=== PATIENT | female | born 1950 | race Caucasian/White ===

== ENCOUNTER 2020-09-17 01:07 | Emergency (ER) | payer MEDICARE, OTHER, SELFPAY ==
[2020-09-17 01:08] VITALS: BP 221/116; PULSE 62; RESP 18; TEMP 36.7; O2SAT 99; BMI 33.5
--- NOTE | 2020-09-17 01:21 | EKG12_ITS ---
Test Reason : CP Blood Pressure : / mmHG Vent. Rate : 064 BPM Atrial Rate : 064 BPM P-R Int : 116 ms QRS Dur : 130 ms QT Int : 444 ms P-R-T Axes : 088 -20 024 degrees QTc Int : 458 ms Normal sinus rhythm Right bundle branch block Septal infarct , age undetermined , cannot be excluded Abnormal ECG Confirmed by CROW PANIAGUA, DEMETRIO ([id number]), newspaper editor managing KEYA SALAZAR ([id number]) on 09/19/2020 9:21:52 AM Referred By: CORINE Confirmed By:DEMETRIO MARIA MD
--- NOTE | 2020-09-17 01:21 | RAD_ITS ---
STUDY: X-RAY CHEST REASON FOR EXAM: Female, 70 years old. chest pain TECHNIQUE: 1 view COMPARISON: None. FINDINGS: Cardiomediastinal silhouette is unremarkable. Costophrenic angles are sharp. Lungs are clear. The trachea is midline. There is no pneumothorax. The bones are grossly intact. RAD/Chest 1 View (Portable) IMPRESSION: No acute cardiopulmonary process. Electronically Signed: John Marin MD at 2:31 EDT Tel , Service support ,
[2020-09-17] MEDS: Mag Hydrox/Al Hydrox/Simeth 30 ML UDC PO (01:28)
[2020-09-17 01:30] LABS: Absolute Lymphocyte Count 2.57 X10^3/uL (0.83-4.51); Absolute Neutrophil Count 6.3 X10^3/uL (2.0-7.7); Basophil# 0.05 X10^3/uL; Basophil% 0.5 % (0-1); Eosinophil# 0.25 X10^3/uL; Eosinophils% 2.5 % (0-5); Hematocrit 41.2 % (37-47); Hemoglobin 13.7 g/dL (12.0-15.0); Lymphocyte # 2.57 X10^3/ul (0.83-4.51); Lymphocyte % 25.6 % (19-41); Mean Corp Hgb Conc 33.3 g/dL (32-36); Mean Corpuscular Hgb 28.7 pg (27.0-32.0); Mean Corpuscular Volume 86.2 fL (81-99); Mean Platelet Vol. 10.7 fl (6.2-12.0); NRBC Flagged by Analyzer 0 % (0-5); Neutrophil # 6.33 X10^3/uL (2.7-7.7); Neutrophil % 63.1 % (47-70); Platelet Count 265 K/mm3 (150-450); RBC Distribution Width CV 12.3 % (11.6-14.6); RBC Distribution Width SD 38.7 fl (35.1-43.9); Red Blood Count 4.78 M/mm3 (4.2-5.4)
--- NOTE | 2020-09-17 01:41 | EDS_ITS ---
HPI History of Present Illness Chief Complaint: Chest Pain Informant: patient Narrative Narrative: 70-year-old female presents the emergency room with epigastric pain. Symptoms awoke her out of bed at approximately 0030 hours. She describes it as a pain. She cannot clarify it anymore. She feels it slightly in the back. She states that she first thought it was indigestion and nausea but she does not feel that now. Patient had a [employer] blizzard at around 2030 hrs. Patient notes a history of hypertension. No other significant medical problems. She takes lisinopril 10 mg daily. [facility] Medical History Hypertension Home Medications lisinopril 10 mg PO DAILY 09/17/20 [History Last Taken Unknown] Allergy/AdvReac Type Severity Reaction Status Date / Time No Known Allergies Allergy Verified 02/12/17 14:04 Social History (Updated 09/17/20 @ 01:[address] Francisco Gong DO) Smoking Status: Never smoker substance use type: does not use ROS ROS ED Constitutional Constitutional ED: Denies chills or weight loss Eyes Eyes: Denies change in vision or diplopia ENT ENT ED: Denies ear pain, rhinorrhea or sore throat Cardiovascular Cardiovascular: Denies chest pain, orthopnea, palpitations or racing heartbeat Respiratory/Chest Respiratory/Chest: Denies cough, dyspnea or orthopnea Gastrointestinal Gastrointestinal: Reports abdominal pain; Denies diarrhea, nausea or vomiting Genitourinary Genitourinary ED: Denies dysuria, hematuria or urinary frequency Musculoskeletal Musculoskeletal: Denies arthralgias or myalgias Integumentary Denies abscess or rash Neurologic Neurologic: Denies headache(s) or weakness Psychiatric Psychiatric: Denies anxiety, depression, suicidal ideation or suicidal thoughts Endocrine Endocrinology: Denies polydipsia, polyphagia or polyuria Allergic/Immunologic Allergic/Immunologic ED: Denies mouth swelling, tongue swelling or urticaria EXAM Physical Exam Const Vital Signs: 09/17/20 01:08 09/17/20 02:17 09/17/20 03:06 Temperature 98.0 F Temperature Source Temporal Pulse Rate 62 59 L 71 Respiratory Rate 18 18 18 Blood Pressure 221/116 H 186/76 H 132/58 H Blood Pressure Mean 151 112 82 Pulse Ox 99 96 97 Oxygen Delivery Method Room Air Room Air Room Air 09/17/20 03:41 Temperature 96.9 F L Temperature Source Temporal Pulse Rate 65 Respiratory Rate Blood Pressure 138/67 H Blood Pressure Mean 90 Pulse Ox 97 Oxygen Delivery Method Room Air Positive well nourished and well developed General Appearance ED: well developed HEENT Reports normocephalic, head/scalp atraumatic and moist mucous membranes Eyes PERRL and EOMs intact bilaterally Neck no lymphadenopathy, supple and no JVD Resp normal respiratory effort and clear to auscultation bilaterally Cardio regular rate, regular rhythm and no murmurs GI normal to inspection, nondistended, normoactive bowel sounds and non-tender Palpation: soft Back/Spine no CVA tenderness and normal ROM Extremity normal to inspection General Extremety ED: Negative for edema General Extremity: Negative for edema Neuro oriented x3 and CN's II-XII intact bilaterally Sensorium / Orientation: alert Motor Exam: strength 5/5 throughout Psych mental status grossly normal Mood & Affect: Negative for depressed or tearful Skin no rashes or lesions noted and no wounds Heart Score History: Slightly/Non-Suspicious ECG: Normal Age: >/= 65 years Risk Factors: 1 or 2 Risk Factors Troponin: </= Normal Limit Score: 3 MDM MDM MDM Narrative Medical decision making narrative: My interpretation of the patient's chest x- ray is no acute process. D-dimer is negative. CBC BMP is normal. 2 sets of cardiac enzymes are negative. GI cocktail did not change the patient's symptoms. The patient's blood pressure came down to around 180 systolic. I gave her a 10 mg dose of hydralazine and she is down to 132/58. Patient reports that she is having worsening epigastric discomfort. Minimally tender just under the xiphoid process. No guarding or rebound. The abdomen is soft. Abdomen does not appear surgical. There is no right upper quadrant tenderness. There is no radiation of the pain. She is not having nausea. She wonders if it was her ice cream but that had a lot of peanuts in it. I will give her a dose of Bentyl. Patient is also concerned that she is having a fever. However her temperature is 96.9. Patient was given return instructions as well as follow-up for the hypertension. Lab Data Attestation: I reviewed the patient's lab results. Labs: Laboratory Results - last 24 hr 07/02/2609/17/20 09/17/20 01:18 01:18 01:27 WBC 10.0 RBC 4.78 Hgb 13.7 Hct 41.2 MCV 86.2 MCH 28.7 MCHC 33.3 RDW Std Deviation 38.7 RDW Coeff of Lance 12.3 Plt Count 265 MPV 10.7 Immature Gran % (Auto) 0.300 Neut % (Auto) 63.1 Lymph % (Auto) 25.6 Dukes % (Auto) 8.0 Eos % (Auto) 2.5 Baso % (Auto) 0.5 Absolute Neuts (auto) 6.3 Absolute Lymphs (auto) 2.57 Nucleated RBC % 0 D-Dimer Quant (PE/DVT) 0.38 Sodium 140 Potassium 3.9 Chloride 103 Carbon Dioxide 30.0 Anion Gap 7 BUN 19 H Creatinine 1.06 H Estim Creat Clear Calc 50.53 Est GFR (MDRD) Af Amer 66 Est GFR (MDRD) Non-Af 55 L BUN/Creatinine Ratio 17.9 Glucose 115 H Calcium 10.0 Troponin I High Sens 7.2 09/17/20 03:00 WBC RBC Hgb Hct MCV MCH MCHC RDW Std Deviation RDW Coeff of Lance Plt Count MPV Immature Gran % (Auto) Neut % (Auto) Lymph % (Auto) Dukes % (Auto) Eos % (Auto) Baso % (Auto) Absolute Neuts (auto) Absolute Lymphs (auto) Nucleated RBC % D-Dimer Quant (PE/DVT) Sodium Potassium Chloride Carbon Dioxide Anion Gap BUN Creatinine Estim Creat Clear Calc Est GFR (MDRD) Af Amer Est GFR (MDRD) Non-Af BUN/Creatinine Ratio Glucose Calcium Troponin I High Sens 9.0 Radiography Diagnostic Testing: Radiology Impression Chest X-Ray 09/17/20 01:21 IMPRESSION: No acute cardiopulmonary process. Electronically Signed: John Marin MD at 2:31 EDT Tel , Service support , EKG Initial EKG: Attestation: I personally reviewed and interpreted this EKG as follows: Comments: EKG demonstrates a normal sinus rhythm at a rate of 64. Noted right bundle branch block. Discharge Plan Triage Chief Complaint: Chest Pain ED Provider: Francisco Gong Dx/Rx/DC Orders Clinical Impression: Abdominal pain, Hypertensive urgency Instructions: Abdominal Pain, ED High Blood Pressure Hypertension Prescriptions: No Action lisinopril 10 mg Tablet 10 mg PO DAILY RF: 0 Primary Care Provider: Care Physician,No Primary Referrals: Parth Oropeza III, MD [STAFF PHYSICIAN] - 1 Week Care Physician,No Primary [Primary Care Provider] - Activity Restrictions/Additional Instructions: I would encourage you to monitor your blood pressure over the next week. If it continues to be high I would recommend you take those numbers to your family doctor. Return if worsening or any concerns. Disposition Disposition: Home, Self Care
[2020-09-17 01:49] LABS: Anion Gap 7 (5-15); BUN 19 mg/dL (7-18); BUN/Creat Ratio 17.9 RATIO (10-20); Chloride 103 mmol/L (98-107); Creatinine, Serum 1.06 mg/dL (0.55-1.02); EST Glomerular Filtration Rate 55 mL/min (>60); Est Glom Filt Rate - Afr Amer 66 mL/min (>60); Estimated Creatinine Clearance 50.53 ml/min; Glucose 115 mg/dL (74-106); Potassium 3.9 mmol/L (3.5-5.1); Sodium Level 140 mmol/L (136-145); Troponin-I HS 7.2 pg/mL (3.0-53.7)
[2020-09-17 01:49] LABS: D-Dimer Quantitative (DVT/PE) 0.38 FEU/ug/m (0.27-0.49)
[2020-09-17 02:17] VITALS: BP 186/76; PULSE 59; RESP 18; O2SAT 96
[2020-09-17] MEDS: hydrALAZINE 20 MG/ML Vial 10 MG IV (02:33)
[2020-09-17 03:06] VITALS: BP 132/58; PULSE 71; RESP 18; O2SAT 97
[2020-09-17 03:41] VITALS: BP 138/67; PULSE 65; TEMP 36.1; O2SAT 97
[2020-09-17] MEDS: Dicyclomine 10 MG Capsule 20 MG PO (03:43)
== END 2020-09-17 03:55 | disposition home or self-care (01) ==
PROVIDERS: Emergency Provider Emergency Medicine
DX: R10.13 Epigastric pain (principal); I16.0 Hypertensive urgency; I10 Essential (primary) hypertension; Z79.899 Other long term (current) drug therapy
CPT/HCPCS: 71045; 80048; 84484; 85025; 85379; 93005; 96374; 99285

== ENCOUNTER 2020-09-23 22:22 | Inpatient (IN) | payer MEDICARE, OTHER, SELFPAY ==
--- NOTE | 2020-09-23 00:20 | RAD_ITS ---
STUDY: X-RAY CHEST REASON FOR EXAM: Female, 70 years old. chest pain TECHNIQUE: Single AP portable view of the chest. COMPARISON: 09/17/2020. FINDINGS: There are subtle hazy density within the left lower lobe, cannot exclude focal pneumonia. There is no demonstrated pleural abnormality. Normal size heart. Normal mediastinum and lali. Normal visualized pulmonary arteries. Normal visualized aortic arch and descending thoracic aorta. Normal visualized thoracic spine. Normal visualized ribs, clavicles, and shoulders. There is no demonstrated abnormality of the visualized soft tissue structures of the upper abdomen. RAD/Chest 1 View (Portable) IMPRESSION: Cannot exclude focal pneumonia in the left lower lobe, otherwise no acute process. Clinical correlation recommended. Electronically Signed: Shima Vallecillo MD at 3:49 EDT , Service support ,
[2020-09-23 22:23] VITALS: BP 167/88; PULSE 65; RESP 18; TEMP 36.9; O2SAT 99; BMI 33.2
--- NOTE | 2020-09-23 22:33 | EKG12_ITS ---
Test Reason : CP Blood Pressure : / mmHG Vent. Rate : 066 BPM Atrial Rate : 066 BPM P-R Int : 168 ms QRS Dur : 110 ms QT Int : 418 ms P-R-T Axes : 072 -23 -05 degrees QTc Int : 438 ms Sinus rhythm with Premature atrial complexes Right bundle branch block Abnormal ECG Confirmed by CROW PANIAGUA, DEMETRIO ([id number]), art editor KEYA SALAZAR ([id number]) on 09/26/2020 12:32:05 PM Referred By: RANDALL Confirmed By:DEMETRIO MARIA MD
[2020-09-23 23:10] VITALS: BP 183/67; PULSE 63; RESP 19; O2SAT 99
--- NOTE | 2020-09-23 23:30 | EKG12_ITS ---
Test Reason : REPEAT CP Blood Pressure : / mmHG Vent. Rate : 062 BPM Atrial Rate : 062 BPM P-R Int : 146 ms QRS Dur : 116 ms QT Int : 424 ms P-R-T Axes : 078 -14 009 degrees QTc Int : 430 ms Normal sinus rhythm Incomplete right bundle branch block Confirmed by CROW PANIAGUA, DEMETRIO ([id number]), offline editor KEYA SALAZAR ([id number]) on 09/26/2020 12:28:46 PM Referred By: RANDALL Confirmed By:DEMETRIO MARIA MD
--- NOTE | 2020-09-23 23:37 | EDS_ITS ---
HPI HPI - GI History of Present Illness Chief Complaint: Chest Pain Detail of Chief Complaint: Epigastric abdominal pain not chest pain. Informant: patient Abdominal Pain/Flank Pain Onset: Today Timing: Intermittent Quality: Burning, Sharp and Stabbing Location: Epigastric Current Severity: Mild Maximum Severity: Mild Nausea/Vomiting/Emesis GI Symptom: Negative for Nausea and Vomiting Diarrhea/Melena/Hematochezia GI Symptom: Negative for Diarrhea and Melena Associated Symptoms Associated Symptoms: Negative for Dysuria, Frequency and Hematuria Narrative Narrative: 70-year-old female healthy history of hypertension. Complaining of epigastric dull pain that began at 8:00 tonight after she had ice cream. States she really did not eat a dinner tonight. Pain goes into her back. She was seen within the last week in the emergency department for chest pain that had a negative work-up. She denies any nausea vomiting or diarrhea. No fever or chills. No melena or hematemesis. No recent weight change. Never had any a bdominal surgeries. Prior similar symptoms: Yes Recent Illness/Hospitalization: No PFSH PFSH Medical History Chest pain CPAP (continuous positive airway pressure) dependence Hypertension Non-smoker Sleep apnea Home Medications lisinopril 5 mg PO DAILY 09/17/20 [History Last Taken Unknown] Multivit W/Fluoride 1 tab PO/SL DAILY 09/23/20 [History Last Taken Unknown] ferrous sulfate [Iron (ferrous sulfate)] 650 mg PO DAILY 09/23/20 [History Last Taken Unknown] Allergy/AdvReac Type Severity Reaction Status Date / Time No Known Allergies Allergy Verified 09/23/20 22:26 Social History Smoking Status: Never smoker substance use type: does not use ROS ROS ED ROS Narrative Epigastric abdominal pain without nausea, vomiting or diarrhea. Review of Systems ROS Unobtainable: Denies due to encephalopathy Constitutional Constitutional ED: Denies chills or fever(s) ENT ENT ED: Denies ear pain or sore throat Cardiovascular Cardiovascular: Denies chest pain Respiratory/Chest Respiratory/Chest: Denies dyspnea Gastrointestinal Gastrointestinal: Reports abdominal pain; Denies constipation, diarrhea, melena, nausea or vomiting Genitourinary Genitourinary ED: Denies dysuria or hematuria Musculoskeletal Musculoskeletal: Denies myalgias Integumentary Denies rash Neurologic Neurologic: Denies headache(s) Psychiatric Psychiatric: Denies depression Endocrine Endocrinology: Denies polyuria Hematologic/Lymphatic Hematologic/Lymphatic: Denies easy bruising Allergic/Immunologic Allergic/Immunologic ED: Denies urticaria EXAM Physical Exam Narrative Exam Narrative: Well-appearing older female vital signs are stable afebrile. She does not look septic or toxic. She is in no acute distress. H EENT exam is unremarkable. Lungs clear to auscultation. Heart regular rate and rhythm no murmur. Abdomen soft nondistended normal bowel sounds no peritoneal signs. Epigastric tenderness. Right upper and right lower quadrants are unremarkable Right pulsatile mass. No signs of obstruction. Patient moving all 4 extremities. Calves nontender no edema. Back nontender. Neurologically she is awake alert with no focal motor deficits. Const Vital Signs: 09/23/20 22:23 09/23/20 23:10 09/23/20 23:49 Temperature 98.5 F Temperature Source Temporal Pulse Rate 65 63 Respiratory Rate 18 19 H Respiratory Effort Normal Blood Pressure 167/88 H 183/67 H Blood Pressure Mean 114 105 Pulse Ox 99 99 99 Oxygen Delivery Method Room Air Room Air Room Air 09/24/20 00:00 09/24/20 01:00 09/24/20 02:00 Temperature Temperature Source Pulse Rate 69 62 69 Respiratory Rate 22 H 25 H 18 Respiratory Effort Blood Pressure 176/72 H 173/61 H 159/78 H Blood Pressure Mean 106 98 105 Pulse Ox 95 97 97 Oxygen Delivery Method Room Air Room Air Room Air Positive well nourished and well developed; Negative for unkempt General Appearance ED: well developed and NAD; Negative for unkempt HEENT Reports moist mucous membranes normocephalic and atraumatic; Negative for trauma or tenderness Eyes PERRL and EOMs intact bilaterally Neck no lymphadenopathy, supple and no JVD General: Negative for tenderness Resp normal respiratory effort and clear to auscultation bilaterally Auscultation: Negative for rales, rhonchi or wheezes Cardio regular rate, regular rhythm, S1 normal heart sound, S2 normal heart sound and no murmurs GI non-distended and no masses; Negative for non-tender GI Narrative: Epigastric tenderness only. No pulsatile mass. Inspection: Negative for abdominal distention Auscultation: normoactive bowel sounds Palpation: soft and tender; Negative for guarding, rigid or rebound tenderness present Back/Spine no CVA tenderness Extremity full ROM General Extremety ED: Negative for edema or tenderness General Extremity: Negative for edema Neuro No CN's II-XII intact bilaterally and moves all extremities Sensorium / Orientation: alert, oriented to person, oriented to place and oriented to time; Negative for orientation impaired, confused, lethargic or stuporous Motor Exam: strength 5/5 throughout; Negative for general weakness Psych mental status grossly normal and thought process normal Appearance: Negative for unkempt Skin Lesions: no lesions Rashes: no rashes MDM MDM MDM Narrative Medical decision making narrative: Older female in epigastric abdominal pain. Undergo a cardiac and abdominal work-up including abdominal CT. Repeat exam patient is doing well at 5 AM. She still does have tenderness in the right upper quadrant. Given her findings and concern for acute cholecystitis. Patient be started on IV antibiotics I have Dr. Buffy Flynn of general surgery on page for admission. I have discussed all this with the patient and her . Lab Data Attestation: I reviewed the patient's lab results. Lab results narrative: White count of 14.8. Hemoglobin 13. Electrolytes unremarkable gap 6 creatinine 1.1. Liver enzymes are unremarkable. Lipase 150. Troponin 5. EKGs x2 unremarkable. Chest x-ray unremarkable read by myself and the radiologist. CAT scan concerning for acute cholecystitis which would go along with the patient's symptoms. Labs: Laboratory Results - last 24 hr 09/23/20 09/23/20 23:44 23:44 WBC 14.8 H RBC 4.74 Hgb 13.6 Hct 41.1 MCV 86.7 MCH 28.7 MCHC 33.1 RDW Std Deviation 39.3 RDW Coeff of Lance 12.4 Plt Count 255 MPV 10.9 Immature Gran % (Auto) 0.300 Neut % (Auto) 82.4 H Lymph % (Auto) 10.8 L [place] % (Auto) 5.6 Eos % (Auto) 0.5 Baso % (Auto) 0.4 Absolute Neuts (auto) 12.2 H Absolute Lymphs (auto) 1.60 Nucleated RBC % 0 Sodium 137 Potassium 4.1 Chloride 102 Carbon Dioxide 29.0 Anion Gap 6 BUN 21 H Creatinine 1.18 H Estim Creat Clear Calc 45.39 Est GFR (MDRD) Af Amer 58 L Est GFR (MDRD) Non-Af 48 L BUN/Creatinine Ratio 17.8 Glucose 124 H Calcium 9.9 Total Bilirubin 0.30 Direct Bilirubin 0.13 AST 24 ALT 25 Alkaline Phosphatase 79 Troponin I High Sens 5.8 Total Protein 8.3 H Albumin 4.0 Globulin 4.3 H Lipase 150 Radiography Diagnostic Testing: Radiology Impression Chest X-Ray 09/23/20 00:20 IMPRESSION: Cannot exclude focal pneumonia in the left lower lobe, otherwise no acute process. Clinical correlation recommended. Electronically Signed: Shima Vallecillo MD at 3:49 EDT , Service support , Abdomen/Pelvis CT 09/24/20 23:36 IMPRESSION: Multiple gallstones with fluid surrounding the gallbladder mild thickening of the wall raising the concern for acute cholecystitis. Recommend follow-up with HIDA scan. Decompression of the colon with thickening of the wall, nonspecific. Difficult to exclude colitis in the appropriate clinical context. Electronically Signed: Shima Vallecillo MD at 3:53 EDT , Service support , Portable 1 view chest x-ray is unremarkable read by myself. Radiologist mentions questionable left lower lobe infiltrate. That is not consistent with the patient's history, physical exam and I do not believe that to be true on my interpretation of the x-ray. Rhythm Strip Rhythm Strip: Sinus Rhythm Rate: 66 Ectopy: PAC(s) EKG Initial EKG: Attestation: I personally reviewed and interpreted this EKG as follows: Interpretation: Sinus Rhythm and No Acute Injury Pattern Comments: Normal sinus rhythm rate of 66 no acute signs of IL or ischemia. Prior EKG tracings: not available for review Follow-up EKG: Attestation: I personally reviewed and interpreted this EKG as follows: Interpretation: Sinus Rhythm and No Acute Injury Pattern Comments: Repeat EKG showed a normal sinus rhythm rate of 62 was unchanged from the first. Discharge Plan Dx/Rx/DC Orders Clinical Impression: Abdominal pain, Acute calculous cholecystitis, Leukocytosis Disposition Disposition: [facility] Care [facility]
[2020-09-23 23:49] VITALS: O2SAT 99
[2020-09-23 23:49] LABS: Absolute Neutrophil Count 12.2 X10^3/uL (2.0-7.7); Basophil# 0.06 X10^3/uL; Basophil% 0.4 % (0-1); Eosinophil# 0.07 X10^3/uL; Eosinophils% 0.5 % (0-5); Hematocrit 41.1 % (37-47); Hemoglobin 13.6 g/dL (12.0-15.0); Lymphocyte % 10.8 % (19-41); Mean Corp Hgb Conc 33.1 g/dL (32-36); Mean Corpuscular Hgb 28.7 pg (27.0-32.0); Mean Corpuscular Volume 86.7 fL (81-99); Mean Platelet Vol. 10.9 fl (6.2-12.0); Monocyte# 0.83 X10^3/uL; Monocyte% 5.6 % (0-10); NRBC Flagged by Analyzer 0 % (0-5); Neutrophil # 12.22 X10^3/uL (2.7-7.7); Neutrophil % 82.4 % (47-70); Platelet Count 255 K/mm3 (150-450); RBC Distribution Width CV 12.4 % (11.6-14.6); RBC Distribution Width SD 39.3 fl (35.1-43.9); Red Blood Count 4.74 M/mm3 (4.2-5.4); White Blood Count 14.8 K/mm3 (4.4-11.0)
[2020-09-23] MEDS: 0.9% Normal Saline 1,000 ML 1000 ML IV (23:51)
[2020-09-24] VITALS (12 sets, daily range): BP systolic 113–176; BP diastolic 53–78; PULSE 54–78; RESP 14–25; TEMP 36.6–37.1; O2SAT 93–100; BMI 33.5
[2020-09-24] MEDS: morphine 8 MG/ML Syringe IV (00:01)
[2020-09-24] MEDS: Ondansetron 4 MG/2 ML Vial IV (00:01)
[2020-09-24 00:11] LABS: AST(SGOT) 24 U/L (15-37); Alanine Aminotransfer ALT/SGPT 25 U/L (13-56); Alkaline Phosphatase 79 U/L (45-117); Anion Gap 6 (5-15); BUN 21 mg/dL (7-18); BUN/Creat Ratio 17.8 RATIO (10-20); Bilirubin, Direct 0.13 mg/dL (0.00-0.30); Calcium,Total 9.9 mg/dL (8.5-10.1); Chloride 102 mmol/L (98-107); Creatinine, Serum 1.18 mg/dL (0.55-1.02); EST Glomerular Filtration Rate 48 mL/min (>60); Est Glom Filt Rate - Afr Amer 58 mL/min (>60); Estimated Creatinine Clearance 45.39 ml/min; Globulin 4.3 g/dL (2.2-4.2); Glucose 124 mg/dL (74-106); Lipase 150 U/L (73-393); Potassium 4.1 mmol/L (3.5-5.1); Protein, Total 8.3 g/dL (6.4-8.2); Sodium Level 137 mmol/L (136-145); Troponin-I HS 5.8 pg/mL (3.0-53.7)
[2020-09-24] MEDS: 0.9% Normal Saline 1,000 ML 125 ML IV ×2 (06:49→16:16)
--- NOTE | 2020-09-24 07:59 | PCM.HP.BLA ---
History and Physical Date of Admission: 09/24/20 CHIEF COMPLAINT: abdominal pain HISTORY OF PRESENT ILLNESS: 70 y/o WF presents to [facility] ED with complaint of epigastric abdominal pain. She had similar episode several days ago after eating ice cream. She states that she had this episode of pain after eating ice cream. She did not know that she had gallstones before. Workup in the ED - elevated WBC of 14.8k with left shift of differential. Also elevated BUN/creat of 21 and 1.18. Normal LFT[address] scan obtained which reveals multiple gallstones, some pericholecystic fluid, mild wall thickening She is admitted to the hospital for acute cholecystitis. 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 Heme - denies spontaneous/prolonged bleeding Psych - denies hallucinations PHYSICAL EXAMINATION: Vitals - BP 162/60 HR 78 RR 17 Temp 98.7F General - WD/WN WF in no apparent distress, alert and oriented HEENT - no evidence of infection/trauma Resp - normal respiratory excursion, no adventitial sounds noted, no labored breathing noted Cardiac - regular Abdomen - tender in epigastrium but no peritoneal signs Extremities - no pitting edema noted Neuro - non foca Psych - calm and appropriate IMPRESSION: cholelithiasis RUQ abdominal pain leukocytosis DISCUSSION/PLAN: Patient presents with acute cholecystitis/cholelithiasis. I have recommended laparoscopic cholecystectomy, possible cholangiograms to patient. I have described the procedure to her. I have counseled her as to the risks of the procedure, including but not limited to: infection, bleeding, injury to any blood vessels/nerves, injury to bowel and/or bladder, injury to any intraabdominal organs such as the liver/spleen, injury to the bile ducts, bile leakage, intraabdominal abscess/bleeding, incisional trocar hernias, wound infections, etc. - she understands. She wishes to proceed. I have answered all her questions and she has no further questions. She will be placed on the schedule for surgery tomorrow afternoon. Continue IV antibiotics Regular diet, but NPO 8 hr prior to procedure.
[2020-09-24] MEDS: Lisinopril 5 MG Tablet PO (10:05)
--- NOTE | 2020-09-24 10:10 | CASEMGMT ---
Social Work Note Per bus system operator questions, pt has completed HCPOA and LW, has not provided copy to [facility] and pt is unable to bring in copies. Frida Bowden BUILDING SERVICES ENGINEER, BUSINESS SERVICES SALES REPRESENTATIVE
[2020-09-24] MEDS: Acetaminophen 325 MG Tablet 650 MG PO (16:16)
[2020-09-24] MEDS: HYDROcodone Bitartrate/Apap 5/325 Tablet PO (22:12)
--- NOTE | 2020-09-24 23:36 | CT_ITS ---
STUDY: CT ABDOMEN AND PELVIS WITH CONTRAST REASON FOR EXAM: Female, 70 years old. epigastric abd pain RADIATION DOSAGE (If Supplied By Facility): CTDIvol = ( 18.39 ) mGy, DLP = ( 1173.62 ) mGycm TECHNIQUE: Transaxial images were obtained from the dome of the diaphragm to the symphysis pubis without oral contrast. IV 100mL [id number]-300 was administered. Sagittal and coronal images were reconstructed. Individualized dose optimization techniques were used for this CT. COMPARISON: None. FINDINGS: The visualized lung bases are unremarkable. The visualized portions of the heart are within normal limits. Normal liver. The gallbladder is distended with multiple stones, largest averaging approximately 2.1 cm. There is fluid surrounding the gallbladder with mild thickening of the wall for acute cholecystitis. Normal spleen. Normal pancreas. Normal bilateral adrenal glands. Normal right kidney. Normal left kidney. Normal visualized stomach. Normal small intestine. There are areas of the colon 20 ascending portion and descending colon with borderline thickening of the wall and decompression, nonspecific. Cannot exclude mild colitis. The appendix is visualized and appears normal. Normal abdominal aorta. Normal inferior vena cava. Normal retroperitoneum. Normal urinary bladder. Uterus is anteverted. Normal abdominal wall. There are diffuse degenerative changes of the visualized lumbar spine. CT/Abdomen/Pelvis W IV Cont ONLY IMPRESSION: Multiple gallstones with fluid surrounding the gallbladder mild thickening of the wall raising the concern for acute cholecystitis. Recommend follow-up with HIDA scan. Decompression of the colon with thickening of the wall, nonspecific. Difficult to exclude colitis in the appropriate clinical context. Electronically Signed: Shima Vallecillo MD at 3:53 EDT , Service support ,
[2020-09-25] VITALS (13 sets, daily range): BP systolic 123–160; BP diastolic 55–97; PULSE 56–98; RESP 16–18; TEMP 36.2–37.2; O2SAT 89–100; BMI 33.5
[2020-09-25] MEDS: 0.9% Normal Saline 1,000 ML 125 ML IV ×3 (02:15→17:59)
[2020-09-25 05:45] LABS: Absolute Lymphocyte Count 1.77 X10^3/uL (0.83-4.51); Absolute Neutrophil Count 4.8 X10^3/uL (2.0-7.7); Basophil# 0.03 X10^3/uL; Basophil% 0.4 % (0-1); Eosinophil# 0.19 X10^3/uL; Eosinophils% 2.6 % (0-5); Hematocrit 36.5 % (37-47); Hemoglobin 11.9 g/dL (12.0-15.0); Lymphocyte # 1.77 X10^3/ul (0.83-4.51); Lymphocyte % 24.1 % (19-41); Mean Corp Hgb Conc 32.6 g/dL (32-36); Mean Corpuscular Hgb 28.8 pg (27.0-32.0); Mean Corpuscular Volume 88.4 fL (81-99); Mean Platelet Vol. 11.4 fl (6.2-12.0); Monocyte# 0.58 X10^3/uL; Monocyte% 7.9 % (0-10); NRBC Flagged by Analyzer 0 % (0-5); Neutrophil # 4.75 X10^3/uL (2.7-7.7); Neutrophil % 64.6 % (47-70); Platelet Count 202 K/mm3 (150-450); RBC Distribution Width CV 12.5 % (11.6-14.6); RBC Distribution Width SD 40.3 fl (35.1-43.9); Red Blood Count 4.13 M/mm3 (4.2-5.4); White Blood Count 7.4 K/mm3 (4.4-11.0)
[2020-09-25 06:20] LABS: Anion Gap 3 (5-15); BUN 16 mg/dL (7-18); BUN/Creat Ratio 14.5 RATIO (10-20); Calcium,Total 7.9 mg/dL (8.5-10.1); Chloride 110 mmol/L (98-107); EST Glomerular Filtration Rate 52 mL/min (>60); Est Glom Filt Rate - Afr Amer 63 mL/min (>60); Estimated Creatinine Clearance 48.69 ml/min; Glucose 101 mg/dL (74-106); Potassium 4.1 mmol/L (3.5-5.1); Sodium Level 140 mmol/L (136-145)
--- NOTE | 2020-09-25 10:10 | CASEMGMT ---
RN CM Face to Face with patient for initial transition planning/care coordination assessment. RN CM introduced self and role at [facility]. Patient lying in bed, alert and oriented. Patient willing to participate in assessment and is able to answer all questions appropriately. Care providers, pharmacy, and demographics verified. Patient wishes to discharge home, denies need for home health at this time. Patient states she has no further needs or concerns at this time. CM to follow for discharge planning needs that may arise. PCP: Artemio Specialists: Ishmael Ortiz Pharmacy: [facility] Insurance: [employer], [employer] Prescription Benefit: yes Living Will/HPOA: yes, Uli Mott LNOK: Living Arrangements: Patient lives with in a single story home with 2 steps and railing to enter the home. Patient states she is independent at home. Transportation: self/ DME/HHC: Patient states she has cane, walker, and cpap. Patient denies previous HHC or SNF. Disposition Plan: Patient to discharge home with family support and follow-up plans in place. Frida MONREAL, RN, CM
--- NOTE | 2020-09-25 14:00 | NURSING ---
1330, off unit via bed for surgery. spouse with pt
--- NOTE | 2020-09-25 14:50 | GALL_PTH ---
PATIENT: MICHELLE RAMIREZ LOC: MS3 U#:[id number] AGE/SX: 70/F ROOM: DE312 RE09/24/[address]: Dr. Buffy Flynn MD : [id number] BED: 1 DIS: 09/26/2020 SPEC #: [id number] RECD: 09/26/20 09:23 STATUS: NEVIN RETeresa #: [id number] SID: 09/25/20 14:[address]: Buffy Flynn DEPT: SURGICAL PATHOLOGY RECD BY: Stephanie Hoang ENTERED: 09/26/20 10:45 SP TYPE: KELSEY SOUZA DR: Navdeep Ulloa MD Tissues: Gallbladder, NOS Procedures: Surgery Specimen Level III HEADER OPERATION: Laparoscopic cholecystectomy PRE-OP DIAGNOSIS: Acute cholecystitis, cholelithiasis TISSUE SUBMITTED: Gallbladder MICROSCOPIC DIAGNOSIS Gallbladder, cholecystectomy: Acute and chronic cholecystitis and cholelithiasis. SJ:junior 09/27/2020 MICROSCOPIC DESCRIPTION Slides are reviewed. GROSS DESCRIPTION Received is one container labeled with the patient's name and designated gallbladder. The specimen consists of a previously, partially opened gallbladder measuring 10 cm in length and up to 3 cm in diameter. The external surface is pink-balderas, smooth and glistening for the most part. Focally it is granular, hemorrhagic and contains cautery artifact. No bile is identified. Present in the container and also in the gallbladder are multiple, multifaceted to irregular brownish-black stones measuring in aggregate 3.5 x 3 x 1.5 cm and 0.5 to 2 cm in greatest dimension. The gallbladder wall measures up to 0.3 cm in thickness. Barbering Instructor sections from the gallbladder and the cystic duct are submitted in one cassette. / SJ:junior 09/26/20 TC:2 [facility]: [id number]
[2020-09-25] MEDS: Lactated Ringers 1,000 ML 100 ML IV (15:00)
--- NOTE | 2020-09-25 17:01 | OP.PCM_ITS ---
Report of Operation Date of Procedure: 09/25/20 Pre-Operative Diagnosis: cholelithiasis, acute cholecystitis Post-Operative Diagnosis: same Surgery/Procedure Performed:: laparoscopic cholecystectomy Description of Surgical Findings:: acute cholecystitis with thickened gallbladder wall Surgeon: Buffy Flynn stocking inspector: Anika Cheng Type of Anesthesia: General Anesthesiologist: Malik Heath Specimen's removed: gallbladder and contents Drains: none Estimated Blood Loss (mL): 20 ml Fluids Replaced: 1000 ml RL Description of Procedure: After informed consent was given, the patient was br ought to the Operating Room. Appropriate time out protocol was followed. The patient was placed in the supine position. The patient was then placed under general endotracheal anesthesia by the anesthesia provider. The abdomen was then prepped with a sterile surgical skin preparation and sterile surgical drapes were placed. An area superior to the umbilical dimple was grasped with penetrating clamps and the skin and subcutaneous tissues were infiltrated with local anesthetic with epinephrine. A skin incision was then made with a 15 blade scalpel. The anterior abdominal wall was elevated and a Veress needle was carefully inserted into the intraabdominal cavity. It was checked to be in the proper position with a normal saline drop test. A CO2 pneumoperitoneum was then created. Once this was achieved, then the Veress needle was removed and an 11mm trocar was placed in its stead. A 10mm laparoscope was then inserted into the trocar and careful attention was directed to the intraabdominal contents. There was no evidence of injury to any intraabdominal organs from insertion of the Veress needle or the trocar. Under direct visualization, a 5mm subxiphoid trocar and two lateral 5mm right subcostal trocars were placed. The skin and subcutaneous tissues at these sites were infiltrated with local anesthetic with epinephrine prior to placement of these trocars. Attention was then directed to the right upper quadrant of the abdomen. The gallbladder was distended and therefore the contents were aspirated to be able to grasp the gallbladder for dissection. The contents were consistent with gallbladder hydrops. The gallbladder wall was thickened. There was inflammatory changes to the wall with edema consistent with acute cholecystitis. Graspers were placed in the lateral trocars to grasp the distal aspect of the gallbladder and direct it cephalad and to grasp the gallbladder at Coronel?s pouch and direct it laterally. Dissection then began on the proximal gallbladder continuing down to the area of the triangle of Calot to bluntly dissect out the cystic duct. The neck of the gallbladder was identified and blunt dissection continued to dissect out a segment of the cystic duct. A clip was then placed on the neck of the gallbladder. Two clips were placed proximally and the cystic duct was then transected. The cystic artery was visualized and bluntly isolated and then two clips were placed proximally and one clip distally and then it was transected between the proximal and distal clips. The gallbladder was then from the liver bed using electrocautery. This took some time due to the dense inflammation of the gallbladder adherent to the liver bed. Once from the liver bed, it was placed in an Endobag and then brought out via the umbilical port. It was then forwarded to pathology for analysis. The liver bed was carefully examined. There was no evidence of bile leakage or bleeding. The cystic duct stump and cystic artery stump had their clips intact and there was no evidence of bile leakage or bleeding. Because of inflammatory oozing, surgicel was applied to the liver bed. The remainder of the abdomen was grossly normal. The CO2 was released and all trocars removed intact. The periumbilical fascia was approximated with a aphoff-sm-pebfz 0 vicryl suture. All skin incision were closed with 4-0 monocryl in a subdermal fashion. Cavilol and Steristrips were used to reinforce the skin closure. Sterile dressings were applied to all wounds. Sponge, needle and instrument count was verified and correct at time of skin closure. The patient was extubated and brought to the Recovery Room in stable condition. Complications none noted Admit VTE Documentation VTE Present on Admission: Yes VTE Mechan Device Prophylaxis: SCD's
[2020-09-25] MEDS: Ketorolac 30 MG/ML Syringe IV (17:48)
[2020-09-25] MEDS: HYDROcodone Bitartrate/Apap 5/325 Tablet PO (19:10)
[2020-09-26] MEDS: 0.9% Normal Saline 1,000 ML 125 ML IV (02:04)
[2020-09-26 02:05] VITALS: BP 113/60; PULSE 69; RESP 18; TEMP 37.1; O2SAT 98
[2020-09-26 06:33] VITALS: BP 136/67; PULSE 76; RESP 18; TEMP 37; O2SAT 97
[2020-09-26] MEDS: Acetaminophen 325 MG Tablet 650 MG PO (06:49)
--- NOTE | 2020-09-26 06:53 | PCM.PN.SRG ---
Subjective Subjective Patient notes minimal pain of the abdomen required oxygen supplementation through the night feels hungry Objective Data Objective Data Vital Signs: Vital Signs Temp Pulse Resp BP Pulse Ox 98.6 F 76 18 136/67 H 97 09/26/20 06:33 09/26/20 06:33 09/26/20 06:33 09/26/20 06:33 09/26/20 06:33 Oxygen Flow Rate (L/min) 2 Oxygen Delivery Method Nasal Cannula Weight: 100.074 kg Body Mass Index (BMI) 33.5 Intake & Output: Intake and Output for Last 24 Hours 09/24/20 09/25/20 09/26/20 23:59 23:59 23:59 Intake Total 2156.25 / 2156.25 4012.50 / 4462.50 1700 / 1700 Output Total 500 / 500 Balance 2156.25 / 2156.25 4012.50 / 4162.50 1200 / 1200 Lab / Micro Data Result Diagrams: 09/25/20 05:02 09/25/20 05:02 Rhythm Strip Rhythm Strip: Sinus Rhythm Rate: 66 Ectopy: PAC(s) Physical Exam Narrative abdomen is soft and benign ecchymoses at trocar sites, minimal seepage at dressing sites
--- NOTE | 2020-09-26 06:57 | DCINST_ITS ---
Discharge Instructions Follow Up Care Test Results: Test results from this visit will be discussed in further detail at your follow-up appointment, if applicable. Discharge Plan Admission Admit Date/Time: 09/24/20 15:49 Attending Provider: Buffy Flynn Primary Care Provider: Navdeep Ulloa Instructions Additional Instructions / Restrictions: Recommended pain control regimen - May take 600 mg ibuprofen (Motrin) and then in 3-4 hours, may take 650 mg acetaminophen (Tylenol), then in 3-4 hours may take 600 mg ibuprofen, then in 3- 4 hours may take 650 mg acetaminophen and so on for 2-3 days May take narcotic pain medication for pain that is not controlled by above and at night for comfort through the night Leave dressings in place May shower, do not scrub in the areas of the dressings as they may unravel. If they become overly soiled you may remove them but leave incision site open to air. Do not soak - no tub baths/swimming Ice applied to areas of discomfort may help No lifting/pushing/pulling greater than 20 pounds for two weeks. Regular diet as tolerated, drink plenty of fluids. Avoid carbonated beverages for a few days as this will cause abdominal bloating and thus discomfort after our surgery. Please call my office for an appointment to see me in 1-2 weeks. Office number is If any questions, please call my office at and ask the tube sizer and cutter operator for the general surgery nurses desk Discharge Orders/Prescriptions Prescriptions: New hydrocodone-acetaminophen 5-325 mg tablet 1 tab PO Q8H 5 Days Qty: 15 RF: 0 No Action lisinopril 10 mg Tablet 5 mg PO DAILY RF: 0 ferrous sulfate [Iron (ferrous sulfate)] 325 mg (65 mg iron) Tablet 650 mg PO DAILY RF: 0 Multivit W/Fluoride 1 tab PO/SL DAILY RF: 0 calcium carbonate-vitamin D3 [Calcium + D] 600 mg(1,500mg) -200 unit Tablet 1 tab PO BID RF: 0 Vitamin C 100 mg Tablet 100 mg PO DAILY RF: 0 fiber Capsule 3 cap PO DAILY RF: 0 cholecalciferol (vitamin D3) [Vitamin D3] 50 mcg (2,000 unit) Capsule 2,000 unit PO DAILY RF: 0 Referrals / Follow Up: Navdeep Ulloa MD [Primary Care Provider] -
[2020-09-26 08:13] VITALS: BP 145/50; PULSE 61; RESP 18; TEMP 36.6; O2SAT 95
--- NOTE | 2020-09-26 09:55 | PCM.DC.BLA ---
Discharge Summary Date of Admission: 09/24/20 Date of Discharge: 09/26/20 Summary: 70 y/o WF admitted for epigastric abdominal pain. Findings in the ED - cholelithiasis. Patient admitted with diagnosis of cholelithiasis with acute cholecystitis. Patient was placed on IV antibiotics. She underwent laparoscopic cholecystectomy on 09/25/2020 and tolerated procedure well. Patient was discharged to home the next day. Meaningful Use Info Meaningful Use Diagnoses (Choose all that apply): None applicable Discharge Plan Admission Admit Date/Time: 09/24/20 15:49 Attending Provider: Buffy Flynn Primary Care Provider: Navdeep Ulloa Instructions Additional Instructions / Restrictions: Recommended pain control regimen - May take 600 mg ibuprofen (Motrin) and then in 3-4 hours, may take 650 mg acetaminophen (Tylenol), then in 3-4 hours may take 600 mg ibuprofen, then in 3-4 hours may take 650 mg acetaminophen and so on for 2-3 days May take narcotic pain medication for pain that is not controlled by above and at night for comfort through the night Leave dressings in place May shower, do not scrub in the areas of the dressings as they may unravel. If they become overly soiled you may remove them but leave incision site open to air. Do not soak - no tub baths/swimming Ice applied to areas of discomfort may help No lifting/pushing/pulling greater than 20 pounds for two weeks. Regular diet as tolerated, drink plenty of fluids. Avoid carbonated beverages for a few days as this will cause abdominal bloating and thus discomfort after our surgery. Please call my office for an appointment to see me in 1-2 weeks. Office number is If any questions, please call my office at and ask the chalk molding machine operator for the general surgery nurses desk Discharge Orders/Prescriptions Prescriptions: New hydrocodone-acetaminophen 5-325 mg tablet 1 tab PO Q8H 5 Days Qty: 15 RF: 0 No Action lisinopril 10 mg Tablet 5 mg PO DAILY RF: 0 ferrous sulfate [Iron (ferrous sulfate)] 325 mg (65 mg iron) Tablet 650 mg PO DAILY RF: 0 Multivit W/Fluoride 1 tab PO/SL DAILY RF: 0 calcium carbonate-vitamin D3 [Calcium + D] 600 mg(1,500mg) -200 unit Tablet 1 tab PO BID RF: 0 Vitamin C 100 mg Tablet 100 mg PO DAILY RF: 0 fiber Capsule 3 cap PO DAILY RF: 0 cholecalciferol (vitamin D3) [Vitamin D3] 50 mcg (2,000 unit) Capsule 2,000 unit PO DAILY RF: 0 Referrals / Follow Up: Navdeep Ulloa MD [Primary Care Provider] - Disposition Discharge Orders: Discharge Patient (Routine); Ordered 09/26/20 Ordered By: Dr. Buffy Flynn
[2020-09-26] MEDS: Lisinopril 5 MG Tablet PO (10:10)
[2020-09-26 13:05] VITALS: BP 111/38; PULSE 65; RESP 18; TEMP 36.6; O2SAT 100
== END 2020-09-26 13:30 | disposition home or self-care (01) | DRG 418 ==
LOC: ED 09-24 05:28 → MS3 09-24 05:50
PROVIDERS: Anesthesiology; Admitting Provider Surgery; Emergency Provider Emergency Medicine; PCP Internal Medicine; Visit Provider Surgery
PROC: 0FT44ZZ Resection of Gallbladder, Percutaneous Endoscopic Approach (ICD-10-PCS; CPT 47610; principal; 2020-09-25 14:30)
DX: K80.00 Calculus of gallbladder with acute cholecystitis without obstruction (principal); K82.1 Hydrops of gallbladder; I10 Essential (primary) hypertension; E66.9 Obesity, unspecified; G47.33 Obstructive sleep apnea (adult) (pediatric); Z68.33 Body mass index [BMI] 33.0-33.9, adult; Z79.899 Other long term (current) drug therapy; H91.92 Unspecified hearing loss, left ear
CPT/HCPCS: 36415; 71045; 74177; 80048; 80076; 83690; 84484; 85025; 88304; 93005; 99285; J7030; J7050; J7120; Q9967; A4216; J2405

== ENCOUNTER 2024-07-06 13:28 | Inpatient (IN) | payer MEDICARE, OTHER, SELFPAY ==
[2024-07-06 13:48] VITALS: BP 128/65; PULSE 71; RESP 18; TEMP 36.8; O2SAT 97; BMI 33.7
--- NOTE | 2024-07-06 14:07 | NURSING ---
Clamp Operator Note; Activity Asset: Bekah Tristan is independent in her choice of daily activities. Her family brought in her puzzle books to work on. They will visits along w/her leather flesher from [employer]. She welcomes visit from our hobber and therapy dog when available. When not resting and therapy she will also watch tv and read. Staff will encourage social activities, remind her of weekly activities and respect her right to say no.
[2024-07-06 14:15] VITALS: BMI 35.7
[2024-07-06] MEDS: oxyCODONE 5 MG Tablet PO ×2 (18:13→21:59)
--- NOTE | 2024-07-06 20:22 | HP.PCM_ITS ---
HPI - General General Date of Admission: 07/06/24 Date of Service: 07/06/24 Chief Complaint: Here for rehabilitation. HPI Narrative MICHELLE RAMIREZ, is a 74 Female who presents with followin06/30/2024 Admit to [facility]. 06/30/2024 Dr. Bergeron performed robotic assisted right total hip arthroplasty. 07/01/2024 SCD, Eliquis 2.5mg bid x 4 days for DVT prophylaxis. Duricef 500mg bid x 2 weeks for prophylaxis. 07/02/2024 Eliquis 2.5mg bid x 4 days, then 5mg bid for Atrial fibrillation/DVT prophylaxis. Pain control. 07/02/2024 Atrial fibrillation with RVR, HR 160 to 170, Asymptomatic, Blood pressure stable. Metoprolol 5mg IVP x 3, Digoxin 125mcg given. Metoprolol 5mg IVP every 4 hours as needed for Afib with RVR. Check magnesium, consider increasing Metoprolol PO. 07/03/2024 Disposition pending medical clearance. 07/04/2024 PT recommends SNF. 50% PWB right lower extremity, posterior hip precautions. Duricef 500ng bid x 2 weeks infection prophylaxis. Pain control with PO/IV medications. 07/05/2024 Pre-CERT SNF. Await SNF. 07/06/2024 Admit to TCU with debility, here for rehabilitation, strengthening, prior to discharge home with . [facility] Medical History (Updated 07/06/24 @ 20:[address] New Bear MD) Hearing loss, left Non-smoker Sleep apnea CPAP (continuous positive airway pressure) dependence Chest pain Hypertension Home Medications ?Medication ?Instructions ?Recorded ?Last Taken ?Type Multivit W/Fluoride 1 tab PO/SL DAILY supplement 09/23/20 09/23/20 History ferrous sulfate 325 mg (65 mg 650 mg PO DAILY suppleme nt 09/23/20 09/23/20 History iron) tablet (Iron (ferrous sulfate)) ascorbic acid (vitamin C) 100 mg 500 mg PO DAILY suppl ement 09/24/20 07/06/24 08:00 History tablet (Vitamin C) calcium 600 mg (as 1 tab PO BID supplement 09/0609/23/20 History carbonate)-vitamin D3 5 mcg (200 unit) tablet cholecalciferol (vitamin D3) 50 2,000 unit PO DAILY frederick pplement 09/24/20 09/23/20 History mcg (2,000 unit) capsule (Vitamin D3) fiber 3 cap PO DAILY supplement 09/23/20 History acetaminophen 500 mg tablet 1,000 mg PO Q8H PRN PRN pa in 07/06/24 07/06/24 04:20 History apixaban 5 mg tablet (Eliquis) 5 mg PO BID Blood Thinn er 07/06/24 07/06/24 08:00 History atorvastatin 10 mg tablet 10 mg PO QHS cholesterol Unknown History cefadroxil 500 mg capsule 500 mg PO Q12H Antibiotic 0 07/06/24 Unknown History diltiazem HCl 300 mg 300 mg PO DAILY Heart 07/06/24 08:00 History capsule,extended release 24 hr docusate sodium 100 mg capsule 100 mg PO BID PRN Const ipation 07/06/24 Unknown History hydrocortisone 2.5 % topical cream 1 applic topical BI D rash 07/06/24 07/06/24 08:00 History magnesium hydroxide 400 mg/5 mL 30 ml PO DAILY PRN con stipation 07/06/24 07/05/24 05:20 History oral suspension metoprolol succinate 25 mg 100 mg PO DAILY Afib 07/06/24 08:00 History tablet,extended release 24 hr multivitamin (Daily Multi-Vitamin 1 tab PO DAILY Suppl ement 07/06/24 Unknown History tablet) oxycodone 5 mg tablet 5 - 10 mg PO Q6H PRN pain (s zeyad 07/06/24 07/06/24 10:25 History score 7-10) pantoprazole 40 mg tablet,delayed 40 mg PO DAILY GERD 07/06/24 Unknown History release polyethylene glycol 3350 17 17 g PO DAILY PRN constipa tion 07/06/24 Unknown History gram/dose oral powder Allergy/AdvReac Type Severity Reaction Status Date / Time No Known Allergies Allergy Verified 09/23/20 22:26 Family History (Updated 07/06/24 @ 20:[address] New Bear MD) Mother Hypertension Asthma Diabetes COPD (chronic obstructive pulmonary disease) Crohn's disease Father , at 82. Non-Hodgkin lymphoma CHF (congestive heart failure) CVA (cerebral vascular accident) Sister CHF (congestive heart failure) Sister Diabetes Sister Hypertension Sister Fibromyalgia Sister Kidney disease Surgical History (Updated 07/06/24 @ 20:[address] New Bear MD) History of total right hip arthroplasty History of colonoscopy History of tonsillectomy History of left mastoidectomy History of laparoscopy History of hysteroscopy History of laparoscopic cholecystectomy S/P tubal ligation Social History (Updated 07/06/24 @ 20:[address] New Bear MD) household members: spouse Smoking Status: Never smoker alcohol intake: never substance use type: does not use ROS Constitutional Constitutional: Reports weakness; Denies chills, fever(s) or weight gain ENT HEENT: Denies headache(s), nasal congestion or nasal discharge Cardiovascular Cardiovascular: Denies chest pain or palpitations Respiratory/Chest Respiratory/Chest: Denies cough, excessive phlegm production or shortness of breath with exertion Gastrointestinal Gastrointestinal: Denies abdominal pain, nausea or vomiting Genitourinary Genitourinary: Denies dysuria Musculoskeletal Musculoskeletal: Denies joint pain or joint swelling Integumentary Integumentary: Denies rash or wounds Neurologic Neurologic: Denies focal weakness, numbness or tingling Psychiatric Psychiatric: Denies anxiety, auditory hallucinations, depression, homicidal ideation or suicidal ideation Vital Signs Vital Signs Vital Signs: 07/06/24 13:48 07/06/24 15:09 Temperature 98.3 F Temperature Source Oral Pulse Rate 71 Pulse Rhythm Regular Pulse Strength Normal (2+) Respiratory Rate 18 Respiratory Effort Normal Non-Labored Respiratory Depth Normal Respiratory Pattern Normal Blood Pressure 128/65 H Blood Pressure Mean 86 Blood Pressure Source Monitor Blood Pressure Position Supine Blood Pressure Location Right Arm Pulse Ox 97 Oxygen Delivery Method Room Air Room Air Weight Weight: 100.879 kg Body Mass Index (BMI) 35.7 Physical Exam Const alert General Appearance: cooperative HEENT normocephalic Eyes PERRL and EOMs intact bilaterally Neck supple, no JVD and no carotid bruits Resp normal respiratory effort, normal air movement and clear to auscultation bilaterally Cardio regular rate and regular rhythm GI normal to inspection, nondistended, normoactive bowel sounds, non-tender and non-distended Extremity normal capillary refill General Extremity: Negative for edema Skin no rashes or lesions noted General Skin Exam: no breakdown Psych affect normal Appearance: appropriate Assessment & Plan Assessment/Plan (1) Debility: (2) Status post total hip replacement, right: (3) Atrial fibrillation with RVR: (4) Essential (primary) hypertension: (5) Obstructive sleep apnea: (6) Obesity: (7) Iron deficiency anemia: (8) Chronic kidney disease, stage 3a: (9) Hyperlipidemia, unspecified: (10) Venous insufficiency: PLAN: Plan 74 year old female with below past medical history underwent right total hip arthroplasty 06/30/[address] Bergeron ([facility]), postoperative course complicated by atrial fibrillation with RVR, admitted to TCU with debility, here for rehabilitation, strengthening, prior to discharge home with . * Debility - PT/OT. * Pain - Tylenol 1000mg q8, Oxycodone 5-10mg q4 prn pain (6-10). * Bowel - Miralax 17gm daily, senna/colace 2 tablets bid, Magnesium citrate 300mL po x 1 dose, then daily prn. * Adult immunization - Administer pneumonia vaccine, covid vaccine, flu vaccine as appropriate. * DVT prophylaxis - Eliquis. * Atrial fibrillation - Metoprolol succinate 100mg daily, Diltiazem CD 300mg daily, Eliquis 5mg bid, Schedule office appointment with Dr. Andino or Vj Gonzalez for consultation. * Iron deficiency anemia - Ferrous sulfate 650mg daily, Vitamin C 500mg bid thru 07/25/2024. * Hyperlipidemia - Atorvastatin 10mg qhs. * Infection prophylaxis - Cefadroxil 500mg q12 thru 07/20/2024. * Vitamin D deficiency - D3 50mcg daily. * Rash - HC 2.5% topical bid thru 07/11/2024. * Nutrition - MVI 1 tablet daily. * GERD - Pantoprazole 40mg daily.
[2024-07-06] MEDS: APIXABAN 5 MG TABLET PO (22:00)
[2024-07-06] MEDS: Atorvastatin Calcium 10 MG Tablet PO (22:00)
[2024-07-06] MEDS: Cefadroxil 500 MG CAPSULE PO (22:00)
[2024-07-06] MEDS: Hydrocortisone 2.5% Crm 1 APPLIC TOPICAL (22:02)
[2024-07-06] MEDS: Senna/Docusate Sodium 1 Tablet 2 TABLET PO (22:04)
[2024-07-06] MEDS: Acetaminophen 500 MG Tablet 1000 MG PO (22:05)
[2024-07-07] MEDS: Acetaminophen 500 MG Tablet 1000 MG PO ×3 (05:06→22:04)
[2024-07-07 05:42] LABS: Absolute Lymphocyte Count 1.83 X10^3/uL (0.83-4.51); Basophil# 0.04 X10^3/uL; Basophil% 0.4 % (0-1); Eosinophil# 0.38 X10^3/uL; Eosinophils% 4.2 % (0-5); Hematocrit 28.9 % (37-47); Hemoglobin 9.7 g/dL (12.0-15.0); Lymphocyte # 1.83 X10^3/ul (0.83-4.51); Lymphocyte % 20.1 % (19-41); Mean Corp Hgb Conc 33.6 g/dL (32-36); Mean Corpuscular Volume 89.5 fL (81-99); Mean Platelet Vol. 10.2 fl (6.2-12.0); Monocyte# 0.78 X10^3/uL; Monocyte% 8.6 % (0-10); NRBC Flagged by Analyzer 0 % (0-5); Neutrophil # 5.99 X10^3/uL (2.7-7.7); Neutrophil % 65.9 % (47-70); Platelet Count 340 K/mm3 (150-450); RBC Distribution Width SD 42.5 fl (35.1-43.9); Red Blood Count 3.23 M/mm3 (4.2-5.4); White Blood Count 9.1 K/mm3 (4.4-11.0)
[2024-07-07 06:18] LABS: Anion Gap 8 (5-15); BUN 20 mg/dL (4-19); Calcium,Total 9.2 mg/dL (7.6-11.0); Carbon Dioxide 27.8 mmol/L (21.0-32.0); Chloride 101 mmol/L (98-108); Creatinine, Serum 0.97 mg/dL (0.70-1.20); EST Glomerular Filtration Rate 62 (>60); Estimated Creatinine Clearance 61.92 ml/min (50-250); Glucose 112 mg/dL (70-99); Potassium 4.9 mmol/L (3.3-5.1); Sodium Level 137 mmol/L (133-145)
[2024-07-07 08:38] VITALS: BP 128/76; PULSE 83; RESP 16; TEMP 36.4; O2SAT 99
[2024-07-07] MEDS: Cholecalciferol (VIT D3) 25 MCG TABLET (1,000 UNITS) 50 MCG PO (08:41)
[2024-07-07] MEDS: APIXABAN 5 MG TABLET PO ×2 (08:41→22:04)
[2024-07-07] MEDS: Cefadroxil 500 MG CAPSULE PO ×2 (08:41→22:04)
[2024-07-07] MEDS: Multivitamins,Therapeutic Tablet 1 TABLET PO (08:41)
[2024-07-07] MEDS: dilTIAZem CD 300 MG Capsule PO (08:41)
[2024-07-07] MEDS: Pantoprazole Sodium 40 MG Tablet PO (08:41)
[2024-07-07] MEDS: Ascorbic Acid 500 MG Tablet PO (08:41)
[2024-07-07 08:42] VITALS: PULSE 83
[2024-07-07] MEDS: Polyethylene Glycol 3350 17 GM PACKET PO (08:42)
[2024-07-07] MEDS: Metoprolol(XL)Succ 100 MG Tablet PO (08:42)
[2024-07-07] MEDS: Hydrocortisone 2.5% Crm 1 APPLIC TOPICAL ×2 (08:42→22:04)
[2024-07-07] MEDS: Senna/Docusate Sodium 1 Tablet 2 TABLET PO ×2 (08:42→22:04)
--- NOTE | 2024-07-07 08:45 | NURSING ---
Appt made with Dr. Andino for August 24, at 1300. Added to discharge flowsheet.
[2024-07-07] MEDS: oxyCODONE 5 MG Tablet PO ×2 (08:47→19:56)
[2024-07-07] MEDS: Tuberculin,Purif.prot.deriv. 50 TU/ML Vial 0.1 ML ID (10:01)
--- NOTE | 2024-07-07 10:14 | NURSING ---
Addendum entered by Kacy Padgett 07/08/24 09:07: 07/07/24- Talked with resident about using [facility] yesterday and she was on board. Then when her showed up she seemed confused about paying for it. Asked if it'd be billed to insurance, let her know she would need to pay with a card. Then she said oh, so my secondary insurance will cover it. Again let her know [facility] would request her pay by credit/debit card. She voiced understanding. 07/08/24 @0900- returned a VM from [employer] [employer] [facility], they need to know if she will be using them for transport by Thursday, haven't received payment. Updated resident, she stated when her comes in she plans to call and pay for trip. Original Note: Talked to staff in ortho office, they do want to see her in person, don't want xrays/catalina out here on TCU. Resident would like to set up [facility] transport, doesn't feel family could transport as her is using a walker. Provided [employer]'s number, she will call when her comes later today.
[2024-07-07] MEDS: Ferrous Sulfate 325 MG Tablet 650 MG PO (12:56)
--- NOTE | 2024-07-07 15:21 | CASEMGMT ---
Social Work SW met with patient to complete initial assessment. Introduced self and role. Verified/updated contacts. Patient confirmed code status as full code. SW educated to Medicare benefit and copay coverage. Pt's goal is to return home at [facility], as cannot assist. SW will continue to follow for DC planning. Sheila Ross MSW YACHT HAND
[2024-07-07] MEDS: Tamsulosin HCl 0.4 MG Capsule PO (16:28)
[2024-07-07] MEDS: Atorvastatin Calcium 10 MG Tablet PO (22:04)
[2024-07-08] MEDS: oxyCODONE 5 MG Tablet PO ×4 (05:27→20:56)
[2024-07-08] MEDS: Acetaminophen 500 MG Tablet 1000 MG PO ×3 (05:28→20:52)
[2024-07-08 05:36] VITALS: PULSE 116
[2024-07-08 06:06] LABS: Hematocrit 30.3 % (37-47); Hemoglobin 10.3 g/dL (12.0-15.0)
[2024-07-08 08:31] VITALS: BP 117/64; PULSE 140; RESP 18; TEMP 36.2; O2SAT 98
[2024-07-08 08:34] VITALS: PULSE 140
[2024-07-08] MEDS: dilTIAZem CD 300 MG Capsule PO (08:34)
[2024-07-08] MEDS: Metoprolol(XL)Succ 100 MG Tablet PO (08:34)
[2024-07-08] MEDS: Ascorbic Acid 500 MG Tablet PO (08:38)
[2024-07-08] MEDS: Multivitamins,Therapeutic Tablet 1 TABLET PO (08:38)
[2024-07-08] MEDS: Pantoprazole Sodium 40 MG Tablet PO (08:38)
[2024-07-08] MEDS: Cholecalciferol (VIT D3) 25 MCG TABLET (1,000 UNITS) 50 MCG PO (08:38)
[2024-07-08] MEDS: Cefadroxil 500 MG CAPSULE PO ×2 (08:39→20:53)
[2024-07-08] MEDS: Senna/Docusate Sodium 1 Tablet 2 TABLET PO ×2 (08:39→20:51)
[2024-07-08] MEDS: APIXABAN 5 MG TABLET PO ×2 (08:39→20:51)
[2024-07-08] MEDS: Hydrocortisone 2.5% Crm 1 APPLIC TOPICAL ×2 (08:40→20:50)
--- NOTE | 2024-07-08 08:43 | NURSING ---
pt HR 140-160's pt denies feeling palpitations or SOB. pt does complain of pain with movement. resting in bed, HOB elevated. Metoprolol and cardizem given now. EKG ordered. will update dr cisneros
--- NOTE | 2024-07-08 08:57 | NURSING ---
dr cisneros notified of EKG results, pt asymptomatic. Toprol & cardizem given 0834, give medication 30 minutes if not below 140, call him back.
--- NOTE | 2024-07-08 09:05 | EKG12_ITS ---
Test Reason : TACHY Blood Pressure : */* mmHG Vent. Rate : 139 BPM Atrial Rate : 139 BPM P-R Int : 128 ms QRS Dur : 102 ms QT Int : 298 ms P-R-T Axes : 94 -21 22 degrees QTcB Int : 453 ms Sinus tachycardia Nonspecific ST and T wave abnormality Abnormal ECG When compared with ECG of 23-Sep-2020 23:34, Vent. rate has increased by [address] now depressed in Anterior leads T wave inversion more evident in Inferior leads T wave inversion now evident in Anterolateral leads Confirmed by OLGA RAMSEY ([id number]), news video editor KEYA SALAZAR ([id number]) on 07/08/2024 1:27:40 PM Referred By: JOLENE Confirmed By: OLGA RAMSEY
--- NOTE | 2024-07-08 09:27 | NURSING ---
hr 90-120, pt adjusted in bed. pillows placed under RT LE, pt rating pain 9/10. oxyir 10mg given at this time. call light in reach
[2024-07-08 09:29] VITALS: PULSE 120; O2SAT 95
[2024-07-08 11:45] VITALS: PULSE 72
--- NOTE | 2024-07-08 11:46 | NURSING ---
pt slept for awhile, HR 72 regular at this time.
[2024-07-08] MEDS: Ferrous Sulfate 325 MG Tablet 650 MG PO (12:03)
--- NOTE | 2024-07-08 15:00 | PHA.DC_ITS ---
Documented by User: Lupe Garces 07/08/24 15:09 TCU RX Drug Regimen Review Subjective/Objective Subjective/Objective: Subjective: 74 year old female with below past medical history underwent right total hip arthroplasty 06/30/[address] Bergeron ([facility]), postoperative course complicated by atrial fibrillation with RVR, admitted to TCU with debility, here for rehabilitation, strengthening, prior to discharge home with . Objective: Allergies No Known Allergies Allergy Current Medications Generic Name Dose Route Start Last Admin Trade Name Freq PRN Reason Stop Dose Admin Acetaminophen 1,000 mg 07/06/24 22:00 07/08/24 13:19 Acetaminophen 500 Mg Tablet PO 1,000 mg Q8 MEI Administration Apixaban 5 mg 07/06/24 22:00 07/08/24 08:39 Apixaban 5 Mg Tablet PO 5 mg BID MEI Administration Ascorbic Acid 500 mg 07/07/24 08:00 07/08/24 08:38 Ascorbic Acid 500 Mg Tablet PO 07/25/24 08:01 500 mg DAILYCM MEI Administration Atorvastatin Calcium 10 mg 07/06/24 22:00 07/07/24 22:04 Atorvastatin Calcium 10 Mg Tablet PO 10 mg QHS MEI Administration Cefadroxil 500 mg 07/06/24 22:00 07/08/24 08:39 Cefadroxil 500 Mg Capsule PO 07/20/24 22:01 500 mg Q12 MEI Administration Cholecalciferol 50 mcg 07/07/24 08:00 07/08/24 08:38 Cholecalciferol (Vit D3) 25 Mcg Tablet (1,000 Units) PO 50 mcg DAILYCM MEI Administration Diltiazem HCl 300 mg 07/07/24 10:00 07/08/24 08:34 Diltiazem Cd 300 Mg Capsule PO 300 mg DAILY MEI Administration Protocol Ferrous Sulfate 650 mg 07/07/24 12:00 07/08/24 12:03 Ferrous Sulfate 325 Mg Tablet PO 650 mg DAILY@1200 MEI Administration Hydrocortisone 1 applic 07/06/24 22:00 07/08/24 08:40 Hydrocortisone 2.5% Crm TOPICAL 07/11/24 22:01 1 applic BID MEI Administration Protocol Magnesium Citrate 300 ml 07/06/24 20:42 Magnesium Citrate 300 Ml PO DAILY PRN Constipation Metoprolol Succinate 100 mg 07/07/24 10:00 07/08/24 08:34 Metoprolol(Xl)Succ 100 Mg Tablet PO 100 mg DAILY MEI Administration Protocol Multivitamins 1 tablet 07/07/24 08:00 07/08/24 08:38 Multivitamins,Therapeutic Tablet PO 1 tablet DAILYCM MEI Administration Oxycodone HCl 5 - 10 mg 07/06/24 20:42 07/08/24 13:18 Oxycodone 5 Mg Tablet PO 10 mg Q4H PRN PRN Administration Pain Score 6-10 or Pre PT/OT Pantoprazole Sodium 40 mg 07/07/24 08:00 07/08/24 08:38 Pantoprazole Sodium 40 Mg Tablet PO 40 mg 0800 MEI Administration Polyethylene Glycol 17 gm 07/07/24 10:00 07/08/24 08:39 Polyethylene Glycol 3350 17 Gm Packet PO Not Given DAILY MEI Senna/Docusate Sodium 2 tablet 07/06/24 22:00 07/08/24 08:39 Senna/Docusate Sodium 1 Tablet PO 2 tablet BID MEI Administration Tamsulosin HCl 0.4 mg 07/07/24 17:30 07/07/24 16:28 Tamsulosin Hcl 0.4 Mg Capsule PO 0.4 mg DAILY@1730 MEI Administration Tuberculin PPD 0.1 ml 07/14/24 10:00 Tuberculin,Purif.Prot.Deriv. 50 Tu/Ml Vial ID 07/14/24 10:01 X1 ONE Problem List (Updated 07/06/24 @ 20:[address] New Bear MD) Venous insufficiency (Acute) Hyperlipidemia, unspecified (Acute) Chronic kidney disease, stage 3a (Chronic) Iron deficiency anemia (Acute) Obesity (Acute) Obstructive sleep apnea (Acute) Essential (primary) hypertension (Acute) Atrial fibrillation with RVR (Acute) Status post total hip replacement, right (Acute) Debility (Acute) Vital Signs Temp Pulse Resp BP Pulse Ox O2 Del Method 97.2 F L 72 18 117/64 95 Room Air 07/08/24 08:31 07/08/24 11:45 07/08/24 08:31 07/08/24 08:31 07/08/24 09:29 07/08/24 09:29 Oxygen Delivery Method Room Air Weight: 100.879 kg Body Mass Index (BMI) 35.7 Sodium 137 mmol/L (133-145) 07/07/24 05:19 Potassium 4.9 mmol/L (3.3-5.1) 07/07/24 05:19 Chloride 101 mmol/L (98-108) 07/07/24 05:19 Carbon Dioxide 27.8 mmol/L (21.0-32.0) 07/07/24 05:19 Anion Gap 8 (5-15) 07/07/24 05:19 BUN 20 mg/dL (4-19) H 07/07/24 05:19 Creatinine 0.97 mg/dL (0.70-1.20) 07/07/24 05:19 Est GFR (MDRD) Non-Af 62 (>60) 07/07/24 05:19 BUN/Creatinine Ratio 21.0 RATIO (10-20) H 07/07/24 05:19 Glucose 112 mg/dL (70-99) H 07/07/24 05:19 Assessment/Plan: 1.?? Adult immunization - Up to date on Pneumovax, Covid, and Flu vaccines. Consider Zoster/Shingles Vaccine upon transition of care to Outpatient/halfway care. 2.?? Atrial fibrillation - Metoprolol succinate 100mg PO DAILY, Diltiazem CD 300mg PO DAILY, Eliquis 5mg PO BID. Continue to monitor for S/Sx of Bleeding, DVT, Hg (9.7 g/dL, increased to 10.3 g/dL); Please Continue to monitor HR (83- 140), BP (64/177 - 76/128), LFTs, and S/Sx of Orthostasis. Eliquis Dose is appropriate given, present renal function, and weight. 3. Hypertension - Metoprolol succinate 100mg PO DAILY, Diltiazem CD 300mg PO DAILY; Patient's vitals are stable; Please Continue to monitor HR (83-140), BP (64/177 - 76/128), LFTs, and S/Sx of Orthostasis. 3.?? Bowel - MiraLAX 17gm PO DAILY, Senna/Docusate 2 tablets PO BID, Magnesium citrate 300mL po x 1 dose, then daily prn. Last BM 07/07/2024; Please continue to monitor for Constipation/Diarrhea and utilize PRN medications as needed. 4.?? DVT prophylaxis/post-op Hip replacement - Eliquis 5mg PO BID. Continue to monitor for S/Sx of Bleeding, DVT, Hg (10.3 g/dL). 5.?? GERD/Indigestion - Pantoprazole 40mg PO QHS. Please continue to monitor for S/S GERD/indigestion. Please also encourage non pharmacologic measures such as raising the bed, types of food, times of meals, weight loss, and stress management. Consider dose reduction towards weaning off. Patient was not on medication prior to surgery and admission. 6.?? Hyperlipidemia - Atorvastatin 10mg PO QHS. Please continue to monitor LFTs, and for muscle pain. Consider a Lipid profile to asses if patient needs to continue therapy or possibly a wean off. 7.?? Infection post-op prophylaxis - Cefadroxil 500mg PO Q12H through 07/20/2024. Please continue to monitor for S/S of infection around wound area/operative site, Fever diarrhea, stool discoloration, renal function and upset stomach. Patient can be on full dose of 1000 mg BID, given renal function, but dose is also appropriate for post-op prophylaxis. 8.?? Iron deficiency anemia - Ferrous sulfate 650mg daily, Vitamin C 500mg BID thru 07/25/2024.? Hemoglobin is increasing given that patient just had a major surgery. No sign of Microcytic anemia. Continue to monitor HgB (Last 07/08/2024 10.3 g/dL). 9.?? Nutrition - MVI 1 tablet PO DAILY; Evaluate dietary and Nutritional need, Side effects such as Nausea/ Vomiting/Diarrhea/Constipation, and Upset stomach. 10.?Pain - Tylenol 1000mg PO Q8H scheduled, Oxycodone 5-10mg Q4H as needed for pain of (6-10). Regimen seems to bring pain levels down. Continue to Monitor for pain levels, constipation, and dizziness increasing risk for falls, and patient ability to participate in therapy. 11. Rash - HC 2.5% topical BID through 07/11/2024. Monitor for resolution of rash on back area and encourage full hygiene measures. 12. Urinary Retention/indwelling Catheter: Tamsulosin 0.4 mg PO DAILY. Monitor for In/out (total output/Cook 300 mL 07/08/2024), Orthostatic hypertension, and ability to remove catheter. 13.?Vitamin D deficiency -Cholecalciferol (Vit D3) 50 Mcg Tablet (2,000 Units) PO DAILY.? Please consider a serum 25(OH)hydroxyvitamin D concentrations as no level found in Hx, and continue to monitor levels every 3 months Assessment/Plan for indications treated with psychotropic medications: None Medical chart and medication regimen reviewed. The following medication irregularities or issues were identified: 1 - Please consider reducing Pantoprazole dose towards weaning. No history of fills prior to surgery and admission. 2 - Please consider a vitamin D level, given no History, to assess need to continue therapy/supplement. 3 - Please consider a lipid profile to asses need for a statin to reduce pr esent/future medication load. Date Date of Note:: 07/08/24 Provider Comments Provider responsibility Provider Comments to Recommendations by Pharmacy: Agree Surveillance (Do Not Edit) Send communication to TCU director: Yes Documented by User: Dr. New Bear MD 07/08/24 15:26 TCU RX Drug Regimen Review Surveillance (Do Not Edit) Send communication to TCU director: Yes
[2024-07-08] MEDS: Tamsulosin HCl 0.4 MG Capsule PO (17:25)
[2024-07-08] MEDS: Atorvastatin Calcium 10 MG Tablet PO (20:51)
[2024-07-09] MEDS: oxyCODONE 5 MG Tablet PO ×4 (01:59→21:35)
[2024-07-09] MEDS: Acetaminophen 500 MG Tablet 1000 MG PO ×3 (06:33→21:38)
[2024-07-09 08:20] VITALS: BP 128/76; PULSE 128
[2024-07-09] MEDS: Metoprolol(XL)Succ 100 MG Tablet PO (08:20)
[2024-07-09] MEDS: Senna/Docusate Sodium 1 Tablet 2 TABLET PO ×2 (08:21→21:36)
[2024-07-09] MEDS: Multivitamins,Therapeutic Tablet 1 TABLET PO (08:21)
[2024-07-09] MEDS: Ascorbic Acid 500 MG Tablet PO (08:22)
[2024-07-09] MEDS: Polyethylene Glycol 3350 17 GM PACKET PO (08:22)
[2024-07-09] MEDS: Pantoprazole Sodium 20 MG Tablet PO (08:22)
[2024-07-09] MEDS: Cefadroxil 500 MG CAPSULE PO ×2 (08:22→21:37)
[2024-07-09] MEDS: Cholecalciferol (VIT D3) 25 MCG TABLET (1,000 UNITS) 50 MCG PO (08:22)
[2024-07-09] MEDS: APIXABAN 5 MG TABLET PO ×2 (08:22→21:36)
[2024-07-09] MEDS: dilTIAZem CD 300 MG Capsule PO (08:22)
[2024-07-09] MEDS: Hydrocortisone 2.5% Crm 1 APPLIC TOPICAL ×2 (08:28→21:38)
[2024-07-09] MEDS: Ferrous Sulfate 325 MG Tablet 650 MG PO (11:40)
[2024-07-09 12:28] LABS: Cholesterol 93 mg/dL (<=200); High Density Lipoprotein 27 mg/dL; Low Density Lipoprotein Calc. 49 mg/dL; Triglycerides 82 mg/dL; Very Low Density Lipoprotein 16 mg/dL (5-40); cholesterol:hdl ratio screen 3.43
[2024-07-09 12:29] LABS: Vitamin D,25 Hydroxy 86.9 ng/mL (30-100)
[2024-07-09 13:53] VITALS: BP 106/53; PULSE 74; RESP 14; TEMP 36.2; O2SAT 98
[2024-07-09] MEDS: Tamsulosin HCl 0.4 MG Capsule PO (17:16)
[2024-07-09] MEDS: Atorvastatin Calcium 10 MG Tablet PO (21:37)
[2024-07-10] MEDS: oxyCODONE 5 MG Tablet PO ×2 (05:40→19:47)
[2024-07-10] MEDS: Acetaminophen 500 MG Tablet 1000 MG PO ×3 (05:41→19:51)
[2024-07-10] MEDS: Ascorbic Acid 500 MG Tablet PO (08:04)
[2024-07-10] MEDS: Cholecalciferol (VIT D3) 25 MCG TABLET (1,000 UNITS) 50 MCG PO (08:04)
[2024-07-10] MEDS: Cefadroxil 500 MG CAPSULE PO ×2 (08:04→19:50)
[2024-07-10] MEDS: APIXABAN 5 MG TABLET PO ×2 (08:04→19:51)
[2024-07-10] MEDS: Senna/Docusate Sodium 1 Tablet 2 TABLET PO ×2 (08:04→19:50)
[2024-07-10] MEDS: Polyethylene Glycol 3350 17 GM PACKET PO (08:04)
[2024-07-10] MEDS: dilTIAZem CD 300 MG Capsule PO (08:04)
[2024-07-10] MEDS: Pantoprazole Sodium 20 MG Tablet PO (08:04)
[2024-07-10] MEDS: Multivitamins,Therapeutic Tablet 1 TABLET PO (08:04)
[2024-07-10 08:05] VITALS: BP 106/70; PULSE 80
[2024-07-10] MEDS: Metoprolol(XL)Succ 100 MG Tablet PO (08:05)
[2024-07-10] MEDS: Hydrocortisone 2.5% Crm 1 APPLIC TOPICAL ×2 (08:05→19:48)
[2024-07-10] MEDS: Ferrous Sulfate 325 MG Tablet 650 MG PO (13:14)
[2024-07-10 13:37] VITALS: BP 113/61; PULSE 67; RESP 14; TEMP 36.2; O2SAT 97
[2024-07-10] MEDS: Tamsulosin HCl 0.4 MG Capsule PO (18:10)
[2024-07-10] MEDS: Atorvastatin Calcium 10 MG Tablet PO (19:50)
[2024-07-11] MEDS: oxyCODONE 5 MG Tablet PO ×3 (03:09→13:52)
[2024-07-11] MEDS: Acetaminophen 500 MG Tablet 1000 MG PO ×3 (05:44→21:20)
[2024-07-11 07:55] VITALS: BP 125/63; PULSE 70; RESP 16; TEMP 36.3; O2SAT 99
[2024-07-11] MEDS: Pantoprazole Sodium 20 MG Tablet PO (07:59)
[2024-07-11] MEDS: Multivitamins,Therapeutic Tablet 1 TABLET PO (07:59)
[2024-07-11] MEDS: APIXABAN 5 MG TABLET PO ×2 (07:59→21:20)
[2024-07-11 08:00] VITALS: PULSE 70
[2024-07-11] MEDS: Cholecalciferol (VIT D3) 25 MCG TABLET (1,000 UNITS) 50 MCG PO (08:00)
[2024-07-11] MEDS: dilTIAZem CD 300 MG Capsule PO (08:00)
[2024-07-11] MEDS: Hydrocortisone 2.5% Crm 1 APPLIC TOPICAL ×2 (08:00→21:21)
[2024-07-11] MEDS: Metoprolol(XL)Succ 100 MG Tablet PO (08:00)
[2024-07-11] MEDS: Cefadroxil 500 MG CAPSULE PO ×2 (08:00→21:20)
[2024-07-11] MEDS: Ascorbic Acid 500 MG Tablet PO (08:00)
[2024-07-11 09:42] VITALS: PULSE 70; RESP 16; O2SAT 99
--- NOTE | 2024-07-11 11:29 | NURSING ---
Offered covid vaccine, VIS provided. Resident declines at this time.
[2024-07-11] MEDS: Ferrous Sulfate 325 MG Tablet 650 MG PO (11:39)
[2024-07-11] MEDS: Tamsulosin HCl 0.4 MG Capsule PO (17:38)
[2024-07-11] MEDS: Atorvastatin Calcium 10 MG Tablet PO (21:20)
[2024-07-12] MEDS: oxyCODONE 5 MG Tablet PO ×3 (03:37→15:15)
[2024-07-12] MEDS: Acetaminophen 500 MG Tablet 1000 MG PO ×3 (05:14→19:54)
[2024-07-12 08:23] VITALS: BP 113/55; PULSE 116; RESP 16; TEMP 35.9; O2SAT 99
[2024-07-12] MEDS: Multivitamins,Therapeutic Tablet 1 TABLET PO (08:25)
[2024-07-12] MEDS: Cholecalciferol (VIT D3) 25 MCG TABLET (1,000 UNITS) 50 MCG PO (08:26)
[2024-07-12] MEDS: Cefadroxil 500 MG CAPSULE PO ×2 (08:26→19:57)
[2024-07-12] MEDS: dilTIAZem CD 300 MG Capsule PO (08:26)
[2024-07-12] MEDS: Ascorbic Acid 500 MG Tablet PO (08:26)
[2024-07-12] MEDS: Pantoprazole Sodium 20 MG Tablet PO (08:26)
[2024-07-12 08:27] VITALS: PULSE 116
[2024-07-12] MEDS: Senna/Docusate Sodium 1 Tablet 2 TABLET PO (08:27)
[2024-07-12] MEDS: APIXABAN 5 MG TABLET PO ×2 (08:27→19:56)
[2024-07-12] MEDS: Metoprolol(XL)Succ 100 MG Tablet PO (08:27)
[2024-07-12 11:16] VITALS: BMI 37.3
[2024-07-12] MEDS: Ferrous Sulfate 325 MG Tablet 650 MG PO (13:49)
[2024-07-12 15:11] VITALS: PULSE 61; O2SAT 94
[2024-07-12] MEDS: Tamsulosin HCl 0.4 MG Capsule PO (16:51)
--- NOTE | 2024-07-12 17:22 | CASEMGMT ---
Social Work SW received call from LAURITA Ana, ( of [employer]), stating they are unable to participate in the POC meeting tomorrow, as they will be on a flight from [place] to [place]. They will be in town for a few days to care for pt's with some appts and check-in with pt. RHONA provided updates from IDT huddle with LOF, explained Medicare benefit and copay coverage. LAURITA confirmed pt's cannot provide any assistance to the pt, thus, the pt will need to be independent to return home safely. RHONA explained pt is progressing, though still needing assistance with toileting and bathing tasks. RHONA explained AVIATION MECHANIC completed MOCA - scored 25/30 - no concerns; working on higher level executive functioning tasks. Son will take pt to f/u ortho appt and will get further instructions from on healing and WBS. RHONA will update LAURITA if any concerns are noted, but none at this time. LAURITA expressed gratitude for staff. RHONA updated contacts in pt's chart. Sheila Ross SHEARER OPERATOR DISTANCE LEARNING TECHNICIAN
[2024-07-12] MEDS: Atorvastatin Calcium 10 MG Tablet PO (19:56)
[2024-07-13] MEDS: oxyCODONE 5 MG Tablet PO ×2 (01:12→05:52)
[2024-07-13] MEDS: Acetaminophen 500 MG Tablet 1000 MG PO ×3 (05:52→21:28)
--- NOTE | 2024-07-13 08:29 | NURSING ---
Irish [employer] Bleacher Note; MDS for 07/13/2024 Complete
[2024-07-13 08:41] VITALS: BP 122/58; PULSE 114
[2024-07-13] MEDS: Pantoprazole Sodium 20 MG Tablet PO (08:41)
[2024-07-13] MEDS: Cholecalciferol (VIT D3) 25 MCG TABLET (1,000 UNITS) 50 MCG PO (08:41)
[2024-07-13] MEDS: Cefadroxil 500 MG CAPSULE PO ×2 (08:41→21:28)
[2024-07-13] MEDS: APIXABAN 5 MG TABLET PO ×2 (08:41→21:28)
[2024-07-13] MEDS: Ascorbic Acid 500 MG Tablet PO (08:41)
[2024-07-13] MEDS: Multivitamins,Therapeutic Tablet 1 TABLET PO (08:41)
[2024-07-13] MEDS: Metoprolol(XL)Succ 100 MG Tablet PO (08:41)
[2024-07-13] MEDS: Senna/Docusate Sodium 1 Tablet 2 TABLET PO (08:41)
[2024-07-13] MEDS: dilTIAZem CD 300 MG Capsule PO (08:42)
[2024-07-13 09:00] VITALS: BP 122/58; PULSE 114; RESP 16; TEMP 36.3; O2SAT 95
--- NOTE | 2024-07-13 09:38 | CASEMGMT ---
Social Work IDT met with patient and for care plan meeting. Discussed patient's progress in PT/OT/ST/SN. Educated to Medicare benefit. Provided pt/family with written communication of insurance process and copay coverage during stay. Pt's goal is to return home at mod I as cannot assist. Pt was caring for IADLs and at home prior. SW educated to coordinating to skilled HHC and any DME needs at DC. No issued noted. SW will continue to follow for DC planning. Sheila Ross LAB ANIMAL TECHNOLOGIST INVESTOR RELATIONS SPECIALIST
[2024-07-13] MEDS: Menthol/Lanolin/Calamine/Znox 113 GM Tube 1 APPLIC TOPICAL ×2 (11:04→21:29)
[2024-07-13] MEDS: Ferrous Sulfate 325 MG Tablet 650 MG PO (11:09)
--- NOTE | 2024-07-13 15:23 | CASEMGMT ---
Social Work- SW met with pt to administer BIMS assessment. SW introduced self and role; pt agreeable to meet. Pt scored 15/15 on BIMS and 0/2 on PHQ9. Pt reports that she is looking forward to her son coming from [place] to visit today and taker her to her dr appointment tomorrow. Pt reports no needs at this time. SW remains available to follow. CELSO Muniz
[2024-07-13] MEDS: Tamsulosin HCl 0.4 MG Capsule PO (16:35)
[2024-07-13] MEDS: Atorvastatin Calcium 10 MG Tablet PO (21:28)
[2024-07-14 05:29] LABS: Absolute Neutrophil Count 6.5 X10^3/uL (2.0-7.7); Basophil# 0.04 X10^3/uL; Basophil% 0.4 % (0-1); Eosinophil# 0.23 X10^3/uL; Eosinophils% 2.6 % (0-5); Hematocrit 29.1 % (37-47); Hemoglobin 9.6 g/dL (12.0-15.0); Lymphocyte % 17.9 % (19-41); Mean Corpuscular Hgb 29.4 pg (27.0-32.0); Mean Corpuscular Volume 89.3 fL (81-99); Mean Platelet Vol. 9.1 fl (6.2-12.0); Monocyte% 5.6 % (0-10); NRBC Flagged by Analyzer 0 % (0-5); Neutrophil % 72.6 % (47-70); Platelet Count 380 K/mm3 (150-450); RBC Distribution Width CV 13.2 % (11.6-14.6); RBC Distribution Width SD 42.6 fl (35.1-43.9); Red Blood Count 3.26 M/mm3 (4.2-5.4)
[2024-07-14 05:59] LABS: Anion Gap 10 (5-15); BUN 15 mg/dL (4-19); BUN/Creat Ratio 15.9 RATIO (10-20); Calcium,Total 9.4 mg/dL (7.6-11.0); Carbon Dioxide 26.3 mmol/L (21.0-32.0); Chloride 103 mmol/L (98-108); Creatinine, Serum 0.93 mg/dL (0.70-1.20); EST Glomerular Filtration Rate 65 (>60); Estimated Creatinine Clearance 65.95 ml/min (50-250); Glucose 124 mg/dL (70-99); Potassium 4.1 mmol/L (3.3-5.1); Sodium Level 139 mmol/L (133-145)
[2024-07-14] MEDS: Acetaminophen 500 MG Tablet 1000 MG PO ×3 (06:13→20:53)
[2024-07-14 07:46] VITALS: BP 142/79; PULSE 131
[2024-07-14] MEDS: Ascorbic Acid 500 MG Tablet PO (07:46)
[2024-07-14] MEDS: dilTIAZem CD 300 MG Capsule PO (07:46)
[2024-07-14] MEDS: Pantoprazole Sodium 20 MG Tablet PO (07:46)
[2024-07-14] MEDS: Cefadroxil 500 MG CAPSULE PO ×2 (07:46→20:52)
[2024-07-14] MEDS: Multivitamins,Therapeutic Tablet 1 TABLET PO (07:46)
[2024-07-14] MEDS: Metoprolol(XL)Succ 100 MG Tablet PO ×2 (07:46→20:52)
[2024-07-14] MEDS: APIXABAN 5 MG TABLET PO ×2 (07:46→20:52)
[2024-07-14] MEDS: Cholecalciferol (VIT D3) 25 MCG TABLET (1,000 UNITS) 50 MCG PO (07:46)
[2024-07-14] MEDS: Menthol/Lanolin/Calamine/Znox 113 GM Tube 1 APPLIC TOPICAL ×2 (07:55→20:53)
--- NOTE | 2024-07-14 09:17 | NURSING ---
Spoke with resident, , and son in room. They are asking about seeing registered travel nurse soon as possible. She has an EKG scheduled for 07/26/24, f/u with [facility] cardiology [facility]ER on 08/17/24. This RN called, they do not have an earlier appointment. She would like to transfer to [facility]. Dr. Mena can see her on 08/11/24. Appointments with CC left scheduled at this time. [facility] cardiology to call her if they have a cancellation an can see her earlier.
[2024-07-14 10:50] VITALS: BP 109/61; PULSE 67; RESP 18; TEMP 36.6; O2SAT 93
--- NOTE | 2024-07-14 11:08 | NURSING ---
Pt C/O of chest pain and nausea. EKG ordered and Dr. Bear updated no new orders.
--- NOTE | 2024-07-14 11:09 | NURSING ---
Pt C/O of SOB SpO2 98% on 2.5 L NC abdominal breathing noted BP 131/71. Dr. Bear updated secured text N.O. received for Chest X-ray. Order secure text back.
[2024-07-14] MEDS: Ferrous Sulfate 325 MG Tablet 650 MG PO (13:04)
[2024-07-14] MEDS: Tuberculin,Purif.prot.deriv. 50 TU/ML Vial 0.1 ML ID (13:05)
[2024-07-14] MEDS: Tamsulosin HCl 0.4 MG Capsule PO (16:36)
[2024-07-14 20:52] VITALS: BP 117/58; PULSE 77
[2024-07-14] MEDS: Atorvastatin Calcium 10 MG Tablet PO (20:52)
[2024-07-14 20:58] VITALS: BP 117/58; PULSE 77
[2024-07-15] MEDS: oxyCODONE 5 MG Tablet PO (03:49)
[2024-07-15 05:25] VITALS: PULSE 79; RESP 16
[2024-07-15] MEDS: Acetaminophen 500 MG Tablet 1000 MG PO ×3 (05:25→20:57)
[2024-07-15 08:17] VITALS: BP 108/60; PULSE 66; RESP 16; TEMP 36.9; O2SAT 96
[2024-07-15] MEDS: Pantoprazole Sodium 20 MG Tablet PO (08:20)
[2024-07-15] MEDS: Menthol/Lanolin/Calamine/Znox 113 GM Tube 1 APPLIC TOPICAL ×2 (08:20→20:58)
[2024-07-15] MEDS: Multivitamins,Therapeutic Tablet 1 TABLET PO (08:20)
[2024-07-15] MEDS: Ascorbic Acid 500 MG Tablet PO (08:20)
[2024-07-15] MEDS: Cholecalciferol (VIT D3) 25 MCG TABLET (1,000 UNITS) 50 MCG PO (08:20)
[2024-07-15] MEDS: Cefadroxil 500 MG CAPSULE PO ×2 (08:21→20:57)
[2024-07-15] MEDS: dilTIAZem CD 300 MG Capsule PO (08:21)
[2024-07-15] MEDS: APIXABAN 5 MG TABLET PO ×2 (08:21→20:57)
[2024-07-15 08:22] VITALS: PULSE 66
[2024-07-15] MEDS: Metoprolol(XL)Succ 100 MG Tablet PO ×2 (08:22→20:57)
[2024-07-15] MEDS: Ferrous Sulfate 325 MG Tablet 650 MG PO (13:56)
[2024-07-15] MEDS: Tamsulosin HCl 0.4 MG Capsule PO (17:22)
[2024-07-15 20:57] VITALS: BP 112/66; PULSE 77
[2024-07-15] MEDS: Atorvastatin Calcium 10 MG Tablet PO (20:57)
[2024-07-16] MEDS: oxyCODONE 5 MG Tablet PO ×2 (01:54→23:07)
[2024-07-16] MEDS: Acetaminophen 500 MG Tablet 1000 MG PO ×3 (06:21→20:04)
[2024-07-16 09:05] VITALS: BP 114/54; PULSE 87; RESP 17; TEMP 36.6; O2SAT 95
[2024-07-16] MEDS: Menthol/Lanolin/Calamine/Znox 113 GM Tube 1 APPLIC TOPICAL ×2 (09:15→20:08)
[2024-07-16] MEDS: APIXABAN 5 MG TABLET PO ×2 (09:15→20:05)
[2024-07-16] MEDS: Pantoprazole Sodium 20 MG Tablet PO (09:15)
[2024-07-16] MEDS: dilTIAZem CD 300 MG Capsule PO (09:15)
[2024-07-16] MEDS: Cefadroxil 500 MG CAPSULE PO ×2 (09:15→20:03)
[2024-07-16] MEDS: Polyethylene Glycol 3350 17 GM PACKET PO (09:15)
[2024-07-16 09:16] VITALS: PULSE 87
[2024-07-16] MEDS: Senna/Docusate Sodium 1 Tablet 2 TABLET PO (09:16)
[2024-07-16] MEDS: Metoprolol(XL)Succ 100 MG Tablet PO ×2 (09:16→20:03)
[2024-07-16] MEDS: Ferrous Sulfate 325 MG Tablet 650 MG PO (12:18)
[2024-07-16] MEDS: Multivitamins,Therapeutic Tablet 1 TABLET PO (12:18)
[2024-07-16] MEDS: Cholecalciferol (VIT D3) 25 MCG TABLET (1,000 UNITS) 50 MCG PO (12:19)
[2024-07-16] MEDS: Ascorbic Acid 500 MG Tablet PO (12:19)
[2024-07-16] MEDS: Tamsulosin HCl 0.4 MG Capsule PO (16:31)
[2024-07-16 20:03] VITALS: BP 107/55; PULSE 64
[2024-07-16] MEDS: Atorvastatin Calcium 10 MG Tablet PO (20:05)
[2024-07-16 20:11] VITALS: PULSE 76; RESP 16; O2SAT 97
--- NOTE | 2024-07-16 20:16 | NURSING ---
Patient with 1+ pitting edema to BLE. States she was on a medication for swelling prior to coming into hospital. Review of Hx noted to be on Hydrochlorothiazide 25mg qd po, which was last filled in May. Kidney function is WNL. BP 107/55, pulse 76 and irregular. Will leave communication for physician.
[2024-07-17] MEDS: Acetaminophen 500 MG Tablet 1000 MG PO ×3 (05:49→20:18)
[2024-07-17 09:09] VITALS: BP 122/59; PULSE 71; RESP 17; TEMP 36.3; O2SAT 99
[2024-07-17] MEDS: dilTIAZem CD 300 MG Capsule PO (09:13)
[2024-07-17 09:14] VITALS: PULSE 71
[2024-07-17] MEDS: Menthol/Lanolin/Calamine/Znox 113 GM Tube 1 APPLIC TOPICAL ×2 (09:14→20:25)
[2024-07-17] MEDS: APIXABAN 5 MG TABLET PO ×2 (09:14→20:20)
[2024-07-17] MEDS: Senna/Docusate Sodium 1 Tablet 2 TABLET PO (09:14)
[2024-07-17] MEDS: Cefadroxil 500 MG CAPSULE PO ×2 (09:14→20:19)
[2024-07-17] MEDS: Metoprolol(XL)Succ 100 MG Tablet PO ×2 (09:14→20:19)
[2024-07-17] MEDS: Multivitamins,Therapeutic Tablet 1 TABLET PO (11:47)
[2024-07-17] MEDS: Ferrous Sulfate 325 MG Tablet 650 MG PO (11:47)
[2024-07-17] MEDS: Cholecalciferol (VIT D3) 25 MCG TABLET (1,000 UNITS) 50 MCG PO (11:48)
[2024-07-17] MEDS: Ascorbic Acid 500 MG Tablet PO (11:48)
[2024-07-17] MEDS: Tamsulosin HCl 0.4 MG Capsule PO (16:12)
--- NOTE | 2024-07-17 20:00 | NURSING ---
Talked to Dr. Bear regarding patient previously taking HCTZ for BLE edema. New order to restart HCTZ 25mg po qd, with first dose to be administered now. Order read back and confirmed. Patient updated on order and verbalized understanding.
[2024-07-17] MEDS: hydroCHLOROthiazide 25 MG Tablet PO (20:17)
[2024-07-17 20:19] VITALS: BP 112/59; PULSE 86
[2024-07-17] MEDS: Atorvastatin Calcium 10 MG Tablet PO (20:21)
[2024-07-17] MEDS: oxyCODONE 5 MG Tablet PO (20:59)
[2024-07-18] MEDS: oxyCODONE 5 MG Tablet PO ×2 (02:17→22:02)
[2024-07-18] MEDS: Acetaminophen 500 MG Tablet 1000 MG PO ×3 (06:44→20:47)
[2024-07-18 08:57] VITALS: BP 106/55; PULSE 62
[2024-07-18] MEDS: Metoprolol(XL)Succ 100 MG Tablet PO ×2 (08:57→20:47)
[2024-07-18] MEDS: Senna/Docusate Sodium 1 Tablet 2 TABLET PO (08:57)
[2024-07-18] MEDS: APIXABAN 5 MG TABLET PO ×2 (08:58→20:46)
[2024-07-18] MEDS: dilTIAZem CD 300 MG Capsule PO (08:58)
[2024-07-18] MEDS: Cefadroxil 500 MG CAPSULE PO ×2 (08:58→20:46)
[2024-07-18] MEDS: hydroCHLOROthiazide 25 MG Tablet PO (08:58)
[2024-07-18] MEDS: Menthol/Lanolin/Calamine/Znox 113 GM Tube 1 APPLIC TOPICAL ×2 (08:59→20:49)
[2024-07-18 09:06] VITALS: BP 106/55; PULSE 62; RESP 18; TEMP 36.4; O2SAT 99
[2024-07-18] MEDS: Multivitamins,Therapeutic Tablet 1 TABLET PO (11:52)
[2024-07-18] MEDS: Ascorbic Acid 500 MG Tablet PO (11:52)
[2024-07-18] MEDS: Ferrous Sulfate 325 MG Tablet 650 MG PO (11:52)
[2024-07-18] MEDS: Cholecalciferol (VIT D3) 25 MCG TABLET (1,000 UNITS) 50 MCG PO (11:52)
[2024-07-18] MEDS: Tamsulosin HCl 0.4 MG Capsule PO (17:24)
[2024-07-18] MEDS: Atorvastatin Calcium 10 MG Tablet PO (20:46)
[2024-07-18 20:47] VITALS: BP 109/58; PULSE 68
[2024-07-18 20:51] VITALS: BP 109/58; PULSE 68
[2024-07-19] MEDS: Acetaminophen 500 MG Tablet 1000 MG PO ×3 (05:38→20:20)
[2024-07-19 05:41] VITALS: PULSE 69; RESP 16
[2024-07-19 07:46] VITALS: BP 117/65; PULSE 68; RESP 16; TEMP 36.6; O2SAT 97
[2024-07-19] MEDS: APIXABAN 5 MG TABLET PO ×2 (07:47→20:19)
[2024-07-19] MEDS: hydroCHLOROthiazide 25 MG Tablet PO (07:48)
[2024-07-19] MEDS: Cefadroxil 500 MG CAPSULE PO ×2 (07:48→20:18)
[2024-07-19] MEDS: dilTIAZem CD 300 MG Capsule PO (07:48)
[2024-07-19 07:49] VITALS: PULSE 68
[2024-07-19] MEDS: Metoprolol(XL)Succ 100 MG Tablet PO ×2 (07:49→20:19)
[2024-07-19] MEDS: Senna/Docusate Sodium 1 Tablet 2 TABLET PO ×2 (07:49→20:18)
[2024-07-19] MEDS: Menthol/Lanolin/Calamine/Znox 113 GM Tube 1 APPLIC TOPICAL ×2 (07:51→20:23)
--- NOTE | 2024-07-19 11:37 | MDS.RN ---
Information for the MDS was obtained from review of the clinical record, interview of resident, staff, and direct observation of resident?s care.
[2024-07-19 11:39] VITALS: BMI 36.2
[2024-07-19] MEDS: Ascorbic Acid 500 MG Tablet PO (12:11)
[2024-07-19] MEDS: Cholecalciferol (VIT D3) 25 MCG TABLET (1,000 UNITS) 50 MCG PO (12:11)
[2024-07-19] MEDS: Multivitamins,Therapeutic Tablet 1 TABLET PO (12:12)
[2024-07-19] MEDS: Ferrous Sulfate 325 MG Tablet 650 MG PO (12:12)
[2024-07-19] MEDS: Tamsulosin HCl 0.4 MG Capsule PO (17:20)
[2024-07-19] MEDS: Atorvastatin Calcium 10 MG Tablet PO (20:18)
[2024-07-19 20:19] VITALS: BP 123/59; PULSE 66
[2024-07-19 20:25] VITALS: BP 123/59; PULSE 66
[2024-07-19] MEDS: oxyCODONE 5 MG Tablet PO (22:55)
[2024-07-20] MEDS: Acetaminophen 500 MG Tablet 1000 MG PO ×3 (05:08→22:04)
[2024-07-20 08:20] VITALS: BP 115/60; PULSE 120; RESP 16; TEMP 36.6; O2SAT 96
[2024-07-20] MEDS: dilTIAZem CD 300 MG Capsule PO (08:21)
[2024-07-20 08:22] VITALS: PULSE 120
[2024-07-20] MEDS: Cefadroxil 500 MG CAPSULE PO ×2 (08:22→22:05)
[2024-07-20] MEDS: Senna/Docusate Sodium 1 Tablet 2 TABLET PO ×2 (08:22→22:06)
[2024-07-20] MEDS: hydroCHLOROthiazide 25 MG Tablet PO (08:22)
[2024-07-20] MEDS: APIXABAN 5 MG TABLET PO ×2 (08:22→22:05)
[2024-07-20] MEDS: Metoprolol(XL)Succ 100 MG Tablet PO ×2 (08:22→22:05)
[2024-07-20] MEDS: Menthol/Lanolin/Calamine/Znox 113 GM Tube 1 APPLIC TOPICAL ×2 (08:24→22:06)
[2024-07-20 09:33] VITALS: PULSE 94
[2024-07-20 10:51] VITALS: PULSE 95; RESP 16; O2SAT 98
[2024-07-20] MEDS: Ascorbic Acid 500 MG Tablet PO (11:51)
[2024-07-20] MEDS: Multivitamins,Therapeutic Tablet 1 TABLET PO (11:51)
[2024-07-20] MEDS: Ferrous Sulfate 325 MG Tablet 650 MG PO (11:51)
[2024-07-20] MEDS: Cholecalciferol (VIT D3) 25 MCG TABLET (1,000 UNITS) 50 MCG PO (11:51)
[2024-07-20] MEDS: oxyCODONE 5 MG Tablet PO (11:51)
--- NOTE | 2024-07-20 12:49 | NURSING ---
pt off unit to appt at this time.
--- NOTE | 2024-07-20 16:01 | NURSING ---
pt back from ortho appt at this time
--- NOTE | 2024-07-20 16:11 | NURSING ---
ortho order to progress wt bearing as tolerated. continue hip precautions for another 6 wks. may go home from ortho standpoint as long as ok with physical therapy. report given to therapist on return
[2024-07-20] MEDS: Tamsulosin HCl 0.4 MG Capsule PO (16:15)
[2024-07-20 22:05] VITALS: BP 110/58; PULSE 62
[2024-07-20] MEDS: Atorvastatin Calcium 10 MG Tablet PO (22:05)
--- NOTE | 2024-07-20 22:16 | NURSING ---
Addendum entered by Lilliana Randall 07/21/24 01:19: confidential voicemail left for RHONA regarding patient request to discharge 07/21/24, written communication left for Dr. Bear regarding patient request to discharge home. Original Note: Patient requests to speak with social media senior associate regarding d/c home, states I went to see the surgeon's geological survey field assistant today and they said that I should be able to go home soon, I'm hoping to go home tomorrow with my . Patient requests HS meds at this time, states go ahead and give me one of those oxy's too to help me sleep. Pain scale requested, patient states Oh maybe a 2, I'm not really having any pain. Patient educated on Oxycodone ordered for pain and educated on pain scale, risk of dependency to drug if not used for prescribed reason. Patient verbalizes understanding. Inquired if patient would like Dr. Bear notified of desire for sleep medication, patient declines, states I don't like to take sleep meds, the tylenol will help fine. Patient encouraged to notify nursing staff if changes mind, verbalizes understanding, snack offered and declined at this time. HS meds administered as ordered, assisted with CPAP upon request. Denies further request. No distress observed or reported.
[2024-07-21 01:12] VITALS: PULSE 64; RESP 18; O2SAT 98
[2024-07-21] MEDS: Acetaminophen 500 MG Tablet 1000 MG PO ×3 (05:09→21:06)
[2024-07-21 05:50] LABS: Absolute Lymphocyte Count 1.76 X10^3/uL (0.83-4.51); Absolute Neutrophil Count 4.9 X10^3/uL (2.0-7.7); Basophil# 0.07 X10^3/uL; Basophil% 0.9 % (0-1); Eosinophil# 0.28 X10^3/uL; Eosinophils% 3.6 % (0-5); Hematocrit 31.3 % (37-47); Hemoglobin 10.2 g/dL (12.0-15.0); Lymphocyte # 1.76 X10^3/ul (0.83-4.51); Lymphocyte % 22.9 % (19-41); Mean Corp Hgb Conc 32.6 g/dL (32-36); Mean Corpuscular Hgb 29.7 pg (27.0-32.0); Mean Platelet Vol. 10.1 fl (6.2-12.0); Monocyte# 0.62 X10^3/uL; Monocyte% 8.1 % (0-10); NRBC Flagged by Analyzer 0 % (0-5); Neutrophil # 4.93 X10^3/uL (2.7-7.7); Neutrophil % 64.1 % (47-70); Platelet Count 383 K/mm3 (150-450); RBC Distribution Width CV 13.2 % (11.6-14.6); RBC Distribution Width SD 43.5 fl (35.1-43.9); Red Blood Count 3.44 M/mm3 (4.2-5.4); White Blood Count 7.7 K/mm3 (4.4-11.0)
[2024-07-21 06:13] LABS: Anion Gap 12 (5-15); BUN 17 mg/dL (4-19); BUN/Creat Ratio 16.6 RATIO (10-20); Calcium,Total 9.8 mg/dL (7.6-11.0); Carbon Dioxide 26.8 mmol/L (21.0-32.0); Chloride 98 mmol/L (98-108); Creatinine, Serum 0.99 mg/dL (0.70-1.20); EST Glomerular Filtration Rate 60 (>60); Estimated Creatinine Clearance 60.99 ml/min (50-250); Glucose 107 mg/dL (70-99); Potassium 3.8 mmol/L (3.3-5.1); Sodium Level 136 mmol/L (133-145)
[2024-07-21] MEDS: dilTIAZem CD 300 MG Capsule PO (08:18)
[2024-07-21 08:19] VITALS: BP 109/71; PULSE 63
[2024-07-21] MEDS: APIXABAN 5 MG TABLET PO ×2 (08:19→21:06)
[2024-07-21] MEDS: Menthol/Lanolin/Calamine/Znox 113 GM Tube 1 APPLIC TOPICAL (08:19)
[2024-07-21] MEDS: hydroCHLOROthiazide 25 MG Tablet PO (08:19)
[2024-07-21] MEDS: Metoprolol(XL)Succ 100 MG Tablet PO ×2 (08:19→21:06)
[2024-07-21] MEDS: Ascorbic Acid 500 MG Tablet PO (11:02)
[2024-07-21] MEDS: Multivitamins,Therapeutic Tablet 1 TABLET PO (11:02)
[2024-07-21] MEDS: Cholecalciferol (VIT D3) 25 MCG TABLET (1,000 UNITS) 50 MCG PO (11:02)
[2024-07-21] MEDS: Ferrous Sulfate 325 MG Tablet 650 MG PO (11:02)
--- NOTE | 2024-07-21 12:02 | CASEMGMT ---
Social Work SW received VM from shift production associate nursing stated pt is requesting to set DC date and to follow up. - SW met with pt at bedside to discuss DC date. Pt voiced wanting to DC home this date. SW validated request but educated to Medicare guidelines of a 3-day notice, though offered to DC 07/23. Explained the goal is to ensure a smooth, safe, planned DC to ensure success at home. Explained the coordination with HHC referrals, IDT planning for DC, not receiving services the day of DC, and to allow therapy a day to finalize exercises and treatment plan for home. Pt disappointed and became tearful, explaining her is very lonely at home without her, and simply wanting to be home, though pt agreed to DC 07/22. SW empathized with feelings and pt wanting to be home, though, noted now pt and have a DC date to look forward to. SW educated to HHC vs OP therapy. Pt prefers HHC and has no agency preference. SW provided list of skilled HHC agencies within geographical area, INN with insurance, that include quality and resource data via [employer] guide. Pt to review and notify this worker of selection. Pt denied DME needs. Pt will arrange transport home. - SW updated IDT. - SW received phone call from Ana SHAY, inquiring about discussion between SW and pt on DC date. RHONA educated to above. LAURITA explained pt and family are frustrated with lack of communication between pt and nursing, and nursing not communicating pt's wishes to this worker. RHONA apologized for experience, and noted the VM from shift production associate was the first time this worker heard of pt wanting to DC. LAURITA assured this worker that pt has been asking to DC for several days. LAURITA provided additional examples of their perception of miscommunication between pt and nursing, thus, resulting it pt's increased frustration now with DC planning. LAURITA acknowledged the policies set forth by and proper DC planning, but if pt can DC 07/22, all would be appreciative. RHONA apologized again for experience and acknowledged pt's and family's frustration, as this worker was unaware. Noted this worker will notify Director for appropriate follow-up. DIL appreciative. SW to speak with Director with moving pt's DC date and follow up with pt on the outcome. DIL appreciative. - SW spoke with Director on above conversation. Director to follow up and agreed for pt to DC 07/21 per request. - SW spoke with pt at bedside to update on conversations with DIL and Director. Agreed to DC pt 07/21. Pt very appreciative. Pt selected [facility]. SW to place referral. - RHONA sent referral via [employer] [facility] for PT/OT Plan: DC home with 07/21, [facility] Sheila Ross VENDOR MANAGEMENT SPECIALIST SOLDERING MACHINE SETTER
--- NOTE | 2024-07-21 12:10 | CASEMGMT ---
ocial Work SW received VM from shift production associate nursing stated pt is requesting to set DC date and to follow up. - SW met with pt at bedside to discuss DC date. Pt voiced wanting to DC home this date. SW validated request but educated to Medicare guidelines of a 3-day notice, though offered to DC 07/23. Explained the goal is to ensure a smooth, safe, planned DC to ensure success at home. Explained the coordination with HHC referrals, IDT planning for DC, not receiving services the day of DC, and to allow therapy a day to finalize exercises and treatment plan for home. Pt disappointed and became tearful, explaining her is very lonely at home without her, and simply wanting to be home, though pt agreed to DC 07/22. SW empathized with feelings and pt wanting to be home, though, noted now pt and have a DC date to look forward to. SW educated to HHC vs OP therapy. Pt prefers HHC and has no agency preference. SW provided list of skilled HHC agencies within geographical area, INN with insurance, that include quality and resource data via [employer] guide. Pt to review and notify this worker of selection. Pt denied DME needs. Pt will arrange transport home. - SW updated IDT. - SW received phone call from Ana SHAY, inquiring about discussion between SW and pt on DC date. RHONA educated to above. LAURITA explained pt and family are frustrated with lack of communication between pt and nursing, and nursing not communicating pt's wishes to this worker. RHONA apologized for experience, and noted the VM from shift production associate was the first time this worker heard of pt wanting to DC. LAURITA assured this worker that pt has been asking to DC for several days. LAURITA provided additional examples of their perception of miscommunication between pt and nursing, thus, resulting it pt's increased frustration now with DC planning. LAURITA acknowledged the policies set forth by and proper DC planning, but if pt can DC 07/22, all would be appreciative. RHONA apologized again for experience and acknowledged pt's and family's frustration, as this worker was unaware. Noted this worker will notify Director for appropriate follow-up. LAURITA appreciative. SW to speak with Director with moving pt's DC date and follow up with pt on the outcome. DIL appreciative. - SW spoke with Director on above conversation. Director to follow up and agreed for pt to DC 07/22 per request. - SW spoke with pt at bedside to update on conversations with DIL and Director. Agreed to DC pt 07/22. Pt very appreciative. Pt selected [facility]. SW to place referral. - SW sent referral via [employer] [facility] for PT/OT Plan: DC home with 07/22, [facility] PT/OT Sheila Ross CUSTOM TAILOR INSPECTOR OPTICAL INSTRUMENT
--- NOTE | 2024-07-21 12:25 | CASEMGMT ---
Social Work SW completed BIMS () and PHQ-2 () for MDS assessment. Sheila Ross COKE WORKER SPLIT LEATHER MOSSER
[2024-07-21 17:08] VITALS: BP 118/71; PULSE 55; RESP 16; TEMP 36.6; O2SAT 98
[2024-07-21] MEDS: Tamsulosin HCl 0.4 MG Capsule PO (17:09)
--- NOTE | 2024-07-21 20:30 | DS.PCM_ITS ---
Providers Date of Admission: 07/06/24 Primary Care Physician: Dr. Navdeep Ulloa MD Reason For Visit: R TOTAL HIP ARTHROPLASTY Diagnosis Discharge Diagnosis (1) Debility: Status: Acute Code(s): R53.81 - Other malaise (2) Status post total hip replacement, right: Status: Acute Code(s): Z96.641 - Presence of right artificial hip joint (3) Atrial fibrillation with RVR: Status: Acute Code(s): I48.91 - Unspecified atrial fibrillation (4) Essential (primary) hypertension: Status: Acute Code(s): I10 - Essential (primary) hypertension (5) Obstructive sleep apnea: Status: Acute Code(s): G47.33 - Obstructive sleep apnea (adult) (pediatric) (6) Obesity: Status: Acute Code(s): E66.9 - Obesity, unspecified (7) Iron deficiency anemia: Status: Acute Code(s): D50.9 - Iron deficiency anemia, unspecified (8) Chronic kidney disease, stage 3a: Status: Chronic Code(s): N18.31 - Chronic kidney disease, stage 3a (9) Hyperlipidemia, unspecified: Status: Acute Code(s): E78.5 - Hyperlipidemia, unspecified (10) Venous insufficiency: Status: Acute Code(s): I87.2 - Venous insufficiency (chronic) (peripheral) Plan 74 year old female with below past medical history underwent right total hip arthroplasty 06/30/[address] Bergeron ([facility]), postoperative course complicated by atrial fibrillation with RVR, admitted to TCU with debility, here for rehabilitation, strengthening, prior to discharge home with . * Debility - PT/OT. * Pain - Tylenol 1000mg q8, Oxycodone 5-10mg q4 prn pain (6-10). * Bowel - Miralax 17gm daily, senna/colace 2 tablets bid, Magnesium citrate 300mL po x 1 dose, then daily prn. * Adult immunization - Administer pneumonia vaccine, covid vaccine, flu vaccine as appropriate. * DVT prophylaxis - Eliquis. * Atrial fibrillation - Metoprolol succinate 100mg daily, Diltiazem CD 300mg daily, Eliquis 5mg bid, Schedule office appointment with Dr. Andino or Vj Gonzalez for consultation. * Iron deficiency anemia - Ferrous sulfate 650mg daily, Vitamin C 500mg bid thru 07/25/2024. * Hyperlipidemia - Atorvastatin 10mg qhs. * Infection prophylaxis - Cefadroxil 500mg q12 thru 07/20/2024. * Vitamin D deficiency - D3 50mcg daily. * Rash - HC 2.5% topical bid thru 07/11/2024. * Nutrition - MVI 1 tablet daily. * GERD - Pantoprazole 40mg daily. Medications at Discharge Home Medications calcium 600 mg (as carbonate)-vitamin D3 5 mcg (200 unit) tablet 1 tab PO BID supplement 09/24/20 cholecalciferol (vitamin D3) 50 mcg (2,000 unit) capsule (Vitamin D3) 2,000 unit PO DAILY supplement 09/24/20 fiber 3 cap PO DAILY supplement 09/24/20 atorvastatin 10 mg tablet 10 mg PO QHS cholesterol 07/06/24 multivitamin (Daily Multi-Vitamin tablet) 1 tab PO DAILY Supplement 07/06/24 acetaminophen 500 mg tablet 1,000 mg (2 x 500 mg) PO Q8 #0 tabs 07/21/24 apixaban 5 mg tablet (Eliquis) 5 mg PO BID 30 days #60 tabs 07/21/24 diltiazem HCl 300 mg capsule,extended release 24 hr 300 mg PO DAILY 30 days #30 caps 07/21/24 hydrochlorothiazide 25 mg tablet 25 mg PO DAILY 30 days #30 tabs 07/21/24 metoprolol succinate 100 mg tablet,extended release 24 hr 100 mg PO BID 30 days #60 tabs 07/21/24 oxycodone 5 mg tablet 5 - 10 mg (1 - 2 x 5 mg) PO Q4H PRN PRN Pain Score 6-10 Or Pre Pt/Ot 7 days #42 tabs 07/21/24 sennosides 8.6 mg-docusate sodium 50 mg tablet (Stimulant Laxative Plus) 2 tab PO BID 30 days #120 tabs 07/21/24 Hospital Course Operations total hip replacement (Right.) Procedures None Summary of Care Provided Minutes Spent on Discharge: 35 Hospital Course: 74 year old female with below past medical history underwent right total hip arthroplasty 06/30/[address] Bergeron ([facility]), postoperative course complicated by atrial fibrillation with RVR, admitted to TCU with debility, here for rehabilitation, strengthening, prior to discharge home with . Discharge home with 07/22/2024, [facility] PT/OT. Physical Exam Const alert General Appearance: cooperative HEENT normocephalic Eyes PERRL and EOMs intact bilaterally Neck supple, no JVD and no carotid bruits Resp normal respiratory effort, normal air movement and clear to auscultation bilaterally Cardio regular rate and regular rhythm GI normal to inspection, nondistended, normoactive bowel sounds, non-tender and non-distended Extremity normal capillary refill General Extremity: Negative for edema Skin no rashes or lesions noted General Skin Exam: no breakdown Psych affect normal Appearance: appropriate Weight / BMI Weight Weight: 101.877 kg Body Mass Index (BMI) 36.2 ABG / Lab / Microbiology Data 07/21/24 05:14 07/21/24 05:14 Laboratory: Laboratory Results - last 24 hr 07/21/24 05:14: WBC 7.7, RBC 3.44 L, Hgb 10.2 L, Hct 31.3 L, MCV 91.0, MCH 29.7, MCHC 32.6, RDW Std Deviation 43.5, RDW Coeff of Lance 13.2, Plt Count 383, MPV 10.1, Immature Gran % (Auto) 0.400, Neut % (Auto) 64.1, Lymph % (Auto) 22.9, [place] % (Auto) 8.1, Eos % (Auto) 3.6, Baso % (Auto) 0.9, Absolute Neuts (auto) 4.9, Absolute Lymphs (auto) 1.76, Nucleated RBC % 0, Sodium 136, Potassium 3.8, Chloride 98, Carbon Dioxide 26.8, Anion Gap 12, BUN 17, Creatinine 0.99, Estim Creat Clear Calc 60.99, Est GFR (MDRD) Non-Af 60, BUN/Creatinine Ratio 16.6, G lucose 107 H, Calcium 9.8 D/C Instructions Discharge Diet: No restrictions Discharge Activity: Return to Normal Activity, May Shower and Use Walker Weight Bearing Status: Weight bearing as tolerated Call your doctor if you observe: Fever of 101 or Higher, Inability to urinate, Inability to have a bowel movement, Shortness of breath, Dizziness, Fainting spells, Swelling in the ankles, Chest pain and Uncontrolled pain DC O2, CPAP, BIPAP Needs Home O2 Discharge instructions: No Additional Instructions: Discharge home with 07/22/2024, [facility] PT/OT. Please Follow Up With: Maureen Reeys MD When: 4 weeks. Meaningful Use Info Meaningful Use Meaningful Use Diagnoses (Choose all that apply): None applicable Ischemic Stroke Statin Dosing Therapy Reference: STATIN DOSE THERAPY REFERENCE: * Patients > 75 years receive moderate or high dose statin therapy. * Patients 75 years or YOUNGER should receive HIGH intensity statin dose unless contraindicated. You will be required to document reason for non-treatment if statin daily dose does not meet guidelines. HIGH DOSE STATIN THERAPY DAILY Atorvastatin > than or = to 40 mg Rosuvastatin > than or = to 20 mg Amlodipine + Atorvastatin > than or = to 2.5/40 mg Ezetimibe + Simvastatin 10/80 mg Simvastatin 80mg Discharge Plan Admission Admit Date/Time: 07/06/24 13:28 Primary Reason for Your Visit: Debility. Attending Provider: New Bear Chi Primary Care Provider: Navdeep Ulloa Instructions Additional Instructions / Restrictions: Discharge home with 07/22/2024, [facility] PT/OT. Discharge Orders/Prescriptions Prescriptions: New sennosides-docusate sodium [Stimulant Laxative Plus] 8.6-50 mg Tablet 2 tab PO BID 30 Days Qty: 120 0RF metoprolol succinate 100 mg Tablet Extended Release 24 Hr 100 mg PO BID 30 Days Qty: 60 0RF acetaminophen 500 mg Tablet 1,000 mg PO Q8 Qty: 0 0RF diltiazem HCl 300 mg Capsule,Extended Release 24hr 300 mg PO DAILY 30 Days Qty: 30 0RF hydrochlorothiazide 25 mg Tablet 25 mg PO DAILY 30 Days Qty: 30 0RF oxycodone 5 mg Tablet 5 - 10 mg PO Q4H PRN PRN (Reason: Pain Score 6-10 Or Pre Pt/Ot) 7 Days Qty: 42 0RF Eliquis 5 mg Tablet 5 mg PO BID 30 Days Qty: 60 0RF Continued calcium carbonate-vitamin D3 600 mg(1,500mg) -200 unit Tablet 1 tab PO BID fiber Capsule 3 cap PO DAILY cholecalciferol (vitamin D3) [Vitamin D3] 50 mcg (2,000 unit) Capsule 2,000 unit PO DAILY atorvastatin 10 mg tablet 10 mg PO QHS multivitamin [Daily Multi-Vitamin] Tablet 1 tab PO DAILY Discontinued ferrous sulfate [Iron (ferrous sulfate)] 325 mg (65 mg iron) Tablet 650 mg PO DAILY Multivit W/Fluoride 1 tab PO/SL DAILY Vitamin C 100 mg Tablet 500 mg PO DAILY acetaminophen 500 mg tablet 1,000 mg PO Q8H PRN PRN (Reason: pain) cefadroxil 500 mg capsule 500 mg PO Q12H diltiazem HCl 300 mg capsule,extended release 24hr 300 mg PO DAILY docusate sodium 100 mg capsule 100 mg PO BID PRN (Reason: Constipation) hydrocortisone 2.5 % cream 1 applic topical BID magnesium hydroxide 400 mg/5 mL suspension 30 ml PO DAILY PRN (Reason: constipation) oxycodone 5 mg tablet 5 - 10 mg PO Q6H PRN (Reason: pain (scale score 7-10)) pantoprazole 40 mg tablet,delayed release (DR/EC) 40 mg PO DAILY Patient Comments: Take 1 tablet by mouth daily at 6am polyethylene glycol 3350 17 gram/dose powder 17 g PO DAILY PRN (Reason: constipation) Eliquis 5 mg tablet 5 mg PO BID metoprolol succinate 25 mg tablet extended release 24 hr 100 mg PO DAILY Referrals / Follow Up: Roxanne Quesada CNP [Other] (Follow-up as needed for your A-fib. You will transfer to Logistics Team Lead Dr. Mena at the [facility] on August 11. ) Rosalio Mena MD [Med Staff - Active Staff] - 08/11/24 11:00 am Navdeep Ulloa MD [[facility]] - 07/27/24 11:20 am Disposition Disposition (needs filled in before D/C Order can be placed): Home Health Service
[2024-07-21 21:06] VITALS: BP 109/63; PULSE 69
[2024-07-21] MEDS: Senna/Docusate Sodium 1 Tablet 2 TABLET PO (21:06)
[2024-07-21] MEDS: Atorvastatin Calcium 10 MG Tablet PO (21:06)
[2024-07-22] MEDS: Acetaminophen 500 MG Tablet 1000 MG PO (05:43)
[2024-07-22 05:54] VITALS: PULSE 59; RESP 16; O2SAT 59
[2024-07-22 09:25] VITALS: BP 118/74; PULSE 72; RESP 17; TEMP 36.4; O2SAT 97
[2024-07-22] MEDS: hydroCHLOROthiazide 25 MG Tablet PO (09:29)
[2024-07-22] MEDS: APIXABAN 5 MG TABLET PO (09:29)
[2024-07-22] MEDS: dilTIAZem CD 300 MG Capsule PO (09:29)
[2024-07-22] MEDS: Senna/Docusate Sodium 1 Tablet 2 TABLET PO (09:30)
[2024-07-22 09:31] VITALS: PULSE 72
[2024-07-22] MEDS: Metoprolol(XL)Succ 100 MG Tablet PO (09:31)
[2024-07-22] MEDS: Menthol/Lanolin/Calamine/Znox 113 GM Tube 1 APPLIC TOPICAL (09:32)
[2024-07-22 10:00] VITALS: BP 118/74; PULSE 72; RESP 17; TEMP 36.4; O2SAT 97
== END 2024-07-22 10:55 | disposition home health service (06) | DRG 561 ==
PROVIDERS: Admitting Provider Family Medicine Geriatric Medicine; PCP Internal Medicine; Visit Provider Family Medicine Geriatric Medicine
DX: Z47.1 Aftercare following joint replacement surgery (principal); D50.9 Iron deficiency anemia, unspecified; N18.31 Chronic kidney disease, stage 3a; I12.9 Hypertensive chronic kidney disease with stage 1 through stage 4 chronic kidney disease, or unspecified chronic kidney disease; E66.9 Obesity, unspecified; I48.91 Unspecified atrial fibrillation; K21.9 Gastro-esophageal reflux disease without esophagitis; E55.9 Vitamin D deficiency, unspecified; I87.2 Venous insufficiency (chronic) (peripheral); E78.5 Hyperlipidemia, unspecified; G47.33 Obstructive sleep apnea (adult) (pediatric); Z96.641 Presence of right artificial hip joint; Z79.899 Other long term (current) drug therapy; Z68.35 Body mass index [BMI] 35.0-35.9, adult; R33.9 Retention of urine, unspecified
CPT/HCPCS: 36415; 80048; 80061; 82306; 85014; 85018; 85025; 92507; 92523; 93005; 97110; 97116; 97162; 97166; 97530; 97535; 97802

== ENCOUNTER → 2024-08-17 | Outpatient (CLI) | payer MEDICARE, OTHER, SELFPAY ==
[2024-08-17 11:54] LABS: Anion Gap 11 (5-15); BUN 13 mg/dL (4-19); BUN/Creat Ratio 13.1 RATIO (10-20); Calcium,Total 9.7 mg/dL (7.6-11.0); Carbon Dioxide 27.3 mmol/L (21.0-32.0); Chloride 102 mmol/L (98-108); Creatinine, Serum 0.96 mg/dL (0.70-1.20); EST Glomerular Filtration Rate 62 (>60); Glucose 152 mg/dL (70-99); Potassium 3.6 mmol/L (3.3-5.1); Sodium Level 141 mmol/L (133-145)
== END | disposition home or self-care (01) ==
PROVIDERS: PCP Internal Medicine; Referring Provider Internal Medicine Cardiovascular Disease; Visit Provider Internal Medicine Cardiovascular Disease
DX: I10 Essential (primary) hypertension (principal)
CPT/HCPCS: 36415; 80048; 84443

== ENCOUNTER → 2024-08-24 | Outpatient (CLI) | payer MEDICARE, OTHER, SELFPAY ==
--- NOTE | 2024-08-24 12:42 | VDLE_ITS ---
Reason For Study Reason For Study: Swelling RIGHT LEFT GSV is normal. GSV is normal. CFV is compressible, spontaneous, phasic, competent CFV is compressible, spontaneous, phasic, competent, and demonstrates normal augmentation. and demonstrates normal augmentation. FV is compressible, spontaneous, phasic, competent FV is compressible, spontaneous, phasic, competent and demonstrates normal augmentation. and demonstrates normal augmentation. POP V is compressible, spontaneous, phasic, competent POP V is compressible, spontaneous, phasic, competent and demonstrates normal augmentation. and demonstrates normal augmentation. T/P Trunk is compressible. T/P Trunk is compressible. PTV is compressible. PTV is compressible. RT PerV is compressible. LT PerV is compressible. Procedure This is a venous duplex using B-mode, color flow and spectral Doppler. Exam performed in department. VL/Venous Duplex US - Ted Extrem Interpretation Summary Deep veins of the bilateral lower extremities are patent and compressible segme ntally. There is no evidence of bilateral lower extremity deep vein thrombosis. The bilateral great saphenous veins appea r patent and compressible segmentally. Ordering Physician: Rosalio Mena Referring Physician: Navdeep Ulloa M.D. Performed By: Melisa Mace RVT
== END | disposition home or self-care (01) ==
LOC: CVS 12:39
PROVIDERS: PCP Internal Medicine; Referring Provider Internal Medicine Cardiovascular Disease; Visit Provider Internal Medicine Cardiovascular Disease
DX: R60.0 Localized edema (principal); Z96.641 Presence of right artificial hip joint
CPT/HCPCS: 93970

== ENCOUNTER 2024-08-25 17:01 | Emergency (ER) | payer MEDICARE, OTHER, SELFPAY ==
[2024-08-25 17:02] VITALS: BP 122/62; PULSE 42; RESP 16; TEMP 36.8; O2SAT 95; BMI 36.1
--- NOTE | 2024-08-25 17:11 | RAD_ITS ---
PROCEDURE: CHEST PA AND LATERAL 08/25/2024 REASON FOR EXAM: DYSPNEA TECHNIQUE: CHEST PA AND LATERAL COMPARISON: 09/23/2020. FINDINGS: The heart is enlarged. Vascular indistinctness of the lung bases suggestive of edema. No acute osseous abnormalities. RAD/Chest PA and Lateral IMPRESSION: Probable mild edema in the setting of cardiomegaly. Reading Location: [place] [id number]
--- NOTE | 2024-08-25 17:12 | EKG12_ITS ---
Test Reason : palps Blood Pressure : */* mmHG Vent. Rate : 44 BPM Atrial Rate : * BPM P-R Int : * ms QRS Dur : 114 ms QT Int : 504 ms P-R-T Axes : * 10 4 degrees QTcB Int : 430 ms SINUS BRADYWITH SINUS ARREST AND JUNCTIONAL ESCAPE Incomplete right bundle branch block Nonspecific ST abnormality Abnormal ECG Confirmed by Luis Mercer ([id number]), order editor MICHELLE MACE ([id number]) on 08/30/2024 11:45:02 AM Referred By: Enio Corcoran Confirmed By: Luis Mercer
--- NOTE | 2024-08-25 17:19 | EDS_ITS ---
HPI <DEMETRICE King - Last Filed: 08/25/24 20:15> History of Present Illness Chief Complaint: Palpitations Narrative Narrative: 74-year-old female presents with chest pressure, shortness of breath, and a feeling of her heart racing that has been intermittent throughout the day. She was diagnosed with atrial fibrillation on routine workup prior to a right hip replacement surgery on June 30, 2024. She had a normal echo and stress test. After surgery she has been taking metoprolol, diltiazem, Eliquis, furosemide, and potassium. She thinks that she was on furosemide 40 mg once daily prior to the surgery, but since surgery she has had worsening bilateral lower extremity swelling. She saw Dr. Mena in cardiology on 08/11/2024 who increased the furosemide to 40 mg twice daily but the swelling is not improved. She reports having bilateral lower extremity ultrasounds done yesterday negative for DVT. She is also compliant with Eliquis. [facility] <DEMETRICE King - Last Filed: 08/25/24 20:15> [facility] Medical History Atrial fibrillation with RVR Chest pain COVID-19 CPAP (continuous positive airway pressure) dependence Essential (primary) hypertension Hearing loss, left Hypertensive urgency Non-smoker Obstructive sleep apnea RBBB Home Medications ?Medication ?Instructions ?Recorded ?Last Taken ?Type cholecalciferol (vitamin D3) 50 2,000 unit PO DAILY frederick pplement 09/24/20 09/23/20 History mcg (2,000 unit) capsule (Vitamin D3) atorvastatin 10 mg tablet 10 mg PO QHS cholesterol Unknown History multivitamin (Daily Multi-Vitamin 1 tab PO DAILY Suppl ement 07/06/24 Unknown History tablet) acetaminophen 500 mg tablet 1,000 mg PO Q8 PRN pain Unknown History ascorbic acid (vitamin C) 500 mg 500 mg PO BID 5 Unknown History tablet docusate sodium 100 mg capsule 100 mg PO BID PRN const ipation 08/10/24 Unknown History ferrous sulfate 325 mg (65 mg 650 mg PO QDAY 08/10/24 Unknown History iron) tablet apixaban 5 mg tablet (Eliquis) 5 mg PO BID 30 days #60 tabs 08/12/24 Unknown Rx diltiazem HCl 300 mg capsule,24 300 mg PO DAILY 30 day s #30 caps 08/12/24 Unknown Rx hr,extended release (Tiadylt ER) furosemide 40 mg tablet (Lasix) 40 mg PO BID #180 tabs 08/12/24 Unknown Rx potassium chloride 20 mEq 20 meq PO QDAY #90 tabs 08/31 Unknown Rx tablet,extended release (K-Tab) metoprolol tartrate 100 mg tablet 100 mg PO BID Unknown History Allergy/AdvReac Type Severity Reaction Status Date / Time No Known Allergies Allergy Verified 08/25/24 17:03 Family History Mother Hypertension Asthma Diabetes COPD (chronic obstructive pulmonary disease) Crohn's disease Father , at 82. Non-Hodgkin lymphoma CHF (congestive heart failure) CVA (cerebral vascular accident) Sister CHF (congestive heart failure) Sister Diabetes Sister Hypertension Sister Fibromyalgia Sister Kidney disease Surgical History History of adenoidectomy History of colonoscopy History of hysteroscopy History of laparoscopic cholecystectomy History of laparoscopy History of left mastoidectomy History of tonsillectomy History of total right hip arthroplasty S/P tubal ligation Social History (Updated 08/25/24 @ 17:09 by Camila Cheney) household members: spouse current occupational status: retired Smoking Status: Never smoker alcohol intake: never substance use type: does not use ROS <DEMETRICE King - Last Filed: 08/25/24 20:15> ROS ED ROS Narrative Constitutional: Negative for fever, chills, malaise. CVS: Positive for palpitations, chest pain. Negative for syncope. Respiratory: Positive for shortness of breath. GI: Negative for abdominal pain, nausea, vomiting. EXAM <DEMETRICE King - Last Filed: 08/25/24 20:15> Physical Exam Narrative Exam Narrative: CONST: Patient sitting in no acute distress. EYES: Normal inspection. NECK: Normal inspection. RESP: No respiratory distress, CTAB. CVS: Bradycardic with regular rate and rhythm, no murmur, no gallop. ABD: Soft and nontender, no guarding or rebound, nondistended. SKIN: Color normal, no rash, warm, dry, intact. EXTREMITIES: Normal appearance, symmetric 2+ pitting edema of both legs below the knees. NEURO: Alert and answering questions appropriately. PSYCH: Normal affect. Const Vital Signs: 08/25/24 17:02 08/25/24 17:07 08/25/24 18:02 Temperature 98.2 F Temperature Source Oral Pulse Rate 42 L 37 L Respiratory Rate 16 15 Respiratory Effort Short of Breath Labored Blood Pressure 122/62 H 128/66 H Blood Pressure Mean 82 86 Pulse Ox 95 99 Oxygen Delivery Method Room Air Room Air 08/25/24 19:00 08/25/24 19:23 Temperature 98.2 F Temperature Source Pulse Rate 46 L 46 L Respiratory Rate 18 18 Respiratory Effort Blood Pressure 133/58 H 133/58 H Blood Pressure Mean 83 83 Pulse Ox 98 98 Oxygen Delivery Method Room Air <Dr. Enio Corcoran DO - Last Filed: 08/26/24 02:27> Physical Exam Const Vital Signs: 08/25/24 17:02 08/25/24 17:07 08/25/24 18:02 Temperature 98.2 F Temperature Source Oral Pulse Rate 42 L 37 L Respiratory Rate 16 15 Respiratory Effort Short of Breath Labored Blood Pressure 122/62 H 128/66 H Blood Pressure Mean 82 86 Pulse Ox 95 99 Oxygen Delivery Method Room Air Room Air 08/25/24 19:00 08/25/24 19:23 Temperature 98.2 F Temperature Source Pulse Rate 46 L 46 L Respiratory Rate 18 18 Respiratory Effort Blood Pressure 133/58 H 133/58 H Blood Pressure Mean 83 83 Pulse Ox 98 98 Oxygen Delivery Method Room Air [facility] <DEMETRICE King - Last Filed: 08/25/24 20:15> [facility] Narrative Medical decision making narrative: Differential includes but not limited to CHF, ACS, pneumonia Consults: Cardiology Patient presents with shortness of breath and several weeks of bilateral lower extremity edema which has not improved on diuretics. She appears well and nontoxic. Vitals are stable, she is in A-fib with slow ventricular response in the 40s. She is 95% or above on room air and speaking full sentences without distress. Lungs clear. She has symmetric pitting edema both lower extremities. Clinically I am concerned her fluid overload is caused dyspnea. CBC shows stable anemia at 11.0, otherwise normal. BMP overall unremarkable. EKG shows A-fib with slow ventricular response in the 40s. Troponins are stable at 25 and 23 ruling out ACS. BNP is elevated at 1232 and CXR shows probable mild edema. Recent echo showed normal EF of 63%. She has been on Lasix 40 mg twice daily at home without improvement; she was given a dose of IV Lasix 40 mg here. Her ambulatory pulse ox is 98%. Blood pressure stable at 130s/60s and her heart rate remains in A-fib in the 38-50 range. I discussed the case with the on-call flame brazing machine operator. Dr. Leigh agreed with the recent cardiology visit note plan to stop diltiazem since lower extremity edema has not improved. He also advised to decrease metoprolol from 100 mg BID to 50 mg BID and have the patient keep it daily log of her heart rate and follow-up in the office. Patient was comfortable with this plan and discharged in stable condition. External records reviewed: 06/23/2024 Negative cardiac perfusion stress test. Echo with EF of 63%, no significant valvular disease. Lab Data Attestation: I reviewed the patient's lab results. Labs: Laboratory Results - last 24 hr 08/25/24 08/25/24 17:10 19:10 WBC 10.8 RBC 3.74 L Hgb 11.0 L Hct 34.1 L MCV 91.2 MCH 29.4 MCHC 32.3 RDW Std Deviation 43.0 RDW Coeff of Lance 13.0 Plt Count 287 MPV 11.3 Immature Gran % (Auto) 0.500 Neut % (Auto) 68.4 Lymph % (Auto) 18.5 L [place] % (Auto) 9.5 Eos % (Auto) 2.6 Baso % (Auto) 0.5 Absolute Neuts (auto) 7.4 Absolute Lymphs (auto) 2.00 Nucleated RBC % 0 Sodium 139 Potassium 4.3 Chloride 100 Carbon Dioxide 27.8 Anion Gap 11 BUN 24 H Creatinine 1.06 Estim Creat Clear Calc 56.90 Est GFR (MDRD) Non-Af 55 L BUN/Creatinine Ratio 23.0 H Glucose 111 H Calcium 10.1 Troponin T High Sens 25 H Troponin T Hi Sens 2 Hr 23 H NT pro BNP II 1232 H Radiography Diagnostic Testing: Clinical Impression(s) from Imaging Studies Chest X-Ray 08/25/24 17:11 IMPRESSION: Probable mild edema in the setting of cardiomegaly. Reading Location: [place] [address] ED attending interpretation of 2 view chest x-ray shows normal heart size, no acute infiltrate, mild edema. EKG Initial EKG: Attestation: I personally reviewed and interpreted this EKG as follows: Interpretation: No Acute Injury Pattern and Atrial Fibrillation Comments: Atrial fibrillation at 44 bpm Incomplete right bundle branch block No STEMI <Dr. Enio Corcoran, DO - Last Filed: 08/26/24 02:27> [facility] MDM Narrative Medical decision making narrative: Differential includes but not limited to CHF, ACS, pneumonia Consults: Cardiology Patient presents with shortness of breath and several weeks of bilateral lower extremity edema which has not improved on diuretics. She appears well and nontoxic. Vitals are stable, she is in A-fib with slow ventricular response in the 40s. She is 95% or above on room air and speaking full sentences without distress. Lungs clear. She has symmetric pitting edema both lower extremities. Clinically I am concerned her fluid overload is caused dyspnea. CBC shows stable anemia at 11.0, otherwise normal. BMP overall unremarkable. EKG shows A-fib with slow ventricular response in the 40s. Troponins are stable at 25 and 23 ruling out ACS. BNP is elevated at 1232 and CXR shows probable mild edema. Recent echo showed normal EF of 63%. She has been on Lasix 40 mg twice daily at home without improvement; she was given a dose of IV Lasix 40 mg here. Her ambulatory pulse ox is 98%. Blood pressure stable at 130s/60s and her heart rate remains in A-fib in the 38-50 range. I discussed the case with the on-call flame brazing machine operator. Dr. Leigh agreed with the recent cardiology visit note plan to stop diltiazem since lower extremity edema has not improved. He also advised to decrease metoprolol from 100 mg BID to 50 mg BID and have the patient keep it daily log of her heart rate and follow-up in the office. Patient was comfortable with this plan and discharged in stable condition. External records reviewed: 06/23/2024 Negative cardiac perfusion stress test. Echo with EF of 63%, no significant valvular disease. Supervisory Physician Note Patient was seen and examined with the Advanced Practice Provider. Nursing notes and vital signs have been reviewed. Pertinent old records have been reviewed. I agree with the essential elements of the RODERICK's history, physical exam, assessment, and plan. The differential diagnosis and management options were discussed with the RODERICK. I participated in determining and agree with the management, procedures, final impression and disposition as documented. See changes noted by me. Please see addendum or separate note for any additional details. I reviewed the cardiology note from 08/11/2024. Gen: A&O x3, NAD Head: Normocephalic, atraumatic Eyes: No sclera icterus, conjunctiva clear ENT: Moist mucous membranes Neck: Trachea midline, No JVD CV: Bradycardic, irregular rhythm, no murmurs, + 2 bilateral peripheral pitting edema of the lower extremities Resp: Lungs CTA BL, no w/r/c GI: Abd soft, non-distended, non-tender, no r/r/g Musc: Full ROM, no deformity Skin: Warm, dry Neuro: Alert, oriented, grossly intact, sensation intact Psych: Cooperative, appropriate mood and affect Impression: 1. Dyspnea 2. Bilateral lower extremity edema -medication side effect versus heart failure 3. Elevated BNP 4. Chronic anemia 5. Bradycardia, suspect medication side effect 6. Atrial fibrillation Lab Data Labs: Laboratory Results - last 24 hr 08/25/24 08/25/24 17:10 19:10 WBC 10.8 RBC 3.74 L Hgb 11.0 L Hct 34.1 L MCV 91.2 MCH 29.4 MCHC 32.3 RDW Std Deviation 43.0 RDW Coeff of Lance 13.0 Plt Count 287 MPV 11.3 Immature Gran % (Auto) 0.500 Neut % (Auto) 68.4 Lymph % (Auto) 18.5 L [place] % (Auto) 9.5 Eos % (Auto) 2.6 Baso % (Auto) 0.5 Absolute Neuts (auto) 7.4 Absolute Lymphs (auto) 2.00 Nucleated RBC % 0 Sodium 139 Potassium 4.3 Chloride 100 Carbon Dioxide 27.8 Anion Gap 11 BUN 24 H Creatinine 1.06 Estim Creat Clear Calc 56.90 Est GFR (MDRD) Non-Af 55 L BUN/Creatinine Ratio 23.0 H Glucose 111 H Calcium 10.1 Troponin T High Sens 25 H Troponin T Hi Sens 2 Hr 23 H NT pro BNP II 1232 H Radiography Diagnostic Testing: Clinical Impression(s) from Imaging Studies Chest X-Ray 08/25/24 17:11 IMPRESSION: Probable mild edema in the setting of cardiomegaly. Reading Location: [place] [address] Discharge Plan Triage Chief Complaint: Palpitations ED Midlevel Provider: Angelique Cm ED Provider: Enio Corcoran Dx/Rx/DC Orders Clinical Impression: Dyspnea, Bilateral edema of lower extremity, Elevated brain natriuretic peptide (BNP) level, Atrial fibrillation with slow ventricular response Instructions: AFib Dc Prescriptions: No Action ascorbic acid (vitamin C) 500 mg tablet 500 mg PO BID acetaminophen 500 mg tablet 1,000 mg PO Q8 PRN (Reason: pain) docusate sodium 100 mg capsule 100 mg PO BID PRN (Reason: constipation) ferrous sulfate 325 mg (65 mg iron) tablet 650 mg PO QDAY potassium chloride [K-Tab] 20 mEq tablet extended release 20 meq PO QDAY Qty: 90 3RF furosemide [Lasix] 40 mg tablet 40 mg PO BID Qty: 180 3RF Eliquis 5 mg tablet 5 mg PO BID 30 Days Qty: 60 0RF diltiazem HCl [Tiadylt ER] 300 mg capsule,extended release 24 hr 300 mg PO DAILY 30 Days Qty: 30 0RF cholecalciferol (vitamin D3) [Vitamin D3] 50 mcg (2,000 unit) Capsule 2,000 unit PO DAILY atorvastatin 10 mg tablet 10 mg PO QHS multivitamin [Daily Multi-Vitamin] Tablet 1 tab PO DAILY metoprolol tartrate 100 mg tablet 100 mg PO BID Primary Care Provider: Navdeep Ulloa Referrals: Navdeep Ulloa MD [Primary Care Provider] - Activity Restrictions/Additional Instructions: The flame brazing machine operator recommended you stop taking diltiazem and decrease the metoprolol to 50 mg twice a day. Keep a daily log of your heart rate and call your flame brazing machine operator tomorrow to schedule a follow-up appointment. If symptoms worsen before you see them come back to the emergency room. Print Language: Luxembourgish Disposition Disposition: Home, Self Care Discharge Date/Time: 08/25/24 19:49
[2024-08-25 17:34] LABS: Absolute Neutrophil Count 7.4 X10^3/uL (2.0-7.7); Basophil# 0.05 X10^3/uL; Basophil% 0.5 % (0-1); Eosinophil# 0.28 X10^3/uL; Eosinophils% 2.6 % (0-5); Hematocrit 34.1 % (37-47); Lymphocyte % 18.5 % (19-41); Mean Corp Hgb Conc 32.3 g/dL (32-36); Mean Corpuscular Hgb 29.4 pg (27.0-32.0); Mean Corpuscular Volume 91.2 fL (81-99); Mean Platelet Vol. 11.3 fl (6.2-12.0); Monocyte# 1.03 X10^3/uL; Monocyte% 9.5 % (0-10); NRBC Flagged by Analyzer 0 % (0-5); Neutrophil # 7.43 X10^3/uL (2.7-7.7); Neutrophil % 68.4 % (47-70); Platelet Count 287 K/mm3 (150-450); Red Blood Count 3.74 M/mm3 (4.2-5.4); White Blood Count 10.8 K/mm3 (4.4-11.0)
[2024-08-25 18:02] VITALS: BP 128/66; PULSE 37; RESP 15; O2SAT 99
--- OUTSIDE RECORDS SUMMARY | 2024-08-25 18:11 | XMS RPT_ITS | CCD ---
Author Organization [facility] Inform ion Partnership [facility] Care Team Providers Care Marketing Communications Manager Name Role Phone Johnna PANIAGUA, Alfred Rodgers Unavailable [phone] Keya Urias PA-C Unavailable Zhang PANIAGUA, Navdeep Obrien Primary Care Provider Zhang PANIAGUA, Navdeep Obrien Primary Care Provider Zhang PANIAGUA, Navdeep Obrien Primary Care Provider Zhang PANIAGUA, Navdeep Obrien Primary Care Provider Ludy POULTRY HATCHERY MANAGER.PROTEIN PURIFICATION SCIENTIST, Mary M Unavailable Sissen PSS, Evaristo Unavailable Unavailable Eligio Gibbons MD Unavailable Eligio Gibbons MD Unavailable Chema, [place] Unavailable Navdeep Ulloa MD Unavailable [phone] ELIGIO GIBBONS Referring Unavail able ZHANG, VANDANA Primary Care Unavailable ELIGOI GIBBONS Referring Unavail able ZHANG, VANDANA Primary Care Unavailable ELIGIO GIBBONS Referring Unavail able ZHANG, NAVDEEP Obrien Primary Care Unavailable DOOKHAN, TATY Referring Unavailable ULLOA, VANDANA Primary Care Unavailable DOOKHAN, TATY Referring Unavailable ULLOA, VANDANA Primary Care Unavailable DOOKHAN, TATY Referring Unavailable ULLOA, VANDANA Primary Care Unavailable ELIGIO GIBBONS Admitting Unavail able ELIGIO GIBBONS Attending Unavail able ULLOA, VANDANA Primary Care Unavailable DOOKHAN, TATY Consulting Unavailable ELIGIO GIBBONS Referring Unavail able ULLOA, VANDANA Primary Care Unavailable ELIGIO GIBBONS Referring Unavail able ULLOA, VANDANA Primary Care Unavailable Chema PANIAGUA, Dr. [place] Landaverde Admit Provider Chema PANIAGUA, Dr. [place] Landaverde Attending Provider Zhang PANIAGUA, Dr. Sethi Primary Care Provider Lenny PANIAGUA, Dr. Barksdale Attending Provider Chema PANIAGUA, Dr. [place] Landaverde Referring Provider Rajesh PANIAGUA, Dr. Santamaria Attending Provider Charis PT, Pradip Unavailable Julissa RN, Wanda Unavailable Zhang PANIAGUA, Dr. Sethi Referring Provider Zhang, Navdeep Primary Care Unavailable Rajesh, Rosalio Attending Unavailable Rajesh, Rosalio Referring Unavailable Ulloa, Navdeep Primary Care Unavailable RajeshRosalio Attending Unavailable Rajesh, Rosalio Referring Unavailable Ulloa, Navdeep Primary Care Unavailable Ulloa, Navdeep Referring Unavailable RajeshRosalio Attending Unavailable Chema, [place] Referring Unavailable Ulloa, Navdeep Primary Care Unavailable Olga Galvez Attending Unavailable Chema, [place] Referring Unavailable Ulloa, Navdeep Primary Care Unavailable RajeshRosalio Attending Unavailable Ulloa, Navdeep Primary Care Unavailable Chema, [place] Admitting Unavailable Chema, New Chi Attending Unavailable ULLOA, VANDANA Primary Care Unavailable BRYAN SAL Referring Unavailable ELIGIO GIBBONS Attending Unavail able ULLOA, VANDANA Primary Care Unavailable BRYAN SAL Attending Unavailable MARY GLOVER Referring Unavailable ULLOA, VANDANA Primary Care Unavailable BETHANY HODGES Attending Unavailable ULLOA, VANDANA Primary Care Unavailable ULLOA, VANDANA Primary Care Unavailable JAMAL GR Attending Unavailable MARY GLOVER Referring Unavailable ULLOA, VANDANA Primary Care Unavailable MARY GLOVER Referring Unavailable ULLOA, VANDANA Primary Care Unavailable ALISE V, BRYAN Attending Unavailable ULLOA, VANDANA Primary Care Unavailable ULLOA, VANDANA Primary Care Unavailable ALISE V, BRYAN Referring Unavailable PEGGY PHILLIPS Attending Unavailable ULLOA, VANDANA Primary Care Unavailable ALISE V, BRYAN Referring Unavailable ULLOA, VANDANA Primary Care Unavailable ALISE V, BRYAN Referring Unavailable PEGGY PHILLIPS Attending Unavailable ULLOA, VANDANA Primary Care Unavailable JAMAL GR Attending Unavailable ELIGIO GIBBONS Referring Unavail able ULLOA, VANDANA Primary Care Unavailable TATY HIDALGO Attending Unavailable ULLOA, VANDANA Primary Care Unavailable ULLOA, VANDANA Primary Care Unavailable ALISE V, BRYAN Referring Unavailable ULLOA, VANDANA Primary Care Unavailable ALISE V, BRYAN Referring Unavailable PEGGY PHILLIPS Attending Unavailable ULLOA, VANDANA Primary Care Unavailable ULLOA, VANDANA Attending Unavailable ULLOA, VANDANA Primary Care Unavailable ULLOA, VANDANA Referring Unavailable ULLOA, VANDANA Attending Unavailable ULLOA, VANDANA Primary Care Unavailable ULLOA, VANDANA Primary Care Unavailable ULLOA, VANDANA Attending Unavailable ULLOA, VANDANA Primary Care Unavailable ULLOA, VANDANA Referring Unavailable MARY GLOVER Attending Unavailable ULLOA, VANDANA Primary Care Unavailable ULLOA, VANDANA Referring Unavailable ULLOA, VANDANA Primary Care Unavailable ULLOA, VANDANA Primary Care Unavailable ULLOA, VANDANA Referring Unavailable ULLOA, VANDANA Primary Care Unavailable ULLOA, VANDANA Attending Unavailable Lenny PANIAGUA, Dr. Barksdale Attending Provider [phone] Dr. Rosalio Mena MD Referring Provider Eligio Gibbons MD Unavailable Eligio Gibbons MD Unavailable Charis LORA, Pradip Unavailable Allergies Allergy Classification Reported Allergen(s) Allergy Type Date of Onset Reaction(s) Facility Acetaminophen / HYDROcodone (1 source) Acetaminophen / HYDROcodone Drug Allergy 1 Other: See Comments [facility] (20 sources) Acetaminophen / HYDROcodone; Translations: [HYDROCODONE-ACETA MINOPHEN] Drug Allergy Other: See Comments [facility] Work Phone: Medications Current Medications Medication Drug Class(es) Dates Sig (Normalized) Sig (Original) acetaminophen 500 mg / diphenhydrAMINE hydrochloride 25 mg oral tablet (20 sources) Histamine-1 Receptor Antagonist Start: 01-24-2022 diphenhydrAMINE- Acetaminophen (TYLENOL PM EXTRA STRENGTH) 25-500 mg tab At bedtime for sleep 01/24/2022 Active Comment on above: At bedtime for sleep apixaban 5 mg oral tablet (20 sources) Factor Xa Inhibitor Start: 06-09-2024 End: 06-09-2025 take 1 tablet by mouth twice daily apixaban (ELIQUIS) 5 mg tab(s) Take 1 tablet by mouth two times a day. 60 tablet 11 06/09/2024 06/09/2025 Active ascorbic acid 500 mg oral tablet (20 sources) Vitamin C Start: 08-10-2024 take 1 tablet by mouth twice daily Ascorbic Acid (Vitamin C) 500 mg tablet Active 500 mg PO TWICE A DAY August 10, 2024 12:00am Start: 07-05-2024 End: 07-15-2024 take 1 tablet by mouth twice daily Ascorbic Acid (Vitamin C) 500 mg tablet Active 500 mg PO TWICE A DAY August 10, 2024 12:00am Start: 09-24-2020 End: 07-21-2024 take 5 tablets by mouth once daily Ascorbic Acid (Vitamin C) (Vitamin C) 100 mg Tablet Discontinued 500 mg PO DAILY September 24, 2020 12:00am July 21, 2024 8:33pm take 1 tablet by ariel th once daily ascorbic acid (VITAMIN C ORAL) Take 1 tablet by mouth once daily. Active take 1 tablet by ariel th once daily ascorbic acid (VITAMIN C ORAL) Take 1 tablet by mouth once daily. 0 Active Comment on above: Take 1 tablet by ariel th once daily. atorvastatin 10 mg oral tablet (20 sources) HMG-CoA Reductase Inhibitor Start: 03-18-19 take 1 tablet by mouth once daily at bedtime for hyperlipidemia atorvastatin (LIPITOR) 10 mg tablet Take 1 tablet by mouth daily at bedtime. For cholesterol. 90 tablet 3 03/18/2024 Active Start: 03-17-2023 End: 03-16-2024 take 1 tablet by mouth once daily at bedtime for hyperlipidemia atorvastatin (LIPITOR) 10 mg tablet Take 1 tablet by mouth daily at bedtime. For cholesterol. 90 tablet 3 03/17/2023 03/16/2024 Discontinued Start: 01-25-2021 End: 01-24-2022 take 1 tablet by mouth once daily at bedtime for hyperlipidemia atorvastatin (LIPITOR) 10 mg tablet Indications: Hyperlipidemia LDL goal Take 1 tablet by mouth daily at bedtime. For cholesterol. 90 tablet 3 01/25/2021 01/24/2022 Discontinued Comment on above: Take 1 tablet by ariel th daily at bedtime. For cholesterol. cholecalciferol 0.05 mg oral capsule (20 sources) Vitamin D Start: take 1 capsule by mouth once daily Cholecalciferol (Vitamin D3) (Vitamin D3) 50 mcg (2,000 unit) Capsule Active 2000 U PO DAILY September 24, 2020 12:00am Start: 08-04-2012 take 1 tablet by ariel th once daily cholecalciferol (VITAMIN D3) 50 mcg (2,000 unit) tablet Take 2,000 Units by mouth once daily. 08/04/2012 Active Cholecalciferol, Vitamin D3, (VITAMIN D-3) 2,000 unit Tab Take by mouth. 0 Active Comment on above: Take by mouth. CPAP (20 sources) Start: 09-02-2023 CPAP Indicatio ns: SIOBHAN (obstructive sleep apnea) CPAP Supplies, All Necessary equipment including tubing and full mask ICD G47.33 1 Each 09/02/2023 Active Start: 01-25-2021 End: 09-02-2023 CPAP Indications: SIOBHAN (obstr uctive sleep apnea) CPAP Supplies, All Necessary equipment including tubing and full mask ICD G47.33 1 Each 01/25/2021 09/02/2023 Discontinued Start: 01-25-2021 CPAP Indicatio ns: SIOBHAN (obstructive sleep apnea) CPAP Supplies, All Necessary equipment including tubing and full mask ICD G47.33 1 Each 01/25/2021 Active Start: 06-20-2020 CPAP Indicatio ns: SIOBHAN (obstructive sleep apnea) 30 day download for And please send chin strap Auto PAP @ 5-20 cm of water with humidification. Mask (per patient preference) optional chin strap (if indicated) , filters, tubing, humidifier and lifetime supplies. 1 Device 06/20/2020 Active Start: 06-20-2020 CPAP Indicatio ns: SIOBHAN (obstructive sleep apnea) 30 day download for And please send chin strap Auto PAP @ 5-20 cm of water with humidification. Mask (per patient preference) optional chin strap (if indicated) , filters, tubing, humidifier and lifetime supplies. 1 Device 0 06/20/2020 Active Comment on above: 30 day download for And please send chin strap Auto PAP @ 5-20 cm of water with humidification. Mask (per patient preference) optional chin strap (if indicated) , filters, tubing, humidifier and lifetime supplies. CPAP Supplies, All N ecessary equipment including tubing and full mask ICD G47.33 24 hr dilTIAZem hydrochloride 300 mg extended release oral capsule (20 sources) Calcium Channel Jason Start: 07-07-19 End: 08-13-19 take 1 capsule by mouth once daily, then take 1 capsule by mouth every twenty-four hours Diltiazem Hcl (Tiadylt Er) 300 mg capsule,extended release 24 hr Active 300 mg PO DAILY August 12, 2024 9:55am docusate sodium 100 mg oral capsule (20 sources) Start: 08-11-19 take 1 capsule by mouth twice daily as needed Docusate Sodium 100 mg capsule Active 100 mg PO TWICE A DAY as needed August 10, 2024 12:00am Start: 07-05-2024 End: 08-04-2024 take 1 capsule by mouth twice daily as needed for constipation Docusate Sodium 100 mg capsule Discontinued 100 mg PO TWICE A DAY as needed for Constipation July 06, 2024 12:00am July 21, 2024 8:33pm doxycycline monohydrate 100 mg oral tablet (2 sources) Tetracycline-class Drug Start: 08-14-2021 End: 08-21-2021 take 1 tablet by mouth twice daily doxycycline monohydrate 100 mg tablet Indications: Sinobronchitis Take 1 tablet by mouth twice daily for 7 days. 14 tablet 0 08/14/2021 08/21/2021 Active Comment on above: Take 1 tablet by [facility] twice daily for 7 days. ELDERBERRY FRUIT (20 sources) elderberry fruit (ELDERBERRY ORAL) Take 2 Doses by mouth once daily. Active elderberry fruit (ELDERBERRY ORAL) Take 2 Doses by mouth once daily. 0 Active Comment on above: Take 2 Doses by mout h once daily. ferrous sulfate (20 sources) Start: 08-10-2024 take 1 tablet by mouth once daily Ferrous Sulfate 325 mg (65 mg iron) tablet Active 650 mg PO daily August 10, 2024 12:00am Start: 09-23-2020 End: 07-21-2024 take 1 tablet by mouth once daily Ferrous Sulfate (Iron (Ferrous Sulfate)) 325 mg (65 mg iron) Tablet Discontinued 650 mg PO DAILY September 23, 2020 12:00am July 21, 2024 8:34pm take 1 tablet by ariel once daily at breakfast ferrous sulfate 325 mg (65 mg iron) tablet Take 650 mg by mouth daily with breakfast. Active Comment on above: Take 650 mg by mouth daily with breakfast. furosemide 40 mg oral tablet (11 sources) Loop Diuretic Start: 08-12-2024 take 1 tablet by mouth twice daily Furosemide (Lasix) 40 mg tablet Active 40 mg PO TWICE A DAY 180 August 12, 2024 9:49am Start: 07-27-2024 End: 08-17-2024 take 1 tablet by mouth once daily Furosemide (Lasix) 40 mg tablet Discontinued 40 mg PO daily August 10, 2024 12:00am August 12, 2024 9:54am X 14 days HAIR, SKIN AND NAILS, BIOTIN, ORAL (20 sources) take 2 tablets by mo [facility] once daily HAIR, SKIN AND NAILS, BIOTIN, ORAL Take 2 tablets by mouth once daily. Active take 2 tablets by mouth once christa ly HAIR, SKIN AND NAILS, BIOTIN, ORAL Take 2 tablets by mouth once daily. 0 Active lisinopril 10 mg oral tablet (20 sources) Angiotensin Converting Enzyme Inhibitor Start: 09-02-2023 End: 05-13-2024 take 1 tablet by mouth once daily lisinopril (ZESTRIL) 10 mg tablet Indications: Hypertension, essential Take 1 tablet by mouth once daily. 90 tablet 3 05/13/2024 Active Start: 08-25-2023 End: 09-02-2023 take 0.5 tablet by mouth once daily lisinopril (ZESTRIL) 20 mg tablet Indications: Hypertension, essential Take 0.5 tablets by mouth once daily. 0 08/25/2023 09/02/2023 Discontinued (Dosage adjustment) Start: 04-06-2023 End: 08-25-2023 take 1 tablet by mouth once daily lisinopril (ZESTRIL) 20 mg tablet Indications: Hypertension, essential Take 1 tablet by mouth once daily. 90 tablet 3 04/06/2023 08/25/2023 Discontinued Start: 08-14-2022 End: 10-02-2022 take 1 tablet by mouth once daily lisinopril (ZESTRIL) 20 mg tablet Indications: Hypertension, essential Take 1 tablet by mouth once daily. 90 tablet 1 10/02/2022 Active Start: 10-31-2020 End: 07-24-2022 take 1 tablet by mouth once daily lisinopril (ZESTRIL, PRINIVIL) 20 mg tablet Indications: Hypertension, essential Take 1 tablet by mouth once daily. 90 tablet 3 10/31/2020 10/25/2021 Discontinued Start: 09-17-2020 End: 07-06-2024 take 5 mg by mouth once daily Lisinopril 10 mg Tablet Discontinued 5 mg PO DAILY September 17, 2020 12:00am July 06, 2024 2:07pm Comment on above: Take 1 tablet by ariel th once daily. metoprolol tartrate 100 mg oral tablet (20 sources) beta-Adrenergic Jason Start: 08-12-2024 take 1 tablet by mouth every twelve hours metoprolol tartrate, short acting, (LOPRESSOR) 100 mg tablet Take 1 tablet by mouth every 12 hours. 08/12/2024 Active Start: 07-21-2024 End: 08-12-2024 take 1 tablet by mouth twice daily Metoprolol Succinate 100 mg tablet extended release 24 hr Active 100 mg PO TWICE A DAY 60 August 12, 2024 9:55am Start: 07-06-2024 take 1 tablet by ariel th once daily metoprolol succinate ER (TOPROL XL) 100 mg Take 1 tablet by mouth once daily. 90 tablet 07/06/2024 Active Start: 06-14-2024 End: 06-14-2025 take 1 tablet by mouth once daily metoprolol succinate ER (TOPROL XL) 50 mg 24 hr tablet Take 1 tablet by mouth once daily. 30 tablet 11 06/14/2024 06/14/2025 Active Start: 06-09-2024 End: 06-09-2025 Metoprolol Succinate 25 mg t ablet extended release 24 hr Discontinued 100 mg PO DAILY July 06, 2024 12:00am July 21, 2024 8:34pm Multivitamin (Daily Multi-Vitamin) tablet (3 sources) Start: 07-06-2024 Multivitamin (Daily Multi-Vitamin) tablet Active 1 {tbl} PO DAILY July 06, 2024 12:00am MULTIVITAMIN ORAL (9 sources) Start: 07-23-2024 take 1 tablet by mouth once daily MULTIVITAMIN ORAL Take 1 tablet by mouth once daily. 07/23/2024 Active Multivitamin With Minerals (Hair,Skin And Nails) tablet (2 sources) Start: 08-10-2024 Multivitamin With Minerals (Hair,Skin And Nails) tablet Active 1 {tbl} PO daily August 10, 2024 12:00am mupirocin 0.02 mg/mg topical ointment (5 sources) RNA Synthetase Inhibitor Antibacterial Start: 06-07-2024 End: 06-12-2024 mupirocin (BACTROBAN) 2 % ointment Indications: Pre-op evaluation two times a day for 5 days. Apply 0.5 inch with cotton swab (Q-tip) to each nostril in the morning and evening for 5 days prior to and including day of surgery. 22 g 06/07/2024 06/12/2024 Active nitrofurantoin, macrocrystals 25 mg / nitrofurantoin, monohydrate 75 mg oral capsule (3 sources) Nitrofuran Antibacterial Start: 04-04-2024 End: 04-11-2024 take 1 capsule by mouth twice daily nitrofurantoin monohydrate and macrocrystal (MACROBID) 100 mg capsule Indications: Dysuria Take 1 capsule by mouth two times a day for 7 days. 14 capsule 04/04/2024 04/11/2024 Active potassium chloride 20 meq extended release oral tablet (2 sources) Start: 08-12-2024 take 1 tablet by mouth once daily potassium chloride 20 mEq TbER Take 1 tablet by mouth once daily. 08/12/2024 Active predniSONE 20 mg oral tablet (3 sources) Start: 08-12-2023 End: 08-17-2023 take 1 tablet by mouth once daily predniSONE (DELTASONE) 20 mg tablet Indications: Bronchitis with bronchospasm Take 1 tablet by mouth once daily for 5 days. 5 tablet 0 08/12/2023 08/17/2023 Active Turmeric extract (20 sources) TURMERIC ORAL Ta ke by mouth once daily. With curcumin Active TURMERIC ORAL Ta ke by mouth once daily. With curcumin 0 Active Comment on above: Take by mouth once d aily. With curcumin Completed/Discontinued Medications Medication Drug Class(es) Dates Sig (Normalized) Sig (Original) acetaminophen 500 mg oral tablet (20 sources) Start: 07-05-2024 End: 08-10-2024 take 2 tablets by mouth every eight hours Acetaminophen 500 mg Tablet Discontinued 1000 mg PO EVERY 8 HOURS 0 July 21, 2024 12:00am August 10, 2024 3:29pm acetaminophen 325 mg / HYDROcodone bitartrate 5 mg oral tablet (3 sources) Opioid Agonist Start: 09-26-2020 End: 07-06-2024 Hydrocodone-Acetami nophen 5-325 mg tablet Discontinued 1 {tbl} PO Q8H 15 5 September 26, 2020 July 06, 2024 2:07pm [id number] 200 actuat albuterol 0.09 mg/actuat metered dose inhaler (9 sources) beta2-Adrenergic Agonist Start: 08-12-2023 End: 01-27-2024 take 2 puff(s) by inhalation every six hours as needed for wheezing albuterol HFA (PROVENTIL HFA, VENTOLIN HFA) 90 mcg/actuation inhaler Indications: Bronchitis with bronchospasm Inhale 2 Puffs as instructed every 6 hours as needed for wheezing/shortness of breath. 1 Each 08/12/2023 01/27/2024 Discontinued (Course of therapy completed) benzonatate 100 mg oral capsule (7 sources) Non-narcotic Antitussive Start: 08-03-2023 End: 08-25-2023 take 1 capsule by mouth every eight hours as needed benzonatate (TESSALON PERLES) 100 mg capsule Take 1 capsule by mouth three times a day as needed for cough. 21 capsule 0 08/03/2023 08/25/2023 Discontinued black cohosh extract 40 mg oral capsule (20 sources) End: 07-25-2024 Black Cohosh 40 mg tab Take 1 tablet by mouth. Take 1 tablet every other day 07/25/2024 Discontinued (Other) Black Cohosh 40 mg tab Take 1 tablet by mouth. Take 1 tablet every other day Active Black Cohosh 40 mg tab Take 1 tablet by mouth. Take 1 tablet every other day 0 Active take 2 tablets by mouth once christa ly Black Cohosh 40 mg tab Take 2 tablets by mouth once daily. 0 Active Comment on above: Take 2 tablets by mo uth once daily. Take 1 tablet by ariel th. Take 1 tablet every other day calcium carbonate 1500 mg / cholecalciferol 200 unt oral tablet (3 sources) Vitamin D Start: 09-24-2020 End: 08-10-2024 Calcium Carbonate-Vitamin D3 600 mg(1,500mg) -200 unit Tablet Discontinued 1 {tbl} PO TWICE A DAY September 24, 2020 12:00am August 10, 2024 3:28pm CALCIUM CARBONATE/VITAMIN D2 (CALCIUM + VITAMIN D ORAL) (10 sources) End: 01-26-2023 CALCIUM CARBONATE/VITAMIN D2 (CALCIUM + VITAMIN D ORAL) Take by mouth twice daily. 01/26/2023 Discontinued (Clinical Decision) End: 01-26-2023 CALCIUM CARBONATE/VITAMIN D2 (CALCIUM + VITAMIN D ORAL) Take by mouth twice daily. 0 01/26/2023 Discontinued (Clinical Decision) CALCIUM CARBONAT E/VITAMIN D2 (CALCIUM + VITAMIN D ORAL) Take by mouth twice daily. 0 Active Comment on above: Take by mouth twice daily. cefadroxil 500 mg oral capsule (7 sources) Cephalosporin Antibacterial Start: 5 End: 5 take 1 capsule by mouth every twelve hours Cefadroxil 500 mg capsule Discontinued 500 mg PO Q12H July 06, 2024 12:00am July 21, 2024 8:33pm docusate sodium 50 mg / sennosides, mcfp 8.6 mg oral tablet (3 sources) Start: 5 End: 5 Sennosides-Docusate Sodium (Stimulant Laxative Plus) 8.6-50 mg Tablet Discontinued 2 {tbl} PO TWICE A DAY July 21, 2024 12:00am August 10, 2024 3:29pm Fiber (20 sources) Start: End: take 1 capsule by mouth once daily Fiber Capsule Discontinued 3 NMA PO DAILY September 24, 2020 12:00am August 10, 2024 3:28pm Start: 09-24-2020 take 1 capsule by mo uth once daily Fiber Capsule Active 3 NMA PO DAILY September 24, 2020 12:00am End: 07-25-2024 take 3 capsules by mouth once daily Fiber Cap Take 3 capsules by mouth once daily. 07/25/2024 Discontinued (Other) take 3 capsules by m outh once daily Fiber Cap Take 3 capsules by mouth once daily. Active take 3 capsules by m outh once daily Fiber Cap Take 3 capsules by mouth once daily. 0 Active Comment on above: Take 3 capsules by m outh once daily. hydroCHLOROthiazide 25 mg oral tablet (20 sources) Thiazide Diuretic Start: End: take 1 tablet by mouth once daily Hydrochlorothiazide 25 mg tablet Discontinued 25 mg PO DAILY July 22, 2024 12:00am August 10, 2024 3:29pm Start: 09-02-2023 End: 05-13-2024 take 1 tablet by mouth once daily hydroCHLOROthiazide 25 mg tablet Indications: Hypertension, essential , Venous insufficiency Take 1 tablet by mouth once daily. 90 tablet 3 05/13/2024 Active Start: 08-25-2023 End: 09-02-2023 take 2 capsules by mouth once daily hydroCHLOROthiazide 12.5 mg capsule Indications: Hypertension, essential Take 2 capsules by mouth once daily. 0 08/25/2023 09/02/2023 Discontinued (Dosage adjustment) Start: 03-19-2023 End: 08-25-2023 take 1 capsule by mouth once daily hydroCHLOROthiazide 12.5 mg capsule Indications: Hypertension, essential Take 1 capsule by mouth once daily. 90 capsule 3 03/19/2023 08/25/2023 Discontinued Start: 10-02-2022 take 1 capsule by mo uth once daily hydroCHLOROthiazide 12.5 mg capsule Indications: Hypertension, essential Take 1 capsule by mouth once daily. 90 capsule 1 10/02/2022 Active Comment on above: Take 1 capsule by mo uth once daily. hydrocortisone 25 mg/ml topical cream (3 sources) Corticosteroid Start: 2024 End: 2024 Hydrocortisone 2.5 % cream Discontinued 1 NMA TOPICAL TWICE A DAY July 06, 2024 12:00am July 21, 2024 8:34pm Magnesium Hydroxide (16 sources) Start: 2024 End: 2024 take 1 mL by mouth once daily as needed for constipation Magnesium Hydroxide 400 mg/5 mL suspension Discontinued 30 mL PO DAILY as needed for constipation July 06, 2024 12:00am July 21, 2024 8:34pm Start: 07-05-2024 take 30 mL by mouth once daily as needed for constipation magnesium hydroxide (MOM) 400 mg/5 mL suspension Take 30 mL by mouth once daily as needed for constipation. 07/05/2024 Active meloxicam 15 mg oral tablet (20 sources) Nonsteroidal Anti-inflammatory Drug Start: 02-17-2024 End: 06-08-2024 take 1 tablet by mouth once daily meloxicam (MOBIC) 15 mg tablet Take 1 tablet by mouth once daily. 30 tablet 1 03/15/2024 06/08/2024 Discontinued Multivit W/Fluoride (3 sources) Start: 09-23-2020 End: 07-21-2024 Multivit W/Fluoride Discontinued 1 {tbl} SL/PO DAILY September 23, 2020 12:00am July 21, 2024 8:34pm multivitamins(WESTON Y MULTIVITAMIN TAB) (20 sources) Start: 03-27-2009 End: 07-25-2024 multivitamins(CHRISTA LY MULTIVITAMIN TAB) Take one(1) tablet daily. 0 03/27/2009 07/25/2024 Discontinued (Other) Start: 03-27-2009 multivitamins( DAILY MULTIVITAMIN TAB) Take one(1) tablet daily. 0 03/27/2009 Active Comment on above: Take one(1) tablet d aily. Drug Treatment Unknown - unknown (2 sources) No information available. oxyCODONE hydrochloride 5 mg oral tablet (15 sources) Opioid Agonist Start: End: take 1 tablet by mouth every four hours as needed for pain Oxycodone 5 mg tablet Discontinued 5 mg PO Q4H as needed for pain 42 7 July 22, 2024 August 10, 2024 3:29pm Start: 07-05-2024 End: 07-21-2024 take 5-10 mg by mouth every six hours as needed for pain Oxycodone 5 mg tablet Discontinued 5 - 10 mg PO EVERY 6 HOURS as needed for pain (scale score 7-10) July 06, 2024 12:00am July 21, 2024 8:35pm pantoprazole 40 mg delayed release oral tablet (16 sources) Proton Pump Inhibitor Start: 07-06-2024 End: 07-21-2024 take 1 tablet by mouth once daily Pantoprazole 40 mg tablet,delayed release (DR/EC) Discontinued 40 mg PO DAILY July 06, 2024 12:00am July 21, 2024 8:34pm polyethylene glycol [id number] mg powder for oral solution (16 sources) Osmotic Laxative Start: 08-10-2024 End: 08-11-2024 take 17 g by mouth once as needed Polyethylene Glycol 3350 17 gram/dose powder Discontinued 17 g PO ONCE as needed August 10, 2024 12:00am August 11, 2024 11:09am Start: 07-06-2024 End: 07-21-2024 take 17 g by mouth once daily as needed for constipation Polyethylene Glycol 3350 17 gram/dose powder Discontinued 17 g PO DAILY as needed for constipation July 06, 2024 12:00am July 21, 2024 8:34pm Start: 07-05-2024 End: 07-15-2024 polyethylene glycol 3350 (MIRALAX) 17 gram/dose powder Take 17 g by mouth once daily as needed for constipation for up to 10 days. Dissolve dose in 4 - 8 ounces of liquid and take as directed. 170 g 07/05/2024 07/15/2024 Active regadenoson 0.4 mg injection (LEXISCAN) (2 sources) Start: 06-23-2024 End: 06-23-2024 regadenoson 0.4 mg injection (LEXISCAN) Start: 06-23-2024 End: 06-23-2024 0.4 mg, INTRAVENOUS, ONCE, 1 dose, On Lupe 06/23/24 at 1000, Give 0.4 mg (5 mL) over ~10 seconds, followed immediately by a 5 mL saline flush. Wait 10-20 seconds, then administer the radionuclide myocardial perfusion imaging agent. Problems Active Problems Problem Classification Problem Date Documented Date Episodic/Chronic Abdominal pain (3 sources) Abdominal pain; Translations: [Unspecified abdominal pain] 09-17-2020 Episodic Acute bronchitis (2 sources) Bronchitis; Translations: [Acute bronchitis, unspecified] 08-12-2023 Episodic Biliary tract disease (3 sources) Acute cholecystitis due to biliary calculus; Translations: [Calculus of gallbladder with acute cholecystitis without obstruction] 09-24-2020 Episodic Cardiac dysrhythmias (20 sources) Premature beats; Translations: [Other premature depolarization] Onset: 06-09-2024 Resolved: 07-27-2024 Chronic Cardiac dysrhythmias (3 sources) Cardiac dysrhythmias Chronic kidney disease (20 sources) Chronic kidney disease stage 3; Translations: [Chronic kidney insufficiency, stage 3 (moderate) (HCC)] Onset: 08-25-2023 08-25-2023 Chronic Conduction disorders (2 sources) Right bundle branch block; Translations: [Unspecified right bundle-branch block] 08-10-2024 Chronic Deficiency and other anemia (6 sources) Iron deficiency anemia; Translations: [Iron deficiency anemia, unspecified] 07-06-2024 Episodic Diseases of white blood cells (3 sources) Leukocytosis; Translations: [Elevated white blood cell count, unspecified] 09-24-2020 Chronic Disorders of lipid metabolism (20 sources) Hyperlipidemia; Translations: [Hyperlipidemia, unspecified] Onset: 01-18-2016 Chronic Essential hypertension (20 sources) Essential hypertension; Translations: [Essential (primary) hypertension] Onset: 01-02-2020 Chronic Genitourinary symptoms and ill-defined conditions (2 sources) Dysuria; Translations: [Dysuria] 03-31-2024 Episodic Hypertension with complications and secondary hypertension (3 sources) Hypertensive urgency ; Translations: [Hypertensive urgency] 09-17-2020 Chronic Malaise and fatigue (8 sources) Fatigue; Translations: [Other fatigue] Onset: 08-25-2023 08-25-2023 Episodic Neoplasms of unspecified nature or uncertain behavior (1 source) Neoplasm of uncertain behavior of skin of back; Translations: [Neoplasm of uncertain behavior of skin] 01-12-2024 Episodic Osteoarthritis (20 sources) Osteoarthritis of right hip joint; Translations: [Unilateral primary osteoarthritis, right hip] Onset: 08-09-2015 Resolved: 10-24-2020 08-09-2015 Chronic Other aftercare (1 source) Aftercare following joint replacement surgery; Translations: [Aftercare following joint replacement surgery] Onset: 07-26-2024 Chronic Other circulatory disease (1 source) Wheeze - rhonchi; Translations: [Other specified symptoms and signs involving the circulatory and respiratory systems] Episodic Other connective tissue disease (8 sources) History of repair of hip joint; Translations: [Presence of right artificial hip joint] 07-11-2024 Chronic Other connective tissue disease (20 sources) History of total hip arthroplasty; Translations: [Presence of right artificial hip joint] Onset: 07-01-2024 07-02-2024 Chronic Other connective tissue disease (4 sources) Presence of right artificial hip joint; Translations: [Status post right hip replacement] Onset: 07-02-2024 Chronic Other connective tissue disease (1 source) Swelling of lower limb; Translations: [Other specified soft tissue disorders] 08-17-2024 Episodic Other ear and sense organ disorders (20 sources) Hearing loss in left ear; Translations: [Unspecified hearing loss, left ear] Onset: 03-27-2009 03-27-2009 Chronic Other ear and sense organ disorders (1 source) Impacted cerumen in right ear; Translations: [Impacted cerumen, right ear] 04-23-2023 Episodic Other lower respiratory disease (1 source) Cough; Translations: [Acute cough] 08-03-2023 Episodic Other non-traumatic joint disorders (1 source) Arthritis of right hip 04-22-2024 Chronic Other non-traumatic joint disorders (1 source) Multiple joint pain; Translations: [Pain in unspecified joint] Episodic Other non-traumatic joint disorders (2 sources) Hip pain; Translations: [Pain in right hip] 01-27-2024 Episodic Other nutritional; endocrine; and metabolic disorders (20 sources) Obese class I; Translations: [Obesity, unspecified] Onset: 10-25-2020 10-25-2020 Chronic Other nutritional; endocrine; and metabolic disorders (1 source) Hypercalcemia; Translations: [Hypercalcemia] 01-26-2023 Chronic Other nutritional; endocrine; and metabolic disorders (6 sources) Obesity; Translations: [Obesity, unspecified] 07-06-2024 Chronic Other screening for suspected conditions (not mental disorders or infectious disease) (17 sources) Patient encounter status; Translations: [Encounter for screening mammogram for malignant neoplasm of breast] Onset: 02-22-2024 Episodic Other skin disorders (1 source) Xeroderma; Translations: [Xerosis cutis] 10-02-2022 Episodic Other skin disorders (1 source) Seborrheic keratosis; Translations: [Other seborrheic keratosis] 01-12-2024 Episodic Other upper respiratory infections (1 source) Chronic sinusitis; Translations: [Chronic sinusitis, unspecified] Chronic Other upper respiratory infections (2 sources) Acute upper respiratory infection; Translations: [Acute upper respiratory infection, unspecified] Episodic Ylndsey-; endo-; and myocarditis; cardiomyopathy (except that caused by tuberculosis or sexually transmitted disease) (20 sources) Heart valve disorder; Translations: [Endocarditis, valve unspecified] Onset: 06-27-2024 06-27-2024 Chronic Pulmonary heart disease (20 sources) Pulmonary hypertension, unspecified; Translations: [Other chronic pulmonary heart diseases] Onset: 06-27-2024 06-27-2024 Chronic Residual codes; unclassified (20 sources) Obstructive sleep apnea syndrome; Translations: [Obstructive sleep apnea (adult) (pediatric)] Onset: 01-27-2020 Chronic Residual codes; unclassified (2 sources) Obstructive sleep apnea (adult) (pediatric); Translations: [SIOBHAN on CPAP] Onset: 10-24-2020 Chronic Residual codes; unclassified (20 sources) Postprocedural state finding; Translations: [Other specified postprocedural states] Onset: 07-12-2024 07-12-2024 Episodic Residual codes; unclassified (4 sources) Bilateral lower limb edema; Translations: [Localized edema] 08-11-2024 Episodic Residual codes; unclassified (2 sources) Localized edema; Translations: [Localized edema] Onset: 08-11-2024 Episodic Respiratory failure; insufficiency; arrest (adult) (1 source) Respiratory failure; insufficiency; arrest (adult); Translations: [Chronic kidney insufficiency, stage 3 (moderate) (HCC)] Onset: 08-25-2023 Unclassified (2 sources) Screening for malignant neoplasm of colon ; Translations: [Encounter for screening for malignant neoplasm of colon] Onset: 01-07-2017 01-07-2017 Unclassified (1 source) Obesity, Class I, BMI 30-34.9; Translations: [Obesity, Class I, BMI 30-34.9] Onset: 10-25-2020 Unclassified (1 source) I48.0 - Paroxysmal atrial fibrillation,I48.91 - Unspecified atrial fibrillation,I45.10 - Unspecified right bundle-branch block Past or Other Problems Problem Classification Problem Date Documented Date Episodic/Chronic Diabetes mellitus without complication (20 sources) Impaired fasting glycemia; Translations: [Impaired fasting glucose] Onset: 04-06-2023 04-06-2023 Episodic Menopausal disorders (20 sources) Postmenopausal bleeding; Translations: [Postmenopausal bleeding] Onset: 11-21-2011 Resolved: 03-28-2016 03-28-2016 Chronic Mycoses (20 sources) Tinea pedis; Translations: [Tinea pedis] Onset: 02-05-2006 Resolved: 03-07-2015 03-07-2015 Episodic Other diseases of kidney and ureters (17 sources) Renal impairment; Translations: [Disorder of kidney and ureter, unspecified] Onset: 10-25-2020 10-25-2020 Episodic Other diseases of veins and lymphatics (20 sources) Vascular insufficiency; Translations: [Venous insufficiency (chronic) (peripheral)] Onset: 09-02-2023 08-25-2023 Episodic Other diseases of veins and lymphatics (2 sources) Venous insufficiency (chronic) (peripheral); Translations: [Venous insufficiency] Onset: 09-02-2023 Episodic Other nervous system disorders (20 sources) Disorder of the peripheral nervous system; Translations: [Hereditary and idiopathic neuropathy, unspecified] Resolved: 10-24-2020 10-24-2020 Chronic Other non-traumatic joint disorders (1 source) Pain in right hip; Translations: [Right hip pain] Onset: 01-27-2024 Episodic Other screening for suspected conditions (not mental disorders or infectious disease) (20 sources) Endometrium thickened; Translations: [Abnormal findings on diagnostic imaging of other specified body structures] Onset: 12-05-2011 Resolved: 03-28-2016 03-04-2021 Chronic Other skin disorders (20 sources) Chester - lesion ; Translations: [Corns and callosities] Onset: 08-17-2013 Resolved: 03-28-2016 03-28-2016 Episodic Unclassified (2 sources) Preprocedural examination done 05-11-2024 Unclassified (6 sources) History of repair of hip joint 07-11-2024 Results Test Name Value Interpretation Reference Range Facility Anion gap in Serum or Plasma Ordered By: Rosalio Mena on 08-17-2024 Anion gap [Moles/Vol] 11 mmol/L 07-21 [facility] BUN/creatinine ratioOrdered By: Rosalio Mena on 08-17-2024 Urea nitrogen/Creatinine [Mass ratio] 13.1 mg/mg 12-26 [facility] Basic Metabolic Profile (BMP )on 08-17-2024 BUN/CRE 13.1 RATIO Normal 12-26 [facility] Comment on above: Performed By: #### L 500.2500, L501.9520 ####[facility] [address] [place], [address] Calcium [Mass/Vol] 9.7 mg/dL Normal 7.6-11.0 [facility] Comment on above: Performed By: #### L 500.2500, L501.9520 ####[facility] [address] [place], [address] Chloride [Moles/Vol] 102 mmol/L Normal 98-108 [facility] Comment on above: Performed By: #### L 500.2500, L501.9520 ####[facility] [address] [place], [address] CO2 [Moles/Vol] 27.3 mmol/L Normal 21.0-32.0 [facility] Comment on above: Performed By: #### L 500.2500, L501.9520 ####[facility] [address] [place], [address] Creatinine [Mass/Vol] 0.96 mg/dL Normal 0.70-1.20 [facility] Comment on above: Performed By: #### L 500.2500, L501.9520 ####[facility] [address] [place], [address] GAP 11 Normal 07-21 [facility] Comment on above: Performed By: #### L 500.2500, L501.9520 ####[facility] [address] [place], [address] GFR/1.73 sq M.predicted among non-blacks MDRD (S/P/Bld) [Vol rate/Area] 62 mL/min/{1.73_m2} Normal >60 [facility] Comment on above: Result Comment: mL/m in/1.73m2 CKD-EPI Creatinine Equation (2020) Performed By: #### L 500.2500, L501.9520 ####[facility] [address] [place], [address] Glucose [Mass/Vol] 152 mg/dL High 70-99 [facility] Comment on above: Performed By: #### L 500.2500, L501.9520 ####[facility] [address] [place], [address] Potassium [Moles/Vol] 3.6 mmol/L Normal 3.3-5.1 [facility] Comment on above: Performed By: #### L 500.2500, L501.9520 ####[facility] [address] [place], [address] Sodium [Moles/Vol] 141 mmol/L Normal 133-145 [facility] Comment on above: Performed By: #### L 500.2500, L501.9520 ####[facility] [address] [place], [address] Urea nitrogen [Mass/Vol] 13 mg/dL Normal 4-19 [facility] Comment on above: Performed By: #### L 500.2500, L501.9520 ####[facility] [address] 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 Post-operative course has been without complication. Patient was admitted to TCU for aftercare. Patient had subsequent A-fib with RVR with heart rate in the 160-170 range on July 02. Currenlty on metoprolol and new Eliquis due to afib. Has cardiac follow up set up. Subjective: Patient reports no pain. Overall is doing well. no ambulatory aid no opioid pain medication Patient has significant LE edema worst on the operative side. Reports increasing Lasix to 40mg BID. Has not been elevating very well with only elevation in a recliner. Objective: Ambulates without assistance Incision well-approximated, no drainage, normal lyndsey-incisional erythema Arcs of motion at hip are comfortable and fluid Distally DP/PT palpable Distally S/S/SP/DP/T intact at baseline Distally DF/EHL/PF intact at baseline Negative lillie/calf tenderness 3+ pitting edema to RLE 1+ pitting edema to LLE Xrays: No new today Assessment and Plan: Azalea Mott Is here for a second post-op appointment, overall doing well -continued ice, rest, and use of non-narcotic analgesia as needed -wean off ambulatory aids -discussed home exercises and therapy -WBAT on operative extremity -reinforced posterior precautions through 8 weeks: avoid extremes of flexion, internal rotation, and adduction -will see back in 2 weeks for improvement on swelling. -discussed red flag symptoms of acutely increasing pain, new erythema, new swelling, drainage, shortness of breath -has US set up to rule out DVT -educated on proper elevation, ice, and SHALONDA wrapping for assistance in swelling Jamal Gr PA-C Orthopaedic Surgery Allergies As of Date: 08/17/2024 Noted Allergy Reaction NORCO (HYDROCODONE-ACETAMINO PHEN) 10/24/2020 14 - Other: See Comments Comments: Weird dreams. Date Reviewed: 08/17/2024 Reviewed by: Jamal Gr PA-C - Fully Assessed Reason for Visit: Established Patient [175] Follow Up [171] Hip Replacement [324] Primary Visit Diagnosis:Status post right hip replacement [Z96.641] Other Visit Diagnosis:Leg swelling [M79.89] Order(s):XR HIP GENERAL 3V PELV/AP/LAT RIGHT [[id number]] Order #: [id number] FUTURE Prescriptions as of 08/17/2024 - potassium chloride 20 mEq TbER Take 1 tablet by mouth once daily. - metoprolol tartrate, short acting, (LOPRESSOR) 100 mg tablet Take 1 tablet by mouth every 12 hours. - furosemide (LASIX) 40 mg tablet Take 1 tablet by mouth once daily for 14 days. - polyethylene glycol 3350 17 gram/dose powder Take 17 g by mouth as needed for constipation. Dissolve dose in 4 - 8 ounces of liquid and take as directed. - metoprolol succinate ER (TOPROL XL) 100 mg Take 1 tablet by mouth two times a day. - MULTIVITAMIN ORAL Take 1 tablet by mouth once daily. - ascorbic acid, vitamin C, (VITAMIN C) 500 mg tablet Take 1 tablet by mouth two times a day with meals for 19 doses. - acetaminophen (TYLENOL) 500 mg tablet Take 2 tablets by mouth every 8 hours as needed for pain. - dilTIAZem CD (CARDIZEM CD, CARTIA XT) 300 mg 24 hr capsule Take 1 capsule by mouth once daily. Patient should start on July 06, 2024. - apixaban (ELIQUIS) 5 mg tab(s) Take 1 tablet by mouth two times a day. - atorvastatin (LIPITOR) 10 mg tablet Take 1 tablet by mouth daily at bedtime. For cholesterol. - CPAP CPAP Supplies, All Necessary equipment including tubing and full mask ICD G47.33 - HAIR, SKIN AND NAILS, BIOTIN, ORAL Take 2 tablets by mouth once daily. - CPAP 30 day download for And please send chin strap Auto PAP @ 5-20 cm of water with humidification. Mask (per patient preference) optional chin strap (if indicated) , filters, tubing, humidifier and lifetime supplies. - ferrous sulfate 325 mg (65 mg iron) tablet Take 650 mg by mouth daily with breakfast. - cholecalciferol (VITAMIN D3) 50 mcg (2,000 unit) tablet Take 2,000 Units by mouth once daily. Problem List As Of Date 08/17/2024 Noted Resolved Dermatophytosis of foot [B35.3] 02/05/2006 03/07/2015 Hereditary and idiopathic peripheral neuropathy* 10/24/2020 Hearing Loss in Left Ear [H91.92] 03/27/2009 Post-menopausal bleeding [N95.0] 11/21/2011 03/28/2016 Thickened endometrium [R93.89] 12/05/2011 03/28/2016 Chester of foot [L84] 08/17/2013 03/28/2016 Primary osteoarthritis of right hip [M16.11] 08/09/2015 Arthritis of right hip [M16.11] 08/09/2015 10/24/2020 Hyperlipidemia LDL goal <100 [E78.5] (more content not included)... Normal [facility] Carbon dioxide, total [Moles /volume] in Central venous bloodOrdered By: Rosalio Mena on 08-17-2024 CO2 [Moles/Vol] 27.3 mmol/L 21.0-32.0 [facility] Chloride assayOrdered By: Dar Mena on 08-17-2024 Chloride [Moles/Vol] 102 mmol/L 98-108 [facility] Glomerular filtration rate ( GFR) estimation/1.73 sq m using serum, plasma, or whole bOrdered By: Rosalio Mena on 08-17-2024 GFR/1.73 sq M.predicted among non-blacks MDRD (S/P/Bld) [Vol rate/Area] 62 mL/min/{1.73_m2} >60 [facility] Comment on above: mL/min/1.73m2 CKD-EP I Creatinine Equation (2020) Potassium measurement (mass/ volume)Ordered By: Rosalio Mena on 06-11-2025 Potassium (Unsp spec) [Mass/Vol] 3.6 mmol/L 3.3-5.1 [facility] Serum creatinine measurement (mass/volume)Ordered By: Rosalio Mena on 08-17-2024 Creatinine [Mass/Vol] 0.96 mg/dL 0.70-1.20 [facility] Serum glucose measurement (m ass/volume)Ordered By: Rosalio Rajesh on 08-17-2024 Glucose [Mass/Vol] 152 mg/dL High 70-99 [facility] Serum or plasma calcium cathi urement (mass/volume)Ordered By: Rosalio Rajesh on 08-17-2024 Calcium [Mass/Vol] 9.7 mg/dL 7.6-11.0 [facility] Serum or plasma urea nitroge n measurement (mass/volume)Ordered By: Rosalio Rajesh on 08-17-2024 Urea nitrogen [Mass/Vol] 13 mg/dL 4-19 [facility] Sodium levelOrdered By: Francois Mena on 08-17-2024 Sodium [Moles/Vol] 141 mmol/L 133-145 [facility] TSH DL <= 0.005 mIU/L QnOrde red By: Rosalio Rajesh on 08-17-2024 TSH Qn 2.960 uIU/mL 0.300-4.200 [facility] Thyroid Stim Hormone (TSH)on 08-17-2024 TSH 2.960 uIU/mL Normal 0.300-4.200 [facility] Comment on above: Performed By: #### L 500.2500, L501.9520 ####[facility] [address] [place], [address] 102on 08-12-2024 102 HNO ID: [id number] Author: FRANCISCO JAVIER GALLARDO HDA Service: ? Author Type: ? Type: 102 Filed: 08/12/2024 11:33 Note Text: Code Status: Full Code Normal [facility] Cardiology Visit Reporton Cardiology Visit Report [facility] [address] [place] [address] OFFICE VISIT Date of Service: 08/11/24 MR#: [id number] Acct: [id number] Name: AZALEA MOTT Rep #: [id number] : 1950 Provider: Dr. Rosalio Mena MD Age/Sex: 74/F [place] [facility] [place] Status: Signed HPI HPI History of Present Illness Details: This lady has been referred to us for her recent diagnosis of atrial fibrillation. She was diagnosed with atrial fibrillation on routine workup prior to her right hip replacement surgery. She has had an echocardiogram done. It showed normal left ventricular systolic function. No major valvular abnormalities were noted. A Lexiscan stress Myoview was negative for ischemia. Postoperatively, patient went into atrial fibrillation with rapid ventricular response. She has since been treated with diltiazem and metoprolol for rate control. On apixaban for anticoagulation. Patient denies any chest pains or shortness of breath. According to her, she occasionally feels some palpitations. Yesterday she had a prolonged episode of palpitations. No syncope or presyncope. No lightheadedness. Denies orthopnea. No paroxysmal nocturnal dyspnea. Since her hip surgery, she has been having bilateral lower extremity swelling. She has been taking furosemide once daily however the edema has not improved. Intake Vital Signs 07/13/24 14:04 08/11/24 11:06 Height 5 ft 6 in 5 ft 6 in Weight: 228 lb BMI 36.8 BP 119/67 Blood Pressure Location Lt brachial Position Sitting Respiration 18 Pulse 57 L Pulse Source NIBP Intake Visit Reasons: AFIB W/RVR S/P Miner Operator Required: No Accompanied by: Is patient in pain?: No Allergies No Known Allergies Allergy (Verified 08/11/24 11:06) Medications ???Medication ???Instructions ???Recorded ???Confirmed ???Type cholecalciferol (vitamin D3) 50 2,000 unit PO DAILY supplement 08/10/24 History mcg (2,000 unit) capsule (Vitamin D3) atorvastatin 10 mg tablet 10 mg PO QHS cholesterol 07/06/24 08/10/24 History multivitamin (Daily Multi-Vitamin 1 tab PO DAILY Supplement 5 08/10/24 History tablet) apixaban 5 mg tablet (Eliquis) 5 mg PO BID 30 days #60 tabs 05/16 /25 06/04/25 Rx diltiazem HCl 300 mg capsule,24 300 mg PO DAILY 30 days #30 caps 0 07/22/24 08/10/24 Rx hr,extended release (Tiadylt ER) metoprolol succinate 100 mg 100 mg PO BID 30 days #60 tabs 08/10/24 Rx tablet,extended release 24 hr acetaminophen 500 mg tablet 1,000 mg PO Q8 PRN 08/10/24 History ascorbic acid (vitamin C) 500 mg 500 mg PO BID 08/10/24 08/10/24 Hi story tablet docusate sodium 100 mg capsule 100 mg PO BID PRN 08/10/24 5 History ferrous sulfate 325 mg (65 mg 650 mg PO QDAY 08/10/24 08/10/24 H istory iron) tablet furosemide 40 mg tablet (Lasix) 40 mg PO QDAY 08/10/24 08/10/24 Hi story multivitamin with minerals 1 tab PO QDAY 08/10/24 08/10/24 Hi story (Hair,Skin and Nails tablet) hydrochlorothiazide 25 mg tablet 25 mg PO QDAY 08/11/24 08/11/24 Hi story oxycodone 5 mg tablet 5 mg PO Q4 PRN pain 08/11/2408/11 History Ejection fraction %: 63 Have you fallen in the past year?: No PFSH Medical History Atrial fibrillation with RVR Chest pain COVID-19 CPAP (continuous positive airway pressure) dependence Essential (primary) hypertension Hearing loss, left Hypertensive urgency Non-smoker Obstructive sleep apnea RBBB Surgical History History of adenoidectomy History of colonoscopy History of hysteroscopy History of laparoscopic cholecystectomy History of laparoscopy History of left mastoidectomy History of tonsillectomy History of total right hip arthroplasty S/P tubal ligation Family History Mother Hypertension Asthma Diabetes COPD (chronic obstructive pulmonary disease) Crohn's disease Father , at 82. Non-Hodgkin lymphoma CHF (congestive heart failure) CVA (cerebral vascular accident) Sister CHF (congestive heart failure) Sister Diabetes Sister Hypertension Sister Fibromyalgia Sister Kidney disease Social History household members: spouse Smoking Status: Never smoker alcohol intake: never substance use type: does not use ROS Const Const: Negative for fatigue, weakness, headache(s) or weight gain ENT ENT: Negative for headache(s), dizziness, Nosebleed/epistaxis or balance problems Cardio Chest Pain: Yes Frequency: other Character: other (ache) Onset: exercise Location: mid sternal Duration: continuous (more content not included)... Normal [facility] 08-09-2024 CNP Telephone (HCSIND) AZALEA MOTT ([id number]) 1950 F Date Time Provider Department 08/09/24 PRADIP VIZCAINO HCSIND During your visit today, we recorded the following information about you: Pradip Vizcaino, PT 08/09/2024 4:[address] Zhang Tristan is reporting increased SOB today with activity. Her HR is running in the low 50's and does not elevate with activity . The edema in her feet remains unchanged She does not see the gold assayer until This Please advise Thanks Navdeep Villa PT, MD 08/10/2024 8:22 AM Signed Monitor symptoms. If worse, appointment or depending on severity, ER. Cardiology appointment is tomorrow. Heart rate is reasonable. Neeta Miles LPN 08/10/2024 9:04 AM Signed Spoke to Azalea, s/s are unchanged, not worse, given below recommendation, she is comfortable waiting until tomorrow. Neeta Miles LPN Allergies As of Date: 08/09/2024 Noted Allergy Reaction NORCO (HYDROCODONE-ACETAMINO PHEN) 10/24/2020 14 - Other: See Comments Comments: Weird dreams. Date Reviewed: 08/09/2024 Reviewed by: Pradip Vizcaino PT - Fully Assessed Reason for Visit: Home Care [4073] Cmt: Low heart rate Prescriptions as of 08/10/2024 - furosemide (LASIX) 40 mg tablet Take 1 tablet by mouth once daily for 14 days. - polyethylene glycol 3350 17 gram/dose powder Take 17 g by mouth as needed for constipation. Dissolve dose in 4 - 8 ounces of liquid and take as directed. - metoprolol succinate ER (TOPROL XL) 100 mg Take 1 tablet by mouth two times a day. - MULTIVITAMIN ORAL Take 1 tablet by mouth once daily. - ascorbic acid, vitamin C, (VITAMIN C) 500 mg tablet Take 1 tablet by mouth two times a day with meals for 19 doses. - acetaminophen (TYLENOL) 500 mg tablet Take 2 tablets by mouth every 8 hours as needed for pain. - dilTIAZem CD (CARDIZEM CD, CARTIA XT) 300 mg 24 hr capsule Take 1 capsule by mouth once daily. Patient should start on July 06, 2024. - apixaban (ELIQUIS) 5 mg tab(s) Take 1 tablet by mouth two times a day. - atorvastatin (LIPITOR) 10 mg tablet Take 1 tablet by mouth daily at bedtime. For cholesterol. - CPAP CPAP Supplies, All Necessary equipment including tubing and full mask ICD G47.33 - HAIR, SKIN AND NAILS, BIOTIN, ORAL Take 2 tablets by mouth once daily. - CPAP 30 day download for And please send chin strap Auto PAP @ 5-20 cm of water with humidification. Mask (per patient preference) optional chin strap (if indicated) , filters, tubing, humidifier and lifetime supplies. - ferrous sulfate 325 mg (65 mg iron) tablet Take 650 mg by mouth daily with breakfast. - cholecalciferol (VITAMIN D3) 50 mcg (2,000 unit) tablet Take 2,000 Units by mouth once daily. Problem List As Of Date 08/09/2024 Noted Resolved Dermatophytosis of foot [B35.3] 02/05/2006 03/07/2015 Hereditary and idiopathic peripheral neuropathy* 10/24/2020 Hearing Loss in Left Ear [H91.92] 03/27/2009 Post-menopausal bleeding [N95.0] 11/21/2011 03/28/2016 Thickened endometrium [R93.89] 12/05/2011 03/28/2016 Chester of foot [L84] 08/17/2013 03/28/2016 Primary osteoarthritis of right hip [M16.11] 08/09/2015 Arthritis of right hip [M16.11] 08/09/2015 10/24/2020 Hyperlipidemia LDL goal <100 [E78.5] 01/18/2016 Hypertension, essential [I10] 01/02/2020 SIOBHAN on CPAP [G47.33] 01/27/2020 Obesity, Class I, BMI 30-34.9 [E66.811] 10/25/2020 Chronic kidney insufficiency, stage 3 (moderate*08/25/2023 Impaired fasting glucose [R73.01] 04/06/2023 Venous insufficiency [I87.2] 09/02/2023 Atrial flutter (HCC) [I48.92] 06/27/2024 07/27/2024 Heart valve disease [I38] 06/27/2024 Mild pulmonary hypertension (HCC) [I27.20] 06/27/2024 S/P total right hip arthroplasty [Z96.641] 07/01/2024 Atrial fibrillation (HCC) [I48.91] 07/02/2024 Other specified postprocedural states [Z98.890] 07/12/2024 Encounter Status:Closed by PRADIP VIZCAINO on 08/09/24 Normal [facility] Basic metabolic 2000 panelon 08-08-2024 Anion gap [Moles/Vol] 11 mmol/L Normal 8-15 [facility] Comment on above: Order Comment: Speci men Type: BLOOD SPECIMENOrdering Facility: [facility] Address: [address] [place] [address] Performed By: #### 2 4321-2 ####[facility] LABCLIA [id number] [place] [address] [place] Calcium [Mass/Vol] 10.2 mg/dL Normal 8.5-10.2 [facility] Comment on above: Order Comment: Speci men Type: BLOOD SPECIMENOrdering Facility: [facility] Address: [address] [place], [place] [address] Performed By: #### 2 4321-2 ####[facility] [place] LABCLIA [id number] [place] [id number] [place] Chloride [Moles/Vol] 99 mmol/L Normal 98-107 [facility] Comment on above: Order Comment: Speci men Type: BLOOD SPECIMENOrdering Facility: [facility] Address: [address] [place] [address] Performed By: #### 2 4321-2 ####[facility] [place] LABCLIA [id number] [place] [id number] [place] CO2 [Moles/Vol] 28 mmol/L Normal 22-30 [facility] Comment on above: Order Comment: Speci men Type: BLOOD SPECIMENOrdering Facility: [facility] Address: [address] [place] [address] Performed By: #### 2 4321-2 ####[facility] [place] LABCLIA [id number] [place] [address] [place] Creatinine [Mass/Vol] 1.15 mg/dL High 0.58-0.96 [facility] Comment on above: Order Comment: Speci men Type: BLOOD SPECIMENOrdering Facility: [facility] Address: [address] [place] [address] Performed By: #### 2 4321-2 ####[facility] [place] LABCLIA [id number] [address] [facility] Creatinine and Glomerular filtration rate.predicted panel (S/P/Bld) 50 mL/min/1.73m??? Low >=60 [facility] Comment on above: Order Comment: Speci men Type: BLOOD SPECIMENOrdering Facility: [facility] Address: [address] [place] [address] Result Comment: Jessica mated Glomerular Filtration Rate (eGFR) is calculated using the 2020 CKD-EPI creatinine equation. This equation utilizes serum creatinine, sex, and age as parameters. The creatinine assay has traceable calibration to isotope dilution-mass spectrometry. Refer to KDIGO guidelines for clinical interpretation. In patients with unstable renal function, e.g. those with acute kidney injury, the eGFR may not accurately reflect actual GFR. Performed By: #### 2 4321-2 ####[facility] [place] LABCLIA [id number] [address] [address] [place] Glucose [Mass/Vol] 118 mg/dL High 74-99 [facility] Comment on above: Order Comment: Speci men Type: BLOOD SPECIMENOrdering Facility: [facility] Address: [address] [place] [address] Result Comment: The [place] [employer] (ADA) provides guidance for cutoff values for fasting glucose and random glucose. The ADA defines fasting as no caloric intake for at least 8 hours. Fasting plasma glucose results between 100 to 125 mg/dL indicate increased risk for diabetes (prediabetes). Fasting plasma glucose results greater than or equal to 126 mg/dL meet the criteria for diagnosis of diabetes. In the absence of unequivocal hyperglycemia, results should be confirmed by repeat testing. In a patient with classic symptoms of hyperglycemia or hyperglycemic crisis, random plasma glucose results greater than or equal to 200 mg/dL meet the criteria for diagnosis of diabetes. Reference: Standards of Medical Care in Diabetes 2016, [place] [employer]. Diabetes Care. 2016.39(Suppl 1). Performed By: #### 2 4321-2 ####[facility] [place] LABCLIA [id number] [facility] [place] [id number] [place] Potassium [Moles/Vol] 4.1 mmol/L Normal 3.7-5.1 [facility] Comment on above: Order Comment: Speci men Type: BLOOD SPECIMENOrdering Facility: [facility] Address: [address] [place] [id number] Performed By: #### 2 4321-2 ####[facility] [place] LABCLIA [id number] [facility] [address] [address] [place] Sodium [Moles/Vol] 138 mmol/L Normal 136-144 [facility] Comment on above: Order Comment: Speci men Type: BLOOD SPECIMENOrdering Facility: [facility] Address: [address] [place] [address] Performed By: #### 2 4321-2 ####[facility] [place] LABCLIA [id number] [address] [address] [place] Urea nitrogen [Mass/Vol] 22 mg/dL High 7-21 [facility] Comment on above: Order Comment: Speci men Type: BLOOD SPECIMENOrdering Facility: [facility] Address: [address] [place] [address] Performed By: #### 2 4321-2 ####[facility] [place] LABCLIA [id number] [address] [address] [place] Basic Metabolic Profile (BMP )on 08-04-2024 BUN Normal 4-19 [facility] Comment on above: Result Comment: Canc elled via OM: Order cancelled - Patient discharged Performed By: #### L 500.2500, L100.0100 #### [facility] [address] [place], [address] BUN/CRE Normal 10-20 [facility] Comment on above: Result Comment: Canc elled via OM: Order cancelled - Patient discharged Performed By: #### L 500.2500, L100.0100 #### [facility] [address] [place], [address] Calcium Normal 7.6-11.0 [facility] Comment on above: Result Comment: Canc elled via OM: Order cancelled - Patient discharged Performed By: #### L 500.2500, L100.0100 #### [facility] [address] [place], [address] CL Normal 98-108 [facility] Comment on above: Result Comment: Canc elled via OM: Order cancelled - Patient discharged Performed By: #### L 500.2500, L100.0100 #### [facility] [address] [place], [address] CO2 Normal 21.0-32.0 [facility] Comment on above: Result Comment: Canc elled via OM: Order cancelled - Patient discharged Performed By: #### L 500.2500, L100.0100 #### [facility] [address] [place], [address] CREAT,SERUM Normal 0.70-1.20 [facility] Comment on above: Result Comment: Canc elled via OM: Order cancelled - Patient discharged Performed By: #### L 500.2500, L100.0100 #### [facility] [address] [place], [address] eGFR Normal >60 [facility] Comment on above: Result Comment: Canc elled via OM: Order cancelled - Patient discharged Performed By: #### L 500.2500, L100.0100 #### [facility] [address] [place], [address] GAP Normal 5-15 [facility] Comment on above: Result Comment: Canc elled via OM: Order cancelled - Patient discharged Performed By: #### L 500.2500, L100.0100 #### [facility] [address] [place], [address] GLU Normal 70-99 [facility] Comment on above: Result Comment: Canc elled via OM: Order cancelled - Patient discharged Performed By: #### L 500.2500, L100.0100 #### [facility] [address] [place], [address] Potassium Normal 3.3-5.1 [facility] Comment on above: Result Comment: Canc elled via OM: Order cancelled - Patient discharged Performed By: #### L 500.2500, L100.0100 #### [facility] [address] [place], [address] Basic Metabolic Profile (BMP) Normal 133-145 [facility] Comment on above: Result Comment: Canc elled via OM: Order cancelled - Patient discharged Performed By: #### L 500.2500, L100.0100 #### [facility] [address] [place], [address] CBC W/Diff, Automatedon 05-2 Absolute Neut Normal 2.0-7.7 [facility] Comment on above: Result Comment: Canc elled via OM: Order cancelled - Patient discharged Performed By: #### L 500.2500, L100.0100 ####[facility] [address] [place], [address] HCT Normal 37-47 [facility] Comment on above: Result Comment: Canc elled via OM: Order cancelled - Patient discharged Performed By: #### L 500.2500, L100.0100 ####[facility] [address] [place], [address] HGB Normal 12.0-15.0 [facility] Comment on above: Result Comment: Canc elled via OM: Order cancelled - Patient discharged Performed By: #### L 500.2500, L100.0100 ####[facility] [address] [place], [address] MCH Normal 27.0-32.0 [facility] Comment on above: Result Comment: Canc elled via OM: Order cancelled - Patient discharged Performed By: #### L 500.2500, L100.0100 ####[facility] [address] [place], [address] MCHC Normal 32-36 [facility] Comment on above: Result Comment: Canc elled via OM: Order cancelled - Patient discharged Performed By: #### L 500.2500, L100.0100 ####[facility] [address] [place], [address] MCV Normal 81-99 [facility] Comment on above: Result Comment: Canc elled via OM: Order cancelled - Patient discharged Performed By: #### L 500.2500, L100.0100 ####[facility] [address] [place], [address] NEUT% Normal 47-70 [facility] Comment on above: Result Comment: Canc elled via OM: Order cancelled - Patient discharged Performed By: #### L 500.2500, L100.0100 ####[facility] [address] [place], [address] PLT Normal 150-450 [facility] Comment on above: Result Comment: Canc elled via OM: Order cancelled - Patient discharged Performed By: #### L 500.2500, L100.0100 ####[facility] [address] [place], [address] RBC Normal 4.2-5.4 [facility] Comment on above: Result Comment: Canc elled via OM: Order cancelled - Patient discharged Performed By: #### L 500.2500, L100.0100 ####[facility] [address] [place], [address] RDW CV Normal 11.6-14.6 [facility] Comment on above: Result Comment: Canc elled via OM: Order cancelled - Patient discharged Performed By: #### L 500.2500, L100.0100 ####[facility] [address] [place], [address] RDW SD Normal 35.1-43.9 [facility] Comment on above: Result Comment: Canc elled via OM: Order cancelled - Patient discharged Performed By: #### L 500.2500, L100.0100 ####[facility] [address] [place], [address] WBC Normal 4.4-11.0 [facility] Comment on above: Result Comment: Canc elled via OM: Order cancelled - Patient discharged Performed By: #### L 500.2500, L100.0100 ####[facility] [address] [place], [address] Carlie 08-02-2024 CNPN Telephone (HCSIND) AZALEA MOTT ([id number]) 1950 F Date Time Provider Department 08/02/24 LESLIE DAVISON HCSGOPI During your visit today, we recorded the following information about you: Leslie Davison PTA 08/02/2024 2:35 PM Signed I saw patient for PT visit today. She completed her 7 days of lasix today but continues to have 2+pitting edema in Jaswinder feet/ankles. Vitals today: BP: 110/60 HR 66 PO2 99 Resp 18 No SOB reported or noted. Patient is planning on calling your office to discuss. Thanks Allergies As of Date: 08/02/2024 Noted Allergy Reaction NORCO (HYDROCODONE-ACETAMINO PHEN) 10/24/2020 14 - Other: See Comments Comments: Weird dreams. Date Reviewed: 07/28/2024 Reviewed by: Leslie Davison PTA - Fully Assessed Reason for Visit: Home Care [4073] Cmt: Edema Prescriptions as of 08/02/2024 - polyethylene glycol 3350 17 gram/dose powder Take 17 g by mouth as needed for constipation. Dissolve dose in 4 - 8 ounces of liquid and take as directed. - metoprolol succinate ER (TOPROL XL) 100 mg Take 1 tablet by mouth two times a day. - furosemide (LASIX) 40 mg tablet Take 1 tablet by mouth once daily for 7 days. - MULTIVITAMIN ORAL Take 1 tablet by mouth once daily. - hydroCHLOROthiazide 25 mg tablet Take 25 mg by mouth once daily. - ascorbic acid, vitamin C, (VITAMIN C) 500 mg tablet Take 1 tablet by mouth two times a day with meals for 19 doses. - acetaminophen (TYLENOL) 500 mg tablet Take 2 tablets by mouth every 8 hours as needed for pain. - dilTIAZem CD (CARDIZEM CD, CARTIA XT) 300 mg 24 hr capsule Take 1 capsule by mouth once daily. Patient should start on July 06, 2024. - docusate sodium (COLACE) 100 mg capsule Take 1 capsule by mouth two times a day as needed for constipation. - apixaban (ELIQUIS) 5 mg tab(s) Take 1 tablet by mouth two times a day. - atorvastatin (LIPITOR) 10 mg tablet Take 1 tablet by mouth daily at bedtime. For cholesterol. - CPAP CPAP Supplies, All Necessary equipment including tubing and full mask ICD G47.33 - HAIR, SKIN AND NAILS, BIOTIN, ORAL Take 2 tablets by mouth once daily. - CPAP 30 day download for And please send chin strap Auto PAP @ 5-20 cm of water with humidification. Mask (per patient preference) optional chin strap (if indicated) , filters, tubing, humidifier and lifetime supplies. - ferrous sulfate 325 mg (65 mg iron) tablet Take 650 mg by mouth daily with breakfast. - cholecalciferol (VITAMIN D3) 50 mcg (2,000 unit) tablet Take 2,000 Units by mouth once daily. Problem List As Of Date 08/02/2024 Noted Resolved Dermatophytosis of foot [B35.3] 02/05/2006 03/07/2015 Hereditary and idiopathic peripheral neuropathy* 10/24/2020 Hearing Loss in Left Ear [H91.92] 03/27/2009 Post-menopausal bleeding [N95.0] 11/21/2011 03/28/2016 Thickened endometrium [R93.89] 12/05/2011 03/28/2016 Chester of foot [L84] 08/17/2013 03/28/2016 Primary osteoarthritis of right hip [M16.11] 08/09/2015 Arthritis of right hip [M16.11] 08/09/2015 10/24/2020 Hyperlipidemia LDL goal <100 [E78.5] 01/18/2016 Hypertension, essential [I10] 01/02/2020 SIOBHAN on CPAP [G47.33] 01/27/2020 Obesity, Class I, BMI 30-34.9 [E66.811] 10/25/2020 Chronic kidney insufficiency, stage 3 (moderate*08/25/2023 Impaired fasting glucose [R73.01] 04/06/2023 Venous insufficiency [I87.2] 09/02/2023 Atrial flutter (HCC) [I48.92] 06/27/2024 07/27/2024 Heart valve disease [I38] 06/27/2024 Mild pulmonary hypertension (HCC) [I27.20] 06/27/2024 S/P total right hip arthroplasty [Z96.641] 07/01/2024 Atrial fibrillation (HCC) [I48.91] 07/02/2024 Other specified postprocedural states [Z98.890] 07/12/2024 Encounter Status:Closed [facility] AZALEA [facility]OTT ([id number]) 1950 F Date Time Provider Department 08/02/24 NAVDEEP ULLOA INTMWS During your visit today, we recorded the following information about you: Karlee Stinson RN 08/02/2024 2:34 PM Signed Patient calls with update since appointment on 07/27/2024. Patient reports that her leg swelling bilateral continues up to her knees with no changes since being on the lasix 40 mg daily. Reports that the tops of her feet might be a little more swollen than previously. Patient asking if provider would want to extend the lasix for additional time. Recommended elevating legs and watching sodium intake. Patient reports that she is as much as possible. [facility] JACOB Brasher Victor H, MD 08/03/2024 12:09 AM Signed The following approved medication requests have been transmitted electronically. Requested Prescriptions Signed Prescriptions Disp Refills furosemide (LASIX) 40 mg tablet 14 tablet 0 Sig: Take 1 tablet by mouth once daily for 14 days. Authorizing Provider: NAVDEEP ULLOA Discontinue hydrochlorothiazide. Non fasting BMP next week. MD Milad Randhawa Krystle, RN 08/03/2024 9:16 AM Signed Call placed to patient with no answer. Message left for patient to return call to triage nurse. JACOB Brasher Stephanie, RN 08/03/2024 9:23 AM Signed Patient notified of results and provider's instructions. Patient verbalizes understanding. Chayo Alanis RN Allergies As of Date: 08/02/2024 Noted Allergy Reaction NORCO (HYDROCODONE-ACETAMINO PHEN) 10/24/2020 14 - Other: See Comments Comments: Weird dreams. Date Reviewed: 08/02/2024 Reviewed by: Leslie Davison PTA - Fully Assessed Reason for Visit: Patient Update [1234] Visit Diagnosis:Venous insufficiency [I87.2] Order(s):furosemide (LASIX) 40 mg tabletTake 1 tablet by mouth once daily for 14 days.Disp: 14 tabletRfl: 0 BASIC METABOLIC PANEL [SQBMP] Order #: [id number] FUTURE Prescriptions as of 08/03/2024 - furosemide (LASIX) 40 mg tablet Take 1 tablet by mouth once daily for 14 days. - polyethylene glycol 3350 17 gram/dose powder Take 17 g by mouth as needed for constipation. Dissolve dose in 4 - 8 ounces of liquid and take as directed. - metoprolol succinate ER (TOPROL XL) 100 mg Take 1 tablet by mouth two times a day. - MULTIVITAMIN ORAL Take 1 tablet by mouth once daily. - ascorbic acid, vitamin C, (VITAMIN C) 500 mg tablet Take 1 tablet by mouth two times a day with meals for 19 doses. - acetaminophen (TYLENOL) 500 mg tablet Take 2 tablets by mouth every 8 hours as needed for pain. - dilTIAZem CD (CARDIZEM CD, CARTIA XT) 300 mg 24 hr capsule Take 1 capsule by mouth once daily. Patient should start on July 06, 2024. - docusate sodium (COLACE) 100 mg capsule Take 1 capsule by mouth two times a day as needed for constipation. - apixaban (ELIQUIS) 5 mg tab(s) Take 1 tablet by mouth two times a day. - atorvastatin (LIPITOR) 10 mg tablet Take 1 tablet by mouth daily at bedtime. For cholesterol. - CPAP CPAP Supplies, All Necessary equipment including tubing and full mask ICD G47.33 - HAIR, SKIN AND NAILS, BIOTIN, ORAL Take 2 tablets by mouth once daily. - CPAP 30 day download for And please send chin strap Auto PAP @ 5-20 cm of water with humidification. Mask (per patient preference) optional chin strap (if indicated) , filters, tubing, humidifier and lifetime supplies. - ferrous sulfate 325 mg (65 mg iron) tablet Take 650 mg by mouth daily with breakfast. - cholecalciferol (VITAMIN D3) 50 mcg (2,000 unit) tablet Take 2,000 Units by mouth once daily. Problem List As Of Date 08/02/2024 Noted Resolved Dermatophytosis of foot [B35.3] 02/05/2006 03/07/2015 Hereditary and idiopathic peripheral neuropathy* 10/24/2020 Hearing Loss in Left Ear [H91.92] 03/27/2009 Post-menopausal bleeding [N95.0] 11/21/2011 03/28/2016 Thickened endometrium [R93.89] 12/05/2011 03/28/2016 Chester of foot [L84] 08/17/2013 03/28/2016 Primary osteoarthritis of right hip [M16.11] 08/09/2015 Arthritis of right hip [M16.11] 08/09/2015 10/24/2020 Hyperlipidemia LDL goal <100 [E78.5] 01/18/2016 Hypertension, essential [I10] 01/02/2020 SIOBHAN on CPAP [G47.33] 01/27/2020 Obesity, Class I, BMI 30-34.9 [E66.811] 10/25/2020 Chronic kidney insufficiency, stage 3 (moderate*08/25/2023 Impaired fasting glucose [R73.01] 04/06/2023 Venous insufficiency [I87.2] 09/02/2023 Atrial flutter (HCC) [I48.92] 06/27/2024 07/27/2024 Heart valve disease [I38] 06/27/2024 Mild pulmonary hypertension (HCC) [I27.20] 06/27/2024 S/P total right hip arthroplasty [Z96.641] 07/01/2024 Atrial fibrillation (HCC) [I48.91] 07/02/2024 Other specified postprocedural states [Z98.890] 07/12/2024 Prescriptions ordered this encounter Disp Refills Start End (more content not included)... Normal [facility] Basic Metabolic Profile (BMP )on 07-28-2024 BUN Normal 4-19 [facility] Comment on above: Result Comment: Canc elled via OM: Order cancelled - Patient discharged Performed By: #### L 500.2500, L100.0100 #### [facility] [address] [place], [address] BUN/CRE Normal 10-20 [facility] Comment on above: Result Comment: Canc elled via OM: Order cancelled - Patient discharged Performed By: #### L 500.2500, L100.0100 #### [facility] [address] [place], [address] Calcium Normal 7.6-11.0 [facility] Comment on above: Result Comment: Canc elled via OM: Order cancelled - Patient discharged Performed By: #### L 500.2500, L100.0100 #### [facility] [address] [place], [address] CL Normal 98-108 [facility] Comment on above: Result Comment: Canc elled via OM: Order cancelled - Patient discharged Performed By: #### L 500.2500, L100.0100 #### [facility] [address] [place], [address] CO2 Normal 21.0-32.0 [facility] Comment on above: Result Comment: Canc elled via OM: Order cancelled - Patient discharged Performed By: #### L 500.2500, L100.0100 #### [facility] [address] [place], [address] CREAT,SERUM Normal 0.70-1.20 [facility] Comment on above: Result Comment: Canc elled via OM: Order cancelled - Patient discharged Performed By: #### L 500.2500, L100.0100 #### [facility] [address] [place], [address] eGFR Normal >60 [facility] Comment on above: Result Comment: Canc elled via OM: Order cancelled - Patient discharged Performed By: #### L 500.2500, L100.0100 #### [facility] [address] [place], [address] GAP Normal 5-15 [facility] Comment on above: Result Comment: Canc elled via OM: Order cancelled - Patient discharged Performed By: #### L 500.2500, L100.0100 #### [facility] [address] [place], [address] GLU Normal 70-99 [facility] Comment on above: Result Comment: Canc elled via OM: Order cancelled - Patient discharged Performed By: #### L 500.2500, L100.0100 #### [facility] [address] [place], [address] Potassium Normal 3.3-5.1 [facility] Comment on above: Result Comment: Canc elled via OM: Order cancelled - Patient discharged Performed By: #### L 500.2500, L100.0100 #### [facility] [address] [place], [address] Basic Metabolic Profile (BMP) Normal 133-145 [facility] Comment on above: Result Comment: Canc elled via OM: Order cancelled - Patient discharged Performed By: #### L 500.2500, L100.0100 #### [facility] [address] [place], [address] CBC W/Diff, Automatedon 05-2 Absolute Neut Normal 2.0-7.7 [facility] Comment on above: Result Comment: Canc elled via OM: Order cancelled - Patient discharged Performed By: #### L 500.2500, L100.0100 #### [facility] [address] [place], [address] HCT Normal 37-47 [facility] Comment on above: Result Comment: Canc elled via OM: Order cancelled - Patient discharged Performed By: #### L 500.2500, L100.0100 #### [facility] [address] [place], [address] HGB Normal 12.0-15.0 [facility] Comment on above: Result Comment: Canc elled via OM: Order cancelled - Patient discharged Performed By: #### L 500.2500, L100.0100 #### [facility] [address] [place], [address] MCH Normal 27.0-32.0 [facility] Comment on above: Result Comment: Canc elled via OM: Order cancelled - Patient discharged Performed By: #### L 500.2500, L100.0100 #### [facility] [address] [place], [address] MCHC Normal 32-36 [facility] Comment on above: Result Comment: Canc elled via OM: Order cancelled - Patient discharged Performed By: #### L 500.2500, L100.0100 #### [facility] [address] [place], [address] MCV Normal 81-99 [facility] Comment on above: Result Comment: Canc elled via OM: Order cancelled - Patient discharged Performed By: #### L 500.2500, L100.0100 #### [facility] [address] [place], [address] NEUT% Normal 47-70 [facility] Comment on above: Result Comment: Canc elled via OM: Order cancelled - Patient discharged Performed By: #### L 500.2500, L100.0100 #### [facility] [address] [place], [address] PLT Normal 150-450 [facility] Comment on above: Result Comment: Canc elled via OM: Order cancelled - Patient discharged Performed By: #### L 500.2500, L100.0100 #### [facility] [address] [place], [address] RBC Normal 4.2-5.4 [facility] Comment on above: Result Comment: Canc elled via OM: Order cancelled - Patient discharged Performed By: #### L 500.2500, L100.0100 #### [facility] [address] [place], [address] RDW CV Normal 11.6-14.6 [facility] Comment on above: Result Comment: Canc elled via OM: Order cancelled - Patient discharged Performed By: #### L 500.2500, L100.0100 #### [facility] [address] [place], [address] RDW SD Normal 35.1-43.9 [facility] Comment on above: Result Comment: Canc elled via OM: Order cancelled - Patient discharged Performed By: #### L 500.2500, L100.0100 #### [facility] [address] [place], [address] WBC Normal 4.4-11.0 [facility] Comment on above: Result Comment: Canc elled via OM: Order cancelled - Patient discharged Performed By: #### L 500.2500, L100.0100 #### [facility] [address] [place], [address] CNOVon 07-27-2024 CNOV Office Visit (INTMWS ) AZALEA MOTT ([id number]) 1950 F Date Time Provider Department 07/27/24 11:20 AM NAVDEEP ULLOA During your visit today, we recorded the following information about you: Pulse Respiration Blood pressure Weight 72/minute 18/minute 118/72 99.7 kg Neeta MilesJOSE 07/27/2024 1:25 PM Signed Patient Outreach 07/25/2024 Teacher Associate Management Wanda Costa RNinnersole maker Transition Of Care Reason for Visit Progress Notes Wanda Costa RN (Registered Nurse) Internal Medicine Transition Care Management (TCM) Initial Outreach PCP Update / Actionable Items HRTIC TCM Home Visit Referral Source of Stratification: [facility] Hospital Admission Status: Discharged Readmission Risk Score: N/A Patient's zip code: [address] Is zip code within program service area: No Patient Source: [id number] ([facility]) Discharge Outreach Summary: Spoke with patient. Doing better. No pain. Already had follow up with physical therapy and told should be walking with cane before week is out. Using walker for now. Told OT not needed. Denies fever, shortness of breath or chest pain No n/v Voiding. Moved bowels. No questions about medications, discharge orders or follow up Has PCP follow up 07-27-24 Denies need for further TCM calls or follow up. Verbalizing understanding to call provider or [facility] number as needed with any further questions or concerns or changes in current status. Patient discharged from [facility] Discharge date: 07-22-24 Admitted for: Total right hip replacement Readmission Risk: N/A Value-Based Contract: ACO Contact: Contact made with patient: Yes Hi, my name is Wanda Costa RN and I am calling from the [facility] on behalf of your Primary Care Provider, Navdeep Ulloa MD. I understand you were recently in the hospital, so I am calling to check in with you to ensure you are feeling well now that you are home. May I ask you a few questions related to your hospital stay and well-being? Yes Spoke to: Patient Validation: Validated the person spoken to is actively involved in the patient's care. The patient was identified by Name and Date of . Symptoms: Are you feeling about the same, better or worse since leaving the hospital? Better Medications: Do you have any questions about taking your medications, including which medications you should be on, or do you need refills on your medications? No Medication Review: Declined at this time per patient preference Discharge Instructions: Your Discharge Instructions / After Visit Summary (AVS) are important in guiding you through the recovery process. Do you have any questions related to your discharge instructions? No Home Care: Were you discharged with home care? Yes Has your Home Care Agency contacted you? Yes Name of Home Care Agency: [facility] Phone number, if available: [phone] Start of Home Care services date: 07-23-24 Home care services included: Physical / Occupational Therapy Equipment: Do you have all the necessary equipment and supplies needed at your home? Yes The patient verbalizes understanding the use of the equipment and supplies Social: Your mental health is as important to us as your physical health. Would you mind answering a few questions on this topic? Yes On the Storyboard review: Food Insecurity, Transportation, Depression, Housing, and Financial Strain: Complete any SDOHs, listed above, if not addressed in the past 3 months. If all SDOHs, listed above, have been addressed within the last 3 months, confirm responses and update any SDOHs that have changed. Action Taken: No needs verbalized. No action required. Follow-Up Appointment: [Appointment / TCM Follow-up within 14 days] I would like to help you schedule a hospital follow-up virtual or telephone visit with your PCP. This is a great way for you to connect with your provider to ensure you have safely transitioned home. If you are agreeable, I will send your request to a ux design lead who will contact and assist you with that appointment. This will give you an opportunity to ask any questions or address any concerns you may have with your PCP. Inform the patient that if they have any questions or concerns prior to that appointment, to call their PCP's office right away. Appointment Action: No action required; patient already has appointment scheduled. Education details: Patient and family educated on issues/questions related to reason for admission, transition of care topics, and follow-up needed upon discharge. Wanda Costa RN July 25, 2024 12:07 PM Note Details Additional Documentation Encounter Info: Billing Info, History, Allergies, Detailed Report, Procedural Documentation Pharmacy Benefits Open Encounter AZALEA MOTT - 2024 Gabbie (more content not included)... Normal [facility] CNPNon 07-23-2024 CNPN Telephone (HCSIND) AZALEA MOTT ([id number]) 1950 F Date Time Provider Department 07/23/24 SANJEEV SIMMS HCSIND During your visit today, we recorded the following information about you: Sanjeev Simms, PT 07/23/2024 1:04 PM Signed The following medications are on the DC medication list however not in the computer hydroCHLOROthiazide 25 mg tablet Dose: 25 mg / Route: ORAL / Freq: DAILY The following medication is in the home however not on the medication list: oxyCODONE IR (ROXICODONE) 5 mg immediate release tablet Dose: 5 mg / Route: ORAL / Freq: NEEDED / Admin Inst: every 4 hours as needed for pain The following medication patient is not currently taking: Black Cohosh 40 mg tab (Paused) Take 1 tablet by mouth. Take 1 tablet every other day docusate sodium (COLACE) 100 mg capsule Take 1 capsule by mouth two times a day as needed for constipation. elderberry fruit (ELDERBERRY ORAL) Take 2 Doses by mouth once daily. Fiber Cap Take 3 capsules by mouth once daily. HAIR, SKIN AND NAILS, BIOTIN, ORAL Take 2 tablets by mouth once daily. magnesium hydroxide (MOM) 400 mg/5 mL suspension Take 30 mL by mouth once daily as needed for constipation pantoprazole DR (PROTONIX) 40 mg tablet Take 1 tablet by mouth daily at 6 am. TURMERIC ORAL Take by mouth once daily. With curcumin Please reach out to patient for any medication clarification Sanjeev Simms PT, DPT Navdeep Ulloa MD 07/26/2024 1:38 PM Signed Noted. We'll review at tomorrow. Allergies As of Date: 07/23/2024 Noted Allergy Reaction NORCO (HYDROCODONE-ACETAMINO PHEN) 10/24/2020 14 - Other: See Comments Comments: Weird dreams. Date Reviewed: 07/20/2024 Reviewed by: Frida Bourgeois LPN - Fully Assessed Reason for Visit: Home Care [4073] Cmt: Medication update Prescriptions as of 07/26/2024 - MULTIVITAMIN ORAL Take 1 tablet by mouth once daily. - hydroCHLOROthiazide 25 mg tablet Take 25 mg by mouth once daily. - oxyCODONE IR (ROXICODONE) 5 mg immediate release tablet Take 5 mg by mouth every 4 hours as needed for pain. every 4 hours as needed for pain - ascorbic acid, vitamin C, (VITAMIN C) 500 mg tablet Take 1 tablet by mouth two times a day with meals for 19 doses. - acetaminophen (TYLENOL) 500 mg tablet Take 2 tablets by mouth every 8 hours as needed for pain. - dilTIAZem CD (CARDIZEM CD, CARTIA XT) 300 mg 24 hr capsule Take 1 capsule by mouth once daily. Patient should start on July 06, 2024. - metoprolol succinate ER (TOPROL XL) 100 mg Take 1 tablet by mouth once daily. - magnesium hydroxide (MOM) 400 mg/5 mL suspension Take 30 mL by mouth once daily as needed for constipation. - pantoprazole DR (PROTONIX) 40 mg tablet Take 1 tablet by mouth daily at 6 am. - docusate sodium (COLACE) 100 mg capsule Take 1 capsule by mouth two times a day as needed for constipation. - apixaban (ELIQUIS) 5 mg tab(s) Take 1 tablet by mouth two times a day. - atorvastatin (LIPITOR) 10 mg tablet Take 1 tablet by mouth daily at bedtime. For cholesterol. - CPAP CPAP Supplies, All Necessary equipment including tubing and full mask ICD G47.33 - HAIR, SKIN AND NAILS, BIOTIN, ORAL Take 2 tablets by mouth once daily. - elderberry fruit (ELDERBERRY ORAL) Take 2 Doses by mouth once daily. - CPAP 30 day download for And please send chin strap Auto PAP @ 5-20 cm of water with humidification. Mask (per patient preference) optional chin strap (if indicated) , filters, tubing, humidifier and lifetime supplies. - TURMERIC ORAL Take by mouth once daily. With curcumin - ferrous sulfate 325 mg (65 mg iron) tablet Take 650 mg by mouth daily with breakfast. - cholecalciferol (VITAMIN D3) 50 mcg (2,000 unit) tablet Take 2,000 Units by mouth once daily. Problem List As Of Date 07/23/2024 Noted Resolved Dermatophytosis of foot [B35.3] 02/05/2006 03/07/2015 Hereditary and idiopathic peripheral neuropathy* 10/24/2020 Hearing Loss in Left Ear [H91.92] 03/27/2009 Post-menopausal bleeding [N95.0] 11/21/2011 03/28/2016 Thickened endometrium [R93.89] 12/05/2011 03/28/2016 [place] of foot [L84] 08/17/2013 03/28/2016 Primary osteoarthritis of right hip [M16.11] 08/09/2015 Arthritis of right hip [M16.11] 08/09/2015 10/24/2020 Hyperlipidemia LDL goal <100 [E78.5] 01/18/2016 Hypertension, essential [I10] 01/02/2020 SIOBHAN on CPAP [G47.33] 01/27/2020 Obesity, Class I, BMI 30-34.9 [E66.811] 10/25/2020 Chronic kidney insufficiency, stage 3 (moderate*08/25/2023 Impaired fasting glucose [R73.01] 04/06/2023 Venous insufficiency [I87.2] 09/02/2023 Atrial flutter (HCC) [I48.92] 06/27/2024 Heart valve disease [I38] 06/27/2024 Mild pulmonary hypertension (HCC) [I27.20] 06/27/2024 S/P total right hip arthroplasty [Z96.641] 07/01/2024 Atrial fibrillation with RVR (HCC) [I48.91] 07/02/2024 07/06/2024 Other specified postprocedural states [Z98.890] 07/12 (more content not included)... Normal [facility] Absolute lymphocyte countOrd ered By: New Bear on 07-21-2024 Lymphocytes Auto (Unsp spec) [#/Vol] 1.76 10*3/uL 0.83-4.51 [facility] Absolute neutrophil countOrd ered By: New Bear on 07-21-2024 Neutrophils (Bld) [#/Vol] 4.9 10*3/uL 2.0-7.7 [facility] Anion gap in Serum or Plasma Ordered By: New Bear on 07-21-2024 Anion gap [Moles/Vol] 12 mmol/L 07-21 [facility] Automated lymphocyte count a s percentage of total leukocytesOrdered By: New Bear on 07-21-2024 Lymphocytes/100 WBC Auto (Unsp spec) 22.9 % [facility] BUN/creatinine ratioOrdered By: New Bear on 07-21-2024 Urea nitrogen/Creatinine [Mass ratio] 16.6 mg/mg 12-26 [facility] Basic Metabolic Profile (BMP )on 07-21-2024 BUN/CRE 16.6 RATIO Normal 12-26 [facility] Comment on above: Performed By: #### L 100.0100, L500.2500 #### [facility] [address] [place], [address] Calcium [Mass/Vol] 9.8 mg/dL Normal 7.6-11.0 [facility] Comment on above: Performed By: #### L 100.0100, L500.2500 #### [facility] [address] [place], [address] Chloride [Moles/Vol] 98 mmol/L Normal 98-108 [facility] Comment on above: Performed By: #### L 100.0100, L500.2500 #### [facility] [address] [place], [address] CO2 [Moles/Vol] 26.8 mmol/L Normal 21.0-32.0 [facility] Comment on above: Performed By: #### L 100.0100, L500.2500 #### [facility] [address] [place], [address] Creatinine [Mass/Vol] 0.99 mg/dL Normal 0.70-1.20 [facility] Comment on above: Performed By: #### L 100.0100, L500.2500 #### [facility] [address] [place], [address] ECRCL 60.99 ml/min Normal 50-250 [facility] Comment on above: Performed By: #### L 100.0100, L500.2500 #### [facility] [address] [place], [address] GAP 12 Normal 5-15 [facility] Comment on above: Performed By: #### L 100.0100, L500.2500 #### [facility] [address] [place], [address] GFR/1.73 sq M.predicted among non-blacks MDRD (S/P/Bld) [Vol rate/Area] 60 mL/min/{1.73_m2} Normal >60 [facility] Comment on above: Result Comment: mL/m in/1.73m2 CKD-EPI Creatinine Equation (2020) Performed By: #### L 100.0100, L500.2500 #### [facility] [address] [place], [address] Glucose [Mass/Vol] 107 mg/dL High 70-99 [facility] Comment on above: Performed By: #### L 100.0100, L500.2500 #### [facility] [address] [place], [address] Potassium [Moles/Vol] 3.8 mmol/L Normal 3.3-5.1 [facility] Comment on above: Performed By: #### L 100.0100, L500.2500 #### [facility] [address] [place], [address] Sodium [Moles/Vol] 136 mmol/L Normal 133-145 [facility] Comment on above: Performed By: #### L 100.0100, L500.2500 #### [facility] [address] [place], [address] Urea nitrogen [Mass/Vol] 17 mg/dL Normal 4-19 [facility] Comment on above: Performed By: #### L 100.0100, L500.2500 #### [facility] [address] [place], [address] Basophil percentageOrdered B y: New Bear on 07-21-2024 Basophils/100 WBC (Bld) 0.9 % 0-1 [facility] CBC W/Diff, Automatedon 07-07 Absolute Lymph 1.76 X10 3/uL Normal 0.83-4.51 [facility] Comment on above: Performed By: #### L 100.0100, L500.2500 #### [facility] [address] [place], [address] Absolute Neut 4.9 X10 3/uL Normal 2.0-7.7 [facility] Comment on above: Performed By: #### L 100.0100, L500.2500 #### [facility] [address] [place], [address] Basophils/100 WBC (Bld) 0.9 % Normal 0-1 [facility] Comment on above: Performed By: #### L 100.0100, L500.2500 #### [facility] [address] [place], [address] Eosinophils/100 WBC (Bld) 3.6 % Normal 0-5 [facility] Comment on above: Performed By: #### L 100.0100, L500.2500 #### [facility] [address] [place], [address] Erythrocyte distribution width (RBC) [Ratio] 13.2 % Normal 11.6-14.6 [facility] Comment on above: Performed By: #### L 100.0100, L500.2500 #### [facility] [address] [place], [address] Hematocrit (Bld) [Volume fraction] 31.3 % Low 37-47 [facility] Comment on above: Performed By: #### L 100.0100, L500.2500 #### [facility] [address] [place], [address] Hemoglobin (Bld) [Mass/Vol] 10.2 g/dL Low 12.0-15.0 [facility] Comment on above: Performed By: #### L 100.0100, L500.2500 #### [facility] [address] [place], [address] IG% 0.400 Normal 0.0-0.9 [facility] Comment on above: Result Comment: IG% - Immature Granulocytes (promyelocytes, myelocytes and metamyelocytes) > 1% indicates that a LEFT SHIFT is Present. Performed By: #### L 100.0100, L500.2500 #### [facility] [address] [place], [address] Lymphocytes/100 WBC (Bld) 22.9 % Normal 19-41 [facility] Comment on above: Performed By: #### L 100.0100, L500.2500 #### [facility] [address] [place], [address] MCH (RBC) [Entitic mass] 29.7 pg Normal 27.0-32.0 [facility] Comment on above: Performed By: #### L 100.0100, L500.2500 #### [facility] [address] [place], [address] MCHC (RBC) [Mass/Vol] 32.6 g/dL Normal 32-36 [facility] Comment on above: Performed By: #### L 100.0100, L500.2500 #### [facility] [address] [place], [address] MCV (RBC) [Entitic vol] 91.0 fL Normal 81-99 [facility] Comment on above: Performed By: #### L 100.0100, L500.2500 #### [facility] [address] [place], [address] Monocytes/100 WBC (Bld) 8.1 % Normal 0-10 [facility] Comment on above: Performed By: #### L 100.0100, L500.2500 #### [facility] [address] [place], [address] Neutrophils/100 WBC (Bld) 64.1 % Normal 47-70 [facility] Comment on above: Performed By: #### L 100.0100, L500.2500 #### [facility] [address] [place], [address] Nucleated RBC (Bld) [#/Vol] 0 10*3/uL Normal 0-5 [facility] Comment on above: Performed By: #### L 100.0100, L500.2500 #### [facility] [address] [place], [address] Platelet mean volume (Bld) [Entitic vol] 10.1 fL Normal 6.2-12.0 [facility] Comment on above: Performed By: #### L 100.0100, L500.2500 #### [facility] [address] [place], [address] Platelets (Bld) [#/Vol] 383 10*3/uL Normal 150-450 [facility] Comment on above: Performed By: #### L 100.0100, L500.2500 #### [facility] [address] [place], [address] RBC (Bld) [#/Vol] 3.44 10*6/uL Low 4.2-5.4 [facility] Comment on above: Performed By: #### L 100.0100, L500.2500 #### [facility] [address] [place], [address] RDW SD 43.5 fl Normal 35.1-43.9 [facility] Comment on above: Performed By: #### L 100.0100, L500.2500 #### [facility] [address] [place], [address] WBC (Bld) [#/Vol] 7.7 10*3/uL Normal 4.4-11.0 [facility] Comment on above: Performed By: #### L 100.0100, L500.2500 #### [facility] [address] [place], [address] CNPNon 07-21-2024 CNPN Telephone (HCSIND) AZALEA MOTT ([id number]) 1950 F Date Time Provider Department 07/21/24 JULIA REYNOSO During your visit today, we recorded the following information about you: Julia Reynoso LPN 07/21/2024 2:02 PM Signed Date/Time: 07/21/2024 2:01 PM Spoke with Azalea @ phone #: [phone] - Preferred # for contact: [phone] Have you received help from a home care company in the last 60 days? no Are you agreeable to [facility] services? yes What address will we be seeing you at? [address] [facility] [address] Do you have any upcoming appointments or things we need to schedule around? no Do you have a teachable CG or can you manage your care independently? Independent, family supportive Allergies As of Date: 07/21/2024 Noted Allergy Reaction NORCO (HYDROCODONE-ACETAMINO PHEN) 10/24/2020 14 - Other: See Comments Comments: Weird dreams. Date Reviewed: 07/20/2024 Reviewed by: Frida Bourgeois LPN - Fully Assessed Reason for Visit: Home Care [4073] Cmt: Confirmation call Prescriptions as of 07/21/2024 - ascorbic acid, vitamin C, (VITAMIN C) 500 mg tablet Take 1 tablet by mouth two times a day with meals for 19 doses. - acetaminophen (TYLENOL) 500 mg tablet Take 2 tablets by mouth every 8 hours as needed for pain. - dilTIAZem CD (CARDIZEM CD, CARTIA XT) 300 mg 24 hr capsule Take 1 capsule by mouth once daily. Patient should start on July 06, 2024. - metoprolol succinate ER (TOPROL XL) 100 mg Take 1 tablet by mouth once daily. - magnesium hydroxide (MOM) 400 mg/5 mL suspension Take 30 mL by mouth once daily as needed for constipation. - pantoprazole DR (PROTONIX) 40 mg tablet Take 1 tablet by mouth daily at 6 am. - docusate sodium (COLACE) 100 mg capsule Take 1 capsule by mouth two times a day as needed for constipation. - apixaban (ELIQUIS) 5 mg tab(s) Take 1 tablet by mouth two times a day. - atorvastatin (LIPITOR) 10 mg tablet Take 1 tablet by mouth daily at bedtime. For cholesterol. - CPAP CPAP Supplies, All Necessary equipment including tubing and full mask ICD G47.33 - HAIR, SKIN AND NAILS, BIOTIN, ORAL Take 2 tablets by mouth once daily. - elderberry fruit (ELDERBERRY ORAL) Take 2 Doses by mouth once daily. - CPAP 30 day download for And please send chin strap Auto PAP @ 5-20 cm of water with humidification. Mask (per patient preference) optional chin strap (if indicated) , filters, tubing, humidifier and lifetime supplies. - TURMERIC ORAL Take by mouth once daily. With curcumin - Black Cohosh 40 mg tab (Mar Hold) Take 1 tablet by mouth. Take 1 tablet every other day - ferrous sulfate 325 mg (65 mg iron) tablet Take 650 mg by mouth daily with breakfast. - cholecalciferol (VITAMIN D3) 50 mcg (2,000 unit) tablet Take by mouth. - Fiber Cap Take 3 capsules by mouth once daily. - multivitamins(DAILY MULTIVITAMIN TAB) Take one(1) tablet daily. Problem List As Of Date 07/21/2024 Noted Resolved Dermatophytosis of foot [B35.3] 02/05/2006 03/07/2015 Hereditary and idiopathic peripheral neuropathy* 10/24/2020 Hearing Loss in Left Ear [H91.92] 03/27/2009 Post-menopausal bleeding [N95.0] 11/21/2011 03/28/2016 Thickened endometrium [R93.89] 12/05/2011 03/28/2016 Chester of foot [L84] 08/17/2013 03/28/2016 Primary osteoarthritis of right hip [M16.11] 08/09/2015 Arthritis of right hip [M16.11] 08/09/2015 10/24/2020 Hyperlipidemia LDL goal <100 [E78.5] 01/18/2016 Hypertension, essential [I10] 01/02/2020 SIOBHAN on CPAP [G47.33] 01/27/2020 Obesity, Class I, BMI 30-34.9 [E66.811] 10/25/2020 Chronic kidney insufficiency, stage 3 (moderate*08/25/2023 Impaired fasting glucose [R73.01] 04/06/2023 Venous insufficiency [I87.2] 09/02/2023 Atrial flutter (HCC) [I48.92] 06/27/2024 Heart valve disease [I38] 06/27/2024 Mild pulmonary hypertension (HCC) [I27.20] 06/27/2024 S/P total right hip arthroplasty [Z96.641] 07/01/2024 Atrial fibrillation with RVR (HCC) [I48.91] 07/02/2024 07/06/2024 Other specified postprocedural states [Z98.890] 07/12/2024 Encounter Status:Closed by [facility] ([id number]) 1950 F Date Time Provider Department 07/21/24 NAVDEEP ULLOA HCSIND During your visit today, we recorded the following information about you: Julia Reynoso LPN 07/21/2024 1:39 PM Signed Navdeep Ulloa MD Please advise if you are agreeable to signing and following for C services? Our Clinicians will be sending the Plan of Care to you for review and approval. They will reach out for any appropriate orders required to provide home care services for the patient. We are not able to initiate HHC services without a following provider. [facility] clinicians [facility] Thank you and we would be happy to answer any questions. JOSE Pace Victor H, MD 07/21/2024 2:26 PM Signed I can follow HH. Allergies As of Date: 07/21/2024 Noted Allergy Reaction NORCO (HYDROCODONE-ACETAMINO PHEN) 10/24/2020 14 - Other: See Comments Comments: Weird dreams. Date Reviewed: 07/20/2024 Reviewed by: Frida Bourgeois LPN - Fully Assessed Reason for Visit: Home Care [4073] Cmt: MD to follow Prescriptions as of 07/21/2024 - ascorbic acid, vitamin C, (VITAMIN C) 500 mg tablet Take 1 tablet by mouth two times a day with meals for 19 doses. - acetaminophen (TYLENOL) 500 mg tablet Take 2 tablets by mouth every 8 hours as needed for pain. - dilTIAZem CD (CARDIZEM CD, CARTIA XT) 300 mg 24 hr capsule Take 1 capsule by mouth once daily. Patient should start on July 06, 2024. - metoprolol succinate ER (TOPROL XL) 100 mg Take 1 tablet by mouth once daily. - magnesium hydroxide (MOM) 400 mg/5 mL suspension Take 30 mL by mouth once daily as needed for constipation. - pantoprazole DR (PROTONIX) 40 mg tablet Take 1 tablet by mouth daily at 6 am. - docusate sodium (COLACE) 100 mg capsule Take 1 capsule by mouth two times a day as needed for constipation. - apixaban (ELIQUIS) 5 mg tab(s) Take 1 tablet by mouth two times a day. - atorvastatin (LIPITOR) 10 mg tablet Take 1 tablet by mouth daily at bedtime. For cholesterol. - CPAP CPAP Supplies, All Necessary equipment including tubing and full mask ICD G47.33 - HAIR, SKIN AND NAILS, BIOTIN, ORAL Take 2 tablets by mouth once daily. - elderberry fruit (ELDERBERRY ORAL) Take 2 Doses by mouth once daily. - CPAP 30 day download for And please send chin strap Auto PAP @ 5-20 cm of water with humidification. Mask (per patient preference) optional chin strap (if indicated) , filters, tubing, humidifier and lifetime supplies. - TURMERIC ORAL Take by mouth once daily. With curcumin - Black Cohosh 40 mg tab (Mar Hold) Take 1 tablet by mouth. Take 1 tablet every other day - ferrous sulfate 325 mg (65 mg iron) tablet Take 650 mg by mouth daily with breakfast. - cholecalciferol (VITAMIN D3) 50 mcg (2,000 unit) tablet Take by mouth. - Fiber Cap Take 3 capsules by mouth once daily. - multivitamins(DAILY MULTIVITAMIN TAB) Take one(1) tablet daily. Problem List As Of Date 07/21/2024 Noted Resolved Dermatophytosis of foot [B35.3] 02/05/2006 03/07/2015 Hereditary and idiopathic peripheral neuropathy* 10/24/2020 Hearing Loss in Left Ear [H91.92] 03/27/2009 Post-menopausal bleeding [N95.0] 11/21/2011 03/28/2016 Thickened endometrium [R93.89] 12/05/2011 03/28/2016 Chester of foot [L84] 08/17/2013 03/28/2016 Primary osteoarthritis of right hip [M16.11] 08/09/2015 Arthritis of right hip [M16.11] 08/09/2015 10/24/2020 Hyperlipidemia LDL goal <100 [E78.5] 01/18/2016 Hypertension, essential [I10] 01/02/2020 SIOBHAN on CPAP [G47.33] 01/27/2020 Obesity, Class I, BMI 30-34.9 [E66.811] 10/25/2020 Chronic kidney insufficiency, stage 3 (moderate*08/25/2023 Impaired fasting glucose [R73.01] 04/06/2023 Venous insufficiency [I87.2] 09/02/2023 Atrial flutter (HCC) [I48.92] 06/27/2024 Heart valve disease [I38] 06/27/2024 Mild pulmonary hypertension (HCC) [I27.20] 06/27/2024 S/P total right hip arthroplasty [Z96.641] 07/01/2024 Atrial fibrillation with RVR (HCC) [I48.91] 07/02/2024 07/06/2024 Other specified postprocedural states [Z98.890] 07/12/2024 Encounter Status:Closed by JULIA REYNOSO on 07/21/24 Normal [facility] Carbon dioxide, total [Moles /volume] in Central venous bloodOrdered By: New Bear on 07-21-2024 CO2 [Moles/Vol] 26.8 mmol/L 21.0-32.0 [facility] Chloride assayOrdered By: Jake Bear on 07-21-2024 Chloride [Moles/Vol] 98 mmol/L 98-108 [facility] Eosinophil percentageOrdered By: New Bear on 07-21-2024 Eosinophils/100 WBC (Bld) 3.6 % 0-5 [facility] Erythrocyte distribution wid th ratioOrdered By: New Bear on 07-21-2024 Erythrocyte distribution width (RBC) [Ratio] 13.2 % 11.6-14.6 [facility] Erythrocyte distribution wid th standard deviationOrdered By: New Bear 07-21-2024 Erythrocyte distribution width (RBC) [Ratio] 43.5 fl 35.1-43.9 [facility] Glomerular filtration rate ( GFR) estimation/1.73 sq m using serum, plasma, or whole bOrdered By: New Bear 07-21-2024 GFR/1.73 sq M.predicted among non-blacks MDRD (S/P/Bld) [Vol rate/Area] 60 mL/min/{1.73_m2} >60 [facility] Comment on above: mL/min/1.73m2 CKD-EP I Creatinine Equation (2020) Hematocrit Auto (Bld) [Volum e fraction]Ordered By: New Bear on 07-21-2024 Hematocrit (Bld) [Volume fraction] 31.3 % Low 37-47 [facility] Hemoglobin measurementOrdere d By: New Bear 07-21-2024 Hemoglobin (Bld) [Mass/Vol] 10.2 g/dL Low 12.0-15.0 [facility] Immature granulocytes/100 WB C Auto (Bld)Ordered By: New Bear on 07-21-2024 Immature granulocytes/100 WBC (Bld) 0.400 % 0.0-0.9 [facility] Comment on above: IG% - Immature Granu locytes (promyelocytes, myelocytes and metamyelocytes) > 1% indicates that a LEFT SHIFT is Present. MCV (mean corpuscular volume ) determinationOrdered By: New Bear on 07-21-2024 MCV (RBC) [Entitic vol] 91.0 fL 81-99 [facility] Mean corpuscular hemoglobin (MCH) determinationOrdered By: New Bear on 07-21-2024 MCH (RBC) [Entitic mass] 29.7 pg 27.0-32.0 [facility] Mean corpuscular hemoglobin concentration (MCHC) determinationOrdered By: New Bear on 07-21-2024 MCHC (RBC) [Mass/Vol] 32.6 g/dL 32-36 [facility] Mean platelet volume determi nationOrdered By: New Bear on 07-21-2024 Platelet mean volume (Bld) [Entitic vol] 10.1 fL 6.2-12.0 [facility] Monocyte percentageOrdered B y: New Bear on 07-21-2024 Monocytes/100 WBC (Bld) 8.1 % 0-10 [facility] Neutrophil percentageOrdered By: New Bear on 07-21-2024 Neutrophils/100 WBC (Bld) 64.1 % 47-70 [facility] Nucleated red blood cell per centageOrdered By: New Bear on 07-21-2024 Nucleated RBC/100 WBC (Bld) [Ratio] 0 % 0-5 [facility] Platelet countOrdered By: Jake Bear on 07-21-2024 Platelets (Bld) [#/Vol] 383 10*3/uL 150-450 [facility] Potassium measurement (mass/ volume)Ordered By: New Bear on 07-21-2024 Potassium (Unsp spec) [Mass/Vol] 3.8 mmol/L 3.3-5.1 [facility] RBC Auto (Bld) [#/Vol]Ordere d By: New Baer on 07-21-2024 RBC (Bld) [#/Vol] 3.44 10*6/uL Low 4.2-5.4 [facility] Serum creatinine measurement (mass/volume)Ordered By: New Bear on 07-21-2024 Creatinine [Mass/Vol] 0.99 mg/dL 0.70-1.20 [facility] Serum glucose measurement (m ass/volume)Ordered By: New Chema on 07-21-2024 Glucose [Mass/Vol] 107 mg/dL High 70-99 [facility] Serum or plasma calcium cathi urement (mass/volume)Ordered By: New Bear on 07-21-2024 Calcium [Mass/Vol] 9.8 mg/dL 7.6-11.0 [facility] Serum or plasma urea nitroge n measurement (mass/volume)Ordered By: New Bear on 07-21-2024 Urea nitrogen [Mass/Vol] 17 mg/dL 4-19 [facility] Sodium levelOrdered By: New Bear 07-21-2024 Sodium [Moles/Vol] 136 mmol/L 133-145 [facility] White blood cell (WBC) count Ordered By: New Bear on 07-21-2024 WBC (Bld) [#/Vol] 7.7 10*3/uL 4.4-11.0 [facility] CNOVon 07-20-2024 CNOV Office Visit (CHERIE ) AZALEA MOTT ([id number]) 1950 F Date Time Provider Department 07/20/24 2:30 PM JAMAL GR During your visit today, we recorded the following information about you: Jamal Gr PA-C 07/20/2024 2:41 PM Signed Post-op Office Visit Azalea Mott 74 year old July 20, 2024 7:42 AM Surgery Date: 06/30/2024 History: Azalea Mott Is now 3 weeks out from right 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 Post-operative course has been without complication. Patient was admitted to TCU for aftercare. Patient had subsequent A-fib with RVR with heart rate in the 160-170 range on July 02. Currenlty on metoprolol and new Eliquis due to afib. Has cardiac follow up set up. Subjective: Patient reports mild pain. Overall is doing well. + ambulatory aid + opioid pain medication Objective: Ambulates with walker Incision well-approximated, no drainage, normal lyndsey-incisional erythema Full ROM not tested do to early post-operative period, but smaller arcs of motion fluid and comfortable Distally DP/PT palpable Distally S/S/SP/DP/T intact at baseline Distally DF/EHL/PF intact at baseline Negative lillie/calf tenderness Xrays: Well aligned total hip replacement in appropriate position with no evidence of loosening Assessment and Plan: Azalea Mott Is here for a first post-op appointment, overall doing well -continued ice, rest, and use of non-narcotic analgesia as needed -wean off ambulatory aids -discussed home exercises and therapy -WBAT on operative extremity -reinforced posterior precautions through 8 weeks: avoid extremes of flexion, internal rotation, and adduction -continue ankle pumps and dvt ppx through 4 weeks -discussed driving requirement: 4 weeks post-op, off narcotic pain medication, adequate brake time -will see back at 6 week appointment for clinical exam -discussed red flag symptoms of acutely increasing pain, new erythema, new swelling, drainage, shortness of breath Jamal Gr PA-C Orthopaedic Surgery Referring Provider: ELIGIO GIBBONS [[id number]] Allergies As of Date: 07/20/2024 Noted Allergy Reaction NORCO (HYDROCODONE-ACETAMINO PHEN) 10/24/2020 14 - Other: See Comments Comments: Weird dreams. Date Reviewed: 07/20/2024 Reviewed by: Frida Bourgeois LPN - Fully Assessed Reason for Visit: Established Patient [175] Hip Replacement [324] Follow Up [171] Pain [78] Primary Visit Diagnosis:Status post right hip replacement [Z96.641] Order(s):XR HIP GENERAL 3V PELV/AP/LAT RIGHT [4282320] Order #: [id number] FUTURE CONSULT TO [facility] [4406226] Order #: [id number]: 1 CONSULT TO PHYSICAL THERAPY [9032] Order #: [id number]: 1 FUTURE Prescriptions as of 07/20/2024 - ascorbic acid, vitamin C, (VITAMIN C) 500 mg tablet Take 1 tablet by mouth two times a day with meals for 19 doses. - acetaminophen (TYLENOL) 500 mg tablet Take 2 tablets by mouth every 8 hours as needed for pain. - dilTIAZem CD (CARDIZEM CD, CARTIA XT) 300 mg 24 hr capsule Take 1 capsule by mouth once daily. Patient should start on July 06, 2024. - metoprolol succinate ER (TOPROL XL) 100 mg Take 1 tablet by mouth once daily. - magnesium hydroxide (MOM) 400 mg/5 mL suspension Take 30 mL by mouth once daily as needed for constipation. - pantoprazole DR (PROTONIX) 40 mg tablet Take 1 tablet by mouth daily at 6 am. - docusate sodium (COLACE) 100 mg capsule Take 1 capsule by mouth two times a day as needed for constipation. - apixaban (ELIQUIS) 5 mg tab(s) Take 1 tablet by mouth two times a day. - atorvastatin (LIPITOR) 10 mg tablet Take 1 tablet by mouth daily at bedtime. For cholesterol. - CPAP CPAP Supplies, All Necessary equipment including tubing and full mask ICD G47.33 - HAIR, SKIN AND NAILS, BIOTIN, ORAL Take 2 tablets by mouth once daily. - elderberry fruit (ELDERBERRY ORAL) Take 2 Doses by mouth once daily. - CPAP 30 day download for And please send chin strap Auto PAP @ 5-20 cm of water with humidification. Mask (per patient preference) optional chin strap (if indicated) , filters, tubing, humidifier and lifetime supplies. - TURMERIC ORAL Take by mouth once daily. With curcumin - Black Cohosh 40 mg tab (Mar Hold) Take 1 tablet by mouth. Take 1 tablet every other day - ferrous sulfate 325 mg (65 mg iron) tablet Take 650 mg by mouth daily with breakfast. - cholecalciferol (VITAMIN D3) 50 mcg (2,000 unit) tablet Take by mouth. - Fiber Cap Take 3 capsules by mouth once daily. - multivitamins(DAILY MULTIVITAMIN TAB) Take one(1) tablet daily. Problem List As Of Date 07/20/2024 Noted Resolved Dermatophytosis of foot [B35.3] 02/05/2006 03/07/2015 Hereditary and idiopathic peripheral neuropathy* 10/24/2020 Hearing Loss in Left Ear [H91.92] 03/27/2009 Post-menopausal bleeding [N95.0] 11/21/2011 (more content not included)... Normal [facility] CNPNon 07-20-2024 CNPN Telephone (HCSIND) AZALEA MOTT ([id number]) 1950 F Date Time Provider Department 07/20/24 JAMAL GR HCSIND During your visit today, we recorded the following information about you: [place] Perez LPN 07/20/2024 5:09 PM Signed Jamal Gr PA-C Thank you for the referral for Azalea to receive home care services through [facility]. Is Azalea still inpatient at [facility]? Typically the housing case manager at the facility sets up home care services as part of the discharge plan. If she is currently inpatient at the rehab we are unable to accept a home care order from an ambulatory provider. Also, per CMS guidelines your office note needs to include a discussion of C with the following: - why is HHC needed - why is the patient homebound - what is the diagnosis that [facility] is seeing the patient for. Thank you, JOSE Neves Rebecca, LPN 07/21/2024 11:55 AM Signed Jamal Gr PA-C Hello I spoke with Veronika at [facility]. Per Veronika patient is still admitted and they plan to discharge patient home tomorrow. Veronika is to send us orders for PT and OT for [facility] services. I will go ahead and cancel the referral sent from your office and await a referral to be sent from [facility] Thank you Keyonna Collins LPN Allergies As of Date: 07/20/2024 Noted Allergy Reaction NORCO (HYDROCODONE-ACETAMINO PHEN) 10/24/2020 14 - Other: See Comments Comments: Weird dreams. Date Reviewed: 07/20/2024 Reviewed by: Frida Bourgeois LPN - Fully Assessed Reason for Visit: Home Care [4073] Prescriptions as of 07/21/2024 - ascorbic acid, vitamin C, (VITAMIN C) 500 mg tablet Take 1 tablet by mouth two times a day with meals for 19 doses. - acetaminophen (TYLENOL) 500 mg tablet Take 2 tablets by mouth every 8 hours as needed for pain. - dilTIAZem CD (CARDIZEM CD, CARTIA XT) 300 mg 24 hr capsule Take 1 capsule by mouth once daily. Patient should start on July 06, 2024. - metoprolol succinate ER (TOPROL XL) 100 mg Take 1 tablet by mouth once daily. - magnesium hydroxide (MOM) 400 mg/5 mL suspension Take 30 mL by mouth once daily as needed for constipation. - pantoprazole DR (PROTONIX) 40 mg tablet Take 1 tablet by mouth daily at 6 am. - docusate sodium (COLACE) 100 mg capsule Take 1 capsule by mouth two times a day as needed for constipation. - apixaban (ELIQUIS) 5 mg tab(s) Take 1 tablet by mouth two times a day. - atorvastatin (LIPITOR) 10 mg tablet Take 1 tablet by mouth daily at bedtime. For cholesterol. - CPAP CPAP Supplies, All Necessary equipment including tubing and full mask ICD G47.33 - HAIR, SKIN AND NAILS, BIOTIN, ORAL Take 2 tablets by mouth once daily. - elderberry fruit (ELDERBERRY ORAL) Take 2 Doses by mouth once daily. - CPAP 30 day download for And please send chin strap Auto PAP @ 5-20 cm of water with humidification. Mask (per patient preference) optional chin strap (if indicated) , filters, tubing, humidifier and lifetime supplies. - TURMERIC ORAL Take by mouth once daily. With curcumin - Black Cohosh 40 mg tab (Mar Hold) Take 1 tablet by mouth. Take 1 tablet every other day - ferrous sulfate 325 mg (65 mg iron) tablet Take 650 mg by mouth daily with breakfast. - cholecalciferol (VITAMIN D3) 50 mcg (2,000 unit) tablet Take by mouth. - Fiber Cap Take 3 capsules by mouth once daily. - multivitamins(DAILY MULTIVITAMIN TAB) Take one(1) tablet daily. Problem List As Of Date 07/20/2024 Noted Resolved Dermatophytosis of foot [B35.3] 02/05/2006 03/07/2015 Hereditary and idiopathic peripheral neuropathy* 10/24/2020 Hearing Loss in Left Ear [H91.92] 03/27/2009 Post-menopausal bleeding [N95.0] 11/21/2011 03/28/2016 Thickened endometrium [R93.89] 12/05/2011 03/28/2016 Chester of foot [L84] 08/17/2013 03/28/2016 Primary osteoarthritis of right hip [M16.11] 08/09/2015 Arthritis of right hip [M16.11] 08/09/2015 10/24/2020 Hyperlipidemia LDL goal <100 [E78.5] 01/18/2016 Hypertension, essential [I10] 01/02/2020 SIOBHAN on CPAP [G47.33] 01/27/2020 Obesity, Class I, BMI 30-34.9 [E66.811] 10/25/2020 Chronic kidney insufficiency, stage 3 (moderate*08/25/2023 Impaired fasting glucose [R73.01] 04/06/2023 Venous insufficiency [I87.2] 09/02/2023 Atrial flutter (HCC) [I48.92] 06/27/2024 Heart valve disease [I38] 06/27/2024 Mild pulmonary hypertension (HCC) [I27.20] 06/27/2024 S/P total right hip arthroplasty [Z96.641] 07/01/2024 Atrial fibrillation with RVR (HCC) [I48.91] 07/02/2024 07/06/2024 Other specified postprocedural states [Z98.890] 07/12/2024 Encounter Status:Closed by FLORIDA PEREZ on 07/20/24 [facility] XR HIP 3V PELV+ AP/LAT RTon 07-20-2024 XR HIP 3V PELV+ AP/LAT RT * * *Final Report* * * DATE OF EXAM: Jul 20 2024 1:59PM ОЛЕГ 5352 - XR HIP 3V PELV+ AP/LAT RT / PROCEDURE REASON: Z96.641-Status post right hip replacement * * * * Physician Interpretation * * * * Pelvis and right hip HISTORY: Indication: Status post right hip replacement TECHNIQUE: Images: XR HIP 3V PELV+ AP/LAT RT Comparison: 06/30/2024. RESULT: Findings: Pelvis: No fractures or dislocations are seen. Moderate narrowing of the LEFT hip joint Right hip: No fractures or dislocations are seen. The components of the RIGHT total hip arthroplasty appear stable.. There is no evidence of loosening of the components. IMPRESSION: Findings as discussed under Results portion of report. Study Director: PSCB Transcribe Date/Time: Jul 20 2024 3:09P Dictated by : DELON ARRIAGA DO This examination was interpreted and the report reviewed and electronically signed by: DELON ARRIAGA DO on Jul 20 2024 3:10PM EST [id number] [facility] XR Pelvis and Hip - right AP and Lateral frogon 07-20-2024 IMPRESSION: Findings as discussed under Results portion of report. Study Director: PSCB Transcribe Date/Time: Jul 20 2024 3:09P Dictated by : DELON ARRIAGA DO This examination was interpreted and the report reviewed and electronically signed by: DELON ARRIAGA DO on Jul 20 2024 3:10PM EST [facility] * * *Final Report* * * DATE OF EXAM: Jul 20 2024 1:59PM ОЛЕГ 5352 - XR HIP 3V PELV+ AP/LAT RT / PROCEDURE REASON: Z96.641-Status post right hip replacement * * * * Physician Interpretation * * * * Pelvis and right hip HISTORY: Indication: Status post right hip replacement TECHNIQUE: Images: XR HIP 3V PELV+ AP/LAT RT Comparison: 06/30/2024. RESULT: Findings: Pelvis: No fractures or dislocations are seen. Moderate narrowing of the LEFT hip joint Right hip: No fractures or dislocations are seen. The components of the RIGHT total hip arthroplasty appear stable.. There is no evidence of loosening of the components. [facility] Provider, Yasmeen Toscano - 07/20/2024 * * *Final Report* * * DATE OF EXAM: Jul 20 2024 1:59PM ОЛЕГ 5352 - XR HIP 3V PELV+ AP/LAT RT / PROCEDURE REASON: Z96.641-Status post right hip replacement * * * * Physician Interpretation * * * * Pelvis and right hip HISTORY: Indication: Status post right hip replacement TECHNIQUE: Images: XR HIP 3V PELV+ AP/LAT RT Comparison: 06/30/2024. RESULT: Findings: Pelvis: No fractures or dislocations are seen. Moderate narrowing of the LEFT hip joint Right hip: No fractures or dislocations are seen. The components of the RIGHT total hip arthroplasty appear stable.. There is no evidence of loosening of the components. IMPRESSION IMPRESSION: Findings as discussed under Results portion of report. Study Director: RACHELLE Transcribe Date/Time: Jul 20 2024 3:09P Dictated by : DELON ARRIAGA DO This examination was interpreted and the report reviewed and electronically signed by: DELON ARRIAGA DO on Jul 20 2024 3:10PM EST [facility] Radiology Study observation (narrative) [facility] XR Pelvis and Hip - right AP and Lateral frogOrdered By: Ccf Provider on 07-20-2024 [facility] Basic Metabolic Profile (BMP )on 07-14-2024 BUN/CRE 15.9 RATIO Normal 10-20 [facility] Comment on above: Performed By: #### L 100.0100, L500.2500 ####[facility] [id number] [place], [address] Calcium [Mass/Vol] 9.4 mg/dL Normal 7.6-11.0 [facility] Comment on above: Performed By: #### L 100.0100, L500.2500 ####[facility] [address] [place], [address] Chloride [Moles/Vol] 103 mmol/L Normal 98-108 [facility] Comment on above: Performed By: #### L 100.0100, L500.2500 ####[facility] [address] [place], [address] CO2 [Moles/Vol] 26.3 mmol/L Normal 21.0-32.0 [facility] Comment on above: Performed By: #### L 100.0100, L500.2500 ####[facility] [address] [place], [address] Creatinine [Mass/Vol] 0.93 mg/dL Normal 0.70-1.20 [facility] Comment on above: Performed By: #### L 100.0100, L500.2500 ####[facility] [address] [place], [address] ECRCL 65.95 ml/min Normal 50-250 [facility] Comment on above: Performed By: #### L 100.0100, L500.2500 ####[facility] [address] [place], [address] GAP 10 Normal 5-15 [facility] Comment on above: Performed By: #### L 100.0100, L500.2500 ####[facility] [address] [place], [address] GFR/1.73 sq M.predicted among non-blacks MDRD (S/P/Bld) [Vol rate/Area] 65 mL/min/{1.73_m2} Normal >60 [facility] Comment on above: Result Comment: mL/m in/1.73m2 CKD-EPI Creatinine Equation (2020) Performed By: #### L 100.0100, L500.2500 ####[facility] [address] [place], [address] Glucose [Mass/Vol] 124 mg/dL High 70-99 [facility] Comment on above: Performed By: #### L 100.0100, L500.2500 ####[facility] [address] [place], [address] Potassium [Moles/Vol] 4.1 mmol/L Normal 3.3-5.1 [facility] Comment on above: Performed By: #### L 100.0100, L500.2500 ####[facility] [address] [place], [address] Sodium [Moles/Vol] 139 mmol/L Normal 133-145 [facility] Comment on above: Performed By: #### L 100.0100, L500.2500 ####[facility] [address] [place], [address] Urea nitrogen [Mass/Vol] 15 mg/dL Normal 4-19 [facility] Comment on above: Performed By: #### L 100.0100, L500.2500 ####[facility] [address] [place], [address] CBC W/Diff, Automatedon 05-0 8-2025 Absolute Lymph 1.60 X10 3/uL Normal 0.83-4.51 [facility] Comment on above: Performed By: #### L 100.0100, L500.2500 ####[facility] [address] [place], [address] Absolute Neut 6.5 X10 3/uL Normal 2.0-7.7 [facility] Comment on above: Performed By: #### L 100.0100, L500.2500 ####[facility] [address] [place], [address] Basophils/100 WBC (Bld) 0.4 % Normal 0-1 [facility] Comment on above: Performed By: #### L 100.0100, L500.2500 ####[facility] [address] [place], [address] Eosinophils/100 WBC (Bld) 2.6 % Normal 0-5 [facility] Comment on above: Performed By: #### L 100.0100, L500.2500 ####[facility] [address] [place], [address] Erythrocyte distribution width (RBC) [Ratio] 13.2 % Normal 11.6-14.6 [facility] Comment on above: Performed By: #### L 100.0100, L500.2500 ####[facility] [address] [place], [address] Hematocrit (Bld) [Volume fraction] 29.1 % Low 37-47 [facility] Comment on above: Performed By: #### L 100.0100, L500.2500 ####[facility] [address] [place], [address] Hemoglobin (Bld) [Mass/Vol] 9.6 g/dL Low 12.0-15.0 [facility] Comment on above: Performed By: #### L 100.0100, L500.2500 ####[facility] [address] [place], [address] IG% 0.900 Normal 0.0-0.9 [facility] Comment on above: Result Comment: IG% - Immature Granulocytes (promyelocytes, myelocytes and metamyelocytes) > 1% indicates that a LEFT SHIFT is Present. Performed By: #### L 100.0100, L500.2500 ####[facility] [address] [place], [address] Lymphocytes/100 WBC (Bld) 17.9 % Low 19-41 [facility] Comment on above: Performed By: #### L 100.0100, L500.2500 ####[facility] [address] [place], [address] MCH (RBC) [Entitic mass] 29.4 pg Normal 27.0-32.0 [facility] Comment on above: Performed By: #### L 100.0100, L500.2500 ####[facility] [address] [place], [address] MCHC (RBC) [Mass/Vol] 33.0 g/dL Normal 32-36 [facility] Comment on above: Performed By: #### L 100.0100, L500.2500 ####[facility] [address] [place], [address] MCV (RBC) [Entitic vol] 89.3 fL Normal 81-99 [facility] Comment on above: Performed By: #### L 100.0100, L500.2500 ####[facility] [address] [place], [address] Monocytes/100 WBC (Bld) 5.6 % Normal 0-10 [facility] Comment on above: Performed By: #### L 100.0100, L500.2500 ####[facility] [address] [place], [address] Neutrophils/100 WBC (Bld) 72.6 % High 47-70 [facility] Comment on above: Performed By: #### L 100.0100, L500.2500 ####[facility] [address] [place], [address] Nucleated RBC (Bld) [#/Vol] 0 10*3/uL Normal 0-5 [facility] Comment on above: Performed By: #### L 100.0100, L500.2500 ####[facility] [address] [place], [address] Platelet mean volume (Bld) [Entitic vol] 9.1 fL Normal 6.2-12.0 [facility] Comment on above: Performed By: #### L 100.0100, L500.2500 ####[facility] [address] [place], [address] Platelets (Bld) [#/Vol] 380 10*3/uL Normal 150-450 [facility] Comment on above: Performed By: #### L 100.0100, L500.2500 ####[facility] [address] [place], [address] RBC (Bld) [#/Vol] 3.26 10*6/uL Low 4.2-5.4 [facility] Comment on above: Performed By: #### L 100.0100, L500.2500 ####[facility] [address] [place], [address] RDW SD 42.6 fl Normal 35.1-43.9 [facility] Comment on above: Performed By: #### L 100.0100, L500.2500 ####[facility] [address] [place], [address] WBC (Bld) [#/Vol] 9.0 10*3/uL Normal 4.4-11.0 [facility] Comment on above: Performed By: #### L 100.0100, L500.2500 ####[facility] [address] [place], [address] CNPCande 07-14-2024 [facility] Telephone (BRIJESH) AZALEA MOTT ([id number]) 1950 F Date Time Provider Department 07/14/24 TATY HIDALGO During your visit today, we recorded the following information about you: Yamilka Celis 07/14/2024 9:13 AM Signed Bianca, from [facility], calling to report the patient is admitted and has a heart rate has been between 130-140's. Bianca asked for a sooner follow up visit with cardiology, nothing sooner, patient on wait list. Please call to advise if any medication changes are need or other orders: [phone] Ask for Bianca or Alexandrea Patel, RN 07/15/2024 9:02 AM Signed Pt is admitted to SNF in [place] transitional care unit. Dr. Garg is rounding on pt and adjusted metoprolol to 100 mg BID. Pt will be transitioning to [place] cardiology. Allergies As of Date: 07/14/2024 Noted Allergy Reaction NORCO (HYDROCODONE-ACETAMINO PHEN) 10/24/2020 14 - Other: See Comments Comments: Weird dreams. Date Reviewed: 07/06/2024 Reviewed by: Pennie Webb RN - Fully Assessed Reason for Visit: Patient Update [1234] Prescriptions as of 07/15/2024 - ascorbic acid, vitamin C, (VITAMIN C) 500 mg tablet Take 1 tablet by mouth two times a day with meals for 19 doses. - acetaminophen (TYLENOL) 500 mg tablet Take 2 tablets by mouth every 8 hours as needed for pain. - cefADROxil (DURICEF) 500 mg capsule Take 1 capsule by mouth every 12 hours for 14 days. - dilTIAZem CD (CARDIZEM CD, CARTIA XT) 300 mg 24 hr capsule Take 1 capsule by mouth once daily. Patient should start on July 06, 2024. - metoprolol succinate ER (TOPROL XL) 100 mg Take 1 tablet by mouth once daily. - magnesium hydroxide (MOM) 400 mg/5 mL suspension Take 30 mL by mouth once daily as needed for constipation. - pantoprazole DR (PROTONIX) 40 mg tablet Take 1 tablet by mouth daily at 6 am. - docusate sodium (COLACE) 100 mg capsule Take 1 capsule by mouth two times a day as needed for constipation. - polyethylene glycol 3350 (MIRALAX) 17 gram/dose powder Take 17 g by mouth once daily as needed for constipation for up to 10 days. Dissolve dose in 4 - 8 ounces of liquid and take as directed. - apixaban (ELIQUIS) 5 mg tab(s) Take 1 tablet by mouth two times a day. - atorvastatin (LIPITOR) 10 mg tablet Take 1 tablet by mouth daily at bedtime. For cholesterol. - CPAP CPAP Supplies, All Necessary equipment including tubing and full mask ICD G47.33 - HAIR, SKIN AND NAILS, BIOTIN, ORAL Take 2 tablets by mouth once daily. - elderberry fruit (ELDERBERRY ORAL) Take 2 Doses by mouth once daily. - CPAP 30 day download for And please send chin strap Auto PAP @ 5-20 cm of water with humidification. Mask (per patient preference) optional chin strap (if indicated) , filters, tubing, humidifier and lifetime supplies. - TURMERIC ORAL Take by mouth once daily. With curcumin - Black Cohosh 40 mg tab (Mar Hold) Take 1 tablet by mouth. Take 1 tablet every other day - ferrous sulfate 325 mg (65 mg iron) tablet Take 650 mg by mouth daily with breakfast. - cholecalciferol (VITAMIN D3) 50 mcg (2,000 unit) tablet Take by mouth. - Fiber Cap Take 3 capsules by mouth once daily. - multivitamins(DAILY MULTIVITAMIN TAB) Take one(1) tablet daily. Problem List As Of Date 07/14/2024 Noted Resolved Dermatophytosis of foot [B35.3] 02/05/2006 03/07/2015 Hereditary and idiopathic peripheral neuropathy* 10/24/2020 Hearing Loss in Left Ear [H91.92] 03/27/2009 Post-menopausal bleeding [N95.0] 11/21/2011 03/28/2016 Thickened endometrium [R93.89] 12/05/2011 03/28/2016 Chester of foot [L84] 08/17/2013 03/28/2016 Primary osteoarthritis of right hip [M16.11] 08/09/2015 Arthritis of right hip [M16.11] 08/09/2015 10/24/2020 Hyperlipidemia LDL goal <100 [E78.5] 01/18/2016 Hypertension, essential [I10] 01/02/2020 SIOBHAN on CPAP [G47.33] 01/27/2020 Obesity, Class I, BMI 30-34.9 [E66.811] 10/25/2020 Chronic kidney insufficiency, stage 3 (moderate*08/25/2023 Impaired fasting glucose [R73.01] 04/06/2023 Venous insufficiency [I87.2] 09/02/2023 Atrial flutter (HCC) [I48.92] 06/27/2024 Heart valve disease [I38] 06/27/2024 Mild pulmonary hypertension (HCC) [I27.20] 06/27/2024 S/P total right hip arthroplasty [Z96.641] 07/01/2024 Atrial fibrillation with RVR (HCC) [I48.91] 07/02/2024 07/06/2024 Other specified postprocedural states [Z98.890] 07/12/2024 Encounter Status:Closed by ALEXANDREA RAMEY on 07/15/24 [facility] Telephone (ORMDNA) MOTTAZALEA ([id number]) 1950 F Date Time Provider Department 07/14/24 ELIGIO GIBBONS During your visit today, we recorded the following information about you: Sandro Escobar RN 07/14/2024 8:27 AM Signed Kacy from [facility] [phone] Pt has elevated HR 130s. She was rescheduled d/t this to Jamal's schedule. Allergies As of Date: 07/14/2024 Noted Allergy Reaction NORCO (HYDROCODONE-ACETAMINO PHEN) 10/24/2020 14 - Other: See Comments Comments: Weird dreams. Date Reviewed: 07/06/2024 Reviewed by: Pennie Webb RN - Fully Assessed Prescriptions as of 07/14/2024 - ascorbic acid, vitamin C, (VITAMIN C) 500 mg tablet Take 1 tablet by mouth two times a day with meals for 19 doses. - acetaminophen (TYLENOL) 500 mg tablet Take 2 tablets by mouth every 8 hours as needed for pain. - cefADROxil (DURICEF) 500 mg capsule Take 1 capsule by mouth every 12 hours for 14 days. - dilTIAZem CD (CARDIZEM CD, CARTIA XT) 300 mg 24 hr capsule Take 1 capsule by mouth once daily. Patient should start on July 06, 2024. - metoprolol succinate ER (TOPROL XL) 100 mg Take 1 tablet by mouth once daily. - magnesium hydroxide (MOM) 400 mg/5 mL suspension Take 30 mL by mouth once daily as needed for constipation. - pantoprazole DR (PROTONIX) 40 mg tablet Take 1 tablet by mouth daily at 6 am. - docusate sodium (COLACE) 100 mg capsule Take 1 capsule by mouth two times a day as needed for constipation. - polyethylene glycol 3350 (MIRALAX) 17 gram/dose powder Take 17 g by mouth once daily as needed for constipation for up to 10 days. Dissolve dose in 4 - 8 ounces of liquid and take as directed. - apixaban (ELIQUIS) 5 mg tab(s) Take 1 tablet by mouth two times a day. - atorvastatin (LIPITOR) 10 mg tablet Take 1 tablet by mouth daily at bedtime. For cholesterol. - CPAP CPAP Supplies, All Necessary equipment including tubing and full mask ICD G47.33 - HAIR, SKIN AND NAILS, BIOTIN, ORAL Take 2 tablets by mouth once daily. - elderberry fruit (ELDERBERRY ORAL) Take 2 Doses by mouth once daily. - CPAP 30 day download for And please send chin strap Auto PAP @ 5-20 cm of water with humidification. Mask (per patient preference) optional chin strap (if indicated) , filters, tubing, humidifier and lifetime supplies. - TURMERIC ORAL Take by mouth once daily. With curcumin - Black Cohosh 40 mg tab (Mar Hold) Take 1 tablet by mouth. Take 1 tablet every other day - ferrous sulfate 325 mg (65 mg iron) tablet Take 650 mg by mouth daily with breakfast. - cholecalciferol (VITAMIN D3) 50 mcg (2,000 unit) tablet Take by mouth. - Fiber Cap Take 3 capsules by mouth once daily. - multivitamins(DAILY MULTIVITAMIN TAB) Take one(1) tablet daily. Problem List As Of Date 07/14/2024 Noted Resolved Dermatophytosis of foot [B35.3] 02/05/2006 03/07/2015 Hereditary and idiopathic peripheral neuropathy* 10/24/2020 Hearing Loss in Left Ear [H91.92] 03/27/2009 Post-menopausal bleeding [N95.0] 11/21/2011 03/28/2016 Thickened endometrium [R93.89] 12/05/2011 03/28/2016 Chester of foot [L84] 08/17/2013 03/28/2016 Primary osteoarthritis of right hip [M16.11] 08/09/2015 Arthritis of right hip [M16.11] 08/09/2015 10/24/2020 Hyperlipidemia LDL goal <100 [E78.5] 01/18/2016 Hypertension, essential [I10] 01/02/2020 SIOBHAN on CPAP [G47.33] 01/27/2020 Obesity, Class I, BMI 30-34.9 [E66.811] 10/25/2020 Chronic kidney insufficiency, stage 3 (moderate*08/25/2023 Impaired fasting glucose [R73.01] 04/06/2023 Venous insufficiency [I87.2] 09/02/2023 Atrial flutter (HCC) [I48.92] 06/27/2024 Heart valve disease [I38] 06/27/2024 Mild pulmonary hypertension (HCC) [I27.20] 06/27/2024 S/P total right hip arthroplasty [Z96.641] 07/01/2024 Atrial fibrillation with RVR (HCC) [I48.91] 07/02/2024 07/06/2024 Other specified postprocedural states [Z98.890] 07/12/2024 Encounter Status:Closed by SANDRO ESCOBAR on 07/14/24 Normal [facility] Calculated very low density lipoprotein (VLDL) cholesterol measurementOrdered By: New Bear on 07-09-2024 Calculated very low density lipoprotein (VLDL) cholesterol measurement 16 mg/dL 5-40 [facility] LDL calc ser/plasOrdered By: New Bear on 07-09-2024 Cholesterol in LDL [Mass/Vol] 49 mg/dL [facility] Comment on above: Syaobzrjul=061-510 m g/dL & Higher Vxpo=551 mg/dL or greater Lipid Profileon 07-09-2024 CHOL:HDL 3.43 Normal [facility] Comment on above: Performed By: #### L 500.4100, L506.1001 #### [facility] [address] [place], [address] Cholesterol [Mass/Vol] 93 mg/dL Normal <=200 [facility] Comment on above: Result Comment: Chol esterol level, Desirable <200 mg/dL Borderline high cholesterol 200-239 mg/dL High cholesterol >=240 mg/dL Recommendations of the NCEP Adult Treatment Panel for the following risk-cutoff thresholds for the [place] population. Performed By: #### L 500.4100, L506.1001 #### [facility] [address] [place], [address] Cholesterol in HDL [Mass/Vol] 27 mg/dL Low [facility] Comment on above: Result Comment: Noemi lathamal Cholesterol Education Program (NCEP) guidelines: <40 mg/dL: Low HDL-cholesterol (major risk factor for CHD) >= 60 mg/dL: High HDL-cholesterol (negative risk factor for CHD) HDL-cholesterol is affected by a number of factors, e.g. smoking, exercise, hormones, sex and age. Performed By: #### L 500.4100, L506.1001 #### [facility] [address] [place], [address] Cholesterol in LDL [Mass/Vol] 49 mg/dL Normal [facility] Comment on above: Result Comment: Bord ybgcwx=101-857 mg/dL Higher Gwbx=312 mg/dL or greater Performed By: #### L 500.4100, L506.1001 #### [facility] [address] [place], [address] Cholesterol in VLDL [Mass/Vol] 16 mg/dL Normal 5-40 [facility] Comment on above: Performed By: #### L 500.4100, L506.1001 #### [facility] [address] [place], [address] Triglyceride [Mass/Vol] 82 mg/dL Normal [facility] Comment on above: Result Comment: The drugs N-Acetylcysteine and Metamizole may falsely depress this assay. Normal range: <150 mg/dL Borderline High: 150-199 mg/dL High: 200-499 mg/dL Very High: >500 mg/dL Performed By: #### L 500.4100, L506.1001 #### [facility] [address] [place], [address] Screening total cholesterol/ high density lipoprotein (HDL) cholesterol ratioOrdered By: New Bear on 07-09-2024 Cholesterol.total/Choles terol in HDL [Mass ratio] 3.43 {ratio} [facility] Serum or plasma cholesterol in HDL measurement (mass/volume)Ordered By: New Bear on 07-09-2024 Cholesterol in HDL [Mass/Vol] 27 mg/dL Low >40 [facility] Comment on above: National Cholesterol Education Program (NCEP) guidelines:<40 mg/dL: Low HDL-cholesterol (major risk factor for CHD)>= 60 mg/dL: High HDL-cholesterol (negative risk factor for CHD)HDL-cholesterol is affected by a number of factors, e.g. smoking, exercise, hormones, sex and age. Serum or plasma cholesterol measurement (mass/volume)Ordered By: New Bear on 07-09-2024 Cholesterol [Mass/Vol] 93 mg/dL <201 [facility] Comment on above: Cholesterol level, D esirable <200 mg/dLBorderline high cholesterol 200-239 mg/dLHigh cholesterol >=240 mg/dLRecommendations of the NCEP Adult Treatment Panel for the following risk-cutoff thresholds for the [place] population. Triglycerides measurementOrd ered By: New Bear on 07-09-2024 Triglyceride [Mass/Vol] 82 mg/dL <199 [facility] Comment on above: The drugs N-Acetylcy steine and Metamizole may falsely depress this assay. Normal range: <150 mg/dLBorderline High: 150-199 mg/dLHigh: 200-499 mg/dLVery High: >500 mg/dL Vitamin D,25 Hydroxyon 07-09 Vitamin D 25-OH 86.9 ng/mL Normal 30-100 [facility] Comment on above: Result Comment: Kamilah min D Status Deficiency: <20 ng/mL (50nmol/L) Insufficiency: 20-30 ng/mL (50-75 nmol/L) Sufficiency: 30-100 ng/mL (75-250 nmol/L) Toxicity: >100 ng/mL (>250 nmol/L) Performed By: #### L 500.4100, L506.1001 #### [facility] [address] [place], [address] 12 Lead EKGon 07-08-2024 12 Lead EKG [facility] [address] [place] [address] 12 Lead EKG 07/08/24 0846 MR#: [id number] Acct: [id number] Name: AZALEA MOTT Rep #: [id number] : 1950 74 From: Olga Galvez MD Attending Dr: Dr. New Bear MD Status: ADM IN Ordering Dr: New Bear MD Date: 07/08/24 Location: [facility] Sex: F C Admitted: 07/06/24 Test Reason : TACHY Blood Pressure : */* mmHG Vent. Rate : 139 BPM Atrial Rate : 139 BPM P-R Int : 128 ms QRS Dur : 102 ms QT Int : 298 ms P-R-T Axes : 94 -21 22 degrees QTcB Int : 453 ms Sinus tachycardia Nonspecific ST and T wave abnormality Abnormal ECG When compared with ECG of 23-Sep-2020 23:34, Vent. rate has increased by [address] now depressed in Anterior leads T wave inversion more evident in Inferior leads T wave inversion now evident in Anterolateral leads Confirmed by OLGA GALVEZ ([id number]), video news editor KEYA SALAZAR ([id number]) on 07/08/2024 1:27:40 PM Referred By: CHEMA Confirmed By: OLGA GALVEZ 07/08/24 1327 Date Olga Galvez MD CC: Dr. New Bear MD; Dr. Navdeep Ulloa MD Signed Normal [facility] Electrocardiogram reportOrde red By: Olga Galvez on 07-08-2024 EKG study [facility] [address] [place] [address] 12 Lead EKG 07/08/24 0846 MR#: [id number] Acct: [id number] Name: AZALEA MOTT Rep #:[id number] : 1950 74 From: Olga Galvez MD Attending Dr: Dr. New Bear MD Status: ADM IN Ordering Dr: New Bear MD Date: 05/03 Location: [facility] Sex: F C Admitted: 07/06/24 Test Reason : TACHY Blood Pressure : */* mmHG Vent. Rate : 139 BPM Atrial Rate : 139 BPM P-R Int : 128 ms QRS Dur : 102 ms QT Int : 298 ms P-R-T Axes : 94 -21 22 degrees QTcB Int : 453 ms Sinus tachycardia Nonspecific ST and T wave abnormality Abnormal ECG When compared with ECG of 23-Sep-2020 23:34, Vent. rate has increased by [address] now depressed in Anterior leads T wave inversion more evident in Inferior leads T wave inversion now evident in Anterolateral leads Confirmed by OLGA GALVEZ ([id number]), video news editor KEYA SALAZAR ([id number]) on 07/08/2024 1:27:40 PM Referred By: CHEMA Confirmed By: OLGA GALVEZ 07/08/24 1327 Date _ Olga Galvez MD CC: Dr. New Bear MD; Dr. Navdeep Ulloa MD ~ Signed [facility] Work Phone: HH, Hemoglobin AND Hematocri ton 07-08-2024 Hematocrit (Bld) [Volume fraction] 30.3 % Low 37-47 [facility] Comment on above: Performed By: #### L 100.0600 #### [facility] [address] [place], [place], [address] Hemoglobin (Bld) [Mass/Vol] 10.3 g/dL Low 12.0-15.0 [facility] Comment on above: Performed By: #### L 100.0600 #### [facility] [address] [place], [place], [address] Basic Metabolic Profile (BMP )on 07-07-2024 BUN/CRE 21.0 RATIO High 10-20 [facility] Comment on above: Performed By: #### L 500.2500, L100.0100 ####[facility] [address] [place], [address] Calcium [Mass/Vol] 9.2 mg/dL Normal 7.6-11.0 [facility] Comment on above: Performed By: #### L 500.2500, L100.0100 ####[facility] [address] [place], [address] Chloride [Moles/Vol] 101 mmol/L Normal 98-108 [facility] Comment on above: Performed By: #### L 500.2500, L100.0100 ####[facility] [address] [place], [address] CO2 [Moles/Vol] 27.8 mmol/L Normal 21.0-32.0 [facility] Comment on above: Performed By: #### L 500.2500, L100.0100 ####[facility] [address] [place], [address] Creatinine [Mass/Vol] 0.97 mg/dL Normal 0.70-1.20 [facility] Comment on above: Performed By: #### L 500.2500, L100.0100 ####[facility] [address] [place], [address] ECRCL 61.92 ml/min Normal 50-250 [facility] Comment on above: Performed By: #### L 500.2500, L100.0100 ####[facility] [address] [place], [address] GAP 8 Normal 5-15 [facility] Comment on above: Performed By: #### L 500.2500, L100.0100 ####[facility] [address] [place], [address] GFR/1.73 sq M.predicted among non-blacks MDRD (S/P/Bld) [Vol rate/Area] 62 mL/min/{1.73_m2} Normal >60 [facility] Comment on above: Result Comment: mL/m in/1.73m2 CKD-EPI Creatinine Equation (2020) Performed By: #### L 500.2500, L100.0100 ####[facility] [address] [place], [address] Glucose [Mass/Vol] 112 mg/dL High 70-99 [facility] Comment on above: Performed By: #### L 500.2500, L100.0100 ####[facility] [address] [place], [address] Potassium [Moles/Vol] 4.9 mmol/L Normal 3.3-5.1 [facility] Comment on above: Performed By: #### L 500.2500, L100.0100 ####[facility] [address] [place], [address] Sodium [Moles/Vol] 137 mmol/L Normal 133-145 [facility] Comment on above: Performed By: #### L 500.2500, L100.0100 ####[facility] [address] [place], [address] Urea nitrogen [Mass/Vol] 20 mg/dL High 4-19 [facility] Comment on above: Performed By: #### L 500.2500, L100.0100 ####[facility] [address] [place], [address] CBC W/Diff, Automatedon 05-0 -2024 Absolute Lymph 1.83 X10 3/uL Normal 0.83-4.51 [facility] Comment on above: Performed By: #### L 500.2500, L100.0100 ####[facility] [address] [place], [address] Absolute Neut 6.0 X10 3/uL Normal 2.0-7.7 [facility] Comment on above: Performed By: #### L 500.2500, L100.0100 ####[facility] [address] [place], [address] Basophils/100 WBC (Bld) 0.4 % Normal 0-1 [facility] Comment on above: Performed By: #### L 500.2500, L100.0100 ####[facility] [address] [place], [address] Eosinophils/100 WBC (Bld) 4.2 % Normal 0-5 [facility] Comment on above: Performed By: #### L 500.2500, L100.0100 ####[facility] [address] [place], [address] Erythrocyte distribution width (RBC) [Ratio] 13.0 % Normal 11.6-14.6 [facility] Comment on above: Performed By: #### L 500.2500, L100.0100 ####[facility] [address] [place], [address] Hematocrit (Bld) [Volume fraction] 28.9 % Low 37-47 [facility] Comment on above: Performed By: #### L 500.2500, L100.0100 ####[facility] [address] [place], [address] Hemoglobin (Bld) [Mass/Vol] 9.7 g/dL Low 12.0-15.0 [facility] Comment on above: Performed By: #### L 500.2500, L100.0100 ####[facility] [address] [place], [address] IG% 0.800 Normal 0.0-0.9 [facility] Comment on above: Result Comment: IG% - Immature Granulocytes (promyelocytes, myelocytes and metamyelocytes) > 1% indicates that a LEFT SHIFT is Present. Performed By: #### L 500.2500, L100.0100 ####[facility] [address] [place], [address] Lymphocytes/100 WBC (Bld) 20.1 % Normal 19-41 [facility] Comment on above: Performed By: #### L 500.2500, L100.0100 ####[facility] [address] [place], [address] MCH (RBC) [Entitic mass] 30.0 pg Normal 27.0-32.0 [facility] Comment on above: Performed By: #### L 500.2500, L100.0100 ####[facility] [address] [place], [address] MCHC (RBC) [Mass/Vol] 33.6 g/dL Normal 32-36 [facility] Comment on above: Performed By: #### L 500.2500, L100.0100 ####[facility] [address] [place], [address] MCV (RBC) [Entitic vol] 89.5 fL Normal 81-99 [facility] Comment on above: Performed By: #### L 500.2500, L100.0100 ####[facility] [address] [place], [address] Monocytes/100 WBC (Bld) 8.6 % Normal 0-10 [facility] Comment on above: Performed By: #### L 500.2500, L100.0100 ####[facility] [address] [place], [address] Neutrophils/100 WBC (Bld) 65.9 % Normal 47-70 [facility] Comment on above: Performed By: #### L 500.2500, L100.0100 ####[facility] [address] [place], [address] Nucleated RBC (Bld) [#/Vol] 0 10*3/uL Normal 0-5 [facility] Comment on above: Performed By: #### L 500.2500, L100.0100 ####[facility] [address] [place], [address] Platelet mean volume (Bld) [Entitic vol] 10.2 fL Normal 6.2-12.0 [facility] Comment on above: Performed By: #### L 500.2500, L100.0100 ####[facility] [address] [place], [address] Platelets (Bld) [#/Vol] 340 10*3/uL Normal 150-450 [facility] Comment on above: Performed By: #### L 500.2500, L100.0100 ####[facility] [address] [place], [address] RBC (Bld) [#/Vol] 3.23 10*6/uL Low 4.2-5.4 [facility] Comment on above: Performed By: #### L 500.2500, L100.0100 ####[facility] [address] [place], [address] RDW SD 42.5 fl Normal 35.1-43.9 [facility] Comment on above: Performed By: #### L 500.2500, L100.0100 ####[facility] [address] [place], [address] WBC (Bld) [#/Vol] 9.1 10*3/uL Normal 4.4-11.0 [facility] Comment on above: Performed By: #### L 500.2500, L100.0100 ####[facility] [address] [place], [address] Basic metabolic 2000 panelon 07-06-2024 Anion gap [Moles/Vol] 7 mmol/L Low 8-15 [facility] Comment on above: Order Comment: Speci men Type: BLOOD SPECIMENOrdering Facility: [facility] Address: [address], [place] [address] Performed By: #### 2 4321-2 ####[facility]ORATORYCLIA [id number] [place] [address] [place] Calcium [Mass/Vol] 9.3 mg/dL Normal 8.5-10.2 [facility] Comment on above: Order Comment: Speci men Type: BLOOD SPECIMENOrdering Facility: [facility] Address: [address] [place] [address] Performed By: #### 2 4321-2 ####[facility] LABORATORYCLIA [id number] [place] [address] [place] Chloride [Moles/Vol] 101 mmol/L Normal 98-107 [facility] Comment on above: Order Comment: Speci men Type: BLOOD SPECIMENOrdering Facility: [facility] Address: [address] [place] [address] Performed By: #### 2 4321-2 ####[facility] LABORATORYCLIA [id number] [place] [address] [place] CO2 [Moles/Vol] 29 mmol/L Normal 22-30 [facility] Comment on above: Order Comment: Speci men Type: BLOOD SPECIMENOrdering Facility: [facility] Address: [address] [place] [address] Performed By: #### 2 4321-2 ####[facility]ORATORYCLIA [id number] [place] [address] [place] Creatinine [Mass/Vol] 0.93 mg/dL Normal 0.58-0.96 [facility] Comment on above: Order Comment: Speci men Type: BLOOD SPECIMENOrdering Facility: [facility] Address: [address] [place] [address] Performed By: #### 2 4321-2 ####[facility] LABORATORYCLIA [id number] [place] [address] [place] [facility] OF [place] Creatinine and Glomerular filtration rate.predicted panel (S/P/Bld) 65 mL/min/1.73m??? Normal >=60 [facility] Comment on above: Order Comment: Speci men Type: BLOOD SPECIMENOrdering Facility: [facility] Address: [address] [place] [address] Result Comment: Jessica mated Glomerular Filtration Rate (eGFR) is calculated using the 2020 CKD-EPI creatinine equation. This equation utilizes serum creatinine, sex, and age as parameters. The creatinine assay has traceable calibration to isotope dilution-mass spectrometry. Refer to KDIGO guidelines for clinical interpretation. In patients with unstable renal function, e.g. those with acute kidney injury, the eGFR may not accurately reflect actual GFR. Performed By: #### 2 4321-2 ####[facility]ATORYCLIA [id number] [place] [id number] [place] Glucose [Mass/Vol] 133 mg/dL High 74-99 [facility] Comment on above: Order Comment: David del real Type: BLOOD SPECIMENOrdering Facility: [facility] Address: [address] [place] [address] Result Comment: The [place] Diabetes Association (ADA) provides guidance for cutoff values for fasting glucose and random glucose. The ADA defines fasting as no caloric intake for at least 8 hours. Fasting plasma glucose results between 100 to 125 mg/dL indicate increased risk for diabetes (prediabetes). Fasting plasma glucose results greater than or equal to 126 mg/dL meet the criteria for diagnosis of diabetes. In the absence of unequivocal hyperglycemia, results should be confirmed by repeat testing. In a patient with classic symptoms of hyperglycemia or hyperglycemic crisis, random plasma glucose results greater than or equal to 200 mg/dL meet the criteria for diagnosis of diabetes. Reference: Standards of Medical Care in Diabetes 2016, [place] [employer]. Diabetes Care. 2016.39(Suppl 1). Performed By: #### 2 4321-2 ####[facility] LABORATORYCLIA [id number] [place] [id number] [place] Potassium [Moles/Vol] 4.6 mmol/L Normal 3.7-5.1 [facility] Comment on above: Order Comment: David del real Type: BLOOD SPECIMENOrdering Facility: [facility] Address: [address] [place] [address] Performed By: #### 2 4321-2 ####[facility] LABORATORYCLIA [id number] [place] [address] [place] Sodium [Moles/Vol] 137 mmol/L Normal 136-144 [facility] Comment on above: Order Comment: David del real Type: BLOOD SPECIMENOrdering Facility: [facility] Address: [address] [facility] [place] [address] Performed By: #### 2 4321-2 ####[facility] LABORATORYCLIA [id number] [place] [id number] [place] Urea nitrogen [Mass/Vol] 22 mg/dL High 7-21 [facility] Comment on above: Order Comment: Speci men Type: BLOOD SPECIMENOrdering Facility: [facility] Address: [address] [facility] [place] [id number] Performed By: #### 2 4321-2 ####[facility] LABORATORYCLIA [id number] [place] [address] [facility] OF AKI CNDSon 07-06-2024 CNDS HNO ID: [id number] Author: JORGE L ZEE APRN.PROTEIN PURIFICATION SCIENTIST Service: General Internal Medicine Author Type: Nurse Practitioner Type: Discharge Summary Filed: 07/08/2024 18:34 Note Text: DISCHARGE SUMMARY PATIENT NAME: Azalea Mott Code Status: Not on file Highest Readmission Risk Score: 9 The 30 day readmissions risk score is derived from an internally validated risk model which evaluates patient level characteristics, utilization history, medication orders and lab results up until the day of discharge. Patients with a score of 39 or above are considered highest risk for readmission. Specific patient level drivers will be listed at the bottom of the summary. Admission Information Admission Information ADMIT DATE: 06/30/2024 DISCHARGE DATE: 07/06/24 MY DOCTORS AND MEDICAL TEAM: My Main Hospital Doctor: Eligio Gibbons* Primary Care Provider: Navdeep Ulloa MD My Medical Team Members: Treatment Team: Attending Provider: Eligio Gibbons MD Consulting: Rupert Reyes MD MY CONDITION AT DISCHARGE: Stable REASON I WAS IN THE HOSPITAL: Osteoarthritis, status post right total hip arthroplasty, DVT prophylaxis with apixaban A fib/ A flutter with RVR control - continue B-jason, cardizem and Apixaben Obstructive sleep apnea on CPAP CKD stage III avoid nephrotoxic drugs, worsening of Cr improved - resolved Hypotension resolved Urinary retention voiding trail in 2 days at rehab Acute blood loss anemia supported by continued lab monitoring SUMMARY OF WHAT HAPPENED WHILE I WAS IN THE HOSPITAL: You were admitted on 06/30/2024 for Primary osteoarthritis of right hip S/P elective total right hip arthroplasty under Eligio Delatorre. Post-operatively Ortho recommended PWB 50% right lower extremity with posterior hip precautions. Eliquis was ordered for DVT prophylaxis with 2.5 mg twice daily for post-op days 1-4, then resumption of home dose of Eliquis 5 mg twice daily on post op day 5. The antibiotic Duricef was ordered twice daily for a duration of 2 weeks. Aquacel dressing to be removed on post op day 7. Post-op hypotension was noted which resolved with IV fluids administration. NAHID was noted. Urinary retention was noted and Cook catheter was placed. Voiding trial was attempted but failed and cook catheter was replaced. Cook catheter will remain in place upon discharge and voiding trial can be attempted in 2-3 days. NAHID resolved. Atrial fibrillation with RVR was noted. Doses of IV Lopressor were given and heart rate improved. Cardiology was consulted. Oral metoprolol and Cardizem were ordered for continued rate control. You remained in a.fib with a controlled rate. PT/OT recommended SNF. [facility] will be discharged to [facility]. Please follow-up with your PCP in 1-2 weeks. Follow-up with Orthopedics in 2 weeks. The following procedures were performed while you were admitted: Procedure(s) (LRB): ROBOTIC ASSISTED TOTAL HIP ARTHROPLASTY (see comments) (Right) COMPUTER ASSIST MUSCULOSKETAL SURG NAVIGATION ORTHO PROCED W/IMAGE GUIDANCE BASED ON CT/MRI IMAGES (Right) OTHER PROBLEMS/DIAGNOSIS: Principal Problem: S/P total right hip arthroplasty Resolved Problems: Atrial fibrillation with RVR (HCC) OPERATIONS PERFORMED WHILE IN THE HOSPITAL: See Summary IMPORTANT TEST/PROCEDURES: No procedures performed TEST RESULTS NOT AVAILABLE AT THIS TIME: No pending results Discharge Disposition Discharge Disposition: [facility]sp Facility - Less than 30 Days Activity When You Leave the Hospital Other: PWB 50% right lower extremity with posterior hip precautions. Diet Instructions Resume your pre-hospital diet Call Your Doctor If There is an unusual odor from the wound area There is severe pain at the operative site You have persistent or heavy bleeding You have redness, swelling, pus or drainage from the wound Your temperature is greater than 101F Follow Up Appointments Follow-up Appointment When: In 2 weeks Rupert Reyes MD [phone] Rupert Reyes MD [facility] [address] [facility] [address] PCP Requested Referral Follow-up Appointment Orthopedics When: In 2 weeks Eligio Gibbons MD [phone] [address] [facility] [address] PCP Requested Referral Additional Provider to Provider Information: You were admitted on 06/30/2024 for Primary osteoarthritis of right hip S/P elective total right hip arthroplasty under Eligio Delatorre. Post-operatively Ortho recommended PWB 50% right lower extremity with posterior hip precautions. Eliquis was ordered for DVT prophylaxis with 2.5 mg twice daily for post-op days 1-4, then resumption of home dose of Eliquis 5 mg twice daily on post op day 5. The antibiotic Duricef was ordered twice daily for a duration of 2 weeks. Aquacel dressing to be removed on post op day 7. Post-op hypotension was noted which reso (more content not included)... Normal [facility] NUTRITIONon 07-06-2024 NUTRITION HNO ID: [id number] Author: YOBANI MUÑOZ RD Service: Nutrition Therapy Author Type: Registered Dietitian Type: Nutrition Filed: 07/06/2024 11:23 Note Text: NUTRITION THERAPY SCREEN NOTE SERVICE DATE: 07/06/2024 SERVICE TIME: Start Time: 929 Care Plan: Continue current diet Monitor intake Monitor and Evaluation: Meet greater than 75% of estimated needs Physician progress notes and labs reviewed. HPI: Osteoarthritis of right hip, s/p right total hip arthropalsty, DVT, Afib, CKD 3 Intake History: Current Nutrition Intake: (50-100% po intake of meals, most >75%) Current Intake Over time: Greater than or equal to 5 days Reports good appetite and po intake. Diet Orders (From admission, onward) Start Ordered 06/30/24 1430 Diet Heart Healthy START NOW Question: Heart Healthy Answer: 4 GM SODIUM (LOW SAT FAT) 06/30/24 1418 Anthropometrics: Height: 167.6 cm (5' 6) Weight: 99.3 kg (219 lb) Usual Weight: 98.4 kg (217 lb) 03/31/24. 01/27/24 217lbs, 08/25/23 212lbs, 08/03/23 213lbs, 2/15/24 Usual Weight Obtained From: Chart Review Weight Change: Stable weight(s) Lines, Drains, and Airways Drain Duration Indwelling Urinary Catheter 07/04/242039 [facility] Coude 16 Fr 1 day MNT Billing: $ Routine Care : 1 unit Time Spent (mins): 1 SIGNATURE: Yobani Muñoz RD PATIENT NAME: Azalea Mott DATE: July 06, 2024 TIME: 11:20 AM Normal [facility] Basic metabolic 2000 panelon 07-05-2024 Anion gap [Moles/Vol] 7 mmol/L Low 8-15 [facility] Comment on above: Order Comment: Speci men Type: BLOOD SPECIMENOrdering Facility: [facility] Address: [address] [place] [address] Performed By: #### 2 4321-2 ####[facility] LABORATORYCLIA [id number] [place] [address] [place] Calcium [Mass/Vol] 9.5 mg/dL Normal 8.5-10.2 [facility] Comment on above: Order Comment: Speci men Type: BLOOD SPECIMENOrdering Facility: [facility] Address: [address] [place] [address] Performed By: #### 2 4321-2 ####[facility] LABORATORYCLIA [id number] [place] [address] [place] Chloride [Moles/Vol] 101 mmol/L Normal 98-107 [facility] Comment on above: Order Comment: Speci men Type: BLOOD SPECIMENOrdering Facility: [facility] Address: [address] [place] [address] Performed By: #### 2 4321-2 ####[facility] LABORATORYCLIA [id number] [place] [address] [place] CO2 [Moles/Vol] 29 mmol/L Normal 22-30 [facility] Comment on above: Order Comment: Speci men Type: BLOOD SPECIMENOrdering Facility: [facility] Address: [address] [place] [address] Performed By: #### 2 4321-2 ####[facility] LABORATORYCLIA [id number] [place] [address] [place] Creatinine [Mass/Vol] 0.93 mg/dL Normal 0.58-0.96 [facility] Comment on above: Order Comment: David del real Type: BLOOD SPECIMENOrdering Facility: [facility] Address: [address] [place] [address] Performed By: #### 2 4321-2 ####[facility] LABORATORYCLIA [id number] [place] [id number] [facility] Creatinine and Glomerular filtration rate.predicted panel (S/P/Bld) 65 mL/min/1.73m??? Normal >=60 [facility] Comment on above: Order Comment: David del real Type: BLOOD SPECIMENOrdering Facility: [facility] Address: [address] [place] [address] Result Comment: Jessica mated Glomerular Filtration Rate (eGFR) is calculated using the 2020 CKD-EPI creatinine equation. This equation utilizes serum creatinine, sex, and age as parameters. The creatinine assay has traceable calibration to isotope dilution-mass spectrometry. Refer to KDIGO guidelines for clinical interpretation. In patients with unstable renal function, e.g. those with acute kidney injury, the eGFR may not accurately reflect actual GFR. Performed By: #### 2 4321-2 ####[facility] LABORATORYCLIA [id number] [address] [place] [facility] Glucose [Mass/Vol] 130 mg/dL High 74-99 [facility] Comment on above: Order Comment: David del real Type: BLOOD SPECIMENOrdering Facility: [facility] Address: [address] [place] [address] Result Comment: The [place] Diabetes Association (ADA) provides guidance for cutoff values for fasting glucose and random glucose. The ADA defines fasting as no caloric intake for at least 8 hours. Fasting plasma glucose results between 100 to 125 mg/dL indicate increased risk for diabetes (prediabetes). Fasting plasma glucose results greater than or equal to 126 mg/dL meet the criteria for diagnosis of diabetes. In the absence of unequivocal hyperglycemia, results should be confirmed by repeat testing. In a patient with classic symptoms of hyperglycemia or hyperglycemic crisis, random plasma glucose results greater than or equal to 200 mg/dL meet the criteria for diagnosis of diabetes. Reference: Standards of Medical Care in Diabetes 2016, [place] [employer]. Diabetes Care. 2016.39(Suppl 1). Performed By: #### 2 4321-2 ####[facility] LABORATORYCLIA [id number] [address] [place] [facility] Potassium [Moles/Vol] 5.3 mmol/L High 3.7-5.1 [facility] Comment on above: Order Comment: David del real Type: BLOOD SPECIMENOrdering Facility: [facility] Address: [address] [place] [address] Performed By: #### 2 4321-2 ####[facility] LABORATORYCLIA [id number] [address] Sodium [Moles/Vol] 137 mmol/L Normal 136-144 [facility] Comment on above: Order Comment: David del real Type: BLOOD SPECIMENOrdering Facility: [facility] Address: [address] [place] [address] Performed By: #### 2 4321-2 ####[facility] LABORATORYCLIA [id number] [address] [place] [facility] Urea nitrogen [Mass/Vol] 21 mg/dL Normal 7-21 [facility] Comment on above: Order Comment: David del real Type: BLOOD SPECIMENOrdering Facility: [facility] Address: [address] [place] [address] Performed By: #### 2 4321-2 ####[facility] LABORATORYCLIA [id number] [address] CBC panel Auto (Bld)on 07-05 Erythrocyte distribution width (RBC) [Ratio] 13.0 % Normal 11.5-15.0 [facility] Comment on above: Order Comment: David del real Type: BLOOD SPECIMENOrdering Facility: [facility] Address: [address] [place] [address] Performed By: #### 5 8410-2 ####[facility] LABORATORYCLIA [id number] [address] Hematocrit (Bld) [Volume fraction] 28.2 % Low 36.0-46.0 [facility] Comment on above: Order Comment: Speci men Type: BLOOD SPECIMENOrdering Facility: [facility] Address: [address] [place] [address] Performed By: #### 5 8410-2 ####[facility] LABORATORYCLIA [id number] [address] Hemoglobin (Bld) [Mass/Vol] 9.4 g/dL Low 11.5-15.5 [facility] Comment on above: Order Comment: Speci men Type: BLOOD SPECIMENOrdering Facility: [facility] Address: [address] [place] [address] Performed By: #### 5 8410-2 ####[facility] LABORATORYCLIA [id number] [address] MCH (RBC) [Entitic mass] 30.1 pg Normal 26.0-34.0 [facility] Comment on above: Order Comment: Speci men Type: BLOOD SPECIMENOrdering Facility: [facility] Address: [address] [place] [address] Performed By: #### 5 8410-2 ####[facility] LABORATORYCLIA [id number] [address] MCHC (RBC) [Mass/Vol] 33.3 g/dL Normal 30.5-36.0 [facility] Comment on above: Order Comment: Speci men Type: BLOOD SPECIMENOrdering Facility: [facility] Address: [address] [place] [address] Performed By: #### 5 8410-2 ####M[facility] LABORATORYCLIA [id number] [address] MCV (RBC) [Entitic vol] 90.4 fL Normal 80.0-100.0 M [facility] Comment on above: Order Comment: Speci men Type: BLOOD SPECIMENOrdering Facility: [facility] Address: [address] [place] [address] Performed By: #### 5 8410-2 ####[facility] LABORATORYCLIA [id number] [address] Nucleated RBC (Bld) [#/Vol] 10*3/uL Normal <0.01 [facility] Comment on above: Order Comment: Speci men Type: BLOOD SPECIMENOrdering Facility: [facility] Address: [facility] [place] [address] Performed By: #### 5 8410-2 ####M[facility] LABORATORYCLIA [id number] [address] [place] Platelet mean volume (Bld) [Entitic vol] 10.7 fL Normal 9.0-12.7 [facility] Comment on above: Order Comment: Speci men Type: BLOOD SPECIMENOrdering Facility: [facility] Address: [address] [place] [address] Performed By: #### 5 8410-2 ####[facility] LABORATORYCLIA [id number] [address] [place] Platelets (Bld) [#/Vol] 256 10*3/uL Normal 150-400 [facility] Comment on above: Order Comment: Speci men Type: BLOOD SPECIMENOrdering Facility: [facility] Address: [address] [place] [address] Performed By: #### 5 8410-2 ####MOR[facility] LABORATORYCLIA [id number] [place] [address] [place] RBC (Bld) [#/Vol] 3.12 10*6/uL Low 3.90-5.20 [facility] Comment on above: Order Comment: Speci men Type: BLOOD SPECIMENOrdering Facility: [facility] Address: [address] [place] [address] Performed By: #### 5 8410-2 ####M[facility] LABORATORYCLIA [id number] [address] [place] WBC (Bld) [#/Vol] 10.06 10*3/uL Normal 3.70-11.00 [facility] Comment on above: Order Comment: Speci men Type: BLOOD SPECIMENOrdering Facility: [facility] Address: [address] [place] [address] Performed By: #### 5 8410-2 ####MORRIS LABORATORYCLIA [id number] [place] [address] [place] [facility] THERAPY NTon 07-05-2024 THERAPY NT HNO ID: [id number] Author: AVINASH TORREZ PTA Service: Physical Therapy Author Type: Loans Consultant Type: Therapy (PT/OT/Speech/Resp) Filed: 07/05/2024 08:16 Note Text: Attestation signed by Preeti Sheffield PT at 07/05/2024 5:58 PM I reviewed and agree with the documentation corresponding to this therapy visit. SIGNATURE: Preeti Sheffield PT DATE: July 05, 2024 TIME: 5:58 PM Physical Therapy Treatment Summary SERVICE DATE: 07/05/2024 SERVICE TIME: 742 to 810 ROOM: [place] [address] PT 6 Clicks Score: 17 Total Joint Replacement Discharge Readiness: Cleared from Physical Therapy DISCHARGE RECOMMENDATIONS Subacute/SNF Recommended Discharge Disposition Comments: Pt is functioning below her baseline level and would benefit from further skilled therapy to address all functional limitations to allow pt to return to [facility]. Pt is a fall risk. Recommended Discharge Disposition Due to: Functional deficits requiring ongoing therapy service prior to discharge home., Anticipated community discharge, Balance deficits, Dominant side deficits, Functional status decline, Requires multiple therapy disciplines Anticipated Discharge Needs: Physical Assist at Home, Supervision at Home Physical Assist at Home for: Cleaning, Laundry, Meals, Shopping, Transportation, Self Care Supervision at Home due to: Other: See Comment (wet shower transfer safety) Recommended Discharge Equipment: No equipment needs anticipated ASSESSMENT Response to Therapy Interventions: Good Participation in Activities, Improved Tolerance for Activity, On-Track to Achieve Discharge Goals, Pain Patient successfully able to progress ambulation distance and perform seated exercises with no adverse effects. Patient requires no more than Min A-CGA with all functional mobility and appropriately follows therapist cues. Patient slightly tachycardiac with mobility and is noted to fatigue quickly. Continue to recommend rehab. PRECAUTIONS Fall Risk, Posterior Hip Precautions, Weight Bearing Restrictions, Hip Precautions - Posterior Dislocation, Bed/Chair Alarm Right Lower Extremity Weight Bearing Status: 50% PWB CURRENT HOSPITAL COURSE RLE robotic assist SYLVESTER 06/30, Rapid response 07/02 for A-fib RVR, transferred to stepdown unit Relevant Past Medical History: SIOBHAN, peripheral neuropathy, HLD, HTN, covid-19 HOME LIVING Patient Lives With: Spouse Assistance Available: 24-Hour Entry To Home: Ramp, With Rail Number Of Stairs To Bed/Bath: 0 Tub/Shower Type: walk-in shower with shower chair, grab bar, and a hand held shower Laundry: on main level. Spouse to complete Equipment Owned: Hand Held Shower, Shower Chair, Walker- Wheeled, Rollator, Cane, [employer] Industrial [employer] Teacher, Long Handled Sponge, Elevated Toilet Seat PRIOR FUNCTIONAL LEVEL Within Functional Limits, Required Assistance Assistance Required With: Transportation Indep w/o AD, assist to don socks, drives, shops, does cooking and cleaning. Spouse and she do laundry. Manages own meds. No falls in last 6 mos, sleeps in flat bed. SUBJECTIVE Patient pleasant and motivated to participate with PT. Ok per RN. THERAPY DIAGNOSIS Reduced mobility-other, Muscle Weakness (generalized) TREATMENT INTERVENTIONS Therapeutic Exercise (00527), Therapeutic Activity (85183), Gait Training (08581) Timed Code Treatment (minutes): 28 Skilled Treatment Time (minutes): 28 Therapeutic Exercise (39706) Treatment Minutes: 8 $ Therapeutic Exercise (48139) Billed Units: 0 units Exercise Ankle Pumps (number of reps): x10 B LE Quad Sets (number of reps): x10 B LE Glut Sets (number of reps): x10 B Heel Slides (number of reps): x10 B LE LAQ (number of reps): x10 B LE Hip Abduction (number of reps): x10 B LE Exercise: Reviewed HEP, patient verbalizes understanding Therapeutic Activity (81512) Treatment Minutes: 10 $ Therapeutic Activity (44766) Billed Units: 1 unit Gait Training (34621) Treatment Minutes: 10 $ Gait Training (10286) Billed Units: 1 unit TRAINING AND EDUCATION PROVIDED Advanced Balance Activities, Anatomy and Impact on Deficits, Assistive Device Use, Bed Mobility, Benefits of In-Hospital Mobility, Discharge Planning, Equipment, Exercise Program, Expected Functional Level, Falls Prevention, Gait Pattern, Reduction of Deviations, Positioning, Patient Exercise/Therapy Program Support Needs, Role of Physical Therapy, Standing Balance, Precautions/Restrictio ns THERAPEUTIC SKILLS USED Activity Dosing, Cues for Sequencing/Proper Technique for Activity, Cuing Tactile, Movement Facilitation, Muscle Activation Facilitation, Physical Assist, Postural Alignment Correction, Cuing Verbal FUNCTIONAL STATUS Bed Mobility Supine To Sit: Minimal Assistance HOB elevated, assist with R LE mgmt, to L svitlana (more content not included)... Normal [facility] Basic metabolic 2000 panelon 07-04-2024 Anion gap [Moles/Vol] 9 mmol/L Normal 8-15 [facility] Comment on above: Order Comment: Speci men Type: BLOOD SPECIMENOrdering Facility: [facility] Address: [address] [place] [address] Performed By: #### 2 4320-04, ####HANNA LABORATORYCLIA [id number] [place] [address] [place] Calcium [Mass/Vol] 8.7 mg/dL Normal 8.5-10.2 [facility] Comment on above: Order Comment: Speci men Type: BLOOD SPECIMENOrdering Facility: [facility] Address: [address] [place] [address] Performed By: #### 2 2, ####HANNA LABORATORYCLIA [id number] [place] [id number] [place] Chloride [Moles/Vol] 101 mmol/L Normal 98-107 [facility] Comment on above: Order Comment: Speci men Type: BLOOD SPECIMENOrdering Facility: [facility] Address: [address] [place] [address] Performed By: #### 2 432-2, ####HANNA LABORATORYCLIA [id number] [place] [address] [place] CO2 [Moles/Vol] 27 mmol/L Normal 22-30 [facility] Comment on above: Order Comment: David del real Type: BLOOD SPECIMENOrdering Facility: [facility] Address: [address] [place] [address] Performed By: #### 2 4321-2, ####MORRIS LABORATORYCLIA [id number] [place] [address] [place] Creatinine [Mass/Vol] 0.89 mg/dL Normal 0.58-0.96 [facility] Comment on above: Order Comment: David men Type: BLOOD SPECIMENOrdering Facility: [facility] Address: [address] [place] [address] Performed By: #### 2 4321-2, ####MORRIS LABORATORYCLIA [id number] [place] [phone] [facility] Creatinine and Glomerular filtration rate.predicted panel (S/P/Bld) 69 mL/min/1.73m??? Normal >=60 [facility] Comment on above: Order Comment: David del real Type: BLOOD SPECIMENOrdering Facility: [facility] Address: [address] [place] [address] Result Comment: Jessica mated Glomerular Filtration Rate (eGFR) is calculated using the 2020 CKD-EPI creatinine equation. This equation utilizes serum creatinine, sex, and age as parameters. The creatinine assay has traceable calibration to isotope dilution-mass spectrometry. Refer to KDIGO guidelines for clinical interpretation. In patients with unstable renal function, e.g. those with acute kidney injury, the eGFR may not accurately reflect actual GFR. Performed By: #### 2 4321-2, ####MORRIS LABORATORYCLIA [id number] [place] [phone] [place] Glucose [Mass/Vol] 131 mg/dL High 74-99 [facility] Comment on above: Order Comment: David del real Type: BLOOD SPECIMENOrdering Facility: [facility] Address: [address] [place] [address] Result Comment: The [place] Diabetes Association (ADA) provides guidance for cutoff values for fasting glucose and random glucose. The ADA defines fasting as no caloric intake for at least 8 hours. Fasting plasma glucose results between 100 to 125 mg/dL indicate increased risk for diabetes (prediabetes). Fasting plasma glucose results greater than or equal to 126 mg/dL meet the criteria for diagnosis of diabetes. In the absence of unequivocal hyperglycemia, results should be confirmed by repeat testing. In a patient with classic symptoms of hyperglycemia or hyperglycemic crisis, random plasma glucose results greater than or equal to 200 mg/dL meet the criteria for diagnosis of diabetes. Reference: Standards of Medical Care in Diabetes 2016, [place] Diabetes Association. Diabetes Care. 2016.39(Suppl 1). Performed By: #### 2 4320-2, ####MORRIS LABORATORYCLIA [id number] [place] [address] [place] Potassium [Moles/Vol] 4.8 mmol/L Normal 3.7-5.1 [facility] Comment on above: Order Comment: David del real Type: BLOOD SPECIMENOrdering Facility: [facility] Address: [address] [place] [address] Performed By: #### 2 4320-04, ####MORRIS LABORATORYCLIA [id number] [address] STATES OF [facility] Sodium [Moles/Vol] 137 mmol/L Normal 136-144 [facility] Comment on above: Order Comment: David del real Type: BLOOD SPECIMENOrdering Facility: [facility] Address: [address] [place] [address] Performed By: #### 2 4320-04, ####MORRIS LABORATORYCLIA [id number] [address] STATES [facility] Urea nitrogen [Mass/Vol] 21 mg/dL Normal 7-21 [facility] Comment on above: Order Comment: David del real Type: BLOOD SPECIMENOrdering Facility: [facility] Address: [address] [place] [address] Performed By: #### 2 4320-04, ####MORRIS LABORATORYCLIA [id number] [address] [place] CBC panel Auto (Bld)on 07-04 Erythrocyte distribution width (RBC) [Ratio] 13.0 % Normal 11.5-15.0 [facility] Comment on above: Order Comment: Speci men Type: BLOOD SPECIMENOrdering Facility: [facility] Address: [address] [place] [address] Performed By: #### 5 8410-2 ####MORRIS LABORATORYCLIA [id number] [address] OF [facility] Hematocrit (Bld) [Volume fraction] 29.4 % Low 36.0-46.0 [facility] Comment on above: Order Comment: Speci men Type: BLOOD SPECIMENOrdering Facility: [facility] Address: [address] [place] [address] Performed By: #### 5 8410-2 ####MORRIS LABORATORYCLIA [id number] [address] Hemoglobin (Bld) [Mass/Vol] 9.8 g/dL Low 11.5-15.5 [facility] Comment on above: Order Comment: Speci men Type: BLOOD SPECIMENOrdering Facility: [facility] Address: [address] [place] [address] Performed By: #### 5 8410-2 ####MORRIS LABORATORYCLIA [id number] [address] MCH (RBC) [Entitic mass] 30.2 pg Normal 26.0-34.0 [facility] Comment on above: Order Comment: Speci men Type: BLOOD SPECIMENOrdering Facility: [facility] Address: [address] [place] [address] Performed By: #### 5 8410-2 ####MORRIS LABORATORYCLIA [id number] [address] [place] MCHC (RBC) [Mass/Vol] 33.3 g/dL Normal 30.5-36.0 [facility] Comment on above: Order Comment: Speci men Type: BLOOD SPECIMENOrdering Facility: [facility] Address: [address] [place] [address] Performed By: #### 5 8410-2 ####MORRIS LABORATORYCLIA [id number] [place] [address] [place] MCV (RBC) [Entitic vol] 90.5 fL Normal 80.0-100.0 M [facility] Comment on above: Order Comment: Speci men Type: BLOOD SPECIMENOrdering Facility: [facility] Address: [address] [place] [address] Performed By: #### 5 8410-2 ####MORRIS LABORATORYCLIA [id number] [place] [address] [place] [facility] OF [place] Nucleated RBC (Bld) [#/Vol] 10*3/uL Normal <0.01 [facility] Comment on above: Order Comment: Speci men Type: BLOOD SPECIMENOrdering Facility: [facility] Address: [address] [place] [address] Performed By: #### 5 8410-2 ####MORRIS LABORATORYCLIA [id number] [address] [place] Platelet mean volume (Bld) [Entitic vol] 10.9 fL Normal 9.0-12.7 [facility] Comment on above: Order Comment: Speci men Type: BLOOD SPECIMENOrdering Facility: [facility] Address: [address] [place] [address] Performed By: #### 5 8410-2 ####MORRIS LABORATORYCLIA [id number] [address] [place] Platelets (Bld) [#/Vol] 235 10*3/uL Normal 150-400 [facility] Comment on above: Order Comment: Speci men Type: BLOOD SPECIMENOrdering Facility: [facility] Address: [address] [place] [address] Performed By: #### 5 8410-2 ####MORRIS LABORATORYCLIA [id number] [place] [address] [place] RBC (Bld) [#/Vol] 3.25 10*6/uL Low 3.90-5.20 [facility] Comment on above: Order Comment: Speci men Type: BLOOD SPECIMENOrdering Facility: [facility] Address: [address] [place] [address] Performed By: #### 5 8410-2 ####MORRIS LABORATORYCLIA [id number] [place] [address] [place] WBC (Bld) [#/Vol] 11.04 10*3/uL High 3.70-11.00 [facility] Comment on above: Order Comment: Speci men Type: BLOOD SPECIMENOrdering Facility: [facility] Address: [address] [place] [address] Performed By: #### 5 8410-2 ####HANNA LABORATORYCLIA [id number] [place] [address] [facility] OF AKI CNCOon 07-04-2024 CNCO Letter Text Normal [facility] CONSULTon 07-04-2024 CONSULT HNO ID: [id number] Author: TATY HIDALGO MD Service: Cardiovascular Disease Author Type: Physician Type: Consults Filed: 07/04/2024 10:04 Note Text: Attestation signed by Taty Hidalgo MD at 07/04/2024 9:56 AM (Updated) TEACHING PHYSICIAN NOTE OF PERSONAL INVOLVEMENT IN CARE: I have personally seen and examined the patient and performed the medical decision-making components. I have reviewed the medical student documentation and verified the findings in the note as written. 74 year old female, hx of COVID, diverticulosis, hypertension, SIOBHAN, atrial flutter and RBBB noted on 06/07/2024 EKG presented for elective hip arthroplasty. She is POD 4. Cardiology was consulted for management of aflutter. Last seen in clinic 06/09/24 where she was in aflutter rate 90s and was started on metoprolol 25 mg po daily and eliquis for stroke prophylaxis. Review of tele shows aflutter, rates fluctuating from 80s-120s. She denies chest pain, SOB, palpitations, orthopnea, PND, leg swelling, lightheadedness, syncope. Currently on metoprolol 100 mg po daily and diltiazem 60 mg po tid. EKG 07/01/24: Atrial flutter HR 145, iRBBB Cr 0.89 NST 06/23/24: no ischemia or scar EF 76%, TID0.9, no ST changes. PACs TTE 06/23/24: EF 63%, 0.9/0.9, grade II DD, RVSP 37, trace MR, 1+ TR,trace MD, mid asc Ao 2.5 O/E: Irregularly irregular rhythm. Otherwise unremarkable CV exam Aflutter HRs 70-120s CHADSVasc 3 Mild PHTN Hypertension Recommendations: Discussed management of aflutter including optimizing rate control vs rhythm control with antiarrhythmic therapy/ NIRU guided DCCV. At this time, will continue with rate control strategy. Increase diltiazem to 90 mg po tid On metoprolol 100 mg po daily Currently on eliquis 2.5 mg po bid per post op recommendations by orthopedic surgery with plans to increase dose to 5 mg po bid on POD 5. If cardioversion/ antiarrhythmic is being considered, NIRU would have to be done as eliquis was interrupted and dose had been reduced. Continue to monitor on telemetry Signature: Taty Norma Date: 07/04/2024 Time: 9:42 AM Expand All Collapse All [facility]IC[facility] CONSULT NOTE (Template ID [id number]) [place] [id number] PRIMARY SERVICE: Internal Medicine CONSULTING SERVICE: Cardiology DATE OF ADMISSION: 06/30/2024 DATE OF CONSULT: 07/04/2024 REASON FOR CONSULT Atrial flutter/Afib with RVR HISTORY OF PRESENT ILLNESS Azalea Mott is a 74 year old female with PMH of osteoarthritis, SIOBHAN on CPAP, CKD stage 3, hypertension, hyperlipidemia, atrial flutter, obesity, valvular heart disease and mild pulmonary hypertension. Patient underwent elective right total hip arthroplasty under general anesthesia on 06/30/2024. Patient had uneventful intraoperative course. Cardiology consulted because of atrial flutter/afib with RVR. She was diagnosed with atrial flutter based on 06/07/2024 EKG which showed atrial flutter and RBBB with 99 HR. When she got diagnosed with atrial flutter on 06/09/24 She was started on apixaban 5 mg twice a day ([id number] 3 ) and metoprolol 25 mg po then increased to metoprolol 50 mg. She had recent echo and nuclear stress test on 06/23/24 for preoperative assessment. Echo on 06/23/24 showed EF 63%, grade 2 left ventricular diastolic dysfunction and mild tricuspid regurgitation. Nuclear stress test on 06/23/24 showed normal results ECG on 07/01/24 showed afib with RVR, incomplete RBBB. PAST MEDICAL HISTORY PAST MEDICAL HISTORY PAST MEDICAL HISTORY Diagnosis Date Cholelithiasis with acute cholecystitis with biliary obstruction 09/2020 Chronic otitis media of both ears 1955 COVID-19 01/30/2021 home antigen test Diverticulosis of colon (without mention of hemorrhage) Diverticulosis Hearing loss in left ear 03/27/2009 Hereditary and idiopathic peripheral neuropathy Hyperlipidemia LDL goal <100 01/18/2016 Hypertension, essential 01/02/2020 Obesity, Class I, BMI 30-34.9 10/25/2020 SIOBHAN (obstructive sleep apnea) 01/27/2020 Personal history of colonic polyps 10/18/2004 hyperplastic Colon polyps Unspecified hemorrhoids without mention of complication Hemorrhoids PAST SURGICAL HISTORY PAST SURGICAL HISTORY Procedure Laterality Date ADENOIDECTOMY PRIMARY Adenoidectomy COLONOSCOPY FLX DX W/COLLJ SPEC WHEN PFRMD 10/18/2004 Colonoscopy-repeat in COLONOSCOPY FLX DX W/COLLJ SPEC WHEN PFRMD 02/13/2017 [id number] 10 years HYSTEROSCOPY BX W/WO DANDC 12/2011 endometrial polyp LAPAROSCOPIC CHOLECYSTECTOMY 09/24/2020 MASTOIDECTOMY,COMPLETE Left 1955 Mastoidectomy, left TONSILLECTOMY PRIMARY/SECONDARY Tonsillectomy FAMILY HISTORY FAMILY HISTORY FAMILY HISTORY Problem Relation Age of Onset Hypertension Mother Asthma Mother Diabetes Mother COPD Mother other (crohns [Other]) Mother Cancer Father NON HODGKINS LYMPHOMA Heart Father CHF Stro (more content not included)... [facility] CONSULT HNO ID: [id number] Author: TATY HIDALGO MD Service: Cardiovascular Disease Author Type: ? Type: Consults Filed: 07/04/2024 09:56 Note Text: Attestation signed by Taty Hidalgo MD at 07/04/2024 9:56 AM (Updated) TEACHING PHYSICIAN NOTE OF PERSONAL INVOLVEMENT IN CARE: I have personally seen and examined the patient and performed the medical decision-making components. I have reviewed the medical student documentation and verified the findings in the note as written. 74 year old female, hx of COVID, diverticulosis, hypertension, SIOBHAN, atrial flutter and RBBB noted on 06/07/2024 EKG presented for elective hip arthroplasty. She is POD 4. Cardiology was consulted for management of aflutter. Last seen in clinic 06/09/24 where she was in aflutter rate 90s and was started on metoprolol 25 mg po daily and eliquis for stroke prophylaxis. Review of tele shows aflutter, rates fluctuating from 80s-120s. She denies chest pain, SOB, palpitations, orthopnea, PND, leg swelling, lightheadedness, syncope. Currently on metoprolol 100 mg po daily and diltiazem 60 mg po tid. EKG 07/01/24: Atrial flutter HR 145, iRBBB Cr 0.89 NST 06/23/24: no ischemia or scar EF 76%, TID0.9, no ST changes. PACs TTE 06/23/24: EF 63%, 0.9/0.9, grade II DD, RVSP 37, trace MR, 1+ TR,trace MD, mid asc Ao 2.5 O/E: Irregularly irregular rhythm. Otherwise unremarkable CV exam Aflutter HRs 70-120s CHADSVasc 3 Mild PHTN Hypertension Recommendations: Discussed management of aflutter including optimizing rate control vs rhythm control with antiarrhythmic therapy/ NIRU guided DCCV. At this time, will continue with rate control strategy. Increase diltiazem to 90 mg po tid On metoprolol 100 mg po daily Currently on eliquis 2.5 mg po bid per post op recommendations by orthopedic surgery with plans to increase dose to 5 mg po bid on POD 5. If cardioversion/ antiarrhythmic is being considered, NIRU would have to be done as eliquis was interrupted and dose had been reduced. Continue to monitor on telemetry Signature: Taty Hidalgo Date: 07/04/2024 Time: 9:42 AM [facility]ARDI[facility]ICINE CONSULT NOTE (Template ID [id number]) [place] [id number] PRIMARY SERVICE: Internal Medicine CONSULTING SERVICE: Cardiology DATE OF ADMISSION: 06/30/2024 DATE OF CONSULT: 07/04/2024 REASON FOR CONSULT Atrial flutter/Afib with RVR HISTORY OF PRESENT ILLNESS Azalea Mott is a 74 year old female with PMH of osteoarthritis, SIOBHAN on CPAP, CKD stage 3, hypertension, hyperlipidemia, atrial flutter, obesity, valvular heart disease and mild pulmonary hypertension. Patient underwent elective right total hip arthroplasty under general anesthesia on 06/30/2024. Patient had uneventful intraoperative course. Cardiology consulted because of atrial flutter/afib with RVR. She was diagnosed with atrial flutter based on 06/07/2024 EKG which showed atrial flutter and RBBB with 99 HR. When she got diagnosed with atrial flutter on 06/09/24 She was started on apixaban 5 mg twice a day ([id number] 3 ) and metoprolol 25 mg po then increased to metoprolol 50 mg. She had recent echo and nuclear stress test on 06/23/24 for preoperative assessment. Echo on 06/23/24 showed EF 63%, grade 2 left ventricular diastolic dysfunction and mild tricuspid regurgitation. Nuclear stress test on 06/23/24 showed normal results ECG on 07/01/24 showed afib with RVR, incomplete RBBB. PAST MEDICAL HISTORY PAST MEDICAL HISTORY Diagnosis Date Cholelithiasis with acute cholecystitis with biliary obstruction 09/2020 Chronic otitis media of both ears 195 COVID-19 01/30/2021 home antigen test Diverticulosis of colon (without mention of hemorrhage) Diverticulosis Hearing loss in left ear 03/27/2009 Hereditary and idiopathic peripheral neuropathy Hyperlipidemia LDL goal <100 01/18/2016 Hypertension, essential 01/02/2020 Obesity, Class I, BMI 30-34.9 10/25/2020 SIOBHAN (obstructive sleep apnea) 01/27/2020 Personal history of colonic polyps 10/18/2004 hyperplastic Colon polyps Unspecified hemorrhoids without mention of complication Hemorrhoids PAST SURGICAL HISTORY Procedure Laterality Date ADENOIDECTOMY PRIMARY Adenoidectomy COLONOSCOPY FLX DX W/COLLJ SPEC WHEN PFRMD 10/18/2004 Colonoscopy-repeat in COLONOSCOPY FLX DX W/COLLJ SPEC WHEN PFRMD 02/13/2017 [id number]-Gncyp-fdfzwq 10 years HYSTEROSCOPY BX W/WO DANDC 12/2011 endometrial polyp LAPAROSCOPIC CHOLECYSTECTOMY 09/24/2020 MASTOIDECTOMY,COMPLETE Left 1955 Mastoidectomy, left TONSILLECTOMY PRIMARY/SECONDARY Tonsillectomy FAMILY HISTORY FAMILY HISTORY Problem Relation Age of Onset Hypertension Mother Asthma Mother Diabetes Mother COPD Mother other (crohns [Other]) Mother (more content not included)... Normal [facility] Magnesium SerPl-mCncon 07-04 Magnesium [Mass/Vol] 2.1 mg/dL Normal 1.7-2.3 [facility] Comment on above: Order Comment: Speci men Type: BLOOD SPECIMENOrdering Facility: [facility] Address: [facility] [place] [address] Performed By: #### 2 4321-2, 37988-4 ####HANNA LABORATORYCLIA [id number] [address] THERAPY NTon 07-04-2024 THERAPY NT HNO ID: [id number] Author: ADEBAYO GUZMAN OT/Vanesa Service: ? Author Type: Occupational Therapist Type: Therapy (PT/OT/Speech/Resp) Filed: 07/04/2024 14:58 Note Text: Summary: OT Treatment Occupational Therapy Treatment Summary SERVICE DATE: 07/04/2024 SERVICE TIME: 1429 to 1449 ROOM: [place] [address] OT 6 Clicks Score: 15 Total Joint Replacement Discharge Readiness: Pending Occupational Therapy Clearance DISCHARGE RECOMMENDATIONS Subacute/SNF Recommended Discharge Disposition Due to: Functional deficits requiring ongoing therapy service prior to discharge home., ADL impairment, Anticipated community discharge, Functional status decline Anticipated Discharge Needs: Physical Assist at Home, Supervision at Home Physical Assist at Home for: Cleaning, Laundry, Meals, Shopping, Transportation, Self Care Supervision at Home due to: Other: See Comment (wet shower transfer safety) Recommended Discharge Equipment: To Be Determined ASSESSMENT Response to Therapy Interventions: Good Participation in Activities, Low Activity Tolerance, On-Track to Achieve Discharge Goals, Pain, Requires Additional Time to Complete Activities Patient is now Min-Mod A for transfers and mobility, able to recall 2/3 posterior hip precautions, reports lightheadedness with mobility/transfers but vitals WFL throughout entire session, pt is functioning below baseline with ADLs and mobility/transfers, OT to change d/c rec to SNF this session and pt agreeable PRECAUTIONS Fall Risk, Posterior Hip Precautions, Weight Bearing Restrictions, Hip Precautions - Posterior Dislocation, Bed/Chair Alarm Right Lower Extremity Weight Bearing Status: 50% PWB CURRENT HOSPITAL COURSE RLE robotic assist SYLVESTER 06/30, Rapid response 07/02 for A-fib RVR, transferred to stepdown unit Relevant Past Medical History: SIOBHAN, peripheral neuropathy, HLD, HTN, covid-19 HOME LIVING Patient Lives With: Spouse Assistance Available: 24-Hour Entry To Home: Ramp, With Rail Number Of Stairs To Bed/Bath: 0 Tub/Shower Type: walk-in shower with shower chair, grab bar, and a hand held shower Laundry: on main level. Spouse to complete Equipment Owned: Hand Held Shower, Shower Chair, Walker- Wheeled, Rollator, Cane, [employer] Teacher, Long Handled Sponge, Elevated Toilet Seat PRIOR FUNCTIONAL LEVEL Within Functional Limits, Required Assistance Assistance Required With: Transportation Indep w/o AD, assist to don socks, drives, shops, does cooking and cleaning. Spouse and she do laundry. Manages own meds. No falls in last 6 mos, sleeps in flat bed. Baseline Cognition: Oriented to self, Oriented to place, Oriented to time, Oriented to situation SUBJECTIVE Patient pleasant and agreeable to this session, RN cleared to work with COGNITION Orientation Deficits: (AOx4) Responsiveness: Alert, Awake Follows Commands: 3-step Commands THERAPY DIAGNOSIS Reduced mobility-other, Decreased activities of daily living (ADL), Muscle Weakness (generalized), Unsteadiness on feet TREATMENT INTERVENTIONS Self Fci Management (93435) Timed Code Treatment (minutes): 20 Skilled Treatment Time (minutes): 20 TRAINING AND EDUCATION PROVIDED Activity Adaptation/Clinical Nurse Leader y Strategies, Adaptive Equipment/DME, Bed Mobility, Benefits of In-Hospital Mobility, Cognitive Skills, Command Following, Discharge Planning, Expected Functional Level, Functional Mobility Involving ADLs, Grooming Tasks, Insight into Deficits, Memory/Attention, Positioning, Pain Management, Precautions/Restrictio ns, Role of Occupational Therapy, Safety/Judgment, Sitting Balance to Improve Harvey with ADLs/Self-Care, Standing Balance to Improve Harvey with ADLs/Self-Care, Transfer - Bed to Chair, Transfer - Sit to Stand THERAPEUTIC SKILLS USED Activity Dosing, Assessment of Tolerance Including Vitals Response to Activity, Cues for Sequencing/Proper Technique for Activity, Cuing Tactile, Cuing Verbal, Cuing Visual, Facilitation of Joint Range of Motion, Muscle Activation Facilitation, Movement Facilitation, Physical Assist, Task Analysis Learning, Teach-Back for Education, Therapeutic Use of Self FUNCTIONAL STATUS Activities of Daily Living Assist Level Additional Information Feeding Independent Grooming Moderate Assistance, Additional Information if standing at the sink/counter, Setup when seated to wash face this session in the chair Bathing Upper Body Set Up Bathing Lower Body Moderate Assistance, Additional Information Dressing Upper Body Set Up Dressing Lower Body Moderate Assistance, Additional Information Toileting Moderate Assistance Mobility Assist Level Additional Information Bed Mobility Scooting: Moderate Assistance to EOB with use of bed pad Supine To Sit: Moderate Assistance, Add (more content not included)... [facility] [place] THERAPY NT HNO ID: [id number] Author: DAYANA ZIMMER PTA Service: Physical Therapy Author Type: Loans Consultant Type: Therapy (PT/OT/Speech/Resp) Filed: 07/04/2024 10:55 Note Text: Attestation signed by Preeti Sheffield, PT at 07/05/2024 5:59 PM I reviewed and agree with the documentation corresponding to this therapy visit. SIGNATURE: Preeti Sheffield, PT DATE: July 05, 2024 TIME: 5:59 PM Summary: PT Treat Physical Therapy Treatment Summary SERVICE DATE: 07/04/2024 SERVICE TIME: 1008 to 1034 ROOM: [id number] PT 6 Clicks Score: 15 DISCHARGE RECOMMENDATIONS Subacute/SNF Recommended Discharge Disposition Comments: Pt is functioning below her baseline level and would benefit from further skilled therapy to address all functional limitations to allow pt to return to [facility]. Pt is a fall risk. Recommended Discharge Disposition Due to: Functional deficits requiring ongoing therapy service prior to discharge home., Anticipated community discharge, Balance deficits, Dominant side deficits, Functional status decline, Requires multiple therapy disciplines Anticipated Discharge Needs: Physical Assist at Home, Supervision at Home Physical Assist at Home for: Cleaning, Laundry, Meals, Shopping, Transportation, Self Care Supervision at Home due to: Other: See Comment (wet shower transfer safety) Recommended Discharge Equipment: No equipment needs anticipated ASSESSMENT Response to Therapy Interventions: Good Participation in Activities, Low Activity Tolerance, Pain, Requires Additional Time to Complete Activities, Requires Encouragement to Complete Activities, Slow Progression with Functional Activities/Skills pt tolerated session well. pt had increased dizziness with all movement. pt able to step forward a few feet before transfering to chair. continue to recommend SNF PRECAUTIONS Fall Risk, Posterior Hip Precautions, Weight Bearing Restrictions Right Lower Extremity Weight Bearing Status: 50% PWB CURRENT HOSPITAL COURSE RLE robotic assist SYLVESTER Relevant Past Medical History: SIOBHAN, peripheral neuropathy, HLD, HTN, covid-19 HOME LIVING Patient Lives With: Spouse Assistance Available: 24-Hour Entry To Home: Ramp, With Rail Number Of Stairs To Bed/Bath: 0 Tub/Shower Type: walk-in shower with shower chair, grab bar, and a hand held shower Laundry: on main level. Spouse to complete Equipment Owned: Hand Held Shower, Shower Chair, Walker- Wheeled, Rollator, Cane, [employer] Teacher, Long Handled Sponge, Elevated Toilet Seat PRIOR FUNCTIONAL LEVEL Within Functional Limits, Required Assistance Assistance Required With: Transportation Indep w/o AD, assist to don socks, drives, shops, does cooking and cleaning. Spouse and she do laundry. Manages own meds. No falls in last 6 mos, sleeps in flat bed. SUBJECTIVE pt agreeable to PT okay per RN to see. pt reports she is doing well but still gets dizzy/lightheaded when sitting or standing THERAPY DIAGNOSIS Reduced mobility-other, Muscle Weakness (generalized) TREATMENT INTERVENTIONS Therapeutic Activity (37122), Gait Training (85602) Timed Code Treatment (minutes): 26 Skilled Treatment Time (minutes): 26 Therapeutic Activity (26314) Treatment Minutes: 20 $ Therapeutic Activity (20393) Billed Units: 2 units Gait Training (89737) Treatment Minutes: 6 $ Gait Training (10797) Billed Units: 0 units TRAINING AND EDUCATION PROVIDED Anatomy and Impact on Deficits, Assistive Device Use, Bed Mobility, Benefits of In-Hospital Mobility, Discharge Planning, Equipment, Exercise Program, Gait Pattern, Reduction of Deviations, Patient Exercise/Therapy Program Support Needs, Positioning, Precautions/Restrictio ns, Standing Balance, Transfers THERAPEUTIC SKILLS USED Activity Dosing, Assessment of Tolerance Including Vitals Response to Activity, Cues for Sequencing/Proper Technique for Activity, Cuing Verbal, Family Training, Movement Facilitation, Physical Assist, Postural Alignment Correction FUNCTIONAL STATUS Bed Mobility Supine To Sit: Stand By Assistance, Contact Guard Assistance, Additional Information increased time to complete. HOB elevated. pt able to bring BLE towards EOB with SBA. pt used leg electronic tester to RLE to assist with transfer. CGA to hips last few feet towards EOB. pt sat EOB for extended time due to feeling dizzy. Sit to Supine: Additional Information OOB in chair at end of session Scooting: Contact Guard Assistance, Additional Information forward towards EOB. retro in chair Transfers Sit To Stand: Moderate Assistance, Additional Information review of WB and hip precautions. cues fo (more content not included)... Normal [facility] CBC panel Auto (Bld)on 07-03 Erythrocyte distribution width (RBC) [Ratio] 12.8 % Normal 11.5-15.0 [facility] Comment on above: Order Comment: Speci men Type: BLOOD SPECIMENOrdering Facility: [facility] Address: [address] [place] [address] Performed By: #### 5 8410-2 ####HANNA LABORATORYCLIA [id number] [address] [place] Hematocrit (Bld) [Volume fraction] 28.9 % Low 36.0-46.0 [facility] Comment on above: Order Comment: Speci men Type: BLOOD SPECIMENOrdering Facility: [facility] Address: [address] [place] [address] Performed By: #### 5 8410-2 ####MORRIS LABORATORYCLIA [id number] [place] [address] [place] Hemoglobin (Bld) [Mass/Vol] 9.8 g/dL Low 11.5-15.5 [facility] Comment on above: Order Comment: Speci men Type: BLOOD SPECIMENOrdering Facility: [facility] Address: [address] [place] [address] Performed By: #### 5 8410-2 ####MORRIS LABORATORYCLIA [id number] [address] [place] MCH (RBC) [Entitic mass] 30.4 pg Normal 26.0-34.0 [facility] Comment on above: Order Comment: Speci men Type: BLOOD SPECIMENOrdering Facility: [facility] Address: [address] [place] [address] Performed By: #### 5 8410-2 ####MORRIS LABORATORYCLIA [id number] [address] [place] MCHC (RBC) [Mass/Vol] 33.9 g/dL Normal 30.5-36.0 [facility] Comment on above: Order Comment: Speci men Type: BLOOD SPECIMENOrdering Facility: [facility] Address: [address] [place] [address] Performed By: #### 5 8410-2 ####MORRIS LABORATORYCLIA [id number] [place] [address] [place] MCV (RBC) [Entitic vol] 89.8 fL Normal 80.0-100.0 M [facility] Comment on above: Order Comment: Speci men Type: BLOOD SPECIMENOrdering Facility: [facility] Address: [address] [place] [address] Performed By: #### 5 8410-2 ####MORRIS LABORATORYCLIA [id number] [address] [place] Nucleated RBC (Bld) [#/Vol] 10*3/uL Normal <0.01 [facility] Comment on above: Order Comment: Speci men Type: BLOOD SPECIMENOrdering Facility: [facility] Address: [address] [place] [address] Performed By: #### 5 8410-2 ####MORRIS LABORATORYCLIA [id number] [address] [place] Platelet mean volume (Bld) [Entitic vol] 11.0 fL Normal 9.0-12.7 [facility] Comment on above: Order Comment: Speci men Type: BLOOD SPECIMENOrdering Facility: [facility] Address: [address] [place] [address] Performed By: #### 5 8410-2 ####MORRIS LABORATORYCLIA [id number] [address] [place] Platelets (Bld) [#/Vol] 197 10*3/uL Normal 150-400 [facility] Comment on above: Order Comment: Speci men Type: BLOOD SPECIMENOrdering Facility: [facility] Address: [address] [place] [address] Performed By: #### 5 8410-2 ####MORRIS LABORATORYCLIA [id number] [place] [address] [place] RBC (Bld) [#/Vol] 3.22 10*6/uL Low 3.90-5.20 [facility] Comment on above: Order Comment: Speci men Type: BLOOD SPECIMENOrdering Facility: [facility] Address: [address] [place], [place] [address] Performed By: #### 5 8410-2 ####MORRIS LABORATORYCLIA [id number] [place] [id number] [place] WBC (Bld) [#/Vol] 15.14 10*3/uL High 3.70-11.00 [facility] Comment on above: Order Comment: Speci men Type: BLOOD SPECIMENOrdering Facility: [facility] Address: [address] [place] [address] Performed By: #### 5 8410-2 ####MORRIS LABORATORYCLIA [id number] [place] [id number] [facility] THERAPY NTon 07-03-2024 THERAPY NT HNO ID: [id number] Author: YAMILKA FARRELL, GUIDO Service: Physical Therapy Author Type: Physical Therapist Type: Therapy (PT/OT/Speech/Resp) Filed: 07/03/2024 16:57 Note Text: Physical Therapy Treatment Summary SERVICE DATE: 07/03/2024 SERVICE TIME: 1545 to 1625 ROOM: [place] [address] PT 6 Clicks Score: 14 Total Joint Replacement Discharge Readiness: Cleared from Physical Therapy DISCHARGE RECOMMENDATIONS Subacute/SNF Recommended Discharge Disposition Comments: Pt is functioning below her baseline level and would benefit from further skilled therapy to address all functional limitations to allow pt to return to [facility]. Pt is a fall risk. Recommended Discharge Disposition Due to: Functional deficits requiring ongoing therapy service prior to discharge home., Anticipated community discharge, Balance deficits, Dominant side deficits, Functional status decline, Requires multiple therapy disciplines Anticipated Discharge Needs: Physical Assist at Home, Supervision at Home Physical Assist at Home for: Cleaning, Laundry, Meals, Shopping, Transportation, Self Care Supervision at Home due to: Other: See Comment (wet shower transfer safety) Recommended Discharge Equipment: No equipment needs anticipated ASSESSMENT Response to Therapy Interventions: Good Participation in Activities, Low Activity Tolerance, Pain, Requires Additional Time to Complete Activities, Requires Encouragement to Complete Activities, Slow Progression with Functional Activities/Skills Pt tolerated session with minimal c/o pain. Pt requiring extended time and assist to complete functional mobility tasks. Pt with limited ambulation distance due to fatigue and c/o dizziness. Pt requires encouragement to participate in therapy session and increase mobility. Pt encouraged and education on HEP and increasing mobility. Pt and family educated on discharge recommendations of SNF. 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 Spouse to complete Equipment Owned: Hand Held Shower, Shower Chair, Walker- Wheeled, Rollator, Cane, [employer] Teacher, Long Handled Sponge, Elevated Toilet Seat PRIOR FUNCTIONAL LEVEL Within Functional Limits, Required Assistance Assistance Required With: Transportation Indep w/o AD, assist to don socks, drives, shops, does cooking and cleaning. Spouse and she do laundry. Manages own meds. No falls in last 6 mos, sleeps in flat bed. SUBJECTIVE Patient pleasant and reluctant but agreeable to PT treatment THERAPY DIAGNOSIS Reduced mobility-other TREATMENT INTERVENTIONS Therapeutic Exercise (66447), Therapeutic Activity (44270), Gait Training (06448) Timed Code Treatment (minutes): 40 Skilled Treatment Time (minutes): 40 TRAINING AND EDUCATION PROVIDED Anatomy and Impact on Deficits, Assistive Device Use, Bed Mobility, Benefits of In-Hospital Mobility, Discharge Planning, Equipment, Exercise Program, Gait Pattern, Reduction of Deviations, Patient Exercise/Therapy Program Support Needs, Positioning, Precautions/Restrictio ns, Standing Balance, Transfers THERAPEUTIC SKILLS USED Activity Dosing, Assessment of Tolerance Including Vitals Response to Activity, Cues for Sequencing/Proper Technique for Activity, Cuing Verbal, Family Training, Movement Facilitation, Physical Assist, Postural Alignment Correction FUNCTIONAL STATUS Bed Mobility Supine To Sit: Moderate Assistance, Minimal Assistance, Additional Information HOB elevated, assist with R LE mgmt, step by step instructions, extended time to complete, heavier assist for trunk to EOB Sit to Supine: Additional Information Patient in bed side chair at end of treatment Scooting: Contact Guard Assistance, Additional Information forward at EOB to prepare for transfer with cues to maintain hip precautions Transfers Sit To Stand: Minimal Assistance, Additional Information Height of bed elevated to assist, pt unable to complete from lower surface. Pt also needing to place one hand on walker to assist with transfer. Cue for sequencing, WB restrictions and hip precautions with good follow through Stand To Sit: Contact Guard Assistance, Minimal Assistance, Additional Information Cues for hand placement, surgical leg extension and controlled/eccentric decent Bed to Chair Minimal Assistance, Additional Information Bed To Chair Transfer Type: Stepping Bed To Chair Transfer Equipment: Wheeled Walker Gait Contact Guard Assistance, Additional Information Step-to gait, cues for upright postu (more content not included)... Normal [facility] Basic metabolic 2000 panelon 07-02-2024 Anion gap [Moles/Vol] 8 mmol/L Normal 8-15 [facility] Comment on above: Order Comment: Speci men Type: BLOOD SPECIMENOrdering Facility: [facility] Address: [address] [place] [address] Performed By: #### 1 9123-9, ####HANNA LABORATORYCLIA [id number] [place] [address] [place] Calcium [Mass/Vol] 8.9 mg/dL Normal 8.5-10.2 [facility] Comment on above: Order Comment: Speci men Type: BLOOD SPECIMENOrdering Facility: [facility] Address: [address] [place] [id number] Performed By: #### 1 9123-9, 73091-4 ####HANNA LABORATORYCLIA [id number] [place] [address] [place] Chloride [Moles/Vol] 106 mmol/L Normal 98-107 [facility] Comment on above: Order Comment: Speci men Type: BLOOD SPECIMENOrdering Facility: [facility] Address: [address] [place] [address] Performed By: #### 1 9123-9, 02102-1 ####MORRIS LABORATORYCLIA [id number] [place] [address] [place] CO2 [Moles/Vol] 26 mmol/L Normal 22-30 [facility] Comment on above: Order Comment: David del real Type: BLOOD SPECIMENOrdering Facility: [facility] Address: [address] [place] [address] Performed By: #### 1 9123-9, ####MORRIS LABORATORYCLIA [id number] [address] STATES OF [facility] Creatinine [Mass/Vol] 1.06 mg/dL High 0.58-0.96 [facility] Comment on above: Order Comment: Dallasi men Type: BLOOD SPECIMENOrdering Facility: [facility] Address: [address] [place] [address] Performed By: #### 1 91239, ####MORRIS LABORATORYCLIA [id number] [address] Creatinine and Glomerular filtration rate.predicted panel (S/P/Bld) 56 mL/min/1.73m??? Low >=60 [facility] Comment on above: Order Comment: David del real Type: BLOOD SPECIMENOrdering Facility: [facility] Address: [address] [place] [address] Result Comment: Jessica mated Glomerular Filtration Rate (eGFR) is calculated using the 2020 CKD-EPI creatinine equation. This equation utilizes serum creatinine, sex, and age as parameters. The creatinine assay has traceable calibration to isotope dilution-mass spectrometry. Refer to KDIGO guidelines for clinical interpretation. In patients with unstable renal function, e.g. those with acute kidney injury, the eGFR may not accurately reflect actual GFR. Performed By: #### 1 9123-9, ####MORRIS LABORATORYCLIA [id number] [place] [id number] [place] Glucose [Mass/Vol] 119 mg/dL High 74-99 [facility] Comment on above: Order Comment: David del real Type: BLOOD SPECIMENOrdering Facility: [facility] Address: [address] [place] [address] Result Comment: The [place] Diabetes Association (ADA) provides guidance for cutoff values for fasting glucose and random glucose. The ADA defines fasting as no caloric intake for at least 8 hours. Fasting plasma glucose results between 100 to 125 mg/dL indicate increased risk for diabetes (prediabetes). Fasting plasma glucose results greater than or equal to 126 mg/dL meet the criteria for diagnosis of diabetes. In the absence of unequivocal hyperglycemia, results should be confirmed by repeat testing. In a patient with classic symptoms of hyperglycemia or hyperglycemic crisis, random plasma glucose results greater than or equal to 200 mg/dL meet the criteria for diagnosis of diabetes. Reference: Standards of Medical Care in Diabetes 2016, [place] [employer] Association. Diabetes Care. 2016.39(Suppl 1). Performed By: #### 1 91239, 38847-4 ####MORRIS LABORATORYCLIA [id number] [place] [address] [place] Potassium [Moles/Vol] 4.5 mmol/L Normal 3.7-5.1 [facility] Comment on above: Order Comment: David del real Type: BLOOD SPECIMENOrdering Facility: [facility] Address: [address] [place] [address] Performed By: #### 1 91, 02319-2 ####MORRIS LABORATORYCLIA [id number] [address] STATES [facility] Sodium [Moles/Vol] 140 mmol/L Normal 136-144 [facility] Comment on above: Order Comment: David del real Type: BLOOD SPECIMENOrdering Facility: [facility] Address: [address] [place] [address] Performed By: #### 1 91, 15646-1 ####MORRIS LABORATORYCLIA [id number] [place] [address] [place] Urea nitrogen [Mass/Vol] 21 mg/dL Normal 7-21 [facility] Comment on above: Order Comment: David del real Type: BLOOD SPECIMENOrdering Facility: [facility] Address: [address] [place] [address] Performed By: #### 1 91239, 64775-9 ####MORRIS LABORATORYCLIA [id number] [place] [address] [place] Anion gap [Moles/Vol] 12 mmol/L Normal 8-15 [facility] Comment on above: Order Comment: Speci men Type: BLOOD SPECIMENOrdering Facility: [facility] Address: [address] [place] [address] Performed By: #### 2 4321-2 ####MORRIS LABORATORYCLIA [id number] [place] [address] [place] Calcium [Mass/Vol] 8.9 mg/dL Normal 8.5-10.2 [facility] Comment on above: Order Comment: Speci men Type: BLOOD SPECIMENOrdering Facility: [facility] Address: [address] [place] [address] Performed By: #### 2 4321-2 ####MORRIS LABORATORYCLIA [id number] [place] [address] [place] Chloride [Moles/Vol] 106 mmol/L Normal 98-107 [facility] Comment on above: Order Comment: Speci men Type: BLOOD SPECIMENOrdering Facility: [facility] Address: [address] [place] [address] Performed By: #### 2 4321-2 ####MORRIS LABORATORYCLIA [id number] [place] [address] [place] CO2 [Moles/Vol] 19 mmol/L Low 22-30 [facility] Comment on above: Order Comment: Speci men Type: BLOOD SPECIMENOrdering Facility: [facility] Address: [address] [place] [address] Performed By: #### 2 4321-2 ####MORRIS LABORATORYCLIA [id number] [place] [address] [place] Creatinine [Mass/Vol] 1.04 mg/dL High 0.58-0.96 [facility] Comment on above: Order Comment: Speci men Type: BLOOD SPECIMENOrdering Facility: [facility] Address: [address] [place] [address] Performed By: #### 2 4321-2 ####MORRIS LABORATORYCLIA [id number] [place] [address] [place] Creatinine and Glomerular filtration rate.predicted panel (S/P/Bld) 57 mL/min/1.73m??? Low >=60 [facility] Comment on above: Order Comment: David delr eal Type: BLOOD SPECIMENOrdering Facility: [facility] Address: [address] [place] [address] Result Comment: Jessica mated Glomerular Filtration Rate (eGFR) is calculated using the 2020 CKD-EPI creatinine equation. This equation utilizes serum creatinine, sex, and age as parameters. The creatinine assay has traceable calibration to isotope dilution-mass spectrometry. Refer to KDIGO guidelines for clinical interpretation. In patients with unstable renal function, e.g. those with acute kidney injury, the eGFR may not accurately reflect actual GFR. Performed By: #### 2 4321-2 ####MORRIS LABORATORYCLIA [id number] [place] [id number] [place] Glucose [Mass/Vol] 126 mg/dL High 74-99 [facility] Comment on above: Order Comment: David del real Type: BLOOD SPECIMENOrdering Facility: [facility] Address: [address] [place] [address] Result Comment: The [place] Diabetes Association (ADA) provides guidance for cutoff values for fasting glucose and random glucose. The ADA defines fasting as no caloric intake for at least 8 hours. Fasting plasma glucose results between 100 to 125 mg/dL indicate increased risk for diabetes (prediabetes). Fasting plasma glucose results greater than or equal to 126 mg/dL meet the criteria for diagnosis of diabetes. In the absence of unequivocal hyperglycemia, results should be confirmed by repeat testing. In a patient with classic symptoms of hyperglycemia or hyperglycemic crisis, random plasma glucose results greater than or equal to 200 mg/dL meet the criteria for diagnosis of diabetes. Reference: Standards of Medical Care in Diabetes 2016, [place] Diabetes Association. Diabetes Care. 2016.39(Suppl 1). Performed By: #### 2 4321-2 ####HANNA LABORATORYCLIA [id number] [place] [address] [place] Potassium [Moles/Vol] 4.5 mmol/L Normal 3.7-5.1 [facility] Comment on above: Order Comment: David del real Type: BLOOD SPECIMENOrdering Facility: [facility] Address: [address] [place] [id number] Performed By: #### 2 4321-2 ####MORRIS LABORATORYCLIA [id number] [address] [place] [facility] Sodium [Moles/Vol] 137 mmol/L Normal 136-144 [facility] Comment on above: Order Comment: Speci men Type: BLOOD SPECIMENOrdering Facility: [facility] Address: [address] [place] [address] Performed By: #### 2 4321-2 ####MORRIS LABORATORYCLIA [id number] [address] [place] Urea nitrogen [Mass/Vol] 22 mg/dL High 7-21 [facility] Comment on above: Order Comment: Speci men Type: BLOOD SPECIMENOrdering Facility: [facility] Address: [address] [place] [address] Performed By: #### 2 4321-2 ####MORRIS LABORATORYCLIA [id number] [address] CBC panel Auto (Bld)on 07-02 Erythrocyte distribution width (RBC) [Ratio] 12.9 % Normal 11.5-15.0 [facility] Comment on above: Order Comment: Speci men Type: BLOOD SPECIMENOrdering Facility: [facility] Address: [address] [place] [address] Performed By: #### 5 8410-2 ####MORRIS LABORATORYCLIA [id number] [address] Hematocrit (Bld) [Volume fraction] 30.4 % Low 36.0-46.0 [facility] Comment on above: Order Comment: Speci men Type: BLOOD SPECIMENOrdering Facility: [facility] Address: [address] [place] [address] Performed By: #### 5 8410-2 ####MORRIS LABORATORYCLIA [id number] [address] [place] Hemoglobin (Bld) [Mass/Vol] 10.0 g/dL Low 11.5-15.5 [facility] Comment on above: Order Comment: Speci men Type: BLOOD SPECIMENOrdering Facility: [facility] Address: [address] [place] [address] Performed By: #### 5 8410-2 ####MORRIS LABORATORYCLIA [id number] [address] MCH (RBC) [Entitic mass] 30.4 pg Normal 26.0-34.0 [facility] Comment on above: Order Comment: Speci men Type: BLOOD SPECIMENOrdering Facility: [facility] Address: [address] [place] [address] Performed By: #### 5 8410-2 ####MORRIS LABORATORYCLIA [id number] [address] [place] MCHC (RBC) [Mass/Vol] 32.9 g/dL Normal 30.5-36.0 [facility] Comment on above: Order Comment: Speci men Type: BLOOD SPECIMENOrdering Facility: [facility] Address: [address] [place] [address] Performed By: #### 5 8410-2 ####MORRIS LABORATORYCLIA [id number] [address] MCV (RBC) [Entitic vol] 92.4 fL Normal 80.0-100.0 [facility] Comment on above: Order Comment: Speci men Type: BLOOD SPECIMENOrdering Facility: [facility] Address: [address] [place] [address] Performed By: #### 5 8410-2 ####MORRIS LABORATORYCLIA [id number] [address] Nucleated RBC (Bld) [#/Vol] 10*3/uL Normal <0.01 [facility] Comment on above: Order Comment: Speci men Type: BLOOD SPECIMENOrdering Facility: [facility] Address: [address] [place] [address] Performed By: #### 5 8410-2 ####MORRIS LABORATORYCLIA [id number] [address] Platelet mean volume (Bld) [Entitic vol] 10.8 fL Normal 9.0-12.7 [facility] Comment on above: Order Comment: Speci men Type: BLOOD SPECIMENOrdering Facility: [facility] Address: [address] [place] [address] Performed By: #### 5 8410-2 ####MORRIS LABORATORYCLIA [id number] [address] Platelets (Bld) [#/Vol] 185 10*3/uL Normal 150-400 [facility] Comment on above: Order Comment: Speci men Type: BLOOD SPECIMENOrdering Facility: [facility] Address: [address] [place] [address] Performed By: #### 5 8410-2 ####MORRIS LABORATORYCLIA [id number] [place] [address] [place] RBC (Bld) [#/Vol] 3.29 10*6/uL Low 3.90-5.20 [facility] Comment on above: Order Comment: Speci men Type: BLOOD SPECIMENOrdering Facility: [facility] Address: [address] [place] [address] Performed By: #### 5 8410-2 ####MORRIS LABORATORYCLIA [id number] [address] [place] WBC (Bld) [#/Vol] 15.44 10*3/uL High 3.70-11.00 [facility] Comment on above: Order Comment: Speci men Type: BLOOD SPECIMENOrdering Facility: [facility] Address: [address] [place] [address] Performed By: #### 5 8410-2 ####MORRIS LABORATORYCLIA [id number] [place] [id number] [facility] EKGon 07-02-2024 Electrocardiogram Ventricular Rate : 1 66 BPM Atrial Rate : 340 BPM QRS Duration : 106 ms Q-T Interval : 276 ms QTC Calculation(Bazett) : 458 ms Calculated R [place] : -29 degrees Calculated T [place] : 34 degrees ATRIAL FLUTTER PREMATURE VENTRICULAR COMPLEXES INCOMPLETE RIGHT BUNDLE BRANCH BLOCK NONSPECIFIC ST ABNORMALITY ABNORMAL ECG Confirmed by TATY HIDALGO MD ([id number]) on 07/05/2024 4:46:52 PM NAME : AZALEA MOTT PID : [id number] : 1950 Gender : Female Race : ORD : Procedure Date : Jul 02 2024 14:15:13 Edit Date : Jul 05 2024 16:46:58 Diagnosis: ATRIAL FLUTTER PREMATURE VENTRICULAR COMPLEXES INCOMPLETE RIGHT BUNDLE BRANCH BLOCK NONSPECIFIC ST ABNORMALITY ABNORMAL ECG Confirmed by TATY HIDALGO MD ([id number]) on 07/05/2024 4:46:52 PM Test Reason : Location : 3 : [address] [place] [address] Overread By : TATY HIDALGO MD Edited By : TATY HIDALGO MD Referred By : , Acquired by : [facility] EMERon 07-02-2024 [facility] HNO ID: [id number] Author: PREETI LAZO APRN.PROTEIN PURIFICATION SCIENTIST Service: Critical Care Author Type: Nurse Practitioner Type: Chg in Clinical Condition Filed: 07/02/2024 14:57 Note Text: EMERGENCY RESPONSE TEAM Rapid Response Date of MET Page: July 02, 2024 Time of MET Page: 4548 Requesting Provider: Bedside RN SUMMARY DIAGNOSIS, ASSESSMENT and RECOMMENDATIONS HOLISTIC NUTRITIONIST called for A fib with RVR in the 160s-170s. Pt is asymptomatic. BP is stable. Pt has known new history of A. Fib since the beginning of the month. She was started on 50mg PO metop and Eliquis OP. She is s/p right total hip 06/30. She previously went into A fib w/ RVR yesterday and it was controlled with 125mcg of Dig. She is taking her home dose of PO metop. 5mg IVP x3 pushed slowing HR to 110s-120s. Will give 250 mcg of Digoxin now. Spoke with primary team, Dr. Reyes who stated to order 5mg IVP metoprolol q4h for rate control. Status: Stable PLAN #Afib/flutter RVR - Check mag level - consider increasing PO metop - 5mg IVP metop x3 administered - Continue eliquis - PRN 5mg IVP metop q4h per primary team - 250mcg Digoxin ordered - Encourage CPAP use DISPOSITION and OUTCOME Responded to therapy, remains on current unit under care of: Dr. Gibbons with Dr. Reyes for medical management. History of Present Illness: This is a 74 year old female PMH Diverticulosis, HTN, SIOBHAN, aflutter (eliquis), RBBB who was admitted to the hospital for R hip replacement on 06/30. PRIMARY REASON FOR CALL Cardiac: Heart rate <40 or >140 with new symptoms Any Heart Rate >150 PAST MEDICAL / SURGICAL HISTORY PAST MEDICAL HISTORY Diagnosis Date Cholelithiasis with acute cholecystitis with biliary obstruction 09/2020 Chronic otitis media of both ears 1955 COVID-19 01/30/2021 home antigen test Diverticulosis of colon (without mention of hemorrhage) Diverticulosis Hearing loss in left ear 03/27/2009 Hereditary and idiopathic peripheral neuropathy Hyperlipidemia LDL goal <100 01/18/2016 Hypertension, essential 01/02/2020 Obesity, Class I, BMI 30-34.9 10/25/2020 SIOBHAN (obstructive sleep apnea) 01/27/2020 Personal history of colonic polyps 10/18/2004 hyperplastic Colon polyps Unspecified hemorrhoids without mention of complication Hemorrhoids , PAST SURGICAL HISTORY Procedure Laterality Date ADENOIDECTOMY PRIMARY Adenoidectomy COLONOSCOPY FLX DX W/COLLJ SPEC WHEN PFRMD 10/18/2004 Colonoscopy-repeat in COLONOSCOPY FLX DX W/COLLJ SPEC WHEN PFRMD 02/13/2017 [id number] 10 years HYSTEROSCOPY BX W/WO DANDC 12/2011 endometrial polyp LAPAROSCOPIC CHOLECYSTECTOMY 09/24/2020 MASTOIDECTOMY,COMPLETE Left 1955 Mastoidectomy, left TONSILLECTOMY PRIMARY/SECONDARY Tonsillectomy , Active Hospital Problems Diagnosis S/P total right hip arthroplasty MEDICATIONS Current Facility-Administered Medications Medication Dose Route Frequency metoprolol 5 mg injection (LOPRESSOR) 5 mg INTRAVENOUS ONCE metoprolol 5 mg injection (LOPRESSOR) 5 mg INTRAVENOUS ONCE metoprolol 5 mg injection (LOPRESSOR) 5 mg INTRAVENOUS ONCE digoxin 250 mcg injection (LANOXIN) 250 mcg INTRAVENOUS ONCE metoprolol 5 mg injection (LOPRESSOR) 5 mg INTRAVENOUS q 4 H PRN atorvastatin 10 mg tab(s) (LIPITOR) 10 mg ORAL AT BEDTIME metoprolol succinate ER 50 mg tab(s) (TOPROL XL) 50 mg ORAL DAILY NaCl 0.9% iv flush bag 20 mL INTRAVENOUS PRN acetaminophen 1,000 mg tab(s) (TYLENOL) 1,000 mg ORAL q 8 H oxyCODONE IR 5-10 mg tab(s) (ROXICODONE) 5-10 mg ORAL q 3 H PRN HYDROmorphone 0.4 mg injection (DILAUDID) 0.4 mg INTRAVENOUS q 4 H PRN ondansetron orally disintegrating 4 mg tab(s) (ZOFRAN ODT) 4 mg ORAL q 6 H PRN Or ondansetron (PF) 4 mg injection (ZOFRAN) 4 mg INTRAVENOUS q 6 H PRN magnesium hydroxide 400 mg/5 mL 30 mL (MOM) 30 mL ORAL DAILY PRN bisacodyl EC 10 mg tab(s) (DULCOLAX) 10 mg ORAL DAILY aluminum-magnesium hydroxide-simethicone 200-200-20 mg/5 mL 30 mL 30 mL ORAL q 2 H PRN ferrous sulfate 325 mg tab(s) 325 mg ORAL DAILY WITH BREAKFAST ascorbic acid (vitamin C) 500 mg tab(s) (VITAMIN C) 500 mg ORAL BID w MEALS senna 17.2 mg tab(s) (SENOKOT) 17.2 mg ORAL AT BEDTIME apixaban 2.5 mg tab(s) (ELIQUIS) 2.5 mg ORAL BID pantoprazole DR 40 mg tab(s) (PROTONIX) 40 mg ORAL DAILY (6 AM) cephALEXin 500 mg cap(s) (KEFLEX) 500 mg ORAL q 6 H and metoprolol succinate ER (TOPROL XL) 50 mg 24 hr tablet, Take 1 tablet by mouth once daily., Disp: 30 tablet, Rfl: , 06/30/2024 Morning hydroCHLOROthiazide 25 mg tablet, Take 1 tablet by mouth once daily., Disp: 90 tablet, Rfl: , 06/29/2024 lisinopril (ZESTRIL) 10 mg tablet, Take 1 tablet by mouth once daily., Disp: 90 tablet, Rfl: , 06/30/2024 Morning atorvastatin (LIPITOR) 10 mg tablet, Take 1 tablet by mouth daily at bedtime. For cholesterol., Disp: 90 tablet, Rfl: , 06/29/2024 [Paused] Black Cohosh 40 mg tab, Take 1 tablet by mouth. Take 1 tablet every other day, Disp: , Rfl: , (more content not included)... Normal [facility] Magnesium SerPl-mCncon 07-02 Magnesium [Mass/Vol] 2.4 mg/dL High 1.7-2.3 [facility] Comment on above: Order Comment: Speci men Type: BLOOD SPECIMENOrdering Facility: [facility] Address: [address] [place] [address] Performed By: #### 1 9123-9, 75141-1 ####[facility] LABORATORYNORTHEAST[facility] [id number] [place] [address] [facility] THERAPY NTon 07-02-2024 THERAPY NT HNO ID: [id number] Author: AVINASH TORREZ PTA Service: Physical Therapy Author Type: Loans Consultant Type: Therapy (PT/OT/Speech/Resp) Filed: 07/02/2024 11:15 Note Text: Attestation signed by Doyle Dawkins, PT at 07/02/2024 3:53 PM I reviewed and agree with the documentation corresponding to this therapy visit. SIGNATURE: DOYLE DAWKINS, GUIDO DATE: July 02, 2024 TIME: 3:53 PM Physical Therapy Treatment Summary SERVICE DATE: 07/02/2024 SERVICE TIME: 1035 to 1106 ROOM: [id number] PT 6 Clicks Score: 18 Total Joint Replacement Discharge Readiness: Cleared from Physical Therapy DISCHARGE RECOMMENDATIONS Home PT Recommended Discharge Disposition Comments: s/p R THR Anticipated Discharge Needs: Physical Assist at Home, Supervision at Home Physical Assist at Home for: Cleaning, Laundry, Meals, Shopping, Transportation, Self Care Supervision at Home due to: Other: See Comment (wet shower transfer safety) Recommended Discharge Equipment: No equipment needs anticipated ASSESSMENT Response to Therapy Interventions: Good Participation in Activities, Improved Tolerance for Activity, On-Track to Achieve Discharge Goals, Pain Patient pleasanta nd cooperative. Patient successfully able to tolerate gait training and bed mobility. Patient slightly tachycardiac with mobility with HR reaching 115 BPM. Patient requires no more than CGA with all OOB and demonstrates excellent safety awareness. Continue to recommend SNF. 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 Spouse to complete Equipment Owned: Hand Held Shower, Shower Chair, Walker- Wheeled, Rollator, Cane, [employer] Teacher, Long Handled Sponge, Elevated Toilet Seat PRIOR FUNCTIONAL LEVEL Within Functional Limits, Required Assistance Assistance Required With: Transportation Indep w/o AD, assist to don socks, drives, shops, does cooking and cleaning. Spouse and she do laundry. Manages own meds. No falls in last 6 mos, sleeps in flat bed. SUBJECTIVE Patient pleasant and cooperative, ok per RN. THERAPY DIAGNOSIS Reduced mobility-other TREATMENT INTERVENTIONS Therapeutic Activity (86475), Gait Training (66896) Timed Code Treatment (minutes): 25 Skilled Treatment Time (minutes): 25 Therapeutic Activity (45323) Treatment Minutes: 15 $ Therapeutic Activity (72961) Billed Units: 1 unit Gait Training (29002) Treatment Minutes: 10 $ Gait Training (67776) Billed Units: 1 unit TRAINING AND EDUCATION PROVIDED Advanced Balance Activities, Anatomy and Impact on Deficits, Assistive Device Use, Bed Mobility, Benefits of In-Hospital Mobility, Discharge Planning, Equipment, Exercise Program, Expected Functional Level, Falls Prevention, Gait Pattern, Reduction of Deviations, Handout Issued, Home Set-up/Modifications, Home Safety, Positioning, Patient Exercise/Therapy Program Support Needs, Role of Physical Therapy, Standing Balance, Precautions/Restrictio ns THERAPEUTIC SKILLS USED Activity Dosing, Cues for Sequencing/Proper Technique for Activity, Cuing Tactile, Movement Facilitation, Muscle Activation Facilitation, Physical Assist, Postural Alignment Correction, Cuing Verbal FUNCTIONAL STATUS Bed Mobility Supine To Sit: Minimal Assistance HOB elevated, assist with R LE mgmt, step by step instructions, extended time to complete Sit to Supine: Additional Information Patient in bed side chair at end of treatment Scooting: Contact Guard Assistance in sitting forward to EOB Transfers Sit To Stand: Contact Guard Assistance x1 trial from EOB, x1 trial from chair Stand To Sit: Contact Guard Assistance Cues for hand placement, surgical leg extension and controlled/eccentric decent Bed to Chair Minimal Assistance, Additional Information Bed To Chair Transfer Type: Stepping Bed To Chair Transfer Equipment: Wheeled Walker Gait Contact Guard Assistance Step-to gait, cues for upright posture, sequencing and safety Gait Device: Wheeled Walker General Deviations/Observation s: Flora decreased, Step length decreased Gait Distance (feet): 18'x1 Gait Deviations Right Lower Extremity: Step length decreased, Weight bearing decreased Stairs Additional Information GOALS Patient will demonstrate understanding of importance of mobility during hospital stay and resolve all functional needs identifie (more content not included)... Normal [facility] Basic metabolic 2000 panelon 07-01-2024 Anion gap [Moles/Vol] 8 mmol/L Normal 8-15 [facility] Comment on above: Order Comment: Speci men Type: BLOOD SPECIMENOrdering Facility: [facility] Address: [address] [place] [address] Performed By: #### 2 4321-2 ####HANNA LABORATORYCLIA [id number] [place] [address] [place] Calcium [Mass/Vol] 8.5 mg/dL Normal 8.5-10.2 [facility] Comment on above: Order Comment: Speci men Type: BLOOD SPECIMENOrdering Facility: [facility] Address: [address] [place] [address] Performed By: #### 2 4321-2 ####HANNA LABORATORYCLIA [id number] [place] [id number] [place] Chloride [Moles/Vol] 103 mmol/L Normal 98-107 [facility] Comment on above: Order Comment: Speci men Type: BLOOD SPECIMENOrdering Facility: [facility] Address: [address] [place] [address] Performed By: #### 2 4321-2 ####HANNA LABORATORYCLIA [id number] [place] [address] [place] CO2 [Moles/Vol] 25 mmol/L Normal 22-30 [facility] Comment on above: Order Comment: David gt Type: BLOOD SPECIMENOrdering Facility: [facility] Address: [address] [place] [address] Performed By: #### 2 4321-2 ####HANNA LABORATORYCLIA [id number] [address] STATES OF [facility] Creatinine [Mass/Vol] 1.29 mg/dL High 0.58-0.96 [facility] Comment on above: Order Comment: David gt Type: BLOOD SPECIMENOrdering Facility: [facility] Address: [address] [place] [address] Performed By: #### 2 4321-2 ####HANNA LABORATORYCLIA [id number] [address] Creatinine and Glomerular filtration rate.predicted panel (S/P/Bld) 44 mL/min/1.73m??? Low >=60 [facility] Comment on above: Order Comment: David gt Type: BLOOD SPECIMENOrdering Facility: [facility] Address: [address] [place] [address] Result Comment: Jessica mated Glomerular Filtration Rate (eGFR) is calculated using the 2020 CKD-EPI creatinine equation. This equation utilizes serum creatinine, sex, and age as parameters. The creatinine assay has traceable calibration to isotope dilution-mass spectrometry. Refer to KDIGO guidelines for clinical interpretation. In patients with unstable renal function, e.g. those with acute kidney injury, the eGFR may not accurately reflect actual GFR. Performed By: #### 2 4321-2 ####HANNA LABORATORYCLIA [id number] [address] Glucose [Mass/Vol] 133 mg/dL High 74-99 [facility] Comment on above: Order Comment: David del real Type: BLOOD SPECIMENOrdering Facility: [facility] Address: [address] [place] [address] Result Comment: The [place] Diabetes Association (ADA) provides guidance for cutoff values for fasting glucose and random glucose. The ADA defines fasting as no caloric intake for at least 8 hours. Fasting plasma glucose results between 100 to 125 mg/dL indicate increased risk for diabetes (prediabetes). Fasting plasma glucose results greater than or equal to 126 mg/dL meet the criteria for diagnosis of diabetes. In the absence of unequivocal hyperglycemia, results should be confirmed by repeat testing. In a patient with classic symptoms of hyperglycemia or hyperglycemic crisis, random plasma glucose results greater than or equal to 200 mg/dL meet the criteria for diagnosis of diabetes. Reference: Standards of Medical Care in Diabetes 2016, [place] Diabetes [employer]. Diabetes Care. 2016.39(Suppl 1). Performed By: #### 2 4321-2 ####MORRIS LABORATORYCLIA [id number] [address] [place] OF [facility] Potassium [Moles/Vol] 4.5 mmol/L Normal 3.7-5.1 [facility] Comment on above: Order Comment: David del real Type: BLOOD SPECIMENOrdering Facility: [facility] Address: [address] [place] [address] Performed By: #### 2 4321-2 ####MORRIS LABORATORYCLIA [id number] [address] [place] OF [facility] Sodium [Moles/Vol] 136 mmol/L Normal 136-144 [facility] Comment on above: Order Comment: David del real Type: BLOOD SPECIMENOrdering Facility: [facility] Address: [address] [place] [address] Performed By: #### 2 4321-2 ####MORRIS LABORATORYCLIA [id number] [address] [place] [facility] Urea nitrogen [Mass/Vol] 31 mg/dL High 7-21 [facility] Comment on above: Order Comment: Speci men Type: BLOOD SPECIMENOrdering Facility: [facility] Address: [address] [place] [address] Performed By: #### 2 4321-2 ####MORRIS LABORATORYCLIA [id number] [address] [place] [facility] Anion gap [Moles/Vol] 7 mmol/L Low 8-15 [facility] Comment on above: Order Comment: David del real Type: BLOOD SPECIMENOrdering Facility: [facility] Address: [address] [place] [address] Performed By: #### 2 4321-2 ####MORRIS LABORATORYCLIA [id number] [place] [address] [place] Calcium [Mass/Vol] 8.8 mg/dL Normal 8.5-10.2 [facility] Comment on above: Order Comment: Speci men Type: BLOOD SPECIMENOrdering Facility: [facility] Address: [address] [place] [address] Performed By: #### 2 4321-2 ####MORRIS LABORATORYCLIA [id number] [place] [address] [place] Chloride [Moles/Vol] 102 mmol/L Normal 98-107 [facility] Comment on above: Order Comment: Speci men Type: BLOOD SPECIMENOrdering Facility: [facility] Address: [address] [place] [address] Performed By: #### 2 4321-2 ####MORRIS LABORATORYCLIA [id number] [place] [address] [place] CO2 [Moles/Vol] 26 mmol/L Normal 22-30 [facility] Comment on above: Order Comment: Speci men Type: BLOOD SPECIMENOrdering Facility: [facility] Address: [address] [place] [address] Performed By: #### 2 4321-2 ####MORRIS LABORATORYCLIA [id number] [place] [address] [place] Creatinine [Mass/Vol] 1.39 mg/dL High 0.58-0.96 [facility] Comment on above: Order Comment: Speci men Type: BLOOD SPECIMENOrdering Facility: [facility] Address: [address] [place] [address] Performed By: #### 2 4321-2 ####MORRIS LABORATORYCLIA [id number] [address] [place] Creatinine and Glomerular filtration rate.predicted panel (S/P/Bld) 40 mL/min/1.73m??? Low >=60 [facility] Comment on above: Order Comment: Speci men Type: BLOOD SPECIMENOrdering Facility: [facility] Address: [address] [place], [place] [id number] Result Comment: Jessica mated Glomerular Filtration Rate (eGFR) is calculated using the 2020 CKD-EPI creatinine equation. This equation utilizes serum creatinine, sex, and age as parameters. The creatinine assay has traceable calibration to isotope dilution-mass spectrometry. Refer to KDIGO guidelines for clinical interpretation. In patients with unstable renal function, e.g. those with acute kidney injury, the eGFR may not accurately reflect actual GFR. Performed By: #### 2 4321-2 ####HANNA LABORATORYCLIA [id number] [place] [address] [place] Glucose [Mass/Vol] 143 mg/dL High 74-99 [facility] Comment on above: Order Comment: David del real Type: BLOOD SPECIMENOrdering Facility: [facility] Address: [address] [place] [address] Result Comment: The [place] Diabetes Association (ADA) provides guidance for cutoff values for fasting glucose and random glucose. The ADA defines fasting as no caloric intake for at least 8 hours. Fasting plasma glucose results between 100 to 125 mg/dL indicate increased risk for diabetes (prediabetes). Fasting plasma glucose results greater than or equal to 126 mg/dL meet the criteria for diagnosis of diabetes. In the absence of unequivocal hyperglycemia, results should be confirmed by repeat testing. In a patient with classic symptoms of hyperglycemia or hyperglycemic crisis, random plasma glucose results greater than or equal to 200 mg/dL meet the criteria for diagnosis of diabetes. Reference: Standards of Medical Care in Diabetes 2016, [place] Diabetes Association. Diabetes Care. 2016.39(Suppl 1). Performed By: #### 2 4321-2 ####HANNA LABORATORYCLIA [id number] [place] [id number] [place] Potassium [Moles/Vol] 4.7 mmol/L Normal 3.7-5.1 [facility] Comment on above: Order Comment: David del real Type: BLOOD SPECIMENOrdering Facility: [facility] Address: [address] [place] [id number] Performed By: #### 2 4321-2 ####MORRIS LABORATORYCLIA [id number] [place] [address] [place] Sodium [Moles/Vol] 135 mmol/L Low 136-144 [facility] Comment on above: Order Comment: Speci men Type: BLOOD SPECIMENOrdering Facility: [facility] Address: [address] [place] [address] Performed By: #### 2 4321-2 ####MORRIS LABORATORYCLIA [id number] [address] [place] [facility] Urea nitrogen [Mass/Vol] 29 mg/dL High 7-21 [facility] Comment on above: Order Comment: Speci men Type: BLOOD SPECIMENOrdering Facility: [facility] Address: [address] [place] [address] Performed By: #### 2 4321-2 ####MORRIS LABORATORYCLIA [id number] [address] CBC panel Auto (Bld)on 07-01 Erythrocyte distribution width (RBC) [Ratio] 12.9 % Normal 11.5-15.0 [facility] Comment on above: Order Comment: Speci men Type: BLOOD SPECIMENOrdering Facility: [facility] Address: [address] [place] [address] Performed By: #### 5 8410-2 ####MORRIS LABORATORYCLIA [id number] [address] Hematocrit (Bld) [Volume fraction] 29.9 % Low 36.0-46.0 [facility] Comment on above: Order Comment: Speci men Type: BLOOD SPECIMENOrdering Facility: [facility] Address: [address] [place] [address] Performed By: #### 5 8410-2 ####MORRIS LABORATORYCLIA [id number] [address] [place] [facility] Hemoglobin (Bld) [Mass/Vol] 9.9 g/dL Low 11.5-15.5 [facility] Comment on above: Order Comment: Speci men Type: BLOOD SPECIMENOrdering Facility: [facility] Address: [address] [place] [address] Performed By: #### 5 8410-2 ####MORRIS LABORATORYCLIA [id number] [place] [address] [place] MCH (RBC) [Entitic mass] 30.1 pg Normal 26.0-34.0 [facility] Comment on above: Order Comment: Speci men Type: BLOOD SPECIMENOrdering Facility: [facility] Address: [address] [place] [address] Performed By: #### 5 8410-2 ####MORRIS LABORATORYCLIA [id number] [place] [address] [place] MCHC (RBC) [Mass/Vol] 33.1 g/dL Normal 30.5-36.0 [facility] Comment on above: Order Comment: Speci men Type: BLOOD SPECIMENOrdering Facility: [facility] Address: [address] [place] [address] Performed By: #### 5 8410-2 ####HANNA LABORATORYCLIA [id number] [place] [address] [place] MCV (RBC) [Entitic vol] 90.9 fL Normal 80.0-100.0 [facility] Comment on above: Order Comment: Speci men Type: BLOOD SPECIMENOrdering Facility: [facility] Address: [address] [place] [address] Performed By: #### 5 8410-2 ####MORRIS LABORATORYCLIA [id number] [place] [address] [place] Nucleated RBC (Bld) [#/Vol] 10*3/uL Normal <0.01 [facility] Comment on above: Order Comment: Speci men Type: BLOOD SPECIMENOrdering Facility: [facility] Address: [address] [place] [address] Performed By: #### 5 8410-2 ####MORRIS LABORATORYCLIA [id number] [place] [address] [place] Platelet mean volume (Bld) [Entitic vol] 11.2 fL Normal 9.0-12.7 [facility] Comment on above: Order Comment: Speci men Type: BLOOD SPECIMENOrdering Facility: [facility] Address: [address] [place] [address] Performed By: #### 5 8410-2 ####MORRIS LABORATORYCLIA [id number] [place] [address] [place] [facility] OF AKI Platelets (Bld) [#/Vol] 190 10*3/uL Normal 150-400 [facility] Comment on above: Order Comment: Specroxanne del real Type: BLOOD SPECIMENOrdering Facility: [facility] Address: [address] [place] [address] Performed By: #### 5 8410-2 ####HANNA LABORATORYCLIA [id number] [place] [address] [place] RBC (Bld) [#/Vol] 3.29 10*6/uL Low 3.90-5.20 [facility] Comment on above: Order Comment: Speci men Type: BLOOD SPECIMENOrdering Facility: [facility] Address: [address] [place] [address] Performed By: #### 5 8410-2 ####HANNA LABORATORYCLIA [id number] [place] [address] [place] WBC (Bld) [#/Vol] 13.62 10*3/uL High 3.70-11.00 [facility] Comment on above: Order Comment: David del real Type: BLOOD SPECIMENOrdering Facility: [facility] Address: [address] [place] [address] Performed By: #### 5 8410-2 ####HANNA LABORATORYCLIA [id number] [address] OF AKI CNPCande 07-01-2024 CNPN Telephone (HCSIND) AZALEA MOTT ([id number]) 1950 F Date Time Provider Department 07/01/24 BHASKAR LAGOS HCSIND During your visit today, we recorded the following information about you: Bhaskar Lagos PSS 07/01/2024 10:05 AM Signed Date/Time: 07/01/2024 10:00 AM Spoke with Uli (spouse) @ phone #: [phone] - Preferred # for contact: [phone] Uli (spouse) Have you received help from a home care company in the last 60 days? No Are you agreeable to [facility] services? Yes What address will we be seeing you at? [address] [place] [address] Do you have any upcoming appointments or things we need to schedule around? No Do you have a teachable CG or can you manage your care independently? Yes Who? family Allergies As of Date: 07/01/2024 Noted Allergy Reaction NORCO (HYDROCODONE-ACETAMINO PHEN) 10/24/2020 14 - Other: See Comments Comments: Weird dreams. Date Reviewed: 07/01/2024 Reviewed by: Pattie Leong RN - Fully Assessed Reason for Visit: Home Care [4073] Cmt: Confirmation Call Prescriptions as of 07/04/2024 - metoprolol succinate ER (TOPROL XL) 50 mg 24 hr tablet Take 1 tablet by mouth once daily. - apixaban (ELIQUIS) 5 mg tab(s) Take 1 tablet by mouth two times a day. - hydroCHLOROthiazide 25 mg tablet Take 1 tablet by mouth once daily. - lisinopril (ZESTRIL) 10 mg tablet Take 1 tablet by mouth once daily. - atorvastatin (LIPITOR) 10 mg tablet Take 1 tablet by mouth daily at bedtime. For cholesterol. - CPAP CPAP Supplies, All Necessary equipment including tubing and full mask ICD G47.33 - HAIR, SKIN AND NAILS, BIOTIN, ORAL Take 2 tablets by mouth once daily. - ascorbic acid (VITAMIN C ORAL) Take 1 tablet by mouth once daily. - elderberry fruit (ELDERBERRY ORAL) Take 2 Doses by mouth once daily. - CPAP 30 day download for And please send chin strap Auto PAP @ 5-20 cm of water with humidification. Mask (per patient preference) optional chin strap (if indicated) , filters, tubing, humidifier and lifetime supplies. - TURMERIC ORAL Take by mouth once daily. With curcumin - Black Cohosh 40 mg tab (Mar Hold) Take 1 tablet by mouth. Take 1 tablet every other day - ferrous sulfate 325 mg (65 mg iron) tablet Take 650 mg by mouth daily with breakfast. - cholecalciferol (VITAMIN D3) 50 mcg (2,000 unit) tablet Take by mouth. - Fiber Cap Take 3 capsules by mouth once daily. - multivitamins(DAILY MULTIVITAMIN TAB) Take one(1) tablet daily. Facility-Administered Medications as of 07/04/2024 - metoprolol succinate ER 100 mg tab(s) (TOPROL XL) - dilTIAZem 90 mg tab(s) (CARDIZEM) - apixaban 2.5 mg tab(s) (ELIQUIS) - metoprolol 5 mg injection (LOPRESSOR) - atorvastatin 10 mg tab(s) (LIPITOR) - NaCl 0.9% iv flush bag - acetaminophen 1,000 mg tab(s) (TYLENOL) - oxyCODONE IR 5-10 mg tab(s) (ROXICODONE) - HYDROmorphone 0.4 mg injection (DILAUDID) - ondansetron orally disintegrating 4 mg tab(s) (ZOFRAN ODT) - ondansetron (PF) 4 mg injection (ZOFRAN) - magnesium hydroxide 400 mg/5 mL 30 mL (MOM) - bisacodyl EC 10 mg tab(s) (DULCOLAX) - aluminum-magnesium hydroxide-simethicone 200-200-20 mg/5 mL 30 mL - ferrous sulfate 325 mg tab(s) - ascorbic acid (vitamin C) 500 mg tab(s) (VITAMIN C) - senna 17.2 mg tab(s) (SENOKOT) - pantoprazole DR 40 mg tab(s) (PROTONIX) - cephALEXin 500 mg cap(s) (KEFLEX) Problem List As Of Date 07/01/2024 Noted Resolved Dermatophytosis of foot [B35.3] 02/05/2006 03/07/2015 Hereditary and idiopathic peripheral neuropathy* 10/24/2020 Hearing Loss in Left Ear [H91.92] 03/27/2009 Post-menopausal bleeding [N95.0] 11/21/2011 03/28/2016 Thickened endometrium [R93.89] 12/05/2011 03/28/2016 [place] of foot [L84] 08/17/2013 03/28/2016 Primary osteoarthritis of right hip [M16.11] 08/09/2015 Arthritis of right hip [M16.11] 08/09/2015 10/24/2020 Hyperlipidemia LDL goal <100 [E78.5] 01/18/2016 Hypertension, essential [I10] 01/02/2020 SIOBHAN on CPAP [G47.33] 01/27/2020 Obesity, Class I, BMI 30-34.9 [E66.811] 10/25/2020 Chronic kidney insufficiency, stage 3 (moderate*08/25/2023 Impaired fasting glucose [R73.01] 04/06/2023 Venous insufficiency [I87.2] 09/02/2023 Atrial flutter (HCC) [I48.92] 06/27/2024 Heart valve disease [I38] 06/27/2024 Mild pulmonary hypertension (HCC) [I27.20] 06/27/2024 S/P total right hip arthroplasty [Z96.641] 07/01/2024 Encounter Status:Closed by BHASKAR LAGOS on 07/04/24 Normal [facility] ECG COMPLETEon 07-01-2024 ECG COMPLETE Ventricular Rate : 1 45 BPM Atrial Rate : 330 BPM QRS Duration : 104 ms Q-T Interval : 290 ms QTC Calculation(Bazett) : 450 ms Calculated R [place] : -25 degrees Calculated T [place] : 13 degrees ATRIAL FIBRILLATION WITH RAPID VENTRICULAR RESPONSE INCOMPLETE RIGHT BUNDLE BRANCH BLOCK NONSPECIFIC ST AND T WAVE ABNORMALITY ABNORMAL ECG WHEN COMPARED WITH ECG OF 07-Jun-2024 13:08, NO SIGNIFICANT CHANGE WAS FOUND Confirmed by MEENA CONCEPCION MD ([id number]) on 07/01/2024 2:43:08 PM NAME : AZALEA MOTT PID : [id number] : 1950 Gender : Female Race : ORD : [id number] Procedure Date : Jul 01 2024 14:09:47 Edit Date : Jul 01 2024 14:43:09 Diagnosis: ATRIAL FIBRILLATION WITH RAPID VENTRICULAR RESPONSE INCOMPLETE RIGHT BUNDLE BRANCH BLOCK NONSPECIFIC ST AND T WAVE ABNORMALITY ABNORMAL ECG WHEN COMPARED WITH ECG OF 07-Jun-2024 13:08, NO SIGNIFICANT CHANGE WAS FOUND Confirmed by MEENA CONCEPCION MD ([id number]) on 07/01/2024 2:43:08 PM Test Reason : Arrhythmia Location : 22 : 2E 0273 Overread By : MEENA CONCEPCION MD Edited By : MEENA CONCEPCION MD Referred By : , Acquired by : [id number], Normal [facility] Magnesium SerPl-mCncon 07-01 Magnesium [Mass/Vol] 1.7 mg/dL Normal 1.7-2.3 [facility] Comment on above: Order Comment: Speci men Type: BLOOD SPECIMENOrdering Facility: [facility] Address: [address] [place] [address] Performed By: #### K 1, 04824-6, 24323-5 ####HANNA LABORATORYCLIA [id number] [address] [facility] Natriuretic peptide.B prohormone N-Terminal [Mass/Vol] 1927 pg/mL High <125 [facility] Comment on above: Order Comment: David [facility] Type: BLOOD SPECIMENOrdering Facility: [facility] Address: [address] [place] [address] Performed By: #### K 1, 57208-7, 72065-3 ####HANNA LABORATORYCLIA [id number] [address] NURSING PROGon 07-01-2024 NURSING PROG HNO ID: [id number] Author: RICKY TIRADO, JACOB Service: ? Author Type: Registered Nurse Type: Nursing Progress Note Filed: 07/01/2024 16:07 Note Text: Pt in Afib/RVR. Dr. Reyes at the bedside. Patient was placed on tele and given 5 mg IV lopressor and 50 mg PO metoprolol. Pt complains of hip pain, prn meds given. Otherwise, no other complaints. Report given to oncoming nurse. Normal [facility] POTASSIUMon 07-01-2024 Potassium [Moles/Vol] 4.4 mmol/L Normal 3.7-5.1 [facility] Comment on above: Order Comment: Speci men Type: BLOOD SPECIMENOrdering Facility: [facility] Address: [address] [place] [address] Performed By: #### K 1, 07996-3, 73646-3 ####HANNA LABORATORYCLIA [id number] [place] [id number] [facility] THERAPY NTon 07-01-2024 THERAPY NT HNO ID: [id number] Author: YAMILKA PURCELL, PT, DPT Service: Physical Therapy Author Type: Physical Therapist Type: Therapy (PT/OT/Speech/Resp) Filed: 07/01/2024 13:52 Note Text: Summary: PT tx Physical Therapy Treatment Summary SERVICE DATE: 07/01/2024 SERVICE TIME: 1238 to 1335 ROOM: [place] [address] PT 6 Clicks Score: 18 Total Joint Replacement Discharge Readiness: Cleared from Physical Therapy DISCHARGE RECOMMENDATIONS Home PT Recommended Discharge Disposition Comments: s/p R THR Anticipated Discharge Needs: Physical Assist at Home, Supervision at Home Physical Assist at Home for: Cleaning, Laundry, Meals, Shopping, Transportation, Self Care Supervision at Home due to: Other: See Comment (wet shower transfer safety) Recommended Discharge Equipment: No equipment needs anticipated ASSESSMENT Response to Therapy Interventions: Good Participation in Activities, Improved Tolerance for Activity, On-Track to Achieve Discharge Goals, Pain, Requires Additional Time to Complete Activities, Needs Frequent Redirection or Reinstruction Pt's progressing well and BP was more higher than this morning. Pt does not need more assistance than CGA (more for bed mobility and pt can sleep in a recliner chair at home) to get out of bed and SBA for transfers and ambulation with ww. PT met all goals for home going at this time and changed frequency to once a day at this time. Pt did get nauseous and vomitted during session, RN came in and offered zophran, but pt would like to try to eat lunch. Pt did well with PT and would be cleared to go home at this time, but N and V as well as lower BP limiting her progression. 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 Spouse to complete Equipment Owned: Hand Held Shower, Shower Chair, Walker- Wheeled, Rollator, Cane, [employer] Teacher, Long Handled Sponge, Elevated Toilet Seat PRIOR FUNCTIONAL LEVEL Within Functional Limits, Required Assistance Assistance Required With: Transportation Indep w/o AD, assist to don socks, drives, shops, does cooking and cleaning. Spouse and she do laundry. Manages own meds. No falls in last 6 mos, sleeps in flat bed. SUBJECTIVE Pt agrees to PT. THERAPY DIAGNOSIS Reduced mobility-other TREATMENT INTERVENTIONS Therapeutic Exercise (90201), Therapeutic Activity (87952), Gait Training (19370) Timed Code Treatment (minutes): 57 Skilled Treatment Time (minutes): 57 Therapeutic Exercise (30886) Treatment Minutes: 15 $ Therapeutic Exercise (46983) Billed Units: 1 unit Exercise Ankle Pumps (number of reps): 10 Quad Sets (number of reps): 10 Glut Sets (number of reps): 10 Heel Slides (number of reps): 10 on left and 5 on right with min assist SLR (number of reps): unable to perform on right, x 5 on left Therapeutic Activity (56758) Treatment Minutes: 30 $ Therapeutic Activity (59233) Billed Units: 2 units Gait Training (19224) Treatment Minutes: 12 $ Gait Training (50310) Billed Units: 1 unit TRAINING AND EDUCATION PROVIDED Anatomy and Impact on Deficits, Assistive Device Use, Bed Mobility, Benefits of In-Hospital Mobility, Discharge Planning, Disease Specific Education, Gait Pattern, Reduction of Deviations, Precautions/Restrictio ns, Prosthetic Use AND Skin Preservation, Role of Physical Therapy, Pre-gait Activities, Sitting Balance, Standing Balance, Transfers THERAPEUTIC SKILLS USED Activity Dosing, Assessment of Tolerance Including Vitals Response to Activity, Cues for Sequencing/Proper Technique for Activity, Cuing Verbal, Management of Critical Lines, Tubes and/or Drains, Muscle Activation Facilitation, Postural Alignment Correction FUNCTIONAL STATUS Bed Mobility Supine To Sit: Additional Information, Contact Guard Assistance with HOB elevated Sit to Supine: Additional Information sitting on EOB at end of session Scooting: Independent Transfers Sit To Stand: Stand By Assistance, Additional Information x 4 reps throughout session, verbal cues for extending right LE before transfer and hand placement Stand To Sit: Contact Guard Assistance, Additional Information cues for extending right LE forward prior to descending Bed to Chair Minimal Assistance, Additional Information Bed To Chair Transfer Type: Stepping Bed To Chair Transfer Equipment: Wheeled Walker Gait Sta (more content not included)... [facility] THERAPY NT HNO ID: [id number] Author: BUTCH DUMONT OTR/L Service: Occupational Therapy Author Type: Occupational Therapist Type: Therapy (PT/OT/Speech/Resp) Filed: 07/01/2024 11:14 Note Text: Summary: OT Eval Occupational Therapy Evaluation Summary SERVICE DATE: 07/01/2024 SERVICE TIME: 925 to 1019 ROOM: [id number] OT 6 Clicks Score: 17 Total Joint Replacement Discharge Readiness: Cleared from Occupational Therapy DISCHARGE RECOMMENDATIONS Home OT Anticipated Discharge Needs: Physical Assist at Home, Supervision at Home Physical Assist at Home for: Cleaning, Laundry, Meals, Shopping, Transportation, Self Care Supervision at Home due to: Other: See Comment (wet shower transfer safety) ASSESSMENT Response to Therapy Interventions: Good Participation in Activities, Pain, Requires Additional Time to Complete Activities, On-Track to Achieve Discharge Goals Pt typically indep for ADLs, IADLs, amb w/o AD presents with balance deficits and ROM below baseline. Educated pt on LB equipment and home going instructions. Pt will continue to benefit from OT in the home to return to PLOF. 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 Spouse to complete Equipment Owned: Hand Held Shower, Shower Chair, Walker- Wheeled, Rollator, Cane, [employer] Teacher, Long Handled Sponge, Elevated Toilet Seat PRIOR FUNCTIONAL LEVEL Within Functional Limits, Required Assistance Assistance Required With: Transportation Indep w/o AD, assist to don socks, drives, shops, does cooking and cleaning. Spouse and she do laundry. Manages own meds. No falls in last 6 mos, sleeps in flat bed. Baseline Cognition: Oriented to self, Oriented to place, Oriented to time, Oriented to situation SUBJECTIVE agreeable to tx COGNITION Responsiveness: Alert, Awake Follows Commands: 3-step Commands THERAPY DIAGNOSIS Reduced mobility-other, Decreased activities of daily living (ADL), Muscle Weakness (generalized), Unsteadiness on feet, General symptoms and signs-other TREATMENT INTERVENTIONS Evaluation, Therapeutic Activity (26945), Self Fci Management (50755) Timed Code Treatment (minutes): 39 Skilled Treatment Time (minutes): 54 TRAINING AND EDUCATION PROVIDED Bed Mobility, Benefits of In-Hospital Mobility, Command Following, Assistive Device Use, Discharge Planning, Disease Specific Education, Coping Skills/Resiliency, Expected Functional Level, Functional Mobility Involving ADLs, Grooming Tasks, Health Literacy, Identification of Systems of Support, Insight into Deficits, Lower Extremity Bathing, Lower Extremity Dressing, Positioning, Pain Management, Precautions/Restrictio ns, Role of Occupational Therapy, Safety/Judgment, Self-Efficacy, Sitting Balance to Improve Harvey with ADLs/Self-Care, Standing Balance to Improve Harvey with ADLs/Self-Care, Transfer - Bed to Chair, Transfer - Sit to Stand, Treatment Protocol, Upper Extremity Bathing, Upper Extremity Dressing THERAPEUTIC SKILLS USED Activity Dosing, Cues for Sequencing/Proper Technique for Activity, Cuing Tactile, Cuing Verbal, Decongestive Exercises, Management of Critical Lines, Tubes and/or Drains, Movement Facilitation, Physical Assist, Teach-Back for Education, Therapeutic Use of Self, Task Analysis Learning FUNCTIONAL STATUS Activities of Daily Living Assist Level Additional Information Feeding Independent Grooming Contact Guard Assistance, Additional Information in stance at sink to brush teeth and wash hair Bathing Upper Body Set Up Bathing Lower Body Moderate Assistance, Additional Information educated on use of LH sponge Dressing Upper Body Set Up Dressing Lower Body Moderate Assistance, Additional Information educated on use of LB dressing equipment Toileting Contact Guard Assistance, Additional Information for clothing mgnt at toilet Mobility Assist Level Additional Information Bed Mobility Supine To Sit: Minimal Assistance, Additional Information HOB flat, use of HR Sit to Stand Contact Guard Assistance, Additional Information increased time, cues for proper technique with RW Stand to Sit Contact Guard Assistance Bed to Chair Toilet/Commode Contact Guard Assistance, Additional Information increased time based on pain Shower Functional Mobility Contact Guard Assistance, Additional Informa (more content not included)... [facility] 06-30-2024 ALLIED HEALTH HNO ID: [id number] Author: BOBBY CHANG CT Service: Radiology Author Type: Technologist Type: Allied Health Filed: 06/30/2024 14:57 Note Text: Radiology Service Progress Note PATIENT NAME: Azalea Mott DATE OF SERVICE: June 30, 2024 TIME: 2:56 PM PATIENT IDENTITY VERIFICATION COMPLETED USING TWO (2) IDENTIFIERS: Name and Date of confirmed by identification band. FALL SCREENING: Has the patient had 2 falls in the last year or 1 fall with injury or currently using an Ambulatory Assistive Device (Walker, Cane, Wheelchair, Crutches, etc.)? No PATIENT GENDER DATA: Assigned female at . status: : No status: NO. PATIENT RELEVANT IMPLANT DATA REVIEWED: Not Applicable PATIENT PRESENTS WITH AN IMPLANTABLE OR ATTACHED CORPORATE DIRECTOR: No RADIOLOGY DEPARTMENT: General X-ray: Exam(s) Completed: Pelvis X-Ray: Pelvis General AP PERIPHERAL IV DATA: Not applicable SIGNED BY: Bobby EVERARDO Chang June 30, 2024 1:20 PM [facility] ANES POSTPROC EVALon 025 ANES POSTPROC EVAL HNO ID: [id number] Author: PARTH MARTINEZ MD Service: ? Author Type: Anesthesiologist Type: Anesthesia Postprocedure Evaluation Filed: 06/30/2024 14:08 Note Text: POST ANESTHESIA EVALUATION NOTE : 1950 Procedure Summary Date: 06/30/24 Room / Location: MA OR / MA OR Anesthesia Start: 1024 Anesthesia Stop: 1310 Procedure: ROBOTIC ASSISTED TOTAL HIP ARTHROPLASTY (see comments) (Right: Hip) Diagnosis: Primary osteoarthritis of right hip (Primary osteoarthritis of right hip [M16.11]) Surgeons: Eligio Gibbons MD Responsible Provider: Parth Martinez MD Anesthesia Type: general ASA Status: 3 Anesthesia Type: general Airway Type: ETT Last Vitals Vitals Value Taken Time BP 101/74 06/30/24 1346 Temp 36.1 ?C (97 ?F) 06/30/24 1307 Pulse 116 06/30/24 1354 Resp 12 06/30/24 1407 SpO2 100 % 06/30/24 1354 Vitals shown include unfiled device data. Post Anesthesia Patient Status Patient Evaluation: bedside. Anticipated Disposition: phase 2 then home. Neurological Status: aware and responsive. Pulmonary Status: breathing comfortably on supplemental oxygen Airway Control: returned to baseline unsupported. Cardiovascular Status: stable. Pain Management: clinically adequate Postoperative Hydration: acceptable. Intraoperative Events: no significant anesthesia events Post Operative Nausea/Vomiting Status: no significant post operative nausea or vomiting Recommendation: continue current plan of care. Anesthesia Observations No Documentation SIGNATURE: Parth Martinez MD PATIENT NAME: Azalea Mott DATE: June 30, 2024 TIME: 2:07 PM CSN: [id number] [facility] ANES PRE-OPon 06-30-2024 ANES PRE-OP HNO ID: [id number] Author: PARTH MARTINEZ MD Service: ? Author Type: Anesthesiologist Type: Anesthesia Preprocedure Evaluation Filed: 06/30/2024 10:25 Note Text: ANESTHESIOLOGY DAY OF SURGERY NOTE : 1950 Procedure Information Anesthesia Start Date/Time: 06/30/24 1024 Procedure: ROBOTIC ASSISTED TOTAL HIP ARTHROPLASTY (see comments) (Right: Hip) Location: [facility] OR / [facility] OR Surgeons: Eligio Gibbons MD Estimated body mass index is 33.67 kg/m? as calculated from the following: Height as of 06/09/24: 170.2 cm (5' 7). Weight as of 06/09/24: 97.5 kg (215 lb). Most recent hematocrit and potassium results: Hematocrit 37.9 06/07/2024 Potassium 4.0 06/07/2024 Relevant Problems ANESTHESIA (+) SIOBHAN on CPAP CARDIO (+) Atrial flutter (HCC) (+) Hypertension, essential (+) Mild pulmonary hypertension (HCC) (+) Venous insufficiency -RENAL (+) Chronic kidney insufficiency, stage 3 (moderate) (HCC) PULMONARY (+) SIOBHAN on CPAP Other (+) Primary osteoarthritis of right hip I - PHYSICAL EVALUATION AIRWAY Patient intubated: No. Tracheostomy tube not present Mallampati: II. TM distance: >3 FB. Neck ROM: full ROM without neurological symptoms. Mouth opening: adequate. Short neck: no. Thick neck: no DENTAL Dental findings: edentulous. II - ANESTHESIA PLAN ASA Score: 3 Anesthetic Plan: general Airway type: ETT The patient is not a current smoker. NPO Status: adequate Beta Jason Monitoring Plan Monitoring plan: standard ASA. Post Procedure Analgesic Plan Postoperative analgesic plan: multimodal analgesia. Informed Consent Anesthetic risks, benefits, alternatives, personnel and consent discussed: yes. Patient / Responsible Constitution Party agrees to proceed: yes Patient / Surrogate agrees to blood products: Yes DNR status not reviewed with patient and/or family prior to surgery. Significant changes in the patient condition since the History and Physical, not otherwise documented in primary service progress note: no. Potential Anesthesia issues that may suggest increased risk of complications or contraindication to planned procedure: none. No vitals data found for the desired time range. Facility-Administered Medications as of 06/30/2024 Medication Dose Route Frequency [COMPLETED] acetaminophen 650 mg tab(s) (TYLENOL) 650 mg ORAL Pre-Op Once [COMPLETED] celecoxib 200 mg cap(s) (CeleBREX) 200 mg ORAL Pre-Op Once scopolamine (delivers 1 mg over 3 days) 1 patch (TRANSDERM-SCOP) 1 patch TRANSDERMAL ONCE scopolamine - VERIFY patch OTHER q 8 H [START ON 07/01/2024] scopolamine - REMOVE PATCH OTHER ONCE lidocaine (PF) 10 mg/mL (1 %) 1-2 mg injection (XYLOCAINE) 0.1-0.2 mL INTRADERMAL PRN lactated ringers iv infusion 5-30 mL/hr INTRAVENOUS CONTINUOUS NaCl 0.9% iv flush bag 20 mL INTRAVENOUS PRN ceFAZolin iv piggyback 2 g in D5W (iso-osmotic) 100 mL (ANCEF) 2 g INTRAVENOUS Pre-Op Once tranexamic acid 1,000 mg in NaCl 0.9% 100 mL (CYKLOKAPRON) 1,000 mg INTRAVENOUS Pre-Op Once tranexamic acid 1,000 mg in NaCl 0.9% 100 mL (CYKLOKAPRON) 1,000 mg INTRAVENOUS ONCE Outpatient Medications as of 06/30/2024 Medication Sig atorvastatin (LIPITOR) 10 mg tablet Take 1 tablet by mouth daily at bedtime. For cholesterol. diphenhydrAMINE-Acetam inophen (TYLENOL PM EXTRA STRENGTH) 25-500 mg tab At bedtime for sleep Black Cohosh 40 mg tab Take 1 tablet by mouth. Take 1 tablet every other day ferrous sulfate 325 mg (65 mg iron) tablet Take 650 mg by mouth daily with breakfast. cholecalciferol (VITAMIN D3) 50 mcg (2,000 unit) tablet Take by mouth. Fiber Cap Take 3 capsules by mouth once daily. multivitamins(DAILY MULTIVITAMIN TAB) Take one(1) tablet daily. CPAP CPAP Supplies, All Necessary equipment including tubing and full mask ICD G47.33 HAIR, SKIN AND NAILS, BIOTIN, ORAL Take 2 tablets by mouth once daily. ascorbic acid (VITAMIN C ORAL) Take 1 tablet by mouth once daily. elderberry fruit (ELDERBERRY ORAL) Take 2 Doses by mouth once daily. CPAP 30 day download for And please send chin strap Auto PAP @ 5-20 cm of water with humidification. Mask (per patient preference) optional chin strap (if indicated) , filters, tubing, humidifier and lifetime supplies. TURMERIC ORAL Take by mouth once daily. With curcumin I have interviewed and examined the patient. I have reviewed the medical record and/or the pre-anesthesia evaluation, pertinent labs, and test results. This contains updated information obtained within 48 hours of Surgery/Procedure. SIGNATURE: Parth Martinez MD PATIENT NAME: Azalea Mott DATE: June 30, 2024 TIME: 10:25 AM CSN: [id number] [facility] CONSULTon 06-30-2024 CONSULT HNO ID: [id number] Author: RUPERT REYES MD Service: General Internal Medicine Author Type: Physician Type: Consults Filed: 07/10/2024 17:34 Note Text: [facility]- Consultation AZALEA MOTT : 1950 AGE: 74 SEX: F ACCTNUM: [id number] [facility]: [facility] LOCATION: [facility] ATTENDING PHYSICIAN: ELIGIO GIBBONS DATE OF SERVICE: 06/30/2024 TIME OF SERVICE: 04:04 PM REASON FOR CONSULTATION: Medical management. HISTORY: This is a 74-year-old female, whose significant medical history includes osteoarthritis; obstructive sleep apnea, on CPAP; CKD stage 3; hypertension; hyperlipidemia; aflutter; obesity class 1; valvular heart disease; and mild pulmonary hypertension. Patient underwent elective right total hip arthroplasty under general anesthesia. Patient had uneventful intraoperative course. Estimated blood loss 300 mL. Patient did have nausea and one episode of emesis during first round of physical therapy. Therapy was discontinued and patient was placed on the bed. During initial evaluation, alert and oriented. No shortness of breath, palpitation, pleuritic chest pain. PAST MEDICAL HISTORY: As mentioned above. PAST SURGICAL HISTORY: Endoscopy, cholecystectomy, left mastoidectomy. FAMILY HISTORY: Positive for asthma, hypertension, diabetes, and COPD. Father had non-Hodgkin lymphoma. SOCIAL HISTORY: Does not smoke or drink alcohol. MEDICATIONS: Her current home medication list reviewed. ALLERGIES: She is allergic to [place], caused weird dreams. REVIEW OF SYSTEMS: HEENT/Neck: No history of glaucoma, TIA, or CVA. No history of seizure disorder. No history of Parkinson disease. History of obstructive sleep apnea, on CPAP. No history of COPD. No history of recent pulmonary infection. History of aflutter, hypertension, hyperlipidemia. No history of syncope. No history of bleeding peptic ulcer disease, hepatitis, or colitis. Good appetite and fairly regular bowel movement. No history of chronic dysuria, hematuria. Does have a history of CKD stage IIIA. No history of diabetes or hypothyroidism. No history of DVTs, paresthesia of feet, or bleeding diathesis. PHYSICAL EXAM: General: Elderly female, who is alert and oriented. HEENT/Neck: Sclerae anicteric. No thyromegaly appreciated. Oral mucosa dry. JVP is flat. Lungs: Clear to auscultation bilaterally. No wheezing or rales present. Cardiovascular: S1, S2. Regular rhythm. No murmur, gallop, or rub appreciated. Abdomen: Soft, nontender, nondistended. No mass felt. Lower Extremities: No ankle edema noted. IMPRESSION: 1. Osteoarthritis, status post right total hip arthroplasty. Deep venous thrombosis prophylaxis with apixaban. 2. Hyperlipidemia. Continue statins. 3. Atrial flutter. Remains sinus. Continue metoprolol and apixaban. 4. Obstructive sleep apnea. Resume her home CPAP. 5. Chronic kidney disease stage IIIA. Avoid nephrotoxins drugs. 6. Hypertension, stable. 7. Hold other medications for now. Thank you very much for kind referral. Continue to follow her while she is in the hospital. Rupert Reyes M.D. Internal Medicine YEIMI:[id number] /[id number] [facility] OPERATIVE NOon 06-30-2024 OPERATIVE NO HNO ID: [id number] Author: ELIGIO GIBBONS MD Service: Orthopaedic Surgery Author Type: Physician Type: Operative Report Filed: 06/30/2024 12:22 Note Text: PATIENT NAME: Azalea Mott CSN: [id number] LOG ID: [id number] Surgery Date: 06/30/2024 Surgeon(s) and Pizza Cook(s): Surgeons and Role: * Eligio Gibbons MD - Primary * Alexandrea Rios MD - Resident - Assisting Honey Johnson - Assisting Mishel Rubio -Assisting 22 modifier none BMI: Estimated body mass index is 33.67 kg/m? as calculated from the following: Height as of 06/09/24: 170.2 cm (5' 7). Weight as of 06/09/24: 97.5 kg (215 lb). Procedure(s): Procedure(s) (LRB): ROBOTIC ASSISTED TOTAL HIP ARTHROPLASTY (see comments) (Right) Anesthesia: General Incision Start: 11:00 AM Incision Stop: 12:40 PM Attestation: I was present for and performed all critical portions of the case. Residents were present and necessary for safe patient positioning, sterile prepping and draping, assistance, positioning and protection, soft tissue retraction, protection of vital structures and suture management during the case, and superficial wound closure. Also critical for safe transit to the recovery room in stable condition. Preop Diagnosis: Pre-Op Diagnosis Codes: * Primary osteoarthritis of right hip [M16.11] Postop Diagnosis: Same as Pre-Op Diagnosis Codes: * Primary osteoarthritis of right hip [M16.11] Implants: [place] Trident II 50mm cup, 36mm neutral liner, Accolade II 5 HO 36 +0 Problem List: ACTIVE PROBLEM LIST Hearing Loss in Left Ear Primary Osteoarthritis of Right Hip Hyperlipidemia Ldl Goal <100 Hypertension, Essential Siobhan On Cpap Obesity, Class I, Bmi 30-34.9 Chronic Kidney Insufficiency, Stage 3 (Moderate) (Hcc) Impaired Fasting Glucose Venous Insufficiency Atrial Flutter (Hcc) Heart Valve Disease Mild Pulmonary Hypertension (Hcc) OPERATIVE INDICATIONS: The patient has a history of progressive right hip pain and arthritis. Their hip pain is severe with activity and has progressed significantly over time . X-rays reveal [id number] loss of articular cartilage of the hip with osteophytes consistent with advanced hip osteoarthritis. Non-operative treatment has been attempted, but is now ineffective at controlling symptoms during normal daily activities. Motion has become limited and rotation severely restricted. A total hip arthroplasty was recommended at this time. The risks, benefits and potential complications of the arthroplasty surgery were discussed with the patient in detail. Specific details of the procedure, hospitalization, recovery, rehabilitation, and long-term precautions were also provided. Pre-operative teaching was provided. Implant/prosthesis selection was outlined, and the many options available were explained; the final choice will be made at the time of the procedure to match the anatomy and condition of the bone, ligaments, tendons, and muscles. Understanding of all topics was conveyed to me by the patient, and consent was given to proceed with a right total hip arthroplasty. The patient was evaluated medically for pre-operative optimization. Lyndsey-operative blood management and the potential for blood transfusion were discussed with risks and options clearly outlined. OPERATIVE PROCEDURE: The patient was identified and brought into the Operating Room by the anesthesia and nursing team. Satisfactoryl anesthesia was successfully performed. Intravenous antibiotic prophylaxis dosing was confirmed. The patient was then positioned in the lateral decubitus position with the assistance of a pegboard. An axillary roll was placed, and all other pressure points were checked and padded. The hip was then examined and restrictions noted. A relative leg length assessment was carried out. The leg was then prepped and draped in the usual sterile fashion. We reviewed the operative template according to the CT scan and navigation screen on the robotic device. We assessed an altered cup size and position, stem size and position, as well as possible areas of impingement in changes to her leg length and offset. Once satisfied we confirmed the plan is appropriate. A surgical time-out was performed immediately preceding the incision with all personnel in the operating room; the patient identity was again confirmed, the surgical site and extremity were identified and confirmed, X-rays were reviewed, and availability of the appropriate surgical equipment was established. 3 small poke incisions were made over the iliac crest. The 3 robotic array pins were placed individually, each via palpation, feeling the bone anteriorly and posteriorly, and then directing the pain in the middle of the iliac crest. The rate was then placed on the pens, snapping to bone, and firmly tightened. We confirmed that the robot was able to see this. The hip was then expos (more content not included)... [facility] Pathology biopsy report You (Tiss)on 06-30-2024 AP DISCLAIMER [facility] Comment on above: Order Comment: Speci men Type: TISSUE SPECIMENOrdering Facility: [facility] Address: [address] [place] [address] Result Comment: Odette toro Developed Test (LDT) Disclaimer: Performance characteristics of immunohistochemical, immunofluorescent, and chromogenic in-situ hybridization tests have been determined by the performing laboratory within [facility]'s [facility] Pathology and Laboratory Medicine Department ([facility], [facility], [facility], [facility], [facility], [facility], or [facility]) in a manner consistent with CLIA requirements. One or more of these tests may not have been cleared or approved by the FDA. [facility] is regulated under CLIA as qualified to perform high-complexity testing. These tests are used for clinical purposes. These should not be regarded as investigational or for research. Positive and negative controls stain appropriately. Performed By: #### 6 6121-5 ####[facility] LABORATORYCLIA [id number] [facility] 3, [address] [place] [address], [facility] LABCLIA [id number] [address] [place] [address] [place] OF AKI CASE REPORT [facility] Comment on above: Order Comment: Speci men Type: TISSUE SPECIMENOrdering Facility: [facility] Address: [address] [place] [address] Result Comment: Surg ical Pathology Report Case: [id number] Authorizing Provider: Eligio Gibbons, Collected: 06/30/2024 11:12 AM Ordering Location: [facility] Surgery Received: 06/30/2024 01:23 PM Pathologist: Trey Jean-Baptiste MD Specimen: Femoral Head, Right Performed By: #### 6 6121-5 ####[facility] LABORATORYCLIA [id number] [place] [address], [address] [place] [address] LABCLIA [id number] [address] [place] [address] [place] CLINICAL HISTORY [facility] Comment on above: Order Comment: Speci men Type: TISSUE SPECIMENOrdering Facility: [facility] Address: [address] [place] [address] Result Comment: Pre- op diagnosis: Primary osteoarthritis of right hip [M16.11] Performed By: #### 6 6121-5 ####[facility] LABORATORYCLIA [id number] [facility] 3, [address] [place], [place] [id number] [facility] LABCLIA [id number] [address] [place] [address] [facility] OF AKI FINAL DIAGNOSIS [facility] Comment on above: Order Comment: Speci men Type: TISSUE SPECIMENOrdering Facility: [facility] Address: [address] [place] [address] Result Comment: A. F emoral head, right, arthroplasty: - Degenerative joint disease. - Abundant subsynovial adipose tissue. at 1143 EDT Performed By: #### 6 6121-5 ####[facility] LABORATORYCLIA [id number] [facility] 3, [address] [place] [id number] [facility] LABCLIA [id number] [address] FINAL PERFORMING LAB [facility] Comment on above: Order Comment: Speci men Type: TISSUE SPECIMENOrdering Facility: [facility] Address: [address] [place] [address] Result Comment: Diag nostic interpretation performed at: [facility], [facility], Building 3[address] [place] [address] CLIA# [id number] Heavy Truck Mechanic: Trey Jean-Baptiste MD Performed By: #### 6 6121-5 ####[facility] LABORATORYCLIA [id number] [facility] 3, [address] LABCLIA [id number] [address] GROSS DESCRIPTION [facility] Comment on above: Order Comment: Speci men Type: TISSUE SPECIMENOrdering Facility: [facility] Address: [address] [place] [address] Result Comment: Aminta forresterral Head, Right Received in formalin labeled femoral head, right is a femoral head and neck, measuring 5.8 x 5.0 x 4.8 cm. The articular surface shows areas of eburnation and extensive roughening of the cartilage. Multiple osteophytes are present. Sectioning reveals firm, trabecular bone underlying the areas of eburnation. Subchondral cysts are not present. Minimal attached soft tissue is present. Technical Consultant sections are submitted as follows: A1: Soft tissue A2: Eburnated and noneburnated femoral head, following decalcification in formic acid HMZ 07/01/24 10:18 AM Gross examination performed at [facility], [address] [place] [address] [place] [address] Performed By: #### 6 6121-5 ####[facility] LABORATORYCLIA [id number] [address] STATES OF [facility] LABCLIA [id number] [place] [address] THERAPY NTon 06-30-2024 THERAPY NT HNO ID: [id number] Author: DOYLE DAWKINS PT Service: Physical Therapy Author Type: Physical Therapist Type: Therapy (PT/OT/Speech/Resp) Filed: 06/30/2024 16:38 Note Text: Summary: PT evaluation Physical Therapy Evaluation Summary SERVICE DATE: 06/30/2024 SERVICE TIME: 1513 to 1557 ROOM: [place] [address] PT 6 Clicks Score: 16 Total Joint Replacement Discharge Readiness: Pending Physical Therapy Clearance DISCHARGE RECOMMENDATIONS Home PT Recommended Discharge Disposition Comments: Patient with new onset of pain, weakness, limited activity tolerance, impaired safety awareness and limited ROM, causing her to require assistance and placing her at a risk of falls. Home health PT is indicated to address her impairments and promote return to prior level of independence and mobility. Anticipated Discharge Needs: Physical Assist at Home, Supervision at Home, Family Training Physical Assist at Home for: Cleaning, Laundry, Meals, Self Care, Shopping, Transportation, Safety Supervision at Home due to: Decreased safety awareness Recommended Discharge Equipment: No equipment needs anticipated ASSESSMENT Response to Therapy Interventions: Good Participation in Activities, Improved Tolerance for Activity, On-Track to Achieve Discharge Goals, Pain, Requires Additional Time to Complete Activities, Needs Frequent Redirection or Reinstruction Patient functioning below baseline, requiring CGA/Phil with a wheeled walker for mobility. Treatment limited by nausea and episode of emesis with RN notified and patient returned to bed. No reports of nausea at end of PT session. 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 Spouse to complete Equipment Owned: Hand Held Shower, Shower Chair, Walker- Wheeled, Rollator, Cane, [employer] Industrial [employer] Teacher, Long Handled Sponge, Elevated Toilet Seat PRIOR FUNCTIONAL LEVEL Within Functional Limits, Required Assistance Assistance Required With: Transportation Indep without device with all mobility, ADL and IADL tasks. Spouse assists with transportation. Denies falls in the last 6 months. SUBJECTIVE Patient resting in bed upon approach. reluctant but agreeable to PT evaluation. THERAPY DIAGNOSIS Reduced mobility-other, Muscle Weakness (generalized) TREATMENT INTERVENTIONS Evaluation, Therapeutic Activity (11894), Gait Training (33517) Timed Code Treatment (minutes): 29 Skilled Treatment Time (minutes): 44 $ Evaluation-Low (71024) Billed Units: 1 unit Therapeutic Activity (94737) Treatment Minutes: 23 $ Therapeutic Activity (93999) Billed Units: 2 units Gait Training (83968) Treatment Minutes: 6 $ Gait Training (35478) Billed Units: 0 units TRAINING AND EDUCATION PROVIDED Advanced Balance Activities, Assistive Device Use, Bed Mobility, Benefits of In-Hospital Mobility, Discharge Planning, Energy Conservation, Expected Functional Level, Falls Prevention, Gait Pattern, Reduction of Deviations, Home Safety, Precautions/Restrictio ns, Pre-gait Activities, Role of Physical Therapy, Standing Balance, Transfers, Positioning THERAPEUTIC SKILLS USED Activity Dosing, Assessment of Tolerance Including Vitals Response to Activity, Cues for Sequencing/Proper Technique for Activity, Cuing Tactile, Cuing Verbal, Facilitation of Joint Range of Motion, Movement Facilitation, Physical Assist, Postural Alignment Correction, Management of Critical Lines, Tubes and/or Drains FUNCTIONAL STATUS Bed Mobility Supine To Sit: Additional Information, Minimal Assistance Patient educated on hip precautions including no hip flexion past 90 degrees, no adduction past midline, and no twisting/rotation. bed mob with cues for positioning to maintain hip precautions. Phil to RLE. Increased time to complete Sit to Supine: Minimal Assistance, Additional Information cues for set-up and positioning with Phil to RLE. Scooting: Minimal Assistance, Additional Information From seated position, anterior with cues for surgical limb anterior to increase hip angle and maintain precautions. Increased time to complete. Transfers Sit To Stand: Minimal Assistance, Contact Guard Assistance, Additional Information Cues for surgical limb anteiror and safe hand placement to maintain hip precautions and promote decreased pain. Phil for initial 2 attempts from elevated EOB. progress (more content not included)... [facility] XR PELVIS 1V APon 06-30-2024 XR PELVIS 1V AP * * *Final Report* * * DATE OF EXAM: Jun 30 2024 1:15PM MDX 5239 - XR PELVIS 1V AP / PROCEDURE REASON: Post-operative / post-procedure assessment * * * * Physician Interpretation * * * * EXAMINATION: XR PELVIS 1V AP PATIENT/TECHNOLOGIST PROVIDED HISTORY: POST OP RIGHT THR POST OP RIGHT THR CLINICAL INFORMATION: 74 years old Female with Post-operative / post-procedure assessment TECHNIQUE: XR PELVIS 1V AP Laterality: NOT APPLICABLE Number of different views (projections): 1 COMPARISON: Radiographs 01/27/2024 2 RESULT: New RIGHT total hip arthroplasty in satisfactory alignment and position. No periprosthetic fracture or dislocation. Expected postoperative soft tissue emphysema. Moderate LEFT hip osteoarthritis. Degenerative changes at the pubic symphysis. IMPRESSION: New RIGHT total hip arthroplasty without complication. Study Director: PSCB Transcribe Date/Time: Jun 30 2024 1:44P Dictated by : DEAN WALLACE DO This examination was interpreted and the report reviewed and electronically signed by: DEAN WALLACE DO on Jun 30 2024 1:47PM EST [id number] [facility] [place] [facility] 06-28-2024 [facility] Tele[facility] AZALEA MOTT ([id number]) 1950 F Date Time Provider Department 06/28/24 ONEL BETHEA During your visit today, we recorded the following information about you: Bernarda Dubon Emma Yobani 06/28/2024 10:58 AM Signed Patient is scheduled for surgery on at [facility]. She has the early start of a fever blister on her upper lip. She gets these when she is stressed. She immediately started putting Carmex on it. She is hoping that this will not stop her from having surgery. She can be reached at [phone]. Yobani Eganjones Med [place] Julisajones Med Sedc Yobani 06/28/2024 11:06 AM Signed Aye, this should have been sent to your team. Yobani Menchaca Med Sedyue Julisaetta Med Sedc, Yobani 06/28/2024 2:17 PM Signed Eligio Gibbons MD You; Sandro Escobar RN; Jamal Gr PA-C1 hour ago (12:54 PM) Nope just depends what it looks like on the day of surgery Bernarda Dubon Sedc, Yobani 06/28/2024 2:17 PM Signed Patient called and notified of physician's response. She stated that it already looks better. She will continue to use the topical Carmex but she just wanted to keep us informed. She will call if she has any other questions or concerns. Yobani Dubon Sedc Allergies As of Date: 06/28/2024 Noted Allergy Reaction NORCO (HYDROCODONE-ACETAMINO PHEN) 10/24/2020 14 - Other: See Comments Comments: Weird dreams. Date Reviewed: 06/09/2024 Reviewed by: Florida Vázquez MA - Fully Assessed Reason for Visit: Patient Question [7304] Prescriptions as of 06/28/2024 - metoprolol succinate ER (TOPROL XL) 50 mg 24 hr tablet Take 1 tablet by mouth once daily. - apixaban (ELIQUIS) 5 mg tab(s) Take 1 tablet by mouth two times a day. - hydroCHLOROthiazide 25 mg tablet Take 1 tablet by mouth once daily. - lisinopril (ZESTRIL) 10 mg tablet Take 1 tablet by mouth once daily. - atorvastatin (LIPITOR) 10 mg tablet Take 1 tablet by mouth daily at bedtime. For cholesterol. - CPAP CPAP Supplies, All Necessary equipment including tubing and full mask ICD G47.33 - HAIR, SKIN AND NAILS, BIOTIN, ORAL Take 2 tablets by mouth once daily. - diphenhydrAMINE-Acetam inophen (TYLENOL PM EXTRA STRENGTH) 25-500 mg tab At bedtime for sleep - ascorbic acid (VITAMIN C ORAL) Take 1 tablet by mouth once daily. - elderberry fruit (ELDERBERRY ORAL) Take 2 Doses by mouth once daily. - CPAP 30 day download for And please send chin strap Auto PAP @ 5-20 cm of water with humidification. Mask (per patient preference) optional chin strap (if indicated) , filters, tubing, humidifier and lifetime supplies. - TURMERIC ORAL Take by mouth once daily. With curcumin - Black Cohosh 40 mg tab Take 1 tablet by mouth. Take 1 tablet every other day - ferrous sulfate 325 mg (65 mg iron) tablet Take 650 mg by mouth daily with breakfast. - cholecalciferol (VITAMIN D3) 50 mcg (2,000 unit) tablet Take by mouth. - Fiber Cap Take 3 capsules by mouth once daily. - multivitamins(DAILY MULTIVITAMIN TAB) Take one(1) tablet daily. Problem List As Of Date 06/28/2024 Noted Resolved Dermatophytosis of foot [B35.3] 02/05/2006 03/07/2015 Hereditary and idiopathic peripheral neuropathy* 10/24/2020 Hearing Loss in Left Ear [H91.92] 03/27/2009 Post-menopausal bleeding [N95.0] 11/21/2011 03/28/2016 Thickened endometrium [R93.89] 12/05/2011 03/28/2016 Chester of foot [L84] 08/17/2013 03/28/2016 Primary osteoarthritis of right hip [M16.11] 08/09/2015 Arthritis of right hip [M16.11] 08/09/2015 10/24/2020 Hyperlipidemia LDL goal <100 [E78.5] 01/18/2016 Hypertension, essential [I10] 01/02/2020 SIOBHAN on CPAP [G47.33] 01/27/2020 Obesity, Class I, BMI 30-34.9 [E66.811] 10/25/2020 Chronic kidney insufficiency, stage 3 (moderate*08/25/2023 Impaired fasting glucose [R73.01] 04/06/2023 Venous insufficiency [I87.2] 09/02/2023 Atrial flutter (HCC) [I48.92] 06/27/2024 Heart valve disease [I38] 06/27/2024 Mild pulmonary hypertension (HCC) [I27.20] 06/27/2024 Encounter Status:Closed by YOBANI ZIMMERMAN on 06/28/24 [facility] 06-27-2024 CNPN Telephone ([facility]) AZALEA MOTT ([id number]) 1950 F Date Time Provider Department 06/27/24 ELIGIO GIBBONS ORERNESTO During your visit today, we recorded the following information about you: Yobani Zimmerman 06/27/2024 10:19 AM Signed Patient is scheduled for surgery on this coming up . She was placed on 2 new medications by her gold assayer. She is not sure if she should hold these or continue on them. She would like a call back. She can be reached at [phone]. Sandro Hardy, RN 06/27/2024 10:58 AM Signed Patient needs to hold eliquis 3 days prior to surgery Thanks [place] Attempted to call patient. No answer. Voicemail picked up and then dropped call- unable to leave message. Sent [employer] message. Allergies As of Date: 06/27/2024 Noted Allergy Reaction NORCO (HYDROCODONE-ACETAMINO PHEN) 10/24/2020 14 - Other: See Comments Comments: Weird dreams. Date Reviewed: 06/09/2024 Reviewed by: Florida Vázquez MA - Fully Assessed Reason for Visit: Patient Question [[id number]] Cmt: Medication question Prescriptions as of 06/27/2024 - metoprolol succinate ER (TOPROL XL) 50 mg 24 hr tablet Take 1 tablet by mouth once daily. - apixaban (ELIQUIS) 5 mg tab(s) Take 1 tablet by mouth two times a day. - hydroCHLOROthiazide 25 mg tablet Take 1 tablet by mouth once daily. - lisinopril (ZESTRIL) 10 mg tablet Take 1 tablet by mouth once daily. - atorvastatin (LIPITOR) 10 mg tablet Take 1 tablet by mouth daily at bedtime. For cholesterol. - CPAP CPAP Supplies, All Necessary equipment including tubing and full mask ICD G47.33 - HAIR, SKIN AND NAILS, BIOTIN, ORAL Take 2 tablets by mouth once daily. - diphenhydrAMINE-Acetam inophen (TYLENOL PM EXTRA STRENGTH) 25-500 mg tab At bedtime for sleep - ascorbic acid (VITAMIN C ORAL) Take 1 tablet by mouth once daily. - elderberry fruit (ELDERBERRY ORAL) Take 2 Doses by mouth once daily. - CPAP 30 day download for And please send chin strap Auto PAP @ 5-20 cm of water with humidification. Mask (per patient preference) optional chin strap (if indicated) , filters, tubing, humidifier and lifetime supplies. - TURMERIC ORAL Take by mouth once daily. With curcumin - Black Cohosh 40 mg tab Take 1 tablet by mouth. Take 1 tablet every other day - ferrous sulfate 325 mg (65 mg iron) tablet Take 650 mg by mouth daily with breakfast. - cholecalciferol (VITAMIN D3) 50 mcg (2,000 unit) tablet Take by mouth. - Fiber Cap Take 3 capsules by mouth once daily. - multivitamins(DAILY MULTIVITAMIN TAB) Take one(1) tablet daily. Problem List As Of Date 06/27/2024 Noted Resolved Dermatophytosis of foot [B35.3] 02/05/2006 03/07/2015 Hereditary and idiopathic peripheral neuropathy* 10/24/2020 Hearing Loss in Left Ear [H91.92] 03/27/2009 Post-menopausal bleeding [N95.0] 11/21/2011 03/28/2016 Thickened endometrium [R93.89] 12/05/2011 03/28/2016 Chester of foot [L84] 08/17/2013 03/28/2016 Primary osteoarthritis of right hip [M16.11] 08/09/2015 Arthritis of right hip [M16.11] 08/09/2015 10/24/2020 Hyperlipidemia LDL goal <100 [E78.5] 01/18/2016 Hypertension, essential [I10] 01/02/2020 SIOBHAN on CPAP [G47.33] 01/27/2020 Obesity, Class I, BMI 30-34.9 [E66.811] 10/25/2020 Chronic kidney insufficiency, stage 3 (moderate*08/25/2023 Impaired fasting glucose [R73.01] 04/06/2023 Venous insufficiency [I87.2] 09/02/2023 Atrial flutter (HCC) [I48.92] 06/27/2024 Heart valve disease [I38] 06/27/2024 Mild pulmonary hypertension (HCC) [I27.20] 06/27/2024 Encounter Status:Closed by SANDRO ESCOBAR on 06/27/24 [facility] 06-24-2024 JOHN Telephone ([facility]) AZALEA MOTT ([id number]) 1950 F Date Time Provider Department 06/24/24 STEPHON MAURER During your visit today, we recorded the following information about you: Stephon Maurer APRN.CNP 06/24/2024 7:38 AM Signed Ishan, I saw this mutual patient in [facility] on 06/07/2024. Azalea Mott 1950 [id number] is scheduled for ROBOTIC ASSISTED TOTAL HIP ARTHROPLASTY with Dr. Gibbons on 06/30/2024. You were able to see this patient in office for preop eval with pending ECHO and Stress Test. Is this patient optimized from a cardiac standpoint? ECHO (06/23/2024 7:15 AM) NM CARDIAC PERF STRESS/PHARM (06/23/2024 10:09 AM) Thank you, Stephon Maurer APRN.Stephno العراقي APRN.KYAW 06/27/2024 10:01 AM Signed Ishan, I saw this mutual patient in [facility] on 06/07/2024. Azalea Mott 1950 [id number] is scheduled for ROBOTIC ASSISTED TOTAL HIP ARTHROPLASTY with Dr. Gibbons on 06/30/2024. Is this patient OK to hold Eliquis 3 days prior to procedure? She took her last does yesterday night in preparation for surgery. I was able to see your optimization in note to patient. Stephon Maurer APRN.Taty Ulloa MD 06/29/2024 6:19 PM Signed May hold eliquis prior to surgery according to the surgical team's recommendation and resume as soon as deemed safe from the surgeon's perspective. Allergies As of Date: 06/24/2024 Noted Allergy Reaction NORCO (HYDROCODONE-ACETAMINO PHEN) 10/24/2020 14 - Other: See Comments Comments: Weird dreams. Date Reviewed: 06/09/2024 Reviewed by: Florida Vázquez MA - Fully Assessed Reason for Visit: Preparations For Surgery [898] Prescriptions as of 06/30/2024 - metoprolol succinate ER (TOPROL XL) 50 mg 24 hr tablet Take 1 tablet by mouth once daily. - apixaban (ELIQUIS) 5 mg tab(s) Take 1 tablet by mouth two times a day. - hydroCHLOROthiazide 25 mg tablet Take 1 tablet by mouth once daily. - lisinopril (ZESTRIL) 10 mg tablet Take 1 tablet by mouth once daily. - atorvastatin (LIPITOR) 10 mg tablet Take 1 tablet by mouth daily at bedtime. For cholesterol. - CPAP CPAP Supplies, All Necessary equipment including tubing and full mask ICD G47.33 - HAIR, SKIN AND NAILS, BIOTIN, ORAL Take 2 tablets by mouth once daily. - diphenhydrAMINE-Acetam inophen (TYLENOL PM EXTRA STRENGTH) 25-500 mg tab At bedtime for sleep - ascorbic acid (VITAMIN C ORAL) Take 1 tablet by mouth once daily. - elderberry fruit (ELDERBERRY ORAL) Take 2 Doses by mouth once daily. - CPAP 30 day download for And please send chin strap Auto PAP @ 5-20 cm of water with humidification. Mask (per patient preference) optional chin strap (if indicated) , filters, tubing, humidifier and lifetime supplies. - TURMERIC ORAL Take by mouth once daily. With curcumin - Black Cohosh 40 mg tab Take 1 tablet by mouth. Take 1 tablet every other day - ferrous sulfate 325 mg (65 mg iron) tablet Take 650 mg by mouth daily with breakfast. - cholecalciferol (VITAMIN D3) 50 mcg (2,000 unit) tablet Take by mouth. - Fiber Cap Take 3 capsules by mouth once daily. - multivitamins(DAILY MULTIVITAMIN TAB) Take one(1) tablet daily. Facility-Administered Medications as of 06/30/2024 - scopolamine (delivers 1 mg over 3 days) 1 patch (TRANSDERM-SCOP) - scopolamine - VERIFY patch - scopolamine - REMOVE PATCH - lidocaine (PF) 10 mg/mL (1 %) 1-2 mg injection (XYLOCAINE) - lactated ringers iv infusion - NaCl 0.9% iv flush bag - tranexamic acid 1,000 mg in NaCl 0.9% 100 mL (CYKLOKAPRON) - tranexamic acid 1,000 mg in NaCl 0.9% 100 mL (CYKLOKAPRON) - lactated ringers iv infusion - fentaNYL 50 mcg/mL injection (SUBLIMAZE) - lidocaine HCl (PF) 20 mg/mL (2 %) injection - propofol injection (DIPRIVAN) - rocuronium injection - ondansetron (PF) injection (ZOFRAN) - HYDROmorphone (PF) injection (DILAUDID) - propofol infusion (DIPRIVAN) - tranexamic acid (CYKLOKAPRON) in NaCl 0.7% - esmolol injection (BREVIBLOC) - hydrALAZINE injection (APRESOLINE) - MEDICATION, NON-DATABASE - NaCl 0.9% irrigation bag Problem List As Of Date 06/24/2024 Noted Resolved Dermatophytosis of foot [B35.3] 02/05/2006 03/07/2015 Hereditary and idiopathic peripheral neuropathy* 10/24/2020 Hearing Loss in Left Ear [H91.92] 03/27/2009 Post-menopausal bleeding [N95.0] 11/21/2011 03/28/2016 Thickened endometrium [R93.89] 12/05/2011 03/28/2016 Chester of foot [L84] 08/17/2013 03/28/2016 Primary osteoarthritis of right hip [M16.11] 08/09/2015 Arthritis of right hip [M16.11] 08/09/2015 10/24/2020 Hyperlipidemia LDL goal <100 [E78.5] 01/18/2016 Hypertension, essential [I10] 01/02/2020 SIOBHAN on CPAP [G47.33] 01/27/2020 Obesity, Class I, BMI 30-34.9 [E66.811] 10/25/2020 Chronic kidney insufficiency, stage 3 (moderate*08/25/2023 Impaired fasting glucose [R73.01] 04/06/2023 Venous insufficiency [I87.2] more content not included)... Normal [facility] ECHOon 06-23-2024 Echocardiography Echocardiography Report: Transthoracic Echo [facility] Date of service: 06/23/2024 7:15:55 AM Ordering physician: TATY HIDALGO Indication: a-fib Technologist: Roxanne Gray RDCS Interpreting physician: Homero Avila MD PATIENT: Name: MRS. AZALEA MOTT : 1950 Age: 74 years Gender: F History of chronic kidney disease, hypertension and dyslipidemia. Primary rhythm: sinus. Height: 170.18 cm BSA: 2.15 m Weight: 97.52 kg BMI: 33.7 kg/m Heart rate 54 bpm Blood pressure 118/87 mmHg Color Doppler was utilized to interrogate the cardiac valves assessed and spectral Doppler was utilized to determine the flow velocities and pressure gradients reported in this exam. Myocardial strain analysis was performed in this exam to aid in the assessment of cardiac function. MEASUREMENTS: Value Indexed Normal Max aortic dimension 2.5 cm Ao < 3.8 Left atrium diameter 3.7 cm (2D) Left atrial volume 65 ml (biplane A-L) 30 ml/m Oscar <= 34 LV ID (diastole) 5.3 cm (2D) 2.49 cm/m LV ID (systole) 3.0 cm (2D) 1.42 cm/m IVS, leaflet tips 0.9 cm (2D) Posterior wall thickness 0.9 cm (2D) Left ventricular mass 176 g (2D) 82 g/m Global peak long strain -20.8 % LV stroke volume 61 ml (2D biplane) LV end diastolic volume 96 ml (2D biplane) 44.9 ml/m 29<=EDVi<62 LV end systolic volume 35 ml (2D biplane) 16.5 ml/m Ejection Fraction 63 % (2D biplane) EF > 54 FINDINGS: LEFT VENTRICLE The left ventricle is normal in size. Left ventricular systolic function is normal. Global LV myocardial strain is normal. Grade II left ventricular diastolic dysfunction. Mitral annular lateral E/e': 7.7. Mitral annular septal E/e': 18.2. Wall Motion: All scored segments are normal. RIGHT VENTRICLE The right ventricle is normal in size. Right ventricular systolic function is normal. RV systolic tissue Doppler velocity is 12.0 cm/s. Tricuspid annular displacement is 2.4 cm. Estimated right ventricular systolic pressure is 37 mmHg consistent with mild pulmonary hypertension. Estimated right atrial pressure is 3 mmHg based on IVC assessment. LEFT ATRIUM The left atrial cavity is normal in size. RIGHT ATRIUM The right atrial cavity is normal in size. Inferior Vena Cava: The inferior vena cava appears normal measuring 1.9 cm. The vessel decreases greater than 50 percent with inspiration. MITRAL VALVE There is trace mitral valve regurgitation. There is mild thickening. There is mild calcification. The pressure half time is 56 msec. The peak mitral E/A ratio is 2.00. The mitral flow deceleration time is 194 msec. TRICUSPID VALVE There is mild (1+) tricuspid valve regurgitation. There is mild calcification. The hepatic venous pattern showed normal systolic flow. AORTIC VALVE There is no aortic valve regurgitation. Tricuspid aortic valve. There is mild calcification. The peak gradient is 8 mmHg (peak velocity = 140.0 cm/s). The LVOT diameter is 1.9 cm. PULMONIC VALVE The pulmonic valve cusps are structurally normal. There is trace pulmonic valve regurgitation. AORTA The visualized aorta is normal in size. Measurements - Aortic valve annulus 1.9 cm. Mid ascending aorta 2.5 cm. PULMONARY ARTERIES The pulmonary arteries are normal. INTERATRIAL SEPTUM There is no evidence of intracardiac shunting as detected by Doppler. INTERVENTRICULAR SEPTUM There is normal motion of the interventricular septum. PERICARDIUM There is no pericardial effusion. There is an epicardial fat pad. CONCLUSIONS: - Exam indication: a-fib - The left ventricle is normal in size. Left ventricular systolic function is normal. EF = 63 5% (2D biplane) Grade II left ventricular diastolic dysfunction. - The right ventricle is normal in size. Right ventricular systolic function is normal. - There is mild (1+) tricuspid regurgitation. - The patient has not had a prior CC echocardiographic exam for comparison. * * * Final * * * [facility] [employer] : [id number] SISUID Normal [facility] NM CARDIAC PERF STRESS/PHARM on 06-23-2024 NM CARDIAC PERF STRESS/PHARM * * *Final Report* * * DATE OF EXAM: Jun 23 2024 10:09AM MARIJA 0006 - NM CARDIAC PERF STRESS/PHARM / PROCEDURE REASON: multiple diagnoses * * * * Physician Interpretation * * * * Stress Aircraft Cabin Cleaner Report: [facility] Date of service: 06/23/2024 8:31:50 AM Supervising physician: Meena Concepcion MD PATIENT: Name: MRS. AZALEA MOTT Age: 74 years Gender: F The supervising physician was in the department and immediately available. * * * Final * * * ------ PATIENT: Name: MRS. AZALEA MOTT Age: 74 years Gender: F CONCLUSIONS: 1. SPECT Perfusion Study: Normal. 2. There is no scintigraphic evidence for inducible ischemia. 3. No evidence of scarred myocardium. 4. Left ventricle is normal in size. The left ventricle systolic function is hyperdynamic. 5. This is a low risk scan. Gated Stress IR:3D LVEF % 76 Prior Study Comparison No prior nuclear cardiology exam available for comparison. Nuclear Med Report:1-Day Gated SPECT Myocardial Perfusion with Regadenoson Stress: Myocardial perfusion imaging was performed at rest 30 minutes following the IV injection of the radiotracer. The patient received 0.4 mg of regadenoson, via rapid IV push, immediately followed by radiotracer IV. Gated post stress tomographic imaging was performed 30 to 60 minutes later. See administered radiotracer and doses below. [facility] Date of service: 06/23/2024 8:31:50 AM Ordering Physician: TATY HIDALGO. Requesting Physician: Indication: Dyspnea Interpreting physician: Clinton Merida MD Height: 170.18 cm BSA: 2.15 m? Weight: 97.52 kg BMI: 33.7 kg/m? Imaging Protocol Limitation Reason G.I. uptake. Exam Type: Rest Stress Radiopharm: Tc-99m Tetrofosmin Tc-99m Tetrofosmin Dosage(mCi): 13.4 35.8 Atten Correction: not performed not performed Stress Agent: Regadenoson 0.4mg Supply provided from [facility] Resting Blood Press: 135/62 mmHg Image Quality The overall study imaging quality was deemed to be fair. The following technical issues were noted: G.I. uptake. FINDINGS: Left Ventricle Wall Motion: Stress IR:3D - All segments are normal. Rest IR:3D - Gated Stress IR:3D - Reversibility - Stress IR:3D Stress IR:3D Gated Stress IR:3D LVEF: 76 % ED Volume: 105 ml ES Volume: 25 ml TID: 0.90 Perfusion Findings Stress IR:3D - Summed Score=0 All segments demonstrate normal perfusion. Rest IR:3D - Summed Score=0 All segments demonstrate normal perfusion. Stress IR:3D Rest IR:3D Summed Score=0 Summed Score=0 LEFT VENTRICLE The left ventricle is normal in size. Left ventricular systolic function is hyperdynamic. Right Ventricle The right ventricle is unseen or not interrogated. Stress Test Findings: There is no scintigraphic evidence for inducible ischemia. There is no evidence of scarring. * * * Final * * * ------ Stress ECG Report: [facility] Date of service: 06/23/2024 8:31:50 AM Ordering physician: TATY HIDALGO equipment mechanic specialist: Ana Sy Pizza Cook: Lori Gray Interpreting physician: Meena Concepcion MD Patient name: MRS. AZALEA MOTT Age: 74 years Gender: F Height: 170.18 cm BSA: 2.15 m? Weight: 97.52 kg BMI: 33.7 kg/m? Indication: Dyspnea on exertion Stress ECG Conclusion: Conclusion: Normal Stress ECG Summary: The patient's resting heart rate was 50 bpm and blood pressure was 135/62 mmHg. The test was terminated due to end of protocol. Other symptoms during the test included chest pain and SOB. The maximum heart rate was 76 bpm, which is 52% of the predicted heart rate for age. Peak blood pressure was 130/49 mmHg. The double product achieved was 9880. Medications: Last Used METOPROLOL ELIQUIS HYDROCHLOROTHIAZIDE LIPITOR LISINOPRIL Resting ECG: Sinus Bradycardia, RBBB and Rare PACs (<3/Min) Symptoms at rest: No symptoms Pharamcologic Protocol: Regadenoson Stress Exercise Table: +-----+--+---+---+ Stage HR SYS KHUSHI +-----+--+---+---+ 1 67 130 49 +-----+--+---+---+ 2 76 124 50 +-----+--+---+---+ 3 72 126 50 +-----+--+---+---+ 4 67 127 51 +-----+--+---+---+ 5 64 122 54 +-----+--+---+---+ 6 64 125 48 +-----+--+---+---+ 7 65 120 59 +-----+--+---+---+ 8 67 135 55 +-----+--+---+---+ +-----+--+---+---+ HR SYS KHUSHI +-----+--+---+---+ Final 76 130 49 +-----+--+---+---+ Stress Observations: Resting HR: 50 bpm Peak HR: 76 bpm (52% MPHR) Resting BP: 135 / 62 mmHg Peak BP: 130 / 49 mmHg Rate Pressure Product (RPP): 9880 Stress Exerc (more content not included)... Normal [facility] Heart Perfusion W stress and W radionuclide Peter 06-23-2024 * * *Final Report* * * DATE OF EXAM: Jun 23 2024 10:09AM MARIJA 0006 - NE CARDIAC PERF STRESS/PHARM / PROCEDURE REASON: multiple diagnoses * * * * Physician Interpretation * * * * Stress Aircraft Cabin Cleaner Report: [facility] Date of service: 06/23/2024 8:31:50 AM Supervising physician: Meena Concepcion MD PATIENT: Name: MRS. AZALEA MOTT Age: 74 years Gender: F The supervising physician was in the department and immediately available. * * * Final * * * ------ PATIENT: Name: MRS. AZALEA MOTT Age: 74 years Gender: F CONCLUSIONS: 1. SPECT Perfusion Study: Normal. 2. There is no scintigraphic evidence for inducible ischemia. 3. No evidence of scarred myocardium. 4. Left ventricle is normal in size. The left ventricle systolic function is hyperdynamic. 5. This is a low risk scan. Gated Stress IR:3D LVEF % 76 Prior Study Comparison No prior nuclear cardiology exam available for comparison. Nuclear Med Report:1-Day Gated SPECT Myocardial Perfusion with Regadenoson Stress: Myocardial perfusion imaging was performed at rest 30 minutes following the IV injection of the radiotracer. The patient received 0.4 mg of regadenoson, via rapid IV push, immediately followed by radiotracer IV. Gated post stress tomographic imaging was performed 30 to 60 minutes later. See administered radiotracer and doses below. [facility] Date of service: 06/23/2024 8:31:50 AM Ordering Physician: TATY HIDALGO. Requesting Physician: Indication: Dyspnea Interpreting physician: Clinton Merida MD Height: 170.18 cm BSA: 2.15 m Weight: 97.52 kg BMI: 33.7 kg/m Imaging Protocol Limitation Reason G.I. uptake. Exam Type: Rest Stress Radiopharm: Tc-99m Tetrofosmin Tc-99m Tetrofosmin Dosage(mCi): 13.4 35.8 Atten Correction: not performed not performed Stress Agent: Regadenoson 0.4mg Supply provided from [facility] Resting Blood Press: 135/62 mmHg Image Quality The overall study imaging quality was deemed to be fair. The following technical issues were noted: G.I. uptake. FINDINGS: Left Ventricle Wall Motion: Stress IR:3D - All segments are normal. Rest IR:3D - Gated Stress IR:3D - Reversibility - Stress IR:3D Stress IR:3D Gated Stress IR:3D LVEF: 76 % ED Volume: 105 ml ES Volume: 25 ml TID: 0.90 Perfusion Findings Stress IR:3D - Summed Score=0 All segments demonstrate normal perfusion. Rest IR:3D - Summed Score=0 All segments demonstrate normal perfusion. Stress IR:3D Rest IR:3D Summed Score=0 Summed Score=0 LEFT VENTRICLE The left ventricle is normal in size. Left ventricular systolic function is hyperdynamic. Right Ventricle The right ventricle is unseen or not interrogated. Stress Test Findings: There is no scintigraphic evidence for inducible ischemia. There is no evidence of scarring. * * * Final * * * ------ Stress ECG Report: [facility] Date of service: 06/23/2024 8:31:50 AM Ordering physician: TATY HIDALGO equipment mechanic specialist: Ana Sy Pizza Cook: Lori Gray Interpreting physician: Meena Concepcion MD Patient name: MRS. AZALEA MOTT Age: 74 years Gender: F Height: 170.18 cm BSA: 2.15 m Weight: 97.52 kg BMI: 33.7 kg/m Indication: Dyspnea on exertion Stress ECG Conclusion: Conclusion: Normal Stress ECG Summary: The patient's resting heart rate was 50 bpm and blood pressure was 135/62 mmHg. The test was terminated due to end of protocol. Other symptoms during the test included chest pain and SOB. The maximum heart rate was 76 bpm, which is 52% of the predicted heart rate for age. Peak blood pressure was 130/49 mmHg. The double product achieved was 9880. Medications: Last Used METOPROLOL ELIQUIS HYDROCHLOROTHIAZIDE LIPITOR LISINOPRIL Resting ECG: Sinus Bradycardia, RBBB and Rare PACs (<3/Min) Symptoms at rest: No symptoms Pharamcologic Protocol: Regadenoson Stress Exercise Table: +-----+--+---+---+ Stage HR SYS KHUSHI +-----+--+---+---+ 1 67 130 49 +-----+--+---+---+ 2 76 124 50 +-----+--+---+---+ 3 72 126 50 +-----+--+---+---+ 4 67 127 51 +----- (more content not included)... [facility] RADIOLOGY Provider, [facility] - 06/23/2024 * * *Final Report* * * DATE OF EXAM: Jun 23 2024 10:09AM MARIJA 0006 - NM CARDIAC PERF STRESS/PHARM / PROCEDURE REASON: multiple diagnoses * * * * Physician Interpretation * * * * Stress Aircraft Cabin Cleaner Report: [facility] Date of service: 06/23/2024 8:31:50 AM Supervising physician: Meena Concepcion MD PATIENT: Name: MRS. AAZLEA RAMIRESN: [id number] Age: 74 years Gender: F The supervising physician was in the department and immediately available. * * * Final * * * ------ PATIENT: Name: MRS. AZALEA MOTT Age: 74 years Gender: F CONCLUSIONS: 1. SPECT Perfusion Study: Normal. 2. There is no scintigraphic evidence for inducible ischemia. 3. No evidence of scarred myocardium. 4. Left ventricle is normal in size. The left ventricle systolic function is hyperdynamic. 5. This is a low risk scan. Gated Stress IR:3D LVEF % 76 Prior Study Comparison No prior nuclear cardiology exam available for comparison. Nuclear Med Report:1-Day Gated SPECT Myocardial Perfusion with Regadenoson Stress: Myocardial perfusion imaging was performed at rest 30 minutes following the IV injection of the radiotracer. The patient received 0.4 mg of regadenoson, via rapid IV push, immediately followed by radiotracer IV. Gated post stress tomographic imaging was performed 30 to 60 minutes later. See administered radiotracer and doses below. [facility] Date of service: 06/23/2024 8:31:50 AM Ordering Physician: TATY HIDALGO. Requesting Physician: Indication: Dyspnea Interpreting physician: Clinton Merida MD Height: 170.18 cm BSA: 2.15 m Weight: 97.52 kg BMI: 33.7 kg/m Imaging Protocol Limitation Reason G.I. uptake. Exam Type: Rest Stress Radiopharm: Tc-99m Tetrofosmin Tc-99m Tetrofosmin Dosage(mCi): 13.4 35.8 Atten Correction: not performed not performed Stress Agent: Regadenoson 0.4mg Supply provided from [facility] Resting Blood Press: 135/62 mmHg Image Quality The overall study imaging quality was deemed to be fair. The following technical issues were noted: G.I. uptake. FINDINGS: Left Ventricle Wall Motion: Stress IR:3D - All segments are normal. Rest IR:3D - Gated Stress IR:3D - Reversibility - Stress IR:3D Stress IR:3D Gated Stress IR:3D LVEF: 76 % ED Volume: 105 ml ES Volume: 25 ml TID: 0.90 Perfusion Findings Stress IR:3D - Summed Score=0 All segments demonstrate normal perfusion. Rest IR:3D - Summed Score=0 All segments demonstrate normal perfusion. Stress IR:3D Rest IR:3D Summed Score=0 Summed Score=0 LEFT VENTRICLE The left ventricle is normal in size. Left ventricular systolic function is hyperdynamic. Right Ventricle The right ventricle is unseen or not interrogated. Stress Test Findings: There is no scintigraphic evidence for inducible ischemia. There is no evidence of scarring. * * * Final * * * ------ Stress ECG Report: [facility] Date of service: 06/23/2024 8:31:50 AM Ordering physician: TATY HIDALGO equipment mechanic specialist: Ana Sy Pizza Cook: Lori Gray Interpreting physician: Meena Concepcion MD Patient name: MRS. AZALEA MOTT Age: 74 years Gender: F Height: 170.18 cm BSA: 2.15 m Weight: 97.52 kg BMI: 33.7 kg/m Indication: Dyspnea on exertion Stress ECG Conclusion: Conclusion: Normal Stress ECG Summary: The patient's resting heart rate was 50 bpm and blood pressure was 135/62 mmHg. The test was terminated due to end of protocol. Other symptoms during the test included chest pain and SOB. The maximum heart rate was 76 bpm, which is 52% of the predicted heart rate for age. Peak blood pressure was 130/49 mmHg. The double product achieved was 9880. Medications: Last Used METOPROLOL ELIQUIS HYDROCHLOROTHIAZIDE LIPITOR LISINOPRIL Resting ECG: Sinus Bradycardia, RBBB and Rare PACs (<3/Min) Symptoms at rest: No symptoms Pharamcologic Protocol: Regadenoson Stress Exercise Table: +-----+--+---+---+ Stage HR SYS KHUSHI +-----+--+---+---+ 1 67 130 49 +-----+--+---+---+ 2 76 124 50 +-----+--+---+---+ 3 72 126 50 +-----+--+---+---+ 4 67 127 51 +-----+--+---+---+ 5 64 122 54 +-----+--+---+---+ 6 64 125 48 +-----+--+---+---+ 7 65 120 59 +-----+--+---+---+ 8 67 135 55 +-----+--+---+---+ +-----+--+---+---+ HR SYS KHUSHI +-----+--+---+---+ Final 76 130 49 +-----+--+---+---+ Stres (more content not included)... [facility] Radiology Study observation (narrative) [facility] Heart Perfusion W stress and W radionuclide IVOrdered By: [facility] Provider on 06-23-2024 [facility] No Panel Informationon 06-23 CONCLUSIONS: - Exam indication: a-fib - The left ventricle is normal in size. Left ventricular systolic function is normal. EF = 63 5% (2D biplane) Grade II left ventricular diastolic dysfunction. - The right ventricle is normal in size. Right ventricular systolic function is normal. - There is mild (1+) tricuspid regurgitation. - The patient has not had a prior CC echocardiographic exam for comparison. * * * Final * * * [facility] Echocardiography Report: Transthoracic Echo [facility] Date of service: 06/23/2024 7:15:55 AM Ordering physician: TATY HIDALGO Indication: a-fib Technologist: Roxanne Gray RDCS Interpreting physician: Homero Avila MD PATIENT: Name: MRS. AZALEA MOTT : 1950 Age: 74 years Gender: F History of chronic kidney disease, hypertension and dyslipidemia. Primary rhythm: sinus. Height: 170.18 cm BSA: 2.15 m Weight: 97.52 kg BMI: 33.7 kg/m Heart rate 54 bpm Blood pressure 118/87 mmHg Color Doppler was utilized to interrogate the cardiac valves assessed and spectral Doppler was utilized to determine the flow velocities and pressure gradients reported in this exam. Myocardial strain analysis was performed in this exam to aid in the assessment of cardiac function. MEASUREMENTS: Value Indexed Normal Max aortic dimension 2.5 cm Ao < 3.8 Left atrium diameter 3.7 cm (2D) Left atrial volume 65 ml (biplane A-L) 30 ml/m Oscar <= 34 LV ID (diastole) 5.3 cm (2D) 2.49 cm/m LV ID (systole) 3.0 cm (2D) 1.42 cm/m IVS, leaflet tips 0.9 cm (2D) Posterior wall thickness 0.9 cm (2D) Left ventricular mass 176 g (2D) 82 g/m Global peak long strain -20.8 % LV stroke volume 61 ml (2D biplane) LV end diastolic volume 96 ml (2D biplane) 44.9 ml/m 29<=EDVi<62 LV end systolic volume 35 ml (2D biplane) 16.5 ml/m Ejection Fraction 63 % (2D biplane) EF > 54 FINDINGS: LEFT VENTRICLE The left ventricle is normal in size. Left ventricular systolic function is normal. Global LV myocardial strain is normal. Grade II left ventricular diastolic dysfunction. Mitral annular lateral E/e': 7.7. Mitral annular septal E/e': 18.2. Wall Motion: All scored segments are normal. RIGHT VENTRICLE The right ventricle is normal in size. Right ventricular systolic function is normal. RV systolic tissue Doppler velocity is 12.0 cm/s. Tricuspid annular displacement is 2.4 cm. Estimated right ventricular systolic pressure is 37 mmHg consistent with mild pulmonary hypertension. Estimated right atrial pressure is 3 mmHg based on IVC assessment. LEFT ATRIUM The left atrial cavity is normal in size. RIGHT ATRIUM The right atrial cavity is normal in size. Inferior Vena Cava: The inferior vena cava appears normal measuring 1.9 cm. The vessel decreases greater than 50 percent with inspiration. MITRAL VALVE There is trace mitral valve regurgitation. There is mild thickening. There is mild calcification. The pressure half time is 56 msec. The peak mitral E/A ratio is 2.00. The mitral flow deceleration time is 194 msec. TRICUSPID VALVE There is mild (1+) tricuspid valve regurgitation. There is mild calcification. The hepatic venous pattern showed normal systolic flow. AORTIC VALVE There is no aortic valve regurgitation. Tricuspid aortic valve. There is mild calcification. The peak gradient is 8 mmHg (peak velocity = 140.0 cm/s). The LVOT diameter is 1.9 cm. PULMONIC VALVE The pulmonic valve cusps are structurally normal. There is trace pulmonic valve regurgitation. AORTA The visualized aorta is normal in size. Measurements - Aortic valve annulus 1.9 cm. Mid ascending aorta 2.5 cm. PULMONARY ARTERIES The pulmonary arteries are normal. INTERATRIAL SEPTUM There is no evidence of intracardiac shunting as detected by Doppler. INTERVENTRICULAR SEPTUM There is normal motion of the interventricular septum. PERICARDIUM There is no pericardial effusion. There is an epicardial fat pad. [facility] Carlie 06-22-2024 CNPN Telephone (CDLBME) AZALEA MOTT ([id number]) 1950 F Date Time Provider Department 06/22/24 [facility] During your visit today, we recorded the following information about you: Hayley Javier, JACOB 06/22/2024 12:51 PM Signed Spoke to pt regarding reminder and instructions for stress test tomorrow. This included where to check in, length of test and no caffeine for 24 hours prior to test. Allergies As of Date: 06/22/2024 Noted Allergy Reaction NORCO (HYDROCODONE-ACETAMINO PHEN) 10/24/2020 14 - Other: See Comments Comments: Weird dreams. Date Reviewed: 06/09/2024 Reviewed by: Tidey, [place], [place] - Fully Assessed Reason for Visit: Reminder Call [2055] Prescriptions as of 06/22/2024 - metoprolol succinate ER (TOPROL XL) 50 mg 24 hr tablet Take 1 tablet by mouth once daily. - apixaban (ELIQUIS) 5 mg tab(s) Take 1 tablet by mouth two times a day. - hydroCHLOROthiazide 25 mg tablet Take 1 tablet by mouth once daily. - lisinopril (ZESTRIL) 10 mg tablet Take 1 tablet by mouth once daily. - atorvastatin (LIPITOR) 10 mg tablet Take 1 tablet by mouth daily at bedtime. For cholesterol. - CPAP CPAP Supplies, All Necessary equipment including tubing and full mask ICD G47.33 - HAIR, SKIN AND NAILS, BIOTIN, ORAL Take 2 tablets by mouth once daily. - diphenhydrAMINE-Acetam inophen (TYLENOL PM EXTRA STRENGTH) 25-500 mg tab At bedtime for sleep - ascorbic acid (VITAMIN C ORAL) Take 1 tablet by mouth once daily. - elderberry fruit (ELDERBERRY ORAL) Take 2 Doses by mouth once daily. - CPAP 30 day download for And please send chin strap Auto PAP @ 5-20 cm of water with humidification. Mask (per patient preference) optional chin strap (if indicated) , filters, tubing, humidifier and lifetime supplies. - TURMERIC ORAL Take by mouth once daily. With curcumin - Black Cohosh 40 mg tab Take 1 tablet by mouth. Take 1 tablet every other day - ferrous sulfate 325 mg (65 mg iron) tablet Take 650 mg by mouth daily with breakfast. - cholecalciferol (VITAMIN D3) 50 mcg (2,000 unit) tablet Take by mouth. - Fiber Cap Take 3 capsules by mouth once daily. - multivitamins(DAILY MULTIVITAMIN TAB) Take one(1) tablet daily. Problem List As Of Date 06/22/2024 Noted Resolved Dermatophytosis of foot [B35.3] 02/05/2006 03/07/2015 Hereditary and idiopathic peripheral neuropathy* 10/24/2020 Hearing Loss in Left Ear [H91.92] 03/27/2009 Post-menopausal bleeding [N95.0] 11/21/2011 03/28/2016 Thickened endometrium [R93.89] 12/05/2011 03/28/2016 Chester of foot [L84] 08/17/2013 03/28/2016 Primary osteoarthritis of right hip [M16.11] 08/09/2015 Arthritis of right hip [M16.11] 08/09/2015 10/24/2020 Hyperlipidemia LDL goal <100 [E78.5] 01/18/2016 Hypertension, essential [I10] 01/02/2020 SIOBHAN on CPAP [G47.33] 01/27/2020 Obesity, Class I, BMI 30-34.9 [E66.811] 10/25/2020 Chronic kidney insufficiency, stage 3 (moderate*08/25/2023 Impaired fasting glucose [R73.01] 04/06/2023 Venous insufficiency [I87.2] 09/02/2023 Encounter Status:Closed by HAYLEY JAVIER on 06/22/24 [facility] ([id number]) 1950 F Date Time Provider Department 06/14/24 TATY HIDALGO During your visit today, we recorded the following information about you: Fiorella Rodriguez RN 06/14/2024 2:45 PM Signed Please refer to Nurse Triage encounter from 06/14/2024: Taty Hidalgo MD to Karlee Stinson RN 06/14/24 1:00 PM Can increase metoprolol to 50 mg once daily which is equivalent to 2 of the 25 mg metoprolol tablets once a day. Metoprolol prescription has been adjusted to 50 mg once daily. Fiorella Rodriguez RN 06/14/2024 2:55 PM Signed Informed pt of Dr. Hidalgo message below. Pt verbalized understanding. Advised her continue monitoring her BP and HR and to reach out to our office is HR is still elevated. Allergies As of Date: 06/14/2024 Noted Allergy Reaction NORCO (HYDROCODONE-ACETAMINO PHEN) 10/24/2020 14 - Other: See Comments Comments: Weird dreams. Date Reviewed: 06/09/2024 Reviewed by: [place] Vázquez MA - Fully Assessed Prescriptions as of 06/14/2024 - metoprolol succinate ER (TOPROL XL) 50 mg 24 hr tablet Take 1 tablet by mouth once daily. - apixaban (ELIQUIS) 5 mg tab(s) Take 1 tablet by mouth two times a day. - hydroCHLOROthiazide 25 mg tablet Take 1 tablet by mouth once daily. - lisinopril (ZESTRIL) 10 mg tablet Take 1 tablet by mouth once daily. - atorvastatin (LIPITOR) 10 mg tablet Take 1 tablet by mouth daily at bedtime. For cholesterol. - CPAP CPAP Supplies, All Necessary equipment including tubing and full mask ICD G47.33 - HAIR, SKIN AND NAILS, BIOTIN, ORAL Take 2 tablets by mouth once daily. - diphenhydrAMINE-Acetam inophen (TYLENOL PM EXTRA STRENGTH) 25-500 mg tab At bedtime for sleep - ascorbic acid (VITAMIN C ORAL) Take 1 tablet by mouth once daily. - elderberry fruit (ELDERBERRY ORAL) Take 2 Doses by mouth once daily. - CPAP 30 day download for And please send chin strap Auto PAP @ 5-20 cm of water with humidification. Mask (per patient preference) optional chin strap (if indicated) , filters, tubing, humidifier and lifetime supplies. - TURMERIC ORAL Take by mouth once daily. With curcumin - Black Cohosh 40 mg tab Take 1 tablet by mouth. Take 1 tablet every other day - ferrous sulfate 325 mg (65 mg iron) tablet Take 650 mg by mouth daily with breakfast. - cholecalciferol (VITAMIN D3) 50 mcg (2,000 unit) tablet Take by mouth. - Fiber Cap Take 3 capsules by mouth once daily. - multivitamins(DAILY MULTIVITAMIN TAB) Take one(1) tablet daily. Problem List As Of Date 06/14/2024 Noted Resolved Dermatophytosis of foot [B35.3] 02/05/2006 03/07/2015 Hereditary and idiopathic peripheral neuropathy* 10/24/2020 Hearing Loss in Left Ear [H91.92] 03/27/2009 Post-menopausal bleeding [N95.0] 11/21/2011 03/28/2016 Thickened endometrium [R93.89] 12/05/2011 03/28/2016 Chester of foot [L84] 08/17/2013 03/28/2016 Primary osteoarthritis of right hip [M16.11] 08/09/2015 Arthritis of right hip [M16.11] 08/09/2015 10/24/2020 Hyperlipidemia LDL goal <100 [E78.5] 01/18/2016 Hypertension, essential [I10] 01/02/2020 SIOBHAN on CPAP [G47.33] 01/27/2020 Obesity, Class I, BMI 30-34.9 [E66.811] 10/25/2020 Chronic kidney insufficiency, stage 3 (moderate*08/25/2023 Impaired fasting glucose [R73.01] 04/06/2023 Venous insufficiency [I87.2] 09/02/2023 Encounter Status:Closed by FIORELLA RODRIGUEZ on 06/14/24 [facility] 06-09-2024 CNOV Office Visit (BRIJESH ) AZALEA MOTT ([id number]) 1950 F Date Time Provider Department 06/09/24 11:00 AM TATY HIDALGO During your visit today, we recorded the following information about you: Pulse Blood pressure Weight Height 95/minute 120/70 97.5 kg 1.702 m Taty Hidalgo MD 06/24/2024 7:57 AM [facility] [place] [facility]Y OUTPATIENT VISIT DATE 06/09/2024 OUTPATIENT VISIT TYPE NEW PRIMARY CARE PHYSICIAN: Navdeep Ulloa [address] [place] [id number] Patient is being seen at the request of self for preoperative CV risk assessment HISTORY OF PRESENT ILLNESS: Ms. Mott is a 74 year old female, hx of COVID, diverticulosis, hypertension, SIOBHAN, atrial flutter and RBBB noted on 06/07/2024 EKG presents for preoperative risk stratification prior to hip arthroplasty. She is accompanied by her . She denies chest pain, SOB, palpitations, orthopnea, PND, leg swelling, lightheadedness, syncope. Her physical activity is limited by her hip. ECG on 06/07/2024 showed atrial flutter HR 99 with variable conduction, RBBB. PAST MEDICAL HISTORY Diagnosis Date Cholelithiasis with acute cholecystitis with biliary obstruction 09/2020 Chronic otitis media of both ears 1955 COVID-19 01/30/2021 home antigen test Diverticulosis of colon (without mention of hemorrhage) Diverticulosis Hearing loss in left ear 03/27/2009 Hereditary and idiopathic peripheral neuropathy Hyperlipidemia LDL goal <100 01/18/2016 Hypertension, essential 01/02/2020 Obesity, Class I, BMI 30-34.9 10/25/2020 SIOBHAN (obstructive sleep apnea) 01/27/2020 Personal history of colonic polyps 10/18/2004 hyperplastic Colon polyps Unspecified hemorrhoids without mention of complication Hemorrhoids PAST SURGICAL HISTORY Procedure Laterality Date ADENOIDECTOMY PRIMARY Adenoidectomy COLONOSCOPY FLX DX W/COLLJ SPEC WHEN PFRMD 10/18/2004 Colonoscopy-repeat in COLONOSCOPY FLX DX W/COLLJ SPEC WHEN PFRMD 02/13/2017 [id number] 10 years HYSTEROSCOPY BX W/WO DANDC 12/2011 endometrial polyp LAPAROSCOPIC CHOLECYSTECTOMY 09/24/2020 MASTOIDECTOMY,COMPLETE Left 1955 Mastoidectomy, left TONSILLECTOMY PRIMARY/SECONDARY Tonsillectomy Social History Tobacco Use Smoking status: Never Smokeless tobacco: Never Vaping Use Vaping status: Never Used Substance Use Topics Alcohol use: No Drug use: No FAMILY HISTORY Problem Relation Age of Onset Hypertension Mother Asthma Mother Diabetes Mother COPD Mother other (crohns [Other]) Mother Cancer Father NON HODGKINS LYMPHOMA Heart Father CHF Stroke Father age 82 Heart Sister CHF other (diabetes mellitus [Other]) Sister Hypertension Sister Pneumonia Sister Fibromyalgia Sister Kidney Disease Sister Pneumonia Brother other (Covid 19 sequelae) Brother No Known Problems Brother No Known Problems Brother Diabetes Maternal Grandmother Stroke Paternal Grandfather Tuberculosis Paternal Grandfather Anesthesia Problems No Family History ALLERGIES Allergen Reactions [place] [Hydrocodone-* Other: See Comments Weird dreams. CURRENT MEDICATIONS: mupirocin (BACTROBAN) 2 % ointment two times a day for 5 days. Apply 0.5 inch with cotton swab (Q-tip) to each nostril in the morning and evening for 5 days prior to and including day of surgery. hydroCHLOROthiazide 25 mg tablet Take 1 tablet by mouth once daily. lisinopril (ZESTRIL) 10 mg tablet Take 1 tablet by mouth once daily. atorvastatin (LIPITOR) 10 mg tablet Take 1 tablet by mouth daily at bedtime. For cholesterol. CPAP CPAP Supplies, All Necessary equipment including tubing and full mask ICD G47.33 HAIR, SKIN AND NAILS, BIOTIN, ORAL Take 2 tablets by mouth once daily. diphenhydrAMINE-Acetam inophen (TYLENOL PM EXTRA STRENGTH) 25-500 mg tab At bedtime for sleep ascorbic acid (VITAMIN C ORAL) Take 1 tablet by mouth once daily. elderberry fruit (ELDERBERRY ORAL) Take 2 Doses by mouth once daily. CPAP 30 day download for And please send chin strap Auto PAP @ 5-20 cm of water with humidification. Mask (per patient preference) optional chin strap (if indicated) , filters, tubing, humidifier and lifetime supplies. TURMERIC ORAL Take by mouth once daily. With curcumin Black Cohosh 40 mg tab Take 1 tablet by mouth. Take 1 tablet every other day ferrous sulfate 325 mg (65 mg iron) tablet Take 650 mg by mouth daily with breakfast. cholecalciferol (VITAMIN D3) 50 mcg (2,000 unit) tablet Take by mouth. Fiber Cap Take 3 capsules by mouth once daily. multivitamins(DAILY MULTIVITAMIN TAB) Take one(1) tablet daily. PHYSICAL EXAMINATION: BP 120/70 Pulse 95 Ht 170.2 cm (5' 7) Wt 97.5 kg (215 lb) SpO2 96% BMI 33.67 kg/m? General: Appears comfortable in no apparent cardio (more content not included)... 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 Patient states she has received all pre-op information that she needs and has no questions or concerns for PCP at this time. JACOB Joshi Victor H, MD 06/08/2024 5:27 PM Signed Noted. Preoperative examination is scheduled with Dr. Hidalgo tomorrow. Stephon Maurer APRN.KYAW 06/10/2024 6:13 PM Signed [place]ellebron Garvey, I saw this mutual patient in [facility] on 06/07/2024. Azalea Alexis Mott 1950 [id number] is scheduled for Right Total Hip Arthroplasty with Dr. Gibbons on 06/30/24. FYI - Patient's labs are acceptable for upcoming procedure, but wanted to let you know that the patient's Calcium is elevated. Calcium, Total 8.5 - 10.2 mg/dL 10.7 High Thank you, Stephon Maurer APRN.PROTEIN PURIFICATION SCIENTIST Allergies As of Date: 06/08/2024 Noted Allergy Reaction NORCO (HYDROCODONE-ACETAMINO PHEN) 10/24/2020 14 - Other: See Comments Comments: Weird dreams. Date Reviewed: 06/07/2024 Reviewed by: Stephon Maurer APRN.PROTEIN PURIFICATION SCIENTIST - Fully Assessed Reason for Visit: Patient Update [1234] Prescriptions as of 06/10/2024 - apixaban (ELIQUIS) 5 mg tab(s) Take 1 tablet by mouth two times a day. - metoprolol succinate ER (TOPROL XL) 25 mg 24 hr tablet Take 1 tablet by mouth once daily. - mupirocin (BACTROBAN) 2 % ointment two times a day for 5 days. Apply 0.5 inch with cotton swab (Q-tip) to each nostril in the morning and evening for 5 days prior to and including day of surgery. - hydroCHLOROthiazide 25 mg tablet Take 1 tablet by mouth once daily. - lisinopril (ZESTRIL) 10 mg tablet Take 1 tablet by mouth once daily. - atorvastatin (LIPITOR) 10 mg tablet Take 1 tablet by mouth daily at bedtime. For cholesterol. - CPAP CPAP Supplies, All Necessary equipment including tubing and full mask ICD G47.33 - HAIR, SKIN AND NAILS, BIOTIN, ORAL Take 2 tablets by mouth once daily. - diphenhydrAMINE-Acetam inophen (TYLENOL PM EXTRA STRENGTH) 25-500 mg tab At bedtime for sleep - ascorbic acid (VITAMIN C ORAL) Take 1 tablet by mouth once daily. - elderberry fruit (ELDERBERRY ORAL) Take 2 Doses by mouth once daily. - CPAP 30 day download for And please send chin strap Auto PAP @ 5-20 cm of water with humidification. Mask (per patient preference) optional chin strap (if indicated) , filters, tubing, humidifier and lifetime supplies. - TURMERIC ORAL Take by mouth once daily. With curcumin - Black Cohosh 40 mg tab Take 1 tablet by mouth. Take 1 tablet every other day - ferrous sulfate 325 mg (65 mg iron) tablet Take 650 mg by mouth daily with breakfast. - cholecalciferol (VITAMIN D3) 50 mcg (2,000 unit) tablet Take by mouth. - Fiber Cap Take 3 capsules by mouth once daily. - multivitamins(DAILY MULTIVITAMIN TAB) Take one(1) tablet daily. Problem List As Of Date 06/08/2024 Noted Resolved Dermatophytosis of foot [B35.3] 02/05/2006 03/07/2015 Hereditary and idiopathic peripheral neuropathy* 10/24/2020 Hearing Loss in Left Ear [H91.92] 03/27/2009 Post-menopausal bleeding [N95.0] 11/21/2011 03/28/2016 Thickened endometrium [R93.89] 12/05/2011 03/28/2016 [place] of foot [L84] 08/17/2013 03/28/2016 Primary osteoarthritis of right hip [M16.11] 08/09/2015 Arthritis of right hip [M16.11] 08/09/2015 10/24/2020 Hyperlipidemia LDL goal <100 [E78.5] 01/18/2016 Hypertension, essential [I10] 01/02/2020 SIOBHAN on CPAP [G47.33] 01/27/2020 Obesity, Class I, BMI 30-34.9 [E66.811] 10/25/2020 Chronic kidney insufficiency, stage 3 (moderate*08/25/2023 Impaired fasting glucose [R73.01] 04/06/2023 Venous insufficiency [I87.2] 09/02/2023 Medications Discontinued During This Encounter Prescriptions - meloxicam (MOBIC) 15 mg tablet (Discontinued) Reported on 04/22/2024 Encounter Status:Closed by NAVDEEP ULLOA on 06/08/24 Normal [facility] Telephone (ORTHMN) AZALEA MOTT ([id number]) 1950 F Date Time Provider Department 06/08/24 PATTIE FERNANDEZ During your visit today, we recorded the following information about you: Pattie Fernandez LSW 06/08/2024 1:13 PM Signed ORTHOPAEDIC COORDINATION OF CARE Pre-Op Assessment Discharge Disposition (Planned): Home with Home Health Discharge Transportation: Car A [facility] Information: Surgeon: Eligio Gibbons MD Date of surgery: 06/30/2024 Surgery location: [place] [facility] location: [place] Date of [facility] clinic: 06/07/2024 Appts included in visit: Joint Class, PACC, Social Work, Lab and Imaging Joint being replaced: Right Hip PRIMARY CARE PHYSICIAN: Navdeep Ulloa MD OR Surgery Date: 06/30/2024 TCI Appointment: 06/30/2024 Joint: Jointtype: Hip Side: right Health Insurance: Medicare or MEDICARE SUPPLEMENT GENERIC Primary Contact: Extended Emergency Contact Information Primary Emergency Contact: Uli Mott Address: [address] [place] [address] Mobile Relation: Spouse Have you had joint replacement surgery before?: No Social: Pre-Hospital Baseline Mental Status: Alert AND Oriented Informant: Self Living Arrangement: Home Who able to assist you at home once you discharge? Spouse Are they available for at least 2 weeks? Yes Stairs: One story home 2 stairs to enter home Bedroom Location: First Bathroom Location: First Do you have problems that affect your ability to perform normal activities of daily living such as bathing, dressing, or toileting yourself? No = 0 What is your current functional status?: Perform ADLs independently Are you able to afford your medications/Food? Yes Social Drivers of Health Tobacco Use: Low Risk (06/07/2024) Patient History Smoking Tobacco Use: Never Smokeless Tobacco Use: Never Passive Exposure: Not on file Alcohol Use: Not At Risk (01/27/2024) AUDIT-C Frequency of Alcohol Consumption: Never Average Number of Drinks: Patient does not drink Frequency of Binge Drinking: Never Financial Resource Strain: Low Risk (06/08/2024) Overall Financial Resource Strain (CARDIA) Difficulty of Paying Living Expenses: Not very hard Food Insecurity: No Food Insecurity (06/08/2024) Hunger Vital Sign Worried About Running Out of Food in the Last Year: Never true Ran Out of Food in the Last Year: Never true Transportation Needs: No Transportation Needs (06/08/2024) PRAPARE - Transportation Lack of Transportation (Medical): No Lack of Transportation (Non-Medical): No Physical Activity: Inactive (01/27/2024) Exercise Vital Sign Days of Exercise per Week: 0 days Minutes of Exercise per Session: 0 min Stress: No Stress Concern Present (06/08/2024) [place] [employer] - Occupational Stress Questionnaire Feeling of Stress : Not at all Social Connections: Moderately Integrated (06/08/2024) Social Connection and Isolation Panel [NHANES] Frequency of Communication with Friends and Family: More than three times a week Frequency of Social Gatherings with Friends and Family: More than three times a week Attends Gnosticist Services: More than 4 times per year Active Member of Clubs or Organizations: No Attends Club or Organization Meetings: Never Marital Status: Intimate Partner Violence: Not At Risk (06/08/2024) Safe at Home? Fear of Current or Ex-Partner: No Emotionally Abused: No Physically Abused: No Sexually Abused: No Safe at Home?: Not on file Depression: Not at risk (06/03/2024) PHQ-2 PHQ-2 Score: 0 Housing Stability: Low Risk (06/08/2024) Housing Stability Vital Sign Unable to Pay for Housing in the Last Year: No Number of Times Moved in the Last Year: 0 Homeless in the Last Year: No Utilities: Not At Risk (06/08/2024) [facility] Utilities Threatened with loss of utilities: No Area Deprivation Index: Medium Risk (06/07/2024) Area Deprivation Index National Score (1-100), lower number is lower risk: 58 State Score (1-10), lower number is lower risk: 4 Data from: https://www.[facility] odesb.medicine.[facility]. edu/. Last address used for calculation: [address] Equipment: Do you currently use any equipment at home for your medical condition or to help you get around? Bi-level Positive Airway Pressure/Continuous Positive Airway Pressure Patient stated she has a cane, a walker, a shower chair and high rise toilet seats at home with an extra elevated attachment for after surgery Active Services/Needs: None Transportation: Do you have reliable transportation to and from surgery/appointments?: Yes Who will provide discharge transportation: Spouse Contact information for patient's ride: Will your ride be available for 1200 discharge time? Yes Office Visit Follow Up Did you receive the antiseptic wipes fr (more content not included)... Normal [facility] BLOOD BANK COMMENTon 025 BLOOD BANK COMMENT See Comment Normal [facility] Comment on above: Order Comment: Speci men Type: BLOOD SPECIMENOrdering Facility: [facility] Address: [address] [place] [address] Result Comment: 2nd sample NEEDED for ABO confirmation (CONABO) Performed By: #### L [id number], [id number] ####HANNA BLOOD BANKCLIA [id number] [place] [address] [place] CBC W Auto Differential pane l (Bld)on 06-07-2024 Basophils (Bld) [#/Vol] 0.05 10*3/uL Normal <0.11 [facility] Comment on above: Order Comment: Speci men Type: BLOOD SPECIMENOrdering Facility: [facility] Address: [address] [place] [address] Performed By: #### 5 7021-8 ####MORRIS LABORATORYCLIA [id number] [place] [address] [place] Basophils/100 WBC (Bld) 0.6 % Normal [facility] Comment on above: Order Comment: Speci men Type: BLOOD SPECIMENOrdering Facility: [facility] Address: [address] [place] [address] Performed By: #### 5 7021-8 ####MORRIS LABORATORYCLIA [id number] [place] [address] [place] Differential cell count method Nom (Bld) Auto Normal [facility] Comment on above: Order Comment: Speci men Type: BLOOD SPECIMENOrdering Facility: [facility] Address: [address] [place] [address] Performed By: #### 5 7021-8 ####MORRIS LABORATORYCLIA [id number] [place] [address] [place] Eosinophils (Bld) [#/Vol] 0.22 10*3/uL Normal <0.46 [facility] Comment on above: Order Comment: Speci men Type: BLOOD SPECIMENOrdering Facility: [facility] Address: [address] [place] [address] Performed By: #### 5 7021-8 ####MORRIS LABORATORYCLIA [id number] [address] [place] Eosinophils/100 WBC (Bld) 2.5 % Normal [facility] Comment on above: Order Comment: Speci men Type: BLOOD SPECIMENOrdering Facility: [facility] Address: [address] [place] [address] Performed By: #### 5 7021-8 ####MORRIS LABORATORYCLIA [id number] [place] [address] [place] Erythrocyte distribution width (RBC) [Ratio] 12.3 % Normal 11.5-15.0 [facility] Comment on above: Order Comment: Speci men Type: BLOOD SPECIMENOrdering Facility: [facility] Address: [address] [place] [address] Performed By: #### 5 7021-8 ####MORRIS LABORATORYCLIA [id number] [place] [address] [place] Hematocrit (Bld) [Volume fraction] 37.9 % Normal 36.0-46.0 [facility] Comment on above: Order Comment: Speci men Type: BLOOD SPECIMENOrdering Facility: [facility] Address: [address] [place] [address] Performed By: #### 5 7021-8 ####MORRIS LABORATORYCLIA [id number] [place] [address] [place] Hemoglobin (Bld) [Mass/Vol] 12.7 g/dL Normal 11.5-15.5 [facility] Comment on above: Order Comment: Speci men Type: BLOOD SPECIMENOrdering Facility: [facility] Address: [address] [place] [address] Performed By: #### 5 7021-8 ####MORRIS LABORATORYCLIA [id number] [place] [address] [place] Immature granulocytes (Bld) [#/Vol] 0.03 10*3/uL Normal <0.10 [facility] Comment on above: Order Comment: Speci men Type: BLOOD SPECIMENOrdering Facility: [facility] Address: [address] [place] [address] Performed By: #### 5 7021-8 ####MORRIS LABORATORYCLIA [id number] [address] [place] Immature granulocytes/100 WBC (Bld) 0.3 % Normal [facility] Comment on above: Order Comment: Speci men Type: BLOOD SPECIMENOrdering Facility: [facility] Address: [address] [place] [address] Performed By: #### 5 7021-8 ####MORRIS LABORATORYCLIA [id number] [place] [address] [place] Lymphocytes (Bld) [#/Vol] 1.85 10*3/uL Normal 1.00-4.00 [facility] Comment on above: Order Comment: Speci men Type: BLOOD SPECIMENOrdering Facility: [facility] Address: [address] [place] [address] Performed By: #### 5 7021-8 ####MORRIS LABORATORYCLIA [id number] [address] Lymphocytes/100 WBC (Bld) 20.7 % Normal [facility] Comment on above: Order Comment: Speci men Type: BLOOD SPECIMENOrdering Facility: [facility] Address: [address] [place] [address] Performed By: #### 5 7021-8 ####MORRIS LABORATORYCLIA [id number] [address] [place] MCH (RBC) [Entitic mass] 29.5 pg Normal 26.0-34.0 [facility] Comment on above: Order Comment: Speci men Type: BLOOD SPECIMENOrdering Facility: [facility] Address: [address] [place] [address] Performed By: #### 5 7021-8 ####MORRIS LABORATORYCLIA [id number] [address] [place] MCHC (RBC) [Mass/Vol] 33.5 g/dL Normal 30.5-36.0 [facility] Comment on above: Order Comment: Speci men Type: BLOOD SPECIMENOrdering Facility: [facility] Address: [address] [place] [address] Performed By: #### 5 7021-8 ####MORRIS LABORATORYCLIA [id number] [address] [place] MCV (RBC) [Entitic vol] 87.9 fL Normal 80.0-100.0 [facility] Comment on above: Order Comment: Speci men Type: BLOOD SPECIMENOrdering Facility: [facility] Address: [address] [place] [address] Performed By: #### 5 7021-8 ####MORRIS LABORATORYCLIA [id number] [address] [place] Monocytes (Bld) [#/Vol] 0.57 10*3/uL Normal <0.87 [facility] Comment on above: Order Comment: Speci men Type: BLOOD SPECIMENOrdering Facility: [facility] Address: [address] [place] [address] Performed By: #### 5 7021-8 ####MORRIS LABORATORYCLIA [id number] [place] [address] [place] Monocytes/100 WBC (Bld) 6.4 % Normal [facility] Comment on above: Order Comment: Speci men Type: BLOOD SPECIMENOrdering Facility: [facility] Address: [address] [place] [address] Performed By: #### 5 7021-8 ####MORRIS LABORATORYCLIA [id number] [place] [address] [place] Neutrophils (Bld) [#/Vol] 6.21 10*3/uL Normal 1.45-7.50 [facility] Comment on above: Order Comment: Speci men Type: BLOOD SPECIMENOrdering Facility: [facility] Address: [address] [place] [address] Performed By: #### 5 7021-8 ####MORRIS LABORATORYCLIA [id number] [place] [address] [place] Neutrophils/100 WBC (Bld) 69.5 % Normal [facility] Comment on above: Order Comment: Speci men Type: BLOOD SPECIMENOrdering Facility: [facility] Address: [address] [place] [address] Performed By: #### 5 7021-8 ####MORRIS LABORATORYCLIA [id number] [place] [address] [place] Nucleated RBC (Bld) [#/Vol] 10*3/uL Normal <0.01 [facility] Comment on above: Order Comment: Speci men Type: BLOOD SPECIMENOrdering Facility: [facility] Address: [address] [place] [address] Performed By: #### 5 7021-8 ####MORRIS LABORATORYCLIA [id number] [place] [address] [place] Nucleated RBC/100 WBC (Bld) [Ratio] 0.0 /100 WBC Normal [facility] Comment on above: Order Comment: Speci men Type: BLOOD SPECIMENOrdering Facility: [facility] Address: [address] [place] [address] Performed By: #### 5 7021-8 ####MORRIS LABORATORYCLIA [id number] [address] Platelet mean volume (Bld) [Entitic vol] 10.7 fL Normal 9.0-12.7 [facility] Comment on above: Order Comment: Speci men Type: BLOOD SPECIMENOrdering Facility: [facility] Address: [address] [place] [address] Performed By: #### 5 7021-8 ####MORRIS LABORATORYCLIA [id number] [address] OF [place] Platelets (Bld) [#/Vol] 245 10*3/uL Normal 150-400 [facility] Comment on above: Order Comment: Speci men Type: BLOOD SPECIMENOrdering Facility: [facility] Address: [address] [place] [address] Performed By: #### 5 7021-8 ####MORRIS LABORATORYCLIA [id number] [place] [address] [place] RBC (Bld) [#/Vol] 4.31 10*6/uL Normal 3.90-5.20 [facility] Comment on above: Order Comment: Speci men Type: BLOOD SPECIMENOrdering Facility: [facility] Address: [address] [place] [address] Performed By: #### 5 7021-8 ####MORRIS LABORATORYCLIA [id number] [address] [place] WBC (Bld) [#/Vol] 8.93 10*3/uL Normal 3.70-11.00 [facility] Comment on above: Order Comment: Speci men Type: BLOOD SPECIMENOrdering Facility: [facility] Address: [address] [place] [address] Performed By: #### 5 7021-8 ####MORRIS LABORATORYCLIA [id number] [place] [address] [place] [address] HIP WO IVCON RTon 025 CT HIP WO IVCON RT * * *Final Report* * * DATE OF EXAM: Jun 07 2024 2:14PM [facility] [place] IVCON [place] / PROCEDURE REASON: multiple diagnoses * * * * Physician Interpretation * * * * EXAMINATION: CT HIP WO IVCON RT CLINICAL HISTORY: 74 years old Female with Primary osteoarthritis of right hip Preoperative examination . . TECHNIQUE: CT RIGHT hip without contrast Kvng protocol, 0.62 mm axial slices pelvis-hips, 2.5 mm axial slices both knees CT Radiation dose: Integrated Dose-length product (DLP) for this visit = 856 mGy*cm. CT Dose Reduction Employed: Automated exposure control(AEC) and iterative recon COMPARISON: Radiographs 01/27/2024 RESULT: Advanced right and moderate left hip osteoarthritis. Bilateral knees: Bilateral osteoarthritis Varitype Operator: No significant finding. IMPRESSION: Limited CT images for the purposes of presurgical planning. Study Director: RACHELLE Transcribe Date/Time: Jun 09 2024 8:16A Dictated by : MARLYN BARR MD This examination was interpreted and the report reviewed and electronically signed by: MARLYN BARR MD on Jun 09 2024 8:17AM EST [id number] Normal [facility] Comprehensive metabolic 2000 panelon 06-07-2024 Albumin [Mass/Vol] 4.4 g/dL Normal 3.9-4.9 [facility] Comment on above: Order Comment: Speci men Type: BLOOD SPECIMENOrdering Facility: [facility] Address: [address] [place] [address] Performed By: #### 2 4323-8 ####MORRIS LABORATORYCLIA [id number] [place] [address] [place] ALP [Catalytic activity/Vol] 87 U/L Normal 34-123 [facility] Comment on above: Order Comment: Speci men Type: BLOOD SPECIMENOrdering Facility: [facility] Address: [address] [place] [address] Performed By: #### 2 4323-8 ####MORRIS LABORATORYCLIA [id number] [place] [address] [place] ALT [Catalytic activity/Vol] 19 U/L Normal 7-38 [facility] Comment on above: Order Comment: Speci men Type: BLOOD SPECIMENOrdering Facility: [facility] Address: [address] [place] [address] Performed By: #### 2 4323-8 ####MORRIS LABORATORYCLIA [id number] [address] [place] Anion gap [Moles/Vol] 12 mmol/L Normal 8-15 [facility] Comment on above: Order Comment: Speci men Type: BLOOD SPECIMENOrdering Facility: [facility] Address: [address] [place] [address] Performed By: #### 2 4323-8 ####MORRIS LABORATORYCLIA [id number] [address] OF [place] AST [Catalytic activity/Vol] 18 U/L Normal 13-35 [facility] Comment on above: Order Comment: Speci men Type: BLOOD SPECIMENOrdering Facility: [facility] Address: [address] [place] [address] Performed By: #### 2 4323-8 ####MORRIS LABORATORYCLIA [id number] [address] [place] Bilirubin [Mass/Vol] 0.5 mg/dL Normal 0.2-1.3 [facility] Comment on above: Order Comment: Speci men Type: BLOOD SPECIMENOrdering Facility: [facility] Address: [address] [place] [address] Performed By: #### 2 4323-8 ####MORRIS LABORATORYCLIA [id number] [address] [place] Calcium [Mass/Vol] 10.7 mg/dL High 8.5-10.2 [facility] Comment on above: Order Comment: Speci men Type: BLOOD SPECIMENOrdering Facility: [facility] Address: [address] [place] [address] Performed By: #### 2 4323-8 ####MORRIS LABORATORYCLIA [id number] [address] [place] Chloride [Moles/Vol] 98 mmol/L Normal 98-107 [facility] Comment on above: Order Comment: Speci men Type: BLOOD SPECIMENOrdering Facility: [facility] Address: [address] [place] [address] Performed By: #### 2 4323-8 ####MORRIS LABORATORYCLIA [id number] [place] [address] [place] CO2 [Moles/Vol] 30 mmol/L Normal 22-30 [facility] Comment on above: Order Comment: Dallasi men Type: BLOOD SPECIMENOrdering Facility: [facility] Address: [address] [place] [address] Performed By: #### 2 4323-8 ####MORRIS LABORATORYCLIA [id number] [address] [place] Creatinine [Mass/Vol] 1.00 mg/dL High 0.58-0.96 [facility] Comment on above: Order Comment: David men Type: BLOOD SPECIMENOrdering Facility: [facility] Address: [address] [place] [address] Performed By: #### 2 4323-8 ####MORRIS LABORATORYCLIA [id number] [address] Creatinine and Glomerular filtration rate.predicted panel (S/P/Bld) 60 mL/min/1.73m??? Normal >=60 [facility] Comment on above: Order Comment: David gt Type: BLOOD SPECIMENOrdering Facility: [facility] Address: [address] [place] [address] Result Comment: Jessica mated Glomerular Filtration Rate (eGFR) is calculated using the 2020 CKD-EPI creatinine equation. This equation utilizes serum creatinine, sex, and age as parameters. The creatinine assay has traceable calibration to isotope dilution-mass spectrometry. Refer to KDIGO guidelines for clinical interpretation. In patients with unstable renal function, e.g. those with acute kidney injury, the eGFR may not accurately reflect actual GFR. Performed By: #### 2 4323-8 ####MORRIS LABORATORYCLIA [id number] [address] [place] Glucose [Mass/Vol] 104 mg/dL High 74-99 [facility] Comment on above: Order Comment: David men Type: BLOOD SPECIMENOrdering Facility: [facility] Address: [address] [place] [address] Result Comment: The [place] Diabetes Association (ADA) provides guidance for cutoff values for fasting glucose and random glucose. The ADA defines fasting as no caloric intake for at least 8 hours. Fasting plasma glucose results between 100 to 125 mg/dL indicate increased risk for diabetes (prediabetes). Fasting plasma glucose results greater than or equal to 126 mg/dL meet the criteria for diagnosis of diabetes. In the absence of unequivocal hyperglycemia, results should be confirmed by repeat testing. In a patient with classic symptoms of hyperglycemia or hyperglycemic crisis, random plasma glucose results greater than or equal to 200 mg/dL meet the criteria for diagnosis of diabetes. Reference: Standards of Medical Care in Diabetes 2016, [place] Diabetes Association. Diabetes Care. 2016.39(Suppl 1). Performed By: #### 2 4323-8 ####MORRIS LABORATORYCLIA [id number] [place] [address] [place] Potassium [Moles/Vol] 4.0 mmol/L Normal 3.7-5.1 [facility] Comment on above: Order Comment: Speci men Type: BLOOD SPECIMENOrdering Facility: [facility] Address: [address] [place] [address] Performed By: #### 2 4323-8 ####MORRIS LABORATORYCLIA [id number] [place] [address] [place] Protein [Mass/Vol] 7.9 g/dL Normal 6.3-8.0 [facility] Comment on above: Order Comment: Speci men Type: BLOOD SPECIMENOrdering Facility: [facility] Address: [address] [place] [address] Performed By: #### 2 4323-8 ####MORRIS LABORATORYCLIA [id number] [place] [address] [place] Sodium [Moles/Vol] 140 mmol/L Normal 136-144 [facility] Comment on above: Order Comment: Speci men Type: BLOOD SPECIMENOrdering Facility: [facility] Address: [address] [place] [address] Performed By: #### 2 4323-8 ####MORRIS LABORATORYCLIA [id number] [address] Urea nitrogen [Mass/Vol] 26 mg/dL High - [facility] Comment on above: Order Comment: Speci men Type: BLOOD SPECIMENOrdering Facility: [facility] Address: [place] [address] Performed By: #### 2 4323-8 ####HANNA LABORATORYCLIA [id number] [address] ECG COMPLETEon 06-07-2024 ECG COMPLETE Ventricular Rate : 9 9 BPM Atrial Rate : 258 BPM QRS Duration : 116 ms Q-T Interval : 322 ms QTC Calculation(Bazett) : 413 ms Calculated R [place] : -19 degrees Calculated T [place] : 19 degrees ATRIAL FLUTTER WITH VARIABLE A-V BLOCK RIGHT BUNDLE BRANCH BLOCK ABNORMAL ECG NO PREVIOUS ECGS AVAILABLE Confirmed by BENJAMÍN BULLARD M.D. ([id number]) on 06/08/2024 5:01:26 PM NAME : AZALEA MOTT PID : [id number] : 1950 Gender : Female Race : ORD : [id number] Procedure Date : Jun 07 2024 13:08:12 Edit Date : Jun 08 2024 17:01:29 Diagnosis: ATRIAL FLUTTER WITH VARIABLE A-V BLOCK RIGHT BUNDLE BRANCH BLOCK ABNORMAL ECG NO PREVIOUS ECGS AVAILABLE Confirmed by BENJAMÍN BULLARD M.D. ([id number]) on 06/08/2024 5:01:26 PM Test Reason : [facility] Location : : [facility] Overread By : BENJAMÍN BULLARD M.D. Edited By : BENJAMÍN BULLARD M.D. Referred By : ELIGIO GIBBONS Acquired by : Keyon miller [facility] HISTORY PHYSICALon HISTORY PHYSICAL HNO ID: [id number] Author: STEPHON MAURER APRN.CNP Service: ? Author Type: Nurse Practitioner Type: H&P Filed: 06/27/2024 10:07 Note Text: [facility] HISTORY AND PHYSICAL EXAMINATION SERVICE DATE: 06/07/2024 SERVICE TIME: 10:07 AM PRIMARY CARE PHYSICIAN: Navdeep Ulloa MD Assessment Patient has the following medical conditions which may affect lyndsey-operative course: SIOBHAN on CPAP Assessment: Compliant on device. Advised to bring day of surgery. Chronic kidney insufficiency, stage 3 (moderate) (HCC) Assessment: Denies any new or worsening symptoms. Follows with PCP. BUN Date Value Ref Range Status 01/18/2024 22 (H) 7 - 21 mg/dL Final Creatinine Date Value Ref Range Status 01/18/2024 1.03 (H) 0.58 - 0.96 mg/dL Final 08/24/2023 1.05 (H) 0.58 - 0.96 mg/dL Final 03/30/2023 0.99 (H) 0.58 - 0.96 mg/dL Final 01/22/2023 1.08 (H) 0.58 - 0.96 mg/dL Final Hypertension, essential Assessment: Stable and compliant with medications. Follows with PCP. Last 3 Encounter BP Readings: Date: BP: 06/09/2024 120/70 06/07/2024 132/79 03/31/2024 136/72 Hyperlipidemia LDL goal <100 Assessment: Compliant on statin therapy. Encouraged lifestyle modifications. Body mass index is 34.94 kg/m?. Venous insufficiency Assessment: int swelling , elevation helps sometimes. Obesity, Class I, BMI 30-34.9 Assessment: Body mass index is 34.94 kg/m?. Atrial flutter (HCC) Assessment: Reports compliant with medications. Compliant on anticoagulants, currently on Eliquis. Denies any heart palpitations, edema, chest pain, shortness of breath, syncope, activity intolerance, or dizziness. Follows Cardiology. [id number] CHADS2-Vasc Score Breakdown 3 Total Score 1 Female 1 Age 65-74 years old 1 History of hypertension Ejection Fraction - Result: 63 % Date: 06/23/2024 Time: 07:15:55 Heart valve disease Assessment: Follows Cardiology. MITRAL VALVE There is trace mitral valve regurgitation. There is mild thickening. There is mild calcification. TRICUSPID VALVE There is mild (1+) tricuspid valve regurgitation. There is mild calcification. The hepatic venous pattern showed normal systolic flow. Mild pulmonary hypertension (HCC) Assessment: Follows Cardiology. ECHO (06/23/2024 7:15 AM) Estimated right ventricular systolic pressure is 37 mmHg consistent with mild pulmonary hypertension. ANESTHESIA FINDINGS: Intubation History: No history of difficult intubation. No abnormal airway history Significant Anesthesia Considerations: none Airway History: No history of difficult airway No abnormal airway history Muro Activity Status Index: METS: Walk indoors, such as around the house (1.75 METs) Do light work around the house, such as dusting or washing dishes (2.70 METs) Take care of self; that is eating, dressing, bathing, using the toilet (2.75 METs) Walk a block or two on level ground (2.75 METs) Do moderate work around the house, such as vacuuming, sweeping floors, or carrying in groceries (3.50 METs) Climb a flight of stairs or walk up a hill (5.50 METs) DASI Score: 18.95 Patient denies any chest pain or undue shortness of breath with the above physical activity. Patient is limited most or all of the time (uses scooter, mobility device) (+ cane). Clinical Frailty Scale: 3. Well, with treated comorbid disease STOP-Bang Score: STOP-Bang Score: (+ siobhan on cpap) I - PHYSICAL EVALUATION AIRWAY Patient intubated: No. Tracheostomy tube not present Mallampati: II. TM distance: >3 FB. Neck ROM: full ROM without neurological symptoms. Mouth opening: adequate. Short neck: no. Thick neck: no DENTAL Dental findings: teeth intact. II - ANESTHESIA PLAN Anesthetic plan additional comments: *PACC/TCI - anesthesia choice. Beta Jason Monitoring Plan Post Procedure Analgesic Plan Prepared for Surgery: optimally prepared for surgery. Labs and EKG pending. Patient had atrial flutter in office on EKG, asymptomatic. Denies any heart palpitations, edema, chest pain, shortness of breath, syncope, activity intolerance, or dizziness. Patient able to be scheduled with cardiology (Dr. Hidalgo) , 06/09. ADDENDUM: June 27, 2024 9:[address] Hidalgo, There was mild tricuspid valve regurgitation/ leakiness. There is mildly increased pressures within the right lower heart chamber. Recommend repeat echocardiogram in 1 year for monitoring. You may proceed with your upcoming surgery. CONSULTS: The following consults have been initiated at this time: cardiology. Planned Anesthetic: anesthesia choice The Following Tests/Procedures Have Been Initiated: Orders Placed This Encounter mupirocin (BACTROBAN) 2 % ointment Sig: two times a day for 5 days. Apply 0.5 inch with cotton swab (Q-tip) to each nostril in the morning and evening for 5 days prior to and including day of surgery. Dis (more content not included)... Normal [facility] HbA1c (Bld)on 06-07-2024 Average glucose Estimated from glycated hemoglobin (Bld) [Mass/Vol] 111 mg/dL [facility] Comment on above: Order Comment: David del real Type: BLOOD SPECIMENOrdering Facility: [facility] Address: [address] [place] [address] Result Comment: eAG: (Estimated average glucose) is a calculated value from HgbA1c and is sales representative uniforms of the average blood glucose level in the last 2-3 month period. Performed By: #### 5 [id number] ####[facility] LABCLIA [id number] [place] [address] [place] HbA1c (Bld) [Mass fraction] 5.5 % Normal 4.3-5.6 [facility] Comment on above: Order Comment: David del real Type: BLOOD SPECIMENOrdering Facility: [facility] Address: [address] [place] [address] Result Comment: Amer ican Diabetes Association guidelines indicate that patients with HgbA1c in the range 5.7-6.4% are at increased risk for development of diabetes, and intervention by lifestyle modification may be beneficial. HgbA1c greater or equal to 6.5% is considered diagnostic of diabetes. Performed By: #### 5 5454-3 ####[facility] LABCLIA [id number] [place] [id number] [place] TYPE AND SCREEN,30 DAYon ABO AB Normal [facility] Comment on above: Order Comment: David [facility] Type: BLOOD SPECIMENOrdering Facility: [facility] Address: [address] [place] [address] Performed By: #### L [id number], [id number] ####[facility] BLOOD BANKCLIA [id number] [place] [address] [place] Rh Nom (Bld) Negative [facility] Comment on above: Order Comment: Dallasi men Type: BLOOD SPECIMENOrdering Facility: [facility] Address: [address], [place] [address] Performed By: #### L [id number], [id number] ####[facility] B[facility]OD [facility] [id number] [place] [address] [facility] OF 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 Pt owns walker, cane, shower chair, raised toilet seat. Discussed with patient importance of attending joint education class and provided date and times of class: YES Arturo TJA 06/07 Patient received Joint Education Binder: Yes Patient plans discharge home with [facility]. SIGNATURE: ALEX Davalos PATIENT NAME: Azalea Alexis Pantera DATE: June 02, 2024 TIME: 6:59 AM Allergies As of Date: 06/02/2024 Noted Allergy Reaction NORCO (HYDROCODONE-ACETAMINO PHEN) 10/24/2020 14 - Other: See Comments Comments: Weird dreams. Date Reviewed: 05/11/2024 Reviewed by: Frida Bourgeois LPN - Fully Assessed Reason for Visit: Pre-Op Teaching [134] Prescriptions as of 06/06/2024 - hydroCHLOROthiazide 25 mg tablet Take 1 tablet by mouth once daily. - lisinopril (ZESTRIL) 10 mg tablet Take 1 tablet by mouth once daily. - atorvastatin (LIPITOR) 10 mg tablet Take 1 tablet by mouth daily at bedtime. For cholesterol. - meloxicam (MOBIC) 15 mg tablet Take 1 tablet by mouth once daily. - CPAP CPAP Supplies, All Necessary equipment including tubing and full mask ICD G47.33 - HAIR, SKIN AND NAILS, BIOTIN, ORAL Take 2 tablets by mouth once daily. - diphenhydrAMINE-Acetam inophen (TYLENOL PM EXTRA STRENGTH) 25-500 mg tab At bedtime for sleep - ascorbic acid (VITAMIN C ORAL) Take 1 tablet by mouth once daily. - elderberry fruit (ELDERBERRY ORAL) Take 2 Doses by mouth once daily. - CPAP 30 day download for And please send chin strap Auto PAP @ 5-20 cm of water with humidification. Mask (per patient preference) optional chin strap (if indicated) , filters, tubing, humidifier and lifetime supplies. - TURMERIC ORAL Take by mouth once daily. With curcumin - Black Cohosh 40 mg tab Take 1 tablet by mouth. Take 1 tablet every other day - ferrous sulfate 325 mg (65 mg iron) tablet Take 650 mg by mouth daily with breakfast. - cholecalciferol (VITAMIN D3) 50 mcg (2,000 unit) tablet Take by mouth. - Fiber Cap Take 3 capsules by mouth once daily. - multivitamins(DAILY MULTIVITAMIN TAB) Take one(1) tablet daily. Problem List As Of Date 06/02/2024 Noted Resolved Dermatophytosis of foot [B35.3] 02/05/2006 03/07/2015 Hereditary and idiopathic peripheral neuropathy* 10/24/2020 Hearing Loss in Left Ear [H91.92] 03/27/2009 Post-menopausal bleeding [N95.0] 11/21/2011 03/28/2016 Thickened endometrium [R93.89] 12/05/2011 03/28/2016 Chester of foot [L84] 08/17/2013 03/28/2016 Primary osteoarthritis of right hip [M16.11] 08/09/2015 Arthritis of right hip [M16.11] 08/09/2015 10/24/2020 Hyperlipidemia LDL goal <100 [E78.5] 01/18/2016 Hypertension, essential [I10] 01/02/2020 SIOBHAN on CPAP [G47.33] 01/27/2020 Obesity, Class I, BMI 30-34.9 [E66.811] 10/25/2020 Chronic kidney insufficiency, stage 3 (moderate*08/25/2023 Impaired fasting glucose [R73.01] 04/06/2023 Venous insufficiency [I87.2] 09/02/2023 Encounter Status:Closed by EVARISTO PATE on 06/06/24 [facility] 05-12-2024 CNPN Telephone (ORTHMN) AZALEA MOTT ([id number]) 1950 F Date Time Provider Department 05/12/24 LUIGI HULL During your visit today, we recorded the following information about you: Luigi Hull LISW 05/12/2024 10:26 AM Signed TJ called patient to offer participation in [facility]. This patient has agreed to participate in our [facility] on (05/31/24) at [facility]. Surgeon: Rubio DOS: 06/30/24 SIGNATURE: REYNALDO Bailey DATE: May 12, 2024 TIME: 10:19 AM Allergies As of Date: 05/12/2024 Noted Allergy Reaction NORCO (HYDROCODONE-ACETAMINO PHEN) 10/24/2020 14 - Other: See Comments Comments: Weird dreams. 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 For cholesterol. - meloxicam (MOBIC) 15 mg tablet Take 1 tablet by mouth once daily. - lisinopril (ZESTRIL) 10 mg tablet Take 1 tablet by mouth once daily. - hydroCHLOROthiazide 25 mg tablet Take 1 tablet by mouth once daily. - CPAP CPAP Supplies, All Necessary equipment including tubing and full mask ICD G47.33 - HAIR, SKIN AND NAILS, BIOTIN, ORAL Take 2 tablets by mouth once daily. - diphenhydrAMINE-Acetam inophen (TYLENOL PM EXTRA STRENGTH) 25-500 mg tab At bedtime for sleep - ascorbic acid (VITAMIN C ORAL) Take 1 tablet by mouth once daily. - elderberry fruit (ELDERBERRY ORAL) Take 2 Doses by mouth once daily. - CPAP 30 day download for And please send chin strap Auto PAP @ 5-20 cm of water with humidification. Mask (per patient preference) optional chin strap (if indicated) , filters, tubing, humidifier and lifetime supplies. - TURMERIC ORAL Take by mouth once daily. With curcumin - Black Cohosh 40 mg tab Take 1 tablet by mouth. Take 1 tablet every other day - ferrous sulfate 325 mg (65 mg iron) tablet Take 650 mg by mouth daily with breakfast. - cholecalciferol (VITAMIN D3) 50 mcg (2,000 unit) tablet Take by mouth. - Fiber Cap Take 3 capsules by mouth once daily. - multivitamins(DAILY MULTIVITAMIN TAB) Take one(1) tablet daily. Problem List As Of Date 05/12/2024 Noted Resolved Dermatophytosis of foot [B35.3] 02/05/2006 03/07/2015 Hereditary and idiopathic peripheral neuropathy* 10/24/2020 Hearing Loss in Left Ear [H91.92] 03/27/2009 Post-menopausal bleeding [N95.0] 11/21/2011 03/28/2016 Thickened endometrium [R93.89] 12/05/2011 03/28/2016 Chester of foot [L84] 08/17/2013 03/28/2016 Primary osteoarthritis of right hip [M16.11] 08/09/2015 Arthritis of right hip [M16.11] 08/09/2015 10/24/2020 Hyperlipidemia LDL goal <100 [E78.5] 01/18/2016 Hypertension, essential [I10] 01/02/2020 SIOBHAN on CPAP [G47.33] 01/27/2020 Obesity, Class I, BMI 30-34.9 [E66.811] 10/25/2020 Chronic kidney insufficiency, stage 3 (moderate*08/25/2023 Impaired fasting glucose [R73.01] 04/06/2023 Venous insufficiency [I87.2] 09/02/2023 Encounter Status:Closed by LUIGI HULL on 05/12/24 Normal [facility] CNOVon 05-11-2024 CNOV Office Visit (ORMDNA ) AZALEA MOTT ([id number]) 1950 F Date Time Provider Department 05/11/24 10:40 AM ELIGIO GIBBONS During your visit today, we recorded the following information about you: Eligio Gibbons MD 05/11/2024 10:41 AM Signed CONSULT ORTHOPAEDIC: HIP PRIMARY CARE PHYSICIAN: Navdeep Ulloa MD REFERRING PROVIDER: Bryan Linda [address] [facility] [id number] ASSESSMENT AND PLAN This is a 74-year-old female presents with severe right hip pain. Patient states she has had right hip pain for the last year but worse over the past few months. Patient has x-ray showing severe degenerative changes with complete joint space narrowing. Patient unfortunately has this affect her activities of daily living as well as her hobbies. And she cannot enjoy them. Patient has BMI of 34. Does have history of CKD stage III, no history of diabetes and history of blood clots history of blood thinners no centimeters past medication history of smoking no history of diabetes. Has taken Mobic for the pain with no improvement. Patient has failed conservative treatment for with regards to their R hip degenerative disease. Discussed surgical treatment in the form of a total hip replacement to address their condition. Discussed the benefits of the operation as well as the risks which include infection, dislocation, sciatic nerve palsy, dislocation, fracture, loosening of the components, DVT/PE, further need for revision surgery, and other complications related to anesthesia. Discussed various approaches used for total hip arthroplasty including posterior and Anterior-Based Muscle Sparing (ABMS). Patient understands the procedure, risks, and benefits and wishes to proceed with a R posterior total hip arthroplasty. Will schedule appointment for Preop Anesthesia Evaluation. The surgery will be [facility]. Surgery: R Kvng Posterior SYLVESTER DVT ppx: ASA Abx: Ancef TXA: IV Eligio Gibbons MD Impression: Right Hip Severe Degenerative Osteoarthritis, Primary Diagnoses: No diagnosis found. Based upon the evaluation today and after discussions with Azalea Mott, Azalea Mott has significant, worsening pain at the hip. This pain is increased with activity and weight bearing, and interferes with activities of daily living. These symptoms have continued despite a number of non-surgical measures, including a trial of oral pain medication (for at least 12 weeks). At this point, the patient will not benefit from further PT due to the severity of their condition. The patient's physical examination is consistent with limitations in range of motion, pain with passive range of motion, and an antalgic gait. These examination findings are corroborated by imaging findings of joint space narrowing, periarticular osteophyte formation, and subchondral sclerosis. The patient has been treated by the practice and all reasonable treatments have failed to control the disease, which causes significant pain and limits activities of daily living. The patient has failed conservative treatment and joint replacement surgery was discussed and agreed upon by both provider and patient. The patient has elected to proceed with surgical management to improve function and relieve pain refractory to non-surgical measures: Right Primary Total Hip Arthroplasty as evidenced by six months of unsuccessful non-operative treatment as outlined in the HPI below. Surgery Details Date and Location: At [place] . Implants: [employer] Robotic: Yes The risks and benefits of surgery were discussed at length including but not limited to the risks of infection, bleeding, nerve or blood vessel injury, deep venous thrombosis, pulmonary embolism, , paralysis, hip dislocation, leg length discrepancy (including requiring use of permanent shoe lift), bone fracture, component loosening or failure requiring re-operation or amputation. Informed consent was obtained and the patient was scheduled. We also discussed fixation strategies including cement and cementless fixation and modern alternative bearings including metal or ceramic with cross-linked polyethylene, [id number] and [id number] as well as advantages and disadvantages of each. We also discussed less invasive surgical approaches and reported benefits and risks of these approaches. The patient has been ordered: No orders found for this visit on 05/11/24. Anemia Screen Albumin Level HbA1C ts CONSULTS: IMPACT/PACE Consult for preoperative clearance. Risk Factors for Total Knee Arthroplasty (TKA) Major Risk Factors Obesity Moderate Risk High: BMI > 40 Moderate: BMI 30-40 Normal: BMI < 30 Diabetes normal High: A1C > 8 Moderate: A1C 7-8 Normal: A1C < 7 Hx of DVT / PE normal High: dx of DVT / PE Normal: no dx of DV (more content not included)... Normal [facility] XR LUMBAR SPECIFY 1Von 05-11 XR LUMBAR SPECIFY 1V * * *Final Report* * * DATE OF EXAM: May 11 2024 10:54AM ОЛЕГ 5234 - XR LUMBAR SPECIFY 1V / PROCEDURE REASON: M16.11-Primary osteoarthritis of right hip * * * * Physician Interpretation * * * * PROCEDURE: Lateral views of the lumbar spine INDICATION: Primary osteoarthritis of right hip .lower back pain TECHNIQUE: XR LUMBAR SPECIFY 1V, XR LUMBAR SPECIFY 1V COMPARISON: None FINDINGS/ IMPRESSION:: Weightbearing and sitting lateral views of the lumbar spine and pelvis were obtained for preoperative planning. There is mild multilevel degenerative disc disease, most prominent at L3-4. Lower lumbar facet arthrosis without pars defects. No fracture or significant subluxation. Study Director: RACHELLE Transcribe Date/Time: May 13 2024 3:27P Dictated by : MARLYN BARR MD This examination was interpreted and the report reviewed and electronically signed by: MARLYN BARR MD on May 13 2024 3:28PM EST [id number] [facility] XR LUMBAR SPECIFY 1V * * *Final Report* * * DATE OF EXAM: May 11 2024 10:54AM ОЛЕГ 5234 - XR LUMBAR SPECIFY 1V / PROCEDURE REASON: M16.11-Primary osteoarthritis of right hip * * * * Physician Interpretation * * * * PROCEDURE: Lateral views of the lumbar spine INDICATION: Primary osteoarthritis of right hip .lower back pain TECHNIQUE: XR LUMBAR SPECIFY 1V, XR LUMBAR SPECIFY 1V COMPARISON: None FINDINGS/ IMPRESSION:: Weightbearing and sitting lateral views of the lumbar spine and pelvis were obtained for preoperative planning. There is mild multilevel degenerative disc disease, most prominent at L3-4. Lower lumbar facet arthrosis without pars defects. No fracture or significant subluxation. Study Director: RACHELLE Transcribe Date/Time: May 13 2024 3:27P Dictated by : MARLYN BARR MD This examination was interpreted and the report reviewed and electronically signed by: MARLYN BARR MD on May 13 2024 3:28PM EST [id number] [facility] (FRWS ) AZALEA MOTT Vanesa ([id number]) 1950 F Date Time Provider Department 04/22/24 11:00 AM BRYAN LINDA V LOCATED WITHIN [facility] During your visit today, we recorded the following information about you: Wanda Meadows MA 04/22/2024 11:25 AM Signed AMB ROOMING INTAKE FLOWSHEET DATA Risk Screening Do you have concerns about personal safety or safety in the home?: No Pain Pain Level: 8 Pain Location: Hip-Right Description: Sharp Duration Amount of Time: (ongoing) Frequency: Intermittent Intervention/Comfort measure: Exercise Patient here today for 9 weeks 2 days post visit. Returning after PT visits. Did not see improvement with PT. Stopped taking Meloxicam because it does not hold her pain. She switched back to ibuprofen because she can take more when the pain starts back up. Bryan Linda V, DO 04/22/2024 11:25 AM Signed SERVICE DATE: April 22, 2024 PCP: Navdeep Ulloa MD Subjective Patient ID: Azalea is a 74 year old female. Chief Complaint: Patient presents with: 9 week 2 days post visit OA right hip PAIN EVALUATION 04/22/2024 1045 Pain Level: 8 Pain Location: Hip-Right Description: Sharp Duration Amount of Time: -- ongoing Frequency: Intermittent Intervention/Comfort measure: Exercise HPI Patient presents today for follow-up of right hip arthritis. Been discharged from physical therapy due to been maximizing improvement. She states that she continues to have hip and leg pain that is limiting her ability to be active. She would like to discuss next steps. Review of Systems ACTIVE PROBLEM LIST Hearing Loss in Left Ear Primary Osteoarthritis of Right Hip Hyperlipidemia Ldl Goal <100 Hypertension, Essential Siobhan On Cpap Obesity, Class I, Bmi 30-34.9 Chronic Kidney Insufficiency, Stage 3 (Moderate) (Hcc) Impaired Fasting Glucose Venous Insufficiency PAST MEDICAL HISTORY Diagnosis Date Cholelithiasis with acute cholecystitis with biliary obstruction 09/2020 Chronic otitis media of both ears 1955 COVID-19 01/30/2021 home antigen test Diverticulosis of colon (without mention of hemorrhage) Diverticulosis Hearing loss in left ear 03/27/2009 Hereditary and idiopathic peripheral neuropathy Hyperlipidemia LDL goal <100 01/18/2016 Hypertension, essential 01/02/2020 Obesity, Class I, BMI 30-34.9 10/25/2020 SIOBHAN (obstructive sleep apnea) 01/27/2020 Personal history of colonic polyps 10/18/2004 hyperplastic Colon polyps Unspecified hemorrhoids without mention of complication Hemorrhoids PAST SURGICAL HISTORY Procedure Laterality Date ADENOIDECTOMY PRIMARY Adenoidectomy COLONOSCOPY FLX DX W/COLLJ SPEC WHEN PFRMD 10/18/2004 Colonoscopy-repeat in -2014 COLONOSCOPY FLX DX W/COLLJ SPEC WHEN PFRMD 02/13/2017 [id number]-[id number] 10 years HYSTEROSCOPY BX W/WO DANDC 12/2011 endometrial polyp LAPAROSCOPIC CHOLECYSTECTOMY 09/24/2020 LAPS ABD PRTMANDOMENTUM DX W/WO SPEC BR/WA SPX Laparoscopy MASTOIDECTOMY,COMPLETE Left 1955 Mastoidectomy, left TONSILLECTOMY PRIMARY/SECONDARY Tonsillectomy FAMILY HISTORY Problem Relation Age of Onset Hypertension Mother Asthma Mother Diabetes Mother COPD Mother other (crohns [Other]) Mother Cancer Father NON HODGKINS LYMPHOMA Heart Father CHF Stroke Father age 82 Heart Sister CHF other (diabetes mellitus [Other]) Sister Hypertension Sister Pneumonia Sister Fibromyalgia Sister Kidney Disease Sister Pneumonia Brother other (Covid 19 sequelae) Brother No Known Problems Brother No Known Problems Brother Diabetes Maternal Grandmother Stroke Paternal Grandfather Tuberculosis Paternal Grandfather Social History Tobacco Use Smoking status: Never Smokeless tobacco: Never Vaping Use Vaping status: Never Used Substance Use Topics Alcohol use: No Drug use: No ALLERGIES Allergen Reactions [place] [Hydrocodone-* Other: See Comments Weird dreams. MEDICATIONS: atorvastatin (LIPITOR) 10 mg tablet Take 1 tablet by mouth daily at bedtime. For cholesterol. meloxicam (MOBIC) 15 mg tablet Take 1 tablet by mouth once daily. (Patient not taking: Reported on 04/22/2024) lisinopril (ZESTRIL) 10 mg tablet Take 1 tablet by mouth once daily. hydroCHLOROthiazide 25 mg tablet Take 1 tablet by mouth once daily. CPAP CPAP Supplies, All Necessary equipment including tubing and full mask ICD G47.33 HAIR, SKIN AND NAILS, BIOTIN, ORAL Take 2 tablets by mouth once daily. diphenhydrAMINE-Acetam inophen (TYLENOL PM EXTRA STRENGTH) 25-500 mg tab At bedtime for sleep ascorbic acid (VITAMIN C ORAL) Take 1 tablet by mouth once daily. elderberry fruit (ELDERBERRY ORAL) Take 2 Doses by mouth once daily. CPAP 30 day download for And please send chin strap Auto PAP @ 5-20 cm of water with humidification. Mask (per patient preference) optional chin strap (if indicated) , filt (more content not included)... Normal [facility] CNTHERAPYon 04-14-2024 CNTHERAPY OT/PT/Speech Visit (PTWS) AZALEA MOTT ([id number]) 1950 F Date Time Provider Department 04/14/24 12:30 PM PEGGY PHILLIPS PTESE Date Time Provider Department Center 04/14/2024 12:30 PM [id number], SEAN PTESE Eugene Reason for Visit: PT Discharge [752] Primary Visit Diagnosis:Primary osteoarthritis of right hip [M16.11] Allergies As of Date: 04/14/2024 Noted Allergy Reaction NORCO (HYDROCODONE-ACETAMINO PHEN) 10/24/2020 14 - Other: See Comments Comments: Weird dreams. Date Reviewed: 03/31/2024 Reviewed by: Emily Bronson LPN - Fully Assessed Prescriptions as of 04/14/2024 - atorvastatin (LIPITOR) 10 mg tablet Take 1 tablet by mouth daily at bedtime. For cholesterol. - meloxicam (MOBIC) 15 mg tablet Take 1 tablet by mouth once daily. - lisinopril (ZESTRIL) 10 mg tablet Take 1 tablet by mouth once daily. - hydroCHLOROthiazide 25 mg tablet Take 1 tablet by mouth once daily. - CPAP CPAP Supplies, All Necessary equipment including tubing and full mask ICD G47.33 - HAIR, SKIN AND NAILS, BIOTIN, ORAL Take 2 tablets by mouth once daily. - diphenhydrAMINE-Acetam inophen (TYLENOL PM EXTRA STRENGTH) 25-500 mg tab At bedtime for sleep - ascorbic acid (VITAMIN C ORAL) Take 1 tablet by mouth once daily. - elderberry fruit (ELDERBERRY ORAL) Take 2 Doses by mouth once daily. - CPAP 30 day download for And please send chin strap Auto PAP @ 5-20 cm of water with humidification. Mask (per patient preference) optional chin strap (if indicated) , filters, tubing, humidifier and lifetime supplies. - TURMERIC ORAL Take by mouth once daily. With curcumin - Black Cohosh 40 mg tab Take 1 tablet by mouth. Take 1 tablet every other day - ferrous sulfate 325 mg (65 mg iron) tablet Take 650 mg by mouth daily with breakfast. - cholecalciferol (VITAMIN D3) 50 mcg (2,000 unit) tablet Take by mouth. - Fiber Cap Take 3 capsules by mouth once daily. - multivitamins(DAILY MULTIVITAMIN TAB) Take one(1) tablet daily. [facility] AZALE[facility] ([id number]) 1950 F Date Time Provider Department 04/04/24 NAVDEEP ULLOA INTMWS During your visit today, we recorded the following information about you: Neeta Miles LPN 04/04/2024 12:47 PM Signed ----- Message from Navdeep Ulloa MD sent at 04/04/2024 8:38 AM EST ----- Result reviewed. Start nitrofurantoin 100 mg twice daily x 7 days for urinary tract infection. Neeta Miles LPN 04/04/2024 12:50 PM Signed Patient notified of below recommendation, pharmacy has already contact the Patient that Macrobid RX is ready for pickup. Neeta Miles LPN Allergies As of Date: 04/04/2024 Noted Allergy Reaction NORCO (HYDROCODONE-ACETAMINO PHEN) 10/24/2020 14 - Other: See Comments Comments: Weird dreams. Date Reviewed: 03/31/2024 Reviewed by: Emily Bronson LPN - Fully Assessed Reason for Visit: Results [95] Prescriptions as of 04/04/2024 - nitrofurantoin monohydrate and macrocrystal (MACROBID) 100 mg capsule Take 1 capsule by mouth two times a day for 7 days. - atorvastatin (LIPITOR) 10 mg tablet Take 1 tablet by mouth daily at bedtime. For cholesterol. - meloxicam (MOBIC) 15 mg tablet Take 1 tablet by mouth once daily. - lisinopril (ZESTRIL) 10 mg tablet Take 1 tablet by mouth once daily. - hydroCHLOROthiazide 25 mg tablet Take 1 tablet by mouth once daily. - CPAP CPAP Supplies, All Necessary equipment including tubing and full mask ICD G47.33 - HAIR, SKIN AND NAILS, BIOTIN, ORAL Take 2 tablets by mouth once daily. - diphenhydrAMINE-Acetam inophen (TYLENOL PM EXTRA STRENGTH) 25-500 mg tab At bedtime for sleep - ascorbic acid (VITAMIN C ORAL) Take 1 tablet by mouth once daily. - elderberry fruit (ELDERBERRY ORAL) Take 2 Doses by mouth once daily. - CPAP 30 day download for And please send chin strap Auto PAP @ 5-20 cm of water with humidification. Mask (per patient preference) optional chin strap (if indicated) , filters, tubing, humidifier and lifetime supplies. - TURMERIC ORAL Take by mouth once daily. With curcumin - Black Cohosh 40 mg tab Take 1 tablet by mouth. Take 1 tablet every other day - ferrous sulfate 325 mg (65 mg iron) tablet Take 650 mg by mouth daily with breakfast. - cholecalciferol (VITAMIN D3) 50 mcg (2,000 unit) tablet Take by mouth. - Fiber Cap Take 3 capsules by mouth once daily. - multivitamins(DAILY MULTIVITAMIN TAB) Take one(1) tablet daily. Problem List As Of Date 04/04/2024 Noted Resolved Dermatophytosis of foot [B35.3] 02/05/2006 03/07/2015 Hereditary and idiopathic peripheral neuropathy* 10/24/2020 Hearing Loss in Left Ear [H91.92] 03/27/2009 Post-menopausal bleeding [N95.0] 11/21/2011 03/28/2016 Thickened endometrium [R93.89] 12/05/2011 03/28/2016 [place] of foot [L84] 08/17/2013 03/28/2016 Primary osteoarthritis of right hip [M16.11] 08/09/2015 Arthritis of right hip [M16.11] 08/09/2015 10/24/2020 Hyperlipidemia LDL goal <100 [E78.5] 01/18/2016 Hypertension, essential [I10] 01/02/2020 SIOBHAN on CPAP [G47.33] 01/27/2020 Obesity, Class I, BMI 30-34.9 [E66.811] 10/25/2020 Chronic kidney insufficiency, stage 3 (moderate*08/25/2023 Impaired fasting glucose [R73.01] 04/06/2023 Venous insufficiency [I87.2] 09/02/2023 Encounter Status:Closed by NEETA MILES on 04/04/24 [facility] CNTHERAPYon 04-04-2024 CNTHERAPY OT/PT/Speech Visit (PTWS) AZALEA MOTT ([id number]) 1950 F Date Time Provider Department 04/04/24 2:45 PM SRAVANI FELIX PTWS Date Time Provider Department Center 04/04/2024 2:45 PM [id number], MARIAH PTWS Ravin Eugene Reason for Visit: Physical Therapy [503] Primary Visit Diagnosis:Primary osteoarthritis of right hip [M16.11] Allergies As of Date: 04/04/2024 Noted Allergy Reaction NORCO (HYDROCODONE-ACETAMINO PHEN) 10/24/2020 14 - Other: See Comments Comments: Weird dreams. Date Reviewed: 03/31/2024 Reviewed by: Emily Bronson LPN - Fully Assessed Prescriptions as of 04/05/2024 - nitrofurantoin monohydrate and macrocrystal (MACROBID) 100 mg capsule Take 1 capsule by mouth two times a day for 7 days. - atorvastatin (LIPITOR) 10 mg tablet Take 1 tablet by mouth daily at bedtime. For cholesterol. - meloxicam (MOBIC) 15 mg tablet Take 1 tablet by mouth once daily. - lisinopril (ZESTRIL) 10 mg tablet Take 1 tablet by mouth once daily. - hydroCHLOROthiazide 25 mg tablet Take 1 tablet by mouth once daily. - CPAP CPAP Supplies, All Necessary equipment including tubing and full mask ICD G47.33 - HAIR, SKIN AND NAILS, BIOTIN, ORAL Take 2 tablets by mouth once daily. - diphenhydrAMINE-Acetam inophen (TYLENOL PM EXTRA STRENGTH) 25-500 mg tab At bedtime for sleep - ascorbic acid (VITAMIN C ORAL) Take 1 tablet by mouth once daily. - elderberry fruit (ELDERBERRY ORAL) Take 2 Doses by mouth once daily. - CPAP 30 day download for And please send chin strap Auto PAP @ 5-20 cm of water with humidification. Mask (per patient preference) optional chin strap (if indicated) , filters, tubing, humidifier and lifetime supplies. - TURMERIC ORAL Take by mouth once daily. With curcumin - Black Cohosh 40 mg tab Take 1 tablet by mouth. Take 1 tablet every other day - ferrous sulfate 325 mg (65 mg iron) tablet Take 650 mg by mouth daily with breakfast. - cholecalciferol (VITAMIN D3) 50 mcg (2,000 unit) tablet Take by mouth. - Fiber Cap Take 3 capsules by mouth once daily. - multivitamins(DAILY MULTIVITAMIN TAB) Take one(1) tablet daily. Normal [facility] Bacteria Ur Culton 5 Bacteria identified Cx Nom (U) CULTURE, URINE: Mixed microbiota, including predominantly: ORGANISM ID: 1 50,000-<100,000 CFU/ml Escherichia coli ORGANISM ID: 1 (ESCHERICHIA COLI) -- ANTIBIOTIC INTERPRETATION DOMINIC STATUS REFERENCE RANGE -- Ampicillin R >=32 F Susceptible <=8 , Intermediate >8 , Resistant >16 Cefazolin S <=4 F Susceptible 0-16 , Intermediate <0 or >16 , Resistant >16 For uncomplicated urinary tract infections, cefazolin results can be used to predict susceptibility or resistance to cephalexin. Ceftriaxone S <=1 F Susceptible <=1 , Intermediate >1 , Resistant >=4 Cefepime S <=1 F Susceptible <=2 , Susceptible-Dose Dependent >2 , Resistant >=16 Ertapenem S <=0.5 F Susceptible <=0.5 , Intermediate >.5 , Resistant >1 Meropenem S <=0.25 F Susceptible <=1 , Intermediate >1 , Resistant >2 Ampicillin/Sulbact R >=32 F Susceptible <=8 , Intermediate >8 , Resistant >16 Piperacillin/Tazobac S <=4 F Susceptible <16 , Susceptible-Dose Dependent >=16 , Resistant >=32 Gentamicin S <=1 F Susceptible <=2 , Intermediate >2 , Resistant >=8 Tobramycin S <=1 F Susceptible <4 , Intermediate >=4 , Resistant >=8 Trimeth sulfameth S <=20 F Susceptible <=40 , Resistant >40 Ciprofloxacin S <=0.25 F Susceptible <0.5 , Intermediate >=.5 , Resistant >=1 Nitrofurantoin S <=16 F Susceptible <=32 , Intermediate >32 , Resistant >64 Abnormal [facility] Comment on above: Performed By: #### 6 30-4 ####[facility] LABCLIA [id number] [address] [facility] CNOVon 03-31-2024 CNOV Office Visit (INTMWS ) AZALEA MOTT ([id number]) 1950 F Date Time Provider Department 03/31/24 6:20 PM NAVDEEP ULLOA INTMWS During your visit today, we recorded the following information about you: Temperature Pulse Respiration Blood pressure 98.2 degrees 71/minute 14/minute 136/72 Weight Height 98.5 kg 1.702 m Navdeep Ulloa MD 03/31/2024 6:28 PM Signed This note was created using NoteWriter. Subjective Patient presents with: Same Day Appointment: possible UTI x 1 day, burning and frequency and blood Azalea Mott is a 74 year old female with above concerns. Review of Systems Constitutional: Negative for chills and fever. Gastrointestinal: Negative for abdominal pain. Genitourinary: Negative for flank pain. ACTIVE PROBLEM LIST Hearing Loss in Left Ear Primary Osteoarthritis of Right Hip Hyperlipidemia Ldl Goal <100 Hypertension, Essential Siobhan On Cpap Obesity, Class I, Bmi 30-34.9 Chronic Kidney Insufficiency, Stage 3 (Moderate) (Hcc) Impaired Fasting Glucose Venous Insufficiency Social History Tobacco Use Smoking status: Never Smokeless tobacco: Never Substance Use Topics Alcohol use: No Drug use: No Current Outpatient Medications Medication Sig atorvastatin (LIPITOR) 10 mg tablet Take 1 tablet by mouth daily at bedtime. For cholesterol. meloxicam (MOBIC) 15 mg tablet Take 1 tablet by mouth once daily. lisinopril (ZESTRIL) 10 mg tablet Take 1 tablet by mouth once daily. hydroCHLOROthiazide 25 mg tablet Take 1 tablet by mouth once daily. CPAP CPAP Supplies, All Necessary equipment including tubing and full mask ICD G47.33 HAIR, SKIN AND NAILS, BIOTIN, ORAL Take 2 tablets by mouth once daily. diphenhydrAMINE-Acetam inophen (TYLENOL PM EXTRA STRENGTH) 25-500 mg tab At bedtime for sleep ascorbic acid (VITAMIN C ORAL) Take 1 tablet by mouth once daily. elderberry fruit (ELDERBERRY ORAL) Take 2 Doses by mouth once daily. CPAP 30 day download for And please send chin strap Auto PAP @ 5-20 cm of water with humidification. Mask (per patient preference) optional chin strap (if indicated) , filters, tubing, humidifier and lifetime supplies. TURMERIC ORAL Take by mouth once daily. With curcumin Black Cohosh 40 mg tab Take 1 tablet by mouth. Take 1 tablet every other day ferrous sulfate 325 mg (65 mg iron) tablet Take 650 mg by mouth daily with breakfast. cholecalciferol (VITAMIN D3) 50 mcg (2,000 unit) tablet Take by mouth. Fiber Cap Take 3 capsules by mouth once daily. multivitamins(DAILY MULTIVITAMIN TAB) Take one(1) tablet daily. No current facility-administered medications for this visit. Objective BP 136/72 (BP Site: Right Arm, BP Position: Sitting, BP Cuff Size: Large Adult) Pulse 71 Temp 36.8 ?C (98.2 ?F) Resp 14 Ht 170.2 cm (5' 7) Wt 98.5 kg (217 lb 2.5 oz) SpO2 98% BMI 34.01 kg/m? Physical Exam Constitutional: Appearance: She is not ill-appearing or diaphoretic. Abdominal: Tenderness: There is no abdominal tenderness. There is no right CVA tenderness or left CVA tenderness. Latest Ref Rng 03/31/2024 GLUCOSE UA (POCT) Negative mg/dL Negative BILIRUBIN UA (POCT) Negative Negative KETONE UA (POCT) Negative mg/dL Negative SPECIFIC GRAVITY UA (POCT) 1.005 - 1.030 >=1.030 HEMOGLOBIN/BLOOD UA (POCT) Negative Moderate ! PH UA (POCT) 4.5 - 8.0 7.0 PROTEIN UA (POCT) Negative mg/dL 100 ! UROBILINOGEN UA (POCT) Normal E.U./dL 0.2 NITRITE UA (POCT) Negative Negative LEUKOCYTES UA (POCT) Negative Small ! COLOR UA (POCT) Yellow CLARITY UA (POCT) Cloudy Legend: ! Abnormal Assessment and Plan 1. Dysuria - ICD9: 788.1, ICD10: R30.0 acute - UA positive for estella esterase, hematuria, and proteinuria - Send urine for culture - Patient education for prevention given - Fluids. Shared medical decision making was done and we agreed to base treatment on culture. Result in 2-3 days. - UA DIP, URINE (POC) - BACTERIAL CULTURE, URINE Navdeep Ulloa MD Allergies As of Date: 03/31/2024 Noted Allergy Reaction NORCO (HYDROCODONE-ACETAMINO PHEN) 10/24/2020 14 - Other: See Comments Comments: Weird dreams. Date Reviewed: 03/31/2024 Reviewed by: Emily Bronson LPN - Fully Assessed Reason for Visit: Same Day Appointment [255] Cmt: possible UTI x 1 day, burning and frequency and blood Primary Visit Diagnosis:Dysuria [R30.0] Order(s):UA DIP, URINE (POC) [[id number]] Order #: [id number]. #:[id number] BACTERIAL CULTURE, URINE [SQURCUL] Order #: [id number]. #:[id number] Prescriptions as of 03/31/2024 - atorvastatin (LIPITOR) 10 mg tablet Take 1 tablet by mouth daily at bedtime. For cholesterol. - meloxicam (MOBIC) 15 mg tablet Take 1 tablet by mouth once daily. - lisinopril (ZESTRIL) 10 mg tablet Take 1 tablet by mouth once daily. - hydroCHLOROthiazide 25 mg tablet Take 1 tablet (more content not included)... Normal [facility] UA DIP, URINE (POC)on 2024 BILIRUBIN UA (POCT) Negative Negative [facility] CLARITY UA (POCT) Cloudy [facility] COLOR UA (POCT) Yellow [facility] GLUCOSE UA (POCT) Negative Negative mg/dL [facility] Hemoglobin Ql (U) Moderate Abnormal Negative [facility] Interpretation and review of laboratory results Abnormal [facility] KETONE UA (POCT) Negative Negative mg/dL [facility] LEUKOCYTES UA (POCT) Small Abnormal Negative [facility] NITRITE UA (POCT) Negative Negative [facility] PH UA (POCT) 7.0 4.5 - 8.0 [facility] Protein Ql (U) 100 mg/dL Abnormal Negative [facility] SPECIFIC GRAVITY UA (POCT) >=1.030 1.005 - 1.030 [facility] UROBILINOGEN UA (POCT) 0.2 Blanca l E.U./dL [facility] Location:[address], [place], [place], [id number] [place] [address] POINT OF CARE [facility] CNTHERAPYon 03-28-2024 CNTHERAPY OT/PT/Speech Visit (PTWS) AZALEA MOTT ([id number]) 1950 F Date Time Provider Department 03/28/24 2:45 PM PEGGY PHILLIPS PTESE Date Time Provider Department Center 03/28/2024 2:45 PM [id number], SEAN PTWS Ravin Eugene Reason for Visit: Physical Therapy [503] Primary Visit Diagnosis:Primary osteoarthritis of right hip [M16.11] Allergies As of Date: 03/28/2024 Noted Allergy Reaction NORCO (HYDROCODONE-ACETAMINO PHEN) 10/24/2020 14 - Other: See Comments Comments: Weird dreams. Date Reviewed: 02/17/2024 Reviewed by: Buffy Couch MA - Fully Assessed Prescriptions as of 03/28/2024 - atorvastatin (LIPITOR) 10 mg tablet Take 1 tablet by mouth daily at bedtime. For cholesterol. - meloxicam (MOBIC) 15 mg tablet Take 1 tablet by mouth once daily. - lisinopril (ZESTRIL) 10 mg tablet Take 1 tablet by mouth once daily. - hydroCHLOROthiazide 25 mg tablet Take 1 tablet by mouth once daily. - CPAP CPAP Supplies, All Necessary equipment including tubing and full mask ICD G47.33 - HAIR, SKIN AND NAILS, BIOTIN, ORAL Take 2 tablets by mouth once daily. - diphenhydrAMINE-Acetam inophen (TYLENOL PM EXTRA STRENGTH) 25-500 mg tab At bedtime for sleep - ascorbic acid (VITAMIN C ORAL) Take 1 tablet by mouth once daily. - elderberry fruit (ELDERBERRY ORAL) Take 2 Doses by mouth once daily. - CPAP 30 day download for And please send chin strap Auto PAP @ 5-20 cm of water with humidification. Mask (per patient preference) optional chin strap (if indicated) , filters, tubing, humidifier and lifetime supplies. - TURMERIC ORAL Take by mouth once daily. With curcumin - Black Cohosh 40 mg tab Take 1 tablet by mouth. Take 1 tablet every other day - ferrous sulfate 325 mg (65 mg iron) tablet Take 650 mg by mouth daily with breakfast. - cholecalciferol (VITAMIN D3) 50 mcg (2,000 unit) tablet Take by mouth. - Fiber Cap Take 3 capsules by mouth once daily. - multivitamins(DAILY MULTIVITAMIN TAB) Take one(1) tablet daily. Range Mechanic: Addendum Therapy (PT/OT/Speech/Resp) ID: [id number] 03/28/2024 3:21 PM Author: PEGGY PHILLIPS Signed by PEGGY PHILLIPS PT on 03/28/2024 at 3:21 PM * * * This document replaces document [id number] * * * Document text: Program_ID:[id number] Access Code: [email or web address] URL: [email or web address] Date: 03-28-2024 Prepared By: Peggy Phillips Program Notes Exercises - Supine Heel Slide - 1 x daily - 7 x weekly - 3 sets - 10 reps - Clamshell - 1 x daily - 7 x weekly - 3 sets - 10 reps - Supine Knee Extension Strengthening - 1 x daily - 7 x weekly - 3 sets - 10 reps - Standing Hip Abduction with Counter Support - 1 x daily - 7 x weekly - 3 sets - 10 reps - Standing Hip Extension with Counter Support - 1 x daily - 7 x weekly - 3 sets - 10 reps - Posterior Pelvic Tilt with Adduction Using Pillow in Hooklying - 1 x daily - 7 x weekly - 3 sets - 10 reps -- Normal [facility] THERAPY NTon 03-28-2024 THERAPY NT HNO ID: [id number] Author: PEGGY PHILLIPS PT Service: ? Author Type: Physical Therapist Type: Therapy (PT/OT/Speech/Resp) Filed: 03/28/2024 15:21 Note Text: Program_ID:[id number] Access Code: [email or web address] URL: [email or web address]/ Date: 03-28-2024 Prepared By: Peggy Phillips Program Notes Exercises - Supine Heel Slide - 1 x daily - 7 x weekly - 3 sets - 10 reps - Clamshell - 1 x daily - 7 x weekly - 3 sets - 10 reps - Supine Knee Extension Strengthening - 1 x daily - 7 x weekly - 3 sets - 10 reps - Standing Hip Abduction with Counter Support - 1 x daily - 7 x weekly - 3 sets - 10 reps - Standing Hip Extension with Counter Support - 1 x daily - 7 x weekly - 3 sets - 10 reps - Posterior Pelvic Tilt with Adduction Using Pillow in Hooklying - 1 x daily - 7 x weekly - 3 sets - 10 reps Normal [facility] CNTHERAPYon 03-21-2024 CNTHERAPY OT/PT/Speech Visit (PTWS) AZALEA [id number]) 1950 F Date Time Provider Department 03/21/24 2:45 PM SRAVANI FELIX PTWS Date Time Provider Department Center 03/21/2024 2:45 PM [id number], MARIAH PTWS Ravinjuni Eugene Reason for Visit: Physical Therapy [503] Primary Visit Diagnosis:Primary osteoarthritis of right hip [M16.11] Allergies As of Date: 03/21/2024 Noted Allergy Reaction NORCO (HYDROCODONE-ACETAMINO PHEN) 10/24/2020 14 - Other: See Comments Comments: Weird dreams. Date Reviewed: 02/17/2024 Reviewed by: Buffy Couch MA - Fully Assessed Prescriptions as of 03/28/2024 - atorvastatin (LIPITOR) 10 mg tablet Take 1 tablet by mouth daily at bedtime. For cholesterol. - meloxicam (MOBIC) 15 mg tablet Take 1 tablet by mouth once daily. - lisinopril (ZESTRIL) 10 mg tablet Take 1 tablet by mouth once daily. - hydroCHLOROthiazide 25 mg tablet Take 1 tablet by mouth once daily. - CPAP CPAP Supplies, All Necessary equipment including tubing and full mask ICD G47.33 - HAIR, SKIN AND NAILS, BIOTIN, ORAL Take 2 tablets by mouth once daily. - diphenhydrAMINE-Acetam inophen (TYLENOL PM EXTRA STRENGTH) 25-500 mg tab At bedtime for sleep - ascorbic acid (VITAMIN C ORAL) Take 1 tablet by mouth once daily. - elderberry fruit (ELDERBERRY ORAL) Take 2 Doses by mouth once daily. - CPAP 30 day download for And please send chin strap Auto PAP @ 5-20 cm of water with humidification. Mask (per patient preference) optional chin strap (if indicated) , filters, tubing, humidifier and lifetime supplies. - TURMERIC ORAL Take by mouth once daily. With curcumin - Black Cohosh 40 mg tab Take 1 tablet by mouth. Take 1 tablet every other day - ferrous sulfate 325 mg (65 mg iron) tablet Take 650 mg by mouth daily with breakfast. - cholecalciferol (VITAMIN D3) 50 mcg (2,000 unit) tablet Take by mouth. - Fiber Cap Take 3 capsules by mouth once daily. - multivitamins(DAILY MULTIVITAMIN TAB) Take one(1) tablet daily. Range Mechanic: Therapy (PT/OT/Speech/Resp) ID: [id number] 03/21/2024 3:18 PM Author: SRAVANI FELIX Signed by SRAVANI FELIX NET WEB APPLICATION DEVELOPER on 03/21/2024 at 3:19 PM Document text: Program_ID:[id number] Access Code: [email or web address] URL: [email or web address] Date: 03-21-2024 Prepared By: Peggy Phillips Program Notes Exercises - Bent Knee Fallouts with Alternating Legs - 1 x daily - 7 x weekly - 3 sets - 10 reps - Supine Heel Slide - 1 x daily - 7 x weekly - 3 sets - 10 reps - Supine Straight Leg Raises - 1 x daily - 7 x weekly - 3 sets - 10 reps - Clamshell - 1 x daily - 7 x weekly - 3 sets - 10 reps - Sidelying Hip Abduction - 1 x daily - 7 x weekly - 3 sets - 10 reps - Seated Hamstring Stretch - 3 x daily - 7 x weekly - 1 sets - 3 reps - Seated Calf Stretch with Strap - 3 x daily - 7 x weekly - 1 sets - 3 reps -- Normal [facility] THERAPY NTon 03-21-2024 THERAPY NT HNO ID: [id number] Author: SRAVANI FELIX PTA Service: ? Author Type: Loans Consultant Type: Therapy (PT/OT/Speech/Resp) Filed: 03/21/2024 15:19 Note Text: Program_ID:[id number] Access Code: [email or web address] URL: [email or web address] Date: 03-21-2024 Prepared By: Peggy Phillips Program Notes Exercises - Bent Knee Fallouts with Alternating Legs - 1 x daily - 7 x weekly - 3 sets - 10 reps - Supine Heel Slide - 1 x daily - 7 x weekly - 3 sets - 10 reps - Supine Straight Leg Raises - 1 x daily - 7 x weekly - 3 sets - 10 reps - Clamshell - 1 x daily - 7 x weekly - 3 sets - 10 reps - Sidelying Hip Abduction - 1 x daily - 7 x weekly - 3 sets - 10 reps - Seated Hamstring Stretch - 3 x daily - 7 x weekly - 1 sets - 3 reps - Seated Calf Stretch with Strap - 3 x daily - 7 x weekly - 1 sets - 3 reps Normal [facility] CNPNon 03-15-2024 CNPN Telephone (4CQ) AZALEA MOTT ([id number]) 1950 F Date Time Provider Department 03/15/24 BRYAN LINDA V 4CQ During your visit today, we recorded the following information about you: Bettie Thayer 03/15/2024 10:50 AM Signed Pt stated her prescription was sent to [facility]. She asked to have this switched to [facility]. Please advise. Thank you Allergies As of Date: 03/15/2024 Noted Allergy Reaction NORCO (HYDROCODONE-ACETAMINO PHEN) 10/24/2020 14 - Other: See Comments Comments: Weird dreams. Date Reviewed: 02/17/2024 Reviewed by: Buffy Couch MA - Fully Assessed Order(s):meloxicam (MOBIC) 15 mg tabletTake 1 tablet by mouth once daily.Disp: 30 tabletRfl: 1 Prescriptions as of 03/15/2024 - meloxicam (MOBIC) 15 mg tablet Take 1 tablet by mouth once daily. - lisinopril (ZESTRIL) 10 mg tablet Take 1 tablet by mouth once daily. - hydroCHLOROthiazide 25 mg tablet Take 1 tablet by mouth once daily. - CPAP CPAP Supplies, All Necessary equipment including tubing and full mask ICD G47.33 - HAIR, SKIN AND NAILS, BIOTIN, ORAL Take 2 tablets by mouth once daily. - atorvastatin (LIPITOR) 10 mg tablet Take 1 tablet by mouth daily at bedtime. For cholesterol. - diphenhydrAMINE-Acetam inophen (TYLENOL PM EXTRA STRENGTH) 25-500 mg tab At bedtime for sleep - ascorbic acid (VITAMIN C ORAL) Take 1 tablet by mouth once daily. - elderberry fruit (ELDERBERRY ORAL) Take 2 Doses by mouth once daily. - CPAP 30 day download for And please send chin strap Auto PAP @ 5-20 cm of water with humidification. Mask (per patient preference) optional chin strap (if indicated) , filters, tubing, humidifier and lifetime supplies. - TURMERIC ORAL Take by mouth once daily. With curcumin - Black Cohosh 40 mg tab Take 1 tablet by mouth. Take 1 tablet every other day - ferrous sulfate 325 mg (65 mg iron) tablet Take 650 mg by mouth daily with breakfast. - cholecalciferol (VITAMIN D3) 50 mcg (2,000 unit) tablet Take by mouth. - Fiber Cap Take 3 capsules by mouth once daily. - multivitamins(DAILY MULTIVITAMIN TAB) Take one(1) tablet daily. Problem List As Of Date 03/15/2024 Noted Resolved Dermatophytosis of foot [B35.3] 02/05/2006 03/07/2015 Hereditary and idiopathic peripheral neuropathy* 10/24/2020 Hearing Loss in Left Ear [H91.92] 03/27/2009 Post-menopausal bleeding [N95.0] 11/21/2011 03/28/2016 Thickened endometrium [R93.89] 12/05/2011 03/28/2016 [place] of foot [L84] 08/17/2013 03/28/2016 Primary osteoarthritis of right hip [M16.11] 08/09/2015 Arthritis of right hip [M16.11] 08/09/2015 10/24/2020 Hyperlipidemia LDL goal <100 [E78.5] 01/18/2016 Hypertension, essential [I10] 01/02/2020 SIOBHAN on CPAP [G47.33] 01/27/2020 Obesity, Class I, BMI 30-34.9 [E66.811] 10/25/2020 Chronic kidney insufficiency, stage 3 (moderate*08/25/2023 Impaired fasting glucose [R73.01] 04/06/2023 Venous insufficiency [I87.2] 09/02/2023 Prescriptions ordered this encounter Disp Refills Start End MELOXICAM 15 MG TABLET 30 t* 1 03/15/2024 Route: ORAL Sig: Take 1 tablet by mouth once daily. Medications Discontinued During This Encounter Prescriptions - meloxicam (MOBIC) 15 mg tablet (Discontinued) Take 1 tablet by mouth once daily. Encounter Status:Closed by BRYAN LINDA V on 03/15/24 [facility] [id number] 03-14-2024 [id number] HNO ID: [id number] Author: PEGGY PHILLIPS PT Service: ? Author Type: Physical Therapist Type: [id number] Filed: 03/14/2024 13:20 Note Text: [facility] Physical Therapy Plan of Care Certification Patient Name: Azalea Mott : 1950 [facility] #: [id number] Date: 03/14/2024 To: Bryan Linda V, DO From Therapist: Peggy Phillips PT RE: Patient Certification/ Recertification Your review, approval and electronic signature are required in order to comply with Payor: MEDICARE / Plan: MEDICARE A AND B / Product Type: Medicare / regulations. The identified Physical Therapy PLAN OF CARE for the patient is as follows: M16.11 Primary osteoarthritis of right hip (primary encounter diagnosis) PLAN OF CARE: Assessment: Azalea Mott presents with diagnosis of R hip OA that interferes with rising from a chair, sitting, standing, walking, stair negotiation, heavy exertion, physical activities, sleeping . The patient presents with impairments in ADL's, gait, joint mobility, overall function, range of motion, strength, and symptom management. Patient did not complete the PROMIS? (Patient Reported Outcome Measures Information System). Prognosis for therapy is Fair due to: clinical presentation, multiple co- morbidities, chronic nature of impairments, limited tolerance to activity . The patient will benefit from skilled therapy services to meet the goals established for this plan of care as noted below. Goals for Episode of Care: established 03/14/24 Harvey in home exercise program. Patient will decrease pain rating by 2 points to meet minimal clinical important difference for numeric pain rating scale. Patient will increase passive ROM of R hip to min to mod limitations to allow pt to to improve postural alignment and to improve performance of ADLs. Patient will demonstrate increase in RLE strength to 4+/5 during manual muscle testing in order to improve function for basic self-care tasks, home management tasks, leisure / recreation skills, and prior functional tasks. Perform rising from a chair, sitting, and standing with decreased report of symptoms/pain in 6-8 weeks. Perform sleeping without pain. Time Frame for Goals and Treatment : 05/12/24 Planned Interventions, Frequency, and Duration: Current Frequency: 1x/week Duration: 8 weeks Total Number of Visits Planned: 8 Planned Treatment Interventions: Therapeutic exercise (80392), Neuromuscular re-education (50847), Manual therapy (73302), Therapeutic activities (93538), Self-group home management (44684), Gait Training (14665), Patient/Family/Caregiv er Education, Body Mechanics Training PLAN FOR NEXT VISIT: Assess tolerance for HEP, try SciFit. may try step ups or mini squats Patient demonstrates good understanding of plan of care and treatment. The above goals and plan of care were discussed and agreed upon by patient/family. For further details regarding this patient refer to the Physical Therapy electronically documented visit dated 03/14/2024. Provider Attestation I have reviewed the treatment plan for Azalea Mott, CCF# [id number] for the period of 03/14/24 -- 05/12/24, established on 03/14/2024. Signature certifies the need for therapy services. [facility] CNTHERAPYon 03-14-2024 CNTHERAPY OT/PT/Speech Visit (PTWS) AZALEA MOTT ([id number]) 1950 F Date Time Provider Department 03/14/24 11:30 AM PEGGY PHILLIPS PTESE Date Time Provider Department Center 03/14/2024 11:30 AM [id number], SEAN PTESE [place] Reason for Visit: PT Eval [747] Primary Visit Diagnosis:Primary osteoarthritis of right hip [M16.11] Allergies As of Date: 03/14/2024 Noted Allergy Reaction NORCO (HYDROCODONE-ACETAMINO PHEN) 10/24/2020 14 - Other: See Comments Comments: Weird dreams. Date Reviewed: 02/17/2024 Reviewed by: Bufyf Couch MA - Fully Assessed Prescriptions as of 03/14/2024 - meloxicam (MOBIC) 15 mg tablet Take 1 tablet by mouth once daily. - lisinopril (ZESTRIL) 10 mg tablet Take 1 tablet by mouth once daily. - hydroCHLOROthiazide 25 mg tablet Take 1 tablet by mouth once daily. - CPAP CPAP Supplies, All Necessary equipment including tubing and full mask ICD G47.33 - HAIR, SKIN AND NAILS, BIOTIN, ORAL Take 2 tablets by mouth once daily. - atorvastatin (LIPITOR) 10 mg tablet Take 1 tablet by mouth daily at bedtime. For cholesterol. - diphenhydrAMINE-Acetam inophen (TYLENOL PM EXTRA STRENGTH) 25-500 mg tab At bedtime for sleep - ascorbic acid (VITAMIN C ORAL) Take 1 tablet by mouth once daily. - elderberry fruit (ELDERBERRY ORAL) Take 2 Doses by mouth once daily. - CPAP 30 day download for And please send chin strap Auto PAP @ 5-20 cm of water with humidification. Mask (per patient preference) optional chin strap (if indicated) , filters, tubing, humidifier and lifetime supplies. - TURMERIC ORAL Take by mouth once daily. With curcumin - Black Cohosh 40 mg tab Take 1 tablet by mouth. Take 1 tablet every other day - ferrous sulfate 325 mg (65 mg iron) tablet Take 650 mg by mouth daily with breakfast. - cholecalciferol (VITAMIN D3) 50 mcg (2,000 unit) tablet Take by mouth. - Fiber Cap Take 3 capsules by mouth once daily. - multivitamins(DAILY MULTIVITAMIN TAB) Take one(1) tablet daily. Range Mechanic: Addendum Therapy (PT/OT/Speech/Resp) ID: [id number] 03/14/2024 12:07 PM Author: PEGGY PHILLIPS Signed by PEGGY PHILLIPS PT on 03/14/2024 at 12:07 PM * * * This document replaces document [id number] * * * Document text: Program_ID:[id number] Access Code: [email or web address] URL: [email or web address]/ Date: 03-14-2024 Prepared By: Peggy Phillips Program Notes Exercises - Bent Knee Fallouts with Alternating Legs - 1 x daily - 7 x weekly - 3 sets - 10 reps - Supine Heel Slide - 1 x daily - 7 x weekly - 3 sets - 10 reps - Supine Straight Leg Raises - 1 x daily - 7 x weekly - 3 sets - 10 reps - Clamshell - 1 x daily - 7 x weekly - 3 sets - 10 reps - Sidelying Hip Abduction - 1 x daily - 7 x weekly - 3 sets - 10 reps -- Normal [facility] THERAPY NTon 03-14-2024 THERAPY NT HNO ID: [id number] Author: PEGGY PHILLIPS PT Service: ? Author Type: Physical Therapist Type: Therapy (PT/OT/Speech/Resp) Filed: 03/14/2024 12:07 Note Text: Program_ID:[id number] Access Code: [email or web address] URL: [email or web address]/ Date: 03-14-2024 Prepared By: Peggy Phillips Program Notes Exercises - Bent Knee Fallouts with Alternating Legs - 1 x daily - 7 x weekly - 3 sets - 10 reps - Supine Heel Slide - 1 x daily - 7 x weekly - 3 sets - 10 reps - Supine Straight Leg Raises - 1 x daily - 7 x weekly - 3 sets - 10 reps - Clamshell - 1 x daily - 7 x weekly - 3 sets - 10 reps - Sidelying Hip Abduction - 1 x daily - 7 x weekly - 3 sets - 10 reps Normal [facility] JOEL SCREENING W TOMOon 02-21 JOEL SCREENING W DIALLO * * *Final Report* * * DATE OF EXAM: Feb 22 2024 11:28AM [id number] - JOEL SCREENING W DIALLO / PROCEDURE REASON: Encounter for screening mammogram for breast cancer * * * * Physician Interpretation * * * * RESULT: [facility] [address] [place] [address] #[id number] - JOEL SCREENING W DIALLO HISTORY: Patient is 74 years old and is seen for screening and is asymptomatic in both breasts. Patient states no personal history of breast cancer. Patient states no personal history of other cancers. COMPARISON STUDIES: The present examination has been compared to prior imaging studies dated 02/03/2020 (mammogram), 02/15/2021 (mammogram), 02/19/2022 (mammogram) and 02/20/2023. MAMMOGRAM TECHNIQUE: The study was acquired using full field digital technology and interpreted from soft copy. Digital Breast Tomosynthesis (DBT) images were obtained and used to assist in the interpretation of this examination. Computer-aided detection was utilized by the radiologist in the interpretation of this examination. MAMMOGRAM FINDINGS: There are scattered areas of fibroglandular density. No suspicious masses, calcifications or other abnormalities are seen in either breast. IMPRESSION: There is no mammographic evidence of malignancy in either breast. Routine screening mammogram is recommended. Annual mammogram will be due in 1 year. BI-RADS Category 1: Negative RISK: Based on the Tyrer-Cuzick (TC) risk assessment model, this patient has a 3.0% lifetime risk of developing breast cancer, meaning they are at average risk for developing breast cancer. However, this is only an estimate based on available history provided on the patient's questionnaire. We encourage all patients to talk with their providers about these results, further recommendations for managing breast health, and appropriate supplemental screening options if the patient has dense breast tissue. Interpreting Radiologist: Gaby Valentin M.D. Electronically signed on: 02/23/2024 Study Director: HARMAN Transcribe Date/Time: Feb 22 2024 11:18A Dictated by: GBAY VALENTIN MD This examination was interpreted and the report reviewed and electronically signed by: GABY VALENTIN MD on Feb 23 2024 9:17AM EST [id number] [facility] CNOVon 02-17-2024 CNOV Office Visit (FRFHWS ) AZALEA MOTT ([id number]) 1950 F Date Time Provider Department 02/17/24 1:30 PM [facility] your visit today, we recorded the following information about you: Buffy Couch MA 02/17/2024 2:13 PM Signed Patient presents with: OA right hip AMB ROOMING INTAKE FLOWSHEET DATA Patient denies any pain today. States it is getting harder to getting out of the car and a chair. Going up and down steps one step at time. Referred by Mary Glover. X-rays done on 01/27/24. Bryan Linda V, DO 02/17/2024 2:13 PM Signed SERVICE DATE: February 17, 2024 PCP: Navdeep Ulloa MD Subjective Patient ID: Azalea is a 74 year old female. Chief Complaint: Patient presents with: OA right hip PAIN EVALUATION No data found in the last 1 encounters. HPI Patient presents today with right hip pain, getting progressively worse over the past year. He states that she has pain in the right hip and groin area. Pain is worse when she sits for a period of time then tries to stand. He denies any specific injury that she is aware of. She states that she does get aching pain that will radiate down toward the knee, particularly at night. Review of Systems ACTIVE PROBLEM LIST Hearing Loss in Left Ear Hyperlipidemia Ldl Goal <100 Hypertension, Essential Siobhan On Cpap Obesity, Class I, Bmi 30-34.9 Chronic Kidney Insufficiency, Stage 3 (Moderate) (Hcc) Impaired Fasting Glucose Venous Insufficiency PAST MEDICAL HISTORY Diagnosis Date Cholelithiasis with acute cholecystitis with biliary obstruction 09/2020 Chronic otitis media of both ears 1955 COVID-19 01/30/2021 home antigen test Diverticulosis of colon (without mention of hemorrhage) Diverticulosis Hearing loss in left ear 03/27/2009 Hereditary and idiopathic peripheral neuropathy Hyperlipidemia LDL goal <100 01/18/2016 Hypertension, essential 01/02/2020 Obesity, Class I, BMI 30-34.9 10/25/2020 SIOBHAN (obstructive sleep apnea) 01/27/2020 Personal history of colonic polyps 10/18/2004 hyperplastic Colon polyps Unspecified hemorrhoids without mention of complication Hemorrhoids PAST SURGICAL HISTORY Procedure Laterality Date ADENOIDECTOMY PRIMARY Adenoidectomy COLONOSCOPY FLX DX W/COLLJ SPEC WHEN PFRMD 10/18/2004 Colonoscopy-repeat in COLONOSCOPY FLX DX W/COLLJ SPEC WHEN PFRMD 02/13/2017 NNC-Dyhun-knijri 10 years HYSTEROSCOPY BX W/WO DANDC 12/2011 endometrial polyp LAPAROSCOPIC CHOLECYSTECTOMY 09/24/2020 LAPS ABD PRTMANDOMENTUM DX W/WO SPEC BR/WA SPX Laparoscopy MASTOIDECTOMY,COMPLETE Left 1955 Mastoidectomy, left TONSILLECTOMY PRIMARY/SECONDARY Tonsillectomy FAMILY HISTORY Problem Relation Age of Onset Hypertension Mother Asthma Mother Diabetes Mother COPD Mother other (crohns [Other]) Mother Cancer Father NON HODGKINS LYMPHOMA Heart Father CHF Stroke Father age 82 Heart Sister CHF other (diabetes mellitus [Other]) Sister Hypertension Sister Pneumonia Sister Fibromyalgia Sister Kidney Disease Sister Pneumonia Brother other (Covid 19 sequelae) Brother No Known Problems Brother No Known Problems Brother Diabetes Maternal Grandmother Stroke Paternal Grandfather Tuberculosis Paternal Grandfather Social History Tobacco Use Smoking status: Never Smokeless tobacco: Never Substance Use Topics Alcohol use: No Drug use: No ALLERGIES Allergen Reactions [place] [Hydrocodone-* Other: See Comments Weird dreams. MEDICATIONS: lisinopril (ZESTRIL) 10 mg tablet Take 1 tablet by mouth once daily. hydroCHLOROthiazide 25 mg tablet Take 1 tablet by mouth once daily. CPAP CPAP Supplies, All Necessary equipment including tubing and full mask ICD G47.33 HAIR, SKIN AND NAILS, BIOTIN, ORAL Take 2 tablets by mouth once daily. atorvastatin (LIPITOR) 10 mg tablet Take 1 tablet by mouth daily at bedtime. For cholesterol. diphenhydrAMINE-Acetam inophen (TYLENOL PM EXTRA STRENGTH) 25-500 mg tab At bedtime for sleep ascorbic acid (VITAMIN C ORAL) Take 1 tablet by mouth once daily. elderberry fruit (ELDERBERRY ORAL) Take 2 Doses by mouth once daily. CPAP 30 day download for And please send chin strap Auto PAP @ 5-20 cm of water with humidification. Mask (per patient preference) optional chin strap (if indicated) , filters, tubing, humidifier and lifetime supplies. TURMERIC ORAL Take by mouth once daily. With curcumin Black Cohosh 40 mg tab Take 1 tablet by mouth. Take 1 tablet every other day ferrous sulfate 325 mg (65 mg iron) tablet Take 650 mg by mouth daily with breakfast. cholecalciferol (VITAMIN D3) 50 mcg (2,000 unit) tablet Take by mouth. Fiber Cap Take 3 capsules by mouth once daily. multivitamins(DAILY MULTIVITAMIN TAB) Take one(1) tablet daily. meloxicam (MOBIC) 15 mg tablet Take 1 tablet by mouth once daily. Allergies, medica (more content not included)... [facility] CNOVon 01-27-2024 CNOV Office Visit (INTMWS ) AZALEA MOTT ([id number]) 1950 F Date Time Provider Department 01/27/24 11:00 AM MARY GLOVER INTMWS During your visit today, we recorded the following information about you: Pulse Respiration Blood pressure Weight 60/minute 14/minute 124/78 98.8 kg Height 1.702 m Mary Glover, POULTRY HATCHERY MANAGER.PROTEIN PURIFICATION SCIENTIST 01/27/2024 1:16 PM Signed Azalea Alexis Pantera is a 74 year old female here for a Medicare wellness visit. Medicare Health Risk Assessment General Health Very good Exercise: Minutes/Day 0 min Exercise: Days/Week 0 days Alcohol: Daily Use Never Alcohol: Drinks/Day Patient does not drink Alcohol: 6 or more drinks Never Feel off balance No Concerns: Teeth/Dentures No Concerns: Sexual function No Troubled by feelings None of the above Frequency: Eating healthy diet More than half the days ADLs requiring help None of the above Safety precautions in home/vehicle Yes Smoke, vape, chews tobacco No Difficulty hearing No Difficulty seeing No Current Providers Specialists: I have reviewed specialist-related care of the patient in the medical record. Current care team: Patient Care Team: Navdeep Ulloa MD as PCP - General (Internal Medicine) Outside specialists seen: Dr. Mcdonald-ophthalmology Medical/Family history review Reviewed and updated problem list, medical/surgical/famil y/social history, medications, and allergies. Opioid use review Opioid Medications (last 90 days) No data to display Anxiety/Depression screening PHQ-2 Score: 0 ELVIRA-2 Score: 0 Recommendation: no further intervention at this time Cognitive screening Mini Cog Score: 5 Cognitive screening reviewed and No further action needed (score 3-5). Functional Observation Was the patient's Timed Up AND Go test unsteady or >= 12 seconds? No Advance Care Planning Patient was not able to provide a surrogate decision maker or written advance directives Measurements BP 124/78 Pulse 60 Resp 14 Ht 170.2 cm (5' 7) Wt 98.8 kg (217 lb 13 oz) BMI 34.11 kg/m? Vision Screening: Follows with optometry/ophthalmolog y Assessment/Plan Medicare annual wellness visit, subsequent (Z00.00) - Counseled on healthy diet and regular exercise - Fall avoidance information provided - Personalized prevention plan provided - Discussed need for and benefit of weight loss. BMI 34.11 kg/(m2) Additional Concerns The following concerns were also discussed with the patient: She reports right hip pain for months, gradually worsening. Only occurring when she first stands up from sitting, once she starts walking the pain resolves Injury: denies a recent or remote history of hip injury or trauma. Location: groin and described as sharp. Associated symptoms: no back pain, no radiation of hip pain, and no numbness or tingling noted of the lower extremity. Grating, clicking, feeling like leg is giving out: feels like it may give out when she first stands up unless she moves very slowly Aggravated by nothing Treatment: nothing PMH: Non-contributory SIOBHAN: Is compliant with CPAP. No changes in settings. Denies issues with mask. Denies snoring, un-refreshed sleep, insomnia, excessive daytime drowsiness. HTN-Medication changes:No Taking all medications as prescribed: Yes Side effects: No Home BP's: No Denies: headache, chest pain, palpitations, dyspnea, and peripheral edema. Last 3 Encounter BP Readings: Date: BP: 01/27/2024 124/78 09/02/2023 102/70 08/25/2023 118/68 BP 124/78 Pulse 60 Resp 14 Ht 170.2 cm (5' 7) Wt 98.8 kg (217 lb 13 oz) BMI 34.11 kg/m? Physical Exam Vitals reviewed. Constitutional: Appearance: Normal appearance. Cardiovascular: Rate and Rhythm: Regular rhythm. Bradycardia present. Heart sounds: Normal heart sounds. No murmur heard. Pulmonary: Effort: Pulmonary effort is normal. Breath sounds: Normal breath sounds. No wheezing, rhonchi or rales. Musculoskeletal: Right hip: Tenderness (anterior) present. No deformity or crepitus. Decreased range of motion (painful with external and internal rotation). Normal strength. Left hip: No deformity, tenderness or crepitus. Decreased range of motion (painless). Normal strength. Skin: General: Skin is warm and dry. Neurological: Mental Status: She is alert. Psychiatric: Mood and Affect: Mood normal. ASSESSMENT/PLAN: 1. Medicare annual wellness visit, subsequent - ICD9: V70.0, ICD10: Z00.00 (primary diagnosis) See medicare wellness plan 2. Right hip pain - ICD9: 719.45, ICD10: M25.551 Suspect osteoarthritis. Discussed symptom management, given patient education handout with this information from [email or web address].org - XR HIP GENERAL 3V PELV/AP/LAT RIGHT 3. Hypertension, essential - ICD9: 401.9, ICD10: I10 - Controlled - Continue current medications - Recommend home blood pressure monitoring, to b (more content not included)... [facility] XR HIP 3V PELV+ AP/LAT RTon 01-27-2024 XR HIP 3V PELV+ AP/LAT RT * * *Final Report* * * DATE OF EXAM: Jan 27 2024 11:49AM [id number] - XR HIP 3V PELV+ AP/LAT RT / PROCEDURE REASON: Right hip pain * * * * Physician Interpretation * * * * EXAMINATION / TECHNIQUE: XR HIP 3V PELV+ AP/LAT RT HISTORY: Chronic worsening right hip pain, no known injury. Right hip pain COMPARISON: 07/09/2015. RESULT: No acute fracture or dislocation. Moderate to severe right and moderate left hip osteoarthritis. Sacroiliac joints are intact. Lower lumbar degenerative changes. IMPRESSION: Moderate to severe right hip osteoarthritis. Study Director: PSCB Transcribe Date/Time: Jan 31 2024 6:01P Dictated by : FREEMAN DALLAS MD This examination was interpreted and the report reviewed and electronically signed by: FREEMAN DALLAS MD on Jan 31 2024 6:02PM EST [id number] Normal [facility] Comprehensive metabolic 2000 panelon 01-18-2024 Albumin [Mass/Vol] 4.3 g/dL Normal 3.9-4.9 [facility] Comment on above: Order Comment: Speci men Type: BLOOD SPECIMENOrdering Facility: [facility] Address: [address] [place] [address] Performed By: #### 2 4323-8, 71288-2 ####[facility] LABCLIA [id number] [place] [address] [place] ALP [Catalytic activity/Vol] 84 U/L Normal 34-123 [facility] Comment on above: Order Comment: Speci men Type: BLOOD SPECIMENOrdering Facility: [facility] Address: [address] [place] [address] Performed By: #### 2 4323-8, 00164-0 ####[facility] LABCLIA [id number] [place] [address] [place] ALT [Catalytic activity/Vol] 20 U/L Normal 7-38 [facility] Comment on above: Order Comment: Speci men Type: BLOOD SPECIMENOrdering Facility: [facility] Address: [address] [place] [address] Performed By: #### 2 4323-8, 09554-5 ####[facility] LABCLIA [id number] [place] [address] [place] Anion gap [Moles/Vol] 8 mmol/L Normal 8-15 [facility] Comment on above: Order Comment: Speci men Type: BLOOD SPECIMENOrdering Facility: [facility] Address: [address] [place] [address] Performed By: #### 2 4323-8, 87840-4 ####[facility] LABCLIA [id number] [place] [address] [place] AST [Catalytic activity/Vol] 20 U/L Normal 13-35 [facility] Comment on above: Order Comment: Speci men Type: BLOOD SPECIMENOrdering Facility: [facility] Address: [address] [place] [address] Performed By: #### 2 4323-8, 38808-8 ####[facility] LABCLIA [id number] [place] [address] [place] Bilirubin [Mass/Vol] 0.5 mg/dL Normal 0.2-1.3 [facility] Comment on above: Order Comment: Speci men Type: BLOOD SPECIMENOrdering Facility: [facility] Address: [address] [place] [address] Performed By: #### 2 4323-8, 57857-4 ####[facility] LABCLIA [id number] [place] [address] [place] Calcium [Mass/Vol] 10.1 mg/dL Normal 8.5-10.2 [facility] Comment on above: Order Comment: Speci men Type: BLOOD SPECIMENOrdering Facility: [facility] Address: [address] [place] [address] Performed By: #### 2 4323-8, 08296-2 ####[facility] LABCLIA [id number] [place] [address] [place] Chloride [Moles/Vol] 102 mmol/L Normal 98-107 [facility] Comment on above: Order Comment: Speci men Type: BLOOD SPECIMENOrdering Facility: [facility] Address: [address] [place] [address] Performed By: #### 2 4323-8, 79035-0 ####[facility] [place] LABIA [id number] [place] [address] [place] CO2 [Moles/Vol] 30 mmol/L Normal 22-30 [facility] Comment on above: Order Comment: Speci men Type: BLOOD SPECIMENOrdering Facility: [facility] Address: [address] [place] [address] Performed By: #### 2 4323-8, 10827-6 ####[facility] [place] LABIA [id number] [place] [address] [place] Creatinine [Mass/Vol] 1.03 mg/dL High 0.58-0.96 [facility] Comment on above: Order Comment: Speci men Type: BLOOD SPECIMENOrdering Facility: [facility] Address: [address] [place] [address] Performed By: #### 2 4323-8, 48079-8 ####[facility] [id number] [place] [address] [place] Creatinine and Glomerular filtration rate.predicted panel (S/P/Bld) 58 mL/min/1.73m??? Low >=60 [facility] Comment on above: Order Comment: Speci men Type: BLOOD SPECIMENOrdering Facility: [facility] Address: [address] [place] [address] Result Comment: Jessica mated Glomerular Filtration Rate (eGFR) is calculated using the 2020 CKD-EPI creatinine equation. This equation utilizes serum creatinine, sex, and age as parameters. The creatinine assay has traceable calibration to isotope dilution-mass spectrometry. Refer to KDIGO guidelines for clinical interpretation. In patients with unstable renal function, e.g. those with acute kidney injury, the eGFR may not accurately reflect actual GFR. Performed By: #### 2 4323-8, 15433-8 ####[facility] [place] [facility] [id number] [place] [address] [place] Glucose [Mass/Vol] 115 mg/dL High 74-99 [facility] Comment on above: Order Comment: Speci men Type: BLOOD SPECIMENOrdering Facility: [facility] Address: [address] [place] [address] Result Comment: The [place] Diabetes Association (ADA) provides guidance for cutoff values for fasting glucose and random glucose. The ADA defines fasting as no caloric intake for at least 8 hours. Fasting plasma glucose results between 100 to 125 mg/dL indicate increased risk for diabetes (prediabetes). Fasting plasma glucose results greater than or equal to 126 mg/dL meet the criteria for diagnosis of diabetes. In the absence of unequivocal hyperglycemia, results should be confirmed by repeat testing. In a patient with classic symptoms of hyperglycemia or hyperglycemic crisis, random plasma glucose results greater than or equal to 200 mg/dL meet the criteria for diagnosis of diabetes. Reference: Standards of Medical Care in Diabetes 2016, [place] Diabetes Association. Diabetes Care. 2016.39(Suppl 1). Performed By: #### 2 4323-8, 47364-0 ####[facility] LABCLIA [id number] [place] [address] [place] Potassium [Moles/Vol] 4.0 mmol/L Normal 3.7-5.1 [facility] Comment on above: Order Comment: David del real Type: BLOOD SPECIMENOrdering Facility: [facility] Address: [address] [place] [address] Performed By: #### 2 4323-8, 01633-2 ####[facility] [place] LABCLIA [id number] [place] [address] [place] Protein [Mass/Vol] 7.2 g/dL Normal 6.3-8.0 [facility] Comment on above: Order Comment: David del real Type: BLOOD SPECIMENOrdering Facility: [facility] Address: [address] [place] [address] Performed By: #### 2 4323-8, 04308-4 ####[facility] LABCLIA [id number] [place] [address] [place] Sodium [Moles/Vol] 140 mmol/L Normal 136-144 [facility] Comment on above: Order Comment: Speci men Type: BLOOD SPECIMENOrdering Facility: [facility] Address: [address] [place] [address] Performed By: #### 2 4323-8, 41847-3 ####[facility] [place] LABCLIA [id number] [place] [address] [place] Urea nitrogen [Mass/Vol] 22 mg/dL High 7-21 [facility] Comment on above: Order Comment: Speci men Type: BLOOD SPECIMENOrdering Facility: [facility] Address: [address] [place] [address] Performed By: #### 2 4323-8, 74492-1 ####[facility] [place] LABCLIA [id number] [place] [address] [place] Lipid 1996 panelon 4 Cholesterol [Mass/Vol] 122 mg/dL Normal <200 [facility] Comment on above: Order Comment: Speci men Type: BLOOD SPECIMENOrdering Facility: [facility] Address: [address] [place] [address] Result Comment: <200 mg/dL, Desirable 200-239 mg/dL, Borderline high >239 mg/dL, High Performed By: #### 2 4323-8, 27036-9 ####[facility] LABCLIA [id number] [place] [address] [place] Cholesterol in HDL [Mass/Vol] 45 mg/dL Normal >39 [facility] Comment on above: Order Comment: Speci men Type: BLOOD SPECIMENOrdering Facility: [facility] Address: [address] [place] [address] Result Comment: 40-5 9 mg/dL, Acceptable >59 mg/dL, High: Negative risk factor for coronary heart disease <40 mg/dL, Low: Positive risk factor for coronary heart disease Performed By: #### 2 4323-8, 69994-5 ####[facility] [place] LABCLIA [id number] [address] [place] Cholesterol in LDL [Mass/Vol] 56 mg/dL Normal <100 [facility] Comment on above: Order Comment: Speci men Type: BLOOD SPECIMENOrdering Facility: [facility] Address: [address] [place] [address] Result Comment: <100 mg/dL, Optimal 100-129 mg/dL, Near optimal/above optimal 130-159 mg/dL, Borderline high 160-189 mg/dL, High >189 mg/dL, Very high Secondary prevention optimal LDL Cholesterol levels are recommended to be < 70 mg/dL Performed By: #### 2 4323-8, 08888-2 ####[facility] [place] LABCLIA [id number] [address] Cholesterol in LDL/Cholesterol in HDL [Mass ratio] 1.24 {ratio} Normal <2.54 [facility] Comment on above: Order Comment: Speci men Type: BLOOD SPECIMENOrdering Facility: [facility] Address: [address] [place] [address] Result Comment: Refdenis lara: 1. National Cholesterol Education Program ATP III Guideline At-A-Glance Quick Desk Reference: National Heart, Lung, and Blood [place]. National Institutes of Health. 2001: NIH Publication No. 01-3305. 2. An International Atherosclerosis Society position paper: global recommendations for the management of dyslipidemia: executive summary, Atherosclerosis. 2014: 232(2):410-413. Performed By: #### 2 4323-8, 63324-8 ####[facility] [place] LABCLIA [id number] [address] [place] Cholesterol in VLDL [Mass/Vol] 21 mg/dL Normal <30 [facility] Comment on above: Order Comment: Dallasi men Type: BLOOD SPECIMENOrdering Facility: [facility] Address: [address] [place] [address] Performed By: #### 2 4323-8, 14238-0 ####[facility] [place] LABCLIA [id number] [place] [address] [place] Cholesterol non HDL [Mass/Vol] 77 mg/dL Normal <130 [facility] Comment on above: Order Comment: Speci men Type: BLOOD SPECIMENOrdering Facility: [facility] Address: [address] [place] [address] Result Comment: <130 mg/dL, Optimal 130-159 mg/dL, Near optimal/above optimal 160-189 mg/dL, Borderline high 190-219 mg/dL, High >219 mg/dL, Very high Secondary prevention optimal non HDL Cholesterol levels are recommended to be <100 mg/dL Performed By: #### 2 4323-8, 72999-1 ####[facility] LABCLIA [id number] [place] [address] [place] Cholesterol.total/Choles terol in HDL [Mass ratio] 2.71 {ratio} Normal <5.10 [facility] Comment on above: Order Comment: Speci men Type: BLOOD SPECIMENOrdering Facility: [facility] Address: [address] [place] [address] Performed By: #### 2 4323-8, 05491-1 ####[facility] [place] LABCLIA [id number] [address] [place] FASTING TIME 12 hrs Normal [facility] Comment on above: Order Comment: Speci men Type: BLOOD SPECIMENOrdering Facility: [facility] Address: [address] [place] [address] Performed By: #### 2 4323-8, 87951-7 ####[facility] [place] LABCLIA [id number] [place] [address] [place] Triglyceride [Mass/Vol] 107 mg/dL Normal <150 [facility] Comment on above: Order Comment: Speci men Type: BLOOD SPECIMENOrdering Facility: [facility] Address: [address] [place] [address] Result Comment: <150 mg/dL, Normal 150-199 mg/dL, Borderline high 200-499 mg/dL, High >499 mg/dL, Very high Performed By: #### 2 4323-8, 80061-1 ####[facility] [place] LABCLIA [id number] [id number] [id number] [place] CNOVon 01-12-2024 CNOV Office Visit (DERSIN ) AZALEA MOTT ([id number]) 1950 F Date Time Provider Department 01/12/24 9:15 AM BETHANY HODGES During your visit today, we recorded the following information about you: Bethany Hodges MD 01/12/2024 2:59 PM Signed NEW PATIENT / EST PATIENT Last visit: New Pt Chief Complaint: Irritated growth on back History of Present Ilness: Azalea Alexis Pantera is a 73 year old female presents today for a evaluation and possible bx if needed Location: mid back Duration: x 2 weeks Symptoms: irritated, itchy Inciting factors: bra strap rubs over the area Current treatment: none Previous treatment: none No other concerns today /planning or : n/a Pertinent Past Medical History: -Personal history of skin cancer: No -Personal history of skin disease: No -History of organ transplant/immunosuppr essed: No -History of atypical moles: No -Pacemaker or defibrillator: No Specialty Problems None Pertinent Family medical history: History of melanoma: No Review of Systems: Constitutional: Denies fever, chills, night sweats, unintentional weight loss. Skin per HPI. No other new/concerning skin growth. Physical Exam: General: well appearing, of stated age, in no acute distress Neurology: alert and oriented times three Psychiatry: normal affect and speech Schroeder skin type: II A limited skin exam was done of the back. Skin exam normal with the exception of: - A 3 mm pink papule with excoriation on the mid back, biopsy - Numerous scattered skin-colored and brown, waxy, stuck-on papules and plaques Assessment and Plan: 1. Neoplasm of uncertain behavior of skin, Mid back R/O NMSC vs ISK- Recommend Shave bx Pt agreeable Shave biopsy of lesion to establish and confirm diagnosis: Photo taken: Yes Risks, benefits, alternatives and personnel required for shave biopsy reviewed with patient. Patient and provider agree as to site(s) to be biopsied. Patient verbalizes understanding and wishes to proceed. Site(s) prepped with alcohol and anesthetized with 1% lidocaine with epinephrine. Shave biopsy of lesion(s) performed to the level of the dermis/epidermis The following was sent for histologic evaluation: LESION #1 R/O: NMSC LOC OF LESION: Mid back SIZE: 0.3CM EBL: none 50% ALCL and bandaging applied. Written and verbal wound care instructions provided to patient, understanding verbalized. OK to release to [facility] 2. Seborrheic Keratoses Reassurance on benign nature of lesions and recommend routine self-examinations. Recommend observation and encouraged to notify office of changes. Sunscreen (SPF 30 or higher). Sun protective clothing can be used in lieu of sunscreen but must be worn the entire time you are exposed to the sun's rays The ABCDEs of melanoma were reviewed with the patient and the importance of routine self-examination of moles was emphasized. Should any areas change in size, shape or color, bleed or become tender, the patient will contact the office for evaluation sooner than their interval appointment. Patient verbalizes understanding and agrees with treatment plan. Follow up: as needed or sooner if something concerning arises. The documentation for this note was completed by Dilcia Rojas RN acting as scribe for Bethany Hodges MD. January 12, 2024 8:59 AM. JACOB Sheehan MD, MS PGY2 Dermatology Resident I have seen and examined the patient. I have discussed the case and the management of this patient's care with the Resident. I also have reviewed and agree with the assessment and plan as stated above and agree with all of its relevant components. I was present for and supervised the encounter/procedures as documented above by the Resident. I was physically present during the critical portion(s) of this encounter/procedure. I agree with the clinical/operative note independently gathered by the clinical manager product support and Resident and the remaining scribed note accurately describes my personal service to the patient. MD Crystal Young Lesia C RN 01/12/2024 9:29 AM Signed CARE OF BIOPSY SITE 1. Wash your hands with soap and water. 2. Cleanse the biopsy site with antibacterial soap. 3. Thoroughly dry the area and apply a small amount of Vaseline or Aquaphor to keep area greasy at all times (this prevents a scab from forming). 4. PLEASE DO NOT use polysporin, Bacitracin, triple antibiotic or similar ointments. 5. Place a small dressing or band-aid over the wound until the wound is healed. (Studies show that wounds heal better when covered with ointment and a dressing). If you have any questions or concerns, please contact the office at [phone] [phone] or [phone]. For emergencies after 4:30 please call [phone] and ask for the surgical dermatology fellow on (more content not included)... Normal [facility] SURGICAL PATHOLOGYon CASE REPORT Normal [facility] Comment on above: Order Comment: Speci men Type: TISSUE SPECIMENOrdering Facility: [facility] Address: [address] [place] [address] Result Comment: Surg [facility] Pathology Report Case: [id number] Authorizing Provider: Bethany Hodges MD Collected: 01/12/2024 09:24 AM Ordering Location: Dermatology Received: 01/13/2024 11:40 AM Pathologist: Edwardo Costa MD, PhD Specimen: Skin, Shave Biopsy, mid back Performed By: #### S ####[facility] LABCLIA [id number] [place] [address] [place] CLINICAL HISTORY r/o NMSC vs ISK Normal [facility] Comment on above: Order Comment: Speci men Type: TISSUE SPECIMENOrdering Facility: [facility] Address: [address] [place] [address] Performed By: #### S ####[facility] [place] LABCLIA [id number] [place] [address] [place] FINAL DIAGNOSIS Normal [facility] Comment on above: Order Comment: Speci men Type: TISSUE SPECIMENOrdering Facility: [facility] Address: [address] [place] [address] Result Comment: Aminta nice, mid back, shave biopsy: -Neurofibroma. AF/EK 01/14/24 Performed By: #### S ####[facility] [place] LABCLIA [id number] [place] [address] [place] FINAL PERFORMING LAB Normal [facility] Comment on above: Order Comment: Speci men Type: TISSUE SPECIMENOrdering Facility: [facility] Address: [address] [place] [address] Result Comment: Diag nostic interpretation performed at [facility], [address] [place] [address] CLIA# [id number] Heavy Truck Mechanic: Ron Benson M.D. Performed By: #### S ####[facility] [place] LABCLIA [id number] [place] [address] [place] GROSS DESCRIPTION Normal [facility] Comment on above: Order Comment: Speci men Type: TISSUE SPECIMENOrdering Facility: [facility] Address: [address] [place] [address] Result Comment: Mayur. Morgan kin, Shave Biopsy Received in formalin is a 0.7 x 0.6 x 0.2 cm shave of skin. On the skin surface there is a 0.3 cm balderas-white, slightly elevated area. The specimen is bisected. Totally submitted in one cassette. DB January 13, 2024 1:31 PM Gross examination performed at [facility], [address] [place] [address] Performed By: #### S ####[facility] LABCLIA [id number] [address] [place] CNOVon 09-02-2023 CNOV Office Visit (INTMWS ) AZALEA MOTT ([id number]) 1950 F Date Time Provider Department 09/02/23 10:00 AM NAVDEEP ULLOA INTMWS During your visit today, we recorded the following information about you: Temperature Pulse Blood pressure Weight 98.3 degrees 80/minute 102/70 96.2 kg Navdeep Ulloa MD 09/03/2023 1:07 PM Addendum This note was created using [employer]. Subjective Azalea Mott is a 73 year old female. Her hypertension was stable, and edema was better. Review of Systems Constitutional: Negative. Respiratory: Negative. Cardiovascular: Negative. Neurological: Negative. ACTIVE PROBLEM LIST Hearing Loss in Left Ear Hyperlipidemia Ldl Goal <100 Hypertension, Essential Siobhan On Cpap Obesity, Class I, Bmi 30-34.9 Chronic Kidney Insufficiency, Stage 3 (Moderate) (Hcc) Impaired Fasting Glucose Current Outpatient Medications Medication Sig HAIR, SKIN AND NAILS, BIOTIN, ORAL Take 2 tablets by mouth once daily. lisinopril (ZESTRIL) 20 mg tablet Take 0.5 tablets by mouth once daily. hydroCHLOROthiazide 12.5 mg capsule Take 2 capsules by mouth once daily. albuterol HFA (PROVENTIL HFA, VENTOLIN HFA) 90 mcg/actuation inhaler Inhale 2 Puffs as instructed every 6 hours as needed for wheezing/shortness of breath. atorvastatin (LIPITOR) 10 mg tablet Take 1 tablet by mouth daily at bedtime. For cholesterol. diphenhydrAMINE-Acetam inophen (TYLENOL PM EXTRA STRENGTH) 25-500 mg tab At bedtime for sleep CPAP CPAP Supplies, All Necessary equipment including tubing and full mask ICD G47.33 ascorbic acid (VITAMIN C ORAL) Take 1 tablet by mouth once daily. elderberry fruit (ELDERBERRY ORAL) Take 2 Doses by mouth once daily. CPAP 30 day download for And please send chin strap Auto PAP @ 5-20 cm of water with humidification. Mask (per patient preference) optional chin strap (if indicated) , filters, tubing, humidifier and lifetime supplies. TURMERIC ORAL Take by mouth once daily. With curcumin Black Cohosh 40 mg tab Take 1 tablet by mouth. Take 1 tablet every other day ferrous sulfate 325 mg (65 mg iron) tablet Take 650 mg by mouth daily with breakfast. cholecalciferol (VITAMIN D3) 50 mcg (2,000 unit) tablet Take by mouth. Fiber Cap Take 3 capsules by mouth once daily. multivitamins(DAILY MULTIVITAMIN TAB) Take one(1) tablet daily. No current facility-administered medications for this visit. Objective BP 102/70 (BP Site: Left Arm, BP Position: Sitting, BP Cuff Size: Large Adult) Pulse 80 Temp 36.8 ?C (98.3 ?F) (Temporal) Wt 96.2 kg (212 lb) BMI 32.71 kg/m? Physical Exam Constitutional: Appearance: Normal appearance. Musculoskeletal: Right lower leg: No edema. Left lower leg: No edema. Assessment and Plan 1. Hypertension, essential - ICD9: 401.9, ICD10: I10 (primary diagnosis) - Controlled - Continue current medications - LISINOPRIL 10 MG TABLET - HYDROCHLOROTHIAZIDE 25 MG TABLET 2. Venous insufficiency - ICD9: 459.81, ICD10: I87.2 - Controlled. - HYDROCHLOROTHIAZIDE 25 MG TABLET 3. Chronic kidney insufficiency, stage 3 (moderate) (HCC) - ICD9: 585.3, ICD10: N18.30 - eGFR: 57 Stable - Counseled on avoiding NSAIDs, adequate hydration 4. Impaired fasting glucose - ICD9: 790.21, ICD10: R73.01 - Stable. Low carb diet. 5. Hyperlipidemia LDL goal <100 - ICD9: 272.4, ICD10: E78.5 - Controlled - Continue current medications - COMPREHENSIVE METABOLIC PANEL - LIPID PANEL BASIC Navdeep Ulloa MD Addendum: 6. SIOBHAN on CPAP - ICD9: 327.23, ICD10: G47.33 I called and spoke to Azalea regarding obstructive sleep apnea. She had been forgetting to use the CPAP at times, and noted she felt better and sleep was better using the CPAP. She will use the CPAP regularly as she is benefiting from the treatment and must continue. Navdeep Ulloa MD Allergies As of Date: 09/02/2023 Noted Allergy Reaction NORCO (HYDROCODONE-ACETAMINO PHEN) 10/24/2020 14 - Other: See Comments Comments: Weisade dreams. Date Reviewed: 09/02/2023 Reviewed by: Neeta Miles LPN - Fully Assessed Reason for Visit: 5 month follow-up [Other] Primary Visit Diagnosis:Hypertension , essential [I10] Other Visit Diagnoses:Venous insufficiency [I87.2] Chronic kidney insufficiency, stage 3 (moderate) (HCC) [N18.30] Impaired fasting glucose [R73.01] Hyperlipidemia LDL goal <100 [E78.5] SIOBHAN on CPAP [G47.33] Order(s):lisinopril (ZESTRIL) 10 mg tabletTake 1 tablet by mouth once daily.Disp: 90 tabletRfl: 3 hydroCHLOROthiazide 25 mg tabletTake 1 tablet by mouth once daily.Disp: 90 tabletRfl: 3 COMPREHENSIVE METABOLIC PANEL [SQCMP] Order #: [id number] FUTURE LIPID PANEL BASIC [SQLIPB] Order #: [id number] FUTURE Prescriptions as of 09/03/2023 - lisinopril (ZESTRIL) 10 mg tablet Take 1 tablet by mouth once daily. - hydroCHLOROthiazide 25 mg tablet Take 1 tablet by m (more content not included)... Normal [facility] 09-02-2023 [facility] Telephone (INTMWS) AZALEA MOTT ([id number]) 1950 F Date Time Provider Department 09/02/23 NAVDEEP ULLOA During your visit today, we recorded the following information about you: Yen Browne LPN 09/02/2023 11:53 AM Signed Patient calling, needs order for CPAP supplies [facility]. Please advise. Neeta Miles LPN 09/02/2023 3:33 PM Signed Order faxed to [employer]. Neeta Miles LPN Allergies As of Date: 09/02/2023 Noted Allergy Reaction NORCO (HYDROCODONE-ACETAMINO PHEN) 10/24/2020 14 - Other: See Comments Comments: Weird dreams. Date Reviewed: 09/02/2023 Reviewed by: Neeta Miles LPN - Fully Assessed Visit Diagnosis:SIOBHAN (obstructive sleep apnea) [G47.33] Order(s):CPAPCPAP Supplies, All Necessary equipment including tubing and full mask ICD G47.33Disp: 1 EachRfl: 99 Prescriptions as of 09/02/2023 - lisinopril (ZESTRIL) 10 mg tablet Take 1 tablet by mouth once daily. - hydroCHLOROthiazide 25 mg tablet Take 1 tablet by mouth once daily. - CPAP CPAP Supplies, All Necessary equipment including tubing and full mask ICD G47.33 - HAIR, SKIN AND NAILS, BIOTIN, ORAL Take 2 tablets by mouth once daily. - albuterol HFA (PROVENTIL HFA, VENTOLIN HFA) 90 mcg/actuation inhaler Inhale 2 Puffs as instructed every 6 hours as needed for wheezing/shortness of breath. - atorvastatin (LIPITOR) 10 mg tablet Take 1 tablet by mouth daily at bedtime. For cholesterol. - diphenhydrAMINE-Acetam inophen (TYLENOL PM EXTRA STRENGTH) 25-500 mg tab At bedtime for sleep - ascorbic acid (VITAMIN C ORAL) Take 1 tablet by mouth once daily. - elderberry fruit (ELDERBERRY ORAL) Take 2 Doses by mouth once daily. - CPAP 30 day download for And please send chin strap Auto PAP @ 5-20 cm of water with humidification. Mask (per patient preference) optional chin strap (if indicated) , filters, tubing, humidifier and lifetime supplies. - TURMERIC ORAL Take by mouth once daily. With curcumin - Black Cohosh 40 mg tab Take 1 tablet by mouth. Take 1 tablet every other day - ferrous sulfate 325 mg (65 mg iron) tablet Take 650 mg by mouth daily with breakfast. - cholecalciferol (VITAMIN D3) 50 mcg (2,000 unit) tablet Take by mouth. - Fiber Cap Take 3 capsules by mouth once daily. - multivitamins(DAILY MULTIVITAMIN TAB) Take one(1) tablet daily. Problem List As Of Date 09/02/2023 Noted Resolved Dermatophytosis of foot [B35.3] 02/05/2006 03/07/2015 Hereditary and idiopathic peripheral neuropathy* 10/24/2020 Hearing Loss in Left Ear [H91.92] 03/27/2009 Post-menopausal bleeding [N95.0] 11/21/2011 03/28/2016 Thickened endometrium [R93.89] 12/05/2011 03/28/2016 [place] of foot [L84] 08/17/2013 03/28/2016 Primary osteoarthritis of right hip [M16.11] 08/09/2015 08/09/2015 Arthritis of right hip [M16.11] 08/09/2015 10/24/2020 Hyperlipidemia LDL goal <100 [E78.5] 01/18/2016 Hypertension, essential [I10] 01/02/2020 SIOBHAN on CPAP [G47.33] 01/27/2020 Obesity, Class I, BMI 30-34.9 [E66.9] 10/25/2020 Chronic kidney insufficiency, stage 3 (moderate*08/25/2023 Impaired fasting glucose [R73.01] 04/06/2023 Venous insufficiency [I87.2] 09/02/2023 Prescriptions ordered this encounter Disp Refills Start End CPAP 1 Ea* 99 09/02/2023 Class: Print RX Sig: CPAP Supplies, All Necessary equipment including tubing and full mask ICD G47.33 Medications Discontinued During This Encounter Prescriptions - CPAP (Discontinued) CPAP Supplies, All Necessary equipment including tubing and full mask ICD G47.33 Encounter Status:Closed by NEETA MILES on 09/02/23 Normal [facility] CBC panel Auto (Bld)on 08-24 Erythrocyte distribution width (RBC) [Ratio] 12.4 % 11.5 - 15.0 % [facility] Hematocrit (Bld) [Volume fraction] 40.4 % 36.0 - 46.0 % [facility] Hemoglobin (Bld) [Mass/Vol] 13.4 g/dL 11.5 - 15.5 g/dL [facility] Interpretation and review of laboratory results Normal [facility] MCH (RBC) [Entitic mass] 29.7 pg 26. 0 - 34.0 pg [facility] MCHC (RBC) [Mass/Vol] 33.2 g/dL 30.5 - 36.0 g/dL [facility] MCV (RBC) [Entitic vol] 89.6 fL 80.0 - 100.0 fL [facility] Nucleated RBC (Bld) [#/Vol] NINF [facility] Platelet mean volume (Bld) [Entitic vol] 11.8 fL 9.0 - 12.7 fL [facility] Platelets (Bld) [#/Vol] 234 10*3/uL [facility] RBC (Bld) [#/Vol] 4.51 10*6/uL 3.90 - 5.2 0 m/uL [facility] WBC (Bld) [#/Vol] 8.40 10*3/uL [facility] Erythrocyte distribution width (RBC) [Ratio] 12.4 % Normal 11.5-15.0 [facility] Comment on above: Order Comment: Speci men Type: BLOOD SPECIMENOrdering Facility: [facility] Address: [address] [place] [address] Performed By: #### 5 8410-2 ####[facility] [place] LABIA [id number] [place] [address] [place] Hematocrit (Bld) [Volume fraction] 40.4 % Normal 36.0-46.0 [facility] Comment on above: Order Comment: Speci men Type: BLOOD SPECIMENOrdering Facility: [facility] Address: [address] [place] [address] Performed By: #### 5 8410-2 ####[facility] [place] LABCLIA [id number] [place] [address] [place] Hemoglobin (Bld) [Mass/Vol] 13.4 g/dL Normal 11.5-15.5 [facility] Comment on above: Order Comment: Speci men Type: BLOOD SPECIMENOrdering Facility: [facility] Address: [address] [place] [address] Performed By: #### 5 8410-2 ####[facility] [place] LABIA [id number] [place] [address] [place] MCH (RBC) [Entitic mass] 29.7 pg Normal 26.0-34.0 [facility] Comment on above: Order Comment: Speci men Type: BLOOD SPECIMENOrdering Facility: [facility] Address: [address] [place] [address] Performed By: #### 5 8410-2 ####[facility] [place] LABCLIA [id number] [place] [address] [place] MCHC (RBC) [Mass/Vol] 33.2 g/dL Normal 30.5-36.0 [facility] Comment on above: Order Comment: Speci men Type: BLOOD SPECIMENOrdering Facility: [facility] Address: [address] [place] [address] Performed By: #### 5 8410-2 ####[facility] [place] LABCLIA [id number] [place] [address] [place] MCV (RBC) [Entitic vol] 89.6 fL Normal 80.0-100.0 [facility] Comment on above: Order Comment: Speci men Type: BLOOD SPECIMENOrdering Facility: [facility] Address: [address] [place] [address] Performed By: #### 5 8410-2 ####[facility] [place] LABIA [id number] [place] [address] [place] Nucleated RBC (Bld) [#/Vol] 10*3/uL Normal <0.01 [facility] Comment on above: Order Comment: Speci men Type: BLOOD SPECIMENOrdering Facility: [facility] Address: [address] [place] [address] Performed By: #### 5 8410-2 ####[facility] [place] LABCLIA [id number] [place] [address] [place] Platelet mean volume (Bld) [Entitic vol] 11.8 fL Normal 9.0-12.7 [facility] Comment on above: Order Comment: Speci men Type: BLOOD SPECIMENOrdering Facility: [facility] Address: [address] [place] [address] Performed By: #### 5 8410-2 ####[facility] [place] LABIA [id number] [place] [address] [place] Platelets (Bld) [#/Vol] 234 10*3/uL Normal 150-400 [facility] Comment on above: Order Comment: Speci men Type: BLOOD SPECIMENOrdering Facility: [facility] Address: [address] [place] [address] Performed By: #### 5 8410-2 ####[facility] [place] LABIA [id number] [place] [address] [place] RBC (Bld) [#/Vol] 4.51 10*6/uL Normal 3.90-5.20 [facility] Comment on above: Order Comment: Speci men Type: BLOOD SPECIMENOrdering Facility: [facility] Address: [address] [place] [address] Performed By: #### 5 8410-2 ####[facility] [place] LABIA [id number] [place] [address] [place] WBC (Bld) [#/Vol] 8.40 10*3/uL Normal 3.70-11.00 [facility] Comment on above: Order Comment: Speci men Type: BLOOD SPECIMENOrdering Facility: [facility] Address: [address] [place] [address] Performed By: #### 5 8410-2 ####[facility] [place] LABIA [id number] [place] [address] [place] CNOVon 08-25-2023 CNOV Office Visit (INTMWS ) AZALEA MOTT ([id number]) 1950 F Date Time Provider Department 08/25/23 9:40 AM NAVDEEP ULLOA INTMWS During your visit today, we recorded the following information about you: Temperature Pulse Respiration Blood pressure 97.5 degrees 72/minute 16/minute 118/68 Weight 96.2 kg Navdeep Ulloa MD 08/25/2023 11:47 AM Signed This note was created using Snapcious. Subjective Azalea Mott is a 73 year old female. She started noticing significant bilateral ankle edema one week ago, worse towards day's end, and resolved on arising in the morning. Dietary sodium may have increased recently due to camping activities. Her hypertension medications were unchanged. Other concern was recent onset of fatigue maybe 2 weeks ago. Review of Systems Constitutional: Positive for fatigue. Negative for activity change, appetite change, diaphoresis and fever. HENT: Negative. Respiratory: Negative for chest tightness, shortness of breath and wheezing. Cardiovascular: Positive for leg swelling. Negative for chest pain and palpitations. Gastrointestinal: Negative for blood in stool, diarrhea, nausea and vomiting. Genitourinary: Negative for hematuria. Neurological: Positive for light-headedness. Negative for dizziness and headaches. ACTIVE PROBLEM LIST Hearing Loss in Left Ear Hyperlipidemia Ldl Goal <100 Hypertension, Essential Siobhan On Cpap Obesity, Class I, Bmi 30-34.9 Kidney Insufficiency Impaired Fasting Glucose Social History Tobacco Use Smoking status: Never Smokeless tobacco: Never Substance Use Topics Alcohol use: No Drug use: No Current Outpatient Medications Medication Sig HAIR, SKIN AND NAILS, BIOTIN, ORAL Take 2 tablets by mouth once daily. albuterol HFA (PROVENTIL HFA, VENTOLIN HFA) 90 mcg/actuation inhaler Inhale 2 Puffs as instructed every 6 hours as needed for wheezing/shortness of breath. lisinopril (ZESTRIL) 20 mg tablet Take 1 tablet by mouth once daily. hydroCHLOROthiazide 12.5 mg capsule Take 1 capsule by mouth once daily. atorvastatin (LIPITOR) 10 mg tablet Take 1 tablet by mouth daily at bedtime. For cholesterol. diphenhydrAMINE-Acetam inophen (TYLENOL PM EXTRA STRENGTH) 25-500 mg tab At bedtime for sleep CPAP CPAP Supplies, All Necessary equipment including tubing and full mask ICD G47.33 ascorbic acid (VITAMIN C ORAL) Take 1 tablet by mouth once daily. elderberry fruit (ELDERBERRY ORAL) Take 2 Doses by mouth once daily. CPAP 30 day download for And please send chin strap Auto PAP @ 5-20 cm of water with humidification. Mask (per patient preference) optional chin strap (if indicated) , filters, tubing, humidifier and lifetime supplies. TURMERIC ORAL Take by mouth once daily. With curcumin Black Cohosh 40 mg tab Take 1 tablet by mouth. Take 1 tablet every other day ferrous sulfate 325 mg (65 mg iron) tablet Take 650 mg by mouth daily with breakfast. cholecalciferol (VITAMIN D3) 50 mcg (2,000 unit) tablet Take by mouth. Fiber Cap Take 3 capsules by mouth once daily. multivitamins(DAILY MULTIVITAMIN TAB) Take one(1) tablet daily. benzonatate (TESSALON PERLES) 100 mg capsule Take 1 capsule by mouth three times a day as needed for cough. (Patient not taking: Reported on 08/12/2023) No current facility-administered medications for this visit. Objective BP 118/68 (BP Site: Right Arm, BP Position: Sitting, BP Cuff Size: Large Adult) Pulse 72 Temp 36.4 ?C (97.5 ?F) (Temporal) Resp 16 Wt 96.2 kg (212 lb) BMI 32.71 kg/m? Physical Exam Constitutional: General: She is not in acute distress. Appearance: She is not ill-appearing or diaphoretic. HENT: Head: Normocephalic. Mouth/Throat: Mouth: Mucous membranes are moist. Eyes: Conjunctiva/sclera: Conjunctivae normal. Cardiovascular: Rate and Rhythm: Normal rate and regular rhythm. Heart sounds: No murmur heard. No gallop. Pulmonary: Effort: No respiratory distress. Breath sounds: Normal breath sounds. No wheezing or rales. Abdominal: General: There is no distension. Tenderness: There is no abdominal tenderness. Musculoskeletal: General: No tenderness or signs of injury. Right lower le+ Pitting Edema present. Left lower le+ Pitting Edema present. Neurological: Mental Status: She is alert. Latest Ref Rng 08/24/2023 Glucose 74 - 99 mg/dL 120 (H) BUN 7 - 21 mg/dL 18 Creatinine 0.58 - 0.96 mg/dL 1.05 (H) Sodium 136 - 144 mmol/L 140 Potassium 3.7 - 5.1 mmol/L 4.3 Chloride 98 - 107 mmol/L 102 CO2 22 - 30 mmol/L 28 Anion Gap 8 - 15 mmol/L 10 Calcium 8.5 - 10.2 mg/dL 10.0 eGFR >=60 mL/min/1.73m? 57 (L) Hemoglobin A1C 4.3 - 5.6 % 5.8 (H) Estimated Average Glucose mg/dL 120 Legend: (H) High (L) Low Assessment and Plan 1. Venous insufficiency - ICD9: 459.81, ICD10: I87.2 (primary diagnosis) - Low sodium diet. - Frequent (more content not included)... Normal [facility] THYROID STIMULATING HORMONEo n 08-25-2023 TSH Qn 1.690 m[IU]/L [facility] TSH Qnon 08-25-2023 Interpretation and review of laboratory results Normal [facility] TSH SerPl-aCncon 08-25-2023 TSH Qn 1.690 m[IU]/L Normal 0.270-4.200 [facility] Comment on above: Order Comment: Speci men Type: BLOOD SPECIMENOrdering Facility: [facility] Address: [address] [place] [address] Performed By: #### 3 016-3 ####[facility] [place] LABCLIA [id number] [place] [address] [place] Basic metabolic 2000 panelon 08-24-2023 Anion gap [Moles/Vol] 10 mmol/L Normal 8-15 [facility] Comment on above: Order Comment: Speci men Type: BLOOD SPECIMENOrdering Facility: [facility] Address: [address] [place] [address] Performed By: #### 2 4321-2 ####[facility] [place] LABCLIA [id number] [place] [address] [place] Calcium [Mass/Vol] 10.0 mg/dL Normal 8.5-10.2 [facility] Comment on above: Order Comment: Speci men Type: BLOOD SPECIMENOrdering Facility: [facility] Address: [address] [place] [address] Performed By: #### 2 4321-2 ####[facility] [place] LABCLIA [id number] [place] [address] [place] Chloride [Moles/Vol] 102 mmol/L Normal 98-107 [facility] Comment on above: Order Comment: Speci men Type: BLOOD SPECIMENOrdering Facility: [facility] Address: [address] [place] [address] Performed By: #### 2 4321-2 ####[facility] [place] LABCLIA [id number] [place] [address] [place] CO2 [Moles/Vol] 28 mmol/L Normal 22-30 [facility] Comment on above: Order Comment: Speci men Type: BLOOD SPECIMENOrdering Facility: [facility] Address: [address] [place] [address] Performed By: #### 2 4321-2 ####[facility] [place] LABCLIA [id number] [place] [address] [place] Creatinine [Mass/Vol] 1.05 mg/dL High 0.58-0.96 [facility] Comment on above: Order Comment: Speci men Type: BLOOD SPECIMENOrdering Facility: [facility] Address: [address] [place] [address] Performed By: #### 2 4321-2 ####[facility] [place] LABCLIA [id number] [place] [address] [place] Creatinine and Glomerular filtration rate.predicted panel (S/P/Bld) 57 mL/min/1.73m??? Low >=60 [facility] Comment on above: Order Comment: Speci men Type: BLOOD SPECIMENOrdering Facility: [facility] Address: [address], [place] [address] Result Comment: Jessica mated Glomerular Filtration Rate (eGFR) is calculated using the 2020 CKD-EPI creatinine equation. This equation utilizes serum creatinine, sex, and age as parameters. The creatinine assay has traceable calibration to isotope dilution-mass spectrometry. Refer to KDIGO guidelines for clinical interpretation. In patients with unstable renal function, e.g. those with acute kidney injury, the eGFR may not accurately reflect actual GFR. Performed By: #### 2 4321-2 ####[facility] [place] LABCLIA [id number] [place] [address] [place] Glucose [Mass/Vol] 120 mg/dL High 74-99 [facility] Comment on above: Order Comment: David del real Type: BLOOD SPECIMENOrdering Facility: [facility] Address: [address] [place] [address] Result Comment: The [place] Diabetes Association (ADA) provides guidance for cutoff values for fasting glucose and random glucose. The ADA defines fasting as no caloric intake for at least 8 hours. Fasting plasma glucose results between 100 to 125 mg/dL indicate increased risk for diabetes (prediabetes). Fasting plasma glucose results greater than or equal to 126 mg/dL meet the criteria for diagnosis of diabetes. In the absence of unequivocal hyperglycemia, results should be confirmed by repeat testing. In a patient with classic symptoms of hyperglycemia or hyperglycemic crisis, random plasma glucose results greater than or equal to 200 mg/dL meet the criteria for diagnosis of diabetes. Reference: Standards of Medical Care in Diabetes 2016, [place] Diabetes Association. Diabetes Care. 2016.39(Suppl 1). Performed By: #### 2 4321-2 ####[facility] LABIA [id number] [place] [address] [place] Potassium [Moles/Vol] 4.3 mmol/L Normal 3.7-5.1 [facility] Comment on above: Order Comment: David delr eal Type: BLOOD SPECIMENOrdering Facility: [facility] Address: [address] [place] [address] Performed By: #### 2 4321-2 ####[facility] [place] LABIA [id number] [place] [address] [place] Sodium [Moles/Vol] 140 mmol/L Normal 136-144 [facility] Comment on above: Order Comment: Dallasi men Type: BLOOD SPECIMENOrdering Facility: [facility] Address: [address] [place] [address] Performed By: #### 2 4321-2 ####[facility] [place] LABCLIA [id number] [place] [address] [place] Urea nitrogen [Mass/Vol] 18 mg/dL Normal 7-21 [facility] Comment on above: Order Comment: Dallasi men Type: BLOOD SPECIMENOrdering Facility: [facility] Address: [address] [place] [address] Performed By: #### 2 4321-2 ####[facility] [place] LABIA [id number] [place] [address] [place] HbA1c (Bld)on 08-24-2023 Average glucose Estimated from glycated hemoglobin (Bld) [Mass/Vol] 120 mg/dL Normal [facility] Comment on above: Order Comment: David men Type: BLOOD SPECIMENOrdering Facility: [facility] Address: [address] [place] [address] Result Comment: eAG: (Estimated average glucose) is a calculated value from HgbA1c and is sales representative uniforms of the average blood glucose level in the last 2-3 month period. Performed By: #### 5 5454-3 ####[facility] LABIA [id number] [place] [address] [place] HbA1c (Bld) [Mass fraction] 5.8 % High 4.3-5.6 [facility] Comment on above: Order Comment: David men Type: BLOOD SPECIMENOrdering Facility: [facility] Address: [address] [place] [address] Result Comment: [place] Diabetes Association guidelines indicate that patients with HgbA1c in the range 5.7-6.4% are at increased risk for development of diabetes, and intervention by lifestyle modification may be beneficial. HgbA1c greater or equal to 6.5% is considered diagnostic of diabetes. Performed By: #### 5 5454-3 ####[facility] LABCLIA [id number] [place] [address] [place] JOEL SCREENINGon 02-19-2022 [facility] XR CHEST 2V FRONTAL/LATon [facility] XR Chest PA and Lateralon IMPRESSION: No acute radiographic abnormality. Study Director: PSCMalcolm Transcribe Date/Time: Aug 14 2021 2:29P Dictated by : BETTIE ZHANG MD This examination was interpreted and the report reviewed and electronically signed by: BETTIE ZHANG MD on Aug 14 2021 2:30PM EST [id number]_NOT_U _DIVISION OF RADIOLOGY * * *Final Report* * * DATE OF EXAM: Aug 14 2021 2:28PM WOX [id number] - XR CHEST 2V FRONTAL/LAT / PROCEDURE REASON: Rhonchi at both lung bases * * * * Physician Interpretation * * * * EXAMINATION: CHEST RADIOGRAPH (2 VIEW FRONTAL & LATERAL) CLINICAL HISTORY: Rhonchi at both lung bases MQ: XC2_6 EXAM DATE/TIME: 08/14/2021 2:28 PM COMPARISON: No relevant prior studies available. RESULT: Lines, tubes, and devices: None. Lungs and pleura: No consolidation. No lung mass. No pleural effusion. No pneumothorax. Cardiomediastinal silhouette: Normal cardiomediastinal silhouette. Bones and soft tissues: Unremarkable. [id number]_U _DIVISION OF RADIOLOGY Provider, [facility] - 08/14/2021 * * *Final Report* * * DATE OF EXAM: Aug 14 2021 2:28PM WOX [id number] - XR CHEST 2V FRONTAL/LAT / PROCEDURE REASON: Rhonchi at both lung bases * * * * Physician Interpretation * * * * EXAMINATION: CHEST RADIOGRAPH (2 VIEW FRONTAL & LATERAL) CLINICAL HISTORY: Rhonchi at both lung bases MQ: XC2_6 EXAM DATE/TIME: 08/14/2021 2:28 PM COMPARISON: No relevant prior studies available. RESULT: Lines, tubes, and devices: None. Lungs and pleura: No consolidation. No lung mass. No pleural effusion. No pneumothorax. Cardiomediastinal silhouette: Normal cardiomediastinal silhouette. Bones and soft tissues: Unremarkable. IMPRESSION IMPRESSION: No acute radiographic abnormality. Study Director: RACHELLE Transcribe Date/Time: Aug 14 2021 2:29P Dictated by : BETTIE ZHANG MD This examination was interpreted and the report reviewed and electronically signed by: BETTIE ZHANG MD on Aug 14 2021 2:30PM EST [facility] Radiology Study observation (narrative) Facundo rodgers [facility] XR Chest PA and LateralOrder ed By: [facility] Provider on 08-14-2021 [facility] PROGRESSon 06-20-2020 PROGRESS HNO ID: [id number] Author: Teresa Arreaga Service: ? Author Type: Nurse Practitioner Type: Progress Notes Filed: 06/21/2020 9:50 AM Note Text: [facility] New Patient Evaluation Visit performed virtually, with the patient's permission. PATIENT NAME: Azalea Mott DATE OF SERVICE: June 20, 2020 CONSULTING PROVIDER: Parth Oropeza III MD [address] [facility] [address] REASON FOR VISIT: SIOBHAN HPI: Azalea Mott is a 70 year old female. Sleep-related history: Dr. Oropeza told me to go get a CPAP machine. For insurance to continue to pay for this they told me I had to come see you SLEEP-WAKE SCHEDULE She is a self-described night person. Bedtime: 11:30 PM. She does not have a hard time falling asleep. Wake time: 6:45 AM, with an alarm. , her After falling asleep: she wakes up 1-3 time(s) per night, because of the need to urinate. On weekends, she stays up until 11:30pm and sleeps in until 9am. Average total sleep time (in a 24 hour period): 6.5-9 hours. SLEEP-RELATED DETAILS Preferred sleep position: side Breathing disturbances and other behaviors during sleep: snoring. Bruxism: No GERD or aspiration: No Waking up with heart pounding or racing: No Anxiety or rumination: No She does not report having an urge to move the legs in the evening (when resting) that is accompanied or caused by uncomfortable and/or unpleasant sensations in the legs. She has not been told that she has leg kicking during sleep. The patient reports having had the following: Eating with awareness. Frequency: nightly will have a cracker Excessive daytime sleepiness / fatigue is a problem. Excessive Daytime sleepiness/fatigue has been a problem for 10 years. There is no history of a viral illness or significant head injury prior to the start of daytime sleepiness. She does report sleep paralysis or sleep-related hallucinations or cataplexy. 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 She does not have difficulty with memory or concentration. She denies falling asleep or dozing off when driving. She does take naps. Frequency: weekends, Duration: 120 mins. Naps are mostly refreshing. She does drink 4 caffeinated beverages per day. She has gained 10 pounds since 05/2019. PATIENT-ENTERED QUESTIONNAIRE SLEEP SCORES PROMIS Global [employer] - (T-Scores - the mean of general population = 50. Five points is a clinically meaningful difference.) 08/09/2015 03/21/2020 Physical T-Score 44.9 47.7 Mental T-Score 45.8 53.3 PAST TREATMENTS: autopap [facility] PRIOR SLEEP STUDIES: A Home Sleep Test (HST) performed on 01/13/2020 revealed an AHI of 6.7; supine index of 8.1; and a minimum oxygen saturation of 78%. OTHER RELEVANT LABS AND STUDIES: PAST MEDICAL HISTORY Diagnosis Date - Diverticulosis of colon (without mention of hemorrhage) Diverticulosis - SIOBHAN (obstructive sleep apnea) 01/27/2020 - Personal history of colonic polyps 10/18/2004 hyperplastic Colon polyps - Unspecified hemorrhoids without mention of complication Hemorrhoids - Unspecified hereditary and idiopathic peripheral neuropathy PAST SURGICAL HISTORY Procedure Laterality Date - COLONOSCOP W/ OR W/O [facility] SPEC 10-18-04 Colonoscopy-repeat in - COLONOSCOP W/ OR W/O [facility] SPEC 02/13/2017 [id number]bum[facility] 10 years - HYSTEROSCOPY [facility] W/WO DANDC 12/2011 endometrial polyp - L'SCOPE DX W/WO BRUSHINGS/WASHINGS Laparoscopy - MASTOIDECTOMY,COMPLETE as child Mastoidectomy, left - REMOVAL ADENOIDS,PRIMARY,<12 Y/O Adenoidectomy - REMOVAL OF TONSILS,<12 Y/O Tonsillectomy ACTIVE PROBLEM LIST Hereditary and Idiopathic Peripheral Neuropathy Hearing Loss in Left Ear Arthritis of Right Hip Hyperlipidemia Ldl Goal <100 Hypertension, Essential Siobhan (Obstructive Sleep Apnea) Allergies As of Date: 06/20/2020 Allergen Noted Reaction NO KNOWN DRUG ALLERGIES 06/03/2005 Fully Assessed 02/07/2020 CURRENT MEDICATIONS: CPAP Initiate Auto PAP @ 5-20 cm of water with humidification. Mask (per patient preference) optional chin strap (if indicated) , filters, tubing, humidifier and lifetime supplies. lisinopril (ZESTRIL, PRINIVIL) 5 mg tablet Take 1 tablet by mouth once daily. TURMERIC ORAL Take by mouth once daily. With curcumin Black Cohosh 40 mg tab Take 2 tablets by mouth once daily. Ferrous Sulfate (IRON, FERROUS SULFATE,) 325 mg (65 mg iron) tablet Take 650 mg by mouth daily with breakfast. Cholecalciferol, Vitamin D3, (VITAMIN D-3) 2,000 unit Tab Take by mouth. CALCIUM CARBONATE/VITAMIN D2 (CALCIUM + VITAMIN D ORAL) Take by mouth twice daily. Fiber Cap Take 3 capsules by mouth once daily. multivitamins(DAILY MULTIVITAMIN TAB) Take one(1) tablet daily. Review of Systems HENT: Negative for congestion. Positive for dry mouth Cardiovascular: Negative for palpitations. Gastrointestinal: Negative for heartburn. Skin: Negative for rash. Neurological: Negative for headaches and memory loss. SOCIAL HISTORY: Social History Tobacco Use - Smoking status: Never Smoker - Smokeless tobacco: Never Used Substance Use Topics - Alcohol use: No - Drug use: No FAMILY HISTORY: FAMILY HISTORY Problem Relation Age of Onset - Hypertension Mother - Asthma Mother - Diabetes Mother - Cancer Father NON HODGKINS LYMPHOMA - Heart Father CHF - Heart Sister CHF - COPD Mother - other (crohns [Other]) Mother - None Brother - None Brother - None Brother - other (diabetes mellitus [Other]) Sister - Hypertension Sister There is a family history of: Sleep apnea. Relative: sister PHYSICAL EXAMINATION: Vital Signs: Deferred due to virtual visit via Zoom. General appearance: NAD Mental status: awake and alert Constitutional: Well groomed Skin: Dry and intact Neuro: Speech fluent IMPRESSION/PLAN: No diagnosis found. Azalea Mott is a 70 year old female with a PMH of HLD, neuropathy, arthritis of hip, obesity, HTN and hearing loss who presents via zoom for new patient evaluation. A Home Sleep Test (HST) performed on 01/13/2020 revealed at least mild SIOBHAN (AHI of 6.7) that was associated with a minimum oxygen saturation of 78%. -Mrs. Mott reports EDS starting approximately 10 years ago. Associated sleep symptoms include snoring, dry mouth, and un refreshing sleep. She reports history of tonsillectomy and adenoidectomy as a child. She reports she mouth breathed since that time due to difficulty breathing through her nose from the adenoidectomy. She estimates TST to be 6.5 hours on average. Family history of SIOBHAN in sister. -Reviewed HST results. Discussed pathophysiology of SIOBHAN. She was started on autopap 5-20cm2O. She denies pressure or mask intolerance. She is compliant and benefiting. She reports snoring cessation with use. I will request a download. - Continue Auto CPAP at [id number]. - 30 day download request. I will MC you the results. - Can try chin strap. - Remember to clean your mask and equipment regularly, as directed. - You should be eligible for new supplies approximately every 3-6 months, depending on your insurance coverage. Contact your Durable Medical Equipment (DME) company for new supplies as needed. - Follow up in 12 months with me or sooner if needed. Teresa Arreaga APRN.KYAW I spent a total of 45 minutes on the date of the service which included preparing to see the patient, completing clinical documentation, counseling and educating the patient/family/caregiv er, ordering medications, tests, or procedures and communicating results to the patient/family/caregiv er. ADDENDUM June 21, 2020 -Per 05/21/2020-06/19/2020 download Azalea Mott uses PAP therapy an average of 5hours and 32 mins on 100% of nights per week. Current setting of 5-40xyS2E is controlling SIOBHAN well (residual AHI 0.7). Mrs. Mott is compliant. Will notify Mrs. Mott of download via . Teresa Arreaga APRN.CNP Normal [facility] Vital Signs Date Time Vital Sign Value Performing Clinician Sidney sandhu 08-11-2024 11:06-0400 Body height 167.[address] New Bear MD Work Phone: [facility] 08-11-2024 11:06-0400 Body mass index (BMI) [Ratio] 36.8 kg/m2 Dr. New Bear MD Work Phone: [facility] 08-11-2024 11:06-0400 Body weight 103.[address] New Bear MD Work Phone: [facility] 08-11-2024 11:06-0400 Diastolic blood pressure 67 mm[Hg] Dr. New Bear MD Work Phone: [facility] 08-11-2024 11:06-0400 Heart rate 57 /min Dr. New Bear MD Work Phone: [facility] 08-11-2024 11:06-0400 Respiratory rate 18 /min Dr. New Bear MD Work Phone: [facility] 08-11-2024 11:06-0400 Systolic blood pressure 119 mm[Hg] Dr. New Bear MD Work Phone: [facility] 08-09-2024 16:18-0400 Diastolic blood pressure 66 mm[Hg] Pradip Vizcaino PT Work Phone: [facility] 08-09-2024 16:18-0400 Heart rate 49 /min Pradip Vizcaino PT Work Phone: [facility] 08-09-2024 16:18-0400 SaO2% (BldA) [Mass fraction] 97 % Pradip Vizcaino PT Work Phone: [facility] 08-09-2024 16:18-0400 Systolic blood pressure 120 mm[Hg] Pradip Vizcaino PT Work Phone: [facility] 08-09-2024 16:00-0400 Body temperature 97.9 [degF] Pradip Vizcaino PT Work Phone: [facility] 08-09-2024 16:00-0400 Respiratory rate 18 /min Pradip Vizcaino PT Work Phone: [facility] 08-04-2024 12:54-0400 Heart rate 80 /min Leslie Gabi NET WEB APPLICATION DEVELOPER Work Phone: [facility] Comment on above: after walking 08-04-2024 12:54-0400 SaO2% (BldA) [Mass fraction] 99 % Leslie Gabi NET WEB APPLICATION DEVELOPER Work Phone: [facility] 08-04-2024 12:15-0400 Body temperature 98.49 [degF] Leslie Gabi NET WEB APPLICATION DEVELOPER Work Phone: [facility] 08-04-2024 12:15-0400 Diastolic blood pressure 68 mm[Hg] Leslie Gabi NET WEB APPLICATION DEVELOPER Work Phone: [facility] 08-04-2024 12:15-0400 Respiratory rate 18 /min Leslie Gabi NET WEB APPLICATION DEVELOPER Work Phone: [facility] 08-04-2024 12:15-0400 Systolic blood pressure 118 mm[Hg] Leslie Gabi NET WEB APPLICATION DEVELOPER Work Phone: [facility] 08-02-2024 14:15-0400 Diastolic blood pressure 68 mm[Hg] Leslie Gabi NET WEB APPLICATION DEVELOPER Work Phone: [facility] 08-02-2024 14:15-0400 Heart rate 66 /min Leslie Gabi NET WEB APPLICATION DEVELOPER Work Phone: [facility] 08-02-2024 14:15-0400 SaO2% (BldA) [Mass fraction] 99 % Leslie Gabi NET WEB APPLICATION DEVELOPER Work Phone: [facility] 08-02-2024 14:15-0400 Systolic blood pressure 110 mm[Hg] Leslie Gabi NET WEB APPLICATION DEVELOPER Work Phone: [facility] 08-02-2024 13:43-0400 Body temperature 98.71 [degF] Leslie Gabi NET WEB APPLICATION DEVELOPER Work Phone: [facility] 08-02-2024 13:43-0400 Respiratory rate 18 /min Leslie Gabi NET WEB APPLICATION DEVELOPER Work Phone: [facility] 07-25-2024 10:10-0400 Body temperature 98.29 [degF] Odette Gerstenslager O T Work Phone: [facility] 07-25-2024 10:10-0400 Diastolic blood pressure 78 mm[Hg] Odette Gerstenslager OT Work Phone: [facility] 07-25-2024 10:10-0400 Heart rate 98 /min Odette Gerstenslager O T Work Phone: [facility] 07-25-2024 10:10-0400 SaO2% (BldA) [Mass fraction] 99 % Odette Gerstenslager OT Work Phone: [facility] 07-25-2024 10:10-0400 Systolic blood pressure 118 mm[Hg] Odette Gerstenslager OT Work Phone: [facility] 07-23-2024 12:37-0400 Body mass index (BMI) [Ratio] 35.56 kg/m2 Sanjeev Knupp PT Work Phone: [facility] 07-23-2024 12:37-0400 Body weight 99.93 kg Sanjeev Knupp PT Work Phone: [facility] 07-23-2024 12:37-0400 Diastolic blood pressure 64 mm[Hg] Sanjeev Knupp PT Work Phone: [facility] 07-23-2024 12:37-0400 Heart rate 90 /min Sanjeev Knupp PT Work Phone: [facility] 07-23-2024 12:37-0400 Respiratory rate 18 /min Sanjeev Knupp PT Work Phone: [facility] 07-23-2024 12:37-0400 SaO2% (BldA) [Mass fraction] 97 % Sanjeev Knupp PT Work Phone: [facility] 07-23-2024 12:37-0400 Systolic blood pressure 122 mm[Hg] Sanjeev Knupp PT Work Phone: [facility] 07-23-2024 12:27-0400 Body temperature 97.39 [degF] Sanjeev Antoniosrinath PT Work Phone: [facility] 07-22-2024 10:00-0400 Body temperature 97.5 [degF] Dr. New Bear MD Work Phone: [facility] 07-22-2024 10:00-0400 Diastolic blood pressure 74 mm[Hg] Dr. New Bear MD Work Phone: [facility] 07-22-2024 10:00-0400 Heart rate 72 /min Dr. New Bear MD Work Phone: [facility] 07-22-2024 10:00-0400 Respiratory rate 17 /min Dr. New Bear MD Work Phone: [facility] 07-22-2024 10:00-0400 SaO2% (BldA) [Mass fraction] 97 % Dr. New Bear MD Work Phone: [facility] 07-22-2024 10:00-0400 Systolic blood pressure 118 mm[Hg] Dr. New Bear MD Work Phone: [facility] 07-20-2024 12:29-0400 Body height 167.[address] New Bear MD Work Phone: [facility] 07-20-2024 12:29-0400 Body weight 101.[address] New Bear MD Work Phone: [facility] 07-19-2024 11:39-0400 Body mass index (BMI) [Ratio] 36.2 kg/m2 Dr. New Bear MD Work Phone: [facility] 06-09-2024 10:48-0400 Body height 170.2 cm Taty Hidalgo MD Work Phone: [facility] 06-09-2024 10:48-0400 Body mass index (BMI) [Ratio] 33.67 kg/m2 Taty Hidalgo MD Work Phone: [facility] 06-09-2024 10:48-0400 Body weight 97.52 kg Taty Hidalgo MD Work Phone: [facility] 06-09-2024 10:48-0400 Diastolic blood pressure 70 mm[Hg] Taty Hidalgo MD Work Phone: [facility] 06-09-2024 10:48-0400 Heart rate 95 /min Taty Hidalgo MD Work Phone: [facility] 06-09-2024 10:48-0400 SaO2% (BldA) [Mass fraction] 96 % Taty Hidalgo MD Work Phone: [facility] 06-09-2024 10:48-0400 Systolic blood pressure 120 mm[Hg] Taty Hidalgo MD Work Phone: [facility] 06-07-2024 13:02-0400 Body height 168.9 cm Pacc 3 Work Phone: [facility] 06-07-2024 13:02-0400 Body mass index (BMI) [Ratio] 34.94 kg/m2 Pacc 3 Work Phone: [facility] 06-07-2024 13:02-0400 Body temperature 97.11 [degF] Pacc 3 Work Phone: [facility] 06-07-2024 13:02-0400 Body weight 99.7 kg Pacc 3 Work Phone: [facility] 06-07-2024 13:02-0400 Diastolic blood pressure 79 mm[Hg] Pacc 3 Work Phone: [facility] 06-07-2024 13:02-0400 Heart rate 99 /min Pacc 3 Work Phone: [facility] 06-07-2024 13:02-0400 Respiratory rate 16 /min Pacc 3 Work Phone: [facility] 06-07-2024 13:02-0400 SaO2% (BldA) [Mass fraction] 96 % Pacc 3 Work Phone: [facility] 06-07-2024 13:02-0400 Systolic blood pressure 132 mm[Hg] [facility] 3 Work Phone: [facility] 03-31-2024 18:05-0500 Body height 170.2 cm Navdeep Ulloa MD Work Phone: [facility] 03-31-2024 18:05-0500 Body mass index (BMI) [Ratio] 34.01 kg/m2 Navdeep Ulloa MD Work Phone: [facility] 03-31-2024 18:05-0500 Body temperature 98.2 [degF] Navdeep Ulloa MD Work Phone: [facility] 03-31-2024 18:05-0500 Body weight 98.5 kg Navdeep Ulloa MD Work Phone: [facility] 03-31-2024 18:05-0500 Diastolic blood pressure 72 mm[Hg] Navdeep Ulloa MD Work Phone: [facility] 03-31-2024 18:05-0500 Heart rate 71 /min Navdeep Ulloa MD Work Phone: [facility] 03-31-2024 18:05-0500 Respiratory rate 14 /min Navdeep Ulloa MD Work Phone: [facility] 03-31-2024 18:05-0500 SaO2% (BldA) [Mass fraction] 98 % Navdeep Ulloa MD Work Phone: [facility] 03-31-2024 18:05-0500 Systolic blood pressure 136 mm[Hg] Navdeep Ulloa MD Work Phone: [facility] 01-27-2024 10:59-0500 Body height 170.2 cm Mary Glover APRN.CNP Work Phone: [facility] 01-27-2024 10:59-0500 Body mass index (BMI) [Ratio] 34.11 kg/m2 Mary Glover APRN.CNP Work Phone: [facility] 01-27-2024 10:59-0500 Body weight 98.8 kg Mary Ludy POULTRY HATCHERY MANAGER.PROTEIN PURIFICATION SCIENTIST Work Phone: [facility] 01-27-2024 10:59-0500 Diastolic blood pressure 78 mm[Hg] Mary Ludy POULTRY HATCHERY MANAGER.PROTEIN PURIFICATION SCIENTIST Work Phone: [facility] 01-27-2024 10:59-0500 Heart rate 60 /min Mary Ludy POULTRY HATCHERY MANAGER.PROTEIN PURIFICATION SCIENTIST Work Phone: [facility] 01-27-2024 10:59-0500 Respiratory rate 14 /min Mary Ludy POULTRY HATCHERY MANAGER.PROTEIN PURIFICATION SCIENTIST Work Phone: [facility] 01-27-2024 10:59-0500 Systolic blood pressure 124 mm[Hg] Mary Ludy POULTRY HATCHERY MANAGER.PROTEIN PURIFICATION SCIENTIST Work Phone: [facility] 09-02-2023 10:26-0400 Body mass index (BMI) [Ratio] 32.71 kg/m2 Navdeep Ulloa MD Work Phone: [facility] 09-02-2023 10:26-0400 Body temperature 98.29 [degF] Navdeep Ulloa MD Work Phone: [facility] 09-02-2023 10:26-0400 Body weight 96.16 kg Navdeep Ulloa MD Work Phone: [facility] 09-02-2023 10:26-0400 Diastolic blood pressure 70 mm[Hg] Navdeep Ulloa MD Work Phone: [facility] 09-02-2023 10:26-0400 Heart rate 80 /min Navdeep Ulloa MD Work Phone: [facility] 09-02-2023 10:26-0400 Systolic blood pressure 102 mm[Hg] Navdeep Ulloa MD Work Phone: [facility] 08-25-2023 09:48-0400 Body mass index (BMI) [Ratio] 32.71 kg/m2 Navdeep Ulloa MD Work Phone: [facility] 08-25-2023 09:48-0400 Body temperature 97.5 [degF] Navdeep Ulloa MD Work Phone: [facility] 08-25-2023 09:48-0400 Body weight 96.16 kg Navdeep Ulloa MD Work Phone: [facility] 08-25-2023 09:48-0400 Diastolic blood pressure 68 mm[Hg] Navdeep Ulloa MD Work Phone: [facility] 08-25-2023 09:48-0400 Heart rate 72 /min Navdeep Ulloa MD Work Phone: [facility] 08-25-2023 09:48-0400 Respiratory rate 16 /min Navdeep Ulloa MD Work Phone: [facility] 08-25-2023 09:48-0400 Systolic blood pressure 118 mm[Hg] Navdeep Ulloa MD Work Phone: [facility] 08-12-2023 08:17-0400 Body mass index (BMI) [Ratio] 32.71 kg/m2 Navdeep Ulloa MD Work Phone: [facility] 08-12-2023 08:17-0400 Body temperature 97.11 [degF] Navdeep Ulloa MD Work Phone: [facility] 08-12-2023 08:17-0400 Body weight 96.16 kg Navdeep Ulloa MD Work Phone: [facility] 08-12-2023 08:17-0400 Diastolic blood pressure 68 mm[Hg] Navdeep Ulloa MD Work Phone: [facility] 08-12-2023 08:17-0400 Heart rate 52 /min Navdeep Ulloa MD Work Phone: [facility] 08-12-2023 08:17-0400 Respiratory rate 12 /min Navdeep Ulloa MD Work Phone: [facility] 08-12-2023 08:17-0400 Systolic blood pressure 120 mm[Hg] Navdeep Ulloa MD Work Phone: [facility] 08-03-2023 09:33-0400 Body mass index (BMI) [Ratio] 32.9 kg/m2 Roxanne Mendoza POULTRY HATCHERY MANAGER.PROTEIN PURIFICATION SCIENTIST Work Phone: [facility] 08-03-2023 09:33-0400 Body temperature 99.1 [degF] Roxanne Mendoza POULTRY HATCHERY MANAGER.PROTEIN PURIFICATION SCIENTIST Work Phone: [facility] 08-03-2023 09:33-0400 Body weight 96.7 kg Roxanne Mendoza POULTRY HATCHERY MANAGER.PROTEIN PURIFICATION SCIENTIST Work Phone: [facility] 08-03-2023 09:33-0400 Diastolic blood pressure 72 mm[Hg] Roxanne Mendoza POULTRY HATCHERY MANAGER.PROTEIN PURIFICATION SCIENTIST Work Phone: [facility] 08-03-2023 09:33-0400 Heart rate 74 /min Roxanne Mendoza POULTRY HATCHERY MANAGER.PROTEIN PURIFICATION SCIENTIST Work Phone: [facility] 08-03-2023 09:33-0400 Respiratory rate 18 /min Roxanne Mendoza POULTRY HATCHERY MANAGER.PROTEIN PURIFICATION SCIENTIST Work Phone: [facility] 08-03-2023 09:33-0400 SaO2% (BldA) [Mass fraction] 96 % Roxanne Mendoza POULTRY HATCHERY MANAGER.PROTEIN PURIFICATION SCIENTIST Work Phone: [facility] 08-03-2023 09:33-0400 Systolic blood pressure 122 mm[Hg] Roxanne Mendoza POULTRY HATCHERY MANAGER.PROTEIN PURIFICATION SCIENTIST Work Phone: [facility] 04-23-2023 17:11-0500 Body temperature 97.81 [degF] Navdeep Ulloa MD Work Phone: [facility] 04-23-2023 17:11-0500 Body weight 96.16 kg Navdeep Ulloa MD Work Phone: [facility] 04-23-2023 17:11-0500 Diastolic blood pressure 72 mm[Hg] Navdeep Ulloa MD Work Phone: [facility] 04-23-2023 17:11-0500 Heart rate 48 /min Navdeep Ulloa MD Work Phone: [facility] 04-23-2023 17:11-0500 Respiratory rate 16 /min Navdeep Ulloa MD Work Phone: [facility] 04-23-2023 17:11-0500 Systolic blood pressure 120 mm[Hg] Navdeep Ulloa MD Work Phone: [facility] 01-26-2023 09:58-0500 Body height 171.5 cm Mary Older POULTRY HATCHERY MANAGER.PROTEIN PURIFICATION SCIENTIST Work Phone: [facility] 01-26-2023 09:58-0500 Body weight 94.8 kg Mary Older POULTRY HATCHERY MANAGER.PROTEIN PURIFICATION SCIENTIST Work Phone: [facility] 01-26-2023 09:58-0500 Diastolic blood pressure 73 mm[Hg] Mary Older POULTRY HATCHERY MANAGER.PROTEIN PURIFICATION SCIENTIST Work Phone: [facility] 01-26-2023 09:58-0500 Heart rate 65 /min Mary Older POULTRY HATCHERY MANAGER.PROTEIN PURIFICATION SCIENTIST Work Phone: [facility] 01-26-2023 09:58-0500 Respiratory rate 16 /min Mary Older POULTRY HATCHERY MANAGER.PROTEIN PURIFICATION SCIENTIST Work Phone: [facility] 01-26-2023 09:58-0500 SaO2% (BldA) [Mass fraction] 100 % Mary Older POULTRY HATCHERY MANAGER.PROTEIN PURIFICATION SCIENTIST Work Phone: [facility] 01-26-2023 09:58-0500 Systolic blood pressure 111 mm[Hg] Mary Older POULTRY HATCHERY MANAGER.PROTEIN PURIFICATION SCIENTIST Work Phone: [facility] 10-02-2022 10:27-0400 Diastolic blood pressure 75 mm[Hg] Navdeep Ulloa MD Work Phone: [facility] 10-02-2022 10:27-0400 Heart rate 62 /min Navdeep Ulloa MD Work Phone: [facility] 10-02-2022 10:27-0400 Systolic blood pressure 130 mm[Hg] Navdeep Ulloa MD Work Phone: [facility] 10-02-2022 10:17-0400 Body weight 97.52 kg Navdeep Ulloa MD Work Phone: [facility] 10-02-2022 10:17-0400 Respiratory rate 16 /min Navdeep Ulloa MD Work Phone: [facility] 01-24-2022 13:21-0500 Heart rate 56 /min Mary Older POULTRY HATCHERY MANAGER.PROTEIN PURIFICATION SCIENTIST Work Phone: [facility] 01-24-2022 12:41-0500 Body height 170.2 cm Mary Older POULTRY HATCHERY MANAGER.PROTEIN PURIFICATION SCIENTIST Work Phone: [facility] 01-24-2022 12:41-0500 Body weight 96.16 kg Mary Older POULTRY HATCHERY MANAGER.PROTEIN PURIFICATION SCIENTIST Work Phone: [facility] 01-24-2022 12:41-0500 Diastolic blood pressure 68 mm[Hg] Mary Older POULTRY HATCHERY MANAGER.PROTEIN PURIFICATION SCIENTIST Work Phone: [facility] 01-24-2022 12:41-0500 Systolic blood pressure 133 mm[Hg] Mary Older POULTRY HATCHERY MANAGER.PROTEIN PURIFICATION SCIENTIST Work Phone: [facility] 08-14-2021 13:58-0400 Body temperature 100 [degF] Freeman Juan POULTRY HATCHERY MANAGER.PROTEIN PURIFICATION SCIENTIST Work Phone: [facility] 08-14-2021 13:58-0400 Body weight 96.25 kg Freeman Juan POULTRY HATCHERY MANAGER.PROTEIN PURIFICATION SCIENTIST Work Phone: [facility] 08-14-2021 13:58-0400 Diastolic blood pressure 76 mm[Hg] Freeman Juan POULTRY HATCHERY MANAGER.PROTEIN PURIFICATION SCIENTIST Work Phone: [facility] 08-14-2021 13:58-0400 Heart rate 80 /min Freeman Juan POULTRY HATCHERY MANAGER.PROTEIN PURIFICATION SCIENTIST Work Phone: [facility] 08-14-2021 13:58-0400 Respiratory rate 21 /min Freeman Juan POULTRY HATCHERY MANAGER.PROTEIN PURIFICATION SCIENTIST Work Phone: [facility] 08-14-2021 13:58-0400 SaO2% (BldA) [Mass fraction] 98 % Freeman Martinez APRN.PROTEIN PURIFICATION SCIENTIST Work Phone: [facility] 08-14-2021 13:58-0400 Systolic blood pressure 160 mm[Hg] Freeman Martinez APRN.PROTEIN PURIFICATION SCIENTIST Work Phone: [facility] 05-24-2021 12:09-0400 Diastolic blood pressure 64 mm[Hg] Navdeep Ulloa MD Work Phone: [facility] 05-24-2021 12:09-0400 Systolic blood pressure 124 mm[Hg] Navdeep Ulloa MD Work Phone: [facility] Encounters Encounter Date Encounter Type Care Provider Facility Start: 08-24-2024 ambulatory Navdeep Ulloa Facili ty:[facility] Start: 08-17-2024 End: 08-17-2024 Patient encounter procedure Jamal Gr PA-C Work Phone: Orthopaedics Comment on above: Status post right hi p replacement (Primary Dx); Leg swelling Start: 08-17-2024 End: 08-17-2024 ambulatory NAVDEEP ULLOA Facility:[facility] Start: 08-17-2024 End: 08-17-[address] Rosalio Mena MD -Laboratory Work Phone: Start: 08-17-2024 End: 08-17-2024 ambulatory Navdeep Ulloa Facility:[facility] Start: 08-11-2024 End: 08-11-[address] Rosalio Mena MD -[facility] Work Phone: Start: 08-11-2024 End: 08-11-[address] New Bear MD Work Phone: [facility] Work Phone: Start: 08-09-2024 End: 08-09-2024 Home visit Pradip Vizcaino PT Work Phone: [facility] Comment on above: PT AGENCY DC W VISIT Start: 08-09-2024 End: 08-09-2024 Telephone encounter Pradip Vizcaino PT Work Phone: [facility] Comment on above: Home Care (Low heart rate ) Start: 08-08-2024 End: 08-08-2024 ambulatory NAVDEEP ULLOA Facility:[facility] Start: 08-04-2024 End: 08-04-2024 Home visit Leslie Davison NET WEB APPLICATION DEVELOPER Work Phone: [facility] Comment on above: NET WEB APPLICATION DEVELOPER ROUTINE Start: 08-02-2024 End: 08-02-2024 Home visit Leslie Davison NET WEB APPLICATION DEVELOPER Work Phone: [facility] Comment on above: NET WEB APPLICATION DEVELOPER ROUTINE Start: 08-02-2024 End: 08-03-2024 Telephone encounter Leslie Davison NET WEB APPLICATION DEVELOPER Work Phone: [facility] Comment on above: Home Care (Edema) Patient Update Start: 07-27-2024 End: 07-27-2024 ambulatory NAVDEEP ULLOA Facility:[facility] Start: 07-25-2024 End: 07-25-2024 Home visit Indira Mendez RN Work Phone: [facility] Comment on above: CARE COORDINATION Start: 07-25-2024 End: 07-25-2024 ambulatory Wanda Costa RN Work Phone: [employer] Start: 07-25-2024 End: 07-25-2024 Home visit Odette Henry OT Work Phone: [facility] Comment on above: OT EVAL Transition Of Care ( [facility] discharge 07-22-24- Initial outreach ) Initial phone contact for Transitional Care Management Start: 07-23-2024 End: 07-23-2024 Home visit Sanjeev Simms PT Work Phone: [facility] Comment on above: PT SOC Start: 07-21-2024 End: 07-21-2024 Telephone encounter Navdeep Ulloa MD Work Phone: [facility] Comment on above: Home Care (MD jaswinder gamble) Home Care (Confirmat ion call) Start: 07-20-2024 End: 07-20-2024 Patient encounter procedure Jamal Gr PA-C Work Phone: Orthopaedics Comment on above: Status post right hi p replacement (Primary Dx) Start: 07-20-2024 End: 07-20-2024 Telephone encounter Jamal Gr PA-C Work Phone: [facility] Comment on above: Home Care Start: 07-20-2024 End: 07-20-2024 ambulatory ELIGIO GIBBONS Facility:[facility] Start: 07-20-2024 End: 07-20-2024 Subsequent hospital visit by physician [facility] Work Phone: Radiology Comment on above: Status post right hi p replacement [Z96.641] Start: 07-14-2024 End: 07-15-2024 Telephone encounter Eligio Gibbons MD Work Phone: Orthopaedics Comment on above: Patient Update Start: 07-14-2024 End: 07-14-2024 ambulatory New Chi Chema Facility:[facility] Start: 07-14-2024 End: 07-14-2024 Non-patient / Non-visit Dr. Rosalio Mena MD -[place] [facility] Work Phone: Start: 07-13-2024 End: 07-13-2024 [facility] [place] Start: 07-13-2024 End: 07-13-2024 Patient encounter procedure Wanda Hernandez MA [facility] [place] Comment on above: Population Health Na vigation Outreach ([place]/Workbench/ACO ) Start: 07-11-2024 End: 07-11-2024 Orders Only Eligio Gibbons MD Work Phone: Orthopaedics Comment on above: Status post right hi p replacement (Primary Dx) Start: 07-08-2024 End: 07-08-2024 ambulatory New Chi Chema Facility:[facility] Start: 07-08-2024 End: 07-08-2024 Non-patient / Non-visit Dr. Olga Galvez MD -[place] [facility] Work Phone: Start: 07-06-2024 End: 07-22-2024 Evaluation and management of inpatient Dr. New Bear MD -Transitional Care Unit Start: 06-30-2024 End: 07-06-2024 Evaluation and management of inpatient ELIGIO GIBBONS Facility:[facility] Start: 06-28-2024 End: 06-28-2024 Telephone encounter Onel Bethea MD Work Phone: Orthopaedics Comment on above: Patient Question Start: 06-27-2024 End: 06-27-2024 Telephone encounter Eligio Gibbons MD Work Phone: Orthopaedics Comment on above: Patient Question (Me dication question) Start: 06-24-2024 End: 08-24-2024 Follow-up encounter Taty Hidalgo MD Work Phone: Cardiology Start: 06-23-[address] [facility] ity:[facility] Start: 06-23-2024 End: 06-23-2024 Subsequent hospital visit by physician [facility] Work Phone: Cardiology Lab Comment on above: Atrial flutter, unsp ecified type (HCC) [I48.92] Start: 06-22-2024 End: 06-22-2024 Telephone encounter Hayley Javier RN Cardiology Lab Comment on above: Reminder Call Start: 06-14-2024 End: 06-14-2024 ambulatory Navdeep lUloa MD Work Phone: Internal Medicine [place] Comment on above: Heart Rate Question Start: 06-14-2024 End: 06-14-2024 Telephone encounter Taty Hidalgo MD Work Phone: Cardiology Start: 06-09-2024 End: 06-09-2024 ambulatory NAVDEEP ULLOA Facility:[facility] Start: 06-09-2024 Encounter for preprocedural cardiovascular examination TATY HIDALGO [facility] Start: 06-09-2024 End: 06-09-2024 Patient encounter procedure Taty Hidalgo MD Work Phone: Cardiology Comment on above: Preop cardiovascular exam (Primary Dx); Atrial flutter, unspecified type (HCC); Paroxysmal A-fib (HCC); Abnormal electrocardiogram (ECG) (EKG) Start: 06-09-2024 End: 06-09-2024 Patient encounter status Taty Hidalgo MD Work Phone: [facility] Start: 06-08-2024 End: 06-08-2024 Telephone encounter Pattie Fernandez [facility] Orthopaedics Comment on above: Care Coordination Patient Update Start: 06-07-2024 End: 06-07-2024 Subsequent hospital visit by physician [facility] Radiology Comment on above: Primary osteoarthrit is of right hip [M16.11] Start: 06-07-2024 End: 06-07-2024 Admission to [place] [id number] Work Phone: Pre Anesthesia Start: 06-07-2024 End: 06-07-[address] [facility] Work Phone: Pre Anesthesia Comment on above: Pre-op evaluation (P rimary Dx); Hypertension, essential; SIOBHAN on CPAP; Hyperlipidemia LDL goal <100; Chronic kidney insufficiency, stage 3 (moderate) (HCC); Obesity, Class I, BMI 30-34.9; Venous insufficiency Start: 06-07-2024 End: 06-07-2024 [facility] Work Phone: [facility] Start: 06-07-2024 End: 06-07-2024 ambulatory ELIGIO GIBBONS Facility:[facility] Start: 06-07-2024 [facility] Start: 06-07-2024 End: 06-07-2024 ambulatory NAVDEEP ULLOA Facility:[facility] Start: 06-02-2024 End: 06-06-2024 Telephone encounter Eligio Gibbons MD Work Phone: [address] Comment on above: Pre-Op Teaching Start: 05-13-2024 End: 05-13-2024 Refill Navdeep Ulloa MD Work Phone: Internal Medicine [place] Comment on above: Refill Request Start: 05-12-2024 End: 05-12-2024 Telephone encounter Luigi JACOBS Work Phone: Orthopaedics Comment on above: 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 Start: 05-11-2024 End: 05-11-2024 Office outpatient new 60 minutes Eligio Gibbons MD Work Phone: Orthopaedics Comment on above: Primary osteoarthrit is of right hip (Primary Dx); Preoperative examination; Impaired fasting glucose Start: 05-11-2024 End: 05-11-2024 Orders Only Eligio Gibbons MD Work Phone: Orthopaedics Comment on above: Primary osteoarthrit is of right hip (Primary Dx) Primary osteoarthrit is of right hip [M16.11] Start: 05-11-2024 End: 05-11-2024 Preprocedural examination done Eligio Gibbons MD Work Phone: [facility] Start: 04-22-2024 End: 04-22-2024 ambulatory NAVDEEP ULLOA Facility:[facility] Start: 04-22-2024 End: 04-22-2024 Patient encounter procedure Bryan Linda DO Work Phone: Family Medicine [place] Comment on above: Arthritis of right h ip (Primary Dx) Start: 04-14-2024 End: 04-14-2024 ambulatory Peggy Alicia [facility] Physical Therapy Comment on above: Primary osteoarthrit is of right hip (Primary Dx) Start: 04-04-2024 End: 04-04-2024 Orders Only Navdeep Ulloa MD Work Phone: Internal Medicine [place] Comment on above: Dysuria (Primary Dx) Results Primary osteoarthrit is of right hip (Primary Dx) Start: 03-31-2024 End: 03-31-2024 ambulatory NAVDEEP ULLOA Facility:[facility] Start: 03-31-2024 End: 03-31-2024 Office outpatient visit 15 minutes Navdeep Ulloa MD Work Phone: Internal Medicine [place] Comment on above: Dysuria (Primary Dx) Start: 03-28-2024 End: 03-28-2024 ambulatory Peggy Phillips PT [facility] Physical Therapy Comment on above: Primary osteoarthrit is of right hip (Primary Dx) Start: 03-21-2024 End: 03-21-2024 ambulatory Sravani Felix [employer] DEVEL[employer] Work Phone: [facility] Comment on above: Primary osteoarthrit is of right hip (Primary Dx) Start: 03-16-2024 End: 03-18-2024 Refill Mary Glover POULTRY HATCHERY MANAGER.PROTEIN PURIFICATION SCIENTIST Work Phone: Internal [facility] Comment on above: Refill Request Start: 03-15-2024 End: 03-15-2024 Telephone encounter Bryan Linda DO Work Phone: [address] [place] [address] Start: 03-14-2024 End: 03-15-2024 ambulatory Peggy Phillips PT [facility] Physical Therapy Comment on above: Primary osteoarthrit is of right hip (Primary Dx) Refill Request Start: 02-22-2024 End: 02-22-2024 ambulatory MARY GLOVER Facility:[facility] Start: 02-22-2024 End: 02-22-2024 Subsequent hospital visit by physician Screen Mammo [facility] Comment on above: Encounter for screen ing mammogram for breast cancer [Z12.31] Start: 02-17-2024 End: 02-17-2024 ambulatory MARY GLOVER Facility:[facility] Start: 02-17-2024 End: 02-17-2024 Patient encounter procedure Bryan Linda DO Work Phone: [facility] Comment on above: Primary osteoarthrit is of right hip Start: 01-27-2024 End: 01-27-2024 Subsequent hospital visit by physician [facility] [place] Work Phone: Radiology Comment on above: Right hip pain [M25. 551] Start: 01-27-2024 End: 01-27-2024 ambulatory MARY GLOVER Facility:[facility] Start: 01-27-2024 End: 01-27-2024 Patient encounter procedure Mary Glover POULTRY HATCHERY MANAGER.PROTEIN PURIFICATION SCIENTIST Work Phone: Internal Medicine [place] Comment on above: Medicare annual well ness visit, subsequent (Primary Dx); Right hip pain; Hypertension, essential; Impaired fasting glucose; Hyperlipidemia LDL goal <100; Chronic kidney insufficiency, stage 3 (moderate) (HCC); SIOBHAN on CPAP; Encounter for screening mammogram for breast cancer; Encounter for screening examination for other mental health and behavioral disorders; Screening for depression Start: 01-18-2024 End: 01-18-2024 ambulatory NAVDEEP ULLOA Facility:[facility] Start: 01-12-2024 End: 01-12-2024 ambulatory BETHANY HODGES Facility:[facility] Start: 01-12-2024 End: 01-12-2024 Patient encounter procedure Bethany Hodges MD Work Phone: Dermatology Comment on above: Neoplasm of uncertai n behavior of skin of back (Primary Dx); Seborrheic keratosis Start: 09-02-2023 Telephone encounter Navdeep kowalski MD Work Phone: Internal Medicine [place] Start: 09-02-2023 End: 09-02-2023 ambulatory NAVDEEP ULLOA Facility:[facility] Start: 09-02-2023 End: 09-02-2023 Patient encounter procedure Navdeep Ulloa MD Work Phone: Internal Medicine [place] Comment on above: Hypertension, essent ial (Primary Dx); Venous insufficiency; Chronic kidney insufficiency, stage 3 (moderate) (HCC); Impaired fasting glucose; Hyperlipidemia LDL goal <100 Start: 08-25-2023 End: 08-25-2023 ambulatory NAVDEEP ULLOA Facility:[facility] Start: 08-25-2023 End: 08-25-2023 Patient encounter procedure Navdeep Ulloa MD Work Phone: Internal Medicine [place] Comment on above: Venous insufficiency (Primary Dx); Hypertension, essential; Fatigue, unspecified type; Chronic kidney insufficiency, stage 3 (moderate) (HCC) Start: 08-24-2023 End: 08-24-2023 ambulatory NAVDEEP ULLOA Facility:[facility] Start: 08-21-2023 ambulatory Navdeep rodriguez MD Work Phone: Internal Medicine [place] Comment on above: Edema Start: 08-17-2023 Telephone encounter Navdeep kowalski MD Work Phone: Internal Medicine [place] Comment on above: Results Start: 08-12-2023 End: 08-12-2023 Subsequent hospital visit by physician [facility]r [facility] [place] [facility] Work Phone: Radiology Comment on above: Bronchitis with bron chospasm [J20.9] Start: 08-12-2023 End: 08-12-2023 Patient encounter procedure Navdeep Ulloa MD Work Phone: Internal Medicine [place] Comment on above: Bronchitis with bron chospasm (Primary Dx) Start: 08-04-2023 Telephone encounter Benjamínty quintana POULTRY HATCHERY MANAGER.PROTEIN PURIFICATION SCIENTIST Work Phone: [place] [facility] Comment on above: Results Start: 08-03-2023 End: 08-03-2023 Patient encounter procedure Roxanne Mendoza POULTRY HATCHERY MANAGER.PROTEIN PURIFICATION SCIENTIST Work Phone: [place] [facility] Comment on above: URI, acute (Primary Dx); Acute cough Start: 04-23-2023 End: 04-23-2023 Patient encounter procedure Navdeep Ulloa MD Work Phone: Internal Medicine [place] Comment on above: Impacted cerumen of right ear (Primary Dx) Start: 02-20-2023 End: 02-20-2023 Subsequent hospital visit by physician Screen Mammo [facility] Comment on above: Encounter for screen ing mammogram for breast cancer [Z12.31] Start: 01-26-2023 End: 01-26-2023 Patient encounter procedure Mary Arroyo POULTRY HATCHERY MANAGER.PROTEIN PURIFICATION SCIENTIST Work Phone: Internal Medicine [place] Comment on above: Medicare annual well ness visit, subsequent (Primary Dx); Hypercalcemia; Encounter for screening mammogram for breast cancer Start: 10-02-2022 End: 10-02-2022 Patient encounter procedure Navdeep Ulloa MD Work Phone: Internal Medicine [place] Comment on above: Hypertension, essent ial (Primary Dx); Dry skin Start: 07-18-2022 Telephone encounter Navdeep kowalski MD Work Phone: Internal Medicine [place] Comment on above: Appointment Request: Cough and Other Symptoms Start: 02-19-2022 End: 02-19-2022 Subsequent hospital visit by physician Screen Mammo [facility] Comment on above: Encounter for screen ing mammogram for breast cancer [Z12.31] Start: 01-24-2022 End: 01-24-2022 Patient encounter procedure Mary Older POULTRY HATCHERY MANAGER.PROTEIN PURIFICATION SCIENTIST Work Phone: Internal Medicine [place] Comment on above: Medicare annual well ness visit, subsequent (Primary Dx); Encounter for screening mammogram for breast cancer Start: 10-25-2021 Refill Mary Older POULTRY HATCHERY MANAGER .PROTEIN PURIFICATION SCIENTIST Work Phone: Internal Medicine [place] Comment on above: Refill Request Start: 08-14-2021 End: 08-14-2021 Subsequent hospital visit by physician Xr [facility] [place] Work Phone: Radiology Comment on above: Rhonchi at both lung bases [R09.89] Start: 08-14-2021 End: 08-14-2021 Patient encounter procedure Freeman Martinez POULTRY HATCHERY MANAGER.PROTEIN PURIFICATION SCIENTIST Work Phone: [facility] Comment on above: Sinobronchitis (Prim mustapha Dx); Rhonchi at both lung bases; URI, acute Start: 08-14-2021 Telephone encounter Navdeep kowalski MD Work Phone: Internal Medicine [place] Comment on above: Patient Update Start: 05-24-2021 End: 05-24-2021 Patient encounter procedure Navdeep Ulloa MD Work Phone: Internal Medicine [place] Comment on above: Hypertension, essent ial (Primary Dx); Hyperlipidemia LDL goal <100; SIOBHAN on CPAP; Multiple joint pain; Premature beats Procedures Date Procedure Procedure Detail Performing Clinician Start: 07-21-[address] New Bear MD Work Phone: Start: 07-20-2024 Radex hip unilateral with pelvis 2-3 views Eligio Gibbons MD Work Phone: Start: 07-09-2024 Vitamin D, 25-hydrox y measurement Dr. New Baer MD Work Phone: Comment on above: Vitamin D StatusDefi ciency: <20 ng/mL (50nmol/L)Insufficiency: 20-30 ng/mL (50-75 nmol/L)Sufficiency: 30-100 ng/mL (75-250 nmol/L)Toxicity: >100 ng/mL (>250 nmol/L) Start: 06-23-2024 Myocardial spect mul tiple studies Taty Hidalgo MD Work Phone: Start: 06-23-2024 Echo tthrc r-t 2d w/ wom-mode compl spec&colr d Taty Hidalgo MD Work Phone: Start: 06-07-2024 Antibody screen BELKIS GIBBONS Comment on above: Order Comment: Speci men Type: BLOOD SPECIMENOrdering Facility: [facility] Address: [address] [place] [address] Performed By: #### L [id number], [id number] ####[facility] [id number] [address] OF AKI Start: 03-31-2024 Urnls dip stick/tabl et rgnt auto w/o microscopy Navdeep Ulloa MD Work Phone: Start: 01-27-2024 Adult depression scr eening assessment Mary Ludy POULTRY HATCHERY MANAGER.PROTEIN PURIFICATION SCIENTIST Work Phone: Start: 01-18-2024 Lipid 1996 panel - S maulik or Plasma Mary Ludy POULTRY HATCHERY MANAGER.PROTEIN PURIFICATION SCIENTIST Work Phone: Start: 01-22-2023 Lipid 1996 panel - S maulik or Plasma Mary Older POULTRY HATCHERY MANAGER.PROTEIN PURIFICATION SCIENTIST Work Phone: Start: 02-19-2022 End: 02-19-2022 Mammography Mary Older POULTRY HATCHERY MANAGER.PROTEIN PURIFICATION SCIENTIST Work Phone: Start: 11-10-2022 Lipid 1996 panel - S maulik or Plasma Screen [facility] Start: 08-14-2021 Radiologic exam ches t 2 views Freeman Juan POULTRY HATCHERY MANAGER.PROTEIN PURIFICATION SCIENTIST Work Phone: Start: 02-15-2021 Mammography Navdeep Pop MD Work Phone: Start: 10-22-2020 Adult depression scr eening assessment Navdeep Ulloa MD Work Phone: Start: 02-13-2017 Colonoscopy Navdeep Pop MD Work Phone: Plan of Treatment Date Care Activity Detail Author Start: 01-17-2029 Lipid panel Lipid Screening [facility] Start: 01-23-2028 Lipid 1996 panel - Serum or Plasma Lipid Screening [facility] Start: 01-23-2028 Lipid panel Lipid Screening [facility] Start: 08-09-2027 Diabetes Screening Diabetes Screening [facility] Start: 07-07-2027 Diabetes Screening Diabetes Screening [facility] Start: 06-08-2027 Diabetes Screening Diabetes Screening [facility] Start: 02-13-2027 Colonoscopy COLONOSCOPY [facility] Start: 02-13-2027 COLORECTAL CANCER SCREENING COLORECTAL CANCER SCREENING [facility] Start: 02-13-2027 Screening for malignant neoplasm of colon [facility] Start: 01-17-2027 Diabetes Screening Diabetes Screening [facility] Start: 01-16-2027 Lipid 1996 panel - Serum or Plasma Lipid Screening [facility] Start: 01-16-2027 LIPID SCREEN LIPID SCREEN [facility] Start: 08-23-2026 Diabetes Screening Diabetes Screening [facility] Start: 03-30-2026 Diabetes Screening Diabetes Screening [facility] Start: 01-22-2026 Diabetes Screening Diabetes Screening [facility] Start: 01-18-2026 LIPID SCREEN LIPID SCREEN [facility] Start: 08-09-2025 BP Controlled (<130/80) BP Controlled (<130/80) [facility] Start: 08-08-2025 Creatinine measurement Serum Creatinine [facility] Start: 08-04-2025 BP Controlled (<130/80) BP Controlled (<130/80) [facility] Start: 08-02-2025 BP Controlled (<130/80) BP Controlled (<130/80) [facility] Start: 07-27-2025 Annual PCP Team Chronic Disease Visit Annual PCP Team Chronic Disease Visit [facility] Start: 07-27-2025 Covid-19 Vaccine ( season) Covid-19 Vaccine () [facility] Comment on above: Postponed from 05/22/2024 (Declined at t his time) Start: 07-25-2025 BP Controlled (<130/80) BP Controlled (<130/80) [facility] Start: 07-23-2025 BP Controlled (<130/80) BP Controlled (<130/80) [facility] Start: 07-06-2025 Creatinine measurement Serum Creatinine [facility] Start: 07-05-2025 Complete blood count Hemoglobin/Hematocrit [facility] Start: 06-09-2025 BP Controlled (<130/80) BP Controlled (<130/80) [facility] Start: 06-07-2025 Creatinine measurement Serum Creatinine [facility] Start: 03-31-2025 Annual PCP Team Chronic Disease Visit Annual PCP Team Chronic Disease Visit [facility] Start: 02-21-2025 Screening for malignant neoplasm of breast Mammogram Screening [facility] Start: 01-26-2025 Annual PCP Team Chronic Disease Visit Annual PCP Team Chronic Disease Visit [facility] Start: 01-26-2025 Anxiety Screening Anxiety Screening [facility] Start: 01-26-2025 BP Controlled (<130/80) BP Controlled (<130/80) [facility] Start: 01-26-2025 Depression Screening Depression Screening [facility] Start: 01-26-2025 Medicare Annual Wellness Visit Medicare Annual Wellness Visit [facility] Start: 01-17-2025 Creatinine measurement Serum Creatinine [facility] Start: 01-16-2025 DIABETES SCREEN DIABETES SCREEN [facility] Start: 01-16-2025 Diabetes Screening Diabetes Screening [facility] Start: 10-25-2024 End: 10-25-2024 Patient encounter procedure 10/25/2024 10:40 AM EDT Office Visit Internal Medicine [place] [address] [place] [address] Navdeep Ulloa MD [address] [place] [address] 3 month follow-up Internal Medicine [place] Comment on above: 3 month follow-up Start: 09-01-2024 Annual PCP Team Chronic Disease Visit Annual PCP Team Chronic Disease Visit [facility] Start: 09-01-2024 BP Controlled (<130/80) BP Controlled (<130/80) [facility] Start: 08-31-2024 End: 08-31-2024 Patient encounter procedure 08/31/2024 10:30 AM EDT Office Visit Orthopaedics [address] [address] Jamal Gr PA-C [address] [address] R posterior sylvester DOS 06/30/24 Orthopaedics Comment on above: R posterior sylvester DOS 06/30/24 Start: 08-24-2024 Annual PCP Team Chronic Disease Visit Annual PCP Team Chronic Disease Visit [facility] Start: 08-24-2024 BP Controlled (<130/80) BP Controlled (<130/80) [facility] Start: 08-24-2024 Complete blood count Hemoglobin/Hematocrit [facility] Start: 08-23-2024 Creatinine measurement Serum Creatinine [facility] Start: 08-17-2024 End: 08-17-2024 Patient encounter procedure Cardiology Comment on above: 6 week follow up 4 week follow up Start: 08-12-2024 Patient referral [facility] Work Phone: Start: 08-11-2024 Annual PCP Team Chronic Disease Visit Annual PCP Team Chronic Disease Visit [facility] Start: 08-11-2024 BP Controlled (<130/80) BP Controlled (<130/80) [facility] Start: 08-11-2024 Evaluation of diagnostic study results [facility] Start: 08-08-2024 End: 11-07-2024 Basic metabolic 2000 panel - Serum or Plasma BASIC METABOLIC PANEL Lab Routine Venous insufficiency Expected: 08/08/2024, Expires: 11/07/2024 [facility] Work Phone: Comment on above: Expected: 08/08/2024, Expires: Start: 08-02-2024 BP Controlled (<130/80) BP Controlled (<130/80) [facility] Start: 08-02-2024 End: 08-02-2024 Patient encounter procedure 08/02/2024 8:30 AM EDT Office Visit Cardiology [address] [address] Roxanne Quesada APRN.PROTEIN PURIFICATION SCIENTIST [address] [address] 6 week follow up Cardiology Comment on above: 6 week follow up Start: 07-27-2024 End: 07-27-2024 Patient encounter procedure 07/27/2024 11:20 AM EDT Office Visit Internal [facility] [place] [address] [place] [address] Navdeep Ulloa MD [address] [place] [address] 07/23 right total hip [facility] Internal Medicine [place] Comment on above: 06/30- 07/23 right total hip [facility] Start: 07-26-2024 End: 07-26-2024 Nursing evaluation of patient and report 07/26/2024 9:00 AM EDT Nurse Visit Cardiology [address] [address] , Nurse Card [place] [address] Hidalgo Cardiology Comment on above: EKG per Dr. Hidalgo Start: 07-22-2024 Development of care plan [facility] Start: 07-22-2024 Patient discharge [facility] Start: 07-21-2024 Speech therapy management [facility] Start: 07-21-2024 Referral to service [facility] Start: 07-21-2024 [facility] Start: 07-21-2024 End: 07-21-2024 Patient encounter procedure 07/21/2024 10:40 AM EDT Office Visit [facility] [place] [address] [place] [address] Navdeep Ulloa MD [address] [place] [address] 6 month follow-up [facility] [place] Comment on above: 6 month follow-up Start: 07-21-2024 [facility] Start: 07-20-2024 End: 07-20-2024 Patient encounter procedure Radiology Comment on above: R hip sylvester DOS 06/30/24 R posterior sylvester DOS 06/30/24 Start: 07-20-2024 Continuous positive airway pressure ventilation treatment [facility] Start: 07-17-2024 [facility] Start: 07-14-2024 End: 07-14-2024 Nursing evaluation of patient and report 07/14/2024 10:00 AM EDT Nurse Visit Orthopaedics [address] [address] Sandro Escobar, RN [address] [address] R sylvester DOS 06/30/24 Orthopaedics Comment on above: R sylvester DOS 06/30/24 Start: 07-08-2024 Speech therapy management [facility] Start: 07-08-2024 Speech therapy assessment [facility] Start: 07-07-2024 End: 10-06-2024 CBC panel - Blood by Automated count COMPLETE BLOOD COUNT Lab Routine Hypertension, essential Expected: 07/07/2024 (Approximate), Expires: 10/06/2024 [facility] Comment on above: Expected: 07/07/2024 (Approximate), Expi res: 10/06/2024 Start: 07-07-2024 End: 10-06-2024 Hemoglobin A1c in Blood HEMOGLOBIN A1C Lab Routine Impaired fasting glucose Expected: 07/07/2024 (Approximate), Expires: 10/06/2024 [facility] Comment on above: Expected: 07/07/2024 (Approximate), Expi res: 10/06/2024 Start: 07-07-2024 Developing a treatment plan [facility] Start: 07-07-2024 Development of care plan [facility] Start: 07-06-2024 Admission procedure [facility] Start: 07-06-2024 Introduction of urinary catheter [facility] Start: 07-06-2024 Measuring intake and output [facility] Start: 07-06-2024 Patient referral to dietitian [facility] Start: 07-06-2024 Referral to occupational therapist [facility] Start: 07-06-2024 Referral to service [facility] Start: 07-06-2024 Vital signs measurements [facility] Start: 07-06-2024 End: 07-06-2024 [facility] Start: 07-06-2024 Provision of activity privileges [facility] Start: 07-06-2024 Application of device [facility] Start: 06-30-2024 End: 06-30-2024 Arthrp acetblr/prox fem prostc agrft/algrft ROBOTIC ASSISTED TOTAL HIP ARTHROPLASTY Primary osteoarthritis of right hip 06/30/2024 10:35 AM EDT ME OR Start: 06-30-2024 End: 06-30-2024 Admission to same day surgery center [facility] Surgery Comment on above: ROBOTIC ASSISTED TOTAL HIP ARTHROPLASTY (see comments) Start: 06-30-2024 End: 06-30-2024 Arthrp acetblr/prox fem prostc agrft/algrft ME OR Start: 06-30-2024 Subsequent hospital visit by physician [facility] Surgery Comment on above: Primary osteoarthritis of right hip [M16 .11] Start: 06-23-2024 Subsequent hospital visit by physician 06/23/2024 9:00 AM EDT Hospital Encounter Cardiology Lab [address] [place] [id number] Atrial flutter, unspecified type (HCC) [I48.92] Cardiology Lab Comment on above: Atrial flutter, unspecified type (HCC) [ I48.92] Start: 06-23-2024 End: 06-23-2024 Patient encounter procedure Cardiology Lab Comment on above: Dx: Atrial flutter, unspecified type (HC C) [I48.92]; Paroxysmal A-fib (HCC) [I48.0] Dx: Atrial flutter, unspecified type (HCC) [I48.92]; Abnormal electrocardiogram (ECG) (EKG) [R94.31] Start: 06-09-2024 End: 06-09-2025 Echocardiography ECHO Cardiology Routine Atrial flutter, unspecified type (HCC) Paroxysmal A-fib (HCC) Expected: 06/09/2024, Expires: 06/09/2025 [facility] Comment on above: Expected: 06/09/2024, Expires: Start: 06-09-2024 End: 09-08-2024 TSH W/REFLEX FT4 TSH W/REFLEX FT4 Lab Routine Atrial flutter, unspecified type (HCC) Paroxysmal A-fib (HCC) Expected: 06/09/2024, Expires: 09/08/2024 [facility] Work Phone: Comment on above: Expected: 06/09/2024, Expires: Start: 06-09-2024 End: 06-09-2024 Patient encounter procedure 06/09/2024 11:00 AM EDT Office Visit Cardiology [address] [address] Taty Hidalgo MD [address] [place] [address] pre op Cardiology Comment on above: pre op Start: 06-07-2024 End: 06-07-2024 Patient encounter procedure 06/07/2024 3:30 PM EDT Appointment Radiology [address] [place] [address] kvng Primary osteoarthritis of right hip [M16.11] Radiology Comment on above: kvng Primary osteoarthritis of right hip [M16.11] Start: 06-07-2024 End: 06-07-2024 Anesthesia consultation 06/07/2024 1:00 PM EDT PAT Pre Anesthesia [address] [place] [address] 06/30 ROBOTIC ASSISTED TOTAL HIP ARTHROPLASTY (see comments) [96411] - Hip - Right Pre Anesthesia Comment on above: 06/30 ROBOTIC ASSISTED TOTAL HIP ARTHROPL ASTY (see comments) [86606] - Hip - Right Start: 06-07-2024 End: 06-07-2024 Patient encounter procedure Orthopaedics Comment on above: Primary osteoarthritis of right hip [M16 .11] Start: 05-22-2024 Covid-19 Vaccine ( season) Covid-19 Vaccine ( season) [facility] Start: 05-11-2024 End: 08-10-2024 CBC W Auto Differential panel - Blood COMPLETE BLOOD COUNT AND DIFFERENTIAL Lab Routine Primary osteoarthritis of right hip Preoperative examination Expected: 05/11/2024, Expires: 08/10/2024 [facility] Comment on above: Expected: 05/11/2024, Expires: Start: 05-11-2024 End: 08-10-2024 Comprehensive metabolic 2000 panel - Serum or Plasma COMPREHENSIVE METABOLIC PANEL Lab Routine Primary osteoarthritis of right hip Preoperative examination Expected: 05/11/2024, Expires: 08/10/2024 [facility] Comment on above: Expected: 05/11/2024, Expires: Start: 05-11-2024 End: 08-10-2024 Hemoglobin A1c in Blood HEMOGLOBIN A1C Lab Routine Primary osteoarthritis of right hip Preoperative examination Impaired fasting glucose Expected: 05/11/2024, Expires: 08/10/2024 [facility] Comment on above: Expected: 05/11/2024, Expires: Start: 05-11-2024 End: 08-10-2024 TYPE AND SCREEN,30 DAY TYPE AND SCREEN,30 DAY Blood Bank Routine Primary osteoarthritis of right hip Preoperative examination Expected: 05/11/2024, Expires: 08/10/2024 [facility] Comment on above: Expected: 05/11/2024, Expires: Start: 05-11-2024 End: 05-11-2024 Patient encounter procedure 05/11/2024 10:40 AM EST Office Visit Orthopaedics [address] [address] Eligio Gibbons MD [address] [place] [address] Arthritis of right hip [M16.11] Orthopaedics Comment on above: Arthritis of right hip [M16.11] Start: 04-23-2024 Annual PCP Team Chronic Disease Visit Annual PCP Team Chronic Disease Visit [facility] Start: 04-23-2024 BP Controlled (<130/80) BP Controlled (<130/80) [facility] Start: 04-22-2024 End: 04-22-2024 Patient encounter procedure 04/22/2024 11:00 AM EST Office Visit [facility] [place] [address] [place] [address] Bryan Linda, V, DO [address] [place] [address] R hip Therapist sending patient back from therapy to see referring Doctor (Bryan Linda) [facility] [place] Comment on above: R hip Therapist sending patient back fro m therapy to see referring Doctor (Bryan Linda) Start: 04-14-2024 End: 04-14-2024 ambulatory 04/14/2024 12:30 PM EST OT/PT/Speech Visit [facility] [address] [place] [address] Peggy Phillips, PT M16.11 (ICD-10-CM) - Primary osteoarthritis of right hip [facility] Comment on above: M16.11 (ICD-10-CM) - Primary osteoarthri tis of right hip Start: 04-04-2024 End: 04-04-2024 ambulatory 04/04/2024 2:45 PM EST OT/PT/Speech Visit [facility] [address] [place] [address] KasSravani gandara, NET WEB APPLICATION DEVELOPER [address] [place] [address] M16.11 (ICD-10-CM) - Primary osteoarthritis of right hip [facility] Comment on above: M16.11 (ICD-10-CM) - Primary osteoarthri tis of right hip Start: 03-28-2024 End: 03-28-2024 ambulatory 03/28/2024 2:45 PM EST OT/PT/Speech Visit [facility] [address] [place] [address] Peggy Phillips, PT M16.11 (ICD-10-CM) - Primary osteoarthritis of right hip [facility] Comment on above: M16.11 (ICD-10-CM) - Primary osteoarthri tis of right hip Start: 03-21-2024 End: 03-21-2024 ambulatory 03/21/2024 2:45 PM EST OT/PT/Speech Visit [facility] [address] [place] [address] Sravani Felix, NET WEB APPLICATION DEVELOPER [address] [place] [address] M16.11 (ICD-10-CM) - Primary osteoarthritis of right hip [facility] Comment on above: M16.11 (ICD-10-CM) - Primary osteoarthri tis of right hip Start: 03-14-2024 End: 03-14-2024 ambulatory 03/14/2024 11:30 AM EST OT/PT/Speech Visit [facility] [address] [place] [address] Peggy Phillips PT Primary osteoarthritis of right hip [M16.11] [facility] Comment on above: Primary osteoarthritis of right hip [M16 .11] Start: 03-09-2024 Advance Directive Discussion Advance Directive Discussion [facility] Start: 03-05-2024 DIABETES SCREEN DIABETES SCREEN [facility] Start: 02-22-2024 End: 02-22-2024 Patient encounter procedure 02/22/2024 11:10 AM EST Appointment Mammogram [address] [place] [address] Encounter for screening mammogram for breast cancer [Z12.31] Mammogram Comment on above: Encounter for screening mammogram for br east cancer [Z12.31] Start: 02-21-2024 Screening for malignant neoplasm of breast Mammogram Screening [facility] Start: 01-27-2024 Annual PCP Team Chronic Disease Visit Annual PCP Team Chronic Disease Visit [facility] Start: 01-27-2024 BP Controlled (<130/80) BP Controlled (<130/80) [facility] in Start: 01-27-2024 RSV Vaccine (1 - 1-dose 60+ series) RSV Vaccine (1 - 1-dose 60+ series) [facility] Comment on above: Postponed from 2011 (Declined at t his time) Start: 01-27-2024 Urine microalbumin profile DTaP,Tdap,Td Vaccine (2 - Td or Tdap) [facility] Comment on above: Postponed from 03/24/2017 (Declined at t his time) Start: 01-27-2024 End: 01-27-2024 Patient encounter procedure 01/27/2024 11:00 AM EST Office Visit [facility] [place] [address] [facility] [place] [address] Mary Glover, POULTRY HATCHERY MANAGER.PROTEIN PURIFICATION SCIENTIST [address] [facility] [place] [address] Annual Medicare Wellness [facility] [place] Comment on above: Annual Medicare Wellness Start: 01-11-2024 End: 04-11-2024 Comprehensive metabolic 2000 panel - Serum or Plasma COMPREHENSIVE METABOLIC PANEL Lab Routine Hyperlipidemia LDL goal <100 Expected: 01/11/2024, Expires: 04/11/2024 [facility] Work Phone: Comment on above: Expected: 01/11/2024, Expires: 5 Start: 01-11-2024 End: 04-11-2024 Lipid 1996 panel - Serum or Plasma LIPID PANEL BASIC Lab Routine Hyperlipidemia LDL goal <100 Expected: 01/11/2024, Expires: 04/11/2024 [facility] Comment on above: Expected: 01/11/2024, Expires: 5 Start: 10-03-2023 ANNUAL PCP TEAM CHRONIC DISEASE VISIT ANNUAL PCP TEAM CHRONIC DISEASE VISIT [facility] Start: 09-02-2023 End: 09-02-2023 Patient encounter procedure 09/02/2023 10:00 AM EDT Office Visit [facility] [place] [address] [facility] [place] [address] Navdeep Ulloa MD [address] [facility] [place] [address] 5 month follow-up [facility] [place] Comment on above: 5 month follow-up Start: 08-24-2023 End: 08-24-2023 Patient encounter procedure 08/24/2023 8:00 AM EDT Office Visit [facility] [place] [address] [place] [address] Dot Villa, KASIA.DATA ADMINISTRATOR [address] [place] [address] Bilateral foot and ankle swelling. See triage 08/21/23. [facility] [place] Comment on above: Bilateral foot and ankle swelling. See fredi smith 08/21/23. Start: 08-03-2023 End: 08-17-2023 COVID & INFLUENZA A/B & RSV NAAT, ROUTINE [facility] Work Phone: Comment on above: Expected: 08/03/2023, Expires: Start: 07-19-2023 ANNUAL PCP TEAM CHRONIC DISEASE VISIT ANNUAL PCP TEAM CHRONIC DISEASE VISIT [facility] Start: 04-24-2023 Covid-19 Vaccine () Covid-19 Vaccine () [facility] Start: 03-09-2023 Advance Directive Discussion Advance Directive Discussion [facility] Start: 03-09-2023 Behavioral Health Screening Behavioral Health Screening [facility] Start: 02-25-2023 End: 05-27-2023 Basic metabolic 2000 panel - Serum or Plasma BASIC METABOLIC PNL Lab Routine Hypercalcemia Expected: 02/25/2023 (Approximate), Expires: 05/27/2023 [facility] Work Phone: Comment on above: Expected: 02/25/2023 (Approximate), Expi res: 05/27/2023 Start: 02-19-2023 Mammography [facility] Start: 02-19-2023 Screening for malignant neoplasm of breast Mammogram Screening [facility] Start: 01-24-2023 ANNUAL PCP TEAM CHRONIC DISEASE VISIT ANNUAL PCP TEAM CHRONIC DISEASE VISIT [facility] Start: 11-07-2022 Influenza vaccination INFLUENZA (#1) [facility] Start: 05-24-2022 ANNUAL PCP TEAM CHRONIC DISEASE VISIT ANNUAL PCP TEAM CHRONIC DISEASE VISIT [facility] Start: 05-24-2022 BP CONTROLLED (<130/80) BP CONTROLLED (<130/80) [facility] Start: 04-28-2022 COVID-19 VACCINE (5 - Pfizer series) COVID-19 VACCINE (5 - Pfizer series) [facility] Start: 03-09-2022 ADVANCE DIRECTIVE DISCUSSION ADVANCE DIRECTIVE DISCUSSION [facility] Start: 03-09-2022 DEPRESSION ASSESSMENT DEPRESSION ASSESSMENT [facility] Start: 02-15-2022 Mammography MAMMOGRAM [facility] Start: 01-25-2022 Urine microalbumin profile DTAP,TDAP,TD (2 - Td or Tdap) [facility] Comment on above: Postponed from 03/24/2017 (Declined at t his time) Start: 12-24-2021 End: 02-23-2022 Comprehensive metabolic 2000 panel - Serum or Plasma COMP METABOLIC PANEL Lab Routine Hyperlipidemia LDL goal <100 Expected: 12/24/2021, Expires: 02/23/2022 [facility] Work Phone: Comment on above: Expected: 12/24/2021, Expires: 2 Start: 12-24-2021 End: 02-23-2022 LIPID PANEL BASIC LIPID PANEL BASIC Lab Routine Hyperlipidemia LDL goal <100 Expected: 12/24/2021, Expires: 02/23/2022 [facility] Work Phone: Comment on above: Expected: 12/24/2021, Expires: 2 Start: 11-07-2021 Influenza vaccination INFLUENZA (#1) [facility] Start: 10-22-2021 Adult depression screening assessment DEPRESSION SCREENING [facility] Start: 07-06-2021 COVID-19 VACCINE (4 - Booster for Pfizer series) COVID-19 VACCINE (4 - Booster for Pfizer series) [facility] Start: 03-24-2017 Urine microalbumin profile [facility] Start: 02-13-2017 End: 02-13-2017 Appointment Appointment [facility] [employer] Work Phone: Start: 01-07-2017 End: 01-07-2017 Colonoscopy flx dx w/collj spec when pfrmd Colonoscopy [facility] [employer] Work Phone: Start: 04-04-2016 FECAL OCCULT BLOOD FECAL OCCULT BLOOD [facility] Start: 04-04-2016 Screening for malignant neoplasm of colon Fecal Occult Blood [facility] Start: 2011 RSV Vaccine (1 - 1-dose 60+ series) RSV Vaccine (1 - 1-dose 60+ series) [facility] Start: 01-20-1996 COLOGUARD (FIT-DNA) COLOGUARD (FIT-DNA) [facility] Start: 01-20-[address] COLONOGRAPHY [facility] Start: 01-20-1996 Screening for malignant neoplasm of colon [facility] Start: 01-20-1996 SIGMOIDOSCOPY SIGMOIDOSCOPY [facility] Start: 1969 Anxiety Screening Anxiety Screening [facility] Start: 1969 BP CONTROLLED (<130/80) BP CONTROLLED (<130/80) [facility] in Start: 1969 Depression Screening Depression Screening [facility] Bacteria identified in Urine by Culture BACTERIAL CULTURE, URINE Microbiology Routine Dysuria Ordered: 03/31/2024 [facility] Work Phone: Comment on above: Ordered: 03/31/2024 End: 06-10-2025 CT Hip - right WO contrast CT HIP WO IVCON RIGHT Radiology Routine Primary osteoarthritis of right hip Preoperative examination 1 Occurrences starting 05/11/2024 until 06/10/2025 [facility] Comment on above: 1 Occurrences starting 05/11/2024 until 06/10/2025 CT Hip - right WO contrast CT HIP WO IVCON RIGHT Radiology Routine Primary osteoarthritis of right hip Preoperative examination 06/07/2024 2:14 PM EDT [facility] Work Phone: End: 02-25-2025 DBT Breast - bilateral screening JOEL SCREENING W DIALLO Radiology Routine Encounter for screening mammogram for breast cancer 1 Occurrences starting 01/27/2024 until 02/25/2025 [facility] Work Phone: Comment on above: 1 Occurrences starting 01/27/2024 until 02/25/2025 DBT Breast - bilater al screening JOEL SCREENING W DIALLO Radiology Routine Encounter for screening mammogram for breast cancer 02/22/2024 11:28 AM EST [facility] Work Phone: End: 05-24-2022 ECG COMPLETE ECG COMPLETE ECG Routine Premature beats 1 Occurrences starting 05/24/2021 until 05/24/2022 [facility] Work Phone: Comment on above: 1 Occurrences starting 05/24/2021 until 05/24/2022 ECG COMPLETE ECG COMPLETE ECG Routine Pre-op evaluation Hypertension, essential SIOBHAN on CPAP Hyperlipidemia LDL goal <100 Chronic kidney insufficiency, stage 3 (moderate) (HCC) Obesity, Class I, BMI 30-34.9 Venous insufficiency Ordered: 06/07/2024 [facility] Work Phone: Comment on above: Ordered: 06/07/2024 Influenza virus A an d B RNA and SARS-CoV-2 (COVID-19) N gene panel - Respiratory specimen by MEJIA with probe detection COVID WITH FLUA+B, ROUTINE Microbiology Routine URI, acute 08/14/2021 3:16 PM EDT [facility] Work Phone: End: 02-25-2024 JOEL SCREENING JOEL SCREENING Radiology Routine Encounter for screening mammogram for breast cancer 1 Occurrences starting 01/26/2023 until 02/25/2024 [facility] Work Phone: Comment on above: 1 Occurrences starting 01/26/2023 until 02/25/2024 JOEL SCREENING JOEL SCREENING Ra diology Routine Encounter for screening mammogram for breast cancer 02/20/2023 12:34 PM EST [facility] Work Phone: End: 07-09-2025 NM Heart Perfusion W stress and W radionuclide IV NM CARDIAC PERF STRESS/PHARM Radiology Routine Atrial flutter, unspecified type (HCC) Abnormal electrocardiogram (ECG) (EKG) 1 Occurrences starting 06/09/2024 until 07/09/2025 [facility] Comment on above: 1 Occurrences starting 06/09/2024 until 07/09/2025 Patient referral [facility] Work Phone: Removal impacted cer umen irrigation/lvg unilat AMBULATORY EAR LAVAGE/IRRIGATION Procedures Routine Impacted cerumen of right ear Ordered: 04/23/2023 [facility] Work Phone: Comment on above: Ordered: 04/23/2023 End: 02-23-2023 Screening mammography bi 2-view breast inc cad JOEL SCREENING Radiology Routine Encounter for screening mammogram for breast cancer 1 Occurrences starting 01/24/2022 until 02/23/2023 [facility] Work Phone: Comment on above: 1 Occurrences starting 01/24/2022 until 02/23/2023 SURGICAL PATHOLOGY SURGICAL PATH OLOGY Lab Routine Neoplasm of uncertain behavior of skin of back Ordered: 01/12/2024 [facility] Work Phone: Comment on above: Ordered: 01/12/2024 US.doppler Lower extremity vessels [facility] End: 09-10-2024 XR Chest PA and Lateral XR CHEST 2V FRONTAL/LAT Radiology Routine Bronchitis with bronchospasm 1 Occurrences starting 08/12/2023 until 09/10/2024 [facility] Work Phone: Comment on above: 1 Occurrences starting 08/12/2023 until 09/10/2024 XR Chest PA and Lateral XR CHEST 2V FRONTAL/LAT Radiology Routine Bronchitis with bronchospasm 08/12/2023 9:16 AM EDT [facility] End: 06-10-2025 XR Lumbar spine Single view XR LUMBAR SPECIFY 1V Radiology Routine Primary osteoarthritis of right hip 1 Occurrences starting 05/11/2024 until 06/10/2025 [facility] Work Phone: Comment on above: 1 Occurrences starting 05/11/2024 until 06/10/2025 XR Lumbar spine Sing le view XR LUMBAR SPECIFY 1V Radiology Routine Primary osteoarthritis of right hip 05/11/2024 10:54 AM [facility] End: 02-25-2025 XR Pelvis and Hip - right AP and Lateral frog XR HIP GENERAL 3V PELV/AP/LAT RIGHT Radiology Routine Right hip pain 1 Occurrences starting 01/27/2024 until 02/25/2025 [facility] Comment on above: 1 Occurrences starting 01/27/2024 until 02/25/2025 XR Pelvis and Hip - right AP and Lateral frog XR HIP GENERAL 3V PELV/AP/LAT RIGHT Radiology Routine Right hip pain 01/27/2024 11:49 AM EST [facility] End: 08-10-2025 XR Pelvis and Hip - right AP and Lateral frog XR HIP GENERAL 3V PELV/AP/LAT RIGHT Radiology Routine Status post right hip replacement 1 Occurrences starting 07/11/2024 until 08/10/2025 [facility] Work Phone: Comment on above: 1 Occurrences starting 07/11/2024 until 08/10/2025 End: 08-20-2025 XR Pelvis and Hip - right AP and Lateral frog XR HIP GENERAL 3V PELV/AP/LAT RIGHT Radiology Routine Status post right hip replacement 1 Occurrences starting 07/20/2024 until 08/20/2025 [facility] Work Phone: Comment on above: 1 Occurrences starting 07/20/2024 until 08/20/2025 End: 09-16-2025 XR Pelvis and Hip - right AP and Lateral frog XR HIP GENERAL 3V PELV/AP/LAT RIGHT Radiology Routine Status post right hip replacement 1 Occurrences starting 08/17/2024 until 09/16/2025 [facility] Work Phone: Comment on above: 1 Occurrences starting 08/17/2024 until 09/16/2025 [facility] Immunizations Immunization Date Immunization Notes Care Provider Fa [facility] 11-23-2023 COVID-19 vaccine, ag e 12+ yr (PFIZER-BIONTECH COMIRNATY) Bethany Hodges MD Work Phone: [facility] 11-23-2023 influenza (aIIV4) vaccine, age 65+ yr, quadrivalent, PF (FLUAD QUAD) Bethany Hodges MD Work Phone: [facility] 11-23-2023 influenza, high dose seasonal, preservative-free Dr. 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 Work Phone: [facility] 12-08-2022 influenza (HD-IIV4) vaccine, age 65+ yr, high dose, quadrivalent, PF (FLUZONE HIGH-DOSE) Navdeep Ulloa MD Work Phone: [facility] 12-08-2022 influenza, high dose seasonal, preservative-free Mary Older POULTRY HATCHERY MANAGER.[facility] Work Phone: [facility] Work Phone: 12-26-2021 COVID-19 booster vaccine, age 12+ yr, bivalent (PFIZER-BIONTECH) Mary Older POULTRY HATCHERY MANAGER.[facility] Work Phone: [facility] Work Phone: 12-26-2021 influenza (HD-IIV4) vaccine, age 65+ yr, high dose, quadrivalent, PF (FLUZONE HIGH-DOSE) Screen [facility] Work Phone: 12-26-2021 influenza, high dose seasonal, preservative-free Mary Older POULTRY HATCHERY MANAGER.[facility] Work Phone: [facility] Work Phone: 03-07-2021 COVID-19 vaccine, ag e 12+ yr (PFIZER-BIONTECH - PURPLE TOP) Navdeep Ulloa MD Work Phone: [facility] Work Phone: 12-27-2020 influenza (HD-IIV4) vaccine, age 65+ yr, high dose, quadrivalent, PF (FLUZONE HIGH-DOSE) Screen [facility] Work Phone: 12-27-2020 influenza, high dose seasonal, preservative-free Navdeep Ulloa MD Work Phone: [facility] Work Phone: 12-27-2020 zoster vaccine recombinant Navdeep Ulloa MD Work Phone: [facility] Work Phone: 10-25-2020 zoster vaccine recombinant Navdeep Ulloa MD Work Phone: [facility] Work Phone: 06-21-2020 COVID-19 vaccine, ag e 12+ yr (PFIZER-BIONTECH - PURPLE TOP) Navdeep Ulloa MD Work Phone: [facility] Work Phone: 06-07-2020 Covid (Pfizer) Dr. New Bear MD Work Phone: [facility] 05-31-2020 COVID-19 vaccine, ag e 12+ yr (PFIZER-BIONTECH - PURPLE TOP) Navdeep Ulloa MD Work Phone: [facility] Work Phone: 11-15-2019 influenza (HD-IIV4) vaccine, age 65+ yr, high dose, quadrivalent, PF (FLUZONE HIGH-DOSE) Screen [facility] Work Phone: 11-15-2019 influenza, high dose seasonal, preservative-free Navdeep Ulloa MD Work Phone: [facility] 01-14-2019 influenza, high dose seasonal, preservative-free Navdeep Ulloa MD Work Phone: [facility] 01-14-2019 pneumococcal polysaccharide vaccine, 23 valent Navdeep Ulloa MD Work Phone: [facility] 08-06-2018 pneumococcal polysaccharide vaccine, 23 valent Navdeep Ulloa MD Work Phone: [facility] 01-04-2018 influenza, high dose seasonal, preservative-free Navdeep Ulloa MD Work Phone: [facility] 2017 influenza, high dose seasonal, preservative-free Screen [facility] Work Phone: 2017 pneumococcal conjuga te vaccine, 13 valent Screen [facility] Work Phone: 03-28-2016 influenza, high dose seasonal, preservative-free Navdeep Ulloa MD Work Phone: [facility] 03-28-2016 pneumococcal conjuga te vaccine, 13 valent Navdeep Ulloa MD Work Phone: [facility] 01-25-2015 influenza, injectabl e, quadrivalent, preservative free Screen [facility] Work Phone: 01-25-2015 influenza, seasonal, injectable Navdeep Ulloa MD Work Phone: [facility] 01-06-2014 influenza, seasonal, injectable Navdeep Ulloa MD Work Phone: [facility] 02-18-2012 zoster vaccine, live Navdeep Ulloa MD Work Phone: [facility] 12-12-2008 influenza virus vacc ine, unspecified formulation Navdeep Ulloa MD Work Phone: [facility] Work Phone: 03-24-2007 tetanus toxoid, redu wing diphtheria toxoid, and acellular pertussis vaccine, adsorbed Navdeep Ulloa MD Work Phone: [facility] Work Phone: Payers Date Payer Category Payer Self-pay 2019 Private Health Insurance [id number] 2019 Unknown HOSPITAL/MEDICAL GENERIC MEDICAL GENERIC [id number] 2019-Present [phone] [address] [address] [place] [address] Indemnity [id number] 2019 Unknown [id number] 2019 Unknown [id number] 2016 Medicare MEDICARE MEDICAR E A AND B [id number] 2016-Present [phone] [address] [address] [place] [address] Medicare [id number] 2016 Medicare [id number] 2016 Medicare [id number] Private Health Insurance [employer] [id number] Unknown [id number] Unknown [id number] Unknown [id number] Unknown [id number] Unknown [id number] Unknown [id number] Social History Date Type Detail Facility Start: 12-26-2011 End: 07-06-2024 Tobacco smoking status MEIS Never smoked tobacco [facility] Work Phone: Start: 02-18-2021 End: 06-09-2024 Alcohol intake Current non-drinker of alcohol (finding) [facility] Start: 03-21-2020 History SDOH Alcohol Frequency 1 [facility] Start: 03-21-2020 History SDOH Social Connections Phone 5 [facility] Start: 03-21-2020 History SDOH Social Connections Pentecostalism 3 [facility] Start: 03-21-2020 History SDOH Physica l Activity MPS 2 [facility] Start: 03-21-2020 Education 16 [facility] Start: 1950 Sex Assigned At Female C [facility] Start: 05-14-2021 End: 08-14-2021 Exposure to SARS-CoV-2 (event) Not sure [facility] Start: 12-26-2011 Tobacco use and exposure Smoke less tobacco non-user [facility] Start: 03-21-2020 End: 06-07-2024 History of Social function [facility] Start: 03-21-2020 End: 06-07-2024 Social connection and isolation panel [facility] Do you belong to any clubs or organizations such as worship groups, unions, fraternal or athletic groups, or school groups? Yes [facility] Are you now , , , , never or living with a partner? [facility] How often to you hav e a drink containing alcohol? Never [facility] Average Number of Drinks Not on file [facility] Do you feel stress - tense, restless, nervous, or anxious, or unable to sleep at night because your mind is troubled all the time - these days [OSQ] To some extent [facility] (I/We) worried wheth er (my/our) food would run out before (I/we) got money to buy more. Never true [facility] In the past 12 month s, was there a time when you were not able to pay the mortgage or rent on time? No [facility] Start: 01-31-2020 Gender identity Identifies as female gender (finding) [facility] How hard is it for y ou to pay for the very basics like food, housing, medical care, and heating Not very hard [facility] Do you feel stress - tense, restless, nervous, or anxious, or unable to sleep at night because your mind is troubled all the time - these days [OSQ] Not at all [facility] Medical Equipment Procedure Code Equipment Code Equipment Origin al Text Equipment Identifier Dates Total cholecystectomy with exploration of common bile duct CLIP,HEMOLOCK MED WECK FDA Start: 09-25-2020 Total cholecystectomy with exploration of common bile duct CLIP,HEMOLOCK MED WECK FDA Start: 09-25-2020 Total cholecystectomy with exploration of common bile duct SURGICEL SNOW ABS 1X2 FDA Start: 09-25-2020 Total cholecystectomy with exploration of common bile duct SURGICEL SNOW ABS 1X2 FDA Start: 09-25-2020 Total cholecystectomy with exploration of common bile duct SURGICEL SNOW ABS 1X2 FDA Start: 09-25-2020 Total cholecystectomy with exploration of common bile duct CLIP,HEMOLOCK MED WECK FDA Start: 09-25-2020 Total cholecystectomy with exploration of common bile duct CLIP,HEMOLOCK MED WECK FDA Start: 09-25-2020 Total cholecystectomy with exploration of common bile duct SURGICEL SNOW ABS 1X2 FDA Start: 09-25-2020 Total cholecystectomy with exploration of common bile duct SURGICEL SNOW ABS 1X2 FDA Start: 09-25-2020 Total cholecystectomy with exploration of common bile duct SURGICEL SNOW ABS 1X2 FDA Start: 09-25-2020 Total cholecystectomy with exploration of common bile duct CLIP,HEMOLOCK MED WECK FDA Start: 09-25-2020 Total cholecystectomy with exploration of common bile duct CLIP,HEMOLOCK MED WECK FDA Start: 09-25-2020 Total cholecystectomy with exploration of common bile duct SURGICEL SNOW ABS 1X2 FDA Start: 09-25-2020 Total cholecystectomy with exploration of common bile duct SURGICEL SNOW ABS 1X2 FDA Start: 09-25-2020 Total cholecystectomy with exploration of common bile duct SURGICEL SNOW ABS 1X2 FDA Start: 09-25-2020 Insert Acetabula r 36mm 0d D Hip X3 Trident Sterile Latex Free - [id number] Start: 06-30-2024 Stem Accolade Ii 5 127d Femoral - [id number] Start: 06-30-2024 Shell Trident Ii 50mm D Tritanium Acetabular 3 Screw Hole Cluster Sterile - [id number] Start: 06-30-2024 Head V40 36mm 0m m Offset Taper Biolox Delta Femoral Hip - [id number] Start: 06-30-2024 Screw Trident Ii 6.5mm 25mm Bone Low Profile Hexagonal Sterile - [id number] Start: 06-30-2024 Goals Date Patient Goal Desired Activity /State Functional Status Date Assessment Result Facility 07-22-2024 Functional status Up ad bhavya;Chair;Bathroom Privilege [facility] Work Phone: 07-06-2024 Are you deaf, or do you have serious difficulty hearing No 07/06/2024 10:33 AM Karen Palumbo, JACOB No [facility] 07-06-2024 Are you blind, or do you have serious difficulty seeing, even when wearing glasses No 07/06/2024 10:33 AM Karen Palumbo, JACOB No [facility] 07-06-2024 Do you have serious difficulty walking or climbing stairs Yes 07/06/2024 10:33 AM Karen Palumbo, JACOB Yes [facility] 07-06-2024 Do you have difficul ty dressing or bathing Yes 07/06/2024 10:33 AM EDKaren Garcia RN Yes [facility] 07-06-2024 Because of a physica l, mental, or emotional condition, do you have difficulty doing errands alone such as visiting a physician's office or shopping Yes 07/06/2024 10:33 AM Karen Palumbo RN Yes [facility] 06-08-2024 Humiliation, Afraid, Rape, and Kick questionnaire [HARK] [facility] 12-29-2016 Are you deaf, or do you have serious difficulty hearing No 12/29/2016 6:32 PM Parth Parra III, MD No [facility] 12-29-2016 Are you blind, or do you have serious difficulty seeing, even when wearing glasses No 12/29/2016 6:32 PM Parth Parra III, MD No [facility] 12-29-2016 Do you have serious difficulty walking or climbing stairs No 12/29/2016 6:32 PM Parth Parra III, MD No [facility] 12-29-2016 Do you have difficul ty dressing or bathing No 12/29/2016 6:32 PM Parth Parra III, MD No [facility] 12-29-2016 Because of a physica l, mental, or emotional condition, do you have difficulty doing errands alone such as visiting a physician's office or shopping No 12/29/2016 6:32 PM Parth Parra III, MD No [facility] Mental Status Date Assessment Result Facility 07-22-2024 Cognitive function Voice/Name [facility] Work Phone: 07-06-2024 Because of a physica l, mental, or emotional condition, do you have serious difficulty concentrating, remembering, or making decisions Yes 07/06/2024 10:33 AM Karen Palumbo RN Yes [facility] 12-29-2016 Because of a physica l, mental, or emotional condition, do you have serious difficulty concentrating, remembering, or making decisions No 12/29/2016 6:32 PM Parth Parra III, MD No [facility] Clinical Notes 08-09-2015 to 08-17-2024 Jamal Gr PA-C - 08/17/2024 11:30 AM EDTTelephone Encounter - Pradip Vizcaino, PT - 08/09/2024 4:11 PM EDTHH PT DISCHARGE - Pradip Vizcaino, PT - 08/09/2024 3:51 PM EDT Note Date & Type Note Facility 08-17-2024 History of Present illness Narrative Post-op Office Visit Azalea Mott 74 year old August 17, 2024 7:53 AM Surgery Date: 06/30/2024 History: Azalea Mott 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 Post-operative course has been without complication. Patient was admitted to TCU for aftercare. Patient had subsequent A-fib with RVR with heart rate in the 160-170 range on July 02. Currenlty on metoprolol and new Eliquis due to afib. Has cardiac follow up set up. Subjective: Patient reports no pain. Overall is doing well. no ambulatory aid no opioid pain medication Patient has significant LE edema worst on the operative side. Reports increasing Lasix to 40mg BID. Has not been elevating very well with only elevation in a recliner. Objective: Ambulates without assistance Incision well-approximated, no drainage, normal lyndsey-incisional erythema Arcs of motion at hip are comfortable and fluid Distally DP/PT palpable Distally S/S/SP/DP/T intact at baseline Distally DF/EHL/PF intact at baseline Negative lillie/calf tenderness 3+ pitting edema to RLE 1+ pitting edema to LLE Xrays: No new today Assessment and Plan: Azalea Mott Is here for a second post-op appointment, overall doing well -continued ice, rest, and use of non-narcotic analgesia as needed -wean off ambulatory aids -discussed home exercises and therapy -WBAT on operative extremity -reinforced posterior precautions through 8 weeks: avoid extremes of flexion, internal rotation, and adduction -will see back in 2 weeks for improvement on swelling. -discussed red flag symptoms of acutely increasing pain, new erythema, new swelling, drainage, shortness of breath -has US set up to rule out DVT -educated on proper elevation, ice, and SHALONDA wrapping for assistance in swelling Jamal Gr PA-C Orthopaedic Surgery documented in this encounter [facility] 08-17-2024 Note HNO ID: [id number] Author: JAMAL GR PA-C Service: ? 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 Post-operative course has been without complication. Patient was admitted to TCU for aftercare. Patient had subsequent A-fib with RVR with heart rate in the 160-170 range on July 02. Currenlty on metoprolol and new Eliquis due to afib. Has cardiac follow up set up. Subjective: Patient reports no pain. Overall is doing well. no ambulatory aid no opioid pain medication Patient has significant LE edema worst on the operative side. Reports increasing Lasix to 40mg BID. Has not been elevating very well with only elevation in a recliner. Objective: Ambulates without assistance Incision well-approximated, no drainage, normal lyndsey-incisional erythema Arcs of motion at hip are comfortable and fluid Distally DP/PT palpable Distally S/S/SP/DP/T intact at baseline Distally DF/EHL/PF intact at baseline Negative lillie/calf tenderness 3+ pitting edema to RLE 1+ pitting edema to LLE Xrays: No new today Assessment and Plan: Azalea Mott Is here for a second post-op appointment, overall doing well -continued ice, rest, and use of non-narcotic analgesia as needed -wean off ambulatory aids -discussed home exercises and therapy -WBAT on operative extremity -reinforced posterior precautions through 8 weeks: avoid extremes of flexion, internal rotation, and adduction -will see back in 2 weeks for improvement on swelling. -discussed red flag symptoms of acutely increasing pain, new erythema, new swelling, drainage, shortness of breath -has US set up to rule out DVT -educated on proper elevation, ice, and SHALONDA wrapping for assistance in swelling Jamal Gr PA-C Orthopaedic Surgery [facility] 08-11-2024 Progress note [facility] 08-09-[address] Zhang Tristan is reporting increased SOB today with activity. Her HR is running in the low 50's and does not elevate with activity . The edema in her feet remains unchanged She does not see the gold assayer until This Please advise Thanks Pradip PT [facility] Work Phone: 08-09-[address] Zhang Tristan is reporting increased SOB today with activity. Her HR is running in the low 50's and does not elevate with activity . The edema in her feet remains unchanged She does not see the gold assayer until This Please advise Thanks Pradip PT documented in this encounter [facility] 08-09-2024 Miscellaneous Notes SITUATION: spouse present during today's visit. patient reports the following since the last homecare visit: medications/allergies--Dr jorden lasmalina x's 14 days , no fall. patient reports she thinks swelling in feet is the same. She reports some SOB today. Feels it may be her afib. Her RHR is 51 at this assessnent. Pt reports that it was low this morning as well. Low HR and well as dypnea reported to MD. She does have appt with cardiology on 08/11. Advised her to avoid strenous acticity as her low HR cannot keep up with a workload. Also advised her to go to the ER if symptoms worsen . Pt verbalizes good understanding BACKGROUND: Diagnoses (reason for Home Care): RTHR Weight Bearing/Precaution Changes: no changes ASSESSMENT: Focus of visit edema in Jaswinder feet has not changed . Instructed patient to continue w/ elevation and AP exercises throughout day . Outdoor ambulation,including steps to exit home at front door, to mailbox and back w/ SC and Sup for safety. Good recall of surgical precautions Physical therapy discharged: goals achieved. Functional performance at discharge - bed mobility independent ( although still sleeping in chair while she still is under precautions ), transfers independent, ambulation independent and stairs independent. Plan of care, goals, and discharge reviewed and agreed upon with patient and/or caregiver. RECOMMENDATION: Patient discharged from home health services. Instructions to include:home exercise program as directed See intervention summary for intervention/education details. documented in this encounter [facility] 08-09-2024 Patient's home Note SITUATION: spouse present during today's visit. patient reports the following since the last homecare visit: medications/allergies--Dr continued lasix x's 14 days , no fall. patient reports she thinks swelling in feet is the same. She reports some SOB today. Feels it may be her afib. Her RHR is 51 at this assessnent. Pt reports that it was low this morning as well. Low HR and well as dypnea reported to MD. She does have appt with cardiology on 08/11. Advised her to avoid strenous acticity as her low HR cannot keep up with a workload. Also advised her to go to the ER if symptoms worsen . Pt verbalizes good understanding BACKGROUND: Diagnoses (reason for Home Care): RTHR Weight Bearing/Precaution Changes: no changes ASSESSMENT: Focus of visit edema in Jaswinder feet has not changed . Instructed patient to continue w/ elevation and AP exercises throughout day . Outdoor ambulation,including steps to exit home at front door, to mailbox and back w/ SC and Sup for safety. Good recall of surgical precautions Physical therapy discharged: goals achieved. Functional performance at discharge - bed mobility independent ( although still sleeping in chair while she still is under precautions ), transfers independent, ambulation independent and stairs independent. Plan of care, goals, and discharge reviewed and agreed upon with patient and/or caregiver. RECOMMENDATION: Patient discharged from home health services. Instructions to include:home exercise program as directed See intervention summary for intervention/education details. [facility] Work Phone: 08-04-2024 Miscellaneous Notes SITUATION: spouse present during today's visit. patient reports the following since the last homecare visit: medications/allergies--Dr continued lasix x's 14 days , no fall. patient reports she thinks swelling in feet is alittle better today. BACKGROUND: Diagnoses (reason for Home Care): RTHR Weight Bearing/Precaution Changes: no changes ASSESSMENT: Focus of visit issued NOMNC. Decreased edema noted in Jaswinder feet today. Instructed patient to continue w/ elevation and AP exercises throughout day . Outddor ambulation,including steps to exit home at front door, to mailbox and back w/ SC and Sup for safety. Good recall of surgical precautions Plan of care, goals, and visit frequency reviewed and agreed upon with patient and/or caregiver. Current Discharge Plan: independent with home exercise program Anticipate discharge by 08/08/24 RECOMMENDATION: Next visit to focus on PT to see for DC See intervention summary for intervention/education details. documented in this encounter [facility] 08-04-2024 Patient's home Note SITUATION: spouse present during today's visit. patient reports the following since the last homecare visit: medications/allergies--Dr continued lasix x's 14 days , no fall. patient reports she thinks swelling in feet is alittle better today. BACKGROUND: Diagnoses (reason for Home Care): RTHR Weight Bearing/Precaution Changes: no changes ASSESSMENT: Focus of visit issued NOMNC. Decreased edema noted in Jaswinder feet today. Instructed patient to continue w/ elevation and AP exercises throughout day . Outddor ambulation,including steps to exit home at front door, to mailbox and back w/ SC and Sup for safety. Good recall of surgical precautions Plan of care, goals, and visit frequency reviewed and agreed upon with patient and/or caregiver. Current Discharge Plan: independent with home exercise program Anticipate discharge by 08/08/24 RECOMMENDATION: Next visit to focus on PT to see for DC See intervention summary for intervention/education details. [facility] Work Phone: 08-03-2024 Telephone encounter Note Patient notified of results and provider's instructions. Patient verbalizes understanding. Chayo Alanis RN [facility] 08-03-2024 Miscellaneous Notes Patient notified of results and provider's instructions. Patient verbalizes understanding. Chayo Alanis RN Call placed to patient with no answer. Message left for patient to return call to triage nurse. Karlee Stinson RN The following approved medication requests have been transmitted electronically. Requested Prescriptions Signed Prescriptions Disp Refills furosemide (LASIX) 40 mg tablet 14 tablet 0 Sig: Take 1 tablet by mouth once daily for 14 days. Authorizing Provider: NAVDEEP ULLOA Discontinue hydrochlorothiazide. Non fasting BMP next week. Navdeep Ulloa MD Patient calls with update since appointment on 07/27/2024. Patient reports that her leg swelling bilateral continues up to her knees with no changes since being on the lasix 40 mg daily. Reports that the tops of her feet might be a little more swollen than previously. Patient asking if provider would want to extend the lasix for additional time. Recommended elevating legs and watching sodium intake. Patient reports that she is as much as possible. Pharmacy is [facility]. Karlee Stinson RN documented in this encounter [facility] 08-03-2024 Telephone encounter Note Call placed to patient with no answer. Message left for patient to return call to triage nurse. Karlee Stinson RN [facility] 08-03-2024 Telephone encounter Note The following approved medication requests have been transmitted electronically. Requested Prescriptions Signed Prescriptions Disp Refills furosemide (LASIX) 40 mg tablet 14 tablet 0 Sig: Take 1 tablet by mouth once daily for 14 days. Authorizing Provider: NAVDEEP ULLOA Discontinue hydrochlorothiazide. Non fasting BMP next week. Navdeep Ulloa MD [facility] 08-02-2024 Telephone encounter Note I saw patient for PT visit today. She completed her 7 days of lasix today but continues to have 2+pitting edema in Jaswinder feet/ankles. Vitals today: BP: 110/60 HR 66 PO2 99 Resp 18 No SOB reported or noted. Patient is planning on calling your office to discuss. Thanks [facility] Work Phone: 08-02-2024 Miscellaneous Notes I saw patient for PT visit today. She completed her 7 days of lasix today but continues to have 2+pitting edema in Jaswinder feet/ankles. Vitals today: BP: 110/60 HR 66 PO2 99 Resp 18 No SOB reported or noted. Patient is planning on calling your office to discuss. Thanks documented in this encounter [facility] 08-02-2024 Telephone encounter Note Patient calls with update since appointment on 07/27/2024. Patient reports that her leg swelling bilateral continues up to her knees with no changes since being on the lasix 40 mg daily. Reports that the tops of her feet might be a little more swollen than previously. Patient asking if provider would want to extend the lasix for additional time. Recommended elevating legs and watching sodium intake. Patient reports that she is as much as possible. Pharmacy is [facility]. Karlee Stinson, RN [facility] 08-02-2024 Miscellaneous Notes SITUATION: spouse present during today's visit. patient reports the following since the last homecare visit: medications/allergies--no changes, no fall. patient reports she has been walking around house w/o cane and used cane when she went to worship over the weekend. . States she is planning to call Dr today to report no change in swelling in feet w/ taking lasix BACKGROUND: Diagnoses (reason for Home Care): RTHR Weight Bearing/Precaution Changes: posterior ASSESSMENT: Focus of visit patient has edema noted in Jaswinder feet/ankles which has not changed since being on lasix. States she took last lasix today and has not noticed any change in swelling in feet. Discussed importance of BLE elevation, ankle pumps, and watching salt intake. Encouraged patient to call Dr to report, sent message to Navdeep Ulloa MD to report of edema and todays vitals . Patient denies SOB and did not shows any s/s of distress w/ exercises. Able to progress standing exercises and increase ambulation distances including outdoors. Plan of care, goals, and visit frequency reviewed and agreed upon with patient and/or caregiver. Current Discharge Plan: independent with home exercise program Anticipate discharge by 08/08/24 RECOMMENDATION: Next visit to focus on monitor edema, NOMNC See intervention summary for intervention/education details. documented in this encounter [facility] 08-02-2024 Patient's home Note SITUATION: spouse present during today's visit. patient reports the following since the last homecare visit: medications/allergies--no changes, no fall. patient reports she has been walking around house w/o cane and used cane when she went to worship over the weekend. . States she is planning to call Dr today to report no change in swelling in feet w/ taking lasix BACKGROUND: Diagnoses (reason for Home Care): RTHR Weight Bearing/Precaution Changes: posterior ASSESSMENT: Focus of visit patient has edema noted in Jaswinder feet/ankles which has not changed since being on lasix. States she took last lasix today and has not noticed any change in swelling in feet. Discussed importance of BLE elevation, ankle pumps, and watching salt intake. Encouraged patient to call Dr to report, sent message to Navdeep Ulloa MD to report of edema and todays vitals . Patient denies SOB and did not shows any s/s of distress w/ exercises. Able to progress standing exercises and increase ambulation distances including outdoors. Plan of care, goals, and visit frequency reviewed and agreed upon with patient and/or caregiver. Current Discharge Plan: independent with home exercise program Anticipate discharge by 08/08/24 RECOMMENDATION: Next visit to focus on monitor edema, NOMNC See intervention summary for intervention/education details. [facility] Work Phone: 07-27-2024 Note HNO ID: [id number] Author: NAVDEEP ULLOA MD Service: ? Author Type: Physician Type: Progress Notes Filed: 07/27/2024 13:25 Note Text: This note was created using Snapcious. Subjective Patient presents with: Transition Of Care Transitional Care Management Progress Note The patients TCM visit was performed within the 7 days of discharge. Patient's Date of discharge: 07/21/2024 Date of initial coordinator contact after discharge: 07/25/2024 Discharge diagnosis: s/p right total hip replacement, atrial fibrillation, SIOBHAN on CPAP, CKD, hypertension, anemia. Medication review completed Yes Recording using Encentuate software for draft documentation of the visit was discussed with the patient/authorized sales representative uniforms; all questions welcomed and answered. Patient/authorized sales representative uniforms agreed to proceed In follow-up of hospitalization, Azalea Mott is a 74 year old female with the chief complaint of transition of care. I have reviewed the patient?s last hospital course including diagnostic testing performed during this hospitalization, their discharge medications, and my assessment and plan with the patient and any family members present at today?s visit. Azalea is a 74-year-old female, with a history of atrial fibrillation and anemia, presenting for follow-up after a recent hospitalization for a right total hip arthroplasty. She was admitted 06/30 to 07/06/24 for total hip replacement, right. She was also treated for recent onset atrial fibrillation, CKD, urine retention, and postoperative anemia. Azalea was discharged to [facility], where she stayed until discharge home 07/21/24. She reports that her recovery from the right total hip arthroplasty is progressing well, with no significant concerns. She notes that the surgical incision is healing properly, and she has a follow-up appointment with Dr. Gibbons on the . She denies fever, cephalalgia, dizziness, chest pain, palpitations, hematochezia, or melena. She reports bilateral pedal edema, which worsens by the evening, causing discomfort due to the skin feeling overly stretched. She has been advised to keep her feet elevated but finds it challenging due to the need for ambulation. She denies previous use of furosemide. Azalea was diagnosed with atrial fibrillation during her preoperative evaluation, for which she is currently taking Eliquis, diltiazem once daily, and metoprolol 100 mg BID. She has a scheduled appointment with Dr. Jara on August 11 for further cardiac evaluation. She denies experiencing any symptoms typically associated with atrial fibrillation. She is also taking iron supplements for anemia, which was monitored during her hospital stay, with recent blood work showing improvement. She denies current use of elderberry, Milk of Magnesia, pantoprazole, or turmeric. She plans to resume biotin supplementation for hair, skin, and nails after her current medical issues are resolved. She has discontinued oxycodone use since returning home. Review of Systems Constitutional: (-) fever Head: (-) headache Cardiovascular: (+) bilateral foot swelling, (-) chest pain, (-) palpitations Gastrointestinal: (-) GI bleeding, (-) blood in stool Neurological: (-) dizziness ACTIVE PROBLEM LIST Hearing Loss in Left Ear Primary Osteoarthritis of Right Hip Hyperlipidemia Ldl Goal <100 Hypertension, Essential Siobhan On Cpap Obesity, Class I, Bmi 30-34.9 Chronic Kidney Insufficiency, Stage 3 (Moderate) (Hcc) Impaired Fasting Glucose Venous Insufficiency Atrial Flutter (Hcc) Heart Valve Disease Mild Pulmonary Hypertension (Hcc) S/P Total Right Hip Arthroplasty Other Specified Postprocedural States Current Outpatient Medications Medication Sig MULTIVITAMIN ORAL Take 1 tablet by mouth once daily. hydroCHLOROthiazide 25 mg tablet Take 25 mg by mouth once daily. ascorbic acid, vitamin C, (VITAMIN C) 500 mg tablet Take 1 tablet by mouth two times a day with meals for 19 doses. acetaminophen (TYLENOL) 500 mg tablet Take 2 tablets by mouth every 8 hours as needed for pain. dilTIAZem CD (CARDIZEM CD, CARTIA XT) 300 mg 24 hr capsule Take 1 capsule by mouth once daily. Patient should start on July 06, 2024. docusate sodium (COLACE) 100 mg capsule Take 1 capsule by mouth two times a day as needed for constipation. apixaban (ELIQUIS) 5 mg tab(s) Take 1 tablet by mouth two times a day. atorvastatin (LIPITOR) 10 mg tablet Take 1 tablet by mouth daily at bedtime. For cholesterol. CPAP CPAP Supplies, All Necessary equipment including tubing and full mask ICD G47.33 HAIR, SKIN AND NAILS, BIOTIN, ORAL Take 2 tablets by mouth once daily. CPAP 30 day download for And please send chin strap Auto PAP @ 5-20 cm of water with humidification. Mask (per patient preference) optional chin strap (if indicated) , filters, tubing, humidifier and lifetime supplies. ferrous sulfate 325 mg (65 mg iron) ta (more content not included)... [facility] 07-27-2024 Note HNO ID: [id number] Author: NEETA MILES LPN Service: ? Author Type: LICENSED NURSE Type: Progress Notes Filed: 07/27/2024 13:25 Note Text: Patient Outreach 07/25/2024 Teacher Associate Management Wanda Costa, innersole maker Transition Of Care Reason for Visit Progress Notes Wanda Costa RN (Registered Nurse) Internal Medicine Transition Care Management (TCM) Initial Outreach PCP Update / Actionable Items [facility] Home [facility] Referral Source of Stratification: [facility] Hospital Admission Status: Discharged Readmission Risk Score: N/A Patient's zip code: [address] Is zip code within program service area: No Patient Source: [facility] (OON) Discharge Outreach Summary: Spoke with patient. Doing better. No pain. Already had follow up with physical therapy and told should be walking with cane before week is out. Using walker for now. Told OT not needed. Denies fever, shortness of breath or chest pain No n/v Voiding. Moved bowels. No questions about medications, discharge orders or follow up Has PCP follow up 07-27-24 Denies need for further TCM calls or follow up. Verbalizing understanding to call provider or Healthy at Home number as needed with any further questions or concerns or changes in current status. Patient [facility] Discharge date: 07-22-24 Admitted for: Total right hip replacement Readmission Risk: N/A Value-Based Contract: ACO Contact: Contact made with patient: Yes Hi, my name is Wanda Costa RN and I am calling from the [facility] on behalf of your Primary Care Provider, Navdeep Ulloa MD. I understand you were recently in the hospital, so I am calling to check in with you to ensure you are feeling well now that you are home. May I ask you a few questions related to your hospital stay and well-being? Yes Spoke to: Patient Validation: Validated the person spoken to is actively involved in the patient's care. The patient was identified by Name and Date of . Symptoms: Are you feeling about the same, better or worse since leaving the hospital? Better Medications: Do you have any questions about taking your medications, including which medications you should be on, or do you need refills on your medications? No Medication Review: Declined at this time per patient preference Discharge Instructions: Your Discharge Instructions / After Visit Summary (AVS) are important in guiding you through the recovery process. Do you have any questions related to your discharge instructions? No Home Care: Were you discharged with home care? Yes Has your Home Care Agency contacted you? Yes Name of Home Care Agency: [facility] Phone number, if available: [phone] Start of Home Care services date: 07-23-24 Home care services included: Physical / Occupational Therapy Equipment: Do you have all the necessary equipment and supplies needed at your home? Yes The patient verbalizes understanding the use of the equipment and supplies Social: Your mental health is as important to us as your physical health. Would you mind answering a few questions on this topic? Yes On the Storyboard review: Food Insecurity, Transportation, Depression, Housing, and Financial Strain: Complete any SDOHs, listed above, if not addressed in the past 3 months. If all SDOHs, listed above, have been addressed within the last 3 months, confirm responses and update any SDOHs that have changed. Action Taken: No needs verbalized. No action required. Follow-Up Appointment: [Appointment / TCM Follow-up within 14 days] I would like to help you schedule a hospital follow-up virtual or telephone visit with your PCP. This is a great way for you to connect with your provider to ensure you have safely transitioned home. If you are agreeable, I will send your request to a ux design lead who will contact and assist you with that appointment. This will give you an opportunity to ask any questions or address any concerns you may have with your PCP. Inform the patient that if they have any questions or concerns prior to that appointment, to call their PCP's office right away. Appointment Action: No action required; patient already has appointment scheduled. Education details: Patient and family educated on issues/questions related to reason for admission, transition of care topics, and follow-up needed upon discharge. Wanda Costa RN July 25, 2024 12:07 PM Note Details Additional Documentation Encounter Info: Billing Info, History, Allergies, Detailed Report, Procedural Documentation Pharmacy Benefits Open Encounter MOTT, 2024 [employer] Retail Super ID ([employer]) Covered: Retail, Mail Order Unknown: Specialty, Long-Term Care BIN: [id number] : 1950 Group ID: [id number] PCN: [id number] Legal sex: F Group name: MARLON [id number] PDP [id number] Address: [address] [place] [address] (more content not included)... [facility] 07-25-2024 Miscellaneous Notes Medication review completed. No ineffective drug therapy, significant side effects, significant drug interactions, duplicate drug therapy, or noncompliance with drug therapy noted. SOC clinician reported the following Patient taking the following medications hydroCHLOROthiazide 25 mg tablet oxyCODONE IR (ROXICODONE) 5 mg Patient is not currently taking Black Cohosh, Elderbery, Fiber cap, Hair, skin and nails, or Turmeric. Patient is not taking docusate sodium, Magnesium Hydroxide, or Pantoprazole. Indira Mendez RN documented in this encounter [facility] 07-25-2024 Patient's home Note Medication review completed. No ineffective drug therapy, significant side effects, significant drug interactions, duplicate drug therapy, or noncompliance with drug therapy noted. SOC clinician reported the following Patient taking the following medications hydroCHLOROthiazide 25 mg tablet oxyCODONE IR (ROXICODONE) 5 mg Patient is not currently taking Black Cohosh, Elderbery, Fiber cap, Hair, skin and nails, or Turmeric. Patient is not taking docusate sodium, Magnesium Hydroxide, or Pantoprazole. Indira Mendez RN [facility] Work Phone: 07-25-2024 Note HNO ID: [id number] Author: WANDA COSTA RN Service: ? Author Type: Registered Nurse Type: Progress Notes Filed: 07/25/2024 12:16 Note Text: Transition Care Management (TCM) Initial Outreach PCP Update / Actionable Items [facility] T[facility] Home Visit Referral Source of Stratification: [facility] Hospital Admission Status: Discharged Readmission Risk Score: N/A Patient's zip code: [address] Is zip code within program service area: No Patient Source: [facility] (OON) Discharge Outreach Summary: Spoke with patient. Doing better. No pain. Already had follow up with physical therapy and told should be walking with cane before week is out. Using walker for now. Told OT not needed. Denies fever, shortness of breath or chest pain No n/v Voiding. Moved bowels. No questions about medications, discharge orders or follow up Has PCP follow up 07-27-24 Denies need for further TCM calls or follow up. Verbalizing understanding to call provider or Healthy at Home number as needed with any further questions or concerns or changes in current status. Patient discharged from [facility] Discharge date: 07-22-24 Admitted for: Total right hip replacement Readmission Risk: N/A Value-Based Contract: ACO Contact: Contact made with patient: Yes Hi, my name is Wanda Costa RN and I am calling from the [facility] on behalf of your Primary Care Provider, Navdeep Ulloa MD. I understand you were recently in the hospital, so I am calling to check in with you to ensure you are feeling well now that you are home. May I ask you a few questions related to your hospital stay and well-being? Yes Spoke to: Patient Validation: Validated the person spoken to is actively involved in the patient's care. The patient was identified by Name and Date of . Symptoms: Are you feeling about the same, better or worse since leaving the hospital? Better Medications: Do you have any questions about taking your medications, including which medications you should be on, or do you need refills on your medications? No Medication Review: Declined at this time per patient preference Discharge Instructions: Your Discharge Instructions / After Visit Summary (AVS) are important in guiding you through the recovery process. Do you have any questions related to your discharge instructions? No Home Care: Were you discharged with home care? Yes Has your Home Care Agency contacted you? Yes Name of Home Care Agency: [facility] Phone number, if available: [phone] Start of Home Care services date: 07-23-24 Home care services included: Physical / Occupational Therapy Equipment: Do you have all the necessary equipment and supplies needed at your home? Yes The patient verbalizes understanding the use of the equipment and supplies Social: Your mental health is as important to us as your physical health. Would you mind answering a few questions on this topic? Yes On the Storyboard review: Food Insecurity, Transportation, Depression, Housing, and Financial Strain: Complete any SDOHs, listed above, if not addressed in the past 3 months. If all SDOHs, listed above, have been addressed within the last 3 months, confirm responses and update any SDOHs that have changed. Action Taken: No needs verbalized. No action required. Follow-Up Appointment: [Appointment / TCM Follow-up within 14 days] I would like to help you schedule a hospital follow-up virtual or telephone visit with your PCP. This is a great way for you to connect with your provider to ensure you have safely transitioned home. If you are agreeable, I will send your request to a ux design lead who will contact and assist you with that appointment. This will give you an opportunity to ask any questions or address any concerns you may have with your PCP. Inform the patient that if they have any questions or concerns prior to that appointment, to call their PCP's office right away. Appointment Action: No action required; patient already has appointment scheduled. Education details: Patient and family educated on issues/questions related to reason for admission, transition of care topics, and follow-up needed upon discharge. Wanda Costa RN July 25, 2024 12:07 PM [facility] 07-25-2024 History of Present illness Narrative Transition Care Management (TCM) Initial Outreach PCP Update / Actionable Items [facility] TCM Home Visit Referral Source of Stratification: [facility] Hospital Admission Status: Discharged Readmission Risk Score: N/A Patient's zip code: [address] Is zip code within program service area: No Patient Source: [facility] (OON) Discharge Outreach Summary: Spoke with patient. Doing better. No pain. Already had follow up with physical therapy and told should be walking with cane before week is out. Using walker for now. Told OT not needed. Denies fever, shortness of breath or chest pain No n/v Voiding. Moved bowels. No questions about medications, discharge orders or follow up Has PCP follow up 07-27-24 Denies need for further TCM calls or follow up. Verbalizing understanding to call provider or Healthy at Home number as needed with any further questions or concerns or changes in current status. Patient discharged from [facility] Discharge date: 07-22-24 Admitted for: Total right hip replacement Readmission Risk: N/A Value-Based Contract: ACO Contact: Contact made with patient: Yes Hi, my name is Wanda Costa RN and I am calling from the [facility] on behalf of your Primary Care Provider, Navdeep Ulloa MD. I understand you were recently in the hospital, so I am calling to check in with you to ensure you are feeling well now that you are home. May I ask you a few questions related to your hospital stay and well-being? Yes Spoke to: Patient Validation: Validated the person spoken to is actively involved in the patient's care. The patient was identified by Name and Date of . Symptoms: Are you feeling about the same, better or worse since leaving the hospital? Better Medications: Do you have any questions about taking your medications, including which medications you should be on, or do you need refills on your medications? No Medication Review: Declined at this time per patient preference Discharge Instructions: Your Discharge Instructions / After Visit Summary (AVS) are important in guiding you through the recovery process. Do you have any questions related to your discharge instructions? No Home Care: Were you discharged with home care? Yes Has your Home Care Agency contacted you? Yes Name of Home Care Agency: [facility] Phone number, if available: [phone] Start of Home Care services date: 07-23-24 Home care services included: Physical / Occupational Therapy Equipment: Do you have all the necessary equipment and supplies needed at your home? Yes The patient verbalizes understanding the use of the equipment and supplies Social: Your mental health is as important to us as your physical health. Would you mind answering a few questions on this topic? Yes On the Storyboard review: Food Insecurity, Transportation, Depression, Housing, and Financial Strain: Complete any SDOHs, listed above, if not addressed in the past 3 months. If all SDOHs, listed above, have been addressed within the last 3 months, confirm responses and update any SDOHs that have changed. Action Taken: No needs verbalized. No action required. Follow-Up Appointment: [Appointment / TCM Follow-up within 14 days] I would like to help you schedule a hospital follow-up virtual or telephone visit with your PCP. This is a great way for you to connect with your provider to ensure you have safely transitioned home. If you are agreeable, I will send your request to a ux design lead who will contact and assist you with that appointment. This will give you an opportunity to ask any questions or address any concerns you may have with your PCP. Inform the patient that if they have any questions or concerns prior to that appointment, to call their PCP's office right away. Appointment Action: No action required; patient already has appointment scheduled. Education details: Patient and family educated on issues/questions related to reason for admission, transition of care topics, and follow-up needed upon discharge. Wanda Costa RN July 25, 2024 12:07 PM documented in this encounter [facility] 07-25-2024 Miscellaneous Notes SITUATION: Pt seated in recliner upon arrival in no apparent distress. spouse present during today's visit. patient reports the following since the last homecare visit: medications/allergies--no changes, no fall. BACKGROUND: Diagnoses or reason for home care: TCU admission to [facility] on 07/06/24 - 07/22/24. Disciplines ordered: PT and OT Primary Diagnoses (reason for Home Care): Aftercare following joint replacement surgery S/P Right SYLVESTER on 06/30/[address] Gibbons Any one of the comorbidities from the list below may have a deleterious effect on the primary home care diagnosis. ACTIVE PROBLEM LIST Hearing Loss in Left Ear Primary Osteoarthritis of Right Hip Hyperlipidemia Ldl Goal <100 Hypertension, Essential Siobhan On Cpap Obesity, Class I, Bmi 30-34.9 Chronic Kidney Insufficiency, Stage 3 (Moderate) ([facility]) Impaired Fasting Glucose Venous Insufficiency Atrial Flutter (Hcc) Heart Valve Disease Other Specified Postprocedural States SPECIFIC ORDERS: - Precautions/Activity Restrictions: Right SYLVESTER Advance Directives: Patient does have advance directives. ASSESSMENT: Patient evaluated by [facility] occupational therapy. Reviewed and explained homecare services. Plan of care, goals and visit frequency developed, reviewed, and agreed upon with patient and/or caregiver. Patient identified goals: To get back to what I was doing before. Pt scored 90/100 on the Modified Rory Index, indicating a high level of Indep with ADL. She is Indep with ADL, light IADL, and bathroom transfers. She is Indep with use of AE/DME and is able to state and maintain 3/3 TH precautions. No further skilled OT needs at this time. Current Discharge Plan:remain in community with/without caregiver support. Anticipate discharge by 07/25/24 RECOMMENDATION: Plan for next visit to focus on N/a - 1 time eval only. See intervention summary for intervention/education details. documented in this encounter [facility] 07-25-2024 Patient's home Note SITUATION: Pt seated in recliner upon arrival in no apparent distress. spouse present during today's visit. patient reports the following since the last homecare visit: medications/allergies--no changes, no fall. BACKGROUND: Diagnoses or reason for home care: TCU admission to [facility] on 07/06/24 - 07/22/24. Disciplines ordered: PT and OT Primary Diagnoses (reason for Home Care): Aftercare following joint replacement surgery S/P Right SYLVESTER on 06/30/[address] Gibbons Any one of the comorbidities from the list below may have a deleterious effect on the primary home care diagnosis. ACTIVE PROBLEM LIST Hearing Loss in Left Ear Primary Osteoarthritis of Right Hip Hyperlipidemia Ldl Goal <100 Hypertension, Essential Siobhan On Cpap Obesity, Class I, Bmi 30-34.9 Chronic Kidney Insufficiency, Stage 3 (Moderate) (Hcc) Impaired Fasting Glucose Venous Insufficiency Atrial Flutter (Hcc) Heart Valve Disease Other Specified Postprocedural States SPECIFIC ORDERS: - Precautions/Activity Restrictions: Right SYLVESTER Advance Directives: Patient does have advance directives. ASSESSMENT: Patient evaluated by [facility] occupational therapy. Reviewed and explained homecare services. Plan of care, goals and visit frequency developed, reviewed, and agreed upon with patient and/or caregiver. Patient identified goals: To get back to what I was doing before. Pt scored 90/100 on the Modified Rory Index, indicating a high level of Indep with ADL. She is Indep with ADL, light IADL, and bathroom transfers. She is Indep with use of AE/DME and is able to state and maintain 3/3 TH precautions. No further skilled OT needs at this time. Current Discharge Plan:remain in community with/without caregiver support. Anticipate discharge by 07/25/24 RECOMMENDATION: Plan for next visit to focus on N/a - 1 time eval only. See intervention summary for intervention/education details. [facility] Work Phone: 07-25-2024 Note Patient Outreach ([facility]) AZALEA MOTT ([id number]) 1950 F Date Time Provider Department 07/25/24 WANDA COSTA During your visit today, we recorded the following information about you: Wanda Costa RN 07/25/2024 12:16 PM Signed Transition Care Management (TCM) Initial Outreach PCP Update / Actionable Items [facility] Home Visit Referral Source of Stratification: [facility]CM [facility] Hospital Admission Status: Discharged Readmission Risk Score: N/A Patient's zip code: [address] Is zip code within program service area: No Patient Source: [facility] (OON) Discharge Outreach Summary: Spoke with patient. Doing better. No pain. Already had follow up with physical therapy and told should be walking with cane before week is out. Using walker for now. Told OT not needed. Denies fever, shortness of breath or chest pain No n/v Voiding. Moved bowels. No questions about medications, discharge orders or follow up Has PCP follow up 07-27-24 Denies need for further TCM calls or follow up. Verbalizing understanding to call provider or Healthy at Home number as needed with any further questions or concerns or changes in current status. Patient discharged from [facility] Discharge date: 07-22-24 Admitted for: Total right hip replacement Readmission Risk: N/A Value-Based Contract: ACO Contact: Contact made with patient: Yes Hi, my name is Wanda Costa RN and I am calling from the [facility] on behalf of your Primary Care Provider, Navdeep Ulloa MD. I understand you were recently in the hospital, so I am calling to check in with you to ensure you are feeling well now that you are home. May I ask you a few questions related to your hospital stay and well-being? Yes Spoke to: Patient Validation: Validated the person spoken to is actively involved in the patient's care. The patient was identified by Name and Date of . Symptoms: Are you feeling about the same, better or worse since leaving the hospital? Better Medications: Do you have any questions about taking your medications, including which medications you should be on, or do you need refills on your medications? No Medication Review: Declined at this time per patient preference Discharge Instructions: Your Discharge Instructions / After Visit Summary (AVS) are important in guiding you through the recovery process. Do you have any questions related to your discharge instructions? No Home Care: Were you discharged with home care? Yes Has your Home Care Agency contacted you? Yes Name of Home Care Agency: [facility] Phone number, if available: [phone] Start of Home Care services date: 07-23-24 Home care services included: Physical / Occupational Therapy Equipment: Do you have all the necessary equipment and supplies needed at your home? Yes The patient verbalizes understanding the use of the equipment and supplies Social: Your mental health is as important to us as your physical health. Would you mind answering a few questions on this topic? Yes On the Storyboard review: Food Insecurity, Transportation, Depression, Housing, and Financial Strain: Complete any SDOHs, listed above, if not addressed in the past 3 months. If all SDOHs, listed above, have been addressed within the last 3 months, confirm responses and update any SDOHs that have changed. Action Taken: No needs verbalized. No action required. Follow-Up Appointment: [Appointment / TCM Follow-up within 14 days] I would like to help you schedule a hospital follow-up virtual or telephone visit with your PCP. This is a great way for you to connect with your provider to ensure you have safely transitioned home. If you are agreeable, I will send your request to a ux design lead who will contact and assist you with that appointment. This will give you an opportunity to ask any questions or address any concerns you may have with your PCP. Inform the patient that if they have any questions or concerns prior to that appointment, to call their PCP's office right away. Appointment Action: No action required; patient already has appointment scheduled. Education details: Patient and family educated on issues/questions related to reason for admission, transition of care topics, and follow-up needed upon discharge. Wanda Costa RN July 25, 2024 12:07 PM Allergies As of Date: 07/25/2024 Noted Allergy Reaction NORCO (HYDROCODONE-ACETAMINOPHEN) 10/24/2020 14 - Other: See Comments Comments: Weird dreams. Date Reviewed: 07/20/2024 Reviewed by: Frida Bourgeois LPN - Fully Assessed Reason for Visit: Transition Of Care [4074] Cmt: [facility] hospital discharge 07-22-24- Initial outreach Prescriptions as of 07/25/2024 - hydroCHLOROthiazide 25 mg tablet Take 25 mg by mouth once daily. - oxyCODONE IR (ROXICODONE) 5 mg immediate release tablet (more content not included)... [facility] 07-23-2024 Miscellaneous Notes SITUATION: spouse present during today's visit. patient reports she is feeling overall well today and states she is prepared for P.T. visit. BACKGROUND: Diagnoses (reason for Home Care): Aftercare following joint replacement surgery S/P Right SYLVESTER on 06/30/[address] Gibbons Advance Directives: Patient does have advance directives. Past Medical History: Hearing Loss in Left Ear Primary Osteoarthritis of Right Hip Hyperlipidemia Ldl Goal <100 Hypertension, Essential Siobhan On Cpap Obesity, Class I, Bmi 30-34.9 Chronic Kidney Insufficiency, Stage 3 (Moderate) ([facility]) Impaired Fasting Glucose Venous Insufficiency Atrial Flutter (Hcc) Heart Valve Disease Other Specified Postprocedural States Weight Bearing or Surgical Precautions: WBAT on operative extremity -reinforced posterior precautions through 8 weeks: avoid extremes of flexion, internal rotation, and adduction ASSESSMENT: Patient evaluated by [facility] physical therapy. Reviewed and explained homecare services. Plan of care, goals, and visit frequency developed, reviewed, and agreed upon with patient and/or caregiver. Patient reports she was being treated for potential skin breakdown on her coccyx and was provided a barrier cream. P.T. inspected this date and noted no redness however patient is to continue to use barrier cream and increase mobility. Patient Goal: improve mobility Patient will benefit from continued physical therapy to address the following deficits: strength, balance, gait, endurance, transfers and bed mobility. Current Discharge Plan: independent with home exercise program. Anticipate discharge by 08/13/24. RECOMMENDATION: Next visit to focus on transfers, ambulation, progress HEP, monitor skin breakdown Agreeable to PT and OT See intervention summary for intervention/education details. documented in this encounter [facility] 07-23-2024 Patient's home Note SITUATION: spouse present during today's visit. patient reports she is feeling overall well today and states she is prepared for P.T. visit. BACKGROUND: Diagnoses (reason for Home Care): Aftercare following joint replacement surgery S/P Right SYLVESTER on 06/30/[address] Gibbons Advance Directives: Patient does have advance directives. Past Medical History: Hearing Loss in Left Ear Primary Osteoarthritis of Right Hip Hyperlipidemia Ldl Goal <100 Hypertension, Essential Siobhan On Cpap Obesity, Class I, Bmi 30-34.9 Chronic Kidney Insufficiency, Stage 3 (Moderate) (Hcc) Impaired Fasting Glucose Venous Insufficiency Atrial Flutter (Hcc) Heart Valve Disease Other Specified Postprocedural States Weight Bearing or Surgical Precautions: WBAT on operative extremity -reinforced posterior precautions through 8 weeks: avoid extremes of flexion, internal rotation, and adduction ASSESSMENT: Patient evaluated by [facility] physical therapy. Reviewed and explained homecare services. Plan of care, goals, and visit frequency developed, reviewed, and agreed upon with patient and/or caregiver. Patient reports she was being treated for potential skin breakdown on her coccyx and was provided a barrier cream. P.T. inspected this date and noted no redness however patient is to continue to use barrier cream and increase mobility. Patient Goal: improve mobility Patient will benefit from continued physical therapy to address the following deficits: strength, balance, gait, endurance, transfers and bed mobility. Current Discharge Plan: independent with home exercise program. Anticipate discharge by 08/13/24. RECOMMENDATION: Next visit to focus on transfers, ambulation, progress HEP, monitor skin breakdown Agreeable to PT and OT See intervention summary for intervention/education details. [facility] Work Phone: 07-21-2024 Discharge summary Note Date/Time July 21, 2024 8:37p [facility] Medical Records Department [address] [place] [id number] Discharge Summary 07/21/242029 MR#: [id number] Acct: [id number] Name: AZALEA MOTT Rep #:[id number] 1 : 1950 74 From: New Bear MD PCP: Dr. Navdeep Ulloa MD Status:A DM IN Location: [place] [id number]- Providers Date of Admission: 07/06/24 Primary Care Physician: Dr. Navdeep Ulloa MD Reason For Visit: R TOTAL HIP ARTHROPLASTY Diagnosis Discharge Diagnosis (1) Debility: Status: Acute Code(s): R53.81 - Other malaise (2) Status post total hip replacement, right: Status: Acute Code(s): Z96.641 - Presence of right artificial hip joint (3) Atrial fibrillation with RVR: Status: Acute Code(s): I48.91 - Unspecified atrial fibrillation (4) Essential (primary) hypertension: Status: Acute Code(s): I10 - Essential (primary) hypertension (5) Obstructive sleep apnea: Status: Acute Code(s): G47.33 - Obstructive sleep apnea (adult) (pediatric) (6) Obesity: Status: Acute Code(s): E66.9 - Obesity, unspecified (7) Iron deficiency anemia: Status: Acute Code(s): D50.9 - Iron deficiency anemia, unspecified (8) Chronic kidney disease, stage 3a: Status: Chronic Code(s): N18.31 - Chronic kidney disease, stage 3a (9) Hyperlipidemia, unspecified: Status: Acute Code(s): E78.5 - Hyperlipidemia, unspecified (10) Venous insufficiency: Status: Acute Code(s): I87.2 - Venous insufficiency (chronic) (peripheral) Plan 74 year old female with below past medical history underwent right total hip arthroplasty 06/30/[address] Gibbons ([facility]), postoperative course complicated by atrial fibrillation with RVR, admitted to TCU with debility, here for rehabilitation, strengthening, prior to discharge home with . * Debility - PT/OT. * Pain - Tylenol 1000mg q8, Oxycodone 5-10mg q4 prn pain (6-10). * Bowel - Miralax 17gm daily, senna/colace 2 tablets bid, Magnesium citrate 300mL po x 1 dose, then daily prn. * Adult immunization - Administer pneumonia vaccine, covid vaccine, flu vaccine as appropriate. * DVT prophylaxis - Eliquis. * Atrial fibrillation - Metoprolol succinate 100mg daily, Diltiazem CD 300mg daily, Eliquis 5mg bid, Schedule office appointment with Dr. Andino or Vj Gonzalez for consultation. * Iron deficiency anemia - Ferrous sulfate 650mg daily, Vitamin C 500mg bid thru 07/25/2024. * Hyperlipidemia - Atorvastatin 10mg qhs. * Infection prophylaxis - Cefadroxil 500mg q12 thru 07/20/2024. * Vitamin D deficiency - D3 50mcg daily. * Rash - HC 2.5% topical bid thru 07/11/2024. * Nutrition - MVI 1 tablet daily. * GERD - Pantoprazole 40mg daily. Medications at Discharge Home Medications calcium 600 mg (as carbonate)-vitamin D3 5 mcg (200 unit) tablet 1 tab PO BID supplement 09/24/20 cholecalciferol (vitamin D3) 50 mcg (2,000 unit) capsule (Vitamin D3) 2,000 unitPO DAILY supplement 09/24/20 fiber 3 cap PO DAILY supplement 09/24/20 atorvastatin 10 mg tablet 10 mg PO QHS cholesterol 07/06/24 multivitamin (Daily Multi-Vitamin tablet) 1 tab PO DAILY Supplement 07/06/24 acetaminophen 500 mg tablet 1,000 mg (2 x 500 mg) PO Q8 #0 tabs 07/21/24 apixaban 5 mg tablet (Eliquis) 5 mg PO BID 30 days #60 tabs 07/21/24 diltiazem HCl 300 mg capsule,extended release 24 hr 300 mg PO DAILY 30 days #30 caps 07/21/24 hydrochlorothiazide 25 mg tablet 25 mg PO DAILY 30 days #30 tabs 07/21/24 metoprolol succinate 100 mg tablet,extended release 24 hr 100 mg PO BID 30 days #60 tabs 07/21/24 oxycodone 5 mg tablet 5 - 10 mg (1 - 2 x 5 mg) PO Q4H PRN PRN Pain Score 6-10 OrPre Pt/Ot 7 days #42 tabs 07/21/24 sennosides 8.6 mg-docusate sodium 50 mg tablet (Stimulant Laxative Plus) 2 tab PO BID 30 days #120 tabs 07/21/24 Hospital Course Operations total hip replacement (Right.) Procedures None Summary of Care Provided Minutes Spent on Discharge: 35 Hospital Course: 74 year old female with below past medical history underwent right total hip arthroplasty 06/30/[address] Gibbons ([facility]), postoperative course complicated by atrial fibrillation with RVR, admitted to TCU with debility, here for rehabilitation, strengthening, prior to discharge home with . Discharge home with 07/22/2024, [facility] PT/OT. Physical Exam Const alert General Appearance: cooperative HEENT normocephalic Eyes PERRL and EOMs intact bilaterally Neck supple, no JVD and no carotid bruits Resp normal respiratory effort, normal air movement and clear to auscultation bilaterally Cardio regular rate and regular rhythm GI normal to inspection, nondistended, normoactive bowel sounds, non-tender and non-distended Extremity normal capillary refill General Extremity: Negative for edema Skin no rashes or lesions noted General Skin Exam: no breakdown Psych affect normal Appearance: appropriate Weight / BMI Weight Weight: 101.877 kg Body Mass Index (BMI) 36.2 ABG / Lab / Microbiology Data 07/21/24 05:14 07/21/24 05:14 Laboratory: Laboratory Results - last 24 hr 07/21/24 05:14: WBC 7.7, RBC 3.44 L, Hgb 10.2 L, Hct 31.3 L, MCV 91.0, MCH 29.7,MCHC 32.6, RDW Std Deviation 43.5, RDW Coeff of Lance 13.2, Plt Count 383, MPV 10.1, Immature Gran % (Auto) 0.400, Neut % (Auto) 64.1, Lymph % (Auto) 22.9, Cochran % (Auto) 8.1, Eos % (Auto) 3.6, Baso % (Auto) 0.9, Absolute Neuts (auto) 4.9, Absolute Lymphs (auto) 1.76, Nucleated RBC % 0, Sodium 136, Potassium 3.8, Chloride 98, Carbon Dioxide 26.8, Anion Gap 12, BUN 17, Creatinine 0.99, Estim Creat Clear Calc 60.99, Est GFR (MDRD) Non-Af 60, BUN/Creatinine Ratio 16.6, Glucose 107 H, Calcium 9.8 D/C Instructions Discharge Diet: No restrictions Discharge Activity: Return to Normal Activity, May Shower and Use Walker Weight Bearing Status: Weight bearing as tolerated Call your doctor if you observe: Fever of 101 or Higher, Inability to urinate, Inability to have a bowel movement, Shortness of breath, Dizziness, Fainting spells, Swelling in the ankles, Chest pain and Uncontrolled pain DC O2, CPAP, BIPAP Needs Home O2 Discharge instructions: No Additional Instructions: Discharge home with 07/22/2024, [facility] PT/OT. Please Follow Up With: Rupert Reyes MD When: 4 weeks. Meaningful Use Info Meaningful Use Meaningful Use Diagnoses (Choose all that apply): None applicable Ischemic Stroke Statin Dosing Therapy Reference: STATIN DOSE THERAPY REFERENCE: * Patients > 75 years receive moderate or high dose statin therapy. * Patients 75 years or YOUNGER should receive HIGH intensity statin dose unless contraindicated. You will be required to document reason for non-treatment if statin daily dose does not meet guidelines. HIGH DOSE STATIN THERAPY DAILY Atorvastatin > than or = to 40 mg Rosuvastatin > than or = to 20 mg Amlodipine + Atorvastatin > than or = to 2.5/40 mg Ezetimibe + Simvastatin 10/80 mg Simvastatin 80mg Discharge Plan Admission Admit Date/Time: 07/06/24 13:28 Primary Reason for Your Visit: Debility. Attending Provider: New Bear Chi Primary Care Provider: Navdeep Ulloa Instructions Additional Instructions / Restrictions: Discharge home with 07/22/2024, [facility] PT/OT. Discharge Orders/Prescriptions Prescriptions: New sennosides-docusate sodium [Stimulant Laxative Plus] 8.6-50 mg Tablet 2 tab PO BID 30 Days Qty: 120 0RF metoprolol succinate 100 mg Tablet Extended Release 24 Hr 100 mg PO BID 30 Days Qty: 60 0RF acetaminophen 500 mg Tablet 1,000 mg PO Q8 Qty: 0 0RF diltiazem HCl 300 mg Capsule,Extended Release 24hr 300 mg PO DAILY 30 Days Qty: 30 0RF hydrochlorothiazide 25 mg Tablet 25 mg PO DAILY 30 Days Qty: 30 0RF oxycodone 5 mg Tablet 5 - 10 mg PO Q4H PRN PRN (Reason: Pain Score 6-10 Or Pre Pt/Ot) 7 Days Qty: 42 0RF Eliquis 5 mg Tablet 5 mg PO BID 30 Days Qty: 60 0RF Continued calcium carbonate-vitamin D3 600 mg(1,500mg) -200 unit Tablet 1 tab PO BID fiber Capsule 3 cap PO DAILY cholecalciferol (vitamin D3) [Vitamin D3] 50 mcg (2,000 unit) Capsule 2,000 unit PO DAILY atorvastatin 10 mg tablet 10 mg PO QHS multivitamin [Daily Multi-Vitamin] Tablet 1 tab PO DAILY Discontinued ferrous sulfate [Iron (ferrous sulfate)] 325 mg (65 mg iron) Tablet 650 mg PO DAILY Multivit W/Fluoride 1 tab PO/SL DAILY Vitamin C 100 mg Tablet 500 mg PO DAILY acetaminophen 500 mg tablet 1,000 mg PO Q8H PRN PRN (Reason: pain) cefadroxil 500 mg capsule 500 mg PO Q12H diltiazem HCl 300 mg capsule,extended release 24hr 300 mg PO DAILY docusate sodium 100 mg capsule 100 mg PO BID PRN (Reason: Constipation) hydrocortisone 2.5 % cream 1 applic topical BID magnesium hydroxide 400 mg/5 mL suspension 30 ml PO DAILY PRN (Reason: constipation) oxycodone 5 mg tablet 5 - 10 mg PO Q6H PRN (Reason: pain (scale score 7-10)) pantoprazole 40 mg tablet,delayed release (DR/EC) 40 mg PO DAILY Patient Comments: Take 1 tablet by mouth daily at 6am polyethylene glycol 3350 17 gram/dose powder 17 g PO DAILY PRN (Reason: constipation) Eliquis 5 mg tablet 5 mg PO BID metoprolol succinate 25 mg tablet extended release 24 hr 100 mg PO DAILY Referrals / Follow Up: Roxanne Quesada CNP [Other] (Follow-up as needed for your A-fib. You will transfer to Continuous Absorption Process Operator Dr. Mena at the [facility] on August 11. ) Rosalio Mena MD [Med Staff - Active Staff] - 08/11/24 11:00 am Navdeep Ulloa MD [Outreach Lab Services] - 07/27/24 11:20 am Disposition Disposition (needs filled in before D/C Order can be placed): Home Health Service 07/21/242036 <Electronically signed by New Bear MD> Cosigner Signature (if applicable): CC: Dr. New Bear MD; Dr. Navdeep Ulloa MD~ Signed [facility] Work Phone: [phone] [phone] Discharge summary [facility] Medical Records Department [address] [place] [address] Discharge Summary 07/21/242029 MR#: [id number] Acct: [id number] Name: AZALEA MOTT Rep #:[id number] 1 : 1950 74 From: New Bear MD PCP: Dr. Navdeep Ulloa MD Status:A DM IN Location: [place] [address] Providers Date of Admission: 07/06/24 Primary Care Physician: Dr. Navdeep Ulloa MD Reason For Visit: R TOTAL HIP ARTHROPLASTY Diagnosis Discharge Diagnosis (1) Debility: Status: Acute Code(s): R53.81 - Other malaise (2) Status post total hip replacement, right: Status: Acute Code(s): Z96.641 - Presence of right artificial hip joint (3) Atrial fibrillation with RVR: Status: Acute Code(s): I48.91 - Unspecified atrial fibrillation (4) Essential (primary) hypertension: Status: Acute Code(s): I10 - Essential (primary) hypertension (5) Obstructive sleep apnea: Status: Acute Code(s): G47.33 - Obstructive sleep apnea (adult) (pediatric) (6) Obesity: Status: Acute Code(s): E66.9 - Obesity, unspecified (7) Iron deficiency anemia: Status: Acute Code(s): D50.9 - Iron deficiency anemia, unspecified (8) Chronic kidney disease, stage 3a: Status: Chronic Code(s): N18.31 - Chronic kidney disease, stage 3a (9) Hyperlipidemia, unspecified: Status: Acute Code(s): E78.5 - Hyperlipidemia, unspecified (10) Venous insufficiency: Status: Acute Code(s): I87.2 - Venous insufficiency (chronic) (peripheral) Plan 74 year old female with below past medical history underwent right total hip arthroplasty 06/30/2024with Dr. Gibbons ([facility]), postoperative course complicated by atrial fibrillation with RVR, admitted to TCU with debility, here for rehabilitation, strengthening, prior to discharge home with . * Debility - PT/OT. * Pain - Tylenol 1000mg q8, Oxycodone 5-10mg q4 prn pain (6-10). * Bowel - Miralax 17gm daily, senna/colace 2 tablets bid, Magnesium citrate 300mL po x 1 dose, thendaily prn. * Adult immunization - Administer pneumonia vaccine, covid vaccine, flu vaccine as appropriate. * DVT prophylaxis - Eliquis. * Atrial fibrillation - Metoprolol succinate 100mg daily, Diltiazem CD 300mg daily, Eliquis 5mg bid, Schedule office appointment with Dr. Andino or Vj Gonzalez for consultation. * Iron deficiency anemia - Ferrous sulfate 650mg daily, Vitamin C 500mg bid thru 07/25/2024. * Hyperlipidemia - Atorvastatin 10mg qhs. * Infection prophylaxis - Cefadroxil 500mg q12 thru 07/20/2024. * Vitamin D deficiency - D3 50mcg daily. * Rash - HC 2.5% topical bid thru 07/11/2024. * Nutrition - MVI 1 tablet daily. * GERD - Pantoprazole 40mg daily. Medications at Discharge Home Medications calcium 600 mg (as carbonate)-vitamin D3 5 mcg (200 unit) tablet 1 tab PO BID supplement 09/24/20 cholecalciferol (vitamin D3) 50 mcg (2,000 unit) capsule (Vitamin D3) 2,000 unitPO DAILY [id number]/21 fiber 3 cap PO DAILY supplement 09/24/20 atorvastatin 10 mg tablet 10 mg PO QHS cholesterol 07/06/24 multivitamin (Daily Multi-Vitamin tablet) 1 tab PO DAILY Supplement 07/06/24 acetaminophen 500 mg tablet 1,000 mg (2 x 500 mg) PO Q8 #0 tabs 07/21/24 apixaban 5 mg tablet (Eliquis) 5 mg PO BID 30 days #60 tabs 07/21/24 diltiazem HCl 300 mg capsule,extended release 24 hr 300 mg PO DAILY 30 days #30 caps 07/21/24 hydrochlorothiazide 25 mg tablet 25 mg PO DAILY 30 days #30 tabs 07/21/24 metoprolol succinate 100 mg tablet,extended release 24 hr 100 mg PO BID 30 days #60 tabs 07/21/24 oxycodone 5 mg tablet 5 - 10 mg (1 - 2 x 5 mg) PO Q4H PRN PRN Pain Score 6-10 OrPre Pt/Ot 7 days #42 tabs 07/21/24 sennosides 8.6 mg-docusate sodium 50 mg tablet (Stimulant Laxative Plus) 2 tab PO BID 30 days #120 tabs 07/21/24 Hospital Course Operations total hip replacement (Right.) Procedures None Summary of Care Provided Minutes Spent on Discharge: 35 Hospital Course: 74 year old female with below past medical history underwent right total hip arthroplasty 06/30/2024with Dr. Gibbons ([facility]), postoperative course complicated by atrial fibrillation with RVR, admitted to TCU with debility, here for rehabilitation, strengthening, prior to discharge home with . Discharge home with 07/22/2024, [facility] PT/OT. Physical Exam Const alert General Appearance: cooperative HEENT normocephalic Eyes PERRL and EOMs intact bilaterally Neck supple, no JVD and no carotid bruits Resp normal respiratory effort, normal air movement and clear to auscultation bilaterally Cardio regular rate and regular rhythm GI normal to inspection, nondistended, normoactive bowel sounds, non-tender and non-distended Extremity normal capillary refill General Extremity: Negative for edema Skin no rashes or lesions noted General Skin Exam: no breakdown Psych affect normal Appearance: appropriate Weight / BMI Weight Weight: 101.877 kg Body Mass Index (BMI) 36.2 ABG / Lab / Microbiology Data 07/21/24 05:14 07/21/24 05:14 Laboratory: Laboratory Results - last 24 hr 07/21/24 05:14: WBC 7.7, RBC 3.44 L, Hgb 10.2 L, Hct 31.3 L, MCV 91.0, MCH 29.7,MCHC 32.6, RDW Std Deviation 43.5, RDW Coeff of Lance 13.2, Plt Count 383, MPV 10.1, Immature Gran % (Auto) 0.400, Neut %(Auto) 64.1, Lymph % (Auto) 22.9, Cochran % (Auto) 8.1, Eos % (Auto) 3.6, Baso % (Auto) 0.9, Absolute Neuts (auto) 4.9, Absolute Lymphs (auto) 1.76, Nucleated RBC % 0, Sodium 136, Potassium 3.8, Chloride 98, Carbon Dioxide 26.8, Anion Gap 12, BUN 17, Creatinine 0.99, Estim Creat Clear Calc 60.99, Est GFR (MDRD) Non-Af 60, BUN/Creatinine Ratio 16.6, Glucose 107 H, Calcium 9.8 D/C Instructions Discharge Diet: No restrictions Discharge Activity: Return to Normal Activity, May Shower and Use Walker Weight Bearing Status: Weight bearing as tolerated Call your doctor if you observe: Fever of 101 or Higher, Inability to urinate, Inability to have a bowel movement, Shortness of breath, Dizziness, Fainting spells, Swelling in the ankles, Chest pain and Uncontrolled pain DC O2, CPAP, BIPAP Needs Home O2 Discharge instructions: No Additional Instructions: Discharge home with 07/22/2024, [facility] PT/OT. Please Follow Up With: Rupert Reyes MD When: 4 weeks. Meaningful Use Info Meaningful Use Meaningful Use Diagnoses (Choose all that apply): None applicable Ischemic Stroke Statin Dosing Therapy Reference: STATIN DOSE THERAPY REFERENCE: * Patients > 75 years receive moderate or high dose statin therapy. * Patients 75 years or YOUNGER should receive HIGH intensity statin dose unless contraindicated. You will be required to document reason for non-treatment if statin daily dose does not meet guidelines. HIGH DOSE STATIN THERAPY DAILY Atorvastatin > than or = to 40 mg Rosuvastatin > than or = to 20 mg Amlodipine + Atorvastatin > than or = to 2.5/40 mg Ezetimibe + Simvastatin 10/80 mg Simvastatin 80mg Discharge Plan Admission Admit Date/Time: 07/06/24 13:28 Primary Reason for Your Visit: Debility. Attending Provider: New Bear Chi Primary Care Provider: Navdeep Ulloa Instructions Additional Instructions / Restrictions: Discharge home with 07/22/2024, [facility] PT/OT. Discharge Orders/Prescriptions Prescriptions: New sennosides-docusate sodium [Stimulant Laxative Plus] 8.6-50 mg Tablet 2 tab PO BID 30 Days Qty: 120 0RF metoprolol succinate 100 mg Tablet Extended Release 24 Hr 100 mg PO BID 30 Days Qty: 60 0RF acetaminophen 500 mg Tablet 1,000 mg PO Q8 Qty: 0 0RF diltiazem HCl 300 mg Capsule,Extended Release 24hr 300 mg PO DAILY 30 Days Qty: 30 0RF hydrochlorothiazide 25 mg Tablet 25 mg PO DAILY 30 Days Qty: 30 0RF oxycodone 5 mg Tablet 5 - 10 mg PO Q4H PRN PRN (Reason: Pain Score 6-10 Or Pre Pt/Ot) 7 Days Qty: 42 0RF Eliquis 5 mg Tablet 5 mg PO BID 30 Days Qty: 60 0RF Continued calcium carbonate-vitamin D3 600 mg(1,500mg) -200 unit Tablet 1 tab PO BID fiber Capsule 3 cap PO DAILY cholecalciferol (vitamin D3) [Vitamin D3] 50 mcg (2,000 unit) Capsule 2,000 unit PO DAILY atorvastatin 10 mg tablet 10 mg PO QHS multivitamin [Daily Multi-Vitamin] Tablet 1 tab PO DAILY Discontinued ferrous sulfate [Iron (ferrous sulfate)] 325 mg (65 mg iron) Tablet 650 mg PO DAILY Multivit W/Fluoride 1 tab PO/SL DAILY Vitamin C 100 mg Tablet 500 mg PO DAILY acetaminophen 500 mg tablet 1,000 mg PO Q8H PRN PRN (Reason: pain) cefadroxil 500 mg capsule 500 mg PO Q12H diltiazem HCl 300 mg capsule,extended release 24hr 300 mg PO DAILY docusate sodium 100 mg capsule 100 mg PO BID PRN (Reason: Constipation) hydrocortisone 2.5 % cream 1 applic topical BID magnesium hydroxide 400 mg/5 mL suspension 30 ml PO DAILY PRN (Reason: constipation) oxycodone 5 mg tablet 5 - 10 mg PO Q6H PRN (Reason: pain (scale score 7-10)) pantoprazole 40 mg tablet,delayed release (DR/EC) 40 mg PO DAILY Patient Comments: Take 1 tablet by mouth daily at 6am polyethylene glycol 3350 17 gram/dose powder 17 g PO DAILY PRN (Reason: constipation) Eliquis 5 mg tablet 5 mg PO BID metoprolol succinate 25 mg tablet extended release 24 hr 100 mg PO DAILY Referrals / Follow Up: Roxanne Quesada CNP [Other] (Follow-up as needed for your A-fib. You will transfer to Continuous Absorption Process Operator Dr. Mena at the [facility] on August 11. ) Rosalio Mena MD [Med Staff - Active Staff] - 08/11/24 11:00 am Navdeep Ulloa MD [Outreach Lab Services] - 07/27/24 11:20 am Disposition Disposition (needs filled in before D/C Order can be placed): Home Health Service 07/21/242036 Cosigner Signature (if applicable): CC: Dr. New Bear MD; Dr. Navdeep Ulloa MD~ Signed [facility]05-15-2025 [facility] Medical Records Department [address] [place] [address] Discharge Summary 07/21/242029 MR#: [id number] Acct: [id number] Name: AZALEA MOTT Rep #: [id number] : 1950 74 From: New Bear MD PCP: Dr. Navdeep Ulloa MD Status:ADM IN Location: [facility] TCU19-1 Providers Date of Admission: 07/06/24 Primary Care Physician: Dr. Navdeep Ulloa MD Reason For Visit: R TOTAL HIP ARTHROPLASTY Diagnosis Discharge Diagnosis (1) Debility: Status: Acute Code(s): R53.81 - Other malaise (2) Status post total hip replacement, right: Status: Acute Code(s): Z96.641 - Presence of right artificial hip joint (3) Atrial fibrillation with RVR: Status: Acute Code(s): I48.91 - Unspecified atrial fibrillation (4) Essential (primary) hypertension: Status: Acute Code(s): I10 - Essential (primary) hypertension (5) Obstructive sleep apnea: Status: Acute Code(s): G47.33 - Obstructive sleep apnea (adult) (pediatric) (6) Obesity: Status: Acute Code(s): E66.9 - Obesity, unspecified (7) Iron deficiency anemia: Status: Acute Code(s): D50.9 - Iron deficiency anemia, unspecified (8) Chronic kidney disease, stage 3a: Status: Chronic Code(s): N18.31 - Chronic kidney disease, stage 3a (9) Hyperlipidemia, unspecified: Status: Acute Code(s): E78.5 - Hyperlipidemia, unspecified (10) Venous insufficiency: Status: Acute Code(s): I87.2 - Venous insufficiency (chronic) (peripheral) Plan 74 year old female with below past medical history underwent right total hip arthroplasty 06/30/[address] Gibbons ([facility]), postoperative course complicated by atrial fibrillation with RVR, admitted to TCU with debility, here for rehabilitation, strengthening, prior to discharge home with . * Debility - PT/OT. * Pain - Tylenol 1000mg q8, Oxycodone 5-10mg q4 prn pain (6-10). * Bowel - Miralax 17gm daily, senna/colace 2 tablets bid, Magnesium citrate 300mL po x 1 dose, then daily prn. * Adult immunization - Administer pneumonia vaccine, covid vaccine, flu vaccine as appropriate. * DVT prophylaxis - Eliquis. * Atrial fibrillation - Metoprolol succinate 100mg daily, Diltiazem CD 300mg daily, Eliquis 5mg bid, Schedule office appointment with Dr. Andino or Vj Gonzalez for consultation. * Iron deficiency anemia - Ferrous sulfate 650mg daily, Vitamin C 500mg bid thru 07/25/2024. * Hyperlipidemia - Atorvastatin 10mg qhs. * Infection prophylaxis - Cefadroxil 500mg q12 thru 07/20/2024. * Vitamin D deficiency - D3 50mcg daily. * Rash - HC 2.5% topical bid thru 07/11/2024. * Nutrition - MVI 1 tablet daily. * GERD - Pantoprazole 40mg daily. Medications at Discharge Home Medications calcium 600 mg (as carbonate)-vitamin D3 5 mcg (200 unit) tablet 1 tab PO BID supplement 09/24/20 cholecalciferol (vitamin D3) 50 mcg (2,000 unit) capsule (Vitamin D3) 2,000 unit PO DAILY supplement 09/24/20 fiber 3 cap PO DAILY supplement 09/24/20 atorvastatin 10 mg tablet 10 mg PO QHS cholesterol 07/06/24 multivitamin (Daily Multi-Vitamin tablet) 1 tab PO DAILY Supplement 07/06/24 acetaminophen 500 mg tablet 1,000 mg (2 x 500 mg) PO Q8 #0 tabs 07/21/24 apixaban 5 mg tablet (Eliquis) 5 mg PO BID 30 days #60 tabs 07/21/24 diltiazem HCl 300 mg capsule,extended release 24 hr 300 mg PO DAILY 30 days #30 caps 07/21/24 hydrochlorothiazide 25 mg tablet 25 mg PO DAILY 30 days #30 tabs 07/21/24 metoprolol succinate 100 mg tablet,extended release 24 hr 100 mg PO BID 30 days #60 tabs 07/21/24 oxycodone 5 mg tablet 5 - 10 mg (1 - 2 x 5 mg) PO Q4H PRN PRN Pain Score 6-10 Or Pre Pt/Ot 7 days #42 tabs 07/21/24 sennosides 8.6 mg-docusate sodium 50 mg tablet (Stimulant Laxative Plus) 2 tab PO BID 30 days #120 tabs 07/21/24 Hospital Course Operations total hip replacement (Right.) Procedures None Summary of Care Provided Minutes Spent on Discharge: 35 Hospital Course: 74 year old female with below past medical history underwent right total hip arthroplasty 06/30/[address] Gibbons ([facility]), postoperative course complicated by atrial fibrillation with RVR, admitted to TCU with debility, here for rehabilitation, strengthening, prior to discharge home with . Discharge home with 07/22/2024, [facility] PT/OT. Physical Exam Const alert General Appearance: cooperative HEENT normocephalic Eyes PERRL and EOMs intact bilaterally Neck supple, no JVD and no carotid bruits Resp normal respiratory effort, normal air movement and clear to auscultation bilaterally Cardio regular rate and regular rhythm GI normal to inspection, nondistended, normoactive bowel sounds, non-tender and non-distended Extremity normal capillary refill General Extremity: Negative for edema Skin no rashes or lesions noted General Skin Exam: no breakdown (more content not included)...[facility]05-15-2025 Telephone encounter Note* Telephone Encounter - Navdeep Ulloa MD - 07/21/2024 2:26 PM EDT I can follow HH. [facility]05-15-2025 Miscellaneous Notes* Telephone Encounter - Navdeep Ulloa MD - 07/21/2024 2:26 PM EDT I can follow HH. * Telephone Encounter - Julia Reynoso LPN - 07/21/2024 1:39 PM EDT Navdeep Ulloa MD Please advise if you are agreeable to signing and following for [facility] services? Our Clinicians will be sending the Plan of Care to you for review and approval. They will reach out for any appropriate orders required to provide home care services for the patient. We are not able to initiate HHC services without a following provider. Home care clinicians may also obtain orders from [facility] Virtualist Providers Thank you and we would be happy to answer any questions. Julia Reynoso LPN documented in [facility] encounterThe [facility] Telephone encounter Note * Telephone Encounter - Julia Reynoso LPN - 07/21/2024 2:01 PM EDT Images from the original note were not included. Date/Time: 07/21/2024 2:01 PM Spoke with [employer] @ phone #: [phone] - Preferred # for contact: [phone] Have you received help from a home care company in the last 60 days? no Are you agreeable to HHC services? yes What address will we be seeing you at? [address] [facility] [address] Do you have any upcoming appointments or things we need to schedule around? no Do you have a teachable CG or can you manage your care independently? Independent, family supportive [facility] Work Phone: [phone] Miscellaneous Notes* Telephone Encounter - Julia Reynoso LPN - 07/21/2024 2:01 PM EDT Images from the original note were not included. Date/Time: 07/21/2024 2:01 PM Spoke with [employer] @ phone #: [phone] - Preferred # for contact: [phone] Have you received help from a home care company in the last 60 days? no Are you agreeable to HHC services? yes What address will we be seeing you at? [address] [facility] [address] Do you have any upcoming appointments or things we need to schedule around? no Do you have a teachable CG or can you manage your care independently? Independent, family supportive documented in [facility] encounterThe [facility] Telephone encounter Note * Telephone Encounter - Julia Reynoso LPN - 07/21/2024 1:39 PM EDT Navdeep Ulloa MD Please advise if you are agreeable to signing and following for [facility] services? Our Clinicians will be sending the Plan of Care to you for review and approval. They will reach out for any appropriate orders required to provide home care services for the patient. We are not able to initiate HHC services without a following provider. Home care clinicians may also obtain orders from [facility] Virtualist Providers Thank you and we would be happy to answer any questions. Julia Reynoso LPN [facility] Work Phone: [phone] Telephone encounter Note* Telephone Encounter - Florida Perez LPN - 07/20/2024 5:07 PM EDT Jamal Gr PA-C Thank you for the referral for Azalea to receive home care services through [facility]. Is Azalea still inpatient at [facility]? Typically the housing case manager at the facility sets up home care services as part of the discharge plan. If she is currently inpatient at the rehab we are unable to accept a home care order from an ambulatory provider. Also, per CMS guidelines your office note needs to include a discussion of HHC with the following: - why is HHC needed - why is the patient homebound - what is the diagnosis that HHC is seeing the patient for. Thank you, Florida Perez LPN [facility]05-14-2025 Miscellaneous Notes* Telephone Encounter - Florida Perez LPN - 07/20/2024 5:07 PM EDT Jamal Gr PA-C Thank you for the referral for Azalea to receive home care services through [facility]. Is Azalea still inpatient at [facility]? Typically the housing case manager at the facility sets up home care services as part of the discharge plan. If she is currently inpatient at the rehab we are unable to accept a home care order from an ambulatory provider. Also, per CMS guidelines your office note needs to include a discussion of HHC with the following: - why is HHC needed - why is the patient homebound - what is the diagnosis that HHC is seeing the patient for. 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 Post-operative course has been withoutcomplication. Patient was admitted to TCU for aftercare. Patient had subsequent A-fib with RVR with heart rate inthe 160-170 range on July 02. Currenlty on metoprolol and new Eliquis due to afib. Has cardiac follow up set up. Subjective: Patient reports mild pain. Overall is doing well. + ambulatory aid + opioid pain medication Objective: Ambulates with walker Incision well-approximated, no drainage, normal lyndsey-incisional erythema Full ROM not tested do to early post-operative period, but smaller arcs of motion fluid and comfortable Distally DP/PT palpable Distally S/S/SP/DP/T intact at baseline Distally DF/EHL/PF intact at baseline Negative lillie/calf tenderness Xrays: Well aligned total hip replacement in appropriate position with no evidence of loosening Assessment and Plan: Azalea Mott Is here for a first post-op appointment, overall doing well -continued ice, rest, and use of non-narcotic analgesia as needed -wean off ambulatory aids -discussed home exercises and therapy -WBAT on operative extremity -reinforced posterior precautions through 8 weeks: avoid extremes of flexion, internal rotation, and adduction -continue ankle pumps and dvt ppx through 4 weeks -discussed driving requirement: 4 weeks post-op, off narcotic pain medication, adequate brake time -will see back at 6 week appointment for clinical exam -discussed red flag symptoms of acutely increasing pain, new erythema, new swelling, drainage, shortness of breath Jamal Gr PA-C Orthopaedic Surgery documented in this encounterThe [facility] Hospital05-14-2025 NoteHNO ID: [id number] Author: JAMAL GR PA-C Service: ? Author Type: Physician Pizza Cook Type: Progress Notes Filed: 07/20/2024 14:41 Note Text: Post-op Office Visit Azalea Mott 74 year old July 20, 2024 7:42 AM Surgery Date: 06/30/2024 History: Azalea Mott Is now 3 weeks out from right 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 Post-operative course has been without complication. Patient was admitted to TCU for aftercare. Patient had subsequent A-fib with RVR with heart rate in the 160-170 range on July 02. Currenlty on metoprolol and new Eliquis due to afib. Has cardiac follow up set up. Subjective: Patient reports mild pain. Overall is doing well. + ambulatory aid + opioid pain medication Objective: Ambulates with walker Incision well-approximated, no drainage, normal lyndsey-incisional erythema Full ROM not tested do to early post-operative period, but smaller arcs of motion fluid and comfortable Distally DP/PT palpable Distally S/S/SP/DP/T intact at baseline Distally DF/EHL/PF intact at baseline Negative lillie/calf tenderness Xrays: Well aligned total hip replacement in appropriate position with no evidence of loosening Assessment and Plan: Azalea Mott Is here for a first post-op appointment, overall doing well -continued ice, rest, and use of non-narcotic analgesia as needed -wean off ambulatory aids -discussed home exercises and therapy -WBAT on operative extremity -reinforced posterior precautions through 8 weeks: avoid extremes of flexion, internal rotation, and adduction -continue ankle pumps and dvt ppx through 4 weeks -discussed driving requirement: 4 weeks post-op, off narcotic pain medication, adequate brake time -will see back at 6 week appointment for clinical exam -discussed red flag symptoms of acutely increasing pain, new erythema, new swelling, drainage, shortness of breath [facility]al Gr [facility] History of Present illness Narrative* Pratibha Espitia Tech - 07/20/2024 1:50 PM EDT Radiology Service Progress Note PATIENT NAME: Azalea Mott DATE OF SERVICE: July 20, 2024 TIME: 1:57 PM PATIENT IDENTITY VERIFICATION COMPLETED USING TWO (2) IDENTIFIERS: Name and Date of confirmedby patient verbally. FALL SCREENING: Has the patient had 2 falls in the last year or 1 fall with injury or currently using an Ambulatory Assistive Device (Walker, Cane, Wheelchair, Crutches, etc.)? Yes, Patient High Riskfor Falls What interventions were put in place to prevent falls during this visit? Instructed Patient to Callfor Help if Needed, Offered Assistance with Transfers/Clothing, Instructed Patient to Remain Seated(Not on Exam Table) Until Exam, and Increased Observations by Caregivers PATIENT GENDER DATA: Assigned female at . status: : No status:NO. PATIENT RELEVANT IMPLANT DATA REVIEWED: Not Applicable PATIENT PRESENTS WITH AN IMPLANTABLE OR ATTACHED CORPORATE DIRECTOR: No RADIOLOGY DEPARTMENT: General X-ray: Exam(s) Completed: Pelvis X-Ray: Pelvis with Hip Right and Wt.Bearing PERIPHERAL IV DATA: Not applicable SIGNED BY: Delilah Richards July 20, 2024 1:57 PM documented in this encounterThe [facility]05-14-2025 NoteHNO ID: [id number] Author: PRATIBHA ESPITIA Tech Service: ? Author Type: Laundry Housekeeper Type: Progress Notes Filed: 07/20/2024 13:58 Note Text: Radiology Service Progress Note PATIENT NAME: Azalea Mott DATE OF SERVICE: July 20, 2024 TIME: 1:57 PM PATIENT IDENTITY VERIFICATION COMPLETED USING TWO (2) IDENTIFIERS: Name and Date of confirmed by patient verbally. FALL SCREENING: Has the patient had 2 falls in the last year or 1 fall with injury or currently using an Ambulatory Assistive Device (Walker, Cane, Wheelchair, Crutches, etc.)? Yes, Patient High Risk for Falls What interventions were put in place to prevent falls during this visit? Instructed Patient to Call for Help if Needed, Offered Assistance with Transfers/Clothing, Instructed Patient to Remain Seated (Not on Exam Table) Until Exam, and Increased Observations by Caregivers PATIENT GENDER DATA: Assigned female at . status: : No status: NO. PATIENT RELEVANT IMPLANT DATA REVIEWED: Not Applicable PATIENT PRESENTS WITH AN IMPLANTABLE OR ATTACHED CORPORATE DIRECTOR: No RADIOLOGY DEPARTMENT: General X-ray: Exam(s) Completed: Pelvis X-Ray: Pelvis with Hip Right and Wt. Bearing PERIPHERAL IV DATA: Not applicable SIGNED BY: Delilah Richards July 20, 2024 1:57 PMCincinnati Va Medical [id number] Telephone encounter Note* Telephone Encounter - Alexandrea Ramey RN - 07/15/2024 9:01 AM EDT Pt is admitted to SNF in [place] transitional care unit. Dr. Garg is rounding on pt and adjusted metoprolol to 100 mg BID. Pt will be transitioning to [place] [facility]. [facility]05-09-2025 Miscellaneous Notes* Telephone Encounter - Alexandrea Ramey RN - 07/15/2024 9:01 AM EDT Pt is admitted to SNF in [place] transitional care unit. Dr. Garg is rounding on pt and adjusted metoprolol to 100 mg BID. Pt will be transitioning to [place] [facility]. * Telephone Encounter - Yamilka Celis - 07/14/2024 9:10 AM EDT Bianca, from [facility], calling to report the patient is admitted and has a heart rate has been between 130-140's. Bianca asked for a sooner follow up visit with cardiology, nothing sooner, patient on wait list. Please call to advise if any medication changes are need or other orders: [phone] Ask for Bianca or Bettie documented in this encounterThe [facility] Hospital05-08-2025 Telephone encounter Note * Telephone Encounter - Yamilka Celis - 07/14/2024 9:10 AM EDT Bianca, from [facility], calling to report the patient is admitted and has a heart rate has been between 130-140's. Bianca asked for a sooner follow up visit with cardiology, nothing sooner, patient on wait list. Please call to advise if any medication changes are need or other orders: [phone] Ask for Bianca or Bettie [facility]05-08-2025 Telephone encounter Note* Telephone Encounter - Sandro Escobar RN - 07/14/2024 8:21 AM EDT Kacy from [facility] [phone] Pt has elevated HR 130s. She was rescheduled d/t this to Jamal's schedule. [facility] Work Phone: [phone]) 712-104005-08-2025 Miscellaneous Notes* Telephone Encounter - Sandro Escobar RN - 07/14/2024 8:21 AM EDT Kacy from [facility] [phone] Pt has elevated HR 130s. She was rescheduled d/t this to Jamal's schedule. documented in this encounterThe [facility] Hospital05-07-2025 NoteHNO ID: [id number] Author: WANDA HERNANDEZ MA Service: ? Author Type: Inspector Type Type: Progress Notes Filed: 07/13/2024 09:28 Note Text: POPULATION HEALTH NAVIGATION OUTREACH Action/FYI Spoke to patient about scheduling AWV and HCC gaps. Patient just had replacement surgery and wishes to wait a bit. Topic Due (Y or N) Comments Annual Wellness Exam Yes PCP Follow up No Colorectal Cancer Screening No A1C No HTN/Controlling BP No HCC Yes Updated appointment notes No Reason for Outreach Care Gap/HCC or Scheduling Wellness Visits Care Gaps due: Medicare Annual Wellness Visit Patient Contacted: Spoke to patient/parent/or legal guardian Patient identified by name and : Yes Care Gap/HCC/Scheduling Wellness actions taken: Patient declined: Patient requested call back from navigator/ will call navigator back HCC related Navigation Signature: Wanda Hernandez MA July 13, 2024 9:27 [facility]05-07-2025 History of Present illness Narrative* Wanda Hernandez MA - 07/13/2024 9:26 AM EDT POPULATION HEALTH NAVIGATION OUTREACH Action/FYI Spoke to patient about scheduling AWV and HCC gaps. Patient just had replacement surgery and wishesto wait a bit. Topic Due (Y or N) Comments Annual Wellness Exam Yes PCP Follow up No Colorectal Cancer Screening No A1C No HTN/Controlling BP No HCC Yes Updated appointment notes No Reason for Outreach Care Gap/HCC or Scheduling Wellness Visits Care Gaps due: Medicare Annual Wellness Visit Patient Contacted: Spoke to patient/parent/or legal guardian Patient identified by name and : Yes Care Gap/HCC/Scheduling Wellness actions taken: Patient declined: Patient requested call back from navigator/ will call navigator back HCC related Navigation Signature: Wanda Hernandez MA July 13, 2024 9:27 AM documented in this encounterThe [facility]05-07-2025 NotePatient Outreach (NETNAV) AZALEA MOTT ([id number]) 1950 F Date Time Provider Department 07/13/24 WANDA HERNANDEZ NETSABA During your visit today, we recorded the following information about you: Wanda Hernandez MA 07/13/2024 9:28 AM Signed POPULATION HEALTH NAVIGATION OUTREACH Action/FYI Spoke to patient about scheduling AWV and HCC gaps. Patient just had replacement surgery and wishes to wait a bit. Topic Due (Y or N) Comments Annual Wellness Exam Yes PCP Follow up No Colorectal Cancer Screening No A1C No HTN/Controlling BP No HCC Yes Updated appointment notes No Reason for Outreach Care Gap/HCC or Scheduling Wellness Visits Care Gaps due: Medicare Annual Wellness Visit Patient Contacted: Spoke to patient/parent/or legal guardian Patient identified by name and : Yes Care Gap/HCC/Scheduling Wellness actions taken: Patient declined: Patient requested call back from navigator/ will call navigator back HCC related Navigation Signature: Wanda Hernandez MA July 13, 2024 9:27 AM Allergies As of Date: 07/13/2024 Noted Allergy Reaction NORCO (HYDROCODONE-ACETAMINOPHEN) 10/24/2020 14 - Other: See Comments Comments: Weird dreams. Date Reviewed: 07/06/2024 Reviewed by: Pennie Webb RN - Fully Assessed Reason for Visit: Population Health Navigation Outreach [3910] Cmt: Ravin/Workbench/ACO Prescriptions as of 07/13/2024 - ascorbic acid, vitamin C, (VITAMIN C) 500 mg tablet Take 1 tablet by mouth two times a day with meals for 19 doses. - acetaminophen (TYLENOL) 500 mg tablet Take 2 tablets by mouth every 8 hours as needed for pain. - cefADROxil (DURICEF) 500 mg capsule Take 1 capsule by mouth every 12 hours for 14 days. - dilTIAZem CD (CARDIZEM CD, CARTIA XT) 300 mg 24 hr capsule Take 1 capsule by mouth once daily. Patient should start on July 06, 2024. - metoprolol succinate ER (TOPROL XL) 100 mg Take 1 tablet by mouth once daily. - magnesium hydroxide (MOM) 400 mg/5 mL suspension Take 30 mL by mouth once daily as needed for constipation. - pantoprazole DR (PROTONIX) 40 mg tablet Take 1 tablet by mouth daily at 6 am. - docusate sodium (COLACE) 100 mg capsule Take 1 capsule by mouth two times a day as needed for constipation. - polyethylene glycol 3350 (MIRALAX) 17 gram/dose powder Take 17 g by mouth once daily as needed for constipation for up to 10 days. Dissolve dose in 4 - 8 ounces of liquid and take as directed. - apixaban (ELIQUIS) 5 mg tab(s) Take 1 tablet by mouth two times a day. - atorvastatin (LIPITOR) 10 mg tablet Take 1 tablet by mouth daily at bedtime. For cholesterol. - CPAP CPAP Supplies, All Necessary equipment including tubing and full mask ICD G47.33 - HAIR, SKIN AND NAILS, BIOTIN, ORAL Take 2 tablets by mouth once daily. - elderberry fruit (ELDERBERRY ORAL) Take 2 Doses by mouth once daily. - CPAP 30 day download for And please send chin strap Auto PAP @ 5-20 cm of water with humidification. Mask (per patient preference) optional chin strap (if indicated) , filters, tubing, humidifier and lifetime supplies. - TURMERIC ORAL Take by mouth once daily. With curcumin - Black Cohosh 40 mg tab (Mar Hold) Take 1 tablet by mouth. Take 1 tablet every other day - ferrous sulfate 325 mg (65 mg iron) tablet Take 650 mg by mouth daily with breakfast. - cholecalciferol (VITAMIN D3) 50 mcg (2,000 unit) tablet Take by mouth. - Fiber Cap Take 3 capsules by mouth once daily. - multivitamins(DAILY MULTIVITAMIN TAB) Take one(1) tablet daily. Problem List As Of Date 07/13/2024 Noted Resolved Dermatophytosis of foot [B35.3] 02/05/2006 03/07/2015 Hereditary and idiopathic peripheral neuropathy* 10/24/2020 Hearing Loss in Left Ear [H91.92] 03/27/2009 Post-menopausal bleeding [N95.0] 11/21/2011 03/28/2016 Thickened endometrium [R93.89] 12/05/2011 03/28/2016 [place] of foot [L84] 08/17/2013 03/28/2016 Primary osteoarthritis of right hip [M16.11] 08/09/2015 Arthritis of right hip [M16.11] 08/09/2015 10/24/2020 Hyperlipidemia LDL goal <100 [E78.5] 01/18/2016 Hypertension, essential [I10] 01/02/2020 SIOBHAN on CPAP [G47.33] 01/27/2020 Obesity, Class I, BMI 30-34.9 [E66.811] 10/25/2020 Chronic kidney insufficiency, stage 3 (moderate*08/25/2023 Impaired fasting glucose [R73.01] 04/06/2023 Venous insufficiency [I87.2] 09/02/2023 Atrial flutter (HCC) [I48.92] 06/27/2024 Heart valve disease [I38] 06/27/2024 Mild pulmonary hypertension (HCC) [I27.20] 06/27/2024 S/P total right hip arthroplasty [Z96.641] 07/01/2024 Atrial fibrillation with RVR (HCC) [I48.91] 07/02/2024 07/06/2024 Other specified postprocedural states [Z98.890] 07/12/2024 Encounter Status:Closed by WANDA HERNANDEZ on 07/13/24[facility] 07-08-2024 Consult note Author Lupe Garces [facility] Note Date/Time July 08, 2024 3:26pm [facility] Medical Records Department [address] [place] [address] Counseling Note - Pharmacy 07/08/24 1500 MR#: [id number] Acct: [id number] Name: AZALEA MOTT Rep #:[id number] : 1950 74 From: Lupe Garces PCP: Dr. Navdeep Ulloa MD Status:A DM IN Y Location[facility]- Documented by User: Lupe Garces 07/08/24 15:09 TCU RX Drug Regimen Review Subjective/Objective Subjective/Objective: Subjective: 74 year old female with below past medical history underwent right total hip arthroplasty 06/30/[address] Gibbons ([facility]), postoperative course complicated by atrial fibrillation with RVR, admitted to TCU with debility, here for rehabilitation, strengthening, prior to discharge home with . Objective: Allergies No Known Allergies Allergy Current Medications Generic Name Dose Route Start Last Admin Trade Name Freq PRN Reason Stop Dose Admin Acetaminophen 1,000 mg 07/06/24 22:00 07/08/24 13:19 Acetaminophen 500 Mg Tablet PO 1,000 mg Q8 MEI Administration Apixaban 5 mg 07/06/24 22:00 07/08/24 08:39 Apixaban 5 Mg Tablet PO 5 mg BID MEI Administration Ascorbic Acid 500 mg 07/07/24 08:00 07/08/24 08:38 Ascorbic Acid 500 Mg Tablet PO 07/25/24 08:01 500 mg DAILYCM MIE Administration Atorvastatin Calcium 10 mg 07/06/24 22:00 07/07/24 22:04 Atorvastatin Calcium 10 Mg Tablet PO 10 mg QHS MEI Administration Cefadroxil 500 mg 07/06/24 22:00 07/08/24 08:39 Cefadroxil 500 Mg Capsule PO 07/20/24 22:01 500 mg Q12 [facility] Administration Cholecalciferol 50 mcg 07/07/24 08:00 07/08/24 08:38 Cholecalciferol (Vit D3) 25 Mcg Tablet (1,000 Units) PO 50 mcg DAILYCM [facility] Administration Diltiazem HCl 300 mg 07/07/24 10:00 07/08/24 08:34 Diltiazem Cd 300 Mg Capsule PO 300 mg DAILY [facility] Administration Protocol Ferrous Sulfate 650 mg 07/07/24 12:00 07/08/24 12:03 Ferrous Sulfate 325 Mg Tablet PO 650 mg DAILY@1200 [facility] Administration Hydrocortisone 1 applic 07/06/24 22:00 07/08/24 08:40 Hydrocortisone 2.5% Crm TOPICAL 07/11/24 22:01 1 applic BID [facility] Administration Protocol Magnesium Citrate 300 ml 07/06/24 20:42 Magnesium Citrate 300 Ml PO DAILY PRN Constipation Metoprolol Succinate 100 mg 07/07/24 10:00 07/08/24 08:34 Metoprolol(Xl)Succ 100 Mg Tablet PO 100 mg DAILY [facility] Administration Protocol Multivitamins 1 tablet 07/07/24 08:00 07/08/24 08:38 Multivitamins,Therapeutic Tablet PO [facility] Administration Oxycodone HCl 5 - 10 mg 07/06/24 20:42 07/08/24 13:18 Oxycodone 5 Mg Tablet PO 10 mg Q4H PRN PRN Administration Pain Score 6-10 or Pre PT/OT Pantoprazole Sodium 40 mg 07/07/24 08:00 07/08/24 08:38 Pantoprazole Sodium 40 Mg Tablet PO 40 mg 0800 [facility] Administration Polyethylene Glycol 17 gm 07/07/24 10:00 07/08/24 08:39 Polyethylene Glycol 3350 17 Gm Packet PO Not Given DAILY [facility] Senna/Docusate Sodium 2 tablet 07/06/24 22:00 07/08/24 08:39 Senna/Docusate Sodium 1 Tablet PO 2 tablet BID [facility] Administration Tamsulosin HCl 0.4 mg 07/07/24 17:30 07/07/24 16:28 Tamsulosin Hcl 0.4 Mg Capsule PO 0.4 mg DAILY@1730 [facility] Administration Tuberculin PPD 0.1 ml 07/14/24 10:00 Tuberculin,Purif.Prot.Deriv. 50 Tu/Ml Vial ID 07/14/24 10:01 X1 ONE Problem List (Updated 07/06/24 @ 20:[address] New Bear MD) Venous insufficiency (Acute) Hyperlipidemia, unspecified (Acute) Chronic kidney disease, stage 3a (Chronic) Iron deficiency anemia (Acute) Obesity (Acute) Obstructive sleep apnea (Acute) Essential (primary) hypertension (Acute) Atrial fibrillation with RVR (Acute) Status post total hip replacement, right (Acute) Debility (Acute) Vital Signs Temp Pulse Resp BP Pulse Ox O2 Del Method 97.2 F L 72 18 117/64 95 Room Air 07/08/24 08:31 07/08/24 11:45 07/08/24 08:31 07/08/24 08:31 07/08/24 09:29 07/08/24 09:29 Oxygen Delivery Method Room Air Weight: 100.879 kg Body Mass Index (BMI) 35.7 Sodium 137 mmol/L (133-145) 07/07/24 05:19 Potassium 4.9 mmol/L (3.3-5.1) 07/07/24 05:19 Chloride 101 mmol/L (98-108) 07/07/24 05:19 Carbon Dioxide 27.8 mmol/L (21.0-32.0) 07/07/24 05:19 Anion Gap 8 (5-15) 07/07/24 05:19 BUN 20 mg/dL (4-19) H 07/07/24 05:19 Creatinine 0.97 mg/dL (0.70-1.20) 07/07/24 05:19 Est GFR (MDRD) Non-Af 62 (>60) 07/07/24 05:19 BUN/Creatinine Ratio 21.0 RATIO (10-20) H 07/07/24 05:19 Glucose 112 mg/dL (70-99) H 07/07/24 05:19 Assessment/Plan: 1.?? Adult immunization - Up to date on Pneumovax, Covid, and Flu vaccines. Consider Zoster/Shingles Vaccine upon transition of care to Outpatient/long termcare. 2.?? Atrial fibrillation - Metoprolol succinate 100mg PO DAILY, Diltiazem CD 300mg PO DAILY, Eliquis 5mg PO BID. Continue to monitor for S/Sx of Bleeding, DVT, Hg (9.7 g/dL, increased to 10.3 g/dL); Please Continue to monitor HR (83-140), BP (64/177 - 76/128), LFTs, and S/Sx of Orthostasis. Eliquis Dose is appropriate given, present renal function, and weight. 3. Hypertension - Metoprolol succinate 100mg PO DAILY, Diltiazem CD 300mg PO DAILY; Patient's vitals are stable; Please Continue to monitor HR (83-140), BP (64/177 - 76/128), LFTs, and S/Sx of Orthostasis. 3.?? Bowel - MiraLAX 17gm PO DAILY, Senna/Docusate 2 tablets PO BID, Magnesium citrate 300mL po x 1 dose, then daily prn. Last BM 07/07/2024; Please continue to monitor for Constipation/Diarrhea and utilize PRN medications as needed. 4.?? DVT prophylaxis/post-op Hip replacement - Eliquis 5mg PO BID. Continue to monitor for S/Sx of Bleeding, DVT, Hg (10.3 g/dL). 5.?? GERD/Indigestion - Pantoprazole 40mg PO QHS. Please continue to monitor forS/S GERD/indigestion. Please also encourage non pharmacologic measures such as raising the bed, types of food, times of meals, weight loss, and stress management. Consider dose reduction towards weaning off. Patient was not on medication prior to surgery and admission. 6.?? Hyperlipidemia - Atorvastatin 10mg PO QHS. Please continue to monitor LFTs,and for muscle pain. Consider a Lipid profile to asses if patient needs to continue therapy or possibly a wean off. 7.?? Infection post-op prophylaxis - Cefadroxil 500mg PO Q12H through 07/20/2024.Please continue to monitor for S/S of infection around wound area/operative site, Fever diarrhea, stool discoloration, renal function and upset stomach. Patient can be on full dose of 1000 mg BID, given renal function, but dose is also appropriate for post-op prophylaxis. 8.?? Iron deficiency anemia - Ferrous sulfate 650mg daily, Vitamin C 500mg BID thru 07/25/2024.? Hemoglobin is increasing given that patient just had a major surgery. No sign of Microcytic anemia. Continue to monitor HgB (Last 07/08/2024 10.3 g/dL). 9.?? Nutrition - MVI 1 tablet PO DAILY; Evaluate dietary and Nutritional need, Side effects such as Nausea/ Vomiting/Diarrhea/Constipation, and Upset stomach. 10.?Pain - Tylenol 1000mg PO Q8H scheduled, Oxycodone 5-10mg Q4H as needed for pain of (6-10). Regimen seems to bring pain levels down. Continue to Monitor forpain levels, constipation, and dizziness increasing risk for falls, and patient ability to participate in therapy. 11. Rash - HC 2.5% topical BID through 07/11/2024. Monitor for resolution of rash on back area and encourage full hygiene measures. 12. Urinary Retention/indwelling Catheter: Tamsulosin 0.4 mg PO DAILY. Monitor for In/out (total output/Cook 300 mL 07/08/2024), Orthostatic hypertension, andability to remove catheter. 13.?Vitamin D deficiency -Cholecalciferol (Vit D3) 50 Mcg Tablet (2,000 Units) PO DAILY.? Please consider a serum 25(OH)hydroxyvitamin D concentrations as no level found in Hx, and continue to monitor levels every 3 months Assessment/Plan for indications treated with psychotropic medications: None Medical chart and medication regimen reviewed. The following medication irregularities or issues were identified: 1 - Please consider reducing Pantoprazole dose towards weaning. No history of fills prior to surgery and admission. 2 - Please consider a vitamin D level, given no History, to assess need to continue therapy/supplement. 3 - Please consider a lipid profile to asses need for a statin to reduce present/future medication load. Date Date of Note:: 07/08/24 Provider Comments Provider responsibility Provider Comments to Recommendations by Pharmacy: Agree Surveillance (Do Not Edit) Send communication to [facility] director: Yes Documented by User: Dr. New Bear MD 07/08/24 15:26 TCU RX Drug Regimen Review Surveillance (Do Not Edit) Send communication to TCU director: Yes 07/08/24 1509 <Electronically signed by Lupe quesada> Date _ Lupe Garces 07/08/24 1526 <Electronically signed by New Rodgers> Cosigner Signature (if applicable): Date New Bear MD CC: ~ Signed [facility] Work Phone: [phone] 302-983005-02-2025 Consult note [facility] Medical Records Department [address] [place] [id number] Counseling Note - Pharmacy 07/08/24 1500 MR#: [id number] Acct: [id number] Name: AZALEA MOTT Rep #:[id number] : 1950 74 From: Lupe Garces PCP: Dr. Navdeep Ulloa MD Status:A DM IN Y Location: [place] [address] Documented by User: Lupe Garces 07/08/24 15:09 TCU RX Drug Regimen Review Subjective/Objective Subjective/Objective: Subjective: 74 year old female with below past medical history underwent right total hip arthroplasty 06/30/[address] Gibbons ([facility]), postoperative course complicatedby atrial fibrillation with RVR, admitted to TCU with debility, here for rehabilitation, strengthening, prior to discharge home with . Objective: Allergies No Known Allergies Allergy Current Medications Generic Name Dose Route Start Last Admin Trade Name Freq PRN Reason Stop Dose Admin Acetaminophen 1,000 mg 07/06/24 22:00 07/08/24 13:19 Acetaminophen 500 Mg Tablet PO 1,000 mg Q8 MEI Administration Apixaban 5 mg 07/06/24 22:00 07/08/24 08:39 Apixaban 5 Mg Tablet PO 5 mg BID MEI Administration Ascorbic Acid 500 mg 07/07/24 08:00 07/08/24 08:38 Ascorbic Acid 500 Mg Tablet PO 07/25/24 08:01 500 mg DAILYCM [facility] Administration Atorvastatin Calcium 10 mg 07/06/24 22:00 07/07/24 22:04 Atorvastatin Calcium 10 Mg Tablet PO 10 mg QHS EMI Administration Cefadroxil 500 mg 07/06/24 22:00 07/08/24 08:39 Cefadroxil 500 Mg Capsule PO 07/20/24 22:01 500 mg Q12 [facility] Administration Cholecalciferol 50 mcg 07/07/24 08:00 07/08/24 08:38 Cholecalciferol (Vit D3) 25 Mcg Tablet (1,000 Units) PO 50 mcg DAILYCM [facility] Administration Diltiazem HCl 300 mg 07/07/24 10:00 07/08/24 08:34 Diltiazem Cd 300 Mg Capsule PO 300 mg DAILY [facility] Administration Protocol Ferrous Sulfate 650 mg 07/07/24 12:00 07/08/24 12:03 Ferrous Sulfate 325 Mg Tablet PO 650 mg DAILY@1200 [facility] Administration Hydrocortisone 1 applic 07/06/24 22:00 07/08/24 08:40 Hydrocortisone 2.5% Crm TOPICAL 07/11/24 22:01 1 applic BID [facility] Administration Protocol Magnesium Citrate 300 ml 07/06/24 20:42 Magnesium Citrate 300 Ml PO DAILY PRN Constipation Metoprolol Succinate 100 mg 07/07/24 10:00 07/08/24 08:34 Metoprolol(Xl)Succ 100 Mg Tablet PO 100 mg DAILY [facility] Administration Protocol Multivitamins 1 tablet 07/07/24 08:00 07/08/24 08:38 Multivitamins,Therapeutic Tablet PO 1 tablet [facility] Administration Oxycodone HCl 5 - 10 mg 07/06/24 20:42 07/08/24 13:18 Oxycodone 5 Mg Tablet PO 10 mg Q4H PRN PRN Administration Pain Score 6-10 or Pre PT/OT Pantoprazole Sodium 40 mg 07/07/24 08:00 07/08/24 08:38 Pantoprazole Sodium 40 Mg Tablet PO 40 mg 0800 [facility] Administration Polyethylene Glycol 17 gm 07/07/24 10:00 07/08/24 08:39 Polyethylene Glycol 3350 17 Gm Packet PO Not Given DAILY [facility] Senna/Docusate Sodium 2 tablet 07/06/24 22:00 07/08/24 08:39 Senna/Docusate Sodium 1 Tablet PO 2 tablet BID MEI Administration Tamsulosin HCl 0.4 mg 07/07/24 17:30 07/07/24 16:28 Tamsulosin Hcl 0.4 Mg Capsule PO 0.4 mg DAILY@1730 MEI Administration Tuberculin PPD 0.1 ml 07/14/24 10:00 Tuberculin,Purif.Prot.Deriv. 50 Tu/Ml Vial ID 07/14/24 10:01 X1 ONE Problem List (Updated 07/06/24 @ 20:[address] New Bear MD) Venous insufficiency (Acute) Hyperlipidemia, unspecified (Acute) Chronic kidney disease, stage 3a (Chronic) Iron deficiency anemia (Acute) Obesity (Acute) Obstructive sleep apnea (Acute) Essential (primary) hypertension (Acute) Atrial fibrillation with RVR (Acute) Status post total hip replacement, right (Acute) Debility (Acute) Vital Signs Temp Pulse Resp BP Pulse Ox O2 Del Method 97.2 F L 72 18 117/64 95 Room Air 07/08/24 08:31 07/08/24 11:45 07/08/24 08:31 07/08/24 08:31 07/08/24 09:29 07/08/24 09:29 Oxygen Delivery Method Room Air Weight: 100.879 kg Body Mass Index (BMI) 35.7 Sodium 137 mmol/L (133-145) 07/07/24 05:19 Potassium 4.9 mmol/L (3.3-5.1) 07/07/24 05:19 Chloride 101 mmol/L (98-108) 07/07/24 05:19 Carbon Dioxide 27.8 mmol/L (21.0-32.0) 07/07/24 05:19 Anion Gap 8 (5-15) 07/07/24 05:19 BUN 20 mg/dL (4-19) H 07/07/24 05:19 Creatinine 0.97 mg/dL (0.70-1.20) 07/07/24 05:19 Est GFR (MDRD) Non-Af 62 (>60) 07/07/24 05:19 BUN/Creatinine Ratio 21.0 RATIO (10-20) H 07/07/24 05:19 Glucose 112 mg/dL (70-99) H 07/07/24 05:19 Assessment/Plan: 1.?? Adult immunization - Up to date on Pneumovax, Covid, and Flu vaccines. Consider Zoster/Shingles Vaccine upon transition of care to Outpatient/long termcare. 2.?? Atrial fibrillation - Metoprolol succinate 100mg PO DAILY, Diltiazem CD 300mg PO DAILY, Eliquis 5mg PO BID. Continue to monitor for S/Sx of Bleeding, DVT, Hg (9.7 g/dL, increased to 10.3 g/dL); Please Continue to monitor HR (83- 140), BP (64/177 - 76/128), LFTs, and S/Sx of Orthostasis. EliquisDose is appropriate given, present renal function, and weight. 3. Hypertension - Metoprolol succinate 100mg PO DAILY, Diltiazem CD 300mg PO DAILY; Patient's vitals are stable; Please Continue to monitor HR (83-140), BP (64/177 - 76/128), LFTs, and S/Sx of Orthostasis. 3.?? Bowel - MiraLAX 17gm PO DAILY, Senna/Docusate 2 tablets PO BID, Magnesium citrate 300mL po x 1dose, then daily prn. Last BM 07/07/2024; Please continue to monitor for Constipation/Diarrhea and utilize PRN medications as needed. 4.?? DVT prophylaxis/post-op Hip replacement - Eliquis 5mg PO BID. Continue to monitor for S/Sx of Bleeding, DVT, Hg (10.3 g/dL). 5.?? GERD/Indigestion - Pantoprazole 40mg PO QHS. Please continue to monitor forS/S GERD/indigestion. Please also encourage non pharmacologic measures such as raising the bed, types of food, times ofmeals, weight loss, and stress management. Consider dose reduction towards weaning off. Patient wasnot on medication prior to surgery and admission. 6.?? Hyperlipidemia - Atorvastatin 10mg PO QHS. Please continue to monitor LFTs,and for muscle pain. Consider a Lipid profile to asses if patient needs to continue therapy or possibly a wean off. 7.?? Infection post-op prophylaxis - Cefadroxil 500mg PO Q12H through 07/20/2024.Please continue to monitor for S/S of infection around wound area/operative site, Fever diarrhea, stool discoloration, renal function and upset stomach. Patient can be on full dose of 1000 mg BID, given renal function, but dose is also appropriate for post-op prophylaxis. 8.?? Iron deficiency anemia - Ferrous sulfate 650mg daily, Vitamin C 500mg BID thru 07/25/2024.? Hemoglobin is increasing given that patient just had a major surgery. No sign of Microcytic anemia. Continue to monitor HgB (Last 07/08/2024 10.3 g/dL). 9.?? Nutrition - MVI 1 tablet PO DAILY; Evaluate dietary and Nutritional need, Side effects such asNausea/ Vomiting/Diarrhea/Constipation, and Upset stomach. 10.?Pain - Tylenol 1000mg PO Q8H scheduled, Oxycodone 5-10mg Q4H as needed for pain of (6-10). Regimen seems to bring pain levels down. Continue to Monitor forpain levels, constipation, and dizzinessincreasing risk for falls, and patient ability to participate in therapy. 11. Rash - HC 2.5% topical BID through 07/11/2024. Monitor for resolution of rash on back area and encourage full hygiene measures. 12. Urinary Retention/indwelling Catheter: Tamsulosin 0.4 mg PO DAILY. Monitor for In/out (total output/Cook 300 mL 07/08/2024), Orthostatic hypertension, andability to remove catheter. 13.?Vitamin D deficiency -Cholecalciferol (Vit D3) 50 Mcg Tablet (2,000 Units) PO DAILY.? Please consider a serum 25(OH)hydroxyvitamin D concentrations as no level found in Hx, and continue to monitor levels every 3 months Assessment/Plan for indications treated with psychotropic medications: None Medical chart and medication regimen reviewed. The following medication irregularities or issues were identified: 1 - Please consider reducing Pantoprazole dose towards weaning. No history of fills prior to surgery and admission. 2 - Please consider a vitamin D level, given no History, to assess need to continue therapy/supplement. 3 - Please consider a lipid profile to asses need for a statin to reduce present/future medication load. Date Date of Note:: 07/08/24 Provider Comments Provider responsibility Provider Comments to Recommendations by Pharmacy: Agree Surveillance (Do Not Edit) Send communication to [facility] director: Yes Documented by User: Dr. New Bear MD 07/08/24 15:26 [facility] RX Drug Regimen Review Surveillance (Do Not Edit) Send communication to [facility] director: Yes 07/08/24 1509 ey> Date _ Lupe Garces 07/08/24 1526 D> Cosigner Signature (if applicable): Date New Bear MD CC: ~ Signed [facility]04-30-2025 History and physical note Author [facility] Note Date/Time July 06, 2024 8:5 3pm [facility] Medical Records Department [address] [place] [address] History & Physical Exam 07/06/242021 MR#: [id number] Acct: [id number] Name: AZALEA MOTT Rep #:[id number] : 1950 74 From: New Bear MD PCP: Navdeep Ulloa MD Status:ADM IN Location: [facility] TCU19-1 HPI - General General Date of Admission: 07/06/24 Date of Service: 07/06/24 Chief Complaint: Here for rehabilitation. HPI Narrative AZALEA MOTT, is a 74 Female who presents with followin06/30/2024 Admit to [facility]. 06/30/2024 Dr. Gibbons performed robotic assisted right total hip arthroplasty. 07/01/2024 SCD, Eliquis 2.5mg bid x 4 days for DVT prophylaxis. Duricef 500mg bid x 2 weeks for prophylaxis. 07/02/2024 Eliquis 2.5mg bid x 4 days, then 5mg bid for Atrial fibrillation/DVT prophylaxis. Pain control. 07/02/2024 Atrial fibrillation with RVR, HR 160 to 170, Asymptomatic, Blood pressure stable. Metoprolol 5mg IVP x 3, Digoxin 125mcg given. Metoprolol 5mg IVP every 4 hours as needed for Afib with RVR. Check magnesium, consider increasing Metoprolol PO. 07/03/2024 Disposition pending medical clearance. 07/04/2024 PT recommends SNF. 50% PWB right lower extremity, posterior hip precautions. Duricef 500ng bid x 2 weeks infection prophylaxis. Pain control with PO/IV medications. 07/05/2024 Pre-[facility]ERT SNF. Await SNF. 07/06/2024 Admit to TCU with debility, here for rehabilitation, strengthening, prior to discharge home with . [facility] Medical History (Updated 07/06/24 @ 20:[address] New Bear MD) Hearing loss, left Non-smoker Sleep apnea CPAP (continuous positive airway pressure) dependence Chest pain Hypertension Home Medications ?Medication ?Instructions ?Recorded ?Last Taken ?Type Multivit W/Fluoride 1 tab PO/SL DAILY supplement 09/23/20 09/23/20 History ferrous sulfate 325 mg (65 mg 650 mg PO DAILY suppleme nt 09/23/20 09/23/20 History iron) tablet (Iron (ferrous sulfate)) ascorbic acid (vitamin C) 100 mg 500 mg PO DAILY suppl ement 09/24/20 07/06/24 08:00 History tablet (Vitamin C) calcium 600 mg (as 1 tab PO BID supplement 09/0609/23/20 History carbonate)-vitamin D3 5 mcg (200 unit) tablet cholecalciferol (vitamin D3) 50 2,000 unit PO DAILY frederick pplement 09/24/20 09/23/20 History mcg (2,000 unit) capsule (Vitamin D3) fiber 3 cap PO DAILY supplement 09/23/20 History acetaminophen 500 mg tablet 1,000 mg PO Q8H PRN PRN pa in 07/06/24 07/06/24 04:20 History apixaban 5 mg tablet (Eliquis) 5 mg PO BID Blood Thinn er 07/06/24 07/06/24 08:00 History atorvastatin 10 mg tablet 10 mg PO QHS cholesterol Unknown History cefadroxil 500 mg capsule 500 mg PO Q12H Antibiotic 0 07/06/24 Unknown History diltiazem HCl 300 mg 300 mg PO DAILY Heart 07/06/24 08:00 History capsule,extended release 24 hr docusate sodium 100 mg capsule 100 mg PO BID PRN Const ipation 07/06/24 Unknown History hydrocortisone 2.5 % topical cream 1 applic topical BI D rash 07/06/24 07/06/24 08:00 History magnesium hydroxide 400 mg/5 mL 30 ml PO DAILY PRN con stipation 07/06/24 07/05/24 05:20 History oral suspension metoprolol succinate 25 mg 100 mg PO DAILY Afib 07/06/24 08:00 History tablet,extended release 24 hr multivitamin (Daily Multi-Vitamin 1 tab PO DAILY Suppl ement 07/06/24 Unknown History tablet) oxycodone 5 mg tablet 5 - 10 mg PO Q6H PRN pain (s zeyad 07/06/24 07/06/24 10:25 History score 7-10) pantoprazole 40 mg tablet,delayed 40 mg PO DAILY GERD 07/06/24 Unknown History release polyethylene glycol 3350 17 17 g PO DAILY PRN constipa tion 07/06/24 Unknown History gram/dose oral powder Allergy/AdvReac Type Severity Reaction Status Date / Time No Known Allergies Allergy Verified 09/23/20 22:26 Family History (Updated 07/06/24 @ 20:[address] New Bear MD) Mother Hypertension Asthma Diabetes COPD (chronic obstructive pulmonary disease) Crohn's disease Father , at 82. Non-Hodgkin lymphoma CHF (congestive heart failure) CVA (cerebral vascular accident) Sister CHF (congestive heart failure) Sister Diabetes Sister Hypertension Sister Fibromyalgia Sister Kidney disease Surgical History (Updated 07/06/24 @ 20:[address] New Bear MD) History of total right hip arthroplasty History of colonoscopy History of tonsillectomy History of left mastoidectomy History of laparoscopy History of hysteroscopy History of laparoscopic cholecystectomy S/P tubal ligation Social History (Updated 07/06/24 @ 20:[address] New Bear MD) household members: spouse Smoking Status: Never smoker alcohol intake: never substance use type: does not use ROS Constitutional Constitutional: Reports weakness; Denies chills, fever(s) or weight gain ENT HEENT: Denies headache(s), nasal congestion or nasal discharge Cardiovascular Cardiovascular: Denies chest pain or palpitations Respiratory/Chest Respiratory/Chest: Denies cough, excessive phlegm production or shortness of breath with exertion Gastrointestinal Gastrointestinal: Denies abdominal pain, nausea or vomiting Genitourinary Genitourinary: Denies dysuria Musculoskeletal Musculoskeletal: Denies joint pain or joint swelling Integumentary Integumentary: Denies rash or wounds Neurologic Neurologic: Denies focal weakness, numbness or tingling Psychiatric Psychiatric: Denies anxiety, auditory hallucinations, depression, homicidal ideation or suicidal ideation Vital Signs Vital Signs Vital Signs: 07/06/24 13:48 07/06/24 15:09 Temperature 98.3 F Temperature Source Oral Pulse Rate 71 Pulse Rhythm Regular Pulse Strength Normal (2+) Respiratory Rate 18 Respiratory Effort Normal Non-Labored Respiratory Depth Normal Respiratory Pattern Normal Blood Pressure 128/65 H Blood Pressure Mean 86 Blood Pressure Source Monitor Blood Pressure Position Supine Blood Pressure Location Right Arm Pulse Ox 97 Oxygen Delivery Method Room Air Room Air Weight Weight: 100.879 kg Body Mass Index (BMI) 35.7 Physical Exam Const alert General Appearance: cooperative HEENT normocephalic Eyes PERRL and EOMs intact bilaterally Neck supple, no JVD and no carotid bruits Resp normal respiratory effort, normal air movement and clear to auscultation bilaterally Cardio regular rate and regular rhythm GI normal to inspection, nondistended, normoactive bowel sounds, non-tender and non-distended Extremity normal capillary refill General Extremity: Negative for edema Skin no rashes or lesions noted General Skin Exam: no breakdown Psych affect normal Appearance: appropriate Assessment & Plan Assessment/Plan (1) Debility: (2) Status post total hip replacement, right: (3) Atrial fibrillation with RVR: (4) Essential (primary) hypertension: (5) Obstructive sleep apnea: (6) Obesity: (7) Iron deficiency anemia: (8) Chronic kidney disease, stage 3a: (9) Hyperlipidemia, unspecified: (10) Venous insufficiency: PLAN: Plan 74 year old female with below past medical history underwent right total hip arthroplasty 06/30/[address] Gibbons ([facility]), postoperative course complicated by atrial fibrillation with RVR, admitted to TCU with debility, here for rehabilitation, strengthening, prior to discharge home with . * Debility - PT/OT. * Pain - Tylenol 1000mg q8, Oxycodone 5-10mg q4 prn pain (6-10). * Bowel - Miralax 17gm daily, senna/colace 2 tablets bid, Magnesium citrate 300mL po x 1 dose, then daily prn. * Adult immunization - Administer pneumonia vaccine, covid vaccine, flu vaccine as appropriate. * DVT prophylaxis - Eliquis. * Atrial fibrillation - Metoprolol succinate 100mg daily, Diltiazem CD 300mg daily, Eliquis 5mg bid, Schedule office appointment with Dr. Andino or Vj Gonzalez for consultation. * Iron deficiency anemia - Ferrous sulfate 650mg daily, Vitamin C 500mg bid thru 07/25/2024. * Hyperlipidemia - Atorvastatin 10mg qhs. * Infection prophylaxis - Cefadroxil 500mg q12 thru 07/20/2024. * Vitamin D deficiency - D3 50mcg daily. * Rash - HC 2.5% topical bid thru 07/11/2024. * Nutrition - MVI 1 tablet daily. * GERD - Pantoprazole 40mg daily. 07/06/242046 <Electronically signed by New Bear MD> Cosigner Signature (if applicable): CC: Dr. New Bear MD; Navdeep Ulloa MD~ Signed ADDENDUM by Dr. New Bear MD on 07/06/24 at 2052 Addendum Urinary retention - indwelling cook catheter, add Tamsulosin 0.4mg daily, voiding trials next week. 07/06/242052<Electronically signed by New Bear MD> Cosigner Signature (if applicable): cc: Dr. New Bear MD; Navdeep Ulloa MD ~* Signed [facility] Work Phone: 1(331) 931-132904-30-2025 History and physical note [facility] Medical Records Department [address] [place] [address] History & Physical Exam 07/06/242021 MR#: [id number] Acct: [id number] Name: AZALEA MOTT BUD Rep #:[id number] : 1950 74 From: New Bear MD PCP: Navdeep Ulloa MD Status:ADM IN Location: [place] [id number] HPI - General General Date of Admission: 07/06/24 Date of Service: 07/06/24 Chief Complaint: Here for rehabilitation. HPI Lex MOTT, is a 74 Female who presents with followin06/30/2024 Admit to [facility]. 06/30/2024 Dr. Gibbons performed robotic assisted right total hip arthroplasty. 07/01/2024 SCD, Eliquis 2.5mg bid x 4 days for DVT prophylaxis. Duricef 500mg bid x 2 weeks for prophylaxis. 07/02/2024 Eliquis 2.5mg bid x 4 days, then 5mg bid for Atrial fibrillation/DVT prophylaxis. Pain control. 07/02/2024 Atrial fibrillation with RVR, HR 160 to 170, Asymptomatic, Blood pressure stable. Metoprolol 5mg IVP x 3, Digoxin 125mcg given. Metoprolol 5mg IVP every 4 hours as needed for Afib with RVR. Check magnesium, consider increasing Metoprolol PO. 07/03/2024 Disposition pending medical clearance. 07/04/2024 PT recommends SNF. 50% PWB right lower extremity, posterior hip precautions. Duricef 500ng bid x 2 weeks infection prophylaxis. Pain control with PO/IV medications. 07/05/2024 Pre-CERT SNF. Await SNF. 07/06/2024 Admit to TCU with debility, here for rehabilitation, strengthening, prior to discharge home with . [facility] Medical History (Updated 07/06/24 @ 20:[address] New Bear MD) Hearing loss, left Non-smoker Sleep apnea CPAP (continuous positive airway pressure) dependence Chest pain Hypertension Home Medications ?Medication ?Instructions ?Recorded ?Last Taken ?Type Multivit W/Fluoride 1 tab PO/SL DAILY supplement 09/23/20 09/23/20 History ferrous sulfate 325 mg (65 mg 650 mg PO DAILY suppleme nt 09/23/20 09/23/20 History iron) tablet (Iron (ferrous sulfate)) ascorbic acid (vitamin C) 100 mg 500 mg PO DAILY suppl ement 09/24/20 07/06/24 08:00 History tablet (Vitamin C) calcium 600 mg (as 1 tab PO BID supplement 09/0609/23/20 History carbonate)-vitamin D3 5 mcg (200 unit) tablet cholecalciferol (vitamin D3) 50 2,000 unit PO DAILY frederick pplement 09/24/20 09/23/20 History mcg (2,000 unit) capsule (Vitamin D3) fiber 3 cap PO DAILY supplement 09/23/20 History acetaminophen 500 mg tablet 1,000 mg PO Q8H PRN PRN pa in 07/06/24 07/06/24 04:20 History apixaban 5 mg tablet (Eliquis) 5 mg PO BID Blood Thinn er 07/06/24 07/06/24 08:00 History atorvastatin 10 mg tablet 10 mg PO QHS cholesterol Unknown History cefadroxil 500 mg capsule 500 mg PO Q12H Antibiotic 0 07/06/24 Unknown History diltiazem HCl 300 mg 300 mg PO DAILY Heart 07/06/24 08:00 History capsule,extended release 24 hr docusate sodium 100 mg capsule 100 mg PO BID PRN Const ipation 07/06/24 Unknown History hydrocortisone 2.5 % topical cream 1 applic topical BI D rash 07/06/24 07/06/24 08:00 History magnesium hydroxide 400 mg/5 mL 30 ml PO DAILY PRN con stipation 07/06/24 07/05/24 05:20 History oral suspension metoprolol succinate 25 mg 100 mg PO DAILY Afib 07/06/24 08:00 History tablet,extended release 24 hr multivitamin (Daily Multi-Vitamin 1 tab PO DAILY Suppl ement 07/06/24 Unknown History tablet) oxycodone 5 mg tablet 5 - 10 mg PO Q6H PRN pain (s zeyad 07/06/24 07/06/24 10:25 History score 7-10) pantoprazole 40 mg tablet,delayed 40 mg PO DAILY GERD 07/06/24 Unknown History release polyethylene glycol 3350 17 17 g PO DAILY PRN constipa tion 07/06/24 Unknown History gram/dose oral powder Allergy/AdvReac Type Severity Reaction Status Date / Time No Known Allergies Allergy Verified 09/23/20 22:26 Family History (Updated 07/06/24 @ 20:[address] New Bear MD) Mother Hypertension Asthma Diabetes COPD (chronic obstructive pulmonary disease) Crohn's disease Father , at 82. Non-Hodgkin lymphoma CHF (congestive heart failure) CVA (cerebral vascular accident) Sister CHF (congestive heart failure) Sister Diabetes Sister Hypertension Sister Fibromyalgia Sister Kidney disease Surgical History (Updated 07/06/24 @ 20:[address] New Bear MD) History of total right hip arthroplasty History of colonoscopy History of tonsillectomy History of left mastoidectomy History of laparoscopy History of hysteroscopy History of laparoscopic cholecystectomy S/P tubal ligation Social History (Updated 07/06/24 @ 20:[address] New Bear MD) household members: spouse Smoking Status: Never smoker alcohol intake: never substance use type: does not use ROS Constitutional Constitutional: Reports weakness; Denies chills, fever(s) or weight gain ENT HEENT: Denies headache(s), nasal congestion or nasal discharge Cardiovascular Cardiovascular: Denies chest pain or palpitations Respiratory/Chest Respiratory/Chest: Denies cough, excessive phlegm production or shortness of breath with exertion Gastrointestinal Gastrointestinal: Denies abdominal pain, nausea or vomiting Genitourinary Genitourinary: Denies dysuria Musculoskeletal Musculoskeletal: Denies joint pain or joint swelling Integumentary Integumentary: Denies rash or wounds Neurologic Neurologic: Denies focal weakness, numbness or tingling Psychiatric Psychiatric: Denies anxiety, auditory hallucinations, depression, homicidal ideation or suicidal ideation Vital Signs Vital Signs Vital Signs: 07/06/24 13:48 07/06/24 15:09 Temperature 98.3 F Temperature Source Oral Pulse Rate 71 Pulse Rhythm Regular Pulse Strength Normal (2+) Respiratory Rate 18 Respiratory Effort Normal Non-Labored Respiratory Depth Normal Respiratory Pattern Normal Blood Pressure 128/65 H Blood Pressure Mean 86 Blood Pressure Source Monitor Blood Pressure Position Supine Blood Pressure Location Right Arm Pulse Ox 97 Oxygen Delivery Method Room Air Room Air Weight Weight: 100.879 kg Body Mass Index (BMI) 35.7 Physical Exam Const alert General Appearance: cooperative HEENT normocephalic Eyes PERRL and EOMs intact bilaterally Neck supple, no JVD and no carotid bruits Resp normal respiratory effort, normal air movement and clear to auscultation bilaterally Cardio regular rate and regular rhythm GI normal to inspection, nondistended, normoactive bowel sounds, non-tender and non-distended Extremity normal capillary refill General Extremity: Negative for edema Skin no rashes or lesions noted General Skin Exam: no breakdown Psych affect normal Appearance: appropriate Assessment & Plan Assessment/Plan (1) Debility: (2) Status post total hip replacement, right: (3) Atrial fibrillation with RVR: (4) Essential (primary) hypertension: (5) Obstructive sleep apnea: (6) Obesity: (7) Iron deficiency anemia: (8) Chronic kidney disease, stage 3a: (9) Hyperlipidemia, unspecified: (10) Venous insufficiency: PLAN: Plan 74 year old female with below past medical history underwent right total hip arthroplasty 06/30/2024with Dr. Gibbons ([facility]), postoperative course complicated by atrial fibrillation with RVR, admitted to TCU with debility, here for rehabilitation, strengthening, prior to discharge home with . * Debility - PT/OT. * Pain - Tylenol 1000mg q8, Oxycodone 5-10mg q4 prn pain (6-10). * Bowel - Miralax 17gm daily, senna/colace 2 tablets bid, Magnesium citrate 300mL po x 1 dose, thendaily prn. * Adult immunization - Administer pneumonia vaccine, covid vaccine, flu vaccine as appropriate. * DVT prophylaxis - Eliquis. * Atrial fibrillation - Metoprolol succinate 100mg daily, Diltiazem CD 300mg daily, Eliquis 5mg bid, Schedule office appointment with Dr. Andino or Vj Gonzalez for consultation. * Iron deficiency anemia - Ferrous sulfate 650mg daily, Vitamin C 500mg bid thru 07/25/2024. * Hyperlipidemia - Atorvastatin 10mg qhs. * Infection prophylaxis - Cefadroxil 500mg q12 thru 07/20/2024. * Vitamin D deficiency - D3 50mcg daily. * Rash - HC 2.5% topical bid thru 07/11/2024. * Nutrition - MVI 1 tablet daily. * GERD - Pantoprazole 40mg daily. 07/06/242046 Cosigner Signature (if applicable): CC: Dr. New Bear MD; Navdeep Ulloa MD~ Signed ADDENDUM by Dr. New Bear MD on 07/06/24 at 2052 Addendum Urinary retention - indwelling cook catheter, add Tamsulosin 0.4mg daily, voiding trials next week. 07/06/242052 Cosigner Signature (if applicable): cc: Dr. New Bear MD; Navdeep Ulloa MD ~* Signed [facility]04-30-2025 [facility] Medical Records Department [address] [place] [address] History Physical Exam 07/06/242021 MR#: [id number] Acct: [id number] Name: AZALEA MOTT Rep #: [id number] : 1950 74 From: New Bear MD PCP: Navdeep Ulloa MD Status:ADM IN Location: [place] [address] HPI - General General Date of Admission: 07/06/24 Date of Service: 07/06/24 Chief Complaint: Here for rehabilitation. HPI Narrative AZALEA MOTT, is a 74 Female who presents with followin06/30/2024 Admit to [facility]. 06/30/2024 Dr. Gibbons performed robotic assisted right total hip arthroplasty. 07/01/2024 SCD, Eliquis 2.5mg bid x 4 days for DVT prophylaxis. Duricef 500mg bid x 2 weeks for prophylaxis. 07/02/2024 Eliquis 2.5mg bid x 4 days, then 5mg bid for Atrial fibrillation/DVT prophylaxis. Pain control. 07/02/2024 Atrial fibrillation with RVR, HR 160 to 170, Asymptomatic, Blood pressure stable. Metoprolol 5mg IVP x 3, Digoxin 125mcg given. Metoprolol 5mg IVP every 4 hours as needed for Afib with RVR. Check magnesium, consider increasing Metoprolol PO. 07/03/2024 Disposition pending medical clearance. 07/04/2024 PT recommends SNF. 50% PWB right lower extremity, posterior hip precautions. Duricef 500ng bid x 2 weeks infection prophylaxis. Pain control with PO/IV medications. 07/05/2024 Pre-CERT SNF. Await SNF. 07/06/2024 Admit to TCU with debility, here for rehabilitation, strengthening, prior to discharge home with . [facility] Medical History (Updated 07/06/24 @ 20:[address] New Bear MD) Hearing loss, left Non-smoker Sleep apnea CPAP (continuous positive airway pressure) dependence Chest pain Hypertension Home Medications ???Medication ???Instructions ???Recorded ???Last Taken ???Type Multivit W/Fluoride 1 tab PO/SL DAILY supplement 09/2309/23/20 History ferrous sulfate 325 mg (65 mg 650 mg PO DAILY supplement 1 09/23/20 History iron) tablet (Iron (ferrous sulfate)) ascorbic acid (vitamin C) 100 mg 500 mg PO DAILY supplement 1 07/06/24 08:00 History tablet (Vitamin C) calcium 600 mg (as 1 tab PO BID supplement 09/24/20 0 09/23/20 History carbonate)-vitamin D3 5 mcg (200 unit) tablet cholecalciferol (vitamin D3) 50 2,000 unit PO DAILY supplement 09/23/20 History mcg (2,000 unit) capsule (Vitamin D3) fiber 3 cap PO DAILY supplement 09/24/20 09/23/20 History acetaminophen 500 mg tablet 1,000 mg PO Q8H PRN PRN pain 07/0607/06/24 04:20 History apixaban 5 mg tablet (Eliquis) 5 mg PO BID Blood Thinner 07/06/24 07/06/24 08:00 History atorvastatin 10 mg tablet 10 mg PO QHS cholesterol 07/06/24 Unknown History cefadroxil 500 mg capsule 500 mg PO Q12H Antibiotic 5 Unknown History diltiazem HCl 300 mg 300 mg PO DAILY Heart 07/06/24 08:00 History capsule,extended release 24 hr docusate sodium 100 mg capsule 100 mg PO BID PRN Constipation Unknown History hydrocortisone 2.5 % topical cream 1 applic topical BID rash 07/06/24 08:00 History magnesium hydroxide 400 mg/5 mL 30 ml PO DAILY PRN constipation 07/05/24 05:20 History oral suspension metoprolol succinate 25 mg 100 mg PO DAILY Afib 07/06/2406/09 08:00 History tablet,extended release 24 hr multivitamin (Daily Multi-Vitamin 1 tab PO DAILY Supplement 5 Unknown History tablet) oxycodone 5 mg tablet 5 - 10 mg PO Q6H PRN pain (scale 0 4/30/25 04/30/25 10:25 History score 7-10) pantoprazole 40 mg tablet,delayed 40 mg PO DAILY GERD 07/06/24 Unkn own History release polyethylene glycol 3350 17 17 g PO DAILY PRN constipation Unknown History gram/dose oral powder Allergy/AdvReac Type Severity Reaction Status Date / Time No Known Allergies Allergy Verified 09/23/20 22:26 Family History (Updated 07/06/24 @ 20:[address] New Bear MD) Mother Hypertension Asthma Diabetes COPD (chronic obstructive pulmonary disease) Crohn's disease Father , at 82. Non-Hodgkin lymphoma CHF (congestive heart failure) CVA (cerebral vascular accident) Sister CHF (congestive heart failure) Sister Diabetes Sister Hypertension Sister Fibromyalgia Sister Kidney disease Surgical History (Updated 07/06/24 @ 20:[address] New Bear MD) History of total right hip arthroplasty History of colonoscopy History of tonsillectomy History of left mastoidectomy History of laparoscopy History of hysteroscopy History of laparoscopic cholecystectomy S/P tubal ligation Social History (Updated 07/06/24 @ 20:[address] New Bear MD) household members: spouse Smoking Status: Never smoker alcohol intake: never substance use type: does not use ROS Constitutional Constitutional: (more content not included)...[facility] 07-06-2024 Evaluation note* Diagnosis Onset Date Resolution Status Admit Date Atrial fibrillation with RVR acute July 06, 2024 1:28pm Debility acute July 06 1:28pm Essential (primary) hypertension acu te July 06, 2024 1:28pm Hyperlipidemia, unspecified acute July 06, 2024 1:28pm Iron deficiency anemia acute Ap ril 2024 1:28pm Obesity acute July 06 1:28pm Obstructive sleep apnea acute A pril 2024 1:28pm Status post total hip replacement, right acute July 06, 2 025 1:28pm Venous insufficiency acute Apri l 2024 1:28pm Chronic kidney disease, stage 3a chr onic July 06, 2024 1:28pm [facility] Work Phone: 1(464) 199-774204-30-2025 Evaluation note* Diagnosis Onset Date Resolution Status Admit Date Debility acute July 06 1:28pm Iron deficiency anemia acute Ap ril 2024 1:28pm Obesity acute July 06 1:28pm Venous insufficiency acute Apri l 2024 1:28pm Atrial fibrillation with RVR chronic July 06, 2024 1:28pm Chronic kidney disease, stag e 3a chronic July 06, 2024 1:28pm Essential (primary) hypertension chronic July 06, 2024 1:28pm Hyperlipidemia, unspecified chronic July 06, 2024 1:28pm Obstructive sleep apnea chronic A pril 2024 1:28pm Status post total hip replacement, right resolved July 06, 1:28pm Bilateral lower extremity edema acut e August 11, 2024 10:37am Hypertension chronic August 11 10:37am Paroxysmal atrial fibrillation chron ic August 11, 2024 10:37am Status post right hip replacement resolved August 11, 2024 1 0:37am [facility] Work Phone: 1(600) 533-189804-30-2025 NoteHNO ID: [id number] Author: BASIA ESTRADA RN Service: Care Management Author Type: Registered Nurse Type: Care Mgt Progress Note Filed: 07/06/2024 08:58 Note Text: CARE MANAGEMENT DISCHARGE NOTE SERVICE DATE: July 06, 2024 SERVICE TIME: 8:56 AM Admission Date: 06/30/2024 LOS: 4 days Discharge Arrangement Discharge Arrangement: [facility] Facility Was an expedited discharge program used?: No Services Arranged Medical Services: Other: See Comment [facility] Care[facility] Assessment Caregiver is ready, willing and able to meet the patient's needs as recommended by the inter-professional team: Yes Name of Caregiver: [facility] Transportation Arrangements Transportation Arrangements: Ambulance Transportation Agency and Phone #:: [facility] [phone] Date of Trip: 07/06/24 Time of Trip: 1100 Type of Service: BLS Non-emergency Is Patient Medicaid Pending?: No Was transportation financial coverage discussed with family?: Patient Customer Care Associate Location: [place] Destination: [facility] Financial Care Management Responsibility: None Handoff Communication: Handoff to: Primary Care Physician, Other Caregiver Primary Care Physician Name/Phone: Navdeep Ulloa [phone] [facility] [phone] Additional Information: Discharge written for patient to go to SNF. [facility]CU has accepted. Patient agreeable to discharge plan and denies needs. Ambulance transport scheduled for 11 AM pickling grader. Bedside nurse updated. SOC sent to PCP and SNF. Discharge orders sent to [facility] via transitions. Envelope on chart with number to call report. Discharge Information Row Name Admission (Current) from 06/30/2024 in [facility] -- Phone# -- Start of Care -- SIGNATURE: Basia Estrada RN PATIENT NAME: Azalea Mott DATE: July 06, 2024 [facility]: 8:[id number] NoteHNO ID: [id number] Author: SHELLY BARRETT PA-C Service: Orthopaedic Surgery Author Type: Physician Pizza Cook Type: Progress Notes Filed: 07/06/2024 08:52 Note Text: POSTOP NOTE ORTHOPAEDIC SURGERY SERVICE DATE: 07/06/2024 SERVICE TIME: 8:24 AM IMPRESSION/PLAN: 74 year old female POD6 s/p R SYLVESTER Posterior - PT recommending SNF - Activity: 50% PWB RLE Posteiror hip precautions - Wound: Aquacel Dressing to be removed POD7 - Antibiotics: Completed 24 hours of perioperative Ancef then Duricef 500mg bid for 2 weeks - Imaging: complete - Pain control - PO and IV breakthrough - DVT prophylaxis - SCDs, Eliquis 2.5mg bid POD1-4 then resume home regimen POD5 - Afib with RVR - consult cardiology; appreciate recs - IM consult for comanagement; recs appreciated - [facility] for [facility] planning[facility] anticipate DC to [facility] today Plan of care discussed with: Provider, RN, Patient. Patient Active Hospital Problem List: S/P total right hip arthroplasty Date Noted: 07/01/2024 POST OPERATIVE COMPLICATIONS: Complicated by cardiac arrhythmia SUBJECTIVE: NAEO. Patient states that they are doing well today. Well Controlled hip pain. Denies complaints. OBJECTIVE: VITAL SIGNS: BP 131/62 Pulse (!) 59 Temp 36.2 ?C (97.2 ?F) (Temporal) Resp 18 Ht 167.6 cm (5' 6) Wt 99.3 kg (219 lb) SpO2 96% BMI 35.35 kg/m? INTAKE AND OUTPUT: Intake/Output Summary (Last 24 hours) at 07/06/2024 0850 Last data filed at 07/06/2024 0338 Gross per 24 hour Intake 480 ml Output 850 ml Net -370 ml LABS: Hemoglobin Date Value Ref Range Status 07/05/2024 9.4 (L) 11.5 - 15.5 g/dL Final 07/04/2024 9.8 (L) 11.5 - 15.5 g/dL Final Hematocrit Date Value Ref Range Status 07/05/2024 28.2 (L) 36.0 - 46.0 % Final 07/04/2024 29.4 (L) 36.0 - 46.0 % Final Platelet Count Date Value Ref Range Status 07/05/2024 256 150 - 400 k/uL Final 07/04/2024 235 150 - 400 k/uL Final WBC Date Value Ref Range Status 07/05/2024 10.06 3.70 - 11.00 k/uL Final 07/04/2024 11.04 (H) 3.70 - 11.00 k/uL Final Creatinine Date Value Ref Range Status 07/06/2024 0.93 0.58 - 0.96 mg/dL Final 07/05/2024 0.93 0.58 - 0.96 mg/dL Final Potassium Date Value Ref Range Status 07/06/2024 4.6 3.7 - 5.1 mmol/L Final 07/05/2024 5.3 (H) 3.7 - 5.1 mmol/L Final VTE Prophylaxis: Active VTE Risk Category Order: 06/30/24 143 VTE RISK CATEGORY: [place]GICAL [place]IS[place] ([place] Active VTE Medication Orders: Anticoagulant AND Antiplatelet Medications (From admission, onward) Start Dose Route Frequency Last Action Ordered Stop 07/05/24 0900 apixaban 5 mg tab(s) (ELIQUIS) (apixaban tab(s) (ELIQUIS)) 5 mg ORAL 2 TIMES DAILY Given, 07/06 0807/05/24 0714 -- Active VTE Prophylaxis Orders: 06/30/24 1430 VTE CURRENT ANTICOAG THERAPY ([place]) 06/30/24 1430 PNEUMATIC COMPRESSION SLEEVE(S) ([place], [place]) 06/30/24 1430 ACTIVITY - MOBILIZE PATIENT ([place], [place]) PHYSICAL EXAMINATION: Right Lower Extremity: Dorsalis pedis pulses palpable. Posterior tibial pulses palpable. Dorsi flexion 5/5. Plantar flexion 5/5. Extensor hallucis extension: 5/5. Sensory intact to light touch L1-S1. Dressing clean, dry, and intact. Surgical site no drainage. DATA: Diagnostic tests reviewed for today's visit: Most recent labs and imaging results. SIGNATURE: Shelly Barrett PA-C PATIENT NAME: Azalea Mott DATE: July 06, 2024 TIME: 8:50 AM The patient has undergone major orthopedic surgery and participating in therapy. Pain cannot be managed within an average of 30 MED per day. Patient requiring average of higher than 30 MED per day in order to control pain and allow patient to actively and safely participate in therapy and this is the lowest dose consistent with patient's medical condition. Non-narcotic medication options have been discussed. In addition, the patient has been advised of the benefits and risks of the opioid (including the potential for addiction). Patient demonstrated understanding of risks versus benefits.[facility] [id number] NoteHNO ID: [id number] Author: RUPERT REYES MD Service: General Internal Medicine Author Type: Physician Type: Progress Notes Filed: 07/06/2024 08:24 Note Text: INPATIENT PROGRESS NOTES Patient Name: Azalea Mott DATE of SERVICE: 07/06/2024 TIME of SERVICE: 8:05 PRIMARY SERVICE: medicine INTERVAL HPI: No nausea or vomiting. No lightheadedness or dizziness. No palpitation, had bowel movement ASSESSMENT AND PLAN: Osteoarthritis, status post right total hip arthroplasty, DVT prophylaxis with apixaban A fib/ A flutter with RVR control B-jason, cardizem and Apixaben Obstructive sleep apnea on CPAP CKD stage III avoid nephrotoxic drugs, worsening of Cr improved hypovolemia, post op Hypotension resolved Urinary retention voiding trail in 2 days at rehab Discharge to rehab PERTINENT ROS: All other reviewed and negative other than HPI. MEDICATIONS: Current Facility-Administered Medications Medication Dose Route Frequency atorvastatin 10 mg tab(s) (LIPITOR) 10 mg ORAL AT BEDTIME NaCl 0.9% iv flush bag 20 mL INTRAVENOUS PRN acetaminophen 1,000 mg tab(s) (TYLENOL) 1,000 mg ORAL q 8 H oxyCODONE IR 5-10 mg tab(s) (ROXICODONE) 5-10 mg ORAL q 3 H PRN HYDROmorphone 0.4 mg injection (DILAUDID) 0.4 mg INTRAVENOUS q 4 H PRN ondansetron orally disintegrating 4 mg tab(s) (ZOFRAN ODT) 4 mg ORAL q 6 H PRN Or ondansetron (PF) 4 mg injection (ZOFRAN) 4 mg INTRAVENOUS q 6 H PRN magnesium hydroxide 400 mg/5 mL 30 mL (MOM) 30 mL ORAL DAILY PRN bisacodyl EC 10 mg tab(s) (DULCOLAX) 10 mg ORAL DAILY aluminum-magnesium hydroxide-simethicone 200-200-20 mg/5 mL 30 mL 30 mL ORAL q 2 H PRN ferrous sulfate 325 mg tab(s) 325 mg ORAL DAILY WITH BREAKFAST ascorbic acid (vitamin C) 500 mg tab(s) (VITAMIN C) 500 mg ORAL BID w MEALS senna 17.2 mg tab(s) (SENOKOT) 17.2 mg ORAL AT BEDTIME pantoprazole DR 40 mg tab(s) (PROTONIX) 40 mg ORAL DAILY (6 AM) cephALEXin 500 mg cap(s) (KEFLEX) 500 mg ORAL q 6 H metoprolol 5 mg injection (LOPRESSOR) 5 mg INTRAVENOUS q 4 H PRN metoprolol succinate ER 100 mg tab(s) (TOPROL XL) 100 mg ORAL DAILY hydrOXYzine HCl 10 mg tab(s) (ATARAX) 10 mg ORAL q 6 H PRN apixaban 5 mg tab(s) (ELIQUIS) 5 mg ORAL BID dilTIAZem CD 300 mg cap(s) (CARDIZEM CD, CARTIA XT) 300 mg ORAL DAILY hydrocortisone topical cream 2.5% TOPICAL BID PHYSICAL EXAM: Blood pressure 131/62, pulse (!) 59, temperature 36.2 ?C (97.2 ?F), temperature source Temporal, resp. rate 18, height 167.6 cm (5' 6), weight 99.3 kg (219 lb), SpO2 96%. Body mass index is 35.35 kg/m?. GENERAL: Alert, no distress, cooperative NECK: No jugulovenous distention LUNGS: CTAB CARDIAC: IRRR ABDOMEN: Abdomen soft, non-tender, BS normal, No masses or organomegaly EXTREMITIES: no edema Exogenous Class 2 Obesity CBC: Recent Labs 07/05/24 0551 WBC 10.06 RBC 3.12* HB 9.4* HCT 28.2* PLT 256 MCV 90.4 MCH 30.1 MPV 10.7 Coags: CMP: Recent Labs 07/06/24 0555 07/05/24 0551 07/04/24 0635 NA 137 < > 137 K 4.6 < > 4.8 CHLOR 101 < > 101 CO2 29 < > 27 BUN 22* < > 21 CREAT 0.93 < > 0.89 GLUC 133* < > 131* CA 9.3 < > 8.7 MG -- -- 2.1 ANION 7* < > 9 < > = values in this interval not displayed. Cardiac Enzymes: Liver Function, Amylase, Lipase: No results for input(s): TPROT, ALB, ALT, AST, ALKPHOS, TBILI, AMYLASE, LIPASE, LACTATE in the last 24 hours. ABG's: No results for input(s): PH, PCO2, PO2, BE, HCO3, CO2CT, O2HB, COHB, MHGB, TEMP, PHTC, PCO2T, PO2T, O2AD in the last 24 hours. MG/PHOS: No results for input(s): MG, P in the last 24 hours. SIGNATURE: Rupert Reyes [facility] [id number] NoteHNO ID: [id number] Author: BASIA ESTRADA RN Service: Care Management Author Type: Registered Nurse Type: Care Mgt Progress Note Filed: 07/05/2024 15:10 Note Text: CARE MANAGEMENT PROGRESS NOTE SERVICE DATE: 07/05/2024 SERVICE TIME: 3:09 PM LOS: 3 days IMM Follow Up Copy Given: Yes Copy given to:: Patient Method: In Person PT/OT rec SNF. [facility] and has accepted but need patient to admit tomorrow. Plan for d/c tomorrow. Discussed transportation with patient and she requested medical transport be arranged. Discussed possible cost for transport. Transport arranged for 11 AM tomorrow. SIGNATURE: Basia Estrada RN PATIENT NAME: Azalea Mott DATE: July 05, 2024 TIME: 3:09 [id number] NoteHNO ID: [id number] Author: RUPERT REYES MD Service: General Internal Medicine Author Type: Physician Type: Progress Notes Filed: 07/05/2024 09:25 Note Text: INPATIENT PROGRESS NOTES Patient Name: Azalea Mott DATE of SERVICE: 07/05/2024 TIME of SERVICE: 8:24 PRIMARY SERVICE: medicine INTERVAL HPI: No nausea or vomiting. No lightheadedness or dizziness. No palpitation, no bowel movement cook was reinserted for retention ASSESSMENT AND PLAN: Osteoarthritis, status post right total hip arthroplasty, DVT prophylaxis with apixaban A fib/ A flutter with RVR control B-jason, and cardizem Change Apixaben dose Obstructive sleep apnea on CPAP CKD stage III avoid nephrotoxic drugs, worsening of Cr improved hypovolemia, post op Hypotension resolved Discussed with Cardiology and CM Possible discharge to rehab today PERTINENT ROS: All other reviewed and negative other than HPI. MEDICATIONS: Current Facility-Administered Medications Medication Dose Route Frequency atorvastatin 10 mg tab(s) (LIPITOR) 10 mg ORAL AT BEDTIME NaCl 0.9% iv flush bag 20 mL INTRAVENOUS PRN acetaminophen 1,000 mg tab(s) (TYLENOL) 1,000 mg ORAL q 8 H oxyCODONE IR 5-10 mg tab(s) (ROXICODONE) 5-10 mg ORAL q 3 H PRN HYDROmorphone 0.4 mg injection (DILAUDID) 0.4 mg INTRAVENOUS q 4 H PRN ondansetron orally disintegrating 4 mg tab(s) (ZOFRAN ODT) 4 mg ORAL q 6 H PRN Or ondansetron (PF) 4 mg injection (ZOFRAN) 4 mg INTRAVENOUS q 6 H PRN magnesium hydroxide 400 mg/5 mL 30 mL (MOM) 30 mL ORAL DAILY PRN bisacodyl EC 10 mg tab(s) (DULCOLAX) 10 mg ORAL DAILY aluminum-magnesium hydroxide-simethicone 200-200-20 mg/5 mL 30 mL 30 mL ORAL q 2 H PRN ferrous sulfate 325 mg tab(s) 325 mg ORAL DAILY WITH BREAKFAST ascorbic acid (vitamin C) 500 mg tab(s) (VITAMIN C) 500 mg ORAL BID w MEALS senna 17.2 mg tab(s) (SENOKOT) 17.2 mg ORAL AT BEDTIME pantoprazole DR 40 mg tab(s) (PROTONIX) 40 mg ORAL DAILY (6 AM) cephALEXin 500 mg cap(s) (KEFLEX) 500 mg ORAL q 6 H metoprolol 5 mg injection (LOPRESSOR) 5 mg INTRAVENOUS q 4 H PRN metoprolol succinate ER 100 mg tab(s) (TOPROL XL) 100 mg ORAL DAILY dilTIAZem 90 mg tab(s) (CARDIZEM) 90 mg ORAL q 8 H hydrOXYzine HCl 10 mg tab(s) (ATARAX) 10 mg ORAL q 6 H PRN apixaban 5 mg tab(s) (ELIQUIS) 5 mg ORAL BID PHYSICAL EXAM: Blood pressure 117/55, pulse 67, temperature 36.7 ?C (98 ?F), temperature source Temporal, resp. rate 18, height 167.6 cm (5' 6), weight 99.3 kg (219 lb), SpO2 95%. Body mass index is 35.35 kg/m?. GENERAL: Alert, no distress, cooperative NECK: No jugulovenous distention LUNGS: CTAB CARDIAC: IRRR ABDOMEN: Abdomen soft, non-tender, BS normal, No masses or organomegaly EXTREMITIES: no edema Exogenous Class 2 Obesity CBC: Recent Labs 07/05/24 0551 WBC 10.06 RBC 3.12* HB 9.4* HCT 28.2* PLT 256 MCV 90.4 MCH 30.1 MPV 10.7 Coags: CMP: Recent Labs 07/05/24 0551 07/04/24 0635 NA 137 137 K 5.3* 4.8 CHLOR 101 101 CO2 29 27 BUN 21 21 CREAT 0.93 0.89 GLUC 130* 131* CA 9.5 8.7 MG -- 2.1 ANION 7* 9 Cardiac Enzymes: Liver Function, Amylase, Lipase: No results for input(s): TPROT, ALB, ALT, AST, ALKPHOS, TBILI, AMYLASE, LIPASE, LACTATE in the last 24 hours. ABG's: No results for input(s): PH, PCO2, PO2, BE, HCO3, CO2CT, O2HB, COHB, MHGB, TEMP, PHTC, PCO2T, PO2T, O2AD in the last 24 hours. MG/PHOS: No results for input(s): MG, P in the last 24 hours. SIGNATURE: Rupert Guerrero Reyes [facility] [id number] NoteHNO ID: [id number] Author: SHELLY BARRETT PA-C Service: Orthopaedic Surgery Author Type: Physician Pizza Cook Type: Progress Notes Filed: 07/05/2024 07:43 Note Text: POSTOP NOTE ORTHOPAEDIC SURGERY SERVICE DATE: 07/05/2024 SERVICE TIME: 7:10 AM IMPRESSION/PLAN: 74 year old female POD5 s/p R SYLVESTER Posterior - PT recommending SNF - Activity: 50% PWB RLE Posteiror hip precautions - Wound: Aquacel Dressing to be removed POD7 - Antibiotics: Completed 24 hours of perioperative Ancef then Duricef 500mg bid for 2 weeks - Imaging: complete - Pain control - PO and IV breakthrough - DVT prophylaxis - SCDs, Eliquis 2.5mg bid POD1-4 then resume home regimen POD5 - Afib with RVR - consult cardiology; appreciate recs - IM consult for comanagement; recs appreciated - Case Management for discharge planning; awaiting SNF placement - Dispo: anticipate DC to SNF pending accepting facility and clearance from medicine and cardiology services Plan of care discussed with: Provider, RN, Patient. Patient Active Hospital Problem List: S/P total right hip arthroplasty Date Noted: 07/01/2024 Atrial fibrillation with RVR (HCC) Date Noted: 07/02/2024 POST OPERATIVE COMPLICATIONS: Complicated by cardiac arrhythmia SUBJECTIVE: NAEO. HR is now improved. Patient states that they are doing well today. Well Controlled hip pain. Denies cardiopulmonary symptoms. OBJECTIVE: VITAL SIGNS: BP 122/57 Pulse 79 Temp 36.7 ?C (98 ?F) (Temporal) Resp 18 Ht 167.6 cm (5' 6) Wt 99.3 kg (219 lb) SpO2 100% BMI 35.35 kg/m? INTAKE AND OUTPUT: Intake/Output Summary (Last 24 hours) at 07/05/2024 0736 Last data filed at 07/05/2024 0553 Gross per 24 hour Intake 2160 ml Output 1100 ml Net 1060 ml LABS: Hemoglobin Date Value Ref Range Status 07/05/2024 9.4 (L) 11.5 - 15.5 g/dL Final 07/04/2024 9.8 (L) 11.5 - 15.5 g/dL Final Hematocrit Date Value Ref Range Status 07/05/2024 28.2 (L) 36.0 - 46.0 % Final 07/04/2024 29.4 (L) 36.0 - 46.0 % Final Platelet Count Date Value Ref Range Status 07/05/2024 256 150 - 400 k/uL Final 07/04/2024 235 150 - 400 k/uL Final WBC Date Value Ref Range Status 07/05/2024 10.06 3.70 - 11.00 k/uL Final 07/04/2024 11.04 (H) 3.70 - 11.00 k/uL Final Creatinine Date Value Ref Range Status 07/05/2024 0.93 0.58 - 0.96 mg/dL Final 07/04/2024 0.89 0.58 - 0.96 mg/dL Final Potassium Date Value Ref Range Status 07/05/2024 5.3 (H) 3.7 - 5.1 mmol/L Final 07/04/2024 4.8 3.7 - 5.1 mmol/L Final VTE Prophylaxis: Active VTE Risk Category Order: 06/30/24 143 VTE RISK CATEGORY: SURGICAL HIGH RISK ([place], [place]) Active VTE Medication Orders: Anticoagulant AND Antiplatelet Medications (From admission, onward) Start Dose Route Frequency Last Action Ordered Stop 07/05/24 0900 apixaban 5 mg tab(s) (ELIQUIS) (apixaban tab(s) (ELIQUIS)) 5 mg ORAL 2 TIMES DAILY Ordered 07/05/24 0714 -- Active VTE Prophylaxis Orders: 06/30/24 143 VTE CURRENT ANTICOAG THERAPY ([place], [place]) 06/30/24 143 PNEUMATIC COMPRESSION [place]EV[place](S) [place] 06/30/24 1430 ACTIVITY - MOBILIZE PATIENT ([place], [place]) PHYSICAL EXAMINATION: Right Lower Extremity: Dorsalis pedis pulses palpable. Posterior tibial pulses palpable. Dorsi flexion 5/5. Plantar flexion 5/5. Extensor hallucis extension: 5/5. Sensory intact to light touch L1-S1. Dressing clean, dry, and intact. Surgical site no drainage. DATA: Diagnostic tests reviewed for today's visit: Most recent labs and imaging results. SIGNATURE: Shelly Barrett PA-C PATIENT NAME: Azalea Mott DATE: July 05, 2024 TIME: 7:40 AM The patient has undergone major orthopedic surgery and participating in therapy. Pain cannot be managed within an average of 30 MED per day. Patient requiring average of higher than 30 MED per day in order to control pain and allow patient to actively and safely participate in therapy and this is the lowest dose consistent with patient's medical condition. Non-narcotic medication options have been discussed. In addition, the patient has been advised of the benefits and risks of the opioid (including the potential for addiction). Patient demonstrated understanding of risks versus benefits.[facility] [id number] NoteHNO ID: [id number] Author: BASIA ESTRADA RN Service: Care Management Author Type: Registered Nurse Type: Care Mgt Progress Note Filed: 07/04/2024 16:08 Note Text: CARE MANAGEMENT PROGRESS NOTE SERVICE DATE: 07/04/2024 SERVICE TIME: 4:06 PM LOS: 2 days Needs Prior to Discharge: To Be Determined, Accepting Facility, Bed Availability [place] of Choice Given: Yes Level of Care Discussed: [facility] Financial Disclosure Provided: Yes Provider List: [facility] Provider list within the patient's requested geographic area shared with the patient/family: Yes of zip code: [id number] Quality and resource use metrics shared with the patient that are relevant to the patient's goals of care and treatment preferences:: Yes Metrics: Functional Status, Discharge to Community, Potentially Preventable 30-day Post Discharge Readmission Rates EMR reviewed. PT/OT rec SNF. Met with patient at bedside to discuss SNF. List provided. Patient picked out [facility] and [facility] [place]. Referrals placed. No precert needed for SNF placement. SIGNATURE: Basia Estrada RN PATIENT NAME: Azalea Mott DATE: July 04, 2024 TIME: 4:06 PMCincinnati [facility] [id number] NoteHNO ID: [id number] Author: RUPERT REYES MD Service: General Internal Medicine Author Type: Physician Type: Progress Notes Filed: 07/04/2024 10:37 Note Text: INPATIENT PROGRESS NOTES Patient Name: Azalea Mott DATE of SERVICE: 07/04/2024 TIME of SERVICE: 7:42 PRIMARY SERVICE: medicine INTERVAL HPI: No nausea or vomiting. No lightheadedness or dizziness. No palpitation, ASSESSMENT AND PLAN: Osteoarthritis, status post right total hip arthroplasty, DVT prophylaxis with apixaban A fib/ A flutter with RVR increase B-jason, and cardizem Obstructive sleep apnea on CPAP CKD stage III avoid nephrotoxic drugs, worsening of Cr improved hypovolemia, post op Hypotension resolved PERTINENT ROS: All other reviewed and negative other than HPI. MEDICATIONS: Current Facility-Administered Medications Medication Dose Route Frequency atorvastatin 10 mg tab(s) (LIPITOR) 10 mg ORAL AT BEDTIME NaCl 0.9% iv flush bag 20 mL INTRAVENOUS PRN acetaminophen 1,000 mg tab(s) (TYLENOL) 1,000 mg ORAL q 8 H oxyCODONE IR 5-10 mg tab(s) (ROXICODONE) 5-10 mg ORAL q 3 H PRN HYDROmorphone 0.4 mg injection (DILAUDID) 0.4 mg INTRAVENOUS q 4 H PRN ondansetron orally disintegrating 4 mg tab(s) (ZOFRAN ODT) 4 mg ORAL q 6 H PRN Or ondansetron (PF) 4 mg injection (ZOFRAN) 4 mg INTRAVENOUS q 6 H PRN magnesium hydroxide 400 mg/5 mL 30 mL (MOM) 30 mL ORAL DAILY PRN bisacodyl EC 10 mg tab(s) (DULCOLAX) 10 mg ORAL DAILY aluminum-magnesium hydroxide-simethicone 200-200-20 mg/5 mL 30 mL 30 mL ORAL q 2 H PRN ferrous sulfate 325 mg tab(s) 325 mg ORAL DAILY WITH BREAKFAST ascorbic acid (vitamin C) 500 mg tab(s) (VITAMIN C) 500 mg ORAL BID w MEALS senna 17.2 mg tab(s) (SENOKOT) 17.2 mg ORAL AT BEDTIME pantoprazole DR 40 mg tab(s) (PROTONIX) 40 mg ORAL DAILY (6 AM) cephALEXin 500 mg cap(s) (KEFLEX) 500 mg ORAL q 6 H metoprolol 5 mg injection (LOPRESSOR) 5 mg INTRAVENOUS q 4 H PRN apixaban 2.5 mg tab(s) (ELIQUIS) 2.5 mg ORAL BID metoprolol succinate ER 100 mg tab(s) (TOPROL XL) 100 mg ORAL DAILY dilTIAZem 90 mg tab(s) (CARDIZEM) 90 mg ORAL q 8 H PHYSICAL EXAM: Blood pressure 111/59, pulse (!) 128, temperature 36.8 ?C (98.2 ?F), temperature source Temporal, resp. rate 18, height 167.6 cm (5' 6), weight 99.3 kg (219 lb), SpO2 93%. Body mass index is 35.35 kg/m?. GENERAL: Alert, no distress, cooperative NECK: No jugulovenous distention LUNGS: CTAB CARDIAC: IRRR ABDOMEN: Abdomen soft, non-tender, BS normal, No masses or organomegaly EXTREMITIES: no edema Exogenous Class 2 Obesity CBC: Recent Labs 07/04/24 0635 WBC 11.04* RBC 3.25* HB 9.8* HCT 29.4* PLT 235 MCV 90.5 MCH 30.2 MPV 10.9 Coags: CMP: Recent Labs 07/04/24 0635 NA 137 K 4.8 CHLOR 101 CO2 27 BUN 21 CREAT 0.89 GLUC 131* CA 8.7 MG 2.1 ANION 9 Cardiac Enzymes: Liver Function, Amylase, Lipase: No results for input(s): TPROT, ALB, ALT, AST, ALKPHOS, TBILI, AMYLASE, LIPASE, LACTATE in the last 24 hours. ABG's: No results for input(s): PH, PCO2, PO2, BE, HCO3, CO2CT, O2HB, COHB, MHGB, TEMP, PHTC, PCO2T, PO2T, O2AD in the last 24 hours. MG/PHOS: Recent Labs 07/04/24 0635 MG 2.1 SIGNATURE: Rupert Reyes [facility] [id number] NoteHNO ID: [id number] Author: SHELLY BARRETT PA-C Service: Orthopaedic Surgery Author Type: Physician Pizza Cook Type: Progress Notes Filed: 07/04/2024 10:02 Note Text: POSTOP NOTE ORTHOPAEDIC SURGERY SERVICE DATE: 07/04/2024 SERVICE TIME: 8:15 AM IMPRESSION/PLAN: 74 year old female POD4 s/p R SYLVESTER Posterior - PT recommending SNF - Activity: 50% PWB RLE Posteiror hip precautions - Wound: Aquacel Dressing to be removed POD7 - Antibiotics: Completed 24 hours of perioperative Ancef then Duricef 500mg bid for 2 weeks - Imaging: complete - Pain control - PO and IV breakthrough - DVT prophylaxis - SCDs, Eliquis 2.5mg bid POD1-4 then resume home regimen POD5 - Afib with RVR - consult cardiology - IM consult for comanagement; recs appreciated - Case Management for discharge planning; awaiting SNF placement - Dispo: anticipate DC to SNF pending accepting facility and medical improvement Plan of care discussed with: Provider, RN, Patient. Patient Active Hospital Problem List: S/P total right hip arthroplasty Date Noted: 07/01/2024 Atrial fibrillation with RVR (HCC) Date Noted: 07/02/2024 POST OPERATIVE COMPLICATIONS: Complicated by cardiac arrhythmia SUBJECTIVE: RN reports patient is back in afib with RVR. Cardiology has been consulted. Patient states that they are comfortable Well Controlled hip pain. Denies cardiopulmonary symptoms. OBJECTIVE: VITAL SIGNS: BP 111/59 Pulse (!) 128 Temp 36.8 ?C (98.2 ?F) (Temporal) Resp 18 Ht 167.6 cm (5' 6) Wt 99.3 kg (219 lb) SpO2 93% BMI 35.35 kg/m? INTAKE AND OUTPUT: Intake/Output Summary (Last 24 hours) at 07/04/2024 0955 Last data filed at 07/04/2024 0948 Gross per 24 hour Intake 780 ml Output 900 ml Net -120 ml LABS: Hemoglobin Date Value Ref Range Status 07/04/2024 9.8 (L) 11.5 - 15.5 g/dL Final 07/03/2024 9.8 (L) 11.5 - 15.5 g/dL Final Hematocrit Date Value Ref Range Status 07/04/2024 29.4 (L) 36.0 - 46.0 % Final 07/03/2024 28.9 (L) 36.0 - 46.0 % Final Platelet Count Date Value Ref Range Status 07/04/2024 235 150 - 400 k/uL Final 07/03/2024 197 150 - 400 k/uL Final WBC Date Value Ref Range Status 07/04/2024 11.04 (H) 3.70 - 11.00 k/uL Final 07/03/2024 15.14 (H) 3.70 - 11.00 k/uL Final Creatinine Date Value Ref Range Status 07/04/2024 0.89 0.58 - 0.96 mg/dL Final 07/02/2024 1.06 (H) 0.58 - 0.96 mg/dL Final Potassium Date Value Ref Range Status 07/04/2024 4.8 3.7 - 5.1 mmol/L Final 07/02/2024 4.5 3.7 - 5.1 mmol/L Final VTE Prophylaxis: Active VTE Risk Category Order: 06/30/24 1430 VTE RISK CATEGORY: SURGICAL HIGH RISK ([place], [place]) Active VTE Medication Orders: Anticoagulant AND Antiplatelet Medications (From admission, onward) Start Dose Route Frequency Last Action Ordered Stop 07/04/24 0900 apixaban 2.5 mg tab(s) (ELIQUIS) (apixaban tab(s) (ELIQUIS)) 2.5 mg ORAL 2 TIMES DAILY Given, 07/04 0841 07/03/24 1022 -- Active VTE Prophylaxis Orders: 06/30/24 1430 VTE CURRENT ANTICOAG THERAPY ([place], [place]) 06/30/24 1430 PNEUMATIC COMPRESSION SLEEVE(S) ([place]) 06/30/24 1430 ACTIVITY - MOBILIZE PATIENT ([place], [place]) PHYSICAL EXAMINATION: Right Lower Extremity: Dorsalis pedis pulses palpable. Posterior tibial pulses palpable. Dorsi flexion 5/5. Plantar flexion 5/5. Extensor hallucis extension: 5/5. Sensory intact to light touch L1-S1. Dressing clean, dry, and intact. Surgical site no drainage. DATA: Diagnostic tests reviewed for today's visit: Most recent labs and imaging results. SIGNATURE: Shelly Barrett PA-C PATIENT NAME: Azalea Mott DATE: July 04, 2024 TIME: 9:55 AM The patient has undergone major orthopedic surgery and participating in therapy. Pain cannot be managed within an average of 30 MED per day. Patient requiring average of higher than 30 MED per day in order to control pain and allow patient to actively and safely participate in therapy and this is the lowest dose consistent with patient's medical condition. Non-narcotic medication options have been discussed. In addition, the patient has been advised of the benefits and risks of the opioid (including the potential for addiction). Patient demonstrated understanding of risks versus benefits.[facility] [id number] NoteHNO ID: [id number] Author: RUPERT REYES MD Service: General Internal Medicine Author Type: Physician Type: Progress Notes Filed: 07/03/2024 11:26 Note Text: INPATIENT PROGRESS NOTES Patient Name: Azalea Mott DATE of SERVICE: 4.td TIME of SERVICE: 9:30 PRIMARY SERVICE: medicine INTERVAL HPI: No nausea or vomiting. No lightheadedness or dizziness. 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 MEDICATIONS: Current Facility-Administered Medications Medication Dose Route Frequency atorvastatin 10 mg tab(s) (LIPITOR) 10 mg ORAL AT BEDTIME metoprolol succinate ER 50 mg tab(s) (TOPROL XL) 50 mg ORAL DAILY NaCl 0.9% iv flush bag 20 mL INTRAVENOUS PRN acetaminophen 1,000 mg tab(s) (TYLENOL) 1,000 mg ORAL q 8 H oxyCODONE IR 5-10 mg tab(s) (ROXICODONE) 5-10 mg ORAL q 3 H PRN HYDROmorphone 0.4 mg injection (DILAUDID) 0.4 mg INTRAVENOUS q 4 H PRN ondansetron orally disintegrating 4 mg tab(s) (ZOFRAN ODT) 4 mg ORAL q 6 H PRN Or ondansetron (PF) 4 mg injection (ZOFRAN) 4 mg INTRAVENOUS q 6 H PRN magnesium hydroxide 400 mg/5 mL 30 mL (MOM) 30 mL ORAL DAILY PRN bisacodyl EC 10 mg tab(s) (DULCOLAX) 10 mg ORAL DAILY aluminum-magnesium hydroxide-simethicone 200-200-20 mg/5 mL 30 mL 30 mL ORAL q 2 H PRN ferrous sulfate 325 mg tab(s) 325 mg ORAL DAILY WITH BREAKFAST ascorbic acid (vitamin C) 500 mg tab(s) (VITAMIN C) 500 mg ORAL BID w MEALS senna 17.2 mg tab(s) (SENOKOT) 17.2 mg ORAL AT BEDTIME pantoprazole DR 40 mg tab(s) (PROTONIX) 40 mg ORAL DAILY (6 AM) cephALEXin 500 mg cap(s) (KEFLEX) 500 mg ORAL q 6 H metoprolol 5 mg injection (LOPRESSOR) 5 mg INTRAVENOUS q 4 H PRN [START ON 07/04/2024] apixaban 2.5 mg tab(s) (ELIQUIS) 2.5 mg ORAL BID dilTIAZem 60 mg tab(s) (CARDIZEM) 60 mg ORAL q 8 H PHYSICAL EXAM: Blood pressure 120/59, pulse 116, temperature 36.9 ?C (98.5 ?F), temperature source Temporal, resp. rate 22, height 167.6 cm (5' 6), weight 99.3 kg (219 lb), SpO2 97%. Body mass index is 35.35 kg/m?. GENERAL: Alert, no distress, cooperative NECK: No jugulovenous distention LUNGS: CTAB CARDIAC: IRRR ABDOMEN: Abdomen soft, non-tender, BS normal, No masses or organomegaly EXTREMITIES: no edema Exogenous Class 2 Obesity CBC: Recent Labs 07/03/24 0608 WBC 15.14* RBC 3.22* HB 9.8* HCT 28.9* PLT 197 MCV 89.8 MCH 30.4 MPV 11.0 Coags: CMP: Recent Labs 07/02/24 0934 NA 140 K 4.5 CHLOR 106 CO2 26 BUN 21 CREAT 1.06* GLUC 119* CA 8.9 MG 2.4* ANION 8 Cardiac Enzymes: Liver Function, Amylase, Lipase: No results for input(s): TPROT, ALB, ALT, AST, ALKPHOS, TBILI, AMYLASE, LIPASE, LACTATE in the last 24 hours. ABG's: No results for input(s): PH, PCO2, PO2, BE, HCO3, CO2CT, O2HB, COHB, MHGB, TEMP, PHTC, PCO2T, PO2T, O2AD in the last 24 hours. MG/PHOS: No results for input(s): MG, P in the last 24 hours. SIGNATURE: Rupert Reyes [facility] [id number] NoteHNO ID: [id number] Author: ELIGIO GIBBONS MD Service: Orthopaedic Surgery Author Type: Physician Type: Progress Notes Filed: 07/03/2024 10:24 Note Text: ORTHOPAEDIC SURGERY PROGRESS NOTE PATIENT NAME: Azalea Mott A/P: 74 year old yo female POD3 s/p R SYLVESTER Posterior - Activity: 50% PWB RLE Posteiror precautions - Wound: Aquacel Dressing to be removed POD7 - Drain: - Antibiotics: Completing 24 hours of perioperative Ancef then Duricef - Imaging: complete - Pain - PO and IV breakthrough - DVT prophylaxis - SCDs, Eliquis 2.5mg bid POD1-4 then home regimen POD5 On Tele floor due to A fib last night -no A fib currently -given metoprolol * Discharge planning - Await PT recs --> consults today - Case Management --> assessment today - Dispo: anticipate DC to home/SNF on POD 4 S: Doing well, pain well controlled, denies n/v/cp/sob VITALS: 07/03/24 0342 07/03/24 0431 07/03/24 0800 07/03/24 0815 BP: 122/64 120/59 Pulse: (!) 136 105 116 Resp: Temp: 36.7 ?C (98 ?F) 36.9 ?C (98.5 ?F) TempSrc: Oral Temporal SpO2: 94% 96% 97% Weight: Height: Intake/Output Summary (Last 24 hours) at 07/03/2024 1022 Last data filed at 07/03/2024 0300 Gross per 24 hour Intake 600 ml Output 1050 ml Net -450 ml Physical Exam: * Gen: awake, alert, converses appropriately, NAD * Resp: Unlabored on RA, no wheeze * RLE: - dressing c,d,I, small small nickel sized superior dressing - 5/5 PF, DF, EHL - SILT L4-S1 - 2+ PT pulse, toes wwp Labs: CBC: Recent Labs 07/03/24 0608 07/02/24 0714 07/01/24 0328 WBC 15.14* 15.44* 13.62* HB 9.8* 10.0* 9.9* HCT 28.9* 30.4* 29.9* PLT 197 185 190 MCV 89.8 92.4 90.9 RDWCV 12.8 12.9 12.9 COAG: No results for input(s): APTT, INR in the last 168 hours. BMP: Recent Labs 07/02/24 0934 07/02/24 0714 07/01/24 1530 07/01/24 1246 07/01/24 0328 GLUC 119* 126* -- 133* 143* NA 140 137 -- 136 135* K 4.5 4.5 4.4 4.5 4.7 CHLOR 106 106 -- 103 102 CO2 26 19* -- 25 26 ANION 8 12 -- 8 7* BUN 21 22* -- 31* 29* CREAT 1.06* 1.04* -- 1.29* 1.39* CHEM: Recent Labs 07/02/24 0934 07/02/24 0714 07/01/24 1530 07/01/24 1246 07/01/24 0328 CA 8.9 8.9 -- 8.5 8.8 MG 2.4* -- 1.7 -- -- URINALYSIS:No results for input(s): PH, SPGR, UGLUC, UBILI, UKET, UHB, UPROT, UROBIL, UWBC, SSA in the last 168 hours. Invalid input(s): LARRY Gibbons MD Associate Staff Physician [facility] Department of Orthopedic Surgery [phone] [id number] NoteHNO ID: [id number] Author: ALICIA MACIAS MD Service: Orthopaedic Surgery Author Type: Physician Type: Progress Notes Filed: 07/03/2024 11:04 Note Text: POSTOP NOTE ORTHOPAEDIC SURGERY IMPRESSION/PLAN: S/P Procedure(s) (LRB): ROBOTIC ASSISTED TOTAL HIP ARTHROPLASTY (see comments) (Right) on 06/30/2024 Physical Therapy evaluation PWB 50% RLE, posterior hip precautions DVT prophylaxis: Intermittent pneumatic compression device (IPCD) and Eliquis 2.5mg bid for POD1-4, then resume home dose of Eliquis 5mg bid if dressing dry on POD5 Pain control Antibiotics: duricef 500 mg BID x 2 weeks Case Management for discharge planning Dispo: pending medical clearance Plan of care discussed with: Provider, RN, Patient. Patient Active Hospital Problem List: S/P total right hip arthroplasty Date Noted: 07/01/2024 Atrial fibrillation with RVR (HCC) Date Noted: 07/02/2024 POST OPERATIVE COMPLICATIONS: Complicated by uneventful/none SUBJECTIVE: Patient states that they are comfortable Well Controlled hip pain. Denies incisional pain. HR currently 110, however had episode of a fib overnight OBJECTIVE: VITAL SIGNS: BP 120/59 Pulse 116 Temp 36.9 ?C (98.5 ?F) (Temporal) Resp 22 Ht 167.6 cm (5' 6) Wt 99.3 kg (219 lb) SpO2 97% BMI 35.35 kg/m? INTAKE AND OUTPUT: Intake/Output Summary (Last 24 hours) at 07/03/2024 1103 Last data filed at 07/03/2024 1000 Gross per 24 hour Intake 840 ml Output 1050 ml Net -210 ml LABS: Hemoglobin Date Value Ref Range Status 07/03/2024 9.8 (L) 11.5 - 15.5 g/dL Final 07/02/2024 10.0 (L) 11.5 - 15.5 g/dL Final Hematocrit Date Value Ref Range Status 07/03/2024 28.9 (L) 36.0 - 46.0 % Final 07/02/2024 30.4 (L) 36.0 - 46.0 % Final Platelet Count Date Value Ref Range Status 07/03/2024 197 150 - 400 k/uL Final 07/02/2024 185 150 - 400 k/uL Final WBC Date Value Ref Range Status 07/03/2024 15.14 (H) 3.70 - 11.00 k/uL Final 07/02/2024 15.44 (H) 3.70 - 11.00 k/uL Final Creatinine Date Value Ref Range Status 07/02/2024 1.06 (H) 0.58 - 0.96 mg/dL Final 07/02/2024 1.04 (H) 0.58 - 0.96 mg/dL Final Potassium Date Value Ref Range Status 07/02/2024 4.5 3.7 - 5.1 mmol/L Final 07/02/2024 4.5 3.7 - 5.1 mmol/L Final VTE Prophylaxis: Active VTE Risk Category Order: 06/30/24 1430 VTE RISK CATEGORY: [place] ([place] Active VTE Medication Orders: Anticoagulant AND Antiplatelet Medications (From admission, onward) Start Dose Route Frequency Last Action Ordered Stop 07/04/24 0900 apixaban 2.5 mg tab(s) (ELIQUIS) (apixaban tab(s) (ELIQUIS)) 2.5 mg ORAL 2 TIMES DAILY Ordered 07/03/24 1022 -- Active VTE Prophylaxis Orders: 06/30/24 1430 VTE CURRENT ANTICOAG THERAPY ([place]) 06/30/24 1430 PNEUMATIC COMPRESSION SLEEVE(S) ([place]) 06/30/24 1430 ACTIVITY - MOBILIZE PATIENT ([place]) PHYSICAL EXAMINATION: Right Lower Extremity: Dorsalis pedis pulses palpable. Posterior tibial pulses palpable. Dorsi flexion 5/5. Plantar flexion 5/5. Extensor hallucis extension: 5/5. Sensory intact to light touch L1-S1. Dressing clean, dry, and intact. Surgical site no drainage. Problem Review and Assessment: Skin and Abdominal Wall: Patient monitored, no new events overnight Cardiovascular and Vascular: Patient monitored, no new events overnight Respiratory: Patient monitored, no new events overnight Endocrine and Metabolic: Patient monitored, no new events overnight Gastrointestinal: Patient monitored, no new events overnight Genitourinary and Nephrology: Patient monitored, no new events overnight Behavioral, Cerebrovascular and Nervous: Patient monitored, no new events overnight Infectious: Patient monitored, no new events overnight DATA: Diagnostic tests reviewed for today's visit: Most recent labs and imaging results. Alicia Macias MD Orthopaedic Surgery Between 5PM to 7AM, on weekends or if urgent, please page the orthopaedic on-call resident at: [phone] [phone]) for [facility] patients [id number] for [facility] patients [address] for [facility] patients [address] [facility] patients [id number] for [facility] patients Please page 2BONE [phone]) from 5p-6a and on weekends for any issues.[facility] [id number] NoteHNO ID: [id number] Author: RUPERT REYES MD Service: General Internal Medicine Author Type: Physician Type: Progress Notes Filed: 07/02/2024 10:35 Note Text: INPATIENT PROGRESS NOTES Patient Name: Azalea Mott DATE of SERVICE: 07/02/2024 TIME of SERVICE: 9:32 PRIMARY SERVICE: medicine INTERVAL HPI: No nausea or vomiting. No lightheadedness or dizziness. ASSESSMENT AND PLAN: Osteoarthritis, status post right total hip arthroplasty, DVT prophylaxis with apixaban A fib/ A flutter with RVR stable Continue B-jason Obstructive sleep apnea on CPAP CKD stage III avoid nephrotoxic drugs, worsening of Cr due to hypovolemia, post op Hypotension resolved PERTINENT ROS: All other reviewed and negative other than HPI. MEDICATIONS: Current Facility-Administered Medications Medication Dose Route Frequency atorvastatin 10 mg tab(s) (LIPITOR) 10 mg ORAL AT BEDTIME metoprolol succinate ER 50 mg tab(s) (TOPROL XL) 50 mg ORAL DAILY NaCl 0.9% iv flush bag 20 mL INTRAVENOUS PRN acetaminophen 1,000 mg tab(s) (TYLENOL) 1,000 mg ORAL q 8 H oxyCODONE IR 5-10 mg tab(s) (ROXICODONE) 5-10 mg ORAL q 3 H PRN HYDROmorphone 0.4 mg injection (DILAUDID) 0.4 mg INTRAVENOUS q 4 H PRN ondansetron orally disintegrating 4 mg tab(s) (ZOFRAN ODT) 4 mg ORAL q 6 H PRN Or ondansetron (PF) 4 mg injection (ZOFRAN) 4 mg INTRAVENOUS q 6 H PRN magnesium hydroxide 400 mg/5 mL 30 mL (MOM) 30 mL ORAL DAILY PRN bisacodyl EC 10 mg tab(s) (DULCOLAX) 10 mg ORAL DAILY aluminum-magnesium hydroxide-simethicone 200-200-20 mg/5 mL 30 mL 30 mL ORAL q 2 H PRN ferrous sulfate 325 mg tab(s) 325 mg ORAL DAILY WITH BREAKFAST ascorbic acid (vitamin C) 500 mg tab(s) (VITAMIN C) 500 mg ORAL BID w MEALS senna 17.2 mg tab(s) (SENOKOT) 17.2 mg ORAL AT BEDTIME apixaban 2.5 mg tab(s) (ELIQUIS) 2.5 mg ORAL BID pantoprazole DR 40 mg tab(s) (PROTONIX) 40 mg ORAL DAILY (6 AM) cephALEXin 500 mg cap(s) (KEFLEX) 500 mg ORAL q 6 H PHYSICAL EXAM: Blood pressure 114/59, pulse 88, temperature 36.4 ?C (97.6 ?F), temperature source Temporal, resp. rate 18, height 167.6 cm (5' 6), weight 99.3 kg (219 lb), SpO2 97%. Body mass index is 35.35 kg/m?. GENERAL: Alert, no distress, cooperative NECK: No jugulovenous distention LUNGS: CTAB CARDIAC: IRRR ABDOMEN: Abdomen soft, non-tender, BS normal, No masses or organomegaly EXTREMITIES: no edema Exogenous Class 2 Obesity CBC: Recent Labs 07/02/24 0714 WBC 15.44* RBC 3.29* HB 10.0* HCT 30.4* PLT 185 MCV 92.4 MCH 30.4 MPV 10.8 Coags: CMP: Recent Labs 07/02/24 0934 07/02/24 0714 07/01/24 1530 NA 140 < > -- K 4.5 < > 4.4 CHLOR 106 < > -- CO2 26 < > -- BUN 21 < > -- CREAT 1.06* < > -- GLUC 119* < > -- CA 8.9 < > -- MG -- -- 1.7 ANION 8 < > -- < > = values in this interval not displayed. Cardiac Enzymes: Liver Function, Amylase, Lipase: No results for input(s): TPROT, ALB, ALT, AST, ALKPHOS, TBILI, AMYLASE, LIPASE, LACTATE in the last 24 hours. ABG's: No results for input(s): PH, PCO2, PO2, BE, HCO3, CO2CT, O2HB, COHB, MHGB, TEMP, PHTC, PCO2T, PO2T, O2AD in the last 24 hours. MG/PHOS: Recent Labs 07/01/24 1530 MG 1.7 SIGNATURE: Rupert Reyes [facility] [id number] NoteHNO ID: [id number] Author: ALICIA MACIAS MD Service: Orthopaedic Surgery Author Type: Physician Type: Progress Notes Filed: 07/02/2024 09:57 Note Text: POSTOP NOTE ORTHOPAEDIC SURGERY IMPRESSION/PLAN: S/P Procedure(s) (LRB): ROBOTIC ASSISTED TOTAL HIP ARTHROPLASTY (see comments) (Right) on 06/30/2024 Physical Therapy evaluation PWB 50% RLE, posterior hip precautions DVT prophylaxis: Intermittent pneumatic compression device (IPCD) and Eliquis 2.5mg bid for POD1-4, then resume home dose of Eliquis 5mg bid if dressing dry on POD5 Pain control Antibiotics: duricef 500 mg BID x 2 weeks Case Management for discharge planning Plan of care discussed with: Provider, RN, Patient. Patient Active Hospital Problem List: S/P total right hip arthroplasty Date Noted: 07/01/2024 POST OPERATIVE COMPLICATIONS: Complicated by uneventful/none SUBJECTIVE: Patient states that they are comfortable Well Controlled hip pain. Denies incisional pain. Mild dizziness OBJECTIVE: VITAL SIGNS: BP 114/59 Pulse 94 Temp 36.2 ?C (97.2 ?F) (Temporal) Resp 18 Ht 167.6 cm (5' 6) Wt 99.3 kg (219 lb) SpO2 97% BMI 35.35 kg/m? INTAKE AND OUTPUT: Intake/Output Summary (Last 24 hours) at 07/02/2024 0957 Last data filed at 07/02/2024 0531 Gross per 24 hour Intake -- Output 1550 ml Net -1550 ml LABS: Hemoglobin Date Value Ref Range Status 07/02/2024 10.0 (L) 11.5 - 15.5 g/dL Final 07/01/2024 9.9 (L) 11.5 - 15.5 g/dL Final Hematocrit Date Value Ref Range Status 07/02/2024 30.4 (L) 36.0 - 46.0 % Final 07/01/2024 29.9 (L) 36.0 - 46.0 % Final Platelet Count Date Value Ref Range Status 07/02/2024 185 150 - 400 k/uL Final 07/01/2024 190 150 - 400 k/uL Final WBC Date Value Ref Range Status 07/02/2024 15.44 (H) 3.70 - 11.00 k/uL Final 07/01/2024 13.62 (H) 3.70 - 11.00 k/uL Final Creatinine Date Value Ref Range Status 07/02/2024 1.04 (H) 0.58 - 0.96 mg/dL Final 07/01/2024 1.29 (H) 0.58 - 0.96 mg/dL Final Potassium Date Value Ref Range Status 07/02/2024 4.5 3.7 - 5.1 mmol/L Final 07/01/2024 4.4 3.7 - 5.1 mmol/L Final VTE Prophylaxis: Active VTE Risk Category Order: 06/30/24 1430 VTE RISK CATEGORY: [place]GICAL [place] ([place] Active VTE Medication Orders: Anticoagulant AND Antiplatelet Medications (From admission, onward) Start Dose Route Frequency Last Action Ordered Stop 07/01/24 1700 apixaban 2.5 mg tab(s) (ELIQUIS) (apixaban tab(s) (ELIQUIS)) 2.5 mg ORAL 2 TIMES DAILY Given, 07/02 0938 06/30/24 1418 -- Active VTE Prophylaxis Orders: 06/30/24 1430 VTE CURRENT ANTICOAG THERAPY ([place]) 06/30/24 1430 PNEUMATIC COMPRESSION SLEEVE(S) ([place]) 06/30/24 1430 ACTIVITY - MOBILIZE PATIENT ([place]) PHYSICAL EXAMINATION: Right Lower Extremity: Dorsalis pedis pulses palpable. Posterior tibial pulses palpable. Dorsi flexion 5/5. Plantar flexion 5/5. Extensor hallucis extension: 5/5. Sensory intact to light touch L1-S1. Dressing clean, dry, and intact. Surgical site no drainage. Problem Review and Assessment: Skin and Abdominal Wall: Patient monitored, no new events overnight Cardiovascular and Vascular: Patient monitored, no new events overnight Respiratory: Patient monitored, no new events overnight Endocrine and Metabolic: Patient monitored, no new events overnight Gastrointestinal: Patient monitored, no new events overnight Genitourinary and Nephrology: Patient monitored, no new events overnight Behavioral, Cerebrovascular and Nervous: Patient monitored, no new events overnight Infectious: Patient monitored, no new events overnight DATA: Diagnostic tests reviewed for today's visit: Most recent labs and imaging results. Alicia Macias MD Orthopaedic Surgery Between 5PM to 7AM, on weekends or if urgent, please page the orthopaedic on-call resident at: [phone]) for [facility] patients [id number] for [facility] patients [address] for [facility] patients [address] [facility] patients [address] for [facility] patients Please page 2BONE [phone]) from 5p-6a and on weekends for any issues.[facility] [id number] NoteHNO ID: [id number] Author: RUPERT REYES MD Service: General Internal Medicine Author Type: Physician Type: Progress Notes Filed: 07/01/2024 16:08 Note Text: A fib with RVR Pt given iv lopressor and po IV fluid bolus Labs ordered Will give digoxin 250 mg IV Rupert Reyes MD 07/01/2024[facility] [id number] NoteHNO ID: [id number] Author: RUPERT REYES MD Service: General Internal Medicine Author Type: Physician Type: Progress Notes Filed: 07/01/2024 10:24 Note Text: INPATIENT PROGRESS NOTES Patient Name: Azalea Mott DATE of SERVICE: 07/01/2024 TIME of SERVICE: 7:20 AM PRIMARY SERVICE: medicine INTERVAL HPI: No nausea or vomiting. No lightheadedness or dizziness. Patient did receive IV fluid bolus last night for hypotension this morning her blood pressure is still running on the low side we will repeat IV fluid bolus ASSESSMENT AND PLAN: Osteoarthritis, status post right total hip arthroplasty, DVT prophylaxis with apixaban Atrial flutter clinically remains sinus continue metoprolol Obstructive sleep apnea on CPAP CKD stage III avoid nephrotoxic drugs Hypotension postop, monitor blood pressure Possible discharge today for blood pressure improve Plan of care discussed with: Provider, RN, Patient. PERTINENT ROS: All other reviewed and negative other than HPI. MEDICATIONS: Current Facility-Administered Medications Medication Dose Route Frequency atorvastatin 10 mg tab(s) (LIPITOR) 10 mg ORAL AT BEDTIME metoprolol succinate ER 50 mg tab(s) (TOPROL XL) 50 mg ORAL DAILY ceFAZolin iv piggyback 2 g in D5W (iso-osmotic) 100 mL (ANCEF) 2 g INTRAVENOUS q 8 HR NaCl 0.9% iv flush bag 20 mL INTRAVENOUS PRN acetaminophen 1,000 mg tab(s) (TYLENOL) 1,000 mg ORAL q 8 H oxyCODONE IR 5-10 mg tab(s) (ROXICODONE) 5-10 mg ORAL q 3 H PRN HYDROmorphone 0.4 mg injection (DILAUDID) 0.4 mg INTRAVENOUS q 4 H PRN ondansetron orally disintegrating 4 mg tab(s) (ZOFRAN ODT) 4 mg ORAL q 6 H PRN Or ondansetron (PF) 4 mg injection (ZOFRAN) 4 mg INTRAVENOUS q 6 H PRN magnesium hydroxide 400 mg/5 mL 30 mL (MOM) 30 mL ORAL DAILY PRN [START ON 07/02/2024] bisacodyl EC 10 mg tab(s) (DULCOLAX) 10 mg ORAL DAILY aluminum-magnesium hydroxide-simethicone 200-200-20 mg/5 mL 30 mL 30 mL ORAL q 2 H PRN ferrous sulfate 325 mg tab(s) 325 mg ORAL DAILY WITH BREAKFAST ascorbic acid (vitamin C) 500 mg tab(s) (VITAMIN C) 500 mg ORAL BID w MEALS senna 17.2 mg tab(s) (SENOKOT) 17.2 mg ORAL AT BEDTIME apixaban 2.5 mg tab(s) (ELIQUIS) 2.5 mg ORAL BID pantoprazole DR 40 mg tab(s) (PROTONIX) 40 mg ORAL DAILY (6 AM) cephALEXin 500 mg cap(s) (KEFLEX) 500 mg ORAL q 6 H PHYSICAL EXAM: Patient Vitals for the past 24 hrs: BP Temp Temp src Pulse Resp SpO2 Height Weight 07/01/24 0720 93/61 36.4 ?C (97.5 ?F) Oral 86 16 97 % -- -- 07/01/24 0451 110/57 36.8 ?C (98.2 ?F) Oral 100 16 95 % -- -- 06/30/24 2300 103/57 36.4 ?C (97.6 ?F) Oral 66 16 100 % -- -- 06/30/24 1909 96/56 36.4 ?C (97.5 ?F) Oral 92 16 100 % -- -- 06/30/24 1617 123/105 36.4 ?C (97.5 ?F) Oral 105 18 98 % -- -- 06/30/24 1523 102/56 -- -- 93 -- 100 % -- -- 06/30/24 1435 103/59 36.4 ?C (97.5 ?F) Oral 72 16 100 % -- -- 06/30/24 1423 -- -- -- -- -- -- 167.6 cm (5' 6) 99.3 kg (219 lb) 06/30/24 1345 (!) 101/47 -- -- 116 -- 100 % -- -- 06/30/24 1330 104/55 -- -- 120 -- 99 % -- -- 06/30/24 1315 127/60 -- -- (!) 121 -- 95 % -- -- 06/30/24 1307 113/67 36.1 ?C (97 ?F) Temporal Art (!) 122 -- 96 % -- -- Body mass index is 35.35 kg/m?. GENERAL: Alert, no distress, cooperative NECK: No jugulovenous distention LUNGS: Lungs clear to auscultation, CARDIAC: Normal S1 and S2; no rubs, murmurs, or gallops ABDOMEN: Abdomen soft, non-tender, BS normal, No masses or organomegaly EXTREMITIES: no edema Exogenous Class 2 Obesity CBC: Recent Labs 07/01/248 WBC 13.62* RBC 3.29* HB 9.9* HCT 29.9* PLT 190 MCV 90.9 MCH 30.1 MPV 11.2 Coags: CMP: Recent Labs 07/01/24327 NA 135* K 4.7 CHLOR 102 CO2 26 BUN 29* CREAT 1.39* GLUC 143* CA 8.8 ANION 7* Cardiac Enzymes: Liver Function, Amylase, Lipase: No results for input(s): TPROT, ALB, ALT, AST, ALKPHOS, TBILI, AMYLASE, LIPASE, LACTATE in the last 24 hours. ABG's: No results for input(s): PH, PCO2, PO2, BE, HCO3, CO2CT, O2HB, COHB, MHGB, TEMP, PHTC, PCO2T, PO2T, O2AD in the last 24 hours. MG/PHOS: No results for input(s): MG, P in the last 24 hours. SIGNATURE: Rupert Reyes [facility] [id number] NoteHNO ID: [id number] Author: ANGELA ARANGO RN Service: Care Management Author Type: Registered Nurse Type: Care Mgt Initial Assessment Filed: 07/01/2024 10:09 Note Text: CARE MANAGEMENT: ASSESSMENT AND DISCHARGE PLAN SERVICE DATE: July 01, 2024 SERVICE TIME: 9:28 AM PCP: Navdeep Ulloa MD Primary Contact: Extended Emergency Contact Information Primary Emergency Contact: Uli Mott Address: [address] [place] [address] Mobile Relation: Spouse Admission Status: Extended Recovery Insurance Provider: MEDICARE A AND B Discharge Planning requested by: Per Department Practice Potential Transition Plans Home OT/PT Advance Directives Current Advance Directive: Health Care Power of [place]hammer Operator, Living Will In Chart: Yes Up To Date and Valid: Yes Current Living Arrangements and Support Lives with: Spouse/significant other Type of Residence: Private Residence (House) Does the patient have to climb stairs at home?: Yes, stairs outside the home (ramp for exterior steps) Support: Spouse/significant other How do you manage to accomplish the following: Independent: Ambulation, Bathe/Shower, Dress, Meals/Meal Prep, Going to the bathroom, Medication Management Needs Assistance: Transportation to appointments/community Current Services/Equipment Current Post-Acute Service(s): DME Current DME Type: Walker, Cane, Shower seat Discharge Planning Patient Goal(s): Be able to go home, General wellness [place] of Choice Explained: [place] of Choice Given: Yes Level of Care Discussed: Home Care (referral to [facility]) Are you interested in bedside delivery of your medications? Yes Discharge Planning Participant(s): Patient Patient/Family Comments: Caregiver Assessment: Caregiver is ready, willing and able to meet the patient's needs as recommended by the inter-professional team: No Caregiver needed Transport at Discharge: Transportation Arrangements: Car Needs Prior to Discharge: Needs Prior to Discharge: To Be Determined Post-Acute Discharge Plan: EMR reviewed. Patient extended recovery - s/p right total hip arthroplasty. CM met with patient to complete assessment. Patient is from home with spouse and was IPTA. DME as listed above. PT recommending [facility]. Referral to [facility]. Spouse to transport home. CM will follow. 10:09 AM [facility] is able to accept. SIGNATURE: Angela Arango RN PATIENT NAME: Azalea Mott DATE: July 01, 2024 TIME: 9:28 AMCincinnati Va Medical [id number] NoteHNO ID: [id number] Author: SHELLY BARRETT PA-C Service: Orthopaedic Surgery Author Type: Physician Pizza Cook Type: Progress Notes Filed: 07/01/2024 08:46 Note Text: POSTOP NOTE ORTHOPAEDIC SURGERY SERVICE DATE: 07/01/2024 SERVICE TIME: 7:36 AM IMPRESSION/PLAN: S/P Procedure(s) (LRB): ROBOTIC ASSISTED TOTAL HIP ARTHROPLASTY (see comments) (Right) on 06/30/2024 Physical Therapy evaluation PWB 50% RLE, posterior hip precautions DVT prophylaxis: Intermittent pneumatic compression device (IPCD) and Eliquis 2.5mg bid for POD1-4, then resume home dose of Eliquis 5mg bid if dressing dry on POD5 Pain control Antibiotics: duricef 500 mg BID x 2 weeks Case Management for discharge planning Plan of care discussed with: Provider, RN, Patient. Patient Active Hospital Problem List: No active hospital problems. POST OPERATIVE COMPLICATIONS: Complicated by uneventful/none SUBJECTIVE: Patient states that they are comfortable Well Controlled hip pain. Denies incisional pain. OBJECTIVE: VITAL SIGNS: BP 93/61 Pulse 86 Temp 36.4 ?C (97.5 ?F) (Oral) Resp 16 Ht 167.6 cm (5' 6) Wt 99.3 kg (219 lb) SpO2 97% BMI 35.35 kg/m? INTAKE AND OUTPUT: Intake/Output Summary (Last 24 hours) at 07/01/2024 0845 Last data filed at 06/30/2024 2305 Gross per 24 hour Intake 2679 ml Output 450 ml Net 2229 ml LABS: Hemoglobin Date Value Ref Range Status 07/01/2024 9.9 (L) 11.5 - 15.5 g/dL Final 06/07/2024 12.7 11.5 - 15.5 g/dL Final Hematocrit Date Value Ref Range Status 07/01/2024 29.9 (L) 36.0 - 46.0 % Final 06/07/2024 37.9 36.0 - 46.0 % Final Platelet Count Date Value Ref Range Status 07/01/2024 190 150 - 400 k/uL Final 06/07/2024 245 150 - 400 k/uL Final WBC Date Value Ref Range Status 07/01/2024 13.62 (H) 3.70 - 11.00 k/uL Final 06/07/2024 8.93 3.70 - 11.00 k/uL Final Creatinine Date Value Ref Range Status 07/01/2024 1.39 (H) 0.58 - 0.96 mg/dL Final 06/07/2024 1.00 (H) 0.58 - 0.96 mg/dL Final Potassium Date Value Ref Range Status 07/01/2024 4.7 3.7 - 5.1 mmol/L Final 06/07/2024 4.0 3.7 - 5.1 mmol/L Final VTE Prophylaxis: Active VTE Risk Category Order: 06/30/24 1430 VTE RISK CATEGORY: SURGICAL HIGH RISK ([place], [place]) Active VTE Medication Orders: Anticoagulant AND Antiplatelet Medications (From admission, onward) Start Dose Route Frequency Last Action Ordered Stop 07/01/24 1700 apixaban 2.5 mg tab(s) (ELIQUIS) (apixaban tab(s) (ELIQUIS)) 2.5 mg ORAL 2 TIMES DAILY Ordered 06/30/24 1418 -- Active VTE Prophylaxis Orders: 06/30/24 1430 VTE CUR[place] 06/30/24 1430 PNEUMATIC COMPRESSION [place]EVE(S[place] 06/30/24 1430 ACTIVITY - MOBILIZE PATIENT ([place], [place]) PHYSICAL EXAMINATION: Right Lower Extremity: Dorsalis pedis pulses palpable. Posterior tibial pulses palpable. Dorsi flexion 5/5. Plantar flexion 5/5. Extensor hallucis extension: 5/5. Sensory intact to light touch L1-S1. Dressing clean, dry, and intact. Surgical site no drainage. Problem Review and Assessment: Skin and Abdominal Wall: Patient monitored, no new events overnight Cardiovascular and Vascular: Patient monitored, no new events overnight Respiratory: Patient monitored, no new events overnight Endocrine and Metabolic: Patient monitored, no new events overnight Gastrointestinal: Patient monitored, no new events overnight Genitourinary and Nephrology: Patient monitored, no new events overnight Behavioral, Cerebrovascular and Nervous: Patient monitored, no new events overnight Infectious: Patient monitored, no new events overnight DATA: Diagnostic tests reviewed for today's visit: Most recent labs and imaging results. SIGNATURE: Shelly Barrett PA-C PATIENT NAME: Azalea Mott DATE: July 01, 2024 TIME: 8:45 AM The patient has undergone major orthopedic surgery and participating in therapy. Pain cannot be managed within an average of 30 MED per day. Patient requiring average of higher than 30 MED per day in order to control pain and allow patient to actively and safely participate in therapy and this is the lowest dose consistent with patient's medical condition. Non-narcotic medication options have been discussed. In addition, the patient has been advised of the benefits and risks of the opioid (including the potential for addiction). Patient demonstrated understanding of risks versus benefits.[facility] [id number] NoteHNO ID: [id number] Author: CHERIE GRIFFITH PA-C Service: General Surgery Author Type: Physician Pizza Cook Type: Progress Notes Filed: 06/30/2024 15:28 Note Text: POSTOP PROGRESS NOTE SERVICE DATE: 06/30/2024 SERVICE TIME: 3:26 PM Subjective CHIEF COMPLAINT: Primary osteoarthritis of right hip INTERVAL HISTORY OF PRESENT ILLNESS: This is a 74 year old female postop ROBOTIC ASSISTED TOTAL HIP ARTHROPLASTY (see comments) - Right. Objective PHYSICAL EXAM: BP 102/56 Pulse 93 Temp (Src) 97.5 (Oral) Resp 16 Ht 5' 6 (1.68m) Wt 219 lb (99.3kg) SpO2 100% BMI 35.36 kg/(m2). O2 Therapy: Nasal Cannula, Liters (Numeric Only): 2.00 Physical Exam: Right Leg: Sensation intact to light touch. Patient is able to dorsiflex and plantarflex the right ankle. Patient is able to wiggle toes. Hydrocolloid dressing dry and in place. Assessment AND Plan POSTOP PLANS: As indicated per Orthopedic services Proceed with Surgeon's post operative plan. Advised patient to reach out to nurse if issues occur. SIGNATURE: Cherie Griffith PA-C PATIENT NAME: Azalea Mott DATE: June 30, 2024 TIME: 3:26 PMCincinnati Va Medical [id number] NoteHNO ID: [id number] Author: JAVIER PERRY APRN.CRNA Service: Anesthesiology Author Type: Nurse Behavior Therapist Type: Anesthesia Procedure Notes Filed: 06/30/2024 11:06 Note Text: ANESTHESIOLOGY PROCEDURE NOTE Airway General Information Procedure Start Time/Medication Administration: 06/30/2024 10:28 AM Procedure End Time: 06/30/2024 10:28 AM Patient location during procedure: OR Timeout Performed Pre-procedure: timeout performed Consent Obtained: Yes 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 Staffing WOOL BATTING WORKER: Javier Perry APRN.WOOL BATTING WORKER Performed by: VASILIY Indications and Patient Condition Indications for airway management: anesthesia Preoxygenated: yes anesthesia circuit Patient position: sniffing Method: asleep Cricoid Pressure: No Final Airway Details Final airway type: endotracheal airway Final Endotracheal Airway: ETT Cuffed: yes Successful intubation technique: direct laryngoscopy Devices used: intubating stylet Endotracheal tube insertion site: oral Blade: Nathen Blade size: #3 ETT size (mm): 7.0 Measured from: lips Measurement (cm): 21 Placement verified by: chest auscultation and capnometry Cormack-Lehane Classification: grade I - full view of glottis Number of attempts at approach: 1 SIGNATURE: Javier Perry APRN.CRNA PATIENT NAME: Azalea Mott DATE: June 30, 2024 TIME: 11:05 AM CSN: [id number] Telephone encounter Note * Telephone Encounter - Yobani Zimmerman - 06/28/2024 2:16 PM EDT Patient called and notified of physician's response. She stated that it already looks better. She will continue to use the topical Carmex but she just wanted to keep us informed. She will call if shehas any other questions or concerns. Yobani Carter [facility]04-22-2025 Telephone encounter Note* Telephone Encounter - Yobani Zimmerman - 06/28/2024 2:16 PM EDT Images from the original note were not included. Eligio Gibbons MD You; Sandro Escobar RN; Jamal Gr PA- C1 hour ago (12:54 PM) Nope just depends what it looks like on the day of surgery [facility]04-22-2025 Miscellaneous Notes* Telephone Encounter - Yobani Zimmerman - 06/28/2024 2:16 PM EDT Patient called and notified of physician's response. She stated that it already looks better. She will continue to use the topical Carmex but she just wanted to keep us informed. She will call if shehas any other questions or concerns. Yobani Carter * Telephone Encounter - Yobani Zimmerman - 06/28/2024 2:16 PM EDT Images from the original note were not included. Eligio Gibbons MD You; Sandro Escobar RN; Jamal Gr PA- C1 hour ago (12:54 PM) Nope just depends what it looks like on the day of surgery * Telephone Encounter - Yobani Zimmerman - 06/28/2024 11:06 AM EDT Sorry, this should have been sent to your team. Yobani Carter * Telephone Encounter - Yobani Zimmerman - 06/28/2024 10:56 AM EDT Patient is scheduled for surgery on at [facility]. She has the early start of a fever blister on her upper lip. She gets these when she is stressed. She immediately started putting Carmexon it. She is hoping that this will not stop her from having surgery. She can be reached at [phone]. Yobani Carter [facility] encounterThe [facility]04[facility] Telephone encounter Note * Telephone Encounter - Yobani Zimmerman - 06/28/2024 11:06 AM EDT Sorry, this should have been sent to your team. Yobani Carter [facility]04-22-2025 Telephone encounter Note* Telephone Encounter - Yobani Zimmerman - 06/28/2024 10:56 AM EDT Patient is scheduled for surgery on at [facility]. She has the early start of a fever blister on her upper lip. She gets these when she is stressed. She immediately started putting Carmexon it. She is hoping that this will not stop her from having surgery. She can be reached at [phone]. Yobani Carter [facility]04-21-2025 Telephone encounter Note* Telephone Encounter - Sandro Escobar RN - 06/27/2024 10:53 AM EDT Patient needs to hold eliquis 3 days prior to surgery Thanks [place] Attempted to call patient. No answer. Voicemail picked up and then dropped call- unable to leave message. Sent MyChart message. [facility] Work Phone: [phone] Miscellaneous Notes* Telephone Encounter - Sandro Escobar RN - 06/27/2024 10:53 AM EDT Patient needs to hold eliquis 3 days prior to surgery Thanks [place] Attempted to call patient. No answer. Voicemail picked up and then dropped call- unable to leave message. Sent MyChart message. * Telephone Encounter - Yobani Zimmerman - 06/27/2024 10:17 AM EDT Patient is scheduled for surgery on this coming up . She was placed on 2 new medications byher gold assayer. She is not sure if she should hold these or continue on them. She would like a call back. She can be reached at [phone]. Yobani Carter documented in this encounterThe [facility]04-[facility]-2025 Telephone encounter Note * Telephone Encounter - Karo Zimmermana - 06/27/2024 10:17 AM EDT Patient is scheduled for surgery on this coming up . She was placed on 2 new medications byher gold assayer. She is not sure if she should hold these or continue on them. She would like a call back. She can be reached at [phone]. Yobani Carter [facility]04-17-2025 History of Present illness Narrative* Bobby Donald, RESIDENTIAL ASSISTANT - 06/23/2024 8:00 AM EDT RADIOLOGY SERVICE PROGRESS NOTE SERVICE DATE: 06/23/2024 SERVICE TIME: 9:19 AM PATIENT IDENTITY VERIFICATION COMPLETED USING TWO (2) STANDARD IDENTIFIERS: Name and Date of confirmed by patient verbally and Name and Date of confirmed by identification band FALL SCREENING: Has the patient had 2 falls in the last year or 1 fall with injury or currently using an Ambulatory Assistive Device (Walker, Cane, Wheelchair, Crutches, etc.)? Yes, Patient High Riskfor Falls What interventions were put in place to prevent falls during this visit? Yellow Falls Risk Wristband Applied, Offered Assistance with Transfers/Clothing, and Increased Observations by Caregivers PATIENT GENDER DATA: .female : No ALLERGIES: Reviewed and unchanged MEDICATIONS REVIEWED: Not applicable PATIENT RELEVANT IMPLANT DATA REVIEWED: Not Applicable PATIENT PRESENTS WITH AN IMPLANTABLE OR ATTACHED CORPORATE DIRECTOR: No CREATININE: Creatinine Date Value Ref Range Status 06/07/2024 1.00 (H) 0.58 - 0.96 mg/dL Final 01/18/2024 1.03 (H) 0.58 - 0.96 mg/dL Final 08/24/2023 1.05 (H) 0.58 - 0.96 mg/dL Final Estimated Glomerular Filtration Rate Date Value Ref Range Status 06/07/2024 60 >=60 mL/min/1.73m Final Comment: Estimated Glomerular Filtration Rate (eGFR) is calculated using the 2020 CKD-EPI creatinine equation. This equation utilizes serum creatinine, sex, and age as parameters. The creatinine assay has traceable calibration to isotope dilution- mass spectrometry. Refer to KDIGO guidelines for clinical interpretation. In patients with unstable renal function, e.g. those with acute kidney injury, the eGFRmay not accurately reflect actual GFR. eGFR- Date Value Ref Range Status 02/26/2021 >60 Final P.O.C.T. RESULTS: N/A June 23, [address] PERFORMED: No IV SITE: Ambulatory: A peripheral IV was started in the Right antecubital site with a Angio cath: 22 gauge. POST EXAM PIV STATUS: Discontinued PROCEDURE TYPE: NM Stress: 13.4 mCi [id number] was administered IV for Rest Imaging at 8:11 by . 35.8 mCi Aj02p-Ebnrknp was administered IV for Stress Imaging at 9:00 by mm. PATIENT DISCHARGED TO: Ambulatory patient, left NM department area. Is this a therapy: No A Diagnostic radioactive procedure has taken place, with no further precautions necessary other than routine body substance precautions. More information regarding radiation safety can be found using[employer] link: [email or web address] 20Diagnostic%20Nuclear%20Medicine%20Procedures.pdf SIGNATURE: BESSY Rm PATIENT NAME: Azalea Mott DATE: June 23, 2024 TIME: 9:19 AM PAGER/CONTACT #: documented in this encounterThe [facility] Hospital04-17-2025 NoteHNO ID: [id number] Author: BOBBY DONALD CNMT Service: Radiology Author Type: Technologist Type: Progress Notes Filed: 06/23/2024 09:20 Note Text: RADIOLOGY SERVICE PROGRESS NOTE SERVICE DATE: 06/23/2024 SERVICE TIME: 9:19 AM PATIENT IDENTITY VERIFICATION COMPLETED USING TWO (2) STANDARD IDENTIFIERS: Name and Date of confirmed by patient verbally and Name and Date of confirmed by identification band FALL SCREENING: Has the patient had 2 falls in the last year or 1 fall with injury or currently using an Ambulatory Assistive Device (Walker, Cane, Wheelchair, Crutches, etc.)? Yes, Patient High Risk for Falls What interventions were put in place to prevent falls during this visit? Yellow Falls Risk Wristband Applied, Offered Assistance with Transfers/Clothing, and Increased Observations by Caregivers PATIENT GENDER DATA: .female : No ALLERGIES: Reviewed and unchanged MEDICATIONS REVIEWED: Not applicable PATIENT RELEVANT IMPLANT DATA REVIEWED: Not Applicable PATIENT PRESENTS WITH AN IMPLANTABLE OR ATTACHED CORPORATE DIRECTOR: No CREATININE: Creatinine Date Value Ref Range Status 06/07/2024 1.00 (H) 0.58 - 0.96 mg/dL Final 01/18/2024 1.03 (H) 0.58 - 0.96 mg/dL Final 08/24/2023 1.05 (H) 0.58 - 0.96 mg/dL Final Estimated Glomerular Filtration Rate Date Value Ref Range Status 06/07/2024 60 >=60 mL/min/1.73m? Final Comment: Estimated Glomerular Filtration Rate (eGFR) is calculated using the 2020 CKD-EPI creatinine equation. This equation utilizes serum creatinine, sex, and age as parameters. The creatinine assay has traceable calibration to isotope dilution-mass spectrometry. Refer to KDIGO guidelines for clinical interpretation. In patients with unstable renal function, e.g. those with acute kidney injury, the eGFR may not accurately reflect actual GFR. eGFR- Date Value Ref Range Status 02/26/2021 >60 Final P.O.C.T. RESULTS: N/A June 23, [address] PERFORMED: No IV SITE: Ambulatory: A peripheral IV was started in the Right antecubital site with a Angio cath: 22 gauge. POST EXAM PIV STATUS: Discontinued PROCEDURE TYPE: NM Stress: 13.4 mCi [id number] was administered IV for Rest Imaging at 8:11 by . 35.8 mCi [id number]-Qkxqscm was administered IV for Stress Imaging at 9:00 by mm. PATIENT DISCHARGED TO: Ambulatory patient, left NM department area. Is this a therapy: No A Diagnostic radioactive procedure has taken place, with no further precautions necessary other than routine body substance precautions. More information regarding radiation safety can be found using this link: [email or web address] 20Diagnostic%20Nuclear%20Medicine%20Procedures.pdf SIGNATURE: BESSY Rm PATIENT NAME: Azalea Mott DATE: June 23, 2024 TIME: 9:19 AM PAGER/CONTACT #:[facility] [id number] Telephone encounter Note * Telephone Encounter - Hayley Javier RN - 06/22/2024 12:38 PM EDT Spoke to pt regarding reminder and instructions for stress test tomorrow. This included where to check in, length of test and no caffeine for 24 hours prior to test. [facility]04-16-2025 Miscellaneous Notes* Telephone Encounter - Hayley Javier RN - 06/22/2024 12:38 PM EDT Spoke to pt regarding reminder and instructions for stress test tomorrow. This included where to check in, length of test and no caffeine for 24 hours prior to test. documented in this encounterThe [facility] Hospital04-08-2025 Telephone encounter Note * Telephone Encounter - Fiorella Rodriguez RN - 06/14/2024 2:52 PM EDT Informed pt of Dr. Hidalgo message below. Pt verbalized understanding. Advised her continue monitoring her BP and HR and to reach out to our office is HR is still elevated. [facility]04-08-2025 Miscellaneous Notes* Telephone Encounter - Fiorella Rodriguez RN - 06/14/2024 2:52 PM EDT Informed pt of Dr. Hidalgo message below. Pt verbalized understanding. Advised her continue monitoring her BP and HR and to reach out to our office is HR is still elevated. * Telephone Encounter - Fiorella Rodriguez RN - 06/14/2024 2:43 PM EDT Images from the original note were not included. Please refer to Nurse Triage encounter from 06/14/2024: Taty Hidalgo MD to Karlee Stinson RN 06/14/24 1:00 PM Can increase metoprolol to 50 mg once daily which is equivalent to 2 of the 25 mg metoprolol tablets once a day. Metoprolol prescription has been adjusted to 50 mg once daily. documented in this encounterThe [facility] Hospital04-08-2025 Telephone encounter Note * Telephone Encounter - Fiorella Rodriguez RN - 06/14/2024 2:43 PM EDT Images from the original note were not included. Please refer to Nurse Triage encounter from 06/14/2024: Taty Hidalgo MD to Karlee Stinson RN 06/14/24 1:00 PM Can increase metoprolol to 50 mg once daily which is equivalent to 2 of the 25 mg metoprolol tablets once a day. Metoprolol prescription has been adjusted to 50 mg once daily. [facility]04-08-2025 Telephone encounter Note* Telephone Encounter - Karlee Stinson RN - 06/14/2024 11:[address] Hidalgo, Patient calls to report last evening HR was running 129 and into this morning 120. Asymptomatic. HRmonitored during phone call and was 63. OV notes from 06/09/2024 say if HR continues to run in the 90's to increase metoprolol succinate to 37.5 mg daily. Patient asking how long her HR should remain elevated before she starts increased dose of metoprolol. BP's have been 144/89 (HR 129), 118/75 (HR 120), and 132/84 (HR 63). Thank you, Karlee Stinson RN [facility]04-08-2025 Miscellaneous Notes* Telephone Encounter - Karlee Stinson RN - 06/14/2024 11:[address] Hidalgo, Patient calls to report last evening HR was running 129 and into this morning 120. Asymptomatic. HRmonitored during phone call and was 63. OV notes from 06/09/2024 say if HR continues to run in the 90's to increase metoprolol succinate to 37.5 mg daily. Patient asking how long her HR should remain elevated before she starts increased dose of metoprolol. BP's have been 144/89 (HR 129), 118/75 (HR 120), and 132/84 (HR 63). Thank you, Karlee Stinson RN * Telephone Encounter - Karlee Stinson RN - 06/14/2024 11:40 AM EDT Patient calls to ask about Heart rate as she reached out to gold assayer and had to leave a messageand hasn't heard back yet. Triaged patient with recommendation of see PCP in 4 hours or PCP triage.Patient already seen and referred to cardiology. Patient specifically asking about increasing metoprolol dose d/t increasing HR. Forwarding to ordering provider. Care advice reviewed with patient pipe flag symptoms with verbalized understanding. Reason for Disposition Age > 60 years (Exception: Brief heartbeat symptoms that went away and now feels well.) Answer Assessment - Initial Assessment Questions 1. DESCRIPTION: Patient reports that she has noticed her HR increasing since yesterday when monitoring BP. Last night HR 129 This Morning 120. Asymptomatic. 2. ONSET: last evening. 3. DURATION: Intermittent. 4. PATTERN: Intermittent with checking BP. Patient not able to feel it. 5. TAP: Patient doesn't feel it. 6. HEART RATE:Patient reports 120-129. Had patient check HR while on phone with this nurse and HR was 63 with BP of 132/84. 7. RECURRENT SYMPTOM: No 8. CAUSE: Patient recently diagnosed with A-flutter. 9. CARDIAC HISTORY: Recently diagnosed with A-flutter. No history of heart attack, angina, bypass surgery, angioplasty. 10. OTHER SYMPTOMS: No dizziness, chest pain, sweating, difficulty breathing. Protocols used: Heart Rate and Heartbeat [id number] documented in this encounterThe [facility] Hospital04-08-2025 Telephone encounter Note * Telephone Encounter - Karlee Stinson RN - 06/14/2024 11:40 AM EDT Patient calls to ask about Heart rate as she reached out to gold assayer and had to leave a messageand hasn't heard back yet. Triaged patient with recommendation of see PCP in 4 hours or PCP triage.Patient already seen and referred to cardiology. Patient specifically asking about increasing metoprolol dose d/t increasing HR. Forwarding to ordering provider. Care advice reviewed with patient pipe flag symptoms with verbalized understanding. Reason for Disposition Age > 60 years (Exception: Brief heartbeat symptoms that went away and now feels well.) Answer Assessment - Initial Assessment Questions 1. DESCRIPTION: Patient reports that she has noticed her HR increasing since yesterday when monitoring BP. Last night HR 129 This Morning 120. Asymptomatic. 2. ONSET: last evening. 3. DURATION: Intermittent. 4. PATTERN: Intermittent with checking BP. Patient not able to feel it. 5. TAP: Patient doesn't feel it. 6. HEART RATE:Patient reports 120-129. Had patient check HR while on phone with this nurse and HR was 63 with BP of 132/84. 7. RECURRENT SYMPTOM: No 8. CAUSE: Patient recently diagnosed with A-flutter. 9. CARDIAC HISTORY: Recently diagnosed with A-flutter. No history of heart attack, angina, bypass surgery, angioplasty. 10. OTHER SYMPTOMS: No dizziness, chest pain, sweating, difficulty breathing. Protocols used: Heart Rate and Heartbeat [id number] [facility]04-03-2025 History of Present illness Narrative* Taty Hidalgo MD - 06/09/2024 11:00 AM EDT Images from the original note were not included. [facility] [place] SECTION OF REGIONAL CARDIOLOGY OUTPATIENT VISIT DATE 06/09/2024 OUTPATIENT VISIT TYPE NEW PRIMARY CARE PHYSICIAN: Navdeep Ulloa [address] [place] [address] Patient is being seen at the request of self for preoperative CV risk assessment HISTORY OF PRESENT ILLNESS: Ms. Mott is a 74 year old female, hx of COVID, diverticulosis, hypertension, SIOBHAN, atrial flutterand RBBB noted on 06/07/2024 EKG presents for preoperative risk stratification prior to hip arthroplasty. She is accompanied by her . She denies chest pain, SOB, palpitations, orthopnea, PND, leg swelling, lightheadedness, syncope. Her physical activity is limited by her hip. ECG on 06/07/2024 showed atrial flutter HR 99 with variable conduction, RBBB. PAST MEDICAL HISTORY Diagnosis Date Cholelithiasis with acute cholecystitis with biliary obstruction 09/2020 Chronic otitis media of both ears 1955 COVID-19 01/30/2021 home antigen test Diverticulosis of colon (without mention of hemorrhage) Diverticulosis Hearing loss in left ear 03/27/2009 Hereditary and idiopathic peripheral neuropathy Hyperlipidemia LDL goal <100 01/18/2016 Hypertension, essential 01/02/2020 Obesity, Class I, BMI 30-34.9 10/25/2020 SIOBHAN (obstructive sleep apnea) 01/27/2020 Personal history of colonic polyps 10/18/2004 hyperplastic Colon polyps Unspecified hemorrhoids without mention of complication Hemorrhoids PAST SURGICAL HISTORY Procedure Laterality Date ADENOIDECTOMY PRIMARY <AGE 13 Adenoidectomy COLONOSCOPY FLX DX W/COLLJ SPEC WHEN PFRMD 10/18/2004 Colonoscopy-repeat in COLONOSCOPY FLX DX W/COLLJ SPEC WHEN PFRMD 02/13/2017 [id number]-[id number] 10 years HYSTEROSCOPY BX W/WO D&C 12/2011 endometrial polyp LAPAROSCOPIC CHOLECYSTECTOMY 09/24/2020 MASTOIDECTOMY,COMPLETE Left 1955 Mastoidectomy, left TONSILLECTOMY PRIMARY/SECONDARY <AGE 13 Tonsillectomy Social History Tobacco Use Smoking status: Never Smokeless tobacco: Never Vaping Use Vaping status: Never Used Substance Use Topics Alcohol use: No Drug use: No FAMILY HISTORY Problem Relation Age of Onset Hypertension Mother Asthma Mother Diabetes Mother COPD Mother other (crohns [Other]) Mother Cancer Father NON HODGKINS LYMPHOMA Heart Father CHF Stroke Father age 82 Heart Sister CHF other (diabetes mellitus [Other]) Sister Hypertension Sister Pneumonia Sister Fibromyalgia Sister Kidney Disease Sister Pneumonia Brother other (Covid 19 sequelae) Brother No Known Problems Brother No Known Problems Brother Diabetes Maternal Grandmother Stroke Paternal Grandfather Tuberculosis Paternal Grandfather Anesthesia Problems No Family History ALLERGIES Allergen Reactions [place] [Hydrocodone-* Other: See Comments Weird dreams. CURRENT MEDICATIONS: mupirocin (BACTROBAN) 2 % ointment two times a day for 5 days. Apply 0.5 inch with cotton swab (Q-tip) to each nostril in the morning and evening for 5 days prior to and including day of surgery. hydroCHLOROthiazide 25 mg tablet Take 1 tablet by mouth once daily. lisinopril (ZESTRIL) 10 mg tablet Take 1 tablet by mouth once daily. atorvastatin (LIPITOR) 10 mg tablet Take 1 tablet by mouth daily at bedtime. For cholesterol. CPAP CPAP Supplies, All Necessary equipment including tubing and full mask ICD G47.33 HAIR, SKIN AND NAILS, BIOTIN, ORAL Take 2 tablets by mouth once daily. diphenhydrAMINE-Acetaminophen (TYLENOL PM EXTRA STRENGTH) 25-500 mg tab At bedtime for sleep ascorbic acid (VITAMIN C ORAL) Take 1 tablet by mouth once daily. elderberry fruit (ELDERBERRY ORAL) Take 2 Doses by mouth once daily. CPAP 30 day download for And please send chin strap Auto PAP @ 5-20 cm of water with humidification. Mask (per patient preference) optional chin strap (if indicated) , filters, tubing, humidifier andlifetime supplies. TURMERIC ORAL Take by mouth once daily. With curcumin Black Cohosh 40 mg tab Take 1 tablet by mouth. Take 1 tablet every other day ferrous sulfate 325 mg (65 mg iron) tablet Take 650 mg by mouth daily with breakfast. cholecalciferol (VITAMIN D3) 50 mcg (2,000 unit) tablet Take by mouth. Fiber Cap Take 3 capsules by mouth once daily. multivitamins(DAILY MULTIVITAMIN TAB) Take one(1) tablet daily. PHYSICAL EXAMINATION: BP 120/70 Pulse 95 Ht 170.2 cm (5' 7) Wt 97.5 kg (215 lb) SpO2 96% BMI 33.67 kg/m General: Appears comfortable in no apparent cardiopulmonary distress Neck: No JVD, no bruits CVS: Irregular rhythm, S1, S2, No m/r/g Chest: CTAB Abd: Soft, nontender, no masses, BS present Ext: No pedal edema, pedal pulses 2+ bilaterally Neuro: No focal neurological deficits ASSESSMENT/PLAN: 1. Preop cardiovascular exam - ICD9: V72.81, ICD10: Z01.810 (primary diagnosis) Patient is low risk by RCRI for intermediate risk surgery. Difficult to assess functional capacity due to limitation by her hip joint. Cardiovascular examination revealed irregular rhythm. EKG showedatrial flutter HR 99, RBBB. - Obtain nuclear stress test and echocardiogram prior to providing perioperative recommendations. She has appointments for stress test and echocardiogram scheduled on 06/23/24. 2. Atrial flutter, unspecified type (HCC) - ICD9: 427.32, ICD10: I48.92 [id number] 3 - We discussed stroke prophylaxis with OAC such as Eliquis. She wishes to start this medication. 4 week samples of eliquis were provided at today's visit. - Start metoprolol succinate 25 mg p.o. daily. She is advised to monitor her heart rates which she can do with her blood pressure measuring instrument. If heart rates remain in the 90s, she is advised to increase metoprolol succinate dose to 37.5 mg once daily. She can try to achieve metoprolol succinate 50 mg once daily once her heart rate tolerates. - Pathophysiology and options for management of atrial flutter were discussed in detail with the patient including rate control, rhythm control with antiarrhythmic therapy, NIRU guided DCCV, as well as ablation. Since her surgery is scheduled for 06/30/24, NIRU cardioversion would not be an option prior to surgery as she would have to be on at least 4 weeks of uninterrupted OAC. She would like to pursue rate control at this time and continue discussions on atrial fibrillation management at her next visit. Taty Hidalgo MD, [facility] Non invasive and Sports gold assayer documented in this encounterThe [facility]04-[facility]25 NoteHNO ID: [id number] Author: TATY HIDALGO MD Service: ? Author Type: Physician Type: Progress Notes Filed: 06/24/2024 07:57 Note Text: [facility] [place] SECTION OF REGIONAL CARDIOLOGY OUTPATIENT VISIT DATE 06/09/2024 OUTPATIENT VISIT TYPE NEW PRIMARY CARE PHYSICIAN: Navdeep Ulloa [address] [place] [address] Patient is being seen at the request of self for preoperative CV risk assessment HISTORY OF PRESENT ILLNESS: Ms. Mott is a 74 year old female, hx of COVID, diverticulosis, hypertension, SIOBHAN, atrial flutter and RBBB noted on 06/07/2024 EKG presents for preoperative risk stratification prior to hip arthroplasty. She is accompanied by her . She denies chest pain, SOB, palpitations, orthopnea, PND, leg swelling, lightheadedness, syncope. Her physical activity is limited by her hip. ECG on 06/07/2024 showed atrial flutter HR 99 with variable conduction, RBBB. PAST MEDICAL HISTORY Diagnosis Date Cholelithiasis with acute cholecystitis with biliary obstruction 09/2020 Chronic otitis media of both ears 1954 COVID-19 01/30/2021 home antigen test Diverticulosis of colon (without mention of hemorrhage) Diverticulosis Hearing loss in left ear 03/27/2009 Hereditary and idiopathic peripheral neuropathy Hyperlipidemia LDL goal <100 01/18/2016 Hypertension, essential 01/02/2020 Obesity, Class I, BMI 30-34.9 10/25/2020 SIOBHAN (obstructive sleep apnea) 01/27/2020 Personal history of colonic polyps 10/18/2004 hyperplastic Colon polyps Unspecified hemorrhoids without mention of complication Hemorrhoids PAST SURGICAL HISTORY Procedure Laterality Date ADENOIDECTOMY PRIMARY Adenoidectomy COLONOSCOPY FLX DX W/COLLJ SPEC WHEN PFRMD 10/18/2004 Colonoscopy-repeat in COLONOSCOPY FLX DX W/COLLJ SPEC WHEN PFRMD 02/13/2017 OIM-Auaxj-[id number] 10 years HYSTEROSCOPY BX W/WO DANDC 12/2011 endometrial polyp LAPAROSCOPIC CHOLECYSTECTOMY 09/24/2020 MASTOIDECTOMY,COMPLETE Left 1955 Mastoidectomy, left TONSILLECTOMY PRIMARY/SECONDARY Tonsillectomy Social History Tobacco Use Smoking status: Never Smokeless tobacco: Never Vaping Use Vaping status: Never Used Substance Use Topics Alcohol use: No Drug use: No FAMILY HISTORY Problem Relation Age of Onset Hypertension Mother Asthma Mother Diabetes Mother COPD Mother other (crohns [Other]) Mother Cancer Father NON HODGKINS LYMPHOMA Heart Father CHF Stroke Father age 82 Heart Sister CHF other (diabetes mellitus [Other]) Sister Hypertension Sister Pneumonia Sister Fibromyalgia Sister Kidney Disease Sister Pneumonia Brother other (Covid 19 sequelae) Brother No Known Problems Brother No Known Problems Brother Diabetes Maternal Grandmother Stroke Paternal Grandfather Tuberculosis Paternal Grandfather Anesthesia Problems No Family History ALLERGIES Allergen Reactions [place] [Hydrocodone-* Other: See Comments Weird dreams. CURRENT MEDICATIONS: mupirocin (BACTROBAN) 2 % ointment two times a day for 5 days. Apply 0.5 inch with cotton swab (Q-tip) to each nostril in the morning and evening for 5 days prior to and including day of surgery. hydroCHLOROthiazide 25 mg tablet Take 1 tablet by mouth once daily. lisinopril (ZESTRIL) 10 mg tablet Take 1 tablet by mouth once daily. atorvastatin (LIPITOR) 10 mg tablet Take 1 tablet by mouth daily at bedtime. For cholesterol. CPAP CPAP Supplies, All Necessary equipment including tubing and full mask ICD G47.33 HAIR, SKIN AND NAILS, BIOTIN, ORAL Take 2 tablets by mouth once daily. diphenhydrAMINE-Acetaminophen (TYLENOL PM EXTRA STRENGTH) 25-500 mg tab At bedtime for sleep ascorbic acid (VITAMIN C ORAL) Take 1 tablet by mouth once daily. elderberry fruit (ELDERBERRY ORAL) Take 2 Doses by mouth once daily. CPAP 30 day download for And please send chin strap Auto PAP @ 5-20 cm of water with humidification. Mask (per patient preference) optional chin strap (if indicated) , filters, tubing, humidifier and lifetime supplies. TURMERIC ORAL Take by mouth once daily. With curcumin Black Cohosh 40 mg tab Take 1 tablet by mouth. Take 1 tablet every other day ferrous sulfate 325 mg (65 mg iron) tablet Take 650 mg by mouth daily with breakfast. cholecalciferol (VITAMIN D3) 50 mcg (2,000 unit) tablet Take by mouth. Fiber Cap Take 3 capsules by mouth once daily. multivitamins(DAILY MULTIVITAMIN TAB) Take one(1) tablet daily. PHYSICAL EXAMINATION: BP 120/70 Pulse 95 Ht 170.2 cm (5' 7) Wt 97.5 kg (215 lb) SpO2 96% BMI 33.67 kg/m? General: Appears comfortable in no apparent cardiopulmonary distress Neck: No JVD, no bruits CVS: Irregular rhythm, S1, S2, No m/r/g Chest: CTAB Abd: Soft, nontender, no masses, BS present Ext: No pedal edema, pedal pulses 2+ bilaterally Neuro: No focal neurological deficits ASSESSMENT/PLAN: 1. Preop ca (more content not included)...[facility]04-02-2025 Telephone encounter Note* Telephone Encounter - Navdeep Ulloa MD - 06/08/2024 5:26 PM EDT Noted. Preoperative examination is scheduled with Dr. Hidalgo tomorrow. [facility]04-[facility] Miscellaneous Notes* Telephone Encounter - Navdeep Ulloa MD - 06/08/2024 5:26 PM EDT Noted. Preoperative examination is scheduled with Dr. Hidalgo tomorrow. * Telephone Encounter - Raquel Ling RN - 06/08/2024 3:03 PM EDT Patient calling in and states she was told by her landing support specialist office to notify her PCP that she will be having total hip arthroplasty on 06/30/24. Patient states she has received all pre-op information that she needs and has no questions or concerns for PCP at this time. Raquel Ling RN documented in this encounterThe [facility]04-02-[facility]25 Telephone encounter Note * Telephone Encounter - Raquel Ling RN - 06/08/2024 3:03 PM EDT Patient calling in and states she was told by her landing support specialist office to notify her PCP that she will be having total hip arthroplasty on 06/30/24. Patient states she has received all pre-op information that she needs and has no questions or concerns for PCP at this time. Raquel Ling RN [facility]04-02-[facility] Telephone encounter Note* Telephone Encounter - Pattie Fernandez LSW - 06/08/2024 12:59 PM EDT Images from the original note were not included. ORTHOPAEDIC COORDINATION OF CARE Pre-Op Assessment Discharge Disposition (Planned): Home with Home Health Discharge Transportation: Car [facility] Information: Surgeon: Eligio Gibbons MD Date of surgery: 06/30/2024 Surgery location: [place] TJA clinic location: [place] Date of TJA clinic: 06/07/2024 Appts included in visit: Joint Class, PACC, Social Work, Lab and Imaging Joint being replaced: Right Hip PRIMARY CARE PHYSICIAN: Navdeep Ulloa MD OR Surgery Date: 06/30/2024 [facility] Appointment: 06/30/2024 Joint: Jointtype: Hip Side: right Health Insurance: Medicare or MEDICARE SUPPLEMENT GENERIC Primary Contact: Extended Emergency Contact Information Primary Emergency Contact: Uli Mott Address: [address] [place] [address] Mobile Relation: Spouse Have you had joint replacement surgery before?: No Social: Pre-Hospital Baseline Mental Status: Alert & Oriented Informant: Self Living Arrangement: Home Who able to assist you at home once you discharge? Spouse Are they available for at least 2 weeks? Yes Stairs: One story home 2 stairs to enter home Bedroom Location: First Bathroom Location: First Do you have problems that affect your ability to perform normal activities of daily living such as bathing, dressing, or toileting yourself? No = 0 What is your current functional status?: Perform ADLs independently Are you able to afford your medications/Food? Yes Social Drivers of Health Tobacco Use: Low Risk (06/07/2024) Patient History Smoking Tobacco Use: Never Smokeless Tobacco Use: Never Passive Exposure: Not on file Alcohol Use: Not At Risk (01/27/2024) AUDIT-C Frequency of Alcohol Consumption: Never Average Number of Drinks: Patient does not drink Frequency of Binge Drinking: Never Financial Resource Strain: Low Risk (06/08/2024) Overall Financial Resource Strain (CARDIA) Difficulty of Paying Living Expenses: Not very hard Food Insecurity: No Food Insecurity (06/08/2024) Hunger Vital Sign Worried About Running Out of Food in the Last Year: Never true Ran Out of Food in the Last Year: Never true Transportation Needs: No Transportation Needs (06/08/2024) PRAPARE - Transportation Lack of Transportation (Medical): No Lack of Transportation (Non-Medical): No Physical Activity: Inactive (01/27/2024) Exercise Vital Sign Days of Exercise per Week: 0 days Minutes of Exercise per Session: 0 min Stress: No Stress Concern Present (06/08/2024) [employer] [place] [employer] - Occupational Stress Questionnaire Feeling of Stress : Not at all Social Connections: Moderately Integrated (06/08/2024) Social Connection and Isolation Panel [NHANES] Frequency of Communication with Friends and Family: More than three times a week Frequency of Social Gatherings with Friends and Family: More than three times a week Attends Gnosticist Services: More than 4 times per year Active Member of Clubs or Organizations: No Attends Club or Organization Meetings: Never Marital Status: Intimate Partner Violence: Not At Risk (06/08/2024) Safe at Home? Fear of Current or Ex-Partner: No Emotionally Abused: No Physically Abused: No Sexually Abused: No Safe at Home?: Not on file Depression: Not at risk (06/03/2024) PHQ-2 PHQ-2 Score: 0 Housing Stability: Low Risk (06/08/2024) Housing Stability Vital Sign Unable to Pay for Housing in the Last Year: No Number of Times Moved in the Last Year: 0 Homeless in the Last Year: No Utilities: Not At Risk (06/08/2024) [facility] Utilities Threatened with loss of utilities: No Area Deprivation Index: Medium Risk (06/07/2024) Area Deprivation Index National Score (1-100), lower number is lower risk: 58 State Score (1-10), lower number is lower risk: 4 Data from: https://www.neighborhoodatlas.medicine.[facility].edu/. Last address used for calculation: [address] Equipment: Do you currently use any equipment at home for your medical condition or to help you get around? Bi-level Positive Airway Pressure/Continuous Positive Airway Pressure Patient stated she has a cane, a walker, a shower chair and high rise toilet seats at home with an extra elevated attachment for after surgery Active Services/Needs: None Transportation: Do you have reliable transportation to and from surgery/appointments?: Yes Who will provide discharge transportation: Spouse Contact information for patient's ride: Will your ride be available for 1200 discharge time? Yes Office Visit Follow Up Did you receive the antiseptic wipes from your surgeon s office? Yes Did you receive a prescription for an assistive device (walker or crutches) from your surgeon s office and fill it or do you already have one at home? Yes Did you attend a joint education class/Watched video? Yes Did you read the education book provided to you? Yes Have you let your PCP know you are having a joint replacement surgery? No, If no, plan for correction is: Patient advised to notify PCP office of upcoming surgery If you are currently being seen by pain management, are they aware you are having a joint replacement surgery? N/A Have you informed any specialty care providers of your upcoming joint replacement surgery? Yes Have you made arrangements for your pets? No pets Is your house ready for your recovery? Yes PLAN OF CARE VISIT DISCUSSED: Yes FREEDOM OF CHOICE: Level of Care Discussed: Home Care Provider List: Home Care Provider list within the patient's requested geographic area offered to the patient/family: Yes - Within [address] of [address] [place] [address] Total Joint Arthroplasty (TJA) Surgical Risk Procedure: Not on file Date assessed: Not on file No data to display Patient lives outside of [facility] service area. Patient did not state a preference for any specific [facility] agency at this time, is in agreement with referrals being sent for multiple [facility] agencies near home to determine who could accept. Plan for spouse to provide D/C transport home following surgery. Patient stated she was told by surgeon's office to anticipate spending the night in the hospital following surgery SIGNATURE: CELSO Vila DATE: June 08, 2024 TIME: 12:59 PM [facility]04-02-[facility] Miscellaneous Notes* Telephone Encounter - Pattie FernandezCELSO - 06/08/2024 12:59 PM EDT Images from the original note were not included. ORTHOPAEDIC COORDINATION OF CARE Pre-Op Assessment Discharge Disposition (Planned): Home with Home Health Discharge Transportation: Car [facility] Information: Surgeon: Eligio Gibbons MD Date of surgery: 06/30/2024 Surgery location: [place] TJA clinic location: [place] Date of TJA clinic: 06/07/2024 Appts included in visit: Joint Class, PACC, Social Work, Lab and Imaging Joint being replaced: Right Hip PRIMARY CARE PHYSICIAN: Navdeep Ulloa MD OR Surgery Date: 06/30/2024 [facility] Appointment: 06/30/2024 Joint: Jointtype: Hip Side: right Health Insurance: Medicare or MEDICARE SUPPLEMENT GENERIC Primary Contact: Extended Emergency Contact Information Primary Emergency Contact: Uli Mott Address: [address] [place] [address] Mobile Relation: Spouse Have you had joint replacement surgery before?: No Social: Pre-Hospital Baseline Mental Status: Alert & Oriented Informant: Self Living Arrangement: Home Who able to assist you at home once you discharge? Spouse Are they available for at least 2 weeks? Yes Stairs: One story home 2 stairs to enter home Bedroom Location: First Bathroom Location: First Do you have problems that affect your ability to perform normal activities of daily living such as bathing, dressing, or toileting yourself? No = 0 What is your current functional status?: Perform ADLs independently Are you able to afford your medications/Food? Yes Social Drivers of Health Tobacco Use: Low Risk (06/07/2024) Patient History Smoking Tobacco Use: Never Smokeless Tobacco Use: Never Passive Exposure: Not on file Alcohol Use: Not At Risk (01/27/2024) AUDIT-C Frequency of Alcohol Consumption: Never Average Number of Drinks: Patient does not drink Frequency of Binge Drinking: Never Financial Resource Strain: Low Risk (06/08/2024) Overall Financial Resource Strain (CARDIA) Difficulty of Paying Living Expenses: Not very hard Food Insecurity: No Food Insecurity (06/08/2024) Hunger Vital Sign Worried About Running Out of Food in the Last Year: Never true Ran Out of Food in the Last Year: Never true Transportation Needs: No Transportation Needs (06/08/2024) PRAPARE - Transportation Lack of Transportation (Medical): No Lack of Transportation (Non-Medical): No Physical Activity: Inactive (01/27/2024) Exercise Vital Sign Days of Exercise per Week: 0 days Minutes of Exercise per Session: 0 min Stress: No Stress Concern Present (06/08/2024) [employer] [place] [employer] - Occupational Stress Questionnaire Feeling of Stress : Not at all Social Connections: Moderately Integrated (06/08/2024) Social Connection and Isolation Panel [NHANES] Frequency of Communication with Friends and Family: More than three times a week Frequency of Social Gatherings with Friends and Family: More than three times a week Attends Gnosticist Services: More than 4 times per year Active Member of Clubs or Organizations: No Attends Club or Organization Meetings: Never Marital Status: Intimate Partner Violence: Not At Risk (06/08/2024) Safe at Home? Fear of Current or Ex-Partner: No Emotionally Abused: No Physically Abused: No Sexually Abused: No Safe at Home?: Not on file Depression: Not at risk (06/03/2024) PHQ-2 PHQ-2 Score: 0 Housing Stability: Low Risk (06/08/2024) Housing Stability Vital Sign Unable to Pay for Housing in the Last Year: No Number of Times Moved in the Last Year: 0 Homeless in the Last Year: No Utilities: Not At Risk (06/08/2024) [facility] Utilities Threatened with loss of utilities: No Area Deprivation Index: Medium Risk (06/07/2024) Area Deprivation Index National Score (1-100), lower number is lower risk: 58 State Score (1-10), lower number is lower risk: 4 Data from: https://www.neighborhoodatlas.medicine.[employer].edu/. Last address used for calculation: [address] Equipment: Do you currently use any equipment at home for your medical condition or to help you get around? Bi-level Positive Airway Pressure/Continuous Positive Airway Pressure Patient stated she has a cane, a walker, a shower chair and high rise toilet seats at home with an extra elevated attachment for after surgery Active Services/Needs: None Transportation: Do you have reliable transportation to and from surgery/appointments?: Yes Who will provide discharge transportation: Spouse Contact information for patient's ride: Will your ride be available for 1200 discharge time? Yes Office Visit Follow Up Did you receive the antiseptic wipes from your surgeon s office? Yes Did you receive a prescription for an assistive device (walker or crutches) from your surgeon s office and fill it or do you already have one at home? Yes Did you attend a joint education class/Watched video? Yes Did you read the education book provided to you? Yes Have you let your PCP know you are having a joint replacement surgery? No, If no, plan for correction is: Patient advised to notify PCP office of upcoming surgery If you are currently being seen by pain management, are they aware you are having a joint replacement surgery? N/A Have you informed any specialty care providers of your upcoming joint replacement surgery? Yes Have you made arrangements for your pets? No pets Is your house ready for your recovery? Yes PLAN OF CARE VISIT DISCUSSED: Yes FREEDOM OF CHOICE: Level of Care Discussed: Home Care Provider List: Home Care Provider list within the patient's requested geographic area offered to the patient/family: Yes - Within [place] [address] [place] Total Joint Arthroplasty (TJA) Surgical Risk Procedure: Not on file Date assessed: Not on file No data to display Patient lives outside of [facility] service area. Patient did not state a preference for any specific [facility] agency at this time, is in agreement with referrals being sent for multiple [facility] agencies near home to determine who could accept. Plan for spouse to provide D/C transport home following surgery. Patient stated she was told by surgeon's office to anticipate spending the night in the hospital following surgery SIGNATURE: CELSO Vila DATE: June 08, 2024 TIME: 12:59 PM documented in this encounterThe [facility]04-01-[facility]25 History of Present illness Narrative* Yobani Morris, TECHNOLOGIST - 06/07/2024 3:30 PM EDT Radiology Service Progress Note PATIENT NAME: Azalea Mott DATE OF SERVICE: June 07, 2024 TIME: 2:11 PM PATIENT IDENTITY VERIFICATION COMPLETED USING TWO (2) IDENTIFIERS: Name and Date of confirmedby patient verbally and Name and Date of confirmed by identification band. FALL SCREENING: Has the patient had 2 falls in the last year or 1 fall with injury or currently using an Ambulatory Assistive Device (Walker, Cane, Wheelchair, Crutches, etc.)? No PATIENT GENDER DATA: Assigned female at . status: : No status:NO. PATIENT RELEVANT IMPLANT DATA REVIEWED: Yes PATIENT PRESENTS WITH AN IMPLANTABLE OR ATTACHED CORPORATE DIRECTOR: No RADIOLOGY DEPARTMENT: CT; Exam(s) Completed: RT KVNG HIP PERIPHERAL IV DATA: Not applicable SIGNED BY: TECHNOLOGIST Lyn June 07, 2024 2:11 PM documented in this encounterThe [facility] Hospital04-01-2025 NoteHNO ID: [id number] Author: YOBANI MORRIS TECHNOLOGIST Service: Radiology Author Type: Technologist Type: Progress Notes Filed: 06/07/2024 14:11 Note Text: Radiology Service Progress Note PATIENT NAME: Azalea Mott DATE OF SERVICE: June 07, 2024 TIME: 2:11 PM PATIENT IDENTITY VERIFICATION COMPLETED USING TWO (2) IDENTIFIERS: Name and Date of confirmed by patient verbally and Name and Date of confirmed by identification band. FALL SCREENING: Has the patient had 2 falls in the last year or 1 fall with injury or currently using an Ambulatory Assistive Device (Walker, Cane, Wheelchair, Crutches, etc.)? No PATIENT GENDER DATA: Assigned female at . status: : No status: NO. PATIENT RELEVANT IMPLANT DATA REVIEWED: Yes PATIENT PRESENTS WITH AN IMPLANTABLE OR ATTACHED CORPORATE DIRECTOR: No RADIOLOGY DEPARTMENT: CT; Exam(s) Completed: RT KVNG HIP PERIPHERAL IV DATA: Not applicable SIGNED BY: TECHNOLOGIST Lyn June 07, 2024 2:11 PMCincinnati Va Medical [id number] History and physical note* Stephon Maurer APRN.PROTEIN PURIFICATION SCIENTIST - 06/07/2024 12:59 PM EDT Images from the original note were not included. [facility] HISTORY AND PHYSICAL EXAMINATION SERVICE DATE: 06/07/2024 SERVICE TIME: 2:22 PM PRIMARY CARE PHYSICIAN: Navdeep Ulloa MD Assessment Patient has the following medical conditions which may affect lyndsey-operative course: SIOBHAN on CPAP Assessment: Compliant on device. Advised to bring day of surgery. Chronic kidney insufficiency, stage 3 (moderate) (HCC) Assessment: Denies any new or worsening symptoms. Follows with PCP. BUN Date Value Ref Range Status 01/18/2024 22 (H) 7 - 21 mg/dL Final Creatinine Date Value Ref Range Status 01/18/2024 1.03 (H) 0.58 - 0.96 mg/dL Final 08/24/2023 1.05 (H) 0.58 - 0.96 mg/dL Final 03/30/2023 0.99 (H) 0.58 - 0.96 mg/dL Final 01/22/2023 1.08 (H) 0.58 - 0.96 mg/dL Final Hypertension, essential Assessment: Stable and compliant with medications. Follows with PCP. Last 3 Encounter BP Readings: Date: BP: 06/07/2024 132/79 03/31/2024 136/72 01/27/2024 124/78 Hyperlipidemia LDL goal <100 Assessment: Compliant on statin therapy. Encouraged lifestyle modifications. Body mass index is 34.94 kg/m . Venous insufficiency Assessment: int swelling , elevation helps sometimes. Obesity, Class I, BMI 30-34.9 Assessment: Body mass index is 34.94 kg/m . ANESTHESIA FINDINGS: Intubation History: No history of difficult intubation. No abnormal airway history Significant Anesthesia Considerations: none Airway History: No history of difficult airway No abnormal airway history Muro Activity Status Index: METS: Walk indoors, such as around the house (1.75 METs) Do light work around the house, such as dusting or washing dishes (2.70 METs) Take care of self; that is eating, dressing, bathing, using the toilet (2.75 METs) Walk a block or two on level ground (2.75 METs) Do moderate work around the house, such as vacuuming, sweeping floors, or carrying in groceries (3.50 METs) Climb a flight of stairs or walk up a hill (5.50 METs) DASI Score: 18.95 Patient denies any chest pain or undue shortness of breath with the above physical activity. Patient is limited most or all of the time (uses scooter, mobility device) (+ cane). Clinical Frailty Scale: 3. Well, with treated comorbid disease STOP-Bang Score: STOP-Bang Score: (+ siobhan on cpap) I - PHYSICAL EVALUATION AIRWAY Patient intubated: No. Tracheostomy tube not present Mallampati: II. TM distance: >3 FB. Neck ROM: full ROM without neurological symptoms. Mouth opening: adequate. Short neck: no. Thick neck: no DENTAL Dental findings: teeth intact. II - ANESTHESIA PLAN Anesthetic plan additional comments: *PACC/TCI - anesthesia choice. Beta Jason Monitoring Plan Post Procedure Analgesic Plan Prepared for Surgery: optimally prepared for surgery, pending [see comment]. Labs and EKG pending. Patient had atrial flutter in office on EKG, asymptomatic.Denies any heart palpitations, edema, chest pain, shortness of breath, syncope, activity intolerance, or dizziness. Patient able to be schedule d with cardiology (Dr. Hidalgo) , 06/09. CONSULTS: The following consults have been initiated at this time: cardiology. Planned Anesthetic: anesthesia choice The Following Tests/Procedures Have Been Initiated: Orders Placed This Encounter mupirocin (BACTROBAN) 2 % ointment Sig: two times a day for 5 days. Apply 0.5 inch with cotton swab (Q-tip) to each nostril in the morning and evening for 5 days prior to and including day of surgery. Dispense: 22 g Refill: 0 ECG (IN OFFICE) REASON FOR VISIT: Azalea Mott is a 74 year old female who is scheduled for Procedure(s): ROBOTIC ASSISTED TOTAL HIP ARTHROPLASTY (see comments) (Right) at the request of Dr. Eligio Gibbons for consultation. My final recommendation will be communicated back to the requesting physician by way of shared medical record or letter. Subjective The patient has the following: COVID-19 Immunization Status Current Care Gaps Covid-19 Vaccine ( season) Overdue since 05/22/2024 11/23/2023 Imm Admin: COVID-19 vaccine, age 12+ yr ([facility]stor[facility] 12/22/2022 Imm Admin: COVID-19 vaccine, age 12+ yr, 2022- season (MODERNA) 12/26/2021 Imm Admin: COVID-19 vaccine, age 12+ yr, bivalent ([id number]) Only the first 3 history entries have been loaded, but more history exists. CHIEF COMPLAINT: pre op HPI: Patient is a 74 year old female scheduled for pre anesthesia consultation for a procedure on 06/30/2024 at [facility]. Patient is presenting with right hip pain for about nine years. Denies specific injury. Reports pain today of 8/10, described as sharp, worsens at night. Denies swelling, numbness or tingling. Has tried conservative methods with little relief. Patient denies other specific radiating, alleviating, or aggravating factors. REVIEW OF SYSTEMS: General: No weight loss, malaise or fevers. Neurological: Negative for: delirium, dementia, headaches, impaired sensorium, peripheral neuropathy, seizures, TIA and strokes. Respiratory: Positive for: obstructive sleep apnea and CPAP/BiPAP compliant. Negative for: asthma, bronchitis, COPD, current cough, bronchodilator used daily for the last 3 months, dyspnea, home oxygen, orthopnea, pneumonia within 6 weeks, tobacco use and URI < 2 weeks. Cardiovascular: + venous insufficiency Positive for: hyperlipidemia, hypertension and murmur/valvular heart disease Negative for: abdominal aortic aneurysm, AICD/PPM, angina, anticoagulation therapy, arrhythmia, atrial fibrillation, CAD, chest pain, CHF, congenital heart defect, DVT/PE, recent RI, PTCA, PVD, open heart surgery and valve surgery. GI: Negative for: abdominal pain, GERD, GI bleed <30 days, hepatitis, liver disease, nausea, vomiting and ETOH >2 drinks/day. : + stage 3a ckd Negative for: on dialysis, dysuria, flank pain, frequent urination, hematuria, renal failure and urinary tract infection. Endocrine: Negative for: diabetes mellitus, hyperthyroidism and hypothyroidism. Hematology: Negative for: anemia, bruises/bleeds easily, factor V Leiden, hemophilia, thrombocytopenia, von Willebrand disease, transfusion of at least 4 units within 72 hours prior to surgery and chronic anti-coagulation/platelet meds. Oncology: Negative for: CA metastasis, chemo within 30 days, disseminated cancer and radiotherapy within 90 days. Psych: No history of psychiatric symptoms or problems. Musculoskeletal: See HPI. Skin: Negative for lesions, rash and itching. Implanted Devices: No implanted devices. PAST MEDICAL HISTORY Diagnosis Date Cholelithiasis with acute cholecystitis with biliary obstruction 09/2020 Chronic otitis media of both ears 1955 COVID-19 01/30/2021 home antigen test Diverticulosis of colon (without mention of hemorrhage) Diverticulosis Hearing loss in left ear 03/27/2009 Hereditary and idiopathic peripheral neuropathy Hyperlipidemia LDL goal <100 01/18/2016 Hypertension, essential 01/02/2020 Obesity, Class I, BMI 30-34.9 10/25/2020 SIOBHAN (obstructive sleep apnea) 01/27/2020 Personal history of colonic polyps 10/18/2004 hyperplastic Colon polyps Unspecified hemorrhoids without mention of complication Hemorrhoids PAST SURGICAL HISTORY Procedure Laterality Date ADENOIDECTOMY PRIMARY Adenoidectomy COLONOSCOPY FLX DX W/COLLJ SPEC WHEN PFRMD 10/18/2004 Colonoscopy-repeat in COLONOSCOPY FLX DX W/COLLJ SPEC WHEN PFRMD 02/13/2017 IUE-Lwhet-drlcal 10 years HYSTEROSCOPY BX W/WO D&C 12/2011 endometrial polyp LAPAROSCOPIC CHOLECYSTECTOMY 09/24/2020 MASTOIDECTOMY,COMPLETE Left 1955 Mastoidectomy, left TONSILLECTOMY PRIMARY/SECONDARY Tonsillectomy FAMILY HISTORY Problem Relation Age of Onset Hypertension Mother Asthma Mother Diabetes Mother COPD Mother other (crohns [Other]) Mother Cancer Father NON HODGKINS LYMPHOMA Heart Father CHF Stroke Father age 82 Heart Sister CHF other (diabetes mellitus [Other]) Sister Hypertension Sister Pneumonia Sister Fibromyalgia Sister Kidney Disease Sister Pneumonia Brother other (Covid 19 sequelae) Brother No Known Problems Brother No Known Problems Brother Diabetes Maternal Grandmother Stroke Paternal Grandfather Tuberculosis Paternal Grandfather Anesthesia Problems No Family History Social History Tobacco Use Smoking status: Never Smokeless tobacco: Never Vaping Use Vaping status: Never Used Substance Use Topics Alcohol use: No Drug use: No Prior to Admission medications as of 06/07/24 1318 Medication Sig Last Dose Taking hydroCHLOROthiazide 25 mg tablet Take 1 tablet by mouth once daily. Yes lisinopril (ZESTRIL) 10 mg tablet Take 1 tablet by mouth once daily. Yes atorvastatin (LIPITOR) 10 mg tablet Take 1 tablet by mouth daily at bedtime. For cholesterol. Yes CPAP CPAP Supplies, All Necessary equipment including tubing and full mask ICD G47.33 Yes HAIR, SKIN AND NAILS, BIOTIN, ORAL Take 2 tablets by mouth once daily. Yes diphenhydrAMINE-Acetaminophen (TYLENOL PM EXTRA STRENGTH) 25-500 mg tab At bedtime for sleep Yes ascorbic acid (VITAMIN C ORAL) Take 1 tablet by mouth once daily. Yes elderberry fruit (ELDERBERRY ORAL) Take 2 Doses by mouth once daily. Yes CPAP 30 day download for And please send chin strap Auto PAP @ 5-20 cm of water with humidification. Mask (per patient preference) optional chin strap (if indicated) , filters, tubing, humidifier andlifetime supplies. Yes TURMERIC ORAL Take by mouth once daily. With curcumin Yes Black Cohosh 40 mg tab Take 1 tablet by mouth. Take 1 tablet every other day Yes ferrous sulfate 325 mg (65 mg iron) tablet Take 650 mg by mouth daily with breakfast. Yes cholecalciferol (VITAMIN D3) 50 mcg (2,000 unit) tablet Take by mouth. Yes Fiber Cap Take 3 capsules by mouth once daily. Yes multivitamins(DAILY MULTIVITAMIN TAB) Take one(1) tablet daily. Yes mupirocin (BACTROBAN) 2 % ointment two times a day for 5 days. Apply 0.5 inch with cotton swab (Q-tip) to each nostril in the morning and evening for 5 days prior to and including day of surgery. meloxicam (MOBIC) 15 mg tablet Take 1 tablet by mouth once daily. Patient not taking: Reported on 04/22/2024 No medication comments found. ALLERGIES Allergen Reactions [place] [Hydrocodone-* Other: See Comments Weird dreams. Objective PHYSICAL EXAM: General: alert and oriented and healthy appearance. Pertinent negatives noted - not distressed. Skin: normal color, no rash or lesions. HEENT: EOM intact, pupils equal round and pupils reactive to light. Pertinent negatives noted - no carotid bruit. Cardiovascular: regular rate and rhythm, normal S1 and S2, no rub, murmurs, or gallop. Respiratory: normal breath sounds, no wheezes or crackles. No chest wall deformity or tenderness. Abdomen: bowel sounds present and soft. Pertinent negatives noted - not tender. Extremities: Positive for joint tenderness. Pertinent negatives noted - no cellulitis, no clubbing,no deformity, no edema, no joint swelling, no abnormal pulses, no ulcer, no vascular insufficiency and no varicose veins. Neurological: normal cognition and motor skills. Gait normal. No weakness or sensory deficit. PAIN ASSESSMENT: Pain Pain Level: 8 Pain Location: Hip-Right VITALS: BP 132/79 Pulse 99 Temp (Src) 97.1 (Temporal) Resp 16 Ht 5' 6.5 (1.69m) Wt 219 lb 12.8 oz (99.7kg) SpO2 96% BMI 34.95 kg/(m^2). Diagnostic tests reviewed for today's visit: Lab Value Units Date High Low HB No results within date range. HCT No results within date range. WBC No results within date range. PLT No results within date range. NA 140 mmol/L 01/18/2024 144 136 K 4.0 mmol/L 01/18/2024 5.1 3.7 GLUC 115 mg/dL 01/18/2024 99 74 BUN 22 mg/dL 01/18/2024 21 7 CREAT 1.03 mg/dL 01/18/2024 0.96 0.58 PTSEC No results within date range. INR No results within date range. APTT No results within date range. ALT 20 U/L 01/18/2024 38 7 AST 20 U/L 01/18/2024 35 13 TBILI 0.5 mg/dL 01/18/2024 1.3 0.2 TSH No results within date range. Lab Value Units Date High Low HCGQT No results within date range. UHCG No results within date range. HCG, BODY* No results within date range. Lab Value Units Date High Low ABORHD No results within date range. ABSCREEN No results within date range. Hemoglobin A1C (%) Date Value 08/24/2023 5.8 03/05/2021 5.6 10/19/2020 5.4 HBA1C, [place] (%) Date Value 04/10/2007 5.3 No results found for this or any previous visit (from the past 8760 hours). No results found for this or any previous visit (from the past 10470 hours). Instructions Given to Patient: Instructions located in the after visit summary. Patient given verbal and written preop instructions and voices comprehension and compliance. SIGNATURE: Stephon Maurer APRN.CNP PATIENT NAME: Azalea Mott DATE: June 07, 2024 TIME: 12:59 PM PAGER/CONTACT #: [facility] History and physical note* Stephon Maurer APRN.CNP - 06/07/2024 12:59 PM EDT Images from the original note were not included. [facility] HISTORY AND PHYSICAL EXAMINATION SERVICE DATE: 06/07/2024 SERVICE TIME: 2:22 PM PRIMARY CARE PHYSICIAN: Navdeep Ulloa MD Assessment Patient has the following medical conditions which may affect lyndsey-operative course: SIOBHAN on CPAP Assessment: Compliant on device. Advised to bring day of surgery. Chronic kidney insufficiency, stage 3 (moderate) (HCC) Assessment: Denies any new or worsening symptoms. Follows with PCP. BUN Date Value Ref Range Status 01/18/2024 22 (H) 7 - 21 mg/dL Final Creatinine Date Value Ref Range Status 01/18/2024 1.03 (H) 0.58 - 0.96 mg/dL Final 08/24/2023 1.05 (H) 0.58 - 0.96 mg/dL Final 03/30/2023 0.99 (H) 0.58 - 0.96 mg/dL Final 01/22/2023 1.08 (H) 0.58 - 0.96 mg/dL Final Hypertension, essential Assessment: Stable and compliant with medications. Follows with PCP. Last 3 Encounter BP Readings: Date: BP: 06/07/2024 132/79 03/31/2024 136/72 01/27/2024 124/78 Hyperlipidemia LDL goal <100 Assessment: Compliant on statin therapy. Encouraged lifestyle modifications. Body mass index is 34.94 kg/m . Venous insufficiency Assessment: int swelling , elevation helps sometimes. Obesity, Class I, BMI 30-34.9 Assessment: Body mass index is 34.94 kg/m . ANESTHESIA FINDINGS: Intubation History: No history of difficult intubation. No abnormal airway history Significant Anesthesia Considerations: none Airway History: No history of difficult airway No abnormal airway history Muro Activity Status Index: METS: Walk indoors, such as around the house (1.75 METs) Do light work around the house, such as dusting or washing dishes (2.70 METs) Take care of self; that is eating, dressing, bathing, using the toilet (2.75 METs) Walk a block or two on level ground (2.75 METs) Do moderate work around the house, such as vacuuming, sweeping floors, or carrying in groceries (3.50 METs) Climb a flight of stairs or walk up a hill (5.50 METs) DASI Score: 18.95 Patient denies any chest pain or undue shortness of breath with the above physical activity. Patient is limited most or all of the time (uses scooter, mobility device) (+ cane). Clinical Frailty Scale: 3. Well, with treated comorbid disease STOP-Bang Score: STOP-Bang Score: (+ siobhan on cpap) I - PHYSICAL EVALUATION AIRWAY Patient intubated: No. Tracheostomy tube not present Mallampati: II. TM distance: >3 FB. Neck ROM: full ROM without neurological symptoms. Mouth opening: adequate. Short neck: no. Thick neck: no DENTAL Dental findings: teeth intact. II - ANESTHESIA PLAN Anesthetic plan additional comments: *PACC/TCI - anesthesia choice. Beta Jason Monitoring Plan Post Procedure Analgesic Plan Prepared for Surgery: optimally prepared for surgery, pending [see comment]. Labs and EKG pending. Patient had atrial flutter in office on EKG, asymptomatic.Denies any heart palpitations, edema, chest pain, shortness of breath, syncope, activity intolerance, or dizziness. Patient able to be schedule d with cardiology (Dr. Hidalgo) , 06/09. CONSULTS: The following consults have been initiated at this time: cardiology. Planned Anesthetic: anesthesia choice The Following Tests/Procedures Have Been Initiated: Orders Placed This Encounter mupirocin (BACTROBAN) 2 % ointment Sig: two times a day for 5 days. Apply 0.5 inch with cotton swab (Q-tip) to each nostril in the morning and evening for 5 days prior to and including day of surgery. Dispense: 22 g Refill: 0 ECG (IN OFFICE) REASON FOR VISIT: Azalea Mott is a 74 year old female who is scheduled for Procedure(s): ROBOTIC ASSISTED TOTAL HIP ARTHROPLASTY (see comments) (Right) at the request of Dr. Eligio Gibbons for consultation. My final recommendation will be communicated back to the requesting physician by way of shared medical record or letter. Subjective The patient has the following: COVID-19 Immunization Status Current Care Gaps Covid-19 Vaccine ( season) Overdue since 05/22/2024 11/23/2023 Imm Admin: COVID-19 vaccine, age 12+ yr (PFIZER-BIONTECH COMIRNATY) 12/22/2022 Imm Admin: COVID-19 vaccine, age 12+ yr, season (MODERNA) 12/26/2021 Imm Admin: COVID-19 vaccine, age 12+ yr, bivalent (PFIZER-BIONTECH) Only the first 3 history entries have been loaded, but more history exists. CHIEF COMPLAINT: pre op HPI: Patient is a 74 year old female scheduled for pre anesthesia consultation for a procedure on 06/30/2024 at [facility]. Patient is presenting with right hip pain for about nine years. Denies specific injury. Reports pain today of 8/10, described as sharp, worsens at night. Denies swelling, numbness or tingling. Has tried conservative methods with little relief. Patient denies other specific radiating, alleviating, or aggravating factors. REVIEW OF SYSTEMS: General: No weight loss, malaise or fevers. Neurological: Negative for: delirium, dementia, headaches, impaired sensorium, peripheral neuropathy, seizures, TIA and strokes. Respiratory: Positive for: obstructive sleep apnea and CPAP/BiPAP compliant. Negative for: asthma, bronchitis, COPD, current cough, bronchodilator used daily for the last 3 months, dyspnea, home oxygen, orthopnea, pneumonia within 6 weeks, tobacco use and URI < 2 weeks. Cardiovascular: + venous insufficiency Positive for: hyperlipidemia, hypertension and murmur/valvular heart disease Negative for: abdominal aortic aneurysm, AICD/PPM, angina, anticoagulation therapy, arrhythmia, atrial fibrillation, CAD, chest pain, CHF, congenital heart defect, DVT/PE, recent RI, PTCA, PVD, open heart surgery and valve surgery. GI: Negative for: abdominal pain, GERD, GI bleed <30 days, hepatitis, liver disease, nausea, vomiting and ETOH >2 drinks/day. : + stage 3a ckd Negative for: on dialysis, dysuria, flank pain, frequent urination, hematuria, renal failure and urinary tract infection. Endocrine: Negative for: diabetes mellitus, hyperthyroidism and hypothyroidism. Hematology: Negative for: anemia, bruises/bleeds easily, factor V Leiden, hemophilia, thrombocytopenia, von Willebrand disease, transfusion of at least 4 units within 72 hours prior to surgery and chronic anti-coagulation/platelet meds. Oncology: Negative for: CA metastasis, chemo within 30 days, disseminated cancer and radiotherapy within 90 days. Psych: No history of psychiatric symptoms or problems. Musculoskeletal: See HPI. Skin: Negative for lesions, rash and itching. Implanted Devices: No implanted devices. PAST MEDICAL HISTORY Diagnosis Date Cholelithiasis with acute cholecystitis with biliary obstruction 09/2020 Chronic otitis media of both ears 1955 COVID-19 01/30/2021 home antigen test Diverticulosis of colon (without mention of hemorrhage) Diverticulosis Hearing loss in left ear 03/27/2009 Hereditary and idiopathic peripheral neuropathy Hyperlipidemia LDL goal <100 01/18/2016 Hypertension, essential 01/02/2020 Obesity, Class I, BMI 30-34.9 10/25/2020 SIOBHAN (obstructive sleep apnea) 01/27/2020 Personal history of colonic polyps 10/18/2004 hyperplastic Colon polyps Unspecified hemorrhoids without mention of complication Hemorrhoids PAST SURGICAL HISTORY Procedure Laterality Date ADENOIDECTOMY PRIMARY <AGE 13 Adenoidectomy COLONOSCOPY FLX DX W/COLLJ SPEC WHEN PFRMD 10/18/2004 Colonoscopy-repeat in COLONOSCOPY FLX DX W/COLLJ SPEC WHEN PFRMD 02/13/2017 SCT-E[facility]-svlugd 10 years HYSTEROSCOPY BX W/WO D&C 12/2011 endometrial polyp LAPAROSCOPIC CHOLECYSTECTOMY 09/24/2020 MASTOIDECTOMY,COMPLETE Left 1955 Mastoidectomy, left TONSILLECTOMY PRIMARY/SECONDARY <AGE 13 Tonsillectomy FAMILY HISTORY Problem Relation Age of Onset Hypertension Mother Asthma Mother Diabetes Mother COPD Mother other (crohns [Other]) Mother Cancer Father NON HODGKINS LYMPHOMA Heart Father CHF Stroke Father age 82 Heart Sister CHF other (diabetes mellitus [Other]) Sister Hypertension Sister Pneumonia Sister Fibromyalgia Sister Kidney Disease Sister Pneumonia Brother other (Covid 19 sequelae) Brother No Known Problems Brother No Known Problems Brother Diabetes Maternal Grandmother Stroke Paternal Grandfather Tuberculosis Paternal Grandfather Anesthesia Problems No Family History Social History Tobacco Use Smoking status: Never Smokeless tobacco: Never Vaping Use Vaping status: Never Used Substance Use Topics Alcohol use: No Drug use: No Prior to Admission medications as of 06/07/24 1318 Medication Sig Last Dose Taking hydroCHLOROthiazide 25 mg tablet Take 1 tablet by mouth once daily. Yes lisinopril (ZESTRIL) 10 mg tablet Take 1 tablet by mouth once daily. Yes atorvastatin (LIPITOR) 10 mg tablet Take 1 tablet by mouth daily at bedtime. For cholesterol. Yes CPAP CPAP Supplies, All Necessary equipment including tubing and full mask ICD G47.33 Yes HAIR, SKIN AND NAILS, BIOTIN, ORAL Take 2 tablets by mouth once daily. Yes diphenhydrAMINE-Acetaminophen (TYLENOL PM EXTRA STRENGTH) 25-500 mg tab At bedtime for sleep Yes ascorbic acid (VITAMIN C ORAL) Take 1 tablet by mouth once daily. Yes elderberry fruit (ELDERBERRY ORAL) Take 2 Doses by mouth once daily. Yes CPAP 30 day download for And please send chin strap Auto PAP @ 5-20 cm of water with humidification. Mask (per patient preference) optional chin strap (if indicated) , filters, tubing, humidifier andlifetime supplies. Yes TURMERIC ORAL Take by mouth once daily. With curcumin Yes Black Cohosh 40 mg tab Take 1 tablet by mouth. Take 1 tablet every other day Yes ferrous sulfate 325 mg (65 mg iron) tablet Take 650 mg by mouth daily with breakfast. Yes cholecalciferol (VITAMIN D3) 50 mcg (2,000 unit) tablet Take by mouth. Yes Fiber Cap Take 3 capsules by mouth once daily. Yes multivitamins(DAILY MULTIVITAMIN TAB) Take one(1) tablet daily. Yes mupirocin (BACTROBAN) 2 % ointment two times a day for 5 days. Apply 0.5 inch with cotton swab (Q-tip) to each nostril in the morning and evening for 5 days prior to and including day of surgery. meloxicam (MOBIC) 15 mg tablet Take 1 tablet by mouth once daily. Patient not taking: Reported on 04/22/2024 No medication comments found. ALLERGIES Allergen Reactions [place] [Hydrocodone-* Other: See Comments Weird dreams. Objective PHYSICAL EXAM: General: alert and oriented and healthy appearance. Pertinent negatives noted - not distressed. Skin: normal color, no rash or lesions. HEENT: EOM intact, pupils equal round and pupils reactive to light. Pertinent negatives noted - no carotid bruit. Cardiovascular: regular rate and rhythm, normal S1 and S2, no rub, murmurs, or gallop. Respiratory: normal breath sounds, no wheezes or crackles. No chest wall deformity or tenderness. Abdomen: bowel sounds present and soft. Pertinent negatives noted - not tender. Extremities: Positive for joint tenderness. Pertinent negatives noted - no cellulitis, no clubbing,no deformity, no edema, no joint swelling, no abnormal pulses, no ulcer, no vascular insufficiency and no varicose veins. Neurological: normal cognition and motor skills. Gait normal. No weakness or sensory deficit. PAIN ASSESSMENT: Pain Pain Level: 8 Pain Location: Hip-Right VITALS: BP 132/79 Pulse 99 Temp (Src) 97.1 (Temporal) Resp 16 Ht 5' 6.5 (1.69m) Wt 219 lb 12.8 oz (99.7kg) SpO2 96% BMI 34.95 kg/(m^2). Diagnostic tests reviewed for today's visit: Lab Value Units Date High Low HB No results within date range. HCT No results within date range. WBC No results within date range. PLT No results within date range. NA 140 mmol/L 01/18/2024 144 136 K 4.0 mmol/L 01/18/2024 5.1 3.7 GLUC 115 mg/dL 01/18/2024 99 74 BUN 22 mg/dL 01/18/2024 21 7 CREAT 1.03 mg/dL 01/18/2024 0.96 0.58 PTSEC No results within date range. INR No results within date range. APTT No results within date range. ALT 20 U/L 01/18/2024 38 7 AST 20 U/L 01/18/2024 35 13 TBILI 0.5 mg/dL 01/18/2024 1.3 0.2 TSH No results within date range. Lab Value Units Date High Low HCGQT No results within date range. UHCG No results within date range. HCG, BODY* No results within date range. Lab Value Units Date High Low ABORHD No results within date range. ABSCREEN No results within date range. Hemoglobin A1C (%) Date Value 08/24/2023 5.8 03/05/2021 5.6 10/19/2020 5.4 HBA1C, [place] (%) Date Value 04/10/2007 5.3 No results found for this or any previous visit (from the past 8760 hours). No results found for this or any previous visit (from the past 08264 hours). Instructions Given to Patient: Instructions located in the after visit summary. Patient given verbal and written preop instructions and voices comprehension and compliance. SIGNATURE: Stephon Maurer APRN.CNP PATIENT NAME: Azalea Mott DATE: June 07, 2024 TIME: 12:59 PM [facility]AGER/CONTACT #[facility]ructions* Patient Instructions* Stephon Maurer APRN.CNP - 06/07/2024 12:59 PM EDT Images from the original note were not included. [facility] PATIENT PREOPERATIVE INSTRUCTIONS Eligio Gibbons* has scheduled you for your procedure at this surgery center: [facility]: [phone] -- [address] [address]. Please read below carefully for your personalized instructions. Arrival Time for Surgery: - The Surgery Center or hospital where you are having surgery will call the afternoon before surgery (or Thursday for Thursday surgery) with a scheduled arrival time. - If you have not heard by 4 pm, please contact the surgery center above. Dietary Restrictions: - No solid food after midnight. - You may have 12 ounces of clear liquids (water, clear juices such as apple juice or gatorade, carbonated beverages, clear tea, black coffee, jello) until 2 hours before scheduled arrival at facility. - Do not drink any alcohol after midnight the night before your surgery. - no milk/creamer or other additives like honey - no pulp juices Medications: Unless instructed differently below, stay on all of your medications until your surgery. If you start any new medications after today's visit, please contact your surgeon. Pre-Surgery Med Instructions Medication Instructions hydroCHLOROthiazide 25 mg tablet Do not take the day of surgery lisinopril (ZESTRIL) 10 mg tablet If you normally take this medication in the morning, take the morning of surgery. atorvastatin (LIPITOR) 10 mg tablet If you normally take this medication in the morning, take the morning of surgery. CPAP Please bring with you the day of surgery. HAIR, SKIN AND NAILS, BIOTIN, ORAL Hold 7 days before surgery. Last dose 06/22/23. diphenhydrAMINE-Acetaminophen (TYLENOL PM EXTRA STRENGTH) 25-500 mg tab Do not take the day of surgery ascorbic acid (VITAMIN C ORAL) Do not take the day of surgery elderberry fruit (ELDERBERRY ORAL) Hold 7 days before surgery. Last dose 06/22/23. TURMERIC ORAL Hold 7 days before surgery. Last dose 06/22/23. Black Cohosh 40 mg tab Hold 7 days before surgery. Last dose 06/22/23. ferrous sulfate 325 mg (65 mg iron) tablet Do not take the day of surgery cholecalciferol (VITAMIN D3) 50 mcg (2,000 unit) tablet Do not take the day of surgery Fiber Cap Do not take the day of surgery multivitamins(DAILY MULTIVITAMIN TAB) Do not take the day of surgery If you are currently using a qgdw-elf-agoe injectable or oral medication for diabetes or weight loss such as Dulaglutide (Trulicity), Exenatide (Byetta, Bydureon), Liraglutide (Victoza, Saxenda), Semaglutide (Ozempic, Wegovy, Rybelsus), or Tirzepatide (Mounjaro), the medicine should be stopped at least 7 days before surgery. These medicines can cause food to remain in your stomach for a very longtime and increase the risks from surgery and anesthesia. Not stopping the medication for a long enough time may result in your surgery being rescheduled. If you start any new medications after today's visit, please contact the surgeon's office. Blood Thinning Medications: - Stop NSAIDS (Ibuprofen, Advil, Aleve, Motrin, Celebrex, Mobic, etc.) 7 days before surgery, as directed by your surgeon. - Stop Aspirin 7 days before surgery, as directed by your surgeon. - Stop herbal supplements 7 days before surgery. - You may take Tylenol (Acetaminophen) or any of your pain medications that do not contain aspirin or NSAIDS as needed. Important Reminders: - If you use CPAP/BIPAP, bring the machine with you to the surgery center. - If you are prescribed inhalers for breathing, continue using them. -Please be sure to brush your teeth and you can use mouth wash or rinse your mouth if dry. - Candy, mints, and tobacco products are NOT permitted the morning of surgery. - Hearing aids, dentures and glasses may be worn the morning of surgery. - If you have dentures or partials, please have a case to place them in or leave at home day of surgery. - NO jewelry, body piercings, makeup, hairpins or contacts are to be worn the day of surgery. If you develop symptoms such as a fever, cold, or flu, or have other changes to your health within TWO DAYS of scheduled surgery or the morning of surgery, please contact the surgery center above. Personal Belongings: -Please have photo ID and insurance cards. -If you do not have a copy of advance directives on file with us, please bring a copy with you on the day of surgery. - Leave ALL valuables and money at home or with family members. Please be aware that emergency situations arise, which may delay or change your surgical time. If this happens, we will notify you as soon as possible and regret any inconvenience. If you already have an Advance Directive, please fax a copy to [phone] or email to for it to be added to your chart. If you do not have an Advance Directive, you can find the appropriate form and more information at [email or web address]. We recommend that youcomplete the Advance Directive form found on the website and bring it with you the day of your surgery. It can be witnessed and scanned into your chart that day. 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 Pt owns walker, cane, shower chair, raised toilet seat. Discussed with patient importance of attending joint education class and provided date and times ofclass: YES Morris TJA 4/ Patient received Joint Education Binder: Yes Patient plans discharge home with [facility]. 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 Pt owns walker, cane, shower chair, raised toilet seat. Discussed with patient importance of attending joint education class and provided date and times ofclass: YES Morris TJA 4/ Patient received Joint Education Binder: Yes Patient plans discharge home with [facility]. SIGNATURE: ALEX Davalos PATIENT NAME: Azalea Mott DATE: June 02, 2024 TIME: 6:59 AM documented in this encounterThe [facility] Hospital03-07-2025 Telephone encounter Note * Telephone Encounter - Karlee Stinson RN - 05/13/2024 9:53 AM EST The patient has been identified by name and date of : Yes Caregiver verified no other encounters exist for this prescription request: Yes Caregiver confirmed with patient/requestor that no other refills are due, in the near future, with this provider at this time: Yes The last office visit in the department: 03/31/2024 Does the patient have a future office visit with this provider/department: 07/21/2024 Requested Prescriptions Pending Prescriptions Disp Refills hydroCHLOROthiazide 25 mg tablet 90 tablet 3 Sig: Take 1 tablet by mouth once daily. lisinopril (ZESTRIL) 10 mg tablet 90 tablet 3 Sig: Take 1 tablet by mouth once daily. [facility]. Requesting new prescription form provider. Patient had to switch pharmacy d/t insurance. Karlee Stinson RN May 13, 2024 9:55 AM [facility]03-07-[facility]25 Miscellaneous Notes* Telephone Encounter - Karlee Stinson RN - 05/13/2024 9:53 AM EST The patient has been identified by name and date of : Yes Caregiver verified no other encounters exist for this prescription request: Yes Caregiver confirmed with patient/requestor that no other refills are due, in the near future, with this provider at this time: Yes The last office visit in the department: 03/31/2024 Does the patient have a future office visit with this provider/department: 07/21/2024 Requested Prescriptions Pending Prescriptions Disp Refills hydroCHLOROthiazide 25 mg tablet 90 tablet 3 Sig: Take 1 tablet by mouth once daily. lisinopril (ZESTRIL) 10 mg tablet 90 tablet 3 Sig: Take 1 tablet by mouth once daily. [facility] transfer from [facility]. Requesting new prescription form provider. Patient had to switch pharmacy d/t insurance. Karlee Stinson RN May 13, 2024 9:55 AM documented in this encounterThe [facility] Hospital03-06-2025 Telephone encounter Note * Telephone Encounter - Luigi Hull LISW - 05/12/2024 10:19 AM EST [facility] called patient to offer participation in [facility]. This patient has agreed to participate in our [facility] on (05/31/24) at [facility]. Surgeon: Rubio DOS: 06/30/24 SIGNATURE: REYNALDO Bailey DATE: May 12, 2024 TIME: 10:19 AM [facility] Work Phone: 1(696) 362-604203-06-2025 Miscellaneous Notes* Telephone Encounter - Luigi Hull LISW - 05/12/2024 10:19 AM EST [facility] called patient to offer participation in [facility]. This patient has agreed to participate in our [facility] on (05/31/24) at [facility]. Surgeon: Rubio DOS: 06/30/24 SIGNATURE: REYNALDO Bailey DATE: May 12, 2024 TIME: 10:19 AM documented in this encounterThe [facility] Hospital03-05-2025 History of Present illness Narrative* Pratibha Espitia Tech - 05/11/2024 11:20 AM EST Radiology Service Progress Note PATIENT NAME: Azalea Mott DATE OF SERVICE: May 11, 2024 TIME: 10:54 AM PATIENT IDENTITY VERIFICATION COMPLETED USING TWO (2) IDENTIFIERS: Name and Date of confirmedby patient verbally. FALL SCREENING: Has the patient had 2 falls in the last year or 1 fall with injury or currently using an Ambulatory Assistive Device (Walker, Cane, Wheelchair, Crutches, etc.)? No PATIENT GENDER DATA: Assigned female at . status: : No status:NO. PATIENT RELEVANT IMPLANT DATA REVIEWED: Not Applicable PATIENT PRESENTS WITH AN IMPLANTABLE OR ATTACHED CORPORATE DIRECTOR: No RADIOLOGY DEPARTMENT: General X-ray: Exam(s) Completed: Spine X-Ray(s): Lumbar LAT sitting, LAT standing PERIPHERAL IV DATA: Not applicable SIGNED BY: Delilah Richards May 11, 2024 10:54 AM documented in this encounterThe [facility] Hospital03-05-2025 NoteHNO ID: [id number] Author: PRATIBHA ESPITIA Tech Service: ? Author Type: Laundry Housekeeper Type: Progress Notes Filed: 05/11/2024 10:55 Note Text: Radiology Service Progress Note PATIENT NAME: Azalea Mott DATE OF SERVICE: May 11, 2024 TIME: 10:54 AM PATIENT IDENTITY VERIFICATION COMPLETED USING TWO (2) IDENTIFIERS: Name and Date of confirmed by patient verbally. FALL SCREENING: Has the patient had 2 falls in the last year or 1 fall with injury or currently using an Ambulatory Assistive Device (Walker, Cane, Wheelchair, Crutches, etc.)? No PATIENT GENDER DATA: Assigned female at . status: : No status: NO. PATIENT RELEVANT IMPLANT DATA REVIEWED: Not Applicable PATIENT PRESENTS WITH AN IMPLANTABLE OR ATTACHED CORPORATE DIRECTOR: No RADIOLOGY DEPARTMENT: General X-ray: Exam(s) Completed: Spine X-Ray(s): Lumbar LAT sitting, LAT standing PERIPHERAL IV DATA: Not applicable SIGNED BY: Delilah Richards May 11, 2024 10:54 AMC[facility] [id number] History of Present illness Narrative* Eligio Gibbons MD - 05/11/2024 10:40 AM EST Images from the original note were not included. CONSULT ORTHOPAEDIC: HIP PRIMARY CARE PHYSICIAN: Navdeep Ulloa MD REFERRING PROVIDER: Bryan Franks[address] [facility] [address] ASSESSMENT & PLAN This is a 74-year-old female presents with severe right hip pain. Patient states she has had right hip pain for the last year but worse over the past few months. Patient has x-ray showing severe degenerative changes with complete joint space narrowing. Patient unfortunately has this affect her activities of daily living as well as her hobbies. And she cannot enjoy them. Patient has BMI of 34. Does have history of CKD stage III, no history of diabetes and history of blood clots history of blood thinners no centimeters past medication history of smoking no history of diabetes. Has taken Mobic for the pain with no improvement. Patient has failed conservative treatment for with regards to their R hip degenerative disease. Discussed surgical treatment in the form of a total hip replacement to address their condition. Discussed the benefits of the operation as well as the risks which include infection, dislocation, sciatic nerve palsy, dislocation, fracture, loosening of the components, DVT/PE, further need for revision surgery, and other complications related to anesthesia. Discussed various approaches used for total hip arthroplasty including posterior and Anterior-Based Muscle Sparing (ABMS). Patient understands the procedure, risks, and benefits and wishes to proceed with a R posterior total hip arthroplasty. Will schedule appointment for Preop Anesthesia Evaluation. The surgery will be [facility]. Surgery: R Kvng Posterior SYLVESTER DVT ppx: ASA Abx: Ancef TXA: IV Eligio Gibbons MD Impression: Right Hip Severe Degenerative Osteoarthritis, Primary Diagnoses: No diagnosis found. Based upon the evaluation today and after discussions with Azalea Mott, Azalea Mott has significant, worsening pain at the hip. This pain is increased with activity and weight bearing, and interferes with activities of daily living. These symptoms have continued despite a number of non-surgical measures, including a trial of oral pain medication (for at least 12 weeks). At this point, thepatient will not benefit from further PT due to the severity of their condition. The patient's physical examination is consistent with limitations in range of motion, pain with passive range of motion, and an antalgic gait. These examination findings are corroborated by imaging findings of joint space narrowing, periarticular osteophyte formation, and subchondral sclerosis. The patient has been treated by the practice and all reasonable treatments have failed to control the disease, which causes significant pain and limits activities of daily living. The patient has failed conservative treatme nt and joint replacement surgery was discussed and agreed upon by both provider and patient. The patient has elected to proceed with surgical management to improve function and relieve pain refractory to non-surgical measures: Right Primary Total Hip Arthroplasty as evidenced by six months of unsuccessful non-operative treatment as outlined in the HPI below. Surgery Details Date and Location: At [place] . Implants: [place] Robotic: Yes The risks and benefits of surgery were discussed at length including but not limited to the risks of infection, bleeding, nerve or blood vessel injury, deep venous thrombosis, pulmonary embolism, , paralysis, hip dislocation, leg length discrepancy (including requiring use of permanent shoe lift), bone fracture, component loosening or failure requiring re-operation or amputation. Informed consent was obtained and the patient was scheduled. We also discussed fixation strategies including cement and cementless fixation and modern alternative bearings including metal or ceramic with cross-linked polyethylene, lhhcboi-im-ajbtyos and gjtjy-sd-ynuwl as well as advantages and disadvantages of each. We also discussed less invasive surgical approaches and reported benefits and risks of these approaches. The patient has been ordered: No orders found for this visit on 05/11/24. Anemia Screen Albumin Level HbA1C ts CONSULTS: IMPACT/PACE Consult for preoperative clearance. Risk Factors for Total Knee Arthroplasty (TKA) Major Risk Factors Obesity Moderate Risk High: BMI > 40 Moderate: BMI 30-40 Normal: BMI < 30 Diabetes normal High: A1C > 8 Moderate: A1C 7-8 Normal: A1C < 7 Hx of DVT / PE normal High: dx of DVT / PE Normal: no dx of DVT / PE Smoking normal High: Current smoker Normal: Non smoker Narcotics Use normal High:NarxCare >=300 Moderate: 100-299 Normal: 0-99 Depression normal High: PHQ-9 >14 Moderate: PHQ-9 5-14 Normal: PHQ-9 < 5 Area Deprivation Index (GIFTY) Unknown Risk High: GIFTY Score > 75 Moderate: GIFTY 50-75 Normal: GIFTY < 50 Obesity: weight management recommended BMI Readings from Last 3 Encounters: 03/31/24 : 34.01 kg/m 01/27/24 : 34.11 kg/m 09/02/23 : 32.71 kg/m Area Deprivation Index (GIFTY) 01/24/2022 07/24/2022 GIFTY Score National Score 63 58 Patient Health Questionnaire (PHQ-9) 04/23/2023 01/27/2024 05/10/2024 PHQ-9 PHQ-2 Score 0 0 0 (0-4) minimal depression, (5-9) mild depression, (10-14) moderate depression, (15-19) moderately severe depression, (20-27) severe depression Bone Density Risk Screen Azalea Mott is at risk for bone loss and has not had a bone densitometry scan in the last 2 years (date of last scan: 07/19/2018). Recommend a bone densitometry scan and if indicated on the bone density results, a consult to a bone health specialist (Rheumatology, Endocrinology, or Women's Health) for bone assessment. Risk Factors: Dx of Chronic Kidney Disease (CKD) Prednisone or use of systemic steroids Dx of Rheumatoid Arthritis Additional Risk Factors Obstructive Sleep Apnea (SIOBHAN) Malnutrition: No Malnutrition Screening Tool (MST) score on file- please complete the MST screeningtool (click here to open) and refresh the note. ACTIVE PROBLEM LIST Hearing Loss in Left Ear Primary Osteoarthritis of Right Hip Hyperlipidemia Ldl Goal <100 Hypertension, Essential Si[place]han On Cpap Obesity, Class I, Bmi 30-34.9 Chronic Kidney Insufficiency, Stage 3 (Moderate) (Hcc) Impaired Fasting Glucose Venous Insufficiency SUBJECTIVE CHIEF COMPLAINT: Hip Pain HPI: Azalea Mott is a 74 year old patient . Azalea Mott has had progressive problems with the hip(s) most of the day over the past 1 year(s) interfering with activities which include walking 2 blocks and rising from a sitting position. The problem began limiting activities 1-3 years ago. Azalea reports a current pain level of 8 (Hip-Right). She describes the pain as Sharp. The pain is Intermittent . Interventions tried include Medication, Reposition. PROMIS Physical Function Score Descriptive Summary for PROMIS Physical Function T-score = 42 (Percentile 21) Much difficulty - Do 2 hours of physical labor. Some difficulty - Walk more than a mile (1.6 km). 03/21/2024 05/10/2024 PROMIS CAT Physical Function T-Score 45 (within normal limits) 42 (mild dysfunction) Percentile 31 21* Proxy-reported FUNCTIONAL STATUS: Do yardwork, such as raking leaves, weeding,or pushing a power mower (4.50 METs) PREVIOUS TREATMENTS: Last hip-related PT visit: 04/14/2024 (Hip - Right) Current Anti-Inflammatory medications: meloxicam Past anti-inflammatory medications (not necessarily for this reason for visit): ibuprofen, meloxicam, naproxen, prednisone Medical: RX NSAIDS for 3 Months or Greater (meloxicam (Mobic)) REVIEW OF SYSTEMS: GENERAL: Denies fever, chills malaise and weight loss.. PAIN ASSESSMENT: See HPI. CARDIOVASCULAR: Denies chest pain, history of A-fib, valvular disease, hypertension, CHF or pacemaker/ICD.. RESPIRATORY: Denies SOB, sputum production, dyspnea, COPD and hemoptysis.. MUSCULOSKELETAL: See HPI. NEURO: Denies CVA, seizures, headaches.. ENDOCRINE: Denies diabetes, thyroid disease.. No data to display PAST MEDICAL HISTORY Diagnosis Date Cholelithiasis with acute cholecystitis with biliary obstruction 09/2020 Chronic otitis media of both ears 1954 COVID-19 01/30/2021 home antigen test Diverticulosis of colon (without mention of hemorrhage) Diverticulosis Hearing loss in left ear 03/27/2009 Hereditary and idiopathic peripheral neuropathy Hyperlipidemia LDL goal <100 01/18/2016 Hypertension, essential 01/02/2020 Obesity, Class I, BMI 30-34.9 10/25/2020 SIOBHAN (obstructive sleep apnea) 01/27/2020 Personal history of colonic polyps 10/18/2004 hyperplastic Colon polyps Unspecified hemorrhoids without mention of complication Hemorrhoids PAST SURGICAL HISTORY Procedure Laterality Date ADENOIDECTOMY PRIMARY <AGE 13 Adenoidectomy COLONOSCOPY FLX DX W/COLLJ SPEC WHEN PFRMD 10/18/2004 Colonoscopy-repeat in COLONOSCOPY FLX DX W/COLLJ SPEC WHEN PFRMD 02/13/2017 [id number] 10 years HYSTEROSCOPY BX W/WO D&C 12/2011 endometrial polyp LAPAROSCOPIC CHOLECYSTECTOMY 09/24/2020 LAPS ABD PRTM&OMENTUM DX W/WO SPEC BR/WA SPX Laparoscopy MASTOIDECTOMY,COMPLETE Left 1955 Mastoidectomy, left TONSILLECTOMY PRIMARY/SECONDARY <AGE 13 Tonsillectomy FAMILY HISTORY Problem Relation Age of Onset Hypertension Mother Asthma Mother Diabetes Mother COPD Mother other (crohns [Other]) Mother Cancer Father NON HODGKINS LYMPHOMA Heart Father CHF Stroke Father age 82 Heart Sister CHF other (diabetes mellitus [Other]) Sister Hypertension Sister Pneumonia Sister Fibromyalgia Sister Kidney Disease Sister Pneumonia Brother other (Covid 19 sequelae) Brother No Known Problems Brother No Known Problems Brother Diabetes Maternal Grandmother Stroke Paternal Grandfather Tuberculosis Paternal Grandfather Social History Tobacco Use Smoking status: Never Smokeless tobacco: Never Vaping Use Vaping status: Never Used Substance Use Topics Alcohol use: No Drug use: No ALLERGIES: [place] [Hydrocodone-Acetaminophen] MEDICATIONS: atorvastatin (LIPITOR) 10 mg tablet Take 1 tablet by mouth daily at bedtime. For cholesterol. meloxicam (MOBIC) 15 mg tablet Take 1 tablet by mouth once daily. (Patient not taking: Reported on 04/22/2024) lisinopril (ZESTRIL) 10 mg tablet Take 1 tablet by mouth once daily. hydroCHLOROthiazide 25 mg tablet Take 1 tablet by mouth once daily. CPAP CPAP Supplies, All Necessary equipment including tubing and full mask ICD G47.33 HAIR, SKIN AND NAILS, BIOTIN, ORAL Take 2 tablets by mouth once daily. diphenhydrAMINE-Acetaminophen (TYLENOL PM EXTRA STRENGTH) 25-500 mg tab At bedtime for sleep ascorbic acid (VITAMIN C ORAL) Take 1 tablet by mouth once daily. elderberry fruit (ELDERBERRY ORAL) Take 2 Doses by mouth once daily. CPAP 30 day download for And please send chin strap Auto PAP @ 5-20 cm of water with humidification. Mask (per patient preference) optional chin strap (if indicated) , filters, tubing, humidifier andlifetime supplies. TURMERIC ORAL Take by mouth once daily. With curcumin Black Cohosh 40 mg tab Take 1 tablet by mouth. Take 1 tablet every other day ferrous sulfate 325 mg (65 mg iron) tablet Take 650 mg by mouth daily with breakfast. cholecalciferol (VITAMIN D3) 50 mcg (2,000 unit) tablet Take by mouth. Fiber Cap Take 3 capsules by mouth once daily. multivitamins(DAILY MULTIVITAMIN TAB) Take one(1) tablet daily. OBJECTIVE PHYSICAL EXAM There were no vitals taken for this visit. All other systems deferred. GENERAL: Appears healthy, well-nourished, no deformities. HABITUS: Normal GAIT: Antalgic to the right HIP EXAM: Right: ROM: Extension: 10 degree flexion contracture Flexion: 80 degrees Internal Rotation: 10 degrees External Rotation: 20 degrees Abduction: 20 degrees Adduction: 25 degrees Strength: Abduction 5/5 and Flexion 5/5 Palpation: ttp groin Log roll: painful. Straight leg raise: Positive, reproducing hip symptoms Neurovascular Status: Sensation Intact, Moves foot and ankle up & down, and 2+ dorsalis pedis DATA: Diagnostic tests reviewed for today's visit: Right hip X-Ray: Severe degenerative changes, Complete loss of superior joint space , and Osteophytes The following conditions were addressed during the office visit today: Obesity - Weight management strategies were discussed including diet and exercise. A Consult to Weight Management will be completed to follow up on the plan of care. SIGNATURE: Eligio Gibbons MD PATIENT NAME: Azalea Mott DATE: May 11, 2024 TIME: 7:25 AM I spent a total of approximately 65 minutes on the date of the service which included preparing to see the patient, [id number] patient care, completing clinical documentation, obtaining and/or reviewing separately obtained history, performing a medically appropriate examination, counseling and educating the patient/family/caregiver, ordering medications, tests, or procedures, communicating withother HCPs (not separately reported), independently interpreting results (not separately reported),communicating results to the patient/family/caregiver, and care coordination (not separately reported). documented in this encounterThe [facility] Hospital03-05-2025 Instructions* Patient Instructions* Eligio Gibbons MD - 05/11/2024 10:40 AM EST Instructions for Blood Management Decreasing the need for blood transfusions after surgery can help your body heal faster and help your body fight infection better. Blood Management will check your blood and iron levels to see if youwould benefit from having treatment to help increase your blood counts before your surgery. What do you need to do? 1. Go and have your labs (CBC, Ferritin, Iron Studies) drawn today or within the next three days atthe nearest [facility] lab. If you would like, you can go today, following your appointment, to any of our outpatient labs. 2. If it is determined that you would benefit from treatment, someone from the Blood Management Department will call you. If we call you, we will then give further instructions for iron replacement. If you do not hear from Blood Management, your lab results were okay and you do not need additional iron replacement. Questions? Contact us: If you are having surgery at [facility] or If you are having surgery at [place], [place], [facility] , [place], [place], [place], [facility], or [facility] NoteHNO ID: [id number] Author: ELIGIO GIBBONS MD Service: ? Author Type: Physician Type: Progress Notes Filed: 05/11/2024 10:41 Note Text: CONSULT ORTHOPAEDIC: HIP PRIMARY CARE PHYSICIAN: Navdeep Ulloa MD REFERRING PROVIDER: Bryan Linda [address] [facility] [address] ASSESSMENT AND PLAN This is a 74-year-old female presents with severe right hip pain. Patient states she has had right hip pain for the last year but worse over the past few months. Patient has x-ray showing severe degenerative changes with complete joint space narrowing. Patient unfortunately has this affect her activities of daily living as well as her hobbies. And she cannot enjoy them. Patient has BMI of 34. Does have history of CKD stage III, no history of diabetes and history of blood clots history of blood thinners no centimeters past medication history of smoking no history of diabetes. Has taken Mobic for the pain with no improvement. Patient has failed conservative treatment for with regards to their R hip degenerative disease. Discussed surgical treatment in the form of a total hip replacement to address their condition. Discussed the benefits of the operation as well as the risks which include infection, dislocation, sciatic nerve palsy, dislocation, fracture, loosening of the components, DVT/PE, further need for revision surgery, and other complications related to anesthesia. Discussed various approaches used for total hip arthroplasty including posterior and Anterior-Based Muscle Sparing (ABMS). Patient understands the procedure, risks, and benefits and wishes to proceed with a R posterior total hip arthroplasty. Will schedule appointment for Preop Anesthesia Evaluation. The surgery will be scheduled for [facility]. Surgery: R Kvng Posterior SYLVESTER DVT ppx: ASA Abx: Ancef TXA: IV Eligio Gibbons MD Impression: Right Hip Severe Degenerative Osteoarthritis, Primary Diagnoses: No diagnosis found. Based upon the evaluation today and after discussions with Azalea Mott, Azalea Vanesa Mott has significant, worsening pain at the hip. This pain is increased with activity and weight bearing, and interferes with activities of daily living. These symptoms have continued despite a number of non-surgical measures, including a trial of oral pain medication (for at least 12 weeks). At this point, the patient will not benefit from further PT due to the severity of their condition. The patient's physical examination is consistent with limitations in range of motion, pain with passive range of motion, and an antalgic gait. These examination findings are corroborated by imaging findings of joint space narrowing, periarticular osteophyte formation, and subchondral sclerosis. The patient has been treated by the practice and all reasonable treatments have failed to control the disease, which causes significant pain andlimits activities of daily living. The patient has failed conservative treatment and joint replacement surgery was discussed and agreed upon by both provider and patient. The patient has elected to proceed with surgical management to improve function and relieve pain refractory to non-surgical measures: Right Primary Total Hip Arthroplasty as evidenced by six months of unsuccessful non-operative treatment as outlined in the HPI below. Surgery Details Date and Location: At [place] . Implants: [employer]: Yes The risks and benefits of surgery were discussed at length including but not limited to the risks of infection, bleeding, nerve or blood vessel injury, deep venous thrombosis, pulmonary embolism, , paralysis, hip dislocation, leg length discrepancy (including requiring use of permanent shoe lift), bone fracture, component loosening or failure requiring re-operation or amputation. Informed consent was obtained and the patient was scheduled. We also discussed fixation strategies including cement and cementless fixation and modern alternative bearings including metal or ceramic with cross-linked polyethylene, [id number] and [id number] as well as advantages and disadvantages of each. We also discussed less invasive surgical approaches and reported benefits and risks of these approaches. The patient has been ordered: No orders found for this visit on 05/11/24. Anemia Screen Albumin Level HbA1C ts CONSULTS: IMPACT/PACE Consult for preoperative clearance. Risk Factors for Total Knee Arthroplasty (TKA) Major Risk Factors Obesity Moderate Risk High: BMI > 40 Moderate: BMI 30-40 Normal: BMI < 30 Diabetes normal High: A1C > 8 Moderate: A1C 7-8 Normal: A1C < 7 Hx of DVT / PE normal High: dx of DVT / PE Normal: no dx of DVT / PE Smoking normal High: Current smoker Normal: Non smoker Narcotics Use normal High:NarxCare >=300 Moderate: 100-299 Normal: 0-99 Depression normal High: PHQ-9 >14 Moderate: PHQ-9 5-14 Normal: PHQ-9 (more content not included)...[facility]02-14-2025 NoteHNO ID: [id number] Author: BRYAN LINDA, DO Service: ? Author Type: Physician Type: Progress Notes Filed: 04/22/2024 11:25 Note Text: SERVICE DATE: April 22, 2024 PCP: Navdeep Ulloa MD Subjective Patient ID: Azalea is a 74 year old female. Chief Complaint: Patient presents with: 9 week 2 days post visit OA right hip PAIN EVALUATION 04/22/2024 1045 Pain Level: 8 Pain Location: Hip-Right Description: Sharp Duration Amount of Time: -- ongoing Frequency: Intermittent Intervention/Comfort measure: Exercise HPI Patient presents today for follow-up of right hip arthritis. Been discharged from physical therapy due to been maximizing improvement. She states that she continues to have hip and leg pain that is limiting her ability to be active. She would like to discuss next steps. Review of Systems ACTIVE PROBLEM LIST Hearing Loss in Left Ear Primary Osteoarthritis of Right Hip Hyperlipidemia Ldl Goal <100 Hypertension, Essential Siobhan On Cpap Obesity, Class I, Bmi 30-34.9 Chronic Kidney Insufficiency, Stage 3 (Moderate) (Hcc) Impaired Fasting Glucose Venous Insufficiency PAST MEDICAL HISTORY Diagnosis Date Cholelithiasis with acute cholecystitis with biliary obstruction 09/2020 Chronic otitis media of both ears 1955 COVID-19 01/30/2021 home antigen test Diverticulosis of colon (without mention of hemorrhage) Diverticulosis Hearing loss in left ear 03/27/2009 Hereditary and idiopathic peripheral neuropathy Hyperlipidemia LDL goal <100 01/18/2016 Hypertension, essential 01/02/2020 Obesity, Class I, BMI 30-34.9 10/25/2020 SIOBHAN (obstructive sleep apnea) 01/27/2020 Personal history of colonic polyps 10/18/2004 hyperplastic Colon polyps Unspecified hemorrhoids without mention of complication Hemorrhoids PAST SURGICAL HISTORY Procedure Laterality Date ADENOIDECTOMY PRIMARY Adenoidectomy COLONOSCOPY FLX DX W/COLLJ SPEC WHEN PFRMD 10/18/2004 Colonoscopy-repeat in -2014 COLONOSCOPY FLX DX W/COLLJ SPEC WHEN PFRMD 02/13/2017 [id number] 10 years HYSTEROSCOPY BX W/WO DANDC 12/2011 endometrial polyp LAPAROSCOPIC CHOLECYSTECTOMY 09/24/2020 LAPS ABD PRTMANDOMENTUM DX W/WO SPEC BR/WA SPX Laparoscopy MASTOIDECTOMY,COMPLETE Left 1955 Mastoidectomy, left TONSILLECTOMY PRIMARY/SECONDARY Tonsillectomy FAMILY HISTORY Problem Relation Age of Onset Hypertension Mother Asthma Mother Diabetes Mother COPD Mother other (crohns [Other]) Mother Cancer Father NON HODGKINS LYMPHOMA Heart Father CHF Stroke Father age 82 Heart Sister CHF other (diabetes mellitus [Other]) Sister Hypertension Sister Pneumonia Sister Fibromyalgia Sister Kidney Disease Sister Pneumonia Brother other (Covid 19 sequelae) Brother No Known Problems Brother No Known Problems Brother Diabetes Maternal Grandmother Stroke Paternal Grandfather Tuberculosis Paternal Grandfather Social History Tobacco Use Smoking status: Never Smokeless tobacco: Never Vaping Use Vaping status: Never Used Substance Use Topics Alcohol use: No Drug use: No ALLERGIES Allergen Reactions [place] [Hydrocodone-* Other: See Comments Weird dreams. MEDICATIONS: atorvastatin (LIPITOR) 10 mg tablet Take 1 tablet by mouth daily at bedtime. For cholesterol. meloxicam (MOBIC) 15 mg tablet Take 1 tablet by mouth once daily. (Patient not taking: Reported on 04/22/2024) lisinopril (ZESTRIL) 10 mg tablet Take 1 tablet by mouth once daily. hydroCHLOROthiazide 25 mg tablet Take 1 tablet by mouth once daily. CPAP CPAP Supplies, All Necessary equipment including tubing and full mask ICD G47.33 HAIR, SKIN AND NAILS, BIOTIN, ORAL Take 2 tablets by mouth once daily. diphenhydrAMINE-Acetaminophen (TYLENOL PM EXTRA STRENGTH) 25-500 mg tab At bedtime for sleep ascorbic acid (VITAMIN C ORAL) Take 1 tablet by mouth once daily. elderberry fruit (ELDERBERRY ORAL) Take 2 Doses by mouth once daily. CPAP 30 day download for And please send chin strap Auto PAP @ 5-20 cm of water with humidification. Mask (per patient preference) optional chin strap (if indicated) , filters, tubing, humidifier and lifetime supplies. TURMERIC ORAL Take by mouth once daily. With curcumin Black Cohosh 40 mg tab Take 1 tablet by mouth. Take 1 tablet every other day ferrous sulfate 325 mg (65 mg iron) tablet Take 650 mg by mouth daily with breakfast. cholecalciferol (VITAMIN D3) 50 mcg (2,000 unit) tablet Take by mouth. Fiber Cap Take 3 capsules by mouth once daily. multivitamins(DAILY MULTIVITAMIN TAB) Take one(1) tablet daily. Allergies, medications, past surgical history, family history and past medical history were reviewed per this encounter. Objective Ortho Exam 74-year-old female, pleasant, no acute distress. Palpation of the right hip restricted range of motion in flexion abduction internal and external rotation. No significant lower extremity edema. N (more content not included)...[facility]02-14-2025 History of Present illness Narrative* Bryan Linda V, DO - 04/22/2024 11:19 AM EST Images from the original note were not included. SERVICE DATE: April 22, 2024 PCP: Navdeep Ulloa MD Subjective Patient ID: Azalea is a 74 year old female. Chief Complaint: Patient presents with: 9 week 2 days post visit OA right hip PAIN EVALUATION 04/22/2024 1045 Pain Level: 8 Pain Location: Hip-Right Description: Sharp Duration Amount of Time: -- ongoing Frequency: Intermittent Intervention/Comfort measure: Exercise HPI Patient presents today for follow-up of right hip arthritis. Been discharged from physical therapy due to been maximizing improvement. She states that she continues to have hip and leg pain that is limiting her ability to be active. She would like to discuss next steps. Review of Systems ACTIVE PROBLEM LIST Hearing Loss in Left Ear Primary Osteoarthritis of Right Hip Hyperlipidemia Ldl Goal <100 Hypertension, Essential Siobhan On Cpap Obesity, Class I, Bmi 30-34.9 Chronic Kidney Insufficiency, Stage 3 (Moderate) (Hcc) Impaired Fasting Glucose Venous Insufficiency PAST MEDICAL HISTORY Diagnosis Date Cholelithiasis with acute cholecystitis with biliary obstruction 09/2020 Chronic otitis media of both ears 1955 COVID-19 01/30/2021 home antigen test Diverticulosis of colon (without mention of hemorrhage) Diverticulosis Hearing loss in left ear 03/27/2009 Hereditary and idiopathic peripheral neuropathy Hyperlipidemia LDL goal <100 01/18/2016 Hypertension, essential 01/02/2020 Obesity, Class I, BMI 30-34.9 10/25/2020 SIOBHAN (obstructive sleep apnea) 01/27/2020 Personal history of colonic polyps 10/18/2004 hyperplastic Colon polyps Unspecified hemorrhoids without mention of complication Hemorrhoids PAST SURGICAL HISTORY Procedure Laterality Date ADENOIDECTOMY PRIMARY <AGE 13 Adenoidectomy COLONOSCOPY FLX DX W/COLLJ SPEC WHEN PFRMD 10/18/2004 Colonoscopy-repeat in COLONOSCOPY FLX DX W/COLLJ SPEC WHEN PFRMD 02/13/2017 [id number] 10 years HYSTEROSCOPY BX W/WO D&C 12/2011 endometrial polyp LAPAROSCOPIC CHOLECYSTECTOMY 09/24/2020 LAPS ABD PRTM&OMENTUM DX W/WO SPEC BR/WA SPX Laparoscopy MASTOIDECTOMY,COMPLETE Left 1955 Mastoidectomy, left TONSILLECTOMY PRIMARY/SECONDARY <AGE 13 Tonsillectomy FAMILY HISTORY Problem Relation Age of Onset Hypertension Mother Asthma Mother Diabetes Mother COPD Mother other (crohns [Other]) Mother Cancer Father NON HODGKINS LYMPHOMA Heart Father CHF Stroke Father age 82 Heart Sister CHF other (diabetes mellitus [Other]) Sister Hypertension Sister Pneumonia Sister Fibromyalgia Sister Kidney Disease Sister Pneumonia Brother other (Covid 19 sequelae) Brother No Known Problems Brother No Known Problems Brother Diabetes Maternal Grandmother Stroke Paternal Grandfather Tuberculosis Paternal Grandfather Social History Tobacco Use Smoking status: Never Smokeless tobacco: Never Vaping Use Vaping status: Never Used Substance Use Topics Alcohol use: No Drug use: No ALLERGIES Allergen Reactions [place] [Hydrocodone-* Other: See Comments Weird dreams. MEDICATIONS: atorvastatin (LIPITOR) 10 mg tablet Take 1 tablet by mouth daily at bedtime. For cholesterol. meloxicam (MOBIC) 15 mg tablet Take 1 tablet by mouth once daily. (Patient not taking: Reported on 04/22/2024) lisinopril (ZESTRIL) 10 mg tablet Take 1 tablet by mouth once daily. hydroCHLOROthiazide 25 mg tablet Take 1 tablet by mouth once daily. CPAP CPAP Supplies, All Necessary equipment including tubing and full mask ICD G47.33 HAIR, SKIN AND NAILS, BIOTIN, ORAL Take 2 tablets by mouth once daily. diphenhydrAMINE-Acetaminophen (TYLENOL PM EXTRA STRENGTH) 25-500 mg tab At bedtime for sleep ascorbic acid (VITAMIN C ORAL) Take 1 tablet by mouth once daily. elderberry fruit (ELDERBERRY ORAL) Take 2 Doses by mouth once daily. CPAP 30 day download for And please send chin strap Auto PAP @ 5-20 cm of water with humidification. Mask (per patient preference) optional chin strap (if indicated) , filters, tubing, humidifier andlifetime supplies. TURMERIC ORAL Take by mouth once daily. With curcumin Black Cohosh 40 mg tab Take 1 tablet by mouth. Take 1 tablet every other day ferrous sulfate 325 mg (65 mg iron) tablet Take 650 mg by mouth daily with breakfast. cholecalciferol (VITAMIN D3) 50 mcg (2,000 unit) tablet Take by mouth. Fiber Cap Take 3 capsules by mouth once daily. multivitamins(DAILY MULTIVITAMIN TAB) Take one(1) tablet daily. Allergies, medications, past surgical history, family history and past medical history were reviewed per this encounter. Objective Ortho Exam 74-year-old female, pleasant, no acute distress. Palpation of the right hip restricted range of motion in flexion abduction internal and external rotation. No significant lower extremity edema. No focal sensory neural deficits. Assessment/Plan ASSESSMENT Diagnosis (M16.11) Arthritis of right hip (primary encounter diagnosis) No orders found for this visit on 04/22/24. PLAN Patient is referred for surgical consultation to discuss SYLVESTER. FOLLOW-UP: No follow-ups on file. SIGNATURE: Bryan Linda DO PATIENT NAME: Azalea Mott DATE: April 22, 2024 TIME: 11:19 AM * Wanda Meadows MA - 04/22/2024 10:44 AM EST AMB ROOMING INTAKE FLOWSHEET DATA Risk Screening Do you have concerns about personal safety or safety in the home?: No Pain Pain Level: 8 Pain Location: Hip-Right Description: Sharp Duration Amount of Time: (ongoing) Frequency: Intermittent Intervention/Comfort measure: Exercise Patient here today for 9 weeks 2 days post visit. Returning after PT visits. Did not see improvement with PT. Stopped taking Meloxicam because it does not hold her pain. She switched back to ibuprofen because she can take more when the pain starts back up. [facility] NoteHNO ID: [id number] Author: WANDA MEADOWS MA Service: ? Author Type: Inspector Type Type: Progress Notes Filed: 04/22/2024 11:25 Note Text: AMB ROOMING INTAKE FLOWSHEET DATA Risk Screening Do you have concerns about personal safety or safety in the home?: No Pain Pain Level: 8 Pain Location: Hip-Right Description: Sharp Duration Amount of Time: (ongoing) Frequency: Intermittent Intervention/Comfort measure: Exercise Patient here today for 9 weeks 2 days post visit. Returning after PT visits. Did not see improvement with PT. Stopped taking Meloxicam because it does not hold her pain. She switched back to ibuprofen because she can take more when the pain starts back up.[facility]02-06-2025 NoteHNO ID: [id number] Author: PEGGY PHILLIPS, PT Service: ? Author Type: Physical Therapist Type: Progress Notes Filed: 04/14/2024 13:14 Note Text: Episode Visit Count: 5 Therapist That Will Accept/Oversee The Plan Of Care: Peggy Phillips Start of Care Date: 03/14/24 Onset Date: 01/08/24 Plan of Care Certification Date: 03/14/24 Next Certification Due Date: 05/12/24 REHABILITATION AND SPORTS THERAPY PHYSICAL THERAPY DISCONTINUANCE OF CARE PLAN OF CARE UPDATE: Assessment: Azalea Alexis Mott is discontinued from Physical Therapy services due to maximal benefit.. Patient was seen for 5 visits from Start of Care Date: 03/14/24 to 04/14/2024 and treatment included: Therapeutic exercise and Manual therapy. Goals updated on 04/14/2024. Goals for Episode of Care: established 03/14/24 [place] in home exercise program. Met Patient will decrease pain rating by 2 points to meet minimal clinical important difference for numeric pain rating scale. Not met Patient will increase passive ROM of R hip to min to mod limitations to allow pt to to improve postural alignment and to improve performance of ADLs. Not met Patient will demonstrate increase in RLE strength to 4+/5 during manual muscle testing in order to improve function for basic self-care tasks, home management tasks, leisure / recreation skills, and prior functional tasks. Not met Perform rising from a chair, sitting, and standing with decreased report of symptoms/pain in 6-8 weeks. Not met Perform sleeping without pain. Not met SUBJECTIVE: Patient notes that new this week her R knee and lumbar spine are both hurting her, more of an annoying constant ache. R hip is sharper, hurting worse and more frequent. She notes that she is having a harder time sitting for prolonged periods, sleep is more difficult, and standing/walking is less tolerable unless she finds the perfect position for her foot to be in. She is also having a hard time reaching her foot. She is unable to wash her RLE in the shower due to decreased ROM and pain. Functional Limitations: sitting, rising from a chair, standing, walking, stair negotiation, bending, heavy exertion, lifting Pain: Pain Pain Level: 8 Pain Location: Hip - Right Description: Sharp, Aching, Sore Frequency: Continuous PROMIS Scales 03/21/2024 Higher is Better Phys Func - T Score 45 (within normal limits) Phys Func - Percentile 31 Self-Eff Symptom - T Score 46 (Average) Self-Eff Symptom - Percentile 34 T-scores: mean of general population = 50. 5 points is clinically meaningfully difference Percentiles provide an indication of how the patient's score ranks in relation to the general population. Higher percentile rankings indicate better function/quality of life. 50th percentile is the average of the general population and indicates half of respondents had a worse score. OBJECTIVE MEASURES WITH LEVEL OF FUNCTION: LE PROM R LE PROM: Major limitations in hip flexion, IR and adduction. Moderate limitations in R hip ER and abduction LE Strength R LE Strength: 4-/5 grossly TREATMENT: Therapeutic Exercise: 1: Objective measures obtained 2: Reviewed HEP and discussed alterations/modifications to make based on pain/symptoms Skilled Intervention: Patient was educated in proper exercise technique and purpose for exercises. Skilled judgment was used in selection of appropriate interventions. Correct performance of therapeutic exercises was facilitated with verbal cuing. Billing Therapeutic Exercise Treatment Minutes: 29 Skilled Treatment Time Minutes (timed and untimed codes): 29 Total Session Time (minutes): 29 Session Start Time : 1145 Session Stop Time : 1214 Peggy Phillips, [facility]02-06-2025 History of Present illness Narrative* Peggy Phillips, PT - 04/14/2024 1:08 PM EST Episode Visit Count: 5 Therapist That Will Accept/Oversee The Plan Of Care: Peggy Phillips Start of Care Date: 03/14/24 Onset Date: 01/08/24 Plan of Care Certification Date: 03/14/24 Next Certification Due Date: 05/12/24 REHABILITATION AND SPORTS THERAPY PHYSICAL THERAPY DISCONTINUANCE OF CARE PLAN OF CARE UPDATE: Assessment: Azalea Mott is discontinued from Physical Therapy services due to maximal benefit..Patient was seen for 5 visits from Start of Care Date: 03/14/24 to 04/14/2024 and treatment included:Therapeutic exercise and Manual therapy. Goals updated on 04/14/2024. Goals for Episode of Care: established 03/14/24 [place] in home exercise program. Met Patient will decrease pain rating by 2 points to meet minimal clinical important difference for numeric pain rating scale. Not met Patient will increase passive ROM of R hip to min to mod limitations to allow pt to to improve postural alignment and to improve performance of ADLs. Not met Patient will demonstrate increase in RLE strength to 4+/5 during manual muscle testing in order to improve function for basic self-care tasks, home management tasks, leisure / recreation skills, and prior functional tasks. Not met Perform rising from a chair, sitting, and standing with decreased report of symptoms/pain in 6-8 weeks. Not met Perform sleeping without pain. Not met SUBJECTIVE: Patient notes that new this week her R knee and lumbar spine are both hurting her, moreof an annoying constant ache. R hip is sharper, hurting worse and more frequent. She notes that sheis having a harder time sitting for prolonged periods, sleep is more difficult, and standing/walking is less tolerable unless she finds the perfect position for her foot to be in. She is also having a hard time reaching her foot. She is unable to wash her RLE in the shower due to decreased ROM and pain. Functional Limitations: sitting, rising from a chair, standing, walking, stair negotiation, bending, heavy exertion, lifting Pain: Pain Pain Level: 8 Pain Location: Hip - Right Description: Sharp, Aching, Sore Frequency: Continuous PROMIS Scales 03/21/2024 Higher is Better Phys Func - T Score 45 (within normal limits) Phys Func - Percentile 31 Self-Eff Symptom - T Score 46 (Average) Self-Eff Symptom - Percentile 34 T-scores: mean of general population = 50. 5 points is clinically meaningfully difference Percentiles provide an indication of how the patient's score ranks in relation to the general population. Higher percentile rankings indicate better function/quality of life. 50th percentile is the average of the general population and indicates half of respondents had a worse score. OBJECTIVE MEASURES WITH LEVEL OF FUNCTION: LE PROM R LE PROM: Major limitations in hip flexion, IR and adduction. Moderate limitations in R hip ER andabduction LE Strength R LE Strength: 4-/5 grossly TREATMENT: Therapeutic Exercise: 1: Objective measures obtained 2: Reviewed HEP and discussed alterations/modifications to make based on pain/symptoms Skilled Intervention: Patient was educated in proper exercise technique and purpose for exercises. Skilled judgment was used in selection of appropriate interventions. Correct performance of therapeutic exercises was facilitated with verbal cuing. Billing Therapeutic Exercise Treatment Minutes: 29 Skilled Treatment Time Minutes (timed and untimed codes): 29 Total Session Time (minutes): 29 Session Start Time : 1145 Session Stop Time : 1214 Peggy Phillips PT [facility] NoteHNO ID: [id number] Author: PEGGY PHILLIPS PT Service: ? Author Type: Physical Therapist Type: Progress Notes Filed: 04/05/2024 09:13 Note Text: Episode Visit Count: 4 Therapist That Will Accept/Oversee The Plan Of Care: Peggy Phillips Start of Care Date: 03/14/24 Onset Date: 01/08/24 Plan of Care Certification Date: 03/14/24 Next Certification Due Date: 05/12/24 Patient Identified by Name and Date of : Yes REHABILITATION AND SPORTS THERAPY PHYSICAL THERAPY TREATMENT NOTE ASSESSMENT: Azalea Mott tolerated the session with fatigue and expected muscle soreness. She demonstrated improvements in tightness of R hip flexors after STM. The patient will continue to benefit from ongoing skilled physical therapy to progress toward set goals. PLAN FOR NEXT VISIT: Continue with STM. PN SUBJECTIVE: Pt reports that she has good days and bad days with her hip. Has not been able to do all of the exercises due to not feeling well and having a UTI. Pain: Pain Pain Level: 2 Pain Location: Hip - Right Description: Sharp, Aching Frequency: Continuous OBJECTIVE MEASURES WITH LEVEL OF FUNCTION: Soft tissue restrictions felt throughout R hip flexors TREATMENT: Therapeutic Exercise: 1: Scifit Seated Stepper x 5 minutes, seat # 13 (1:1 entire time with) 2: Clamshells 2x10 (pillow between knees, cuing for less hip flexion (~60 degrees)) 3: Pillow adduction squeezes 2x10, 1-2 sec holds 4: Heel slides 2x10 (in smaller range) Skilled Intervention: Patient was educated in proper exercise technique and purpose for exercises. Skilled judgment was used in selection of appropriate interventions. Correct performance of therapeutic exercises was facilitated with verbal and visual cuing. Manual Therapy: 1: STM over R hip flexors x 10 mintues with push to tolerance Skilled Intervention: Manual skills to improve joint mobility, ROM, and decrease pain. Utilized anatomy knowledge of the therapist, and assessment of patient's response to intervention. Billing Therapeutic Exercise Treatment Minutes: 30 Manual TherapyTreatment Minutes: 10 Skilled Treatment Time Minutes (timed and untimed codes): 40 Total Session Time (minutes): 40 Session Start Time : 1444 Session Stop Time : 1524 Sravani Felix, [employer]EL[employer] Peggy Phillips, [facility]01-27-2025 History of Present illness Narrative* Peggy Phillips, PT - 04/04/2024 2:54 PM EST Episode Visit Count: 4 Therapist That Will Accept/Oversee The Plan Of Care: Peggy Phillips Start of Care Date: 03/14/24 Onset Date: 01/08/24 Plan of Care Certification Date: 03/14/24 Next Certification Due Date: 05/12/24 Patient Identified by Name and Date of : Yes REHABILITATION AND SPORTS THERAPY PHYSICAL THERAPY TREATMENT NOTE ASSESSMENT: Azalea Mott tolerated the session with fatigue and expected muscle soreness. She demonstrated improvements in tightness of R hip flexors after STM. The patient will continue to benefit from ongoing skilled physical therapy to progress toward set goals. PLAN FOR NEXT VISIT: Continue with STM. PN SUBJECTIVE: Pt reports that she has good days and bad days with her hip. Has not been able to do all of the exercises due to not feeling well and having a UTI. Pain: Pain Pain Level: 2 Pain Location: Hip - Right Description: Sharp, Aching Frequency: Continuous OBJECTIVE MEASURES WITH LEVEL OF FUNCTION: Soft tissue restrictions felt throughout R hip flexors TREATMENT: Therapeutic Exercise: 1: Scifit Seated Stepper x 5 minutes, seat # 13 (1:1 entire time with) 2: Clamshells 2x10 (pillow between knees, cuing for less hip flexion (~60 degrees)) 3: Pillow adduction squeezes 2x10, 1-2 sec holds 4: Heel slides 2x10 (in smaller range) Skilled Intervention: Patient was educated in proper exercise technique and purpose for exercises. Skilled judgment was used in selection of appropriate interventions. Correct performance of therapeutic exercises was facilitated with verbal and visual cuing. Manual Therapy: 1: STM over R hip flexors x 10 mintues with push to tolerance Skilled Intervention: Manual skills to improve joint mobility, ROM, and decrease pain. Utilized anatomy knowledge of the therapist, and assessment of patient's response to intervention. Billing Therapeutic Exercise Treatment Minutes: 30 Manual TherapyTreatment Minutes: 10 Skilled Treatment Time Minutes (timed and untimed codes): 40 Total Session Time (minutes): 40 Session Start Time : 1444 Session Stop Time : 1524 CHEVY Fernandez PT documented [facility]The [facility] Telephone encounter Note * Telephone Encounter - Neeta Miles LPN - 04/04/2024 12:49 PM EST Patient notified of below recommendation, pharmacy has already contact the Patient that Macrobid RXis ready for pickup. Neeta Miles LPN [facility]01-27-[facility] Miscellaneous Notes* Telephone Encounter - Neeta Miles LPN - 04/04/2024 12:49 PM EST Patient notified of below recommendation, pharmacy has already contact the Patient that Macrobid RXis ready for pickup. Neeta Miles LPN * Telephone Encounter - Neeta Miles LPN - 04/04/2024 12:47 PM EST ----- Message from Navdeep Ulloa MD sent at 04/04/2024 8:38 AM EST ----- Result reviewed. Start nitrofurantoin 100 mg twice daily x 7 days for urinary tract infection. documented in [facility]The [facility] Telephone encounter Note * Telephone Encounter - Neeta Miles LPN - 04/04/2024 12:47 PM EST ----- Message from Navdeep Ulloa MD sent at 04/04/2024 8:38 AM EST ----- Result reviewed. Start nitrofurantoin 100 mg twice daily x 7 days for urinary tract infection. [facility] NoteHNO ID: [id number] Author: NAVDEEP ULLOA MD Service: ? Author Type: Physician Type: Progress Notes Filed: 03/31/2024 18:28 Note Text: This note was created using [employer]. Subjective Patient presents with: Same Day Appointment: possible UTI x 1 day, burning and frequency and blood Azalea Mott is a 74 year old female with above concerns. Review of Systems Constitutional: Negative for chills and fever. Gastrointestinal: Negative for abdominal pain. Genitourinary: Negative for flank pain. ACTIVE PROBLEM LIST Hearing Loss in Left Ear Primary Osteoarthritis of Right Hip Hyperlipidemia Ldl Goal <100 Hypertension, Essential Siobhan On Cpap Obesity, Class I, Bmi 30-34.9 Chronic Kidney Insufficiency, Stage 3 (Moderate) (Hcc) Impaired Fasting Glucose Venous Insufficiency Social History Tobacco Use Smoking status: Never Smokeless tobacco: Never Substance Use Topics Alcohol use: No Drug use: No Current Outpatient Medications Medication Sig atorvastatin (LIPITOR) 10 mg tablet Take 1 tablet by mouth daily at bedtime. For cholesterol. meloxicam (MOBIC) 15 mg tablet Take 1 tablet by mouth once daily. lisinopril (ZESTRIL) 10 mg tablet Take 1 tablet by mouth once daily. hydroCHLOROthiazide 25 mg tablet Take 1 tablet by mouth once daily. CPAP CPAP Supplies, All Necessary equipment including tubing and full mask ICD G47.33 HAIR, SKIN AND NAILS, BIOTIN, ORAL Take 2 tablets by mouth once daily. diphenhydrAMINE-Acetaminophen (TYLENOL PM EXTRA STRENGTH) 25-500 mg tab At bedtime for sleep ascorbic acid (VITAMIN C ORAL) Take 1 tablet by mouth once daily. elderberry fruit (ELDERBERRY ORAL) Take 2 Doses by mouth once daily. CPAP 30 day download for And please send chin strap Auto PAP @ 5-20 cm of water with humidification. Mask (per patient preference) optional chin strap (if indicated) , filters, tubing, humidifier and lifetime supplies. TURMERIC ORAL Take by mouth once daily. With curcumin Black Cohosh 40 mg tab Take 1 tablet by mouth. Take 1 tablet every other day ferrous sulfate 325 mg (65 mg iron) tablet Take 650 mg by mouth daily with breakfast. cholecalciferol (VITAMIN D3) 50 mcg (2,000 unit) tablet Take by mouth. Fiber Cap Take 3 capsules by mouth once daily. multivitamins(DAILY MULTIVITAMIN TAB) Take one(1) tablet daily. No current facility-administered medications for this visit. Objective BP 136/72 (BP Site: Right Arm, BP Position: Sitting, BP Cuff Size: Large Adult) Pulse 71 Temp 36.8 ?C (98.2 ?F) Resp 14 Ht 170.2 cm (5' 7) Wt 98.5 kg (217 lb 2.5 oz) SpO2 98% BMI 34.01 kg/m? Physical Exam Constitutional: Appearance: She is not ill-appearing or diaphoretic. Abdominal: Tenderness: There is no abdominal tenderness. There is no right CVA tenderness or left CVA tenderness. Latest Ref Rng 03/31/2024 GLUCOSE UA (POCT) Negative mg/dL Negative BILIRUBIN UA (POCT) Negative Negative KETONE UA (POCT) Negative mg/dL Negative SPECIFIC GRAVITY UA (POCT) 1.005 - 1.030 >=1.030 HEMOGLOBIN/BLOOD UA (POCT) Negative Moderate ! PH UA (POCT) 4.5 - 8.0 7.0 PROTEIN UA (POCT) Negative mg/dL 100 ! UROBILINOGEN UA (POCT) Normal E.U./dL 0.2 NITRITE UA (POCT) Negative Negative LEUKOCYTES UA (POCT) Negative Small ! COLOR UA (POCT) Yellow CLARITY UA (POCT) Cloudy Legend: ! Abnormal Assessment and Plan 1. Dysuria - ICD9: 788.1, ICD10: R30.0 acute - UA positive for estella esterase, hematuria, and proteinuria - Send urine for culture - Patient education for prevention given - Fluids. Shared medical decision making was done and we agreed to base treatment on culture. Result in 2-3 days. - UA DIP, URINE (POC) - BACTERIAL CULTURE, URINE Navdeep Ulloa [facility]01-23-2025 History of Present illness Narrative* Navdeep Ulloa MD - 03/31/2024 6:15 PM EST This note was created using NoteWriter. Subjective Patient presents with: Same Day Appointment: possible UTI x 1 day, burning and frequency and blood Azaleapraneeth Mott is a 74 year old female with above concerns. Review of Systems Constitutional: Negative for chills and fever. Gastrointestinal: Negative for abdominal pain. Genitourinary: Negative for flank pain. ACTIVE PROBLEM LIST Hearing Loss in Left Ear Primary Osteoarthritis of Right Hip Hyperlipidemia Ldl Goal <100 Hypertension, Essential Siobhan On Cpap Obesity, Class I, Bmi 30-34.9 Chronic Kidney Insufficiency, Stage 3 (Moderate) (Hcc) Impaired Fasting Glucose Venous Insufficiency Social History Tobacco Use Smoking status: Never Smokeless tobacco: Never Substance Use Topics Alcohol use: No Drug use: No Current Outpatient Medications Medication Sig atorvastatin (LIPITOR) 10 mg tablet Take 1 tablet by mouth daily at bedtime. For cholesterol. meloxicam (MOBIC) 15 mg tablet Take 1 tablet by mouth once daily. lisinopril (ZESTRIL) 10 mg tablet Take 1 tablet by mouth once daily. hydroCHLOROthiazide 25 mg tablet Take 1 tablet by mouth once daily. CPAP CPAP Supplies, All Necessary equipment including tubing and full mask ICD G47.33 HAIR, SKIN AND NAILS, BIOTIN, ORAL Take 2 tablets by mouth once daily. diphenhydrAMINE-Acetaminophen (TYLENOL PM EXTRA STRENGTH) 25-500 mg tab At bedtime for sleep ascorbic acid (VITAMIN C ORAL) Take 1 tablet by mouth once daily. elderberry fruit (ELDERBERRY ORAL) Take 2 Doses by mouth once daily. CPAP 30 day download for And please send chin strap Auto PAP @ 5-20 cm of water with humidification. Mask (per patient preference) optional chin strap (if indicated) , filters, tubing, humidifier andlifetime supplies. TURMERIC ORAL Take by mouth once daily. With curcumin Black Cohosh 40 mg tab Take 1 tablet by mouth. Take 1 tablet every other day ferrous sulfate 325 mg (65 mg iron) tablet Take 650 mg by mouth daily with breakfast. cholecalciferol (VITAMIN D3) 50 mcg (2,000 unit) tablet Take by mouth. Fiber Cap Take 3 capsules by mouth once daily. multivitamins(DAILY MULTIVITAMIN TAB) Take one(1) tablet daily. No current facility-administered medications for this visit. Objective BP 136/72 (BP Site: Right Arm, BP Position: Sitting, BP Cuff Size: Large Adult) Pulse 71 Temp 36.8 C (98.2 F) Resp 14 Ht 170.2 cm (5' 7) Wt 98.5 kg (217 lb 2.5 oz) SpO2 98% BMI 34.01 kg/m Physical Exam Constitutional: Appearance: She is not ill-appearing or diaphoretic. Abdominal: Tenderness: There is no abdominal tenderness. There is no right CVA tenderness or left CVA tenderness. Latest Ref Rng 03/31/2024 GLUCOSE UA (POCT) Negative mg/dL Negative BILIRUBIN UA (POCT) Negative Negative KETONE UA (POCT) Negative mg/dL Negative SPECIFIC GRAVITY UA (POCT) 1.005 - 1.030 >=1.030 HEMOGLOBIN/BLOOD UA (POCT) Negative Moderate ! PH UA (POCT) 4.5 - 8.0 7.0 PROTEIN UA (POCT) Negative mg/dL 100 ! UROBILINOGEN UA (POCT) Normal E.U./dL 0.2 NITRITE UA (POCT) Negative Negative LEUKOCYTES UA (POCT) Negative Small ! COLOR UA (POCT) Yellow CLARITY UA (POCT) Cloudy Legend: ! Abnormal Assessment and Plan 1. Dysuria - ICD9: 788.1, ICD10: R30.0 acute - UA positive for estella esterase, hematuria, and proteinuria - Send urine for culture - Patient education for prevention given - Fluids. Shared medical decision making was done and we agreed to base treatment on culture. Result in 2-3 days. - UA DIP, URINE (POC) - BACTERIAL CULTURE, URINE Navdeep Ulloa MD documented in [facility]The [facility] NoteHNO ID: [id number] Author: PEGGY PHILLIPS, PT Service: ? Author Type: Physical Therapist Type: Progress Notes Filed: 03/28/2024 15:49 Note Text: Episode Visit Count: 3 Therapist That Will Accept/Oversee The Plan Of Care: Peggy Phillips Start of Care Date: 03/14/24 Onset Date: 01/08/24 Plan of Care Certification Date: 03/14/24 Next Certification Due Date: 05/12/24 REHABILITATION AND SPORTS THERAPY PHYSICAL THERAPY TREATMENT NOTE ASSESSMENT: Azalea Mott tolerated the session with decreased symptoms. She demonstrated difficulty with R hip pain. The patient will continue to benefit from ongoing skilled physical therapy to progress toward set goals. PLAN FOR NEXT VISIT: SUBJECTIVE: Patient had increased knee and hip pain after last session with Sravani, so she stopped those exercises as well. Patient continuing to get catching in the front of the R hip upon standing after sitting for awhile Pain: Pain Pain Level: 4 Pain Location: Hip - Right Description: Sharp, Aching, Sore Frequency: Continuous OBJECTIVE MEASURES WITH LEVEL OF FUNCTION: Pain to palpate R hip flexor and patellar tendon TREATMENT: Therapeutic Exercise: 1: Scifit Seated Stepper x 5 minutes, seat # 13 (1:1 entire time with) 2: Heel slides 2x10 3: *Pillow adduction squeezes 2x10, 1-2 sec holds 4: *Clamshells 2x10 (pillow between knees, cuing for less hip flexion (~60 degrees)) 5: *Standing hip abduction 2x10 on R 6: *Standing hip extension 2x10 Skilled Intervention: Patient was educated in proper exercise technique and purpose for exercises. Skilled judgment was used in selection of appropriate interventions. Provided written instruction for home exercise program to facilitate proper performance and compliance. Correct performance of therapeutic exercises was facilitated with verbal, visual, and tactile cuing. Billing Therapeutic Exercise Treatment Minutes: 44 Skilled Treatment Time Minutes (timed and untimed codes): 44 Total Session Time (minutes): 44 Session Start Time : 1446 Session Stop Time : 1530 Peggy Phillips, [facility]01-20-2025 History of Present illness Narrative* Peggy Phillips, PT - 03/28/2024 3:48 PM EST Episode Visit Count: 3 Therapist That Will Accept/Oversee The Plan Of Care: Peggy Phillips Start of Care Date: 03/14/24 Onset Date: 01/08/24 Plan of Care Certification Date: 03/14/24 Next Certification Due Date: 05/12/24 REHABILITATION AND SPORTS THERAPY PHYSICAL THERAPY TREATMENT NOTE ASSESSMENT: Azalea Mott tolerated the session with decreased symptoms. She demonstrated difficulty with R hip pain. The patient will continue to benefit from ongoing skilled physical therapy to progress toward set goals. PLAN FOR NEXT VISIT: SUBJECTIVE: Patient had increased knee and hip pain after last session with Sravani, so she stopped those exercises as well. Patient continuing to get catching in the front of the R hip upon standing after sitting for awhile Pain: Pain Pain Level: 4 Pain Location: Hip - Right Description: Sharp, Aching, Sore Frequency: Continuous OBJECTIVE MEASURES WITH LEVEL OF FUNCTION: Pain to palpate R hip flexor and patellar tendon TREATMENT: Therapeutic Exercise: 1: Scifit Seated Stepper x 5 minutes, seat # 13 (1:1 entire time with) 2: Heel slides 2x10 3: *Pillow adduction squeezes 2x10, 1-2 sec holds 4: *Clamshells 2x10 (pillow between knees, cuing for less hip flexion (~60 degrees)) 5: *Standing hip abduction 2x10 on R 6: *Standing hip extension 2x10 Skilled Intervention: Patient was educated in proper exercise technique and purpose for exercises. Skilled judgment was used in selection of appropriate interventions. Provided written instruction for home exercise program to facilitate proper performance and compliance. Correct performance of therapeutic exercises was facilitated with verbal, visual, and tactile cuing. Billing Therapeutic Exercise Treatment Minutes: 44 Skilled Treatment Time Minutes (timed and untimed codes): 44 Total Session Time (minutes): 44 Session Start Time : 1446 Session Stop Time : 1530 Peggy Phillips PT * Peggy Phillips PT - 03/28/2024 3:21 PM EST Program_ID:[id number] Access Code: [email or web address] URL: [email or web address] Date: 03-28-2024 Prepared By: Peggy Phillips Program Notes Exercises - Supine Heel Slide - 1 x daily - 7 x weekly - 3 sets - 10 reps - Clamshell - 1 x daily - 7 x weekly - 3 sets - 10 reps - Supine Knee Extension Strengthening - 1 x daily - 7 x weekly - 3 sets - 10 reps - Standing Hip Abduction with Counter Support - 1 x daily - 7 x weekly - 3 sets - 10 reps - Standing Hip Extension with Counter Support - 1 x daily - 7 x weekly - 3 sets - 10 reps - Posterior Pelvic Tilt with Adduction Using Pillow in Hooklying - 1 x daily - 7 x weekly - 3 sets - 10 reps documented in [facility]The [facility] History of Present illness Narrative* Sravani Felix PTA - 03/21/2024 3:18 PM EST Program_ID:[id number] Access Code: [email or web address] URL: [email or web address] Date: 03-21-2024 Prepared By: Peggy Phillips Program Notes Exercises - Bent Knee Fallouts with Alternating Legs - 1 x daily - 7 x weekly - 3 sets - 10 reps - Supine Heel Slide - 1 x daily - 7 x weekly - 3 sets - 10 reps - Supine Straight Leg Raises - 1 x daily - 7 x weekly - 3 sets - 10 reps - Clamshell - 1 x daily - 7 x weekly - 3 sets - 10 reps - Sidelying Hip Abduction - 1 x daily - 7 x weekly - 3 sets - 10 reps - Seated Hamstring Stretch - 3 x daily - 7 x weekly - 1 sets - 3 reps - Seated Calf Stretch with Strap - 3 x daily - 7 x weekly - 1 sets - 3 reps * Peggy Phillips, PT - 03/21/2024 2:46 PM EST Episode Visit Count: 2 Therapist That Will Accept/Oversee The Plan Of Care: Peggy Phillips Start of Care Date: 03/14/24 Onset Date: 01/08/24 Plan of Care Certification Date: 03/14/24 Next Certification Due Date: 05/12/24 Patient Identified by Name and Date of : Yes REHABILITATION AND SPORTS THERAPY PHYSICAL THERAPY TREATMENT NOTE ASSESSMENT: Azalea Mott tolerated the session with decreased activity tolerance due to increased hip flexor discomfort and pain with exercise, fatigue, and expected muscle soreness. She demonstrated difficulty with ability to fully extended R knee due to HS tightness. The patient will continue to benefit from ongoing skilled physical therapy to progress toward set goals. PLAN FOR NEXT VISIT: Asses response to HS and calf stretching and see if pain in R hip ahs decreased since altering exercises. SUBJECTIVE: Pt reports that her hips are hurting and in a lot more pain than the first time. Pt states that she did her HEP, made her nee hurt more . The first couple of days she did okay with her exercises. Feels that her hip hurts more each day, thinks maybe the ones laying on her side made it worse. B calves are hurting today as well, unsure why. Pt now has to have her help put her R sock and shoe on, was fine prior to starting therapy. Pain: Pain Pain Level: 2 (with sitting, increases to 8-9/10 with transitioning from sitting to standing, walking is okay.) Pain Location: Hip - Right Description: Sharp, Aching Frequency: Continuous Post Treatment Pain Post Treatment Pain Level: Better Post Treatment Pain Location: Hip - Right OBJECTIVE MEASURES WITH LEVEL OF FUNCTION: Tightness in R HS TREATMENT: Therapeutic Exercise: 1: Scifit Seated Stepper x 5 minutes, seat # 13 (1:1 throughout. Discussed current HEP and pt provided update on condition.) 2: heel slides x 10 (irritated R groin and hip flexor region) 3: SLR 2x10 4: *discontinue 5: *Seated HS stretch 3x30 seconds RLE 6: Seated calf stretch with bed sheet 3x30 seconds RLE Skilled Intervention: Patient was educated in proper exercise technique and purpose for exercises. Reviewed and educated patient on additions/changes for home exercise program as above (*). Skilled judgment was used in selection of appropriate interventions. Provided written instruction for home exercise program to facilitate proper performance and compliance. Correct performance of therapeutic exercises was facilitated with verbal and visual cuing. Billing Therapeutic Exercise Treatment Minutes: 43 Skilled Treatment Time Minutes (timed and untimed codes): 43 Total Session Time (minutes): 43 Session Start Time : 1445 Session Stop Time : 1528 CHEVY Fernandez PT documented in this encounterThe [facility]01-[facility]25 NoteHNO ID: [id number] Author: NYLA, PEGGY, PT Service: ? Author Type: Physical Therapist Type: Progress Notes Filed: 03/28/2024 14:25 Note Text: Episode Visit Count: 2 Therapist That Will Accept/Oversee The Plan Of Care: Peggy Phillips Start of Care Date: 03/14/24 Onset Date: 01/08/24 Plan of Care Certification Date: 03/14/24 Next Certification Due Date: 05/12/24 Patient Identified by Name and Date of : Yes REHABILITATION AND SPORTS THERAPY PHYSICAL THERAPY TREATMENT NOTE ASSESSMENT: Azalea Mott tolerated the session with decreased activity tolerance due to increased hip flexor discomfort and pain with exercise, fatigue, and expected muscle soreness. She demonstrated difficulty with ability to fully extended R knee due to HS tightness. The patient will continue to benefit from ongoing skilled physical therapy to progress toward set goals. PLAN FOR NEXT VISIT: Asses response to HS and calf stretching and see if pain in R hip ahs decreased since altering exercises. SUBJECTIVE: Pt reports that her hips are hurting and in a lot more pain than the first time. Pt states that she did her HEP, made her nee hurt more . The first couple of days she did okay with her exercises. Feels that her hip hurts more each day, thinks maybe the ones laying on her side made it worse. B calves are hurting today as well, unsure why. Pt now has to have her help put her R sock and shoe on, was fine prior to starting therapy. Pain: Pain Pain Level: 2 (with sitting, increases to 8-9/10 with transitioning from sitting to standing, walking is okay.) Pain Location: Hip - Right Description: Sharp, Aching Frequency: Continuous Post Treatment Pain Post Treatment Pain Level: Better Post Treatment Pain Location: Hip - Right OBJECTIVE MEASURES WITH LEVEL OF FUNCTION: Tightness in R HS TREATMENT: Therapeutic Exercise: 1: Scifit Seated Stepper x 5 minutes, seat # 13 (1:1 throughout. Discussed current HEP and pt provided update on condition.) 2: heel slides x 10 (irritated R groin and hip flexor region) 3: SLR 2x10 4: *discontinue 5: *Seated HS stretch 3x30 seconds RLE 6: Seated calf stretch with bed sheet 3x30 seconds RLE Skilled Intervention: Patient was educated in proper exercise technique and purpose for exercises. Reviewed and educated patient on additions/changes for home exercise program as above (*). Skilled judgment was used in selection of appropriate interventions. Provided written instruction for home exercise program to facilitate proper performance and compliance. Correct performance of therapeutic exercises was facilitated with verbal and visual cuing. Billing Therapeutic Exercise Treatment Minutes: 43 Skilled Treatment Time Minutes (timed and untimed codes): 43 Total Session Time (minutes): 43 Session Start Time : 1445 Session Stop Time : 1528 Sravani Felix, [place] Peggylidia Phillips, [facility]01-09-2025 Telephone encounter Note* Telephone Encounter - Yen Browne LPN - 03/17/2024 9:56 AM EST Prescription Refill Information The patient has been identified by name and date of : Yes Caregiver verified no other encounters exist for this prescription request: Yes Caregiver confirmed with patient/requestor that no other refills are due, in the near future, with this provider at this time: Yes The last office visit in the department: 01/27/24 Does the patient have a future office visit with this provider/department: Yes Requested Prescriptions Pending Prescriptions Disp Refills atorvastatin (LIPITOR) 10 mg tablet 90 tablet 3 Sig: Take 1 tablet by mouth daily at bedtime. For cholesterol. Yen Browne LPN March 17, 2024 9:56 AM [facility]01-09-2025 Miscellaneous Notes* Telephone Encounter - Yen Browne LPN - 03/17/2024 9:56 AM EST Prescription Refill Information The patient has been identified by name and date of : Yes Caregiver verified no other encounters exist for this prescription request: Yes Caregiver confirmed with patient/requestor that no other refills are due, in the near future, with this provider at this time: Yes The last office visit in the department: 01/27/24 Does the patient have a future office visit with this provider/department: Yes Requested Prescriptions Pending Prescriptions Disp Refills atorvastatin (LIPITOR) 10 mg tablet 90 tablet 3 Sig: Take 1 tablet by mouth daily at bedtime. For cholesterol. Yen Browne LPN March 17, 2024 9:56 AM [facility] encounter Note * Telephone Encounter - Tristin Thayerher - 03/15/2024 10:49 AM EST Pt stated her prescription was sent to [facility]. She asked to have this switched to [facility]. Please advise. Thank you [facility]01-07-2025 Miscellaneous Notes* Telephone Encounter - Tristin Thayerher - 03/15/2024 10:49 AM EST Pt stated her prescription was sent to [facility]. She asked to have this switched to [facility]. Please advise. Thank you [facility] Telephone encounter Note * Telephone Encounter - Wanda Meadows MA - 03/14/2024 4:14 PM EST Aye, started under Dr. Fulton by accident. Dr. Linda patient. [facility]01-06-2025 Miscellaneous Notes* Telephone Encounter - Wanda Meadows MA - 03/14/2024 4:14 PM EST Aye, started under Dr. Fulton by accident. Dr. Linda patient. [facility]25 NoteHNO ID: [id number] Author: PEGGY PHILLIPS PT Service: ? Author Type: Physical Therapist Type: Progress Notes Filed: 03/14/2024 13:20 Note Text: Episode Visit Count: 1 Therapist That Will Accept/Oversee The Plan Of Care: Peggy Phillips Start of Care Date: 03/14/24 Onset Date: 01/08/24 Plan of Care Certification Date: 03/14/24 Next Certification Due Date: 05/12/24 Patient Identified by Name and Date of : Yes REHABILITATION AND SPORTS THERAPY PHYSICAL THERAPY EVALUATION PLAN OF CARE: Assessment: Azalea Mott presents with diagnosis of R hip OA that interferes with rising from a chair, sitting, standing, walking, stair negotiation, heavy exertion, physical activities, sleeping . The patient presents with impairments in ADL's, gait, joint mobility, overall function, range of motion, strength, and symptom management. Patient did not complete the PROMIS? (Patient Reported Outcome Measures Information System). Prognosis for therapy is Fair due to: clinical presentation, multiple co- morbidities, chronic nature of impairments, limited tolerance to activity . The patient will benefit from skilled therapy services to meet the goals established for this plan of care as noted below. Goals for Episode of Care: established 03/14/24 Harvey in home exercise program. Patient will decrease pain rating by 2 points to meet minimal clinical important difference for numeric pain rating scale. Patient will increase passive ROM of R hip to min to mod limitations to allow pt to to improve postural alignment and to improve performance of ADLs. Patient will demonstrate increase in RLE strength to 4+/5 during manual muscle testing in order to improve function for basic self-care tasks, home management tasks, leisure / recreation skills, and prior functional tasks. Perform rising from a chair, sitting, and standing with decreased report of symptoms/pain in 6-8 weeks. Perform sleeping without pain. Time Frame for Goals and Treatment : 05/12/24 Planned Interventions, Frequency, and Duration: Current Frequency: 1x/week Duration: 8 weeks Total Number of Visits Planned: 8 Planned Treatment Interventions: Therapeutic exercise (20261), Neuromuscular re-education (23458), Manual therapy (51580), Therapeutic activities (91160), Self-group home management (75582), Gait Training (77734), Patient/Family/Caregiver Education, Body Mechanics Training PLAN FOR NEXT VISIT: Assess tolerance for HEP, try SciFit. may try step ups or mini squats Patient demonstrates good understanding of plan of care and treatment. The above goals and plan of care were discussed and agreed upon by patient/family. SUBJECTIVE: R hip pain for years with worsening symptoms. In Nov she finally felt it had become painful enough and restricting enough that she needed to do something about it. Pt does get some radiating down the front of the thigh, especially at night. Patient is taking meloxicam and this seems to help, also does Ibuprofen at times when pain is especially bad. Pain is mainly in the groin area and thigh. Sitting for prolonged periods and then rising, also bending over to put on shoes and socks is really bothering her. ANything that involves getting up from the floor is very painful and she is very slow with now. Functional Limitations: rising from a chair, sitting, standing, walking, stair negotiation, heavy exertion, physical activities, sleeping Intake Information: Prescription present Pain: Pain Pain Level: 6 Pain Location: Hip - Right Description: Sharp, Aching, Sore Frequency: Continuous PROMIS Scales T-scores: mean of general population = 50. 5 points is clinically meaningfully difference Percentiles provide an indication of how the patient's score ranks in relation to the general population. Higher percentile rankings indicate better function/quality of life. 50th percentile is the average of the general population and indicates half of respondents had a worse score. OBJECTIVE MEASURES WITH LEVEL OF FUNCTION: LE PROM R LE PROM: Major limitations in hip flexion, IR and adduction. Moderate limitations in R hip ER and abduction L LE PROM : WNL to minimal limitations LE Strength R LE Strength: 4/5 grossly L LE Strength: 4+/5 grossly Special Tests - Hip and Spine Hip and Spine Special Tests: FADDIR Test, Scour Test FADDIR Test: Right Positive Scour Test: Right Positive Education: TREATMENT: PT Treatment Interventions: Therapeutic Exercise Evaluation Therapeutic Exercise: 1: *Hooklying BKFO 3x10, 1-2 sec holds at tolerated end range 2: *Heel slides in tolerated range 3x10, 1-2 sec holds 3: *SLR 3x10 4: *Clamshells 3x10 5: *SL hip abduction 3x10 Skilled Intervention: Patient was educated in proper exercise technique and purpose for exercises. Skilled judgment was used in selection of appropriate interventions. Provided written instruction for home exercise p (more content not included)... [facility]01-06-2025 History of Present illness Narrative* Peggy Phillips, PT - 03/14/2024 1:14 PM EST Episode Visit Count: 1 Therapist That Will Accept/Oversee The Plan Of Care: Peggy Phillips Start of Care Date: 03/14/24 Onset Date: 11/01/24 Plan of Care Certification Date: 03/14/24 Next Certification Due Date: 05/12/24 Patient Identified by Name and Date of : Yes REHABILITATION AND SPORTS THERAPY PHYSICAL THERAPY EVALUATION PLAN OF CARE: Assessment: Azalea Mott presents with diagnosis of R hip OA that interferes with rising from a chair, sitting, standing, walking, stair negotiation, heavy exertion, physical activities, sleeping . The patient presents with impairments in ADL's, gait, joint mobility, overall function, range of motion, strength, and symptom management. Patient did not complete the PROMIS (Patient Reported Outcome Measures Information System). Prognosis for therapy is Fair due to: clinical presentation, multiple co- morbidities, chronic nature of impairments, limited tolerance to activity . The patient will benefit from skilled therapy services to meet the goals established for this plan of care as noted below. Goals for Episode of Care: established 03/14/24 Harvey in home exercise program. Patient will decrease pain rating by 2 points to meet minimal clinical important difference for numeric pain rating scale. Patient will increase passive ROM of R hip to min to mod limitations to allow pt to to improve postural alignment and to improve performance of ADLs. Patient will demonstrate increase in RLE strength to 4+/5 during manual muscle testing in order to improve function for basic self-care tasks, home management tasks, leisure / recreation skills, and prior functional tasks. Perform rising from a chair, sitting, and standing with decreased report of symptoms/pain in 6-8 weeks. Perform sleeping without pain. Time Frame for Goals and Treatment : 05/12/24 Planned Interventions, Frequency, and Duration: Current Frequency: 1x/week Duration: 8 weeks Total Number of Visits Planned: 8 Planned Treatment Interventions: Therapeutic exercise (61789), Neuromuscular re- education (52313), Manual therapy (89520), Therapeutic activities (86882), Self- group home management (12638), Gait Training (95648), Patient/Family/Caregiver Education, Body Mechanics Training PLAN FOR NEXT VISIT: Assess tolerance for HEP, try SciFit. may try step ups or mini squats Patient demonstrates good understanding of plan of care and treatment. The above goals and plan of care were discussed and agreed upon by patient/family. SUBJECTIVE: R hip pain for years with worsening symptoms. In Nov she finally felt it had become painful enough and restricting enough that she needed to do something about it. Pt does get some radiating down thefront of the thigh, especially at night. Patient is taking meloxicam and this seems to help, also does Ibuprofen at times when pain is especially bad. Pain is mainly in the groin area and thigh. Sitting for prolonged periods and then rising, also bending over to put on shoes and socks is really bothering her. ANything that involves getting up from the floor is very painful and she is very slow with now. Functional Limitations: rising from a chair, sitting, standing, walking, stair negotiation, heavy exertion, physical activities, sleeping Intake Information: Prescription present Pain: Pain Pain Level: 6 Pain Location: Hip - Right Description: Sharp, Aching, Sore Frequency: Continuous PROMIS Scales T-scores: mean of general population = 50. 5 points is clinically meaningfully difference Percentiles provide an indication of how the patient's score ranks in relation to the general population. Higher percentile rankings indicate better function/quality of life. 50th percentile is the average of the general population and indicates half of respondents had a worse score. OBJECTIVE MEASURES WITH LEVEL OF FUNCTION: LE PROM R LE PROM: Major limitations in hip flexion, IR and adduction. Moderate limitations in R hip ER andabduction L LE PROM : WNL to minimal limitations LE Strength R LE Strength: 4/5 grossly L LE Strength: 4+/5 grossly Special Tests - Hip and Spine Hip and Spine Special Tests: FADDIR Test, Scour Test FADDIR Test: Right Positive Scour Test: Right Positive Education: TREATMENT: PT Treatment Interventions: Therapeutic Exercise Evaluation Therapeutic Exercise: 1: *Hooklying BKFO 3x10, 1-2 sec holds at tolerated end range 2: *Heel slides in tolerated range 3x10, 1-2 sec holds 3: *SLR 3x10 4: *Clamshells 3x10 5: *SL hip abduction 3x10 Skilled Intervention: Patient was educated in proper exercise technique and purpose for exercises. Skilled judgment was used in selection of appropriate interventions. Provided written instruction for home exercise program to facilitate proper performance and compliance. Correct performance of therapeutic exercises was facilitated with verbal, visual, and tactile cuing. Billing * Evaluation Low Complexity: 1 Unit Therapeutic Exercise Treatment Minutes: 12 Skilled Treatment Time Minutes (timed and untimed codes): 35 Total Session Time (minutes): 35 Session Start Time : 1135 Session Stop Time : 1210 Peggy Phillips PT * Peggy Phillips PT - 03/14/2024 12:07 PM EST Program_ID:[id number] Access Code: [email or web address] URL: [email or web address] Date: 03-14-2024 Prepared By: Peggy Phillips Program Notes Exercises - Bent Knee Fallouts with Alternating Legs - 1 x daily - 7 x weekly - 3 sets - 10 reps - Supine Heel Slide - 1 x daily - 7 x weekly - 3 sets - 10 reps - Supine Straight Leg Raises - 1 x daily - 7 x weekly - 3 sets - 10 reps - Clamshell - 1 x daily - 7 x weekly - 3 sets - 10 reps - Sidelying Hip Abduction - 1 x daily - 7 x weekly - 3 sets - 10 reps [facility]12[facility] History of Present illness Narrative* Zofia Weber Mammo Tech - 02/22/2024 11:10 AM EST Radiology Service Progress Note PATIENT NAME: Azalea Mott DATE OF SERVICE: February 22, 2024 TIME: 11:39 AM PATIENT IDENTITY VERIFICATION COMPLETED USING TWO (2) IDENTIFIERS: Name and Date of confirmedby patient verbally. FALL SCREENING: Has the patient had 2 falls in the last year or 1 fall with injury or currently using an Ambulatory Assistive Device (Walker, Cane, Wheelchair, Crutches, etc.)? No PATIENT GENDER DATA: Female. status: : No status: NO. PATIENT RELEVANT IMPLANT DATA REVIEWED: Not Applicable PATIENT PRESENTS WITH AN IMPLANTABLE OR ATTACHED CORPORATE DIRECTOR: No RADIOLOGY DEPARTMENT: Mammography PERIPHERAL IV DATA: Not applicable SIGNED BY: Troy Jimenes February 22, 2024 11:39 AM documented in this encounterThe [facility]12-[facility]24 NoteHNO ID: [id number] Author: ZOFIA WEBER Mammo Tech Service: ? Author Type: Laundry Housekeeper Type: Progress Notes Filed: 02/22/2024 11:39 Note Text: Radiology Service Progress Note PATIENT NAME: Azalea Mott DATE OF SERVICE: February 22, 2024 TIME: 11:39 AM PATIENT IDENTITY VERIFICATION COMPLETED USING TWO (2) IDENTIFIERS: Name and Date of confirmed by patient verbally. FALL SCREENING: Has the patient had 2 falls in the last year or 1 fall with injury or currently using an Ambulatory Assistive Device (Walker, Cane, Wheelchair, Crutches, etc.)? No PATIENT GENDER DATA: Female. status: : No status: NO. PATIENT RELEVANT IMPLANT DATA REVIEWED: Not Applicable PATIENT PRESENTS WITH AN IMPLANTABLE OR ATTACHED CORPORATE DIRECTOR: No RADIOLOGY DEPARTMENT: Mammography PERIPHERAL IV DATA: Not applicable SIGNED BY: Zofia Weber [employer] February 22, 2024 11:39 [facility]12-11-2024 NoteHNO ID: [id number] Author: BRYAN LINDA, DO Service: ? Author Type: Physician Type: Progress Notes Filed: 02/17/2024 14:13 Note Text: SERVICE DATE: February 17, 2024 PCP: Navdeep Ulloa MD Subjective Patient ID: Azalea is a 74 year old female. Chief Complaint: Patient presents with: OA right hip PAIN EVALUATION No data found in the last 1 encounters. HPI Patient presents today with right hip pain, getting progressively worse over the past year. He states that she has pain in the right hip and groin area. Pain is worse when she sits for a period of time then tries to stand. He denies any specific injury that she is aware of. She states that she does get aching pain that will radiate down toward the knee, particularly at night. Review of Systems ACTIVE PROBLEM LIST Hearing Loss in Left Ear Hyperlipidemia Ldl Goal <100 Hypertension, Essential Siobhan On Cpap Obesity, Class I, Bmi 30-34.9 Chronic Kidney Insufficiency, Stage 3 (Moderate) (Hcc) Impaired Fasting Glucose Venous Insufficiency PAST MEDICAL HISTORY Diagnosis Date Cholelithiasis with acute cholecystitis with biliary obstruction 09/2020 Chronic otitis media of both ears 1955 COVID-19 01/30/2021 home antigen test Diverticulosis of colon (without mention of hemorrhage) Diverticulosis Hearing loss in left ear 03/27/2009 Hereditary and idiopathic peripheral neuropathy Hyperlipidemia LDL goal <100 01/18/2016 Hypertension, essential 01/02/2020 Obesity, Class I, BMI 30-34.9 10/25/2020 SIOBHAN (obstructive sleep apnea) 01/27/2020 Personal history of colonic polyps 10/18/2004 hyperplastic Colon polyps Unspecified hemorrhoids without mention of complication Hemorrhoids PAST SURGICAL HISTORY Procedure Laterality Date ADENOIDECTOMY PRIMARY Adenoidectomy COLONOSCOPY FLX DX W/COLLJ SPEC WHEN PFRMD 10/18/2004 Colonoscopy-repeat in COLONOSCOPY FLX DX W/COLLJ SPEC WHEN PFRMD 02/13/2017 [id number] 10 years HYSTEROSCOPY BX W/WO DANDC 12/2011 endometrial polyp LAPAROSCOPIC CHOLECYSTECTOMY 09/24/2020 LAPS ABD PRTMANDOMENTUM DX W/WO SPEC BR/WA SPX Laparoscopy MASTOIDECTOMY,COMPLETE Left 1955 Mastoidectomy, left TONSILLECTOMY PRIMARY/SECONDARY Tonsillectomy FAMILY HISTORY Problem Relation Age of Onset Hypertension Mother Asthma Mother Diabetes Mother COPD Mother other (crohns [Other]) Mother Cancer Father NON HODGKINS LYMPHOMA Heart Father CHF Stroke Father age 82 Heart Sister CHF other (diabetes mellitus [Other]) Sister Hypertension Sister Pneumonia Sister Fibromyalgia Sister Kidney Disease Sister Pneumonia Brother other (Covid 19 sequelae) Brother No Known Problems Brother No Known Problems Brother Diabetes Maternal Grandmother Stroke Paternal Grandfather Tuberculosis Paternal Grandfather Social History Tobacco Use Smoking status: Never Smokeless tobacco: Never Substance Use Topics Alcohol use: No Drug use: No ALLERGIES Allergen Reactions [place] [Hydrocodone-* Other: See Comments Weird dreams. MEDICATIONS: lisinopril (ZESTRIL) 10 mg tablet Take 1 tablet by mouth once daily. hydroCHLOROthiazide 25 mg tablet Take 1 tablet by mouth once daily. CPAP CPAP Supplies, All Necessary equipment including tubing and full mask ICD G47.33 HAIR, SKIN AND NAILS, BIOTIN, ORAL Take 2 tablets by mouth once daily. atorvastatin (LIPITOR) 10 mg tablet Take 1 tablet by mouth daily at bedtime. For cholesterol. diphenhydrAMINE-Acetaminophen (TYLENOL PM EXTRA STRENGTH) 25-500 mg tab At bedtime for sleep ascorbic acid (VITAMIN C ORAL) Take 1 tablet by mouth once daily. elderberry fruit (ELDERBERRY ORAL) Take 2 Doses by mouth once daily. CPAP 30 day download for And please send chin strap Auto PAP @ 5-20 cm of water with humidification. Mask (per patient preference) optional chin strap (if indicated) , filters, tubing, humidifier and lifetime supplies. TURMERIC ORAL Take by mouth once daily. With curcumin Black Cohosh 40 mg tab Take 1 tablet by mouth. Take 1 tablet every other day ferrous sulfate 325 mg (65 mg iron) tablet Take 650 mg by mouth daily with breakfast. cholecalciferol (VITAMIN D3) 50 mcg (2,000 unit) tablet Take by mouth. Fiber Cap Take 3 capsules by mouth once daily. multivitamins(DAILY MULTIVITAMIN TAB) Take one(1) tablet daily. meloxicam (MOBIC) 15 mg tablet Take 1 tablet by mouth once daily. Allergies, medications, past surgical history, family history and past medical history were reviewed per this encounter. Objective Ortho Exam 74-year-old female is pleasant cooperative with exam in no acute distress. Evaluation of the right hip shows restricted range of motion with flexion abduction external rotation. There is also restriction and discomfort with internal rotation. X-ray reviewed with patient which shows moderate to severe arthritis in the right hip. Assessment/Plan ASSESSMENT Diagnosis (M (more content not included)...[facility]12-11-2024 History of Present illness Narrative* Bryan Linda V, - 02/17/2024 2:11 PM EST SERVICE DATE: February 17, 2024 PCP: Navdeep Ulloa MD Subjective Patient ID: Azalea is a 74 year old female. Chief Complaint: Patient presents with: OA right hip PAIN EVALUATION No data found in the last 1 encounters. HPI Patient presents today with right hip pain, getting progressively worse over the past year. He states that she has pain in the right hip and groin area. Pain is worse when she sits for a period of time then tries to stand. He denies any specific injury that she is aware of. She states that she doesget aching pain that will radiate down toward the knee, particularly at night. Review of Systems ACTIVE PROBLEM LIST Hearing Loss in Left Ear Hyperlipidemia Ldl Goal <100 Hypertension, Essential Siobhan On Cpap Obesity, Class I, Bmi 30-34.9 Chronic Kidney Insufficiency, Stage 3 (Moderate) (Hcc) Impaired Fasting Glucose Venous Insufficiency PAST MEDICAL HISTORY Diagnosis Date Cholelithiasis with acute cholecystitis with biliary obstruction 09/2020 Chronic otitis media of both ears 1955 COVID-19 01/30/2021 home antigen test Diverticulosis of colon (without mention of hemorrhage) Diverticulosis Hearing loss in left ear 03/27/2009 Hereditary and idiopathic peripheral neuropathy Hyperlipidemia LDL goal <100 01/18/2016 Hypertension, essential 01/02/2020 Obesity, Class I, BMI 30-34.9 10/25/2020 SIOBHAN (obstructive sleep apnea) 01/27/2020 Personal history of colonic polyps 10/18/2004 hyperplastic Colon polyps Unspecified hemorrhoids without mention of complication Hemorrhoids PAST SURGICAL HISTORY Procedure Laterality Date ADENOIDECTOMY PRIMARY <AGE 13 Adenoidectomy COLONOSCOPY FLX DX W/COLLJ SPEC WHEN PFRMD 10/18/2004 Colonoscopy-repeat in COLONOSCOPY FLX DX W/COLLJ SPEC WHEN PFRMD 02/13/2017 [id number] 10 years HYSTEROSCOPY BX W/WO D&C 12/2011 endometrial polyp LAPAROSCOPIC CHOLECYSTECTOMY 09/24/2020 LAPS ABD PRTM&OMENTUM DX W/WO SPEC BR/WA SPX Laparoscopy MASTOIDECTOMY,COMPLETE Left 1955 Mastoidectomy, left TONSILLECTOMY PRIMARY/SECONDARY <AGE 13 Tonsillectomy FAMILY HISTORY Problem Relation Age of Onset Hypertension Mother Asthma Mother Diabetes Mother COPD Mother other (crohns [Other]) Mother Cancer Father NON HODGKINS LYMPHOMA Heart Father CHF Stroke Father age 82 Heart Sister CHF other (diabetes mellitus [Other]) Sister Hypertension Sister Pneumonia Sister Fibromyalgia Sister Kidney Disease Sister Pneumonia Brother other (Covid 19 sequelae) Brother No Known Problems Brother No Known Problems Brother Diabetes Maternal Grandmother Stroke Paternal Grandfather Tuberculosis Paternal Grandfather Social History Tobacco Use Smoking status: Never Smokeless tobacco: Never Substance Use Topics Alcohol use: No Drug use: No ALLERGIES Allergen Reactions [place] [Hydrocodone-* Other: See Comments Weird dreams. MEDICATIONS: lisinopril (ZESTRIL) 10 mg tablet Take 1 tablet by mouth once daily. hydroCHLOROthiazide 25 mg tablet Take 1 tablet by mouth once daily. CPAP CPAP Supplies, All Necessary equipment including tubing and full mask ICD G47.33 HAIR, SKIN AND NAILS, BIOTIN, ORAL Take 2 tablets by mouth once daily. atorvastatin (LIPITOR) 10 mg tablet Take 1 tablet by mouth daily at bedtime. For cholesterol. diphenhydrAMINE-Acetaminophen (TYLENOL PM EXTRA STRENGTH) 25-500 mg tab At bedtime for sleep ascorbic acid (VITAMIN C ORAL) Take 1 tablet by mouth once daily. elderberry fruit (ELDERBERRY ORAL) Take 2 Doses by mouth once daily. CPAP 30 day download for And please send chin strap Auto PAP @ 5-20 cm of water with humidification. Mask (per patient preference) optional chin strap (if indicated) , filters, tubing, humidifier andlifetime supplies. TURMERIC ORAL Take by mouth once daily. With curcumin Black Cohosh 40 mg tab Take 1 tablet by mouth. Take 1 tablet every other day ferrous sulfate 325 mg (65 mg iron) tablet Take 650 mg by mouth daily with breakfast. cholecalciferol (VITAMIN D3) 50 mcg (2,000 unit) tablet Take by mouth. Fiber Cap Take 3 capsules by mouth once daily. multivitamins(DAILY MULTIVITAMIN TAB) Take one(1) tablet daily. meloxicam (MOBIC) 15 mg tablet Take 1 tablet by mouth once daily. Allergies, medications, past surgical history, family history and past medical history were reviewed per this encounter. Objective Ortho Exam 74-year-old female is pleasant cooperative with exam in no acute distress. Evaluation of the right hip shows restricted range of motion with flexion abduction external rotation. There is also restriction and discomfort with internal rotation. X-ray reviewed with patient which shows moderate to severe arthritis in the right hip. Assessment/Plan ASSESSMENT Diagnosis (M16.11) Primary osteoarthritis of right hip Plan: CONSULT TO ORTHOPAEDICS, CONSULT TO PHYSICAL THERAPY Office Visit on 02/17/24 CONSULT TO ORTHOPAEDICS CONSULT TO PHYSICAL THERAPY PLAN We discussed options for treatment today. Ultimately referral for surgical consultation is recommended but for now patient would like to try conservative measures. Will try meloxicam on a as needed basis for symptom relief as well as physical therapy for range ofmotion and strengthening. FOLLOW-UP: No follow-ups on file. SIGNATURE: Bryan Linda DO PATIENT NAME: Azalea Mott DATE: February 17, 2024 TIME: 2:11 PM * Buffy Couch MA - 02/17/2024 1:37 PM EST Patient presents with: OA right hip AMB ROOMING INTAKE FLOWSHEET DATA Patient denies any pain today. States it is getting harder to getting out of the car and a chair. Going up and down steps one step at time. Referred by Mary Glover. X-rays done on 01/27/24. documented [facility]The [facility]24 NoteHNO ID: [id number] Author: BUFFY COUCH MA Service: ? Author Type: Inspector Type Type: Progress Notes Filed: 02/17/2024 14:13 Note Text: Patient presents with: OA right hip AMB ROOMING INTAKE FLOWSHEET DATA Patient denies any pain today. States it is getting harder to getting out of the car and a chair. Going up and down steps one step at time. Referred by Mary Glover. X-rays done on 01/27/24.[facility]11-20-2024 History of Present illness Narrative* Beau Alexandre RT(Magdy) - 01/27/2024 11:40 AM EST Radiology Service Progress Note PATIENT NAME: Azalea Mott DATE OF SERVICE: January 27, 2024 TIME: 11:35 AM PATIENT IDENTITY VERIFICATION COMPLETED USING TWO (2) IDENTIFIERS: Name and Date of confirmedby patient verbally. FALL SCREENING: Has the patient had 2 falls in the last year or 1 fall with injury or currently using an Ambulatory Assistive Device (Walker, Cane, Wheelchair, Crutches, etc.)? No PATIENT GENDER DATA: Female. status: : No status: NO. PATIENT RELEVANT IMPLANT DATA REVIEWED: Yes PATIENT PRESENTS WITH AN IMPLANTABLE OR ATTACHED CORPORATE DIRECTOR: No RADIOLOGY DEPARTMENT: General X-ray: Exam(s) Completed: Pelvis X-Ray: Pelvis with Hip Right PERIPHERAL IV DATA: Not applicable SIGNED BY: RT Anselmo(Magdy) January 27, 2024 11:35 AM documented in this encounterThe [facility] Hospital11-20-2024 NoteHNO ID: [id number] Author: BETTIE, BEAU, RT(R) Service: ? Author Type: Laundry Housekeeper Type: Progress Notes Filed: 01/27/2024 11:48 Note Text: Radiology Service Progress Note PATIENT NAME: Azalea Mott DATE OF SERVICE: January 27, 2024 TIME: 11:35 AM PATIENT IDENTITY VERIFICATION COMPLETED USING TWO (2) IDENTIFIERS: Name and Date of confirmed by patient verbally. FALL SCREENING: Has the patient had 2 falls in the last year or 1 fall with injury or currently using an Ambulatory Assistive Device (Walker, Cane, Wheelchair, Crutches, etc.)? No PATIENT GENDER DATA: Female. status: : No status: NO. PATIENT RELEVANT IMPLANT DATA REVIEWED: Yes PATIENT PRESENTS WITH AN IMPLANTABLE OR ATTACHED CORPORATE DIRECTOR: No RADIOLOGY DEPARTMENT: General X-ray: Exam(s) Completed: Pelvis X-Ray: Pelvis with Hip Right PERIPHERAL IV DATA: Not applicable SIGNED BY: RT Anselmo(R) January 27, 2024 11:35 [facility]11-20-2024 Instructions* Patient Instructions* Mary Glover, POULTRY HATCHERY MANAGER.PROTEIN PURIFICATION SCIENTIST - 01/27/2024 11:13 AM EST Screening schedule The following prevention plan is recommended: Mammogram Screening due on 02/21/2024 WHAT YOU CAN DO TO PREVENT FALLS Many falls can be prevented. By making some changes, you can lower your chances of falling. Four things YOU can do to prevent falls for you* and your caregiver 1. Begin a regular exercise program Exercise is one of the most important ways to lower your chances of falling. It makes you stronger and helps you feel better. Exercises that improve balance and coordination (like [place]) are the most helpful. Lack of exercise leads to weakness and increases your chances of falling. Ask your doctor or health care provider about the best type of exercise program for you. 2. Have your health care provider review your medicines Have your doctor or pharmacist review all the medicines you take, even [id number] medicines. As you get older, the way medicines work in your body can change. Some medicines, or combinations of medicines, can make you sleepy or dizzy andcan cause you to fall. 3. Have your vision checked Have your eyes checked by an eye doctor at least once a year. You may be wearing the wrong glasses or have a condition like glaucoma or cataracts that limits your vision. Poor vision can increase your chances of falling. 4. Make your home safer About half of all falls happen at home. To make your home safer: Remove things you can trip over (like papers, books, clothes, and shoes) from stairs and places where you walk. Remove small throw rugs or use double-sided tape to keep the rugs from slipping. Keep items you use often in cabinets you can reach easily without using a step stool. Have grab bars put in next to your toilet and in the tub or shower. Use non-slip mats in the bathtub and on shower floors. Improve the lighting in your home. As you get older, you need brighter lights to see well. Hang light-weight curtains or shades to reduce glare. Have handrails and lights put in on all staircases. Wear shoes both inside and outside the house. Avoid going barefoot or wearing slippers. For more information, contact: Centers for Disease Control and Prevention www.cdc.gov/injury * This information may not apply if you have certain medical conditions. documented in this encounterThe [facility]11-20-2024 NoteHNO ID: [id number] Author: MARY GLOVER APRN.KYAW Service: ? Author Type: Nurse Practitioner Type: Progress Notes Filed: 01/27/2024 13:16 Note Text: Azalea Mott is a 74 year old female here for a Medicare wellness visit. Medicare Health Risk Assessment General Health Very good Exercise: Minutes/Day 0 min Exercise: Days/Week 0 days Alcohol: Daily Use Never Alcohol: Drinks/Day Patient does not drink Alcohol: 6 or more drinks Never Feel off balance No Concerns: Teeth/Dentures No Concerns: Sexual function No Troubled by feelings None of the above Frequency: Eating healthy diet More than half the days ADLs requiring help None of the above Safety precautions in home/vehicle Yes Smoke, vape, chews tobacco No Difficulty hearing No Difficulty seeing No Current Providers Specialists: I have reviewed specialist-related care of the patient in the medical record. Current care team: Patient Care Team: Navdeep Ulloa MD as PCP - General (Internal Medicine) Outside specialists seen: Dr. Mcdonald-ophthalmology Medical/Family history review Reviewed and updated problem list, medical/surgical/family/social history, medications, and allergies. Opioid use review Opioid Medications (last 90 days) No data to display Anxiety/Depression screening PHQ-2 Score: 0 ELVIRA-2 Score: 0 Recommendation: no further intervention at this time Cognitive screening Mini Cog Score: 5 Cognitive screening reviewed and No further action needed (score 3-5). Functional Observation Was the patient's Timed Up AND Go test unsteady or >= 12 seconds? No Advance Care Planning Patient was not able to provide a surrogate decision maker or written advance directives Measurements BP 124/78 Pulse 60 Resp 14 Ht 170.2 cm (5' 7) Wt 98.8 kg (217 lb 13 oz) BMI 34.11 kg/m? Vision Screening: Follows with optometry/ophthalmology Assessment/Plan Medicare annual wellness visit, subsequent (Z00.00) - Counseled on healthy diet and regular exercise - Fall avoidance information provided - Personalized prevention plan provided - Discussed need for and benefit of weight loss. BMI 34.11 kg/(m2) Additional Concerns The following concerns were also discussed with the patient: She reports right hip pain for months, gradually worsening. Only occurring when she first stands up from sitting, once she starts walking the pain resolves Injury: denies a recent or remote history of hip injury or trauma. Location: groin and described as sharp. Associated symptoms: no back pain, no radiation of hip pain, and no numbness or tingling noted of the lower extremity. Grating, clicking, feeling like leg is giving out: feels like it may give out when she first stands up unless she moves very slowly Aggravated by nothing Treatment: nothing PMH: Non-contributory SIOBHAN: Is compliant with CPAP. No changes in settings. Denies issues with mask. Denies snoring, un-refreshed sleep, insomnia, excessive daytime drowsiness. HTN-Medication changes:No Taking all medications as prescribed: Yes Side effects: No Home BP's: No Denies: headache, chest pain, palpitations, dyspnea, and peripheral edema. Last 3 Encounter BP Readings: Date: BP: 01/27/2024 124/78 09/02/2023 102/70 08/25/2023 118/68 BP 124/78 Pulse 60 Resp 14 Ht 170.2 cm (5' 7) Wt 98.8 kg (217 lb 13 oz) BMI 34.11 kg/m? Physical Exam Vitals reviewed. Constitutional: Appearance: Normal appearance. Cardiovascular: Rate and Rhythm: Regular rhythm. Bradycardia present. Heart sounds: Normal heart sounds. No murmur heard. Pulmonary: Effort: Pulmonary effort is normal. Breath sounds: Normal breath sounds. No wheezing, rhonchi or rales. Musculoskeletal: Right hip: Tenderness (anterior) present. No deformity or crepitus. Decreased range of motion (painful with external and internal rotation). Normal strength. Left hip: No deformity, tenderness or crepitus. Decreased range of motion (painless). Normal strength. Skin: General: Skin is warm and dry. Neurological: Mental Status: She is alert. Psychiatric: Mood and Affect: Mood normal. ASSESSMENT/PLAN: 1. Medicare annual wellness visit, subsequent - ICD9: V70.0, ICD10: Z00.00 (primary diagnosis) See medicare wellness plan 2. Right hip pain - ICD9: 719.45, ICD10: M25.551 Suspect osteoarthritis. Discussed symptom management, given patient education handout with this information from orthoinfo.org - XR HIP GENERAL 3V PELV/AP/LAT RIGHT 3. Hypertension, essential - ICD9: 401.9, ICD10: I10 - Controlled - Continue current medications - Recommend home blood pressure monitoring, to bring results to next visit - Encouraged sodium restriction, DASH or Mediterranean diet - COMPLETE BLOOD COUNT 4. Impaired fasting glucose - ICD9: 790.21, ICD10: R73.01 Recheck in 6 months - HEMOGLOBIN A1C 5. Hyperlipidemia LDL goal <100 - ICD9: 272.4, ICD10: E78.5 - Worsening c (more content not included)...[facility]11-20-2024 History of Present illness Narrative* Mary Glover, POULTRY HATCHERY MANAGER.PROTEIN PURIFICATION SCIENTIST - 01/27/2024 11:11 AM EST Images from the original note were not included. Azalea Mott is a 74 year old female here for a Medicare wellness visit. Medicare Health Risk Assessment General Health Very good Exercise: Minutes/Day 0 min Exercise: Days/Week 0 days Alcohol: Daily Use Never Alcohol: Drinks/Day Patient does not drink Alcohol: 6 or more drinks Never Feel off balance No Concerns: Teeth/Dentures No Concerns: Sexual function No Troubled by feelings None of the above Frequency: Eating healthy diet More than half the days ADLs requiring help None of the above Safety precautions in home/vehicle Yes Smoke, vape, chews tobacco No Difficulty hearing No Difficulty seeing No Current Providers Specialists: I have reviewed specialist-related care of the patient in the medical record. Current care team: Patient Care Team: Navdeep Ulloa MD as PCP - General (Internal Medicine) Outside specialists seen: Dr. Mcdonald-ophthalmology Medical/Family history review Reviewed and updated problem list, medical/surgical/family/social history, medications, and allergies. Opioid use review Opioid Medications (last 90 days) No data to display Anxiety/Depression screening PHQ-2 Score: 0 ELVIRA-2 Score: 0 Recommendation: no further intervention at this time Cognitive screening Mini Cog Score: 5 Cognitive screening reviewed and No further action needed (score 3-5). Functional Observation Was the patient's Timed Up & Go test unsteady or >= 12 seconds? No Advance Care Planning Patient was not able to provide a surrogate decision maker or written advance directives Measurements BP 124/78 Pulse 60 Resp 14 Ht 170.2 cm (5' 7) Wt 98.8 kg (217 lb 13 oz) BMI 34.11 kg/m Vision Screening: Follows with optometry/ophthalmology Assessment/Plan Medicare annual wellness visit, subsequent (Z00.00) - Counseled on healthy diet and regular exercise - Fall avoidance information provided - Personalized prevention plan provided - Discussed need for and benefit of weight loss. BMI 34.11 kg/(m^2) Additional Concerns The following concerns were also discussed with the patient: She reports right hip pain for months, gradually worsening. Only occurring when she first stands upfrom sitting, once she starts walking the pain resolves Injury: denies a recent or remote history of hip injury or trauma. Location: groin and described as sharp. Associated symptoms: no back pain, no radiation of hip pain, and no numbness or tingling noted of the lower extremity. Grating, clicking, feeling like leg is giving out: feels like it may give out when she first stands up unless she moves very slowly Aggravated by nothing Treatment: nothing PMH: Non-contributory SIOBHAN: Is compliant with CPAP. No changes in settings. Denies issues with mask. Denies snoring, un-refreshed sleep, insomnia, excessive daytime drowsiness. HTN-Medication changes:No Taking all medications as prescribed: Yes Side effects: No Home BP's: No Denies: headache, chest pain, palpitations, dyspnea, and peripheral edema. Last 3 Encounter BP Readings: Date: BP: 01/27/2024 124/78 09/02/2023 102/70 08/25/2023 118/68 BP 124/78 Pulse 60 Resp 14 Ht 170.2 cm (5' 7) Wt 98.8 kg (217 lb 13 oz) BMI 34.11 kg/m Physical Exam Vitals reviewed. Constitutional: Appearance: Normal appearance. Cardiovascular: Rate and Rhythm: Regular rhythm. Bradycardia present. Heart sounds: Normal heart sounds. No murmur heard. Pulmonary: Effort: Pulmonary effort is normal. Breath sounds: Normal breath sounds. No wheezing, rhonchi or rales. Musculoskeletal: Right hip: Tenderness (anterior) present. No deformity or crepitus. Decreased range of motion (painful with external and internal rotation). Normal strength. Left hip: No deformity, tenderness or crepitus. Decreased range of motion (painless). Normal strength. Skin: General: Skin is warm and dry. Neurological: Mental Status: She is alert. Psychiatric: Mood and Affect: Mood normal. ASSESSMENT/PLAN: 1. Medicare annual wellness visit, subsequent - ICD9: V70.0, ICD10: Z00.00 (primary diagnosis) See medicare wellness plan 2. Right hip pain - ICD9: 719.45, ICD10: M25.551 Suspect osteoarthritis. Discussed symptom management, given patient education handout with this information from orthoinfo.org - XR HIP GENERAL 3V PELV/AP/LAT RIGHT 3. Hypertension, essential - ICD9: 401.9, ICD10: I10 - Controlled - Continue current medications - Recommend home blood pressure monitoring, to bring results to next visit - Encouraged sodium restriction, DASH or Mediterranean diet - COMPLETE BLOOD COUNT 4. Impaired fasting glucose - ICD9: 790.21, ICD10: R73.01 Recheck in 6 months - HEMOGLOBIN A1C 5. Hyperlipidemia LDL goal <100 - ICD9: 272.4, ICD10: E78.5 - Worsening control, patient declined dose increase of Lipitor - Continue current medications - Counseled on healthy diet and regular exercise - Discussed need for and benefit of weight loss. BMI 34.11 kg/(m^2) 6. Chronic kidney insufficiency, stage 3 (moderate) (HCC) - ICD9: 585.3, ICD10: N18.30 - eGFR: 58 Stable - Counseled on avoiding NSAIDs, adequate hydration - Counseled on low sodium diet 7. SIOBHAN on CPAP - ICD9: 327.23, ICD10: G47.33 Compliant with and benefiting from CPAP 8. Encounter for screening mammogram for breast cancer - ICD9: V76.12, ICD10: Z12.31 - JOEL SCREENING W DIALLO 9. Encounter for screening examination for other mental health and behavioral disorders - ICD9: V79.8, ICD10: Z13.39 - ANXIETY SCREENING 10. Screening for depression - ICD9: V79.0, ICD10: Z13.31 - DEPRESSION SCREENING Mary Glover APRN.PROTEIN PURIFICATION SCIENTIST documented in this encounterThe [facility]11-[facility] Instructions* Patient Instructions* Dilcia Rojas RN - 01/12/2024 9:29 AM EST CARE OF BIOPSY SITE 1. Wash your hands with soap and water. 2. Cleanse the biopsy site with antibacterial soap. 3. Thoroughly dry the area and apply a small amount of Vaseline or Aquaphor to keep area greasy at all times (this prevents a scab from forming). 4. PLEASE DO NOT use polysporin, Bacitracin, triple antibiotic or similar ointments. 5. Place a small dressing or band-aid over the wound until the wound is healed. (Studies show that wounds heal better when covered with ointment and a dressing). If you have any questions or concerns, please contact the office at [phone] or [phone]. For emergencies after 4:30 please call [phone] and ask for the surgical dermatology fellow automation developer. documented in this encounterThe [facility]11-05-2024 NoteHNO ID: [id number] Author: BETHANY HODGES MD Service: ? Author Type: Physician Type: Progress Notes Filed: 01/12/2024 14:59 Note Text: NEW PATIENT / EST PATIENT Last visit: New Pt Chief Complaint: Irritated growth on back History of Present Ilness: Azalea Mott is a 73 year old female presents today for a evaluation and possible bx if needed Location: mid back Duration: x 2 weeks Symptoms: irritated, itchy Inciting factors: bra strap rubs over the area Current treatment: none Previous treatment: none No other concerns today /planning or : n/a Pertinent Past Medical History: -Personal history of skin cancer: No -Personal history of skin disease: No -History of organ transplant/immunosuppressed: No -History of atypical moles: No -Pacemaker or defibrillator: No Specialty Problems None Pertinent Family medical history: History of melanoma: No Review of Systems: Constitutional: Denies fever, chills, night sweats, unintentional weight loss. Skin per HPI. No other new/concerning skin growth. Physical Exam: General: well appearing, of stated age, in no acute distress Neurology: alert and oriented times three Psychiatry: normal affect and speech Schroeder skin type: II A limited skin exam was done of the back. Skin exam normal with the exception of: - A 3 mm pink papule with excoriation on the mid back, biopsy - Numerous scattered skin-colored and brown, waxy, stuck-on papules and plaques Assessment and Plan: 1. Neoplasm of uncertain behavior of skin, Mid back R/O NMSC vs ISK- Recommend Shave bx Pt agreeable Shave biopsy of lesion to establish and confirm diagnosis: Photo taken: Yes Risks, benefits, alternatives and personnel required for shave biopsy reviewed with patient. Patient and provider agree as to site(s) to be biopsied. Patient verbalizes understanding and wishes to proceed. Site(s) prepped with alcohol and anesthetized with 1% lidocaine with epinephrine. Shave biopsy of lesion(s) performed to the level of the dermis/epidermis The following was sent for histologic evaluation: LESION #1 R/O: NMSC LOC OF LESION: Mid back SIZE: 0.3CM EBL: none 50% ALCL and bandaging applied. Written and verbal wound care instructions provided to patient, understanding verbalized. [facility]. Seborrheic Keratoses Reassurance on benign nature of lesions and recommend routine self-examinations. Recommend observation and encouraged to notify office of changes. Sunscreen (SPF 30 or higher). Sun protective clothing can be used in lieu of sunscreen but must be worn the entire time you are exposed to the sun's rays The ABCDEs of melanoma were reviewed with the patient and the importance of routine self-examination of moles was emphasized. Should any areas change in size, shape or color, bleed or become tender, the patient will contact the office for evaluation sooner than their interval appointment. Patient verbalizes understanding and agrees with treatment plan. Follow up: as needed or sooner if something concerning arises. The documentation for this note was completed by Dilcia Rojas RN acting as scribe for Bethany Hodges MD. January 12, 2024 8:59 AM. JACOB Sheehan MD, MS PGY2 Dermatology Resident I have seen and examined the patient. I have discussed the case and the management of this patient's care with the Resident. I also have reviewed and agree with the assessment and plan as stated above and agree with all of its relevant components. I was present for and supervised the encounter/procedures as documented above by the Resident. I was physically present during the critical portion(s) of this encounter/procedure. I agree with the clinical/operative note independently gathered by the clinical manager product support and Resident and the remaining scribed note accurately describes my personal service to the patient. Bethany Hodges, [facility]11-05-2024 History of Present illness Narrative* Bethany Hodges MD - 01/12/2024 8:58 AM EST NEW PATIENT / EST PATIENT Last visit: New Pt Chief Complaint: Irritated growth on back History of Present Ilness: Azalea Mott is a 73 year old female presents today for a evaluation and possible bx if needed Location: mid back Duration: x 2 weeks Symptoms: irritated, itchy Inciting factors: bra strap rubs over the area Current treatment: none Previous treatment: none No other concerns today /planning or : n/a Pertinent Past Medical History: -Personal history of skin cancer: No -Personal history of skin disease: No -History of organ transplant/immunosuppressed: No -History of atypical moles: No -Pacemaker or defibrillator: No Specialty Problems None Pertinent Family medical history: History of melanoma: No Review of Systems: Constitutional: Denies fever, chills, night sweats, unintentional weight loss. Skin per HPI. No other new/concerning skin growth. Physical Exam: General: well appearing, of stated age, in no acute distress Neurology: alert and oriented times three Psychiatry: normal affect and speech Schroeder skin type: II A limited skin exam was done of the back. Skin exam normal with the exception of: - A 3 mm pink papule with excoriation on the mid back, biopsy - Numerous scattered skin-colored and brown, waxy, stuck-on papules and plaques Assessment and Plan: 1. Neoplasm of uncertain behavior of skin, Mid back R/O NMSC vs ISK- Recommend Shave bx Pt agreeable Shave biopsy of lesion to establish and confirm diagnosis: Photo taken: Yes Risks, benefits, alternatives and personnel required for shave biopsy reviewed with patient. Patient and provider agree as to site(s) to be biopsied. Patient verbalizes understanding and wishes to proceed. Site(s) prepped with alcohol and anesthetized with 1% lidocaine with epinephrine. Shave biopsy of lesion(s) performed to the level of the dermis/epidermis The following was sent for histologic evaluation: LESION #1 R/O: NMSC LOC OF LESION: Mid back SIZE: 0.3CM EBL: none 50% ALCL and bandaging applied. Written and verbal wound care instructions provided to patient, understanding verbalized. OK to release to [facility] 2. Seborrheic Keratoses Reassurance on benign nature of lesions and recommend routine self-examinations. Recommend observation and encouraged to notify office of changes. Sunscreen (SPF 30 or higher). Sun protective clothing can be used in lieu of sunscreen but must be worn the entire time you are exposed to the sun's rays The ABCDEs of melanoma were reviewed with the patient and the importance of routine self-examination of moles was emphasized. Should any areas change in size, shape or color, bleed or become tender, the patient will contact the office for evaluation sooner than their interval appointment. Patient verbalizes understanding and agrees with treatment plan. Follow up: as needed or sooner if something concerning arises. The documentation for this note was completed by Dilcia Rojas RN acting as scribe for Bethany Hodges MD. January 12, 2024 8:59 AM. Dilcia Rojas, JACOB Win MD, MS PGY2 Dermatology Resident I have seen and examined the patient. I have discussed the case and the management of this patient's care with the Resident. I also have reviewed and agree with the assessment and plan as stated above and agree with all of its relevant components. I was present for and supervised the encounter/procedures as documented above by the Resident. I was physically present during the critical portion(s) of this encounter/procedure. I agree with the clinical/operative note independently gathered by the clinical manager product support and Resident and theremaining scribed note accurately describes my personal service to the patient. Bethany Hodges MD [facility] Tele[facility] encounter Note * Telephone Encounter - Neeta Miles LPN - 09/02/2023 3:32 PM EDT Order faxed to [facility]. Neeta Miles LPN [facility]06-26-2024 Miscellaneous Notes* Telephone Encounter - Neeta Miles LPN - 09/02/2023 3:32 PM EDT Order faxed to [facility]. Neeta Miles LPN * Telephone Encounter - Yen Browne LPN - 09/02/2023 11:51 AM EDT Patient calling, needs [facility]. Please advise. documented [facility]The [facility] Telephone encounter Note * Telephone Encounter - Yen Browne LPN - 09/02/2023 11:51 AM EDT Patient calling, needs order for [facility]AP supplies [facility] to [facility]. Please advise. [facility]06-26-2024 NoteHNO ID: [id number] Author: NAVDEEP ULLOA MD Service: ? Author Type: Physician Type: Progress Notes Filed: 09/03/2023 13:07 Note Text: This note was created using [employer]. Subjective Azalea Mott is a 73 year old female. Her hypertension was stable, and edema was better. Review of Systems Constitutional: Negative. Respiratory: Negative. Cardiovascular: Negative. Neurological: Negative. ACTIVE PROBLEM LIST Hearing Loss in Left Ear Hyperlipidemia Ldl Goal <100 Hypertension, Essential Siobhan On Cpap Obesity, Class I, Bmi 30-34.9 Chronic Kidney Insufficiency, Stage 3 (Moderate) (Hcc) Impaired Fasting Glucose Current Outpatient Medications Medication Sig HAIR, SKIN AND NAILS, BIOTIN, ORAL Take 2 tablets by mouth once daily. lisinopril (ZESTRIL) 20 mg tablet Take 0.5 tablets by mouth once daily. hydroCHLOROthiazide 12.5 mg capsule Take 2 capsules by mouth once daily. albuterol HFA (PROVENTIL HFA, VENTOLIN HFA) 90 mcg/actuation inhaler Inhale 2 Puffs as instructed every 6 hours as needed for wheezing/shortness of breath. atorvastatin (LIPITOR) 10 mg tablet Take 1 tablet by mouth daily at bedtime. For cholesterol. diphenhydrAMINE-Acetaminophen (TYLENOL PM EXTRA STRENGTH) 25-500 mg tab At bedtime for sleep CPAP CPAP Supplies, All Necessary equipment including tubing and full mask ICD G47.33 ascorbic acid (VITAMIN C ORAL) Take 1 tablet by mouth once daily. elderberry fruit (ELDERBERRY ORAL) Take 2 Doses by mouth once daily. CPAP 30 day download for And please send chin strap Auto PAP @ 5-20 cm of water with humidification. Mask (per patient preference) optional chin strap (if indicated) , filters, tubing, humidifier and lifetime supplies. NEREIDAIC ORAL Take by mouth once daily. With curcumin Black Cohosh 40 mg tab Take 1 tablet by mouth. Take 1 tablet every other day ferrous sulfate 325 mg (65 mg iron) tablet Take 650 mg by mouth daily with breakfast. cholecalciferol (VITAMIN D3) 50 mcg (2,000 unit) tablet Take by mouth. Fiber Cap Take 3 capsules by mouth once daily. multivitamins(DAILY MULTIVITAMIN TAB) Take one(1) tablet daily. No current facility-administered medications for this visit. Objective BP 102/70 (BP Site: Left Arm, BP Position: Sitting, BP Cuff Size: Large Adult) Pulse 80 Temp 36.8 ?C (98.3 ?F) (Temporal) Wt 96.2 kg (212 lb) BMI 32.71 kg/m? Physical Exam Constitutional: Appearance: Normal appearance. Musculoskeletal: Right lower leg: No edema. Left lower leg: No edema. Assessment and Plan 1. Hypertension, essential - ICD9: 401.9, ICD10: I10 (primary diagnosis) - Controlled - Continue current medications - LISINOPRIL 10 MG TABLET - HYDROCHLOROTHIAZIDE 25 MG TABLET 2. Venous insufficiency - ICD9: 459.81, ICD10: I87.2 - Controlled. - HYDROCHLOROTHIAZIDE 25 MG TABLET 3. Chronic kidney insufficiency, stage 3 (moderate) (HCC) - ICD9: 585.3, ICD10: N18.30 - eGFR: 57 Stable - Counseled on avoiding NSAIDs, adequate hydration 4. Impaired fasting glucose - ICD9: 790.21, ICD10: R73.01 - Stable. Low carb diet. 5. Hyperlipidemia LDL goal <100 - ICD9: 272.4, ICD10: E78.5 - Controlled - Continue current medications - COMPREHENSIVE METABOLIC PANEL - LIPID PANEL BASIC Navdeep Ulloa MD Addendum: 6. SIOBHAN on CPAP - ICD9: 327.23, ICD10: G47.33 I called and spoke to Azalea regarding obstructive sleep apnea. She had been forgetting to use the CPAP at times, and noted she felt better and sleep was better using the CPAP. She will use the CPAP regularly as she is benefiting from the treatment and must continue. Navdeep Ulloa, [facility]06-26-2024 History of Present illness Narrative* Navdeep Ulloa MD - 09/02/2023 10:43 AM EDT This note was created using NoteWriter. Subjective Azalea Mott is a 73 year old female. Her hypertension was stable, and edema was better. Review of Systems Constitutional: Negative. Respiratory: Negative. Cardiovascular: Negative. Neurological: Negative. ACTIVE PROBLEM LIST Hearing Loss in Left Ear Hyperlipidemia Ldl Goal <100 Hypertension, Essential Siobhan On Cpap Obesity, Class I, Bmi 30-34.9 Chronic Kidney Insufficiency, Stage 3 (Moderate) (Hcc) Impaired Fasting Glucose Current Outpatient Medications Medication Sig HAIR, SKIN AND NAILS, BIOTIN, ORAL Take 2 tablets by mouth once daily. lisinopril (ZESTRIL) 20 mg tablet Take 0.5 tablets by mouth once daily. hydroCHLOROthiazide 12.5 mg capsule Take 2 capsules by mouth once daily. albuterol HFA (PROVENTIL HFA, VENTOLIN HFA) 90 mcg/actuation inhaler Inhale 2 Puffs as instructed every 6 hours as needed for wheezing/shortness of breath. atorvastatin (LIPITOR) 10 mg tablet Take 1 tablet by mouth daily at bedtime. For cholesterol. diphenhydrAMINE-Acetaminophen (TYLENOL PM EXTRA STRENGTH) 25-500 mg tab At bedtime for sleep CPAP CPAP Supplies, All Necessary equipment including tubing and full mask ICD G47.33 ascorbic acid (VITAMIN C ORAL) Take 1 tablet by mouth once daily. elderberry fruit (ELDERBERRY ORAL) Take 2 Doses by mouth once daily. CPAP 30 day download for And please send chin strap Auto PAP @ 5-20 cm of water with humidification. Mask (per patient preference) optional chin strap (if indicated) , filters, tubing, humidifier andlifetime supplies. TURMERIC ORAL Take by mouth once daily. With curcumin Black Cohosh 40 mg tab Take 1 tablet by mouth. Take 1 tablet every other day ferrous sulfate 325 mg (65 mg iron) tablet Take 650 mg by mouth daily with breakfast. cholecalciferol (VITAMIN D3) 50 mcg (2,000 unit) tablet Take by mouth. Fiber Cap Take 3 capsules by mouth once daily. multivitamins(DAILY MULTIVITAMIN TAB) Take one(1) tablet daily. No current facility-administered medications for this visit. Objective BP 102/70 (BP Site: Left Arm, BP Position: Sitting, BP Cuff Size: Large Adult) Pulse 80 Temp 36.8 C (98.3 F) (Temporal) Wt 96.2 kg (212 lb) BMI 32.71 kg/m Physical Exam Constitutional: Appearance: Normal appearance. Musculoskeletal: Right lower leg: No edema. Left lower leg: No edema. Assessment and Plan 1. Hypertension, essential - ICD9: 401.9, ICD10: I10 (primary diagnosis) - Controlled - Continue current medications - LISINOPRIL 10 MG TABLET - HYDROCHLOROTHIAZIDE 25 MG TABLET 2. Venous insufficiency - ICD9: 459.81, ICD10: I87.2 - Controlled. - HYDROCHLOROTHIAZIDE 25 MG TABLET 3. Chronic kidney insufficiency, stage 3 (moderate) (HCC) - ICD9: 585.3, ICD10: N18.30 - eGFR: 57 Stable - Counseled on avoiding NSAIDs, adequate hydration 4. Impaired fasting glucose - ICD9: 790.21, ICD10: R73.01 - Stable. Low carb diet. 5. Hyperlipidemia LDL goal <100 - ICD9: 272.4, ICD10: E78.5 - Controlled - Continue current medications - COMPREHENSIVE METABOLIC PANEL - LIPID PANEL BASIC Navdeep Ulloa MD documented in [facility] NoteHNO ID: [id number] Author: NAVDEEP ULLOA MD Service: ? Author Type: Physician Type: Progress Notes Filed: 08/25/2023 11:47 Note Text: This note was created using [employer]. Subjective Azalea Mott is a 73 year old female. She started noticing significant bilateral ankle edema one week ago, worse towards day's end, and resolved on arising in the morning. Dietary sodium may have increased recently due to camping activities. Her hypertension medications were unchanged. Other concern was recent onset of fatigue maybe 2 weeks ago. Review of Systems Constitutional: Positive for fatigue. Negative for activity change, appetite change, diaphoresis and fever. HENT: Negative. Respiratory: Negative for chest tightness, shortness of breath and wheezing. Cardiovascular: Positive for leg swelling. Negative for chest pain and palpitations. Gastrointestinal: Negative for blood in stool, diarrhea, nausea and vomiting. Genitourinary: Negative for hematuria. Neurological: Positive for light-headedness. Negative for dizziness and headaches. ACTIVE PROBLEM LIST Hearing Loss in Left Ear Hyperlipidemia Ldl Goal <100 Hypertension, Essential Siobhan On Cpap Obesity, Class I, Bmi 30-34.9 Kidney Insufficiency Impaired Fasting Glucose Social History Tobacco Use Smoking status: Never Smokeless tobacco: Never Substance Use Topics Alcohol use: No Drug use: No Current Outpatient Medications Medication Sig HAIR, SKIN AND NAILS, BIOTIN, ORAL Take 2 tablets by mouth once daily. albuterol HFA (PROVENTIL HFA, VENTOLIN HFA) 90 mcg/actuation inhaler Inhale 2 Puffs as instructed every 6 hours as needed for wheezing/shortness of breath. lisinopril (ZESTRIL) 20 mg tablet Take 1 tablet by mouth once daily. hydroCHLOROthiazide 12.5 mg capsule Take 1 capsule by mouth once daily. atorvastatin (LIPITOR) 10 mg tablet Take 1 tablet by mouth daily at bedtime. For cholesterol. diphenhydrAMINE-Acetaminophen (TYLENOL PM EXTRA STRENGTH) 25-500 mg tab At bedtime for sleep CPAP CPAP Supplies, All Necessary equipment including tubing and full mask ICD G47.33 ascorbic acid (VITAMIN C ORAL) Take 1 tablet by mouth once daily. elderberry fruit (ELDERBERRY ORAL) Take 2 Doses by mouth once daily. CPAP 30 day download for And please send chin strap Auto PAP @ 5-20 cm of water with humidification. Mask (per patient preference) optional chin strap (if indicated) , filters, tubing, humidifier and lifetime supplies. TURMERIC ORAL Take by mouth once daily. With curcumin Black Cohosh 40 mg tab Take 1 tablet by mouth. Take 1 tablet every other day ferrous sulfate 325 mg (65 mg iron) tablet Take 650 mg by mouth daily with breakfast. cholecalciferol (VITAMIN D3) 50 mcg (2,000 unit) tablet Take by mouth. Fiber Cap Take 3 capsules by mouth once daily. multivitamins(DAILY MULTIVITAMIN TAB) Take one(1) tablet daily. benzonatate (TESSALON PERLES) 100 mg capsule Take 1 capsule by mouth three times a day as needed for cough. (Patient not taking: Reported on 08/12/2023) No current facility-administered medications for this visit. Objective BP 118/68 (BP Site: Right Arm, BP Position: Sitting, BP Cuff Size: Large Adult) Pulse 72 Temp 36.4 ?C (97.5 ?F) (Temporal) Resp 16 Wt 96.2 kg (212 lb) BMI 32.71 kg/m? Physical Exam Constitutional: General: She is not in acute distress. Appearance: She is not ill-appearing or diaphoretic. HENT: Head: Normocephalic. Mouth/Throat: Mouth: Mucous membranes are moist. Eyes: Conjunctiva/sclera: Conjunctivae normal. Cardiovascular: Rate and Rhythm: Normal rate and regular rhythm. Heart sounds: No murmur heard. No gallop. Pulmonary: Effort: No respiratory distress. Breath sounds: Normal breath sounds. No wheezing or rales. Abdominal: General: There is no distension. Tenderness: There is no abdominal tenderness. Musculoskeletal: General: No tenderness or signs of injury. Right lower le+ Pitting Edema present. Left lower le+ Pitting Edema present. Neurological: Mental Status: She is alert. Latest Ref Rn 08/24/2023 Glucose 74 - 99 mg/dL 120 (H) BUN 7 - 21 mg/dL 18 Creatinine 0.58 - 0.96 mg/dL 1.05 (H) Sodium 136 - 144 mmol/L 140 Potassium 3.7 - 5.1 mmol/L 4.3 Chloride 98 - 107 mmol/L 102 CO2 22 - 30 mmol/L 28 Anion Gap 8 - 15 mmol/L 10 Calcium 8.5 - 10.2 mg/dL 10.0 eGFR >=60 mL/min/1.73m? 57 (L) Hemoglobin A1C 4.3 - 5.6 % 5.8 (H) Estimated Average Glucose mg/dL 120 Legend: (H) High (L) Low Assessment and Plan 1. Venous insufficiency - ICD9: 459.81, ICD10: I87.2 (primary diagnosis) - Low sodium diet. - Frequent leg elevation. - Compression stocking declined. - Increase hydrochlorothiazide. 2. Hypertension, essential - ICD9: 401.9, ICD10: I10 - Controlled - LISINOPRIL 20 MG TABLET. Decrease LISINOPRIL to 1/2 tablet. - HYDROCHLOROTHIAZIDE 12.5 MG CAPSULE. Increase dose. See above. 3. Fatigue, unspecifi (more content not included)...[facility] 08-25-2023 History of Present illness Narrative* Navdeep Ulloa MD - 08/25/2023 10:19 AM EDT This note was created using [employer]. Subjective Azalea Mott is a 73 year old female. She started noticing significant bilateral ankle edema oneweek ago, worse towards day's end, and resolved on arising in the morning. Dietary sodium may have increased recently due to camping activities. Her hypertension medications were unchanged. Other concern was recent onset of fatigue maybe 2 weeks ago. Review of Systems Constitutional: Positive for fatigue. Negative for activity change, appetite change, diaphoresis and fever. HENT: Negative. Respiratory: Negative for chest tightness, shortness of breath and wheezing. Cardiovascular: Positive for leg swelling. Negative for chest pain and palpitations. Gastrointestinal: Negative for blood in stool, diarrhea, nausea and vomiting. Genitourinary: Negative for hematuria. Neurological: Positive for light-headedness. Negative for dizziness and headaches. ACTIVE PROBLEM LIST Hearing Loss in Left Ear Hyperlipidemia Ldl Goal <100 Hypertension, Essential Siobhan On Cpap Obesity, Class I, Bmi 30-34.9 Kidney Insufficiency Impaired Fasting Glucose Social History Tobacco Use Smoking status: Never Smokeless tobacco: Never Substance Use Topics Alcohol use: No Drug use: No Current Outpatient Medications Medication Sig HAIR, SKIN AND NAILS, BIOTIN, ORAL Take 2 tablets by mouth once daily. albuterol HFA (PROVENTIL HFA, VENTOLIN HFA) 90 mcg/actuation inhaler Inhale 2 Puffs as instructed every 6 hours as needed for wheezing/shortness of breath. lisinopril (ZESTRIL) 20 mg tablet Take 1 tablet by mouth once daily. hydroCHLOROthiazide 12.5 mg capsule Take 1 capsule by mouth once daily. atorvastatin (LIPITOR) 10 mg tablet Take 1 tablet by mouth daily at bedtime. For cholesterol. diphenhydrAMINE-Acetaminophen (TYLENOL PM EXTRA STRENGTH) 25-500 mg tab At bedtime for sleep CPAP CPAP Supplies, All Necessary equipment including tubing and full mask ICD G47.33 ascorbic acid (VITAMIN C ORAL) Take 1 tablet by mouth once daily. elderberry fruit (ELDERBERRY ORAL) Take 2 Doses by mouth once daily. CPAP 30 day download for And please send chin strap Auto PAP @ 5-20 cm of water with humidification. Mask (per patient preference) optional chin strap (if indicated) , filters, tubing, humidifier andlifetime supplies. TURMERIC ORAL Take by mouth once daily. With curcumin Black Cohosh 40 mg tab Take 1 tablet by mouth. Take 1 tablet every other day ferrous sulfate 325 mg (65 mg iron) tablet Take 650 mg by mouth daily with breakfast. cholecalciferol (VITAMIN D3) 50 mcg (2,000 unit) tablet Take by mouth. Fiber Cap Take 3 capsules by mouth once daily. multivitamins(DAILY MULTIVITAMIN TAB) Take one(1) tablet daily. benzonatate (TESSALON PERLES) 100 mg capsule Take 1 capsule by mouth three times a day as needed for cough. (Patient not taking: Reported on 08/12/2023) No current facility-administered medications for this visit. Objective BP 118/68 (BP Site: Right Arm, BP Position: Sitting, BP Cuff Size: Large Adult) Pulse 72 Temp 36.4 C (97.5 F) (Temporal) Resp 16 Wt 96.2 kg (212 lb) BMI 32.71 kg/m Physical Exam Constitutional: General: She is not in acute distress. Appearance: She is not ill-appearing or diaphoretic. HENT: Head: Normocephalic. Mouth/Throat: Mouth: Mucous membranes are moist. Eyes: Conjunctiva/sclera: Conjunctivae normal. Cardiovascular: Rate and Rhythm: Normal rate and regular rhythm. Heart sounds: No murmur heard. No gallop. Pulmonary: Effort: No respiratory distress. Breath sounds: Normal breath sounds. No wheezing or rales. Abdominal: General: There is no distension. Tenderness: There is no abdominal tenderness. Musculoskeletal: General: No tenderness or signs of injury. Right lower le+ Pitting Edema present. Left lower le+ Pitting Edema present. Neurological: Mental Status: She is alert. Latest Ref Rng 08/24/2023 Glucose 74 - 99 mg/dL 120 (H) BUN 7 - 21 mg/dL 18 Creatinine 0.58 - 0.96 mg/dL 1.05 (H) Sodium 136 - 144 mmol/L 140 Potassium 3.7 - 5.1 mmol/L 4.3 Chloride 98 - 107 mmol/L 102 CO2 22 - 30 mmol/L 28 Anion Gap 8 - 15 mmol/L 10 Calcium 8.5 - 10.2 mg/dL 10.0 eGFR >=60 mL/min/1.73m 57 (L) Hemoglobin A1C 4.3 - 5.6 % 5.8 (H) Estimated Average Glucose mg/dL 120 Legend: (H) High (L) Low Assessment and Plan 1. Venous insufficiency - ICD9: 459.81, ICD10: I87.2 (primary diagnosis) - Low sodium diet. - Frequent leg elevation. - Compression stocking declined. - Increase hydrochlorothiazide. 2. Hypertension, essential - ICD9: 401.9, ICD10: I10 - Controlled - LISINOPRIL 20 MG TABLET. Decrease LISINOPRIL to 1/2 tablet. - HYDROCHLOROTHIAZIDE 12.5 MG CAPSULE. Increase dose. See above. 3. Fatigue, unspecified type - ICD9: 780.79, ICD10: R53.83 Overmedication? Reduce LISINOPRIL to 1/2 tablet. - COMPLETE BLOOD COUNT - THYROID STIMULATING HORMONE 4. Chronic kidney insufficiency, stage 3 (moderate) (HCC) - ICD9: 585.3, ICD10: N18.30 - eGFR: 57 Stable - Counseled on avoiding NSAIDs, adequate hydration Navdeep Ulloa MD [facility] Telephone encounter Note * Telephone Encounter - Walt Robertson MD - 08/21/2023 5:07 PM EDT Agree with recommendations. Encourage patient to eat lower sodium diet and keep legs elevation. Discuss adding on additional labs depending on symptoms on 08/23. [facility] Work Phone: [phone] 402-721106-14-2024 Miscellaneous Notes* Telephone Encounter - Walt Robertson MD - 08/21/2023 5:07 PM EDT Agree with recommendations. Encourage patient to eat lower sodium diet and keep legs elevation. Discuss adding on additional labs depending on symptoms on 08/23. * Telephone Encounter - Keya Chisholm RN - 08/21/2023 10:38 AM EDT Protocol recommends see provider in 3 days. Pt scheduled with Dot Villa on 08/24/23 at 0800 am. Care plan reviewed with patient. Patient voices understanding. Advised patient that if symptoms get worse to be evaluated in Urgent Care or ER. Pt states she is coming in on 08/24/23 to get lab work done, asking if provider would want any more labs added. Reason for Disposition [1] MILD swelling of both ankles (i.e., pedal edema) AND [2] new-onset or worsening Answer Assessment - Initial Assessment Questions 1. ONSET: The swelling started a week ago. 2. LOCATION: The ankles and feet are swollen on both legs. 3. SEVERITY: - Localized: Small area of swelling localized to one leg. - MILD pedal edema: Swelling limited to foot and ankle, pitting edema < 1/4 inch (6 mm) deep, rest and elevation eliminate most or all swelling. - MODERATE edema: Swelling of lower leg to knee, pitting edema > 1/4 inch (6 mm) deep, rest and elevation only partially reduce swelling. - SEVERE edema: Swelling extends above knee, facial or hand swelling present. Moderate limited to feet and ankles, states may go up legs a little bit but does not reach knees. States rest and elevation do not reduce the swelling. 4. REDNESS: The swelling does not look red or infected. 5. PAIN: Denies pain, not even to touch. 6. FEVER:Denies. 7. CAUSE: States they have been traveling a lot, so have been eating more hamburgers and singaporean fries, so could be increased sodium. 8. MEDICAL HISTORY: Denies any history of blood clots, cancer, heart failure, kidney disease, or liver failure. 9. RECURRENT SYMPTOM: Denies leg swelling before. 10. OTHER SYMPTOMS: Pt denies chest pain, difficulty breathing. States she had bronchitis a couple weeks ago, states she feels much better from that. 11. : Postmenopausal. Protocols used: Leg Swelling and [id number] documented in this encounterThe [facility]06-[facility] Telephone encounter Note * Telephone Encounter - Keya Chisholm RN - 08/21/2023 10:38 AM EDT Protocol recommends see provider in 3 days. Pt scheduled with Dot Villa on 08/24/23 at 0800 am. Care plan reviewed with patient. Patient voices understanding. Advised patient that if symptoms get worse to be evaluated in Urgent Care or ER. Pt states she is coming in on 08/24/23 to get lab work done, asking if provider would want any more labs added. Reason for Disposition [1] MILD swelling of both ankles (i.e., pedal edema) AND [2] new-onset or worsening Answer Assessment - Initial Assessment Questions 1. ONSET: The swelling started a week ago. 2. LOCATION: The ankles and feet are swollen on both legs. 3. SEVERITY: - Localized: Small area of swelling localized to one leg. - MILD pedal edema: Swelling limited to foot and ankle, pitting edema < 1/4 inch (6 mm) deep, rest and elevation eliminate most or all swelling. - MODERATE edema: Swelling of lower leg to knee, pitting edema > 1/4 inch (6 mm) deep, rest and elevation only partially reduce swelling. - SEVERE edema: Swelling extends above knee, facial or hand swelling present. Moderate limited to feet and ankles, states may go up legs a little bit but does not reach knees. States rest and elevation do not reduce the swelling. 4. REDNESS: The swelling does not look red or infected. 5. PAIN: Denies pain, not even to touch. 6. FEVER:Denies. 7. CAUSE: States they have been traveling a lot, so have been eating more hamburgers and sing[place]an fries, so could be increased sodium. 8. MEDICAL HISTORY: Denies any history of blood clots, cancer, heart failure, kidney disease, or liver failure. 9. RECURRENT SYMPTOM: Denies leg swelling before. 10. OTHER SYMPTOMS: Pt denies chest pain, difficulty breathing. States she had bronchitis a couple weeks ago, states she feels much better from that. 11. : Postmenopausal. Protocols used: Leg Swelling and [id number] [facility] Telephone encounter Note* Telephone Encounter - Esther De Leon LPN - 08/17/2023 11:17 AM EDT Pt notified. [facility]06-10-[facility] Miscellaneous Notes* Telephone Encounter - Esther De Leon LPN - 08/17/2023 11:17 AM EDT Pt notified. * Telephone Encounter - Esther De Leon LPN - 08/17/2023 11:16 AM EDT ----- Message from Navdeep Ulloa MD sent at 08/16/2023 11:02 PM EDT ----- chest X-ray negative. Please inform the patient. documented in this encounterThe [facility]06-10-2024 Telephone encounter Note * Telephone Encounter - Esther De Leon LPN - 08/17/2023 11:16 AM EDT ----- Message from Navdeep Ulloa MD sent at 08/16/2023 11:02 PM EDT ----- chest X-ray negative. Please inform the patient. [facility]06-05-[facility] History of Present illness Narrative* Santa Green, RT(R) - 08/12/2023 9:00 AM EDT Radiology Service Progress Note PATIENT NAME: Azalea Mott DATE OF SERVICE: August 12, 2023 TIME: 9:09 AM PATIENT IDENTITY VERIFICATION COMPLETED USING TWO (2) IDENTIFIERS: Name and Date of confirmedby patient verbally. FALL SCREENING: Has the patient had 2 falls in the last year or 1 fall with injury or currently using an Ambulatory Assistive Device (Walker, Cane, Wheelchair, Crutches, etc.)? No PATIENT GENDER DATA: Female. status: : No status: NO. PATIENT RELEVANT IMPLANT DATA REVIEWED: Yes PATIENT PRESENTS WITH AN IMPLANTABLE OR ATTACHED CORPORATE DIRECTOR: No RADIOLOGY DEPARTMENT: General X-ray: Exam(s) Completed: Chest X-Ray PERIPHERAL IV DATA: Not applicable SIGNED BY: RT Tyler(R) August 12, 2023 9:09 AM documented in this encounterThe [facility] History of Present illness Narrative* Navdeep Ulloa MD - 08/12/2023 8:34 AM EDT This note was created using [employer] Microwaver[employer]. Subjective Azalea Mott is a 73 year old female who presents with complaint of cough- nonproductive, with some wheezing heard, with coughing fits, and for the past 2 weeks. . She denies fever, headache, ear pain, sore throat, dyspnea, nausea, vomiting, and diarrhea. Treatments tried include benzonatate with temporary relief of symptoms. No one else in the house was sick. She was seen in and diagnosed with viral URI. Review of Systems Per HPI. ACTIVE PROBLEM LIST Hearing Loss in Left Ear Hyperlipidemia Ldl Goal <100 Hypertension, Essential Siobhan On Cpap Obesity, Class I, Bmi 30-34.9 Kidney Insufficiency Impaired Fasting Glucose Social History Tobacco Use Smoking status: Never Smokeless tobacco: Never Substance Use Topics Alcohol use: No Drug use: No Current Outpatient Medications Medication Sig lisinopril (ZESTRIL) 20 mg tablet Take 1 tablet by mouth once daily. hydroCHLOROthiazide 12.5 mg capsule Take 1 capsule by mouth once daily. atorvastatin (LIPITOR) 10 mg tablet Take 1 tablet by mouth daily at bedtime. For cholesterol. diphenhydrAMINE-Acetaminophen (TYLENOL PM EXTRA STRENGTH) 25-500 mg tab At bedtime for sleep CPAP CPAP Supplies, All Necessary equipment including tubing and full mask ICD G47.33 ascorbic acid (VITAMIN C ORAL) Take 1 tablet by mouth once daily. elderberry fruit (ELDERBERRY ORAL) Take 2 Doses by mouth once daily. CPAP 30 day download for And please send chin strap Auto PAP @ 5-20 cm of water with humidification. Mask (per patient preference) optional chin strap (if indicated) , filters, tubing, humidifier andlifetime supplies. TURMERIC ORAL Take by mouth once daily. With curcumin Black Cohosh 40 mg tab Take 1 tablet by mouth. Take 1 tablet every other day ferrous sulfate 325 mg (65 mg iron) tablet Take 650 mg by mouth daily with breakfast. cholecalciferol (VITAMIN D3) 50 mcg (2,000 unit) tablet Take by mouth. Fiber Cap Take 3 capsules by mouth once daily. multivitamins(DAILY MULTIVITAMIN TAB) Take one(1) tablet daily. predniSONE (DELTASONE) 20 mg tablet Take 1 tablet by mouth once daily for 5 days. albuterol HFA (PROVENTIL HFA, VENTOLIN HFA) 90 mcg/actuation inhaler Inhale 2 Puffs as instructed every 6 hours as needed for wheezing/shortness of breath. benzonatate (TESSALON PERLES) 100 mg capsule Take 1 capsule by mouth three times a day as needed for cough. (Patient not taking: Reported on 08/12/2023) No current facility-administered medications for this visit. Objective BP 120/68 (BP Site: Left Arm, BP Position: Sitting, BP Cuff Size: Large Adult) Pulse (!) 52 Temp 36.2 C (97.1 F) (Temporal) Resp 12 Wt 96.2 kg (212 lb) BMI 32.71 kg/m Physical Exam Constitutional: Appearance: She is not ill-appearing. HENT: Nose: No congestion or rhinorrhea. Mouth/Throat: Mouth: Mucous membranes are moist. Pharynx: Oropharynx is clear. No oropharyngeal exudate or posterior oropharyngeal erythema. Eyes: Conjunctiva/sclera: Conjunctivae normal. Cardiovascular: Rate and Rhythm: Regular rhythm. Bradycardia present. Pulmonary: Effort: No respiratory distress. Breath sounds: Rhonchi present. No wheezing or rales. Comments: Bronchospastic cough. Lymphadenopathy: Cervical: No cervical adenopathy. Neurological: Mental Status: She is alert. Assessment and Plan 1. Bronchitis with bronchospasm - ICD9: 490, ICD10: J20.9 - PREDNISONE 20 MG TABLET. Daily x 5 doses. Discussed medication dosage, usage, goals of therapy, and side effects. - ALBUTEROL SULFATE HFA 90 MCG/ACTUATION AEROSOL INHALER The proper method of use, as well as anticipated side effects, of this inhaler are discussed and demonstrated to the patient. - XR CHEST 2V FRONTAL/LAT Navdeep Ulloa MD documented in [facility] encounterThe [facility]05-[facility] Telephone encounter Note * Telephone Encounter - Justina Hernandez LPN - 08/04/2023 7:20 AM EDT Patient notified.Justina Hernandez LPN [facility] Miscellaneous Notes* Telephone Encounter - Justina Hernandez LPN - 08/04/2023 7:20 AM EDT Patient notified.Justina Hernandez LPN * Telephone Encounter - Benjamín Jackson APRN.CNP - 08/04/2023 7:13 AM EDT COVID-19, influenza A, and influenza B PCR test are negative. Continue supportive therapies as discussed during visit. Follow-up with PCP if symptoms are not improving. Benjamín Jackson APRN.KYAW documented in this encounterThe [facility]05-28-[facility]24 Telephone encounter Note * Telephone Encounter - Benjamín Jackson APRN.CNP - 08/04/2023 7:13 AM EDT COVID-19, influenza A, and influenza B PCR test are negative. Continue supportive therapies as discussed during visit. Follow-up with PCP if symptoms are not improving. Benjamín Jackson APRN.KYAW [facility] Work Phone: 1(256) 479-514505-27-2024 History of Present illness Narrative* Roxanne MendozaKASIA.PROTEIN PURIFICATION SCIENTIST - 08/03/2023 9:56 AM EDT This note was created using [employer] Microw[employer]. Subjective Azalea Mott is a 73 year old female. Azalea Mott is a 73 year old female with a PMH of chronic otitis media, HLD, HTN, obesity, and SIOBHAN presenting today with complaints of a cough starting on Thursday. She has no sick contacts that she is aware of. No history of COPD or asthma. No recent illness. She does not have a sore throat, no eye complaints, no nasal complaints. She has tried cough syrup to no relief. Nothing triggers the cough. It is frequent. This morning she had a productive cough but did not visualize what she had produced. She also states that when she lays down she can hear crackling in both of her ears. Pertinent negatives: -sore throat -diaphoresis -n/v/d -chest pain -shortness of breath -pain -nasal drainage -ear drainage -eye drainage Pertinent positives: +fever +chills +body aches +fatigue +productive cough The history is provided by the patient. Cough This is a new problem. The current episode started 2 days ago. The problem occurs constantly. The problem has not changed since onset.The cough is Productive of sputum (productive with unknown sputumappearance). Maximum temperature: unknown temperature. The fever has been present for 1 to 2 days. A ssociated symptoms include chills, ear congestion and myalgias. Pertinent negatives include no chest pain, no sweats, no weight loss, no ear pain, no headaches, no rhinorrhea, no sore throat, no shortness of breath, no wheezing and no eye redness. She has tried cough syrup for the symptoms. The treatment provided no relief. She is not a smoker. Her past medical history does not include bronchitis, pneumonia, bronchiectasis, COPD, emphysema or asthma. PAST MEDICAL HISTORY Diagnosis Date Cholelithiasis with acute cholecystitis with biliary obstruction 09/2020 Chronic otitis media of both ears 1955 COVID-19 01/30/2021 home antigen test Diverticulosis of colon (without mention of hemorrhage) Diverticulosis Hearing loss in left ear 03/27/2009 Hereditary and idiopathic peripheral neuropathy Hyperlipidemia LDL goal <100 01/18/2016 Hypertension, essential 01/02/2020 Obesity, Class I, BMI 30-34.9 10/25/2020 SIOBHAN (obstructive sleep apnea) 01/27/2020 Personal history of colonic polyps 10/18/2004 hyperplastic Colon polyps Unspecified hemorrhoids without mention of complication Hemorrhoids PAST SURGICAL HISTORY Procedure Laterality Date ADENOIDECTOMY PRIMARY <AGE 13 Adenoidectomy COLONOSCOPY FLX DX W/COLLJ SPEC WHEN PFRMD 10/18/2004 Colonoscopy-repeat in COLONOSCOPY FLX DX W/COLLJ SPEC WHEN PFRMD 02/13/2017 [id number] 10 years HYSTEROSCOPY BX W/WO D&C 12/2011 endometrial polyp LAPAROSCOPIC CHOLECYSTECTOMY 09/24/2020 LAPS ABD PRTM&OMENTUM DX W/WO SPEC BR/WA SPX Laparoscopy MASTOIDECTOMY,COMPLETE Left 1955 Mastoidectomy, left TONSILLECTOMY PRIMARY/SECONDARY <AGE 13 Tonsillectomy ALLERGIES [place] [Hydrocodone-Acetaminophen] MEDICATIONS lisinopril (ZESTRIL) 20 mg tablet Take 1 tablet by mouth once daily. hydroCHLOROthiazide 12.5 mg capsule Take 1 capsule by mouth once daily. atorvastatin (LIPITOR) 10 mg tablet Take 1 tablet by mouth daily at bedtime. For cholesterol. diphenhydrAMINE-Acetaminophen (TYLENOL PM EXTRA STRENGTH) 25-500 mg tab At bedtime for sleep CPAP CPAP Supplies, All Necessary equipment including tubing and full mask ICD G47.33 ascorbic acid (VITAMIN C ORAL) Take 1 tablet by mouth once daily. elderberry fruit (ELDERBERRY ORAL) Take 2 Doses by mouth once daily. CPAP 30 day download for And please send chin strap Auto PAP @ 5-20 cm of water with humidification. Mask (per patient preference) optional chin strap (if indicated) , filters, tubing, humidifier andlifetime supplies. TURMERIC ORAL Take by mouth once daily. With curcumin Black Cohosh 40 mg tab Take 1 tablet by mouth. Take 1 tablet every other day ferrous sulfate 325 mg (65 mg iron) tablet Take 650 mg by mouth daily with breakfast. cholecalciferol (VITAMIN D3) 50 mcg (2,000 unit) tablet Take by mouth. Fiber Cap Take 3 capsules by mouth once daily. multivitamins(DAILY MULTIVITAMIN TAB) Take one(1) tablet daily. FAMILY HISTORY Problem Relation Age of Onset Hypertension Mother Asthma Mother Diabetes Mother COPD Mother other (crohns [Other]) Mother Cancer Father NON HODGKINS LYMPHOMA Heart Father CHF Stroke Father age 82 Heart Sister CHF other (diabetes mellitus [Other]) Sister Hypertension Sister Pneumonia Sister Fibromyalgia Sister Kidney Disease Sister Pneumonia Brother other (Covid 19 sequelae) Brother No Known Problems Brother No Known Problems Brother Diabetes Maternal Grandmother Stroke Paternal Grandfather Tuberculosis Paternal Grandfather Social History Tobacco Use Smoking status: Never Smokeless tobacco: Never Substance Use Topics Alcohol use: No Drug use: No Review of Systems Constitutional: Positive for chills, fatigue and fever. Negative for diaphoresis and weight loss. HENT: Negative for ear discharge, ear pain, postnasal drip, rhinorrhea, sinus pressure, sinus pain,sore throat, tinnitus and trouble swallowing. Eyes: Negative for pain, discharge, redness and itching. Respiratory: Positive for cough. Negative for chest tightness, shortness of breath, wheezing and stridor. Cardiovascular: Negative for chest pain and palpitations. Gastrointestinal: Negative for constipation, diarrhea, nausea and vomiting. Musculoskeletal: Positive for myalgias. Neurological: Negative for headaches. Objective BP 122/72 Pulse 74 Temp 37.3 C (99.1 F) (Tympanic) Resp 18 Wt 96.7 kg (213 lb 3 oz) SpO2 96% BMI 32.90 kg/m Physical Exam Vitals and nursing note reviewed. Constitutional: General: She is not in acute distress. Appearance: Normal appearance. She is obese. She is not toxic-appearing. HENT: Head: Normocephalic and atraumatic. Right Ear: Tympanic membrane and external ear normal. There is impacted cerumen. Left Ear: Tympanic membrane, ear canal and external ear normal. There is impacted cerumen. Ears: Comments: Slight impaction of cerumen bilaterally. Right auditory canal with small area of erythema. Nose: Congestion present. No rhinorrhea. Mouth/Throat: Mouth: Mucous membranes are moist. Pharynx: Oropharynx is clear. Uvula midline. No oropharyngeal exudate or posterior oropharyngeal erythema. Eyes: General: No scleral icterus. Right eye: No discharge. Left eye: No discharge. Conjunctiva/sclera: Conjunctivae normal. Cardiovascular: Rate and Rhythm: Normal rate and regular rhythm. Heart sounds: Normal heart sounds. No murmur heard. No friction rub. No gallop. Pulmonary: Effort: Pulmonary effort is normal. No respiratory distress. Breath sounds: Normal breath sounds. No stridor. No wheezing, rhonchi or rales. Chest: Chest wall: No tenderness. Musculoskeletal: Cervical back: No tenderness. Lymphadenopathy: Cervical: No cervical adenopathy. Skin: General: Skin is warm and dry. Neurological: Mental Status: She is alert. Psychiatric: Mood and Affect: Mood normal. Behavior: Behavior normal. Thought Content: Thought content normal. Judgment: Judgment normal. Assessment and Plan Ree Casillas ASSESSMENT/PLAN: 1. URI, acute - ICD9: 465.9, ICD10: J06.9 X 3 days Discussed her varying symptoms and 3 day duration are consistent with viral - Discussed viral etiology and rationale for treatment. - Symptomatic treatment with prn analgesia - Supportive care with fluids and rest - The patient may also use OTC cough and cold meds as needed, warm salt water gargles, throat lozenges and/or OTC throat spray as needed, and nasal saline gtts and suction prn. - Follow up in 3-5 days if symptoms persist or sooner if worsening of symptoms - RX Nithya Fuentes Patient presents on , No xray available Discussed possibility of pneumonia, Can return to be reevaluated and have CXR if symptoms continue to progress over next day or two - COVID & INFLUENZA A/B & RSV NAAT, ROUTINE-obtained and pending 2. Cough X 3 days No red flags Hemodynamically stable Lungs clear Discussed limitations Roxanne Mendoza APRN.PROTEIN PURIFICATION SCIENTIST TEACHING PROVIDER (Physician/PA/POULTRY HATCHERY MANAGER) NOTE OF PERSONAL INVOLVEMENT IN CARE: I have personally seen and examined the patient and performed the medical decision-making components. I have reviewed the Advanced Practice Registered Nurse (POULTRY HATCHERY MANAGER) Student's documentation and verified the findings in the note as written. Any additions or changes are noted in bold/italics. Signature: Roxanne Mendoza Date: 08/03/2023 Time: 11:35 AM documented in this encounterThe [facility]02-15-2024 History of Present illness Narrative* Navdeep Ulloa MD - 04/23/2023 5:36 PM EST This note was created using [employer] Mic[employer]. Subjective Patient presents with: Ear Problem: Feels plugged x 4 days Azalea Mott is a 73 year old female. She tried putting ear drops with no improvement. She's hadsimilar issues in the past, treated with lavage here in the clinic. Review of Systems Constitutional: Negative for fever. HENT: Negative for ear discharge and ear pain. ACTIVE PROBLEM LIST Hearing Loss in Left Ear Hyperlipidemia Ldl Goal <100 Hypertension, Essential Siobhan On Cpap Obesity, Class I, Bmi 30-34.9 Kidney Insufficiency Impaired Fasting Glucose Current Outpatient Medications Medication Sig lisinopril (ZESTRIL) 20 mg tablet Take 1 tablet by mouth once daily. hydroCHLOROthiazide 12.5 mg capsule Take 1 capsule by mouth once daily. atorvastatin (LIPITOR) 10 mg tablet Take 1 tablet by mouth daily at bedtime. For cholesterol. diphenhydrAMINE-Acetaminophen (TYLENOL PM EXTRA STRENGTH) 25-500 mg tab At bedtime for sleep CPAP CPAP Supplies, All Necessary equipment including tubing and full mask ICD G47.33 ascorbic acid (VITAMIN C ORAL) Take 1 tablet by mouth once daily. elderberry fruit (ELDERBERRY ORAL) Take 2 Doses by mouth once daily. CPAP 30 day download for And please send chin strap Auto PAP @ 5-20 cm of water with humidification. Mask (per patient preference) optional chin strap (if indicated) , filters, tubing, humidifier andlifetime supplies. TURMERIC ORAL Take by mouth once daily. With curcumin Black Cohosh 40 mg tab Take 1 tablet by mouth. Take 1 tablet every other day ferrous sulfate 325 mg (65 mg iron) tablet Take 650 mg by mouth daily with breakfast. cholecalciferol (VITAMIN D3) 50 mcg (2,000 unit) tablet Take by mouth. Fiber Cap Take 3 capsules by mouth once daily. multivitamins(DAILY MULTIVITAMIN TAB) Take one(1) tablet daily. No current facility-administered medications for this visit. Objective BP 120/72 Pulse (!) 48 Temp 36.6 C (97.8 F) (Temporal) Resp 16 Wt 96.2 kg (212 lb) BMI 32.71 kg/m Physical Exam HENT: Right Ear: Ear canal normal. There is impacted cerumen. Tympanic membrane is scarred. Left Ear: No tenderness. There is no impacted cerumen. Tympanic membrane is scarred and retracted. Ears: Comments: Chronic looking otitis externa, left. Assessment and Plan 1. Impacted cerumen of right ear - ICD9: 380.4, ICD10: H61.21 - AMBULATORY EAR LAVAGE/IRRIGATION This was tolerated well and was successful. Patient had immediate symptom relief. I discussed chronic otitis and she denied need to see ENT. Navdeep Ulloa MD documented in this encounterThe [facility]12-15-[facility]23 History of Present illness Narrative* Zofia Weber Mammo Tech - 02/20/2023 11:10 AM EST Radiology Service Progress Note PATIENT NAME: Azalea Mott DATE OF SERVICE: February 20, 2023 TIME: 11:30 AM PATIENT IDENTITY VERIFICATION COMPLETED USING TWO (2) IDENTIFIERS: Name and Date of confirmedby patient verbally. FALL SCREENING: Has the patient had 2 falls in the last year or 1 fall with injury or currently using an Ambulatory Assistive Device (Walker, Cane, Wheelchair, Crutches, etc.)? No PATIENT GENDER DATA: Female. status: : No status: NO. PATIENT RELEVANT IMPLANT DATA REVIEWED: Not Applicable RADIOLOGY DEPARTMENT: Mammography PERIPHERAL IV DATA: Not applicable SIGNED BY: Troy Jimenes February 20, 2023 11:30 AM documented in this encounterThe [facility]11-20-2023 History of Present illness Narrative* Mary Arroyo APRN.CNP - 01/26/2023 10:01 AM EST Azalea Mott is a 73 year old female here for a Medicare wellness visit. Medicare Health Risk Assessment In general, health is: Good Concerns with tiredness, difficulties with sexual function, balance, teeth/dentures: Not at all [place] anxious, stressed, angry, irritable, lonely, isolated, or had thoughts of hurting themself: Not at all Has little interest or pleasure in doing things: Not at all Bothered by feeling down, depressed, or hopeless: Not at all Needs help with grocery shopping, cooking, housework, bathing, grooming, dressing, eating, sitting or standing, walking, using the toilet, handling finances, taking medications, using the telephone, or driving: No Following safety precautions in the home environment and vehicle: removed throw rugs from floors, installed grab bars in the bathroom, handrails in stairwells, having adequate lighting, wearing seatbelt at all times?: Yes Smokes cigarettes, vapes, or chew tobacco: No Eats healthy foods including fruits, vegetables, whole grains, and fiber-rich foods: More than halfthe days Number of days per week engages in exercise: very little Average alcohol consumption: Never Current Providers Specialists: I have reviewed specialist-related care of the patient in the medical record. Current care team: Patient Care Team: Navdeep Ulloa MD as PCP - General (Internal Medicine) Outside specialists seen: electric furnace operator- Dr. Mcdonald Medical/Family history review Reviewed and updated problem list, medical/surgical/family/social history, medications, and allergies. Opioid use review Opioid Medications (last 90 days) Some values may be hidden. Unless noted otherwise, only the newest values recorded on each date aredisplayed. Opioid Medications No data to display. Depression screening Depression Screening PHQ-2 Score 07/24/2022 0 Depression screening tool completed and reviewed. Based on score and interview, patient is not at risk for depression. Screening tool discussed with patient, and I recommended no further interventionat this time. Cognitive screening Cognitive screening reviewed and no further action needed (score 3-5) Functional Observation Was the patient's timed Up & Go test unsteady or ? 12 seconds? No Advance Care Planning Patient did not wish or was not able to name a surrogate decision maker or provide an advance care plan Measurements Ht 5' 7.5 (1.72m) Wt 209 lb (94.8kg) BMI 32.23 kg/(m^2). Additional screenings: No results found. Component Latest Ref Rng & Units 01/22/2023 Protein, Total 6.3 - 8.0 g/dL 7.2 Albumin 3.9 - 4.9 g/dL 4.1 Calcium 8.5 - 10.2 mg/dL 10.7 (H) Bilirubin, Total 0.2 - 1.3 mg/dL 0.6 Alkaline Phosphatase 34 - 123 U/L 76 AST 13 - 35 U/L 22 ALT 7 - 38 U/L 16 Glucose 74 - 99 mg/dL 103 (H) BUN 7 - 21 mg/dL 18 Creatinine 0.58 - 0.96 mg/dL 1.08 (H) Sodium 136 - 144 mmol/L 140 Potassium 3.7 - 5.1 mmol/L 3.9 Chloride 97 - 105 mmol/L 102 CO2 22 - 30 mmol/L 30 Anion Gap 9 - 18 mmol/L 8 (L) eGFR >=60 mL/min/1.73m 55 (L) Cholesterol, Total <200 mg/dL 117 Triglyceride <150 mg/dL 92 HDL Cholesterol >39 mg/dL 45 Non HDL Cholesterol <130 mg/dL 72 Fasting Time hrs 11 VLDL Cholesterol <30 mg/dL 18 TC:HDL Ratio <5.10 2.60 LDL Cholesterol <100 mg/dL 54 LDL:HDL Ratio <2.54 1.20 Assessment/Plan Medicare annual wellness visit, subsequent (Z00.00) - Counseled on healthy diet and regular exercise - Fall avoidance information provided - Personalized prevention plan provided - Discussed need for and benefit of weight loss. BMI 32.25 kg/(m^2) 2. Hypercalcemia - ICD9: 275.42, ICD10: E83.52 Stop calcium supplement and recheck in one month - BASIC METABOLIC PNL 3. Encounter for screening mammogram for breast cancer - ICD9: V76.12, ICD10: Z12.31 - JOEL SCREENING Mary Arroyo APRN.CNP documented in this encounterThe [facility]11-20-[facility]23 Instructions* Patient Instructions* Mary Arroyo APRN.CNP - 01/26/2023 10:01 AM EST DISCONTINUE CALCIUM SUPPLEMENT Screening schedule The following prevention plan is recommended: RSV Vaccine(1 - 1-dose 60+ series) Never done DTaP,Tdap,Td Vaccine(2 - Td or Tdap) due on 03/24/2017 Mammogram Screening due on 02/19/2023 WHAT YOU CAN DO TO PREVENT FALLS Many falls can be prevented. By making some changes, you can lower your chances of falling. Four things YOU can do to prevent falls for you* and your caregiver 1. Begin a regular exercise program Exercise is one of the most important ways to lower your chances of falling. It makes you stronger and helps you feel better. Exercises that improve balance and coordination (like [place]) are the most helpful. Lack of exercise leads to weakness and increases your chances of falling. Ask your doctor or health care provider about the best type of exercise program for you. 2. Have your health care provider review your medicines Have your doctor or pharmacist review all the medicines you take, even [id number] medicines. As you get older, the way medicines work in your body can change. Some medicines, or combinations of medicines, can make you sleepy or dizzy andcan cause you to fall. 3. Have your vision checked Have your eyes checked by an eye doctor at least once a year. You may be wearing the wrong glasses or have a condition like glaucoma or cataracts that limits your vision. Poor vision can increase your chances of falling. 4. Make your home safer About half of all falls happen at home. To make your home safer: Remove things you can trip over (like papers, books, clothes, and shoes) from stairs and places where you walk. Remove small throw rugs or use double-sided tape to keep the rugs from slipping. Keep items you use often in cabinets you can reach easily without using a step stool. Have grab bars put in next to your toilet and in the tub or shower. Use non-slip mats in the bathtub and on shower floors. Improve the lighting in your home. As you get older, you need brighter lights to see well. Hang light-weight curtains or shades to reduce glare. Have handrails and lights put in on all staircases. Wear shoes both inside and outside the house. Avoid going barefoot or wearing slippers. For more information, contact: Centers for Disease Control and Prevention www.cdc.gov/injury * This information may not apply if you have certain medical conditions. documented in this encounterThe [facility]07-27-2023 History of Present illness Narrative* Navdeep Ulloa MD - 10/02/2022 10:21 AM EDT This note was created using NoteWriter. Subjective Azalea Mott is a 72 year old female. Home BP readings were variable. Lisinopril 20 mg was tolerated with no dizziness. She did not increase dose. Review of Systems Constitutional: Negative for unexpected weight change. Respiratory: Negative for shortness of breath. Cardiovascular: Negative for chest pain and leg swelling. Genitourinary: Negative for frequency. Skin: Itching upper back. Neurological: Negative for dizziness and light-headedness. ACTIVE PROBLEM LIST Hearing Loss in Left Ear Hyperlipidemia Ldl Goal <100 Hypertension, Essential Siobhan On Cpap Obesity, Class I, Bmi 30-34.9 Kidney Insufficiency Current Outpatient Medications Medication Sig lisinopril (ZESTRIL) 20 mg tablet Take 1 tablet by mouth once daily. atorvastatin (LIPITOR) 10 mg tablet Take 1 tablet by mouth daily at bedtime. For cholesterol. diphenhydrAMINE-Acetaminophen (TYLENOL PM EXTRA STRENGTH) 25-500 mg tab At bedtime for sleep CPAP CPAP Supplies, All Necessary equipment including tubing and full mask ICD G47.33 ascorbic acid (VITAMIN C ORAL) Take 1 tablet by mouth once daily. elderberry fruit (ELDERBERRY ORAL) Take 2 Doses by mouth once daily. CPAP 30 day download for And please send chin strap Auto PAP @ 5-20 cm of water with humidification. Mask (per patient preference) optional chin strap (if indicated) , filters, tubing, humidifier andlifetime supplies. TURMERIC ORAL Take by mouth once daily. With curcumin Black Cohosh 40 mg tab Take 2 tablets by mouth once daily. ferrous sulfate 325 mg (65 mg iron) tablet Take 650 mg by mouth daily with breakfast. cholecalciferol (VITAMIN D3) 50 mcg (2,000 unit) tablet Take by mouth. CALCIUM CARBONATE/VITAMIN D2 (CALCIUM + VITAMIN D ORAL) Take by mouth twice daily. Fiber Cap Take 3 capsules by mouth once daily. multivitamins(DAILY MULTIVITAMIN TAB) Take one(1) tablet daily. No current facility-administered medications for this visit. Objective BP 130/75 (BP Site: Left Arm, BP Position: Sitting, BP Cuff Size: Large Adult) Pulse 62 Resp 16 Wt 97.5 kg (215 lb) BMI 33.67 kg/m Physical Exam Cardiovascular: Rate and Rhythm: Normal rate and regular rhythm. Heart sounds: No murmur heard. No gallop. Pulmonary: Breath sounds: Normal breath sounds. Musculoskeletal: Right lower leg: No edema. Left lower leg: No edema. Skin: General: Skin is dry. Findings: No rash. Neurological: Mental Status: She is alert. Home BP range 108/81-139/71. Assessment and Plan 1. Hypertension, essential - ICD9: 401.9, ICD10: I10 (primary diagnosis) - Improving control - Continue current medications - Start hydrochlorothiazide - LISINOPRIL 20 MG TABLET - HYDROCHLOROTHIAZIDE 12.5 MG CAPSULE Discussed medication dosage, usage, goals of therapy, and side effects. 2. Dry skin - ICD9: 701.1, ICD10: L85.3 Use moisturizers. Navdeep Ulloa MD documented in this encounterThe [facility]05-[facility]23 Miscellaneous Notes* Telephone Encounter - Raquel Ling RN - 07/18/2022 10:12 AM EDT Patient calling to make an appt for today. Pt reports on Friday 07/14 she began with a cough and runny nose. Other: -unknown if fever-reports some chilling and feeling warm at times -sore throat -body aches -Denies: SOB, headache, nausea, vomiting or diarrhea -reports completed a Home COVID test on 07/16 and was negative Appt made with Mary Arroyo CNP for in-office visit today if provider agreeable. Pt not sure that she can do VV and says she could do a Phone Call Visit if needed. Raquel Ling RN documented in this encounterThe [facility]12-14-[facility]22 History of Present illness Narrative* Ioana Crawford, RT(R) - 02/19/2022 1:30 PM EST Radiology Service Progress Note PATIENT NAME: Azalea Mott DATE OF SERVICE: February 19, 2022 TIME: 1:27 PM PATIENT IDENTITY VERIFICATION COMPLETED USING TWO (2) IDENTIFIERS: Name and Date of confirmedby patient verbally. FALL SCREENING: Has the patient had 2 falls in the last year or 1 fall with injury or currently using an Ambulatory Assistive Device (Walker, Cane, Wheelchair, Crutches, etc.)? No PATIENT GENDER DATA: Female. status: : No status: NO. PATIENT RELEVANT IMPLANT DATA REVIEWED: Not Applicable RADIOLOGY DEPARTMENT: Mammography PERIPHERAL IV DATA: Not applicable SIGNED BY: RT Aries(R) February 19, 2022 1:27 PM documented in this encounterThe [facility]11-18-2022 History of Present illness Narrative* Mary Arroyo APRN.PROTEIN PURIFICATION SCIENTIST - 01/24/2022 1:10 PM EST Azalea Mott is a 72 year old female here for a Medicare Subsequent Annual Wellness Visit Health Risk Assessment In general, health is: Good Concerns with tiredness, difficulties with sexual function, balance, teeth/dentures: Fatigue, doesn't sleep well [place]inner anxious, stressed, angry, irritable, lonely, isolated, or had thoughts of hurting themself: Not at all Has little interest or pleasure in doing things: Not at all Bothered by feeling down, depressed, or hopeless: Not at all Needs help with grocery shopping, cooking, housework, bathing, grooming, dressing, eating, sitting or standing, walking, using the toilet, handling finances, taking medications, using the telephone, or driving: No Following safety precautions in the home environment and vehicle: removed throw rugs from floors, installed grab bars in the bathroom, handrails in stairwells, having adequate lighting, wearing seatbelt at all times?: No Smokes cigarettes, vapes, or chew tobacco: No Eats healthy foods including fruits, vegetables, whole grains, and fiber-rich foods: More than halfthe days Number of days per week engages in exercise: very little Average alcohol consumption: Never Current Providers Specialists: I have reviewed specialist-related care of the patient in the medical record. Current care team: Patient Care Team: Navdeep Ulloa MD as PCP - General (Internal Medicine) Outside specialists seen: Dr. Mcdonald-electric furnace operator Medical/Family history review Reviewed and updated problem list, medical/surgical/family/social history, medications, and allergies. Opioid use review Patient is not currently using opioids. Depression screening Depression Screening PHQ-2 Score 01/24/2022 0 Depression screening tool completed and reviewed. Based on score and interview, patient is not at risk for depression. Screening tool discussed with patient, and I recommended no further interventionat this time. Cognitive screening Mini Cog Score: 5 Cognitive screening reviewed and no further action needed (score 3-5) Functional Observation Was the patient's timed Up & Go test unsteady or ? 12 seconds? No Advance Care Planning End of Life planning discussed, including patient's advanced directive wishes: Yes Measurements BP 133/68 Pulse 54 Ht 5' 7 (1.70m) Wt 212 lb (96.2kg) BMI 33.20 kg/(m^2). Visual acuity: follows with optometry/ophthalmology Hearing Evaluation: PICAYUNE in the left ear, stable ASSESSMENT/PLAN: 1. Medicare annual wellness visit, subsequent - ICD9: V70.0, ICD10: Z00.00 (primary diagnosis) The following prevention plan was discussed during the office visit and provided to the patient: - fall risk reduction - Counseled on healthy diet and regular exercise - Calcium intake with supplements or by diet of 1000 mg/day for under 50, 1200- 1500 mg/day for 50+ - Discussed need and benefit for weight loss. BMI 33.20 kg/(m^2) - Mammogram ordered - exam recommended once yearly - follow-up for medicare annual exam in one year 2. Encounter for screening mammogram for breast cancer - ICD9: V76.12, ICD10: Z12.31 - JOEL SCREENING Mary Arroyo APRN.CNP documented in this encounterThe [facility]11-18-2022 Instructions* Patient Instructions* Mary Arroyo APRN.CNP - 01/24/2022 1:10 PM EST Screening schedule The following prevention plan is recommended: BP CONTROLLED (<130/80) Never done DEPRESSION ASSESSMENT Never done MAMMOGRAM due on 02/15/2022 WHAT YOU CAN DO TO PREVENT FALLS Many falls can be prevented. By making some changes, you can lower your chances of falling. Four things YOU can do to prevent falls for you* and your caregiver 1. Begin a regular exercise program Exercise is one of the most important ways to lower your chances of falling. It makes you stronger and helps you feel better. Exercises that improve balance and coordination (like [place]) are the most helpful. Lack of exercise leads to weakness and increases your chances of falling. Ask your doctor or health care provider about the best type of exercise program for you. 2. Have your health care provider review your medicines Have your doctor or pharmacist review all the medicines you take, even jrcm-xhn-[id number] medicines. As you get older, the way medicines work in your body can change. Some medicines, or combinations of medicines, can make you sleepy or dizzy andcan cause you to fall. 3. Have your vision checked Have your eyes checked by an eye doctor at least once a year. You may be wearing the wrong glasses or have a condition like glaucoma or cataracts that limits your vision. Poor vision can increase your chances of falling. 4. Make your home safer About half of all falls happen at home. To make your home safer: Remove things you can trip over (like papers, books, clothes, and shoes) from stairs and places where you walk. Remove small throw rugs or use double-sided tape to keep the rugs from slipping. Keep items you use often in cabinets you can reach easily without using a step stool. Have grab bars put in next to your toilet and in the tub or shower. Use non-slip mats in the bathtub and on shower floors. Improve the lighting in your home. As you get older, you need brighter lights to see well. Hang light-weight curtains or shades to reduce glare. Have handrails and lights put in on all staircases. Wear shoes both inside and outside the house. Avoid going barefoot or wearing slippers. For more information, contact: Centers for Disease Control and Prevention www.cdc.gov/injury * This information may not apply if you have certain medical conditions. documented in this encounterThe [facility]08-19-2022 Miscellaneous Notes* Telephone Encounter - Esther De Leon LPN - 10/25/2021 4:15 PM EDT Last seen pcp 05/24/21. Next appt with pcp 01/22/22. documented in this encounterThe [facility]06-09-2022 Miscellaneous Notes* Telephone Encounter - Navdeep Ulloa MD - 08/15/2021 9:37 AM EDT Negative for Covid or flu. * Telephone Encounter - Kelli Romero LPN - 08/14/2021 1:28 PM EDT Patient Uli li said my is sick, coughing. I want to have her checked for COVID, what do I do. Advised him that she needs to go [facility], that provider would decide if she needs tested for COVID and influenza. He plans to bring her to [facility]. documented in this encounterThe [facility]06-08-2022 History of Present illness Narrative* Freeman Martinez APRN.KYAW - 08/14/2021 3:15 PM EDT Subjective HPI HPI Azalea Mott is a 71 year old female who presents today for CC of coui. This started cough, fever. Has tried 1 day ago. Symptoms are worsened by nothing. No known sick exposures. Vaccinated for covid. Denies cp/sob, n/v/d, ear pain. .Patient presents with: Cough: fever 100.2 at home x 1 day PAST MEDICAL HISTORY Diagnosis Date Cholelithiasis with acute cholecystitis with biliary obstruction 09/2020 COVID-19 01/30/2021 home antigen test Diverticulosis of colon (without mention of hemorrhage) Diverticulosis Hearing loss in left ear 03/27/2009 Hereditary and idiopathic peripheral neuropathy Hyperlipidemia LDL goal <100 01/18/2016 Hypertension, essential 01/02/2020 Obesity, Class I, BMI 30-34.9 10/25/2020 SIOBHAN (obstructive sleep apnea) 01/27/2020 Personal history of colonic polyps 10/18/2004 hyperplastic Colon polyps Unspecified hemorrhoids without mention of complication Hemorrhoids PAST SURGICAL HISTORY Procedure Laterality Date ADENOIDECTOMY PRIMARY <AGE 13 Adenoidectomy COLONOSCOPY FLX DX W/COLLJ SPEC WHEN PFRMD 10/18/2004 Colonoscopy-repeat in COLONOSCOPY FLX DX W/COLLJ SPEC WHEN PFRMD 02/13/2017 WDA-Tawsv-japnyn 10 years HYSTEROSCOPY BX W/WO D&C 12/2011 endometrial polyp LAPAROSCOPIC CHOLECYSTECTOMY 09/24/2020 LAPS ABD PRTM&OMENTUM DX W/WO SPEC BR/WA SPX Laparoscopy MASTOIDECTOMY,COMPLETE as child Mastoidectomy, left TONSILLECTOMY PRIMARY/SECONDARY <AGE 13 Tonsillectomy ALLERGIES [place] [Hydrocodone-Acetaminophen] MEDICATIONS atorvastatin (LIPITOR) 10 mg tablet Take 1 tablet by mouth daily at bedtime. For cholesterol. CPAP CPAP Supplies, All Necessary equipment including tubing and full mask ICD G47.33 lisinopril (ZESTRIL, PRINIVIL) 20 mg tablet Take 1 tablet by mouth once daily. ascorbic acid (VITAMIN C ORAL) Take 1 tablet by mouth once daily. elderberry fruit (ELDERBERRY ORAL) Take 2 Doses by mouth once daily. CPAP 30 day download for And please send chin strap Auto PAP @ 5-20 cm of water with humidification. Mask (per patient preference) optional chin strap (if indicated) , filters, tubing, humidifier andlifetime supplies. TURMERIC ORAL Take by mouth once daily. With curcumin Black Cohosh 40 mg tab Take 2 tablets by mouth once daily. Ferrous Sulfate (IRON, FERROUS SULFATE,) 325 mg (65 mg iron) tablet Take 650 mg by mouth daily withbreakfast. Cholecalciferol, Vitamin D3, (VITAMIN D-3) 2,000 unit Tab Take by mouth. CALCIUM CARBONATE/VITAMIN D2 (CALCIUM + VITAMIN D ORAL) Take by mouth twice daily. Fiber Cap Take 3 capsules by mouth once daily. multivitamins(DAILY MULTIVITAMIN TAB) Take one(1) tablet daily. doxycycline monohydrate 100 mg tablet Take 1 tablet by mouth twice daily for 7 days. FAMILY HISTORY Problem Relation Age of Onset Hypertension Mother Asthma Mother Diabetes Mother COPD Mother other (crohns [Other]) Mother Cancer Father NON HODGKINS LYMPHOMA Heart Father CHF Stroke Father age 82 Heart Sister CHF other (diabetes mellitus [Other]) Sister Hypertension Sister Pneumonia Sister Fibromyalgia Sister Kidney Disease Sister Pneumonia Brother other (Covid 19 sequelae) Brother No Known Problems Brother No Known Problems Brother Diabetes Maternal Grandmother Stroke Paternal Grandfather Tuberculosis Paternal Grandfather Social History Tobacco Use Smoking status: Never Smoker Smokeless tobacco: Never Used Substance Use Topics Alcohol use: No Drug use: No ROS Objective Blood pressure 160/76, pulse 80, temperature 37.8 C (100 F), resp. rate 21, weight 96.3 kg (212 lb 3.2 oz), SpO2 98 %. Physical Exam Constitutional: General: She is not in acute distress. Appearance: She is not toxic-appearing or diaphoretic. HENT: Head: Normocephalic and atraumatic. Cardiovascular: Rate and Rhythm: Normal rate and regular rhythm. Heart sounds: Normal heart sounds, S1 normal and S2 normal. Pulmonary: Effort: Pulmonary effort is normal. Breath sounds: Examination of the right-lower field reveals rhonchi. Examination of the left-lower field reveals rhonchi. Rhonchi present. No decreased breath sounds, wheezing or rales. Neurological: Mental Status: She is alert and oriented to person, place, and time. Gait: Gait is intact. ASSESSMENT/PLAN: 1. Sinobronchitis - ICD9: 473.9, 490, ICD10: J32.9, J40 (primary diagnosis) -hold atb rx, if s/s continue/worsenen fill and take atb. - Supportive care with plenty of fluids, rest, and analgesia prn. - Follow up in 3-5 days if symptoms persist or worsen. -If you experience chest pain/shortness of breath go to ER - DOXYCYCLINE MONOHYDRATE 100 MG TABLET 2. Rhonchi at both lung bases - ICD9: 786.7, ICD10: R09.89 xr negative - XR CHEST 2V FRONTAL/LAT IMPRESSION: No acute radiographic abnormality. Dictated by : BETTIE ZHANG MD 3. URI, acute - ICD9: 465.9, ICD10: J06.9 - Discussed viral etiology and rationale for treatment. - Symptomatic treatment with prn analgesia - Supportive care with fluids and rest - Follow up in 3-5 days if symptoms persist or sooner if worsening of symptoms - COVID WITH FLUA+B, ROUTINE Agrees to plan Freeman Martinez APRN.KYAW documented in this encounterThe [facility]06-08-2022 Instructions* Patient Instructions* Freeman Martinez APRN.KYAW - 08/14/2021 3:02 PM EDT How to Manage Common Symptoms Associated with COVID for Adults Fever- Fever is a temperature over 100.4 F and can occur when the body is fighting an infection. Tohelp treat a fever: Drink plenty of fluids and stay well hydrated. Eat small amounts of easy to digest food. Rest. Your body needs rest to recover, but getting up and moving around the house frequently is a good idea. You should try to continue doing your normal daily activities (bathing, toileting, grooming, cooking), though you will probably feel tired, and need to rest often. Avoid any heavy activity or exercise, as this will increase your body temperature. Dress in light clothing and stay covered in a light sheet. Keep the room temperature cool. Take a slightly warm (not cold or cool) bath, or apply damp washcloths to the forehead and wrists. Cough- Cough is a common symptom associated with COVID and can be bothersome. To help treat a cough: Stay well hydrated. Try warm water or tea with lemon and/or honey to help soothe the cough. Use a humidifier to add moisture to the air. Try a product with menthol, like a cough drop or a rub for your chest such as Vicks, which can helpreduce cough. Try cough drops. Avoid smoking and other strong odors or perfumes. Try breathing exercises to keep your lungs open and clear. Take a big deep breath through your noseand hold for 5 seconds before slowly releasing. Repeat frequently, while you are awake. Congestion- Runny nose or nasal congestion can occur with COVID. Treatment can help relieve symptoms: Try OTC nasal saline spray, or nasal saline rinse to relieve mucus congestion. Nasal strips can help keep nasal passages open, to increase airflow. Elevating your head with an extra pillow in bed can help reduce congestion. Using a humidifier can increase moisture in the air, and make breathing easier. Sore Throat- Another common symptom with COVID, can be managed at home by: Stay well hydrated. Gargle with salt water mix teaspoon salt with 1 cup of warm water and gargle. This helps to loosen mucus in the back of the throat and may reduce discomfort. Try ice chips, popsicles or lozenges to soothe the throat. Nausea/Vomiting/Diarrhea- These are common symptoms, and staying hydrated is most important. If you are nauseous or vomiting, start with small sips of water every 10-15 minutes and increase astolerated. You can try sucking an ice cube too. If tolerating, you can try pedialyte or Gatorade, or flat sprite or kris-sylvain. Start slowly and increase as you are able to. Instead of meals, try smaller, more frequent snacks. Try eating bland foods like crackers, toast, rice, and applesauce. Avoid spicy, greasy or fried foods and dairy containing foods. Even if you aren't feeling hungry due to lack of smell or taste, it is important to try to take in some food when you are able. After drinking and eating, rest in an upright position for up to two hours as needed to help decrease nauseous feelings. Try closing your eyes, avoid moving and watching TV. Avoid strong odors that can make you feel more nauseated. When to seek emergency medical attention Look for emergency warning signs for COVID-19. If having any of these symptoms, seek emergency medical care immediately: Trouble breathing Persistent pain or pressure in the chest New confusion Inability to wake or stay awake Bluish lips or face *This list is not all possible symptoms. Please call your medical provider for any other symptoms that are severe or concerning to you. documented in this encounterThe [facility]06-08-2022 History of Present illness Narrative* Kaitlin Lomeli RT(R) - 08/14/2021 2:20 PM EDT Radiology Service Progress Note PATIENT NAME: Azalea Mott DATE OF SERVICE: August 14, 2021 TIME: 2:22 PM PATIENT IDENTITY VERIFICATION COMPLETED USING TWO (2) IDENTIFIERS: Name and Date of confirmedby patient verbally. FALL SCREENING: Has the patient had 2 falls in the last year or 1 fall with injury or currently using an Ambulatory Assistive Device (Walker, Cane, Wheelchair, Crutches, etc.)? No PATIENT GENDER DATA: Female. status: : No status: NO. PATIENT RELEVANT IMPLANT DATA REVIEWED: Not Applicable RADIOLOGY DEPARTMENT: General X-ray: Exam(s) Completed: Chest X-Ray PERIPHERAL IV DATA: Not applicable SIGNED BY: RT Humberto(R) August 14, 2021 2:22 PM documented in this encounterThe [facility]03-18-2022 Instructions* Patient Instructions* Navdeep Ulloa MD - 05/24/2021 12:23 PM EDT Have you ever planned for future healthcare decisions with a power of senior attorney, living will, or advance directives? Yes. Have you shared those records with your doctor? No documented in this encounterThe [facility]03-18-2022 History of Present illness Narrative* Navdeep Ulloa MD - 05/24/2021 11:34 AM EDT This note was created using [employer]. Subjective Azalea Mott is a 71 year old female. She was doing well, and had no concerns. Her hypertension and lipids were controlled. She was benefiting from regular CPAP use. Joint pains resolved. Review of Systems Constitutional: Negative. Respiratory: Negative. Cardiovascular: Negative. Gastrointestinal: Negative. Genitourinary: Negative. Neurological: Negative. ACTIVE PROBLEM LIST Hearing Loss in Left Ear Hyperlipidemia Ldl Goal <100 Hypertension, Essential Siobhan On Cpap Obesity, Class I, Bmi 30-34.9 Kidney Insufficiency Current Outpatient Medications Medication Sig atorvastatin (LIPITOR) 10 mg tablet Take 1 tablet by mouth daily at bedtime. For cholesterol. CPAP CPAP Supplies, All Necessary equipment including tubing and full mask ICD G47.33 lisinopril (ZESTRIL, PRINIVIL) 20 mg tablet Take 1 tablet by mouth once daily. ascorbic acid (VITAMIN C ORAL) Take 1 tablet by mouth once daily. elderberry fruit (ELDERBERRY ORAL) Take 2 Doses by mouth once daily. CPAP 30 day download for And please send chin strap Auto PAP @ 5-20 cm of water with humidification. Mask (per patient preference) optional chin strap (if indicated) , filters, tubing, humidifier andlifetime supplies. TURMERIC ORAL Take by mouth once daily. With curcumin Black Cohosh 40 mg tab Take 2 tablets by mouth once daily. Ferrous Sulfate (IRON, FERROUS SULFATE,) 325 mg (65 mg iron) tablet Take 650 mg by mouth daily withbreakfast. Cholecalciferol, Vitamin D3, (VITAMIN D-3) 2,000 unit Tab Take by mouth. CALCIUM CARBONATE/VITAMIN D2 (CALCIUM + VITAMIN D ORAL) Take by mouth twice daily. Fiber Cap Take 3 capsules by mouth once daily. multivitamins(DAILY MULTIVITAMIN TAB) Take one(1) tablet daily. No current facility-administered medications for this visit. Objective BP 124/64 (BP Site: Left Arm, BP Position: Sitting) Pulse (P) 66 Temp (!) (P) 35.9 C (96.6 F) (Temporal) Resp (P) 16 Wt (P) 97.5 kg (215 lb) BMI (P) 33.08 kg/m Physical Exam Constitutional: General: She is not in acute distress. Cardiovascular: Rate and Rhythm: Occasional extrasystoles are present. Heart sounds: S1 normal and S2 normal. No murmur heard. No gallop. Pulmonary: Breath sounds: Normal breath sounds. Musculoskeletal: General: No tenderness. Right lower leg: No edema. Left lower leg: No edema. Neurological: General: No focal deficit present. Mental Status: She is alert. Hemoglobin A1C (%) Date Value 03/05/2021 5.6 10/19/2020 5.4 ) EKG RESULTS: sinus bradycardia and sinus arrhythmia, incomplete RBBB. No change from outside EKG. Assessment and Plan 1. Hypertension, essential - ICD9: 401.9, ICD10: I10 (primary diagnosis) - good control - Continue current medication(s) - Recommended regular aerobic exercise. - Goal of BP <130/80 2. Hyperlipidemia LDL goal <100 - ICD9: 272.4, ICD10: E78.5 - to be determined upon return of lab results - Continue current medication. - COMP METABOLIC PANEL - LIPID PANEL BASIC 3. SIOBHAN on CPAP - ICD9: 327.23, V46.8, ICD10: G47.33, Z99.89 Using and benefiting from CPAP use. 4. Multiple joint pain - ICD9: 719.49, ICD10: M25.50 Resolved. 5. Premature beats - ICD9: 427.60, ICD10: I49.49 Reviewed. - ECG COMPLETE Navdeep Ulloa MD documented in this encounterThe [facility]06-02-2016 History of Past illness Narrative* Problem Noted Date Resolved Date Primary osteoarthritis of right hip 08/09/2015 08/09/2015 Arthritis of right hip 08/09/2015 1 [place] of foot 08/17/2013 03/28/2016 Last Assessment & Plan: 3 weeks ago developed pain in the heel of the foot. Getting progressively worse, she felt some hardness and nodular swelling that is mostly below the skin, pain is 6/10, worse with any exertion, never tried corn cap etc. Thickened endometrium 12/05/2011 03/28/2016 Overview: 1.6cm on u/s Post-menopausal bleeding 11/21/2011 017 Dermatophytosis of foot 02/05/2006 03/07/20 15 Last Assessment & Plan: Having this for many years now, wants it treated for cosmetic reasons. She has no base,ine liver issues not on any prescription medications, Hereditary and idiopathic peripheral neuropathy 10/24/2020 documented as of this encounter (statuses as of 05/25/2021) [facility] History of Past illness Narrative* Problem Noted Date Resolved Date Primary osteoarthritis of right hip 08/09/2015 08/09/2015 Arthritis of right hip 08/09/2015 1 [place] of foot 08/17/2013 03/28/2016 Last Assessment & Plan: 3 weeks ago developed pain in the heel of the foot. Getting progressively worse, she felt some hardness and nodular swelling that is mostly below the skin, pain is 6/10, worse with any exertion, never tried corn cap etc. Thickened endometrium 12/05/2011 03/28/2016 Overview: 1.6cm on u/s Post-menopausal bleeding 11/21/2011 017 Dermatophytosis of foot 02/05/2006 03/07/20 15 Last Assessment & Plan: Having this for many years now, wants it treated for cosmetic reasons. She has no base,ine liver issues not on any prescription medications, Hereditary and idiopathic peripheral neuropathy 10/24/2020 documented as of this encounter (statuses as of 08/14/2021) [facility] History of Past illness Narrative* Problem Noted Date Resolved Date Primary osteoarthritis of right hip 08/09/2015 08/09/2015 Arthritis of right hip 08/09/2015 1 [place] of foot 08/17/2013 03/28/2016 Last Assessment & Plan: 3 weeks ago developed pain in the heel of the foot. Getting progressively worse, she felt some hardness and nodular swelling that is mostly below the skin, pain is 6/10, worse with any exertion, never tried corn cap etc. Thickened endometrium 12/05/2011 03/28/2016 Overview: 1.6cm on u/s Post-menopausal bleeding 11/21/2011 017 Dermatophytosis of foot 02/05/2006 03/07/20 15 Last Assessment & Plan: Having this for many years now, wants it treated for cosmetic reasons. She has no base,ine liver issues not on any prescription medications, Hereditary and idiopathic peripheral neuropathy 10/24/2020 documented as of this encounter (statuses as of 08/15/2021) [facility] History of Past illness Narrative* Problem Noted Date Resolved Date Primary osteoarthritis of right hip 08/09/2015 08/09/2015 Arthritis of right hip 08/09/2015 1 [place] of foot 08/17/2013 03/28/2016 Last Assessment & Plan: 3 weeks ago developed pain in the heel of the foot. Getting progressively worse, she felt some hardness and nodular swelling that is mostly below the skin, pain is 6/10, worse with any exertion, never tried corn cap etc. Thickened endometrium 12/05/2011 03/28/2016 Overview: 1.6cm on u/s Post-menopausal bleeding 11/21/2011 017 Dermatophytosis of foot 02/05/2006 03/07/20 15 Last Assessment & Plan: Having this for many years now, wants it treated for cosmetic reasons. She has no base,ine liver issues not on any prescription medications, Hereditary and idiopathic peripheral neuropathy 10/24/2020 documented as of this encounter (statuses as of 10/26/2021) [facility] History of Past illness Narrative* Problem Noted Date Resolved Date Primary osteoarthritis of right hip 08/09/2015 08/09/2015 Arthritis of right hip 08/09/2015 1 [place] of foot 08/17/2013 03/28/2016 Last Assessment & Plan: 3 weeks ago developed pain in the heel of the foot. Getting progressively worse, she felt some hardness and nodular swelling that is mostly below the skin, pain is 6/10, worse with any exertion, never tried corn cap etc. Thickened endometrium 12/05/2011 03/28/2016 Overview: 1.6cm on u/s Post-menopausal bleeding 11/21/2011 017 Dermatophytosis of foot 02/05/2006 03/07/20 15 Last Assessment & Plan: Having this for many years now, wants it treated for cosmetic reasons. She has no base,ine liver issues not on any prescription medications, Hereditary and idiopathic peripheral neuropathy 10/24/2020 documented as of this encounter (statuses as of 01/24/2022) [facility] History of Past illness Narrative* Problem Noted Date Resolved Date Primary osteoarthritis of right hip 08/09/2015 08/09/2015 Arthritis of right hip 08/09/2015 [place] of foot 08/17/2013 03/28/2016 Last Assessment & Plan: 3 weeks ago developed pain in the heel of the foot. Getting progressively worse, she felt some hardness and nodular swelling that is mostly below the skin, pain is 6/10, worse with any exertion, never tried corn cap etc. Thickened endometrium 12/05/2011 03/28/2016 Overview: 1.6cm on u/s Post-menopausal bleeding 11/21/2011 017 Dermatophytosis of foot 02/05/2006 03/07/20 Last Assessment & Plan: Having this for many years now, wants it treated for cosmetic reasons. She has no base,ine liver issues not on any prescription medications, Hereditary and idiopathic peripheral neuropathy 10/24/2020 documented as of this encounter (statuses as of 07/18/2022) [facility] History of Past illness Narrative* Problem Noted Date Diagnosed Date Resolved Date Primary osteoarthritis of right hip 08/09/2015 08/09/2015 Arthritis of right hip 08/09/201510/24 [place] of foot 08/17/2013 03/28/2016 Last Assessment & Plan: 3 weeks ago developed pain in the heel of the foot. Getting progressively worse, she felt some hardness and nodular swelling that is mostly below the skin, pain is 6/10, worse with any exertion, never tried corn cap etc. Thickened endometrium 12/05/20112016 Overview: 1.6cm on u/s Post-menopausal bleeding 11/21/2011 Dermatophytosis of foot 02/05/200602/08 Last Assessment & Plan: Having this for many years now, wants it treated for cosmetic reasons. She has no base,ine liver issues not on any prescription medications, Hereditary and idiopathic pe ripheral neuropathy 10/24/2020 documented as of this encounter (statuses as of 10/02/2022) [facility] History of Past illness Narrative* Problem Noted Date Diagnosed Date Resolved Date Primary osteoarthritis of right hip 08/09/2015 08/09/2015 Arthritis of right hip 08/09/201510/24 [place] of foot 08/17/2013 03/28/2016 Last Assessment & Plan: 3 weeks ago developed pain in the heel of the foot. Getting progressively worse, she felt some hardness and nodular swelling that is mostly below the skin, pain is 6/10, worse with any exertion, never tried corn cap etc. Thickened endometrium 12/05/20112016 Overview: 1.6cm on u/s Post-menopausal bleeding 11/21/2011 Dermatophytosis of foot 02/05/200602/08 Last Assessment & Plan: Having this for many years now, wants it treated for cosmetic reasons. She has no base,ine liver issues not on any prescription medications, Hereditary and idiopathic pe ripheral neuropathy 10/24/2020 documented as of this encounter (statuses as of 01/10/2023) [facility] History of Past illness Narrative* Problem Noted Date Diagnosed Date Resolved Date Primary osteoarthritis of right hip 08/09/2015 08/09/2015 Arthritis of right hip 08/09/201510/24 [place] of foot 08/17/2013 03/28/2016 Last Assessment & Plan: 3 weeks ago developed pain in the heel of the foot. Getting progressively worse, she felt some hardness and nodular swelling that is mostly below the skin, pain is 6/10, worse with any exertion, never tried corn cap etc. Thickened endometrium 12/05/20112016 Overview: 1.6cm on u/s Post-menopausal bleeding 11/21/2011 Dermatophytosis of foot 02/05/200602/08 Last Assessment & Plan: Having this for many years now, wants it treated for cosmetic reasons. She has no base,ine liver issues not on any prescription medications, Hereditary and idiopathic pe ripheral neuropathy 10/24/2020 documented as of this encounter (statuses as of 01/26/2023) [facility] History of Past illness Narrative* Problem Noted Date Diagnosed Date Resolved Date Primary osteoarthritis of right hip 08/09/2015 08/09/2015 Arthritis of right hip 08/09/201510/24 [place] of foot 08/17/2013 03/28/2016 Last Assessment & Plan: 3 weeks ago developed pain in the heel of the foot. Getting progressively worse, she felt some hardness and nodular swelling that is mostly below the skin, pain is 6/10, worse with any exertion, never tried corn cap etc. Thickened endometrium 12/05/20112016 Overview: 1.6cm on u/s Post-menopausal bleeding 11/21/2011 Dermatophytosis of foot 02/05/200602/08 Last Assessment & Plan: Having this for many years now, wants it treated for cosmetic reasons. She has no base,ine liver issues not on any prescription medications, Hereditary and idiopathic pe ripheral neuropathy 10/24/2020 documented as of this encounter (statuses as of 02/21/2023) [facility] History of Past illness Narrative* Problem Noted Date Diagnosed Date Resolved Date Primary osteoarthritis of right hip 08/09/2015 08/09/2015 Arthritis of right hip 08/09/201510/24 [place] of foot 08/17/2013 03/28/2016 Last Assessment & Plan: 3 weeks ago developed pain in the heel of the foot. Getting progressively worse, she felt some hardness and nodular swelling that is mostly below the skin, pain is 6/10, worse with any exertion, never tried corn cap etc. Thickened endometrium 12/05/20112016 Overview: 1.6cm on u/s Post-menopausal bleeding 11/21/2011 Dermatophytosis of foot 02/05/200602/08 Last Assessment & Plan: Having this for many years now, wants it treated for cosmetic reasons. She has no base,ine liver issues not on any prescription medications, Hereditary and idiopathic pe ripheral neuropathy 10/24/2020 documented as of this encounter (statuses as of 04/23/2023) [facility] Diagnosis Hypertension, essential- Primary Unspecified essential hypertension Hyperlipidemia LDL goal <100 Other and unspecified hyperlipidemia SIOBHAN on CPAP Obstructive sleep apnea (adult) (pediatric) Multiple joint pain Pain in joint, multiple sites Premature beats Premature beats, unspecified [facility] Sinobronchitis- Primary Unspecified sinusitis (chronic) Rhonchi at both lung bases URI, acute Acute upper respiratory infections of unspecified site [facility] Diagnosis Hypertension, essential Unspecified essential hypertension [facility] Diagnosis Medicare annual wellness visit, subsequent- Primary Routine general medical examination at a health care facility Encounter for screening mammogram for breast cancer [facility] Diagnosis Hypertension, essential- Primary Unspecified essential hypertension Dry skin Other specified disease of sebaceous glands [facility] Diagnosis Encounter for screening mammogram for breast cancer [facility] Diagnosis Medicare annual wellness visit, subsequent- Primary Routine general medical examination at a health care facility Hypercalcemia Encounter for screening mammogram for breast cancer [facility] Diagnosis Encounter for screening mammogram for breast cancer [facility] Diagnosis Impacted cerumen of right ear- Primary Impacted cerumen [facility] Diagnosis URI, acute- Primary Acute upper respiratory infections of unspecified site Acute cough [facility] Diagnosis Bronchitis with bronchospasm- Primary Bronchitis, not specified as acute or chronic [facility] Diagnosis Bronchitis with bronchospasm Bronchitis, not specified as acute or chronic [facility] Diagnosis Venous insufficiency- Primary Unspecified venous (peripheral) insufficiency Hypertension, essential Unspecified essential hypertension Fatigue, unspecified type Chronic kidney insufficiency, stage 3 (moderate) (HCC) [facility] Hypertension, essential- Primary Unspecified essential hypertension Venous insufficiency Unspecified venous (peripheral) insufficiency Chronic kidney insufficiency, stage 3 (moderate) (HCC) Impaired fasting glucose Hyperlipidemia LDL goal <100 Other and unspecified hyperlipidemia [facility] Diagnosis SIOBHAN (obstructive sleep apnea) Obstructive sleep apnea (adult) (pediatric) [facility] Diagnosis Neoplasm of uncertain behavior of skin of back- Primary Neoplasm of uncertain behavior of skin Seborrheic keratosis Other seborrheic keratosis [facility] Diagnosis Medicare annual wellness visit, subsequent- Primary Routine general medical examination at a general [facility] facility Right hip pain Pain in joint, pelvic region and thigh Hypertension, essential Unspecified essential hypertension Impaired fasting glucose Hyperlipidemia LDL goal <100 Other and unspecified hyperlipidemia Chronic kidney insufficiency, stage 3 (moderate) (HCC) SIOBHAN on CPAP Obstructive sleep apnea (adult) (pediatric) Encounter for screening mammogram for breast cancer Encounter for screening examination for other mental health and behavioral disorders Screening for depression [facility] Diagnosis Right hip pain Pain in joint, pelvic region and thigh [facility] Diagnosis Primary osteoarthritis of right hip Primary localized osteoarthrosis, pelvic region and thigh [facility] Diagnosis Encounter for screening mammogram for breast cancer [facility] Diagnosis Primary osteoarthritis of right hip- Primary Primary localized osteoarthrosis, pelvic region and thigh [facility] Diagnosis Primary osteoarthritis of right hip- Primary Primary localized osteoarthrosis, pelvic region and thigh [facility] Diagnosis Dysuria- Primary [facility] Diagnosis Dysuria- Primary [facility] Diagnosis Primary osteoarthritis of right hip- Primary Primary localized osteoarthrosis, pelvic region and thigh [facility] Diagnosis Arthritis of right hip- Primary [facility] Diagnosis Primary osteoarthritis of right hip- Primary Primary localized osteoarthrosis, pelvic region and thigh Preoperative examination Preoperative examination, unspecified Impaired fasting glucose Primary osteoarthritis of right hip Primary localized osteoarthrosis, pelvic region and thigh [facility] Diagnosis Primary osteoarthritis of right hip- Primary Primary localized osteoarthrosis, pelvic region and thigh Primary osteoarthritis of right hip Primary localized osteoarthrosis, pelvic region and thigh [facility] Diagnosis Primary osteoarthritis of right hip Primary localized osteoarthrosis, pelvic region and thigh Primary osteoarthritis of right hip Primary localized osteoarthrosis, pelvic region and thigh [facility] Diagnosis Hypertension, essential Unspecified essential hypertension Venous insufficiency Unspecified venous (peripheral) insufficiency Primary osteoarthritis of right hip Primary localized osteoarthrosis, pelvic region and thigh [facility] Diagnosis Pre-op evaluation- Primary Preoperative examination, unspecified Hypertension, essential Unspecified essential hypertension SIOBHAN on CPAP Obstructive sleep apnea (adult) (pediatric) Hyperlipidemia LDL goal <100 Other and unspecified hyperlipidemia Chronic kidney insufficiency, stage 3 (moderate) ([facility]) Obesity, Class I, BMI 30-34.9 Obesity, unspecified Venous insufficiency Unspecified venous (peripheral) insufficiency Preop cardiovascular exam- Primary Pre-operative cardiovascular examination Primary osteoarthritis of right hip Primary localized osteoarthrosis, pelvic region and thigh * Assessment & Plan Note - Stephon Maurer APRN.CNP - 06/07/2024 2:19 PM EDT Associated Problem(s): Obesity, Class I, BMI 30-34.9 Assessment: Body mass index is 34.94 kg/m . * Assessment & Plan Note - Stephon Maurer APRN.CNP - 06/07/2024 1:24 PM EDT Associated Problem(s): Venous insufficiency Assessment: int swelling , elevation helps sometimes. * Assessment & Plan Note - Stephon Maurer APRN.CNP - 06/07/2024 1:23 PM EDT Associated Problem(s): Hyperlipidemia LDL goal <100 Assessment: Compliant on statin therapy. Encouraged lifestyle modifications. Body mass index is 34.94 kg/m . * Assessment & Plan Note - Stephon Maurer APRN.CNP - 06/07/2024 1:23 PM EDT Associated Problem(s): Hypertension, essential Assessment: Stable and compliant with medications. Follows with PCP. Last 3 Encounter BP Readings: Date: BP: 06/07/2024 132/79 03/31/2024 136/72 01/27/2024 124/78 * Assessment & Plan Note - Stephon Maurer APRN.CNP - 06/07/2024 1:01 PM EDT Associated Problem(s): Chronic kidney insufficiency, stage 3 (moderate) ([facility]) Assessment: Denies any new or worsening symptoms. Follows with PCP. BUN Date Value Ref Range Status 01/18/2024 22 (H) 7 - 21 mg/dL Final Creatinine Date Value Ref Range Status 01/18/2024 1.03 (H) 0.58 - 0.96 mg/dL Final 08/24/2023 1.05 (H) 0.58 - 0.96 mg/dL Final 03/30/2023 0.99 (H) 0.58 - 0.96 mg/dL Final 01/22/2023 1.08 (H) 0.58 - 0.96 mg/dL Final * Assessment & Plan Note - Stephon Maurer APRN.CNP - 06/07/2024 1:01 PM EDT Associated Problem(s): SIOBHAN on CPAP Assessment: Compliant on device. Advised to bring day of surgery. [facility] Diagnosis Pre-op evaluation- Primary Preoperative examination, unspecified Hypertension, essential Unspecified essential hypertension SIOBHAN on CPAP Obstructive sleep apnea (adult) (pediatric) Hyperlipidemia LDL goal <100 Other and unspecified hyperlipidemia Chronic kidney insufficiency, stage 3 (moderate) (HCC) Obesity, Class I, BMI 30-34.9 Obesity, unspecified Venous insufficiency Unspecified venous (peripheral) insufficiency Primary osteoarthritis of right hip Primary localized osteoarthrosis, pelvic region and thigh Preoperative examination Preoperative examination, unspecified Preop cardiovascular exam- Primary Pre-operative cardiovascular examination Primary osteoarthritis of right hip Primary localized osteoarthrosis, pelvic region and thigh [facility] Diagnosis Pre-op evaluation- Primary Preoperative examination, unspecified Hypertension, essential Unspecified essential hypertension SIOBHAN on CPAP Obstructive sleep apnea (adult) (pediatric) Hyperlipidemia LDL goal <100 Other and unspecified hyperlipidemia Chronic kidney insufficiency, stage 3 (moderate) (HCC) Obesity, Class I, BMI 30-34.9 Obesity, unspecified Venous insufficiency Unspecified venous (peripheral) insufficiency Preop cardiovascular exam- Primary Pre-operative cardiovascular examination Atrial flutter, unspecified type (HCC) Paroxysmal A-fib (HCC) Atrial fibrillation Abnormal electrocardiogram (ECG) (EKG) Primary osteoarthritis of right hip Primary localized osteoarthrosis, pelvic region and thigh documented in this encounter [facility]* Diagnosis Pre-op evaluation- Primary Preoperative examination, unspecified Hypertension, essential Unspecified essential hypertension SIOBHAN on CPAP Obstructive sleep apnea (adult) (pediatric) Hyperlipidemia LDL goal <100 Other and unspecified hyperlipidemia Chronic kidney insufficiency, stage 3 (moderate) (HCC) Obesity, Class I, BMI 30-34.9 Obesity, unspecified Venous insufficiency Unspecified venous (peripheral) insufficiency Atrial flutter, unspecified type (HCC) Paroxysmal A-fib (HCC) Atrial fibrillation Primary osteoarthritis of right hip Primary localized osteoarthrosis, pelvic region and thigh [facility] Diagnosis Pre-op evaluation- Primary Preoperative examination, unspecified Hypertension, essential Unspecified essential hypertension SIOBHAN on CPAP Obstructive sleep apnea (adult) (pediatric) Hyperlipidemia LDL goal <100 Other and unspecified hyperlipidemia Chronic kidney insufficiency, stage 3 (moderate) (HCC) Obesity, Class I, BMI 30-34.9 Obesity, unspecified Venous insufficiency Unspecified venous (peripheral) insufficiency Atrial flutter, unspecified type (HCC) Abnormal electrocardiogram (ECG) (EKG) Primary osteoarthritis of right hip Primary localized osteoarthrosis, pelvic region and thigh [facility] Diagnosis Pre-op evaluation- Primary Preoperative examination, unspecified Hypertension, essential Unspecified essential hypertension SIOBHAN on CPAP Obstructive sleep apnea (adult) (pediatric) Hyperlipidemia LDL goal <100 Other and unspecified hyperlipidemia Chronic kidney insufficiency, stage 3 (moderate) (HCC) Obesity, Class I, BMI 30-34.9 Obesity, unspecified Venous insufficiency Unspecified venous (peripheral) insufficiency Atrial flutter, unspecified type (HCC) Heart valve disease Endocarditis, valve unspecified, unspecified cause Mild pulmonary hypertension (HCC) 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 Hip joint replacement by other means [facility] Diagnosis Pre-op evaluation- Primary Preoperative examination, unspecified Hypertension, essential Unspecified essential hypertension SIOBHAN on CPAP Obstructive sleep apnea (adult) (pediatric) Hyperlipidemia LDL goal <100 Other and unspecified hyperlipidemia Chronic kidney insufficiency, stage 3 (moderate) (HCC) Obesity, Class I, BMI 30-34.9 Obesity, unspecified Venous insufficiency Unspecified venous (peripheral) insufficiency Atrial flutter, unspecified type (HCC) Heart valve disease Endocarditis, valve unspecified, unspecified cause Mild pulmonary hypertension (HCC) 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 Hip joint replacement by other means [facility] Diagnosis Pre-op evaluation- Primary Preoperative examination, unspecified Hypertension, essential Unspecified essential hypertension SIOBHAN on CPAP Obstructive sleep apnea (adult) (pediatric) Hyperlipidemia LDL goal <100 Other and unspecified hyperlipidemia Chronic kidney insufficiency, stage 3 (moderate) (HCC) Obesity, Class I, BMI 30-34.9 Obesity, unspecified Venous insufficiency Unspecified venous (peripheral) insufficiency Atrial flutter, unspecified type (HCC) Heart valve disease Endocarditis, valve unspecified, unspecified cause Mild pulmonary hypertension (HCC) 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 Hip joint replacement by other means [facility] Pre-[facility] evaluation- Primary Preoperative examination, unspecified Hypertension, essential Unspecified essential hypertension SIOBHAN on CPAP Obstructive sleep apnea (adult) (pediatric) Hyperlipidemia LDL goal <100 Other and unspecified hyperlipidemia Chronic kidney insufficiency, stage 3 (moderate) (HCC) Obesity, Class I, BMI 30-34.9 Obesity, unspecified Venous insufficiency Unspecified venous (peripheral) insufficiency Atrial flutter, unspecified type (HCC) Heart valve disease Endocarditis, valve unspecified, unspecified cause Mild pulmonary hypertension (HCC) Other chronic pulmonary heart diseases Venous insufficiency Unspecified venous (peripheral) insufficiency [facility] Diagnosis Pre-op evaluation- Primary Preoperative examination, unspecified Hypertension, essential Unspecified essential hypertension SIOBHAN on CPAP Obstructive sleep apnea (adult) (pediatric) Hyperlipidemia LDL goal <100 Other and unspecified hyperlipidemia Chronic kidney insufficiency, stage 3 (moderate) (HCC) Obesity, Class I, BMI 30-34.9 Obesity, unspecified Venous insufficiency Unspecified venous (peripheral) insufficiency Atrial flutter, unspecified type (HCC) Heart valve disease Endocarditis, valve unspecified, unspecified cause Mild pulmonary hypertension (HCC) 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 Hip joint replacement by other means Leg swelling Swelling of limb documented in this encounter [facility] Plan of care note* Visit Details Visit Type -PT SOC Discipline -Physical Therapy Problems Problem Description Start Date Status Goals Interve ntions Medication Education Disciplines: Skilled Services 07/23/2024 Active 1 goal linked to scheduled/document ed intervention 1 goal intervention scheduled/document ed in this visit Sepsis Disciplines: Skilled Services 07/23/2024 Active 1 goal linked to scheduled/document ed intervention 1 goal intervention scheduled/document ed in this visit Physician Specific Parameters Disciplines: Skilled Services 07/23/2024 Active 1 goal linked to scheduled/document ed intervention 1 goal intervention scheduled/document ed in this visit Risk for Falls Disciplines: Skilled Services 07/23/2024 Active 1 goal linked to scheduled/document ed intervention 1 goal intervention scheduled/document ed in this visit Pain Disciplines: Skilled Services 07/23/2024 Active 1 goal linked to scheduled/document ed intervention 1 goal intervention scheduled/document ed in this visit High Risk Medications Disciplines: Skilled Services 07/23/2024 Active 1 goal linked to scheduled/document ed intervention 1 goal intervention scheduled/document ed in this visit Discharge Disciplines: Skilled Services 07/23/2024 Active 1 goal linked to scheduled/document ed intervention 1 goal intervention scheduled/document ed in this visit PT Impaired muscle performance and/or ROM Disciplines: PT 07/23/2024 Active 1 goal linked to scheduled/document ed intervention 1 goal intervention scheduled/document ed in this visit PT Impaired mobility Disciplines: PT 07/23/2024 Active 1 goal linked to scheduled/document ed intervention 1 goal intervention scheduled/document ed in this visit PT Impaired gait Disciplines: PT 07/23/2024 Active 1 goal linked to scheduled/document ed intervention 1 goal intervention scheduled/document ed in this visit PT Impaired balance Disciplines: PT 07/23/2024 Active 1 goal linked to scheduled/document ed intervention 1 goal intervention scheduled/document ed in this visit PT Orthopedic Condition Disciplines: PT 07/23/2024 Active 1 goal linked to scheduled/document ed intervention 4 goal interventions scheduled/document ed in this visit PT Learning Assessment Disciplines: PT 07/23/2024 Active 1 goal linked to scheduled/document ed intervention 1 goal intervention scheduled/document ed in this visit Goals Goal Associated Problem Outcome Goal Met? Visit Notes Patient/caregiver will demonstrate ability to obtain, store, identify and administer ordered medications, keep accurate medication list in home, and adhere to medication schedule Description: Patient/caregiver will demonstrate ability to obtain, store, identify and administer ordered medications, keep accurate medication list in home, and adhere to medication schedule by 08/13/24. Medication Education No Patient/caregiver will be able to identify and report symptoms of sepsis Description: Patient/caregiver will be able to identify signs/symptoms of sepsis infection and will verbalize actions to take if suspected by 08/13/24. Sepsis No Patient to maintain parameters within physician-specified ranges throughout certification period Physician Specific Parameters No Manage Risk for falls Description: Patient/caregiver will verbalize knowledge of individualized fall prevention strategies by 08/13/24. Risk for Falls No Manage Pain Description: Patient/caregiver will verbalize knowledge and understanding of appropriate techniques to control pain, including non-pharmacological techniques. Patient will verbalize or demonstrate an acceptable level of pain as evidenced by a pain score of 0-2/10 and improvement in ability to perform activities of daily living to be achieved by 08/13/24. Pain No Patient/caregiver will teach back high risk medication side effect and precaution education Description: STG Patient/caregiver will verbalize understanding of high risk medication side effects and precautions to be achieved by 08/06/24. LTG Patient/caregiver will continue to verbalize understanding of high risk medication side effects and precautions throughout certification period. High Risk Medications No Manage discharge planning Description: Patient/caregiver will verbalize understanding of ongoing discharge plan provided related to disease management, arrangements for outpatient and/or community services, obtaining medications, supplies, and DME, as needed throughout certification period. Discharge No Improved Muscle Performance and/or ROM Description: LTG: Patient will demonstrate improved muscle performance to meet functional goals as evidenced by ability to tolerate 8 mins of standing activity, to be achieved by 08/13/24. LTG: Patient and/or caregiver will verbalize/demonstrate independence with home exercise program, to improve functional mobility, to be achieved by 08/13/24. PT Impaired muscle performance and/or ROM No Improved Transfers Description: LTG: Patient will demonstrate safe transfers to/from bed, chair and toilet independently with AD, to be achieved by 08/13/24. PT Impaired mobility No Improved Gait Description: LTG: Patient will demonstrate improved gait ability as evidenced by ambulation 200 feet with single point cane independently, to return to safe household ambulation, in order to reach car in the driveway, to be achieved by 08/13/24. PT Impaired gait No Improved Balance Description: LTG: Patient will demonstrate improved standing balance to meet functional goals as evidenced by no falls during home P.T. to be achieved by 08/13/24. PT Impaired balance No Manage Orthopedic Condition Description: Improve patient and/or caregiver understanding of post surgical and/or non-surgical orthopedic intervention management as evidenced by patient and/or caregiver able to verbalize, demonstrate, and teach back instruction, to be achieved by 08/13/24. PT Orthopedic Condition No Demonstrate understanding of education Description: Patient and/or caregiver will understand educational instruction to be achieved by 08/13/24. PT Learning Assessment No Interventions Intervention Associated Problem/Goal Status Variance Visit Notes Medication Education Description: Evaluate/instruct patient/caregiver on obtaining, storing, identifying and administering ordered medications as well as keeping accurate medication list in the home and adhereing to medication schedule Problem:Medication Education Goal:Patient/caregive r will demonstrate ability to obtain, store, identify and administer ordered medications, keep accurate medication list in home, and adhere to medication schedule Completed Patient instructed on importance of keeping accurate medication list in home. Risk of Sepsis Description: Patient is at risk for sepsis. Monitor closely for s/s of sepsis. Problem:Sepsis Goal:Patient/caregive r will be able to identify and report symptoms of sepsis Completed SPO2 Description: Notify Dr. Naidu if pulse ox is <92% at rest. Problem:Physician Specific Parameters Goal:Patient to maintain parameters within physician-specified ranges throughout certification period Completed Instruct on individual fall risk factors and strategies to prevent falls and injuries caused by falls. Problem:Risk for Falls Goal:Manage Risk for falls Completed PT: Patient instructed on Managing Impaired Functional Mobility: Use assistive device(s): front wheeled walker Managing Pain Instruct on pain and instruct on strategies to control pain Problem:Pain Goal:Manage Pain Completed patient instructed on techniques to control pain including Non-Pharmacological measures; rest, positioning/elevation and mobility/therapeutic exercise. Antiplatelet- educated on high risk medication Problem:High Risk Medications Goal:Patient/caregive r will teach back high risk medication side effect and precaution education Completed patient educated on taking medication(s) as prescribed by provider. Do not stop medication or alter doses without speaking with your provider. Discuss medication effectiveness or side effect concerns with your provider and home care team. Discuss all medications you are taking, even [id number] medicines, with your provider and pharmacist since many drugs can interact with antiplatelet medications. If you forget to take a dose, DO NOT take a double dose. Take the missed dose as soon as possible on the same day. DO NOT take a double dose the next day to make up for the missed dose. Watch for signs of abnormal or excessive bleeding and bruising (refer to Bleeding Precautions education). Call your health care provider right away if you suspect something is wrong. Instruct on ongoing discharge plan Problem:Discharge Goal:Manage discharge planning Completed Ongoing Discharge plan: Discharge plan discussed with patient including frequency and duration for home PT and plan for transition to: caregiver assistance. Physical Therapy Therapeutic Exercises Problem:PT Impaired muscle performance and/or ROM Goal:Improved Muscle Performance and/or ROM Completed Developed, implemented, and instructed patient and/or caregiver on strengthening exercises: ambulation every hour awake for a total of atleast 10 times a day to tolerance. Instructed patient and/or caregiver in HEP and progressed HEP to include: increased distance and time ambulation as tolerated. . Instructed patient and/or caregiver to perform HEP hourly Physical Therapy Transfer Training Problem:PT Impaired mobility Goal:Improved Transfers Completed Transfer training and instruction to patient on safe transfers to and from chair and toilet with supervision and verbal cues for sequence. Physical Therapy Gait Training Problem:PT Impaired gait Goal:Improved Gait Completed Gait training and instruction to patient on safe ambulation with front wheeled walker for 50 feet with supervision, with verbal cues for corrections of gait deviations including sequence. Physical Therapy Balance Training Problem:PT Impaired balance Goal:Improved Balance Completed Developed, implemented, and instructed patient on standing balance exercises including ambulation with fww. Instruct on orthopedic precautions and weight bearing restrictions Description: Orthopedic precautions including right posterior hip: no hip flexion > 90 degrees, no adduction and no IR rotation of involved extermity. Weight bearing restrictions include: WBAT of involved extremity. Problem:PT Orthopedic Condition Goal:Manage Orthopedic Condition Completed patient instructed on orthopedic precautions and weight bearing restrictions. Instruct on management of edema Problem:PT Orthopedic Condition Goal:Manage Orthopedic Condition Completed Instruct patient on management of edema including elevation of bilat LE above the level of the heart. Physical therapy to perform surgical incision/wound management Description: If no drainage is present, leave open to air; if drainage is present, cover with clean dressing and contact provider and PT housing case manager. Problem:PT Orthopedic Condition Goal:Manage Orthopedic Condition Completed Intervention completed this date. Instruct on self-management of post surgical and/or non-surgical orthopedic intervention Problem:PT Orthopedic Condition Goal:Manage Orthopedic Condition Completed patient instructed on managagement of orthopedic condition. Instruct and educate on knowledge deficits Problem:PT Learning Assessment Goal:Demonstrate understanding of education Completed patient verbalize and/or demonstrate understanding of physical therapy education including fall prevention strategies, home safety, functional activity and home exercise program. Education methods include: verbal cues. Further education required to improve knowledge and compliance with orthopedic condition management, weight bearing precautions, surgical precautions, pain management, fall prevention strategies, home safety, functional activity and home exercise program. [facility] Visit Details Visit Type -OT EVAL Discipline -Occupational Therapy Problems Problem Description Start Date Status Goals Interve ntions Medication Education Disciplines: Skilled Services 07/23/2024 Active 1 goal linked to scheduled/documen arnel intervention 1 goal intervention scheduled/document ed in this visit Sepsis Disciplines: Skilled Services 07/23/2024 Active 1 goal linked to scheduled/documen arnel intervention 1 goal intervention scheduled/document ed in this visit OT Referral Disciplines: Skilled Services 07/23/2024 Resolved on 07/25/2024 1 goal linked to scheduled/documen arnel intervention 1 goal intervention scheduled/document ed in this visit Physician Specific Parameters Disciplines: Skilled Services 07/23/2024 Active 1 goal linked to scheduled/documen arnel intervention 1 goal intervention scheduled/document ed in this visit Risk for Falls Disciplines: Skilled Services 07/23/2024 Active 1 goal linked to scheduled/documen arnel intervention 1 goal intervention scheduled/document ed in this visit Pain Disciplines: Skilled Services 07/23/2024 Active 1 goal linked to scheduled/documen arnel intervention 1 goal intervention scheduled/document ed in this visit Discharge Disciplines: Skilled Services 07/23/2024 Active 1 goal linked to scheduled/documen arnel intervention 1 goal intervention scheduled/document ed in this visit OT Learning Assessment Disciplines: OT 07/25/2024 Resolved on 07/25/2024 1 goal linked to scheduled/documen arnel intervention 1 goal intervention scheduled/document ed in this visit OT ADLs/IADLs Disciplines: OT 07/25/2024 Resolved on 07/25/2024 1 goal linked to scheduled/documen arnel intervention 1 goal intervention scheduled/document ed in this visit OT Functional Transfers Disciplines: OT 07/25/2024 Resolved on 07/25/2024 1 goal linked to scheduled/documen arnel intervention 1 goal intervention scheduled/document ed in this visit Goals Goal Associated Problem Outcome Goal Met? Visit Notes Patient/caregiver will demonstrate ability to obtain, store, identify and administer ordered medications, keep accurate medication list in home, and adhere to medication schedule Description: Patient/caregiver will demonstrate ability to obtain, store, identify and administer ordered medications, keep accurate medication list in home, and adhere to medication schedule by 08/13/24. Medication Education No Patient/caregiver will be able to identify and report symptoms of sepsis Description: Patient/caregiver will be able to identify signs/symptoms of sepsis infection and will verbalize actions to take if suspected by 08/13/24. Sepsis No Patient will be referred to additional discipline as needed OT Referral Completed Yes Patient to maintain parameters within physician-specified ranges throughout certification period Physician Specific Parameters No Manage Risk for falls Description: Patient/caregiver will verbalize knowledge of individualized fall prevention strategies by 08/13/24. Risk for Falls No Manage Pain Description: Patient/caregiver will verbalize knowledge and understanding of appropriate techniques to control pain, including non-pharmacological techniques. Patient will verbalize or demonstrate an acceptable level of pain as evidenced by a pain score of 0-2/10 and improvement in ability to perform activities of daily living to be achieved by 08/13/24. Pain No Manage discharge planning Description: Patient/caregiver will verbalize understanding of ongoing discharge plan provided related to disease management, arrangements for outpatient and/or community services, obtaining medications, supplies, and DME, as needed throughout certification period. Discharge No Demonstrate understanding of education Description: Patient and/or caregiver will understand educational instruction to be achieved by 07/25/24 OT Learning Assessment Completed Yes goal met Improved ADLs/IADLs performance Description: patient will verbalize understanding of instructions and demonstrate improved performance of feeding, grooming, upper body dressing, lower body dressing, bathing and toileting to independence as evidenced by improved Rory ADL Index score to at least 90/100 to be achieved by 07/25/24. OT ADLs/IADLs Completed Yes met Improved Functional Transfers Description: patient will demonstrate safe transfers to/from toilet and shower/tub with independent assistance and no verbal cues with use of DME to be achieved by 07/25/24. OT Functional Transfers Completed Yes goal met Interventions Intervention Associated Problem/Goal Status Variance Visit Notes Medication Education Description: Evaluate/instruct patient/caregiver on obtaining, storing, identifying and administering ordered medications as well as keeping accurate medication list in the home and adhereing to medication schedule Problem:Medication Education Goal:Patient/caregive r will demonstrate ability to obtain, store, identify and administer ordered medications, keep accurate medication list in home, and adhere to medication schedule Completed Patient and Caregiver instructed on importance of keeping accurate medication list in home and adhering to medication schedule. Risk of Sepsis Description: Patient is at risk for sepsis. Monitor closely for s/s of sepsis. Problem:Sepsis Goal:Patient/caregive r will be able to identify and report symptoms of sepsis Completed OT evaluation and treatment Description: Evaluate and treat for the assessment of functional deficits and establishment of appropriate interventions and education to address: I/ADL training, functional transfers, DME/adaptive equipment recommendations and safety awareness. Problem:OT Referral Goal:Patient will be referred to additional discipline as needed Completed SPO2 Description: Notify Dr. Naidu if pulse ox is <92% at rest. Problem:Physician Specific Parameters Goal:Patient to maintain parameters within physician-specified ranges throughout certification period Completed Instruct on individual fall risk factors and strategies to prevent falls and injuries caused by falls. Problem:Risk for Falls Goal:Manage Risk for falls Completed OT: Patient and Caregiver instructed on Eliminating Environmental Hazards: Keep pathways clear, Keep rooms and walkways well lit and Keep frequently used items within reach Instruct on pain and instruct on strategies to control pain Problem:Pain Goal:Manage Pain Completed patient and caregiver instructed on techniques to control pain including Pharmacological measures. Instruct on ongoing discharge plan Problem:Discharge Goal:Manage discharge planning Completed Ongoing Discharge plan: Discharge plan discussed with patient and caregiver including frequency and duration for home OT and plan for transition to: live independently at home without ongoing services. Instruct and educate on knowledge deficits Problem:OT Learning Assessment Goal:Demonstrate understanding of education Completed Education methods include: verbal cues. Patient/Caregiver has received education to improve knowledge and compliance with fall prevention strategies, orthopedic condition management, pain management, post surgical precautions, home safety, infection control precautions, functional adl/iadl activity, functional transfers and discharge planning. ADL/IADLs Training Problem:OT ADLs/IADLs Goal:Improved ADLs/IADLs performance Completed Instruct patient on energy conservation, adaptive equipment/DME use and safety and falls prevention and wrapping machine tender, sock aide, shoe horn, handled sponge and handheld shower use to facilite improved performance of feeding, grooming, upper body dressing, lower body dressing, bathing and toileting hygiene with independence Transfer Training Problem:OT Functional Transfers Goal:Improved Functional Transfers Completed Instruct patient on safe transfers and proper techniques including slow positional changes to perform to and from toilet and shower/tub with Indep assistance [facility] Visit Details Visit Type -NET [employer]ELOPER ROUTINE Discipline -Physical Therapy Problems Problem Description Start Date Status Goals Interve ntions Medication Education Disciplines: Skilled Services 07/23/2024 Active 1 goal linked to scheduled/document ed intervention 1 goal intervention scheduled/document ed in this visit Sepsis Disciplines: Skilled Services 07/23/2024 Active 1 goal linked to scheduled/document ed intervention 1 goal intervention scheduled/document ed in this visit Physician Specific Parameters Disciplines: Skilled Services 07/23/2024 Active 1 goal linked to scheduled/document ed intervention 1 goal intervention scheduled/document ed in this visit Risk for Falls Disciplines: Skilled Services 07/23/2024 Active 1 goal linked to scheduled/document ed intervention 1 goal intervention scheduled/document ed in this visit Pain Disciplines: Skilled Services 07/23/2024 Active 1 goal linked to scheduled/document ed intervention 1 goal intervention scheduled/document ed in this visit Discharge Disciplines: Skilled Services 07/23/2024 Active 1 goal linked to scheduled/document ed intervention 2 goal interventions scheduled/document ed in this visit PT Impaired muscle performance and/or ROM Disciplines: PT 07/23/2024 Active 1 goal linked to scheduled/document ed intervention 1 goal intervention scheduled/document ed in this visit PT Impaired gait Disciplines: PT 07/23/2024 Active 1 goal linked to scheduled/document ed intervention 1 goal intervention scheduled/document ed in this visit PT Impaired balance Disciplines: PT 07/23/2024 Active 1 goal linked to scheduled/document ed intervention 1 goal intervention scheduled/document ed in this visit PT Orthopedic Condition Disciplines: PT 07/23/2024 Active 1 goal linked to scheduled/document ed intervention 3 goal interventions scheduled/document ed in this visit PT Learning Assessment Disciplines: PT 07/23/2024 Active 1 goal linked to scheduled/document ed intervention 1 goal intervention scheduled/document ed in this visit Goals Goal Associated Problem Outcome Goal Met? Visit Notes Patient/caregiver will demonstrate ability to obtain, store, identify and administer ordered medications, keep accurate medication list in home, and adhere to medication schedule Description: Patient/caregiver will demonstrate ability to obtain, store, identify and administer ordered medications, keep accurate medication list in home, and adhere to medication schedule by 08/13/24. Medication Education No Patient/caregiver will be able to identify and report symptoms of sepsis Description: Patient/caregiver will be able to identify signs/symptoms of sepsis infection and will verbalize actions to take if suspected by 08/13/24. Sepsis No Patient to maintain parameters within physician-specified ranges throughout certification period Physician Specific Parameters No Manage Risk for falls Description: Patient/caregiver will verbalize knowledge of individualized fall prevention strategies by 08/13/24. Risk for Falls No Manage Pain Description: Patient/caregiver will verbalize knowledge and understanding of appropriate techniques to control pain, including non-pharmacological techniques. Patient will verbalize or demonstrate an acceptable level of pain as evidenced by a pain score of 0-2/10 and improvement in ability to perform activities of daily living to be achieved by 08/13/24. Pain No Manage discharge planning Description: Patient/caregiver will verbalize understanding of ongoing discharge plan provided related to disease management, arrangements for outpatient and/or community services, obtaining medications, supplies, and DME, as needed throughout certification period. Discharge No Improved Muscle Performance and/or ROM Description: LTG: Patient will demonstrate improved muscle performance to meet functional goals as evidenced by ability to tolerate 8 mins of standing activity, to be achieved by 08/13/24. LTG: Patient and/or caregiver will verbalize/demonstrate independence with home exercise program, to improve functional mobility, to be achieved by 08/13/24. PT Impaired muscle performance and/or ROM No Improved Gait Description: LTG: Patient will demonstrate improved gait ability as evidenced by ambulation 200 feet with single point cane independently, to return to safe household ambulation, in order to reach car in the driveway, to be achieved by 08/13/24. PT Impaired gait No Improved Balance Description: LTG: Patient will demonstrate improved standing balance to meet functional goals as evidenced by no falls during home P.T. to be achieved by 08/13/24. PT Impaired balance No Manage Orthopedic Condition Description: Improve patient and/or caregiver understanding of post surgical and/or non-surgical orthopedic intervention management as evidenced by patient and/or caregiver able to verbalize, demonstrate, and teach back instruction, to be achieved by 08/13/24. PT Orthopedic Condition No Demonstrate understanding of education Description: Patient and/or caregiver will understand educational instruction to be achieved by 08/13/24. PT Learning Assessment No Interventions Intervention Associated Problem/Goal Status Variance Visit Notes Medication Education Description: Evaluate/instruct patient/caregiver on obtaining, storing, identifying and administering ordered medications as well as keeping accurate medication list in the home and adhereing to medication schedule Problem:Medication Education Goal:Patient/caregive r will demonstrate ability to obtain, store, identify and administer ordered medications, keep accurate medication list in home, and adhere to medication schedule Completed Patient instructed on importance of keeping accurate medication list in home and adhering to medication schedule. Risk of Sepsis Description: Patient is at risk for sepsis. Monitor closely for s/s of sepsis. Problem:Sepsis Goal:Patient/caregive r will be able to identify and report symptoms of sepsis Completed SPO2 Description: Notify Dr. Valesquez if pulse ox is <92% at rest. Problem:Physician Specific Parameters Goal:Patient to maintain parameters within physician-specified ranges throughout certification period Completed Instruct on individual fall risk factors and strategies to prevent falls and injuries caused by falls. Problem:Risk for Falls Goal:Manage Risk for falls Completed PT: Patient instructed on Managing Impaired Functional Mobility: Use assistive device(s): single point cane when outdoors Instruct on pain and instruct on strategies to control pain Problem:Pain Goal:Manage Pain Completed patient instructed on techniques to control pain including Pharmacological measures and Non-Pharmacological measures; positioning/elevation and use of thermal modalities, apply ice to affected area for the following prescribed frequency: prn. Instruct on ongoing discharge plan Problem:Discharge Goal:Manage discharge planning Completed Ongoing Discharge plan: Discharge plan discussed with patient including frequency and duration for home PT and plan for transition to: live independently at home without ongoing services. Instruct on importance of follow-up appts and continued monitoring with medical provider &/or chronic care clinic Problem:Discharge Goal:Manage discharge planning Completed Education provided on importance of compliance with follow-up appointment(s). Recommendations: patient/caregiver to follow up with scheduling appointment(s) for post-acute/primary care provider/chronic care clinic Physical Therapy Therapeutic Exercises Problem:PT Impaired muscle performance and/or ROM Goal:Improved Muscle Performance and/or ROM Completed patient instructed on strengthening exercises including jaswinder heel toe raises, hip felxion, abd, hams curls and 1/4 sqauts x's 10 each. seated faq x's 10 with verbal, visual and written cues for progressions. patient instructed to perform home exercise program twice a day which included above ex. Physical Therapy Gait Training Problem:PT Impaired gait Goal:Improved Gait Completed Gait training and instruction to patient on safe ambulation with single point cane for 150 feet with supervision, with verbal cues for corrections of gait deviations including safety. Physical Therapy Balance Training Problem:PT Impaired balance Goal:Improved Balance Completed Developed, implemented, and instructed patient on standing balance exercises including jaswinder standing exercises. Instruct on orthopedic precautions and weight bearing restrictions Description: Orthopedic precautions including right posterior hip: no hip flexion > 90 degrees, no adduction and no IR rotation of involved extermity. Weight bearing restrictions include: WBAT of involved extremity. Problem:PT Orthopedic Condition Goal:Manage Orthopedic Condition Completed patient instructed on orthopedic precautions. Instruct on management of edema Problem:PT Orthopedic Condition Goal:Manage Orthopedic Condition Completed Instruct patient on management of edema including elevation of JASWINDER LE above heart, AP every hour and limiting salt intake . Instruct on self-management of post surgical and/or non-surgical orthopedic intervention Problem:PT Orthopedic Condition Goal:Manage Orthopedic Condition Completed patient instructed on measures to avoid skin breakdown, signs and symptoms of infection, signs and symptoms of DVT/PE, instructed on when to call provider and instructed on when to call 911. Instruct and educate on knowledge deficits Problem:PT Learning Assessment Goal:Demonstrate understanding of education Completed patient verbalize and/or demonstrate understanding of physical therapy education including cardiac disease management, surgical precautions, functional activity and home exercise program. Education methods include: verbal cues. Further education required to improve knowledge and compliance with home exercise program. [facility] Visit Details Visit Type -NET [employer]PLICATION DEVELOPER ROUTINE Discipline -Physical Therapy Problems Problem Description Start Date Status Goals Interve ntions Medication Education Disciplines: Skilled Services 07/23/2024 Active 1 goal linked to scheduled/document ed intervention 1 goal intervention scheduled/document ed in this visit Sepsis Disciplines: Skilled Services 07/23/2024 Active 1 goal linked to scheduled/document ed intervention 1 goal intervention scheduled/document ed in this visit Physician Specific Parameters Disciplines: Skilled Services 07/23/2024 Active 1 goal linked to scheduled/document ed intervention 1 goal intervention scheduled/document ed in this visit Risk for Falls Disciplines: Skilled Services 07/23/2024 Active 1 goal linked to scheduled/document ed intervention 1 goal intervention scheduled/document ed in this visit Pain Disciplines: Skilled Services 07/23/2024 Active 1 goal linked to scheduled/document ed intervention 1 goal intervention scheduled/document ed in this visit Discharge Disciplines: Skilled Services 07/23/2024 Active 1 goal linked to scheduled/document ed intervention 2 goal interventions scheduled/document ed in this visit PT Impaired muscle performance and/or ROM Disciplines: PT 07/23/2024 Active 1 goal linked to scheduled/document ed intervention 1 goal intervention scheduled/document ed in this visit PT Impaired mobility Disciplines: PT 07/23/2024 Active 1 goal linked to scheduled/document ed intervention 1 goal intervention scheduled/document ed in this visit PT Impaired gait Disciplines: PT 07/23/2024 Active 1 goal linked to scheduled/document ed intervention 1 goal intervention scheduled/document ed in this visit PT Impaired balance Disciplines: PT 07/23/2024 Active 1 goal linked to scheduled/document ed intervention 1 goal intervention scheduled/document ed in this visit PT Orthopedic Condition Disciplines: PT 07/23/2024 Active 1 goal linked to scheduled/document ed intervention 3 goal interventions scheduled/document ed in this visit PT Learning Assessment Disciplines: PT 07/23/2024 Active 1 goal linked to scheduled/document ed intervention 1 goal intervention scheduled/document ed in this visit Goals Goal Associated Problem Outcome Goal Met? Visit Notes Patient/caregiver will demonstrate ability to obtain, store, identify and administer ordered medications, keep accurate medication list in home, and adhere to medication schedule Description: Patient/caregiver will demonstrate ability to obtain, store, identify and administer ordered medications, keep accurate medication list in home, and adhere to medication schedule by 08/13/24. Medication Education No Patient/caregiver will be able to identify and report symptoms of sepsis Description: Patient/caregiver will be able to identify signs/symptoms of sepsis infection and will verbalize actions to take if suspected by 08/13/24. Sepsis No Patient to maintain parameters within physician-specified ranges throughout certification period Physician Specific Parameters No Manage Risk for falls Description: Patient/caregiver will verbalize knowledge of individualized fall prevention strategies by 08/13/24. Risk for Falls No Manage Pain Description: Patient/caregiver will verbalize knowledge and understanding of appropriate techniques to control pain, including non-pharmacological techniques. Patient will verbalize or demonstrate an acceptable level of pain as evidenced by a pain score of 0-2/10 and improvement in ability to perform activities of daily living to be achieved by 08/13/24. Pain No Manage discharge planning Description: Patient/caregiver will verbalize understanding of ongoing discharge plan provided related to disease management, arrangements for outpatient and/or community services, obtaining medications, supplies, and DME, as needed throughout certification period. Discharge No Improved Muscle Performance and/or ROM Description: LTG: Patient will demonstrate improved muscle performance to meet functional goals as evidenced by ability to tolerate 8 mins of standing activity, to be achieved by 08/13/24. LTG: Patient and/or caregiver will verbalize/demonstrate independence with home exercise program, to improve functional mobility, to be achieved by 08/13/24. PT Impaired muscle performance and/or ROM No Improved Bed Mobility Description: STG: Patient will demonstrate improved ability to position self independently to be achieved by 08/06/24. PT Impaired mobility No Improved Gait Description: LTG: Patient will demonstrate improved gait ability as evidenced by ambulation 200 feet with single point cane independently, to return to safe household ambulation, in order to reach car in the driveway, to be achieved by 08/13/24. PT Impaired gait No Improved Balance Description: LTG: Patient will demonstrate improved standing balance to meet functional goals as evidenced by no falls during home P.T. to be achieved by 08/13/24. PT Impaired balance No Manage Orthopedic Condition Description: Improve patient and/or caregiver understanding of post surgical and/or non-surgical orthopedic intervention management as evidenced by patient and/or caregiver able to verbalize, demonstrate, and teach back instruction, to be achieved by 08/13/24. PT Orthopedic Condition No Demonstrate understanding of education Description: Patient and/or caregiver will understand educational instruction to be achieved by 08/13/24. PT Learning Assessment No Interventions Intervention Associated Problem/Goal Status Variance Visit Notes Medication Education Description: Evaluate/instruct patient/caregiver on obtaining, storing, identifying and administering ordered medications as well as keeping accurate medication list in the home and adhereing to medication schedule Problem:Medication Education Goal:Patient/caregi mona will demonstrate ability to obtain, store, identify and administer ordered medications, keep accurate medication list in home, and adhere to medication schedule Completed Patient instructed on importance of keeping accurate medication list in home and adhering to medication schedule. Risk of Sepsis Description: Patient is at risk for sepsis. Monitor closely for s/s of sepsis. Problem:Sepsis Goal:Patient/caregi mona will be able to identify and report symptoms of sepsis Completed SPO2 Description: Notify Dr. Naidu if pulse ox is <92% at rest. Problem:Physician Specific Parameters Goal:Patient to maintain parameters within physician-specified ranges throughout certification period Completed Instruct on individual fall risk factors and strategies to prevent falls and injuries caused by falls. Problem:Risk for Falls Goal:Manage Risk for falls Completed PT: Patient instructed on Managing Impaired Functional Mobility: Use assistive device(s): single point cane for outdoor ambulation Instruct on pain and instruct on strategies to control pain Problem:Pain Goal:Manage Pain Completed patient instructed on techniques to control pain including Pharmacological measures and Non-Pharmacological measures; positioning/elevatio n and use of thermal modalities, apply ice to affected area for the following prescribed frequency: prn. Deliver [facility] Problem:Discharge Goal:Manage discharge planning Completed Delivered [facility] on 08/04/24 for discharge date of 08/08/24. Instruct on ongoing discharge plan Problem:Discharge Goal:Manage discharge planning Completed Ongoing Discharge plan: Discharge plan discussed with patient including frequency and duration for home PT and plan for transition to: live independently at home without ongoing services. Physical Therapy Therapeutic Exercises Problem:PT Impaired muscle performance and/or ROM Goal:Improved Muscle Performance and/or ROM Completed patient instructed on strengthening exercises including standing heel raises, hip flexion and abd, hams curls and 1/4 squats xs 10 each. seated and supine ap with verbal, visual and written cues for form. patient instructed to perform home exercise program daily which included above ex. Physical Therapy Bed Mobility Training Problem:PT Impaired mobility Goal:Improved Bed Mobility Patient unwilling patient does not want to sleep in bed ubntil surgical precautions are lifted by Physical Therapy Gait Training Problem:PT Impaired gait Goal:Improved Gait Completed Gait training and instruction to patient on safe ambulation with single point cane for 400 feet outdoors, uneven terrain with supervision, with verbal cues for corrections of gait deviations including safety. Physical Therapy Balance Training Problem:PT Impaired balance Goal:Improved Balance Completed Developed, implemented, and instructed patient on standing balance exercises including outdoor ambulation including uneven terrain. Instruct on orthopedic precautions and weight bearing restrictions Description: Orthopedic precautions including right posterior hip: no hip flexion > 90 degrees, no adduction and no IR rotation of involved extermity. Weight bearing restrictions include: WBAT of involved extremity. Problem:PT Orthopedic Condition Goal:Manage Orthopedic Condition Completed patient instructed on orthopedic precautions. Instruct on management of edema Problem:PT Orthopedic Condition Goal:Manage Orthopedic Condition Completed Instruct patient on management of edema including elevation of B LE above the level of the heart and ice. Instruct on self-management of post surgical and/or non-surgical orthopedic intervention Problem:PT Orthopedic Condition Goal:Manage Orthopedic Condition Completed patient instructed on signs and symptoms of infection, signs and symptoms of DVT/PE, instructed on when to call provider and instructed on when to call 911. Instruct and educate on knowledge deficits Problem:PT Learning Assessment Goal:Demonstrate understanding of education Completed patient verbalize and/or demonstrate understanding of physical therapy education including surgical precautions, functional activity and home exercise program. Education methods include: verbal cues, written instructions and visual cues. Further education required to improve knowledge and compliance with home exercise program. [facility] Visit Details Visit Type -PT AGENCY DC W V ISIT Discipline -Physical Therapy Problems Problem Description Start Date Status Goals Interve ntions Medication Education Disciplines: Skilled Services 07/23/2024 Resolved on 08/09/2024 1 goal linked to scheduled/document ed intervention Sepsis Disciplines: Skilled Services 07/23/2024 Resolved on 08/09/2024 1 goal linked to scheduled/document ed intervention 1 goal intervention scheduled/document ed in this visit Physician Specific Parameters Disciplines: Skilled Services 07/23/2024 Resolved on 08/09/2024 1 goal linked to scheduled/document ed intervention 1 goal intervention scheduled/document ed in this visit Risk for Falls Disciplines: Skilled Services 07/23/2024 Resolved on 08/09/2024 1 goal linked to scheduled/document ed intervention Pain Disciplines: Skilled Services 07/23/2024 Resolved on 08/09/2024 1 goal linked to scheduled/document ed intervention 1 goal intervention scheduled/document ed in this visit High Risk Medications Disciplines: Skilled Services 07/23/2024 Resolved on 08/09/2024 1 goal linked to scheduled/document ed intervention Discharge Disciplines: Skilled Services 07/23/2024 Resolved on 08/09/2024 1 goal linked to scheduled/document ed intervention PT Impaired muscle performance and/or ROM Disciplines: PT 07/23/2024 Resolved on 08/09/2024 1 goal linked to scheduled/document ed intervention 1 goal intervention scheduled/document ed in this visit PT Impaired mobility Disciplines: PT 07/23/2024 Resolved on 08/09/2024 2 goals linked to scheduled/document ed interventions 2 goal interventions scheduled/document ed in this visit PT Impaired gait Disciplines: PT 07/23/2024 Resolved on 08/09/2024 1 goal linked to scheduled/document ed intervention 1 goal intervention scheduled/document ed in this visit PT Impaired balance Disciplines: PT 07/23/2024 Resolved on 08/09/2024 1 goal linked to scheduled/document ed intervention 1 goal intervention scheduled/document ed in this visit PT Orthopedic Condition Disciplines: PT 07/23/2024 Resolved on 08/09/2024 1 goal linked to scheduled/document ed intervention 3 goal interventions scheduled/document ed in this visit PT Learning Assessment Disciplines: PT 07/23/2024 Resolved on 08/09/2024 1 goal linked to scheduled/document ed intervention 1 goal intervention scheduled/document ed in this visit Goals Goal Associated Problem Outcome Goal Met? Visit Notes Patient/caregiver will demonstrate ability to obtain, store, identify and administer ordered medications, keep accurate medication list in home, and adhere to medication schedule Description: Patient/caregiver will demonstrate ability to obtain, store, identify and administer ordered medications, keep accurate medication list in home, and adhere to medication schedule by 08/13/24. Medication Education Completed Yes Patient/caregiver will be able to identify and report symptoms of sepsis Description: Patient/caregiver will be able to identify signs/symptoms of sepsis infection and will verbalize actions to take if suspected by 08/13/24. Sepsis Completed Yes Patient to maintain parameters within physician-specified ranges throughout certification period Physician Specific Parameters Completed Yes Manage Risk for falls Description: Patient/caregiver will verbalize knowledge of individualized fall prevention strategies by 08/13/24. Risk for Falls Completed Yes Manage Pain Description: Patient/caregiver will verbalize knowledge and understanding of appropriate techniques to control pain, including non-pharmacological techniques. Patient will verbalize or demonstrate an acceptable level of pain as evidenced by a pain score of 0-2/10 and improvement in ability to perform activities of daily living to be achieved by 08/13/24. Pain Completed Yes Patient/caregiver will teach back high risk medication side effect and precaution education Description: STG Patient/caregiver will verbalize understanding of high risk medication side effects and precautions to be achieved by 08/06/24. LTG Patient/caregiver will continue to verbalize understanding of high risk medication side effects and precautions throughout certification period. High Risk Medications Completed Yes Manage discharge planning Description: Patient/caregiver will verbalize understanding of ongoing discharge plan provided related to disease management, arrangements for outpatient and/or community services, obtaining medications, supplies, and DME, as needed throughout certification period. Discharge Completed Yes Improved Muscle Performance and/or ROM Description: LTG: Patient will demonstrate improved muscle performance to meet functional goals as evidenced by ability to tolerate 8 mins of standing activity, to be achieved by 08/13/24. LTG: Patient and/or caregiver will verbalize/demonstrate independence with home exercise program, to improve functional mobility, to be achieved by 08/13/24. PT Impaired muscle performance and/or ROM Completed Yes Improved Transfers Description: LTG: Patient will demonstrate safe transfers to/from bed, chair and toilet independently with AD, to be achieved by 08/13/24. PT Impaired mobility Completed Yes Improved Bed Mobility Description: STG: Patient will demonstrate improved ability to position self independently to be achieved by 08/06/24. PT Impaired mobility Completed Yes Improved Gait Description: LTG: Patient will demonstrate improved gait ability as evidenced by ambulation 200 feet with single point cane independently, to return to safe household ambulation, in order to reach car in the driveway, to be achieved by 08/13/24. PT Impaired gait Completed Yes Improved Balance Description: LTG: Patient will demonstrate improved standing balance to meet functional goals as evidenced by no falls during home P.T. to be achieved by 08/13/24. PT Impaired balance Completed Yes Manage Orthopedic Condition Description: Improve patient and/or caregiver understanding of post surgical and/or non-surgical orthopedic intervention management as evidenced by patient and/or caregiver able to verbalize, demonstrate, and teach back instruction, to be achieved by 08/13/24. PT Orthopedic Condition Completed Yes Demonstrate understanding of education Description: Patient and/or caregiver will understand educational instruction to be achieved by 08/13/24. PT Learning Assessment Completed Yes Interventions Intervention Associated Problem/Goal Status Variance Visit Notes Risk of Sepsis Description: Patient is at risk for sepsis. Monitor closely for s/s of sepsis. Problem:Sepsis Goal:Patient/caregive r will be able to identify and report symptoms of sepsis Completed SPO2 Description: Notify Dr. Naidu if pulse ox is <92% at rest. Problem:Physician Specific Parameters Goal:Patient to maintain parameters within physician-specified ranges throughout certification period Completed Instruct on pain and instruct on strategies to control pain Problem:Pain Goal:Manage Pain Completed patient instructed on techniques to control pain including Pharmacological measures and Non-Pharmacological measures; rest, positioning/elevation and use of thermal modalities, apply ice to affected area Physical Therapy Therapeutic Exercises Problem:PT Impaired muscle performance and/or ROM Goal:Improved Muscle Performance and/or ROM Completed patient instructed on strengthening exercises including standing heel raises, hip flexion and abd, hams curls and 1/4 squats xs 10 each. seated and supine ap with verbal, visual and written cues for form. patient instructed to perform home exercise program daily which included above ex. Physical Therapy Transfer Training Problem:PT Impaired mobility Goal:Improved Transfers Completed ANDREW transfers with safe/proper technique Physical Therapy Bed Mobility Training Problem:PT Impaired mobility Goal:Improved Bed Mobility Completed ANDREW bed mobility Physical Therapy Gait Training Problem:PT Impaired gait Goal:Improved Gait Completed Indep amb with no ad indoors and st cane for outdoors with steady recip pattern and slower pace Physical Therapy Balance Training Problem:PT Impaired balance Goal:Improved Balance Completed pt demonstrates improved dyanamic standing balance as evidenced by a TUG of 28 Instruct on orthopedic precautions and weight bearing restrictions Description: Orthopedic precautions including right posterior hip: no hip flexion > 90 degrees, no adduction and no IR rotation of involved extermity. Weight bearing restrictions include: WBAT of involved extremity. Problem:PT Orthopedic Condition Goal:Manage Orthopedic Condition Completed patient instructed on orthopedic precautions. Instruct on management of edema Problem:PT Orthopedic Condition Goal:Manage Orthopedic Condition Completed Instruct patient on management of edema including elevation of RLE above the level of the heart and ice. Instruct on self-management of post surgical and/or non-surgical orthopedic intervention Problem:PT Orthopedic Condition Goal:Manage Orthopedic Condition Completed patient instructed on managagement of orthopedic condition, measures to avoid skin breakdown, staying well hydrated, eating foods with high protein, signs and symptoms of infection, signs and symptoms of DVT/PE, follow provider guidance for showering and instructed on when to call provider. Instruct and educate on knowledge deficits Problem:PT Learning Assessment Goal:Demonstrate understanding of education Completed patient verbalize and/or demonstrate understanding of physical therapy education including cardiac disease management, orthopedic condition management, weight bearing precautions, surgical precautions, pain management, fall prevention strategies, home safety, functional activity and home exercise program. Education methods include: verbal cues and written instructions. documented in this encounter [facility] Rosalio Mena [facility] Note Date/Time August 11, 2024 11:47 am [facility] [address] [place] [address] OFFICE VISIT Date of Service: 08/11/24 MR#: [id number] Acct: [id number] Name: AZALEA MOTT Rep #: [id number] : 1950 Provider: Dr. Francois Mena MD Age/Sex: 74/F Location: [facility] [place] Status: Signed HPI HPI History of Present Illness Details: This lady has been referred to us for her recent diagnosis of atrial fibrillation. She was diagnosed with atrial fibrillation on routine workup prior to her right hip replacement surgery. She has had an echocardiogram done. It showed normal left ventricular systolic function. No major valvular abnormalities were noted. A Lexiscan stress Myoview was negative for ischemia. Postoperatively, patient went into atrial fibrillation with rapid ventricular response. She has since been treated with diltiazem and metoprolol for rate control. On apixaban for anticoagulation. Patient denies any chest pains or shortness of breath. According to her, she occasionally feels some palpitations. Yesterday she had a prolonged episode of palpitations. No syncope or presyncope. No lightheadedness. Denies orthopnea. No paroxysmal nocturnal dyspnea. Since her hip surgery, she has been having bilateral lower extremity swelling. She has been taking furosemide once daily however the edema has not improved. Intake Vital Signs 07/13/24 14:04 08/11/24 11:06 Height 5 ft 6 in 5 ft 6 in Weight: 228 lb BMI 36.8 BP 119/67 Blood Pressure Location Lt brachial Position Sitting Respiration 18 Pulse 57 L Pulse Source NIBP Intake Visit Reasons: AFIB W/RVR S/P Miner Operator Required: No Accompanied by: Is patient in pain?: No Allergies No Known Allergies Allergy (Verified 08/11/24 11:06) Medications ?Medication ?Instructions ?Recorded ?Confirmed ?Type cholecalciferol (vitamin D3) 50 2,000 unit PO DAILY frederick pplement 09/24/20 08/10/24 History mcg (2,000 unit) capsule (Vitamin D3) atorvastatin 10 mg tablet 10 mg PO QHS cholesterol 08/10/24 History multivitamin (Daily Multi-Vitamin 1 tab PO DAILY Suppl ement 07/06/24 08/10/24 History tablet) apixaban 5 mg tablet (Eliquis) 5 mg PO BID 30 days #60 tabs 07/22/24 08/10/24 Rx diltiazem HCl 300 mg capsule,24 300 mg PO DAILY 30 day s #30 caps 07/22/24 08/10/24 Rx hr,extended release (Tiadylt ER) metoprolol succinate 100 mg 100 mg PO BID 30 days #60 tabs 07/22/24 08/10/24 Rx tablet,extended release 24 hr acetaminophen 500 mg tablet 1,000 mg PO Q8 PRN 5 08/11/24 History ascorbic acid (vitamin C) 500 mg 500 mg PO BID 5 08/10/24 History tablet docusate sodium 100 mg capsule 100 mg PO BID PRN 08/1008/10/24 History ferrous sulfate 325 mg (65 mg 650 mg PO QDAY 08/10/24 08/10/24 History iron) tablet furosemide 40 mg tablet (Lasix) 40 mg PO QDAY 08/10/24 08/10/24 History multivitamin with minerals 1 tab PO QDAY 08/10/2407/01 History (Hair,Skin and Nails tablet) hydrochlorothiazide 25 mg tablet 25 mg PO QDAY 5 08/11/24 History oxycodone 5 mg tablet 5 mg PO Q4 PRN pain 08/11/24 08/11/24 History Ejection fraction %: 63 Have you fallen in the past year?: No PFSH Medical History Atrial fibrillation with RVR Chest pain COVID-19 CPAP (continuous positive airway pressure) dependence Essential (primary) hypertension Hearing loss, left Hypertensive urgency Non-smoker Obstructive sleep apnea RBBB Surgical History History of adenoidectomy History of colonoscopy History of hysteroscopy History of laparoscopic cholecystectomy History of laparoscopy History of left mastoidectomy History of tonsillectomy History of total right hip arthroplasty S/P tubal ligation Family History Mother Hypertension Asthma Diabetes COPD (chronic obstructive pulmonary disease) Crohn's disease Father , at 82. Non-Hodgkin lymphoma CHF (congestive heart failure) CVA (cerebral vascular accident) Sister CHF (congestive heart failure) Sister Diabetes Sister Hypertension Sister Fibromyalgia Sister Kidney disease Social History household members: spouse Smoking Status: Never smoker alcohol intake: never substance use type: does not use ROS Const Const: Negative for fatigue, weakness, headache(s) or weight gain ENT ENT: Negative for headache(s), dizziness, Nosebleed/epistaxis or balance problems Cardio Chest Pain: Yes Frequency: other Character: other (ache) Onset: exercise Location: mid sternal Duration: continuous Exacerbation: exercise Relieving: rest Edema: None Muscle aches with walking: None Resp Respiratory: Positive for SOB with activity (slow to recover); Negative for SOB at rest or SOB orthopneaundefinedSOB lying down GI GI: Negative nausea, vomiting or heartburn Musc Musc: Negative for muscle aches/ myalgia, muscle weakness, joint pain or balanceproblems Neuro Neuro: Negative for dizziness, lightheadedness, near syncope, syncope, headache(s) or weakness Endo Endo: Negative for fatigue Cardiology Exam Const Appearance: comfortable and no acute distress Nutritional Appearance: well nourished Neck Neck: no JVD Carotids: Negative bruit Chest Auscultation: Bilateral: Clear to Auscultation Cardio Rate: regular rate Rhythm: regular rhythm Heart sounds: S1 normal and S2 normal Neuro General: patient alert, patient awake and patient oriented x3 Extremities Lower Extremity Edema: +2: Bilateral Supplemental Info Supplemental Information Echocardiogram 06/23/2024: CONCLUSIONS: - Exam indication: a-fib - The left ventricle is normal in size. Left ventricular systolic function is normal. EF = 63 ? 5% (2D biplane) Grade II left ventricular diastolic dysfunction. - The right ventricle is normal in size. Right ventricular systolic function is normal. - There is mild (1+) tricuspid regurgitation. - The patient has not had a prior CC echocardiographic exam for comparison. Stress Test 06/23/2024: CONCLUSIONS: ?1. SPECT Perfusion Study: Normal. ?2. There is no scintigraphic evidence for inducible ischemia. ?3. No evidence of scarred myocardium. ?4. Left ventricle is normal in size. The left ventricle systolic function is hyperdynamic. ?5. This is a low risk scan. Stress ECG Conclusion: Conclusion: Normal Assessment and Plan Assessment and Plan (1) Paroxysmal atrial fibrillation: Status: Chronic Plan: ECG done in the office today shows sinus bradycardia with right bundle branch block. Continue apixaban for anticoagulation. Risks and benefits discussed with patient. Metoprolol and diltiazem for rate control. Refer to electrophysiology for evaluation for A-fib ablation. (2) Bilateral lower extremity edema: Status: Acute Plan: Check bilateral lower extremity Doppler to rule out DVT. Increase furosemide to 40 mg twice daily. Potassium supplementation. If the edema fails to improve with increasing furosemide, then will consider stopping her diltiazem as it may be causing/contributing to her lower extremity edema. (3) Hypertension: Status: Chronic Plan: Furosemide, metoprolol, diltiazem. DC hydrochlorothiazide. (4) Status post right hip replacement: Status: Resolved Plan: Recent hip surgery. Orders: Orders 12 [place] [facility] [place]. Rosalio Mena MD I48.91 - Unspecified atrial fibrillation Medications: Changed From acetaminophen 1,000 mg (2 x 500 mg) PO Q8 0 tabs 0RF To acetaminophen 1,000 mg PO Q8 PRN Dr. New Bear MD Plan Details Follow Up: 6 Weeks Coding Level of Care Code Off vis,new,level 4 Diagnoses Paroxysmal atrial fibrillation I48.0 Bilateral lower extremity edema R60.0 Hypertension I10 Status post right hip replacement Z96.641 Coding Level of Care Code Off vis,new,level 4 Diagnoses Paroxysmal atrial fibrillation I48.0 Bilateral lower extremity edema R60.0 Hypertension I10 Status post right hip replacement Z96.641 Clinical Quality Measures Falls Risk Screening/Assistive Devices Have you fallen in the past year?: No Cardiac Ejection fraction %: 63 08/11/24 1147 <Electronically signed by Rosalio Mena MD> Date _ Rosalio Mena MD Cosigner Signature: Date (if applicable) CC: Dr. Navdeep Ulloa MD ~ [facility] Work Phone: [facility] Outpatient Procedure (Routine) - Authorized Specialty Diagnoses / Procedures Referred By Contac t Referred To Contact [facility] Diagnoses Premature beats Procedures ECG COMPLETE ECG ROUTINE ECG W/LEAST 12 LDS W/I&R Navdeep Ulloa MD [address] [place] [address] [facility] [address] [place] [id number] Referral ID Status Reason Start Date Expiration Date Visits Requested Visits Authorized [id number] Authorized Auto-Generat ed Referral 05/24/2021 05/24/2022 1 1 [facility] for referral (narrative)* Diagnostic Procedure Only (Routine) - Authorized Specialty Diagnoses / Procedures Referred By Contac t Referred To Contact [facility] Diagnoses Encounter for screening mammogram for breast cancer Procedures JOEL SCREENING SCREENING MAMMOGRAPHY BI 2-VIEW BREAST INC CAD OlderMary, POULTRY HATCHERY MANAGER.PROTEIN PURIFICATION SCIENTIST [address] [place] [address] [facility] [address] [place] [address] Referral ID Status Reason Start Date Expiration Date Visits Requested Visits Authorized [id number] Authorized Auto-Generat ed Referral 02/23/2023 1 1 [facility] for referral (narrative)* Diagnostic Procedure Only (Routine) - Closed Specialty Diagnoses / Procedures Referred By Contac t Referred To Contact [facility] Diagnoses Encounter for screening mammogram for breast cancer Procedures JOEL SCREENING SCREENING MAMMOGRAPHY BI 2-VIEW BREAST INC CAD Mary Arroyo, POULTRY HATCHERY MANAGER.PROTEIN PURIFICATION SCIENTIST [address] [place] [address] [facility] [address] [place] [address] Referral ID Status Reason Start Date Expiration Date V isits Requested Visits Authorized [id number] Closed Auto-Generate d Referral 01/24/2022 02/23/2023 1 1 [facility] for referral (narrative)* Diagnostic Procedure Only (Routine) - Pending Review Specialty Diagnoses / Procedures Referred By Contac t Referred To Contact [facility] Diagnoses Encounter for screening mammogram for breast cancer Procedures JOEL SCREENING SCREENING MAMMOGRAPHY BI 2-VIEW BREAST INC CAD OlderMary, POULTRY HATCHERY MANAGER.PROTEIN PURIFICATION SCIENTIST [address] [place] [address] [facility] [address] [place] [address] Referral ID Status Reason Start Date Expiration Date Visits Requested Visits Authorized [id number] Pending Review Auto-Generat ed Referral 3 02/25/2024 1 1 [facility] for referral (narrative)* Diagnostic Procedure Only (Routine) - Closed Specialty Diagnoses / Procedures Referred By Sandy t Referred To Contact [facility] IMAG[facility] Diagnoses Right hip pain Procedures XR HIP GENERAL 3V PELV/AP/LAT RIGHT RADEX HIP UNILATERAL WITH PELVIS 2-3 VIEWS Mary Glover APRN.PROTEIN PURIFICATION SCIENTIST [address] [place] [address] [place] [address] Referral ID Status Reason Start Date Expiration Date V isits Requested Visits Authorized [id number] Closed Auto-Generate d Referral 01/27/2024 02/25/2025 1 1 * Diagnostic Procedure Only (Routine) - Authorized Specialty Diagnoses / Procedures Referred By Sandy t Referred To Contact [facility] Diagnoses Encounter for screening mammogram for breast cancer Procedures JOEL SCREENING W DIALLO SCREENING DIGITAL BREAST TOMOSYNTHESIS BI SCREENING MAMMOGRAPHY BI 2-VIEW BREAST INC CAD Mary Glover APRN.PROTEIN PURIFICATION SCIENTIST [address] [place] [address] [facility] [address] [place] [address] Referral ID Status Reason Start Date Expiration Date Visits Requested Visits Authorized [id number] Authorized Auto-Generat ed Referral 4 02/25/2025 1 1 [facility] for visit Narrative* Diagnostic Procedure Only (Routine) - Closed Specialty Diagnoses / Procedures Referred By Contac t Referred To Contact [facility] Diagnoses Encounter for screening mammogram for breast cancer Procedures JOEL SCREENING SCREENING MAMMOGRAPHY BI 2-VIEW BREAST INC CAD Mary Arroyo APRN.PROTEIN PURIFICATION SCIENTIST [address] [place] [address] [facility] [address] [place] [address] Referral ID Status Reason Start Date Expiration Date V isits Requested Visits Authorized [id number] Closed Auto-Generate d Referral 01/24/2022 02/23/2023 1 1 [facility] for visit Narrative* Diagnostic Procedure Only (Routine) - Closed Specialty Diagnoses / Procedures Referred By Sandy t Referred To Contact [facility] Diagnoses Encounter for screening mammogram for breast cancer Procedures JOEL SCREENING SCREENING MAMMOGRAPHY BI 2-VIEW BREAST INC CAD Mary Glover, POULTRY HATCHERY MANAGER.PROTEIN PURIFICATION SCIENTIST [address] [place] [address] [facility] [address] [place] [address] Referral ID Status Reason Start Date Expiration Date V isits Requested Visits Authorized [id number] Closed Auto-Generate d Referral 01/26/2023 02/25/2024 1 1 [facility] for visit Narrative* Diagnostic Procedure Only (Routine) - Closed Specialty Diagnoses / Procedures Referred By Sandy t Referred To Contact XR IMAGING Diagnoses Right hip pain Procedures XR HIP GENERAL 3V PELV/AP/LAT RIGHT RADEX HIP UNILATERAL WITH PELVIS 2-3 VIEWS Mary Glover, POULTRY HATCHERY MANAGER.PROTEIN PURIFICATION SCIENTIST [address] [place] [address] [place] [address] Referral ID Status Reason Start Date Expiration Date V isits Requested Visits Authorized [id number] Closed Auto-Generate d Referral 01/27/2024 02/25/2025 1 1 [facility] for visit Narrative* Diagnostic Procedure Only (Routine) - Closed Specialty Diagnoses / Procedures Referred By Sandy t Referred To Contact [facility] Diagnoses Encounter for screening mammogram for breast cancer Procedures JOEL SCREENING W DIALLO SCREENING DIGITAL BREAST TOMOSYNTHESIS BI SCREENING MAMMOGRAPHY BI 2-VIEW BREAST INC CAD Mary Glover, POULTRY HATCHERY MANAGER.PROTEIN PURIFICATION SCIENTIST [address] [place] [address] [facility] [address] [place] [address] Referral ID Status Reason Start Date Expiration Date V isits Requested Visits Authorized [id number] Closed Auto-Generate d Referral 01/27/2024 02/25/2025 1 1 [facility] for visit Narrative* Diagnostic Procedure Only (Routine) - Closed Specialty Diagnoses / Procedures Referred By Contac t Referred To Contact XR IMAGING Diagnoses Primary osteoarthritis of right hip Procedures XR LUMBAR SPECIFY 1V RADEX SPINE 1 VIEW SPECIFY LEVEL Eligio Gibbons MD [address] [place] [address] Phone: tel: fax: [facility] [place] [address] Referral ID Status Reason Start Date Expiration Date V isits Requested Visits Authorized [id number] Closed Auto-Generate d Referral 05/11/2024 06/10/2025 1 1 [facility] for visit Narrative* Diagnostic Procedure Only (Routine) - Closed Specialty Diagnoses / Procedures Referred By Contact Referred To Contact [facility] Diagnoses Atrial flutter, unspecified type (HCC) Abnormal electrocardiogram (ECG) (EKG) Procedures NM CARDIAC PERF STRESS/PHARM MYOCARDIAL SPECT MULTIPLE STUDIES Taty Hidalgo MD [address] [place] [address] Phone: tel:[phone] fax:[phone] [facility] [address] [place] [address] Phone: tel:[phone] Referral ID Status Reason Start Date Expiration Date V isits Requested Visits Authorized [id number] Closed Auto-Generate d Referral 06/09/2024 07/09/2025 1 1 [facility] for visit Narrative* Outpatient Procedure (Routine) - Closed Specialty Diagnoses / Procedures Referred By Contac t Referred To Contact [facility] Diagnoses Atrial flutter, unspecified type (HCC) Paroxysmal A-fib (HCC) Procedures ECHO ECHO TTHRC R-T 2D W/WOM-MODE COMPL SPEC&COLR D Taty Hidalgo MD [address] [place] [address] Phone: tel: fax: [facility] [address] [place] [address] Referral ID Status Reason Start Date Expiration Date V isits Requested Visits Authorized [id number] Closed Auto-Generate d Referral 06/09/2024 06/09/2025 1 1 [facility] for visit Narrative* Diagnostic Procedure Only (Routine) - Closed Specialty Diagnoses / Procedures Referred By Sandy rai Referred To Contact XR IMAGING Diagnoses Status post right hip replacement Procedures XR HIP GENERAL 3V PELV/AP/LAT RIGHT RADEX HIP UNILATERAL WITH PELVIS 2-3 VIEWS Eligio Gibbons MD [address] [place] [address] Phone: tel: fax: [place] [address] Referral ID Status Reason Start Date Expiration Date V isits Requested Visits Authorized [id number] Closed Auto-Generate d Referral 07/11/2024 08/10/2025 1 1 [facility] Summary Purpose Family History Relationship Condition Age at Onset Recorded Date/T sunny mother Hypertension Unknown Asthma Unknown Diabetes mellitus Unknown Chronic obstructive pulmonary disease Unk nown Crohn's disease Unknown father Non-Hodgkin lymphoma Unknown Congestive heart failure Unknown Cerebrovascular accident (CVA) Unknown sister Congestive heart failure Unknown sister Diabetes mellitus Unknown sister Hypertension Unknown sister Fibromyalgia Unknown sister Kidney disorder Unknown Advance Directives Documents on File Type Date Recorded Patient Technical Consultant Expl anation Advance Directive(s) 06/27/2024 4:14 PM Date Activated Date Inactivated Comments 07/23/2024 1:07 PM Documents on File Type Date Recorded Patient Technical Consultant Expl anation Advance Directive(s) 06/27/2024 4:14 PM Advance Directive Response Recorded Date/ Time Do you have a Healthcare Pow er of Jackhammer Operator? Yes July 07, 2024 3:14pm Name of Medical Power of Jackhammer Operator Uli Mott, July 07, 2024 3:14pm Date Activated Date Inactivated Comments 07/23/2024 1:07 PM Reason for Referral Specialty Diagnoses / Procedures Referred By Sandy rai Referred To Contact [facility] Diagnoses Primary osteoarthritis of right hip Procedures CONSULT TO PHYSICAL THERAPY PHYSICAL THERAPY EVALUATION HIGH COMPLEX 45 MINS Bryan Linda V, DO [address] [place] [address] [facility] [address] [place] [address] Referral ID Status Reason Start Date Expiration Date Visits Requested Visits Authorized [id number] Authorized PCP Requested Referral Auto-Generate d Referral 4 02/16/2025 99 99 Chief Complaint and Reason for Visit Chief Complaint Admit Date R TOTAL HIP ARTHROPLASTY July 06 1:28pm TACHY July 08, 2024 8:46am EKG July 14, 2024 10:53a m Reason for Visit Admit Date Atrial fibrillation with RVR July 06, 2024 1:28pm Debility July 06, 2024 1:2 8pm Essential (primary) hypertension June 092024 1:28pm Hyperlipidemia, unspecified July 06, 2024 1:28pm Iron deficiency anemia July 06, 2024 1:28pm Obesity July 06, 2024 1:2 8pm Obstructive sleep apnea July 06, 2024 1:28pm Status post total hip replacement, right July 06, 2024 1:28pm Venous insufficiency July 06, 2024 1: 28pm Chronic kidney disease, stage 3a June 092024 1:28pm Chief Complaint Admit Date R TOTAL HIP ARTHROPLASTY July 06 1:28pm TACHY July 08, 2024 8:46am EKG July 14, 2024 10:53a m AFIB W/RVR S/P August 11, 2024 10:37 am Reason for Visit Admit Date Debility July 06, 2024 1:2 8pm Iron deficiency anemia July 06, 2024 1:28pm Obesity July 06, 2024 1:2 8pm Venous insufficiency July 06, 2024 1: 28pm Atrial fibrillation with RVR July 06, 2024 1:28pm Chronic kidney disease, stage 3a June 092024 1:28pm Essential (primary) hypertension June 092024 1:28pm Hyperlipidemia, unspecified July 06, 2024 1:28pm Obstructive sleep apnea July 06, 2024 1:28pm Status post total hip replacement, right July 06, 2024 1:28pm Bilateral lower extremity edema August 10:37am Hypertension August 11, 2024 10:37 am Paroxysmal atrial fibrillation August 11, 2024 10:37am Status post right hip replacement August 112024 10:37am Chief Complaint Admit Date R TOTAL HIP ARTHROPLASTY July 06 1:28pm TACHY July 08, 2024 8:46am EKG July 14, 2024 10:53a m AFIB W/RVR S/P August 11, 2024 10:37 am INT LABS August 17, 2024 9:32 am Additional Source Comments INFORMATION SOURCE (unrecogn ized section and content) DATE CREATED AUTHOR 06/22/2020 [facility] DATE CREATED AUTHOR AUTHOR'S ORGANIZ ATION 07/21/2024 [facility] DATE CREATED AUTHOR AUTHOR'S ORGANIZ ATION 08/18/2024 [facility] DATE CREATED AUTHOR AUTHOR'S ORGANIZ ATION 08/19/2024 [facility] Source Comments (unrecognize d section and content) In the event this informatio n is protected by the Federal Confidentiality of Alcohol and Drug Abuse Patient Records regulations: The Federal rules restrict any use of the information to criminally investigate or prosecute any alcohol or drug abuse patient.[facility] the event this information is protected by the Federal Confidentiality of Alcohol and Drug Abuse Patient Records regulations: The Federal rules restrict any use of the information to criminally investigate or prosecute any alcohol or drug abuse patient.[facility] the event this information is protected by the Federal Confidentiality of Alcohol and Drug Abuse Patient Records regulations: The Federal rules restrict any use of the information to criminally investigate or prosecute any alcohol or drug abuse patient.[facility] the event this information is protected by the Federal Confidentiality of Alcohol and Drug Abuse Patient Records regulations: The Federal rules restrict any use of the information to criminally investigate or prosecute any alcohol or drug abuse patient.[facility] HospitalIn the event this information is protected by the Federal Confidentiality of Alcohol and Drug Abuse Patient Records regulations: The Federal rules restrict any use of the information to criminally investigate or prosecute any alcohol or drug abuse patient.[facility] HospitalIn the event this information is protected by the Federal Confidentiality of Alcohol and Drug Abuse Patient Records regulations: The Federal rules restrict any use of the information to criminally investigate or prosecute any alcohol or drug abuse patient.[facility] HospitalIn the event this information is protected by the Federal Confidentiality of Alcohol and Drug Abuse Patient Records regulations: The Federal rules restrict any use of the information to criminally investigate or prosecute any alcohol or drug abuse patient.[facility] HospitalIn the event this information is protected by the Federal Confidentiality of Alcohol and Drug Abuse Patient Records regulations: The Federal rules restrict any use of the information to criminally investigate or prosecute any alcohol or drug abuse patient.[facility] HospitalIn the event this information is protected by the Federal Confidentiality of Alcohol and Drug Abuse Patient Records regulations: The Federal rules restrict any use of the information to criminally investigate or prosecute any alcohol or drug abuse patient.[facility] HospitalIn the event this information is protected by the Federal Confidentiality of Alcohol and Drug Abuse Patient Records regulations: The Federal rules restrict any use of the information to criminally investigate or prosecute any alcohol or drug abuse patient.[facility] HospitalIn the event this information is protected by the Federal Confidentiality of Alcohol and Drug Abuse Patient Records regulations: The Federal rules restrict any use of the information to criminally investigate or prosecute any alcohol or drug abuse patient.[facility] HospitalIn the event this information is protected by the Federal Confidentiality of Alcohol and Drug Abuse Patient Records regulations: The Federal rules restrict any use of the information to criminally investigate or prosecute any alcohol or drug abuse patient.[facility] HospitalIn the event this information is protected by the Federal Confidentiality of Alcohol and Drug Abuse Patient Records regulations: The Federal rules restrict any use of the information to criminally investigate or prosecute any alcohol or drug abuse patient.[facility] HospitalIn the event this information is protected by the Federal Confidentiality of Alcohol and Drug Abuse Patient Records regulations: The Federal rules restrict any use of the information to criminally investigate or prosecute any alcohol or drug abuse patient.[facility] HospitalIn the event this information is protected by the Federal Confidentiality of Alcohol and Drug Abuse Patient Records regulations: The Federal rules restrict any use of the information to criminally investigate or prosecute any alcohol or drug abuse patient.[facility] HospitalIn the event this information is protected by the Federal Confidentiality of Alcohol and Drug Abuse Patient Records regulations: The Federal rules restrict any use of the information to criminally investigate or prosecute any alcohol or drug abuse patient.[facility] HospitalIn the event this information is protected by the Federal Confidentiality of Alcohol and Drug Abuse Patient Records regulations: The Federal rules restrict any use of the information to criminally investigate or prosecute any alcohol or drug abuse patient.[facility] HospitalIn the event this information is protected by the Federal Confidentiality of Alcohol and Drug Abuse Patient Records regulations: The Federal rules restrict any use of the information to criminally investigate or prosecute any alcohol or drug abuse patient.[facility] HospitalIn the event this information is protected by the Federal Confidentiality of Alcohol and Drug Abuse Patient Records regulations: The Federal rules restrict any use of the information to criminally investigate or prosecute any alcohol or drug abuse patient.[facility] HospitalIn the event this information is protected by the Federal Confidentiality of Alcohol and Drug Abuse Patient Records regulations: The Federal rules restrict any use of the information to criminally investigate or prosecute any alcohol or drug abuse patient.[facility] HospitalIn the event this information is protected by the Federal Confidentiality of Alcohol and Drug Abuse Patient Records regulations: The Federal rules restrict any use of the information to criminally investigate or prosecute any alcohol or drug abuse patient.[facility] HospitalIn the event this information is protected by the Federal Confidentiality of Alcohol and Drug Abuse Patient Records regulations: The Federal rules restrict any use of the information to criminally investigate or prosecute any alcohol or drug abuse patient.[facility] HospitalIn the event this information is protected by the Federal Confidentiality of Alcohol and Drug Abuse Patient Records regulations: The Federal rules restrict any use of the information to criminally investigate or prosecute any alcohol or drug abuse patient.[facility] HospitalIn the event this information is protected by the Federal Confidentiality of Alcohol and Drug Abuse Patient Records regulations: The Federal rules restrict any use of the information to criminally investigate or prosecute any alcohol or drug abuse patient.[facility] HospitalIn the event this information is protected by the Federal Confidentiality of Alcohol and Drug Abuse Patient Records regulations: The Federal rules restrict any use of the information to criminally investigate or prosecute any alcohol or drug abuse patient.[facility] HospitalIn the event this information is protected by the Federal Confidentiality of Alcohol and Drug Abuse Patient Records regulations: The Federal rules restrict any use of the information to criminally investigate or prosecute any alcohol or drug abuse patient.[facility] HospitalIn the event this information is protected by the Federal Confidentiality of Alcohol and Drug Abuse Patient Records regulations: The Federal rules restrict any use of the information to criminally investigate or prosecute any alcohol or drug abuse patient.[facility] HospitalIn the event this information is protected by the Federal Confidentiality of Alcohol and Drug Abuse Patient Records regulations: The Federal rules restrict any use of the information to criminally investigate or prosecute any alcohol or drug abuse patient.[facility] HospitalIn the event this information is protected by the Federal Confidentiality of Alcohol and Drug Abuse Patient Records regulations: The Federal rules restrict any use of the information to criminally investigate or prosecute any alcohol or drug abuse patient.[facility] HospitalIn the event this information is protected by the Federal Confidentiality of Alcohol and Drug Abuse Patient Records regulations: The Federal rules restrict any use of the information to criminally investigate or prosecute any alcohol or drug abuse patient.[facility] HospitalIn the event this information is protected by the Federal Confidentiality of Alcohol and Drug Abuse Patient Records regulations: The Federal rules restrict any use of the information to criminally investigate or prosecute any alcohol or drug abuse patient.[facility] HospitalIn the event this information is protected by the Federal Confidentiality of Alcohol and Drug Abuse Patient Records regulations: The Federal rules restrict any use of the information to criminally investigate or prosecute any alcohol or drug abuse patient.[facility] HospitalIn the event this information is protected by the Federal Confidentiality of Alcohol and Drug Abuse Patient Records regulations: The Federal rules restrict any use of the information to criminally investigate or prosecute any alcohol or drug abuse patient.[facility] HospitalIn the event this information is protected by the Federal Confidentiality of Alcohol and Drug Abuse Patient Records regulations: The Federal rules restrict any use of the information to criminally investigate or prosecute any alcohol or drug abuse patient.[facility] HospitalIn the event this information is protected by the Federal Confidentiality of Alcohol and Drug Abuse Patient Records regulations: The Federal rules restrict any use of the information to criminally investigate or prosecute any alcohol or drug abuse patient.[facility] HospitalIn the event this information is protected by the Federal Confidentiality of Alcohol and Drug Abuse Patient Records regulations: The Federal rules restrict any use of the information to criminally investigate or prosecute any alcohol or drug abuse patient.[facility] HospitalIn the event this information is protected by the Federal Confidentiality of Alcohol and Drug Abuse Patient Records regulations: The Federal rules restrict any use of the information to criminally investigate or prosecute any alcohol or drug abuse patient.[facility] HospitalIn the event this information is protected by the Federal Confidentiality of Alcohol and Drug Abuse Patient Records regulations: The Federal rules restrict any use of the information to criminally investigate or prosecute any alcohol or drug abuse patient.[facility] HospitalIn the event this information is protected by the Federal Confidentiality of Alcohol and Drug Abuse Patient Records regulations: The Federal rules restrict any use of the information to criminally investigate or prosecute any alcohol or drug abuse patient.[facility] HospitalIn the event this information is protected by the Federal Confidentiality of Alcohol and Drug Abuse Patient Records regulations: The Federal rules restrict any use of the information to criminally investigate or prosecute any alcohol or drug abuse patient.[facility] HospitalIn the event this information is protected by the Federal Confidentiality of Alcohol and Drug Abuse Patient Records regulations: The Federal rules restrict any use of the information to criminally investigate or prosecute any alcohol or drug abuse patient.[facility] HospitalIn the event this information is protected by the Federal Confidentiality of Alcohol and Drug Abuse Patient Records regulations: The Federal rules restrict any use of the information to criminally investigate or prosecute any alcohol or drug abuse patient.[facility] HospitalIn the event this information is protected by the Federal Confidentiality of Alcohol and Drug Abuse Patient Records regulations: The Federal rules restrict any use of the information to criminally investigate or prosecute any alcohol or drug abuse patient.[facility] HospitalIn the event this information is protected by the Federal Confidentiality of Alcohol and Drug Abuse Patient Records regulations: The Federal rules restrict any use of the information to criminally investigate or prosecute any alcohol or drug abuse patient.[facility] HospitalIn the event this information is protected by the Federal Confidentiality of Alcohol and Drug Abuse Patient Records regulations: The Federal rules restrict any use of the information to criminally investigate or prosecute any alcohol or drug abuse patient.[facility] HospitalIn the event this information is protected by the Federal Confidentiality of Alcohol and Drug Abuse Patient Records regulations: The Federal rules restrict any use of the information to criminally investigate or prosecute any alcohol or drug abuse patient.[facility] HospitalIn the event this information is protected by the Federal Confidentiality of Alcohol and Drug Abuse Patient Records regulations: The Federal rules restrict any use of the information to criminally investigate or prosecute any alcohol or drug abuse patient.[facility] HospitalIn the event this information is protected by the Federal Confidentiality of Alcohol and Drug Abuse Patient Records regulations: The Federal rules restrict any use of the information to criminally investigate or prosecute any alcohol or drug abuse patient.[facility] HospitalIn the event this information is protected by the Federal Confidentiality of Alcohol and Drug Abuse Patient Records regulations: The Federal rules restrict any use of the information to criminally investigate or prosecute any alcohol or drug abuse patient.[facility] HospitalIn the event this information is protected by the Federal Confidentiality of Alcohol and Drug Abuse Patient Records regulations: The Federal rules restrict any use of the information to criminally investigate or prosecute any alcohol or drug abuse patient.[facility] HospitalIn the event this information is protected by the Federal Confidentiality of Alcohol and Drug Abuse Patient Records regulations: The Federal rules restrict any use of the information to criminally investigate or prosecute any alcohol or drug abuse patient.[facility] HospitalIn the event this information is protected by the Federal Confidentiality of Alcohol and Drug Abuse Patient Records regulations: The Federal rules restrict any use of the information to criminally investigate or prosecute any alcohol or drug abuse patient.[facility] HospitalIn the event this information is protected by the Federal Confidentiality of Alcohol and Drug Abuse Patient Records regulations: The Federal rules restrict any use of the information to criminally investigate or prosecute any alcohol or drug abuse patient.[facility] HospitalIn the event this information is protected by the Federal Confidentiality of Alcohol and Drug Abuse Patient Records regulations: The Federal rules restrict any use of the information to criminally investigate or prosecute any alcohol or drug abuse patient.[facility]In the event this information is protected by the Federal Confidentiality of Alcohol and Drug Abuse Patient Records regulations: The Federal rules restrict any use of the information to criminally investigate or prosecute any alcohol or drug abuse patient.[facility] HospitalIn the event this information is protected by the Federal Confidentiality of Alcohol and Drug Abuse Patient Records regulations: The Federal rules restrict any use of the information to criminally investigate or prosecute any alcohol or drug abuse patient.[facility] HospitalIn the event this information is protected by the Federal Confidentiality of Alcohol and Drug Abuse Patient Records regulations: The Federal rules restrict any use of the information to criminally investigate or prosecute any alcohol or drug abuse patient.[facility] HospitalIn the event this information is protected by the Federal Confidentiality of Alcohol and Drug Abuse Patient Records regulations: The Federal rules restrict any use of the information to criminally investigate or prosecute any alcohol or drug abuse patient.[facility] HospitalIn the event this information is protected by the Federal Confidentiality of Alcohol and Drug Abuse Patient Records regulations: The Federal rules restrict any use of the information to criminally investigate or prosecute any alcohol or drug abuse patient.[facility] HospitalIn the event this information is protected by the Federal Confidentiality of Alcohol and Drug Abuse Patient Records regulations: The Federal rules restrict any use of the information to criminally investigate or prosecute any alcohol or drug abuse patient.[facility]In the event this information is protected by the Federal Confidentiality of Alcohol and Drug Abuse Patient Records regulations: The Federal rules restrict any use of the information to criminally investigate or prosecute any alcohol or drug abuse patient.[facility]In the event this information is protected by the Federal Confidentiality of Alcohol and Drug Abuse Patient Records regulations: The Federal rules restrict any use of the information to criminally investigate or prosecute any alcohol or drug abuse patient.[facility]In the event this information is protected by the Federal Confidentiality of Alcohol and Drug Abuse Patient Records regulations: The Federal rules restrict any use of the information to criminally investigate or prosecute any alcohol or drug abuse patient.[facility]In the event this information is protected by the Federal Confidentiality of Alcohol and Drug Abuse Patient Records regulations: The Federal rules restrict any use of the information to criminally investigate or prosecute any alcohol or drug abuse patient.[facility]In the event this information is protected by the Federal Confidentiality of Alcohol and Drug Abuse Patient Records regulations: The Federal rules restrict any use of the information to criminally investigate or prosecute any alcohol or drug abuse patient.[facility]In the event this information is protected by the Federal Confidentiality of Alcohol and Drug Abuse Patient Records regulations: The Federal rules restrict any use of the information to criminally investigate or prosecute any alcohol or drug abuse patient.[facility] HospitalIn the event this information is protected by the Federal Confidentiality of Alcohol and Drug Abuse Patient Records regulations: The Federal rules restrict any use of the information to criminally investigate or prosecute any alcohol or drug abuse patient.[facility]In the event this information is protected by the Federal Confidentiality of Alcohol and Drug Abuse Patient Records regulations: The Federal rules restrict any use of the information to criminally investigate or prosecute any alcohol or drug abuse patient.[facility]In the event this information is protected by the Federal Confidentiality of Alcohol and Drug Abuse Patient Records regulations: The Federal rules restrict any use of the information to criminally investigate or prosecute any alcohol or drug abuse patient.[facility]In the event this information is protected by the Federal Confidentiality of Alcohol and Drug Abuse Patient Records regulations: The Federal rules restrict any use of the information to criminally investigate or prosecute any alcohol or drug abuse patient.[facility]In the event this information is protected by the Federal Confidentiality of Alcohol and Drug Abuse Patient Records regulations: The Federal rules restrict any use of the information to criminally investigate or prosecute any alcohol or drug abuse patient.[facility]In the event this information is protected by the Federal Confidentiality of Alcohol and Drug Abuse Patient Records regulations: The Federal rules restrict any use of the information to criminally investigate or prosecute any alcohol or drug abuse patient.[facility] HospitalIn the event this information is protected by the Federal Confidentiality of Alcohol and Drug Abuse Patient Records regulations: The Federal rules restrict any use of the information to criminally investigate or prosecute any alcohol or drug abuse patient.[facility]In the event this information is protected by the Federal Confidentiality of Alcohol and Drug Abuse Patient Records regulations: The Federal rules restrict any use of the information to criminally investigate or prosecute any alcohol or drug abuse patient.[facility] HospitalIn the event this information is protected by the Federal Confidentiality of Alcohol and Drug Abuse Patient Records regulations: The Federal rules restrict any use of the information to criminally investigate or prosecute any alcohol or drug abuse patient.[facility]In the event this information is protected by the Federal Confidentiality of Alcohol and Drug Abuse Patient Records regulations: The Federal rules restrict any use of the information to criminally investigate or prosecute any alcohol or drug abuse patient.[facility]In the event this information is protected by the Federal Confidentiality of Alcohol and Drug Abuse Patient Records regulations: The Federal rules restrict any use of the information to criminally investigate or prosecute any alcohol or drug abuse patient.[facility]In the event this information is protected by the Federal Confidentiality of Alcohol and Drug Abuse Patient Records regulations: The Federal rules restrict any use of the information to criminally investigate or prosecute any alcohol or drug abuse patient.[facility] HospitalIn the event this information is protected by the Federal Confidentiality of Alcohol and Drug Abuse Patient Records regulations: The Federal rules restrict any use of the information to criminally investigate or prosecute any alcohol or drug abuse patient.[facility] Reason for Visit (unrecogniz ed section and content) Reason Comments PT Discharge Specialty Diagnoses / Procedures Referred By Luisac t Referred To Contact [facility] Diagnoses Primary osteoarthritis of right hip Procedures CONSULT TO PHYSICAL THERAPY PHYSICAL THERAPY EVALUATION HIGH COMPLEX 45 MINS Bryan Linda V, DO [address] [place] [address] [facility] [address] [place] [address] Referral ID Status Reason Start Date Expiration Date Visits Requested Visits Authorized [id number] Authorized PCP Requested Referral Auto-Generate d Referral 02/16/2025 99 99 Reason Comments Physical Therapy Reason Comments Recheck 7 month follow up Reason Comments Cough fever 100.2 at home x 1 day Reason Comments Patient Update Reason Onset Date Comments Refill Request 10/25/2021 Reason Comments Medicare Wellness Exam Reason Comments Appointment Request: Cough and Other Sym ptoms Reason Comments 6 week follow-up Reason Comments Medicare Wellness Exam F/U 6 months Reason Comments Ear Problem Feels plugged x 4 da ys Reason Comments Cough Cough x 2 days Reason Comments Results Reason Comments Cough Reason Comments Edema Reason Comments 5 month follow-up Reason Comments LESION, SKIN Reason Comments Medicare Wellness Exam Reason Comments OA right hip Specialty Diagnoses / Procedures Referred By Luisac t Referred To Contact Orthopedics Diagnoses Primary osteoarthritis of right hip Procedures CONSULT TO ORTHOPAEDICS OFFICE/OUTPATIENT NEW HIGH MDM 60 MINUTES Mary Glover, POULTRY HATCHERY MANAGER.PROTEIN PURIFICATION SCIENTIST [address] [place] [address] Referral ID Status Reason Start Date Expiration Date V isits Requested Visits Authorized [id number] Closed PCP Requested Referral 02/02/2024 02/01/2025 1 1 Reason Comments PT Eval Reason Onset Date Comments Refill Request 03/14/2024 Reason Onset Date Comments Refill Request 03/16/2024 Reason Comments Same Day Appointment possible UTI x 1 da y, burning and frequency and blood Reason Comments 9 week 2 days post visit OA right hip Reason Comments New Pain 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 Onset Date Comments Refill Request 05/13/2024 Reason Comments Pre-Op Teaching Reason Comments Anesthesia Consult Reason Comments Radiology CT Specialty Diagnoses / Procedures Referred By Sandy t Referred To Contact [facility] Diagnoses Primary osteoarthritis of right hip Preoperative examination Procedures CT HIP WO IVCON RIGHT CT LOWER EXTREMITY W/O CONTRAST MATERIAL Eligio Gibbons MD [address] [place] [address] Phone: tel: fax: [place] [phone] Referral ID Status Reason Start Date Expiration Date V isits Requested Visits Authorized [id number] Closed Auto-Generate d Referral 05/11/2024 06/10/2025 1 1 Reason Onset Date Comments Care Coordination 06/08/2024 Reason Comments New Patient New Pt: consult for cardiac clearance for total hip replacementHx of HLD, HTN, VIECG 06/07/2024Pt reports no symptoms. A-flutter seen on ECG. Reason Comments Heart Rate Question Reason Comments Reminder Call Reason Comments Patient Question Medication question Reason Comments Patient Question Reason Onset Date Comments Population Health Navigation Outreach 07/13/2024 Ravin/Workbench/ACO Reason Comments Established Patient Hip Replacement Follow Up Pain Reason Comments Home Care Reason Comments Home Care MD to follow Reason Comments Home Care Confirmation call Reason Onset Date Comments Transition Of Care 07/25/2024 TCM [facility] 07-22-24- Initial outreach Reason Comments Home Care Edema Reason Comments Established Patient Follow Up Hip Replacement Reason Comments Home Care Low heart rate Care Teams (unrecognized sec tion and content) Marketing Communications Manager Relationship Specialty Start Date End Date Navdeep Ulloa MD [address] [place] [address] PCP - General Internal Medicine 07/18/20 Marketing Communications Manager Relationship Specialty Start Date End Date Navdeep Ulloa MD [address] [facility] [place] [address] PCP - General Internal Medicine 07/18/20 Marketing Communications Manager Relationship Specialty Start Date End Date Navdeep Ulloa MD [address] [facility] [place] [address] PCP - General Internal Medicine 07/18/20 Marketing Communications Manager Relationship Specialty Start Date End Date Navdeep Ulloa MD [address] [facility] [place] [address] PCP - General Internal Medicine 07/18/20 Marketing Communications Manager Relationship Specialty Start Date End Date Navdeep Ullao MD [address] [facility] [place] [address] PCP - General Internal Medicine 07/18/20 Marketing Communications Manager Relationship Specialty Start Date End Date Navdeep Ulloa MD [address] [facility] [place] [address] PCP - General Internal Medicine 07/18/20 Marketing Communications Manager Relationship Specialty Start Date End Date Navdeep Ulloa MD [address] [facility] [place] [address] PCP - General Internal Medicine 07/18/20 Marketing Communications Manager Relationship Specialty Start Date End Date Navdeep Ulloa MD [address] [facility] [place] [address] PCP - General Internal Medicine 07/18/20 Marketing Communications Manager Relationship Specialty Start Date End Date Navdeep Ulloa MD [address] [facility] [place] [address] PCP - General Internal Medicine 07/18/20 Marketing Communications Manager Relationship Specialty Start Date End Date Navdeep Ulloa MD [address] [facility] [place] [address] PCP - General Internal Medicine 07/18/20 Marketing Communications Manager Relationship Specialty Start Date End Date Navdeep Ulloa MD [address] [facility] [place] [address] PCP - General Internal Medicine 07/18/20 Marketing Communications Manager Relationship Specialty Start Date End Date Navdeep Ulloa MD [address] [facility] [place] [address] PCP - General Internal Medicine 07/18/20 Marketing Communications Manager Relationship Specialty Start Date End Date Navdeep Ulloa MD [address] [facility] [place] [address] PCP - General Internal Medicine 07/18/20 Marketing Communications Manager Relationship Specialty Start Date End Date Navdeep Ulloa MD [address] [facility] [place] [address] PCP - General Internal Medicine 07/18/20 Marketing Communications Manager Relationship Specialty Start Date End Date Navdeep Ulloa MD [address] [place] [address] PCP - General Internal Medicine 07/18/20 Marketing Communications Manager Relationship Specialty Start Date End Date Navdeep Ulloa MD [address] [place] [address] PCP - General Internal Medicine 07/18/20 Marketing Communications Manager Relationship Specialty Start Date End Date Navdeep Ulloa MD [address] [place] [address] PCP - General Internal Medicine 07/18/20 Marketing Communications Manager Relationship Specialty Start Date End Date Navdeep Ulloa MD [address] [place] [address] PCP - General Internal Medicine 07/18/20 Marketing Communications Manager Relationship Specialty Start Date End Date Navdeep Ulloa MD [address] [place] [address] PCP - General Internal Medicine 07/18/20 Marketing Communications Manager Relationship Specialty Start Date End Date Navdeep Ulloa MD [address] [place] [address] PCP - General Internal Medicine 07/18/20 Marketing Communications Manager Relationship Specialty Start Date End Date Navdeep Ulloa MD [address] [place] [address] PCP - General Internal Medicine 07/18/20 Mary Glover, POULTRY HATCHERY MANAGER.PROTEIN PURIFICATION SCIENTIST [address] [place] [address] Excavation Laborer Internal Medicine 02/15/24 Marketing Communications Manager Relationship Specialty Start Date End Date Navdeep Ulloa MD [address] [place] [address] PCP - General Internal Medicine 07/18/20 Mary Glover, POULTRY HATCHERY MANAGER.PROTEIN PURIFICATION SCIENTIST [address] [place] [address] Excavation Laborer Internal Medicine 02/15/24 Marketing Communications Manager Relationship Specialty Start Date End Date Navdeep Ulloa MD [address] [place] [address] PCP - General Internal Medicine 07/18/20 Mary Glover, POULTRY HATCHERY MANAGER.PROTEIN PURIFICATION SCIENTIST [address] [place] [address] Excavation Laborer Internal Medicine 02/15/24 Marketing Communications Manager Relationship Specialty Start Date End Date Navdeep Ulloa MD [address] [place] [address] PCP - General Internal Medicine 07/18/20 Mary Glover, POULTRY HATCHERY MANAGER.PROTEIN PURIFICATION SCIENTIST [address] [place] [address] Excavation Laborer Internal Medicine 02/15/24 Marketing Communications Manager Relationship Specialty Start Date End Date Navdeep Ulloa MD [address] [place] [address] PCP - General Internal Medicine 07/18/20 Mary Glover, POULTRY HATCHERY MANAGER.PROTEIN PURIFICATION SCIENTIST [address] [facility] [place] [address] Excavation Laborer Internal Medicine 02/15/24 Marketing Communications Manager Relationship Specialty Start Date End Date Navdeep Ulloa MD [address] [facility] [place] [address] PCP - General Internal Medicine 07/18/20 Mary Glover, POULTRY HATCHERY MANAGER.PROTEIN PURIFICATION SCIENTIST [address] [facility] [place] [address] Excavation Laborer Internal Medicine 02/15/24 Marketing Communications Manager Relationship Specialty Start Date End Date Navdeep Ulloa MD [address] [place] [address] PCP - General Internal Medicine 07/18/20 Mary Glover, POULTRY HATCHERY MANAGER.PROTEIN PURIFICATION SCIENTIST [address] [facility] [place] [address] Excavation Laborer Internal Medicine 02/15/24 Marketing Communications Manager Relationship Specialty Start Date End Date Navdeep Ulloa MD [address] [place] [address] PCP - General Internal Medicine 07/18/20 Mary Glover, POULTRY HATCHERY MANAGER.PROTEIN PURIFICATION SCIENTIST [address] [place] [address] Excavation Laborer Internal Medicine 02/15/24 Marketing Communications Manager Relationship Specialty Start Date End Date Navdeep Ulloa MD [address] [place] [address] PCP - General Internal Medicine 07/18/20 Mary Glover, POULTRY HATCHERY MANAGER.PROTEIN PURIFICATION SCIENTIST [address] [facility] [place] [address] Excavation Laborer Internal Medicine 02/15/24 Marketing Communications Manager Relationship Specialty Start Date End Date Navdeep Ulloa MD [address] [place] [address] PCP - General Internal Medicine 07/18/20 Mary Glover, POULTRY HATCHERY MANAGER.PROTEIN PURIFICATION SCIENTIST [address] [place] [address] Excavation Laborer Internal Medicine 02/15/24 SisEvaristo prieto, [facility] [address] [place] [address] Specialty Metal Riveter Orthopedics 05/11/24 08/03/24 Marketing Communications Manager Relationship Specialty Start Date End Date Navdeep Ulloa MD [address] [place] [address] PCP - General Internal Medicine 07/18/20 Mary Glover, POULTRY HATCHERY MANAGER.PROTEIN PURIFICATION SCIENTIST [address] [place] [address] Excavation Laborer Internal Medicine 02/15/24 SisEvaristo prieto, [facility] [address] [place] [address] Specialty Metal [facility]eter Orthopedics 05/11/24 08/03/24 Marketing Communications Manager Relationship Specialty Start Date End Date Navdeep Ulloa MD [address] [place] [address] PCP - General Internal Medicine 07/18/20 Mary Glover, POULTRY HATCHERY MANAGER.PROTEIN PURIFICATION SCIENTIST [address] [place] [address] Excavation Laborer Internal Medicine 02/15/24 Sissen, Evaristo, [facility] [address] [place] [address] Specialty Metal [facility]eter Orthopedics 05/11/24 08/03/24 Marketing Communications Manager Relationship Specialty Start Date End Date Navdeep Ulloa MD [address] [place] [address] PCP - General Internal Medicine 07/18/20 Mary Glover, POULTRY HATCHERY MANAGER.PROTEIN PURIFICATION SCIENTIST [address] [place] [address] Excavation Laborer Internal Medicine 02/15/24 Jesse Patein, [facility] [address] [place] [address] Specialty Metal [employer] Orthopedics 05/11/24 08/03/24 Marketing Communications Manager Relationship Specialty Start Date End Date Navdeep Ulloa MD [address] [place] [address] PCP - General Internal Medicine 07/18/20 Mary Glover, POULTRY HATCHERY MANAGER.PROTEIN PURIFICATION SCIENTIST [address] [place] [address] Excavation Laborer Internal Medicine 02/15/24 Sissen, Evaristo, [facility] [address] [place] [address] Specialty Metal [facility] Orthopedics 05/11/24 08/03/24 Marketing Communications Manager Relationship Specialty Start Date End Date Navdeep Ulloa MD [address] [place] [address] PCP - General Internal Medicine 07/18/20 Mary Glover, POULTRY HATCHERY MANAGER.PROTEIN PURIFICATION SCIENTIST [address] [place] [address] Excavation Laborer Internal Medicine 02/15/24 SisJesse prietoin, [facility] [address] [place] [address] Specialty Metal [facility] Orthopedics 05/11/24 08/03/24 Marketing Communications Manager Relationship Specialty Start Date End Date Navdeep Ulloa MD [address] [place] [address] PCP - General Internal Medicine 07/18/20 Mary Glover, POULTRY HATCHERY MANAGER.PROTEIN PURIFICATION SCIENTIST [address] [place] [address] Excavation Laborer Internal Medicine 02/15/24 Evaristo Pate, [facility] [address] [place] [address] Specialty Metal [employer] Orthopedics 05/11/24 08/03/24 Marketing Communications Manager Relationship Specialty Start Date End Date Navdeep Ulloa MD [address] [place] [address] PCP - General Internal Medicine 07/18/20 Mary Glover, POULTRY HATCHERY MANAGER.PROTEIN PURIFICATION SCIENTIST [address] [place] [address] Excavation Laborer Internal Medicine 02/15/24 Evaristo Pate, [facility] [address] [place] [address] Specialty Metal [facility] Orthopedics 05/11/24 08/03/24 Marketing Communications Manager Relationship Specialty Start Date End Date Navdeep Ulloa MD [address] [place] [address] PCP - General Internal Medicine 07/18/20 Mary Glover, POULTRY HATCHERY MANAGER.PROTEIN PURIFICATION SCIENTIST [address] [place] [address] Excavation Laborer Internal Medicine 02/15/24 Evaristo Pate, [facility] [address] [place] [address] Specialty Metal [employer] Orthopedics 05/11/24 08/03/24 Marketing Communications Manager Relationship Specialty Start Date End Date Navdeep Ulloa MD [address] [place] [address] PCP - General Internal Medicine 07/18/20 Mary Glover, POULTRY HATCHERY MANAGER.PROTEIN PURIFICATION SCIENTIST [address] [place] [address] Excavation Laborer Internal Medicine 02/15/24 Evaristo Pate, [facility] [address] [place] [address] Specialty Metal [employer]eter Orthopedics 05/11/24 08/03/24 Marketing Communications Manager Relationship Specialty Start Date End Date Navdeep Ulloa MD [address] [place] [address] PCP - General Internal Medicine 07/18/20 Mary Glover, POULTRY HATCHERY MANAGER.PROTEIN PURIFICATION SCIENTIST [address] [place] [address] Excavation Laborer Internal Medicine 02/15/24 Evaristo Pate, [facility] [address] [place] [address] Specialty Metal [facility] Orthopedics 05/11/24 08/03/24 Marketing Communications Manager Relationship Specialty Start Date End Date Navdeep Ulloa MD [address] [place] [address] PCP - General Internal Medicine 07/18/20 Mary Glover, POULTRY HATCHERY MANAGER.PROTEIN PURIFICATION SCIENTIST [address] [place] [address] Excavation Laborer Internal Medicine 02/15/24 Evaristo Pate, [facility] [address] [place] [address] Specialty Metal [facility] Orthopedics 05/11/24 08/03/24 Marketing Communications Manager Relationship Specialty Start Date End Date Navdeep Ulloa MD [address] [place] [address] PCP - General Internal Medicine 07/18/20 Mary Glover, POULTRY HATCHERY MANAGER.PROTEIN PURIFICATION SCIENTIST [address] [place] [address] Excavation Laborer Internal Medicine 02/15/24 Evaristo Pate, [facility] [address] [place] [address] Specialty Metal [employer] Orthopedics 05/11/24 08/03/24 Marketing Communications Manager Relationship Specialty Start Date End Date Navdeep Ulloa MD [address] [place] [address] PCP - General Internal Medicine 07/18/20 Mary Glover, POULTRY HATCHERY MANAGER.PROTEIN PURIFICATION SCIENTIST [address] [place] [address] Excavation Laborer Internal Medicine 02/15/24 Evaristo Pate, [facility] [address] [place] [address] Specialty Metal [facility] Orthopedics 05/11/24 08/03/24 Marketing Communications Manager Relationship Specialty Start Date End Date Navdeep Ulloa MD [address] [place] [address] PCP - General Internal Medicine 07/18/20 Mary Glover, POULTRY HATCHERY MANAGER.PROTEIN PURIFICATION SCIENTIST [address] [place] [address] Excavation Laborer Internal Medicine 02/15/24 Jesse Patein, [facility] [address] [place] [address] Specialty Metal [employer] Orthopedics 05/11/24 08/03/24 Marketing Communications Manager Relationship Specialty Start Date End Date Navdeep Ulloa MD [address] [place] [address] PCP - General Internal Medicine 07/18/20 Mary Glover, POULTRY HATCHERY MANAGER.PROTEIN PURIFICATION SCIENTIST [address] [place] [address] Excavation Laborer Internal Medicine 02/15/24 Evaristo Pate, [facility] [address] [place] [address] Specialty Metal [employer]eter Orthopedics 05/11/24 08/03/24 Eligio Gibbons MD [address] [place] [address] Home Care Provider Orthopedics 07/01/24 Eligio Gibbons MD [address] [place] [address] Referring Orthopedics 07/01/24 Marketing Communications Manager Relationship Specialty Start Date End Date Navdeep Ulloa MD [address] [place] [address] PCP - General Internal Medicine 07/18/20 Mary Glover, POULTRY HATCHERY MANAGER.PROTEIN PURIFICATION SCIENTIST [address] [place] [address] Excavation Laborer Internal Medicine 02/15/24 Evaristo Pate, [facility] [address] [place] [address] Specialty Metal [employer]eter Orthopedics 05/11/24 08/03/24 Eligio Gibbons MD [address] [place] [address] Home Care Provider Orthopedics 07/01/24 Eligio Gibbons MD [address] [place] [address] Referring Orthopedics 07/01/24 Marketing Communications Manager Relationship Specialty Start Date End Date Navdeep Ulloa MD [address] [place] [address] PCP - General Internal Medicine 07/18/20 Mary Glover, POULTRY HATCHERY MANAGER.PROTEIN PURIFICATION SCIENTIST [address] [place] [address] Excavation Laborer Internal Medicine 02/15/24 Evaristo Pate, [facility] [address] [place] [address] Specialty Metal Riveter Orthopedics 05/11/24 08/03/24 Eligio Gibbons MD [address] [place] [address] Home Care Provider Orthopedics 07/01/24 Eligio Gibbons MD [address] [place] [address] Referring Orthopedics 07/01/24 Marketing Communications Manager Relationship Specialty Start Date End Date Navdeep Ulloa MD [address] [place] [address] PCP - General Internal Medicine 07/18/20 Mary Glover, POULTRY HATCHERY MANAGER.PROTEIN PURIFICATION SCIENTIST [address] [place] [address] Excavation Laborer Internal Medicine 02/15/24 Evaristo Pate, [facility] [address] [place] [address] Specialty Metal [employer]eter Orthopedics 05/11/24 08/03/24 Eligio Gibbons MD [address] [place] [address] Home Care Provider Orthopedics 07/01/24 Eligio Gibbons MD [address] [place] [address] Referring Orthopedics 07/01/24 Marketing Communications Manager Relationship Specialty Start Date End Date Navdeep Ulloa MD [address] [place] [address] PCP - General Internal Medicine 07/18/20 Mary Glover, POULTRY HATCHERY MANAGER.PROTEIN PURIFICATION SCIENTIST [address] [place] [address] Excavation Laborer Internal Medicine 02/15/24 [facility]isto Paet, [facility] [address] [place] [address] Specialty Metal Riveter Orthopedics 05/11/24 08/03/24 Eligio Gibbons MD [address] [place] [address] Home Care Provider Orthopedics 07/01/24 Eligio Gibbons MD [address] [place] [address] Referring Orthopedics 07/01/24 Marketing Communications Manager Relationship Specialty Start Date End Date Navdeep Ulloa MD [address] [place] [address] PCP - General Internal Medicine 07/18/20 Mary Glover, POULTRY HATCHERY MANAGER.PROTEIN PURIFICATION SCIENTIST [address] [place] [address] Excavation Laborer Internal Medicine 02/15/24 Evaristo Pate, [facility] [address] [place] [address] Specialty Metal Riveter Orthopedics 05/11/24 08/03/24 Eligio Gibbons MD [address] [place] [address] Home Care Provider Orthopedics 07/01/24 Eligio Gibbons MD [address] [place] [address] Referring Orthopedics 07/01/24 Marketing Communications Manager Relationship Specialty Start Date End Date Navdeep Ulloa MD [address] [place] [address] PCP - General Internal Medicine 07/18/20 Mary Glover, POULTRY HATCHERY MANAGER.PROTEIN PURIFICATION SCIENTIST [address] [place] [address] Excavation Laborer Internal Medicine 02/15/24 Evaristo Pate, [facility] [address] [place] [address] Specialty Metal Riveter Orthopedics 05/11/24 08/03/24 Eligio Gibbons MD [address] [place] [address] Home Care Provider Orthopedics 07/01/24 Eligio Gibbons MD [address] [place] [address] Referring Orthopedics 07/01/24 Marketing Communications Manager Relationship Specialty Start Date End Date Navdeep Ulloa MD [address] [place] [address] PCP - General Internal Medicine 07/18/20 Mary Glover, POULTRY HATCHERY MANAGER.PROTEIN PURIFICATION SCIENTIST [address] [place] [address] Excavation Laborer Internal Medicine 02/15/24 Evaristo Pate, [facility] [address] [place] [address] Specialty Metal Riveter Orthopedics 05/11/24 08/03/24 New Bear Chi [address] [place] [address] Referring Gerontology 07/21/24 Navdeep Ulloa MD [address] [place] [address] Home Care Provider Internal Medicine 07/21/24 Marketing Communications Manager Relationship Specialty Start Date End Date Navdeep Ulloa MD [address] [place] [address] PCP - General Internal Medicine 07/18/20 Mary Glover, POULTRY HATCHERY MANAGER.PROTEIN PURIFICATION SCIENTIST [address] [place] [address] Excavation Laborer Internal Medicine 02/15/24 Evaristo Pate, [facility] [address] [place] [address] Specialty Metal Riveter Orthopedics 05/11/24 08/03/24 New Bear Chi [address] [place] [address] Referring Gerontology 07/21/24 Navdeep Ulloa MD [address] [place] [address] Home Care Provider Internal Medicine 07/21/24 Team Status: Active Member Role Status Dates Dr. Parth Oropeza III, MD Family Provider Active Dr. Navdeep Ulloa MD Primary Care Provider Active Team Status: Inactive Member Role Status Dates Dr. New Bear MD Admit Provider Active Star t: July 06, 2024 End: July 22, 2024 Dr. New Bear MD Attending Provider Active Start: July 06, 2024 End: July 22, 2024 Dr. Navdeep Ulloa MD Primary Care Provider Active Start: July 06, 2024 End: July 22, 2024 Team Status: Active Member Role Status Dates Dr. Navdeep Ulloa MD Primary Care Provider Active Start: July 08, 2024 End: July 08, 2024 Dr. Olga Galvez MD Attending Provider Active Start: July 08, 2024 End: July 08, 2024 Dr. New Bear MD Referring Provider Active Start: July 08, 2024 End: July 08, 2024 Team Status: Active Member Role Status Dates Dr. Navdeep Ulloa MD Primary Care Provider Active Start: July 14, 2024 End: July 14, 2024 Dr. Rosalio Mena MD Attending Provider Active Start: July 14, 2024 End: July 14, 2024 Dr. New Bear MD Referring Provider Active Start: July 14, 2024 End: July 14, 2024 Marketing Communications Manager Relationship Specialty Start Date End Date Navdeep Ulloa MD [address] [place] [address] PCP - General Internal Medicine 07/18/20 Mary Glover, POULTRY HATCHERY MANAGER.PROTEIN PURIFICATION SCIENTIST [address] [place] [address] Excavation Laborer Internal Medicine 02/15/24 Evaristo Pate [facility] [address] [place] [address] Specialty Metal [employer] Orthopedics 05/11/24 08/03/24 New Bear Chi [address] [place] [address] Referring Gerontology 07/21/24 Navdeep Ulloa MD [address] [place] [address] Home Care Provider Internal Medicine 07/21/24 Pradip Vizcaino, PT [address] [place] [address] Regional Merchandising Manager Post Acute Care 07/22/24 Marketing Communications Manager Relationship Specialty Start Date End Date Navdeep Ulloa MD [address] [place] [address] PCP - General Internal Medicine 07/18/20 Mary Glover, POULTRY HATCHERY MANAGER.PROTEIN PURIFICATION SCIENTIST [address] [place] [address] Excavation Laborer Internal Medicine 02/15/24 Evaristo Pate [facility] [address] [place] [address] Specialty Metal Riveter Orthopedics 05/11/24 08/03/24 New Bear Chi [address] [place] [address] Referring Gerontology 07/21/24 Navdeep Ulloa MD [address] [place] [address] Home Care Provider Internal Medicine 07/21/24 Pradip Vizcaino, PT [address] [place] [address] Regional Merchandising Manager Post Acute Care 07/22/24 Wanda Costa, RN [address] [place] [address] Primary Care Humanities Professor Internal Medicine 07/25/24 07/25/24 Marketing Communications Manager Relationship Specialty Start Date End Date Navdeep Ulloa MD [address] [place], [place] [address]991 PCP - General Internal Medicine 07/18/20 Mary Glover, POULTRY HATCHERY MANAGER.PROTEIN PURIFICATION SCIENTIST [address] [place], [place] [address] Excavation Laborer Internal Medicine 02/15/24 [facility] [address] [place] [address] Specialty Metal Riveter Orthopedics 05/11/24 08/03/24 New Bear Chi [address] [address] Referring Gerontology 07/21/24 Navdeep Ulloa MD [address] [place] [address] Home Care Provider Internal Medicine 07/21/24 Pradip Vizcaino, PT [address] [place] [address] Regional Merchandising Manager Post Acute Care 07/22/24 Wanda Costa, RN [address] [place] [address] Primary Care Humanities Professor Internal Medicine 07/25/24 07/25/24 Marketing Communications Manager Relationship Specialty Start Date End Date Navdeep Ulloa MD [address] [place], [place] [address]81 PCP - General Internal Medicine 07/18/20 Mary Glover, POULTRY HATCHERY MANAGER.PROTEIN PURIFICATION SCIENTIST [address] [place] [address] Excavation Laborer Internal Medicine 02/15/24 Evaristo Pate, [facility] [address] [place] [address] Specialty Metal [employer]eter Orthopedics 05/11/24 08/03/24 New Bear Chi [address] [place] [address] Referring Gerontology 07/21/24 Navdeep Ulloa MD [address] [place] [address] Home Care Provider Internal Medicine 07/21/24 Pradip Vizcaino, PT [address] [place] [address] Regional Merchandising Manager Post Acute Care 07/22/24 Marketing Communications Manager Relationship Specialty Start Date End Date Navdeep Ulloa MD [address] [place] [address] PCP - General Internal Medicine 07/18/20 Mary Glover, POULTRY HATCHERY MANAGER.PROTEIN PURIFICATION SCIENTIST [address] [place] [address] Excavation Laborer Internal Medicine 02/15/24 Evaristo Pate, [facility] [address] [place] [address] Specialty Metal Riveter Orthopedics 05/11/24 08/03/24 New Bear Chi [address] [place] [address] Referring Gerontology 07/21/24 Navdeep Ulloa MD [address] [place] [address] Home Care Provider Internal Medicine 07/21/24 Pradip Vizcaino, PT [address] [place] [address] Regional Merchandising Manager Post Acute Care 07/22/24 Marketing Communications Manager Relationship Specialty Start Date End Date Navdeep Ulloa MD [address] [place] [address] PCP - General Internal Medicine 07/18/20 Mary Glover, POULTRY HATCHERY MANAGER.PROTEIN PURIFICATION SCIENTIST [address] [place] [address] Excavation Laborer Internal Medicine 02/15/24 [facility] [address] [place] [address] Specialty Metal Riveter Orthopedics 05/11/24 08/03/24 New Bear Chi [address] [place] [address] Referring Gerontology 07/21/24 Navdeep Ulloa MD [address] [place] [address] [place] [address] Home Care Provider Internal Medicine 07/21/24 Pradip Vizcaino, PT [address] [facility] [place] [address] Regional Merchandising Manager Post Acute Care 07/22/24 Marketing Communications Manager Relationship Specialty Start Date End Date Navdeep Ulloa MD [address] [place] [address] PCP - General Internal Medicine 07/18/20 Mary Glover, POULTRY HATCHERY MANAGER.PROTEIN PURIFICATION SCIENTIST [address] [place] [address] Excavation Laborer Internal Medicine 02/15/24 [place] Chi [address] [place], [place] [id number] Referring Gerontology 07/21/24 Navdeep Ulloa MD [address] [place], [place] [address] Home Care Provider Internal Medicine 07/21/24 Pradip Vizcaino, PT [address] [place] [address] Regional Merchandising Manager Post Acute Care 07/22/24 Team Status: Inactive Member Role Status Dates Dr. Navdeep Ulloa MD Primary Care Provider Active Start: August 11, 2024 End: August 11, 2024 Dr. Navdeep Ulloa MD Referring Provider Active Start: August 11, 2024 End: August 11, 2024 Dr. Rosalio Mena MD Attending Provider Active Start: August 11, 2024 End: August 11, 2024 Marketing Communications Manager Relationship Specialty Start Date End Date Navdeep Ulloa MD [address] [place], [place] [address] PCP - General Internal Medicine 07/18/20 Mary Glover, POULTRY HATCHERY MANAGER.PROTEIN PURIFICATION SCIENTIST [address] [place], [place] [address] Excavation Laborer Internal Medicine 02/15/24 [place] Chi [address] [id number] Referring Gerontology 07/21/24 Navdeep Ulloa MD [address] [place], [place] [id number] Home Care Provider Internal Medicine 07/21/24 Marketing Communications Manager Relationship Specialty Start Date End Date Navdeep Ulloa MD [address] [place], [place] [id number] PCP - General Internal Medicine 07/18/20 Mary Glover, POULTRY HATCHERY MANAGER.PROTEIN PURIFICATION SCIENTIST [address] [place], [place] [address] Excavation Laborer Internal Medicine 02/15/24 [place] Bear Akhil [address] [phone] Referring Gerontology 07/21/24 Navdeep Ulloa MD [address] [place], [place] [address] Home Care Provider Internal Medicine 07/21/24 Pradip Vizcaino, PT [address] [place], [place] [id number] Regional Merchandising Manager Post Acute Care 07/22/24 Team Status: Active Member Role Status Dates Dr. Navdeep Ulloa MD Primary Care Provider Active Team Status: Inactive Member Role Status Dates Dr. Navdeep Ulloa MD Primary Care Provider Active Start: August 17, 2024 End: August 17, 2024 Dr. Rosalio Mena MD Attending Provider Active Start: August 17, 2024 End: August 17, 2024 Dr. Rosalio Mena MD Referring Provider Active Start: August 17, 2024 End: August 17, 2024 Marketing Communications Manager Relationship Specialty Start Date End Date Navdeep Ulloa MD [address] [place] [address] PCP - General Internal Medicine 07/18/20 Mary Glover, POULTRY HATCHERY MANAGER.PROTEIN PURIFICATION SCIENTIST [address] [place], [place] [address] Excavation Laborer Internal Medicine 02/15/24 Evaristo Pate [facility] [address] [place] [address] Specialty Metal Riveter Orthopedics 3/5/25 5/28/25 Eligio Gibbons MD [address] [place] [address] Home Care Provider Orthopedics 07/01/24 07/20/24 Eligio Gibbons MD [address] [place] [address] Referring Orthopedics 07/01/24 07/20/24 [place] Chi [address] [phone] Referring Gerontology 07/21/24 Navdeep Ulloa MD [address] [place] [address] Home Care Provider Internal Medicine 07/21/24 Pradip Vizcaino, PT [address] [place] [address] Regional Merchandising Manager Post Acute Care 07/22/24 08/15/24 Wanda Costa, RN [address] [place] [address] Primary Care Humanities Professor Internal Medicine 07/25/24 07/25/24 FOR RECORDS PERTAINING TO PATIENTS WHO ARE OR HAVE BEEN ENROLLED IN A CHEMICAL DEPENDENCY/SUBSTANCEABUSE PROGRAM, SOME INFORMATION MAY BE OMITTED. This clinical summary was aggregated from multiple sources. Caution should be exercised in using it in the provision of clinical care. This summary normalizes information from multiple sources, and as a consequence, information in this document may materially change the coding, format and clinical context of patient data. In addition, data may be omitted in some cases. CLINICAL DECISIONS SHOULD BE BASED ON THE PRIMARY CLINICAL RECORDS. [facility] [employer] [facility]. provides no warranty or guarantee of the accuracy or completeness of information in this document.
[2024-08-25 18:24] LABS: Anion Gap 11 (5-15); BUN 24 mg/dL (4-19); Calcium,Total 10.1 mg/dL (7.6-11.0); Carbon Dioxide 27.8 mmol/L (21.0-32.0); Chloride 100 mmol/L (98-108); Creatinine, Serum 1.06 mg/dL (0.70-1.20); EST Glomerular Filtration Rate 55 (>60); Glucose 111 mg/dL (70-99); Potassium 4.3 mmol/L (3.3-5.1); Pro- Brain NATRIURETIC PEPTIDE 1232 pg/mL (<=900); Sodium Level 139 mmol/L (133-145)
[2024-08-25 18:42] LABS: Troponin T High Sensitivity 25 ng/L (<=14)
[2024-08-25 18:50] VITALS: O2SAT 97
[2024-08-25 19:00] VITALS: BP 133/58; PULSE 46; RESP 18; O2SAT 98
[2024-08-25] MEDS: Furosemide 40 MG/4 ML Vial IV (19:03)
[2024-08-25 19:23] VITALS: BP 133/58; PULSE 46; RESP 18; TEMP 36.8; O2SAT 98
[2024-08-25 19:38] LABS: Troponin T High Sens 2 HR 23 ng/L (<=14)
== END 2024-08-25 19:49 | disposition home or self-care (01) ==
PROVIDERS: Physician Assistant; Emergency Provider Surgery; PCP Internal Medicine; Referring Provider Surgery; Visit Provider Surgery
DX: R06.00 Dyspnea, unspecified (principal); I48.91 Unspecified atrial fibrillation; R60.0 Localized edema; D64.9 Anemia, unspecified; R00.1 Bradycardia, unspecified; I45.10 Unspecified right bundle-branch block; R79.89 Other specified abnormal findings of blood chemistry; I10 Essential (primary) hypertension; G47.33 Obstructive sleep apnea (adult) (pediatric); Z79.01 Long term (current) use of anticoagulants; Z96.641 Presence of right artificial hip joint; Z79.899 Other long term (current) drug therapy
CPT/HCPCS: 71046; 80048; 83880; 84484; 85025; 93005; 96374; 99284; A4216; J1938

== ENCOUNTER 2024-11-17 09:49 | Observation (INO) | payer MEDICARE, OTHER, SELFPAY ==
--- NOTE | 2024-11-02 14:15 | RAD_ITS ---
PROCEDURE: CHEST PA AND LATERAL 11/02/2024 REASON FOR EXAM: PREPROCEDURE TECHNIQUE: CHEST PA AND LATERAL COMPARISON: 08/25/24 FINDINGS: Mild pulmonary vascular congestion. No focal consolidation. No pleural effusion or pneumothorax. Cardiac silhouette is within normal limits. No acute fractures. RAD/Chest PA and Lateral IMPRESSION: Mild pulmonary vascular congestion. No focal consolidation. Reading Location: [facility]
[2024-11-02 14:32] LABS: Mucous, Urine 0 SEEN /hpf (<or=2+)
[2024-11-02 15:32] LABS: Hematocrit 29.7 % (37-47); Hemoglobin 9.7 g/dL (12.0-15.0); Mean Corp Hgb Conc 32.7 g/dL (32-36); Mean Corpuscular Volume 90.8 fL (81-99); Mean Platelet Vol. 10.5 fl (6.2-12.0); Platelet Count 372 K/mm3 (150-450); RBC Distribution Width CV 13.6 % (11.6-14.6); RBC Distribution Width SD 43.8 fl (35.1-43.9); Red Blood Count 3.27 M/mm3 (4.2-5.4); White Blood Count 16.5 K/mm3 (4.4-11.0)
[2024-11-02 15:42] LABS: Prothrombin Time (Protime)PT. 15.9 SECONDS (11.7-14.9)
[2024-11-02 15:50] LABS: Anion Gap 10 (5-15); BUN 26 mg/dL (4-19); BUN/Creat Ratio 24.4 RATIO (10-20); Calcium,Total 10.2 mg/dL (7.6-11.0); Carbon Dioxide 30.7 mmol/L (21.0-32.0); Chloride 99 mmol/L (98-108); Glucose 118 mg/dL (70-99); Potassium 4.0 mmol/L (3.3-5.1)
[2024-11-02 15:54] LABS: Color, Urine Yellow (Yellow); Glucose, Dipstick Normal (Normal); Ketone-Dipstick Negative (Negative); Leukocyte Esterase-Dipstick 25 /ul (Negative); Nitrite-Dipstick Negative (Negative); Occult Blood-Urine Negative /ul (Negative); Protein-Dipstick Negative (Negative); Specific Gravity, Urine 1.010 (1.002-1.030); Urine Bilirubin Dipstick Negative (Negative)
[2024-11-02 16:44] LABS: Squamous Epithelial Cells - UA 5-10 SEEN /hpf (5-10)
[2024-11-02 16:45] LABS: Red Blood Cells-Urine 0-5 SEEN /hpf (0-5)
[2024-11-16 12:29] VITALS: BMI 33.9
[2024-11-17] VITALS (13 sets, daily range): BP systolic 100–125; BP diastolic 61–85; PULSE 73–110; RESP 15–25; TEMP 36.6–36.8; O2SAT 96–100
--- OUTSIDE RECORDS SUMMARY | 2024-11-17 07:27 | XMS RPT_ITS | CCD ---
Author Organization [facility] ion [facility] Care Team Providers Care Soliciting Freight Agent Name Role Phone Alfred Oropeza MD Unavailable Bridgett RODRIGUEZ, Keya Guerrero Unavailable Navdeep Holcomb MD Primary Care Provider Navdeep Holcomb MD Primary Care Provider Navdeep Holcomb MD Primary Care Provider [phone] Zhang PANIAGUA, Navdeep Obrien Primary Care Provider [phone] Ludy 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, Mary M Unavailable Sissen PSS, Evaristo Unavailable Unavailable Eligio Bergeron MD Unavailable Eligio Bergeron MD Unavailable New Bear Chi Unavailable Navdeep Holcomb MD Unavailable Dr. New Bear MD, Chi Admit Provider Chema PANIAGUA, Dr. New Landaverde Attending Provider Dr. Navdeep Holcomb MD Primary Care Provider Dr. Olga Galvez MD Attending Provider Chema PANIAGUA, Dr. New Landaverde Referring Provider Dr. Rosalio Mena MD Attending Provider Charis PT, Pradip Unavailable Julissa RN, Wanda Unavailable Zhang PANIAGUA, Dr. Sethi Referring Provider Lenny PANIAGUA, Dr. Barksdale Attending Provider Rajesh PANIGAUA, Dr. Santamaria Referring Provider Rubio PANIAGUA, Eligio Barrett Unavailable Rubio PANIAGUA, Eligio Barrett Unavailable Charis PT, Pradip Unavailable [facility] , Dr. Steen Referring Provider [facility] , Dr. Steen Emergency Provider Ty PANIAGUA, Dr. Del Angel Attending Provider [phone] [facility], Dr. Steen Attending Provider Marsha Cunningham Attending Provider Marsha Cunningham Referring Provider Burke PANIAGUA, Dr. Solorzano Attending Provider Juan Valreo Attending Provider ZHANG, VANDANA Referring Unavailable HOLCOMB, VANDANA Primary Care Unavailable JAMAL LARIOS Referring Unavailable HOLCOMB, VANDANA Primary Care Unavailable SCARCEELISEAELIGIO Referring Unavail able HOLCOMB, VANDANA Primary Care Unavailable SCARCEELISEAELIGIO Referring Unavail able HOLCOMB, VANDANA Primary Care Unavailable SCARCELLAELIGIO Referring Unavail able HOLCOMB, VANDANA Primary Care Unavailable SCARCELLAELIGIO Referring Unavail able HOLCOMB, VANDANA Primary Care Unavailable DOOKHAN, TATY Referring Unavailable HOLCOMB, VANDANA Primary Care Unavailable DOOKHAN, TATY Referring Unavailable HOLCOMB, VANDANA Primary Care Unavailable DOOKHAN, TATY Referring Unavailable HOLCOMB, VANDANA Primary Care Unavailable SCARCELLAELIGIO Referring Unavail able HOLCOMB, VANDANA Primary Care Unavailable ELIGIO BERGERON Admitting Unavail able ELIGIO BERGERON Attending Unavail able HOLCOMB, VANDANA Primary Care Unavailable TATY GREEN Unavailable JAMAL LARIOS Referring Unavailable HOLCOMB, VANDANA Primary Care Unavailable HOLCOMB, VANDANA Primary Care Unavailable HOLCOMB, VANDANA Referring Unavailable HOLCOMB, VANDANA Primary Care Unavailable JAMAL LARIOS Attending Unavailable ZHANG, VANDANA Primary Care Unavailable ALEXEI, BRYAN Referring Unavailable HOLCOMB, VANDANA Primary Care Unavailable HOLCOMB, VANDANA Attending Unavailable HOLCOMB, VANDANA Primary Care Unavailable BETHANY HODGES Attending Unavailable ZHANG, VANDANA Primary Care Unavailable ALEXEI, BRYAN Referring Unavailable ELIGIO BERGERON Attending Unavail able HOLCOMB, VANDANA Primary Care Unavailable HOLCOMB, NAVDEEP Obrien Attending Unavailable ZHANG, VANDANA Primary Care Unavailable HOLCOMB, NAVDEEP Obrien Referring Unavailable ZHANG, VANDANA Primary Care Unavailable MARY BOSTON Referring Unavailable BRYAN LINDA Attending Unavailable ZHANG, VANDANA Primary Care Unavailable MARY BOSTON Referring Unavailable ZHANG, VANDANA Primary Care Unavailable JAMAL LARIOS Attending Unavailable ZHANG, NAVDEEP Obrien Primary Care Unavailable ALEXEI, BRYAN Referring Unavailable PEGGY PHILLIPS Attending Unavailable HOLCOMB, NAVDEEP Obrien Primary Care Unavailable ALEXEI, BRYAN Referring Unavailable PEGGY PHILLIPS Attending Unavailable ZHANG, VANDANA Primary Care Unavailable ALEXEI, BRYAN Referring Unavailable ZHANG, VANDANA Primary Care Unavailable ZHANG, NAVDEEP Obrien Attending Unavailable HOLCOMB, VANDANA Primary Care Unavailable HOLCOMB, NAVDEEP Obrien Attending Unavailable ZHANG, VANDANA Primary Care Unavailable JAMAL LARIOS Attending Unavailable ZHANG, VANDANA Primary Care Unavailable BRYAN LINDA Referring Unavailable PEGGY PHILLIPS Attending Unavailable ZHAGN, VANDANA Primary Care Unavailable ELIGIO BERGERON Attending Unavail able HOLCOMB, VANDANA Primary Care Unavailable HOLCOMB, VANDANA Primary Care Unavailable ELIGIO BERGERON Referring Unavail able JAMAL LARIOS Attending Unavailable ZHANG, NAVDEEP Obrien Primary Care Unavailable HOLOCMB, VANDANA Primary Care Unavailable HOLCOMB, NAVDEEP Obrien Attending Unavailable HOLCOMB, VANDANA Primary Care Unavailable HOLCOMB, VANDANA Primary Care Unavailable TATY GREEN Attending Unavailable HOLCOMB, VANDANA Primary Care Unavailable HOLCOMB, VANDANA Referring Unavailable HOLCOMB, VANDANA Primary Care Unavailable HOLCOMB, VANDANA Attending Unavailable HOLCOMB, VANDANA Primary Care Unavailable BRYAN LINDA Attending Unavailable HOLCOMB, VANDNAA Primary Care Unavailable MARY BOSTON Attending Unavailable HOLCOMB, VANDANA Primary Care Unavailable MARY BOSTON Referring Unavailable Rajesh, Rosalio Referring Unavailable Rajesh, Rosalio Attending Unavailable Holcomb, Navdeep Primary Care Unavailable Rajesh, Rosalio Referring Unavailable Rajesh, Rosalio Attending Unavailable Holcomb, Navdeep Primary Care Unavailable Klusty-Manuel Enio Referring Unavailabl e Klusty-ManuelOmegael Attending Unavailabl e Holcomb, Navdeep Primary Care Unavailable Chema, New Chi Attending Unavailable Chema, New Chi Admitting Unavailable Holcomb, Navdeep Primary Care Unavailable Chema, New Chi Referring Unavailable Rajesh, Rosalio Attending Unavailable Holcomb, Navdeep Primary Care Unavailable Rajesh, Rosalio Referring Unavailable Bean Crawford Attending Unavailable Holcomb, Navdeep Primary Care Unavailable Holcomb, Navdeep Primary Care Unavailable Holcomb, Navdeep Referring Unavailable Marsha Cunningham Attending Unavail able Rashad Turk Attending Unavailable Holcomb, Navdeep Primary Care Unavailable Holcomb, Navdeep Referring Unavailable Preeti Merino Attending Unavailable Holcomb, Navdeep Primary Care Unavailable Holcomb, Navdeep Referring Unavailable Juan Beatty Attending Unavailable Holcomb, Navdeep Primary Care Unavailable Holcomb, Navdeep Referring Unavailable Rajesh, Rosalio Attending Unavailable Holcomb, Navdeep Primary Care Unavailable Holcomb, Navdeep Referring Unavailable Jeromy Andino Attending Unavailable Holcomb, Navdeep Primary Care Unavailable Marsha Cunningham Referring Unavail able Chema, New Chi Referring Unavailable Olga Galvez Attending Unavailable Holcomb, Navdeep Primary Care Unavailable Holcomb, Navdeep Primary Care Unavailable Marsha Cunningham Referring Unavail able Marsha Cunningham Attending Unavail able SatRashad jones Referring Unavailable SatChristiano jonesa Attending Unavailable Holcomb, Navdeep Primary Care Unavailable Allergies Allergy Classification Reported Allergen(s) Allergy Type Date of Onset Reaction(s) Facility Acetaminophen / HYDROcodone (1 source) Acetaminophen / HYDROcodone Drug Allergy 1 Other: See Comments [facility] (20 sources) Acetaminophen / HYDROcodone; Translations: [HYDROCODONE-ACET AMINOPHEN] Drug Allergy 1 Other: See Comments [facility] Work Phone: (4 sources) HYDROcodone Drug Allergy [address] [facility] (1 source) HYDROcodone Drug Allergy 5 [facility] [place] [facility] Medications Current Medications Medication Drug Class(es) Dates Sig (Normalized) Sig (Original) acetaminophen 500 mg oral tablet (20 sources) Start: 07-05-2024 End: 08-10-2024 take 2 tablets by mouth every eight hours as needed acetaminophen (TYLENOL) 500 mg tablet Take 2 tablets by mouth every 8 hours as needed for pain. 07/05/2024 Active acetaminophen 500 mg / diphenhydrAMINE hydrochloride 25 mg oral tablet (20 sources) Histamine-1 Receptor Antagonist Start: 01-24-2022 diphenhydrAMINE-Shalonda taminophen (TYLENOL PM EXTRA STRENGTH) 25-500 mg tab [...] oral tablet (20 sources) Vitamin C Start: 09-13-2024 take 2 tablets by mouth once daily Ascorbic Acid (Vitamin C) 500 mg tablet Active 1000 mg PO daily September 13, 2024 9:23am Start: 07-05-2024 End: 10-04-2024 take 1 tablet by mouth twice daily Ascorbic Acid (Vitamin C) 500 mg tablet Discontinued 500 mg PO TWICE A DAY August 10, 2024 12:00am September 13, 2024 9:27am Start: 09-24-2020 End: 07-21-2024 take 5 tablets by mouth once daily Ascorbic Acid (Vitamin C) (Vitamin C) 100 mg Tablet Discontinued 500 mg PO DAILY September 24, 2020 12:00am July 21, 2024 8:33pm supplement take 1 tablet by ariel th once [...] (20 sources) HMG-CoA Reductase Inhibitor Start: 03-18-19 End: 08-30-19 take 1 tablet by mouth once daily at bedtime for hyperlipidemia atorvastatin (LIPITOR) 10 mg tablet Take 1 tablet by mouth daily at bedtime. For cholesterol. 08/29/2024 Active Start: 03-17-2023 End: 03-16-2024 take 1 [...] th daily at bedtime. For cholesterol. cholecalciferol 0.125 mg oral tablet (20 sources) Vitamin D Start: take 1 tablet by mouth once daily Cholecalciferol (Vitamin D3) 125 mcg (5,000 unit) tablet Active 250 ug PO daily September 13, 2024 12:00am Start: 09-24-2020 End: 09-13-2024 take 1 capsule by mouth once daily Cholecalciferol (Vitamin D3) (Vitamin D3) 50 mcg (2,000 unit) Capsule Discontinued 2000 U PO DAILY September 24, 2020 12:00am September 13, 2024 9:24am supplement Start: 08-04-2012 take 1 tablet by ariel [...] including tubing and full mask ICD G47.33 docusate sodium 50 mg / sennosides, intermediate 8.6 mg oral capsule (13 sources) Start: 09-13-2024 Sennosides-Docusate Sodium (Senna Plus) 8.6-50 mg capsule Active 1 NMA PO ONCE as needed September 13, 2024 12:00am Start: 07-21-2024 End: 08-10-2024 Sennosides-Docusate Sodium ( Stimulant Laxative Plus) 8.6-50 mg Tablet Discontinued 2 {tbl} PO TWICE A DAY 120 30 0 July 21, 2024 12:00am August 10, 2024 3:29pm doxycycline monohydrate 100 mg oral tablet (2 sources) Tetracycline-class Drug Start: 08-14-2021 End: 08-21-2021 take 1 tablet by mouth twice daily doxycycline monohydrate 100 mg tablet Indications: Sinobronchitis Take 1 tablet by mouth twice daily for 7 days. 14 tablet 0 08/14/2021 08/21/2021 Active Comment on above: Take 1 tablet by ariel th twice daily for 7 days. ELDERBERRY FRUIT [...] 23, 2020 12:00am July 21, 2024 8:34pm supplement Start: 09-23-2020 End: 07-21-2024 take 1 tablet by mouth once daily Ferrous Sulfate (Iron (Ferrous Sulfate)) 325 mg (65 mg iron) Tablet Discontinued 650 mg PO DAILY September 23, 2020 12:00am July 21, 2024 8:34pm take 1 tablet by ariel th once daily at breakfast ferrous sulfate 325 mg (65 mg iron) tablet Take 650 mg by mouth daily with breakfast. Active Comment on above: Take 650 mg by mouth daily with breakfast. furosemide 40 mg oral tablet (20 sources) Loop Diuretic Start: take 1 tablet by mouth twice daily furosemide (LASIX) 40 mg tablet Indications: Congestive heart failure, unspecified HF chronicity, unspecified heart failure type (HCC) , Venous insufficiency Take 1 tablet by mouth two times a day. 10/25/2024 Active Start: 09-13-2024 End: 10-25-2024 take 1 tablet by mouth once daily Furosemide (Lasix) 40 mg tablet Active 40 mg PO daily 180 September 13, 2024 9:58am Start: 08-12-2024 End: 10-04-2024 take 1 tablet by mouth twice daily Furosemide (Lasix) 40 mg tablet Discontinued 40 mg PO TWICE A DAY 180 August 12, 2024 9:49am September 13, 2024 10:01am Start: 07-27-2024 End: 08-29-2024 take 1 tablet by mouth once daily Furosemide (Lasix) 40 mg tablet Discontinued 40 mg PO daily August 10, 2024 12:00am August 12, 2024 9:54am X 14 days HAIR, SKIN AND NAILS, BIOTIN, ORAL (20 sources) take 2 tablets by mo uth once daily HAIR, SKIN AND NAILS, BIOTIN, [...] 17, 2020 12:00am July 06, 2024 2:07pm blood pressure Comment on above: Take 1 tablet by ariel th once daily. meloxicam 7.5 mg oral tablet (20 sources) Nonsteroidal Anti-inflammatory Drug Start: 10-12-2024 End: 11-11-2024 take 1 tablet by mouth once daily meloxicam (MOBIC) 7.5 mg tablet Take 1 tablet by mouth once daily. 30 tablet 10/12/2024 11/11/2024 Active Start: 02-17-2024 End: 06-08-2024 take 1 tablet by mouth once daily meloxicam (MOBIC) 15 mg tablet Take 1 tablet by mouth once daily. 30 tablet 1 03/15/2024 06/08/2024 Discontinued methylPREDNISolone (2 sources) Corticosteroid Start: 10-31-2024 End: 11-06-2024 methylPREDNISolone (MEDROL, JANE,) 4 mg Dose-Pack Take as directed 21 tablet 10/31/2024 11/06/2024 Active metoprolol tartrate 100 mg oral tablet (20 sources) beta-Adrenergic Jason Start: 09-13-2024 End: 09-30-2024 take 1 tablet by mouth twice daily Metoprolol Tartrate 100 mg tablet Active 100 mg PO TWICE A DAY 180 3 September 30, 2024 3:29pm Start: 08-29-2024 End: 09-13-2024 Metoprolol Tartrate 100 mg t ablet Discontinued 50 mg PO TWICE A DAY August 29, 2024 4:43pm September 13, 2024 9:27am Start: 08-29-2024 End: 09-02-2024 take 0.5 tablet by mouth twice daily metoprolol succinate ER (TOPROL XL) 100 mg Take 0.5 tablets by mouth two times a day. 08/29/2024 09/02/2024 Discontinued (Erroneous entry) Start: 08-25-2024 End: 08-29-2024 take 1 tablet by mouth twice daily Metoprolol Tartrate 100 mg tablet Discontinued 100 mg PO TWICE A DAY August 25, 2024 12:00am August 29, 2024 4:43pm Start: 08-12-2024 take 1 tablet by ariel th every twelve hours metoprolol tartrate, short acting, (LOPRESSOR) 100 mg tablet Take 1 tablet by mouth every 12 hours. 08/12/2024 Active Start: 07-21-2024 End: 08-29-2024 take 1 tablet by mouth twice daily Metoprolol Succinate 100 mg tablet extended release 24 hr Discontinued 100 mg PO TWICE A DAY 60 30 0 July 22, 2024 12:00am August 12, 2024 9:56am Start: 07-06-2024 take 1 tablet by ariel [...] 06, 2024 12:00am July 21, 2024 8:34pm Afib Multivitamin (Daily Multi-Vitamin) tablet (9 sources) Start: 07-06-2024 Multivitamin ( Daily Multi-Vitamin) tablet Active 1 {tbl} PO DAILY July 06, 2024 12:00am Supplement Start: 07-06-2024 Multivitamin ( Daily Multi-Vitamin) tablet Active 1 {tbl} PO DAILY July 06, 2024 12:00am MULTIVITAMIN ORAL (20 sources) Start: 07-23-2024 take 1 tablet by mouth once daily MULTIVITAMIN ORAL Take 1 tablet by mouth once daily. 07/23/2024 Active mupirocin 0.02 mg/mg topical ointment (5 sources) [...] / nitrofurantoin, monohydrate 75 mg oral capsule (4 sources) Nitrofuran Antibacterial Start: 11-02-2024 take 1 capsule by mouth every twelve hours at mealtime Nitrofurantoin Monohyd/M-Cryst (Macrobid) 100 mg capsule Active 100 mg PO Q12H 10 5 0 November 02, 2024 12:00am November 06, 2024 12:00am must administer with a meal/food Start: 04-04-2024 End: 04-11-2024 take 1 capsule by mouth twice daily nitrofurantoin monohydrate and macrocrystal (MACROBID) 100 mg capsule Indications: Dysuria Take 1 capsule by mouth two times a day for 7 days. 14 capsule 04/04/2024 04/11/2024 Active perflutren lipid microspheres 1.3 mL in NaCl (PF) 0.9% 10 mL injection (DEFINITY) (2 sources) Start: 10-31-2024 End: 01-30-2026 perflutren lipid microspheres 1.3 mL in NaCl (PF) 0.9% 10 mL injection (DEFINITY) predniSONE 20 mg oral tablet (3 sources) Start: 08-12-2023 End: 08-17-2023 take 1 tablet by mouth once daily predniSONE (DELTASONE) 20 mg tablet Indications: Bronchitis with bronchospasm Take 1 tablet by mouth once daily for 5 days. 5 tablet 0 08/12/2023 08/17/2023 Active 125 ml sodium chloride 9 mg/ml prefilled syringe (2 sources) Start: 10-31-2024 End: 01-30-2026 sodium chloride 0.9 % (flush) 10 mL (BD POSIFLUSH) spironolactone 25 mg oral tablet (13 sources) Aldosterone Antagonist Start: 09-13-2024 take 1 tablet by mouth once daily spironolactone (ALDACTONE) 25 mg tablet Indications: Congestive heart failure, unspecified HF chronicity, unspecified heart failure type (HCC) Take 1 tablet by mouth once daily. 90 tablet 10/04/2024 Active Turmeric extract (20 sources) TURMERIC ORAL Ta ke by mouth once daily. With curcumin Active TURMERIC ORAL Ta ke by mouth once daily. With curcumin 0 Active Comment on above: Take by mouth once d aily. With curcumin Completed/Discontinued Medications Medication Drug Class(es) Dates Sig (Normalized) Sig (Original) acetaminophen 325 mg / HYDROcodone bitartrate 5 mg oral tablet (9 sources) Opioid Agonist Start: 09-26-2020 End: 07-06-2024 Hydrocodone-Acetamin ophen 5-325 mg tablet Discontinued 1 {tbl} PO Q8H 15 5 0 September 26, 2020 July 06, 2024 2:07pm Acute postoperative pain Other acute postprocedural pain [id number] 200 actuat albuterol 0.09 mg/actuat metered dose [...] on above: Take 2 tablets by mo [facility] once daily. Take 1 tablet by ariel th. Take 1 tablet every other day calcium carbonate 1500 mg / cholecalciferol 200 unt oral tablet (9 sources) Vitamin D Start: 09-24-2020 End: 08-10-2024 Calcium Carbonate-Vitamin D3 600 mg(1,500mg) -200 unit Tablet Discontinued 1 {tbl} PO TWICE A DAY September 24, 2020 12:00am August 10, 2024 3:28pm supplement CALCIUM CARBONATE/VITAMIN D2 (CALCIUM + VITAMIN D [...] twice daily. cefadroxil 500 mg oral capsule (13 sources) Cephalosporin Antibacterial Start: End: take 1 capsule by mouth every twelve hours Cefadroxil 500 mg capsule Discontinued 500 mg PO Q12H July 06, 2024 12:00am July 21, 2024 8:33pm Antibiotic 24 hr dilTIAZem hydrochloride 300 mg extended release oral capsule (20 sources) Calcium Channel Jason Start: End: take 1 capsule by mouth once daily, then take 1 capsule by mouth every twenty-four hours Diltiazem Hcl (Tiadylt Er) 300 mg capsule,extended release 24 hr Discontinued 300 mg PO DAILY 30 30 0 July 22, 2024 12:00am August 12, 2024 9:56am docusate sodium 100 mg oral capsule (20 sources) Start: End: take 1 capsule by mouth twice daily as needed for constipation Docusate Sodium 100 mg capsule Discontinued 100 mg PO TWICE A DAY as needed for constipation August 10, 2024 12:00am September 13, 2024 9:26am Start: 07-05-2024 End: 08-04-2024 take 1 capsule by mouth twice daily as needed for constipation Docusate Sodium 100 mg capsule Discontinued 100 mg PO TWICE A DAY as needed for Constipation July 06, 2024 12:00am July 21, 2024 8:33pm Fiber (20 sources) Start: 09-24-2020 End: 08-10-2024 take 1 capsule by mouth once daily Fiber Capsule Discontinued 3 NMA PO DAILY September 24, 2020 12:00am August 10, 2024 3:28pm supplement Start: 09-24-2020 End: 08-10-2024 take 1 capsule by mouth once daily [...] oral tablet (20 sources) Thiazide Diuretic Start: 025 End: take 1 tablet by mouth once daily Hydrochlorothiazide 25 mg tablet Discontinued 25 mg PO DAILY 30 30 0 July 22, 2024 12:00am August 10, 2024 [...] Discontinued Start: 10-02-2022 take 1 capsule by [facility] once daily hydroCHLOROthiazide 12.5 mg capsule Indications: Hypertension, essential Take 1 capsule by mouth once daily. 90 capsule 1 10/02/2022 Active Comment on above: Take 1 capsule by [facility] once daily. hydrocortisone 25 mg/ml topical cream (9 sources) Corticosteroid Start: 2024 End: 2024 Hydrocortisone 2.5 % cream Discontinued 1 NMA TOPICAL TWICE A DAY July 06, 2024 12:00am July 21, 2024 8:34pm rash Lidocaine (1 source) Antiarrhythmic, Amide Local Anesthetic Start: 2024 End: 2024 OTHER, X (OR/PROCEDURE) PRN, Starting on Thu10/26/24 at 1321, Until Thu10/26/24 at 1321, Intraprocedure Magnesium Hydroxide (20 sources) Start: 2024 End: 2024 take 1 [...] daily as needed for constipation. 07/05/2024 Active metOLazone 5 mg oral tablet (9 sources) Thiazide-like Diuretic Start: 08-29-2024 End: 09-30-2024 take 1 tablet by mouth once daily Metolazone 5 mg tablet Discontinued 5 mg PO daily September 13, 2024 12:00am September 30, 2024 2:54pm for 3 days only Multivit W/Fluoride (9 sources) Start: 09-23-2020 End: 07-21-2024 Multivit W/Fluoride Discontinued 1 {tbl} SL/PO DAILY September 23, 2020 12:00am July 21, 2024 8:34pm supplement Start: 09-23-2020 End: 07-21-2024 Multivit W/Fluoride Disconti nued 1 {tbl} SL/PO DAILY September 23, 2020 12:00am July 21, 2024 8:34pm Multivitamin With Minerals (Hair,Skin And Nails) tablet (8 sources) Start: 08-10-2024 End: 08-25-2024 Multivitamin With Minerals (Hair,Skin And Nails) tablet Discontinued 1 {tbl} PO daily August 10, 2024 12:00am August 25, 2024 5:20pm Start: 08-10-2024 Multivitamin W ith Minerals (Hair,Skin And Nails) tablet Active 1 {tbl} PO daily August 10, 2024 12:00am multivitamins(DAILY MULTIVIT GARBER TAB) (20 sources) Start: 03-27-2009 End: 07-25-2024 multivitamins(DAILY MULTIVITAMIN TAB) Take one(1) tablet daily. 0 03/27/2009 07/25/2024 Discontinued (Other) Start: 03-27-2009 multivitamins( DAILY MULTIVITAMIN TAB) Take one(1) tablet daily. 0 03/27/2009 Active Comment on above: Take one(1) tablet d aily. Drug Treatment Unknown - unknown (2 sources) No information available. oxyCODONE hydrochloride 5 mg oral tablet (20 sources) Opioid Agonist Start: End: take 1 tablet by mouth every four hours as needed for pain Oxycodone 5 mg tablet Discontinued 5 mg PO Q4H as needed for pain 42 7 0 July 22, 2024 August 10, 2024 3:29pm Status post total replacement of right hip Presence of right artificial hip joint Start: 07-05-2024 End: 07-21-2024 take 5-10 mg by mouth every six hours as needed for pain Oxycodone 5 mg tablet Discontinued 5 - 10 mg PO EVERY 6 HOURS as needed for pain (scale score 7-10) 0 July 06, 2024 12:00am July 21, 2024 8:35pm pantoprazole 40 mg delayed release oral tablet (20 sources) Proton Pump Inhibitor Start: 07-06-2024 End: 07-21-2024 take 1 tablet by mouth once daily Pantoprazole 40 mg tablet,delayed release (DR/EC) Discontinued 40 mg PO DAILY July 06, 2024 12:00am July 21, 2024 8:34pm GERD polyethylene glycol [id number] mg powder for oral solution (20 sources) Osmotic Laxative Start: 08-10-2024 End: 08-11-2024 [...] as directed. 170 g 07/05/2024 07/15/2024 Active potassium chloride 20 meq extended release oral tablet (15 sources) Start: 08-12-2024 End: 09-14-2024 take 1 tablet by mouth once daily Potassium Chloride (K-Tab) 20 mEq tablet extended release Discontinued 20 meq PO daily 90 3 August 12, 2024 12:00am September 13, 2024 9:58am regadenoson 0.4 mg injection (LEXISCAN) (2 sources) [...] Active Problems Problem Classification Problem Date Documented Da te Episodic/Chronic Abdominal pain (9 sources) Abdominal pain; Translations: [Unspecified abdominal pain] 09-17-2020 Episodic Acute bronchitis (2 sources) Bronchitis; Translations: [Acute bronchitis, unspecified] 08-12-2023 Episodic Biliary tract disease (9 sources) Acute cholecystitis due to biliary calculus; Translations: [Calculus of gallbladder with acute cholecystitis without obstruction] 09-24-2020 Episodic Cardiac dysrhythmias (20 sources) Premature beats; Translations: [Other premature depolarization] Onset: 06-09-2024 Resolved: 07-27-2024 Chronic Cardiac dysrhythmias (8 sources) Bradycardia; Translations: [Bradycardia, unspecified] Onset: 08-30-2024 09-30-2024 Episodic Cardiac dysrhythmias (9 sources) Cardiac dysrhythmias Chronic kidney disease (20 sources) Chronic kidney disease stage 3; Translations: [Chronic kidney insufficiency, stage 3 (moderate) (HCC)] Onset: 08-25-2023 08-25-2023 Chronic Complication of device; implant or graft (4 sources) Joint pain; Translations: [Pain due to internal orthopedic prosthetic devices, implants and grafts, initial encounter] Onset: 10-14-2024 10-14-2024 Episodic Conduction disorders (12 sources) Right bundle branch block; Translations: [Unspecified right bundle-branch block] 08-10-2024 Chronic Congestive heart failure; nonhypertensive (20 sources) Congestive heart failure; Translations: [Heart failure, unspecified] Onset: 09-02-2024 08-29-2024 Chronic Deficiency and other anemia (18 sources) Iron deficiency anemia; Translations: [Iron deficiency anemia, unspecified] 07-06-2024 Episodic Diseases of white blood cells (10 sources) Leukocytosis; Translations: [Elevated white blood cell count, unspecified] Onset: 11-10-2024 09-24-2020 Chronic Disorders of lipid metabolism (20 sources) Hyperlipidemia; Translations: [Hyperlipidemia, unspecified] Onset: 01-18-2016 Chronic Essential hypertension (20 sources) Essential hypertension; Translations: [Essential (primary) hypertension] Onset: 01-02-2020 Chronic Genitourinary symptoms and ill-defined conditions (2 sources) Dysuria; Translations: [Dysuria] 03-31-2024 Episodic Hypertension with complications and secondary hypertension (9 sources) Hypertensive urgency ; Translations: [Hypertensive urgency] 09-17-2020 Chronic Malaise and fatigue (19 sources) Fatigue; Translations: [Other fatigue] 08-25-2023 Episodic Neoplasms of unspecified nature or [...] joint replacement surgery] Onset: 07-26-2024 Chronic Other and ill-defined heart disease (6 sources) Diastolic dysfunction; Translations: [Other ill-defined heart diseases] 09-13-2024 Chronic Other and ill-defined heart disease (2 sources) Other ill-defined heart diseases; Translations: [Other ill-defined heart diseases] Onset: 11-10-2024 Chronic Other circulatory disease (1 source) Wheeze - rhonchi; Translations: [Other specified symptoms and signs involving the circulatory and respiratory systems] Episodic Other connective tissue disease (20 sources) History of repair of hip joint; Translations: [Presence of right artificial hip joint] 07-11-2024 Chronic Other connective tissue disease (20 sources) History of total hip arthroplasty; Translations: [Presence of right artificial hip joint] Onset: 07-01-2024 07-02-2024 Chronic Other connective tissue disease (6 sources) Presence of right artificial hip joint; Translations: [Status post hip replacement, right] Onset: 07-02-2024 Chronic Other connective tissue disease (2 sources) Swelling of lower limb; Translations: [Other specified soft tissue disorders] 08-17-2024 Episodic Other connective tissue disease (1 source) Other specified soft tissue disorders; Translations: [Leg swelling] Onset: 08-31-2024 Episodic Other ear and sense organ disorders (20 sources) Hearing loss in left ear; Translations: [Unspecified hearing loss, left ear] Onset: 03-27-2009 03-27-2009 Chronic Other ear and sense organ disorders (1 source) Impacted cerumen in right ear; Translations: [Impacted cerumen, right ear] 04-23-2023 Episodic Other lower respiratory disease (1 source) Cough; Translations: [Acute cough] 08-03-2023 Episodic Other lower respiratory disease (6 sources) Dyspnea; Translations: [Dyspnea, unspecified] 08-25-2024 Episodic Other non-traumatic joint disorders (1 source) [...] Chronic Other nutritional; endocrine; and metabolic disorders (18 sources) Obesity; Translations: [Obesity, unspecified] 07-06-2024 Chronic Other skin disorders (1 source) Xeroderma; Translations: [Xerosis cutis] 10-02-2022 Episodic Other skin disorders (1 source) Seborrheic keratosis; Translations: [Other seborrheic keratosis] 01-12-2024 Episodic Other upper respiratory infections (1 source) Chronic sinusitis; Translations: [Chronic sinusitis, unspecified] Chronic Other upper respiratory infections (2 sources) Acute upper respiratory infection; Translations: [Acute upper respiratory infection, unspecified] Episodic Lyndsey-; endo-; and myocarditis; cardiomyopathy (except that caused [...] 10-24-2020 Chronic Residual codes; unclassified (20 sources) Bilateral lower limb edema; Translations: [Localized edema] 08-11-2024 Episodic Residual codes; unclassified (1 source) Localized edema; Translations: [Localized edema] Onset: 08-29-2024 Episodic Respiratory failure; insufficiency; arrest (adult) (2 sources) Respiratory failure; insufficiency; arrest (adult); Translations: [Chronic kidney insufficiency, stage 3 (moderate) (HCC)] Onset: 08-25-2023 Unclassified (2 sources) Screening for malignant neoplasm of colon ; Translations: [Encounter for screening for malignant neoplasm of colon] Onset: 01-07-2017 01-07-2017 Unclassified (7 sources) I48.0 - Paroxysmal atrial fibrillation,I48.91 - Unspecified atrial fibrillation,I45.10 - Unspecified right bundle-branch block Unclassified (4 sources) Other back symptoms Unclassified (1 source) Obesity, Class I, BMI 30-34.9; Translations: [Obesity, Class I, BMI 30-34.9] Onset: 10-25-2020 Past or Other Problems Problem Classification Problem [...] Onset: 12-05-2011 Resolved: 03-28-2016 03-04-2021 Chronic Other screening for suspected conditions (not mental disorders or infectious disease) (20 sources) Patient encounter status; Translations: [Encounter for screening mammogram for malignant neoplasm of breast] Onset: 02-22-2024 Episodic Other skin disorders (20 sources) Laurel - lesion ; Translations: [Corns and callosities] Onset: 08-17-2013 Resolved: 03-28-2016 03-28-2016 Episodic Residual codes; unclassified (20 sources) Postprocedural state finding; Translations: [Other specified postprocedural states] Onset: 07-12-2024 07-12-2024 Episodic Unclassified (2 sources) Preprocedural examination done 05-11-2024 Unclassified (8 sources) History of repair of hip joint 07-11-2024 Results Test Name Value Interpretation Reference Range Facility Basic metabolic 2000 panelon 11-08-2024 Anion gap [Moles/Vol] 9 mmol/L Normal 8-15 [facility] Comment on above: Order Comment: Speci men Type: BLOOD SPECIMEN Ordering Facility: [facility] Address: [address] [place], [place] [address] Performed By: #### 2 4321-2 #### [facility] CLIA [id number] [address] [place] [address] [place] Calcium [Mass/Vol] 9.7 mg/dL Normal 8.5-10.2 [facility] Comment on above: Order Comment: Speci men Type: BLOOD SPECIMEN Ordering Facility: [facility] Address: [address] [place] [address] Performed By: #### 2 4321-2 #### [facility] CLIA [id number] [address] [place], [place] [id number] [place] Chloride [Moles/Vol] 98 mmol/L Normal 98-107 [facility] Comment on above: Order Comment: Speci men Type: BLOOD SPECIMEN Ordering Facility: [facility] Address: [address] [place] [address] Performed By: #### 2 4321-2 #### [facility] CLIA [id number] [address] [place] [address] [place] CO2 [Moles/Vol] 31 mmol/L High 22-30 [facility] Comment on above: Order Comment: Speci men Type: BLOOD SPECIMEN Ordering Facility: [facility] Address: [address] [place] [address] Performed By: #### 2 4321-2 #### [facility] CLIA [id number] [address] [place] [address] [place] Creatinine [Mass/Vol] 1.14 mg/dL High 0.58-0.96 [facility] Comment on above: Order Comment: Speci men Type: BLOOD SPECIMEN Ordering Facility: [facility] Address: [address] [place] [address] Performed By: #### 2 4321-2 #### [facility] CLIA [id number] [address] [place] [address] [place] eGFRcr SerPlBld CKD-EPI 2020 51 mL/min/1.73m??? Low >=60 [facility] Comment on above: Order Comment: Speci men Type: BLOOD SPECIMEN Ordering Facility: [facility] Address: [address] [place] [address] Result Comment: Jessica mated Glomerular Filtration Rate [...] actual GFR. Performed By: #### 2 4321-2 #### [facility] CLIA [id number] [address] [place] [address] [place] Glucose [Mass/Vol] 114 mg/dL High 74-99 [facility] Comment on above: Order Comment: David del real Type: BLOOD SPECIMEN Ordering Facility: [facility] Address: [address] [place] [address] Result Comment: The [place] Diabetes Association (ADA) provides guidance for cutoff [...] Standards of Medical Care in Diabetes 2016, [place] Diabetes Association. Diabetes Care. 2016.39(Suppl 1). Performed By: #### 2 4321-2 #### [facility] CLIA [id number] [address] [place] [address] [place] Potassium [Moles/Vol] 4.2 mmol/L Normal 3.7-5.1 [facility] Comment on above: Order Comment: David del real Type: BLOOD SPECIMEN Ordering Facility: [facility] Address: [address] [place] [address] Performed By: #### 2 4321-2 #### [facility] CLIA [id number] [address] [place] [address] [place] Sodium [Moles/Vol] 138 mmol/L Normal 136-144 [facility] Comment on above: Order Comment: David del real Type: BLOOD SPECIMEN Ordering Facility: [facility] Address: [address] [place] [address] Performed By: #### 2 4321-2 #### [facility] CLIA [id number] [address] [place] [address] [place] Urea nitrogen [Mass/Vol] 33 mg/dL High 7-21 [facility] Comment on above: Order Comment: Speci men Type: BLOOD SPECIMEN Ordering Facility: [facility] Address: [address] [place] [address] Performed By: #### 2 4321-2 #### [facility] CLIA [id number] [address] [place] [address] [facility] CNNURSEon 11-03-2024 CNNURSE Nurse Visit (ORMDNA) AZALEA MOTT ([id number]) 1950 F Date Time Provider Department 11/03/24 10:00 AM KASIE ESCOBAR During your visit today, we recorded the following information about you: Kasie Escobar RN 11/03/2024 11:34 AM Signed Patient here for a wound check. She came in last week with BLE edema and blistering on the RLE around ankle. S/p R SYLVESTER 06/2024. Has significantly improved. Three small scabbed areas and one open blister the size of a quarter remain. Erythema resolved as well as improved edema. Patient compliant with wound care and compression this week. Cleaned area and placed xeroform, gauze and tubigrip. Gave supplies and instructions on dressing changes. Patient verbalized understanding. will assist her. She sees cardiology at [facility]. Has plans for pacemaker to be placed 11/17/24 to resolve BLE. She will continue to monitor site and care for it. She will call with concerns. Otherwise she is scheduled for a f/u with Jamal Larios PAC in December. Kasie Escobar RN 11/03/2024 10:31 AM Signed Change dressing every other day Clean area by showering; pat dry area Then place xeroform (yellow dressing) over blistered sites Gauze then wrap with SHALONDA or place compression stocking Call if needing to be seen in office to schedule with Kasie JAMES if not healing or concerns- [phone] Allergies As of Date: 11/03/2024 Noted Allergy Reaction NORCO (HYDROCODONE-ACETAMINO PHEN) 10/24/2020 14 - Other: See Comments Comments: Weird dreams. Date Reviewed: 11/03/2024 Reviewed by: Kasie Escobar RN - Fully Assessed Reason for Visit: Wound Check [133] Primary Visit Diagnosis:Status post hip replacement, right [Z96.641] Order(s):XR HIP GENERAL 3V PELV/AP/LAT RIGHT [[id number]] Order #: [id number] FUTURE Prescriptions as of 11/03/2024 - methylPREDNISolone (MEDROL, JANE,) 4 mg Dose-Pack Take as directed - furosemide (LASIX) 40 mg tablet Take 1 tablet by mouth two times a day. - meloxicam (MOBIC) 7.5 mg tablet Take 1 tablet by mouth once daily. - spironolactone (ALDACTONE) 25 mg tablet Take 1 tablet by mouth once daily. - atorvastatin (LIPITOR) 10 mg tablet Take 1 tablet by mouth daily at bedtime. For cholesterol. - metoprolol tartrate, short acting, (LOPRESSOR) 100 mg tablet Take 1 tablet by mouth every 12 hours. - polyethylene glycol 3350 17 gram/dose powder Take 17 g by mouth as needed for constipation. Dissolve dose in 4 - 8 ounces of liquid and take as directed. - MULTIVITAMIN ORAL Take 1 tablet by mouth once daily. - acetaminophen (TYLENOL) 500 mg tablet Take 2 tablets by mouth every 8 hours as needed for pain. - apixaban (ELIQUIS) 5 mg tab(s) Take 1 tablet by mouth two times a day. - CPAP CPAP Supplies, All Necessary equipment [...] Take 2,000 Units by mouth once daily. Facility-Administered Medications as of 11/03/2024 - perflutren lipid microspheres 1.3 mL in NaCl (PF) 0.9% 10 mL injection (DEFINITY) - sodium chloride 0.9 % (flush) 10 mL (BD POSIFLUSH) Problem List As Of Date 11/03/2024 Noted Resolved Dermatophytosis of foot [B35.3] 02/05/2006 03/07/2015 Hereditary and idiopathic peripheral neuropathy* 10/24/2020 Hearing Loss in Left Ear [H91.92] 03/27/2009 Post-menopausal bleeding [N95.0] 11/21/2011 03/28/2016 Thickened endometrium [R93.89] 12/05/2011 03/28/2016 Laurel of foot [L84] 08/17/2013 03/28/2016 Primary osteoarthritis [...] 07/02/2024 Other specified postprocedural states [Z98.890] 07/12/2024 Congestive heart failure (HCC) [I50.9] 09/02/2024 Other instructions from your clinician: Change dressing every other day Clean area by showering; pat dry area Then place xeroform (yellow dressing) over bl (more content not included)... Normal [facility] Basic Metabolic Profile (BMP )on 11-02-2024 BUN/CRE 24.4 RATIO High 10-20 [facility] Comment on above: Performed By: #### L 506.1001, L500.4100 #### [facility] [address] [place], [address] Calcium [Mass/Vol] 10.2 mg/dL Normal 7.6-11.0 [facility] Comment on above: Performed By: #### L 506.1001, L500.4100 #### [facility] [address] [place], [address] Chloride [Moles/Vol] 99 mmol/L Normal 98-108 [facility] Comment on above: Performed By: #### L 506.1001, L500.4100 #### [facility] [address] [place], [address] CO2 [Moles/Vol] 30.7 mmol/L Normal 21.0-32.0 [facility] Comment on above: Performed By: #### L 506.1001, L500.4100 #### [facility] [address] [place], [address] Creatinine [Mass/Vol] 1.06 mg/dL Normal 0.70-1.20 [facility] Comment on above: Performed By: #### L 506.1001, L500.4100 #### [facility] [address] [place], [address] GAP 10 Normal 5-15 [facility] Comment on above: Performed By: #### L 506.1001, L500.4100 #### [facility] [address] [place], [address] GFR/1.73 sq M.predicted among non-blacks MDRD (S/P/Bld) [Vol rate/Area] 55 mL/min/{1.73_m2} Low >60 [facility] Comment on above: Result Comment: mL/m in/1.73m2 CKD-EPI Creatinine Equation (2020) Performed By: #### L 506.1001, L500.4100 #### [facility] [address] [place], [address] Glucose [Mass/Vol] 118 mg/dL High 70-99 [facility] Comment on above: Performed By: #### L 506.1001, L500.4100 #### [facility] [address] [place], [address] Potassium [Moles/Vol] 4.0 mmol/L Normal 3.3-5.1 [facility] Comment on above: Performed By: #### L 506.1001, L500.4100 #### [facility] [address] [place], [address] Sodium [Moles/Vol] 140 mmol/L Normal 133-145 [facility] Comment on above: Performed By: #### L 506.1001, L500.4100 #### [facility] [address] [place], [address] Urea nitrogen [Mass/Vol] 26 mg/dL High 4-19 [facility] Comment on above: Performed By: #### L 506.1001, L500.4100 #### [facility] [address] [place], [address] CBC-Complete Blood Cnt No Di ffon 11-02-2024 Erythrocyte distribution width (RBC) [Ratio] 13.6 % Normal 11.6-14.6 [facility] Comment on above: Performed By: #### L 300.3900, L100.0500, L500.2500, L400.0001 #### [facility] [address] [place], [address] Hematocrit (Bld) [Volume fraction] 29.7 % Low 37-47 [facility] Comment on above: Performed By: #### L 300.3900, L100.0500, L500.2500, L400.0001 #### [facility] [address] [place], [address] Hemoglobin (Bld) [Mass/Vol] 9.7 g/dL Low 12.0-15.0 [facility] Comment on above: Performed By: #### L 300.3900, L100.0500, L500.2500, L400.0001 #### [facility] [address] [place], [address] MCH (RBC) [Entitic mass] 29.7 pg Normal 27.0-32.0 [facility] Comment on above: Performed By: #### L 300.3900, L100.0500, L500.2500, L400.0001 #### [facility] [address] [place], [address] MCHC (RBC) [Mass/Vol] 32.7 g/dL Normal 32-36 [facility] Comment on above: Performed By: #### L 300.3900, L100.0500, L500.2500, L400.0001 #### [facility] [address] [place], [address] MCV (RBC) [Entitic vol] 90.8 fL Normal 81-99 [facility] Comment on above: Performed By: #### L 300.3900, L100.0500, L500.2500, L400.0001 #### [facility] [address] [place], [address] Platelet mean volume (Bld) [Entitic vol] 10.5 fL Normal 6.2-12.0 [facility] Comment on above: Performed By: #### L 300.3900, L100.0500, L500.2500, L400.0001 #### [facility] [address] [place], [address] Platelets (Bld) [#/Vol] 372 10*3/uL Normal 150-450 [facility] Comment on above: Performed By: #### L 300.3900, L100.0500, L500.2500, L400.0001 #### [facility] [address] [place], [address] RBC (Bld) [#/Vol] 3.27 10*6/uL Low 4.2-5.4 [facility] Comment on above: Performed By: #### L 300.3900, L100.0500, L500.2500, L400.0001 #### [facility] [address] [place], [address] RDW SD 43.8 fl Normal 35.1-43.9 [facility] Comment on above: Performed By: #### L 300.3900, L100.0500, L500.2500, L400.0001 #### [facility] [address] [place], [address] WBC (Bld) [#/Vol] 16.5 10*3/uL High 4.4-11.0 [facility] Comment on above: Performed By: #### L 300.3900, L100.0500, L500.2500, L400.0001 #### [facility] [address] [place], [address] Cardiology Visit Reporton Cardiology Visit Report [facility] [address] [place] [address] OFFICE VISIT Date of Service: 11/02/24 MR#: [id number] Acct: [id number] Name: AZALEA MOTT Rep #: [id number] : 1950 Provider: DEMETRICE Banerjee Age/Sex: 74/F Location: [facility] Status: Signed HPI HPI History of Present Illness Details: Azalea Mott is a 74-year-old male who presents to office today for preprocedural evaluation. She has a history of atrial fibrillation that was captured on preoperative workup for hip replacement earlier this year. Echocardiogram performed demonstrated preserved ejection fraction. A Ioana can stress Myoview was negative for ischemia. Postoperatively, patient went to atrial fibrillation with RVR and was treated with diltiazem and metoprolol along with anticoagulation with apixaban. She presented to the emergency room in August 2024 with concerns of palpitations and EKG demonstrated atrial fibrillation with slow ventricular rate. Her heart rate was in the 40s. Her diltiazem was stopped and her metoprolol was decreased. PCP noted increase in her heart rate and recommend she return her metoprolol back to 100 mg twice a day. Patient reported ongoing lower heart rates. 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 She is scheduled for pacemaker placement 11/17/2024. Upon presentation today, patient reports doing well. She reports ongoing chronic shortness of breath with activity that is unchanged. She continues to follow with Ortho for right lower extremity edema status post hip surgery in June. She reports her orthopedic surgeon ordered cardiac tests that were originally sent to [facility] and she requested that orders to be sent here. She is uncertain of which test these were and why they were being done. Further ROS below. 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 Required: No Accompanied by: Significant Other Is patient in pain?: No Allergies hydrocodone Adverse Reaction (Unknown, Verified 11/02/24 13:23) Weird dreams Medications ???Medication ???Instructions ???Recorded ???Confirmed ???Type atorvastatin 10 mg tablet 10 mg PO QHS cholesterol 07/06/24 11/02/24 History multivitamin (Daily Multi-Vitamin 1 tab PO DAILY Supplement 5 11/02/24 History tablet) acetaminophen 500 mg tablet 1,000 mg PO Q8 PRN pain 08/10/24 0 11/02/24 History ferrous sulfate 325 mg (65 mg 650 mg PO QDAY 08/10/24 11/02/24 H istory iron) tablet ascorbic acid (vitamin C) 500 mg 1,000 mg PO QDAY 09/13/24 11/02/24 History tablet cholecalciferol (vitamin D3) 125 250 mcg PO QDAY 09/13/24 11/02/24 History mcg (5,000 unit) tablet furosemide 40 mg tablet (Lasix) 40 mg PO QDAY #180 tabs 09/13/24 0 11/02/24 Rx sennosides 8.6 mg-docusate sodium 1 tab-cap PO ONCE PRN 09/13/24 History 50 mg capsule (Senna Plus) spironolactone 25 mg tablet 25 mg PO DAILY #90 tabs 09/13/24 0 11/02/24 Rx apixaban 5 mg tablet (Eliquis) 5 mg PO BID 30 days #60 tabs 09/3011/02/24 Rx metoprolol tartrate 100 mg tablet 100 mg PO BID #180 tabs 09/30/24 11/02/24 Rx meloxicam 7.5 mg tablet 7.5 mg PO QDAY 11/02/24 11/02/24 H istory Have you fallen in the past year?: No PFSH Medical History Tachy-prudencio syndrome RBBB Essential (primary) hypertension Atrial fibrillation with RVR Obstructive sleep apnea Hypertensive urgency COVID-19 Hearing loss, left Non-smoker CPAP (continuous positive airway pressure) dependence Chest pain Surgical History Status post right hip replacement History of adenoidectomy History of total right hip arthroplasty History of colonoscopy History of tonsillectomy History of left mastoidectomy History of laparoscopy History of hysteroscopy History of laparoscopic cholecystectomy S/P tubal ligation Family History Mother Hypertension Asthma Diabetes COPD (chronic obstructive pulmonary disease) Crohn's disease Father , at 82. Non-Hodgkin lymphoma CHF (congestive heart failure) CVA (cerebral vascular accident) Sister CHF (congestive heart failure) Sister Diabetes (more content not included)... Normal [facility] Chest PA and Lateralon 11-02 Chest PA and Lateral [facility] [address] [place] [address] Chest PA and Lateral MR#: [id number] Acct: [id number] Name: AZALEA MOTT Rep #: [id number] : 1950 F 74 From: Richard Rodgers PCP: Dr. Navdeep Holcomb MD Status: [facility] Study: Chest PA and Lateral Date of Exam: 11/02/24 Exam# [id number] Ordering Dr: Marsha Zheng PA PROCEDURE: CHEST PA AND LATERAL 11/02/2024 REASON FOR EXAM: PREPROCEDURE TECHNIQUE: CHEST PA AND LATERAL COMPARISON: 08/25/24 FINDINGS: Mild pulmonary vascular congestion. No focal consolidation. No pleural effusion or pneumothorax. Cardiac silhouette is within normal limits. No acute fractures. RAD/Chest PA and Lateral IMPRESSION: Mild pulmonary vascular congestion. No focal consolidation. Reading Location: [facility] CC: Dr. Navdeep Holcomb MD; DEMETRICE Hauser Head Of Music: Signed Normal [facility] Pacemaker Checkon 11-02-2024 Pacemaker Check [facility] [place] [facility] [address] [facility] [address] [place] [address] Pacemaker Check Date of Service: 11/02/24 1639 MR#: [id number] Acct: [id number] Name: AZALEA MOTT Rep #: [id number] : 1950 From: Preeti Merino Age/Sex: 74/F Location: [facility] Status: Signed Billing Codes Nurse, Teaching, Wound Ck (no charge): Yes (PPM implant teaching) Assessment and Plan Assessment and Plan (1) Tachy-prudencio syndrome: Status: Acute (2) Paroxysmal atrial fibrillation: Status: Chronic 11/02/24 1640 Date Preeti Romero Signature: Date (if applicable) CC: Normal [facility] Prothrombin Time w/INRon INR Coag (PPP) [Relative time] 1.2 {INR} Normal [facility] Comment on above: Performed By: #### L 300.3900, L100.0500, L500.2500, L400.0001 #### [facility] [address] [place], [address] PT Coag (PPP) [Time] 15.9 s High 11.7-14.9 [facility] Comment on above: Performed By: #### L 300.3900, L100.0500, L500.2500, L400.0001 #### [facility] [address] [place], [address] Urinalysis, Completeon 11-02 BACTERIA 2+ /hpf Normal None Seen [facility] Comment on above: Order Comment: PATRIA MCGEEOR TO SPECIFY Performed By: #### L 506.1001, L500.4100 #### [facility] [address] [place], [address] WBC 0-5 SEEN Normal 0-5 [facility] Comment on above: Order Comment: PATRIA MCGEEOR TO SPECIFY Performed By: #### L 506.1001, L500.4100 #### [facility] [address] [place], [address] RBC 0-5 SEEN Normal 0-5 [facility] Comment on above: Order Comment: COLLE CTOR TO SPECIFY Performed By: #### L 506.1001, L500.4100 #### [facility] [address] [place], [address] EPI,SQUAMOUS 5-10 SEEN Normal 5-10 [facility] Comment on above: Order Comment: COLLE CTOR TO SPECIFY Performed By: #### L 506.1001, L500.4100 #### [facility] [address] [place], [address] Mucus Ql (Urine sed) 0 SEEN Normal [facility] Comment on above: Order Comment: COLLE CTOR TO SPECIFY Performed By: #### L 506.1001, L500.4100 #### [facility] [address] [place], [address] CNOVon 10-31-2024 CNOV Office Visit (ORMDNA ) AZALEA MOTT ([id number]) 1950 F Date Time Provider Department 10/31/24 10:15 AM ELIGIO BERGERON During your visit today, we recorded the following information about you: Eligio Bergeron MD 10/31/2024 10:36 AM Signed Orthopaedic Office Note: History/Subjective: Azalea Mott is a 74 year old female who presents for 4 month follow up for their R SYLVESTER. Patient was doing well until around a few weeks ago when she started to develop right hip pain. Patient had an elevated ESR 37 CRP within normal limits. Underwent aspiration with interventional radiology and found to have 2300 nucleated cells with 89% PMNs with negative culture. Patient states that overall her right hip pain has improved without any medication or intervention. She had groin pain prior to the aspiration. Since her aspiration and around couple weeks afterwards her groin pain went away. She is dealing with bilateral lower extremity edema. She does have history of congestive heart failure and is about to get a pacemaker as well. She has blistering in both bilateral lower extremities. Imaging: X-ray of the hip -This shows a well-fixed cementless total hip arthroplasty components with no signs of loosening or lucencies in the acetabular femoral component. There is no subsidence. The ball is concentrically inside the acetabulum Physical Examination: Exam shows incision is well-healed with no signs of dehiscence erythema or fluctuance. Motion is 0 to 100 degrees with flexion and 10 degrees of internal rotation 20 degrees of external rotation. Motor is 5/5 DF PF EHL and KE sensation is intact over the peripheral nerve distribution -Bilateral lower extremity has pitting edema around 2-3+ with blistering in the right and left lower extremity with some serous fluid. Assessment and Plan: Patient is now 4 months out from SYLVESTER with bilateral edema likely cardiogenic related given that is bilateral with blistering. -Will provide compressive wraps to the legs to fitter helper in her swelling, also dressed the blisters with Xeroform dressing. Advised that she needs to follow-up with her PCP/industrial laborer regarding this bilateral lower extremity swelling right is obviously worse as she had recent surgery. - Will follow-up on for check of these blisters to make sure they are improving I spent a total of approximately 15 minutes on the date of the service which included preparing to see the patient, [id number] patient care, completing clinical documentation, obtaining and/or reviewing separately obtained history, performing a medically appropriate examination, counseling and educating the patient/family/caregiv er, and care coordination (not separately reported). Eligio Bergeron MD Associate Staff Physician [facility] Department of Orthopedic Surgery Allergies As of Date: 10/31/2024 Noted Allergy Reaction NORCO (HYDROCODONE-ACETAMINO PHEN) 10/24/2020 14 - Other: See Comments Comments: Weird dreams. Date Reviewed: 10/31/2024 Reviewed by: Frida Bourgeois LPN - Fully Assessed Reason for Visit: Pain [78] Established Patient [175] Primary Visit Diagnosis:Status post hip replacement, right [Z96.641] Order(s):methylPREDNIS olone (MEDROL, JANE,) 4 mg Dose-PackTake as directedDisp: 21 tabletRfl: 0 Prescriptions as of 10/31/2024 - methylPREDNISolone (MEDROL, JANE,) 4 mg Dose-Pack Take as directed - furosemide (LASIX) 40 mg tablet Take 1 tablet by mouth two times a day. - meloxicam (MOBIC) 7.5 mg tablet Take 1 tablet by mouth once daily. - spironolactone (ALDACTONE) 25 mg tablet Take 1 tablet by mouth once daily. - atorvastatin (LIPITOR) 10 mg tablet Take 1 tablet by mouth daily at bedtime. For cholesterol. - metoprolol tartrate, short acting, (LOPRESSOR) 100 mg tablet Take 1 tablet by mouth every 12 hours. - polyethylene glycol 3350 17 gram/dose powder Take 17 g by mouth as needed for constipation. Dissolve dose in 4 - 8 ounces of liquid and take as directed. - MULTIVITAMIN ORAL Take 1 tablet by mouth once daily. - acetaminophen (TYLENOL) 500 mg tablet Take 2 tablets by mouth every 8 hours as needed for pain. - apixaban (ELIQUIS) 5 mg tab(s) Take 1 tablet by mouth two times a day. - CPAP CPAP Supplies, All Necessary equipment [...] Units by mouth once daily. Problem List A (more content not included)... Normal [facility] Bacteria Fld Culton 10-27-19 25 Bacteria identified Cx Nom (Body fld) ORGANISM ID: 1 Cutibacterium acnes Growth in enrichment broth only; no growth on solid media. Solid medium is the most specific means of detecting growth. Broth medium is the most sensitive means of detecting growth. Discrepant results could be due to low bacterial burden or contamination. Susceptibility testing on C. acnes not performed due to predictable susceptibility to penicillin. C. acnes is intrinsically resistant to metronidazole. GRAM STAIN: No organisms seen No Polymorphonuclear Leukocytes Gram stain from primary specimen Abnormal [facility] Comment on above: Performed By: #### 6 11-4 ####[facility] [id number] [place] [address] [place] Guidance for arthrocentesis of Major jointon 10-26-2024 IMPRESSION: Successful fluoroscopically guided aspiration of the RIGHT hip. Head Of Music: RACHELLE Transcribe Date/Time: Oct 26 2024 3:38P Dictated by : DEAN WALLACE DO This examination was interpreted and the report reviewed and electronically signed by: DEAN WALLACE DO on Oct 26 2024 3:41PM [facility] * * *Final Report* * * DATE OF EXAM: Oct 26 2024 1:37PM MDX 5101 - XR HIP ASPIRATION RT / PROCEDURE REASON: multiple diagnoses * * * * Physician Interpretation * * * * FLUOROSCOPICALLY GUIDED RIGHT HIP ASPIRATION INDICATION: 74 years old Female with Pain in prosthetic joint, initial encounter Status post hip replacement, right presents for RIGHT hip aspiration CONSENT: The risks, benefits, treatment options, potential complications and personnel to be involved were discussed with the patient. All questions were answered and consent was obtained. The patient indicated willingness to proceed. GENERAL: a) Pre-procedure Sign-in: Safety Checklist Performed Yes b) Positioning: The patient was placed supine on the fluoroscopy table. c) The RIGHT hip was then sterilely prepped and draped. d) Time Out: A time out was performed immediately prior to procedure start. Procedure Start Time / Timeout Time: 1321 e) Anesthesia Type: Local anesthesia: 4 mL 1% Lidocaine PROCEDURE: a) Procedure Details: 18g spinal needle was inserted into the RIGHT hip joint. 2 mL bloody fluid aspirated. The needle was removed. Images were stored to the permanent digital archive documenting needle position. b) Injectate Contents: N/A c) Estimated Blood Loss: 0 mL d) Specimens: 2 mL of bloody fluid aspirated. RADIATION DOSE Fluoroscopic Radiation Summary: Plane A, Air Kerma: 1.2 mGy Dose Area Product (DAP): mGy*cm\S\2 Fluoro time: 0:12 min:sec POST PROCEDURE: a) Hemostasis: Hemostasis was achieved using light manual compression. b) Sign-out: Communication Performed Yes c) Procedure End Time: 1325 d) Conclusion: The patient was discharged from the radiology department in stable condition. COMPLICATIONS: a) Significant Patient Complication: None b) Complications during the procedure: None RESULTS: Aspirate was obtained from the joint. [facility] Provider, Yasmeen Ovallerhona martinez [place] - 10/26/2024 * * *Final Report* * * DATE OF EXAM: Oct 26 2024 1:37PM MDX 5101 - XR HIP ASPIRATION RT / PROCEDURE REASON: multiple diagnoses * * * * Physician Interpretation * * * * FLUOROSCOPICALLY GUIDED RIGHT HIP ASPIRATION INDICATION: 74 years old Female with Pain in prosthetic joint, initial encounter Status post hip replacement, right presents for RIGHT hip aspiration CONSENT: The risks, benefits, treatment options, potential complications and personnel to be involved were discussed with the patient. All questions were answered and consent was obtained. The patient indicated willingness to proceed. GENERAL: a) Pre-procedure Sign-in: Safety Checklist Performed Yes b) Positioning: The patient was placed supine on the fluoroscopy table. c) The RIGHT hip was then sterilely prepped and draped. d) Time Out: A time out was performed immediately prior to procedure start. Procedure Start Time / Timeout Time: 1320 e) Anesthesia Type: Local anesthesia: 4 mL 1% Lidocaine PROCEDURE: a) Procedure Details: 18g spinal needle was inserted into the RIGHT hip joint. 2 mL bloody fluid aspirated. The needle was removed. Images were stored to the permanent digital archive documenting needle position. b) Injectate Contents: N/A c) Estimated Blood Loss: 0 mL d) Specimens: 2 mL of bloody fluid aspirated. RADIATION DOSE Fluoroscopic Radiation Summary: Plane A, Air Kerma: 1.2 mGy Dose Area Product (DAP): mGy*cm\S\2 Fluoro time: 0:12 min:sec POST PROCEDURE: a) Hemostasis: Hemostasis was achieved using light manual compression. b) Sign-out: Communication Performed Yes c) Procedure End Time: 1325 d) Conclusion: The patient was discharged from the radiology department in stable condition. COMPLICATIONS: a) Significant Patient Complication: None b) Complications during the procedure: None RESULTS: Aspirate was obtained from the joint. IMPRESSION IMPRESSION: Successful fluoroscopically guided aspiration of the RIGHT hip. Head Of Music: PSCB Transcribe Date/Time: Oct 26 2024 3:38P Dictated by : DEAN WALLACE DO This examination was interpreted and the report reviewed and electronically signed by: DEAN WALLACE DO on Oct 26 2024 3:41PM EST [facility] Study observation (narrative) Facundo Champion Guidance for arthrocentesis of Major jointOrdered By: [facility] Provider on 10-26-2024 [facility] SYNOVIAL FLUID MANUAL DIFFon 10-26-2024 DIF TTL, SYNOVIAL FLUID 100 cells counted Normal [facility] Comment on above: Order Comment: Speci men Type: FLUID SPECIMEN Ordering Facility: [facility] Address: [address] [place] [address] Performed By: #### L [id number], RTSYNF #### [facility] CLIA [id number] [address] [place] [address] [place] #### SFCRID #### [facility] CLIA [id number] [address] [place] [address] [place] [facility] CLIA [id number] [address] [place] [address] [place] LYMPH%, SF 5 Normal [facility] Comment on above: Order Comment: Speci men Type: FLUID SPECIMEN Ordering Facility: [facility] Address: [address] [place] [address] Performed By: #### L [id number], RTSYNF #### [facility] CLIA [id number] [address] [place] [address] [place] #### SFCRID #### [facility] CLIA [id number] [address] [place] [address] [place] [facility] CLIA [id number] [address] [place] [address] [place] MONO%, SF 6 Normal [facility] Comment on above: Order Comment: Speci men Type: FLUID SPECIMEN Ordering Facility: [facility] Address: [address] [place] [address] Performed By: #### L [id number], RTSYNF #### [facility] CLIA [id number] [address] [place] [address] [place] #### SFCRID #### [facility] CLIA [id number] [address] [place] [address] [place] [facility] CLIA [id number] [address] [place] [address] [place] NEUT% 89 High 0-<25 [facility] Comment on above: Order Comment: Speci men Type: FLUID SPECIMEN Ordering Facility: [facility] Address: [address] [place] [address] Performed By: #### L [id number], RTSYNF #### [facility] CLIA [id number] [address] [place] [address] [place] #### SFCRID #### [facility] CLIA [id number] [address] [place] [address] [place] [facility] CLIA [id number] [address] [place] [address] [place] SYNOVIAL FLUID, CRYSTAL ID/P ATHOLOGIST INTERPRETATIONon 10-26-2024 CRYSTAL PRELIM, SF PRELIMINARY REPORT N o diagnostic crystals seen. SEE FINAL SF PATH REVIEW Normal [facility] Comment on above: Order Comment: Speci men Type: FLUID SPECIMEN Ordering Facility: [facility] Address: [address] [place] [address] Performed By: #### L [id number], RTSYNF #### [facility] CLIA [id number] [address] [place] [address] [place] #### SFCRID #### [facility] CLIA [id number] [address] [place] [address] [place] [facility] CLIA [id number] [address] [place] [address] STATES [place] AKI CRYSTAL REVIEW Reviewed by Ankit Ordonez MD, Ph.D ([id number]) Normal [facility] Comment on above: Order Comment: Speci men Type: FLUID SPECIMEN Ordering Facility: [facility] Address: [address] [place] [address] Performed By: #### L [id number], RTSYNF #### [facility] CLIA [id number] [address] [place] [address] [place] #### SFCRID #### [facility] CLIA [id number] [address] [place] [address] [place] [facility] CLIA [id number] [address] [place] [address] [place] Crystals LM Nom (Syn fld) None seen Normal None seen [facility] Comment on above: Order Comment: Speci men Type: FLUID SPECIMEN Ordering Facility: [facility] Address: [address] [place] [address] Performed By: #### L [id number], RTSYNF #### [facility] CLIA [id number] [address] [place] [address] [place] #### SFCRID #### [facility] CLIA [id number] [address] [place] [address] [place] [facility] CLIA [id number] [address] [place] [address] [place] SYNOVIAL FLUID, ROUTINEon Clarity (Unsp spec) Clear Normal Clear [facility] Comment on above: Order Comment: Speci men Type: FLUID SPECIMEN Ordering Facility: [facility] Address: [address] [place] [address] Performed By: #### L [id number], RTSYNF #### [facility] CLIA [id number] [address] [place] [address] [place] #### SFCRID #### [facility] CLIA [id number] [address] [place] [address] [place] [facility] CLIA [id number] [address] [place] [address] [place] Color (Syn fld) Hemolyzed Abnormal Yellow [facility] Comment on above: Order Comment: Speci men Type: FLUID SPECIMEN Ordering Facility: [facility] Address: [address] [place] [address] Performed By: #### L [id number], RTSYNF #### [facility] CLIA [id number] [address] [place] [address] [place] #### SFCRID #### [facility] CLIA [id number] [address] [place] [address] [place] [facility] CLIA [id number] [address] [place] [address] [place] RBC Manual cnt (Syn fld) [#/Vol] 919804 /uL High <2000 [facility] Comment on above: Order Comment: Speci men Type: FLUID SPECIMEN Ordering Facility: [facility] Address: [address] [place] [address] Result Comment: Clot anrel specimen Performed By: #### L [id number], RTSYNF #### [facility] CLIA [id number] [address] [place] [address] [place] #### SFCRID #### [facility] CLIA [id number] [address] [place] [address] [place] [facility] CLIA [id number] [address] [place] [address] [place] Specimen source Nom (Unsp spec) Hip, Right Normal [facility] Comment on above: Order Comment: Speci men Type: FLUID SPECIMEN Ordering Facility: [facility] Address: [address] [place] [address] Performed By: #### L [id number], RTSYNF #### [facility] CLIA [id number] [address] [place] [address] [place] #### SFCRID #### [facility] CLIA [id number] [address] [place] [address] [place] [facility] CLIA [id number] [address] [place] [address] [place] WBC Manual cnt (Syn fld) [#/Vol] 2333 /uL High 0-200 [facility] Comment on above: Order Comment: Speci men Type: FLUID SPECIMEN Ordering Facility: [facility] Address: [address] [place] [address] Result Comment: Clot arnel specimen Performed By: #### L [id number], RTSYNF #### [facility] CLIA [id number] [address] [place] [address] [facility] #### SFCRID #### [facility] CLIA [id number] [address] [place] [address] [facility] CLIA [id number] [address] [place] [address] XR HIP ASPIRATION RTon 10-26 XR HIP ASPIRATION RT * * *Final Report* * * DATE OF EXAM: Oct 26 2024 1:37PM MDX 5101 - XR HIP ASPIRATION RT / PROCEDURE REASON: multiple diagnoses * * * * Physician Interpretation * * * * FLUOROSCOPICALLY GUIDED RIGHT HIP ASPIRATION INDICATION: 74 years old Female with Pain in prosthetic joint, initial encounter Status post hip replacement, right presents for RIGHT hip aspiration CONSENT: The risks, benefits, treatment options, potential complications and personnel to be involved were discussed with the patient. All questions were answered and consent was obtained. The patient indicated willingness to proceed. GENERAL: a) Pre-procedure Sign-in: Safety Checklist Performed Yes b) Positioning: The patient was placed supine on the fluoroscopy table. c) The RIGHT hip was then sterilely prepped and draped. d) Time Out: A time out was performed immediately prior to procedure start. Procedure Start Time / Timeout Time: 1321 e) Anesthesia Type: Local anesthesia: 4 mL 1% Lidocaine PROCEDURE: a) Procedure Details: 18g spinal needle was inserted into the RIGHT hip joint. 2 mL bloody fluid aspirated. The needle was removed. Images were stored to the permanent digital archive documenting needle position. b) Injectate Contents: N/A c) Estimated Blood Loss: 0 mL d) Specimens: 2 mL of bloody fluid aspirated. RADIATION DOSE Fluoroscopic Radiation Summary: Plane A, Air Kerma: 1.2 mGy Dose Area Product (DAP): mGy*cmS2 Fluoro time: 0:12 min:sec POST PROCEDURE: a) Hemostasis: Hemostasis was achieved using light manual compression. b) Sign-out: Communication Performed Yes c) Procedure End Time: 1325 d) Conclusion: The patient was discharged from the radiology department in stable condition. COMPLICATIONS: a) Significant Patient Complication: None b) Complications during the procedure: None RESULTS: Aspirate was obtained from the joint. IMPRESSION: Successful fluoroscopically guided aspiration of the RIGHT hip. Head Of Music: RACHELLE Transcribe Date/Time: Oct 26 2024 3:38P Dictated by : DEAN WALLACE DO This examination was interpreted and the report reviewed and electronically signed by: DEAN WALLACE DO on Oct 26 2024 3:41PM EST [id number] [facility] 10-25-2024 [facility] Office Visit (INTMWS ) AZALEA MOTT ([id number]) 1950 F Date Time Provider Department 10/25/24 10:40 AM NAVDEEP HOLCOMB INTMWS During your visit today, we recorded the following information about you: Temperature Pulse Respiration Blood pressure 98.3 degrees 104/minute 20/minute 114/70 Weight 95.8 kg Navdeep Holcomb MD 10/26/2024 9:08 AM Signed Subjective Azalea Alexis Pantera is a 74 year old female here with Uli. Patient presents with: F/U 3 Month She continued to have significant edema of both legs and skin breakdown of the right leg. She was on diuretics furosemide and aldactone. Her hypertension was stable. Atrial fibrillation was recently evaluated by Dr. Greg Turk, for consideration of pacemaker implantation. She was informed she was not a candidate for pacemaker at this time. ACTIVE PROBLEM LIST Hearing Loss in Left Ear Primary Osteoarthritis of Right Hip Hyperlipidemia Ldl Goal <100 Hypertension, Essential Siobhan On Cpap Obesity, Class I, Bmi 30-34.9 Chronic Kidney Insufficiency, Stage 3 (Moderate) (Hcc) Impaired Fasting Glucose Venous Insufficiency Heart Valve Disease Mild Pulmonary Hypertension (Hcc) S/P Total Right Hip Arthroplasty Atrial Fibrillation (Hcc) Other Specified Postprocedural States Congestive Heart Failure (Hcc) Social History Tobacco Use Smoking status: Never Smokeless tobacco: Never Vaping Use Vaping status: Never Used Substance Use Topics Alcohol use: No Drug use: No Current Outpatient Medications Medication Sig meloxicam (MOBIC) 7.5 mg tablet Take 1 tablet by mouth once daily. spironolactone (ALDACTONE) 25 mg tablet Take 1 tablet by mouth once daily. furosemide (LASIX) 40 mg tablet Take 1 tablet by mouth once daily. atorvastatin (LIPITOR) 10 mg tablet Take 1 tablet by mouth daily at bedtime. For cholesterol. metoprolol tartrate, short acting, (LOPRESSOR) 100 mg tablet Take 1 tablet by mouth every 12 hours. polyethylene glycol 3350 17 gram/dose powder Take 17 g by mouth as needed for constipation. Dissolve dose in 4 - 8 ounces of liquid and take as directed. MULTIVITAMIN ORAL Take 1 tablet by mouth once daily. acetaminophen (TYLENOL) 500 mg tablet Take 2 tablets by mouth every 8 hours as needed for pain. apixaban (ELIQUIS) 5 mg tab(s) Take 1 tablet by mouth two times a day. CPAP CPAP Supplies, All Necessary equipment including [...] Take 2,000 Units by mouth once daily. No current facility-administered medications for this visit. Review of Systems Constitutional: Negative for fatigue and fever. Respiratory: Negative for shortness of breath. Cardiovascular: Positive for leg swelling. Negative for chest pain and palpitations. Genitourinary: Negative for dysuria. Skin: Positive for wound. Objective BP 114/70 (BP Site: Left Arm, BP Position: Sitting, BP Cuff Size: Large Adult) Pulse 104 Temp 36.8 ?C (98.3 ?F) (Temporal) Resp 20 Wt 95.8 kg (211 lb 3.2 oz) BMI 34.09 kg/m? Physical Exam Constitutional: General: She is not in acute distress. Cardiovascular: Rate and Rhythm: Tachycardia present. Rhythm irregular. Heart sounds: S1 normal and S2 normal. No murmur heard. No gallop. Pulmonary: Effort: No respiratory distress. Breath sounds: No wheezing or rales. Musculoskeletal: General: No tenderness. Right lower le+ Edema present. Left lower le+ Edema present. Skin: Comments: Few scattered erosions of right lower leg, some with serous drainage. No cellulitis or lymphangitis. Neurological: Mental Status: She is alert. Latest Ref Rng 10/14/2024 Glucose 74 - 99 mg/dL 94 BUN 7 - 21 mg/dL 26 (H) Creatinine 0.58 - 0.96 mg/dL 1.17 (H) Sodium 136 - 144 mmol/L 138 Potassium 3.7 - 5.1 mmol/L 4.6 Chloride 98 - 107 mmol/L 100 CO2 22 - 30 mmol/L 31 (H) Anion Gap 8 - 15 mmol/L 7 (L) Calcium 8.5 - 10.2 mg/dL 10.1 eGFR >=60 mL/min/1.73m? 49 (L) Legend: (H) High (L) Low ASSESSMENT/PLAN: 1. Atrial fibrillation, unspecified type (HCC) - ICD9: 427.31, ICD10: I48.91 (primary diagnosis) Stable. Anticoagulated. 2. Congestive heart failure, unspecified HF chronicity, unspecified heart failure type (HCC) - ICD9: 428.0, ICD10: I50.9 - Compensated - FUROSEMIDE 40 MG TABLET. Resume original BID dosing. This is from her industrial laborer. 3. Venous insufficiency - ICD9: 459.81, ICD10: I87.2 See above. - FUROSEMIDE 40 MG TA (more content not included)... Normal [facility] Carlie 10-17-2024 KYAWN Telephone (ABDOULAYEFridayNA) AZALEA MOTT ([id number]) 1950 F Date Time Provider Department 10/17/24 JAMAL LARIOS During your visit today, we recorded the following information about you: Kasie Escobar RN 10/17/2024 1:34 PM Signed Patient called triage line. States she had blood work on Thursday and had expected a call from the provider that night with the results. Requests call back about results and next steps. Please advise. Jamal Larios PA-C 10/18/2024 4:40 PM Signed Addended by: JAMAL LARIOS on: 10/18/2024 04:40 PM Modules accepted: Orders Kasie Escobar RN 10/19/2024 10:00 AM Signed helpdesk technician notified of orders to sent to radiology. Allergies As of Date: 10/17/2024 Noted Allergy Reaction NORCO (HYDROCODONE-ACETAMINO PHEN) 10/24/2020 14 - Other: See Comments Comments: Weird dreams. Date Reviewed: 10/14/2024 Reviewed by: Jamal Larios PA-C - Fully Assessed Primary Visit Diagnosis:Pain in prosthetic joint, initial encounter [T84.84XA] Other Visit Diagnosis:Status post hip replacement, right [Z96.641] Order(s):IMAGING GUIDED HIP ASPIRATION RIGHT [[id number]] Order #: [id number] FUTURE SYNOVIAL FLUID, ROUTINE [SQRTSYN] Order #: [id number] BACTERIAL CULTURE AND GRAM STAIN, STERILE BODY FLUID [SQBFCUL] Order #: [id number] FUTURE Prescriptions as of 10/19/2024 - meloxicam (MOBIC) 7.5 mg tablet Take 1 tablet by mouth once daily. - spironolactone (ALDACTONE) 25 mg tablet Take 1 tablet by mouth once daily. - furosemide (LASIX) 40 mg tablet Take 1 tablet by mouth once daily. - atorvastatin (LIPITOR) 10 mg tablet Take 1 tablet by mouth daily at bedtime. For cholesterol. - metoprolol tartrate, short acting, (LOPRESSOR) 100 mg tablet Take 1 tablet by mouth every 12 hours. - polyethylene glycol 3350 17 gram/dose powder Take 17 g by mouth as needed for constipation. Dissolve dose in 4 - 8 ounces of liquid and take as directed. - MULTIVITAMIN ORAL Take 1 tablet by mouth once daily. - acetaminophen (TYLENOL) 500 mg tablet Take 2 tablets by mouth every 8 hours as needed for pain. - apixaban (ELIQUIS) 5 mg tab(s) Take 1 tablet by mouth two times a day. - CPAP CPAP Supplies, All Necessary equipment [...] once daily. Problem List As Of Date 10/17/2024 Noted Resolved Dermatophytosis of foot [B35.3] 02/05/2006 03/07/2015 Hereditary and idiopathic peripheral neuropathy* 10/24/2020 Hearing Loss in Left Ear [H91.92] 03/27/2009 Post-menopausal bleeding [N95.0] 11/21/2011 03/28/2016 Thickened endometrium [R93.89] 12/05/2011 03/28/2016 Laurel of foot [L84] 08/17/2013 03/28/2016 Primary osteoarthritis [...] 07/02/2024 Other specified postprocedural states [Z98.890] 07/12/2024 Congestive heart failure (HCC) [I50.9] 09/02/2024 Encounter Status:Closed by KASIE ESCOBAR on 10/17/24 Normal [facility] Basic metabolic 2000 panelon 10-14-2024 Anion gap [Moles/Vol] 7 mmol/L Low 8-15 [facility] Comment on above: Order Comment: Speci men Type: BLOOD SPECIMENOrdering Facility: [facility] Address: [address] [place] [address] Performed By: #### 2 43203-10, 1987-07 ####[facility] [id number] [place] [address] [place] Calcium [Mass/Vol] 10.1 mg/dL Normal 8.5-10.2 [facility] Comment on above: Order Comment: Speci men Type: BLOOD SPECIMENOrdering Facility: [facility] Address: [address] [place] [address] Performed By: #### 2 43203-10, 1987-07 ####[facility] [id number] [place] [address] [place] Chloride [Moles/Vol] 100 mmol/L Normal 98-107 [facility] Comment on above: Order Comment: Speci men Type: BLOOD SPECIMENOrdering Facility: [facility] Address: [address] [place] [address] Performed By: #### 2 4320-04, 1987-07 ####[facility] [id number] [place] [id number] [place] CO2 [Moles/Vol] 31 mmol/L High 22-30 [facility] Comment on above: Order Comment: Speci men Type: BLOOD SPECIMENOrdering Facility: [facility] Address: [address] [place] [id number] Performed By: #### 2 43203-10, 1987-07 ####[facility] [id number] [place] [address] [place] Creatinine [Mass/Vol] 1.17 mg/dL High 0.58-0.96 [facility] Comment on above: Order Comment: David del real Type: BLOOD SPECIMENOrdering Facility: [facility] Address: [address] [place] [address] Performed By: #### 2 4320-04, 1987-07 ####[facility]ORY[facility] [id number] [place] [address] [place] eGFRcr SerPlBld CKD-EPI 2020 49 mL/min/1.73m??? Low >=60 [facility] Comment on above: Order Comment: David del real Type: BLOOD SPECIMENOrdering Facility: [facility] Address: [address] [place] [address] Result Comment: Jessica mated Glomerular Filtration Rate [...] reflect actual GFR. Performed By: #### 2 43203-10, 1987-07 ####[facility] [id number] [place] [id number] [place] Glucose [Mass/Vol] 94 mg/dL Normal 74-99 [facility] Comment on above: Order Comment: David del real Type: BLOOD SPECIMENOrdering Facility: [facility] Address: [address] [place] [address] Result Comment: The [place] Diabetes Association (ADA) provides guidance for cutoff [...] Standards of Medical Care in Diabetes 2016, [place] Diabetes Association. Diabetes Care. 2016.39(Suppl 1). Performed By: #### 2 4320-04, 1987-07 ####[facility]ORY[facility]IA [id number] [address] STATES OF [facility] Potassium [Moles/Vol] 4.6 mmol/L Normal 3.7-5.1 [facility] Comment on above: Order Comment: David del real Type: BLOOD SPECIMENOrdering Facility: [facility] Address: [address] [place] [address] Performed By: #### 2 4320-04, 1987-07 ####[facility] [id number] [address] Sodium [Moles/Vol] 138 mmol/L Normal 136-144 [facility] Comment on above: Order Comment: David del real Type: BLOOD SPECIMENOrdering Facility: [facility] Address: [address] [place] [address] Performed By: #### 2 4320-04, 1987-07 ####[facility]ORY[facility]IA [id number] [address] STATES [facility] Urea nitrogen [Mass/Vol] 26 mg/dL High 7-21 [facility] Comment on above: Order Comment: David del real Type: BLOOD SPECIMENOrdering Facility: [facility] Address: [address] [place], [place] [address] [address] Performed By: #### 2 4320-04, 1987-07 ####[facility]ORYCLIA [id number] [place] [id number] [facility] CNOVon 10-14-2024 CNOV Office Visit (ORMDNA ) AZALEA MOTT ([id number]) 1950 F Date Time Provider Department 10/14/24 11:10 AM JAMAL LARIOS During your visit today, we recorded the following information about you: Jamal Larios PA-C 10/14/2024 12:44 PM Signed Post-op Office Visit Azalea Mott 74 year old October 14, 2024 7:40 AM Surgery Date: 06/30/2024 History: Azalea Mott Is now 3.5 months out from R 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 Post-operative course has been without complication. Patient was admitted to TCU for aftercare. Patient had subsequent A-fib with RVR with heart rate in the 160-170 range on July 02. Currenlty on metoprolol and new Eliquis due to afib. Has cardiac follow up set up. Patient was previously having poor control of swelling. She had increased Lasix to 40mg BID. Educated on proper elevation and compression technique. Was seen by IM on 08/29/2024. Continues to have 2+ pitting edema to BLE Subjective: Patient having groin pain, buttocks pain, and radiating pain to the knee. Continues to have swelling in RLE with open area that is draining clear serous fluid. She is unable to find comfortable position. Also having difficulty with hip flexion with associated pain and weakness. Objective: Incision well healed Distally DP/PT palpable Distally S/S/SP/DP/T intact at baseline Distally DF/EHL/PF intact at baseline Negative lillie/calf tenderness Unable to fully extend leg. IR and ER elicit groin and buttocks pain. Having difficulty performing SLR. Open wound to mid tibia with clear serous drainage. No surrounding erythema. Xrays: Intact SYLVESTER without evidence of fracture, lytic lesions, or change of position in components Assessment and Plan: Azalea Mott Is here for a second post-op appointment, overall doing well -continued ice, rest, and use of non-narcotic analgesia as needed -wean off ambulatory aids -discussed home exercises and therapy -WBAT on operative extremity -CRP and ESR for infection rule out, if positive will need hip aspiration. If negative will send prednisone for pain. -may continue tylenol. Patient has oxycodone at home as well -open area of skin to lua was cleaned, placed xeroform, and dry dressing was placed. Advised to keep clean and covered. I spent a total of approximately 25 minutes on the date of the service which included preparing to see the patient, [id number]-[id number]-[id number] patient care, completing clinical documentation, obtaining and/or reviewing separately obtained history, performing a medically appropriate examination, counseling and educating the patient/family/caregiv er, ordering medications, tests, or procedures, independently interpreting results (not separately reported), communicating results to the patient/family/caregiv er, and care coordination (not separately reported). Jamal Larios PA-C Orthopaedic Surgery Allergies As of Date: 10/14/2024 Noted Allergy Reaction NORCO (HYDROCODONE-ACETAMINO PHEN) 10/24/2020 14 - Other: See Comments Comments: Weird dreams. Date Reviewed: 10/14/2024 Reviewed by: aJmal Larios PA-C - Fully Assessed Reason for Visit: Pain [78] Primary Visit Diagnosis:Status post right hip replacement [Z96.641] Other Visit Diagnosis:Pain in prosthetic joint, initial encounter [T84.84XA] Order(s):XR HIP GENERAL 3V PELV/AP/LAT RIGHT [[id number]] Order #: [id number] FUTURE C-REACTIVE PROTEIN [SQCRP] Order #: [id number] FUTURE SEDIMENTATION RATE, WESTERGREN [SQWSR] Order #: [id number] FUTURE Prescriptions as of 10/14/2024 - meloxicam (MOBIC) 7.5 mg tablet Take 1 tablet by mouth once daily. - spironolactone (ALDACTONE) 25 mg tablet Take 1 tablet by mouth once daily. - furosemide (LASIX) 40 mg tablet Take 1 tablet by mouth once daily. - atorvastatin (LIPITOR) 10 mg tablet Take 1 tablet by mouth daily at bedtime. For cholesterol. - metoprolol tartrate, short acting, (LOPRESSOR) 100 mg tablet Take 1 tablet by mouth every 12 hours. - polyethylene glycol 3350 17 gram/dose powder Take 17 g by mouth as needed for constipation. Dissolve dose in 4 - 8 ounces of liquid and take as directed. - MULTIVITAMIN ORAL Take 1 tablet by mouth once daily. - acetaminophen (TYLENOL) 500 mg tablet Take 2 tablets by mouth every 8 hours as needed for pain. - apixaban (ELIQUIS) 5 mg tab(s) Take 1 tablet by mouth two times a day. - CPAP CPAP Supplies, All Necessary equipment [...] by mouth daily with breakfast. - cholecalciferol ( (more content not included)... Normal [facility] CRP SerPl-mCncon 10-14-2024 CRP [Mass/Vol] mg/L Normal <0.9 [facility] Comment on above: Order Comment: Speci men Type: BLOOD SPECIMENOrdering Facility: [facility] Address: [address] [place] [address] Performed By: #### 2 4321-2, 1987-07 ####[facility]ORYCLIA [id number] [place] [address] [place] ESR Westergren method (Bld) [Velocity]on 10-14-2024 ESR (Bld) [Velocity] 37 mm/h High 0-20 [facility] Comment on above: Order Comment: Speci men Type: BLOOD SPECIMENOrdering Facility: [facility] Address: [address] [place] [address] Performed By: #### 4 537-7 ####[facility] LABCLIA [id number] [place] [id number] [place] XR HIP 3V PELV+ AP/LAT RTon 10-14-2024 XR HIP 3V PELV+ AP/LAT RT * * *Final Report* * * DATE OF EXAM: Oct 14 2024 11:55AM ОЛЕГ 5352 - XR HIP 3V PELV+ AP/LAT RT / PROCEDURE REASON: multiple diagnoses * * * * Physician Interpretation * * * * EXAMINATION / TECHNIQUE: XR HIP 3V PELV+ AP/LAT RT HISTORY: PT c/o groin pain of right hip Status post right hip replacement Pain in prosthetic joint, initial encounter COMPARISON: 07/20/2024. FINDINGS: Status post right total hip arthroplasty with orthopedic hardware in standard position and alignment. There is no periprosthetic lucency or fracture. IMPRESSION: Status post right total hip arthroplasty without evidence of complication. Head Of Music: RACHELLE Transcribe Date/Time: Oct 21 2024 8:00P Dictated by : FREEMAN DALLAS MD This examination was interpreted and the report reviewed and electronically signed by: FREEMAN DALLAS MD on Oct 21 2024 8:00PM EST [id number] [facility] 10-10-2024 CNPN Telephone (ORMDNA) AZALEA MOTT ([id number]) 1950 F Date Time Provider Department 10/10/24 ELIGIO BERGERON During your visit today, we recorded the following information about you: Pratibha Panchal RN 10/10/2024 9:40 AM Signed Pt calling RN aravind. S/p R SYLVESTER 06/30/2024 States she's having a lot of pain in her hip. Requesting a call back. Ph. [phone] Spoke with pt Having pain in her thigh, not in her hip. Pain has been going on for about 3-4 weeks. Tylenol and ibuprofen have helped in the past but didn't help last night into today. No new or increased activity in the last few weeks. No falls. She has been limiting her activity per recommendation from her last visit. Pain feels throbbing and sharp. Please advise. 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 Needs to do IT band stretches and start mobic 15mg daily Pt has Eliquis as a medication, unsure if she is still taking it. She is also calling RN line today stating she has not heard back from anyone. Spoke with Azalea. Relayed above. She is taking Eliquis so she is unable to take Mobic. She states she is also taking ibuprofen. Told her she should stop unless her physician who prescribed the Eliquis said it's okay to take. She will stop and only take Tylenol. Sent [employer] message with ITB exercises. She verbalized understanding. Pratibha Panchal RN 10/12/2024 11:23 AM Signed Eligio Bergeron MD You18 hours ago (4:56 PM) She can still take morbid 7.5 mg daily as long as her kidneys are fine and no hx of gi bleeds Relayed above to Azalea and let her know a script was called into the pharmacy for her. She verbalized understanding. Allergies As of Date: 10/10/2024 Noted Allergy Reaction NORCO (HYDROCODONE-ACETAMINO PHEN) 10/24/2020 14 - Other: See Comments Comments: Weird dreams. Date Reviewed: 09/07/2024 Reviewed by: Neeta Foster LPN - Fully Assessed Reason for Visit: Patient Update [1234] Order(s):meloxicam (MOBIC) 7.5 mg tabletTake 1 tablet by mouth once daily.Disp: 30 tabletRfl: 0 Prescriptions as of 10/12/2024 - meloxicam (MOBIC) 7.5 mg tablet Take 1 tablet by mouth once daily. - spironolactone (ALDACTONE) 25 mg tablet Take 1 tablet by mouth once daily. - furosemide (LASIX) 40 mg tablet Take 1 tablet by mouth once daily. - atorvastatin (LIPITOR) 10 mg tablet Take 1 tablet by mouth daily at bedtime. For cholesterol. - metoprolol tartrate, short acting, (LOPRESSOR) 100 mg tablet Take 1 tablet by mouth every 12 hours. - polyethylene glycol 3350 17 gram/dose powder Take 17 g by mouth as needed for constipation. Dissolve dose in 4 - 8 ounces of liquid and take as directed. - MULTIVITAMIN ORAL Take 1 tablet by mouth once daily. - acetaminophen (TYLENOL) 500 mg tablet Take 2 tablets by mouth every 8 hours as needed for pain. - apixaban (ELIQUIS) 5 mg tab(s) Take 1 tablet by mouth two times a day. - CPAP CPAP Supplies, All Necessary equipment [...] once daily. Problem List As Of Date 10/10/2024 Noted Resolved Dermatophytosis of foot [B35.3] 02/05/2006 03/07/2015 Hereditary and idiopathic peripheral neuropathy* 10/24/2020 Hearing Loss in Left Ear [H91.92] 03/27/2009 Post-menopausal bleeding [N95.0] 11/21/2011 03/28/2016 Thickened endometrium [R93.89] 12/05/2011 03/28/2016 Laurel of foot [L84] 08/17/2013 03/28/2016 Primary osteoarthritis [...] 07/02/2024 Other specified postprocedural states [Z98.890] 07/12/2024 Congestive heart failure (HCC) [I50.9] 09/02/2024 Prescriptions ordered this encounter Disp Refills Start End MELOXICAM 7.5 MG TABLET 30 (more content not included)... [facility] (INTMWS[facility] AZALEA MOTT ([id number]) 1950 F Date Time Provider Department 10/04/24 NAVDEEP HOLCOMB INTMWS During your visit today, we recorded the following information about you: Javier Castañeda 10/04/2024 12:01 PM Signed Patient dropped up dated prescription list which is place on nurses desk,-please give to Navdeep Fields MD 10/04/2024 3:08 PM Signed Medication list updated. Furosemide decreased 09/14/24, potassium discontinued, and aldactone added. [facility] issues [facility] by [facility] Current Outpatient Medications Medication Sig spironolactone (ALDACTONE) 25 mg tablet Take 1 tablet by mouth once daily. furosemide (LASIX) 40 mg tablet Take 1 tablet by mouth once daily. atorvastatin (LIPITOR) 10 mg tablet Take 1 tablet by mouth daily at bedtime. For cholesterol. metoprolol tartrate, short acting, (LOPRESSOR) 100 mg tablet Take 1 tablet by mouth every 12 hours. polyethylene glycol 3350 17 gram/dose powder Take 17 g by mouth as needed for constipation. Dissolve dose in 4 - 8 ounces of liquid and take as directed. MULTIVITAMIN ORAL Take 1 tablet by mouth once daily. acetaminophen (TYLENOL) 500 mg tablet Take 2 tablets by mouth every 8 hours as needed for pain. apixaban (ELIQUIS) 5 mg tab(s) Take 1 tablet by mouth two times a day. CPAP CPAP Supplies, All Necessary equipment including [...] Take 2,000 Units by mouth once daily. No current facility-administered medications for this visit. Patient had increased edema and skin breakdown, oozing when in with her today. I recommend she go back to furosemide 40 mg BID x 7 days, then resume once daily. See me or the [facility] if not better, or if skin breakdown raises concern for infection. MD Josephine Randhawa [place], MA 10/04/2024 4:02 PM Signed Patient was notified Pattie Burton MA Allergies As of Date: 10/04/2024 Noted Allergy Reaction NORCO (HYDROCODONE-ACETAMINO PHEN) 10/24/2020 14 - Other: See Comments Comments: Weird dreams. Date Reviewed: 09/07/2024 Reviewed by: Neeta Foster LPN - Fully Assessed Reason for Visit: Patient Update [1234] Primary Visit Diagnosis:Congestive heart failure, unspecified HF chronicity, unspecified heart failure type (HCC) [I50.9] Other Visit Diagnosis:Venous insufficiency [I87.2] Prescriptions as of 10/04/2024 - spironolactone (ALDACTONE) 25 mg tablet Take 1 tablet by mouth once daily. - furosemide (LASIX) 40 mg tablet Take 1 tablet by mouth once daily. - atorvastatin (LIPITOR) 10 mg tablet Take 1 tablet by mouth daily at bedtime. For cholesterol. - metoprolol tartrate, short acting, (LOPRESSOR) 100 mg tablet Take 1 tablet by mouth every 12 hours. - polyethylene glycol 3350 17 gram/dose powder Take 17 g by mouth as needed for constipation. Dissolve dose in 4 - 8 ounces of liquid and take as directed. - MULTIVITAMIN ORAL Take 1 tablet by mouth once daily. - acetaminophen (TYLENOL) 500 mg tablet Take 2 tablets by mouth every 8 hours as needed for pain. - apixaban (ELIQUIS) 5 mg tab(s) Take 1 tablet by mouth two times a day. - CPAP CPAP Supplies, All Necessary equipment [...] once daily. Problem List As Of Date 10/04/2024 Noted Resolved Dermatophytosis of foot [B35.3] 02/05/2006 03/07/2015 Hereditary and idiopathic peripheral neuropathy* 10/24/2020 Hearing Loss in Left Ear [H91.92] 03/27/2009 Post-menopausal bleeding [N95.0] 11/21/2011 03/28/2016 Thickened endometrium [R93.89] 12/05/2011 03/28/2016 Laurel of foot [L84] 08/17/2013 03/28/2016 Primary osteoarthritis of right hip [M16.11] 08/09/2015 Arthritis of right hip [M16.11] 08/09/2015 10/24/2020 Hyperlipidemia LDL goal <100 [E78.5] 01/18/2016 Hypertension, essential [I10] 01/02/2020 SIOBHAN on CPAP [G47.33] 01/27/2020 Obesity, Class I, BMI 30-34.9 [E66.811] 10/25/2020 Chronic kidney i (more content not included)... Normal [facility] Cardiology Visit Reporton Cardiology Visit Report [facility] [address] [place], [place] [address] OFFICE VISIT Date of Service: 09/30/24 MR#: [id number] Acct: [id number] Name: AZALEA MOTT Rep #: [id number] : 1950 Provider: Dr. Rashad bedolla MD Age/Sex: 74/F Location: [facility] Status: Signed HPI HPI History of Present Illness Surgical H P: No Details: # HISTORY OF PRESENT ILLNESS The patient presents for evaluation of paroxysmal atrial fibrillation with ongoing symptoms and concerns regarding heart rate control. The patient is a 74-year-old female with a history of paroxysmal atrial fibrillation, initially diagnosed during preoperative evaluation for right hip surgery in July 2024. Relevant comorbidities include hypertension, obstructive sleep apnea, obesity, and hyperlipidemia. She has been managed with diltiazem, metoprolol, and Eliquis. Notably, she was evaluated in the emergency department on August 25, 2024, for recurrent atrial fibrillation with slow ventricular response, prompting discontinuation of diltiazem and reduction of metoprolol to 50 mg twice daily. Due to subsequent episodes of elevated heart rates in atrial fibrillation, metoprolol was increased to 100 mg twice daily on August 15, 2024, by her primary care provider. Cardiology consultation on September 13, 2024, raised concern for tachy-bradycardia syndrome and difficulty achieving stable heart rate control, leading to the initiation of Holter monitoring. The patient reports that her atrial fibrillation episodes are intermittent, with symptoms including dyspnea on exertion and a sensation of chest heaviness during episodes. She is generally unable to monitor her pulse at home but recalls heart rates exceeding 100 beats per minute during prior hospitalizations. She denies experiencing lightheadedness, dizziness, or presyncope during episodes of bradycardia. She has become more aware of the correlation between her symptoms and atrial fibrillation episodes since her diagnosis. Recent Holter monitor data (partial, as full analysis is pending) indicates recurrent episodes of atrial fibrillation on the , 14th, 16th, and th of the month, with recorded heart rates ranging from 80 to 96 beats per minute during these episodes. No episodes of significant bradycardia have been captured to date, but the monitoring period is ongoing, with completion anticipated tomorrow. Full analysis of the Holter data is pending. Problem list includes paroxysmal atrial fibrillation with periods of rapid ventricular response and sinus bradycardia, consistent with tachy-bradycardia syndrome. # REVIEW OF SYSTEMS CONSTITUTIONAL: Fatigue not mentioned, Fever not mentioned, Chills not mentioned, Weight gain not mentioned, Weight loss not mentioned RESPIRATORY: Shortness of breath positive (with episodes of AFib), Cough not mentioned, Wheezing not mentioned CARDIOVASCULAR: Chest pain (described as heaviness in chest) positive (with episodes of AFib), Palpitations positive (with episodes of AFib), Edema not mentioned, Pain while walking not mentioned NEUROLOGICAL: Dizziness negative, Extremity numbness not mentioned, Extremity weakness not mentioned, Headaches not mentioned, Seizures not mentioned, Tremors not mentioned MUSCULOSKELETAL: Joint pain not mentioned, Joint swelling not mentioned, Back pain not mentioned, Neck pain not mentioned HEMATOLOGIC: Easily bleeds not mentioned, Easily bruises not mentioned, Lymphedema not mentioned, Issues with blood clots not mentioned # PHYSICAL EXAMINATION GENERAL APPEARANCE: The patient is alert, oriented, and conversant, engaging appropriately in discussion. She is seated comfortably and demonstrates no visible distress during the encounter. EYES: No periorbital abnormalities or conjunctival changes were noted on inspection. EARS/NOSE/THROAT: Oral mucous membranes appear moist. No lesions or abnormalities of the lips or oropharynx were observed. HEAD/NECK: Head is normocephalic without evidence of trauma. Neck demonstrates full range of motion without rigidity. LUNGS: On inspection, there is no use of accessory muscles. Auscultation reveals clear breath sounds bilaterally without wheezes, rales, or rhonchi. CARDIAC: Cardiac auscultation reveals a regular rate and rhythm at the time of examination. No murmurs, rubs, or gallops are appreciated. No peripheral edema is observed. MUSCLES/EXTREMITIES: The patient is able to sit forward and move without difficulty. No swelling or deformity of the extremities is noted. SKIN: No rashes, lesions, or abnormalities are observed on exposed skin. NEUROLOGICAL: Speech is fluent and appropriate. The patient demonstrates intact attention and memory during conversation. No gross motor or coordination deficits are observed. PSYCHIATRIC: Mood and affect a (more content not included)... Normal [facility] Cardiology Visit Reporton Cardiology Visit Report [facility] [address] [place] [address] OFFICE VISIT Date of Service: 09/13/24 MR#: [id number] Acct: [id number] Name: MOTTAZALEA BUD Rep #: [id number] : 1950 Provider: DEMETRICE Almeida Age/Sex: 74/F Location: [facility] [place] Status: Signed HPI HPI History of Present [...] for rate control. On apixaban for anticoagulation. She was in the office to see Dr. Mena the beginning of August. She had complained of lower extremity edema. He added Lasix. This did not help with her edema. Patient was in the emergency room on August 25 for palpitations. EKG demonstrated atrial fibrillation with slow ventricular rate. Her heart rate was in the 40s on the monitor. Her diltiazem was stopped. And her metoprolol was decreased to 50 mg twice a day. Hopefully by doing this her lower extremity edema will have improved. Her BNP was elevated. PCP increased her metoprolol back to 100 mg twice a day for an increased HR. Her HR was in the 100s. He did not get an EKG at that time. Her PCP did start her metolazone for 14 days however that was stopped with concerns over her elevated HRs. Patient now notes at times that she still does have low heart rates. Overall patient still is concerned about her lower extremity edema. She is unable to wear any shoes except flip-flops because of the edema. It does not really improve in the morning. She still does occasionally have fast heart rates. She does have shortness of breath. She also feels that she is just fatigued. EKG today demonstrates sinus bradycardia with marked sinus arrhythmia with incomplete right bundle branch block with a heart rate of 56 Intake Vital Signs 08/25/24 17:02 09/13/24 09:16 Height 5 ft 6 in 5 ft 6 in Weight: 220 lb BMI 35.5 BP 131/74 H Blood Pressure Location Lt brachial Position Sitting Respiration 18 Pulse 66 Pulse Source NIBP Intake Visit Reasons: S/P (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: No Is patient in pain?: No Allergies hydrocodone Adverse Reaction (Unknown, Verified 09/13/24 09:22) Weird dreams Medications ???Medication ???Instructions ???Recorded ???Confirmed ???Type atorvastatin 10 mg tablet 10 mg PO QHS cholesterol 07/06/24 09/13/24 History multivitamin (Daily Multi-Vitamin 1 tab PO DAILY Supplement 5 09/13/24 History tablet) acetaminophen 500 mg tablet 1,000 mg PO Q8 PRN pain 08/10/24 0 09/13/24 History ferrous sulfate 325 mg (65 mg 650 mg PO QDAY 08/10/24 09/13/24 H istory iron) tablet apixaban 5 mg tablet (Eliquis) 5 mg PO BID 30 days #60 tabs 08/1209/13/24 Rx ascorbic acid (vitamin C) 500 mg 1,000 mg PO QDAY 09/13/24 09/13/24 History tablet cholecalciferol (vitamin D3) 125 250 mcg PO QDAY 09/13/24 09/13/24 History mcg (5,000 unit) tablet furosemide 40 mg tablet (Lasix) 40 mg PO QDAY #180 tabs 09/13/24 0 09/13/24 Rx metolazone 5 mg tablet 5 mg PO QDAY 09/13/24 09/13/24 His tory metoprolol tartrate 100 mg tablet 100 mg PO BID 09/13/24 09/13/24 H istory sennosides 8.6 mg-docusate sodium 1 tab-cap PO ONCE PRN 09/13/24 History 50 mg capsule (Senna Plus) spironolactone 25 mg tablet 25 mg PO DAILY #90 tabs 09/13/24 0 09/13/24 Rx Ejection fraction %: 63 Have you fallen in the past year?: No PFSH Medical History RBBB Essential (primary) hypertension Atrial fibrillation with RVR Obstructive sleep apnea Hypertensive urgency COVID-19 Hearing loss, left Non-smoker CPAP (continuous positive airway pressure) dependence Chest pain Surgical History Status post right hip replacement History of adenoidectomy History of total right hip arthroplasty History of colonoscopy History of tonsillectomy History of left mastoidectomy History of laparoscopy History of hysteroscopy History of laparoscopic cholecystectomy S/P tubal ligation Family History Mother Hypertension Asthma Diabetes COPD (chronic obstructive pulmonary disease) Crohn's disease Father , at 82. Non-Hodgkin lymphoma CHF (congestive heart failure) CVA (cerebral vascular accident) Sister CHF ( (more content not included)... [facility] Visit (INTMWS ) AZALEA MOTT ([id number]) 1950 F Date Time Provider Department 09/07/24 1:40 PM NAVDEEP HOLCOMB INTMWS During your visit today, we recorded the following information about you: Respiration Blood pressure Weight 20/minute 110/66 96.7 kg Navdeep Holcomb MD 09/07/2024 1:58 PM Signed This note was created using KnowReriter. Subjective Azalea Mott is a 74 year old female. She was somewhat better as far as palpitations. Dyspnea was stable. She had been inadvertently taking lisinopril and I had added metolazone when she came in last week with uncontrolled atrial fibrillation and low blood pressure. I instructed her to go back to 100 mg BID of metoprolol. Her home BP readings are increased to 116/69 yesterday and 132/68 today. Heart rate dropped from 138 to 89/min. Review of Systems Constitutional: Negative for fatigue and unexpected weight change. Respiratory: Negative for chest tightness and shortness of breath. Cardiovascular: Negative for chest pain and palpitations. ACTIVE PROBLEM LIST Hearing Loss in Left Ear Primary Osteoarthritis of Right Hip Hyperlipidemia Ldl Goal <100 Hypertension, Essential Siobhan On Cpap Obesity, Class I, Bmi 30-34.9 Chronic Kidney Insufficiency, Stage 3 (Moderate) (Hcc) Impaired Fasting Glucose Venous Insufficiency Heart Valve Disease Mild Pulmonary Hypertension (Hcc) S/P Total Right Hip Arthroplasty Atrial Fibrillation (Hcc) Other Specified Postprocedural States Congestive Heart Failure (Hcc) Social History Tobacco Use Smoking status: Never Smokeless tobacco: Never Vaping Use Vaping status: Never Used Substance Use Topics Alcohol use: No Drug use: No Current Outpatient Medications Medication Sig atorvastatin (LIPITOR) 10 mg tablet Take 1 tablet by mouth daily at bedtime. For cholesterol. furosemide (LASIX) 40 mg tablet Take 1 tablet by mouth two times a day. metOLazone (ZAROXOLYN) 5 mg tablet Take 1 tablet by mouth every morning for 14 days. potassium chloride 20 mEq TbER Take 1 tablet by mouth once daily. metoprolol tartrate, short acting, (LOPRESSOR) 100 mg tablet Take 1 tablet by mouth every 12 hours. polyethylene glycol 3350 17 gram/dose powder Take 17 g by mouth as needed for constipation. Dissolve dose in 4 - 8 ounces of liquid and take as directed. MULTIVITAMIN ORAL Take 1 tablet by mouth once daily. ascorbic acid, vitamin C, (VITAMIN C) 500 mg tablet Take 1 tablet by mouth two times a day with meals for 19 doses. acetaminophen (TYLENOL) 500 mg tablet Take 2 tablets by mouth every 8 hours as needed for pain. apixaban (ELIQUIS) 5 mg tab(s) Take 1 tablet by mouth two times a day. CPAP CPAP Supplies, All Necessary equipment including [...] Take 2,000 Units by mouth once daily. No current facility-administered medications for this visit. Objective BP 110/66 (BP Site: Right Arm, BP Cuff Size: Large Adult) Resp 20 Wt 96.7 kg (213 lb 3 oz) SpO2 99% BMI 34.41 kg/m? Physical Exam Constitutional: General: She is not in acute distress. Cardiovascular: Rate and Rhythm: Normal rate. Rhythm regularly irregular. Heart sounds: S1 normal and S2 normal. Pulmonary: Breath sounds: Examination of the right-lower field reveals rhonchi. Examination of the left-lower field reveals rhonchi. Rhonchi present. No decreased breath sounds, wheezing or rales. Musculoskeletal: Right lower le+ Pitting Edema present. Left lower le+ Pitting Edema present. Neurological: Mental Status: She is alert. Assessment and Plan 1. Atrial fibrillation with RVR ([facility]) - ICD9: 427.31, ICD10: I48.91 (primary diagnosis) - Controlled. 2. Congestive heart failure, unspecified HF chronicity, unspecified heart failure type (HCC) - ICD9: 428.0, ICD10: I50.9 - HFpEF 50+ - Continue current medications - Metolazone discontinued. - Disregard labs for next week. 3. Hypertension, essential - ICD9: 401.9, ICD10: I10 - Controlled - Continue current medications She will see the [facility] next week. Navdeep Holcomb MD Allergies As of Date: 09/07/2024 Noted Allergy Reaction NORCO (HYDROCODONE-ACETAMINO PHEN) 10/24/2020 14 - Other: See Comments Comments: Weird dreams. Date Reviewed: 09/07/2024 Reviewed by: Neeta Foster LPN - Fully Assessed Reason for Visit: 5 day follow-up [Other] Primary Visit Diagnosis:Atrial fibrillation with (more content not included)... Normal [facility] CNOVon 09-02-2024 CN[facility] Office Visit (INTMWS ) AZALEA MOTT ([id number]) 1950 F Date Time Provider Department 09/02/24 11:40 AM NAVDEEP HOLCOMB INTGILDARDO During your visit today, we recorded the following information about you: Pulse Blood pressure Weight Height 122/minute 106/56 96.8 kg 1.676 m Navdeep Holcomb MD 09/02/2024 12:44 PM Signed This note was created using KnowReriter. Subjective Patient presents with: Tachycardia Azalea Mott is a 74 year old female who noted palpitations and tachycardia yesterday night. She started monitoring her blood pressure and heart rate. Blood pressure was stable. Heart rate varied but was generally in the 120 to 130 range. She was just in the ER 08/25/24 for similar issues and due to congestive heart failure, her diltiazem was discontinued and metoprolol cut to 50 mg BID. She had more edema, so I added metolazone 4 days ago and her edema was improving. For unclear reasons, she got the impression that she was to resume lisinopril. She was scheduled to see the [facility] 09/13/24 for follow up. Review of Systems Constitutional: Negative for fatigue and unexpected weight change. Respiratory: Positive for shortness of breath (stable.). Negative for chest tightness and wheezing. Cardiovascular: Negative for chest pain. Neurological: Negative for dizziness, light-headedness and headaches. ACTIVE PROBLEM LIST Hearing Loss in Left Ear Primary Osteoarthritis of Right Hip Hyperlipidemia Ldl Goal <100 Hypertension, Essential Siobhan On Cpap Obesity, Class I, Bmi 30-34.9 Chronic Kidney Insufficiency, Stage 3 (Moderate) (Hcc) Impaired Fasting Glucose Venous Insufficiency Heart Valve Disease Mild Pulmonary Hypertension (Hcc) S/P Total Right Hip Arthroplasty Atrial Fibrillation (Hcc) Other Specified Postprocedural States Congestive Heart Failure (Hcc) Current Outpatient Medications Medication Sig atorvastatin (LIPITOR) 10 mg tablet Take 1 tablet by mouth daily at bedtime. For cholesterol. furosemide (LASIX) 40 mg tablet Take 1 tablet by mouth two times a day. metOLazone (ZAROXOLYN) 5 mg tablet Take 1 tablet by mouth every morning for 14 days. potassium chloride 20 mEq TbER Take 1 tablet by mouth once daily. metoprolol tartrate, short acting, (LOPRESSOR) 100 mg tablet Take 1 tablet by mouth every 12 hours. polyethylene glycol 3350 17 gram/dose powder Take 17 g by mouth as needed for constipation. Dissolve dose in 4 - 8 ounces of liquid and take as directed. MULTIVITAMIN ORAL Take 1 tablet by mouth once daily. ascorbic acid, vitamin C, (VITAMIN C) 500 mg tablet Take 1 tablet by mouth two times a day with meals for 19 doses. acetaminophen (TYLENOL) 500 mg tablet Take 2 tablets by mouth every 8 hours as needed for pain. apixaban (ELIQUIS) 5 mg tab(s) Take 1 tablet by mouth two times a day. CPAP CPAP Supplies, All Necessary equipment including [...] Take 2,000 Units by mouth once daily. No current facility-administered medications for this visit. Objective BP 106/56 Pulse (!) 122 Ht 167.6 cm (5' 6) Wt 96.8 kg (213 lb 6.5 oz) SpO2 96% BMI 34.44 kg/m? Physical Exam Constitutional: General: She is not in acute distress. Appearance: She is not ill-appearing or diaphoretic. Cardiovascular: Rate and Rhythm: Tachycardia present. Rhythm regularly irregular. Heart sounds: S1 normal and S2 normal. No murmur heard. No gallop. Pulmonary: Effort: No respiratory distress. Breath sounds: No wheezing or rales. Musculoskeletal: Right lower le+ Pitting Edema present. Left lower le+ Pitting Edema present. Neurological: General: No focal deficit present. Mental Status: She is alert. Assessment and Plan 1. Atrial fibrillation with RVR (HCC) - ICD9: 427.31, ICD10: I48.91 (primary diagnosis) Extra dose of metoprolol tartrate. See printed instructions or information. 2. Hypertension, essential - ICD9: 401.9, ICD10: I10 - Controlled - Do not take LISINOPRIL. - Hold METOLAZONE for now. 3. Congestive heart failure, unspecified HF chronicity, unspecified heart failure type (HCC) - ICD9: 428.0, ICD10: I50.9 Improving. - Continue current medications FUROSEMIDE. Shared medical decision making was done. [place] situation is to go to the ER. She preferred to try and manage this at home. Close follow up recommended. She will go to ER if heart rate does not improve ior symptoms worsen. (more content not included)... Normal [facility] CNOVon 08-31-2024 CNOV Office Visit (ORMDNA ) AZALEA MOTT ([id number]) 1950 F Date Time Provider Department 08/31/24 10:30 AM JAMAL LARIOS During your visit today, we recorded the following information about you: Jamal Larios PA-C 08/31/2024 11:55 AM Signed Post-op Office Visit Azalea Mott 74 year old August 30, 2024 3:56 PM Surgery Date: 06/30/2024 History: Azalea Mott Is now 9 weeks out from R 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 Post-operative course has been without complication. Patient was admitted to TCU for aftercare. Patient had subsequent A-fib with RVR with heart rate in the 160-170 range on July 02. Currenlty on metoprolol and new Eliquis due to afib. Has cardiac follow up set up. Patient was previously having poor control of swelling. She had increased Lasix to 40mg BID. Educated on proper elevation and compression technique. Was seen by IM on 08/29/2024. Continues to have 2+ pitting edema to BLE Subjective: Patient reports no pain. Overall is doing well. - ambulatory aid - opioid pain medication Objective: Ambulates without assistance Incision well-approximated, no drainage, normal lyndsey-incisional erythema Arcs of motion at hip are comfortable and fluid Distally DP/PT palpable Distally S/S/SP/DP/T intact at baseline Distally DF/EHL/PF intact at baseline Negative lillie/calf tenderness Xrays: No new today Assessment and Plan: Azalea Mott Is here for a second post-op appointment, overall doing well -continued ice, rest, and use of non-narcotic analgesia as needed -wean off ambulatory aids -discussed home exercises and therapy -WBAT on operative extremity -will see back at 6 month appointment for clinical exam and post-op xrays--can see earlier if needed -discussed red flag symptoms of acutely increasing pain, new erythema, new swelling, drainage, shortness of breath Jamal Larios PA-C Orthopaedic Surgery Allergies As of Date: 08/31/2024 Noted Allergy Reaction NORCO (HYDROCODONE-ACETAMINO PHEN) 10/24/2020 14 - Other: See Comments Comments: Weird dreams. Date Reviewed: 08/31/2024 Reviewed by: Frida Bourgeois LPN - Fully Assessed Reason for Visit: Established Patient [175] Follow Up [171] Hip Replacement [324] Primary Visit Diagnosis:Leg swelling [M79.89] Other Visit Diagnosis:Status post right hip replacement [Z96.641] Order(s):XR HIP GENERAL 3V PELV/AP/LAT RIGHT [[id number]] Order #: [id number] FUTURE Prescriptions as of 08/31/2024 - atorvastatin (LIPITOR) 10 mg tablet Take 1 tablet by mouth daily at bedtime. For cholesterol. - metoprolol succinate ER (TOPROL XL) 100 mg Take 0.5 tablets by mouth two times a day. - furosemide (LASIX) 40 mg tablet Take 1 tablet by mouth two times a day. - metOLazone (ZAROXOLYN) 5 mg tablet Take 1 tablet by mouth every morning for 14 days. - potassium chloride 20 mEq TbER Take 1 tablet by mouth once daily. - metoprolol tartrate, short acting, (LOPRESSOR) 100 mg tablet Take 1 tablet by mouth every 12 hours. - polyethylene glycol 3350 17 gram/dose powder Take 17 g by mouth as needed for constipation. Dissolve dose in 4 - 8 ounces of liquid and take as directed. - MULTIVITAMIN ORAL Take 1 tablet by mouth once daily. - ascorbic acid, vitamin C, (VITAMIN C) 500 mg tablet Take 1 tablet by mouth two times a day with meals for 19 doses. - acetaminophen (TYLENOL) 500 mg tablet Take 2 tablets by mouth every 8 hours as needed for pain. - apixaban (ELIQUIS) 5 mg tab(s) Take 1 tablet by mouth two times a day. - CPAP CPAP Supplies, All Necessary equipment [...] once daily. Problem List As Of Date 08/31/2024 Noted Resolved Dermatophytosis of foot [B35.3] 02/05/2006 03/07/2015 Hereditary and idiopathic peripheral neuropathy* 10/24/2020 Hearing Loss in Left Ear [H91.92] 03/27/2009 Post-menopausal bleeding [N95.0] 11/21/2011 03/28/2016 Thickened endometrium [R93.89] 12/05/2011 03/28/2016 [place] of foot [L84] 08/17/2013 03/28/2016 Primary osteoarthritis of right hip [M16.11] 08/09/2015 Arthritis of right hip [M16.11] 08/09/2015 10/24/2020 Hyperlipidemia LDL goal <100 [E78.5] 01/18/2016 Hypertension, essential [I10] 01/02/2020 SIOBHAN on CPAP [G47.33] 01/27/2020 Obesity, Class I, BMI 30-34.9 [E66.811] 10/25/2020 Chronic kidney insufficiency, stage 3 (moderate*08/25/2023 Impaired fasting glucose [R73.01] 04/06/2023 (more content not included)... Normal [facility] CNOVon 08-29-2024 CNOV Office Visit (INTMWS ) AZALEA MOTT ([id number]) 1950 F Date Time Provider Department 08/29/24 2:20 PM NAVDEEP HOLCOMB INTMWS During your visit today, we recorded the following information about you: Temperature Pulse Respiration Blood pressure 97.6 degrees 56/minute 16/minute 116/58 Weight 100.1 kg Navdeep Holcomb MD 08/29/2024 3:57 PM Signed This note was created using KnowReriter. Subjective Azalea Mott is a 74 year old female here with Uli. She was seen in the ED on 08/25/24 for dyspnea on exertion and palpitations. Work up revealed findings of congestive heart failure on chest X-ray and elevated BNP. In consultation with her industrial laborer, diltiazem was discontinued and metoprolol was reduced to 1/2 tablet BID. Even though furosemide was doubled by her industrial laborer 2 weeks earlier, edema was persistent and urination did not increase as expected. She had a cardiology follow up in 2 weeks (09/13/24). Review of Systems Constitutional: Negative for fatigue and unexpected weight change. Respiratory: Negative for cough, shortness of breath and wheezing. Cardiovascular: Positive for leg swelling. Negative for chest pain and palpitations. Gastrointestinal: Negative. Genitourinary: Negative. Neurological: Negative for dizziness, syncope and headaches. ACTIVE PROBLEM LIST Hearing Loss in Left Ear Primary Osteoarthritis of Right Hip Hyperlipidemia Ldl Goal <100 Hypertension, Essential Siobhan On Cpap Obesity, Class I, Bmi 30-34.9 Chronic Kidney Insufficiency, Stage 3 (Moderate) (Hcc) Impaired Fasting Glucose Venous Insufficiency Heart Valve Disease Mild Pulmonary Hypertension (Hcc) S/P Total Right Hip Arthroplasty Atrial Fibrillation (Hcc) Other Specified Postprocedural States Social History Tobacco Use Smoking status: Never Smokeless tobacco: Never Vaping Use Vaping status: Never Used Substance Use Topics Alcohol use: No Drug use: No Current Outpatient Medications Medication Sig potassium chloride 20 mEq TbER Take 1 tablet by mouth once daily. furosemide (LASIX) 40 mg tablet Take 1 tablet by mouth once daily for 14 days. (Patient taking differently: Take 40 mg by mouth two times a day.) polyethylene glycol 3350 17 gram/dose powder Take 17 g by mouth as needed for constipation. Dissolve dose in 4 - 8 ounces of liquid and take as directed. metoprolol succinate ER (TOPROL XL) 100 mg Take 1 tablet by mouth two times a day. (Patient taking differently: Take 50 mg by mouth two times a day.) MULTIVITAMIN ORAL Take 1 tablet by mouth once daily. ascorbic acid, vitamin C, (VITAMIN C) 500 mg tablet Take 1 tablet by mouth two times a day with meals for 19 doses. acetaminophen (TYLENOL) 500 mg tablet Take 2 tablets by mouth every 8 hours as needed for pain. (Patient taking differently: Take 1,000 mg by mouth two times a day with meals.) apixaban (ELIQUIS) 5 mg tab(s) Take 1 tablet by mouth two times a day. atorvastatin (LIPITOR) 10 mg tablet Take 1 tablet by mouth daily at bedtime. For cholesterol. (Patient taking differently: Take 1 tablet by mouth daily at bedtime. For cholesterol.) CPAP CPAP Supplies, All Necessary equipment including [...] Take 2,000 Units by mouth once daily. metoprolol tartrate, short acting, (LOPRESSOR) 100 mg tablet Take 1 tablet by mouth every 12 hours. dilTIAZem CD (CARDIZEM CD, CARTIA XT) 300 mg 24 hr capsule Take 1 capsule by mouth once daily. Patient should start on July 06, 2024. (Patient not taking: Reported on 08/29/2024) No current facility-administered medications for this visit. Objective BP 116/58 Pulse (!) 56 Temp 36.4 ?C (97.6 ?F) (Temporal) Resp 16 Wt 100.1 kg (220 lb 10.9 oz) SpO2 100% BMI 35.62 kg/m? Physical Exam Constitutional: General: She is not in acute distress. HENT: Head: Normocephalic. Cardiovascular: Rate and Rhythm: Regular rhythm. Bradycardia present. Heart sounds: No murmur heard. No gallop. Pulmonary: Breath sounds: Normal breath sounds. Musculoskeletal: Right lower le+ Pitting Edema present. Left lower le+ Pitting Edema present. Neurological: Mental Status: She is alert. Assessment and Plan : 1. Congestive heart failure, unspecified HF chronicity, unspecified heart failure type (HCC) - ICD9: 428.0, ICD10: I50.9 (primary diagnosis) - HFpEF 50+ - FUROSEMIDE 40 MG TABLET - METOLAZONE 5 MG TABL (more content not included)... Normal [facility] Venous duplex ultrasound rep ortOrdered By: Bean Crawford on 08-29-2024 US Vein [facility] [address] [place] [address] Venous Duplex US - Jaswinder Extrem 08/24/24 1252 MR#: [id number] Acct: [id number] Name: AZALEA MOTT Rep #:[id number] : 1950 74 From: Bean Rodgers Attending Dr: Dr. Rosalio Mena MD Status: REG CLI Ordering Dr: Rosalio Mena MD Date: Location: CVS Sex: F C Admitted: Reason For Study Reason For Study: Swelling RIGHT LEFT GSV is normal. GSV is normal. CFV is compressible, spontaneous, phasic, competent CFV is compressible, spontaneous, phasic, competent, and demonstrates normal augmentation. and demonstrates normal augmentation. FV is compressible, spontaneous, phasic, competent FV is compressible, spontaneous, phasic, competent and demonstrates normal augmentation. and demonstrates normal augmentation. POP V is compressible, spontaneous, phasic, competent POP V is compressible, spontaneous, phasic, competent and demonstrates normal augmentation. and demonstrates normal augmentation. T/P Trunk is compressible. T/P Trunk is compressible. PTV is compressible. PTV is compressible. RT PerV is compressible. LT PerV is compressible. Procedure This is a venous duplex using B-mode, color flow and spectral Doppler. Exam performed in department. VL/Venous Duplex US - Jaswinder Extrem Interpretation Summary Deep veins of the bilateral lower extremities are patent and compressible segmentally. There is no evidence of bilateral lower extremity deep vein thrombosis. The bilateral great saphenous veins appearpatent and compressible segmentally. Ordering Physician: Rosalio Mena Referring Physician: Navdeep Holcomb M.D. Performed By: Melisa Mace Fredi 08/29/24 1612 Date _ Bean Crawford MD CC: Dr. Rosalio Mena MD; Dr. Navdeep Holcomb MD ~ Date Dictated: 08/24/24 1252 Date Transcribed: 08/29/241618 Head Of Music: Signed [facility] Work Phone: [facility] 08-26-2024 [facility] Telephone (INTMWS) AZALEA MOTT ([id number]) 1950 F Date Time Provider Department 08/26/24 NAVDEEP HOLCOMB INTWS During your visit today, we recorded the following information about you: Keya Chisholm, RN 08/26/2024 10:34 AM Signed Pt called in and reports she was in [facility] ER yesterday. She states she was having trouble catching her breath and heart problems. She said she found out right before her hip surgery that she had Afib, and her HR was running in the 40s. The ER told her to stop taking the Diltiazem and to only take 1/2 of the dose of the Metoprolol she is on. They had her schedule an appointment with Dr Mena, which she has on 09/13/24. She said the ER did chest x-rays and blood work and they told her she has fluid on her lungs, but couldn't find anything else so they sent her home. Pt also states that since her hip surgery she has been having swelling in her feet and they gave her a dose of IV Lasix. She said the last time she saw Dr Mena he increased her Lasix to 40 mg BID, and he told her she would be peeing all the time, but she isn't. Pt is scheduled for an ER f/u with Dr Holcomb on 08/29/24. Please get [facility] report and give to Dr Naidu for Thursday appt. Keya Chisholm RN Allergies As of Date: 08/26/2024 Noted Allergy Reaction NORCO (HYDROCODONE-ACETAMINO PHEN) 10/24/2020 14 - Other: See Comments Comments: Weird dreams. Date Reviewed: 08/17/2024 Reviewed by: Jamal Larios PA-C - Fully Assessed Reason for Visit: Patient Update [1234] Patient Question [5077] Prescriptions as of 08/26/2024 - potassium chloride 20 mEq TbER Take [...] once daily. Problem List As Of Date 08/26/2024 Noted Resolved Dermatophytosis of foot [B35.3] 02/05/2006 03/07/2015 Hereditary and idiopathic peripheral neuropathy* 10/24/2020 Hearing Loss in Left Ear [H91.92] 03/27/2009 Post-menopausal bleeding [N95.0] 11/21/2011 03/28/2016 Thickened endometrium [R93.89] 12/05/2011 03/28/2016 [place] of foot [L84] 08/17/2013 03/28/2016 Primary osteoarthritis [...] postprocedural states [Z98.890] 07/12/2024 Encounter Status:Closed by KEYA CHISHOLM on 08/26/24 Normal [facility] 12 Lead EKGon 08-25-2024 12 Lead EKG [facility] Cardi[facility] Services [address] [place] [address] 12 Lead EKG 08/25/24 1720 MR#: [id number] Acct: [id number] Name: AZALEA MOTT Rep #: [id number] : 1950 74 From: Luis Mercer MD Attending Dr: Status: DEP ER Ordering Dr: Yobani Cm Date: 08/25/24 Location: ED Sex: F C Admitted: Test Reason : palps Blood Pressure : */* mmHG Vent. Rate : 44 BPM Atrial Rate : * BPM P-R Int : * ms QRS Dur : 114 ms QT Int : 504 ms P-R-T Axes : * 10 4 degrees QTcB Int : 430 ms SINUS BRADYWITH SINUS ARREST AND JUNCTIONAL ESCAPE Incomplete right bundle branch block Nonspecific ST abnormality Abnormal ECG Confirmed by Luis Mercer ([id number]), photo editor MICHELLE MACE ([id number]) on 08/30/2024 11:45:02 AM Referred By: Enio Corcoran Confirmed By: Luis Mercer 08/30/24 1145 Date Luis Mercer MD CC: Dr. Enio Corcoran, DO; Dr. Navdeep oHlcomb MD; DEMETRICE King Signed Normal [facility] Absolute lymphocyte countOrd ered By: Yobani Cm on 08-25-2024 Lymphocytes Auto (Unsp spec) [#/Vol] 2.00 10*3/uL 0.83-4.51 [facility] Absolute neutrophil countOrd ered By: Yobani Cm on 08-25-2024 Neutrophils (Bld) [#/Vol] 7.4 10*3/uL 2.0-7.7 [facility] Anion gap in Serum or Plasma Ordered By: Yobani Cm on 08-25-2024 Anion gap [Moles/Vol] 11 mmol/L 5-15 [facility] Automated lymphocyte count a s percentage of total leukocytesOrdered By: Yobani Cm on 08-25-2024 Lymphocytes/100 WBC Auto (Unsp spec) 18.5 % Low 19-41 [facility] BUN/creatinine ratioOrdered By: Yobani Cm on 08-25-2024 Urea nitrogen/Creatinine [Mass ratio] 23.0 mg/mg High 10-20 [facility] Basic Metabolic Profile (BMP )on 08-25-2024 BUN/CRE 23.0 RATIO High - [facility] Comment on above: Performed By: #### L 506.1001, L500.4100 #### [facility] Laboratory [address] [place], [address] Calcium [Mass/Vol] 10.1 mg/dL Normal 7.6-11.0 [facility] Comment on above: Performed By: #### L 506.1001, L500.4100 #### [facility] [address] [place], [address] Chloride [Moles/Vol] 100 mmol/L Normal 98-108 [facility] Comment on above: Performed By: #### L 506.1001, L500.4100 #### [facility] [address] [place], [address] CO2 [Moles/Vol] 27.8 mmol/L Normal 21.0-32.0 [facility] Comment on above: Performed By: #### L 506.1001, L500.4100 #### [facility] [address] [place], [address] Creatinine [Mass/Vol] 1.06 mg/dL Normal 0.70-1.20 [facility] Comment on above: Performed By: #### L 506.1001, L500.4100 #### [facility] [address] [place], [address] ECRCL 56.90 ml/min Normal 50-250 [facility] Comment on above: Performed By: #### L 506.1001, L500.4100 #### [facility] [address] [place], [address] GAP 11 Normal 5-15 [facility] Comment on above: Performed By: #### L 506.1001, L500.4100 #### [facility] [address] [place], [address] GFR/1.73 sq M.predicted among non-blacks MDRD (S/P/Bld) [Vol rate/Area] 55 mL/min/{1.73_m2} Low >60 [facility] Comment on above: Result Comment: mL/m in/1.73m2 CKD-EPI Creatinine Equation (2020) Performed By: #### L 506.1001, L500.4100 #### [facility] [address] [place], [address] Glucose [Mass/Vol] 111 mg/dL High 70-99 [facility] Comment on above: Performed By: #### L 506.1001, L500.4100 #### [facility] [address] [place], [address] Potassium [Moles/Vol] 4.3 mmol/L Normal 3.3-5.1 [facility] Comment on above: Performed By: #### L 506.1001, L500.4100 #### [facility] [address] [place], [address] Sodium [Moles/Vol] 139 mmol/L Normal 133-145 [facility] Comment on above: Performed By: #### L 506.1001, L500.4100 #### [facility] [address] [place], [address] Urea nitrogen [Mass/Vol] 24 mg/dL High 4- [facility] Comment on above: Performed By: #### L 506.1001, L500.4100 #### [facility] [address] [place], [address] Basophil percentageOrdered B y: Yobani Cm on 08-25-2024 Basophils/100 WBC (Bld) 0.5 % 0-1 [facility] CBC W/Diff, Automatedon 08-07 Absolute Lymph 2.00 X10 3/uL Normal 0.83-4.51 [facility] Comment on above: Performed By: #### L 506.1001, L500.4100 #### [facility] [address] [place], [address] Absolute Neut 7.4 X10 3/uL Normal 2.0-7.7 [facility] Comment on above: Performed By: #### L 506.1001, L500.4100 #### [facility] [address] [place], [address] Basophils/100 WBC (Bld) 0.5 % Normal 0-1 [facility] Comment on above: Performed By: #### L 506.1001, L500.4100 #### [facility] [address] [place], [address] Eosinophils/100 WBC (Bld) 2.6 % Normal 0-5 [facility] Comment on above: Performed By: #### L 506.1001, L500.4100 #### [facility] [address] [place], [address] Erythrocyte distribution width (RBC) [Ratio] 13.0 % Normal 11.6-14.6 [facility] Comment on above: Performed By: #### L 506.1001, L500.4100 #### [facility] [address] [place], [address] Hematocrit (Bld) [Volume fraction] 34.1 % Low 37-47 [facility] Comment on above: Performed By: #### L 506.1001, L500.4100 #### [facility] [address] [place], [address] Hemoglobin (Bld) [Mass/Vol] 11.0 g/dL Low 12.0-15.0 [facility] Comment on above: Performed By: #### L 506.1001, L500.4100 #### [facility] [address] [place], [address] IG% 0.500 Normal 0.0-0.9 [facility] Comment on above: Result Comment: IG% - Immature Granulocytes (promyelocytes, myelocytes and metamyelocytes) > 1% indicates that a LEFT SHIFT is Present. Performed By: #### L 506.1001, L500.4100 #### [facility] [address] [place], [address] Lymphocytes/100 WBC (Bld) 18.5 % Low 19-41 [facility] Comment on above: Performed By: #### L 506.1001, L500.4100 #### [facility] [address] [place], [address] MCH (RBC) [Entitic mass] 29.4 pg Normal 27.0-32.0 [facility] Comment on above: Performed By: #### L 506.1001, L500.4100 #### [facility] [address] [place], [address] MCHC (RBC) [Mass/Vol] 32.3 g/dL Normal 32-36 [facility] Comment on above: Performed By: #### L 506.1001, L500.4100 #### [facility] [address] [place], [address] MCV (RBC) [Entitic vol] 91.2 fL Normal 81-99 [facility] Comment on above: Performed By: #### L 506.1001, L500.4100 #### [facility] [address] [place], [address] Monocytes/100 WBC (Bld) 9.5 % Normal 0-10 [facility] Comment on above: Performed By: #### L 506.1001, L500.4100 #### [facility] [address] [place], [address] Neutrophils/100 WBC (Bld) 68.4 % Normal 47-70 [facility] Comment on above: Performed By: #### L 506.1001, L500.4100 #### [facility] [address] [place], [address] Nucleated RBC (Bld) [#/Vol] 0 10*3/uL Normal 0-5 [facility] Comment on above: Performed By: #### L 506.1001, L500.4100 #### [facility] [address] [place], [address] Platelet mean volume (Bld) [Entitic vol] 11.3 fL Normal 6.2-12.0 [facility] Comment on above: Performed By: #### L 506.1001, L500.4100 #### [facility] [address] [place], [address] Platelets (Bld) [#/Vol] 287 10*3/uL Normal 150-450 [facility] Comment on above: Performed By: #### L 506.1001, L500.4100 #### [facility] [address] [place], [address] RBC (Bld) [#/Vol] 3.74 10*6/uL Low 4.2-5.4 [facility] Comment on above: Performed By: #### L 506.1001, L500.4100 #### [facility] [address] [place], [address] RDW SD 43.0 fl Normal 35.1-43.9 [facility] Comment on above: Performed By: #### L 506.1001, L500.4100 #### [facility] [address] [place], [address] WBC (Bld) [#/Vol] 10.8 10*3/uL Normal 4.4-11.0 [facility] Comment on above: Performed By: #### L 506.1001, L500.4100 #### [facility] [address] [place], [address] Carbon dioxide, total [Moles /volume] in Central venous bloodOrdered By: Yobani Cm on 08-25-2024 CO2 [Moles/Vol] 27.8 mmol/L 21.0-32.0 [facility] Chest PA and Lateralon 08-25 Chest PA and Lateral [facility] Imaging Services [address] [place] [address] Chest PA and Lateral MR#: [id number] Acct: [id number] Name: AZALEA MOTT Rep #: [id number] : 1950 F 74 From: Abraham Snyder MD PCP: Dr. Navdeep Holcomb MD Status: [facility] ER Study: Chest PA and Lateral Date of Exam: 08/25/24 Exam# [id number] Ordering Dr: Yobani Cm PROCEDURE: CHEST PA AND LATERAL 08/25/2024 REASON FOR EXAM: DYSPNEA TECHNIQUE: CHEST PA AND LATERAL COMPARISON: 09/23/2020. FINDINGS: The heart is enlarged. Vascular indistinctness of the lung bases suggestive of edema. No acute osseous abnormalities. RAD/Chest PA and Lateral IMPRESSION: Probable mild edema in the setting of cardiomegaly. Reading Location: [id number] CC: Dr. Navdeep Holcomb MD; DEMETRICE King Head Of Music: Signed Normal [facility] Chloride assayOrdered By: Tatiana Cm on 08-25-2024 Chloride [Moles/Vol] 100 mmol/L 98-108 [facility] Emergency Department Summary on 08-25-2024 Emergency Department Summary [facility] Medical Records Department [address] [place] [address] Emergency Department Summary 08/25/24 MR#: [id number] Acct: [id number] Name: AZALEA MOTT Rep #: [id number] : 1950 74 From: Enio Corcoran DO PCP: Dr. Navdeep Holcomb MD Status:DEP ER Location: ED HPI History of Present Illness Chief Complaint: Palpitations Narrative Narrative: 74-year-old female presents with chest pressure, shortness of breath, and a feeling of her heart racing that has been intermittent throughout the day. She was diagnosed with atrial fibrillation on routine workup prior to a right hip replacement surgery on June 30, 2024. She had a normal echo and stress test. After surgery she has been taking metoprolol, diltiazem, Eliquis, furosemide, and potassium. She thinks that she was on furosemide 40 mg once daily prior to the surgery, but since surgery she has had worsening bilateral lower extremity swelling. She saw Dr. Mena in cardiology on 08/11/2024 who increased the furosemide to 40 mg twice daily but the swelling is not improved. She reports having bilateral lower extremity ultrasounds done yesterday negative for DVT. She is also compliant with Eliquis. [facility] Medical History Atrial fibrillation with RVR Chest pain COVID-19 CPAP (continuous positive airway pressure) dependence Essential (primary) hypertension Hearing loss, left Hypertensive urgency Non-smoker Obstructive sleep apnea RBBB Home Medications ???Medication ???Instructions ???Recorded ???Last Taken ???Type cholecalciferol (vitamin D3) 50 2,000 unit PO DAILY supplement 09/23/20 History mcg (2,000 unit) capsule (Vitamin D3) atorvastatin 10 mg tablet 10 mg PO QHS cholesterol 07/06/24 Unknown History multivitamin (Daily Multi-Vitamin 1 tab PO DAILY Supplement 5 Unknown History tablet) acetaminophen 500 mg tablet 1,000 mg PO Q8 PRN pain 08/10/24 U nknown History ascorbic acid (vitamin C) 500 mg 500 mg PO BID 08/10/24 Unknown His tory tablet docusate sodium 100 mg capsule 100 mg PO BID PRN constipation 07/01 Unknown History ferrous sulfate 325 mg (65 mg 650 mg PO QDAY 08/10/24 Unknown Hi story iron) tablet apixaban 5 mg tablet (Eliquis) 5 mg PO BID 30 days #60 tabs 08/12 Unknown Rx diltiazem HCl 300 mg capsule,24 300 mg PO DAILY 30 days #30 caps 0 08/12/24 Unknown Rx hr,extended release (Tiadylt ER) furosemide 40 mg tablet (Lasix) 40 mg PO BID #180 tabs 08/12/24 Un known Rx potassium chloride 20 mEq 20 meq PO QDAY #90 tabs 08/12/24 U nknown Rx tablet,extended release (K-Tab) metoprolol tartrate 100 mg tablet 100 mg PO BID 08/25/24 Unknown Hi story Allergy/AdvReac Type Severity Reaction Status Date / Time No Known Allergies Allergy Verified 08/25/24 17:03 Family History Mother Hypertension Asthma Diabetes COPD (chronic obstructive pulmonary disease) Crohn's disease Father , at 82. Non-Hodgkin lymphoma CHF (congestive heart failure) CVA (cerebral vascular accident) Sister CHF (congestive heart failure) Sister Diabetes Sister Hypertension Sister Fibromyalgia Sister Kidney disease Surgical History History of adenoidectomy History of colonoscopy History of hysteroscopy History of laparoscopic cholecystectomy History of laparoscopy History of left mastoidectomy History of tonsillectomy History of total right hip arthroplasty S/P tubal ligation Social History (Updated 08/25/24 @ 17:09 by Pratibha Cheney) household members: spouse current occupational status: retired Smoking Status: Never smoker alcohol intake: never substance use type: does not use ROS ROS ED ROS Narrative Constitutional: Negative for fever, chills, malaise. CVS: Positive for palpitations, chest pain. Negative for syncope. Respiratory: Positive for shortness of breath. GI: Negative for abdominal pain, nausea, vomiting. EXAM Physical Exam Narrative Exam Narrative: CONST: Patient sitting in no acute distress. EYES: Normal inspection. NECK: Normal inspection. RESP: No respiratory distress, CTAB. CVS: Bradycardic with regular rate and rhythm, no murmur, no gallop. ABD: Soft and nontender, no guarding or rebound, nondistended. SKIN: Color normal, no rash, warm, dry, intact. EXTREMITIES: Normal appearance, symmetric 2+ pitting edema of both legs below the knees. NEURO: Alert and answering questions appropriately. PSYCH: Normal affect. Const Vital Signs: 08/25/24 17:02 08/25/24 17:07 08/25/24 18:02 Temperature 98.2 F Temperature Source Oral Pulse Rate 42 L 37 L Respiratory Rate (more content not included)... Normal [facility] Eosinophil percentageOrdered By: Yobani Cm on 08-25-2024 Eosinophils/100 WBC (Bld) 2.6 % 0-5 [facility] Erythrocyte distribution wid th ratioOrdered By: Yobani Cm on 08-25-2024 Erythrocyte distribution width (RBC) [Ratio] 13.0 % 11.6-14.6 [facility] Erythrocyte distribution wid th standard deviationOrdered By: Yobani Cm on 08-25-2024 Erythrocyte distribution width (RBC) [Ratio] 43.0 fl 35.1-43.9 [facility] Glomerular filtration rate ( GFR) estimation/1.73 sq m using serum, plasma, or whole bOrdered By: Yobani Cm on 08-25-2024 GFR/1.73 sq M.predicted among non-blacks MDRD (S/P/Bld) [Vol rate/Area] 55 mL/min/{1.73_m2} Low >60 [facility] Comment on above: mL/min/1.73m2 CKD-EP I Creatinine Equation (2020) Hematocrit Auto (Bld) [Volum e fraction]Ordered By: Yobani Cm on 08-25-2024 Hematocrit (Bld) [Volume fraction] 34.1 % Low 37-47 [facility] Hemoglobin measurementOrdere d By: Yobani Cm on 08-25-2024 Hemoglobin (Bld) [Mass/Vol] 11.0 g/dL Low 12.0-15.0 [facility] Immature granulocytes/100 WB C Auto (Bld)Ordered By: Yobani Cm on 08-25-2024 Immature granulocytes/100 WBC (Bld) 0.500 % 0.0-0.9 [facility] Comment on above: IG% - Immature Granu locytes (promyelocytes, myelocytes and metamyelocytes) > 1% indicates that a LEFT SHIFT is Present. L499.0042on 08-25-2024 Trop T High Sen 23 ng/L High <=14 [facility] Comment on above: Performed By: #### L 506.1001, L500.4100 #### [facility] [address] [facility] [place], [address] L501.4021on 08-25-2024 Trop T High Sen 25 ng/L High <=14 [facility] Comment on above: Performed By: #### L 501.4021 #### [facility] [address] [facility] [address] [facility] [place], [address] L503.7505on 08-25-2024 Natriuretic peptide B (Bld) [Mass/Vol] 1232 pg/mL High <=900 [facility] Comment on above: Result Comment: Hear t Failure Unlikely: < 300 pg/mL Heart Failure Likely < 50 Years: > 450 pg/mL 50-75 Years: > 900 pg/mL >75 Years: > 1800 pg/mL Performed By: #### L 506.1001, L500.4100 #### [facility] [address] [place], [address] MCV (mean corpuscular volume ) determinationOrdered By: Yobani Cm on 08-25-2024 MCV (RBC) [Entitic vol] 91.2 fL 81-99 [facility] Mean corpuscular hemoglobin (MCH) determinationOrdered By: Yobani Cm on 08-25-2024 MCH (RBC) [Entitic mass] 29.4 pg 27.0-32.0 [facility] Mean corpuscular hemoglobin concentration (MCHC) determinationOrdered By: Yobani Cm on 08-25-2024 MCHC (RBC) [Mass/Vol] 32.3 g/dL 32-36 [facility] Mean platelet volume determi nationOrdered By: Yobani Cm on 08-25-2024 Platelet mean volume (Bld) [Entitic vol] 11.3 fL 6.2-12.0 [facility] Monocyte percentageOrdered B y: Yobani Cm on 08-25-2024 Monocytes/100 WBC (Bld) 9.5 % 0-10 [facility] Natriuretic peptide.B prohor paul N-Terminal [Mass/volume] in Serum or PlasmaOrdered By: Yobani Cm on 08-25-2024 Natriuretic peptide.B prohormone N-Terminal [Mass/Vol] 1232 pg/mL High <900 [facility] Comment on above: Heart Failure Unlike ly: < 300 pg/mLHeart Failure Likely< 50 Years: > 450 pg/mL50-75 Years: > 900 pg/mL>75 Years: > 1800 pg/mL Neutrophil percentageOrdered By: Yobani Cm on 08-25-2024 Neutrophils/100 WBC (Bld) 68.4 % 47-70 [facility] Nucleated red blood cell per centageOrdered By: Yobani Cm on 08-25-2024 Nucleated RBC/100 WBC (Bld) [Ratio] 0 % 0-5 [facility] Platelet countOrdered By: Tatiana Cm on 08-25-2024 Platelets (Bld) [#/Vol] 287 10*3/uL 150-450 [facility] Potassium measurement (mass/ volume)Ordered By: Yobani Cm on 08-25-2024 Potassium (Unsp spec) [Mass/Vol] 4.3 mmol/L 3.3-5.1 [facility] RBC Auto (Bld) [#/Vol]Ordere d By: Yobani Cm on 08-25-2024 RBC (Bld) [#/Vol] 3.74 10*6/uL Low 4.2-5.4 [facility] Serum creatinine measurement (mass/volume)Ordered By: Yobani Cm on 08-25-2024 Creatinine [Mass/Vol] 1.06 mg/dL 0.70-1.20 [facility] Serum glucose measurement (m ass/volume)Ordered By: Yobani Cm on 08-25-2024 Glucose [Mass/Vol] 111 mg/dL High 70-99 [facility] Serum or plasma calcium cathi urement (mass/volume)Ordered By: Yobani Cm on 08-25-2024 Calcium [Mass/Vol] 10.1 mg/dL 7.6-11.0 [facility] Serum or plasma urea nitroge n measurement (mass/volume)Ordered By: Yobani Cm on 08-25-2024 Urea nitrogen [Mass/Vol] 24 mg/dL High 4-19 [facility] Sodium levelOrdered By: Yobani Cm on 08-25-2024 Sodium [Moles/Vol] 139 mmol/L 133-145 [facility] Troponin T.cardiac [Mass/vol ume] in Serum or Plasma by High sensitivity methodOrdered By: Enio Corcoran on 08-25-2024 Troponin T.cardiac High sensitivity method [Mass/Vol] 23 ng/L High <14 [facility] Troponin T.cardiac [Mass/vol ume] in Serum or Plasma by High sensitivity methodOrdered By: Yobani Cm on 08-25-2024 Troponin T.cardiac High sensitivity method [Mass/Vol] 25 ng/L High <14 [facility] White blood cell (WBC) count Ordered By: Yobani Cm on 08-25-2024 WBC (Bld) [#/Vol] 10.8 10*3/uL 4.4-11.0 [facility] Venous Duplex US - Jaswinder Extre mon 08-24-2024 Venous Duplex US - Jaswinder Extrem [facility] [address] [facility] [place] [address] Venous Duplex US - Jaswinder Extrem 08/24/24 1252 MR#: [id number] Acct: [id number] Name: AZALEA MOTT Rep #: [id number] : 1950 74 From: Bean Crawford MD Attending Dr: Dr. Rosalio Mena MD Status: REG CLI Ordering Dr: Rosalio Mena MD Date: 08/24/24 Location: [facility] Sex: F C Admitted: Reason For Study Reason For Study: Swelling RIGHT LEFT GSV is normal. GSV is normal. CFV is compressible, spontaneous, phasic, competent CFV is compressible, spontaneous, phasic, competent, and demonstrates normal augmentation. and demonstrates normal augmentation. FV is compressible, spontaneous, phasic, competent FV is compressible, spontaneous, phasic, competent and demonstrates normal augmentation. and demonstrates normal augmentation. POP V is compressible, spontaneous, phasic, competent POP V is compressible, spontaneous, phasic, competent and demonstrates normal augmentation. and demonstrates normal augmentation. T/P Trunk is compressible. T/P Trunk is compressible. PTV is compressible. PTV is compressible. RT PerV is compressible. LT PerV is compressible. Procedure This is a venous duplex using B-mode, color flow and spectral Doppler. Exam performed in department. VL/Venous Duplex US - Jaswinder Extrem Interpretation Summary Deep veins of the bilateral lower extremities are patent and compressible segmentally. There is no evidence of bilateral lower extremity deep vein thrombosis. The bilateral great saphenous veins appear patent and compressible segmentally. Ordering Physician: Rosalio Mena Referring Physician: Navdeep Holcomb M.D. Performed By: Melisa Mace, RYANT 08/29/24 6767 Date Bean Crawford MD CC: Dr. Rosalio Mena MD; Dr. Navdeep Holcomb MD Date Dictated: 08/24/24 1252 Date Transcribed: 08/29/24 1619 Head Of Music: Signed Normal [facility] Anion gap in Serum or Plasma Ordered By: Rosalio Mena on 08-17-2024 Anion gap [Moles/Vol] 11 mmol/L - [facility] BUN/creatinine ratioOrdered By: Rosalio Mena on 08-17-2024 Urea nitrogen/Creatinine [Mass ratio] 13.1 mg/mg - [facility] Basic Metabolic Profile (BMP )on 08-17-2024 BUN/CRE 13.1 RATIO Normal - [facility] Comment on above: Performed By: #### L 506.1001, L500.4100 #### [facility] [address] [place], [address] Calcium [Mass/Vol] 9.7 mg/dL Normal 7.6-11.0 [facility] Comment on above: Performed By: #### L 506.1001, L500.4100 #### [facility] [address] [place], [address] Chloride [Moles/Vol] 102 mmol/L Normal 98-108 [facility] Comment on above: Performed By: #### L 506.1001, L500.4100 #### [facility] [address] [place], [address] CO2 [Moles/Vol] 27.3 mmol/L Normal 21.0-32.0 [facility] Comment on above: Performed By: #### L 506.1001, L500.4100 #### [facility] [address] [place], [address] Creatinine [Mass/Vol] 0.96 mg/dL Normal 0.70-1.20 [facility] Comment on above: Performed By: #### L 506.1001, L500.4100 #### [facility] [address] [place], [address] GAP 11 Normal -15 [facility] Comment on above: Performed By: #### L 506.1001, L500.4100 #### [facility] [address] [place], [address] GFR/1.73 sq M.predicted among non-blacks MDRD (S/P/Bld) [Vol rate/Area] 62 mL/min/{1.73_m2} Normal >60 [facility] Comment on above: Result Comment: mL/m in/1.73m2 CKD-EPI Creatinine Equation (2020) Performed By: #### L 506.1001, L500.4100 #### [facility] [address] [place], [address] Glucose [Mass/Vol] 152 mg/dL High 70-99 [facility] Comment on above: Performed By: #### L 506.1001, L500.4100 #### [facility] [address] [place], [address] Potassium [Moles/Vol] 3.6 mmol/L Normal 3.3-5.1 [facility] Comment on above: Performed By: #### L 506.1001, L500.4100 #### [facility] [address] [place], [address] Sodium [Moles/Vol] 141 mmol/L Normal 133-145 [facility] Comment on above: Performed By: #### L 506.1001, L500.4100 #### [facility] [address] [place], [address] Urea nitrogen [Mass/Vol] 13 mg/dL Normal 4-19 [facility] Comment on above: Performed By: #### L 506.1001, L500.4100 #### [facility] [address] [place], [address] CNOVon 08-17-2024 CNOV Office Visit (ORMDNA ) AZALEA MOTT ([id number]) 1950 F Date Time Provider Department 08/17/24 11:30 AM JAMAL LARIOS During your visit today, we recorded the following information about you: Jamal Larios PA-C 08/17/2024 12:23 PM Signed Post-op Office [...] SHALONDA wrapping for assistance in swelling Jamal Larios PA-C Orthopaedic Surgery Allergies As of Date: 08/17/2024 Noted Allergy Reaction NORCO (HYDROCODONE-ACETAMINO PHEN) 10/24/2020 14 - Other: See Comments Comments: Weisade dreams. 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 Normal [facility] Carbon dioxide, total [Moles /volume] in Central venous bloodOrdered By: Rosalio Mena on 08-17-2024 CO2 [Moles/Vol] 27.3 mmol/L 21.0-32.0 [facility] Chloride assayOrdered By: Dar Mena on 08-17-2024 Chloride [Moles/Vol] 102 mmol/L 98-108 [facility] Glomerular filtration rate ( GFR) estimation/1.73 sq m using serum, plasma, or whole bOrdered By: Rosalio Mena on 08-17-2024 GFR/1.73 sq M.predicted among non-blacks MDRD (S/P/Bld) [Vol rate/Area] 62 mL/min/{1.73_m2} >60 [facility] Comment on above: mL/min/1.73m2 CKD-EP I Creatinine Equation (2020) Potassium measurement (mass/ volume)Ordered By: Rosalio Mena on 08-17-2024 Potassium (Unsp spec) [Mass/Vol] 3.6 mmol/L 3.3-5.1 [facility] Serum creatinine measurement (mass/volume)Ordered By: Rosalio Mena on 08-17-2024 Creatinine [Mass/Vol] 0.96 mg/dL 0.70-1.20 [facility] Serum glucose measurement (m ass/volume)Ordered By: Rosalio Mena on 08-17-2024 Glucose [Mass/Vol] 152 mg/dL High 70-99 [facility] Serum or plasma calcium cathi urement (mass/volume)Ordered By: Rosalio Rajesh on 08-17-2024 Calcium [Mass/Vol] 9.7 mg/dL 7.6-11.0 [facility] Serum or plasma urea nitroge n measurement (mass/volume)Ordered By: Rosalio Rajesh on 08-17-2024 Urea nitrogen [Mass/Vol] 13 mg/dL 4-19 [facility] Sodium levelOrdered By: Francois savannah Mena on 08-17-2024 Sodium [Moles/Vol] 141 mmol/L 133-145 [facility] TSH DL <= 0.005 mIU/L QnOrde red By: Rosalio Mena on 08-17-2024 TSH Qn 2.960 uIU/mL 0.300-4.200 [facility] Thyroid Stim Hormone (TSH)on 08-17-2024 TSH 2.960 uIU/mL Normal 0.300-4.200 [facility] Comment on above: Performed By: #### L 506.1001, L500.4100 #### [facility] [address] [facility] [place], [address] 102on 08-12-2024 102 HNO ID: [id number] Author: FRANCISCO JAVIER GALLARDO HDA Service: ? Author Type: ? Type: 102 Filed: 08/12/2024 11:33 Note Text: Code Status: Full Code Normal [facility] Cardiology Visit Reporton Cardiology Visit Report [facility] [address] [place] [address] OFFICE VISIT Date of Service: 08/11/24 MR#: [id number] Acct: [id number] Name: AZALEA MOTT Rep #: [id number] : 1950 Provider: Dr. 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 Normal [facility] 08-09-2024 [facility] Telephone (HCSIND) AZALEA MOTT ([id number]) 1950 F Date Time Provider Department 08/09/24 PRADIP HILLMAN HCSIND During your visit today, we recorded the following information about you: Pradip Hillman, PT 08/09/2024 4:[address] Zhang Tristan is reporting increased SOB today with activity. Her HR is running in the low 50's and does not elevate with activity . 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 If worse, appointment or depending on severity, ER. Cardiology appointment is tomorrow. Heart rate is reasonable. Neeta Foster LPN 08/10/2024 9:04 AM Signed Spoke to Azalea, s/s are unchanged, not worse, given below recommendation, she is comfortable waiting until tomorrow. Neeta Foster LPN Allergies As of Date: 08/09/2024 Noted Allergy Reaction NORCO (HYDROCODONE-ACETAMINO PHEN) 10/24/2020 14 - Other: See Comments Comments: Weird dreams. Date Reviewed: 08/09/2024 Reviewed by: Pradip Hillman, PT - Fully Assessed Reason for Visit: [...] 11/21/2011 03/28/2016 Thickened endometrium [R93.89] 12/05/2011 03/28/2016 Laurel of foot [L84] 08/17/2013 03/28/2016 Primary osteoarthritis [...] states [Z98.890] 07/12/2024 Encounter Status:Closed by PRADIP HILLMAN on 08/09/24 Normal [facility] Basic metabolic 2000 panelon 08-08-2024 Anion gap [Moles/Vol] 11 mmol/L Normal 8-15 [facility] Comment on above: Order Comment: Speci men Type: BLOOD SPECIMENOrdering Facility: [facility] Address: [address] [place] [address] Performed By: #### 2 4321-2 ####[facility] LABCLIA [id number] [place] [address] [place] Calcium [Mass/Vol] 10.2 mg/dL Normal 8.5-10.2 [facility] Comment on above: Order Comment: Speci men Type: BLOOD SPECIMENOrdering Facility: [facility] Address: [address] [place] [address] Performed By: #### 2 4321-2 ####[facility] LABCLIA [id number] [place] [address] [place] Chloride [Moles/Vol] 99 mmol/L Normal 98-107 [facility] Comment on above: Order Comment: Speci men Type: BLOOD SPECIMENOrdering Facility: [facility] Address: [address] [place] [address] Performed By: #### 2 4321-2 ####[facility] LABCLIA [id number] [place] [address] [place] CO2 [Moles/Vol] 28 mmol/L Normal 22-30 [facility] Comment on above: Order Comment: Speci men Type: BLOOD SPECIMENOrdering Facility: [facility] Address: [address] [place] [address] Performed By: #### 2 4321-2 ####[facility] LABIA [id number] [place] [address] [place] Creatinine [Mass/Vol] 1.15 mg/dL High 0.58-0.96 [facility] Comment on above: Order Comment: Speci men Type: BLOOD SPECIMENOrdering Facility: [facility] Address: [address] [place] [address] Performed By: #### 2 4321-2 ####[facility] LABIA [id number] [address] [facility] Creatinine and Glomerular filtration rate.predicted panel (S/P/Bld) 50 mL/min/1.73m??? Low >=60 [facility] Comment on above: Order Comment: Speci men Type: BLOOD SPECIMENOrdering Facility: [facility] Address: [address] [place] [address] Result Comment: Jessica mated Glomerular Filtration Rate [...] actual GFR. Performed By: #### 2 4321-2 ####[facility] [id number] [place] [address] [place] Glucose [Mass/Vol] 118 mg/dL High 74-99 [facility] Comment on above: Order Comment: Speci men Type: BLOOD SPECIMENOrdering Facility: [facility] Address: [address] [place] [address] Result Comment: The [place] Diabetes Association (ADA) provides guidance for cutoff [...] Standards of Medical Care in Diabetes 2016, [place] Diabetes Association. Diabetes Care. 2016.39(Suppl 1). Performed By: #### 2 4321-2 ####[facility] [id number] [place] [address] [place] Potassium [Moles/Vol] 4.1 mmol/L Normal 3.7-5.1 [facility] Comment on above: Order Comment: Speci men Type: BLOOD SPECIMENOrdering Facility: [facility] Address: [address] [place] [address] Performed By: #### 2 4321-2 ####[facility] [id number] [place] [id number] [place] Sodium [Moles/Vol] 138 mmol/L Normal 136-144 [facility] Comment on above: Order Comment: Speci men Type: BLOOD SPECIMENOrdering Facility: [facility] Address: [address] [place] [address] Performed By: #### 2 4321-2 ####[facility] LABCLIA [id number] [address] [address] [place] Urea nitrogen [Mass/Vol] 22 mg/dL High 7-21 [facility] Comment on above: Order Comment: Speci men Type: BLOOD SPECIMENOrdering Facility: [facility] Address: [address] [place] [address] Performed By: #### 2 4321-2 ####[facility] LABCLIA [id number] [place] [id number] [place] Basic Metabolic Profile (BMP )on 08-04-2024 BUN Normal 4-19 [facility] Comment on above: Result Comment: Canc elled via OM: Order cancelled - Patient discharged Performed By: #### L 506.1001, L500.4100 #### [facility] [address] [place], [address] BUN/CRE Normal 10-20 [facility] Comment on above: Result Comment: Canc elled via OM: Order cancelled - Patient discharged Performed By: #### L 506.1001, L500.4100 #### [facility] [address] [place], [address] Calcium Normal 7.6-11.0 [facility] Comment on above: Result Comment: Canc elled via OM: Order cancelled - Patient discharged Performed By: #### L 506.1001, L500.4100 #### [facility] [address] [place], [address] CL Normal 98-108 [facility] Comment on above: Result Comment: Canc elled via OM: Order cancelled - Patient discharged Performed By: #### L 506.1001, L500.4100 #### [facility] [address] [place], [address] CO2 Normal 21.0-32.0 [facility] Comment on above: Result Comment: Canc elled via OM: Order cancelled - Patient discharged Performed By: #### L 506.1001, L500.4100 #### [facility] [address] [place], [address] CREAT,SERUM Normal 0.70-1.20 [facility] Comment on above: Result Comment: Canc elled via OM: Order cancelled - Patient discharged Performed By: #### L 506.1001, L500.4100 #### [facility] [address] [place], [address] eGFR Normal >60 [facility] Comment on above: Result Comment: Canc elled via OM: Order cancelled - Patient discharged Performed By: #### L 506.1001, L500.4100 #### [facility] [address] [place], [address] GAP Normal 5-15 [facility] Comment on above: Result Comment: Canc elled via OM: Order cancelled - Patient discharged Performed By: #### L 506.1001, L500.4100 #### [facility] [address] [place], [address] GLU Normal 70-99 [facility] Comment on above: Result Comment: Canc elled via OM: Order cancelled - Patient discharged Performed By: #### L 506.1001, L500.4100 #### [facility] [address] [place], [address] Potassium Normal 3.3-5.1 [facility] Comment on above: Result Comment: Canc elled via OM: Order cancelled - Patient discharged Performed By: #### L 506.1001, L500.4100 #### [facility] [address] [place], [address] Basic Metabolic Profile (BMP) Normal 133-145 [facility] Comment on above: Result Comment: Canc elled via OM: Order cancelled - Patient discharged Performed By: #### L 506.1001, L500.4100 #### [facility] [address] [place], [address] CBC W/Diff, Automatedon 05-2 Absolute Neut Normal 2.0-7.7 [facility] Comment on above: Result Comment: Canc elled via OM: Order cancelled - Patient discharged Performed By: #### L 506.1001, L500.4100 #### [facility] [address] [place], [address] HCT Normal 37-47 [facility] Comment on above: Result Comment: Canc elled via OM: Order cancelled - Patient discharged Performed By: #### L 506.1001, L500.4100 #### [facility] [address] [place], [address] HGB Normal 12.0-15.0 [facility] Comment on above: Result Comment: Canc elled via OM: Order cancelled - Patient discharged Performed By: #### L 506.1001, L500.4100 #### [facility] [address] [place], [address] MCH Normal 27.0-32.0 [facility] Comment on above: Result Comment: Canc elled via OM: Order cancelled - Patient discharged Performed By: #### L 506.1001, L500.4100 #### [facility] [address] [place], [address] MCHC Normal 32-36 [facility] Comment on above: Result Comment: Canc elled via OM: Order cancelled - Patient discharged Performed By: #### L 506.1001, L500.4100 #### [facility] [address] [place], [address] MCV Normal 81-99 [facility] Comment on above: Result Comment: Canc elled via OM: Order cancelled - Patient discharged Performed By: #### L 506.1001, L500.4100 #### [facility] [address] [place], [address] NEUT% Normal 47-70 [facility] Comment on above: Result Comment: Canc elled via OM: Order cancelled - Patient discharged Performed By: #### L 506.1001, L500.4100 #### [facility] [address] [place], [address] PLT Normal 150-450 [facility] Comment on above: Result Comment: Canc elled via OM: Order cancelled - Patient discharged Performed By: #### L 506.1001, L500.4100 #### [facility] [address] [place], [address] RBC Normal 4.2-5.4 [facility] Comment on above: Result Comment: Canc elled via OM: Order cancelled - Patient discharged Performed By: #### L 506.1001, L500.4100 #### [facility] [address] [place], [address] RDW CV Normal 11.6-14.6 [facility] Comment on above: Result Comment: Canc elled via OM: Order cancelled - Patient discharged Performed By: #### L 506.1001, L500.4100 #### [facility] [address] [place], [address] RDW SD Normal 35.1-43.9 [facility] Comment on above: Result Comment: Canc elled via OM: Order cancelled - Patient discharged Performed By: #### L 506.1001, L500.4100 #### [facility] [address] [place], [address] WBC Normal 4.4-11.0 [facility] Comment on above: Result Comment: Canc elled via OM: Order cancelled - Patient discharged Performed By: #### L 506.1001, L500.4100 #### [facility] [address] [place], [address] [facility] MOTTAZALEA ([id number]) 1950 F Date Time Provider Department 08/02/24 NAVDEEP HOLCOMB INTMWS During your visit today, we recorded [...] much as possible. Pharmacy is [facility] JACOB Brasher Victor H, MD 08/03/2024 12:09 AM Signed The following approved medication requests have been transmitted electronically. Requested Prescriptions Signed Prescriptions Disp Refills furosemide (LASIX) 40 mg tablet 14 tablet 0 Sig: Take 1 tablet by mouth once daily for 14 days. Authorizing Provider: NAVDEEP HOLCOMB Discontinue hydrochlorothiazide. Non fasting BMP next week. [...] 0 BASIC METABOLIC PANEL [SQBMP] Order #: [id number] FUTURE Prescriptions as of 08/03/2024 - furosemide [...] 11/21/2011 03/28/2016 Thickened endometrium [R93.89] 12/05/2011 03/28/2016 Laurel of foot [L84] 08/17/2013 03/28/2016 Primary osteoarthritis [...] Start End (more content not included)... Normal [facility] Telephone (HCSIND) AZALEA MOTT ([id number]) 1950 F Date Time Provider Department 08/02/24 LESLIE DAVISON During your visit today, we recorded the [...] 11/21/2011 03/28/2016 Thickened endometrium [R93.89] 12/05/2011 03/28/2016 Laurel of foot [L84] 08/17/2013 03/28/2016 Primary osteoarthritis [...] Encounter Status:Closed by LESLIE DAVISON on 08/02/24 Normal [facility] Basic Metabolic Profile (BMP )on 07-28-2024 BUN Normal 4-19 [facility] Comment on above: Result Comment: Canc elled via OM: Order cancelled - Patient discharged Performed By: #### L 506.1001, L500.4100 #### [facility] [address] [place], [address] BUN/CRE Normal 10-20 [facility] Comment on above: Result Comment: Canc elled via OM: Order cancelled - Patient discharged Performed By: #### L 506.1001, L500.4100 #### [facility] [address] [place], [address] Calcium Normal 7.6-11.0 [facility] Comment on above: Result Comment: Canc elled via OM: Order cancelled - Patient discharged Performed By: #### L 506.1001, L500.4100 #### [facility] [address] [place], [address] CL Normal 98-108 [facility] Comment on above: Result Comment: Canc elled via OM: Order cancelled - Patient discharged Performed By: #### L 506.1001, L500.4100 #### [facility] [address] [place], [address] CO2 Normal 21.0-32.0 [facility] Comment on above: Result Comment: Canc elled via OM: Order cancelled - Patient discharged Performed By: #### L 506.1001, L500.4100 #### [facility] [address] [place], [address] CREAT,SERUM Normal 0.70-1.20 [facility] Comment on above: Result Comment: Canc elled via OM: Order cancelled - Patient discharged Performed By: #### L 506.1001, L500.4100 #### [facility] [address] [place], [address] eGFR Normal >60 [facility] Comment on above: Result Comment: Canc elled via OM: Order cancelled - Patient discharged Performed By: #### L 506.1001, L500.4100 #### [facility] [address] [place], [address] GAP Normal 5-15 [facility] Comment on above: Result Comment: Canc elled via OM: Order cancelled - Patient discharged Performed By: #### L 506.1001, L500.4100 #### [facility] [address] [place], [address] GLU Normal 70-99 [facility] Comment on above: Result Comment: Canc elled via OM: Order cancelled - Patient discharged Performed By: #### L 506.1001, L500.4100 #### [facility] [address] [place], [address] Potassium Normal 3.3-5.1 [facility] Comment on above: Result Comment: Canc elled via OM: Order cancelled - Patient discharged Performed By: #### L 506.1001, L500.4100 #### [facility] [address] [place], [address] Basic Metabolic Profile (BMP) Normal 133-145 [facility] Comment on above: Result Comment: Canc elled via OM: Order cancelled - Patient discharged Performed By: #### L 506.1001, L500.4100 #### [facility] [address] [place], [address] CBC W/Diff, Automatedon 05-2 Absolute Neut Normal 2.0-7.7 [facility] Comment on above: Result Comment: Canc elled via OM: Order cancelled - Patient discharged Performed By: #### L 506.1001, L500.4100 #### [facility] [address] [place], [address] HCT Normal 37-47 [facility] Comment on above: Result Comment: Canc elled via OM: Order cancelled - Patient discharged Performed By: #### L 506.1001, L500.4100 #### [facility] [address] [place], [address] HGB Normal 12.0-15.0 [facility] Comment on above: Result Comment: Canc elled via OM: Order cancelled - Patient discharged Performed By: #### L 506.1001, L500.4100 #### [facility] [address] [place], [address] MCH Normal 27.0-32.0 [facility] Comment on above: Result Comment: Canc elled via OM: Order cancelled - Patient discharged Performed By: #### L 506.1001, L500.4100 #### [facility] [address] [place], [address] MCHC Normal 32-36 [facility] Comment on above: Result Comment: Canc elled via OM: Order cancelled - Patient discharged Performed By: #### L 506.1001, L500.4100 #### [facility] [address] [place], [address] MCV Normal 81-99 [facility] Comment on above: Result Comment: Canc elled via OM: Order cancelled - Patient discharged Performed By: #### L 506.1001, L500.4100 #### [facility] [address] [place], [address] NEUT% Normal 47-70 [facility] Comment on above: Result Comment: Canc elled via OM: Order cancelled - Patient discharged Performed By: #### L 506.1001, L500.4100 #### [facility] [address] [place], [address] PLT Normal 150-450 [facility] Comment on above: Result Comment: Canc elled via OM: Order cancelled - Patient discharged Performed By: #### L 506.1001, L500.4100 #### [facility] [address] [place], [address] RBC Normal 4.2-5.4 [facility] Comment on above: Result Comment: Canc elled via OM: Order cancelled - Patient discharged Performed By: #### L 506.1001, L500.4100 #### [facility] [address] [place], [address] RDW CV Normal 11.6-14.6 [facility] Comment on above: Result Comment: Canc elled via OM: Order cancelled - Patient discharged Performed By: #### L 506.1001, L500.4100 #### [facility] [address] [place], [address] RDW SD Normal 35.1-43.9 [facility] Comment on above: Result Comment: Canc elled via OM: Order cancelled - Patient discharged Performed By: #### L 506.1001, L500.4100 #### [facility] [address] [place], [address] WBC Normal 4.4-11.0 [facility] Comment on above: Result Comment: Canc elled via OM: Order cancelled - Patient discharged Performed By: #### L 506.1001, L500.4100 #### [facility] [address] [place], [address] CNOVon 07-27-2024 CNOV Office Visit (INTMWS ) AZALEA MOTT ([id number]) 1950 F Date Time Provider Department 07/27/24 11:20 AM NAVDEEP HOLCOMB INTGILDARDO During your visit today, we recorded the following information about you: Pulse Respiration Blood pressure Weight 72/minute 18/minute 118/72 99.7 kg Jd Neeta JOSE Barrios 07/27/2024 1:25 PM Signed Patient Outreach 07/25/2024 Field Reimbursement Manager Management Wanda Costa, air technician Transition Of Care Reason for Visit Progress Notes Wanda Costa RN (Registered Nurse) Internal Medicine Transition Care Management (TCM) Initial Outreach PCP Update / Actionable Items HRTIC TCM Home Visit Referral Source of Stratification: TCM [facility] Admission Status: Discharged Readmission Risk Score: N/A Patient's zip code: [address] Is zip code within program service area: No Patient Source: [id number]-Ydonbxw (OON) Discharge Outreach Summary: Spoke with patient. [...] changes in current status. Patient discharged from [facility] Discharge date: 07-22-24 Admitted for: Total right hip replacement Readmission Risk: N/A Value-Based Contract: ACO Contact: Contact made with patient: Yes Hi, my name is Wanda Costa RN and I am calling from the [facility] on behalf of your Primary Care Provider, Navdeep Holcomb MD. I understand you were recently in [...] you? Yes Name of Home Care Agency: [facility] Phone number, if available: [phone] Start of Home Care services date: 07-23-24 [...] I will send your request to a hair assistant who will contact and assist you with [...] 2024 Gabbie (more content not included)... Normal [facility] CNPNon 07-23-2024 CNPN Telephone (HCSIND) AZALEA MOTT ([id number]) 1950 F Date Time Provider Department 07/23/24 SANJEEV GALDAMEZ HCSIND During your visit today, we recorded the following information about you: Sanjeev Galdamez, PT 07/23/2024 1:04 PM Signed The following [...] to patient for any medication clarification Sanjeev Galdamez PT, DPT Navdeep Holcomb MD 07/26/2024 1:38 PM Signed Noted. We'll [...] 11/21/2011 03/28/2016 Thickened endometrium [R93.89] 12/05/2011 03/28/2016 Laurel of foot [L84] 08/17/2013 03/28/2016 Primary osteoarthritis [...] [Z98.890] 07/12 (more content not included)... Normal [facility] Absolute lymphocyte countOrd ered By: New Bear on 07-21-2024 Lymphocytes Auto (Unsp spec) [#/Vol] 1.76 10*3/uL 0.83-4.51 [facility] Absolute neutrophil countOrd ered By: New Bear on 07-21-2024 Neutrophils (Bld) [#/Vol] 4.9 10*3/uL 2.0-7.7 [facility] Anion gap in Serum or Plasma Ordered By: New Bear on 07-21-2024 Anion gap [Moles/Vol] 12 mmol/L 07-21 [facility] Automated lymphocyte count a s percentage of total leukocytesOrdered By: New Bear on 07-21-2024 Lymphocytes/100 WBC Auto (Unsp spec) 22.9 % [facility] BUN/creatinine ratioOrdered By: New Bear on 07-21-2024 Urea nitrogen/Creatinine [Mass ratio] 16.6 mg/mg 12-26 [facility] Basic Metabolic Profile (BMP )on 07-21-2024 BUN/CRE 16.6 RATIO Normal 12-26 [facility] Comment on above: Performed By: #### L 506.1001, L500.4100 #### [facility] [address] [place], [address] Calcium [Mass/Vol] 9.8 mg/dL Normal 7.6-11.0 [facility] Comment on above: Performed By: #### L 506.1001, L500.4100 #### [facility] [address] [place], [address] Chloride [Moles/Vol] 98 mmol/L Normal 98-108 [facility] Comment on above: Performed By: #### L 506.1001, L500.4100 #### [facility] [address] [place], [address] CO2 [Moles/Vol] 26.8 mmol/L Normal 21.0-32.0 [facility] Comment on above: Performed By: #### L 506.1001, L500.4100 #### [facility] [address] [place], [address] Creatinine [Mass/Vol] 0.99 mg/dL Normal 0.70-1.20 [facility] Comment on above: Performed By: #### L 506.1001, L500.4100 #### [facility] [address] [place], [address] ECRCL 60.99 ml/min Normal 50-250 [facility] Comment on above: Performed By: #### L 506.1001, L500.4100 #### [facility] [address] [place], [address] GAP 12 Normal 5-15 [facility] Comment on above: Performed By: #### L 506.1001, L500.4100 #### [facility] [address] [place], [address] GFR/1.73 sq M.predicted among non-blacks MDRD (S/P/Bld) [Vol rate/Area] 60 mL/min/{1.73_m2} Normal >60 [facility] Comment on above: Result Comment: mL/m in/1.73m2 CKD-EPI Creatinine Equation (2020) Performed By: #### L 506.1001, L500.4100 #### [facility] [address] [place], [address] Glucose [Mass/Vol] 107 mg/dL High 70-99 [facility] Comment on above: Performed By: #### L 506.1001, L500.4100 #### [facility] [address] [place], [address] Potassium [Moles/Vol] 3.8 mmol/L Normal 3.3-5.1 [facility] Comment on above: Performed By: #### L 506.1001, L500.4100 #### [facility] [address] [place], [address] Sodium [Moles/Vol] 136 mmol/L Normal 133-145 [facility] Comment on above: Performed By: #### L 506.1001, L500.4100 #### [facility] [address] [place], [address] Urea nitrogen [Mass/Vol] 17 mg/dL Normal 4-19 [facility] Comment on above: Performed By: #### L 506.1001, L500.4100 #### [facility] [address] [place], [address] Basophil percentageOrdered B y: New Bear on 07-21-2024 Basophils/100 WBC (Bld) 0.9 % 0-1 [facility] CBC W/Diff, Automatedon 07-07 Absolute Lymph 1.76 X10 3/uL Normal 0.83-4.51 [facility] Comment on above: Performed By: #### L 506.1001, L500.4100 #### [facility] [address] [place], [address] Absolute Neut 4.9 X10 3/uL Normal 2.0-7.7 [facility] Comment on above: Performed By: #### L 506.1001, L500.4100 #### [facility] [address] [place], [address] Basophils/100 WBC (Bld) 0.9 % Normal 0-1 [facility] Comment on above: Performed By: #### L 506.1001, L500.4100 #### [facility] [address] [place], [address] Eosinophils/100 WBC (Bld) 3.6 % Normal 0-5 [facility] Comment on above: Performed By: #### L 506.1001, L500.4100 #### [facility] [address] [place], [address] Erythrocyte distribution width (RBC) [Ratio] 13.2 % Normal 11.6-14.6 [facility] Comment on above: Performed By: #### L 506.1001, L500.4100 #### [facility] [address] [place], [address] Hematocrit (Bld) [Volume fraction] 31.3 % Low 37-47 [facility] Comment on above: Performed By: #### L 506.1001, L500.4100 #### [facility] [address] [place], [address] Hemoglobin (Bld) [Mass/Vol] 10.2 g/dL Low 12.0-15.0 [facility] Comment on above: Performed By: #### L 506.1001, L500.4100 #### [facility] [address] [place], [address] IG% 0.400 Normal 0.0-0.9 [facility] Comment on above: Result Comment: IG% - Immature Granulocytes (promyelocytes, myelocytes and metamyelocytes) > 1% indicates that a LEFT SHIFT is Present. Performed By: #### L 506.1001, L500.4100 #### [facility] [address] [place], [address] Lymphocytes/100 WBC (Bld) 22.9 % Normal 19-41 [facility] Comment on above: Performed By: #### L 506.1001, L500.4100 #### [facility] [address] [place], [address] MCH (RBC) [Entitic mass] 29.7 pg Normal 27.0-32.0 [facility] Comment on above: Performed By: #### L 506.1001, L500.4100 #### [facility] [address] [place], [address] MCHC (RBC) [Mass/Vol] 32.6 g/dL Normal 32-36 [facility] Comment on above: Performed By: #### L 506.1001, L500.4100 #### [facility] [address] [place], [address] MCV (RBC) [Entitic vol] 91.0 fL Normal 81-99 [facility] Comment on above: Performed By: #### L 506.1001, L500.4100 #### [facility] [address] [place], [address] Monocytes/100 WBC (Bld) 8.1 % Normal 0-10 [facility] Comment on above: Performed By: #### L 506.1001, L500.4100 #### [facility] [address] [place], [address] Neutrophils/100 WBC (Bld) 64.1 % Normal 47-70 [facility] Comment on above: Performed By: #### L 506.1001, L500.4100 #### [facility] [address] [place], [address] Nucleated RBC (Bld) [#/Vol] 0 10*3/uL Normal 0-5 [facility] Comment on above: Performed By: #### L 506.1001, L500.4100 #### [facility] [address] [place], [address] Platelet mean volume (Bld) [Entitic vol] 10.1 fL Normal 6.2-12.0 [facility] Comment on above: Performed By: #### L 506.1001, L500.4100 #### [facility] [address] [place], [address] Platelets (Bld) [#/Vol] 383 10*3/uL Normal 150-450 [facility] Comment on above: Performed By: #### L 506.1001, L500.4100 #### [facility] [address] [place], [address] RBC (Bld) [#/Vol] 3.44 10*6/uL Low 4.2-5.4 [facility] Comment on above: Performed By: #### L 506.1001, L500.4100 #### [facility] [address] [place], [address] RDW SD 43.5 fl Normal 35.1-43.9 [facility] Comment on above: Performed By: #### L 506.1001, L500.4100 #### [facility] [address] [place], [address] WBC (Bld) [#/Vol] 7.7 10*3/uL Normal 4.4-11.0 [facility] Comment on above: Performed By: #### L 506.1001, L500.4100 #### [facility] [address] [place], [address] CNPNon 07-21-2024 [facility] Telephone (HCSIND) AZALEA MOTT ([id number]) 1950 F Date Time Provider Department 07/21/24 [facility] your visit today, we recorded the following information about you: Julia Pleitez LPN 07/21/2024 2:02 PM Signed Date/Time: 07/21/2024 2:01 PM Spoke with Azalea @ phone #: [phone] - Preferred # for contact: [phone] Have you received help from a home care company in the last 60 days? no Are you agreeable to [facility] services? yes What address will we be seeing you at? [address] [facility] [address] Do you have any upcoming appointments or [...] curcumin - Black Cohosh 40 mg tab (May) Take 1 tablet by mouth. Take 1 [...] 11/21/2011 03/28/2016 Thickened endometrium [R93.89] 12/05/2011 03/28/2016 Laurel of foot [L84] 08/17/2013 03/28/2016 Primary osteoarthritis [...] states [Z98.890] 07/12/2024 Encounter Status:Closed by JULIA PLEITEZ on 07/21/24 [facility] Telephone (HCSIND) AZALEA MOTT ([id number]) 1950 F Date Time Provider Department 07/21/24 NAVDEEP HOLCOMB During your visit today, we recorded the following information about you: Julia Pleitez LPN 07/21/2024 1:39 PM Signed Navdeep Holcomb MD Please advise if you are agreeable to signing and following for HHC services? Our Clinicians will be sending the Plan of Care to you for review and approval. They will reach out for any appropriate orders required to provide home care services for the patient. We are not able to initiate HHC services without a following provider. Home care clinicians may also obtain orders from [facility] Providers Thank you and we would be happy to answer any questions. JOSE Pace Victor H, MD 07/21/2024 2:26 PM Signed I can follow HH. Allergies As of Date: 07/21/2024 Noted Allergy Reaction NORCO (HYDROCODONE-ACETAMINO PHEN) 10/24/2020 14 - Other: See Comments Comments: Weird dreams. Date Reviewed: 07/20/2024 Reviewed by: Frida Bourgeois LPN - Fully Assessed Reason for Visit: Home Care [4073] Cmt: to follow Prescriptions as of 07/21/2024 - [...] 11/21/2011 03/28/2016 Thickened endometrium [R93.89] 12/05/2011 03/28/2016 Laurel of foot [L84] 08/17/2013 03/28/2016 Primary osteoarthritis [...] states [Z98.890] 07/12/2024 Encounter Status:Closed by JULIA PLEITEZ on 07/21/24 Normal [facility] Carbon dioxide, total [Moles /volume] in Central venous bloodOrdered By: New Bear on 07-21-2024 CO2 [Moles/Vol] 26.8 mmol/L 21.0-32.0 [facility] Chloride assayOrdered By: Jake Bear on 07-21-2024 Chloride [Moles/Vol] 98 mmol/L 98-108 [facility] Eosinophil percentageOrdered By: New Bear on 07-21-2024 Eosinophils/100 WBC (Bld) 3.6 % 0-5 [facility] Erythrocyte distribution wid th ratioOrdered By: New Bear on 07-21-2024 Erythrocyte distribution width (RBC) [Ratio] 13.2 % 11.6-14.6 [facility] Erythrocyte distribution wid th standard deviationOrdered By: New Bear on 07-21-2024 Erythrocyte distribution width (RBC) [Ratio] 43.5 fl 35.1-43.9 [facility] Glomerular filtration rate ( GFR) estimation/1.73 sq m using serum, plasma, or whole bOrdered By: New Bear on 07-21-2024 GFR/1.73 sq M.predicted among non-blacks MDRD (S/P/Bld) [Vol rate/Area] 60 mL/min/{1.73_m2} >60 [facility] Comment on above: mL/min/1.73m2 CKD-EP I Creatinine Equation (2020) Hematocrit Auto (Bld) [Volum e fraction]Ordered By: New Bear on 07-21-2024 Hematocrit (Bld) [Volume fraction] 31.3 % Low 37-47 [facility] Hemoglobin measurementOrdere d By: New Bear on 07-21-2024 Hemoglobin (Bld) [Mass/Vol] 10.2 g/dL Low 12.0-15.0 [facility] Immature granulocytes/100 WB C Auto (Bld)Ordered By: New Bear on 07-21-2024 Immature granulocytes/100 WBC (Bld) 0.400 % 0.0-0.9 [facility] Comment on above: IG% - Immature Granu locytes (promyelocytes, myelocytes and metamyelocytes) > 1% indicates that a LEFT SHIFT is Present. MCV (mean corpuscular volume ) determinationOrdered By: New Bear on 07-21-2024 MCV (RBC) [Entitic vol] 91.0 fL 81-99 [facility] Mean corpuscular hemoglobin (MCH) determinationOrdered By: New Bear 07-21-2024 MCH (RBC) [Entitic mass] 29.7 pg 27.0-32.0 [facility] Mean corpuscular hemoglobin concentration (MCHC) determinationOrdered By: New Bear on 07-21-2024 MCHC (RBC) [Mass/Vol] 32.6 g/dL 32-36 [facility] Mean platelet volume determi nationOrdered By: New Bear on 07-21-2024 Platelet mean volume (Bld) [Entitic vol] 10.1 fL 6.2-12.0 [facility] Monocyte percentageOrdered B y: New Bear on 07-21-2024 Monocytes/100 WBC (Bld) 8.1 % 0-10 [facility] Neutrophil percentageOrdered By: New Bear on 07-21-2024 Neutrophils/100 WBC (Bld) 64.1 % 47-70 [facility] Nucleated red blood cell per centageOrdered By: New Bear on 07-21-2024 Nucleated RBC/100 WBC (Bld) [Ratio] 0 % 0-5 [facility] Platelet countOrdered By: Jake Bear on 07-21-2024 Platelets (Bld) [#/Vol] 383 10*3/uL 150-450 [facility] Potassium measurement (mass/ volume)Ordered By: New Bear on 07-21-2024 Potassium (Unsp spec) [Mass/Vol] 3.8 mmol/L 3.3-5.1 [facility] RBC Auto (Bld) [#/Vol]Ordere d By: New Bear on 07-21-2024 RBC (Bld) [#/Vol] 3.44 10*6/uL Low 4.2-5.4 [facility] Serum creatinine measurement (mass/volume)Ordered By: New Chema on 07-21-2024 Creatinine [Mass/Vol] 0.99 mg/dL 0.70-1.20 [facility] Serum glucose measurement (m ass/volume)Ordered By: New Chema on 07-21-2024 Glucose [Mass/Vol] 107 mg/dL High 70-99 [facility] Serum or plasma calcium cathi urement (mass/volume)Ordered By: New Bear 07-21-2024 Calcium [Mass/Vol] 9.8 mg/dL 7.6-11.0 [facility] Serum or plasma urea nitroge n measurement (mass/volume)Ordered By: New Chema 07-21-2024 Urea nitrogen [Mass/Vol] 17 mg/dL 4-19 [facility] Sodium levelOrdered By: New Bear 07-21-2024 Sodium [Moles/Vol] 136 mmol/L 133-145 [facility] White blood cell (WBC) count Ordered By: New Bear 07-21-2024 WBC (Bld) [#/Vol] 7.7 10*3/uL 4.4-11.0 [facility] CNOVon 07-20-2024 CNOV Office Visit (ORNA ) AZALEA MOTT ([id number]) 1950 F Date Time Provider Department 07/20/24 2:30 PM JAMAL LARIOS During your visit today, we recorded the following information about you: Jamal Larios PA-C 07/20/2024 2:41 PM Signed Post-op Office [...] new swelling, drainage, shortness of breath Jamal Larios PA-C Orthopaedic Surgery Referring Provider: ELIGIO BERGERON [[id number]] Allergies As of Date: 07/20/2024 Noted Allergy Reaction NORCO (HYDROCODONE-ACETAMINO PHEN) 10/24/2020 14 - Other: See Comments Comments: Weird dreams. Date Reviewed: 07/20/2024 Reviewed by: Frida Bourgeois LPN - Fully Assessed Reason for Visit: Established Patient [175] Hip Replacement [324] Follow Up [171] Pain [78] Primary Visit Diagnosis:Status post right hip replacement [Z96.641] Order(s):XR HIP GENERAL 3V PELV/AP/LAT RIGHT [5719255] Order #: [id number] FUTURE CONSULT TO [facility] AT HOME [6391091] Order #: [id number]: 1 CONSULT TO PHYSICAL THERAPY [9032] Order #: [id number]: 1 FUTURE Prescriptions as of 07/20/2024 - [...] [N95.0] 11/21/2011 (more content not included)... Normal [facility] CNPNon 07-20-2024 CNPN Telephone (HCSIND) PANTERAAZALEA Alexis ([id number]) 1950 F Date Time Provider Department 07/20/24 JAMAL LARIOS HCSIND During your visit today, we recorded the following information about you: [place] Montero LPN 07/20/2024 5:09 PM Signed Jamal Larios PA-C Thank you for the referral for Azalea to receive home care services through [facility]. Is Azalea still inpatient at [facility]? Typically the disability case manager at the facility sets up [...] Rebecca, LPN 07/21/2024 11:55 AM Signed Jamal Larios PA-C Hello I spoke with Veronika at [facility]. Per Veronika patient is still admitted and they plan to discharge patient home tomorrow. Veronika is to send us orders for PT and OT for [facility] services. I will go ahead and cancel the referral sent from your office and await a referral to be sent from jennifer [facility] Thank you Keyonna Collins LPN Allergies As [...] 11/21/2011 03/28/2016 Thickened endometrium [R93.89] 12/05/2011 03/28/2016 Laurel of foot [L84] 08/17/2013 03/28/2016 Primary osteoarthritis [...] states [Z98.890] 07/12/2024 Encounter Status:Closed by FLORIDA MONTERO on 07/20/24 Normal [facility] XR HIP 3V PELV+ AP/LAT RTon 07-20-2024 [...] as discussed under Results portion of report. Head Of Music: RACHELLE Transcribe Date/Time: Jul 20 2024 3:09P Dictated by : DELON ARRIAGA DO This examination was interpreted and the report reviewed and electronically signed by: DELON ARRIAGA DO on Jul 20 2024 3:10PM EST [id number] [facility] XR Pelvis and Hip - right AP and Lateral frogon 07-20-2024 IMPRESSION: Findings as discussed under Results portion of report. Head Of Music: PSCB Transcribe Date/Time: Jul 20 2024 3:09P Dictated by : DELON ARRIAGA DO This examination was interpreted and the report reviewed and electronically signed by: DELON ARRIAGA DO on Jul 20 2024 3:10PM EST [facility] * * *Final Report* * * [...] no evidence of loosening of the components. [facility] Provider, Yasmeen Toscano - 07/20/2024 * [...] as discussed under Results portion of report. Head Of Music: PSCMalcolm Transcribe Date/Time: Jul 20 2024 3:09P Dictated by : DELON ARRIAGA DO This examination was interpreted and the report reviewed and electronically signed by: DELON ARRIAGA DO on Jul 20 2024 3:10PM [facility] Radiology Study observation (narrative) [facility] XR Pelvis and Hip - right AP and Lateral frogOrdered By: Ccf Provider on 07-20-2024 [facility] Basic Metabolic Profile (BMP )on 07-14-2024 BUN/CRE 15.9 RATIO Normal 10-20 [facility] Comment on above: Performed By: #### L 100.0100, L500.2500 #### [facility] [address] [place], [address] Calcium [Mass/Vol] 9.4 mg/dL Normal 7.6-11.0 [facility] Comment on above: Performed By: #### L 100.0100, L500.2500 #### [facility] [address] [place], [address] Chloride [Moles/Vol] 103 mmol/L Normal 98-108 [facility] Comment on above: Performed By: #### L 100.0100, L500.2500 #### [facility] [address] [place], [address] CO2 [Moles/Vol] 26.3 mmol/L Normal 21.0-32.0 [facility] Comment on above: Performed By: #### L 100.0100, L500.2500 #### [facility] [address] [place], [address] Creatinine [Mass/Vol] 0.93 mg/dL Normal 0.70-1.20 [facility] Comment on above: Performed By: #### L 100.0100, L500.2500 #### [facility] [address] [place], [address] ECRCL 65.95 ml/min Normal 50-250 [facility] Comment on above: Performed By: #### L 100.0100, L500.2500 #### [facility] [address] [place], [address] GAP 10 Normal 5-15 [facility] Comment on above: Performed By: #### L 100.0100, L500.2500 #### [facility] [address] [place], [address] GFR/1.73 sq M.predicted among non-blacks MDRD (S/P/Bld) [Vol rate/Area] 65 mL/min/{1.73_m2} Normal >60 [facility] Comment on above: Result Comment: mL/m in/1.73m2 CKD-EPI Creatinine Equation (2020) Performed By: #### L 100.0100, L500.2500 #### [facility] [address] [place], [address] Glucose [Mass/Vol] 124 mg/dL High 70-99 [facility] Comment on above: Performed By: #### L 100.0100, L500.2500 #### [facility] [address] [place], [address] Potassium [Moles/Vol] 4.1 mmol/L Normal 3.3-5.1 [facility] Comment on above: Performed By: #### L 100.0100, L500.2500 #### [facility] [address] [place], [address] Sodium [Moles/Vol] 139 mmol/L Normal 133-145 [facility] Comment on above: Performed By: #### L 100.0100, L500.2500 #### [facility] [address] [place], [address] Urea nitrogen [Mass/Vol] 15 mg/dL Normal 4-19 [facility] Comment on above: Performed By: #### L 100.0100, L500.2500 #### [facility] [address] [place], [address] CBC W/Diff, Automatedon 05-0 8-2025 Absolute Lymph 1.60 X10 3/uL Normal 0.83-4.51 [facility] Comment on above: Performed By: #### L 100.0100, L500.2500 #### [facility] [address] [place], [address] Absolute Neut 6.5 X10 3/uL Normal 2.0-7.7 [facility] Comment on above: Performed By: #### L 100.0100, L500.2500 #### [facility] [address] [place], [address] Basophils/100 WBC (Bld) 0.4 % Normal 0-1 [facility] Comment on above: Performed By: #### L 100.0100, L500.2500 #### [facility] [address] [place], [address] Eosinophils/100 WBC (Bld) 2.6 % Normal 0-5 [facility] Comment on above: Performed By: #### L 100.0100, L500.2500 #### [facility] [address] [place], [address] Erythrocyte distribution width (RBC) [Ratio] 13.2 % Normal 11.6-14.6 [facility] Comment on above: Performed By: #### L 100.0100, L500.2500 #### [facility] [address] [place], [address] Hematocrit (Bld) [Volume fraction] 29.1 % Low 37-47 [facility] Comment on above: Performed By: #### L 100.0100, L500.2500 #### [facility] [address] [place], [address] Hemoglobin (Bld) [Mass/Vol] 9.6 g/dL Low 12.0-15.0 [facility] Comment on above: Performed By: #### L 100.0100, L500.2500 #### [facility] [address] [place], [address] IG% 0.900 Normal 0.0-0.9 [facility] Comment on above: Result Comment: IG% - Immature Granulocytes (promyelocytes, myelocytes and metamyelocytes) > 1% indicates that a LEFT SHIFT is Present. Performed By: #### L 100.0100, L500.2500 #### [facility] [address] [place], [address] Lymphocytes/100 WBC (Bld) 17.9 % Low 19-41 [facility] Comment on above: Performed By: #### L 100.0100, L500.2500 #### [facility] [address] [place], [address] MCH (RBC) [Entitic mass] 29.4 pg Normal 27.0-32.0 [facility] Comment on above: Performed By: #### L 100.0100, L500.2500 #### [facility] [address] [place], [address] MCHC (RBC) [Mass/Vol] 33.0 g/dL Normal 32-36 [facility] Comment on above: Performed By: #### L 100.0100, L500.2500 #### [facility] [address] [place], [address] MCV (RBC) [Entitic vol] 89.3 fL Normal 81-99 [facility] Comment on above: Performed By: #### L 100.0100, L500.2500 #### [facility] [address] [place], [address] Monocytes/100 WBC (Bld) 5.6 % Normal 0-10 [facility] Comment on above: Performed By: #### L 100.0100, L500.2500 #### [facility] [address] [place], [address] Neutrophils/100 WBC (Bld) 72.6 % High 47-70 [facility] Comment on above: Performed By: #### L 100.0100, L500.2500 #### [facility] [address] [place], [address] Nucleated RBC (Bld) [#/Vol] 0 10*3/uL Normal 0-5 [facility] Comment on above: Performed By: #### L 100.0100, L500.2500 #### [facility] [address] [place], [address] Platelet mean volume (Bld) [Entitic vol] 9.1 fL Normal 6.2-12.0 [facility] Comment on above: Performed By: #### L 100.0100, L500.2500 #### [facility] [address] [place], [address] Platelets (Bld) [#/Vol] 380 10*3/uL Normal 150-450 [facility] Comment on above: Performed By: #### L 100.0100, L500.2500 #### [facility] [address] [place], [address] RBC (Bld) [#/Vol] 3.26 10*6/uL Low 4.2-5.4 [facility] Comment on above: Performed By: #### L 100.0100, L500.2500 #### [facility] [address] [place], [address] RDW SD 42.6 fl Normal 35.1-43.9 [facility] Comment on above: Performed By: #### L 100.0100, L500.2500 #### [facility] [address] [place], [address] WBC (Bld) [#/Vol] 9.0 10*3/uL Normal 4.4-11.0 [facility] Comment on above: Performed By: #### L 100.0100, L500.2500 #### [facility] [address] [place], [address] CNPCande 07-14-2024 JOHN Telephone (BRIJESH) AZALEA MOTT ([id number]) 1950 F Date Time Provider Department 07/14/24 TATY GREEN During your visit today, we recorded the following information about you: Yamilka Celis 07/14/2024 9:13 AM Signed Bianca, from [facility], calling to report the patient is admitted and has a heart rate has been between 130-140's. Bianca asked for a sooner follow up visit with cardiology, nothing sooner, patient on wait list. Please call to advise if any medication changes are need or other orders: [phone] Ask for Bianca or Alexandrea Patel RN 07/15/2024 9:02 AM Signed Pt is admitted to SNF in [place] transitional care unit. Dr. Garg is rounding on pt and adjusted metoprolol to 100 mg BID. Pt will be transitioning to [place] cardiology. Allergies As of Date: 07/14/2024 Noted [...] 11/21/2011 03/28/2016 Thickened endometrium [R93.89] 12/05/2011 03/28/2016 Laurel of foot [L84] 08/17/2013 03/28/2016 Primary osteoarthritis [...] Encounter Status:Closed by ALEXANDREA RAMEY on 07/15/24 [facility] CNPN Telephone (ORMDNA) AZALEA MOTT ([id number]) 1950 F Date Time Provider Department 07/14/24 ELIGIO BERGERON ORERNESTO During your visit today, we recorded the following information about you: Kasie Escobar RN 07/14/2024 8:27 AM Signed Kacy from [facility] [phone] Pt has elevated HR 130s. She was [...] curcumin - Black Cohosh 40 mg tab (May) Take 1 tablet by mouth. Take 1 [...] 11/21/2011 03/28/2016 Thickened endometrium [R93.89] 12/05/2011 03/28/2016 Laurel of foot [L84] 08/17/2013 03/28/2016 Primary osteoarthritis [...] postprocedural states [Z98.890] 07/12/2024 Encounter Status:Closed by KASIE ESCOBAR on 07/14/24 Normal [facility] Calculated very low density lipoprotein (VLDL) cholesterol measurementOrdered By: New Bear on 07-09-2024 Calculated very low density lipoprotein (VLDL) cholesterol measurement 16 mg/dL 5-40 [facility] LDL calc ser/plasOrdered By: New Bear on 07-09-2024 Cholesterol in LDL [Mass/Vol] 49 mg/dL [facility] Comment on above: Upmynsnfyh=433-764 m g/dL & Higher Phps=820 mg/dL or greater Lipid Profileon 07-09-2024 CHOL:HDL 3.43 Normal [facility] Comment on above: Performed By: #### L 506.1001, L500.4100 #### [facility] [address] [place], [address] Cholesterol [Mass/Vol] 93 mg/dL Normal <=200 [facility] Comment on above: Result Comment: Chol esterol level, Desirable <200 mg/dL Borderline high cholesterol 200-239 mg/dL High cholesterol >=240 mg/dL Recommendations of the NCEP Adult Treatment Panel for the following risk-cutoff thresholds for the [place] population. Performed By: #### L 506.1001, L500.4100 #### [facility] [address] [place], [address] Cholesterol in HDL [Mass/Vol] 27 mg/dL Low [facility] Comment on above: Result Comment: Noemi onal Cholesterol Education Program (NCEP) guidelines: <40 mg/dL: Low HDL-cholesterol (major risk factor for CHD) >= 60 mg/dL: High HDL-cholesterol (negative risk factor for CHD) HDL-cholesterol is affected by a number of factors, e.g. smoking, exercise, hormones, sex and age. Performed By: #### L 506.1001, L500.4100 #### [facility] [address] [place], [address] Cholesterol in LDL [Mass/Vol] 49 mg/dL Normal [facility] Comment on above: Result Comment: Bord ewjqly=717-970 mg/dL Higher Gidc=440 mg/dL or greater Performed By: #### L 506.1001, L500.4100 #### [facility] [address] [facility] [address] Cholesterol in VLDL [Mass/Vol] 16 mg/dL Normal 5-40 [facility] Comment on above: Performed By: #### L 506.1001, L500.4100 #### [facility] [address] [place], [address] Triglyceride [Mass/Vol] 82 mg/dL Normal [facility] Comment on above: Result Comment: The drugs N-Acetylcysteine and Metamizole may falsely depress this assay. Normal range: <150 mg/dL Borderline High: 150-199 mg/dL High: 200-499 mg/dL Very High: >500 mg/dL Performed By: #### L 506.1001, L500.4100 #### [facility] [address] [place], [address] Screening total cholesterol/ high density lipoprotein (HDL) cholesterol ratioOrdered By: New Bear on 07-09-2024 Cholesterol.total/Choles terol in HDL [Mass ratio] 3.43 {ratio} [facility] Serum or plasma cholesterol in HDL measurement (mass/volume)Ordered By: New Bear on 07-09-2024 Cholesterol in HDL [Mass/Vol] 27 mg/dL Low >40 [facility] Comment on above: National Cholesterol Education Program (NCEP) guidelines:<40 mg/dL: Low HDL-cholesterol (major risk factor for CHD)>= 60 mg/dL: High HDL-cholesterol (negative risk factor for CHD)HDL-cholesterol is affected by a number of factors, e.g. smoking, exercise, hormones, sex and age. Serum or plasma cholesterol measurement (mass/volume)Ordered By: New Bear on 07-09-2024 Cholesterol [Mass/Vol] 93 mg/dL <201 [facility] Comment on above: Cholesterol level, D esirable <200 mg/dLBorderline high cholesterol 200-239 mg/dLHigh cholesterol >=240 mg/dLRecommendations of the NCEP Adult Treatment Panel for the following risk-cutoff thresholds for the [place] population. Triglycerides measurementOrd ered By: New Bear on 07-09-2024 Triglyceride [Mass/Vol] 82 mg/dL <199 [facility] Comment on above: The drugs N-Acetylcy steine and Metamizole may falsely depress this assay. Normal range: <150 mg/dLBorderline High: 150-199 mg/dLHigh: 200-499 mg/dLVery High: >500 mg/dL Vitamin D,25 Hydroxyon 07-09 Vitamin D 25-OH 86.9 ng/mL Normal 30-100 [facility] Comment on above: Result Comment: Kamilah min D Status Deficiency: <20 ng/mL (50nmol/L) Insufficiency: 20-30 ng/mL (50-75 nmol/L) Sufficiency: 30-100 ng/mL (75-250 nmol/L) Toxicity: >100 ng/mL (>250 nmol/L) Performed By: #### L 506.1001, L500.4100 #### [facility] [address] [place], [address] 12 Lead EKGon 07-08-2024 12 Lead EKG [facility] [address] [place] [address] 12 Lead EKG 07/08/24 0846 MR#: [id number] Acct: [id number] Name: AZALEA MOTT Rep #: [id number] : 1950 74 From: Olga Galvez MD Attending Dr: Dr. New Bear MD Status: ADM IN Ordering Dr: New Bear MD Date: 07/08/24 Location: U Sex: F C Admitted: 07/06/24 Test Reason [...] Anterolateral leads Confirmed by OLGA GALVEZ ([id number]), photo editor KEYA SALAZAR ([id number]) on 07/08/2024 1:27:40 PM Referred By: CHEMA Confirmed By: OLGA GALVEZ 07/08/24 1327 Date Olga Galvez MD CC: Dr. New Bear MD; Dr. Navdeep Holcomb MD Signed Normal [facility] Electrocardiogram reportOrde red By: Olga Galvez on 07-08-2024 EKG study [facility] [address] [place] [address] 12 Lead EKG 07/08/24 0846 MR#: [id number] Acct: [id number] Name: PANTERAAZALEAPANDA FARRELL Rep #:[id number] : 1950 74 From: Olga Galvez MD Attending Dr: Dr. New Bear MD Status: ADM IN Ordering Dr: New Bear MD Date: 05/03 Location: [facility] Sex: F C Admitted: 07/06/24 Test Reason [...] in Anterolateral leads Confirmed by OLGA GALVEZ ([id number]), photo editor KEYA SALAZAR ([id number]) on 07/08/2024 1:27:40 PM Referred By: CHEMA Confirmed By: OLGA GALVEZ 07/08/24 1327 Date _ Olga Galvez MD CC: Dr. New Bear MD; Dr. Navdeep Holcomb MD ~ Signed [facility] Work Phone: HH, Hemoglobin AND Hematocri ton 07-08-2024 Hematocrit (Bld) [Volume fraction] 30.3 % Low 37-47 [facility] Comment on above: Performed By: #### L 100.0600 #### [facility] [address] [place], [address] Hemoglobin (Bld) [Mass/Vol] 10.3 g/dL Low 12.0-15.0 [facility] Comment on above: Performed By: #### L 100.0600 #### [facility] [address] [place], [address] Basic Metabolic Profile (BMP )on 07-07-2024 BUN/CRE 21.0 RATIO High 10-20 [facility] Comment on above: Performed By: #### L 500.2500, L100.0100 #### [facility] [address] [place], [address] Calcium [Mass/Vol] 9.2 mg/dL Normal 7.6-11.0 [facility] Comment on above: Performed By: #### L 500.2500, L100.0100 #### [facility] [address] [place], [address] Chloride [Moles/Vol] 101 mmol/L Normal 98-108 [facility] Comment on above: Performed By: #### L 500.2500, L100.0100 #### [facility] [address] [place], [address] CO2 [Moles/Vol] 27.8 mmol/L Normal 21.0-32.0 [facility] Comment on above: Performed By: #### L 500.2500, L100.0100 #### [facility] [address] [place], [address] Creatinine [Mass/Vol] 0.97 mg/dL Normal 0.70-1.20 [facility] Comment on above: Performed By: #### L 500.2500, L100.0100 #### [facility] [address] [place], [address] ECRCL 61.92 ml/min Normal 50-250 [facility] Comment on above: Performed By: #### L 500.2500, L100.0100 #### [facility] [address] [place], [address] GAP 8 Normal 5-15 [facility] Comment on above: Performed By: #### L 500.2500, L100.0100 #### [facility] [address] [place], [address] GFR/1.73 sq M.predicted among non-blacks MDRD (S/P/Bld) [Vol rate/Area] 62 mL/min/{1.73_m2} Normal >60 [facility] Comment on above: Result Comment: mL/m in/1.73m2 CKD-EPI Creatinine Equation (2020) Performed By: #### L 500.2500, L100.0100 #### [facility] [address] [place], [address] Glucose [Mass/Vol] 112 mg/dL High 70-99 [facility] Comment on above: Performed By: #### L 500.2500, L100.0100 #### [facility] [address] [place], [address] Potassium [Moles/Vol] 4.9 mmol/L Normal 3.3-5.1 [facility] Comment on above: Performed By: #### L 500.2500, L100.0100 #### [facility] [address] [place], [address] Sodium [Moles/Vol] 137 mmol/L Normal 133-145 [facility] Comment on above: Performed By: #### L 500.2500, L100.0100 #### [facility] [address] [place], [address] Urea nitrogen [Mass/Vol] 20 mg/dL High 4-19 [facility] Comment on above: Performed By: #### L 500.2500, L100.0100 #### [facility] [address] [place], [address] CBC W/Diff, Automatedon 05-0 Absolute Lymph 1.83 X10 3/uL Normal 0.83-4.51 [facility] Comment on above: Performed By: #### L 500.2500, L100.0100 #### [facility] [address] [place], [address] Absolute Neut 6.0 X10 3/uL Normal 2.0-7.7 [facility] Comment on above: Performed By: #### L 500.2500, L100.0100 #### [facility] [address] [place], [address] Basophils/100 WBC (Bld) 0.4 % Normal 0-1 [facility] Comment on above: Performed By: #### L 500.2500, L100.0100 #### [facility] [address] [place], [address] Eosinophils/100 WBC (Bld) 4.2 % Normal 0-5 [facility] Comment on above: Performed By: #### L 500.2500, L100.0100 #### [facility] [address] [place], [address] Erythrocyte distribution width (RBC) [Ratio] 13.0 % Normal 11.6-14.6 [facility] Comment on above: Performed By: #### L 500.2500, L100.0100 #### [facility] [address] [place], [address] Hematocrit (Bld) [Volume fraction] 28.9 % Low 37-47 [facility] Comment on above: Performed By: #### L 500.2500, L100.0100 #### [facility] [address] [place], [address] Hemoglobin (Bld) [Mass/Vol] 9.7 g/dL Low 12.0-15.0 [facility] Comment on above: Performed By: #### L 500.2500, L100.0100 #### [facility] [address] [place], [address] IG% 0.800 Normal 0.0-0.9 [facility] Comment on above: Result Comment: IG% - Immature Granulocytes (promyelocytes, myelocytes and metamyelocytes) > 1% indicates that a LEFT SHIFT is Present. Performed By: #### L 500.2500, L100.0100 #### [facility] [address] [place], [address] Lymphocytes/100 WBC (Bld) 20.1 % Normal 19-41 [facility] Comment on above: Performed By: #### L 500.2500, L100.0100 #### [facility] [address] [place], [address] MCH (RBC) [Entitic mass] 30.0 pg Normal 27.0-32.0 [facility] Comment on above: Performed By: #### L 500.2500, L100.0100 #### [facility] [address] [place], [address] MCHC (RBC) [Mass/Vol] 33.6 g/dL Normal 32-36 [facility] Comment on above: Performed By: #### L 500.2500, L100.0100 #### [facility] [address] [place], [address] MCV (RBC) [Entitic vol] 89.5 fL Normal 81-99 [facility] Comment on above: Performed By: #### L 500.2500, L100.0100 #### [facility] [address] [place], [address] Monocytes/100 WBC (Bld) 8.6 % Normal 0-10 [facility] Comment on above: Performed By: #### L 500.2500, L100.0100 #### [facility] [address] [place], [address] Neutrophils/100 WBC (Bld) 65.9 % Normal 47-70 [facility] Comment on above: Performed By: #### L 500.2500, L100.0100 #### [facility] [address] [place], [address] Nucleated RBC (Bld) [#/Vol] 0 10*3/uL Normal 0-5 [facility] Comment on above: Performed By: #### L 500.2500, L100.0100 #### [facility] [address] [place], [address] Platelet mean volume (Bld) [Entitic vol] 10.2 fL Normal 6.2-12.0 [facility] Comment on above: Performed By: #### L 500.2500, L100.0100 #### [facility] [address] [place], [address] Platelets (Bld) [#/Vol] 340 10*3/uL Normal 150-450 [facility] Comment on above: Performed By: #### L 500.2500, L100.0100 #### [facility] [address] [place], [address] RBC (Bld) [#/Vol] 3.23 10*6/uL Low 4.2-5.4 [facility] Comment on above: Performed By: #### L 500.2500, L100.0100 #### [facility] [address] [place], [address] RDW SD 42.5 fl Normal 35.1-43.9 [facility] Comment on above: Performed By: #### L 500.2500, L100.0100 #### [facility] [address] [place], [address] WBC (Bld) [#/Vol] 9.1 10*3/uL Normal 4.4-11.0 [facility] Comment on above: Performed By: #### L 500.2500, L100.0100 #### [facility] [address] [place], [address] Basic metabolic 2000 panelon 07-06-2024 Anion gap [Moles/Vol] 7 mmol/L Low 8-15 [facility] Comment on above: Order Comment: Speci men Type: BLOOD SPECIMENOrdering Facility: [facility] Address: [address] [place] [address] Performed By: #### 2 4321-2 ####[facility] [id number] [place] [address] [place] Calcium [Mass/Vol] 9.3 mg/dL Normal 8.5-10.2 [facility] Comment on above: Order Comment: Speci men Type: BLOOD SPECIMENOrdering Facility: [facility] Address: [address] [place] [address] Performed By: #### 2 4321-2 ####[facility]ORATORYCLIA [id number] [place] [address] [place] Chloride [Moles/Vol] 101 mmol/L Normal 98-107 [facility] Comment on above: Order Comment: Speci men Type: BLOOD SPECIMENOrdering Facility: [facility] Address: [address] [place] [address] Performed By: #### 2 4321-2 ####[facility]ORATORYCLIA [id number] [place] [address] [place] CO2 [Moles/Vol] 29 mmol/L Normal 22-30 [facility] Comment on above: Order Comment: Speci men Type: BLOOD SPECIMENOrdering Facility: [facility] Address: [address] [place] [address] Performed By: #### 2 4321-2 ####[facility]ORATORYCLIA [id number] [place] [address] [place] Creatinine [Mass/Vol] 0.93 mg/dL Normal 0.58-0.96 [facility] Comment on above: Order Comment: Speci men Type: BLOOD SPECIMENOrdering Facility: [facility] Address: [address] [place] [address] Performed By: #### 2 4321-2 ####[facility]ORATORYCLIA [id number] [address] [place] Creatinine and Glomerular filtration rate.predicted panel (S/P/Bld) 65 mL/min/1.73m??? Normal >=60 [facility] Comment on above: Order Comment: David del real Type: BLOOD SPECIMENOrdering Facility: [facility] Address: [address] [place] [address] Result Comment: Jessica mated Glomerular Filtration Rate [...] actual GFR. Performed By: #### 2 4321-2 ####[facility]ORYCL[facility] [id number] [place] [id number] [place] Glucose [Mass/Vol] 133 mg/dL High 74-99 [facility] Comment on above: Order Comment: David del real Type: BLOOD SPECIMENOrdering Facility: [facility] Address: [address] [place] [address] Result Comment: The [place] Diabetes Association (ADA) provides guidance for cutoff [...] Standards of Medical Care in Diabetes 2016, [place] Diabetes Association. Diabetes Care. 2016.39(Suppl 1). Performed By: #### 2 4321-2 ####[facility]ORYCLIA [id number] [place] [id number] [place] Potassium [Moles/Vol] 4.6 mmol/L Normal 3.7-5.1 [facility] Comment on above: Order Comment: David del real Type: BLOOD SPECIMENOrdering Facility: [facility] Address: [address] [place] [address] Performed By: #### 2 4321-2 ####[facility]ORYCLIA [id number] [address] STATES [facility] Sodium [Moles/Vol] 137 mmol/L Normal 136-144 [facility] Comment on above: Order Comment: Speci men Type: BLOOD SPECIMENOrdering Facility: [facility] Address: [address] [place] [address] Performed By: #### 2 4321-2 ####[facility]ORATORYCLIA [id number] [address] Urea nitrogen [Mass/Vol] 22 mg/dL High 7-21 [facility] Comment on above: Order Comment: Speci men Type: BLOOD SPECIMENOrdering Facility: [facility] Address: [address] [place] [address] Performed By: #### 2 4321-2 ####[facility]ORYCLIA [id number] [address] CNDSon 07-06-2024 CNDS HNO ID: [id number] Author: JORGE L ZEE APRN.CIRCLE BEVELER Service: General Internal Medicine Author Type: Nurse [...] MEDICAL TEAM: [facility] Main [facility] Doctor: Eligio Bergeron* Primary Care Provider: Navdeep Holcomb MD My Medical Team Members: Treatment Team: Attending Provider: Eligio Bergeron MD Consulting: Rupert Trivedi MD MY CONDITION AT DISCHARGE: Stable REASON [...] was noted. Urinary retention was noted and Schulz catheter was placed. Voiding trial was attempted but failed and schulz catheter was replaced. Schulz catheter will remain in place upon discharge and voiding trial can be attempted in 2-3 days. NAHID resolved. Atrial fibrillation with RVR was noted. Doses of IV Lopressor were given and heart rate improved. Cardiology was consulted. Oral metoprolol and Cardizem were ordered for continued rate control. You remained in a.fib with a controlled rate. PT/OT recommended SNF. You will be discharged to [facility]. Please follow-up with your PCP in [...] No pending results Discharge Disposition Discharge Disposition: [facility] - Less than 30 Days Activity [...] Follow-up Appointment When: In 2 weeks Rupert Trivedi MD [phone] Rupert Trivedi MD INC [address] [place] [facility] [address] PCP Requested Referral Follow-up Appointment Orthopedics When: In 2 weeks Eligio Bergeron MD [phone] [address] [facility] [address] PCP Requested Referral Additional Provider to Provider [...] which reso (more content not included)... Normal [facility] NUTRITIONon 07-06-2024 NUTRITION HNO ID: [id number] Author: YOBANI MUÑOZ RD Service: Nutrition Therapy [...] 03/31/24. 01/27/24 217lbs, 08/25/23 212lbs, 08/03/23 213lbs, 04/23/23 Usual Weight Obtained From: Chart Review Weight Change: Stable weight(s) Lines, Drains, and Airways Drain Duration Indwelling Urinary Catheter 07/04/242039 [facility] Coude 16 Fr 1 day MNT Billing: $ Routine Care : 1 unit Time Spent (mins): 1 SIGNATURE: Yobani Muñoz RD PATIENT NAME: Azalea Mott DATE: July 06, 2024 TIME: 11:[address] [facility] Basic metabolic 2000 panelon 07-05-2024 Anion gap [Moles/Vol] 7 mmol/L Low 8-15 [facility] Comment on above: Order Comment: Speci men Type: BLOOD SPECIMENOrdering Facility: [facility] Address: [address] [place] [address] Performed By: #### 2 4321-2 ####[facility]ORYCLIA [id number] [place] [address] [place] Calcium [Mass/Vol] 9.5 mg/dL Normal 8.5-10.2 [facility] Comment on above: Order Comment: Speci men Type: BLOOD SPECIMENOrdering Facility: [facility] Address: [address] [place] [address] Performed By: #### 2 4321-2 ####[facility]ORYCLIA [id number] [place] [address] [place] Chloride [Moles/Vol] 101 mmol/L Normal 98-107 [facility] Comment on above: Order Comment: Speci men Type: BLOOD SPECIMENOrdering Facility: [facility] Address: [address] [place] [address] Performed By: #### 2 4321-2 ####[facility]ORYCLIA [id number] [place] [address] [place] CO2 [Moles/Vol] 29 mmol/L Normal 22-30 [facility] Comment on above: Order Comment: Speci men Type: BLOOD SPECIMENOrdering Facility: [facility] Address: [address] [place] [address] Performed By: #### 2 4321-2 ####[facility] LABORATORYCLIA [id number] [place] [id number] [place] [facility] Creatinine [Mass/Vol] 0.93 mg/dL Normal 0.58-0.96 [facility] Comment on above: Order Comment: Speci men Type: BLOOD SPECIMENOrdering Facility: [facility] Address: [address] [place] [address] Performed By: #### 2 4321-2 ####[facility]ORATORYCLIA [id number] [address] Creatinine and Glomerular filtration rate.predicted panel (S/P/Bld) 65 mL/min/1.73m??? Normal >=60 [facility] Comment on above: Order Comment: Speci men Type: BLOOD SPECIMENOrdering Facility: [facility] Address: [address] [place] [address] Result Comment: Jessica mated Glomerular Filtration Rate [...] Performed By: #### 2 4321-2 ####[facility] LABORATORYCLIA [id number] [place] [id number] [place] Glucose [Mass/Vol] 130 mg/dL High 74-99 [facility] Comment on above: Order Comment: David del real Type: BLOOD SPECIMENOrdering Facility: [facility] Address: [address] [place] [address] Result Comment: The [place] Diabetes Association (ADA) provides guidance for cutoff [...] Standards of Medical Care in Diabetes 2016, [place] Diabetes Association. Diabetes Care. 2016.39(Suppl 1). Performed By: #### 2 4321-2 ####[facility]ORATORYCLIA [id number] [address] STATES [place] Potassium [Moles/Vol] 5.3 mmol/L High 3.7-5.1 [facility] Comment on above: Order Comment: David del real Type: BLOOD SPECIMENOrdering Facility: [facility] Address: [address] [place] [address] Performed By: #### 2 4321-2 ####[facility]ORATORYCLIA [id number] [address] Sodium [Moles/Vol] 137 mmol/L Normal 136-144 [facility] Comment on above: Order Comment: Dallasi gt Type: BLOOD SPECIMENOrdering Facility: [facility] Address: [address] [place] [address] Performed By: #### 2 4321-2 ####[facility]ORATORYCLIA [id number] [address] STATES [facility] Urea nitrogen [Mass/Vol] 21 mg/dL Normal 7-21 [facility] Comment on above: Order Comment: David del real Type: BLOOD SPECIMENOrdering Facility: [facility] Address: [address] [place] [address] Performed By: #### 2 4321-2 ####[facility]ORATORYCLIA [id number] [address] OF [place] CBC panel Auto (Bld)on 07-05 Erythrocyte distribution width (RBC) [Ratio] 13.0 % Normal 11.5-15.0 [facility] Comment on above: Order Comment: David del real Type: BLOOD SPECIMENOrdering Facility: [facility] Address: [address] [place] [address] Performed By: #### 5 8410-2 ####[facility]ORATORYCLIA [id number] [address] Hematocrit (Bld) [Volume fraction] 28.2 % Low 36.0-46.0 [facility] Comment on above: Order Comment: Speci men Type: BLOOD SPECIMENOrdering Facility: [facility] Address: [address] [place] [address] Performed By: #### 5 8410-2 ####[facility]ORATORYCLIA [id number] [address] OF [facility] Hemoglobin (Bld) [Mass/Vol] 9.4 g/dL Low 11.5-15.5 [facility] Comment on above: Order Comment: Speci men Type: BLOOD SPECIMENOrdering Facility: [facility] Address: [address] [place] [address] Performed By: #### 5 8410-2 ####[facility]ORATORYCLIA [id number] [address] MCH (RBC) [Entitic mass] 30.1 pg Normal 26.0-34.0 [facility] Comment on above: Order Comment: Speci men Type: BLOOD SPECIMENOrdering Facility: [facility] Address: [address] [place] [address] Performed By: #### 5 8410-2 ####[facility]ORATORYCLIA [id number] [address] MCHC (RBC) [Mass/Vol] 33.3 g/dL Normal 30.5-36.0 [facility] Comment on above: Order Comment: Speci men Type: BLOOD SPECIMENOrdering Facility: [facility] Address: [address] [place] [address] Performed By: #### 5 8410-2 ####[facility]ORATORYCLIA [id number] [address] MCV (RBC) [Entitic vol] 90.4 fL Normal 80.0-100.0 [facility] Comment on above: Order Comment: Speci men Type: BLOOD SPECIMENOrdering Facility: [facility] Address: [address] [place] [address] Performed By: #### 5 8410-2 ####[facility] LABORATORYCLIA [id number] [place] [id number] [place] Nucleated RBC (Bld) [#/Vol] 10*3/uL Normal <0.01 [facility] Comment on above: Order Comment: Speci men Type: BLOOD SPECIMENOrdering Facility: [facility] Address: [address] [place] [address] Performed By: #### 5 8410-2 ####[facility] LABORATORYCLIA [id number] [place] [address] [place] Platelet mean volume (Bld) [Entitic vol] 10.7 fL Normal 9.0-12.7 [facility] Comment on above: Order Comment: Speci men Type: BLOOD SPECIMENOrdering Facility: [facility] Address: [address] [place] [address] Performed By: #### 5 8410-2 ####[facility]ORATORYCLIA [id number] [address] OF [place] Platelets (Bld) [#/Vol] 256 10*3/uL Normal 150-400 [facility] Comment on above: Order Comment: Speci men Type: BLOOD SPECIMENOrdering Facility: [facility] Address: [address] [place] [address] Performed By: #### 5 8410-2 ####[facility] LABORATORYCLIA [id number] [place] [address] [place] RBC (Bld) [#/Vol] 3.12 10*6/uL Low 3.90-5.20 [facility] Comment on above: Order Comment: Speci men Type: BLOOD SPECIMENOrdering Facility: [facility] Address: [address] [place] [address] Performed By: #### 5 8410-2 ####[facility] LABORATORYCLIA [id number] [address] OF [place] WBC (Bld) [#/Vol] 10.06 10*3/uL Normal 3.70-11.00 [facility] Comment on above: Order Comment: Speci men Type: BLOOD SPECIMENOrdering Facility: [facility] Address: [address] [place] [address] Performed By: #### 5 8410-2 ####[facility] [id number] [place] [address] [facility] THERAPY NTon 07-05-2024 THERAPY NT HNO ID: [id number] Author: AVINASH TORREZ PTA Service: Physical Therapy Author Type: Housing Counselor Type: Therapy (PT/OT/Speech/Resp) Filed: 07/05/2024 08:16 Note Text: Attestation signed by Preeti Sheffield PT at 07/05/2024 5:58 PM I reviewed and agree with the documentation corresponding to this therapy visit. SIGNATURE: Preeti Sheffield, PT DATE: July 05, 2024 TIME: 5:58 PM Physical Therapy Treatment Summary SERVICE DATE: 07/05/2024 SERVICE TIME: 742 to 810 ROOM: [id number] PT 6 Clicks Score: 17 Total Joint Replacement Discharge Readiness: Cleared from Physical Therapy DISCHARGE RECOMMENDATIONS Subacute/SNF Recommended Discharge Disposition Comments: Pt is functioning below her baseline level and would benefit from further skilled therapy to address all functional limitations to allow pt to return to [facility]. Pt is a fall risk. Recommended [...] Shower, Shower Chair, Walker- Wheeled, Rollator, Cane, Conveyancer, Long Handled Sponge, Elevated Toilet Seat PRIOR [...] Muscle Weakness (generalized) TREATMENT INTERVENTIONS Therapeutic Exercise (46119), Therapeutic Activity (94287), Gait Training (34290) Timed Code Treatment (minutes): 28 Skilled Treatment Time (minutes): 28 Therapeutic Exercise (45160) Treatment Minutes: 8 $ Therapeutic Exercise (23656) Billed Units: 0 units Exercise Ankle Pumps (number of reps): x10 B LE Quad Sets (number of reps): x10 B LE Glut Sets (number of reps): x10 B Heel Slides (number of reps): x10 B LE LAQ (number of reps): x10 B LE Hip Abduction (number of reps): x10 B LE Exercise: Reviewed HEP, patient verbalizes understanding Therapeutic Activity (24747) Treatment Minutes: 10 $ Therapeutic Activity (65118) Billed Units: 1 unit Gait Training (00027) Treatment Minutes: 10 $ Gait Training (76135) Billed Units: 1 unit TRAINING AND EDUCATION [...] L svitlana (more content not included)... Normal [facility] Basic metabolic 2000 panelon 07-04-2024 Anion gap [Moles/Vol] 9 mmol/L Normal 8-15 [facility] Comment on above: Order Comment: Speci men Type: BLOOD SPECIMEN [facility] Address: [address] [place] [address] Performed By: #### 2 4321-2, #### [facility] CLIA [id number] [address] [place] [address] [place] Calcium [Mass/Vol] 8.7 mg/dL Normal 8.5-10.2 [facility] Comment on above: Order Comment: Speci men Type: BLOOD SPECIMEN [facility] Address: [address] [place] [address] Performed By: #### 2 4321-2, #### [facility] CLIA [id number] [address] [place] [address] [place] Chloride [Moles/Vol] 101 mmol/L Normal 98-107 [facility] Comment on above: Order Comment: Speci men Type: BLOOD SPECIMEN [facility] Address: [address] [place] [address] Performed By: #### 2 432-2, #### [facility] CLIA [id number] [address] [place] [address] [place] CO2 [Moles/Vol] 27 mmol/L Normal 22-30 [facility] Comment on above: Order Comment: David del real Type: BLOOD SPECIMEN [facility] Address: [address] [place] [address] Performed By: #### 2 4320-2, #### [facility] CLIA [id number] [address] STATES OF [facility] Creatinine [Mass/Vol] 0.89 mg/dL Normal 0.58-0.96 [facility] Comment on above: Order Comment: David del real Type: BLOOD SPECIMEN [facility] Address: [address] [place] [address] Performed By: #### 2 2, #### [facility] CLIA [id number] [address] Creatinine and Glomerular filtration rate.predicted panel (S/P/Bld) 69 mL/min/1.73m??? Normal >=60 [facility] Comment on above: Order Comment: David del real Type: BLOOD SPECIMEN [facility] Address: [address] [place] [address] Result Comment: Jessica mated Glomerular Filtration Rate [...] reflect actual GFR. Performed By: #### 2 4320-2, #### [facility] CLIA [id number] [address] STATES OF [facility] Glucose [Mass/Vol] 131 mg/dL High 74-99 [facility] Comment on above: Order Comment: David del real Type: BLOOD SPECIMEN [facility] Address: [address] [place] [id number] Result Comment: The [place] Diabetes Association (ADA) provides guidance for cutoff [...] Standards of Medical Care in Diabetes 2016, [place] Diabetes Association. Diabetes Care. 2016.39(Suppl 1). Performed By: #### 2 4320-, #### [facility] CLIA [id number] [address] [place] [address] [place] Potassium [Moles/Vol] 4.8 mmol/L Normal 3.7-5.1 [facility] Comment on above: Order Comment: David del real Type: BLOOD SPECIMEN [facility] Address: [address] [place] [address] Performed By: #### 2 4320-04, #### [facility] CLIA [id number] [address] [place] [address] [place] Sodium [Moles/Vol] 137 mmol/L Normal 136-144 [facility] Comment on above: Order Comment: David del real Type: BLOOD SPECIMEN [facility] Address: [address] [place] [address] Performed By: #### 2 4320-04, #### [facility] CLIA [id number] [address] [place] [address] [place] Urea nitrogen [Mass/Vol] 21 mg/dL Normal 7-21 [facility] Comment on above: Order Comment: David del real Type: BLOOD SPECIMEN [facility] Address: [address] [place] [id number] Performed By: #### 2 4320-04, #### [facility] CLIA [id number] [address] CBC panel Auto (Bld)on 07-04 Erythrocyte distribution width (RBC) [Ratio] 13.0 % Normal 11.5-15.0 [facility] Comment on above: Order Comment: Speci men Type: BLOOD SPECIMENOrdering Facility: [facility] Address: [address] [place] [address] Performed By: #### 5 8410-2 ####[facility]ORATORYCLIA [id number] [address] Hematocrit (Bld) [Volume fraction] 29.4 % Low 36.0-46.0 [facility] Comment on above: Order Comment: Speci men Type: BLOOD SPECIMENOrdering Facility: [facility] Address: [address] [place] [address] Performed By: #### 5 8410-2 ####[facility]ORYCLIA [id number] [address] Hemoglobin (Bld) [Mass/Vol] 9.8 g/dL Low 11.5-15.5 [facility] Comment on above: Order Comment: Speci men Type: BLOOD SPECIMENOrdering Facility: [facility] Address: [address] [place] [address] Performed By: #### 5 8410-2 ####[facility]ORATORYCLIA [id number] [address] MCH (RBC) [Entitic mass] 30.2 pg Normal 26.0-34.0 [facility] Comment on above: Order Comment: Speci men Type: BLOOD SPECIMENOrdering Facility: [facility] Address: [address] [place] [address] Performed By: #### 5 8410-2 ####[facility]ORATORYCLIA [id number] [address] MCHC (RBC) [Mass/Vol] 33.3 g/dL Normal 30.5-36.0 [facility] Comment on above: Order Comment: Speci men Type: BLOOD SPECIMENOrdering Facility: [facility] Address: [address] [place] [address] Performed By: #### 5 8410-2 ####[facility]ORATORYCLIA [id number] [address] OF [place] MCV (RBC) [Entitic vol] 90.5 fL Normal 80.0-100.0 M [facility] Comment on above: Order Comment: Speci men Type: BLOOD SPECIMENOrdering Facility: [facility] Address: [address] [place] [address] Performed By: #### 5 8410-2 ####[facility]ORATORYCLIA [id number] [address] OF [place] Nucleated RBC (Bld) [#/Vol] 10*3/uL Normal <0.01 [facility] Comment on above: Order Comment: Speci men Type: BLOOD SPECIMENOrdering Facility: [facility] Address: [address] [place] [address] Performed By: #### 5 8410-2 ####[facility]ORATORYCLIA [id number] [address] OF [place] Platelet mean volume (Bld) [Entitic vol] 10.9 fL Normal 9.0-12.7 [facility] Comment on above: Order Comment: Speci men Type: BLOOD SPECIMENOrdering Facility: [facility] Address: [address] [place] [address] Performed By: #### 5 8410-2 ####[facility] LABORATORYCLIA [id number] [address] OF [place] Platelets (Bld) [#/Vol] 235 10*3/uL Normal 150-400 [facility] Comment on above: Order Comment: Speci men Type: BLOOD SPECIMENOrdering Facility: [facility] Address: [address] [place] [address] Performed By: #### 5 8410-2 ####[facility] LABORATORYCLIA [id number] [address] OF [place] RBC (Bld) [#/Vol] 3.25 10*6/uL Low 3.90-5.20 [facility] Comment on above: Order Comment: Speci men Type: BLOOD SPECIMENOrdering Facility: [facility] Address: [address] [place] [address] Performed By: #### 5 8410-2 ####[facility] LABORATORYCLIA [id number] [place] [id number] [place] [facility] WBC (Bld) [#/Vol] 11.04 10*3/uL High 3.70-11.00 [facility] Comment on above: Order Comment: Speci men Type: BLOOD SPECIMENOrdering Facility: [facility] Address: [address] [place] [address] Performed By: #### 5 8410-2 ####[facility] LABORATORYCLIA [id number] [place] [address] [facility] CNCOon 07-04-2024 CNCO Letter Text Normal [facility] CONSULTon 07-04-2024 CONSULT HNO ID: [id number] Author: TATY GREEN MD Service: Cardiovascular Disease Author Type: Physician Type: Consults Filed: 07/04/2024 10:04 Note Text: Attestation signed by Taty Green MD at 07/04/2024 9:56 AM (Updated) TEACHING [...] DD, RVSP 37, trace MR, 1+ TR,trace MI, mid asc Ao 2.5 O/E: Irregularly irregular [...] Continue to monitor on telemetry Signature: Taty Green Date: 07/04/2024 Time: 9:42 AM Expand All Collapse All [facility] CARDI[facility]ASCULAR MEDICINE CONSULT NOTE (Template ID [id number]) Azalea Mott [id number] PRIMARY SERVICE: Internal Medicine CONSULTING SERVICE: Cardiology [...] on apixaban 5 mg twice a day ([id number] 3 ) and metoprolol 25 mg po [...] FLX DX W/COLLJ SPEC WHEN PFRMD 02/13/2017 DXZ-Sjivp-xofynb 10 years HYSTEROSCOPY BX W/WO DANDC 12/2011 endometrial polyp LAPAROSCOPIC CHOLECYSTECTOMY 09/24/2020 MASTOIDECTOMY,COMPLETE Left 1955 Mastoidectomy, left TONSILLECTOMY PRIMARY/SECONDARY Tonsillectomy FAMILY HISTORY FAMILY HISTORY FAMILY HISTORY Problem Relation Age of Onset Hypertension Mother Asthma Mother Diabetes Mother COPD Mother other (crohns [Other]) Mother Cancer Father NON HODGKINS LYMPHOMA Heart Father CHF Stro (more content not included)... Normal [facility] CONSULT HNO ID: [id number] Author: TATY GEREN MD Service: Cardiovascular Disease Author Type: ? Type: Consults Filed: 07/04/2024 09:56 Note Text: Attestation signed by Taty Green MD at 07/04/2024 9:56 AM (Updated) TEACHING [...] DD, RVSP 37, trace MR, 1+ TR,trace MI, mid asc Ao 2.5 O/E: Irregularly irregular [...] Continue to monitor on telemetry Signature: Taty Green Date: 07/04/2024 Time: 9:42 AM [facility] CARDI[facility]ICINE CONSULT NOTE (Template ID [id number]) [place] Mott [id number] PRIMARY SERVICE: Internal Medicine CONSULTING SERVICE: Cardiology [...] on apixaban 5 mg twice a day ([id number] 3 ) and metoprolol 25 mg po [...] FLX DX W/COLLJ SPEC WHEN PFRMD 02/13/2017 NKX-Qbngy-xnzuzy 10 years HYSTEROSCOPY BX W/WO DANKY 12/2011 endometrial polyp LAPAROSCOPIC CHOLECYSTECTOMY 09/24/2020 MASTOIDECTOMY,COMPLETE Left 89 Mastoidectomy, left TONSILLECTOMY PRIMARY/SECONDARY Tonsillectomy FAMILY HISTORY FAMILY HISTORY Problem Relation Age of Onset Hypertension Mother Asthma Mother Diabetes Mother COPD Mother other (crohns [Other]) Mother (more content not included)... Normal [facility] Magnesium SerPl-mCncon 07-04 Magnesium [Mass/Vol] 2.1 mg/dL Normal 1.7-2.3 [facility] Comment on above: Order Comment: Speci men Type: BLOOD SPECIMEN [facility] Address: [address] [place] [address] Performed By: #### 2 4321-2, 25613-1 #### [facility] CLIA [id number] [address] [place] [address] [place] [facility] THERAPY NTon 07-04-2024 THERAPY NT HNO ID: [id number] Author: ADEBAYO GUZMAN OT/L Service: ? Author Type: Occupational Therapist Type: Therapy (PT/OT/Speech/Resp) Filed: 07/04/2024 14:58 Note Text: Summary: OT Treatment Occupational Therapy Treatment Summary SERVICE DATE: 07/04/2024 SERVICE TIME: 1429 to 1449 ROOM: [place] [address] OT 6 Clicks Score: 15 Total Joint [...] Shower, Shower Chair, Walker- Wheeled, Rollator, Cane, Conveyancer, Long Handled Sponge, Elevated Toilet Seat PRIOR [...] (generalized), Unsteadiness on feet TREATMENT INTERVENTIONS Self Long Term Management (92523) Timed Code Treatment (minutes): 20 Skilled Treatment Time (minutes): 20 TRAINING AND EDUCATION PROVIDED Activity Adaptation/Pouncing Lathe Operator y Strategies, Adaptive Equipment/DME, Bed Mobility, Benefits of In-Hospital Mobility, Cognitive Skills, Command Following, Discharge Planning, Expected Functional Level, Functional Mobility Involving ADLs, Grooming Tasks, Insight into Deficits, Memory/Attention, Positioning, Pain Management, Precautions/Restrictio ns, Role of Occupational Therapy, Safety/Judgment, Sitting Balance to Improve [place] with ADLs/Self-Care, Standing Balance to Improve [place] with ADLs/Self-Care, Transfer - Bed to Chair, [...] Moderate Assistance, Add (more content not included)... [facility] THERAPY NT HNO ID: [id number] Author: DAYANA ZIMMER PTA Service: Physical Therapy Author Type: Housing Counselor Type: Therapy (PT/OT/Speech/Resp) Filed: 07/04/2024 10:55 Note Text: Attestation signed by Preeti Sheffield PT at 07/05/2024 5:59 PM I reviewed and agree with the documentation corresponding to this therapy visit. SIGNATURE: Preeti Sheffield PT DATE: July 05, 2024 TIME: 5:59 PM Summary: PT Treat Physical Therapy Treatment Summary SERVICE DATE: 07/04/2024 SERVICE TIME: 1008 to 1034 ROOM: [id number]- PT 6 Clicks Score: 15 DISCHARGE RECOMMENDATIONS Subacute/SNF Recommended Discharge Disposition Comments: Pt is functioning below her baseline level and would benefit from further skilled therapy to address all functional limitations to allow pt to return to [facility]. Pt is a fall risk. Recommended [...] Shower, Shower Chair, Walker- Wheeled, Rollator, Cane, Conveyancer, Long Handled Sponge, Elevated Toilet Seat PRIOR [...] Muscle Weakness (generalized) TREATMENT INTERVENTIONS Therapeutic Activity (52387), Gait Training (91916) Timed Code Treatment (minutes): 26 Skilled Treatment Time (minutes): 26 Therapeutic Activity (85617) Treatment Minutes: 20 $ Therapeutic Activity (91965) Billed Units: 2 units Gait Training (58152) Treatment Minutes: 6 $ Gait Training (28613) Billed Units: 0 units TRAINING AND EDUCATION [...] towards EOB with SBA. pt used leg property supervisor to RLE to assist with transfer. CGA [...] cues fo (more content not included)... Normal [facility] CBC panel Auto (Bld)on 07-03 Erythrocyte distribution width (RBC) [Ratio] 12.8 % Normal 11.5-15.0 [facility] Comment on above: Order Comment: Speci men Type: BLOOD SPECIMENOrdering Facility: [facility] Address: [address] [place] [address] Performed By: #### 5 8410-2 ####[facility] LABORATORYCLIA [id number] [place] [address] [place] Hematocrit (Bld) [Volume fraction] 28.9 % Low 36.0-46.0 [facility] Comment on above: Order Comment: Speci men Type: BLOOD SPECIMENOrdering Facility: [facility] Address: [address] [place] [address] Performed By: #### 5 8410-2 ####[facility]ORATORYCLIA [id number] [place] [address] [place] Hemoglobin (Bld) [Mass/Vol] 9.8 g/dL Low 11.5-15.5 [facility] Comment on above: Order Comment: Speci men Type: BLOOD SPECIMENOrdering Facility: [facility] Address: [address] [place] [address] Performed By: #### 5 8410-2 ####[facility] LABORATORYCLIA [id number] [address] [place] OF [place] MCH (RBC) [Entitic mass] 30.4 pg Normal 26.0-34.0 [facility] Comment on above: Order Comment: Speci men Type: BLOOD SPECIMENOrdering Facility: [facility] Address: [address] [place] [address] Performed By: #### 5 8410-2 ####[facility] LABORATORYCLIA [id number] [address] MCHC (RBC) [Mass/Vol] 33.9 g/dL Normal 30.5-36.0 [facility] Comment on above: Order Comment: Speci men Type: BLOOD SPECIMENOrdering Facility: [facility] Address: [address] [place] [address] Performed By: #### 5 8410-2 ####[facility] LABORATORYCLIA [id number] [address] MCV (RBC) [Entitic vol] 89.8 fL Normal 80.0-100.0 M [facility] Comment on above: Order Comment: Speci men Type: BLOOD SPECIMENOrdering Facility: [facility] Address: [address] [place] [address] Performed By: #### 5 8410-2 ####[facility] LABORATORYCLIA [id number] [address] Nucleated RBC (Bld) [#/Vol] 10*3/uL Normal <0.01 [facility] Comment on above: Order Comment: Speci men Type: BLOOD SPECIMENOrdering Facility: [facility] Address: [address] [place] [address] Performed By: #### 5 8410-2 ####[facility] LABORATORYCLIA [id number] [address] Platelet mean volume (Bld) [Entitic vol] 11.0 fL Normal 9.0-12.7 [facility] Comment on above: Order Comment: Speci men Type: BLOOD SPECIMENOrdering Facility: [facility] Address: [address] [place] [address] Performed By: #### 5 8410-2 ####[facility] LABORATORYCLIA [id number] [address] [place] Platelets (Bld) [#/Vol] 197 10*3/uL Normal 150-400 [facility] Comment on above: Order Comment: Speci men Type: BLOOD SPECIMENOrdering Facility: [facility] Address: [address] [place] [address] Performed By: #### 5 8410-2 ####[facility] LABORATORYCLIA [id number] [address] OF [facility] RBC (Bld) [#/Vol] 3.22 10*6/uL Low 3.90-5.20 [facility] Comment on above: Order Comment: Speci men Type: BLOOD SPECIMENOrdering Facility: [facility] Address: [address] [place] [address] Performed By: #### 5 8410-2 ####[facility]ORATORYCLIA [id number] [address] OF [facility] WBC (Bld) [#/Vol] 15.14 10*3/uL High 3.70-11.00 [facility] Comment on above: Order Comment: Speci men Type: BLOOD SPECIMENOrdering Facility: [facility] Address: [address] [place] [address] Performed By: #### 5 8410-2 ####[facility]ORATORYCLIA [id number] [address] THERAPY NTon 07-03-2024 THERAPY NT HNO ID: [id number] Author: YAMILKA FARRELL PT Service: Physical Therapy Author Type: Physical Therapist Type: Therapy (PT/OT/Speech/Resp) Filed: 07/03/2024 16:57 Note Text: Physical Therapy Treatment Summary SERVICE DATE: 07/03/2024 SERVICE TIME: 1545 to 1625 ROOM: [place] [address] PT 6 Clicks Score: 14 Total Joint Replacement Discharge Readiness: Cleared from Physical Therapy DISCHARGE RECOMMENDATIONS Subacute/SNF Recommended Discharge Disposition Comments: Pt is functioning below her baseline level and would benefit from further skilled therapy to address all functional limitations to allow pt to return to [facility]. Pt is a fall risk. Recommended Discharge [...] Shower, Shower Chair, Walker- Wheeled, Rollator, Cane, Conveyancer, Long Handled Sponge, Elevated Toilet Seat PRIOR [...] DIAGNOSIS Reduced mobility-other TREATMENT INTERVENTIONS Therapeutic Exercise (76071), Therapeutic Activity (45725), Gait Training (10890) Timed Code Treatment (minutes): 40 Skilled Treatment [...] upright postu (more content not included)... Normal [facility] Basic metabolic 2000 panelon 07-02-2024 Anion gap [Moles/Vol] 8 mmol/L Normal 8-15 [facility] Comment on above: Order Comment: Speci men Type: BLOOD SPECIMENOrdering Facility: [facility] Address: [address] [place] [address] Performed By: #### 2 4321-2, ####[facility] LABORATORYCLIA [id number] [place] [address] [place] Calcium [Mass/Vol] 8.9 mg/dL Normal 8.5-10.2 [facility] Comment on above: Order Comment: Speci men Type: BLOOD SPECIMENOrdering Facility: [facility] Address: [address] [place] [address] Performed By: #### 2 4321-2, ####[facility] LABORATORYCLIA [id number] [place] [id number] [place] Chloride [Moles/Vol] 106 mmol/L Normal 98-107 [facility] Comment on above: Order Comment: Speci men Type: BLOOD SPECIMENOrdering Facility: [facility] Address: [address] [place] [address] Performed By: #### 2 432-2, ####[facility] LABORATORYCLIA [id number] [place] [id number] [place] CO2 [Moles/Vol] 26 mmol/L Normal 22-30 [facility] Comment on above: Order Comment: Speci men Type: BLOOD SPECIMENOrdering Facility: [facility] Address: [address] [place] [address] Performed By: #### 2 4322, ####[facility] LABORATORYCLIA [id number] [place] [address] [place] Creatinine [Mass/Vol] 1.06 mg/dL High 0.58-0.96 [facility] Comment on above: Order Comment: Speci men Type: BLOOD SPECIMENOrdering Facility: [facility] Address: [address] [place] [address] Performed By: #### 2 4320-04, ####[facility] LABORATORYCLIA [id number] [place] [address] [place] Creatinine and Glomerular filtration rate.predicted panel (S/P/Bld) 56 mL/min/1.73m??? Low >=60 [facility] Comment on above: Order Comment: Speci men Type: BLOOD SPECIMENOrdering Facility: [facility] Address: [address] [place] [address] Result Comment: Jessica mated Glomerular Filtration Rate [...] Performed By: #### 2 4321-2, ####[facility] LABORATORYCLIA [id number] [place] [address] [place] Glucose [Mass/Vol] 119 mg/dL High 74-99 [facility] Comment on above: Order Comment: Speci men Type: BLOOD SPECIMENOrdering Facility: [facility] Address: [address] [place], [place] [address] Result Comment: The [place] Diabetes Association (ADA) provides guidance for cutoff [...] Standards of Medical Care in Diabetes 2016, [place] Diabetes Association. Diabetes Care. 2016.39(Suppl 1). Performed By: #### 2 4321-2, ####[facility] LABORATORYCLIA [id number] [place] [address] [place] Potassium [Moles/Vol] 4.5 mmol/L Normal 3.7-5.1 [facility] Comment on above: Order Comment: David del real Type: BLOOD SPECIMENOrdering Facility: [facility] Address: [address] [place], [place] [address] Performed By: #### 2 4320-04, ####[facility] LABORATORYCLIA [id number] [place] [address] [place] Sodium [Moles/Vol] 140 mmol/L Normal 136-144 [facility] Comment on above: Order Comment: David del real Type: BLOOD SPECIMENOrdering Facility: [facility] Address: [address] [place] [address] Performed By: #### 2 2, ####[facility] LABORATORYCLIA [id number] [place] [id number] [place] Urea nitrogen [Mass/Vol] 21 mg/dL Normal 7-21 [facility] Comment on above: Order Comment: David del real Type: BLOOD SPECIMENOrdering Facility: [facility] Address: [address] [place] [address] Performed By: #### 2 4321-2, 11135-1 ####[facility] LABORATORYCLIA [id number] [place] [address] [place] Anion gap [Moles/Vol] 12 mmol/L Normal 8-15 [facility] Comment on above: Order Comment: Speci men Type: BLOOD SPECIMENOrdering Facility: [facility] Address: [address] [place] [address] Performed By: #### 2 4321-2 ####[facility] LABORATORYCLIA [id number] [place] [address] [place] Calcium [Mass/Vol] 8.9 mg/dL Normal 8.5-10.2 [facility] Comment on above: Order Comment: Speci men Type: BLOOD SPECIMENOrdering Facility: [facility] Address: [address] [place] [address] Performed By: #### 2 4321-2 ####[facility] LABORATORYCLIA [id number] [place] [address] [place] Chloride [Moles/Vol] 106 mmol/L Normal 98-107 [facility] Comment on above: Order Comment: Speci men Type: BLOOD SPECIMENOrdering Facility: [facility] Address: [address] [place] [address] Performed By: #### 2 4321-2 ####[facility] LABORATORYCLIA [id number] [place] [address] [place] CO2 [Moles/Vol] 19 mmol/L Low 22-30 [facility] Comment on above: Order Comment: Speci men Type: BLOOD SPECIMENOrdering Facility: [facility] Address: [address] [place], [place] [address] Performed By: #### 2 4321-2 ####[facility] LABORATORYCLIA [id number] [place] [address] [place] Creatinine [Mass/Vol] 1.04 mg/dL High 0.58-0.96 [facility] Comment on above: Order Comment: Speci men Type: BLOOD SPECIMENOrdering Facility: [facility] Address: [address] [place] [address] Performed By: #### 2 4321-2 ####[facility]ORATORYCLIA [id number] [place] [address] [place] Creatinine and Glomerular filtration rate.predicted panel (S/P/Bld) 57 mL/min/1.73m??? Low >=60 [facility] Comment on above: Order Comment: David del real Type: BLOOD SPECIMENOrdering Facility: [facility] Address: [address] [place] [address] Result Comment: Jessica mated Glomerular Filtration Rate [...] actual GFR. Performed By: #### 2 4321-2 ####[facility]ORATORYCLIA [id number] [place] [id number] [place] Glucose [Mass/Vol] 126 mg/dL High 74-99 [facility] Comment on above: Order Comment: David del real Type: BLOOD SPECIMENOrdering Facility: [facility] Address: [address] [place] [address] Result Comment: The [place] Diabetes Association (ADA) provides guidance for cutoff [...] Standards of Medical Care in Diabetes 2016, [place] Diabetes Association. Diabetes Care. 2016.39(Suppl 1). Performed By: #### 2 4321-2 ####[facility]ORATORYCLIA [id number] [place] [address] [place] Potassium [Moles/Vol] 4.5 mmol/L Normal 3.7-5.1 [facility] Comment on above: Order Comment: Speci men Type: BLOOD SPECIMENOrdering Facility: [facility] Address: [address] [place] [address] Performed By: #### 2 4321-2 ####[facility] LABORATORYCLIA [id number] [address] STATES [facility] Sodium [Moles/Vol] 137 mmol/L Normal 136-144 [facility] Comment on above: Order Comment: Speci men Type: BLOOD SPECIMENOrdering Facility: [facility] Address: [address] [place] [address] Performed By: #### 2 4321-2 ####[facility] LABORATORYCLIA [id number] [place] [address] [place] Urea nitrogen [Mass/Vol] 22 mg/dL High 7-21 [facility] Comment on above: Order Comment: Speci men Type: BLOOD SPECIMENOrdering Facility: [facility] Address: [address] [place] [address] Performed By: #### 2 4321-2 ####[facility] LABORATORYCLIA [id number] [address] [place] CBC panel Auto (Bld)on 07-02 Erythrocyte distribution width (RBC) [Ratio] 12.9 % Normal 11.5-15.0 [facility] Comment on above: Order Comment: Speci men Type: BLOOD SPECIMENOrdering Facility: [facility] Address: [address] [place] [address] Performed By: #### 5 8410-2 ####[facility] LABORATORYCLIA [id number] [address] STATES [facility] Hematocrit (Bld) [Volume fraction] 30.4 % Low 36.0-46.0 [facility] Comment on above: Order Comment: Speci men Type: BLOOD SPECIMENOrdering Facility: [facility] Address: [address] [place] [address] Performed By: #### 5 8410-2 ####[facility] LABORATORYCLIA [id number] [address] [place] Hemoglobin (Bld) [Mass/Vol] 10.0 g/dL Low 11.5-15.5 [facility] Comment on above: Order Comment: Speci men Type: BLOOD SPECIMENOrdering Facility: [facility] Address: [address] [place] [address] Performed By: #### 5 8410-2 ####[facility] LABORATORYCLIA [id number] [address] [place] MCH (RBC) [Entitic mass] 30.4 pg Normal 26.0-34.0 [facility] Comment on above: Order Comment: Speci men Type: BLOOD SPECIMENOrdering Facility: [facility] Address: [address] [place] [address] Performed By: #### 5 8410-2 ####[facility] LABORATORYCLIA [id number] [address] [place] MCHC (RBC) [Mass/Vol] 32.9 g/dL Normal 30.5-36.0 [facility] Comment on above: Order Comment: Speci men Type: BLOOD SPECIMENOrdering Facility: [facility] Address: [address] [place] [address] Performed By: #### 5 8410-2 ####[facility] LABORATORYCLIA [id number] [address] [place] MCV (RBC) [Entitic vol] 92.4 fL Normal 80.0-100.0 M [facility] Comment on above: Order Comment: Speci men Type: BLOOD SPECIMENOrdering Facility: [facility] Address: [address] [place] [address] Performed By: #### 5 8410-2 ####[facility] LABORATORYCLIA [id number] [address] OF [place] Nucleated RBC (Bld) [#/Vol] 10*3/uL Normal <0.01 [facility] Comment on above: Order Comment: Speci men Type: BLOOD SPECIMENOrdering Facility: [facility] Address: [address] [place] [address] Performed By: #### 5 8410-2 ####[facility] LABORATORYCLIA [id number] [address] OF [place] Platelet mean volume (Bld) [Entitic vol] 10.8 fL Normal 9.0-12.7 [facility] Comment on above: Order Comment: Speci men Type: BLOOD SPECIMENOrdering Facility: [facility] Address: [address] [place] [address] Performed By: #### 5 8410-2 ####[facility]ORATORYCLIA [id number] [place] [address] [place] Platelets (Bld) [#/Vol] 185 10*3/uL Normal 150-400 [facility] Comment on above: Order Comment: Speci men Type: BLOOD SPECIMENOrdering Facility: [facility] Address: [address] [place] [address] Performed By: #### 5 8410-2 ####[facility]ORATORYCLIA [id number] [address] [place] RBC (Bld) [#/Vol] 3.29 10*6/uL Low 3.90-5.20 [facility] Comment on above: Order Comment: Speci men Type: BLOOD SPECIMENOrdering Facility: [facility] Address: [address] [place] [address] Performed By: #### 5 8410-2 ####[facility]ORATORYCLIA [id number] [address] OF [place] WBC (Bld) [#/Vol] 15.44 10*3/uL High 3.70-11.00 [facility] Comment on above: Order Comment: Speci men Type: BLOOD SPECIMENOrdering Facility: [facility] Address: [address] [place] [address] Performed By: #### 5 8410-2 ####[facility] LABORATORYCLIA [id number] [address] EKGon 07-02-2024 Electrocardiogram Ventricular Rate : 1 66 BPM Atrial Rate : 340 BPM QRS Duration : 106 ms Q-T Interval : 276 ms QTC Calculation(Bazett) : 458 ms Calculated R [place] : -29 degrees Calculated T [place] : 34 degrees ATRIAL FLUTTER PREMATURE VENTRICULAR COMPLEXES INCOMPLETE RIGHT BUNDLE BRANCH BLOCK NONSPECIFIC ST ABNORMALITY ABNORMAL ECG Confirmed by TATY GREEN MD ([id number]) on 07/05/2024 4:46:52 PM NAME : AZAELA MOTT PID : [id number] : 1950 Gender : Female Race : ORD : Procedure Date : Jul 02 2024 14:15:13 Edit Date : Jul 05 2024 16:46:58 Diagnosis: ATRIAL FLUTTER PREMATURE VENTRICULAR COMPLEXES INCOMPLETE RIGHT BUNDLE BRANCH BLOCK NONSPECIFIC ST ABNORMALITY ABNORMAL ECG Confirmed by TATY GREEN MD ([id number]) on 07/05/2024 4:46:52 PM Test Reason : Location : 3 : 0262 Overread By : TATY GREEN MD Edited By : TATY GREEN MD Referred By : , Acquired by : [facility] EMERon 07-02-2024 [facility] HNO ID: [id number] Author: PREETI LAZO APRN.CIRCLE BEVELER Service: Critical Care Author Type: Nurse Practitioner Type: Chg in Clinical Condition Filed: 07/02/2024 14:57 Note Text: EMERGENCY RESPONSE TEAM Rapid Response Date of MET Page: July 02, 2024 Time of MET Page: 4707 Requesting Provider: Bedside RN SUMMARY DIAGNOSIS, ASSESSMENT and RECOMMENDATIONS 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 Spoke with primary team, Dr. Trivedi who stated to order 5mg IVP metoprolol [...] on current unit under care of: Dr. Bergeron with Dr. Trivedi for medical management. History of Present Illness: [...] FLX DX W/COLLJ SPEC WHEN PFRMD 02/13/2017 UDF-Nzbvi-jsnbex 10 years HYSTEROSCOPY BX W/WO DANDC 12/2011 [...] mouth once daily., Disp: 30 tablet, Rfl: 11, 06/30/2024 Morning hydroCHLOROthiazide 25 mg tablet, Take [...] , Rfl: , (more content not included)... [facility] Magnesium [Mass/Vol] 2.4 mg/dL High 1.7-2.3 [facility] Comment on above: Order Comment: David del real Type: BLOOD SPECIMENOrdering Facility: [facility] Address: [address] [place] [address] Performed By: #### 2 4321-2, 60621-1 ####[facility]ORYCLIA [id number] [address] THERAPY NTon 07-02-2024 THERAPY NT HNO ID: [id number] Author: AVINASH TORREZ PTA Service: Physical Therapy Author Type: Housing Counselor Type: Therapy (PT/OT/Speech/Resp) Filed: 07/02/2024 11:15 Note Text: Attestation signed by Doyle Marsh, PT at 07/02/2024 3:53 PM I reviewed and agree with the documentation corresponding to this therapy visit. SIGNATURE: DOYLE MARSH, PT DATE: July 02, 2024 TIME: 3:53 PM Physical Therapy Treatment Summary SERVICE DATE: 07/02/2024 SERVICE TIME: 1035 to 1106 ROOM: [id number]- PT 6 Clicks Score: 18 Total Joint [...] Shower, Shower Chair, Walker- Wheeled, Rollator, Cane, Conveyancer, Long Handled Sponge, Elevated Toilet Seat PRIOR [...] DIAGNOSIS Reduced mobility-other TREATMENT INTERVENTIONS Therapeutic Activity (59856), Gait Training (90457) Timed Code Treatment (minutes): 25 Skilled Treatment Time (minutes): 25 Therapeutic Activity (96626) Treatment Minutes: 15 $ Therapeutic Activity (24623) Billed Units: 1 unit Gait Training (81940) Treatment Minutes: 10 $ Gait Training (78628) Billed Units: 1 unit TRAINING AND EDUCATION [...] needs identifie (more content not included)... Normal [facility] Basic metabolic 2000 panelon 07-01-2024 Anion gap [Moles/Vol] 8 mmol/L Normal 8-15 [facility] Comment on above: Order Comment: Speci men Type: BLOOD SPECIMENOrdering Facility: [facility] Address: [address] [place] [address] Performed By: #### 2 4321-2 ####[facility]IA [id number] [place] [address] [place] Calcium [Mass/Vol] 8.5 mg/dL Normal 8.5-10.2 [facility] Comment on above: Order Comment: Speci men Type: BLOOD SPECIMENOrdering Facility: [facility] Address: [address] [id number] Performed By: #### 2 4321-2 ####[facility]ORY[facility] [id number] [place] [address] [place] Chloride [Moles/Vol] 103 mmol/L Normal 98-107 [facility] Comment on above: Order Comment: Speci men Type: BLOOD SPECIMENOrdering Facility: [facility] Address: [address] [place] [address] Performed By: #### 2 4321-2 ####[facility] [id number] [place] [id number] [place] [facility] CO2 [Moles/Vol] 25 mmol/L Normal 22-30 [facility] Comment on above: Order Comment: David del real Type: BLOOD SPECIMENOrdering Facility: [facility] Address: [address] [place] [address] Performed By: #### 2 4321-2 ####[facility]IA [id number] [address] Creatinine [Mass/Vol] 1.29 mg/dL High 0.58-0.96 [facility] Comment on above: Order Comment: David del real Type: BLOOD SPECIMENOrdering Facility: [facility] Address: [address] [place] [address] Performed By: #### 2 4321-2 ####[facility] [id number] [address] Creatinine and Glomerular filtration rate.predicted panel (S/P/Bld) 44 mL/min/1.73m??? Low >=60 [facility] Comment on above: Order Comment: David del real Type: BLOOD SPECIMENOrdering Facility: [facility] Address: [address] [place] [address] Result Comment: Jessica mated Glomerular Filtration Rate [...] Performed By: #### 2 4321-2 ####[facility]ORY[facility]IA [id number] [place] [id number] [place] [facility] Glucose [Mass/Vol] 133 mg/dL High 74-99 [facility] Comment on above: Order Comment: David del real Type: BLOOD SPECIMENOrdering Facility: [facility] Address: [address] [place] [address] Result Comment: The [place] Diabetes Association (ADA) provides guidance for cutoff [...] Standards of Medical Care in Diabetes 2016, [place] Diabetes Association. Diabetes Care. 2016.39(Suppl 1). Performed By: #### 2 4321-2 ####[facility]IA [id number] [place] [address] [place] Potassium [Moles/Vol] 4.5 mmol/L Normal 3.7-5.1 [facility] Comment on above: Order Comment: David del real Type: BLOOD SPECIMENOrdering Facility: [facility] Address: [address] [place] [address] Performed By: #### 2 4321-2 ####[facility]ORYCLIA [id number] [place] [address] [place] Sodium [Moles/Vol] 136 mmol/L Normal 136-144 [facility] Comment on above: Order Comment: David del real Type: BLOOD SPECIMENOrdering Facility: [facility] Address: [address] [place] [address] Performed By: #### 2 4321-2 ####[facility]ORYCLIA [id number] [place] [address] [place] Urea nitrogen [Mass/Vol] 31 mg/dL High 7-21 [facility] Comment on above: Order Comment: David del real Type: BLOOD SPECIMENOrdering Facility: [facility] Address: [address] [place] [address] Performed By: #### 2 4321-2 ####[facility]ORYCLIA [id number] [place] [address] [place] Anion gap [Moles/Vol] 7 mmol/L Low 8-15 [facility] Comment on above: Order Comment: Speci men Type: BLOOD SPECIMENOrdering Facility: [facility] Address: [address] [place] [address] Performed By: #### 2 4321-2 ####[facility]ORYCLIA [id number] [place] [address] [place] Calcium [Mass/Vol] 8.8 mg/dL Normal 8.5-10.2 [facility] Comment on above: Order Comment: Speci men Type: BLOOD SPECIMENOrdering Facility: [facility] Address: [address] [place] [address] Performed By: #### 2 4321-2 ####[facility]ORYCLIA [id number] [place] [address] [place] Chloride [Moles/Vol] 102 mmol/L Normal 98-107 [facility] Comment on above: Order Comment: Speci men Type: BLOOD SPECIMENOrdering Facility: [facility] Address: [address] [place] [address] Performed By: #### 2 4321-2 ####[facility]ORYCLIA [id number] [place] [address] [place] CO2 [Moles/Vol] 26 mmol/L Normal 22-30 [facility] Comment on above: Order Comment: Speci men Type: BLOOD SPECIMENOrdering Facility: [facility] Address: [address] [place] [address] Performed By: #### 2 4321-2 ####[facility]ORYCLIA [id number] [place] [address] [place] Creatinine [Mass/Vol] 1.39 mg/dL High 0.58-0.96 [facility] Comment on above: Order Comment: Speci men Type: BLOOD SPECIMENOrdering Facility: [facility] Address: [address] [place] [address] Performed By: #### 2 4321-2 ####[facility]ATORYCLIA [id number] [place] [address] [place] Creatinine and Glomerular filtration rate.predicted panel (S/P/Bld) 40 mL/min/1.73m??? Low >=60 [facility] Comment on above: Order Comment: David del real Type: BLOOD SPECIMENOrdering Facility: [facility] Address: [address] [place] [address] Result Comment: Jessica mated Glomerular Filtration Rate [...] actual GFR. Performed By: #### 2 4321-2 ####[facility]ORYCLIA [id number] [place] [address] [place] Glucose [Mass/Vol] 143 mg/dL High 74-99 [facility] Comment on above: Order Comment: David del real Type: BLOOD SPECIMENOrdering Facility: [facility] Address: [address] [place] [address] Result Comment: The [place] Diabetes Association (ADA) provides guidance for cutoff [...] Standards of Medical Care in Diabetes 2016, [place] Diabetes Association. Diabetes Care. 2016.39(Suppl 1). Performed By: #### 2 4321-2 ####[facility]ATORYCLIA [id number] [place] [address] [place] Potassium [Moles/Vol] 4.7 mmol/L Normal 3.7-5.1 [facility] Comment on above: Order Comment: David del real Type: BLOOD SPECIMENOrdering Facility: [facility] Address: [address] [address] Performed By: #### 2 4321-2 ####[facility]ORYCLIA [id number] [address] [place] Sodium [Moles/Vol] 135 mmol/L Low 136-144 [facility] Comment on above: Order Comment: Speci men Type: BLOOD SPECIMENOrdering Facility: [facility] Address: [address] [place] [address] Performed By: #### 2 4321-2 ####[facility]ORYCLIA [id number] [place] [address] [place] Urea nitrogen [Mass/Vol] 29 mg/dL High 7-21 [facility] Comment on above: Order Comment: Speci men Type: BLOOD SPECIMENOrdering Facility: [facility] Address: [address] [place] [address] Performed By: #### 2 4321-2 ####[facility]ORYCLIA [id number] [address] [place] CBC panel Auto (Bld)on 07-01 Erythrocyte distribution width (RBC) [Ratio] 12.9 % Normal 11.5-15.0 [facility] Comment on above: Order Comment: Speci men Type: BLOOD SPECIMEN [facility] Address: [address] [place] [address] Performed By: #### 5 8410-2 #### [facility] CLIA [id number] [address] OF [place] Hematocrit (Bld) [Volume fraction] 29.9 % Low 36.0-46.0 [facility] Comment on above: Order Comment: Speci men Type: BLOOD SPECIMEN [facility] Address: [address] [place] [address] Performed By: #### 5 8410-2 #### [facility] CLIA [id number] [address] [place] Hemoglobin (Bld) [Mass/Vol] 9.9 g/dL Low 11.5-15.5 [facility] Comment on above: Order Comment: Speci men Type: BLOOD SPECIMEN [facility] Address: [address] [place] [address] Performed By: #### 5 8410-2 #### [facility] CLIA [id number] [address] MCH (RBC) [Entitic mass] 30.1 pg Normal 26.0-34.0 [facility] Comment on above: Order Comment: Speci men Type: BLOOD SPECIMEN [facility] Address: [address] [place] [address] Performed By: #### 5 8410-2 #### [facility] CLIA [id number] [address] [place] MCHC (RBC) [Mass/Vol] 33.1 g/dL Normal 30.5-36.0 [facility] Comment on above: Order Comment: Speci men Type: BLOOD SPECIMEN [facility] Address: [address] [place] [address] Performed By: #### 5 8410-2 #### [facility] CLIA [id number] [address] MCV (RBC) [Entitic vol] 90.9 fL Normal 80.0-100.0 [facility] Comment on above: Order Comment: Speci men Type: BLOOD SPECIMEN [facility] Address: [address] [place] [address] Performed By: #### 5 8410-2 #### [facility] CLIA [id number] [address] Nucleated RBC (Bld) [#/Vol] 10*3/uL Normal <0.01 [facility] Comment on above: Order Comment: Speci men Type: BLOOD SPECIMEN [facility] Address: [address] [place] [address] Performed By: #### 5 8410-2 #### [facility] CLIA [id number] [address] Platelet mean volume (Bld) [Entitic vol] 11.2 fL Normal 9.0-12.7 [facility] Comment on above: Order Comment: Speci men Type: BLOOD SPECIMEN [facility] Address: [address] [place], [place] [address] Performed By: #### 5 8410-2 #### [facility] CLIA [id number] [address] Platelets (Bld) [#/Vol] 190 10*3/uL Normal 150-400 [facility] Comment on above: Order Comment: Speci men Type: BLOOD SPECIMEN [facility] Address: [address] [place] [address] Performed By: #### 5 8410-2 #### [facility] CLIA [id number] [address] OF [facility] RBC (Bld) [#/Vol] 3.29 10*6/uL Low 3.90-5.20 [facility] Comment on above: Order Comment: Speci men Type: BLOOD SPECIMEN [facility] Address: [address] [place] [address] Performed By: #### 5 8410-2 #### [facility] CLIA [id number] [address] OF [facility] WBC (Bld) [#/Vol] 13.62 10*3/uL High 3.70-11.00 [facility] Comment on above: Order Comment: Speci men Type: BLOOD SPECIMEN [facility] Address: [address] [place] [address] Performed By: #### 5 8410-2 #### [facility] CLIA [id number] [address] OF [facility] CNPNon 07-01-2024 CNPN Telephone (HCSIND) AZALEA MOTT ([id number]) 1950 F Date Time Provider Department 07/01/24 BHASKAR CHRISTIANSEN During your visit today, we recorded the following information about you: Bhaskar Christiansen PSS 07/01/2024 10:05 AM Signed Date/Time: 07/01/2024 10:00 AM Spoke with Uli (spouse) @ phone #: [phone] - Preferred # for contact: [phone] Uli (spouse) Have you received help from a home care company in the last 60 days? No Are you agreeable to [facility] services? Yes What address will we be seeing you at? [address] [facility] [address] Do you have any upcoming appointments or [...] 11/21/2011 03/28/2016 Thickened endometrium [R93.89] 12/05/2011 03/28/2016 [place] of foot [L84] 08/17/2013 03/28/2016 Primary osteoarthritis [...] arthroplasty [Z96.641] 07/01/2024 Encounter Status:Closed by BHASKAR CHRISTIANSEN on 07/04/24 Normal [facility] ECG COMPLETEon 07-01-2024 ECG COMPLETE Ventricular Rate : 1 45 BPM Atrial Rate : 330 BPM QRS Duration : 104 ms Q-T Interval : 290 ms QTC Calculation(Bazett) : 450 ms Calculated R [place] : -25 degrees Calculated T [place] : 13 degrees ATRIAL FIBRILLATION WITH RAPID VENTRICULAR RESPONSE INCOMPLETE RIGHT BUNDLE BRANCH BLOCK NONSPECIFIC ST AND T WAVE ABNORMALITY ABNORMAL ECG WHEN COMPARED WITH ECG OF 07-Jun-2024 13:08, NO SIGNIFICANT CHANGE WAS FOUND Confirmed by MEENA CONCEPCION MD ([id number]) on 07/01/2024 2:43:08 PM NAME : AZALEA MOTT PID : [id number] : 1950 Gender : Female Race : ORD : [id number] Procedure Date : Jul 01 2024 14:09:47 Edit Date : Jul 01 2024 14:43:09 Diagnosis: ATRIAL FIBRILLATION WITH RAPID VENTRICULAR RESPONSE INCOMPLETE RIGHT BUNDLE BRANCH BLOCK NONSPECIFIC ST AND T WAVE ABNORMALITY ABNORMAL ECG WHEN COMPARED WITH ECG OF 07-Jun-2024 13:08, NO SIGNIFICANT CHANGE WAS FOUND Confirmed by MEENA CONCEPCION MD ([id number]) on 07/01/2024 2:43:08 PM Test Reason : Arrhythmia Location : 22 : 2E 0273 Overread By : MEENA CONCEPCION MD Edited By : MEENA CONCEPCION MD Referred By : , Acquired by : [id number], Normal [facility] Magnesium SerPl-mCncon 07-01 Magnesium [Mass/Vol] 1.7 mg/dL Normal 1.7-2.3 [facility] Comment on above: [facility]: [facility] Type: BLOOD SPECIMENOrdering Facility: [facility] Address: [address] [place] [address] Performed By: #### K 1, 98210-5, ####[facility]ORYCLIA [id number] [place] [id number] [facility] NT-proBNP [facility]-ncon 07-01 Natriuretic peptide.B prohormone N-Terminal [Mass/Vol] 1927 pg/mL High <125 [facility] Comment on above: Order Comment: [facility] Type: BLOOD SPECIMENOrdering Facility: [facility] Address: [address] [place] [address] Performed By: #### K 1, 30740-7, ####[facility]ORYCLIA [id number] [address] OF [place] NURSING PROGon 07-01-2024 NURSING PROG HNO ID: [id number] Author: RICKY TIRADO, RN Service: ? Author Type: Registered Nurse Type: Nursing Progress Note Filed: 07/01/2024 16:07 Note Text: Pt in Afib/RVR. Dr. Trivedi at the bedside. Patient was placed on tele and given 5 mg IV lopressor and 50 mg PO metoprolol. Pt complains of hip pain, prn meds given. Otherwise, no other complaints. Report given to oncoming nurse. Normal [facility] POTASSIUMon 07-01-2024 Potassium [Moles/Vol] 4.4 mmol/L Normal 3.7-5.1 [facility] Comment on above: Order Comment: Speci [facility] Type: BLOOD SPECIMENOrdering Facility: [facility] Address: [address] [place], [place] [address] Performed By: #### K 1, 08001-2, ####[facility] [id number] [place] [address] [facility] THERAPY NTon 07-01-2024 THERAPY NT HNO ID: [id number] Author: YAMILKA PURCELL, PT, DPT Service: Physical Therapy Author Type: Physical Therapist Type: Therapy (PT/OT/Speech/Resp) Filed: 07/01/2024 13:52 Note Text: Summary: PT tx Physical Therapy Treatment Summary SERVICE DATE: 07/01/2024 SERVICE TIME: 1238 to 1335 ROOM: [id number] PT 6 Clicks Score: 18 Total Joint [...] Shower, Shower Chair, Walker- Wheeled, Rollator, Cane, Conveyancer, Long Handled Sponge, Elevated Toilet Seat PRIOR FUNCTIONAL LEVEL Within Functional Limits, Required Assistance Assistance Required With: Transportation Indep w/o AD, assist to don socks, drives, shops, does cooking and cleaning. Spouse and she do laundry. Manages own meds. No falls in last 6 mos, sleeps in flat bed. SUBJECTIVE Pt agrees to PT. THERAPY DIAGNOSIS Reduced mobility-other TREATMENT INTERVENTIONS Therapeutic Exercise (22613), Therapeutic Activity (65512), Gait Training (82091) Timed Code Treatment (minutes): 57 Skilled Treatment Time (minutes): 57 Therapeutic Exercise (40425) Treatment Minutes: 15 $ Therapeutic Exercise (15542) Billed Units: 1 unit Exercise Ankle Pumps (number of reps): 10 Quad Sets (number of reps): 10 Glut Sets (number of reps): 10 Heel Slides (number of reps): 10 on left and 5 on right with min assist SLR (number of reps): unable to perform on right, x 5 on left Therapeutic Activity (22836) Treatment Minutes: 30 $ Therapeutic Activity (95360) Billed Units: 2 units Gait Training (14720) Treatment Minutes: 12 $ Gait Training (56117) Billed Units: 1 unit TRAINING AND EDUCATION [...] Walker Gait Sta (more content not included)... [facility] THERAPY NT HNO ID: [id number] Author: BUTCH DUMONT OTR/L Service: Occupational Therapy Author Type: Occupational Therapist Type: Therapy (PT/OT/Speech/Resp) Filed: 07/01/2024 11:14 Note Text: Summary: OT Cesar Occupational Therapy Evaluation Summary SERVICE DATE: 07/01/2024 SERVICE TIME: 925 to 1019 ROOM: [place] [address] OT 6 Clicks Score: 17 Total Joint [...] OT in the home to return to OF. PRECAUTIONS Fall Risk, Posterior Hip Precautions, Weight [...] Shower, Shower Chair, Walker- Wheeled, Rollator, Cane, Conveyancer, Long Handled Sponge, Elevated Toilet Seat PRIOR [...] and signs-other TREATMENT INTERVENTIONS Evaluation, Therapeutic Activity (74390), Self Long Term Management (14806) Timed Code Treatment (minutes): 39 Skilled Treatment [...] Therapy, Safety/Judgment, Self-Efficacy, Sitting Balance to Improve [place] with ADLs/Self-Care, Standing Balance to Improve [place] with ADLs/Self-Care, Transfer - Bed to Chair, [...] Assistance, Additional Informa (more content not included)... [facility] 06-30-2024 ALLIED [facility] HNO ID: [id number] Author: BOBBY CHANG CT Service: Radiology Author Type: Technologist Type: Allied Health Filed: 06/30/2024 14:57 Note Text: Radiology Service Progress Note PATIENT NAME: Azaela Mott DATE OF SERVICE: June 30, 2024 [...] PATIENT PRESENTS WITH AN IMPLANTABLE OR ATTACHED MEDICAL CHEMIST: No RADIOLOGY DEPARTMENT: General X-ray: Exam(s) Completed: Pelvis X-Ray: Pelvis General AP PERIPHERAL IV DATA: Not applicable SIGNED BY: Bobby EVERARDO Chang June 30, 2024 1:20 PM [facility] ANES POSTPROC EVALon 025 ANES POSTPROC EVAL HNO ID: [id number] Author: PARTH MARTINEZ MD Service: ? Author Type: Anesthesiologist Type: Anesthesia Postprocedure Evaluation Filed: 06/30/2024 14:08 Note Text: POST ANESTHESIA EVALUATION NOTE : 1950 Procedure Summary Date: 06/30/24 Room / Location: [place] OR / [place] Anesthesia Start: 1024 Anesthesia Stop: 1310 Procedure: ROBOTIC ASSISTED TOTAL HIP ARTHROPLASTY (see comments) (Right: Hip) Diagnosis: Primary osteoarthritis of right hip (Primary osteoarthritis of right hip [M16.11]) Surgeons: Eligio Bergeron MD Responsible Provider: Parth Martinez MD Anesthesia [...] June 30, 2024 TIME: 2:07 PM CSN: [id number] [facility] ANES PRE-OPon 06-30-2024 ANES PRE-OP HNO ID: [id number] Author: PARTH MARTINEZ MD Service: ? Author Type: Anesthesiologist Type: Anesthesia Preprocedure Evaluation Filed: 06/30/2024 10:25 Note Text: ANESTHESIOLOGY DAY OF SURGERY NOTE : 1950 Procedure Information Anesthesia Start Date/Time: 06/30/24 1024 Procedure: ROBOTIC ASSISTED TOTAL HIP ARTHROPLASTY (see comments) (Right: Hip) Location: [place] / [place] Surgeons: Eligio Bergeron MD Estimated body mass index is 33.67 [...] June 30, 2024 TIME: 10:25 AM CSN: [id number] Normal [facility] CONSULTon 06-30-2024 CONSULT HNO ID: [id number] Author: RUPERT TRIVEDI MD Service: General Internal Medicine Author Type: Physician Type: Consults Filed: 07/10/2024 17:34 Note Text: [facility]- Consultation AZALEA MOTT : 1950 AGE: 74 SEX: F ACCTNUM: [id number] [facility]: [facility] LOCATION: [facility] ATTENDING PHYSICIAN: ELIGIO BERGERON DATE OF SERVICE: 06/30/2024 TIME OF SERVICE: [...] list reviewed. ALLERGIES: She is allergic to [place], caused weird dreams. REVIEW OF SYSTEMS: HEENT/Neck: [...] while she is in the hospital. Rupert Trivedi M.D. Internal Medicine SKJ:[id number] [facility] OPERATIVE NOon 06-30-2024 OPERATIVE NO HNO ID: [id number] Author: ELIGIO BERGERON MD Service: Orthopaedic Surgery Author Type: Physician Type: Operative Report Filed: 06/30/2024 12:22 Note Text: PATIENT NAME: Azalea Mott CSN: [id number] LOG ID: [id number] Surgery Date: 06/30/2024 Surgeon(s) and Inclusion Manager(s): Surgeons and Role: * Eligio Bergeron MD - Primary * Alexandrea Rios MD [...] Primary osteoarthritis of right hip [M16.11] Implants: Kenna Trident II 50mm cup, 36mm neutral liner, [...] progressed significantly over time . X-rays reveal ohlcyjlt-uf-nujksv loss of articular cartilage of the hip [...] was then expos (more content not included)... [facility] Pathology biopsy report You (Tiss)on 06-30-2024 AP DISCLAIMER [facility] Comment on above: Order Comment: Speci men Type: BLOOD SPECIMEN [facility] Address: [address] [place] [address] Result Comment: Odette toro Developed Test (LDT) Disclaimer: Performance characteristics of immunohistochemical, immunofluorescent, and chromogenic in-situ hybridization tests have been determined by the performing laboratory within [facility]'s [facility] Pathology and Laboratory Medicine Department ([facility], [facility], [facility], [facility], [facility], [facility], or [facility]) in a manner consistent with CLIA requirements. One or more of these tests may not have been cleared or approved by the FDA. [facility] is regulated under CLIA as qualified to perform high-complexity testing. These tests are used for clinical purposes. These should not be regarded as investigational or for research. Positive and negative controls stain appropriately. Performed By: #### 2 4321-2, #### [facility] CLIA [id number] [address] CASE REPORT Normal [facility] Comment on above: Order Comment: Speci men Type: BLOOD SPECIMEN Ordering Facility: [facility] Address: [address] [place] [address] Result Comment: Surg ica Pathology Report Case: [id number] Authorizing Provider: Eligio Bergeron, Collected: 06/30/2024 11:12 AM Ordering Location: [facility] Surgery Received: 06/30/2024 01:23 PM Pathologist: Trey Jean-Baptiste MD Specimen: Femoral Head, Right Performed By: #### 2 4320-2, #### [facility] CLIA [id number] [address] CLINICAL HISTORY Normal [facility] Comment on above: Order Comment: Speci gt Type: BLOOD SPECIMEN Ordering Facility: [facility] Address: [address] [place] [address] Result Comment: Pre- op diagnosis: Primary osteoarthritis of right hip [M16.11] Performed By: #### 2 4321-2, #### [facility] CLIA [id number] [address] FINAL DIAGNOSIS [facility] Comment on above: Order Comment: Speci men Type: BLOOD SPECIMEN [facility]ing Facility[facility] Address: [address] [place] [address] Result Comment: A. F emoral head, right, arthroplasty: - Degenerative joint disease. - Abundant subsynovial adipose tissue. at 1143 EDT Performed By: #### 2 432-2, #### [facility] CLIA [id number] [address] [place] FINAL PERFORMING LAB Normal [facility] Comment on above: Order Comment: David del real Type: BLOOD SPECIMEN Ordering Facility: [facility] Address: [address] [place] [address] [place] [address] Result Comment: Carla denton interpretation performed at: [facility], [address] [place] [address], [address], [address]th Floor, [place] [address] CLIA# [id number] Rail Car Mechanic: Trey Jean-Baptiste MD Performed By: #### 2 4321-2, 62738-4 #### [facility] CLIA [id number] [address] GROSS DESCRIPTION Normal [facility] Comment on above: Order Comment: David del real Type: BLOOD SPECIMEN Ordering Facility: [facility] Address: [address] [place], [place] [address] [address] Result Comment: A. F emoral Head, Right Received in formalin labeled femoral head, right is a femoral head and neck, measuring 5.8 x 5.0 x 4.8 cm. The articular surface shows areas of eburnation and extensive roughening of the cartilage. Multiple osteophytes are present. Sectioning reveals firm, trabecular bone underlying the areas of eburnation. Subchondral cysts are not present. Minimal attached soft tissue is present. Systems Analyst sections are submitted as follows: A1: Soft tissue A2: Eburnated and noneburnated femoral head, following decalcification in formic acid HMZ 07/01/24 10:18 AM Gross examination performed at [facility], [address] [place] [address] Performed By: #### 2 4321-2, 69634-7 #### [facility] CLIA [id number] [address] THERAPY NTon 06-30-2024 THERAPY NT HNO ID: [id number] Author: DOYLE MARSH PT Service: Physical Therapy Author Type: Physical Therapist Type: Therapy (PT/OT/Speech/Resp) Filed: 06/30/2024 16:38 Note Text: Summary: PT evaluation Physical Therapy Evaluation Summary SERVICE DATE: 06/30/2024 SERVICE TIME: 1513 to 1557 ROOM: [id number] PT 6 Clicks Score: 16 Total Joint [...] Shower, Shower Chair, Walker- Wheeled, Rollator, Cane, Conveyancer, Long Handled Sponge, Elevated Toilet Seat PRIOR [...] Weakness (generalized) TREATMENT INTERVENTIONS Evaluation, Therapeutic Activity (72412), Gait Training (21595) Timed Code Treatment (minutes): 29 Skilled Treatment Time (minutes): 44 $ Evaluation-Low (32047) Billed Units: 1 unit Therapeutic Activity (64208) Treatment Minutes: 23 $ Therapeutic Activity (43395) Billed Units: 2 units Gait Training (53727) Treatment Minutes: 6 $ Gait Training (47741) Billed Units: 0 units TRAINING AND EDUCATION [...] elevated EOB. progress (more content not included)... Normal [facility] XR PELVIS 1V APon 04-24-2025 XR PELVIS 1V AP * * *Final [...] New RIGHT total hip arthroplasty without complication. Head Of Music: RACHELLE Transcribe Date/Time: Jun 30 2024 1:44P Dictated by : DEAN WALLACE DO This examination was interpreted and the report reviewed and electronically signed by: DEAN WALLACE DO on Jun 30 2024 1:47PM EST [id number] Normal [facility] CNPCande 06-28-2024 JOHN Telephone (CHERIE) AZALEA MOTT ([id number]) 1950 F Date Time Provider Department 06/28/24 ONEL BETHEA During your visit today, we recorded the following information about you: Yobani Valle 06/28/2024 10:58 AM Signed Patient is scheduled for surgery on at [facility]. She has the early start of a fever blister on her upper lip. She gets these when she is stressed. She immediately started putting Carmex on it. She is hoping that this will not stop her from having surgery. She can be reached at [phone]. Yobani Isaac SedYobani Culver 06/28/2024 11:06 AM Signed Aye, this should have been sent to your team. Yobani sIaac Sednakul Isaac Sedc, Yobani 06/28/2024 2:17 PM Signed Eligio Bergeron MD You; Kasie Escobar RN; Jamal Larios PA-C1 hour ago (12:54 PM) Nope just depends what it looks like on the day of surgery Bernarda Carter, Yobain 06/28/2024 2:17 PM Signed Patient called and notified of physician's response. She stated that it already looks better. She will continue to use the topical Carmex but she just wanted to keep us informed. She will call if she has any other questions or concerns. Yobani Carter Allergies As of Date: 06/28/2024 Noted Allergy Reaction NORCO (HYDROCODONE-ACETAMINO PHEN) 10/24/2020 14 - Other: See Comments Comments: Weird dreams. Date Reviewed: 06/09/2024 Reviewed by: [place] Vázquez MA - Fully Assessed Reason for Visit: Patient Question [3428] Prescriptions as of 06/28/2024 - metoprolol succinate [...] 11/21/2011 03/28/2016 Thickened endometrium [R93.89] 12/05/2011 03/28/2016 Laurel of foot [L84] 08/17/2013 03/28/2016 Primary osteoarthritis [...] (HCC) [I27.20] 06/27/2024 Encounter Status:Closed by YOBANI VALLE on 06/28/24 Normal [facility] Carlie 06-27-2024 [facility] Telephone (ORMDNA) AZALEA MOTT ([id number]) 1950 F Date Time Provider Department 06/27/24 ELIGIO BERGERON During your visit today, we recorded the following information about you: Yobani Valle 06/27/2024 10:19 AM Signed Patient is scheduled for surgery on this coming up . She was placed on 2 new medications by her industrial laborer. She is not sure if she should hold these or continue on them. She would like a call back. She can be reached at [phone]. Yobani Hendrix Kasie Escobar, JACOB 06/27/2024 10:58 AM Signed Patient needs to hold eliquis 3 days prior to surgery Thanks [place] Attempted to call patient. No answer. Voicemail picked up and then dropped call- unable to leave message. Sent [employer] message. Allergies As of Date: 06/27/2024 Noted Allergy Reaction NORCO (HYDROCODONE-ACETAMINO PHEN) 10/24/2020 14 - Other: See Comments Comments: Weird dreams. Date Reviewed: 06/09/2024 Reviewed by: [place] Vázquez MA - Fully Assessed Reason for Visit: Patient Question [1811] Cmt: Medication question Prescriptions as of 06/27/2024 [...] 11/21/2011 03/28/2016 Thickened endometrium [R93.89] 12/05/2011 03/28/2016 Laurel of foot [L84] 08/17/2013 03/28/2016 Primary osteoarthritis [...] hypertension (HCC) [I27.20] 06/27/2024 Encounter Status:Closed by KASIE ESCOBAR on 06/27/24 [facility] (PREANME) AZALEA MOTT ([id number]) 1950 F Date Time Provider Department 06/24/24 STEPHON HOANG PREENRIKE During your visit today, we recorded the following information about you: Stephon Hoang APRN.CNP 06/24/2024 7:38 AM Signed Ishan, I saw this mutual patient in PACC on 06/07/2024. Azalea Mott 1950 [id number] is scheduled for ROBOTIC ASSISTED TOTAL HIP ARTHROPLASTY with Dr. Bergeron on 06/30/2024. You were able to see this patient in office for preop eval with pending ECHO and Stress Test. Is this patient optimized from a cardiac standpoint? ECHO (06/23/2024 7:15 AM) NM CARDIAC PERF STRESS/PHARM (06/23/2024 10:09 AM) Thank you, Stephon Hoang APRN.Stephon العراقي APRN.CNP 06/27/2024 10:01 AM Signed Ishan, I saw this mutual patient in PACC on 06/07/2024. Azalea Mott 1950 [id number] is scheduled for ROBOTIC ASSISTED TOTAL HIP ARTHROPLASTY with Dr. Bergeron on 06/30/2024. Is this patient OK to hold Eliquis 3 days prior to procedure? She took her last does yesterday night in preparation for surgery. I was able to see your optimization in note to patient. Stephon Hoang APRN.Taty Ulloa MD 06/29/2024 6:19 PM Signed [...] 11/21/2011 03/28/2016 Thickened endometrium [R93.89] 12/05/2011 03/28/2016 Laurel of foot [L84] 08/17/2013 03/28/2016 Primary osteoarthritis of right hip [M16.11] 08/09/2015 Arthritis of right hip [M16.11] 08/09/2015 10/24/2020 Hyperlipidemia LDL goal <100 [E78.5] 01/18/2016 Hypertension, essential [I10] 01/02/2020 SIOBHAN on CPAP [G47.33] 01/27/2020 Obesity, Class I, BMI 30-34.9 [E66.811] 10/25/2020 Chronic kidney insufficiency, stage 3 (moderate*08/25/2023 Impaired fasting glucose [R73.01] 04/06/2023 Venous insufficiency [I87.2] / (more content not included)... Normal [facility] ECHOon 06-23-2024 Echocardiography Echocardiography Report: Transthoracic Echo [facility] Date of service: 06/23/2024 7:15:55 AM Ordering physician: TATY GREEN Indication: a-fib Technologist: Roxanne Gray [facility] Interpreting physician: Homero Avila MD PATIENT: Name: [...] * * Final * * * CC [employer] : [id number] SISUID Normal [facility] NM CARDIAC PERF STRESS/PHARM on 06-23-2024 NM CARDIAC PERF STRESS/PHARM * * *Final Report* * * DATE OF EXAM: Jun 23 2024 10:09AM MARIJA 0006 - NM CARDIAC PERF STRESS/PHARM / PROCEDURE REASON: multiple diagnoses * * * * Physician Interpretation * * * * Stress Roller Report: [facility] Date of service: 06/23/2024 8:31:50 AM Supervising [...] later. See administered radiotracer and doses below. [facility] Date of service: 06/23/2024 8:31:50 AM Ordering Physician: TATY GREEN. Requesting Physician: Indication: Dyspnea Interpreting physician: Clinton [...] * * * ------ Stress ECG Report: [facility] Date of service: 06/23/2024 8:31:50 AM Ordering physician: TATY GREEN computer security specialist: Ana Sy Inclusion Manager: Lori Gray Interpreting physician: Meena Concepcion MD [...] 9880 Stress Exerc (more content not included)... [facility] Heart Perfusion W stress and W radionuclide Peter 06-23-2024 * * *Final Report* * * DATE OF EXAM: Jun 23 2024 10:09AM MARIJA 0006 - MARIA LUISA CARDIAC PERF STRESS/PHARM / PROCEDURE REASON: multiple diagnoses * * * * Physician Interpretation * * * * Stress Roller Report: [facility] Date of service: 06/23/2024 8:31:50 AM Supervising [...] later. See administered radiotracer and doses below. [facility] Date of service: 06/23/2024 8:31:50 AM Ordering Physician: TATY GREEN. Requesting Physician: Indication: Dyspnea Interpreting physician: Clinton [...] * * * ------ Stress ECG Report: [facility] Date of service: 06/23/2024 8:31:50 AM Ordering physician: TATY GREEN computer security specialist: Ana Sy Inclusion Manager: Lori Gray Interpreting physician: Meena Concepcion MD [...] 127 51 +----- (more content not included)... [facility] Provider, [facility] - 06/23/2024 * * *Final Report* * * DATE OF EXAM: Jun 23 2024 10:09AM MARIJA 0006 - NM CARDIAC PERF STRESS/PHARM / PROCEDURE REASON: multiple diagnoses * * * * Physician Interpretation * * * * Stress Roller Report: [facility] Date of service: 06/23/2024 8:31:50 AM Supervising [...] later. See administered radiotracer and doses below. [facility] Date of service: 06/23/2024 8:31:50 AM Ordering Physician: TATY GREEN. Requesting Physician: Indication: Dyspnea Interpreting physician: Clinton [...] * * * ------ Stress ECG Report: [facility] Date of service: 06/23/2024 8:31:50 AM Ordering physician: TATY GREEN computer security specialist: Ana Sy Inclusion Manager: Lori Gray Interpreting physician: Meena Concepcion MD [...] 49 +-----+--+---+---+ Stres (more content not included)... [facility] Radiology Study observation (narrative) [facility] Heart Perfusion W stress and W radionuclide IVOrdered By: [facility]cf Provider on 06-23-2024 [facility] No Panel Informationon 06-23 CONCLUSIONS: - [...] * * * Final * * * [facility] Echocardiography Report: Transthoracic Echo [facility] Date of service: 06/23/2024 7:15:55 AM Ordering physician: TATY GREEN Indication: a-fib Technologist: Roxanne Gray [facility] Interpreting physician: Homero Avila MD PATIENT: Name: [...] effusion. There is an epicardial fat pad. ARTURO BUNCH [facility] Carlie 06-22-2024 CNPN Telephone (CDLBME) AZALEA MOTT ([id number]) 1950 F Date Time Provider Department 06/22/24 [facility] During your visit today, we recorded the [...] Fully Assessed Reason for Visit: Reminder Call [4414] Prescriptions as of 06/22/2024 - metoprolol succinate [...] 11/21/2011 03/28/2016 Thickened endometrium [R93.89] 12/05/2011 03/28/2016 Laurel of foot [L84] 08/17/2013 03/28/2016 Primary osteoarthritis of right hip [M16.11] 08/09/2015 Arthritis of right hip [M16.11] 08/09/2015 10/24/2020 Hyperlipidemia LDL goal <100 [E78.5] 01/18/2016 Hypertension, essential [I10] 01/02/2020 SIOBHAN on CPAP [G47.33] 01/27/2020 Obesity, Class I, BMI 30-34.9 [E66.811] 10/25/2020 Chronic kidney insufficiency, stage 3 (moderate*08/25/2023 Impaired fasting glucose [R73.01] 04/06/2023 Venous insufficiency [I87.2] 09/02/2023 Encounter Status:Closed by HAYLEY JAVIER on 06/22/24 [facility] 06-14-2024 [facility] Telephone ([facility]) AZALEA MOTT ([id number]) 1950 F Date Time Provider Department 06/14/24 TATY GREEN During your visit today, we recorded the following information about you: Fiorella Rodriguez RN 06/14/2024 2:45 PM Signed Please refer to Nurse Triage encounter from 06/14/2024: Taty Green MD to Karlee Stinson RN 06/14/24 1:00 PM Can increase metoprolol to 50 mg once daily which is equivalent to 2 of the 25 mg metoprolol tablets once a day. Metoprolol prescription has been adjusted to 50 mg once daily. Fiorella Rodriguez RN 06/14/2024 2:55 PM Signed Informed pt of Dr. Green message below. Pt verbalized understanding. Advised her [...] 11/21/2011 03/28/2016 Thickened endometrium [R93.89] 12/05/2011 03/28/2016 Laurel of foot [L84] 08/17/2013 03/28/2016 Primary osteoarthritis of right hip [M16.11] 08/09/2015 Arthritis of right hip [M16.11] 08/09/2015 10/24/2020 Hyperlipidemia LDL goal <100 [E78.5] 01/18/2016 Hypertension, essential [I10] 01/02/2020 SIOBHAN on CPAP [G47.33] 01/27/2020 Obesity, Class I, BMI 30-34.9 [E66.811] 10/25/2020 Chronic kidney insufficiency, stage 3 (moderate*08/25/2023 Impaired fasting glucose [R73.01] 04/06/2023 Venous insufficiency [I87.2] 09/02/2023 Encounter Status:Closed by FIORELLA RODRIGUEZ on 06/14/24 Normal [facility] CNOVon 06-09-2024 CNOV Office Visit (CARDMM ) AZALEA MOTT ([id number]) 1950 F Date Time Provider Department 06/09/24 11:00 AM TATY GREEN During your visit today, we recorded the following information about you: Pulse Blood pressure Weight Height 95/minute 120/70 97.5 kg 1.702 m Taty Green MD 06/24/2024 7:57 AM [facility] [place] SECTION OF REGIONAL CARDIOLOGY OUTPATIENT VISIT DATE 06/09/2024 OUTPATIENT VISIT TYPE NEW PRIMARY CARE PHYSICIAN: Navdeep Holcomb [address] [phone] Patient is being seen at the request [...] FLX DX W/COLLJ SPEC WHEN PFRMD 02/13/2017 CWY-Qphab-nlnzzb 10 years HYSTEROSCOPY BX W/WO DANDC 12/2011 [...] Problems No Family History ALLERGIES Allergen Reactions [place] [Hydrocodone-* Other: See Comments Weird dreams. CURRENT [...] apparent cardio (more content not included)... Normal [facility] Carlie 06-08-2024 CNPN Telephone (ORTHMN) AZALEA MOTT ([id number]) 1950 F Date Time Provider Department 06/08/24 PATTIE ARTEAGA During your visit today, we recorded the following information about you: Pattie Arteaga LSW 06/08/2024 1:13 PM Signed ORTHOPAEDIC COORDINATION OF CARE Pre-Op Assessment Discharge Disposition (Planned): Home with Home Health Discharge Transportation: Car A [facility] Information: Surgeon: Eligio Bergeron MD Date of surgery: 06/30/2024 Surgery location: [place] [facility] location: [place] Date of [facility] clinic: 06/07/2024 Appts included in visit: Joint Class, PACC, Social Work, Lab and Imaging Joint being replaced: Right Hip PRIMARY CARE PHYSICIAN: Navdeep Holcomb MD OR Surgery Date: 06/30/2024 [facility] Appointment: 06/30/2024 Joint: Jointtype: Hip Side: right Health Insurance: Medicare or MEDICARE SUPPLEMENT GENERIC Primary Contact: Extended Emergency Contact Information Primary Emergency Contact: Uli Mott Address: [address] [place] [address] Mobile Relation: Spouse Have you had joint [...] min Stress: No Stress Concern Present (06/08/2024) [place] [facility] - Occupational Stress Questionnaire Feeling of Stress : Not at all Social Connections: Moderately Integrated (06/08/2024) Social Connection and Isolation Panel [NHANES] Frequency of Communication with Friends and Family: More than three times a week Frequency of Social Gatherings with Friends and Family: More than three times a week Attends Druze Services: More than 4 times per year [...] Year: No Utilities: Not At Risk (06/08/2024) [facility] Utilities Threatened with loss of utilities: No Area Deprivation Index: Medium Risk (06/07/2024) Area Deprivation Index National Score (1-100), lower number is lower risk: 58 State Score (1-10), lower number is lower risk: 4 Data from: https://www.[facility] gurpreet.[facility]/. Last address used for calculation: [address] [place] [address] Equipment: Do you currently use any equipment [...] wipes fr (more content not included)... [facility] AZALEA MOTT ([id number]) 1950 F Date Time Provider Department 06/08/24 NAVDEEP HOLCOMB INTMWS During your visit today, we recorded the following information about you: Raquel Ling RN 06/08/2024 3:10 PM Signed Patient calling in and states she was told by her insurance billing specialist office to notify her PCP that she will be having total hip arthroplasty on 06/30/24. Patient states she has received all pre-op information that she needs and has no questions or concerns for PCP at this time. JACOB Joshi Victor H, MD 06/08/2024 5:27 PM Signed Noted. Preoperative examination is scheduled with Dr. Green tomorrow. Stephon Hoang APRN.KYAW 06/10/2024 6:13 PM Signed Hellebron Garvey, I saw this mutual patient in PACC on 06/07/2024. Azalea Mott 1950 [id number] is scheduled for Right Total Hip Arthroplasty with Dr. Bergeron on 06/30/24. FYI - Patient's labs are acceptable for upcoming procedure, but wanted to let you know that the patient's Calcium is elevated. Calcium, Total 8.5 - 10.2 mg/dL 10.7 High Thank you, Stephon Hoang APRN.CIRCLE BEVELER Allergies As of Date: 06/08/2024 Noted Allergy Reaction NORCO (HYDROCODONE-ACETAMINO PHEN) 10/24/2020 14 - Other: See Comments Comments: Weird dreams. Date Reviewed: 06/07/2024 Reviewed by: Stephon Hoang APRN.CIRCLE BEVELER - Fully Assessed Reason for Visit: Patient [...] 11/21/2011 03/28/2016 Thickened endometrium [R93.89] 12/05/2011 03/28/2016 Laurel of foot [L84] 08/17/2013 03/28/2016 Primary osteoarthritis [...] Reported on 04/22/2024 Encounter Status:Closed by NAVDEEP HOLCOMB on 06/08/24 Normal [facility] BLOOD BANK COMMENTon 025 BLOOD BANK COMMENT See Comment [facility] Comment on above: Order Comment: Speci men Type: BLOOD SPECIMEN [facility] Address: [address] [place] [address] Result Comment: 2nd sample NEEDED for ABO confirmation (CONABO) Performed By: #### 2 4321-2, 41503-1 #### [facility] CLIA [id number] [address] [place] [address] [place] CBC W Auto Differential pane l (Bld)on 06-07-2024 Basophils (Bld) [#/Vol] 0.05 10*3/uL Normal <0.11 [facility] Comment on above: Order Comment: Speci men Type: BLOOD SPECIMENOrdering Facility: [facility] Address: [address] [place] [address] Performed By: #### 5 7021-8 ####[facility] [id number] [place] [address] [place] Basophils/100 WBC (Bld) 0.6 % Normal [facility] Comment on above: Order Comment: Speci men Type: BLOOD SPECIMENOrdering Facility: [facility] Address: [address] [place] [address] Performed By: #### 5 7021-8 ####[facility] [id number] [address] STATES [facility] Differential cell count method Nom (Bld) Auto Normal [facility] Comment on above: Order Comment: Speci men Type: BLOOD SPECIMENOrdering Facility: [facility] Address: [address] [place] [address] Performed By: #### 5 7021-8 ####[facility] [id number] [place] [address] [place] [facility] OF [place] Eosinophils (Bld) [#/Vol] 0.22 10*3/uL Normal <0.46 [facility] Comment on above: Order Comment: Speci men Type: BLOOD SPECIMENOrdering Facility: [facility] Address: [address] [place] [address] Performed By: #### 5 7021-8 ####[facility] [id number] [address] OF [place] Eosinophils/100 WBC (Bld) 2.5 % Normal [facility] Comment on above: Order Comment: Speci men Type: BLOOD SPECIMENOrdering Facility: [facility] Address: [address] [place] [address] Performed By: #### 5 7021-8 ####[facility] [id number] [address] STATES [facility] Erythrocyte distribution width (RBC) [Ratio] 12.3 % Normal 11.5-15.0 [facility] Comment on above: Order Comment: Speci men Type: BLOOD SPECIMENOrdering Facility: [facility] Address: [address] [place] [address] Performed By: #### 5 7021-8 ####[facility] [id number] [address] Hematocrit (Bld) [Volume fraction] 37.9 % Normal 36.0-46.0 [facility] Comment on above: Order Comment: Speci men Type: BLOOD SPECIMENOrdering Facility: [facility] Address: [address] [place] [address] Performed By: #### 5 7021-8 ####[facility] [id number] [address] [place] Hemoglobin (Bld) [Mass/Vol] 12.7 g/dL Normal 11.5-15.5 [facility] Comment on above: Order Comment: Speci men Type: BLOOD SPECIMENOrdering Facility: [facility] Address: [address] [place] [address] Performed By: #### 5 7021-8 ####[facility] [id number] [place] [address] [place] Immature granulocytes (Bld) [#/Vol] 0.03 10*3/uL Normal <0.10 [facility] Comment on above: Order Comment: Speci men Type: BLOOD SPECIMENOrdering Facility: [facility] Address: [address] [place] [address] Performed By: #### 5 7021-8 ####[facility] [id number] [place] [address] [place] Immature granulocytes/100 WBC (Bld) 0.3 % Normal [facility] Comment on above: Order Comment: Speci men Type: BLOOD SPECIMENOrdering Facility: [facility] Address: [address] [place] [address] Performed By: #### 5 7021-8 ####[facility] [id number] [place] [address] [place] Lymphocytes (Bld) [#/Vol] 1.85 10*3/uL Normal 1.00-4.00 [facility] Comment on above: Order Comment: Speci men Type: BLOOD SPECIMENOrdering Facility: [facility] Address: [address] [place] [address] Performed By: #### 5 7021-8 ####[facility] [id number] [address] STREET OF AKI Lymphocytes/100 WBC (Bld) 20.7 % Normal [facility] Comment on above: Order Comment: Speci men Type: BLOOD SPECIMENOrdering Facility: [facility] Address: [address] [place] [address] Performed By: #### 5 7021-8 ####[facility] LABORATORYCLIA [id number] [place] [address] [place] MCH (RBC) [Entitic mass] 29.5 pg Normal 26.0-34.0 [facility] Comment on above: Order Comment: Speci men Type: BLOOD SPECIMENOrdering Facility: [facility] Address: [address] [place] [address] Performed By: #### 5 7021-8 ####[facility] LABORATORYCLIA [id number] [place] [address] [place] MCHC (RBC) [Mass/Vol] 33.5 g/dL Normal 30.5-36.0 [facility] Comment on above: Order Comment: Speci men Type: BLOOD SPECIMENOrdering Facility: [facility] Address: [address] [place] [address] Performed By: #### 5 7021-8 ####[facility] LABORATORYCLIA [id number] [address] [place] MCV (RBC) [Entitic vol] 87.9 fL Normal 80.0-100.0 [facility] Comment on above: Order Comment: Speci men Type: BLOOD SPECIMENOrdering Facility: [facility] Address: [address] [place] [address] Performed By: #### 5 7021-8 ####[facility] LABORATORYCLIA [id number] [place] [address] [place] Monocytes (Bld) [#/Vol] 0.57 10*3/uL Normal <0.87 [facility] Comment on above: Order Comment: Speci men Type: BLOOD SPECIMENOrdering Facility: [facility] Address: [address] [place] [address] Performed By: #### 5 7021-8 ####[facility] LABORATORYCLIA [id number] [address] [place] Monocytes/100 WBC (Bld) 6.4 % Normal [facility] Comment on above: Order Comment: Speci men Type: BLOOD SPECIMENOrdering Facility: [facility] Address: [address] [place] [address] Performed By: #### 5 7021-8 ####[facility] LABORATORYCLIA [id number] [place] [address] [place] Neutrophils (Bld) [#/Vol] 6.21 10*3/uL Normal 1.45-7.50 [facility] Comment on above: Order Comment: Speci men Type: BLOOD SPECIMENOrdering Facility: [facility] Address: [address] [place] [address] Performed By: #### 5 7021-8 ####[facility] LABORATORYCLIA [id number] [address] STATES OF [place] Neutrophils/100 WBC (Bld) 69.5 % Normal [facility] Comment on above: Order Comment: Speci men Type: BLOOD SPECIMENOrdering Facility: [facility] Address: [address] [place] [address] Performed By: #### 5 7021-8 ####[facility] LABORATORYCLIA [id number] [place] [address] [place] Nucleated RBC (Bld) [#/Vol] 10*3/uL Normal <0.01 [facility] Comment on above: Order Comment: Speci men Type: BLOOD SPECIMENOrdering Facility: [facility] Address: [address] [place] [address] Performed By: #### 5 7021-8 ####[facility] LABORATORYCLIA [id number] [address] [place] OF [place] Nucleated RBC/100 WBC (Bld) [Ratio] 0.0 /[address] [facility] Comment on above: Order Comment: Speci men Type: BLOOD SPECIMENOrdering Facility: [facility] Address: [address] [place] [address] Performed By: #### 5 7021-8 ####[facility] LABORATORYCLIA [id number] [place] [address] [place] Platelet mean volume (Bld) [Entitic vol] 10.7 fL Normal 9.0-12.7 [facility] Comment on above: Order Comment: Speci men Type: BLOOD SPECIMENOrdering Facility: [facility] Address: [address] [place] [address] Performed By: #### 5 7021-8 ####[facility] LABORATORYCLIA [id number] [place] [address] [place] Platelets (Bld) [#/Vol] 245 10*3/uL Normal 150-400 [facility] Comment on above: Order Comment: Speci men Type: BLOOD SPECIMENOrdering Facility: [facility] Address: [address] [place] [address] Performed By: #### 5 7021-8 ####M[facility] LABORATORYCLIA [id number] [address] OF [facility] RBC (Bld) [#/Vol] 4.31 10*6/uL Normal 3.90-5.20 [facility] Comment on above: Order Comment: Speci men Type: BLOOD SPECIMENOrdering Facility: [facility] Address: [address] [place] [address] Performed By: #### 5 7021-8 ####[facility] LABORATORYCLIA [id number] [place] [id number] [facility] OF AKI WBC (Bld) [#/Vol] 8.93 10*3/uL Normal 3.70-11.00 [facility] Comment on above: Order Comment: Speci men Type: BLOOD SPECIMENOrdering Facility: [facility] Address: [address] [place] [address] Performed By: #### 5 7021-8 ####[facility] LABORATORYCLIA [id number] [address] HIP WO IVCON RTon 025 CT HIP WO IVCON RT * * *Final Report* * * DATE OF EXAM: Jun 07 2024 2:14PM [facility] 0080 - CT HIP WO IVCON [...] left hip osteoarthritis. Bilateral knees: Bilateral osteoarthritis General Laborer: No significant finding. IMPRESSION: Limited CT images for the purposes of presurgical planning. Head Of Music: RACHELLE Transcribe Date/Time: Jun 09 2024 8:16A Dictated by : MARLYN BARR MD This examination was interpreted and the report reviewed and electronically signed by: MARLYN BARR MD on Jun 09 2024 8:17AM EST [id number] Normal [facility] Comprehensive metabolic 2000 panelon 06-07-2024 Albumin [Mass/Vol] 4.4 g/dL Normal 3.9-4.9 [facility] Comment on above: Order Comment: Speci men Type: BLOOD SPECIMENOrdering Facility: [facility] Address: [address] [place] [address] Performed By: #### 2 4323-8 ####[facility] LABORATORYCLIA [id number] [address] STATES [facility] ALP [Catalytic activity/Vol] 87 U/L Normal 34-123 [facility] Comment on above: Order Comment: Speci men Type: BLOOD SPECIMENOrdering Facility: [facility] Address: [address] [place] [address] Performed By: #### 2 4323-8 ####[facility] LABORATORYCLIA [id number] [address] STATES [facility] ALT [Catalytic activity/Vol] 19 U/L Normal 7-38 [facility] Comment on above: Order Comment: Speci men Type: BLOOD SPECIMENOrdering Facility: [facility] Address: [address] [place] [address] Performed By: #### 2 4323-8 ####[facility] LABORATORYCLIA [id number] [address] STATES [facility] Anion gap [Moles/Vol] 12 mmol/L Normal 8-15 [facility] Comment on above: Order Comment: Speci men Type: BLOOD SPECIMENOrdering Facility: [facility] Address: [address] [place] [address] Performed By: #### 2 4323-8 ####[facility] LABORATORYCLIA [id number] [address] STATES OF AKI AST [Catalytic activity/Vol] 18 U/L Normal 13-35 [facility] Comment on above: Order Comment: Speci men Type: BLOOD SPECIMENOrdering Facility: [facility] Address: [address] [place] [address] Performed By: #### 2 4323-8 ####[facility] LABORATORYCLIA [id number] [place] [address] [place] Bilirubin [Mass/Vol] 0.5 mg/dL Normal 0.2-1.3 [facility] Comment on above: Order Comment: Speci men Type: BLOOD SPECIMENOrdering Facility: [facility] Address: [address] [place] [address] Performed By: #### 2 4323-8 ####[facility] LABORATORYCLIA [id number] [place] [address] [place] Calcium [Mass/Vol] 10.7 mg/dL High 8.5-10.2 [facility] Comment on above: Order Comment: Speci men Type: BLOOD SPECIMENOrdering Facility: [facility] Address: [address] [place] [address] Performed By: #### 2 4323-8 ####[facility] LABORATORYCLIA [id number] [place] [address] [place] Chloride [Moles/Vol] 98 mmol/L Normal 98-107 [facility] Comment on above: Order Comment: Speci men Type: BLOOD SPECIMENOrdering Facility: [facility] Address: [address] [place] [address] Performed By: #### 2 4323-8 ####[facility] LABORATORYCLIA [id number] [place] [address] [place] CO2 [Moles/Vol] 30 mmol/L Normal 22-30 [facility] Comment on above: Order Comment: Speci men Type: BLOOD SPECIMENOrdering Facility: [facility] Address: [address] [place] [address] Performed By: #### 2 4323-8 ####[facility] LABORATORYCLIA [id number] [place] [address] [place] Creatinine [Mass/Vol] 1.00 mg/dL High 0.58-0.96 [facility] Comment on above: Order Comment: Speci men Type: BLOOD SPECIMENOrdering Facility: [facility] Address: [address] [place] [address] Performed By: #### 2 4323-8 ####[facility] LABORATORYCLIA [id number] [address] Creatinine and Glomerular filtration rate.predicted panel (S/P/Bld) 60 mL/min/1.73m??? Normal >=60 [facility] Comment on above: Order Comment: Speci men Type: BLOOD SPECIMENOrdering Facility: [facility] Address: [address] [place] [address] Result Comment: Jessica mated Glomerular Filtration Rate [...] Performed By: #### 2 4323-8 ####[facility] LABORATORYCLIA [id number] [place] [address] [place] Glucose [Mass/Vol] 104 mg/dL High 74-99 [facility] Comment on above: Order Comment: Speci men Type: BLOOD SPECIMENOrdering Facility: [facility] Address: [address] [place] [address] Result Comment: The [place] Diabetes Association (ADA) provides guidance for cutoff [...] Standards of Medical Care in Diabetes 2016, [place] Diabetes Association. Diabetes Care. 2016.39(Suppl 1). Performed By: #### 2 4323-8 ####[facility] LABORATORYCLIA [id number] [address] [place] Potassium [Moles/Vol] 4.0 mmol/L Normal 3.7-5.1 [facility] Comment on above: Order Comment: Speci men Type: BLOOD SPECIMENOrdering Facility: [facility] Address: [address] [place] [address] Performed By: #### 2 4323-8 ####[facility] LABORATORYCLIA [id number] [place] [address] [place] Protein [Mass/Vol] 7.9 g/dL Normal 6.3-8.0 [facility] Comment on above: Order Comment: Speci men Type: BLOOD SPECIMENOrdering Facility: [facility] Address: [address] [place] [address] Performed By: #### 2 4323-8 ####[facility] LABORATORYCLIA [id number] [address] [place] Sodium [Moles/Vol] 140 mmol/L Normal 136-144 [facility] Comment on above: Order Comment: Speci men Type: BLOOD SPECIMENOrdering Facility: [facility] Address: [address] [place] [address] Performed By: #### 2 4323-8 ####[facility] LABORATORYCLIA [id number] [place] [address] [place] Urea nitrogen [Mass/Vol] 26 mg/dL High 7-21 [facility] Comment on above: Order Comment: Speci men Type: BLOOD SPECIMENOrdering Facility: [facility] Address: [address] [place] [address] Performed By: #### 2 4323-8 ####M[facility] LABORATORYCLIA [id number] [place] [address] [place] ECG COMPLETEon 06-07-2024 ECG COMPLETE Ventricular Rate : 9 9 BPM Atrial Rate : 258 BPM QRS Duration : 116 ms Q-T Interval : 322 ms QTC Calculation(Bazett) : 413 ms Calculated R [place] : -19 degrees Calculated T [place] : 19 degrees ATRIAL FLUTTER WITH VARIABLE A-V BLOCK RIGHT BUNDLE BRANCH BLOCK ABNORMAL ECG NO PREVIOUS ECGS AVAILABLE Confirmed by BENJAMÍN BULLARD M.D. ([id number]) on 06/08/2024 5:01:26 PM NAME : AZALEA MOTT PID : [id number] : 1950 Gender : Female Race : ORD : [id number] Procedure Date : Jun 07 2024 13:08:12 Edit Date : Jun 08 2024 17:01:29 Diagnosis: ATRIAL FLUTTER WITH VARIABLE A-V BLOCK RIGHT BUNDLE BRANCH BLOCK ABNORMAL ECG NO PREVIOUS ECGS AVAILABLE Confirmed by BENJAMÍN BULLARD M.D. ([id number]) on 06/08/2024 5:01:26 PM Test Reason : HCS Location : 10 : [facility]/ Overread By : BENJAMÍN BULLARD M.D. Edited By : BENJAMÍN BULLARD M.D. Referred By : ELIGIO BERGERON Acquired by : paul [facility] HISTORY PHYSICALon HISTORY PHYSICAL HNO ID: [id number] Author: STEPHON HOANG APRN.CIRCLE BEVELER Service: ? Author Type: Nurse Practitioner Type: H&P Filed: 06/27/2024 10:07 Note Text: [facility] HISTORY AND PHYSICAL EXAMINATION SERVICE DATE: 06/07/2024 SERVICE TIME: 10:07 AM PRIMARY CARE PHYSICIAN: Navdeep Holcomb MD Assessment Patient has the following medical conditions which may affect lyndsey-operative course: SIOBHAN on CPAP Assessment: Compliant on device. Advised to bring day of surgery. Chronic kidney insufficiency, stage 3 (moderate) ([facility]) Assessment: Denies any new or worsening symptoms. [...] syncope, activity intolerance, or dizziness. Follows Cardiology. [id number]-LNAD CHADS2-Vasc Score Breakdown 3 Total Score 1 [...] able to be scheduled with cardiology (Dr. Green) , 06/09. ADDENDUM: June 27, 2024 9:[address] Green, There was mild tricuspid valve regurgitation/ leakiness. [...] surgery. Dis (more content not included)... Normal [facility] HbA1c (Bld)on 06-07-2024 Average glucose Estimated from glycated hemoglobin (Bld) [Mass/Vol] 111 mg/dL Normal [facility] Comment on above: Order Comment: Speci men Type: BLOOD SPECIMENOrdering Facility: [facility] Address: [address] [place] [address] Result Comment: eAG: (Estimated average glucose) is a calculated value from HgbA1c and is wine sales representative of the average blood glucose level in the last 2-3 month period. Performed By: #### 5 5454-3 ####[facility] LABCLIA [id number] [place] [address] [place] HbA1c (Bld) [Mass fraction] 5.5 % Normal 4.3-5.6 [facility] Comment on above: Order Comment: aDvid del real Type: BLOOD SPECIMENOrdering Facility: [facility] Address: [address] [place] [address] Result Comment: Demetria ican Diabetes Association guidelines indicate that patients with HgbA1c in the range 5.7-6.4% are at increased risk for development of diabetes, and intervention by lifestyle modification may be beneficial. HgbA1c greater or equal to 6.5% is considered diagnostic of diabetes. Performed By: #### 5 5454-3 ####[facility] LABCLIA [id number] [address] TYPE AND SCREEN,30 DAYon ABO AB Normal [facility] Comment on above: Order Comment: David del real Type: BLOOD SPECIMEN [facility] Address: [address] [place] [address] Performed By: #### 2 4321-2, 48077-6 #### [facility] CLIA [id number] [address] OF [facility] Rh Nom (Bld) Negative [facility] Comment on above: Order Comment: David del real Type: BLOOD SPECIMEN [facility] Address: [address] [place] [address] Performed By: #### 2 4321-2, 69939-7 #### [facility] CLIA [id number] [address] CNPNon 06-02-2024 CNPN Telephone (ME2E) AZALEA MOTT ([id number]) 1950 F Date Time Provider Department 06/02/24 ELIGIO BERGERON MN2E During your visit today, we recorded the following information about you: Evaristo Pate PSS 06/06/2024 12:03 PM Signed TOTAL JOINT COMPLETE CARE PROGRAM PRE-OPERATIVE TEACHING Service Date: 06/02/2024 Service Time: 11:59 AM Date of : 1950 Gender: female Date of Surgery: 06/30/24 Procedure: Right Total Hip Replacement Complete Care Program was discussed with the patient: Fur Comber Identification: Patient identified a childcare attendant to help when discharged to home: Home Environment: Home Layout: Ranch, Entry Steps: 2, with rail, Bedroom Location: 1st floor, Bathroom Location: 1st floor, and walk in shower. Pt owns walker, cane, shower chair, raised toilet seat. Discussed with patient importance of attending joint education class and provided date and times of class: YES Arturo BURNS 06/07 Patient received Joint Education Binder: Yes Patient plans discharge home with [facility]. SIGNATURE: ALEX Davalos PATIENT NAME: Azalea Mott [...] 11/21/2011 03/28/2016 Thickened endometrium [R93.89] 12/05/2011 03/28/2016 Laurel of foot [L84] 08/17/2013 03/28/2016 Primary osteoarthritis of right hip [M16.11] 08/09/2015 Arthritis of right hip [M16.11] 08/09/2015 10/24/2020 Hyperlipidemia LDL goal <100 [E78.5] 01/18/2016 Hypertension, essential [I10] 01/02/2020 SIOBHAN on CPAP [G47.33] 01/27/2020 Obesity, Class I, BMI 30-34.9 [E66.811] 10/25/2020 Chronic kidney insufficiency, stage 3 (moderate*08/25/2023 Impaired fasting glucose [R73.01] 04/06/2023 Venous insufficiency [I87.2] 09/02/2023 Encounter Status:Closed by EVARISTO PATE on 06/06/24 [facility] 05-12-2024 [facility] Telephone (ORTHMN) AZALEA MOTT ([id number]) 1950 F Date Time Provider Department 05/12/24 LUIGI HULL During your visit today, we recorded the following information about you: Luigi Hull LISW 05/12/2024 10:26 AM Signed [facility] called patient to offer participation in [facility]. This patient has agreed to participate in our [facility] Appt. on (05/31/24) at [facility]. Surgeon: Rubio DOS: 06/30/24 SIGNATURE: REYNALDO Bailey -Morgan DATE: May 12, 2024 TIME: 10:19 AM Allergies As of Date: 05/12/2024 Noted Allergy Reaction NORCO (HYDROCODONE-ACETAMINO PHEN) 10/24/2020 14 - Other: See Comments Comments: Weird dreams. Date Reviewed: 05/11/2024 Reviewed by: Frida Bourgeois LPN - Fully Assessed Reason for Visit: [employer] Teammate - Other [3602] Prescriptions as of 05/12/2024 - atorvastatin (LIPITOR) [...] 11/21/2011 03/28/2016 Thickened endometrium [R93.89] 12/05/2011 03/28/2016 Laurel of foot [L84] 08/17/2013 03/28/2016 Primary osteoarthritis [...] Status:Closed by LUIGI HULL on 05/12/24 Normal [facility] CNOVon 05-11-2024 CNOV Office Visit (ORMDNA ) AZALEA MOTT ([id number]) 1950 F Date Time Provider Department 05/11/24 10:40 AM ELIGIO BERGERON During your visit today, we recorded the following information about you: Eligio Bergeron MD 05/11/2024 10:41 AM Signed CONSULT ORTHOPAEDIC: HIP PRIMARY CARE PHYSICIAN: Navdeep Holcomb MD REFERRING PROVIDER: Bryan Linda [address] [facility] [address] ASSESSMENT AND PLAN This is a 74-year-old [...] Evaluation. The surgery will be scheduled for [facility]. Surgery: R Kvng Posterior SYLVESTER DVT ppx: ASA Abx: Ancef TXA: IV Eligio Bergeron MD Impression: Right Hip Severe Degenerative Osteoarthritis, [...] below. Surgery Details Date and Location: At [place] . Implants: Ulmon Robotic: Yes The risks and benefits of [...] including metal or ceramic with cross-linked polyethylene, hfkvduf-et-ffemwkc and qakgd-ow-zqrqj as well as advantages and disadvantages of [...] of DV (more content not included)... Normal [facility] XR LUMBAR SPECIFY 1Von 05-11 XR LUMBAR [...] pars defects. No fracture or significant subluxation. Head Of Music: [facility] Transcribe Date/Time: May 13 2024 3:27P Dictated by : MARLYN BARR MD This examination was interpreted and the report reviewed and electronically signed by: MARLYN BARR MD on May 13 2024 3:28PM EST [id number] [facility]s Psych[facility] XR LUMBAR SPECIFY 1V * * *Final Report* * * DATE OF EXAM: May 11 2024 10:54AM MDHermes 5234 - XR LUMBAR SPECIFY 1V / [...] pars defects. No fracture or significant subluxation. Head Of Music: ARI Transcribe Date/Time: May 13 2024 3:27P Dictated by : MARLYN BARR MD This examination was interpreted and the report reviewed and electronically signed by: MARLYN BARR MD on May 13 2024 3:28PM EST [id number] CNOVon 04-22-2024 CNOV Office Visit (FRFHWS ) AZALEA MOTT ([id number]) 1950 F Date Time Provider Department 04/22/24 11:00 AM BRYAN LINDAWS During your visit today, we recorded the [...] SERVICE DATE: April 22, 2024 PCP: Navdeep Holcomb MD Subjective Patient ID: Azalea is a [...] FLX DX W/COLLJ SPEC WHEN PFRMD 02/13/2017 GTE-Ytwgl-txjnzn 10 years HYSTEROSCOPY BX W/WO DANDC 12/2011 [...] No Drug use: No ALLERGIES Allergen Reactions [place] [Hydrocodone-* Other: See Comments Weird dreams. MEDICATIONS: [...] , filt (more content not included)... Normal [facility] CNTHERAPYon 04-14-2024 CNTHERAPY OT/PT/Speech Visit (PTWS) AZALEA MOTT ([id number]) 1950 F Date Time Provider Department 04/14/24 12:30 PM PEGGY PHILLIPS PTESE Date Time Provider Department Center 04/14/2024 12:30 PM [id number], SEAN PTWS Jennifer Eugene Reason for Visit: PT Discharge [752] [...] MULTIVITAMIN TAB) Take one(1) tablet daily. Normal [facility] ([id number]) 1950 F Date Time Provider Department 04/04/24 NAVDEEP HOLCOMB INTGILDARDO During your visit today, we recorded the following information about you: Neeta Foster LPN 04/04/2024 12:47 PM Signed ----- Message from Navdeep Holcomb MD sent at 04/04/2024 8:38 AM EST ----- Result reviewed. Start nitrofurantoin 100 mg twice daily x 7 days for urinary tract infection. Neeta Foster LPN 04/04/2024 12:50 PM Signed Patient notified of below recommendation, pharmacy has already contact the Patient that Macrobid RX is ready for pickup. Neeta Foster LPN Allergies As of Date: 04/04/2024 Noted [...] 11/21/2011 03/28/2016 Thickened endometrium [R93.89] 12/05/2011 03/28/2016 Laurel of foot [L84] 08/17/2013 03/28/2016 Primary osteoarthritis of right hip [M16.11] 08/09/2015 Arthritis of right hip [M16.11] 08/09/2015 10/24/2020 Hyperlipidemia LDL goal <100 [E78.5] 01/18/2016 Hypertension, essential [I10] 01/02/2020 SIOBHAN on CPAP [G47.33] 01/27/2020 Obesity, Class I, BMI 30-34.9 [E66.811] 10/25/2020 Chronic kidney insufficiency, stage 3 (moderate*08/25/2023 Impaired fasting glucose [R73.01] 04/06/2023 Venous insufficiency [I87.2] 09/02/2023 Encounter Status:Closed by NEETA FOSTER on 04/04/24 [facility] CNTHERAPYon 04-04-2024 CNTHERAPY OT/PT/Speech Visit (PTWS) AZALEA MOTT ([id number]) 1950 F Date Time Provider Department 04/04/24 2:45 PM SRAVANI FELIX Date Time Provider Department [place] 04/04/2024 2:45 PM [id number], MARIAH PTESE Eugene Reason for Visit: Physical Therapy [503] [...] MULTIVITAMIN TAB) Take one(1) tablet daily. Normal [facility] Bacteria Ur Culton 5 Bacteria identified Cx [...] , Intermediate >32 , Resistant >64 Abnormal [facility] Comment on above: Performed By: #### 6 30-4 ####[facility] [id number] [place] [id number] [place] CNOVon 03-31-2024 CNOV Office Visit (INTMWS ) AZALEA MOTT ([id number]) 1950 F Date Time Provider Department 03/31/24 6:20 PM NAVDEEP HOLCOMB INTMWS During your visit today, we recorded the following information about you: Temperature Pulse Respiration Blood pressure 98.2 degrees 71/minute 14/minute 136/72 Weight Height 98.5 kg 1.702 m Navdeep Holcomb MD 03/31/2024 6:28 PM Signed This note was created using KnowReriter. Subjective Patient presents with: Same Day Appointment: [...] URINE (POC) - BACTERIAL CULTURE, URINE Navdeep Holcomb MD Allergies As of Date: 03/31/2024 Noted Allergy Reaction NORCO (HYDROCODONE-ACETAMINO PHEN) 10/24/2020 14 - Other: See Comments Comments: Tia sylvester. Date Reviewed: 03/31/2024 Reviewed by: Emily Bronson LPN - Fully Assessed Reason for Visit: Same Day Appointment [255] Cmt: possible UTI x 1 day, burning and frequency and blood Primary Visit Diagnosis:Dysuria [R30.0] Order(s):UA DIP, URINE (POC) [[id number]] Order #: [id number] #:[id number] BACTERIAL CULTURE, URINE [SQURCUL] Order #: [id number]. #:[id number] Prescriptions as of 03/31/2024 - atorvastatin (LIPITOR) 10 mg tablet Take 1 tablet by mouth daily at bedtime. For cholesterol. - meloxicam (MOBIC) 15 mg tablet Take 1 tablet by mouth once daily. - lisinopril (ZESTRIL) 10 mg tablet Take 1 tablet by mouth once daily. - hydroCHLOROthiazide 25 mg tablet Take 1 tablet (more content not included)... Normal [facility] UA DIP, URINE (POC)on 2024 BILIRUBIN UA (POCT) Negative Negative [facility] CLARITY UA (POCT) Cloudy [facility] COLOR UA (POCT) Yellow [facility] GLUCOSE UA (POCT) Negative Negative mg/dL [facility] Hemoglobin Ql (U) Moderate Abnormal Negative [facility] Interpretation and review of laboratory results Abnormal [facility] KETONE UA (POCT) Negative Negative mg/dL [facility] LEUKOCYTES UA (POCT) Small Abnormal Negative [facility] NITRITE UA (POCT) Negative Negative [facility] PH UA (POCT) 7.0 4.5 - 8.0 [facility] Protein Ql (U) 100 mg/dL Abnormal Negative [facility] SPECIFIC GRAVITY UA (POCT) >=1.030 1.005 - 1.030 [facility] UROBILINOGEN UA (POCT) 0.2 Blanca l E.U./dL [facility] Location:[address], [place], [place], [id number] [place] [address] POINT OF CARE [facility] CNTHERAPYon 03-28-2024 CNTHERAPY OT/PT/Speech Visit (PTWS) AZALEA MOTT ([id number]) 1950 F Date Time Provider Department 03/28/24 2:45 PM PEGGY PHILLIPS Date Time Provider Department Center 03/28/2024 2:45 PM [id number] PHILLIPS Jennifer Abhi Reason for Visit: Physical Therapy [503] Primary [...] multivitamins(DAILY MULTIVITAMIN TAB) Take one(1) tablet daily. Analog Circuit Designer: Addendum Therapy (PT/OT/Speech/Resp) ID: [id number] 03/28/2024 3:21 PM Author: PEGGY PHILLIPS Signed by PEGGY PHILLIPS PT on 03/28/2024 at 3:21 PM * * * This document replaces document [id number] * * * Document text: Program_ID:[id number] Access Code: [email or web address] URL: [email or web address]/ Date: 03-28-2024 Prepared By: Peggy Phillips Program [...] 3 sets - 10 reps -- Normal [facility] THERAPY NTon 03-28-2024 THERAPY NT HNO ID: [id number] Author: PEGGY PHILLIPS PT Service: ? Author Type: Physical Therapist Type: Therapy (PT/OT/Speech/Resp) Filed: 03/28/2024 15:21 Note Text: Program_ID:[id number] Access Code: [email or web address] URL: [email or web address]://[email or web address] hospital[facility]/ Date: 03-28-2024 Prepared By: Peggy Phillips Program [...] - 3 sets - 10 reps Normal [facility] CNTHERAPYon 03-21-2024 CNTHERAPY OT/PT/Speech Visit (PTWS) AZALEA MOTT ([id number]) 1950 F Date Time Provider Department 03/21/24 2:45 PM SRAVANI FELIX PTESE Date Time Provider Department Center 03/21/2024 2:45 PM [id number], MARIAH PTWS Jennifer Eugene Reason for Visit: Physical Therapy [503] [...] multivitamins(DAILY MULTIVITAMIN TAB) Take one(1) tablet daily. Analog Circuit Designer: Therapy (PT/OT/Speech/Resp) ID: [id number] 03/21/2024 3:18 PM Author: SRAVANI FELIX Signed by SRAVANI FELIX KILN PACKER on 03/21/2024 at 3:19 PM Document text: Program_ID:[id number] Access Code: [email or web address] URL: [email or web address] [employer]/ Date: 03-21-2024 Prepared By: Peggy Phillips Program [...] 1 sets - 3 reps -- Normal [facility] THERAPY NTon 03-21-2024 THERAPY NT HNO ID: [id number] Author: SRAVANI FELIX PTA Service: ? Author Type: Housing Counselor Type: Therapy (PT/OT/Speech/Resp) Filed: 03/21/2024 15:19 Note Text: Program_ID:[id number] Access Code: [email or web address] URL: [email or web address] [employer]/ Date: 03-21-2024 Prepared By: Peggy Phillips Program [...] - 1 sets - 3 reps Normal [facility] Carlie 03-15-2024 JOHN Telephone (4CQ) AZALEA MOTT ([id number]) 1950 F Date Time Provider Department 03/15/24 BRYAN LINDA V 4CQ During your visit today, we recorded the following information about you: Bettie Thayer 03/15/2024 10:50 AM Signed Pt stated her prescription was sent to [facility]. She asked to have this switched to [facility]. Please advise. Thank you Allergies [...] 11/21/2011 03/28/2016 Thickened endometrium [R93.89] 12/05/2011 03/28/2016 [place] of foot [L84] 08/17/2013 03/28/2016 Primary osteoarthritis [...] by BRYAN LINDA V on 03/15/24 Normal [facility] [id number] 03-14-2024 [id number] HNO ID: [id number] Author: PEGGY PHILLIPS PT Service: ? Author Type: Physical Therapist Type: [id number] Filed: 03/14/2024 13:20 Note Text: [facility] Physical Therapy Plan of Care Certification Patient Name: Azalea Mott : 1950 CCF #: [id number] Date: 03/14/2024 To: Bryan Linda V, DO [...] Goals for Episode of Care: established 03/14/24 [place] in home exercise program. Patient will decrease [...] Planned: 8 Planned Treatment Interventions: Therapeutic exercise (16907), Neuromuscular re-education (45347), Manual therapy (96760), Therapeutic activities (59349), Self-usp management (37948), Gait Training (35506), Patient/Family/Caregiv er Education, Body Mechanics Training PLAN [...] I have reviewed the treatment plan for Aazlea Mott, CCF# [id number] for the period of 03/14/24 -- 05/12/24, established on 03/14/2024. Signature certifies the need for therapy services. Normal [facility] CNTHERAPYon 03-14-2024 CNTHERAPY OT/PT/Speech Visit (PTWS) AZALEA MOTT ([id number]) 1950 F Date Time Provider Department 03/14/24 11:30 AM PEGGY PHILLIPS PTWS Date Time Provider Department Center 03/14/2024 11:30 AM [id number], SEAN PTESE Eugene Reason for Visit: PT [...] multivitamins(DAILY MULTIVITAMIN TAB) Take one(1) tablet daily. Analog Circuit Designer: Addendum Therapy (PT/OT/Speech/Resp) ID: [id number] 03/14/2024 12:07 PM Author: PEGGY PHILLIPS Signed by PEGGY PHILLIPS PT on 03/14/2024 at 12:07 PM * * * This document replaces document [id number] * * * Document text: Program_ID:[id number] Access Code: [email or web address] URL: [email or web address]/ Date: 03-14-2024 Prepared By: Peggy Phillips Program [...] 3 sets - 10 reps -- Normal [facility] THERAPY NTon 03-14-2024 THERAPY NT HNO ID: [id number] Author: PEGGY PHILLIPS PT Service: ? Author Type: Physical Therapist Type: Therapy (PT/OT/Speech/Resp) Filed: 03/14/2024 12:07 Note Text: Program_ID:[id number] Access Code: [email or web address] URL: [email or web address]://[email or web address]/ Date: 03-14-2024 Prepared By: Peggy Phillips Program [...] - 3 sets - 10 reps Normal [facility] JOEL SCREENING W TOMOon 02-21 JOEL SCREENING W DIALLO * * *Final Report* * * DATE OF EXAM: Feb 22 2024 11:28AM [facility] 0582 - JOEL SCREENING W DIALLO / PROCEDURE REASON: Encounter for screening mammogram for breast cancer * * * * Physician Interpretation * * * * RESULT: [place] [id number] #[id number] - JOEL SCREENING W DIALLO HISTORY: Patient [...] has dense breast tissue. Interpreting Radiologist: Gaby Willis M.D. Electronically signed on: 02/23/2024 Head Of Music: HARMAN Transcribe Date/Time: Feb 22 2024 11:18A Dictated by: GABY WILLIS MD This examination was interpreted and the report reviewed and electronically signed by: GABY WILLIS MD on Feb 23 2024 9:17AM EST [id number] Normal [facility] CNOVon 02-17-2024 CNOV Office Visit (FRWS ) AZALEA MOTT ([id number]) 1950 F Date Time Provider Department 02/17/24 1:30 PM BRYAN LINDA V FRWS During your visit today, we recorded the following information about you: Buffy Couch MA 02/17/2024 2:13 PM Signed Patient presents with: OA right hip AMB ROOMING INTAKE FLOWSHEET DATA Patient denies any pain today. States it is getting harder to getting out of the car and a chair. Going up and down steps one step at time. Referred by Mary Boston. X-rays done on 01/27/24. Bryan Linda V, DO 02/17/2024 2:13 PM Signed SERVICE DATE: February 17, 2024 PCP: Navdeep Holcomb MD Subjective Patient ID: Azalea is a [...] FLX DX W/COLLJ SPEC WHEN PFRMD 02/13/2017 AJU-Kzomq-jghvym 10 years HYSTEROSCOPY BX W/WO DANDC 12/2011 [...] No Drug use: No ALLERGIES Allergen Reactions [place] [Hydrocodone-* Other: See Comments Weird dreams. MEDICATIONS: [...] Allergies, medica (more content not included)... Normal [facility] CNOVon 01-27-2024 CNOV Office Visit (INTMWS ) AZALEA MOTT ([id number]) 1950 F Date Time Provider Department 01/27/24 11:00 AM MARY BOSTON INTMWS During your visit today, we recorded the following information about you: Pulse Respiration Blood pressure Weight 60/minute 14/minute 124/78 98.8 kg Height 1.702 m Mary Boston, 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 01/27/2024 1:16 PM Signed Azalea Mott is a 74 year old [...] Current care team: Patient Care Team: Navdeep Holcomb MD as PCP - General (Internal Medicine) [...] patient education handout with this information from [email or web address] - XR HIP GENERAL 3V PELV/AP/LAT RIGHT 3. Hypertension, essential - ICD9: 401.9, ICD10: I10 - Controlled - Continue current medications - Recommend home blood pressure monitoring, to b (more content not included)... Normal [facility] XR HIP 3V PELV+ AP/LAT RTon 01-27-2024 [...] IMPRESSION: Moderate to severe right hip osteoarthritis. Head Of Music: RACHELLE Transcribe Date/Time: Jan 31 2024 6:01P Dictated by : FREEMAN DALLAS MD This examination was interpreted and the report reviewed and electronically signed by: FREEMAN DALLAS MD on Jan 31 2024 6:02PM EST [id number] Normal [facility] Comprehensive metabolic 2000 panelon 01-18-2024 Albumin [Mass/Vol] 4.3 g/dL Normal 3.9-4.9 [facility] Comment on above: Order Comment: Speci men Type: BLOOD SPECIMEN Ordering Facility: [facility] Address: [address] [place] [address] Performed By: #### 2 4323-8, 87071-9 #### [facility] CLIA [id number] [address] [place] [address] [place] ALP [Catalytic activity/Vol] 84 U/L Normal 34-123 [facility] Comment on above: Order Comment: Speci men Type: BLOOD SPECIMEN Ordering Facility: [facility] Address: [address] [place] [address] Performed By: #### 2 4323-8, 89877-1 #### [facility] CLIA [id number] [address] [place] [address] [place] ALT [Catalytic activity/Vol] 20 U/L Normal 7-38 [facility] Comment on above: Order Comment: Speci men Type: BLOOD SPECIMEN Ordering Facility: [facility] Address: [address] [place] [address] Performed By: #### 2 4323-8, 29119-3 #### [facility] CLIA [id number] [address] [place] [address] [place] Anion gap [Moles/Vol] 8 mmol/L Normal 8-15 [facility] Comment on above: Order Comment: Speci men Type: BLOOD SPECIMEN Ordering Facility: [facility] Address: [address] [place] [address] Performed By: #### 2 4323-8, 29876-4 #### [facility] CLIA [id number] [facility] [place] [address] [place] AST [Catalytic activity/Vol] 20 U/L Normal 13-35 [facility] Comment on above: Order Comment: Speci men Type: BLOOD SPECIMEN Ordering Facility: [facility] Address: [address] [place], [place] [address] Performed By: #### 2 4323-8, 38509-0 #### [facility] CLIA [id number] [address] [place] [address] [place] Bilirubin [Mass/Vol] 0.5 mg/dL Normal 0.2-1.3 [facility] Comment on above: Order Comment: Speci men Type: BLOOD SPECIMEN Ordering Facility: [facility] Address: [address] [place] [address] Performed By: #### 2 4323-8, 50086-8 #### [facility] CLIA [id number] [address] [place] [address] [place] Calcium [Mass/Vol] 10.1 mg/dL Normal 8.5-10.2 [facility] Comment on above: Order Comment: Speci men Type: BLOOD SPECIMEN Ordering Facility: [facility] Address: [address] [place] [address] Performed By: #### 2 4323-8, 28269-3 #### [facility] CLIA [id number] [address] [place] [address] [place] Chloride [Moles/Vol] 102 mmol/L Normal 98-107 [facility] Comment on above: Order Comment: Speci men Type: BLOOD SPECIMEN Ordering Facility: [facility] Address: [address] [place] [address] Performed By: #### 2 4323-8, 39175-8 #### [facility] CLIA [id number] [address] [place] [address] [place] CO2 [Moles/Vol] 30 mmol/L Normal 22-30 [facility] Comment on above: Order Comment: Speci men Type: BLOOD SPECIMEN Ordering Facility: [facility] Address: [address] [place] [address] Performed By: #### 2 4323-8, 16288-8 #### [facility] CLIA [id number] [address] [place] [address] [place] Creatinine [Mass/Vol] 1.03 mg/dL High 0.58-0.96 [facility] Comment on above: Order Comment: Speci men Type: BLOOD SPECIMEN Ordering Facility: [facility] Address: [address] [place] [address] Performed By: #### 2 4323-8, 48039-9 #### [facility] CLIA [id number] [address] [place] [address] [place] Creatinine and Glomerular filtration rate.predicted panel (S/P/Bld) 58 mL/min/1.73m??? Low >=60 [facility] Comment on above: Order Comment: David del real Type: BLOOD SPECIMEN Ordering Facility: [facility] Address: [address] [place] [address] Result Comment: Jessica mated Glomerular Filtration Rate [...] actual GFR. Performed By: #### 2 4323-8, 13094-1 #### [facility] CLIA [id number] [address] [place] [address] [place] Glucose [Mass/Vol] 115 mg/dL High 74-99 [facility] Comment on above: Order Comment: David del real Type: BLOOD SPECIMEN Ordering Facility: [facility] Address: [address] [place] [address] Result Comment: The [place] Diabetes Association (ADA) provides guidance for cutoff [...] Standards of Medical Care in Diabetes 2016, [place] Diabetes Association. Diabetes Care. 2016.39(Suppl 1). Performed By: #### 2 4323-8, 49476-7 #### [facility] CLIA [id number] [address] [place] [address] [place] Potassium [Moles/Vol] 4.0 mmol/L Normal 3.7-5.1 [facility] Comment on above: Order Comment: Speci men Type: BLOOD SPECIMEN Ordering Facility: [facility] Address: [address] [place] [address] Performed By: #### 2 4323-8, 75714-0 #### [facility] CLIA [id number] [address] [place] [address] [place] Protein [Mass/Vol] 7.2 g/dL Normal 6.3-8.0 [facility] Comment on above: Order Comment: Speci men Type: BLOOD SPECIMEN Ordering Facility: [facility] Address: [address] [place] [address] Performed By: #### 2 4323-8, 08895-6 #### [facility] CLIA [id number] [address] [place] [address] [place] Sodium [Moles/Vol] 140 mmol/L Normal 136-144 [facility] Comment on above: Order Comment: Speci men Type: BLOOD SPECIMEN Ordering Facility: [facility] Address: [address] [place] [address] Performed By: #### 2 4323-8, 45603-2 #### [facility] CLIA [id number] [address] [place] [address] [place] Urea nitrogen [Mass/Vol] 22 mg/dL High 7-21 [facility] Comment on above: Order Comment: Speci men Type: BLOOD SPECIMEN Ordering Facility: [facility] Address: [address] [place] [address] Performed By: #### 2 4323-8, 82727-4 #### [facility] CLIA [id number] [address] [place] [address] [place] Lipid 1996 panelon 4 Cholesterol [Mass/Vol] 122 mg/dL Normal <200 [facility] Comment on above: Order Comment: Dallasi men Type: BLOOD SPECIMEN Ordering Facility: [facility] Address: [address] [place] [address] Result Comment: <200 mg/dL, Desirable 200-239 mg/dL, Borderline high >239 mg/dL, High Performed By: #### 2 4323-8, 87571-2 #### [facility] CLIA [id number] [address] [place] [address] [place] Cholesterol in HDL [Mass/Vol] 45 mg/dL Normal >39 [facility] Comment on above: Order Comment: David del real Type: BLOOD SPECIMEN Ordering Facility: [facility] Address: [address] [place] [address] Result Comment: 40-5 9 mg/dL, Acceptable >59 mg/dL, High: Negative risk factor for coronary heart disease <40 mg/dL, Low: Positive risk factor for coronary heart disease Performed By: #### 2 4323-8, 55824-2 #### [facility] CLIA [id number] [address] [place] [address] [place] Cholesterol in LDL [Mass/Vol] 56 mg/dL Normal <100 [facility] Comment on above: Order Comment: Speci men Type: BLOOD SPECIMEN Ordering Facility: [facility] Address: [address] [place] [address] Result Comment: <100 mg/dL, Optimal 100-129 mg/dL, Near optimal/above optimal 130-159 mg/dL, Borderline high 160-189 mg/dL, High >189 mg/dL, Very high Secondary prevention optimal LDL Cholesterol levels are recommended to be < 70 mg/dL Performed By: #### 2 4323-8, 44298-6 #### [facility] CLIA [id number] [address] [place] [address] [place] Cholesterol in LDL/Cholesterol in HDL [Mass ratio] 1.24 {ratio} Normal <2.54 [facility] Comment on above: Order Comment: David del real Type: BLOOD SPECIMEN Ordering [facility]: [facility] Address: [address] [place] [address] Result Comment: Danica lara: 1. National Cholesterol Education Program ATP III Guideline At-A-Glance Quick Desk Reference: National Heart, Lung, and Blood [place]. National Institutes of Health. 2001: NIH Publication No. 01-3305. 2. An International Atherosclerosis Society position paper: global recommendations for the management of dyslipidemia: executive summary, Atherosclerosis. 2014: 232(2):410-413. Performed By: #### 2 4323-8, 07115-5 #### [facility] CLIA [id number] [address] [place] [address] [place] Cholesterol in VLDL [Mass/Vol] 21 mg/dL Normal <30 [facility] Comment on above: Order Comment: David del real Type: BLOOD SPECIMEN Ordering Facility: [facility] Address: [address] [place] [address] Performed By: #### 2 4323-8, 12220-5 #### [facility] CLIA [id number] [address] [place] [address] [place] Cholesterol non HDL [Mass/Vol] 77 mg/dL Normal <130 [facility] Comment on above: Order Comment: David del real Type: BLOOD SPECIMEN Ordering Facility: [facility] Address: [address] [place] [address] Result Comment: <130 mg/dL, Optimal 130-159 mg/dL, Near optimal/above optimal 160-189 mg/dL, Borderline high 190-219 mg/dL, High >219 mg/dL, Very high Secondary prevention optimal non HDL Cholesterol levels are recommended to be <100 mg/dL Performed By: #### 2 4323-8, 35394-9 #### [facility] CLIA [id number] [address] [place] [address] [place] Cholesterol.total/Choles terol in HDL [Mass ratio] 2.71 {ratio} Normal <5.10 [facility] Comment on above: Order Comment: Speci men Type: BLOOD SPECIMEN Ordering Facility: [facility] Address: [address] [place] [address] Performed By: #### 2 4323-8, 28429-5 #### [facility] CLIA [id number] [address] [place] [address] [place] FASTING TIME 12 hrs Normal [facility] Comment on above: Order Comment: Speci men Type: BLOOD SPECIMEN Ordering Facility: [facility] Address: [address] [place] [address] Performed By: #### 2 4323-8, 30988-4 #### [facility] CLIA [id number] [address] [place] [address] [place] Triglyceride [Mass/Vol] 107 mg/dL Normal <150 [facility] Comment on above: Order Comment: Speci men Type: BLOOD SPECIMEN Ordering Facility: [facility] Address: [address] [place] [address] Result Comment: <150 mg/dL, Normal 150-199 mg/dL, Borderline high 200-499 mg/dL, High >499 mg/dL, Very high Performed By: #### 2 4323-8, 62767-0 #### [facility] CLIA [id number] [address] [place] [address] [place] CNOVon 01-12-2024 CNOV Office Visit (DERSIN ) AZALEA MOTT ([id number]) 1950 F Date Time Provider Department 01/12/24 [...] patient, understanding verbalized. OK to release to [facility] 2. Seborrheic Keratoses Reassurance on benign nature [...] clinical/operative note independently gathered by the clinical academic support assistant and Resident and the remaining scribed note accurately describes my personal service to the patient. MD Crystal Young Lesia C, RN 01/12/2024 9:29 AM Signed CARE OF [...] or concerns, please contact the office at [phone] [phone] or [phone]. For emergencies after 4:30 please call [phone] and ask for the surgical dermatology fellow on (more content not included)... Normal [facility] SURGICAL PATHOLOGYon CASE REPORT Normal [facility] Comment on above: Order Comment: Speci men Type: TISSUE SPECIMENOrdering Facility: [facility] Address: [address] [place] [address] Result Comment: Surg ical Pathology Report Case: [id number] Authorizing Provider: Bethany Hodges MD Collected: 01/12/2024 09:24 AM Ordering Location: Dermatology Received: 01/13/2024 11:40 AM Pathologist: Edwardo Costa MD, PhD Specimen: Skin, Shave Biopsy, mid back Performed By: #### S ####[facility] [id number] [place] [address] [place] CLINICAL HISTORY r/o NMSC vs ISK [facility] Comment on above: Order Comment: Speci men Type: TISSUE SPECIMENOrdering Facility: [facility] Address: [address] [place] [address] Performed By: #### S ####[facility] [id number] [place] [address] [place] FINAL DIAGNOSIS Normal [facility] Comment on above: Order Comment: Speci men Type: TISSUE SPECIMENOrdering Facility: [facility] Address: [address] [place] [address] Result Comment: A. S kin, mid back, shave biopsy: -Neurofibroma. AF/EK 01/14/24 Performed By: #### S ####[facility] [id number] [place] [address] [place] FINAL PERFORMING LAB Normal [facility] Comment on above: Order Comment: Speci men Type: TISSUE SPECIMENOrdering Facility: [facility] Address: [address] [place] [address] Result Comment: Diag nostic interpretation performed at [facility], [address] [place] [address] CLIA# [id number] Rail Car Mechanic: Ron Benson M.D. Performed By: #### S ####[facility] [id number] [place] [address] [place] GROSS DESCRIPTION Normal [facility] Comment on above: Order Comment: Speci men Type: TISSUE SPECIMENOrdering Facility: [facility] Address: [address] [place] [address] Result Comment: A. S kin, Shave Biopsy Received in formalin is a 0.7 x 0.6 x 0.2 cm shave of skin. On the skin surface there is a 0.3 cm balderas-white, slightly elevated area. The specimen is bisected. Totally submitted in one cassette. DB January 13, 2024 1:31 PM Gross examination performed at [facility], [address] [place] [address] Performed By: #### S ####[facility] [id number] [place] [address] [place] CBC panel Auto (Bld)on 08-24 Erythrocyte distribution width (RBC) [Ratio] 12.4 % 11.5 - 15.0 % [facility] Hematocrit (Bld) [Volume fraction] 40.4 % 36.0 - 46.0 % [facility] Hemoglobin (Bld) [Mass/Vol] 13.4 g/dL 11.5 - 15.5 g/dL [facility] Interpretation and review of laboratory results Normal [facility] MCH (RBC) [Entitic mass] 29.7 pg 26. 0 - 34.0 pg [facility] MCHC (RBC) [Mass/Vol] 33.2 g/dL 30.5 - 36.0 g/dL [facility] MCV (RBC) [Entitic vol] 89.6 fL 80.0 - 100.0 fL [facility] Nucleated RBC (Bld) [#/Vol] NINF [facility] Platelet mean volume (Bld) [Entitic vol] 11.8 fL 9.0 - 12.7 fL [facility] Platelets (Bld) [#/Vol] 234 10*3/uL [facility] RBC (Bld) [#/Vol] 4.51 10*6/uL 3.90 - 5.2 0 m/uL [facility] WBC (Bld) [#/Vol] 8.40 10*3/uL [facility] THYROID STIMULATING HORMONEo n 08-25-2023 TSH Qn 1.690 m[IU]/L [facility] TSH Qnon 08-25-2023 Interpretation and review of laboratory results Normal [facility] JOEL SCREENINGon 02-19-2022 [facility] XR CHEST 2V FRONTAL/LATon [facility] XR Chest PA and Lateralon IMPRESSION: No acute radiographic abnormality. Head Of Music: RACHELLE Transcribe Date/Time: Aug 14 2021 2:29P Dictated by : BETTIE ZHANG MD This examination was interpreted and the report reviewed and electronically signed by: BETTIE ZHANG MD on Aug 14 2021 2:30PM EST ZZZ_DO_NOT_U SE_DIVISION OF RADIOLOGY * * *Final Report* * [...] silhouette. Bones and soft tissues: Unremarkable. ZZZ_DO_NOT_U SE_DIVISION OF RADIOLOGY Provider, [facility] - 08/14/2021 * * *Final Report* * [...] Unremarkable. IMPRESSION IMPRESSION: No acute radiographic abnormality. Head Of Music: PSCB Transcribe Date/Time: Aug 14 2021 2:29P Dictated by : BETTIE ZHANG MD This examination was interpreted and the report reviewed and electronically signed by: BETTIE ZHANG MD on Aug 14 2021 2:30PM EST [facility] Radiology Study observation (narrative) [facility] XR Chest PA and LateralOrder ed By: [facility] Provider on 08-14-2021 [facility] PROGRESSon 06-20-2020 PROGRESS HNO ID: [id number] Author: Teresa Arreaga Service: ? Author Type: Nurse Practitioner Type: Progress Notes Filed: 06/21/2020 9:50 AM Note Text: [facility] New Patient Evaluation Visit performed virtually, with the patient's permission. PATIENT NAME: Azalea Mott DATE OF SERVICE: June 20, 2020 CONSULTING PROVIDER: Parth Oropeza III MD [id number] [facility] [id number] REASON FOR VISIT: SIOBHAN HPI: Azalea Mott [...] Laterality Date - COLONOSCOP W/ OR W/O [facility] SPEC 10-18-04 Colonoscopy-repeat in - COLONOSCOP W/ OR W/O [facility] SPEC 02/13/2017 [id number]-[id number]-[id number] 10 years - HYSTEROSCOPY BX W/WO [place] 12/2011 endometrial polyp - L'SCOPE DX W/WO [...] a download. - Continue Auto CPAP at [id number]. - 30 day download request. I will [...] me or sooner if needed. Teresa Arreaga APRN.CIRCLE BEVELER I spent a total of 45 minutes [...] of nights per week. Current setting of [id number] is controlling SIOBHAN well (residual AHI 0.7). Mrs. Mott is compliant. Will notify Mrs. Mott of download via TOVA. Teresa Arreaga APRN.CIRCLE BEVELER Normal [facility] Vital Signs Date Time Vital Sign Value Performing Clinician Sidney sandhu 11-02-2024 13:20-0400 Body height 167.[address] New Bear MD Work Phone: [facility] 11-02-2024 13:20-0400 Body mass index (BMI) [Ratio] 33.9 kg/m2 Dr. New Bear MD Work Phone: [facility] 11-02-2024 13:20-0400 Body weight 95.[address] New Bear MD Work Phone: [facility] 11-02-2024 13:20-0400 Diastolic blood pressure 77 mm[Hg] Dr. New Bear MD Work Phone: [facility] 11-02-2024 13:20-0400 Heart rate 74 /min Dr. New Bear MD Work Phone: [facility] 11-02-2024 13:20-0400 Respiratory rate 16 /min Dr. New Bear MD Work Phone: [facility] 11-02-2024 13:20-0400 SaO2% (BldA) [Mass fraction] 99 % Dr. New Bear MD Work Phone: [facility] 11-02-2024 13:20-0400 Systolic blood pressure 125 mm[Hg] Dr. New Bear MD Work Phone: [facility] 10-25-2024 10:38-0400 Body mass index (BMI) [Ratio] 34.09 kg/m2 Navdeep Holcomb MD Work Phone: [facility] 10-25-2024 10:38-0400 Body temperature 98.29 [degF] Navdeep Holcomb MD Work Phone: [facility] 10-25-2024 10:38-0400 Body weight 95.8 kg Navdeep Holcomb MD Work Phone: [address]19-2025 10:38-0400 Diastolic blood pressure 70 mm[Hg] Navdeep Holcomb MD Work Phone: [facility] 10-25-2024 10:38-0400 Heart rate 104 /min Navdeep Holcomb MD Work Phone: [facility] 10-25-2024 10:38-0400 Respiratory rate 20 /min Navdeep Holcomb MD Work Phone: [facility] 10-25-2024 10:38-0400 Systolic blood pressure 114 mm[Hg] Navdeep Holcomb MD Work Phone: [facility] 09-30-2024 14:48-0400 Body height 167.[address] New Bear MD Work Phone: [facility] 09-30-2024 14:48-0400 Body mass index (BMI) [Ratio] 34.2 kg/m2 Dr. New Bear MD Work Phone: [facility] 09-30-2024 14:48-0400 Body weight 96.[address] New Bear MD Work Phone: [facility] 09-30-2024 14:48-0400 Diastolic blood pressure 78 mm[Hg] Dr. New Bear MD Work Phone: [facility] 09-30-2024 14:48-0400 Heart rate 80 /min Dr. New Bear MD Work Phone: [facility] 09-30-2024 14:48-0400 Respiratory rate 16 /min Dr. New Bear MD Work Phone: [facility] 09-30-2024 14:48-0400 Systolic blood pressure 112 mm[Hg] Dr. New Bear MD Work Phone: [facility] 09-13-2024 09:16-0400 Body height 167.[address] New Bear MD Work Phone: [facility] 09-13-2024 09:16-0400 Body mass index (BMI) [Ratio] 35.5 kg/m2 Dr. New Bear MD Work Phone: [facility] 09-13-2024 09:16-0400 Body weight 99.[address] New Bear MD Work Phone: [facility] 09-13-2024 09:16-0400 Diastolic blood pressure 74 mm[Hg] Dr. New Bear MD Work Phone: [facility] 09-13-2024 09:16-0400 Heart rate 66 /min Dr. New Bear MD Work Phone: [facility] 09-13-2024 09:16-0400 Respiratory rate 18 /min Dr. New Bear MD Work Phone: [facility] 09-13-2024 09:16-0400 Systolic blood pressure 131 mm[Hg] Dr. New Bear MD Work Phone: [facility] 09-07-2024 13:24-0400 Body mass index (BMI) [Ratio] 34.41 kg/m2 Navdeep Holcomb MD Work Phone: [facility] 09-07-2024 13:24-0400 Body weight 96.7 kg Navdeep Holcomb MD Work Phone: [facility] 09-07-2024 13:24-0400 Diastolic blood pressure 66 mm[Hg] Navdeep Holcomb MD Work Phone: [facility] 09-07-2024 13:24-0400 Respiratory rate 20 /min Navdeep Holcomb MD Work Phone: [facility] 09-07-2024 13:24-0400 SaO2% (BldA) [Mass fraction] 99 % Navdeep Holcomb MD Work Phone: [facility] 09-07-2024 13:24-0400 Systolic blood pressure 110 mm[Hg] Navdeep Holcomb MD Work Phone: [facility] 09-02-2024 11:33-0400 Body height 167.6 cm Navdeep Holcomb MD Work Phone: [facility] 09-02-2024 11:33-0400 Body mass index (BMI) [Ratio] 34.44 kg/m2 Navdeep Holcomb MD Work Phone: [facility] 09-02-2024 11:33-0400 Body weight 96.8 kg Navdeep Holcomb MD Work Phone: [facility] 09-02-2024 11:33-0400 Diastolic blood pressure 56 mm[Hg] Navdeep Holcomb MD Work Phone: [facility] 09-02-2024 11:33-0400 Heart rate 122 /min Navdeep Holcomb MD Work Phone: [facility] 09-02-2024 11:33-0400 SaO2% (BldA) [Mass fraction] 96 % Navdeep Holcomb MD Work Phone: [facility] 09-02-2024 11:33-0400 Systolic blood pressure 106 mm[Hg] Navdeep Holcomb MD Work Phone: [facility] 08-29-2024 14:56-0400 Body mass index (BMI) [Ratio] 35.62 kg/m2 Navdeep Holcomb MD Work Phone: [facility] 08-29-2024 14:56-0400 Body temperature 97.59 [degF] Navdeep Holcomb MD Work Phone: [facility] 08-29-2024 14:56-0400 Body weight 100.1 kg Navdeep Holcmob MD Work Phone: [facility] 08-29-2024 14:56-0400 Diastolic blood pressure 58 mm[Hg] Navdeep Holcomb MD Work Phone: [facility] 08-29-2024 14:56-0400 Heart rate 56 /min Navdeep Holcomb MD Work Phone: [facility] 08-29-2024 14:56-0400 Respiratory rate 16 /min Navdeep Holcomb MD Work Phone: [facility] 08-29-2024 14:56-0400 SaO2% (BldA) [Mass fraction] 100 % Navdeep Holcomb MD Work Phone: [facility] 08-29-2024 14:56-0400 Systolic blood pressure 116 mm[Hg] Navdeep Holcomb MD Work Phone: [facility] 08-25-2024 19:23-0400 Body temperature 98.2 [degF] Dr. New Bear MD Work Phone: [facility] 08-25-2024 19:23-0400 Diastolic blood pressure 58 mm[Hg] Dr. New Bear MD Work Phone: [facility] 08-25-2024 19:23-0400 Heart rate 46 /min Dr. New Bear MD Work Phone: [facility] 08-25-2024 19:23-0400 Respiratory rate 18 /min Dr. New Bear MD Work Phone: [facility] 08-25-2024 19:23-0400 SaO2% (BldA) [Mass fraction] 98 % Dr. New Bear MD Work Phone: [facility] 08-25-2024 19:23-0400 Systolic blood pressure 133 mm[Hg] Dr. New Bear MD Work Phone: [facility] 08-25-2024 17:02-0400 Body height 167.[address] New Bear MD Work Phone: [facility] 08-25-2024 17:02-0400 Body mass index (BMI) [Ratio] 36.1 kg/m2 Dr. New Bera MD Work Phone: [facility] 08-25-2024 17:02-0400 Body weight 101.[address] New Bear MD Work Phone: [facility] 08-11-2024 11:06-0400 Body height 167.[address] New Bear MD Work Phone: [facility] 08-11-2024 11:06-0400 Body mass index (BMI) [Ratio] 36.8 kg/m2 Dr. New Bear MD Work Phone: [facility] 08-11-2024 11:06-0400 Body weight 103.[address] New Bear MD Work Phone: [facility] 08-11-2024 11:06-0400 Diastolic blood pressure 67 mm[Hg] Dr. New Bear MD Work Phone: [facility] 08-11-2024 11:06-0400 Heart rate 57 /min Dr. New Bear MD Work Phone: [facility] 08-11-2024 11:06-0400 Respiratory rate 18 /min Dr. New Bear MD Work Phone: [facility] 08-11-2024 11:06-0400 Systolic blood pressure 119 mm[Hg] Dr. New Bear MD Work Phone: [facility] 08-09-2024 16:18-0400 Diastolic blood pressure 66 mm[Hg] Pradip Hillman PT Work Phone: [facility] 08-09-2024 16:18-0400 Heart rate 49 /min Pradip Hillman PT Work Phone: [facility] 08-09-2024 16:18-0400 SaO2% (BldA) [Mass fraction] 97 % Pradip Hillman PT Work Phone: [facility] 08-09-2024 16:18-0400 Systolic blood pressure 120 mm[Hg] Pradip Hillman PT Work Phone: [facility] 08-09-2024 16:00-0400 Body temperature 97.9 [degF] Pradip Hillman PT Work Phone: [facility] 08-09-2024 16:00-0400 Respiratory rate 18 /min Pradip Hillman PT Work Phone: [facility] 08-04-2024 12:54-0400 Heart rate 80 /min Leslie Gabi KILN PACKER Work Phone: [facility] Comment on above: after walking 08-04-2024 12:54-0400 SaO2% (BldA) [Mass fraction] 99 % Leslie Gabi KILN PACKER Work Phone: [facility] 08-04-2024 12:15-0400 Body temperature 98.49 [degF] Leslie Gabi KILN PACKER Work Phone: [facility] 08-04-2024 12:15-0400 Diastolic blood pressure 68 mm[Hg] Leslie Gabi KILN PACKER Work Phone: [facility] 08-04-2024 12:15-0400 Respiratory rate 18 /min Leslie Gabi KILN PACKER Work Phone: [facility] 08-04-2024 12:15-0400 Systolic blood pressure 118 mm[Hg] Leslie Gabi KILN PACKER Work Phone: [facility] 08-02-2024 14:15-0400 Diastolic blood pressure 68 mm[Hg] Leslie Gabi KILN PACKER Work Phone: [facility] 08-02-2024 14:15-0400 Heart rate 66 /min Leslie Gabi KILN PACKER Work Phone: [facility] 08-02-2024 14:15-0400 SaO2% (BldA) [Mass fraction] 99 % Leslie Gabi KILN PACKER Work Phone: [facility] 08-02-2024 14:15-0400 Systolic blood pressure 110 mm[Hg] Leslie Gabi KILN PACKER Work Phone: [facility] 08-02-2024 13:43-0400 Body temperature 98.71 [degF] Leslie Gabi KILN PACKER Work Phone: [facility] 08-02-2024 13:43-0400 Respiratory rate 18 /min Lesile Gabi KILN PACKER Work Phone: [facility] 07-25-2024 10:10-0400 Body temperature 98.29 [degF] Odette Gerstenslager O T Work Phone: [facility] 07-25-2024 10:10-0400 Diastolic blood pressure 78 mm[Hg] Odette Gerstenslager OT Work Phone: [facility] 07-25-2024 10:10-0400 Heart rate 98 /min Odette Gerstenslager O T Work Phone: [facility] 07-25-2024 10:10-0400 SaO2% (BldA) [Mass fraction] 99 % Odette Gerstenslager OT Work Phone: [facility] 07-25-2024 10:10-0400 Systolic blood pressure 118 mm[Hg] Odette Gerstenslager OT Work Phone: [facility] 07-23-2024 12:37-0400 Body mass index (BMI) [Ratio] 35.56 kg/m2 Sanjeev Knupp PT Work Phone: [facility] 07-23-2024 12:37-0400 Body weight 99.93 kg Sanjeev Knupp PT Work Phone: [facility] 07-23-2024 12:37-0400 Diastolic blood pressure 64 mm[Hg] Sanjeev Knupp PT Work Phone: [facility] 07-23-2024 12:37-0400 Heart rate 90 /min Sanjeev Knupp PT Work Phone: [facility] 07-23-2024 12:37-0400 Respiratory rate 18 /min Sanjeev Knupp PT Work Phone: [facility] 07-23-2024 12:37-0400 SaO2% (BldA) [Mass fraction] 97 % Sanjeev Knupp PT Work Phone: [facility] 07-23-2024 12:37-0400 Systolic blood pressure 122 mm[Hg] Sanjeev Knupp PT Work Phone: [facility] 07-23-2024 12:27-0400 Body temperature 97.39 [degF] Sanjeev Antoniosrinath PT Work Phone: [facility] 07-22-2024 10:00-0400 Body temperature 97.5 [degF] Dr. New Bear MD Work Phone: [facility] 07-22-2024 10:00-0400 Diastolic blood pressure 74 mm[Hg] Dr. New Bear MD Work Phone: [facility] 07-22-2024 10:00-0400 Heart rate 72 /min Dr. New Bear MD Work Phone: [facility] 07-22-2024 10:00-0400 Respiratory rate 17 /min Dr. New Bear MD Work Phone: [facility] 07-22-2024 10:00-0400 SaO2% (BldA) [Mass fraction] 97 % Dr. New Bear MD Work Phone: [facility] 07-22-2024 10:00-0400 Systolic blood pressure 118 mm[Hg] Dr. New Bear MD Work Phone: [facility] 07-20-2024 12:29-0400 Body height 167.[address] New Bear MD Work Phone: [facility] 07-20-2024 12:29-0400 Body weight 101.[address] New Bear MD Work Phone: [facility] 07-19-2024 11:39-0400 Body mass index (BMI) [Ratio] 36.2 kg/m2 Dr. New Bear MD Work Phone: [facility] 06-09-2024 10:48-0400 Body height 170.2 cm Taty Green MD Work Phone: [facility] 06-09-2024 10:48-0400 Body mass index (BMI) [Ratio] 33.67 kg/m2 Taty Green MD Work Phone: [facility] 06-09-2024 10:48-0400 Body weight 97.52 kg Taty Green MD Work Phone: [facility] 06-09-2024 10:48-0400 Diastolic blood pressure 70 mm[Hg] Taty Green MD Work Phone: [facility] 06-09-2024 10:48-0400 Heart rate 95 /min Taty Green MD Work Phone: [facility] 06-09-2024 10:48-0400 SaO2% (BldA) [Mass fraction] 96 % Taty Green MD Work Phone: [facility] 06-09-2024 10:48-0400 Systolic blood pressure 120 mm[Hg] Taty Green MD Work Phone: [facility] 06-07-2024 13:02-0400 Body height 168.9 cm Pacc 3 Work Phone: [facility] 06-07-2024 13:02-0400 Body mass index (BMI) [Ratio] 34.94 kg/m2 Pacc 3 Work Phone: [facility] 06-07-2024 13:02-0400 Body temperature 97.11 [degF] Pacc 3 Work Phone: [facility] 06-07-2024 13:02-0400 Body weight 99.7 kg Pacc 3 Work Phone: [facility] 06-07-2024 13:02-0400 Diastolic blood pressure 79 mm[Hg] Pacc 3 Work Phone: [facility] 06-07-2024 13:02-0400 Heart rate 99 /min Pacc 3 Work Phone: [facility] 06-07-2024 13:02-0400 Respiratory rate 16 /min Pacc 3 Work Phone: [facility] 06-07-2024 13:02-0400 SaO2% (BldA) [Mass fraction] 96 % Pacc 3 Work Phone: [facility] 06-07-2024 13:02-0400 Systolic blood pressure 132 mm[Hg] Pacc 3 Work Phone: [facility] 03-31-2024 18:05-0500 Body height 170.2 cm Navdeep Holcomb MD Work Phone: [facility] 03-31-2024 18:05-0500 Body mass index (BMI) [Ratio] 34.01 kg/m2 Navdeep Holcomb MD Work Phone: [facility] 03-31-2024 18:05-0500 Body temperature 98.2 [degF] Navdeep Holcomb MD Work Phone: [facility] 03-31-2024 18:05-0500 Body weight 98.5 kg Navdeep Holcomb MD Work Phone: [facility] 03-31-2024 18:05-0500 Diastolic blood pressure 72 mm[Hg] Navdeep Holcomb MD Work Phone: [facility] 03-31-2024 18:05-0500 Heart rate 71 /min Navdeep Holcomb MD Work Phone: [facility] 03-31-2024 18:05-0500 Respiratory rate 14 /min Navdeep Holcomb MD Work Phone: [facility] 03-31-2024 18:05-0500 SaO2% (BldA) [Mass fraction] 98 % Navdeep Holcomb MD Work Phone: [facility] 03-31-2024 18:05-0500 Systolic blood pressure 136 mm[Hg] Navdeep Holcomb MD Work Phone: [facility] 01-27-2024 10:59-0500 Body height 170.2 cm Mary Boston APRN.CNP Work Phone: [facility] 01-27-2024 10:59-0500 Body mass index (BMI) [Ratio] 34.11 kg/m2 Mary oBston APRN.CNP Work Phone: [facility] 01-27-2024 10:59-0500 Body weight 98.8 kg Mary Ludy 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 Work Phone: [facility] 01-27-2024 10:59-0500 Diastolic blood pressure 78 mm[Hg] Mary Ludy 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 Work Phone: [facility] 01-27-2024 10:59-0500 Heart rate 60 /min Mary Ludy 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 Work Phone: [facility] 01-27-2024 10:59-0500 Respiratory rate 14 /min Mary Ludy 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 Work Phone: [facility] 01-27-2024 10:59-0500 Systolic blood pressure 124 mm[Hg] Mary Ludy 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 Work Phone: [facility] 09-02-2023 10:26-0400 Body mass index (BMI) [Ratio] 32.71 kg/m2 Navdeep Holcomb MD Work Phone: [facility] 09-02-2023 10:26-0400 Body temperature 98.29 [degF] Navdeep Holcomb MD Work Phone: [facility] 09-02-2023 10:26-0400 Body weight 96.16 kg Navdeep Holcomb MD Work Phone: [facility] 09-02-2023 10:26-0400 Diastolic blood pressure 70 mm[Hg] Navdeep Holcomb MD Work Phone: [facility] 09-02-2023 10:26-0400 Heart rate 80 /min Navdeep Holcomb MD Work Phone: [facility] 09-02-2023 10:26-0400 Systolic blood pressure 102 mm[Hg] Navdeep Holcomb MD Work Phone: [facility] 08-25-2023 09:48-0400 Body mass index (BMI) [Ratio] 32.71 kg/m2 Navdeep Holcomb MD Work Phone: [facility] 08-25-2023 09:48-0400 Body temperature 97.5 [degF] Navdeep Holcomb MD Work Phone: [facility] 08-25-2023 09:48-0400 Body weight 96.16 kg Navdeep Holcomb MD Work Phone: [facility] 08-25-2023 09:48-0400 Diastolic blood pressure 68 mm[Hg] Navdeep Holcomb MD Work Phone: [facility] 08-25-2023 09:48-0400 Heart rate 72 /min Navdeep Holcomb MD Work Phone: [facility] 08-25-2023 09:48-0400 Respiratory rate 16 /min Navdeep Holcomb MD Work Phone: [facility] 08-25-2023 09:48-0400 Systolic blood pressure 118 mm[Hg] Navdeep Holcomb MD Work Phone: [facility] 08-12-2023 08:17-0400 Body mass index (BMI) [Ratio] 32.71 kg/m2 Navdeep Holcomb MD Work Phone: [facility] 08-12-2023 08:17-0400 Body temperature 97.11 [degF] Navdeep Holcomb MD Work Phone: [facility] 08-12-2023 08:17-0400 Body weight 96.16 kg Navdeep Holcomb MD Work Phone: [facility] 08-12-2023 08:17-0400 Diastolic blood pressure 68 mm[Hg] Navdeep Holcomb MD Work Phone: [facility] 08-12-2023 08:17-0400 Heart rate 52 /min Navdeep Holcomb MD Work Phone: [facility] 08-12-2023 08:17-0400 Respiratory rate 12 /min Navdeep Holcomb MD Work Phone: [facility] 08-12-2023 08:17-0400 Systolic blood pressure 120 mm[Hg] Navdeep Holcomb MD Work Phone: [facility] 08-03-2023 09:33-0400 Body mass index (BMI) [Ratio] 32.9 kg/m2 Roxanne Mendoza 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 Work Phone: [facility] 08-03-2023 09:33-0400 Body temperature 99.1 [degF] Roxanne Mendoza 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 Work Phone: [facility] 08-03-2023 09:33-0400 Body weight 96.7 kg Roxanne Mendoza 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 Work Phone: [facility] 08-03-2023 09:33-0400 Diastolic blood pressure 72 mm[Hg] Roxanne Mendoza 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 Work Phone: [facility] 08-03-2023 09:33-0400 Heart rate 74 /min Roxanne Mendoza 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 Work Phone: [facility] 08-03-2023 09:33-0400 Respiratory rate 18 /min Roxanne Mendoza 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 Work Phone: [facility] 08-03-2023 09:33-0400 SaO2% (BldA) [Mass fraction] 96 % Roxanne Mendoza 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 Work Phone: [facility] 08-03-2023 09:33-0400 Systolic blood pressure 122 mm[Hg] Roxanne Mendoza 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 Work Phone: [facility] 04-23-2023 17:11-0500 Body temperature 97.81 [degF] Navdeep Holcomb MD Work Phone: [facility] 04-23-2023 17:11-0500 Body weight 96.16 kg Navdeep Holcomb MD Work Phone: [facility] 04-23-2023 17:11-0500 Diastolic blood pressure 72 mm[Hg] Navdeep Holcomb MD Work Phone: [facility] 04-23-2023 17:11-0500 Heart rate 48 /min Navdeep Holcomb MD Work Phone: [facility] 04-23-2023 17:11-0500 Respiratory rate 16 /min Navdeep Holcomb MD Work Phone: [facility] 04-23-2023 17:11-0500 Systolic blood pressure 120 mm[Hg] Navdeep Holcomb MD Work Phone: [facility] 01-26-2023 09:58-0500 Body height 171.5 cm Mary Older 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 Work Phone: [facility] 01-26-2023 09:58-0500 Body weight 94.8 kg Mary Older 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 Work Phone: [facility] 01-26-2023 09:58-0500 Diastolic blood pressure 73 mm[Hg] Mary Older 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 Work Phone: [facility] 01-26-2023 09:58-0500 Heart rate 65 /min Mary Older 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 Work Phone: [facility] 01-26-2023 09:58-0500 Respiratory rate 16 /min Mary Older 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 Work Phone: [facility] 01-26-2023 09:58-0500 SaO2% (BldA) [Mass fraction] 100 % Mary Older 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 Work Phone: [facility] 01-26-2023 09:58-0500 Systolic blood pressure 111 mm[Hg] Mary Older 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 Work Phone: [facility] 10-02-2022 10:27-0400 Diastolic blood pressure 75 mm[Hg] Navdeep Holcomb MD Work Phone: [facility] 10-02-2022 10:27-0400 Heart rate 62 /min Navdeep Holcomb MD Work Phone: [facility] 10-02-2022 10:27-0400 Systolic blood pressure 130 mm[Hg] Navdeep Holcomb MD Work Phone: [facility] 10-02-2022 10:17-0400 Body weight 97.52 kg Navdeep Holcomb MD Work Phone: [facility] 10-02-2022 10:17-0400 Respiratory rate 16 /min Navdeep Holcomb MD Work Phone: [facility] 01-24-2022 13:21-0500 Heart rate 56 /min Mary Older 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 Work Phone: [facility] 01-24-2022 12:41-0500 Body height 170.2 cm Mary Older 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 Work Phone: [facility] 01-24-2022 12:41-0500 Body weight 96.16 kg Mary Older 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 Work Phone: [facility] 01-24-2022 12:41-0500 Diastolic blood pressure 68 mm[Hg] Mary Older 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 Work Phone: [facility] 01-24-2022 12:41-0500 Systolic blood pressure 133 mm[Hg] Mary Older 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 Work Phone: [facility] 08-14-2021 13:58-0400 Body temperature 100 [degF] Freeman Martinez 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 Work Phone: [facility] 08-14-2021 13:58-0400 Body weight 96.25 kg Freeman Martinez 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 Work Phone: [facility] 08-14-2021 13:58-0400 Diastolic blood pressure 76 mm[Hg] Freeman Juan 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 Work Phone: [facility] 08-14-2021 13:58-0400 Heart rate 80 /min Freeman Juan 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 Work Phone: [facility] 08-14-2021 13:58-0400 Respiratory rate 21 /min Freeman Martinez 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 Work Phone: [facility] 08-14-2021 13:58-0400 SaO2% (BldA) [Mass fraction] 98 % Freeman Juan 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 Work Phone: [facility] 08-14-2021 13:58-0400 Systolic blood pressure 160 mm[Hg] Freeman Martinez APRN.CIRCLE BEVELER Work Phone: [facility] 05-24-2021 12:09-0400 Diastolic blood pressure 64 mm[Hg] Navdeep Holcomb MD Work Phone: [facility] 05-24-2021 12:09-0400 Systolic blood pressure 124 mm[Hg] Navdeep Holcomb MD Work Phone: [facility] Encounters Encounter Date Encounter Type Care Provider Facility Start: 11-17-2024 ambulatory Rashad Turk [facility] Start: 11-13-2024 End: 11-13-2024 Follow-up encounter Navdeep Holcomb MD Work Phone: [facility] [place] Start: 11-08-2024 End: 11-08-2024 ambulatory NAVDEEP HOLCOMB Facility:[facility] Start: 11-03-2024 End: 11-03-2024 Nursing evaluation of patient and report Kasie Escobar RN Work Phone: Orthopaedics Comment on above: Status post hip repl acement, right (Primary Dx) Start: 11-03-2024 End: 11-03-2024 ambulatory NAVDEEP HOLCOMB Facility:[facility] Start: 11-02-2024 End: 11-02-2024 Patient encounter procedure Juan SURESH -[facility] Work Phone: Start: 11-02-2024 End: 11-02-[address] New Bear MD Work Phone: -[facility] Start: 10-31-2024 End: 10-31-2024 Office outpatient visit 15 minutes Eligio Bergeron MD Work Phone: Orthopaedics Comment on above: Status post hip repl acement, right (Primary Dx) Start: 10-31-2024 End: 10-31-2024 ambulatory NAVDEEP HOLCOMB Facility:[facility] Start: 10-26-2024 ambulatory JAMAL Marcosi ty:[facility] Start: 10-26-2024 End: 10-26-2024 Subsequent hospital visit by physician Gi/Gu 1 [facility] Work Phone: Radiology Comment on above: Pain in prosthetic j oint, initial encounter [T84.84XA] Start: 10-25-2024 End: 10-25-2024 Office outpatient visit 25 minutes Navdeep Holcomb MD Work Phone: [facility] [place] Comment on above: Atrial fibrillation, unspecified type (HCC) (Primary Dx); Congestive heart failure, unspecified HF chronicity, unspecified heart failure type (HCC); Venous insufficiency; Chronic kidney insufficiency, stage 3 (moderate) (HCC) Start: 10-25-2024 End: 10-25-2024 ambulatory NAVDEEP HOLCOMB Facility:[facility] Start: 10-22-2024 End: 10-22-2024 Follow-up encounter Navdeep Holcomb MD Work Phone: [facility] [place] Start: 10-17-2024 End: 10-17-2024 Telephone encounter Jamal Larios PA-C Work Phone: Orthopaedics Start: 10-14-2024 End: 10-14-2024 ambulatory NAVDEEP HOLCOMB Facility:[facility] Start: 10-14-2024 End: 10-14-2024 Subsequent hospital visit by physician [facility] Work Phone: Radiology Comment on above: Status post right hi p replacement [Z96.641] Start: 10-14-2024 End: 10-14-2024 ambulatory NAVDEEP HOLCOMB Facility:[facility] Start: 10-04-2024 End: 10-04-2024 Telephone encounter Navdeep Holcomb MD Work Phone: [facility] [place] Comment on above: Patient Update Start: 09-30-2024 End: 09-30-[address] Rashad Turk MD -[facility] Work Phone: Start: 09-30-2024 End: 09-30-[address] New Bear MD Work Phone: -[place] [facility] Start: 09-17-2024 Registered Referred Marsha SURESH -Cardiovascular Services Work Phone: Start: 09-17-2024 ambulatory Navdeep Hernandez ty:[facility] [place] Start: 09-13-2024 End: 09-13-2024 Patient encounter procedure Marsha SURESH -[place] [facility] Work Phone: Start: 09-13-2024 End: 09-13-[address] New Bear MD Work Phone: -[facility] Start: 09-07-2024 End: 09-07-2024 Office outpatient visit 15 minutes Navdeep Holcomb MD Work Phone: [facility] [place] Comment on above: Atrial fibrillation with RVR (HCC) (Primary Dx); Congestive heart failure, unspecified HF chronicity, unspecified heart failure type (HCC); Hypertension, essential Start: 09-07-2024 End: 09-07-2024 ambulatory NAVDEEP HOLCOMB Facility:[facility] Start: 09-02-2024 End: 09-02-2024 Office outpatient visit 25 minutes Navdeep Holcomb MD Work Phone: [facility] [place] Comment on above: Atrial fibrillation with RVR (HCC) (Primary Dx); Hypertension, essential; Congestive heart failure, unspecified HF chronicity, unspecified heart failure type (HCC) Start: 09-02-2024 End: 09-02-2024 ambulatory Navdeep Holcomb MD Work Phone: [facility] [place] Comment on above: Heart Rate Elevated Start: 08-31-2024 End: 08-31-2024 Patient encounter procedure Jamal Larios PA-C Work Phone: Orthopaedics Comment on above: Leg swelling (Primar y Dx); Status post right hip replacement Start: 08-31-2024 End: 08-31-2024 ambulatory NAVDEEP HOLCOMB Facility:[facility] Start: 08-29-2024 End: 08-29-2024 Office outpatient visit 25 minutes Navdeep Holcomb MD Work Phone: [facility] [place] Comment on above: Congestive heart raphael lure, unspecified HF chronicity, unspecified heart failure type (HCC) (Primary Dx); Venous insufficiency Start: 08-29-2024 End: 08-29-2024 ambulatory NAVDEEP HOLCOMB Facility:[facility] Start: 08-26-2024 End: 08-26-2024 Telephone encounter Navdeep Holcomb MD Work Phone: [facility] [place] Comment on above: Patient Update; Rashida ent Question Start: 08-25-2024 End: 08-25-2024 Emergency department patient visit Dr. New Bear MD Work Phone: -Emergency Department Work Phone: Start: 08-24-2024 Non-patient / Non-visit Dr. eBan swenson MD -[facility] Start: 08-24-2024 End: 08-24-[address] New Bear MD Work Phone: [facility] Work Phone: Start: 08-24-2024 End: 08-24-[address] Rosalio Mena MD -Cardiovascular Services Work Phone: Start: 08-24-2024 End: 08-24-2024 ambulatory Rosalio Mena Facility:[facility] Start: 08-17-2024 End: 08-17-2024 Patient encounter procedure Jamal Larios PA-C Work Phone: Orthopaedics Comment on above: Status post right hi p replacement (Primary Dx); Leg swelling Start: 08-17-2024 End: 08-17-2024 ambulatory NAVDEEP HOLCOMB Facility:[facility] Start: 08-17-2024 End: 08-17-[address] New Bear MD Work Phone: [facility] Work Phone: Start: 08-17-2024 End: 08-17-[address] Rosalio Mena MD -Laboratory Work Phone: Start: 08-17-2024 End: 08-17-2024 ambulatory Rosalio Mena Facility:[facility] Start: 08-11-2024 End: 08-11-[address] Rosalio Mena MD -[facility] Work Phone: Start: 08-11-2024 End: 08-11-[address] New Bear MD Work Phone: [facility] Work Phone: Start: 08-10-2024 End: 10-10-2024 Follow-up encounter Navdeep Holcomb MD Work Phone: [facility] [place] Start: 08-09-2024 End: 08-09-2024 Home visit Pradip Hillman PT Work Phone: [facility] Comment on above: PT AGENCY DC W VISIT Start: 08-09-2024 End: 08-09-2024 Telephone encounter Pradip Hillman PT Work Phone: [facility] Comment on above: Home Care (Low heart rate ) Start: 08-08-2024 End: 08-08-2024 ambulatory NAVDEEP HOLCOMB Facility:[facility] Start: 08-04-2024 End: 08-04-2024 Home visit Leslie Gabi KILN PACKER Work Phone: [facility] Comment on above: KILN PACKER ROUTINE Start: 08-02-2024 End: 08-02-2024 Home visit Leslie Gabi KILN PACKER Work Phone: [facility] Comment on above: KILN PACKER ROUTINE Start: 08-02-2024 End: 08-03-2024 Telephone encounter Leslie Gabi KILN PACKER Work Phone: [facility] Comment on above: Home Care (Edema) Patient Update Start: 07-27-2024 End: 07-27-2024 ambulatory NAVDEEP HOLCOMB Facility:[facility] Start: 07-25-2024 End: 07-25-2024 Home visit Indira Mendez RN Work Phone: [facility] Comment on above: CARE COORDINATION Start: 07-25-2024 End: 07-25-2024 ambulatory Wanda Costa RN Work Phone: Field Reimbursement Manager Management Start: 07-25-2024 End: 07-25-2024 Home visit Odette Henry OT Work Phone: [facility] Comment on above: OT EVAL Transition Of Care ( [facility] hospital discharge 07-22-24- Initial outreach ) Initial phone contact for Transitional Care Management Start: 07-23-2024 End: 07-23-2024 Home visit Sanjeev Galdamez PT Work Phone: [facility] Comment on above: PT SOC Start: 07-21-2024 End: 07-21-2024 Telephone encounter Navdeep Holcomb MD Work Phone: [facility] Comment on above: Home Care (MD jaswinder gamble) Home Care (Confirmat ion call) Start: 07-20-2024 End: 07-20-2024 Patient encounter procedure Jamal Larios PA-C Work Phone: Orthopaedics Comment on above: Status post right hi p replacement (Primary Dx) Start: 07-20-2024 End: 07-20-2024 Telephone encounter Jamal Larios PA-C Work Phone: [facility] Comment on above: Home Care Start: 07-20-2024 End: 07-20-2024 ambulatory ELIGIO BERGERON Facility:[facility] Start: 07-20-2024 End: 07-20-2024 Subsequent hospital visit by physician [facility] Work Phone: Radiology Comment on above: Status post right hi p replacement [Z96.641] Start: 07-14-2024 End: 07-15-2024 Telephone encounter Eligio Bergeron MD Work Phone: Orthopaedics Comment on above: Patient Update Start: 07-14-2024 End: 07-14-2024 ambulatory New [facility] Facility:[facility] Start: 07-14-2024 End: 07-14-2024 Non-patient / Non-visit Dr. Rosalio Mena MD -[facility] Work Phone: Start: 07-13-2024 End: 07-13-2024 ambulatory Wanda Namneftali WHATLEY [facility] Start: 07-13-2024 End: 07-13-2024 Patient encounter [facility] Comment on above: Population Health Na vigation Outreach ([facility]/Workbench/ACO ) Start: 07-11-2024 End: 07-11-2024 Orders Only Eligio Bergeron MD Work Phone: Orthopaedics Comment on above: Status post right hi p replacement (Primary Dx) Start: 07-08-2024 End: 07-08-2024 ambulatory New Chi [facility] Facility:[facility] Start: 07-08-2024 End: 07-08-2024 Non-patient / Non-visit Dr. Olga Galvez MD -[facility] Work Phone: Start: 07-06-2024 End: 07-22-2024 Evaluation and management of inpatient Dr. New Bear MD -Transitional Care Unit Start: 06-30-2024 End: 07-06-2024 Evaluation and management of inpatient ELIGIO BERGERON Facility:[facility] Start: 06-28-2024 End: 06-28-2024 Telephone encounter Onel Bethea MD Work Phone: Orthopaedics Comment on above: Patient Question Start: 06-27-2024 End: 06-27-2024 Telephone encounter Eligio Bergeron MD Work Phone: Orthopaedics Comment on above: Patient Question (Me dication question) Start: 06-24-2024 End: 08-24-2024 Follow-up encounter Taty Green MD Work Phone: Cardiology Start: 06-23-2024 ambulatory TATY GREEN [facility] ity:[facility] Start: 06-23-2024 End: 06-23-2024 Subsequent hospital visit by physician [facility] Work Phone: Cardiology Lab Comment on above: Atrial flutter, unsp ecified type (HCC) [I48.92] Start: 06-22-2024 End: 06-22-2024 Telephone encounter Hayley Javier RN Cardiology Lab Comment on above: Reminder Call Start: 06-14-2024 End: 06-14-2024 ambulatory Navdeep Holcomb MD Work Phone: [facility] [place] Comment on above: Heart Rate Question Start: 06-14-2024 End: 06-14-2024 Telephone encounter Taty Green MD Work Phone: Cardiology Start: 06-09-2024 End: 06-09-2024 ambulatory NAVDEEP HOLCOMB Facility:[facility] Start: 06-09-2024 Encounter for preprocedural cardiovascular examination TATY GREEN [facility] Start: 06-09-2024 End: 06-09-2024 Patient encounter procedure Taty Green MD Work Phone: Cardiology Comment on above: Preop cardiovascular exam (Primary Dx); Atrial flutter, unspecified type (HCC); Paroxysmal A-fib (HCC); Abnormal electrocardiogram (ECG) (EKG) Start: 06-09-2024 End: 06-09-2024 Patient encounter status Taty Green MD Work Phone: [facility] Start: 06-08-2024 End: 06-08-2024 Telephone encounter Pattie Arteaga [facility] Orthopaedics Comment on above: Care Coordination Patient Update Start: 06-07-2024 End: 06-07-2024 Subsequent hospital visit by physician [facility] Radiology Comment on above: Primary osteoarthrit is of right hip [M16.11] Start: 06-07-2024 End: 06-07-2024 Admission to [facility] 3 Work Phone: Pre Anesthesia Start: 06-07-2024 End: 06-07-2024 Anesthesia consultation [facility] 3 Work Phone: Pre Anesthesia Comment on above: Pre-op evaluation (P rimary Dx); Hypertension, essential; SIOBHAN on CPAP; Hyperlipidemia LDL goal <100; Chronic kidney insufficiency, stage 3 (moderate) (HCC); Obesity, Class I, BMI 30-34.9; Venous insufficiency Start: 06-07-2024 End: 06-07-2024 Preprocedural examination done [facility] 3 Work Phone: [facility] Start: 06-07-2024 End: 06-07-2024 ambulatory ELIGIO BERGERON Facility:[facility] Start: 06-07-2024 Encounter for other preprocedural examination NAVDEEP HOLCOMB [facility] Start: 06-07-2024 End: 06-07-2024 ambulatory NAVDEEP HOLCOMB Facility:[facility] Start: 06-02-2024 End: 06-06-2024 Telephone encounter Eligio Bergeron MD Work Phone: [address] Comment on above: Pre-Op Teaching Start: 05-13-2024 End: 05-13-2024 Refill Navdeep Holcomb MD Work Phone: [facility] [place] Comment on above: Refill Request Start: 05-12-2024 End: 05-12-2024 Telephone encounter Luigi JACOBS Work Phone: Orthopaedics Comment on above: Customer Solutions Teammate - O ther Start: 05-11-2024 End: 05-11-2024 Office outpatient new 60 minutes Eligio Bergeron MD Work Phone: Orthopaedics Comment on above: Primary osteoarthrit is of right hip (Primary Dx); Preoperative examination; Impaired fasting glucose Start: 05-11-2024 End: 05-11-2024 Orders Only Eligoi Bergeron MD Work Phone: Orthopaedics Comment on above: Primary osteoarthrit is of right hip (Primary Dx) Primary osteoarthrit is of right hip [M16.11] Start: 05-11-2024 End: 05-11-2024 Preprocedural examination done Eligio Bergeron MD Work Phone: [facility] Start: 04-22-2024 End: 04-22-2024 ambulatory NAVDEEP HOLCOMB Facility:[facility] Start: 04-22-2024 End: 04-22-2024 Patient encounter procedure Bryan Linda DO Work Phone: [facility] [place] Comment on above: Arthritis of right h ip (Primary Dx) Start: 04-14-2024 End: 04-14-2024 ambulatory Peggy Phillips PT [facility] Comment on above: Primary osteoarthrit is of right hip (Primary Dx) Start: 04-04-2024 End: 04-04-2024 Orders Only Navdeep Holcomb MD Work Phone: [facility] [place] Comment on above: Dysuria (Primary Dx) Results Primary osteoarthrit is of right hip (Primary Dx) Start: 03-31-2024 End: 03-31-2024 ambulatory NAVDEEP HOLCOMB Facility:[facility] Start: 03-31-2024 End: 03-31-2024 Office outpatient visit 15 minutes Navdeep Holcomb MD Work Phone: [facility] [place] Comment on above: Dysuria (Primary Dx) Start: 03-28-2024 End: 03-28-2024 ambulatory Peggy Phillips PT [facility] Comment on above: Primary osteoarthrit is of right hip (Primary Dx) Start: 03-21-2024 End: 03-21-2024 ambulatory Sravani Felix KILN PACKER Work Phone: [facility] Comment on above: Primary osteoarthrit is of right hip (Primary Dx) Start: 03-16-2024 End: 03-18-2024 Refill Mary Boston APRN.CNP Work Phone: [facility] Comment on above: Refill Request Start: 03-15-2024 End: 03-15-2024 Telephone encounter Bryan Linda DO Work Phone: [address] [place] [address] Start: 03-14-2024 End: 03-15-2024 ambulatory Peggy Phillips PT [facility] Comment on above: Primary osteoarthrit is of right hip (Primary Dx) Refill Request Start: 02-22-2024 End: 02-22-2024 ambulatory NAVDEEP HOLCOMB Facility:[facility] Start: 02-22-2024 End: 02-22-2024 Subsequent hospital visit by physician Screen Mammo [facility] Comment on above: Encounter for screen ing mammogram for breast cancer [Z12.31] Start: 02-17-2024 End: 02-17-2024 ambulatory NAVDEEP HOLCOMB Facility:[facility] Start: 02-17-2024 End: 02-17-2024 Patient encounter procedure Bryan Linda DO Work Phone: [facility] [place] Comment on above: Primary osteoarthrit is of right hip Start: 01-27-2024 End: 01-27-2024 Subsequent hospital visit by physician Xr [facility] Jennifer Work Phone: Radiology Comment on above: Right hip pain [M25. 551] Start: 01-27-2024 End: 01-27-2024 ambulatory NAVDEEP HOLCOMB Facility:[facility] Start: 01-27-2024 End: 01-27-2024 Patient encounter procedure Mary Boston APRN.CNP Work Phone: [facility] [place] Comment on above: Medicare annual well ness visit, subsequent (Primary Dx); Right hip pain; Hypertension, essential; Impaired fasting glucose; Hyperlipidemia LDL goal <100; Chronic kidney insufficiency, stage 3 (moderate) (HCC); SIOBHAN on CPAP; Encounter for screening mammogram for breast cancer; Encounter for screening examination for other mental health and behavioral disorders; Screening for depression Start: 01-18-2024 End: 01-18-2024 ambulatory NAVDEEP HOLCOMB Facility:[facility] Start: 01-12-2024 End: 01-12-2024 ambulatory NADVEEP HOLCOMB Facility:[facility] Start: 01-12-2024 End: 01-12-2024 Patient encounter procedure Bethany Hodges MD Work Phone: Dermatology Comment on above: Neoplasm of uncertai n behavior of skin of back (Primary Dx); Seborrheic keratosis Start: 09-02-2023 Telephone encounter Navdeep kowalski MD Work Phone: [facility] [place] Start: 09-02-2023 End: 09-02-2023 Patient encounter procedure Navdeep Holcomb MD Work Phone: [facility] [place] Comment on above: Hypertension, essent ial (Primary Dx); Venous insufficiency; Chronic kidney insufficiency, stage 3 (moderate) (HCC); Impaired fasting glucose; Hyperlipidemia LDL goal <100 Start: 08-25-2023 End: 08-25-2023 Patient encounter procedure Navdeep Holcomb MD Work Phone: [facility] [place] Comment on above: Venous insufficiency (Primary Dx); Hypertension, essential; Fatigue, unspecified type; Chronic kidney insufficiency, stage 3 (moderate) (HCC) Start: 08-21-2023 ambulatory Navdeep rodriguez MD Work Phone: [facility] [place] Comment on above: Edema Start: 08-17-2023 Telephone encounter Navdeep kowalski MD Work Phone: [facility] [place] Comment on above: Results Start: 08-12-2023 End: 08-12-2023 Subsequent hospital visit by physician Cailin [facility] Jennifer Mathis Work Phone: Radiology Comment on above: Bronchitis with bron chospasm [J20.9] Start: 08-12-2023 End: 08-12-2023 Patient encounter procedure Navdeep Holcomb MD Work Phone: [facility] [place] Comment on above: Bronchitis with bron chospasm (Primary Dx) Start: 08-04-2023 Telephone encounter Benjamín quintana 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 Work Phone: [facility] Comment on above: Results Start: 08-03-2023 End: 08-03-2023 Patient encounter procedure Roxanne Mendoza 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 Work Phone: [facility] Comment on above: URI, acute (Primary Dx); Acute cough Start: 04-23-2023 End: 04-23-2023 Patient encounter procedure Navdeep Holcomb MD Work Phone: [facility] [place] Comment on above: Impacted cerumen of right ear (Primary Dx) Start: 02-20-2023 End: 02-20-2023 Subsequent hospital visit by physician Screen Mammo [facility] Comment on above: Encounter for screen ing mammogram for breast cancer [Z12.31] Start: 01-26-2023 End: 01-26-2023 Patient encounter procedure Mary Arroyo 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 Work Phone: [facility] [place] Comment on above: Medicare annual well ness visit, subsequent (Primary Dx); Hypercalcemia; Encounter for screening mammogram for breast cancer Start: 10-02-2022 End: 10-02-2022 Patient encounter procedure Navdeep Holcomb MD Work Phone: [facility] [place] Comment on above: Hypertension, essent ial (Primary Dx); Dry skin Start: 07-18-2022 Telephone encounter Navdeep kowalski MD Work Phone: [facility] [place] Comment on above: Appointment Request: Cough and Other Symptoms Start: 02-19-2022 End: 02-19-2022 Subsequent hospital visit by physician Screen Mammo [facility] Comment on above: Encounter for screen ing mammogram for breast cancer [Z12.31] Start: 01-24-2022 End: 01-24-2022 Patient encounter procedure Mary Arroyo 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 Work Phone: [facility] [place] Comment on above: Medicare annual well ness visit, subsequent (Primary Dx); Encounter for screening mammogram for breast cancer Start: 10-25-2021 Refill Marygilbert Arroyo CASINO ENFORCEMENT AGENT .CIRCLE BEVELER Work Phone: [facility] [place] Comment on above: Refill Request Start: 08-14-2021 End: 08-14-2021 Subsequent hospital visit by physician Xr [facility] [place] Work Phone: Radiology Comment on above: Rhonchi at both lung bases [R09.89] Start: 08-14-2021 End: 08-14-2021 Patient encounter procedure Freeman Martinez APRN.CIRCLE BEVELER Work Phone: [facility] Comment on above: Sinobronchitis (Prim mustapha Dx); Rhonchi at both lung bases; URI, acute Start: 08-14-2021 Telephone encounter Navdeep kowalski MD Work Phone: [facility] [place] Comment on above: Patient Update Start: 05-24-2021 End: 05-24-2021 Patient encounter procedure Navdeep Holcomb MD Work Phone: [facility] [place] Comment on above: Hypertension, essent ial (Primary Dx); Hyperlipidemia LDL goal <100; SIOBHAN on CPAP; Multiple joint pain; Premature beats Procedures Date Procedure Procedure Detail Performing Clinician Start: 10-26-2024 Arthrocentesis aspir &/inj major jt/bursa w/us Jamal Larios PA-C Work Phone: Start: 10-26-2024 Cul bact xcpt urine blood/stool aerobic isol Jamal SURESH-Nakul Work Phone: Start: 08-25-2024 X-ray of chest, PA a nd lateral views Dr. New Bear MD Work Phone: Start: 08-25-[address] New Bear MD Work Phone: Start: 07-21-[address] New Bear MD Work Phone: Start: 07-20-2024 Radex hip unilateral with pelvis 2-3 views Eligio Bergeron MD Work Phone: Start: 07-09-2024 Vitamin D, 25-hydrox y measurement Dr. New Bear MD Work Phone: Comment on above: Vitamin D StatusDefi ciency: <20 ng/mL (50nmol/L)Insufficiency: 20-30 ng/mL (50-75 nmol/L)Sufficiency: 30-100 ng/mL (75-250 nmol/L)Toxicity: >100 ng/mL (>250 nmol/L) Start: 06-23-2024 Myocardial spect mul tiple studies Taty Green MD Work Phone: Start: 06-23-2024 Echo tthrc r-t 2d w/wom-mode compl spec&colr d Taty Green MD Work Phone: Start: 06-07-2024 Antibody screen NAVDEEP HOLCOMB Comment on above: Order Comment: Speci men Type: BLOOD SPECIMEN Ordering Facility: [facility] Address: [facility] [place] [id number] Performed By: #### 2 [id number], [id number] #### [facility] CLIA [id number] [address] [place] [id number] [facility] Start: 03-31-2024 Urnls dip stick/tabl et rgnt auto w/o microscopy Navdeep Holcomb MD Work Phone: Start: 01-27-2024 Adult depression scr eening assessment Mary Ludy 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 Work Phone: Start: 01-18-2024 Lipid 1996 panel - S maulik or Plasma [facility] 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 Work Phone: Start: 01-22-2023 Lipid 1996 panel - S maulik or Plasma Mary Older 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 Work Phone: Start: 02-19-2022 End: 02-19-2022 Mammography Mary Older 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 Work Phone: Start: 01-16-2022 Lipid 1996 panel - S maulik or Plasma Screen Ws Start: 08-14-2021 Radiologic exam ches t 2 views Freeman Martinez 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 Work Phone: Start: 02-15-2021 Mammography Navdeep Pop MD Work Phone: Start: 10-22-2020 Adult depression scr eening assessment Navdeep Holcomb MD Work Phone: Start: 02-13-2017 Colonoscopy Navdeep Pop MD Work Phone: Plan of Treatment Date Care Activity Detail Author Start: 09-22-2034 Urine microalbumin profile DTaP,Tdap,Td Vaccine (3 - Td or Tdap) [facility] Start: 01-17-2029 Lipid panel Lipid Screening [facility] Start: 01-23-2028 Lipid 1996 panel - Serum or Plasma Lipid Screening [facility] Start: 01-23-2028 Lipid panel Lipid Screening [facility] Start: 11-09-2027 Diabetes Screening Diabetes Screening [facility] Start: 10-15-2027 Diabetes Screening Diabetes Screening [facility] Start: 08-09-2027 Diabetes Screening Diabetes Screening [facility] Start: 07-07-2027 Diabetes Screening Diabetes Screening [facility] Start: 06-08-2027 Diabetes Screening Diabetes Screening [facility] Start: 02-13-2027 Colonoscopy COLONOSCOPY [facility] Start: 02-13-2027 COLORECTAL CANCER SCREENING COLORECTAL CANCER SCREENING [facility] Start: 02-13-2027 Screening for malignant neoplasm of colon [facility] Start: 01-17-2027 Diabetes Screening Diabetes Screening [facility] Start: 01-16-2027 Lipid 1996 panel - Serum or Plasma Lipid Screening [facility] Start: 01-16-2027 LIPID SCREEN LIPID SCREEN [facility] Start: 08-23-2026 Diabetes Screening Diabetes Screening [facility] Start: 03-30-2026 Diabetes Screening Diabetes Screening [facility] Start: 01-22-2026 Diabetes Screening Diabetes Screening [facility] Start: 01-18-2026 LIPID SCREEN LIPID SCREEN [facility] Start: 11-08-2025 Creatinine measurement Serum Creatinine [facility] Start: 10-25-2025 Annual PCP Team Chronic Disease Visit Annual PCP Team Chronic Disease Visit [facility] Start: 10-14-2025 Creatinine measurement Serum Creatinine [facility] Start: 09-07-2025 Annual PCP Team Chronic Disease Visit Annual PCP Team Chronic Disease Visit [facility] Start: 09-02-2025 Annual PCP Team Chronic Disease Visit Annual PCP Team Chronic Disease Visit [facility] Start: 08-29-2025 Annual PCP Team Chronic Disease Visit Annual PCP Team Chronic Disease Visit [facility] Start: 08-09-2025 BP Controlled (<130/80) BP Controlled (<130/80) [facility] Start: 08-08-2025 Creatinine measurement Serum Creatinine [facility] Start: 08-04-2025 BP Controlled (<130/80) BP Controlled (<130/80) [facility] Start: 08-02-2025 BP Controlled (<130/80) BP Controlled (<130/80) [facility] Start: 07-27-2025 Annual PCP Team Chronic Disease Visit Annual PCP Team Chronic Disease Visit [facility] Start: 07-27-2025 Covid-19 Vaccine ( season) Covid-19 Vaccine () [facility] Comment on above: Postponed from 05/22/2024 (Declined at t his time) Start: 07-25-2025 BP Controlled (<130/80) BP Controlled (<130/80) [facility] Start: 07-23-2025 BP Controlled (<130/80) BP Controlled (<130/80) [facility] Start: 07-06-2025 Creatinine measurement Serum Creatinine [facility] Start: 07-05-2025 Complete blood count Hemoglobin/Hematocrit [facility] Start: 06-09-2025 BP Controlled (<130/80) BP Controlled (<130/80) [facility] Start: 06-07-2025 Creatinine measurement Serum Creatinine [facility] Start: 03-31-2025 Annual PCP Team Chronic Disease Visit Annual PCP Team Chronic Disease Visit [facility] Start: 02-21-2025 Screening for malignant neoplasm of breast Mammogram Screening [facility] Start: 01-26-2025 Annual PCP Team Chronic Disease Visit Annual PCP Team Chronic Disease Visit [facility] Start: 01-26-2025 Anxiety Screening Anxiety Screening [facility] Start: 01-26-2025 BP Controlled (<130/80) BP Controlled (<130/80) [facility] Start: 01-26-2025 Depression Screening Depression Screening [facility] Start: 01-26-2025 Medicare Annual Wellness Visit Medicare Annual Wellness Visit [facility] Start: 01-26-2025 End: 01-26-2025 Patient encounter procedure 01/26/2025 8:40 AM EST Office Visit Internal Medicine [place] [address] [place] [address] Navdeep Holcomb MD [address] [place] [address] Annual Medicare Wellness w/6 month follow-up [facility] Medicine [place] Comment on above: Annual Medicare Wellness w/6 month follo w-up Start: 01-17-2025 Creatinine measurement Serum Creatinine [facility] Start: 01-16-2025 DIABETES SCREEN DIABETES SCREEN [facility] Start: 01-16-2025 Diabetes Screening Diabetes Screening [facility] Start: 12-28-2024 End: 12-28-2024 Patient encounter procedure Orthopaedics Comment on above: right hip follow up l hip Start: 11-08-2024 End: 02-07-2025 Basic metabolic 2000 panel - Serum or Plasma BASIC METABOLIC PANEL Lab Routine Chronic kidney insufficiency, stage 3 (moderate) (HCC) Expected: 11/08/2024, Expires: 02/07/2025 [facility] Work Phone: Comment on above: Expected: 11/08/2024, Expires: Start: 11-07-2024 Influenza vaccination Influenza Vaccine (#1) [facility] Start: 11-03-2024 End: 11-03-2024 Nursing evaluation of patient and report 11/03/2024 10:00 AM EDT Nurse Visit Orthopaedics [address] [address] Kasie Escobar RN [address] [address] R hip Orthopaedics Comment on above: R hip Start: 11-02-2024 Evaluation of diagnostic study results [facility] Start: 10-31-2024 End: 10-31-2024 Patient encounter procedure 10/31/2024 10:15 AM EDT Office Visit Orthopaedics [address] [address] Eligio Bergeron MD [address] [place] [address] 2 week follow up - hip pain Orthopaedics Comment on above: 2 week follow up - hip pain Start: 10-26-2024 End: 10-26-2024 Patient encounter procedure 10/26/2024 1:00 PM EDT Appointment Radiology [address] [place] [address] Rt Hip Aspiration Radiology Comment on above: Rt Hip Aspiration Start: 10-25-2024 End: 10-25-2024 Patient encounter procedure 10/25/2024 10:40 AM EDT Office Visit Internal Medicine [place] [address] [place] [address] Navdeep Holcomb MD [address] [facility] [place] [address] 3 month follow-up Internal Medicine [place] Comment on above: 3 month follow-up Start: 09-30-2024 Evaluation of diagnostic study results [facility] Start: 09-13-2024 Evaluation of diagnostic study results [facility] Start: 09-12-2024 End: 12-12-2024 Basic metabolic 2000 panel - Serum or Plasma BASIC METABOLIC PANEL Lab Routine Venous insufficiency Congestive heart failure, unspecified HF chronicity, unspecified heart failure type (HCC) Expected: 09/12/2024, Expires: 12/12/2024 [facility] Work Phone: Comment on above: Expected: 09/12/2024, Expires: Start: 09-07-2024 End: 09-07-2024 Patient encounter procedure 09/07/2024 1:40 PM EDT Office Visit [facility] Medicine [facility] [address] [facility] [place] [address] Navdeep Holcomb MD [address] [place], [place] [id number] 5 DAY FOLLOW UP. HR Internal Medicine [facility] Comment on above: 5 DAY FOLLOW UP. HR Start: 09-01-2024 Annual PCP Team Chronic Disease Visit Annual PCP Team Chronic Disease Visit [facility] Start: 09-01-2024 BP Controlled (<130/80) BP Controlled (<130/80) [facility] Start: 08-31-2024 End: 08-31-2024 Patient encounter procedure 08/31/2024 10:30 AM EDT Office Visit Orthopaedics [address] [address] Jamal Larios PA-C [address] [address] R posterior sylvester DOS 06/30/24 Orthopaedics Comment on above: R posterior sylvester DOS 06/30/24 Start: 08-29-2024 End: 08-29-2024 Patient encounter procedure 08/29/2024 2:20 PM EDT Office Visit Internal Medicine [place] [address] [place] [address] Navdeep Holcomb MD [address] [place] [address] [facility] ER f/u 08/25/24 low HR and couldn't catch breath. See TE 08/26/24. Internal Medicine [place] Comment on above: [facility] ER f/u 08/25/24 low HR and couldn't c atch breath. See TE 08/26/24. Start: 08-25-2024 [facility] Start: 08-25-2024 End: 08-25-2024 [facility] Start: 08-24-2024 Annual PCP Team Chronic Disease Visit Annual PCP Team Chronic Disease Visit [facility] Start: 08-24-2024 BP Controlled (<130/80) BP Controlled (<130/80) [facility] Start: 08-24-2024 Complete blood count Hemoglobin/Hematocrit [facility] Start: 08-23-2024 Creatinine measurement Serum Creatinine [facility] Start: 08-17-2024 End: 08-17-2024 Patient encounter procedure Cardiology Comment on above: 6 week follow up 4 week follow up Start: 08-12-2024 Patient referral [facility] Work Phone: Start: 08-11-2024 Annual PCP Team Chronic Disease Visit Annual PCP Team Chronic Disease Visit [facility] Start: 08-11-2024 BP Controlled (<130/80) BP Controlled (<130/80) [facility] Start: 08-11-2024 Evaluation of diagnostic study results [facility] Start: 08-08-2024 End: 11-07-2024 Basic metabolic 2000 panel - Serum or Plasma BASIC METABOLIC PANEL Lab Routine Venous insufficiency Expected: 08/08/2024, Expires: 11/07/2024 [facility] Work Phone: Comment on above: Expected: 08/08/2024, Expires: Start: 08-02-2024 BP Controlled (<130/80) BP Controlled (<130/80) [facility] Start: 08-02-2024 End: 08-02-2024 Patient encounter procedure 08/02/2024 8:30 AM EDT Office Visit Cardiology [address] [address] Roxanne Quesada APRN.CIRCLE BEVELER [address] [address] 6 week follow up Cardiology Comment on above: 6 week follow up Start: 07-27-2024 End: 07-27-2024 Patient encounter procedure 07/27/2024 11:20 AM EDT Office Visit Internal Medicine [place] [address] [place], [place] [address] Navdeep Holcomb MD [address] [place] [address] 06/30- 07/23 right total hip [facility] Internal Medicine [place] Comment on above: 06/30- 07/23 right total hip [facility] Start: 07-26-2024 End: 07-26-2024 Nursing evaluation of patient and report 07/26/2024 9:00 AM EDT Nurse Visit Cardiology [address] [address] , Nurse Card [place] [address] Green Cardiology Comment on above: EKG per Dr. Green Start: 07-22-2024 Development of care plan [facility] Start: 07-22-2024 Patient discharge [facility] Start: 07-21-2024 Speech therapy management [facility] Start: 07-21-2024 Referral to service [facility] Start: 07-21-2024 [facility] Start: 07-21-2024 End: 07-21-2024 Patient encounter procedure 07/21/2024 10:40 AM EDT Office Visit Internal Medicine [place] [address] [place] [address] Navdeep Holcomb MD [address] [place] [address] 6 month follow-up Internal Medicine [place] Comment on above: 6 month follow-up Start: 07-21-2024 [facility] Start: 07-20-2024 End: 07-20-2024 Patient encounter procedure Radiology Comment on above: R hip sylvester DOS 06/30/24 R posterior sylvester DOS 06/30/24 Start: 07-20-2024 Continuous positive airway pressure ventilation treatment [facility] Start: 07-17-2024 [facility] Start: 07-14-2024 End: 07-14-2024 Nursing evaluation of patient and report 07/14/2024 10:00 AM EDT Nurse Visit Orthopaedics [address] [address] Kasie Escobar RN [address] [address] R sylvester DOS 06/30/24 Orthopaedics Comment on above: R sylvester DOS 06/30/24 Start: 07-08-2024 Speech therapy management [facility] Start: 07-08-2024 Speech therapy assessment [facility] Start: 07-07-2024 End: 10-06-2024 CBC panel - Blood by Automated count COMPLETE BLOOD COUNT Lab Routine Hypertension, essential Expected: 07/07/2024 (Approximate), Expires: 10/06/2024 [facility] Comment on above: Expected: 07/07/2024 (Approximate), Expi res: 10/06/2024 Start: 07-07-2024 End: 10-06-2024 Hemoglobin A1c in Blood HEMOGLOBIN A1C Lab Routine Impaired fasting glucose Expected: 07/07/2024 (Approximate), Expires: 10/06/2024 [facility] Comment on above: Expected: 07/07/2024 (Approximate), Expi res: 10/06/2024 Start: 07-07-2024 Developing a treatment plan [facility] Start: 07-07-2024 Development of care plan [facility] Start: 07-06-2024 Admission procedure [facility] Start: 07-06-2024 Introduction of urinary catheter [facility] Start: 07-06-2024 Measuring intake and output [facility] Start: 07-06-2024 Patient referral to dietitian [facility] Start: 07-06-2024 Referral to occupational therapist [facility] Start: 07-06-2024 Referral to service [facility] Start: 07-06-2024 Vital signs measurements [facility] Start: 07-06-2024 End: 07-06-2024 [facility] Start: 07-06-2024 Provision of activity privileges [facility] Start: 07-06-2024 Application of device [facility] Start: 06-30-2024 End: 06-30-2024 Arthrp acetblr/prox fem prostc agrft/algrft ROBOTIC ASSISTED TOTAL HIP ARTHROPLASTY Primary osteoarthritis of right hip 06/30/2024 10:35 AM EDT ME OR Start: 06-30-2024 End: 06-30-2024 Admission to same day surgery center [facility] Comment on above: ROBOTIC ASSISTED TOTAL HIP ARTHROPLASTY (see comments) Start: 06-30-2024 End: 06-30-2024 Arthrp acetblr/prox fem prostc agrft/algrft [facility] [place] Start: 06-30-2024 Subsequent hospital visit by physician [facility] Comment on above: Primary osteoarthritis of right hip [M16 .11] Start: 06-23-2024 Subsequent hospital visit by physician 06/23/2024 9:00 AM EDT Hospital Encounter Cardiology Lab [address] [place] [address] Atrial flutter, unspecified type (HCC) [I48.92] Cardiology [...] Paroxysmal A-fib (HCC) Expected: 06/09/2024, Expires: 06/09/2025 [facility] Comment on above: Expected: 06/09/2024, Expires: Start: 06-09-2024 End: 09-08-2024 TSH W/REFLEX FT4 TSH W/REFLEX FT4 Lab Routine Atrial flutter, unspecified type (HCC) Paroxysmal A-fib (HCC) Expected: 06/09/2024, Expires: 09/08/2024 [facility] Work Phone: Comment on above: Expected: 06/09/2024, Expires: Start: 06-09-2024 End: 06-09-2024 Patient encounter procedure 06/09/2024 11:00 AM EDT Office Visit Cardiology [address] [address] Taty Green MD [address] [place] [address] pre op Cardiology Comment on above: pre op Start: 06-07-2024 End: 06-07-2024 Patient encounter procedure 06/07/2024 3:30 PM EDT Appointment Radiology [address] [place] [address] kvng Primary osteoarthritis of right hip [M16.11] Radiology Comment on above: kvng Primary osteoarthritis of right hip [M16.11] Start: 06-07-2024 End: 06-07-2024 Anesthesia consultation 06/07/2024 1:00 PM EDT PAT Pre Anesthesia [address] [place] [address] 06/30 ROBOTIC ASSISTED TOTAL HIP ARTHROPLASTY (see comments) [59021] - Hip - Right Pre Anesthesia Comment on above: 06/30 ROBOTIC ASSISTED TOTAL HIP ARTHROPL ASTY (see comments) [71149] - Hip - Right Start: 06-07-2024 End: 06-07-2024 Patient encounter procedure Orthopaedics Comment on above: Primary osteoarthritis of right hip [M16 .11] Start: 05-22-2024 Covid-19 Vaccine ( season) Covid-19 Vaccine ( season) [facility] Start: 05-11-2024 End: 08-10-2024 CBC W Auto Differential panel - Blood COMPLETE BLOOD COUNT AND DIFFERENTIAL Lab Routine Primary osteoarthritis of right hip Preoperative examination Expected: 05/11/2024, Expires: 08/10/2024 [facility] Comment on above: Expected: 05/11/2024, Expires: Start: 05-11-2024 End: 08-10-2024 Comprehensive metabolic 2000 panel - Serum or Plasma COMPREHENSIVE METABOLIC PANEL Lab Routine Primary osteoarthritis of right hip Preoperative examination Expected: 05/11/2024, Expires: 08/10/2024 [facility] Comment on above: Expected: 05/11/2024, Expires: Start: 05-11-2024 End: 08-10-2024 Hemoglobin A1c in Blood HEMOGLOBIN A1C Lab Routine Primary osteoarthritis of right hip Preoperative examination Impaired fasting glucose Expected: 05/11/2024, Expires: 08/10/2024 [facility] Comment on above: Expected: 05/11/2024, Expires: Start: 05-11-2024 End: 08-10-2024 TYPE AND SCREEN,30 DAY TYPE AND SCREEN,30 DAY Blood Bank Routine Primary osteoarthritis of right hip Preoperative examination Expected: 05/11/2024, Expires: 08/10/2024 [facility] Comment on above: Expected: 05/11/2024, Expires: Start: 05-11-2024 End: 05-11-2024 Patient encounter procedure 05/11/2024 10:40 AM EST Office Visit Orthopaedics [address] [address] Eligio Bergeron MD [address] [place] [address] Arthritis of right hip [M16.11] Orthopaedics Comment on above: Arthritis of right hip [M16.11] Start: 04-23-2024 Annual PCP Team Chronic Disease Visit Annual PCP Team Chronic Disease Visit [facility] Start: 04-23-2024 BP Controlled (<130/80) BP Controlled (<130/80) [facility] Start: 04-22-2024 End: 04-22-2024 Patient encounter procedure 04/22/2024 11:00 AM EST Office Visit Family Medicine [place] [address] [place] [address] Bryan Linda, V, DO [address] [place] [address] R hip Therapist sending patient back from therapy to see referring Doctor (Bryan Linda) [facility] [place] Comment on above: R hip Therapist sending patient back fro therapy to see referring Doctor (Bryan Linda) Start: 04-14-2024 End: 04-14-2024 ambulatory 04/14/2024 12:30 PM EST OT/PT/Speech Visit [facility] [address] [place] [address] Peggy Phillips, PT M16.11 (ICD-10-CM) - Primary osteoarthritis of right hip [facility] Comment on above: M16.11 (ICD-10-CM) - Primary osteoarthri tis of right hip Start: 04-04-2024 End: 04-04-2024 ambulatory 04/04/2024 2:45 PM EST OT/PT/Speech Visit [facility] [address] [place] [address] KasNicole cruzh, KILN PACKER [address] [place] [address] M16.11 (ICD-10-CM) - Primary osteoarthritis of right hip [facility] Comment on above: M16.11 (ICD-10-CM) - Primary osteoarthri tis of right hip Start: 03-28-2024 End: 03-28-2024 ambulatory 03/28/2024 2:45 PM EST OT/PT/Speech Visit [facility] [address] [place] [address] Peggy Phillips, PT M16.11 (ICD-10-CM) - Primary osteoarthritis of right hip [facility] Comment on above: M16.11 (ICD-10-CM) - Primary osteoarthri tis of right hip Start: 03-21-2024 End: 03-21-2024 ambulatory 03/21/2024 2:45 PM EST OT/PT/Speech Visit [facility] [address] [place] [address] Sravani Felix, KILN PACKER [address] [place] [address] M16.11 (ICD-10-CM) - Primary osteoarthritis of right hip [facility] Comment on above: M16.11 (ICD-10-CM) - Primary osteoarthri tis of right hip Start: 03-14-2024 End: 03-14-2024 ambulatory 03/14/2024 11:30 AM EST OT/PT/Speech Visit [facility] [address] [place] [address] Peggy Phillips PT Primary osteoarthritis of right hip [M16.11] [facility] Comment on above: Primary osteoarthritis of right hip [M16 .11] Start: 03-09-2024 Advance Directive Discussion Advance Directive Discussion [facility] Start: 03-05-2024 DIABETES SCREEN DIABETES SCREEN [facility] Start: 02-22-2024 End: 02-22-2024 Patient encounter procedure 02/22/2024 11:10 AM EST Appointment Mammogram [address] [place] [address] Encounter for screening mammogram for breast cancer [Z12.31] Mammogram Comment on above: Encounter for screening mammogram for br east cancer [Z12.31] Start: 02-21-2024 Screening for malignant neoplasm of breast Mammogram Screening [facility] Start: 01-27-2024 Annual PCP Team Chronic Disease Visit Annual PCP Team Chronic Disease Visit [facility] Start: 01-27-2024 BP Controlled (<130/80) BP Controlled (<130/80) [facility] Start: 01-27-2024 RSV Vaccine (1 - 1-dose 60+ series) RSV Vaccine (1 - 1-dose 60+ series) [facility] Comment on above: Postponed from 2011 (Declined at t his time) Start: 01-27-2024 Urine microalbumin profile DTaP,Tdap,Td Vaccine (2 - Td or Tdap) [facility] Comment on above: Postponed from 03/24/2017 (Declined at t his time) Start: 01-27-2024 End: 01-27-2024 Patient encounter procedure 01/27/2024 11:00 AM EST Office Visit Internal Medicine [place] [address] [place] [address] Mary Boston, 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 [address] [place], [place] [address] Annual Medicare Wellness [facility] [place] Comment on above: Annual Medicare Wellness Start: 01-11-2024 End: 04-11-2024 Comprehensive metabolic 2000 panel - Serum or Plasma COMPREHENSIVE METABOLIC PANEL Lab Routine Hyperlipidemia LDL goal <100 Expected: 01/11/2024, Expires: 04/11/2024 [facility] Work Phone: Comment on above: Expected: 01/11/2024, Expires: Start: 01-11-2024 End: 04-11-2024 Lipid 1996 panel - Serum or Plasma LIPID PANEL BASIC Lab Routine Hyperlipidemia LDL goal <100 Expected: 01/11/2024, Expires: 04/11/2024 [facility] Comment on above: Expected: 01/11/2024, Expires: Start: 10-03-2023 ANNUAL PCP TEAM CHRONIC DISEASE VISIT ANNUAL PCP TEAM CHRONIC DISEASE VISIT [facility] Start: 09-02-2023 End: 09-02-2023 Patient encounter procedure 09/02/2023 10:00 AM EDT Office Visit Internal Medicine [place] [address] [place] [address] Navdeep Holcomb MD [address] [place] [address] 5 month follow-up [facility] Medicine [place] Comment on above: 5 month follow-up Start: 08-24-2023 End: 08-24-2023 Patient encounter procedure 08/24/2023 8:00 AM EDT Office Visit Internal Medicine [place] [address] [facility] [place] [address] Dot Villa APRN.WAREHOUSE ANALYST [address] [place] [address] Bilateral foot and ankle swelling. See triage 08/21/23. [facility] Medicine [place] Comment on above: Bilateral foot and ankle swelling. See fredi smith 08/21/23. Start: 08-03-2023 End: 08-17-2023 COVID & INFLUENZA A/B & RSV NAAT, ROUTINE [facility] Work Phone: Comment on above: Expected: 08/03/2023, Expires: Start: 07-19-2023 ANNUAL PCP TEAM CHRONIC DISEASE VISIT ANNUAL PCP TEAM CHRONIC DISEASE VISIT [facility] Start: 04-24-2023 Covid-19 Vaccine () Covid-19 Vaccine () [facility] Start: 03-09-2023 Advance Directive Discussion Advance Directive Discussion [facility] Start: 03-09-2023 Behavioral Health Screening Behavioral Health Screening [facility] Start: 02-25-2023 End: 05-27-2023 Basic metabolic 2000 panel - Serum or Plasma BASIC METABOLIC PNL Lab Routine Hypercalcemia Expected: 02/25/2023 (Approximate), Expires: 05/27/2023 [facility] Work Phone: Comment on above: Expected: 02/25/2023 (Approximate), Expi res: 05/27/2023 Start: 02-19-2023 Mammography [facility] Start: 02-19-2023 Screening for malignant neoplasm of breast Mammogram Screening [facility] Start: 01-24-2023 ANNUAL PCP TEAM CHRONIC DISEASE VISIT ANNUAL PCP TEAM CHRONIC DISEASE VISIT [facility] Start: 11-07-2022 Influenza vaccination INFLUENZA (#1) [facility] Start: 05-24-2022 ANNUAL PCP TEAM CHRONIC DISEASE VISIT ANNUAL PCP TEAM CHRONIC DISEASE VISIT [facility] Start: 05-24-2022 BP CONTROLLED (<130/80) BP CONTROLLED (<130/80) [facility] Start: 04-28-2022 COVID-19 VACCINE (5 - Pfizer series) COVID-19 VACCINE (5 - Pfizer series) [facility] Start: 03-09-2022 ADVANCE DIRECTIVE DISCUSSION ADVANCE DIRECTIVE DISCUSSION [facility] Start: 03-09-2022 DEPRESSION ASSESSMENT DEPRESSION ASSESSMENT [facility] Start: 02-15-2022 Mammography MAMMOGRAM [facility] Start: 01-25-2022 Urine microalbumin profile DTAP,TDAP,TD (2 - Td or Tdap) [facility] Comment on above: Postponed from 03/24/2017 (Declined at t his time) Start: 12-24-2021 End: 02-23-2022 Comprehensive metabolic 2000 panel - Serum or Plasma COMP METABOLIC PANEL Lab Routine Hyperlipidemia LDL goal <100 Expected: 12/24/2021, Expires: 02/23/2022 [facility] Work Phone: Comment on above: Expected: 12/24/2021, Expires: 2 Start: 12-24-2021 End: 02-23-2022 LIPID PANEL BASIC LIPID PANEL BASIC Lab Routine Hyperlipidemia LDL goal <100 Expected: 12/24/2021, Expires: 02/23/2022 [facility] Work Phone: Comment on above: Expected: 12/24/2021, Expires: 2 Start: 11-07-2021 Influenza vaccination INFLUENZA (#1) [facility] Start: 10-22-2021 Adult depression screening assessment DEPRESSION SCREENING [facility] Start: 07-06-2021 COVID-19 VACCINE (4 - Booster for Pfizer series) COVID-19 VACCINE (4 - Booster for Pfizer series) [facility] Start: 03-24-2017 Urine microalbumin profile [facility] Start: 02-13-2017 End: 02-13-2017 Appointment Appointment [facility] Work Phone: Start: 01-07-2017 End: 01-07-2017 Colonoscopy flx dx w/collj spec when pfrmd Colonoscopy [facility] Work Phone: Start: 04-04-2016 FECAL OCCULT BLOOD FECAL OCCULT BLOOD [facility] Start: 04-04-2016 Screening for malignant neoplasm of colon Fecal Occult Blood [facility] Start: 2011 RSV Vaccine (1 - 1-dose 60+ series) RSV Vaccine (1 - 1-dose 60+ series) [facility] Start: 01-20-1996 COLOGUARD (FIT-DNA) COLOGUARD (FIT-DNA) [facility] Start: 01-20-[address] COLONOGRAPHY [facility] Start: 01-20-1996 Screening for malignant neoplasm of colon [facility] Start: 01-20-1996 SIGMOIDOSCOPY SIGMOIDOSCOPY [facility] Start: 1969 Anxiety Screening Anxiety Screening [facility] Start: 1969 BP CONTROLLED (<130/80) BP CONTROLLED (<130/80) [facility] Start: 1969 Depression Screening Depression Screening [facility] Bacteria identified in Body fluid by Culture BACTERIAL CULTURE AND GRAM STAIN, STERILE BODY FLUID Microbiology Routine Pain in prosthetic joint, initial encounter Status post hip replacement, right 10/26/2024 1:26 PM EDT [facility] Work Phone: Bacteria identified in Urine by Culture BACTERIAL CULTURE, URINE Microbiology Routine Dysuria Ordered: 03/31/2024 [facility] Work Phone: Comment on above: Ordered: 03/31/2024 Basic metabolic 2008 panel with ionized calcium - Serum or Plasma [facility] Cardiac event recording [facility] CBC W Auto Different ial panel - Blood [facility] End: 06-10-2025 CT Hip - right WO contrast CT HIP WO IVCON RIGHT Radiology Routine Primary osteoarthritis of right hip Preoperative examination 1 Occurrences starting 05/11/2024 until 06/10/2025 [facility] Comment on above: 1 Occurrences starting 05/11/2024 until 06/10/2025 CT Hip - right WO contrast CT HIP WO IVCON RIGHT Radiology Routine Primary osteoarthritis of right hip Preoperative examination 06/07/2024 2:14 PM EDT [facility] Work Phone: End: 02-25-2025 DBT Breast - bilateral screening JOEL SCREENING W DIALLO Radiology Routine Encounter for screening mammogram for breast cancer 1 Occurrences starting 01/27/2024 until 02/25/2025 [facility] Work Phone: Comment on above: 1 Occurrences starting 01/27/2024 until 02/25/2025 DBT Breast - bilater al screening JOEL SCREENING W DIALLO Radiology Routine Encounter for screening mammogram for breast cancer 02/22/2024 11:28 AM EST [facility] Work Phone: End: 05-24-2022 ECG COMPLETE ECG COMPLETE ECG Routine Premature beats 1 Occurrences starting 05/24/2021 until 05/24/2022 [facility] Work Phone: Comment on above: 1 Occurrences starting 05/24/2021 until 05/24/2022 ECG COMPLETE ECG COMPLETE ECG Routine Pre-op evaluation Hypertension, essential SIOBHAN on CPAP Hyperlipidemia LDL goal <100 Chronic kidney insufficiency, stage 3 (moderate) (HCC) Obesity, Class I, BMI 30-34.9 Venous insufficiency Ordered: 06/07/2024 [facility] Work Phone: Comment on above: Ordered: 06/07/2024 Influenza virus A an d B RNA and SARS-CoV-2 (COVID-19) N gene panel - Respiratory specimen by MEJIA with probe detection COVID WITH FLUA+B, ROUTINE Microbiology Routine URI, acute 08/14/2021 3:16 PM EDT [facility] Work Phone: End: 02-25-2024 JOEL SCREENING JOEL SCREENING Radiology Routine Encounter for screening mammogram for breast cancer 1 Occurrences starting 01/26/2023 until 02/25/2024 [facility] Work Phone: Comment on above: 1 Occurrences starting 01/26/2023 until 02/25/2024 JOEL SCREENING JOEL SCREENING Ra diology Routine Encounter for screening mammogram for breast cancer 02/20/2023 12:34 PM EST [facility] Work Phone: End: 07-09-2025 NM Heart Perfusion W stress and W radionuclide IV NM CARDIAC PERF STRESS/PHARM Radiology Routine Atrial flutter, unspecified type (HCC) Abnormal electrocardiogram (ECG) (EKG) 1 Occurrences starting 06/09/2024 until 07/09/2025 [facility] Comment on above: 1 Occurrences starting 06/09/2024 until 07/09/2025 Patient Education AFib Dc [facility] Work Phone: Patient referral [facility] Work Phone: Removal impacted cer umen irrigation/lvg unilat AMBULATORY EAR LAVAGE/IRRIGATION Procedures Routine Impacted cerumen of right ear Ordered: 04/23/2023 [facility] Work Phone: Comment on above: Ordered: 04/23/2023 End: 02-23-2023 Screening mammography bi 2-view breast inc cad JOEL SCREENING Radiology Routine Encounter for screening mammogram for breast cancer 1 Occurrences starting 01/24/2022 until 02/23/2023 [facility] Work Phone: Comment on above: 1 Occurrences starting 01/24/2022 until 02/23/2023 SURGICAL PATHOLOGY SURGICAL PATH OLOGY Lab Routine Neoplasm of uncertain behavior of skin of back Ordered: 01/12/2024 [facility] Work Phone: Comment on above: Ordered: 01/12/2024 US.doppler Lower extremity vessels [facility] End: 09-10-2024 XR Chest PA and Lateral XR CHEST 2V FRONTAL/LAT Radiology Routine Bronchitis with bronchospasm 1 Occurrences starting 08/12/2023 until 09/10/2024 [facility] Work Phone: Comment on above: 1 Occurrences starting 08/12/2023 until 09/10/2024 XR Chest PA and Lateral XR CHEST 2V FRONTAL/LAT Radiology Routine Bronchitis with bronchospasm 08/12/2023 9:16 AM EDT [facility] End: 06-10-2025 XR Lumbar spine Single view XR LUMBAR SPECIFY 1V Radiology Routine Primary osteoarthritis of right hip 1 Occurrences starting 05/11/2024 until 06/10/2025 [facility] Work Phone: Comment on above: 1 Occurrences starting 05/11/2024 until 06/10/2025 XR Lumbar spine Sing le view XR LUMBAR SPECIFY 1V Radiology Routine Primary osteoarthritis of right hip 05/11/2024 10:54 AM EST [facility] End: 02-25-2025 XR Pelvis and Hip - right AP and Lateral frog XR HIP GENERAL 3V PELV/AP/LAT RIGHT Radiology Routine Right hip pain 1 Occurrences starting 01/27/2024 until 02/25/2025 [facility] Comment on above: 1 Occurrences starting 01/27/2024 until 02/25/2025 XR Pelvis and Hip - right AP and Lateral frog XR HIP GENERAL 3V PELV/AP/LAT RIGHT Radiology Routine Right hip pain 01/27/2024 11:49 AM EST [facility] End: 08-10-2025 XR Pelvis and Hip - right AP and Lateral frog XR HIP GENERAL 3V PELV/AP/LAT RIGHT Radiology Routine Status post right hip replacement 1 Occurrences starting 07/11/2024 until 08/10/2025 [facility] Work Phone: Comment on above: 1 Occurrences starting 07/11/2024 until 08/10/2025 End: 08-20-2025 XR Pelvis and Hip - right AP and Lateral frog XR HIP GENERAL 3V PELV/AP/LAT RIGHT Radiology Routine Status post right hip replacement 1 Occurrences starting 07/20/2024 until 08/20/2025 [facility] Work Phone: Comment on above: 1 Occurrences starting 07/20/2024 until 08/20/2025 End: 09-16-2025 XR Pelvis and Hip - right AP and Lateral frog XR HIP GENERAL 3V PELV/AP/LAT RIGHT Radiology Routine Status post right hip replacement 1 Occurrences starting 08/17/2024 until 09/16/2025 [facility] Work Phone: Comment on above: 1 Occurrences starting 08/17/2024 until 09/16/2025 End: 09-30-2025 XR Pelvis and Hip - right AP and Lateral frog XR HIP GENERAL 3V PELV/AP/LAT RIGHT Radiology Routine Status post right hip replacement 1 Occurrences starting 08/31/2024 until 09/30/2025 [facility] Work Phone: Comment on above: 1 Occurrences starting 08/31/2024 until 09/30/2025 XR Pelvis and Hip - right AP and Lateral frog XR HIP GENERAL 3V PELV/AP/LAT RIGHT Radiology Routine Status post right hip replacement Pain in prosthetic joint, initial encounter 10/14/2024 11:55 AM EDT [facility] Work Phone: End: 12-28-2024 XR Pelvis and Hip - right AP and Lateral frog XR HIP GENERAL 3V PELV/AP/LAT RIGHT Radiology Routine Status post hip replacement, right 1 Occurrences starting 11/03/2024 until 12/28/2024 [facility] Work Phone: Comment on above: 1 Occurrences starting 11/03/2024 until 12/28/2024 [facility] Immunizations Immunization Date Immunization Notes Care Provider [facility] 11-23-2023 COVID-19 vaccine, ag e 12+ yr (PFIZER-BIONTECH COMIRNATY) Bethany Hodges MD Work Phone: [facility] 11-23-2023 influenza (aIIV4) vaccine, age 65+ yr, quadrivalent, PF (FLUAD QUAD) Bethany Hodges MD Work Phone: [facility] 11-23-2023 influenza, high dose seasonal, preservative-free Dr. 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 Work Phone: [facility] 12-08-2022 influenza (HD-IIV4) vaccine, age 65+ yr, high dose, quadrivalent, PF (FLUZONE HIGH-DOSE) Navdeep Holcomb MD Work Phone: [facility] 12-08-2022 influenza, high dose seasonal, preservative-free Mary Older 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 Work Phone: [facility] Work Phone: 12-26-2021 COVID-19 booster vaccine, age 12+ yr, bivalent (PFIZER-BIONTECH) Mary Older CASINO ENFORCEMENT AGENT.[facility] Work Phone: [facility] Work Phone: 12-26-2021 influenza (HD-IIV4) vaccine, age 65+ yr, high dose, quadrivalent, PF (FLUZONE HIGH-DOSE) Screen [facility] Work Phone: 12-26-2021 influenza, high dose seasonal, preservative-free Mary Older 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 Work Phone: [facility] Work Phone: 03-07-2021 COVID-19 vaccine, ag e 12+ yr (PFIZER-BIONTECH - PURPLE TOP) Navdeep Holcomb MD Work Phone: [facility] Work Phone: 12-27-2020 influenza (HD-IIV4) vaccine, age 65+ yr, high dose, quadrivalent, PF (FLUZONE HIGH-DOSE) Screen [facility] Work Phone: 12-27-2020 influenza, high dose seasonal, preservative-free Navdeep Holcomb MD Work Phone: [facility] Work Phone: 12-27-2020 zoster vaccine recombinant Navdeep Holcomb MD Work Phone: [facility] Work Phone: 10-25-2020 zoster vaccine recombinant Navdeep Holcomb MD Work Phone: [facility] Work Phone: 06-21-2020 COVID-19 vaccine, ag e 12+ yr (PFIZER-BIONTECH - PURPLE TOP) Navdeep Holcomb MD Work Phone: [facility] Work Phone: 06-07-2020 Covid (Pfizer) Dr. New Bear MD Work Phone: [facility] 05-31-2020 COVID-19 vaccine, ag e 12+ yr (PFIZER-BIONTECH - PURPLE TOP) Navdeep Holcomb MD Work Phone: [facility] Work Phone: 11-15-2019 influenza (HD-IIV4) vaccine, age 65+ yr, high dose, quadrivalent, PF (FLUZONE HIGH-DOSE) Screen [facility] Work Phone: 11-15-2019 influenza, high dose seasonal, preservative-free Navdeep Holcomb MD Work Phone: [facility] 01-14-2019 influenza, high dose seasonal, preservative-free Navdeep Holcomb MD Work Phone: [facility] 01-14-2019 pneumococcal polysaccharide vaccine, 23 valent Navdeep Holcomb MD Work Phone: [facility] 08-06-2018 pneumococcal polysaccharide vaccine, 23 valent Navdeep Holcomb MD Work Phone: [facility] 01-04-2018 influenza, high dose seasonal, preservative-free Navdeep Holcomb MD Work Phone: [facility] 2017 influenza, high dose seasonal, preservative-free [facility] Work Phone: 2017 pneumococcal conjuga te vaccine, 13 valent Screen [facility] Work Phone: 03-28-2016 influenza, high dose seasonal, preservative-free Navdeep Holcomb MD Work Phone: [facility] 03-28-2016 pneumococcal conjuga te vaccine, 13 valent Navdeep Holcomb MD Work Phone: [facility] 01-25-2015 influenza, injectabl e, quadrivalent, preservative free [facility] Work Phone: 01-25-2015 influenza, seasonal, injectable Navdeep Holcomb MD Work Phone: [facility] 01-06-2014 influenza, seasonal, injectable Navdeep Holcomb MD Work Phone: [facility] 02-18-2012 zoster vaccine, live Navdeep Holcomb MD Work Phone: [facility] 12-12-2008 influenza virus vacc ine, unspecified formulation Navdeep Holcomb MD Work Phone: [facility] Work Phone: 03-24-2007 tetanus toxoid, redu wing diphtheria toxoid, and acellular pertussis vaccine, adsorbed Navdeep Holcomb MD Work Phone: [facility] Work Phone: Payers Date Payer Category Payer Self-pay 2019 Private Health Insurance [id number] 2019 Unknown HOSPITAL/MEDICAL GENERIC MEDICAL GENERIC [id number] 2019-Present [phone] [address] [address] [place] [address] Indemnity [id number] 2019 Unknown [id number] 2019 Unknown [id number] 2016 Medicare MEDICARE MEDICAR E A AND B [id number] 2016-Present [phone] [address] [address] [place] [address] Medicare [id number] 2016 Medicare [id number] 2016 Medicare [id number] Private Health Insurance [id number] Unknown [id number] Unknown [id number] Unknown [id number] Unknown [id number] Unknown [id number] Unknown [id number] Unknown [id number] Unknown [id number] Unknown [id number] Unknown [id number] Unknown [id number] Unknown [id number] Unknown [id number] Unknown [id number] Unknown [id number] Social History Date Type Detail Facility Start: 12-26-2011 End: 08-25-2024 Tobacco smoking status [facility] Never smoked tobacco [facility] Work Phone: Start: 02-18-2021 End: 10-31-2024 Alcohol intake Current non-drinker of alcohol (finding) [facility] Start: 03-21-2020 History SDOH Alcohol Frequency 1 [facility] Start: 03-21-2020 History SDOH Social Connections Phone 5 [facility] Start: 03-21-2020 History SDOH Social Connections Mormonism 3 [facility] Start: 03-21-2020 History SDOH Physica l Activity MPS 2 [facility] Start: 03-21-2020 Education 16 [facility] Start: 1950 Sex Assigned At Female C [facility] Start: 05-14-2021 End: 08-14-2021 Exposure to SARS-CoV-2 (event) Not sure [facility] Start: 12-26-2011 Tobacco use and exposure Smoke less tobacco non-user [facility] Start: 03-21-2020 End: 06-07-2024 History of Social function [facility] Start: 03-21-2020 End: 06-07-2024 Social connection and isolation panel [facility] Do you belong to any clubs or organizations such as jainism groups, unions, fraternal or athletic groups, or school groups? Yes [facility] Are you now , , , , never or living with a partner? [facility] How often to you hav e a drink containing alcohol? Never [facility] Start: 02-08-2012 Average Number of Drinks Not on file [facility] Do you feel stress - tense, restless, nervous, or anxious, or unable to sleep at night because your mind is troubled all the time - these days [OSQ] To some extent [facility] (I/We) worried wheth er (my/our) food would run out before (I/we) got money to buy more. Never true [facility] In the past 12 month s, was there a time when you were not able to pay the mortgage or rent on time? No [facility] Start: 01-31-2020 Gender identity Identifies as female gender (finding) [facility] How hard is it for y ou to pay for the very basics like food, housing, medical care, and heating Not very hard [facility] Do you feel stress - tense, restless, nervous, or anxious, or unable to sleep at night because your mind is troubled all the time - these days [OSQ] Not at all [facility] Do you feel stress - tense, restless, nervous, or anxious, or unable to sleep at night because your mind is troubled all the time - these days [OSQ] Only a little [facility] Medical Equipment Procedure Code Equipment Code Equipment Origin al Text Equipment Identifier Dates Total cholecystectomy with exploration of common bile duct CLIP,NYLA RODRIGUEZ FDA Start: 09-25-2020 Total cholecystectomy with exploration [...] with exploration of common bile duct CLIP,HEMOLOCK MARLIN WECK FDA Start: 09-25-2020 Total cholecystectomy with [...] with exploration of common bile duct CLIP,HEMOLOCK MARLIN WECK FDA Start: 09-25-2020 Total cholecystectomy with [...] with exploration of common bile duct CLIP,HEMOLOCK MARLIN FARIASCK FDA Start: 09-25-2020 Total cholecystectomy with exploration of common bile duct CLIP,HEMVALENCIA ISAAC WECK FDA Start: 09-25-2020 Total cholecystectomy with exploration of common bile duct SURGICEL SNOW ABS 1X2 FDA Start: 09-25-2020 Total cholecystectomy with exploration of common bile duct SURGICEL SNOW ABS 1X2 FDA Start: 09-25-2020 Total cholecystectomy with exploration of common bile duct SURGICEL SNOW ABS 1X2 FDA Start: 09-25-2020 Total cholecystectomy with exploration of common bile duct CLIP,HEMVALENCIA ISAAC WECK FDA Start: 09-25-2020 Total cholecystectomy with exploration of common bile duct CLIP,HEMOLOVERN ISAAC WECK FDA Start: 09-25-2020 Total cholecystectomy with exploration of common bile duct SURGICEL SNOW ABS 1X2 FDA Start: 09-25-2020 Total cholecystectomy with exploration of common bile duct SURGICEL SNOW ABS 1X2 FDA Start: 09-25-2020 Total cholecystectomy with exploration of common bile duct SURGICEL SNOW ABS 1X2 FDA Start: 09-25-2020 Total cholecystectomy with exploration of common bile duct CLIP,NYLA RODRIGUEZ FDA Start: 09-25-2020 Total cholecystectomy with exploration of common bile duct CLIP,HEMOLOVERN ISAAC WECK FDA Start: 09-25-2020 Total cholecystectomy with exploration of common bile duct SURGICEL SNOW ABS 1X2 FDA Start: 09-25-2020 Total cholecystectomy with exploration of common bile duct SURGICEL SNOW ABS 1X2 FDA Start: 09-25-2020 Total cholecystectomy with exploration of common bile duct SURGICEL SNOW ABS 1X2 FDA Start: 09-25-2020 Total cholecystectomy with exploration of common bile duct CLIP,NYLA RODRIGUEZ FDA Start: 09-25-2020 Total cholecystectomy with exploration of common bile duct CLIP,HEMOLOVERN MED WECK FDA Start: 09-25-2020 Total cholecystectomy with exploration of common bile duct SURGICEL SNOW ABS 1X2 FDA Start: 09-25-2020 Total cholecystectomy with exploration of common bile duct SURGICEL SNOW ABS 1X2 FDA Start: 09-25-2020 Total cholecystectomy with exploration of common bile duct SURGICEL SNOW ABS 1X2 FDA Start: 09-25-2020 Total cholecystectomy with exploration of common bile duct CLIP,NYLA RODRIGUEZ FDA Start: 09-25-2020 Total cholecystectomy with exploration of common bile duct CLIP,HEMOLOVERN RODRIGUEZ FDA Start: 09-25-2020 Total cholecystectomy with exploration of common bile duct SURGICEL SNOW ABS 1X2 FDA Start: 09-25-2020 Total cholecystectomy with exploration of common bile duct SURGICEL SNOW ABS 1X2 FDA Start: 09-25-2020 Total cholecystectomy with exploration of common bile duct SURGICEL SNOW ABS 1X2 FDA Start: 09-25-2020 Insert Acetabula r 36mm 0d D Hip X3 Trident Sterile Latex Free - [id number] Start: 06-30-2024 Stem Accolade Ii 5 127d Femoral - [id number] Start: 06-30-2024 Shell Trident Ii 50mm D Tritanium Acetabular 3 Screw Hole Cluster Sterile - [id number] Start: 06-30-2024 Head V40 36mm 0m m Offset Taper Biolox Delta Femoral Hip - [id number] Start: 06-30-2024 Screw Trident Ii 6.5mm 25mm Bone Low Profile Hexagonal Sterile - [id number] Start: 06-30-2024 Goals Date Patient Goal Desired Activity /State Functional Status Date Assessment Result Facility 09-06-2024 Total score [AUDIT-C] 0 09/07/19 3:16 PM EDT User, Arthur [facility] 09-06-2024 How often to you hav e a drink containing alcohol? Never 09/06/2024 3:16 PM EDT User, Jamiejulitat Never [facility] 09-06-2024 Functional status Patient does n ot drink 09/06/2024 3:16 PM EDT User, Jamietheodore Patient does not drink [facility] 09-06-2024 How often do you hav e 6 or more drinks on 1 occasion? Never 09/06/2024 3:16 PM EDT User, Jamiejulitat Never [facility] 07-22-2024 Functional status Up ad bhavya;Chair;Bathroom Privilege [facility] Work Phone: 07-06-2024 Are you deaf, or do you have serious difficulty hearing No 07/06/2024 10:33 AM EDT Karen Buchanan RN No [facility] 07-06-2024 Are you blind, or do you have serious difficulty seeing, even when wearing glasses No 07/06/2024 10:33 AM Karen Palumbo, JACOB No [facility] 07-06-2024 Do you have serious difficulty walking or climbing stairs Yes 07/06/2024 10:33 AM Karen Palumbo, RN Yes [facility] 07-06-2024 Do you have difficul ty dressing or bathing Yes 07/06/2024 10:33 AM Karen Palumbo, JACOB Yes [facility] 07-06-2024 Because of a physica l, mental, or emotional condition, do you have difficulty doing errands alone such as visiting a physician's office or shopping Yes 07/06/2024 10:33 AM Karen Palumbo RN Yes [facility] 06-08-2024 Humiliation, Afraid, Rape, and Kick questionnaire [HARK] [facility] 12-29-2016 Are you deaf, or do you have serious difficulty hearing No 12/29/2016 6:32 PM Parth Parra III, MD No [facility] 12-29-2016 Are you blind, or do you have serious difficulty seeing, even when wearing glasses No 12/29/2016 6:32 PM Parth Parra III, MD No [facility] 12-29-2016 Do you have serious difficulty walking or climbing stairs No 12/29/2016 6:32 PM Parth Parra III, MD No [facility] 12-29-2016 Do you have difficul ty dressing or bathing No 12/29/2016 6:32 PM Parth Parra III, MD No [facility] 12-29-2016 Because of a physica l, mental, or emotional condition, do you have difficulty doing errands alone such as visiting a physician's office or shopping No 12/29/2016 6:32 PM Parth Parra III, MD No [facility] Mental Status Date Assessment Result Facility 08-25-2024 Cognitive function Voice/Name [facility] Work Phone: 07-22-2024 Cognitive function Voice/Name [facility] Work Phone: 07-06-2024 Because of a physica l, mental, or emotional condition, do you have serious difficulty concentrating, remembering, or making decisions Yes 07/06/2024 10:33 AM EDT Karen Buchanan, JACOB Yes [facility] 12-29-2016 Because of a physica l, mental, or emotional condition, do you have serious difficulty concentrating, remembering, or making decisions No 12/29/2016 6:32 PM EDT Parth Oropeza III, MD No [facility] Clinical Notes 08-09-2015 to 11-03-2024 Patient InstructionsKasie Escobar RN - 11/03/2024 10:07 AM Eligio Pastor MD - 10/31/2024 10:15 AM Alka Howard RT(R) - 10/26/2024 1:00 PM EDT Note Date & Type Note Facility 11-03-2024 Instructions Kasie Escobar RN - 11/03/2024 10:31 AM EDT Change dressing every other day Clean area by showering; pat dry area Then place xeroform (yellow dressing) over blistered sites Gauze then wrap with SHALONDA or place compression stocking Call if needing to be seen in office to schedule with Kasie JAMES if not healing or concerns- [phone] documented in this encounter [facility] 11-03-2024 Note HNO ID: [id number] Author: KASIE ESCOBAR RN Service: ? Author Type: Registered Nurse Type: Progress Notes Filed: 11/03/2024 11:34 Note Text: Patient here for a wound check. She came in last week with BLE edema and blistering on the RLE around ankle. S/p R SYLVESTER 06/2024. Has significantly improved. Three small scabbed areas and one open blister the size of a quarter remain. Erythema resolved as well as improved edema. Patient compliant with wound care and compression this week. Cleaned area and placed xeroform, gauze and tubigrip. Gave supplies and instructions on dressing changes. Patient verbalized understanding. will assist her. She sees cardiology at [facility]. Has plans for pacemaker to be placed 11/17/24 to resolve BLE. She will continue to monitor site and care for it. She will call with concerns. Otherwise she is scheduled for a f/u with Jamal Larios PAC in December. [facility] 11-03-2024 History of Presen t illness Narrative Patient here for a wound check. She came in last week with BLE edema and blistering on the RLE around ankle. S/p R SYLVESTER 06/2024. Has significantly improved. Three small scabbed areas and one open blister the size of a quarter remain. Erythema resolved as well as improved edema. Patient compliant with wound care and compression this week. Cleaned area and placed xeroform, gauze and tubigrip. Gave supplies and instructions on dressing changes. Patient verbalized understanding. will assist her. She sees cardiology at [facility]. Has plans for pacemaker to be placed 11/17/24 to resolve BLE. She will continue to monitor site and care for it. She will call with concerns. Otherwise she is scheduled for a f/u with Jamal Larios PAC in December. documented in this encounter [facility] 10-31-2024 History of Presen t illness Narrative Orthopaedic Office Note: History/Subjective: Azalea Mott is a 74 year old female who presents for 4 month follow up for their R SYLVESTER. Patient was doing well until around a few weeks ago when she started to develop right hip pain. Patient had an elevated ESR 37 CRP within normal limits. Underwent aspiration with interventional radiology and found to have 2300 nucleated cells with 89% PMNs with negative culture. Patient states that overall her right hip pain has improved without any medication or intervention. She had groin pain prior to the aspiration. Since her aspiration and around couple weeks afterwards her groin pain went away. She is dealing with bilateral lower extremity edema. She does have history of congestive heart failure and is about to get a pacemaker as well. She has blistering in both bilateral lower extremities. Imaging: X-ray of the hip -This shows a well-fixed cementless total hip arthroplasty components with no signs of loosening or lucencies in the acetabular femoral component. There is no subsidence. The ball is concentrically inside the acetabulum Physical Examination: Exam shows incision is well-healed with no signs of dehiscence erythema or fluctuance. Motion is 0 to 100 degrees with flexion and 10 degrees of internal rotation 20 degrees of external rotation. Motor is 5/5 DF PF EHL and KE sensation is intact over the peripheral nerve distribution -Bilateral lower extremity has pitting edema around 2-3+ with blistering in the right and left lower extremity with some serous fluid. Assessment and Plan: Patient is now 4 months out from SYLVESTER with bilateral edema likely cardiogenic related given that is bilateral with blistering. -Will provide compressive wraps to the legs to fitter helper in her swelling, also dressed the blisters with Xeroform dressing. Advised that she needs to follow-up with her PCP/industrial laborer regarding this bilateral lower extremity swelling right is obviously worse as she had recent surgery. - Will follow-up on for check of these blisters to make sure they are improving I spent a total of approximately 15 minutes on the date of the service which included preparing to see the patient, [id number] patient care, completing clinical documentation, obtaining and/or reviewing separately obtained history, performing a medically appropriate examination, counseling and educating the patient/family/caregiver, and care coordination (not separately reported). Eligio Bergeron MD Associate Staff Physician [facility] Department of Orthopedic Surgery documented in this encounter [facility] 10-31-2024 Note HNO ID: [id number] Author: ELIGIO BERGERON MD Service: ? Author Type: Physician Type: Progress Notes Filed: 10/31/2024 10:36 Note Text: Orthopaedic Office Note: History/Subjective: Azalea Mott is a 74 year old female who presents for 4 month follow up for their R SYLVESTER. Patient was doing well until around a few weeks ago when she started to develop right hip pain. Patient had an elevated ESR 37 CRP within normal limits. Underwent aspiration with interventional radiology and found to have 2300 nucleated cells with 89% PMNs with negative culture. Patient states that overall her right hip pain has improved without any medication or intervention. She had groin pain prior to the aspiration. Since her aspiration and around couple weeks afterwards her groin pain went away. She is dealing with bilateral lower extremity edema. She does have history of congestive heart failure and is about to get a pacemaker as well. She has blistering in both bilateral lower extremities. Imaging: X-ray of the hip -This shows a well-fixed cementless total hip arthroplasty components with no signs of loosening or lucencies in the acetabular femoral component. There is no subsidence. The ball is concentrically inside the acetabulum Physical Examination: Exam shows incision is well-healed with no signs of dehiscence erythema or fluctuance. Motion is 0 to 100 degrees with flexion and 10 degrees of internal rotation 20 degrees of external rotation. Motor is 5/5 DF PF EHL and KE sensation is intact over the peripheral nerve distribution -Bilateral lower extremity has pitting edema around 2-3+ with blistering in the right and left lower extremity with some serous fluid. Assessment and Plan: Patient is now 4 months out from SYLVESTER with bilateral edema likely cardiogenic related given that is bilateral with blistering. -Will provide compressive wraps to the legs to fitter helper in her swelling, also dressed the blisters with Xeroform dressing. Advised that she needs to follow-up with her PCP/industrial laborer regarding this bilateral lower extremity swelling right is obviously worse as she had recent surgery. - Will follow-up on for check of these blisters to make sure they are improving I spent a total of approximately 15 minutes on the date of the service which included preparing to see the patient, [id number] patient care, completing clinical documentation, obtaining and/or reviewing separately obtained history, performing a medically appropriate examination, counseling and educating the patient/family/caregiver, and care coordination (not separately reported). Eligio Bergeron MD Associate Staff Physician [facility] Department of Orthopedic Surgery [facility] 10-26-2024 History of Presen t illness Narrative Radiology Service Progress Note PATIENT NAME: Azalea Mott DATE OF SERVICE: October 26, 2024 TIME: 1:46 PM PATIENT IDENTITY VERIFICATION COMPLETED USING TWO [...] PATIENT PRESENTS WITH AN IMPLANTABLE OR ATTACHED MEDICAL CHEMIST: No RADIOLOGY DEPARTMENT: General X-ray: Exam(s) Completed: ASPIRATION RIGHT HIP PERIPHERAL IV DATA: Not applicable SIGNED BY: RT Rissa(Magdy) October 26, 2024 1:46 PM documented in this encounter [facility] 10-26-2024 Note HNO ID: [id number] Author: ALKA VARGAS RT(R) Service: Radiology Author Type: Technologist Type: Progress Notes Filed: 10/26/2024 13:46 Note Text: Radiology Service Progress Note PATIENT NAME: Azalea Mott DATE OF SERVICE: October 26, 2024 TIME: 1:46 PM PATIENT IDENTITY VERIFICATION COMPLETED USING TWO [...] PATIENT PRESENTS WITH AN IMPLANTABLE OR ATTACHED MEDICAL CHEMIST: No RADIOLOGY DEPARTMENT: General X-ray: Exam(s) Completed: ASPIRATION RIGHT HIP PERIPHERAL IV DATA: Not applicable SIGNED BY: RT Rissa(Magdy) October 26, 2024 1:[address] [facility] 10-25-2024 History of Presen t illness Narrative Subjective Azalea Mott is a 74 year old female here with Uli. Patient presents with: F/U 3 Month She continued to have significant edema of both legs and skin breakdown of the right leg. She was on diuretics furosemide and aldactone. Her hypertension was stable. Atrial fibrillation was recently evaluated by Dr. Greg Turk, for consideration of pacemaker implantation. She was informed she was not a candidate for pacemaker at this time. ACTIVE PROBLEM LIST Hearing Loss in Left Ear Primary Osteoarthritis of Right Hip Hyperlipidemia Ldl Goal <100 Hypertension, Essential Siobhan On Cpap Obesity, Class I, Bmi 30-34.9 Chronic Kidney Insufficiency, Stage 3 (Moderate) (Hcc) Impaired Fasting Glucose Venous Insufficiency Heart Valve Disease Mild Pulmonary Hypertension (Hcc) S/P Total Right Hip Arthroplasty Atrial Fibrillation (Hcc) Other Specified Postprocedural States Congestive Heart Failure (Hcc) Social History Tobacco Use Smoking status: Never Smokeless tobacco: Never Vaping Use Vaping status: Never Used Substance Use Topics Alcohol use: No Drug use: No Current Outpatient Medications Medication Sig meloxicam (MOBIC) 7.5 mg tablet Take 1 tablet by mouth once daily. spironolactone (ALDACTONE) 25 mg tablet Take 1 tablet by mouth once daily. furosemide (LASIX) 40 mg tablet Take 1 tablet by mouth once daily. atorvastatin (LIPITOR) 10 mg tablet Take 1 tablet by mouth daily at bedtime. For cholesterol. metoprolol tartrate, short acting, (LOPRESSOR) 100 mg tablet Take 1 tablet by mouth every 12 hours. polyethylene glycol 3350 17 gram/dose powder Take 17 g by mouth as needed for constipation. Dissolve dose in 4 - 8 ounces of liquid and take as directed. MULTIVITAMIN ORAL Take 1 tablet by mouth once daily. acetaminophen (TYLENOL) 500 mg tablet Take 2 tablets by mouth every 8 hours as needed for pain. apixaban (ELIQUIS) 5 mg tab(s) Take 1 tablet by mouth two times a day. CPAP CPAP Supplies, All Necessary equipment including [...] Take 2,000 Units by mouth once daily. No current facility-administered medications for this visit. Review of Systems Constitutional: Negative for fatigue and fever. Respiratory: Negative for shortness of breath. Cardiovascular: Positive for leg swelling. Negative for chest pain and palpitations. Genitourinary: Negative for dysuria. Skin: Positive for wound. Objective BP 114/70 (BP Site: Left Arm, BP Position: Sitting, BP Cuff Size: Large Adult) Pulse 104 Temp 36.8 C (98.3 F) (Temporal) Resp 20 Wt 95.8 kg (211 lb 3.2 oz) BMI 34.09 kg/m Physical Exam Constitutional: General: She is not in acute distress. Cardiovascular: Rate and Rhythm: Tachycardia present. Rhythm irregular. Heart sounds: S1 normal and S2 normal. No murmur heard. No gallop. Pulmonary: Effort: No respiratory distress. Breath sounds: No wheezing or rales. Musculoskeletal: General: No tenderness. Right lower le+ Edema present. Left lower le+ Edema present. Skin: Comments: Few scattered erosions of right lower leg, some with serous drainage. No cellulitis or lymphangitis. Neurological: Mental Status: She is alert. Latest Ref Rng 10/14/2024 Glucose 74 - 99 mg/dL 94 BUN 7 - 21 mg/dL 26 (H) Creatinine 0.58 - 0.96 mg/dL 1.17 (H) Sodium 136 - 144 mmol/L 138 Potassium 3.7 - 5.1 mmol/L 4.6 Chloride 98 - 107 mmol/L 100 CO2 22 - 30 mmol/L 31 (H) Anion Gap 8 - 15 mmol/L 7 (L) Calcium 8.5 - 10.2 mg/dL 10.1 eGFR >=60 mL/min/1.73m 49 (L) Legend: (H) High (L) Low ASSESSMENT/PLAN: 1. Atrial fibrillation, unspecified type (HCC) - ICD9: 427.31, ICD10: I48.91 (primary diagnosis) Stable. Anticoagulated. 2. Congestive heart failure, unspecified HF chronicity, unspecified heart failure type (HCC) - ICD9: 428.0, ICD10: I50.9 - Compensated - FUROSEMIDE 40 MG TABLET. Resume original BID dosing. This is from her industrial laborer. 3. Venous insufficiency - ICD9: 459.81, ICD10: I87.2 See above. - FUROSEMIDE 40 MG TABLET 4. Chronic kidney insufficiency, stage 3 (moderate) (HCC) - ICD9: 585.3, ICD10: N18.30 - eGFR: 49 Stable. Monitor with increased diuresis. - Counseled on avoiding NSAIDs, adequate hydration. - BASIC METABOLIC PANEL Navdeep Holcomb MD documented in this encounter [facility] 10-25-2024 Note HNO ID: [id number] Author: NAVDEEP HOLCOMB MD Service: ? Author Type: Physician Type: Progress Notes Filed: 10/26/2024 09:08 Note Text: Subjective Azalea Mott is a 74 year old female here with Uli. Patient presents with: F/U 3 Month She continued to have significant edema of both legs and skin breakdown of the right leg. She was on diuretics furosemide and aldactone. Her hypertension was stable. Atrial fibrillation was recently evaluated by Dr. Greg Turk, for consideration of pacemaker implantation. She was informed she was not a candidate for pacemaker at this time. ACTIVE PROBLEM LIST Hearing Loss in Left Ear Primary Osteoarthritis of Right Hip Hyperlipidemia Ldl Goal <100 Hypertension, Essential Siobhan On Cpap Obesity, Class I, Bmi 30-34.9 Chronic Kidney Insufficiency, Stage 3 (Moderate) (Hcc) Impaired Fasting Glucose Venous Insufficiency Heart Valve Disease Mild Pulmonary Hypertension (Hcc) S/P Total Right Hip Arthroplasty Atrial Fibrillation (Hcc) Other Specified Postprocedural States Congestive Heart Failure (Hcc) Social History Tobacco Use Smoking status: Never Smokeless tobacco: Never Vaping Use Vaping status: Never Used Substance Use Topics Alcohol use: No Drug use: No Current Outpatient Medications Medication Sig meloxicam (MOBIC) 7.5 mg tablet Take 1 tablet by mouth once daily. spironolactone (ALDACTONE) 25 mg tablet Take 1 tablet by mouth once daily. furosemide (LASIX) 40 mg tablet Take 1 tablet by mouth once daily. atorvastatin (LIPITOR) 10 mg tablet Take 1 tablet by mouth daily at bedtime. For cholesterol. metoprolol tartrate, short acting, (LOPRESSOR) 100 mg tablet Take 1 tablet by mouth every 12 hours. polyethylene glycol 3350 17 gram/dose powder Take 17 g by mouth as needed for constipation. Dissolve dose in 4 - 8 ounces of liquid and take as directed. MULTIVITAMIN ORAL Take 1 tablet by mouth once daily. acetaminophen (TYLENOL) 500 mg tablet Take 2 tablets by mouth every 8 hours as needed for pain. apixaban (ELIQUIS) 5 mg tab(s) Take 1 tablet by mouth two times a day. CPAP CPAP Supplies, All Necessary equipment including [...] Take 2,000 Units by mouth once daily. No current facility-administered medications for this visit. Review of Systems Constitutional: Negative for fatigue and fever. Respiratory: Negative for shortness of breath. Cardiovascular: Positive for leg swelling. Negative for chest pain and palpitations. Genitourinary: Negative for dysuria. Skin: Positive for wound. Objective BP 114/70 (BP Site: Left Arm, BP Position: Sitting, BP Cuff Size: Large Adult) Pulse 104 Temp 36.8 ?C (98.3 ?F) (Temporal) Resp 20 Wt 95.8 kg (211 lb 3.2 oz) BMI 34.09 kg/m? Physical Exam Constitutional: General: She is not in acute distress. Cardiovascular: Rate and Rhythm: Tachycardia present. Rhythm irregular. Heart sounds: S1 normal and S2 normal. No murmur heard. No gallop. Pulmonary: Effort: No respiratory distress. Breath sounds: No wheezing or rales. Musculoskeletal: General: No tenderness. Right lower le+ Edema present. Left lower le+ Edema present. Skin: Comments: Few scattered erosions of right lower leg, some with serous drainage. No cellulitis or lymphangitis. Neurological: Mental Status: She is alert. Latest Ref Rng 10/14/2024 Glucose 74 - 99 mg/dL 94 BUN 7 - 21 mg/dL 26 (H) Creatinine 0.58 - 0.96 mg/dL 1.17 (H) Sodium 136 - 144 mmol/L 138 Potassium 3.7 - 5.1 mmol/L 4.6 Chloride 98 - 107 mmol/L 100 CO2 22 - 30 mmol/L 31 (H) Anion Gap 8 - 15 mmol/L 7 (L) Calcium 8.5 - 10.2 mg/dL 10.1 eGFR >=60 mL/min/1.73m? 49 (L) Legend: (H) High (L) Low ASSESSMENT/PLAN: 1. Atrial fibrillation, unspecified type (HCC) - ICD9: 427.31, ICD10: I48.91 (primary diagnosis) Stable. Anticoagulated. 2. Congestive heart failure, unspecified HF chronicity, unspecified heart failure type (HCC) - ICD9: 428.0, ICD10: I50.9 - Compensated - FUROSEMIDE 40 MG TABLET. Resume original BID dosing. This is from her industrial laborer. 3. Venous insufficiency - ICD9: 459.81, ICD10: I87.2 See above. - FUROSEMIDE 40 MG TABLET 4. Chronic kidney insufficiency, stage 3 (moderate) (HCC) - ICD9: 585.3, ICD10: N18.30 - eGFR: 49 Stable. Monitor with increased diuresis. - Counseled on avoiding NSAIDs, adequate hydration. - BASIC METABOLIC PANEL Navdeep Holcomb MD [facility] 10-17-2024 Telephone encount er Note Patient called triage line. States she had blood work on Thursday and had expected a call from the provider that night with the results. Requests call back about results and next steps. Please advise. [facility] Work Phone: 10-17-2024 Miscellaneous Notes Formattin g of this note might be different from the original. Patient called triage line. States she had blood work on Thursday and had expected a call from the provider that night with the results. Requests call back about results and next steps. Please advise. documented in this encounter [facility] 10-14-2024 History of Presen t illness Narrative Radiology Service Progress Note PATIENT NAME: Azalea Mott DATE OF SERVICE: October 14, 2024 TIME: 12:01 PM PATIENT IDENTITY VERIFICATION COMPLETED USING TWO [...] PATIENT PRESENTS WITH AN IMPLANTABLE OR ATTACHED MEDICAL CHEMIST: No RADIOLOGY DEPARTMENT: General X-ray: Exam(s) Completed: Pelvis X-Ray: Pelvis with Hip Right and Wt. Bearing PERIPHERAL IV DATA: Not applicable SIGNED BY: Delilah Graham October 14, 2024 12:01 PM documented in this encounter [facility] 10-14-2024 Note HNO ID: [id number] Author: ROXANNE [place] Tech Service: Radiology Author Type: Mobile Application Development Lead Type: Progress Notes Filed: 10/14/2024 12:02 Note Text: Radiology Service Progress Note PATIENT NAME: Azalea Mott DATE OF SERVICE: October 14, 2024 TIME: 12:01 PM PATIENT IDENTITY VERIFICATION COMPLETED USING TWO [...] PATIENT PRESENTS WITH AN IMPLANTABLE OR ATTACHED MEDICAL CHEMIST: No RADIOLOGY DEPARTMENT: General X-ray: Exam(s) Completed: Pelvis X-Ray: Pelvis with Hip Right and Wt. Bearing PERIPHERAL IV DATA: Not applicable SIGNED BY: Delilah Graham October 14, 2024 12:[address] [facility] 10-14-2024 Note HNO ID: [id number] Author: JAMAL LARIOS PA-C Service: ? Author Type: Physician Inclusion Manager Type: Progress Notes Filed: 10/14/2024 12:44 Note Text: Post-op Office Visit Azalea Mott 74 year old October 14, 2024 7:40 AM Surgery Date: 06/30/2024 History: Azalea Mott Is now 3.5 months out from R 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 Post-operative course has been without complication. Patient was admitted to TCU for aftercare. Patient had subsequent A-fib with RVR with heart rate in the 160-170 range on July 02. Currenlty on metoprolol and new Eliquis due to afib. Has cardiac follow up set up. Patient was previously having poor control of swelling. She had increased Lasix to 40mg BID. Educated on proper elevation and compression technique. Was seen by IM on 08/29/2024. Continues to have 2+ pitting edema to BLE Subjective: Patient having groin pain, buttocks pain, and radiating pain to the knee. Continues to have swelling in RLE with open area that is draining clear serous fluid. She is unable to find comfortable position. Also having difficulty with hip flexion with associated pain and weakness. Objective: Incision well healed Distally DP/PT palpable Distally S/S/SP/DP/T intact at baseline Distally DF/EHL/PF intact at baseline Negative lillie/calf tenderness Unable to fully extend leg. IR and ER elicit groin and buttocks pain. Having difficulty performing SLR. Open wound to mid tibia with clear serous drainage. No surrounding erythema. Xrays: Intact SYLVESTER without evidence of fracture, lytic lesions, or change of position in components Assessment and Plan: Azalea Mott Is here for a second post-op appointment, overall doing well -continued ice, rest, and use of non-narcotic analgesia as needed -wean off ambulatory aids -discussed home exercises and therapy -WBAT on operative extremity -CRP and ESR for infection rule out, if positive will need hip aspiration. If negative will send prednisone for pain. -may continue tylenol. Patient has oxycodone at home as well -open area of skin to lua was cleaned, placed xeroform, and dry dressing was placed. Advised to keep clean and covered. I spent a total of approximately 25 minutes on the date of the service which included preparing to see the patient, [id number] patient care, completing clinical documentation, obtaining and/or reviewing separately obtained history, performing a medically appropriate examination, counseling and educating the patient/family/caregiver, ordering medications, tests, or procedures, independently interpreting results (not separately reported), communicating results to the patient/family/caregiver, and care coordination (not separately reported). Jamal Larios PA-C Orthopaedic Surgery [facility] 10-04-2024 Telephone encount er Note Patient was notified Pattie Burton MA [facility] 10-04-2024 Miscellaneous Notes Formattin g of this note might be different from the original. Patient was notified Pattie Burton MA Medication list updated. Furosemide decreased 09/14/24, potassium discontinued, and aldactone added. [facility] Current Outpatient Medications Medication Sig spironolactone (ALDACTONE) 25 mg tablet Take 1 tablet by mouth once daily. furosemide (LASIX) 40 mg tablet Take 1 tablet by mouth once daily. atorvastatin (LIPITOR) 10 mg tablet Take 1 tablet by mouth daily at bedtime. For cholesterol. metoprolol tartrate, short acting, (LOPRESSOR) 100 mg tablet Take 1 tablet by mouth every 12 hours. polyethylene glycol 3350 17 gram/dose powder Take 17 g by mouth as needed for constipation. Dissolve dose in 4 - 8 ounces of liquid and take as directed. MULTIVITAMIN ORAL Take 1 tablet by mouth once daily. acetaminophen (TYLENOL) 500 mg tablet Take 2 tablets by mouth every 8 hours as needed for pain. apixaban (ELIQUIS) 5 mg tab(s) Take 1 tablet by mouth two times a day. CPAP CPAP Supplies, All Necessary equipment including [...] Take 2,000 Units by mouth once daily. No current facility-administered medications for this visit. Patient had increased edema and skin breakdown, oozing when in with her today. I recommend she go back to furosemide 40 mg BID x 7 days, then resume once daily. See me or the [facility] if not better, or if skin breakdown raises concern for infection. Navdeep Holcomb MD Patient dropped up dated prescription list which is place on nurses desk,-please give to dr. Holcomb documented in this encounter [facility] 10-04-2024 Telephone encount er Note Medication list updated. Furosemide decreased 09/14/24, potassium discontinued, and aldactone added. Cardiac issues are mainly managed by [facility]. Current Outpatient Medications Medication Sig spironolactone (ALDACTONE) 25 mg tablet Take 1 tablet by mouth once daily. furosemide (LASIX) 40 mg tablet Take 1 tablet by mouth once daily. atorvastatin (LIPITOR) 10 mg tablet Take 1 tablet by mouth daily at bedtime. For cholesterol. metoprolol tartrate, short acting, (LOPRESSOR) 100 mg tablet Take 1 tablet by mouth every 12 hours. polyethylene glycol 3350 17 gram/dose powder Take 17 g by mouth as needed for constipation. Dissolve dose in 4 - 8 ounces of liquid and take as directed. MULTIVITAMIN ORAL Take 1 tablet by mouth once daily. acetaminophen (TYLENOL) 500 mg tablet Take 2 tablets by mouth every 8 hours as needed for pain. apixaban (ELIQUIS) 5 mg tab(s) Take 1 tablet by mouth two times a day. CPAP CPAP Supplies, All Necessary equipment including [...] Take 2,000 Units by mouth once daily. No current facility-administered medications for this visit. Patient had increased edema and skin breakdown, oozing when in with her today. I recommend she go back to furosemide 40 mg BID x 7 days, then resume once daily. See me or the [facility] if not better, or if skin breakdown raises concern for infection. Navdeep Holcomb MD [facility] 10-04-2024 Telephone encount er Note Patient dropped up dated prescription list which is place on nurses desk,-please give to dr. Holcomb [facility] 09-30-2024 Progress note [facility] 09-30-2024 Progress note Note Date/Time September 30, 2024 3:31pm [facility] [address] [place] [address] OFFICE VISIT Date of Service: 09/30/24 MR#: [id number] Acct: [id number] Name: AZALEA MOTT Rep #: [id number] : 1950 Provider: Dr. Luly Turk MD Age/Sex: 74/F Location: [facility] [place] Status: Signed HPI HPI History of Present Illness Surgical H&P: No Details: # HISTORY OF PRESENT ILLNESS The patient presents for evaluation of paroxysmal atrial fibrillation with ongoing symptoms and concerns regarding heart rate control. The patient is a 74-year-old female with a history of paroxysmal atrial fibrillation, initially diagnosed during preoperative evaluation for right hip surgery in July 2024. Relevant comorbidities include hypertension, obstructive sleep apnea, obesity, and hyperlipidemia. She has been managed with diltiazem, metoprolol, and Eliquis. Notably, she was evaluated in the emergency department on August 25, 2024, for recurrent atrial fibrillation with slow ventricular response, prompting discontinuation of diltiazem and reduction of metoprolol to 50 mg twice daily. Due to subsequent episodes of elevated heart rates in atrial fibrillation, metoprolol was increased to 100 mg twice daily on August 15, 2024, byher primary care provider. Cardiology consultation on September 13, 2024, raised concern for tachy-bradycardia syndrome and difficulty achieving stable heart rate control, leading to the initiation of Holter monitoring. The patient reports that her atrial fibrillation episodes are intermittent, withsymptoms including dyspnea on exertion and a sensation of chest heaviness duringepisodes. She is generally unable to monitor her pulse at home but recalls heartrates exceeding 100 beats per minute during prior hospitalizations. She denies experiencing lightheadedness, dizziness, or presyncope during episodes of bradycardia. She has become more aware of the correlation between her symptoms and atrial fibrillation episodes since her diagnosis. Recent Holter monitor data (partial, as full analysis is pending) indicates recurrent episodes of atrial fibrillation on the 12th, 14th, 16th, and 19th of the month, with recorded heart rates ranging from 80 to 96 beats per minute during these episodes. No episodes of significant bradycardia have been capturedto date, but the monitoring period is ongoing, with completion anticipated tomorrow. Full analysis of the Holter data is pending. Problem list includes paroxysmal atrial fibrillation with periods of rapid ventricular response and sinus bradycardia, consistent with tachy-bradycardia syndrome. # REVIEW OF SYSTEMS CONSTITUTIONAL: Fatigue not mentioned, Fever not mentioned, Chills not mentioned, Weight gain not mentioned, Weight loss not mentioned RESPIRATORY: Shortness of breath positive (with episodes of AFib), Cough not mentioned, Wheezing not mentioned CARDIOVASCULAR: Chest pain (described as heaviness in chest) positive (with episodes of AFib), Palpitations positive (with episodes of AFib), Edema not mentioned, Pain while walking not mentioned NEUROLOGICAL: Dizziness negative, Extremity numbness not mentioned, Extremity weakness not mentioned, Headaches not mentioned, Seizures not mentioned, Tremorsnot mentioned MUSCULOSKELETAL: Joint pain not mentioned, Joint swelling not mentioned, Back pain not mentioned, Neck pain not mentioned HEMATOLOGIC: Easily bleeds not mentioned, Easily bruises not mentioned, Lymphedema not mentioned, Issues with blood clots not mentioned # PHYSICAL EXAMINATION GENERAL APPEARANCE: The patient is alert, oriented, and conversant, engaging appropriately in discussion. She is seated comfortably and demonstrates no visible distress during the encounter. EYES: No periorbital abnormalities or conjunctival changes were noted on inspection. EARS/NOSE/THROAT: Oral mucous membranes appear moist. No lesions or abnormalities of the lips or oropharynx were observed. HEAD/NECK: Head is normocephalic without evidence of trauma. Neck demonstrates full range of motion without rigidity. LUNGS: On inspection, there is no use of accessory muscles. Auscultation reveals clear breath sounds bilaterally without wheezes, rales, or rhonchi. CARDIAC: Cardiac auscultation reveals a regular rate and rhythm at the time of examination. No murmurs, rubs, or gallops are appreciated. No peripheral edema is observed. MUSCLES/EXTREMITIES: The patient is able to sit forward and move without difficulty. No swelling or deformity of the extremities is noted. SKIN: No rashes, lesions, or abnormalities are observed on exposed skin. NEUROLOGICAL: Speech is fluent and appropriate. The patient demonstrates intact attention and memory during conversation. No gross motor or coordination deficits are observed. PSYCHIATRIC: Mood and affect are appropriate to the situation. The patient is cooperative anddemonstrates good insight and judgment during the discussion. Twelve-lead EKG shows atypical atrial flutter with a ventricular rate of 80 bpm. There is an incomplete right bundle branch block with a QRS duration 110 ms. # ASSESSMENT AND PLAN Problem: Paroxysmal Atrial Fibrillation with Tachy-Prudencio Syndrome Hill Scores: CHADS-VASc = 4 (age >=65 = 1, hypertension = 1, female = 1) Assessment: The patient is a 74-year-old female with paroxysmal atrial fibrillation (AF), hypertension, SIOBHAN, obesity, and hyperlipidemia. She has a documented history of both rapid ventricular response (RVR) and episodes of sinus bradycardia/slow ventricular response in AF, consistent with tachy-prudencio syndrome. She is currently maintained on metoprolol and Eliquis (apixaban), with diltiazem recently discontinued due to bradycardia. The patient continues to experience symptoms (dyspnea, chest heaviness) during AF episodes, but denies syncope or presyncope. There is ongoing concern for significant bradyarrhythmia, particularly given her history of slow ventricular response and the need for rate-controlling medications that may exacerbate bradycardia. The clinical scenario is complicated by the need to balance adequate rate control for symptomatic AF with the risk of medication-induced bradycardia. Given her CHADS-VASc score of 4, she remains at high risk for thromboembolic events and requires ongoing anticoagulation. The possibility of pacemaker implantation is being considered to allow for optimal rate control without the risk of symptomatic bradycardia, pending full Holter analysis. Plan: Diagnostics/Labs ? Await and review the complete Holter monitor report to assess the frequency and severity of both tachyarrhythmia and bradyarrhythmia episodes, as this will guide the need for device therapy (pacemaker). Therapeutics/Medications ? Continue metoprolol tartrate 100 mg twice daily for rate control, as currentlytolerated and per prior cardiology recommendations. Adjustments may be necessarypending Holter results and symptom correlation. ? Continue apixaban (Eliquis) for stroke prevention, given KRISTEN?DS?-VASc = 4 and absence of contraindications. Refill provided today. ? Hold diltiazem, as previously discontinued due to bradycardia. ? If Holter confirms significant symptomatic bradycardia or pauses, proceed withpacemaker implantation to enable safe and effective rate control with beta-jason therapy. ? If pacemaker is placed, maintain rate control with metoprolol and titrate as needed to minimize AF symptoms and RVR. ? If if post pacemaker patient continues have rapid atrial fibrillation patient can then be referred for possible A-fib ablation. Education / Lifestyle ? Educated patient regarding the nature of tachy-prudencio syndrome, the rationale for pacemaker therapy, and the limitations of pharmacologic management alone. ? Discussed risks and benefits of pacemaker implantation, including surgical risks (bleeding, infection, pneumothorax, cardiac perforation) and the need for ongoing anticoagulation regardless of rhythm or device status. ? Reviewed importance of medication adherence and home monitoring of symptoms. ? Provided information on dgem-dii-ryggnow pulse oximeters and blood pressure cuffs for home pulse monitoring, as adjuncts to symptom tracking. Follow-up / Monitoring ? Review Holter monitor results and finalize management plan. ? Monitor for symptoms of bradycardia (lightheadedness, dizziness, syncope) or tachyarrhythmia (palpitations, dyspnea, chest discomfort). Return Precautions ? Instructed patient to seek immediate medical attention for syncope, near-syncope, new or worsening chest pain, severe shortness of breath, or signs of bleeding (e.g., melena, hematuria, hematemesis). ? Reinforced the importance of reporting any new or worsening symptoms promptly. --- Problem: Hypertension Hill Scores: N/A Assessment: Hypertension is a significant comorbidity contributing to the patient?s overall cardiovascular risk and KRISTEN?DS?-VASc score. Blood pressure control is essential for secondary stroke prevention in the context of AF. Current antihypertensive regimen includes beta-jason therapy (metoprolol), which also serves for rate control in AF. No acute hypertensive complications reported. Plan: Diagnostics/Labs ? Monitor blood pressure at home and in clinic; document trends. Therapeutics/Medications ? Continue current antihypertensive regimen, including metoprolol. ? Reassess need for additional antihypertensive agents after review of blood pressure readings and in context of AF management. Education / Lifestyle ? Reinforce dietary sodium restriction, weight management, and adherence to antihypertensive therapy. ? Encourage regular physical activity as tolerated. Follow-up / Monitoring ? Review blood pressure and medication adherence at next visit. ? Adjust therapy as needed based on home and office blood pressure readings. Return Precautions ? Advise patient to report symptoms of hypotension (dizziness, lightheadedness, falls) or hypertensive urgency (severe headache, vision changes, chest pain). --- Problem: Obstructive Sleep Apnea Hill Scores: N/A Assessment: Obstructive sleep apnea (SIOBHAN) is a known risk factor for atrial fibrillation recurrence and poor rate/rhythm control. SIOBHAN may also contribute to hypertensionand overall cardiovascular risk. The patient?s SIOBHAN management status is not specified in the current note. Plan: Diagnostics/Labs ? Confirm current ISOBHAN management (e.g., CPAP use, compliance, recent sleep studyif indicated). Therapeutics/Medications ? Reinforce adherence to SIOBHAN therapy (CPAP or other prescribed modalities). Education / Lifestyle ? Educate patient on the importance of SIOBHAN treatment in reducing AF recurrence and improving cardiovascular outcomes. Follow-up / Monitoring ? Review SIOBHAN management and compliance at next visit. Return Precautions ? Instruct patient to report excessive daytime sleepiness, witnessed apneas, or worsening snoring. --- Problem: Hyperlipidemia Hill Scores: ASCVD 10-year risk not calculated (insufficient data) Assessment: Hyperlipidemia is a chronic comorbidity contributing to overall ASCVD risk. No acute issues identified in this visit. Lipid-lowering therapy status not specified in the current note. Plan: Diagnostics/Labs ? Order fasting lipid panel if not done within the past year. Therapeutics/Medications ? Continue statin or other lipid-lowering therapy as previously prescribed; adjust based on most recent lipid panel and ASCVD risk assessment. Education / Lifestyle ? Reinforce dietary modification, weight management, and medication adherence. Follow-up / Monitoring ? Review lipid panel and therapy at next visit. Return Precautions ? Advise patient to report any new muscle aches, weakness, or dark urine (possible statin side effects). --- Problem: Anticoagulation Management (Apixaban) Hill Scores: CHADS-VASc = 4 Assessment: The patient remains at high risk for stroke due to AF and comorbidities. She is currently maintained on apixaban (Eliquis) with no reported bleeding complications. Ongoing anticoagulation is indicated regardless of rhythm or device status, per current guidelines. Plan: Therapeutics/Medications ? Continue apixaban as prescribed; refill provided today. ? Reinforce strict adherence to anticoagulation regimen. Education / Lifestyle ? Educate patient on signs and symptoms of bleeding and the importance of not discontinuing anticoagulation without medical advice. Follow-up / Monitoring ? Review for bleeding or thromboembolic events at each visit. ? Adjust anticoagulation only if clinically indicated (e.g., bleeding, renal dysfunction). Return Precautions ? Instruct patient to seek immediate care for signs of bleeding (e.g., hematuria, melena, hematemesis, unexplained bruising) or symptoms suggestive of stroke/TIA (e.g., sudden weakness, speech changes, vision loss). 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: No Accompanied by: Significant Other Is patient in pain?: No Allergies hydrocodone Adverse Reaction (Unknown, Verified 09/30/24 14:53) Weird dreams Medications ?Medication ?Instructions ?Recorded ?Confirmed ?Type atorvastatin 10 mg tablet 10 mg PO QHS cholesterol 09/30/24 History multivitamin (Daily Multi-Vitamin 1 tab PO DAILY Suppl ement 07/06/24 09/30/24 History tablet) acetaminophen 500 mg tablet 1,000 mg PO Q8 PRN pain 09/30/24 History ferrous sulfate 325 mg (65 mg 650 mg PO QDAY 08/10/24 09/30/24 History iron) tablet ascorbic acid (vitamin C) 500 mg 1,000 mg PO QDAY 10/3109/30/24 History tablet cholecalciferol (vitamin D3) 125 250 mcg PO QDAY 09/1309/30/24 History mcg (5,000 unit) tablet furosemide 40 mg tablet (Lasix) 40 mg PO QDAY #180 tab s 09/13/24 09/30/24 Rx sennosides 8.6 mg-docusate sodium 1 tab-cap PO ONCE MI N 09/13/24 09/30/24 History 50 mg capsule (Senna Plus) spironolactone 25 mg tablet 25 mg PO DAILY #90 tabs 09/30/24 Rx apixaban 5 mg tablet (Eliquis) 5 mg PO BID 30 days #60 tabs 09/30/24 09/30/24 Rx metoprolol tartrate 100 mg tablet 100 mg PO BID #180 t abs 09/30/24 09/30/24 Rx Have you fallen in the past year?: [...] total right hip arthroplasty S/P tubal ligation Status post right hip replacement Family History Mother Hypertension Asthma Diabetes COPD (chronic obstructive pulmonary disease) Crohn's disease Father , at 82. Non-Hodgkin lymphoma CHF (congestive heart failure) CVA (cerebral vascular accident) Sister CHF (congestive heart failure) Sister Diabetes Sister Hypertension Sister Fibromyalgia Sister Kidney disease Social History household members: spouse current occupational status: retired Smoking Status: Never smoker alcohol intake: never substance use type: does not use ROS Const Const: Negative for fatigue, weakness, headache(s), daytime sleepiness or difficulty sleeping ENT ENT: Negative for headache(s), dizziness or Nosebleed/epistaxis Cardio Chest Pain: No Palpitations: No Edema: Bilateral (BLE ) Resp Respiratory: Negative for SOB with activity, SOB at rest, SOB orthopnea\SOB lying down or Cough GI GI: Negative nausea, vomiting or heartburn Neuro Neuro: Negative for dizziness, lightheadedness, near syncope, headache(s) or weakness Endo Endo: Negative for fatigue Supplemental Info Supplemental Information Echocardiogram 06/23/2024: CONCLUSIONS: [...] exam for comparison. Stress Test 06/23/2024: CONCLUSIONS: 1. SPECT Perfusion Study: Normal. 2. There is no scintigraphic evidence for inducible ischemia. 3. No evidence of scarred myocardium. 4. Left ventricle is normal in size. The left ventricle systolic function is hyperdynamic. 5. This is a low risk scan. Stress ECG Conclusion: Conclusion: Normal Labs: HDL Cholesterol 27 mg/dL (40-) L Cholesterol 93 mg/dL (<=200) Triglycerides 82 mg/dL (-199) Diagnostics: Electrocardiogram Chest X-Ray Abdomen/Pelvis CT Venous Doppler Study Pulmonary: No Data to Display Past Visits: Cardiology Visit 09/30/24 Assessment and Plan Assessment and Plan (1) Paroxysmal atrial fibrillation: Status: Chronic (2) Bradycardia: Status: Acute Orders: Orders 12 Lead EKG performed by [facility] Today E78.5 - Hyperlipidemia, unspecified, I10 - Essential (primary) hypertension, I48.91 - Unspecified atrial fibrillation, I51.89 - Other ill-defined heart diseases Patient Instructions: Please see above for a comprehensive, guideline-based assessment and plan for each active problem. # PATIENT INSTRUCTIONS Patient Instructions Dear Azalea, Here are your instructions to help you stay healthy at home. Please read them carefully and let us know if you have any questions. We are here to support you! 1. Medications - Metoprolol: Take 100 mg two times a day, as you have been doing. This medicinehelps control your heart rate and blood pressure. Take it at the same times every day, with or without food. Do not skip doses. If you feel dizzy, lightheaded, or very tired, let us know right away. - Eliquis (apixaban): Keep taking this medicine as prescribed. It helps prevent blood clots and lowers your risk of stroke. Take it at the same time every day. Do not stop taking Eliquis unless your doctor tells you to. If you notice any unusual bleeding, bruising, or dark stools, call us right away. - Do not take diltiazem. This medicine was stopped because it made your heart rate too slow. 2. Heart Monitor - You are wearing a heart monitor to check your heart rhythm. Please finish wearing it as instructed and send it back tomorrow. This will help us understandhow your heart is working and decide if you need any changes in your treatment. 3. Possible Pacemaker - We are waiting for the heart monitor results. If it shows that your heart rateis sometimes too slow, you may need a pacemaker. A pacemaker is a small device that helps keep your heart from beating too slowly. We will talk more about thisafter we get your test results. 4. Home Monitoring - You can use a home blood pressure cuff or a finger monitor (pulse oximeter) tocheck your pulse and oxygen levels. These are helpful but not perfect. Write down your numbers and how you feel, especially if you have symptoms like chest heaviness, shortness of breath, or feel dizzy. 5. Lifestyle Tips - Take your medicines every day, even if you feel fine. - Try to eat less salt (sodium) to help control your blood pressure. - If you are overweight, losing even a small amount of weight can help your heart. - If you use a CPAP machine for sleep apnea, keep using it every night. - Try to be active every day, like walking or gentle exercise, but listen to your body and rest if you feel tired. - Eat a heart-healthy diet with fruits, vegetables, whole grains, and lean proteins. - If you are taking medicine for cholesterol, keep taking it as prescribed. 6. Follow-Up and Tests - We will call you or see you in the clinic in 1?2 weeks to talk about your heart monitor results and next steps. - You may need blood tests to check your kidneys, blood count, and cholesterol. We will let you know if you need to come in for these. - Keep track of your blood pressure at home if you can, and bring your numbers to your next visit. 7. When to Get Help Call 911 or go to the emergency room right away if you: - Faint or feel like you are about to faint - Have new or worsening chest pain - Have severe trouble breathing - Have heavy bleeding, vomit blood, or notice black or bloody stools - Have sudden weakness, trouble speaking, or changes in vision Call our office if you: - Feel dizzy or lightheaded often - Notice new or worse shortness of breath - Have swelling in your legs or feet - Notice easy bruising or bleeding - Have any questions or worries about your medicines or symptoms Remember, you are not alone. We are here to help you manage your heart and keep you feeling your best. Please bring any questions to your next visit, and let usknow if anything changes before then. Take care, Your [facility] Team Coding Level of Care Code Off vis,new,level 5 Diagnoses Paroxysmal atrial fibrillation I48.0 Bradycardia R00.1 Coding Level of Care Code Off vis,new,level 5 Diagnoses Paroxysmal atrial fibrillation I48.0 Bradycardia R00.1 Clinical Quality Measures Falls Risk Screening/Assistive Devices Have you fallen in the past year?: No 09/30/24 1531 <Electronically signed by Rashad jones MD> Date _ Rashad Turk MD Cosigner Signature: Date (if applicable) CC: Dr. Navdeep Holcomb MD ~ [facility] Work Phone: [phone] NoteHNO ID: [id number] Author: NAVDEEP HOLCOMB MD Service: ? Author Type: Physician Type: Progress Notes Filed: 09/07/2024 13:58 Note Text: This note was created using KnowRer[employer]. Subjective Azalea Mott is a 74 year old female. She was somewhat better as far as palpitations. Dyspnea was stable. She had been inadvertently taking lisinopril and I had added metolazone when she came in last week with uncontrolled atrial fibrillation and low blood pressure. I instructed her to go back to 100 mg BID of metoprolol. Her home BP readings are increased to 116/69 yesterday and 132/68 today. Heart rate dropped from 138 to 89/min. Review of Systems Constitutional: Negative for fatigue and unexpected weight change. Respiratory: Negative for chest tightness and shortness of breath. Cardiovascular: Negative for chest pain and palpitations. ACTIVE PROBLEM LIST Hearing Loss in Left Ear Primary Osteoarthritis of Right Hip Hyperlipidemia Ldl Goal <100 Hypertension, Essential Siobhan On Cpap Obesity, Class I, Bmi 30-34.9 Chronic Kidney Insufficiency, Stage 3 (Moderate) (Hcc) Impaired Fasting Glucose Venous Insufficiency Heart Valve Disease Mild Pulmonary Hypertension (Hcc) S/P Total Right Hip Arthroplasty Atrial Fibrillation (Hcc) Other Specified Postprocedural States Congestive Heart Failure (Hcc) Social History Tobacco Use Smoking status: Never Smokeless tobacco: Never Vaping Use Vaping status: Never Used Substance Use Topics Alcohol use: No Drug use: No Current Outpatient Medications Medication Sig atorvastatin (LIPITOR) 10 mg tablet Take 1 tablet by mouth daily at bedtime. For cholesterol. furosemide (LASIX) 40 mg tablet Take 1 tablet by mouth two times a day. metOLazone (ZAROXOLYN) 5 mg tablet Take 1 tablet by mouth every morning for 14 days. potassium chloride 20 mEq TbER Take 1 tablet by mouth once daily. metoprolol tartrate, short acting, (LOPRESSOR) 100 mg tablet Take 1 tablet by mouth every 12 hours. polyethylene glycol 3350 17 gram/dose powder Take 17 g by mouth as needed for constipation. Dissolve dose in 4 - 8 ounces of liquid and take as directed. MULTIVITAMIN ORAL Take 1 tablet by mouth once daily. ascorbic acid, vitamin C, (VITAMIN C) 500 mg tablet Take 1 tablet by mouth two times a day with meals for 19 doses. acetaminophen (TYLENOL) 500 mg tablet Take 2 tablets by mouth every 8 hours as needed for pain. apixaban (ELIQUIS) 5 mg tab(s) Take 1 tablet by mouth two times a day. CPAP CPAP Supplies, All Necessary equipment including [...] Take 2,000 Units by mouth once daily. No current facility-administered medications for this visit. Objective BP 110/66 (BP Site: Right Arm, BP Cuff Size: Large Adult) Resp 20 Wt 96.7 kg (213 lb 3 oz) SpO2 99% BMI 34.41 kg/m? Physical Exam Constitutional: General: She is not in acute distress. Cardiovascular: Rate and Rhythm: Normal rate. Rhythm regularly irregular. Heart sounds: S1 normal and S2 normal. Pulmonary: Breath sounds: Examination of the right-lower field reveals rhonchi. Examination of the left-lower field reveals rhonchi. Rhonchi present. No decreased breath sounds, wheezing or rales. Musculoskeletal: Right lower le+ Pitting Edema present. Left lower le+ Pitting Edema present. Neurological: Mental Status: She is alert. Assessment and Plan 1. Atrial fibrillation with RVR (HCC) - ICD9: 427.31, ICD10: I48.91 (primary diagnosis) - Controlled. 2. Congestive heart failure, unspecified HF chronicity, unspecified heart failure type (HCC) - ICD9: 428.0, ICD10: I50.9 - HFpEF 50+ - Continue current medications - Metolazone discontinued. - Disregard labs for next week. 3. Hypertension, essential - ICD9: 401.9, ICD10: I10 - Controlled - Continue current medications [facility] will see [facility]. Navdeep Holcomb [facility]07-02-2025 History of Present illness Narrative* Navdeep Holcomb MD - 09/07/2024 1:39 PM EDT This note was created using NoteWriter. Subjective Azalea Mott is a 74 year old female. She was somewhat better as far as palpitations. Dyspnea was stable. She had been inadvertently taking lisinopril and I had added metolazone when she came in last week with uncontrolled atrial fibrillation and low blood pressure. I instructed her to go back to 100 mg BID of metoprolol. Her home BP readings are increased to 116/69 yesterday and 132/68 today.Heart rate dropped from 138 to 89/min. Review of Systems Constitutional: Negative for fatigue and unexpected weight change. Respiratory: Negative for chest tightness and shortness of breath. Cardiovascular: Negative for chest pain and palpitations. ACTIVE PROBLEM LIST Hearing Loss in Left Ear Primary Osteoarthritis of Right Hip Hyperlipidemia Ldl Goal <100 Hypertension, Essential Siobhan On Cpap Obesity, Class I, Bmi 30-34.9 Chronic Kidney Insufficiency, Stage 3 (Moderate) (Hcc) Impaired Fasting Glucose Venous Insufficiency Heart Valve Disease Mild Pulmonary Hypertension (Hcc) S/P Total Right Hip Arthroplasty Atrial Fibrillation (Hcc) Other Specified Postprocedural States Congestive Heart Failure (Hcc) Social History Tobacco Use Smoking status: Never Smokeless tobacco: Never Vaping Use Vaping status: Never Used Substance Use Topics Alcohol use: No Drug use: No Current Outpatient Medications Medication Sig atorvastatin (LIPITOR) 10 mg tablet Take 1 tablet by mouth daily at bedtime. For cholesterol. furosemide (LASIX) 40 mg tablet Take 1 tablet by mouth two times a day. metOLazone (ZAROXOLYN) 5 mg tablet Take 1 tablet by mouth every morning for 14 days. potassium chloride 20 mEq TbER Take 1 tablet by mouth once daily. metoprolol tartrate, short acting, (LOPRESSOR) 100 mg tablet Take 1 tablet by mouth every 12 hours. polyethylene glycol 3350 17 gram/dose powder Take 17 g by mouth as needed for constipation. Dissolve dose in 4 - 8 ounces of liquid and take as directed. MULTIVITAMIN ORAL Take 1 tablet by mouth once daily. ascorbic acid, vitamin C, (VITAMIN C) 500 mg tablet Take 1 tablet by mouth two times a day with meals for 19 doses. acetaminophen (TYLENOL) 500 mg tablet Take 2 tablets by mouth every 8 hours as needed for pain. apixaban (ELIQUIS) 5 mg tab(s) Take 1 tablet by mouth two times a day. CPAP CPAP Supplies, All Necessary equipment including tubing and full mask ICD G47.33 HAIR, SKIN AND NAILS, BIOTIN, ORAL Take 2 tablets by mouth once daily. CPAP 30 day download for And please send chin strap Auto PAP @ 5-20 cm of water with humidification. Mask (per patient preference) optional chin strap (if indicated) , filters, tubing, humidifier andlifetime supplies. ferrous sulfate 325 mg (65 mg iron) tablet Take 650 mg by mouth daily with breakfast. cholecalciferol (VITAMIN D3) 50 mcg (2,000 unit) tablet Take 2,000 Units by mouth once daily. No current facility-administered medications for this visit. Objective BP 110/66 (BP Site: Right Arm, BP Cuff Size: Large Adult) Resp 20 Wt 96.7 kg (213 lb 3 oz) SpO2 99% BMI 34.41 kg/m Physical Exam Constitutional: General: She is not in acute distress. Cardiovascular: Rate and Rhythm: Normal rate. Rhythm regularly irregular. Heart sounds: S1 normal and S2 normal. Pulmonary: Breath sounds: Examination of the right-lower field reveals rhonchi. Examination of the left-lower field reveals rhonchi. Rhonchi present. No decreased breath sounds, wheezing or rales. Musculoskeletal: Right lower le+ Pitting Edema present. Left lower le+ Pitting Edema present. Neurological: Mental Status: She is alert. Assessment and Plan 1. Atrial fibrillation with RVR (HCC) - ICD9: 427.31, ICD10: I48.91 (primary diagnosis) - Controlled. 2. Congestive heart failure, unspecified HF chronicity, unspecified heart failure type (HCC) - ICD9: 428.0, ICD10: I50.9 - HFpEF 50+ - Continue current medications - Metolazone discontinued. - Disregard labs for next week. 3. Hypertension, essential - ICD9: 401.9, ICD10: I10 - Controlled - Continue current medications [facility] will see [facility]. Navdeep Holcomb MD [facility] Instructions* Patient Instructions* Navdeep Holcomb MD - 09/02/2024 12:19 PM EDT DO NOT TAKE LISINOPRIL ANYMORE. TAKE ONE EXTRA WHOLE TABLET OF METOPROLOL 100 MG WHEN YOU GET HOME. THIS EVENING START TAKING METOPROLOL 100 MG TWICE A DAY. IF YOUR HEART RATE IS NOT CLOSER TO 100 BY THIS EVENING, GO TO THE ER. GO TO THE ER FOR WORSENING SYMPTOMS. STOP METOLAZONE FOR NOW. documented in this encounterProtestant Hospital06-27-2025 NoteHNO ID: [id number] Author: NAVDEEP HOLCOMB MD Service: ? Author Type: Physician Type: Progress Notes Filed: 09/02/2024 12:44 Note Text: This note was created using KnowReriter. Subjective Patient presents with: Tachycardia Azalea Mott is a 74 year old female who noted palpitations and tachycardia yesterday night. She started monitoring her blood pressure and heart rate. Blood pressure was stable. Heart rate varied but was generally in the 120 to 130 range. She was just in the ER 08/25/24 for similar issues and due to congestive heart failure, her diltiazem was discontinued and metoprolol cut to 50 mg BID. She had more edema, so I added metolazone 4 days ago and her edema was improving. For unclear reasons, she got the impression that she was to resume lisinopril. She was [facility] see [facility] for follow up. Review of Systems Constitutional: Negative for fatigue and unexpected weight change. Respiratory: Positive for shortness of breath (stable.). Negative for chest tightness and wheezing. Cardiovascular: Negative for chest pain. Neurological: Negative for dizziness, light-headedness and headaches. ACTIVE PROBLEM LIST Hearing Loss in Left Ear Primary Osteoarthritis of Right Hip Hyperlipidemia Ldl Goal <100 Hypertension, Essential Siobhan On Cpap Obesity, Class I, Bmi 30-34.9 Chronic Kidney Insufficiency, Stage 3 (Moderate) (Hcc) Impaired Fasting Glucose Venous Insufficiency Heart Valve Disease Mild Pulmonary Hypertension (Hcc) S/P Total Right Hip Arthroplasty Atrial Fibrillation (Hcc) Other Specified Postprocedural States Congestive Heart Failure (Hcc) Current Outpatient Medications Medication Sig atorvastatin (LIPITOR) 10 mg tablet Take 1 tablet by mouth daily at bedtime. For cholesterol. furosemide (LASIX) 40 mg tablet Take 1 tablet by mouth two times a day. metOLazone (ZAROXOLYN) 5 mg tablet Take 1 tablet by mouth every morning for 14 days. potassium chloride 20 mEq TbER Take 1 tablet by mouth once daily. metoprolol tartrate, short acting, (LOPRESSOR) 100 mg tablet Take 1 tablet by mouth every 12 hours. polyethylene glycol 3350 17 gram/dose powder Take 17 g by mouth as needed for constipation. Dissolve dose in 4 - 8 ounces of liquid and take as directed. MULTIVITAMIN ORAL Take 1 tablet by mouth once daily. ascorbic acid, vitamin C, (VITAMIN C) 500 mg tablet Take 1 tablet by mouth two times a day with meals for 19 doses. acetaminophen (TYLENOL) 500 mg tablet Take 2 tablets by mouth every 8 hours as needed for pain. apixaban (ELIQUIS) 5 mg tab(s) Take 1 tablet by mouth two times a day. CPAP CPAP Supplies, All Necessary equipment including [...] Take 2,000 Units by mouth once daily. No current facility-administered medications for this visit. Objective BP 106/56 Pulse (!) 122 Ht 167.6 cm (5' 6) Wt 96.8 kg (213 lb 6.5 oz) SpO2 96% BMI 34.44 kg/m? Physical Exam Constitutional: General: She is not in acute distress. Appearance: She is not ill-appearing or diaphoretic. Cardiovascular: Rate and Rhythm: Tachycardia present. Rhythm regularly irregular. Heart sounds: S1 normal and S2 normal. No murmur heard. No gallop. Pulmonary: Effort: No respiratory distress. Breath sounds: No wheezing or rales. Musculoskeletal: Right lower le+ Pitting Edema present. Left lower le+ Pitting Edema present. Neurological: General: No focal deficit present. Mental Status: She is alert. Assessment and Plan 1. Atrial fibrillation with RVR (HCC) - ICD9: 427.31, ICD10: I48.91 (primary diagnosis) Extra dose of metoprolol tartrate. See printed instructions or information. 2. Hypertension, essential - ICD9: 401.9, ICD10: I10 - Controlled - Do not take LISINOPRIL. - Hold METOLAZONE for now. 3. Congestive heart failure, unspecified HF chronicity, unspecified heart failure type (HCC) - ICD9: 428.0, ICD10: I50.9 Improving. - Continue current medications FUROSEMIDE. Shared medical decision making was done. [place] situation is to go to the ER. She preferred to try and manage this at home. Close follow up recommended. She will go to ER if heart rate does not improve ior symptoms worsen. Navdeep Holcomb [facility]06-27-2025 History of Present illness Narrative* Navdeep Holcomb MD - 09/02/2024 12:07 PM EDT This note was created using NoteWriter. Subjective Patient presents with: Tachycardia Azalea Mott is a 74 year old female who noted palpitations and tachycardia yesterday night. Shestarted monitoring her blood pressure and heart rate. Blood pressure was stable. Heart rate varied but was generally in the 120 to 130 range. She was just in the ER 08/25/24 for similar issues and due to congestive heart failure, her diltiazem was discontinued and metoprolol cut to 50 mg BID. She had more edema, so I added metolazone 4 daysago and her edema was improving. For unclear reasons, she got the impression that she was to resume lisinopril. [facility] for follow up. Review of Systems Constitutional: Negative for fatigue and unexpected weight change. Respiratory: Positive for shortness of breath (stable.). Negative for chest tightness and wheezing. Cardiovascular: Negative for chest pain. Neurological: Negative for dizziness, light-headedness and headaches. ACTIVE PROBLEM LIST Hearing Loss in Left Ear Primary Osteoarthritis of Right Hip Hyperlipidemia Ldl Goal <100 Hypertension, Essential Siobhan On Cpap Obesity, Class I, Bmi 30-34.9 Chronic Kidney Insufficiency, Stage 3 (Moderate) (Hcc) Impaired Fasting Glucose Venous Insufficiency Heart Valve Disease Mild Pulmonary Hypertension (Hcc) S/P Total Right Hip Arthroplasty Atrial Fibrillation (Hcc) Other Specified Postprocedural States Congestive Heart Failure (Hcc) Current Outpatient Medications Medication Sig atorvastatin (LIPITOR) 10 mg tablet Take 1 tablet by mouth daily at bedtime. For cholesterol. furosemide (LASIX) 40 mg tablet Take 1 tablet by mouth two times a day. metOLazone (ZAROXOLYN) 5 mg tablet Take 1 tablet by mouth every morning for 14 days. potassium chloride 20 mEq TbER Take 1 tablet by mouth once daily. metoprolol tartrate, short acting, (LOPRESSOR) 100 mg tablet Take 1 tablet by mouth every 12 hours. polyethylene glycol 3350 17 gram/dose powder Take 17 g by mouth as needed for constipation. Dissolve dose in 4 - 8 ounces of liquid and take as directed. MULTIVITAMIN ORAL Take 1 tablet by mouth once daily. ascorbic acid, vitamin C, (VITAMIN C) 500 mg tablet Take 1 tablet by mouth two times a day with meals for 19 doses. acetaminophen (TYLENOL) 500 mg tablet Take 2 tablets by mouth every 8 hours as needed for pain. apixaban (ELIQUIS) 5 mg tab(s) Take 1 tablet by mouth two times a day. CPAP CPAP Supplies, All Necessary equipment including tubing and full mask ICD G47.33 HAIR, SKIN AND NAILS, BIOTIN, ORAL Take 2 tablets by mouth once daily. CPAP 30 day download for And please send chin strap Auto PAP @ 5-20 cm of water with humidification. Mask (per patient preference) optional chin strap (if indicated) , filters, tubing, humidifier andlifetime supplies. ferrous sulfate 325 mg (65 mg iron) tablet Take 650 mg by mouth daily with breakfast. cholecalciferol (VITAMIN D3) 50 mcg (2,000 unit) tablet Take 2,000 Units by mouth once daily. No current facility-administered medications for this visit. Objective BP 106/56 Pulse (!) 122 Ht 167.6 cm (5' 6) Wt 96.8 kg (213 lb 6.5 oz) SpO2 96% BMI 34.44kg/m Physical Exam Constitutional: General: She is not in acute distress. Appearance: She is not ill-appearing or diaphoretic. Cardiovascular: Rate and Rhythm: Tachycardia present. Rhythm regularly irregular. Heart sounds: S1 normal and S2 normal. No murmur heard. No gallop. Pulmonary: Effort: No respiratory distress. Breath sounds: No wheezing or rales. Musculoskeletal: Right lower le+ Pitting Edema present. Left lower le+ Pitting Edema present. Neurological: General: No focal deficit present. Mental Status: She is alert. Assessment and Plan 1. Atrial fibrillation with RVR (HCC) - ICD9: 427.31, ICD10: I48.91 (primary diagnosis) Extra dose of metoprolol tartrate. See printed instructions or information. 2. Hypertension, essential - ICD9: 401.9, ICD10: I10 - Controlled - Do not take LISINOPRIL. - Hold METOLAZONE for now. 3. Congestive heart failure, unspecified HF chronicity, unspecified heart failure type (HCC) - ICD9: 428.0, ICD10: I50.9 Improving. - Continue current medications FUROSEMIDE. Shared medical decision making was done. [place] situation is to go to the ER. She preferred to try and manage this at home. Close follow up recommended. She will go to ER if heart rate does not improve ior symptoms worsen. Navdeep Holcomb MD documented in this encounterProtest[facility]06-27-2025 Telephone encounter Note * Telephone Encounter - Karlee Stinson RN - 09/02/2024 8:32 AM EDT Patient calls for elevated HR. Nurse triage completed. Protocol recommends see provider within 24 hours. Patient agreeable. Appt scheduled. Care advice reviewed with verbalized understanding. Reason for Disposition History of heart disease (i.e., heart attack, bypass surgery, angina, angioplasty, CHF) (Exception:Brief heartbeat symptoms that went away and now feels well.) Answer Assessment - Initial Assessment Questions 1. DESCRIPTION: Patient is not able to feel an irregularity. Reports that since yesterday HR has been running 129. BP last evening 107/75 this morning 124/92. Reports ankle swelling continues. Shortness of Breath with exertion per her usual. 2. ONSET: Yesterday 3. DURATION: Since yesterday 4. PATTERN: Constant with no changes. 5. TAP: Patient is not able to do as she can't feel it. 6. HEART RATE: 129 7. RECURRENT SYMPTOM: Yes, medications needed adjusted. 8. CAUSE: History of A-fib. Recent medication changes and doesn't think they are working. 9. CARDIAC HISTORY: No history of heart attack, angina, bypass surgery, angioplasty, arrhythmia. 10. OTHER SYMPTOMS:Shortness of Breath with exertion but not any worse than her usual. No dizziness, chest pain, or sweating. Protocols used: Heart Rate and Heartbeat [id number]06-[facility] Miscellaneous Notes* Telephone Encounter - Karlee Stinson RN - 09/02/2024 8:32 AM EDT Patient calls for elevated HR. Nurse triage completed. Protocol recommends see provider within 24 hours. Patient agreeable. Appt scheduled. Care advice reviewed with verbalized understanding. Reason for Disposition History of heart disease (i.e., heart attack, bypass surgery, angina, angioplasty, CHF) (Exception:Brief heartbeat symptoms that went away and now feels well.) Answer Assessment - Initial Assessment Questions 1. DESCRIPTION: Patient is not able to feel an irregularity. Reports that since yesterday HR has been running 129. BP last evening 107/75 this morning 124/92. Reports ankle swelling continues. Shortness of Breath with exertion per her usual. 2. ONSET: Yesterday 3. DURATION: Since yesterday 4. PATTERN: Constant with no changes. 5. TAP: Patient is not able to do as she can't feel it. 6. HEART RATE: 129 7. RECURRENT SYMPTOM: Yes, medications needed adjusted. 8. CAUSE: History of A-fib. Recent medication changes and doesn't think they are working. 9. CARDIAC HISTORY: No history of heart attack, angina, bypass surgery, angioplasty, arrhythmia. 10. OTHER SYMPTOMS:Shortness of Breath with exertion but not any worse than her usual. No dizziness, chest pain, or sweating. 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 Post-operative course has been without complication. Patient was admitted to TCU for aftercare. Patient had subsequent A-fib with RVR with heart rate inthe 160-170 range on July 02. Currenlty on metoprolol and new Eliquis due to afib. Has cardiac follow up set up. Patient was previously having poor control of swelling. She had increased Lasix to 40mg BID. Educated on proper elevation and compression technique. Was seen by IM on 08/29/2024. Continues to have 2+ pitting edema to BLE Subjective: Patient reports no pain. Overall is doing well. - ambulatory aid - opioid pain medication Objective: Ambulates without assistance Incision well-approximated, no drainage, normal lyndsey-incisional erythema Arcs of motion at hip are comfortable and fluid Distally DP/PT palpable Distally S/S/SP/DP/T intact at baseline Distally DF/EHL/PF intact at baseline Negative lillie/calf tenderness Xrays: No new today Assessment and Plan: Azalea Mott Is here for a second post-op appointment, overall doing well -continued ice, rest, and use of non-narcotic analgesia as needed -wean off ambulatory aids -discussed home exercises and therapy -WBAT on operative extremity -will see back at 6 month appointment for clinical exam and post-op xrays--can see earlier if needed -discussed red flag symptoms of acutely increasing pain, new erythema, new swelling, drainage, shortness of breath Jamal Larios PA-C Orthopaedic Surgery documented in this encounterProtestant Hospital06-25-2025 NoteHNO ID: [id number] Author: JAMAL LARIOS PA-C Service: ? 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 Post-operative course has been without complication. Patient was admitted to TCU for aftercare. Patient had subsequent A-fib with RVR with heart rate in the 160-170 range on July 02. Currenlty on metoprolol and new Eliquis due to afib. Has cardiac follow up set up. Patient was previously having poor control of swelling. She had increased Lasix to 40mg BID. Educated on proper elevation and compression technique. Was seen by IM on 08/29/2024. Continues to have 2+ pitting edema to BLE Subjective: Patient reports no pain. Overall is doing well. - ambulatory aid - opioid pain medication Objective: Ambulates without assistance Incision well-approximated, no drainage, normal lyndsey-incisional erythema Arcs of motion at hip are comfortable and fluid Distally DP/PT palpable Distally S/S/SP/DP/T intact at baseline Distally DF/EHL/PF intact at baseline Negative lillie/calf tenderness Xrays: No new today Assessment and Plan: Azalea Mott Is here for a second post-op appointment, overall doing well -continued ice, rest, and use of non-narcotic analgesia as needed -wean off ambulatory aids -discussed home exercises and therapy -WBAT on operative extremity -will see back at 6 month appointment for clinical exam and post-op xrays--can see earlier if needed -discussed red flag symptoms of acutely increasing pain, new erythema, new swelling, drainage, shortness of breath Jamal Larios PA-C [facility] NoteHNO ID: [id number] Author: NAVDEEP HOLCOMB MD Service: ? Author Type: Physician Type: Progress Notes Filed: 08/29/2024 15:57 Note Text: This note was created using NoteWriter. Subjective Azalea Mott is a 74 year old female here with Uli. She was seen in the ED on 08/25/24 for dyspnea on exertion and palpitations. Work up revealed findings of congestive heart failure on chest X-ray and elevated BNP. In consultation with her industrial laborer, diltiazem was discontinued and metoprolol was reduced to 1/2 tablet BID. Even though furosemide was doubled by her industrial laborer 2 weeks earlier, edema was persistent and urination did not increase as expected. She had a cardiology follow up in 2 weeks (09/13/24). Review of Systems Constitutional: Negative for fatigue and unexpected weight change. Respiratory: Negative for cough, shortness of breath and wheezing. Cardiovascular: Positive for leg swelling. Negative for chest pain and palpitations. Gastrointestinal: Negative. Genitourinary: Negative. Neurological: Negative for dizziness, syncope and headaches. ACTIVE PROBLEM LIST Hearing Loss in Left Ear Primary Osteoarthritis of Right Hip Hyperlipidemia Ldl Goal <100 Hypertension, Essential Siobhan On Cpap Obesity, Class I, Bmi 30-34.9 Chronic Kidney Insufficiency, Stage 3 (Moderate) (Hcc) Impaired Fasting Glucose Venous Insufficiency Heart Valve Disease Mild Pulmonary Hypertension (Hcc) S/P Total Right Hip Arthroplasty Atrial Fibrillation (Hcc) Other Specified Postprocedural States Social History Tobacco Use Smoking status: Never Smokeless tobacco: Never Vaping Use Vaping status: Never Used Substance Use Topics Alcohol use: No Drug use: No Current Outpatient Medications Medication Sig potassium chloride 20 mEq TbER Take 1 tablet by mouth once daily. furosemide (LASIX) 40 mg tablet Take 1 tablet by mouth once daily for 14 days. (Patient taking differently: Take 40 mg by mouth two times a day.) polyethylene glycol 3350 17 gram/dose powder Take 17 g by mouth as needed for constipation. Dissolve dose in 4 - 8 ounces of liquid and take as directed. metoprolol succinate ER (TOPROL XL) 100 mg Take 1 tablet by mouth two times a day. (Patient taking differently: Take 50 mg by mouth two times a day.) MULTIVITAMIN ORAL Take 1 tablet by mouth once daily. ascorbic acid, vitamin C, (VITAMIN C) 500 mg tablet Take 1 tablet by mouth two times a day with meals for 19 doses. acetaminophen (TYLENOL) 500 mg tablet Take 2 tablets by mouth every 8 hours as needed for pain. (Patient taking differently: Take 1,000 mg by mouth two times a day with meals.) apixaban (ELIQUIS) 5 mg tab(s) Take 1 tablet by mouth two times a day. atorvastatin (LIPITOR) 10 mg tablet Take 1 tablet by mouth daily at bedtime. For cholesterol. (Patient taking differently: Take 1 tablet by mouth daily at bedtime. For cholesterol.) CPAP CPAP Supplies, All Necessary equipment including [...] Take 2,000 Units by mouth once daily. metoprolol tartrate, short acting, (LOPRESSOR) 100 mg tablet Take 1 tablet by mouth every 12 hours. dilTIAZem CD (CARDIZEM CD, CARTIA XT) 300 mg 24 hr capsule Take 1 capsule by mouth once daily. Patient should start on July 06, 2024. (Patient not taking: Reported on 08/29/2024) No current facility-administered medications for this visit. Objective BP 116/58 Pulse (!) 56 Temp 36.4 ?C (97.6 ?F) (Temporal) Resp 16 Wt 100.1 kg (220 lb 10.9 oz) SpO2 100% BMI 35.62 kg/m? Physical Exam Constitutional: General: She is not in acute distress. HENT: Head: Normocephalic. Cardiovascular: Rate and Rhythm: Regular rhythm. Bradycardia present. Heart sounds: No murmur heard. No gallop. Pulmonary: Breath sounds: Normal breath sounds. Musculoskeletal: Right lower le+ Pitting Edema present. Left lower le+ Pitting Edema present. Neurological: Mental Status: She is alert. Assessment and Plan : 1. Congestive heart failure, unspecified HF chronicity, unspecified heart failure type (HCC) - ICD9: 428.0, ICD10: I50.9 (primary diagnosis) - HFpEF 50+ - FUROSEMIDE 40 MG TABLET - METOLAZONE 5 MG TABLET. Take one(1) tablet daily x 14 days. - BASIC METABOLIC PANEL - Weigh daily. Call for consistent weight gain 3-5 pounds. 2. Venous insufficiency - ICD9: 459.81, ICD10: I87.2 See above. - FUROSEMIDE 40 MG TABLET - METOLAZONE 5 MG TABLET - BASIC METABOLIC PANEL Navdeep Holcomb [facility]06-23-2025 History of Present illness Narrative* Navdeep Holcomb MD - 08/29/2024 2:59 PM EDT This note was created using NoteWriter. Subjective Azalea Mott is a 74 year old female here with Uli. She was seen in the ED on 08/25/24 for dyspnea on exertion and palpitations. Work up revealed findings of congestive heart failure on chest X-ray and elevated BNP. In consultation with her industrial laborer, diltiazem was discontinued and metoprolol was reduced to 1/2 tablet BID. Even though furosemide was doubled by her industrial laborer 2 weeks earlier, edema was persistent and urination did not increase as expected. She had a cardiology follow up in 2 weeks (09/13/24). Review of Systems Constitutional: Negative for fatigue and unexpected weight change. Respiratory: Negative for cough, shortness of breath and wheezing. Cardiovascular: Positive for leg swelling. Negative for chest pain and palpitations. Gastrointestinal: Negative. Genitourinary: Negative. Neurological: Negative for dizziness, syncope and headaches. ACTIVE PROBLEM LIST Hearing Loss in Left Ear Primary Osteoarthritis of Right Hip Hyperlipidemia Ldl Goal <100 Hypertension, Essential Siobhan On Cpap Obesity, Class I, Bmi 30-34.9 Chronic Kidney Insufficiency, Stage 3 (Moderate) (Hcc) Impaired Fasting Glucose Venous Insufficiency Heart Valve Disease Mild Pulmonary Hypertension (Hcc) S/P Total Right Hip Arthroplasty Atrial Fibrillation (Hcc) Other Specified Postprocedural States Social History Tobacco Use Smoking status: Never Smokeless tobacco: Never Vaping Use Vaping status: Never Used Substance Use Topics Alcohol use: No Drug use: No Current Outpatient Medications Medication Sig potassium chloride 20 mEq TbER Take 1 tablet by mouth once daily. furosemide (LASIX) 40 mg tablet Take 1 tablet by mouth once daily for 14 days. (Patient taking differently: Take 40 mg by mouth two times a day.) polyethylene glycol 3350 17 gram/dose powder Take 17 g by mouth as needed for constipation. Dissolve dose in 4 - 8 ounces of liquid and take as directed. metoprolol succinate ER (TOPROL XL) 100 mg Take 1 tablet by mouth two times a day. (Patient taking differently: Take 50 mg by mouth two times a day.) MULTIVITAMIN ORAL Take 1 tablet by mouth once daily. ascorbic acid, vitamin C, (VITAMIN C) 500 mg tablet Take 1 tablet by mouth two times a day with meals for 19 doses. acetaminophen (TYLENOL) 500 mg tablet Take 2 tablets by mouth every 8 hours as needed for pain. (Patient taking differently: Take 1,000 mg by mouth two times a day with meals.) apixaban (ELIQUIS) 5 mg tab(s) Take 1 tablet by mouth two times a day. atorvastatin (LIPITOR) 10 mg tablet Take 1 tablet by mouth daily at bedtime. For cholesterol. (Patient taking differently: Take 1 tablet by mouth daily at bedtime. For cholesterol.) CPAP CPAP Supplies, All Necessary equipment including tubing and full mask ICD G47.33 HAIR, SKIN AND NAILS, BIOTIN, ORAL Take 2 tablets by mouth once daily. CPAP 30 day download for And please send chin strap Auto PAP @ 5-20 cm of water with humidification. Mask (per patient preference) optional chin strap (if indicated) , filters, tubing, humidifier andlifetime supplies. ferrous sulfate 325 mg (65 mg iron) tablet Take 650 mg by mouth daily with breakfast. cholecalciferol (VITAMIN D3) 50 mcg (2,000 unit) tablet Take 2,000 Units by mouth once daily. metoprolol tartrate, short acting, (LOPRESSOR) 100 mg tablet Take 1 tablet by mouth every 12 hours. dilTIAZem CD (CARDIZEM CD, CARTIA XT) 300 mg 24 hr capsule Take 1 capsule by mouth once daily. Patient should start on July 06, 2024. (Patient not taking: Reported on 08/29/2024) No current facility-administered medications for this visit. Objective BP 116/58 Pulse (!) 56 Temp 36.4 C (97.6 F) (Temporal) Resp 16 Wt 100.1 kg (220 lb 10.9 oz) SpO2 100% BMI 35.62 kg/m Physical Exam Constitutional: General: She is not in acute distress. HENT: Head: Normocephalic. Cardiovascular: Rate and Rhythm: Regular rhythm. Bradycardia present. Heart sounds: No murmur heard. No gallop. Pulmonary: Breath sounds: Normal breath sounds. Musculoskeletal: Right lower le+ Pitting Edema present. Left lower le+ Pitting Edema present. Neurological: Mental Status: She is alert. Assessment and Plan : 1. Congestive heart failure, unspecified HF chronicity, unspecified heart failure type (HCC) - ICD9: 428.0, ICD10: I50.9 (primary diagnosis) - HFpEF 50+ - FUROSEMIDE 40 MG TABLET - METOLAZONE 5 MG TABLET. Take one(1) tablet daily x 14 days. - BASIC METABOLIC PANEL - Weigh daily. Call for consistent weight gain 3-5 pounds. 2. Venous insufficiency - ICD9: 459.81, ICD10: I87.2 See above. - FUROSEMIDE 40 MG TABLET - METOLAZONE 5 MG TABLET - BASIC METABOLIC PANEL Navdeep Holcomb MD documented in this encounterProtestant Hospital06-20-2025 Telephone encounter Note * Telephone Encounter - Keya Chisholm RN - 08/26/2024 10:15 AM EDT Pt called in and reports she was in [facility] ER yesterday. She states she was having trouble catching her breath and heart problems. She said she found out right before her hip surgery that she had Afib, and her HR was running in the 40s. The ER told her to stop taking the Diltiazem and to only take 1/2of the dose of the Metoprolol she is on. They had her schedule an appointment with Dr Mena, which she has on 09/13/24. She said the ER did chest x-rays and blood work and they told her she has fluid on her lungs, but couldn't find anything else so they sent her home. Pt also states that since her hip surgery she has been having swelling in her feet and they gave her a dose of IV Lasix. She said the last time she saw Dr Mena he increased her Lasix to 40 mg BID, and he told her she would be peeing all the time, but she isn't. Pt is scheduled for an ER f/u with Dr Holcomb on 08/29/24. Please get [facility] report and give to Dr Naidu for Thursday appt. Keya Chisholm RN [facility]06-20-2025 Miscellaneous Notes* Telephone Encounter - Keya Chisholm RN - 08/26/2024 10:15 AM EDT Pt called in and reports she was in [facility] ER yesterday. She states she was having trouble catching her breath and heart problems. She said she found out right before her hip surgery that she had Afib, and her HR was running in the 40s. The ER told her to stop taking the Diltiazem and to only take 1/2of the dose of the Metoprolol she is on. They had her schedule an appointment with Dr Mena, which she has on 09/13/24. She said the ER did chest x-rays and blood work and they told her she has fluid on her lungs, but couldn't find anything else so they sent her home. Pt also states that since her hip surgery she has been having swelling in her feet and they gave her a dose of IV Lasix. She said the last time she saw Dr Mena he increased her Lasix to 40 mg BID, and he told her she would be peeing all the time, but she isn't. Pt is scheduled for an ER f/u with Dr Holcomb on 08/29/24. Please get [facility] report and give to Dr Naidu for Thursday appt. Keya Chisholm RN documented in this encounterProtestant Hospital06-19-2025 Radiology Diagnostic study note [facility] [address] [place] [address] Chest PA and Lateral MR#: [id number] Acct: [id number] Name: AZALEA MOTT Rep #: [id number] : 1950 F 74 From: Hill Snyder MD PCP: Dr. Navdeep Holcomb MD Status: R EG ER Study:Chest PA and Lateral Date of Exam: 08/25/24 Exam# [id number] Ordering Dr: Yobani Chester PROCEDURE: CHEST PA AND LATERAL 08/25/2024 REASON FOR EXAM: DYSPNEA TECHNIQUE: CHEST PA AND LATERAL COMPARISON: 09/23/2020. FINDINGS: The heart is enlarged. Vascular indistinctness of the lung bases suggestive of edema. No acute osseous abnormalities. RAD/Chest PA and Lateral IMPRESSION: Probable mild edema in the setting of cardiomegaly. Reading Location: [id number] CC: Dr. Navdeep Holcomb MD; DEMETRICE King Head Of Music: Signed [facility]06-11-2025 History of Present illness Narrative* Jamal Larios PA-C - 08/17/2024 11:30 AM EDT Post-op Office Visit Azalea Mott 74 [...] operative side. Reports increasing Lasix to 40mg BID.Has not been elevating very well with only [...] SHALONDA wrapping for assistance in swelling Jamal Larios PA-C Orthopaedic Surgery documented in this encounterProtestant Hospital06-11-2025 NoteHNO ID: [id number] Author: JAMAL LARIOS PA-C Service: ? Author Type: Physician Inclusion Manager Type: Progress Notes Filed: 08/17/2024 12:23 Note [...] SHALONDA wrapping for assistance in swelling Jamal Larios PA-C [facility] Progress [facility] [address] [place] [address] OFFICE VISIT Date of Service: 08/11/24 MR#: [id number] Acct: [id number] Name: AZALEA MOTT Rep #: [id number] : 1950 Provider: Dr. Francois Mena MD Age/Sex: 74/F Location: [facility] Status: Signed HPI HPI History of Present Illness Details: This lady has been referred to us for her recent diagnosis of atrial fibrillation. She was diagnosed with atrial fibrillation on routine workup prior to her right hip replacement surgery. She has hadan echocardiogram done. It showed normal left ventricular systolic function. No major valvular abnor malities were noted. A Lexiscan stress Myoview was [...] has been taking furosemide once daily however theedema has not improved. Intake Vital Signs 07/13/24 14:04 08/11/24 11:06 Height 5 ft 6 in 5 ft 6 in Weight: 228 lb BMI 36.8 BP 119/67 Blood Pressure Location Lt brachial Position Sitting Respiration 18 Pulse 57 L Pulse Source NIBP Intake Visit Reasons: AFIB W/RVR S/P Business Analytics Director Required: No Accompanied by: Is patient in [...] increasing furosemide, then will consider stopping her diltiazemas it may be causing/contributing to her lower extremity edema. (3) Hypertension: Status: Chronic Plan: Furosemide, metoprolol, diltiazem. DC hydrochlorothiazide. (4) Status post right hip replacement: Status: Resolved Plan: Recent hip surgery. Orders: Orders 12 Lead EKG performed by [facility] Today Dr. Rosalio Mena [...] Cardiac Ejection fraction %: 63 08/11/24 1147 MD> Date _ Rosalio Mena MD Cosigner Signature: Date (if applicable) CC: Dr. Navdeep Holcomb MD ~ [facility]06-03-2025 Telephone encounter Note* Telephone Encounter - Pradip Hillman PT - 08/09/2024 4:[address] Zhang Tristan is reporting increased SOB today with activity. Her HR is running in the low 50's and does not elevate with activity . The edema in her feet remains unchanged She does not see the industrial laborer until This Please advise Thanks Pradip PT [facility] Work Phone: 1(178) 702-395106-03-2025 Miscellaneous Notes* Telephone Encounter - Pradip Hillman, PT - 08/09/2024 4:[address] Zhang Tristan is reporting increased SOB today with activity. Her HR is running in the low 50's and does not elevate with activity . The edema in her feet remains unchanged She does not see the industrial laborer until This Please advise Thanks Pradip PT documented in this encounterProtestant Hospital06-03-2025 Miscellaneous Notes* PT DISCHARGE - Pradip Hillman PT - 08/09/2024 3:51 PM EDT SITUATION: spouse present during today's visit. patient reports the following since the last homecare visit: medications/allergies--Dr jorden finney x's 14 days , no fall. patient [...] summary for intervention/education details. documented in this encounterProtestant Hospital06-03-2025 Patient's home Note* HH PT DISCHARGE - Pardip Hillman PT - 08/09/2024 3:51 PM EDT SITUATION: spouse present during today's visit. patient reports the following since the last homecare visit: medications/allergies-- continued lasmalina x's 14 days , no fall. [...] directed See intervention summary for intervention/education details. [facility] Work Phone: 1(750) 615-891105-29-2025 Miscellaneous Notes* PT ROUTINE/REASSESSMENT/RECERT/CASE MGMT - Leslie Davison PTA - 08/04/2024 12:10 PM EDT SITUATION: spouse present during today's visit. patient [...] summary for intervention/education details. documented in this encounterProtestant Hospital05-29-2025 Patient's home Note* PT ROUTINE/REASSESSMENT/RECERT/CASE Leslie Martinez PTA - 08/04/2024 12:10 PM EDT SITUATION: spouse present during today's visit. patient [...] DC See intervention summary for intervention/education details. [facility] Work Phone: 1(357) 754-845105-28-2025 Telephone encounter Note* Telephone Encounter - Chayo Alanis RN - 08/03/2024 9:23 AM EDT Patient notified of results and provider's instructions. Patient verbalizes understanding. Chayo Alanis RN [facility]05-28-2025 Miscellaneous Notes* Telephone Encounter - Chayo Alanis RN - 08/03/2024 9:23 AM EDT Patient notified of results and provider's instructions. Patient verbalizes understanding. Chayo Alanis RN * Telephone Encounter - Karlee Stinson RN - 08/03/2024 9:15 AM EDT Call placed to patient with no answer. Message left for patient to return call to triage nurse. Karlee Stinson RN * Telephone Encounter - Navdeep Holcomb MD - 08/03/2024 12:06 AM EDT The following approved medication requests have been transmitted electronically. Requested Prescriptions Signed Prescriptions Disp Refills furosemide (LASIX) 40 mg tablet 14 tablet 0 Sig: Take 1 tablet by mouth once daily for 14 days. Authorizing Provider: NAVDEEP HOLCOMB Discontinue hydrochlorothiazide. Non fasting BMP next week. Navdeep Holcomb MD * Telephone Encounter - Karlee Stinson RN - 08/02/2024 2:27 PM EDT Patient calls with update since appointment on [...] is as much as possible. Pharmacy is [facility]. Karlee Stinson RN documented in this encounterProtestant Hospital05-28-2025 Telephone encounter Note * Telephone Encounter - Karlee Stinson RN - 08/03/2024 9:15 AM EDT Call placed to patient with no answer. Message left for patient to return call to triage nurse. Karlee Stinson RN [facility]05-28-2025 Telephone encounter Note* Telephone Encounter - Navdeep Holcomb MD - 08/03/2024 12:06 AM EDT The following approved medication requests have been transmitted electronically. Requested Prescriptions Signed Prescriptions Disp Refills furosemide (LASIX) 40 mg tablet 14 tablet 0 Sig: Take 1 tablet by mouth once daily for 14 days. Authorizing Provider: NAVDEEP HOLCOMB Discontinue hydrochlorothiazide. Non fasting BMP next week. Navdeep Holcomb MD [facility]05-27-2025 Telephone encounter Note* Telephone Encounter - Leslie Davison PTA - 08/02/2024 2:32 PM EDT I saw patient for PT visit today. She completed her 7 days of lasix today but continues to have 2+pitting edema in Jaswinder feet/ankles. Vitals today: BP: 110/60 HR 66 PO2 99 Resp 18 No SOB reported or noted. Patient is planning on calling your office to discuss. Thanks [facility] Work Phone: [phone]) 582-757905-27-2025 Miscellaneous Notes* Telephone Encounter - Leslie Davison PTA - 08/02/2024 2:32 PM EDT I saw patient for PT visit today. She completed her 7 days of lasix today but continues to have 2+pitting edema in Jaswinder feet/ankles. Vitals today: BP: 110/60 HR 66 PO2 99 Resp 18 No SOB reported or noted. Patient is planning on calling your office to discuss. Thanks documented in this encounterProtestant Hospital05-27-2025 Telephone encounter Note * Telephone Encounter - Karlee Stinson RN - 08/02/2024 2:27 PM EDT Patient calls with update since appointment on [...] is as much as possible. Pharmacy is [facility]. Karlee Stinson RN [facility]05-27-2025 Miscellaneous Notes* PT ROUTINE/REASSESSMENT/RECERT/CASE MGMT Leslie France PTA - 08/02/2024 1:35 PM EDT SITUATION: spouse present during today's visit. patient reports the following since the last homecare visit: medications/allergies--no changes, no fall. patient reports she has been walking around house w/o cane and used cane when she went to jainism over the weekend. . States she is [...] Dr to report, sent message to Navdeep Holcomb MD to report of edema and todays [...] summary for intervention/education details. documented in this encounterProtestant Hospital05-27-2025 Patient's home Note* PT ROUTINE/REASSESSMENT/RECERT/CASE MGMT - Leslie Davison PTA - 08/02/2024 1:35 PM EDT SITUATION: spouse present during today's visit. patient reports the following since the last homecare visit: medications/allergies--no changes, no fall. patient reports she has been walking around house w/o cane and used cane when she went to jainism over the weekend. . States she is [...] Dr to report, sent message to Navdeep Holcomb MD to report of edema and todays [...] NOMNC See intervention summary for intervention/education details. [facility] Work Phone: 1(954) 513-145505-21-2025 NoteHNO ID: [id number] Author: NAVDEEP HOLCOMB MD Service: ? Author Type: Physician Type: Progress Notes Filed: 07/27/2024 13:25 Note Text: This note was created using Naowter. Subjective Patient presents with: Transition Of Care Transitional Care Management Progress Note The patients TCM visit was performed within the 7 days of discharge. Patient's Date of discharge: 07/21/2024 Date of initial coordinator contact after discharge: 07/25/2024 Discharge diagnosis: s/p right total hip replacement, atrial fibrillation, SIOBHAN on CPAP, CKD, hypertension, anemia. Medication review completed Yes Recording using Thryve software for draft documentation of the visit was discussed with the patient/authorized wine sales representative; all questions welcomed and answered. Patient/authorized wine sales representative agreed to proceed In follow-up of hospitalization, [...] and postoperative anemia. Azalea was discharged to [facility], where she stayed until discharge home 07/21/24. She reports that her recovery from the right total hip arthroplasty is progressing well, with no significant concerns. She notes that the surgical incision is healing properly, and she has a follow-up appointment with Dr. Bergeron on the . She denies fever, cephalalgia, [...] (65 mg iron) ta (more content not included)...[facility]05-21-2025 NoteHNO ID: [id number] Author: NEETA FOSTER LPN Service: ? Author Type: LICENSED NURSE Type: Progress Notes Filed: 07/27/2024 13:25 Note Text: Patient Outreach 07/25/2024 Field Reimbursement Manager Management Wanda Costa RNair technician Transition Of Care Reason for Visit Progress Notes Wanda Costa RN (Registered Nurse) Internal Medicine Transition Care Management (TCM) Initial Outreach PCP Update / Actionable Items [facility] Referral Source of Stratification: [facility] Hospital Admission Status: Discharged Readmission Risk Score: N/A Patient's zip code: [address] Is zip code within program service area: No Patient Source: [id number] ([facility]) Discharge Outreach Summary: Spoke with patient. [...] changes in current status. Patient discharged from [facility] [place] Discharge date: 07-22-24 Admitted for: Total right hip replacement Readmission Risk: N/A Value-Based Contract: ACO Contact: Contact made with patient: Yes Hi, my name is Wanda Costa RN and I am calling from the [facility] on behalf of your Primary Care Provider, Navdeep Holcomb MD. I understand you were recently in [...] you? Yes Name of Home Care Agency: [facility] Phone number, if available: [phone] Start of Home Care services date: 07-23-24 [...] I will send your request to a hair assistant who will contact and assist you with [...] Report, Procedural Documentation Pharmacy Benefits Open Encounter MOTT AZALEA - 2024 [employer] Retail Super ID ([employer]) Covered: Retail, Mail Order Unknown: Specialty, Long-Term Care BIN: [id number] : 1950 Group ID: [id number] PCN: [id number] Legal sex: F Group name: [facility]LON [id number] [id number] Address: [address] [place] [address] (more content not included)...[facility]05-19-2025 Miscellaneous Notes* CARE COORDINATION - Indira Mendez, JACOB - 07/25/2024 3:20 PM EDT Medication review completed. No ineffective drug therapy, [...] Pantoprazole. Indira Mendez RN documented in this encounterProtestant Hospital05-19-2025 Patient's home Note* CARE COORDINATION - Indira Mendez RN - 07/25/2024 3:20 PM EDT Medication review completed. No ineffective drug therapy, [...] Magnesium Hydroxide, or Pantoprazole. Indira Mendez RN [facility] Work Phone: 1(226) [phone] NoteHNO ID: [id number] Author: WANDA COSTA RN Service: ? Author Type: Registered Nurse Type: Progress Notes Filed: 07/25/2024 12:16 Note Text: Transition Care Management (TCM) Initial Outreach PCP Update / Actionable Items HRTIC TCM Home Visit Referral Source of Stratification: [facility] Hospital Admission Status: Discharged Readmission Risk Score: N/A Patient's zip code: [address] Is zip code within program service area: No Patient Source: [id number] ([facility]) Discharge Outreach Summary: Spoke with patient. [...] changes in current status. Patient discharged from [facility] Discharge date: 07-22-24 Admitted for: Total right hip replacement Readmission Risk: N/A Value-Based Contract: ACO Contact: Contact made with patient: Yes Hi, my name is Wanda Costa RN and I am calling from the [facility] on behalf of your Primary Care Provider, Navdeep Holcomb MD. I understand you were recently in [...] you? Yes Name of Home Care Agency: [facility] Phone number, if available: [phone] Start of Home Care services date: 07-23-24 [...] I will send your request to a hair assistant who will contact and assist you with [...] Wanda Costa RN July 25, 2024 12:07 [facility]05-19-2025 History of Present illness Narrative* Wanda Costa RN - 07/25/2024 12:05 PM EDT Transition Care Management (TCM) Initial Outreach PCP Update / Actionable Items HRTIC TCM Home Visit Referral Source of Stratification: [facility] Hospital Admission Status: Discharged Readmission Risk Score: N/A Patient's zip code: [address] Is zip code within program service area: No Patient Source: [facility] (OON) Discharge Outreach Summary: Spoke with patient. [...] changes in current status. Patient discharged from [facility] Discharge date: 07-22-24 Admitted for: Total right hip replacement Readmission Risk: N/A Value-Based Contract: ACO Contact: Contact made with patient: Yes Hi, my name is Wanda Costa RN and I am calling from the [facility] on behalf of your PrimaryCare Provider, Navdeep Holcomb MD. I understand you were recently in [...] you? Yes Name of Home Care Agency: [facility] Phone number, if available: [phone] Start of Home Care services date: 07-23-24 [...] provider to ensure you have safely transitioned home.If you are agreeable, I will send your request to a hair assistant who will contact and assist you with that appointment. This will give you an opportunity to ask any questions or address any concerns youmay have with your PCP. Inform the patient that if they have any questions or concerns prior to that appointment, to call their PCP's office right away. Appointment Action: No action required; patient already has appointment scheduled. Education details: Patient and family educated on issues/questions related to reason for admission,transition of care topics, and follow-up needed upon discharge. Wanda Costa RN July 25, 2024 12:07 PM documented in this encounterProtestant Hospital05-19-2025 Miscellaneous Notes* OT EVALUATION/REASSESSMENT/RECERT - Odette Henry, OT - 07/25/2024 6:59 AM EDT SITUATION: Pt seated in recliner upon arrival in no apparent distress. spouse present during today's visit. patient reports the following since the last homecare visit: medications/allergies--no changes, no fall. BACKGROUND: Diagnoses or reason for home care: TCU admission to [facility] on 07/06/24 - 07/22/24. Disciplines ordered: PT and OT Primary Diagnoses (reason for Home Care): Aftercare following joint replacement surgery S/P Right SYLVESTER on 06/30/[address] Bergeron Any one of the comorbidities from the [...] have advance directives. ASSESSMENT: Patient evaluated by [facility] occupational therapy. Reviewed and explained [...] summary for intervention/education details. documented in this encounterProtestant Hospital05-19-2025 Patient's home Note* HH OT EVALUATION/REASSESSMENT/RECERT - Odette Henry OT - 07/25/2024 6:59 AM EDT SITUATION: Pt seated in recliner upon arrival in no apparent distress. spouse present during today's visit. patient reports the following since the last homecare visit: medications/allergies--no changes, no fall. BACKGROUND: Diagnoses or reason for home care: TCU admission to [facility] on 07/06/24 - 07/22/24. Disciplines ordered: PT and OT Primary Diagnoses (reason for Home Care): Aftercare following joint replacement surgery S/P Right SYLVESTER on 06/30/[address] Bergeron Any one of the comorbidities from the [...] have advance directives. ASSESSMENT: Patient evaluated by [facility] occupational therapy. Reviewed and explained [...] only. See intervention summary for intervention/education details. [facility] Work Phone: 1(457) 167-154205-19-2025 NotePatient Outreach (AMBCMG) PANTERAAZALEA Alexis ([id number]) 1950 F Date Time Provider Department 07/25/24 WANDA COSTA During your visit today, we recorded the following information about you: Wanda Costa RN 07/25/2024 12:16 PM Signed Transition Care Management (TCM) Initial Outreach PCP Update / Actionable Items [facility] Referral Source of Stratification: [facility] Hospital Admission Status: Discharged Readmission Risk Score: N/A Patient's zip code: [address] Is zip code within program service area: No Patient Source: [facility] (OON) Discharge Outreach Summary: Spoke with patient. [...] changes in current status. Patient discharged from [facility] Discharge date: 07-22-24 Admitted for: Total right hip replacement Readmission Risk: N/A Value-Based Contract: ACO Contact: Contact made with patient: Yes Hi, my name is Wanda Costa RN and I am calling from the [facility] on behalf of your Primary Care Provider, Navdeep Holcomb MD. I understand you were recently in [...] you? Yes Name of Home Care Agency: [facility] Phone number, if available: [phone] Start of Home Care services date: 07-23-24 [...] I will send your request to a hair assistant who will contact and assist you with [...] for Visit: Transition Of Care [4074] Cmt: [facility] discharge 07-22-24- Initial outreach Prescriptions as of 07/25/2024 - hydroCHLOROthiazide 25 mg tablet Take 25 mg by mouth once daily. - oxyCODONE IR (ROXICODONE) 5 mg immediate release tablet (more content not included)...[facility]05-17-2025 Miscellaneous Notes* HH PT SOC/RUPESH/FOLLOW UP/OTHER - Sanjeev Galdamez, PT - 07/23/2024 8:06 AM EDT SITUATION: spouse present during today's visit. patient reports she is feeling overall well today and states she is prepared for P.T. visit. BACKGROUND: Diagnoses (reason for Home Care): Aftercare following joint replacement surgery S/P Right SYLVESTER on 06/30/[address] Bergeron Advance Directives: Patient does have advance directives. [...] rotation, and adduction ASSESSMENT: Patient evaluated by [facility] physical therapy. Reviewed and explained homecare services. Plan of care, goals, and visit frequency developed, reviewed, and agreed upon with patient and/or caregiver. Patient reports she was being treated for potential skin breakdown on her coccyx and was provided abarrier cream. P.T. inspected this date and noted [...] summary for intervention/education details. documented in this encounterProtestant Hospital05-17-2025 Patient's home Note* PT SOC/RUPESH/FOLLOW UP/OTHER - Sanjeev Galdamez PT - 07/23/2024 8:06 AM EDT SITUATION: spouse present during today's visit. patient reports she is feeling overall well today and states she is prepared for P.T. visit. BACKGROUND: Diagnoses (reason for Home Care): Aftercare following joint replacement surgery S/P Right SYLVESTER on 06/30/[address] Bergeron Advance Directives: Patient does have advance directives. [...] rotation, and adduction ASSESSMENT: Patient evaluated by [facility] physical therapy. Reviewed and explained homecare services. Plan of care, goals, and visit frequency developed, reviewed, and agreed upon with patient and/or caregiver. Patient reports she was being treated for potential skin breakdown on her coccyx and was provided abarrier cream. P.T. inspected this date and noted [...] OT See intervention summary for intervention/education details. [facility] Work Phone: 1(696) 920-781805-15-2025 Discharge summary Author New Bear [facility] Note Date/Time July 21, 2024 8:37p m [facility] Medical Records Department [address] [place] [address] Discharge Summary 07/21/242029 MR#: [id number] Acct: [id number] Name: AZALEA MOTT Rep #:[id number] : 1950 74 From: New Bear MD PCP: Dr. Navdeep Holcomb MD Status:A DM IN Location: [place] [id number]- Providers Date of Admission: 07/06/24 Primary Care Physician: Dr. Navdeep Holcomb MD Reason For Visit: R TOTAL HIP [...] right total hip arthroplasty 06/30/[address] Bergeron ([facility]), postoperative course complicated by atrial fibrillation [...] right total hip arthroplasty 06/30/[address] Bergeron ([facility]), postoperative course complicated by atrial fibrillation with RVR, admitted to TCU with debility, here for rehabilitation, strengthening, prior to discharge home with . Discharge home with 07/22/2024, [facility] PT/OT. Physical Exam Const alert General [...] % (Auto) 64.1, Lymph % (Auto) 22.9, [place] % (Auto) 8.1, Eos % (Auto) 3.6, [...] Additional Instructions: Discharge home with 07/22/2024, [facility] PT/OT. Please Follow Up With: Rupert Trivedi MD When: 4 weeks. Meaningful Use Info [...] New Bear Chi Primary Care Provider: Navdeep Holcomb Instructions Additional Instructions / Restrictions: Discharge home with 07/22/2024, [facility] PT/OT. Discharge Orders/Prescriptions Prescriptions: New sennosides-docusate sodium [...] for your A-fib. You will transfer to Acid Regenerator Dr. Mena at the [facility] on August 11. ) Rosalio Mena MD [Med Staff - Active Staff] - 08/11/24 11:00 am Navdeep Holcomb MD [Outreach Lab Services] - 07/27/24 11:20 am Disposition Disposition (needs filled in before D/C Order can be placed): Home Health Service 07/21/242036 <Electronically signed by New Bear MD> Cosigner Signature (if applicable): CC: Dr. New Bear MD; Dr. Navdeep Holcomb MD~ Signed [facility] Work Phone: [phone]) 264-585505-15-2025 Discharge summary [facility] Medical Records Department [address] [place] [address] Discharge Summary 07/21/242029 MR#: [id number] Acct: [id number] Name: AZALEA MOTT Rep #:[id number] : 1950 74 From: New Bear MD PCP: Dr. Navdeep Holcomb MD Status:A DM IN Location: [place] [address] Providers Date of Admission: 07/06/24 Primary Care Physician: Dr. Navdeep Holcomb MD Reason For Visit: R TOTAL HIP [...] underwent right total hip arthroplasty 06/30/2024with Dr. Bergeron ([facility]), postoperative course complicated by atrial fibrillation [...] 5mg bid, Schedule office appointment with Dr. Anidno or Vj Gonzalez for consultation. * Iron [...] unit) capsule (Vitamin D3) 2,000 unitPO DAILY wiubhqzoya05/19/21 fiber 3 cap PO DAILY supplement 09/24/20 [...] underwent right total hip arthroplasty 06/30/2024with Dr. Bergeron ([facility]), postoperative course complicated by atrial fibrillation with RVR, admitted to TCU with debility, here for rehabilitation, strengthening, prior to discharge home with . Discharge home with 07/22/2024, [facility] PT/OT. Physical Exam Const alert General [...] Neut %(Auto) 64.1, Lymph % (Auto) 22.9, [place] % (Auto) 8.1, Eos % (Auto) 3.6, [...] Additional Instructions: Discharge home with 07/22/2024, [facility] PT/OT. Please Follow Up With: Rupert Trivedi MD When: 4 weeks. Meaningful Use Info [...] New Bear Chi Primary Care Provider: Navdeep Holcomb Instructions Additional Instructions / Restrictions: Discharge home with 07/22/2024, [facility] PT/OT. Discharge Orders/Prescriptions Prescriptions: New sennosides-docusate sodium [...] DAILY Referrals / Follow Up: Roxanne Quesada CIRCLE BEVELER [Other] (Follow-up as needed for your A-fib. You will transfer to Acid Regenerator Dr. Mena at the [facility] on August 11. ) Rosalio Mena MD [Med Staff - Active Staff] - 08/11/24 11:00 am Navdeep Holcomb MD [Outreach Lab Services] - 07/27/24 11:20 am Disposition Disposition (needs filled in before D/C Order can be placed): Home Health Service 07/21/242036 Cosigner Signature (if applicable): CC: Dr. New Bear MD; Dr. Navdeep Holcomb MD~ Signed [facility]05-15-2025 [facility] Medical Records Department [address] [place] [address] Discharge Summary 07/21/242029 MR#: [id number] Acct: [id number] Name: AZALEA MOTT Rep #: [id number] : 1950 74 From: New Bear MD PCP: Dr. Navdeep Holcomb MD Status:ADM IN Location: [place] [address] Providers Date of Admission: 07/06/24 Primary Care Physician: Dr. Navdeep Holcomb MD Reason For Visit: R TOTAL HIP [...] right total hip arthroplasty 06/30/[address] Bergeron ([facility]), postoperative course complicated by atrial fibrillation [...] right total hip arthroplasty 06/30/[address] Bergeron ([facility]), postoperative course complicated by atrial fibrillation with RVR, admitted to TCU with debility, here for rehabilitation, strengthening, prior to discharge home with . Discharge home with 07/22/2024, [facility] PT/OT. Physical Exam Const alert General [...] Skin Exam: no breakdown (more content not included)...[facility]05-15-2025 Telephone encounter Note* Telephone Encounter - Navdeep Holcomb MD - 07/21/2024 2:26 PM EDT I can follow HH. [facility]05-15-2025 Miscellaneous Notes* Telephone Encounter - Navdeep Holcomb MD - 07/21/2024 2:26 PM EDT I can follow HH. * Telephone Encounter - Julia Pleitez LPN - 07/21/2024 1:39 PM EDT Navdeep Holcomb MD Please advise if you are agreeable to signing and following for HHC services? Our Clinicians will be sending the Plan of Care to you for review and approval. They will reach out for any appropriate orders required to provide home care services for the patient. We are not able to initiate HHC services without a following provider. Home care clinicians may also obtain orders from [facility] Virtualist Providers Thank you and we would be happy to answer any questions. Julia Pleitez LPN documented in this encounterProtestant Hospital05-15-2025 Telephone encounter Note * Telephone Encounter - Julia Pleitez LPN - 07/21/2024 2:01 PM EDT Images from the original note were not included. Date/Time: 07/21/2024 2:01 PM Spoke with Azalea @ phone #: [phone] - Preferred # for contact: [phone] Have you received help from a home care company in the last 60 days? no Are you agreeable to HHC services? yes What address will we be seeing you at? [address] [facility] [address] Do you have any upcoming appointments or things we need to schedule around? no Do you have a teachable CG or can you manage your care independently? Independent, family supportive [facility] Work Phone: [phone]713 Miscellaneous Notes* Telephone Encounter - Julia Pleitez LPN - 07/21/2024 2:01 PM EDT Images from the original note were not included. Date/Time: 07/21/2024 2:01 PM Spoke with Azalea @ phone #: [phone] - Preferred # for contact: [phone] Have you received help from a home care company in the last 60 days? no Are you agreeable to HHC services? yes What address will we be seeing you at? [address] [facility] [address] Do you have any upcoming appointments or things we need to schedule around? no Do you have a teachable CG or can you manage your care independently? Independent, family supportive documented in this encounterProtestant Hospital05-15-2025 Telephone encounter Note * Telephone Encounter - Julia Pleitez LPN - 07/21/2024 1:39 PM EDT Navdeep Holcomb MD Please advise if you are agreeable to signing and following for HHC services? Our Clinicians will be sending the Plan of Care to you for review and approval. They will reach out for any appropriate orders required to provide home care services for the patient. We are not able to initiate HHC services without a following provider. Home care clinicians may also obtain orders from [facility] Virtualist Providers Thank you and we would be happy to answer any questions. Julia Pleitez LPN [facility] Work Phone: [phone]) 893-654505-14-2025 Telephone encounter Note* Telephone Encounter - Florida Montero LPN - 07/20/2024 5:07 PM EDT Jamal Larios PA-C Thank you for the referral for Azalea to receive home care services through [facility]. Is Azalea still inpatient at [facility]? Typically the disability case manager at the facility sets up [...] seeing the patient for. Thank you, Florida Montero LPN [facility]05-14-2025 Miscellaneous Notes* Telephone Encounter - Florida Montero LPN - 07/20/2024 5:07 PM EDT Jamal Larios PA-C Thank you for the referral for Azalea to receive home care services through [facility]. [facility]? Typically the disability case manager at the facility sets up [...] seeing the patient for. Thank you, Florida Montero LPN documented in this encounterProtestant Hospital05-14-2025 History of Present illness Narrative* Jamal Larios PA-C - 07/20/2024 2:30 PM EDT Post-op [...] new swelling, drainage, shortness of breath Jamal Larios PA-C Orthopaedic Surgery documented in this encounterProtestant Hospital05-14-2025 NoteHNO ID: [id number] Author: JAMAL LARIOS PA-C Service: ? Author Type: Physician Inclusion Manager Type: Progress Notes Filed: 07/20/2024 14:41 Note [...] new swelling, drainage, shortness of breath Jamal Larios PA-C [facility] History of Present illness Narrative* Pratibha Kurtz Tech - 07/20/2024 1:50 PM EDT Radiology [...] PATIENT PRESENTS WITH AN IMPLANTABLE OR ATTACHED MEDICAL CHEMIST: No RADIOLOGY DEPARTMENT: General X-ray: Exam(s) Completed: Pelvis X-Ray: Pelvis with Hip Right and Wt.Bearing PERIPHERAL IV DATA: Not applicable SIGNED BY: Delilah Richards July 20, 2024 1:57 PM documented in this encounterProtestant Hospital05-14-2025 NoteHNO ID: [id number] Author: PRATIBHA KURTZ Tech Service: ? Author Type: Mobile Application Development Lead Type: Progress Notes Filed: 07/20/2024 13:58 Note [...] PATIENT PRESENTS WITH AN IMPLANTABLE OR ATTACHED MEDICAL CHEMIST: No RADIOLOGY DEPARTMENT: General X-ray: Exam(s) Completed: Pelvis X-Ray: Pelvis with Hip Right and Wt. Bearing PERIPHERAL IV DATA: Not applicable SIGNED BY: Delilah Richards July 20, 2024 1:57 PMSt. Charles [id number] Telephone encounter Note* Telephone Encounter - Alexandrea Ramey RN - 07/15/2024 9:01 AM EDT Pt is admitted to SNF in [place] transitional care unit. Dr. Garg is rounding on pt and adjusted metoprolol to 100 mg BID. Pt will be transitioning to [place] cardiology. [facility]05-09-2025 Miscellaneous Notes* Telephone Encounter - Alexandrea Ramey RN - 07/15/2024 9:01 AM EDT Pt is admitted to SNF in [place] transitional care unit. Dr. Garg is rounding on pt and adjusted metoprolol to 100 mg BID. Pt will be transitioning to [place] cardiology. * Telephone Encounter - Yamilka Celis - 07/14/2024 9:10 AM EDT Bianca, from [facility], calling to report the patient is admitted and has a heart rate has been between 130-140's. Bianca asked for a sooner follow up visit with cardiology, nothing sooner, patient on wait list. Please call to advise if any medication changes are need or other orders: [phone] Ask for Bianca or Bettie documented in this encounterProtestant Hospital05-08-2025 Telephone encounter Note * Telephone Encounter - Yamilka Celis - 07/14/2024 9:10 AM EDT Bianca, from [facility], calling to report the patient is admitted and has a heart rate has been between 130-140's. Bianca asked for a sooner follow up visit with cardiology, nothing sooner, patient on wait list. Please call to advise if any medication changes are need or other orders: [phone] Ask for Bianca or Bettie [facility]05-08-2025 Telephone encounter Note* Telephone Encounter - Kasie Escobar RN - 07/14/2024 8:21 AM EDT Kacy from [facility] [phone] Pt has elevated HR 130s. She was rescheduled d/t this to Jamal's schedule. [facility] Work Phone: 1([phone]) 339-616605-08-2025 Miscellaneous Notes* Telephone Encounter - Kasie Escobar RN - 07/14/2024 8:21 AM EDT Kacy from [facility] [phone] Pt has elevated HR 130s. She was rescheduled d/t this to Jamal's schedule. documented in this encounterProtestant Hospital05-07-2025 NoteHNO ID: [id number] Author: WANDA HERNANDEZ MA Service: ? Author Type: Automotive Mechanic Type: Progress Notes Filed: 07/13/2024 09:28 Note [...] Wanda Hernandez MA July 13, 2024 9:27 [facility]05-07-2025 History of Present illness Narrative* Wanda Hernandez [...] 13, 2024 9:27 AM documented in this encounterProtestant Hospital05-07-2025 NotePatient Outreach (NETNAV) AZALEA MOTT ([id number]) 1950 F Date Time Provider Department 07/13/24 WANDA HERNANDEZ During your visit today, we recorded the [...] dreams. Date Reviewed: 07/06/2024 Reviewed by: Pennie Webb, JACOB - Fully Assessed Reason for Visit: Population Health Navigation Outreach [3910] Cmt: [place]/Workbench/ACO Prescriptions as of 07/13/2024 - ascorbic acid, [...] 11/21/2011 03/28/2016 Thickened endometrium [R93.89] 12/05/2011 03/28/2016 [place] of foot [L84] 08/17/2013 03/28/2016 Primary osteoarthritis [...] 07/12/2024 Encounter Status:Closed by WANDA HERNANDEZ on 07/13/24[facility] 07-08-2024 Consult note Author Lupe Garces [facility] Note Date/Time July 08, 2024 3:26pm [facility] Medical Records Department [address] [place] [address] Counseling Note - Pharmacy 07/08/24 1500 MR#: [id number] Acct: [id number] Name: AZALEA MOTT BUD Rep #:[id number] : 1950 74 From: Lupe Garces PCP: Dr. Navdeep Holcomb MD Status:A DM IN Y Location: TCU [id number] Documented by User: Lupe Garces 07/08/24 15:09 TCU RX Drug Regimen Review Subjective/Objective Subjective/Objective: Subjective: 74 year old female with below past medical history underwent right total hip arthroplasty 06/30/[address] Bergeron ([facility]), postoperative course complicated by atrial fibrillation with RVR, admitted to TCU with debility, here for rehabilitation, strengthening, prior to discharge home with . Objective: Allergies No Known Allergies Allergy Current Medications Generic Name Dose Route Start Last Admin Trade Name Antwan PRN Reason Stop Dose Admin Acetaminophen 1,000 mg 07/06/24 22:00 07/08/24 13:19 Acetaminophen 500 Mg Tablet PO 1,000 mg Q8 MEI Administration Apixaban 5 mg 07/06/24 22:00 07/08/24 08:39 Apixaban 5 Mg Tablet PO 5 mg BID MEI Administration Ascorbic Acid 500 mg 07/07/24 08:00 07/08/24 08:38 Ascorbic Acid 500 Mg Tablet PO 07/25/24 08:01 500 mg DAILYCM MEI Administration Atorvastatin Calcium 10 mg 07/06/24 22:00 07/07/24 22:04 Atorvastatin Calcium 10 Mg Tablet PO 10 mg QHS MEI Administration Cefadroxil 500 mg 07/06/24 22:00 07/08/24 08:39 Cefadroxil 500 Mg Capsule PO 07/20/24 22:01 500 mg Q12 MEI Administration Cholecalciferol 50 mcg 07/07/24 08:00 07/08/24 08:38 Cholecalciferol (Vit D3) 25 Mcg Tablet (1,000 Units) PO 50 mcg DAILYCM MEI Administration Diltiazem HCl 300 mg 07/07/24 10:00 07/08/24 08:34 Diltiazem Cd 300 Mg Capsule PO 300 mg DAILY MEI Administration Protocol Ferrous Sulfate 650 mg 07/07/24 12:00 07/08/24 12:03 Ferrous Sulfate 325 Mg Tablet PO 650 mg DAILY@1200 MEI Administration Hydrocortisone 1 applic 07/06/24 22:00 07/08/24 08:40 Hydrocortisone 2.5% Crm TOPICAL 07/11/24 22:01 1 applic BID MEI Administration Protocol Magnesium Citrate 300 ml 07/06/24 20:42 Magnesium Citrate 300 Ml PO DAILY PRN Constipation Metoprolol Succinate 100 mg 07/07/24 10:00 07/08/24 08:34 Metoprolol(Xl)Succ 100 Mg Tablet PO 100 mg DAILY MIE Administration Protocol Multivitamins 1 tablet 07/07/24 08:00 07/08/24 08:38 Multivitamins,Therapeutic Tablet PO 1 tablet DAILYCM MEI Administration Oxycodone HCl 5 - 10 mg 07/06/24 20:42 07/08/24 13:18 Oxycodone 5 Mg Tablet PO 10 mg Q4H PRN PRN Administration Pain Score 6-10 or Pre PT/OT Pantoprazole Sodium 40 mg 07/07/24 08:00 07/08/24 08:38 Pantoprazole Sodium 40 Mg Tablet PO 40 mg 0800 EMI Administration Polyethylene Glycol 17 gm 07/07/24 10:00 07/08/24 08:39 Polyethylene Glycol 3350 17 Gm Packet PO Not Given DAILY MEI Senna/Docusate Sodium 2 tablet 07/06/24 22:00 07/08/24 08:39 Senna/Docusate Sodium 1 Tablet PO 2 tablet BID MEI Administration Tamsulosin HCl 0.4 mg 07/07/24 17:30 07/07/24 16:28 Tamsulosin Hcl 0.4 Mg Capsule PO 0.4 mg DAILY@1730 MEI Administration Tuberculin PPD 0.1 ml 07/14/24 10:00 Tuberculin,Purif.Prot.Deriv. 50 Tu/Ml Vial ID 07/14/24 10:01 X1 ONE Problem List (Updated 07/06/24 @ 20:[address] Nwe Bear MD) Venous insufficiency (Acute) Hyperlipidemia, unspecified [...] mg PO DAILY. Monitor for In/out (total output/Schulz 300 mL 07/08/2024), Orthostatic hypertension, andability to [...] Surveillance (Do Not Edit) Send communication to [facility] director: Yes Documented by User: Dr. New Bear MD 07/08/24 15:26 [facility] RX Drug Regimen Review Surveillance (Do Not Edit) Send communication to [facility] director: Yes 07/08/24 1509 <Electronically signed by Lupe quesada> Date _ Lupe Garces 07/08/24 1526 <Electronically signed by New Rodgers> Cosigner Signature (if applicable): Date New Bear MD CC: ~ Signed [facility] Work Phone: 1(558) 640-655805-02-2025 Consult note [facility] Medical Records Department [address] [place] [address] Counseling Note - Pharmacy 07/08/24 1500 MR#: [id number] Acct: [id number] Name: AZALEA MOTT Rep #:[id number] : 1950 74 From: Lupe Garces PCP: Dr. Navdeep Holcomb MD Status:A DM IN Y Location: [place] [address] Documented by User: Lupe Garces 07/08/24 15:09 TCU RX Drug Regimen Review Subjective/Objective Subjective/Objective: Subjective: 74 year old female with below past medical history underwent right total hip arthroplasty 06/30/[address] Bergeron ([facility]), postoperative course complicatedby atrial fibrillation with [...] Tablet PO 07/25/24 08:01 500 mg DAILYCM MEI Administration Atorvastatin Calcium 10 mg 07/06/24 22:00 07/07/24 22:04 Atorvastatin Calcium 10 Mg Tablet PO 10 mg QHS MEI Administration Cefadroxil 500 mg 07/06/24 22:00 07/08/24 08:39 Cefadroxil 500 Mg Capsule PO 07/20/24 22:01 500 mg Q12 MEI Administration Cholecalciferol 50 mcg 07/07/24 08:00 07/08/24 08:38 Cholecalciferol (Vit D3) 25 Mcg Tablet (1,000 Units) PO 50 mcg DAILYCM MEI Administration Diltiazem HCl 300 mg 07/07/24 10:00 07/08/24 08:34 Diltiazem Cd 300 Mg Capsule PO 300 mg DAILY MEI Administration Protocol Ferrous Sulfate 650 mg 07/07/24 12:00 07/08/24 12:03 Ferrous Sulfate 325 Mg Tablet PO 650 mg DAILY@1200 MEI Administration Hydrocortisone 1 applic 07/06/24 22:00 07/08/24 08:40 Hydrocortisone 2.5% Crm TOPICAL 07/11/24 22:01 1 applic BID MEI Administration Protocol Magnesium Citrate 300 ml 07/06/24 20:42 Magnesium Citrate 300 Ml PO DAILY PRN Constipation Metoprolol Succinate 100 mg 07/07/24 10:00 07/08/24 08:34 Metoprolol(Xl)Succ 100 Mg Tablet PO 100 mg DAILY MEI Administration Protocol Multivitamins 1 tablet 07/07/24 08:00 07/08/24 08:38 Multivitamins,Therapeutic Tablet PO 1 tablet DAILYCM MEI Administration Oxycodone HCl 5 - 10 mg 07/06/24 20:42 07/08/24 13:18 Oxycodone 5 Mg Tablet PO 10 mg Q4H PRN PRN Administration Pain Score 6-10 or Pre PT/OT Pantoprazole Sodium 40 mg 07/07/24 08:00 07/08/24 08:38 Pantoprazole Sodium 40 Mg Tablet PO 40 mg 0800 [facility] Administration Polyethylene Glycol 17 gm 07/07/24 10:00 07/08/24 08:39 Polyethylene Glycol 3350 17 Gm Packet PO Not Given DAILY [facility] Senna/Docusate Sodium 2 tablet 07/06/24 22:00 07/08/24 08:39 Senna/Docusate Sodium 1 Tablet PO 2 tablet BID MEI Administration Tamsulosin HCl 0.4 mg 07/07/24 17:30 07/07/24 16:28 Tamsulosin Hcl 0.4 Mg Capsule PO 0.4 mg DAILY@1730 [facility] Administration Tuberculin PPD 0.1 ml 07/14/24 [...] mg PO DAILY. Monitor for In/out (total output/Schulz 300 mL 07/08/2024), Orthostatic hypertension, andability to [...] Surveillance (Do Not Edit) Send communication to [facility] director: Yes Documented by User: Dr. New Bear MD 07/08/24 15:26 [facility] RX Drug Regimen Review Surveillance (Do Not Edit) Send communication to [facility] director: Yes 07/08/24 1509 ey> Date _ Lupe Garces 07/08/24 1526 D> Nick Signature (if applicable): Date New Bear MD CC: ~ Signed [facility]04-30-2025 History and physical note Author New Bear [facility] Note Date/Time July 06, 2024 8:5 3pm [facility] Medical Records Department [address] [place] [address] History & Physical Exam 07/06/242021 MR#: [id number] Acct: [id number] Name: AZALEA MOTT Rep #:[id number] : 1950 74 From: New Bear MD PCP: Navdeep Holcomb MD Status:ADM IN Location: [place] [address] HPI - General General Date of Admission: 07/06/24 Date of Service: 07/06/24 Chief Complaint: Here for rehabilitation. HPI Narrative AZALEA MOTT, is a 74 Female who presents with followin06/30/2024 Admit to [facility]. 06/30/2024 Dr. Bergeron performed robotic assisted right total hip arthroplasty. [...] strengthening, prior to discharge home with . [facility] Medical History (Updated 07/06/24 @ 20:35 by [...] right total hip arthroplasty 06/30/[address] Bergeron ([facility]), postoperative course complicated by atrial fibrillation [...] applicable): CC: Dr. New Bear MD; Navdeep Holcomb MD~ Signed ADDENDUM by Dr. New Bear MD on 07/06/24 at 2052 Addendum Urinary retention - indwelling schulz catheter, add Tamsulosin 0.4mg daily, voiding trials next week. 07/06/242052<Electronically signed by New Bear MD> Cosigner Signature (if applicable): cc: Dr. New Bear MD; Navdeep Holcomb MD ~* Signed [facility] Work Phone: 1(586) 740-218004-30-2025 History and physical note [facility] Medical Records Department [address] [place] [address] History & Physical Exam 07/06/242021 MR#: [id number] Acct: [id number] Name: AZALEA MOTT Rep #:[id number] : 1950 74 From: New Bear MD PCP: Navdeep Holcomb MD Status:ADM IN Location: [place] [id number] HPI - General General Date of Admission: 07/06/24 Date of Service: 07/06/24 Chief Complaint: Here for rehabilitation. HPI Narrative AZALEA MOTT, is a 74 Female who presents with followin06/30/2024 Admit to [facility]. 06/30/2024 Dr. Bergeron performed robotic assisted right total hip arthroplasty. [...] strengthening, prior to discharge home with . [facility] Medical History (Updated 07/06/24 @ 20:35 by [...] underwent right total hip arthroplasty 06/30/2024with Dr. Bergeron ([facility]), postoperative course complicated by atrial fibrillation [...] applicable): CC: Dr. New Bear MD; Navdeep Holcomb MD~ Signed ADDENDUM by Dr. New Bear MD on 07/06/24 at 2052 Addendum Urinary retention - indwelling schulz catheter, add Tamsulosin 0.4mg daily, voiding trials next week. 07/06/242052 Cosigner Signature (if applicable): cc: Dr. New Bear MD; Navdeep Holcomb MD ~* Signed [facility]04-30-2025 [facility] Medical Records Department [address] [place] [address] History Physical Exam 07/06/242021 MR#: [id number] Acct: [id number] Name: AZALEA MOTT Rep #: [id number] : 1950 74 From: New Bear MD PCP: Navdeep Holcomb MD Status:ADM IN Location: [facility] TCU19-1 HPI - General General Date of Admission: 07/06/24 Date of Service: 07/06/24 Chief Complaint: Here for rehabilitation. HPI Narrative AZALEA MOTT, is a 74 Female who presents with followin06/30/2024 Admit to [facility]. 06/30/2024 Dr. Bergeron performed robotic assisted right total hip arthroplasty. [...] strengthening, prior to discharge home with . 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 06, 2024 1:28pm [facility] Work Phone: 1(398) 261-924904-30-2025 Evaluation note* Diagnosis Onset Date Resolution Status [...] total hip replacement, right resolved July 06, 2 025 1:28pm Bilateral lower extremity edema acut e August 11, 2024 10:37am Hypertension chronic August 11 10:37am Paroxysmal atrial fibrillation chron ic August 11, 2024 10:37am Status post right hip replacement resolved August 11, 2024 1 0:37am [facility] Work Phone: 1([phone]) 146-595604-30-2025 Evaluation note* Diagnosis Onset Date Resolution Status [...] total hip replacement, right resolved July 06, 2 025 1:28pm Bilateral lower extremity edema acut e August 11, 2024 10:37am Hypertension chronic August 11 10:37am Paroxysmal atrial fibrillation chron ic August 11, 2024 10:37am Status post right hip replacement resolved August 11, 2024 1 0:37am Hypertension chronic September 13 9:12am Paroxysmal atrial fibrillation chron ic September 13, 2024 9:12am [facility] Work Phone: 1(561) 679-942104-30-2025 Evaluation note* Diagnosis Onset Date Resolution Status [...] total hip replacement, right resolved July 06, 2 025 1:28pm Bilateral lower extremity edema acut e August 11, 2024 10:37am Hypertension chronic August 11 10:37am Paroxysmal atrial fibrillation chron ic August 11, 2024 10:37am Status post right hip replacement resolved August 11, 2024 1 0:37am Diastolic dysfunction acute Sep 9:12am Hypertension chronic September 13 9:12am Paroxysmal atrial fibrillation chron ic September 13, 2024 9:12am Bradycardia acute September 30 2:35pm Paroxysmal atrial fibrillation chron ic September 30, 2024 2:35pm [facility] Work Phone: 1(911) 590-963404-30-2025 Evaluation note* Diagnosis Onset Date Resolution Status [...] total hip replacement, right resolved July 06, 2 025 1:28pm Bilateral lower extremity edema acut e August 11, 2024 10:37am Hypertension chronic August 11 10:37am Paroxysmal atrial fibrillation chron ic August 11, 2024 10:37am Status post right hip replacement resolved August 11, 2024 1 0:37am Diastolic dysfunction acute Sep 9:12am Hypertension chronic September 13 9:12am Paroxysmal atrial fibrillation chron ic September 13, 2024 9:12am Bradycardia acute September 30 2:35pm Paroxysmal atrial fibrillation chron ic September 30, 2024 2:35pm Tachy-prudencio syndrome acute Augu st 2024 12:55pm Paroxysmal atrial fibrillation chron ic November 02, 2024 12:55pm Tachy-prudencio syndrome acute Augu st 2024 12:55pm Hyperlipidemia, unspecified chronic November 02, 2024 12:55pm Hypertension chronic November 02, 2024 12:55pm Paroxysmal atrial fibrillation chron ic November 02, 2024 12:55pm [facility] Work Phone: [phone]) 919-901304-30-2025 NoteHNO ID: [id number] Author: BASIA ESTRADA RN Service: Care Management Author Type: Registered Nurse Type: Care Mgt Progress Note Filed: 07/06/2024 08:58 Note Text: CARE MANAGEMENT DISCHARGE NOTE SERVICE DATE: July 06, 2024 SERVICE TIME: 8:56 AM Admission Date: 06/30/2024 LOS: 4 days Discharge Arrangement Discharge Arrangement: [facility] Was an expedited discharge program used?: No Services Arranged Medical Services: Other: See Comment Provider Name: [facility] Caregiver Assessment Caregiver is ready, willing and able to meet the patient's needs as recommended by the inter-professional team: Yes Name of Caregiver: [facility] Transportation Arrangements Transportation Arrangements: Ambulance Transportation Agency and Phone #:: [facility] [phone] Date of Trip: 07/06/24 Time of Trip: 1100 Type of Service: BLS Non-emergency Is Patient Medicaid Pending?: No Was transportation financial coverage discussed with family?: Patient Billing Spec Location: [place] Destination: [facility] Financial Care Management Responsibility: None Handoff Communication: Handoff to: Primary Care Physician, Other Caregiver Primary Care Physician Name/Phone: Navdeep Holcomb [phone] Other Caregiver Name/Phone: [facility] [phone] Additional Information: Discharge written for patient to go to SNF. [facility] has accepted. Patient agreeable to discharge plan and denies needs. 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 Bedside nurse updated. SOC sent to PCP and SNF. Discharge orders sent to [facility] via transitions. Envelope on chart with number to call report. Discharge Information Row Name Admission (Current) from 06/30/2024 in [facility] Agency -- Phone# -- Start of Care -- SIGNATURE: Basia Estrada RN PATIENT NAME: Azalea Mott DATE: July 06, 2024 TIME: 8:56 AMSt. Charles HospitalJnlkkjbj46-36-7606 NoteHNO ID: [id number] Author: SHELLY BARRETT PA-C Service: Orthopaedic Surgery Author Type: Physician Inclusion Manager Type: Progress Notes Filed: 07/06/2024 08:52 Note [...] appreciated - Case Management for discharge planning; [facility] has accepted - Dispo: anticipate DC to [facility] today Plan of care discussed with: Provider, [...] 1430 VTE RISK CATEGORY: SURGICAL HIGH RISK ([place], [place]) Active VTE Medication Orders: Anticoagulant AND Antiplatelet Medications (From admission, onward) Start Dose Route Frequency Last Action Ordered Stop 07/05/24 0900 apixaban 5 mg tab(s) (ELIQUIS) (apixaban tab(s) (ELIQUIS)) 5 mg ORAL 2 TIMES DAILY Given, 07/06 0800 07/05/24 0714 -- Active VTE Prophylaxis Orders: 06/30/24 143 VTE CURRENT ANTICOAG THERAPY ([place], [place]) 06/30/24 143 PNEUMATIC COMPRESSION SLEEVE(S) ([place]) 06/30/24 1430 ACTIVITY - MOBILIZE PATIENT ([place], [place]) PHYSICAL EXAMINATION: Right Lower Extremity: Dorsalis [...] addiction). Patient demonstrated understanding of risks versus benefits.St. Charles HospitalOentimkn07-17-8952 NoteHNO ID: [id number] Author: RUPERT TRIVEDI MD Service: General Internal Medicine Author Type: [...] P in the last 24 hours. SIGNATURE: MAGALY LopezProMedica Toledo HospitalOlwpgrrq30-20-2785 NoteHNO ID: [id number] Author: BASIA ESTRADA RN Service: Care Management Author Type: Registered Nurse Type: Care Mgt Progress Note Filed: 07/05/2024 15:10 Note Text: CARE MANAGEMENT PROGRESS NOTE SERVICE DATE: 07/05/2024 SERVICE TIME: 3:09 PM LOS: 3 days IMM Follow Up Copy Given: Yes Copy given to:: Patient Method: In Person PT/OT rec SNF. [facility] is [facility] and has accepted but need patient to admit tomorrow. Plan for d/c tomorrow. Discussed transportation with patient and she requested medical transport be arranged. Discussed possible cost for transport. Transport arranged for 11 AM tomorrow. SIGNATURE: Basia Estrada RN PATIENT NAME: Azalea Mott DATE: July 05, 2024 TIME: 3:09 PMSt. Charles HospitalFochmfde26-93-5367 NoteHNO ID: [id number] Author: RUPERT TRIVEDI MD Service: General Internal Medicine Author Type: Physician Type: Progress Notes Filed: 07/05/2024 09:25 Note Text: INPATIENT PROGRESS NOTES Patient Name: Azalea Mott DATE of SERVICE: 07/05/2024 TIME of SERVICE: 8:24 PRIMARY SERVICE: medicine INTERVAL HPI: No nausea or vomiting. No lightheadedness or dizziness. No palpitation, no bowel movement schulz was reinserted for retention ASSESSMENT AND PLAN: [...] in the last 24 hours. SIGNATURE: Rupert Trivedi [facility] [id number] NoteHNO ID: [id number] Author: SHELLY BARRETT PA-C Service: Orthopaedic Surgery Author Type: Physician Inclusion Manager Type: Progress Notes Filed: 07/05/2024 07:43 Note [...] Intake/Output Summary (Last 24 hours) at 07/05/2024 0740 Last data filed at 07/05/2024 0553 Gross [...] 1430 VTE RISK CATEGORY: SURGICAL HIGH RISK ([place]) Active VTE Medication Orders: Anticoagulant AND Antiplatelet Medications (From admission, onward) Start Dose Route Frequency Last Action Ordered Stop 07/05/24 0900 apixaban 5 mg tab(s) (ELIQUIS) (apixaban tab(s) (ELIQUIS)) 5 mg ORAL 2 TIMES DAILY Ordered 07/05/24 0714 -- Active VTE Prophylaxis Orders: 06/30/24 143 VTE CURRENT ANTICOAG THERAPY ([place]) 06/30/24 143 PNEUMATIC COMPRESSION SLEEVE(S) [place] 06/30/24 143 ACTIVITY - MOBILIZE [place]IENT ([place]) PHYSICAL EXAMINATION: Right Lower Extremity: Dorsalis pedis [...] addiction). Patient demonstrated understanding of risks versus benefits.[facility]. [facility] HospitalHbrxgfpi32-40-6443 NoteHNO ID: [id number] Author: BASIA ESTRADA RN Service: Care Management Author Type: Registered Nurse Type: Care Mgt Progress Note Filed: 07/04/2024 16:08 Note Text: CARE MANAGEMENT PROGRESS NOTE SERVICE DATE: 07/04/2024 SERVICE TIME: 4:06 PM LOS: 2 days Needs Prior to Discharge: To Be Determined, Accepting Facility, Bed Availability Hazel of Choice Given: Yes Level of Care Discussed: [facility] Financial Disclosure Provided: Yes Provider List: [facility] Provider list within the patient's requested geographic area shared with the patient/family: Yes of zip code: [address] Quality and resource use metrics shared with the patient that are relevant to the patient's goals of care and treatment preferences:: Yes Metrics: Functional Status, Discharge to Community, Potentially Preventable 30-day Post Discharge Readmission Rates EMR reviewed. PT/OT rec SNF. Met with patient at bedside to discuss SNF. List provided. Patient picked out [facility] and [facility]. Referrals placed. No precert needed for SNF placement. SIGNATURE: Basia Estrada RN PATIENT NAME: Azalea Mott DATE: July 04, 2024 TIME: 4:06 [facility] HospitalHqzgplex35-58-3801 NoteHNO ID: [id number] Author: RUPERT TRIVEDI MD Service: General Internal Medicine Author Type: [...] Labs 07/04/24 0635 MG 2.1 SIGNATURE: Rupert Trivedi [facility], AvonGwgovbfa13-09-6702 NoteHNO ID: [id number] Author: SHELLY BARRETT PA-C Service: Orthopaedic Surgery Author Type: Physician Inclusion Manager Type: Progress Notes Filed: 07/04/2024 10:02 Note [...] 143 VTE RISK CATEGORY: SURGICAL HIGH RISK ([place]) Active VTE Medication Orders: Anticoagulant AND Antiplatelet Medications (From admission, onward) Start Dose Route Frequency Last Action Ordered Stop 07/04/24 09 apixaban 2.5 mg tab(s) (ELIQUIS) (apixaban tab(s) (ELIQUIS)) 2.5 mg ORAL 2 TIMES DAILY Given, 07/04 0841 07/03/24 1022 -- Active VTE Prophylaxis Orders: 06/30/24 143 VTE CURRENT ANTICOAG TH[place]APY ([place]) 06/30/24 143 PNEUMATIC COMPRESSION SLEEVE(S) [place]) 06/30/24 1430 ACTIVITY - MOBILIZE PATIENT ([place] PHYSICAL EXAMINATION: Right Lower Extremity: Dorsalis [...] addiction). Patient demonstrated understanding of risks versus benefits.[facility]. [facility] HospitalNfcvwhvo91-47-1789 NoteHNO ID: [id number] Author: RUPERT TRIVEDI MD Service: General Internal Medicine Author Type: Physician Type: Progress Notes Filed: 07/03/2024 11:26 Note Text: INPATIENT PROGRESS NOTES Patient Name: Azalea Mott DATE of SERVICE: TIME of SERVICE: 9:30 PRIMARY SERVICE: medicine INTERVAL HPI: No nausea or vomiting. No lightheadedness or dizziness. No palpitation, intermittent A fib with RVR, received iv lopressor in pigment presser ASSESSMENT AND PLAN: Osteoarthritis, status post right [...] in the last 24 hours. SIGNATURE: Rupert Trivedi, [facility], AvonWyknwknb30-19-8267 NoteHNO ID: [id number] Author: ELIGIO BERGERON MD Service: Orthopaedic Surgery Author Type: Physician [...] 120/59 Pulse: (!) [phone] Resp: 22 Temp: 36.7 ?C (98 ?F) 36.9 ?C [...] small small nickel sized superior dressing - 07/11 PF, DF, EHL - SILT L4-S1 - [...] the last 168 hours. Invalid input(s): LARRY Bergeron MD Associate Staff Physician [facility] Department of Orthopedic Surgery [phone] [id number] NoteHNO ID: [id number] Author: ALICIA MACIAS MD Service: Orthopaedic Surgery [...] 1430 VTE RISK CATEGORY: SURGICAL HIGH RISK ([place]) Active VTE Medication Orders: Anticoagulant AND Antiplatelet Medications (From admission, onward) Start Dose Route Frequency Last Action Ordered Stop 07/04/24 0900 apixaban 2.5 mg tab(s) (ELIQUIS) (apixaban tab(s) (ELIQUIS)) 2.5 mg ORAL 2 TIMES DAILY Ordered 07/03/24 1022 -- Active VTE Prophylaxis Orders: 06/30/24 1430 VTE CURRENT ANTICOAG THERAPY ([place]) 06/30/24 1430 PNEUMATIC COMPRESSION SLEEVE(S) ([place] 06/30/24 1430 ACTIVITY - MOBILIZE PATIENT ([place] PHYSICAL EXAMINATION: Right Lower Extremity: Dorsalis [...] page the orthopaedic on-call resident at: [facility]ONE ([id number]) for [place] patients [phone] for [facility] patients [address] for [facility] patients [address] for [facility] patients [phone] for [facility] patients Please page 2B[facility] ([id number]) from 5p-6a and on weekends for any issues.[facility]. [facility] HospitalQtpawilx62-13-8012 NoteHNO ID: [id number] Author: RUPERT TRIVEID MD Service: General Internal Medicine Author Type: [...] Labs 07/01/24 1530 MG 1.7 SIGNATURE: Rupert Trivedi, [facility], [id number] NoteHNO ID: [id number] Author: ALICIA MACIAS MD Service: Orthopaedic Surgery [...] 1430 VTE RISK CATEGORY: SURGICAL HIGH RISK ([place]) Active VTE Medication Orders: Anticoagulant AND Antiplatelet Medications (From admission, onward) Start Dose Route Frequency Last Action Ordered Stop 07/01/24 1700 apixaban 2.5 mg tab(s) (ELIQUIS) (apixaban tab(s) (ELIQUIS)) 2.5 mg ORAL 2 TIMES DAILY Given, 07/02 0938 06/30/24 1418 -- Active VTE Prophylaxis Orders: 06/30/24 1430 VTE CURRENT ANTICOAG THERAPY ([place] 06/30/24 1430 PNEUMATIC COMPRESSION SLEEVE(S) ([place] 06/30/24 1430 ACTIVITY - MOBILIZE PATIENT ([place] PHYSICAL EXAMINATION: Right Lower Extremity: Dorsalis [...] page the orthopaedic on-call resident at: 2[facility]ONE ([id number]) for [facility] patients [address] for [facility] patients [address] for [facility] patients [address] for [facility] patients [phone] for [facility] patients Please page 2BONE ([id number]) from 5p-6a and on weekends for any issues.[facility] HospitalGfuxvlbb19-46-7432 NoteHNO ID: [id number] Author: RUPERT TRIVEDI MD Service: General Internal Medicine Author Type: Physician Type: Progress Notes Filed: 07/01/2024 16:08 Note Text: A fib with RVR Pt given iv lopressor and po IV fluid bolus Labs ordered Will give digoxin 250 mg IV Rupert Trivedi MD 07/01/2024[facility]. [facility] HospitalYguzhlpl82-22-7658 NoteHNO ID: [id number] Author: RUPERT TRIVEDI MD Service: General Internal Medicine Author Type: [...] Exogenous Class 2 Obesity CBC: Recent Labs 07/01/24 0328 WBC 13.62* RBC 3.29* HB 9.9* HCT 29.9* PLT 190 MCV 90.9 MCH 30.1 MPV 11.2 Coags: CMP: Recent Labs 07/01/24 0328 NA 135* K 4.7 CHLOR 102 CO2 [...] the last 24 hours. SIGNATURE: Rupert Guerrero Eric [facility], AvonNfcyqpgf04-42-3668 NoteHNO ID: [id number] Author: ANGELA AGOSTO RN Service: Care Management Author Type: Registered Nurse Type: Care Mgt Initial Assessment Filed: 07/01/2024 10:09 Note Text: CARE MANAGEMENT: ASSESSMENT AND DISCHARGE PLAN SERVICE DATE: July 01, 2024 SERVICE TIME: 9:28 AM PCP: Navdeep Holcomb MD Primary Contact: Extended Emergency Contact Information Primary Emergency Contact: Uli Mott Address: [address] [place] [address] Mobile Relation: Spouse Admission Status: Extended Recovery Insurance Provider: MEDICARE A AND B Discharge Planning requested by: Per Department Practice Potential Transition Plans Home OT/PT Advance Directives Current Advance Directive: Health Care Power of Commodity Analyst, Living Will In Chart: Yes Up To [...] Be able to go home, General wellness Hazel of Choice Explained: Hazel of Choice Given: Yes Level of Care Discussed: Home Care (referral to [facility]) Are you interested in bedside delivery of [...] IPTA. DME as listed above. PT recommending [facility]. Referral to [facility]. Spouse to transport home. CM will follow. 10:09 AM [facility] is able to accept. SIGNATURE: Angela Agosto RN PATIENT NAME: Azalea Mott DATE: July 01, 2024 TIME: 9:28 AMSt. Charles [id number] NoteHNO ID: [id number] Author: SHELLY BARRETT PA-C Service: Orthopaedic Surgery Author Type: Physician Inclusion Manager Type: Progress Notes Filed: 07/01/2024 08:46 Note [...] 1430 VTE RISK CATEGORY: SURGICAL HIGH RISK ([place]) Active VTE Medication Orders: Anticoagulant AND Antiplatelet Medications (From admission, onward) Start Dose Route Frequency Last Action Ordered Stop 07/01/24 1700 apixaban 2.5 mg tab(s) (ELIQUIS) (apixaban tab(s) (ELIQUIS)) 2.5 mg ORAL 2 TIMES DAILY Ordered 06/30/24 1418 -- Active VTE Prophylaxis Orders: 06/30/24 1430 VTE CURRENT ANTICOAG THERAPY ([place], [place]) 06/30/24 1430 PNEUMATIC COMPRESSION SLEEVE(S) ([place]) 06/30/24 1430 ACTIVITY - MOBILIZE PATIENT ([place], [place]) PHYSICAL EXAMINATION: Right Lower Extremity: Dorsalis [...] addiction). Patient demonstrated understanding of risks versus benefits.[facility] [id number] NoteHNO ID: [id number] Author: CHERIE GRIFFITH PA-C Service: General Surgery Author Type: Physician Inclusion Manager Type: Progress Notes Filed: 06/30/2024 15:28 Note [...] Mott DATE: June 30, 2024 TIME: 3:26 PMSt. Charles [id number] NoteHNO ID: [id number] Author: JAVIER PERRY APRN.RETAIL BUYER Service: Anesthesiology Author Type: Nurse Mathematics Technician Type: Anesthesia Procedure Notes Filed: 06/30/2024 11:06 Note Text: ANESTHESIOLOGY PROCEDURE NOTE Airway General Information Procedure Start Time/Medication Administration: 06/30/2024 10:28 AM Procedure End Time: 06/30/2024 10:28 AM Patient location during procedure: OR Timeout Performed Pre-procedure: timeout performed Consent Obtained: Yes Patient identity confirmed: arm band and care steam tender Staffing RETAIL BUYER: Javier Perry APRN.RETAIL BUYER Performed by: RETAIL BUYER Indications and Patient Condition Indications for airway [...] June 30, 2024 TIME: 11:05 AM CSN: [id number] [id number] Telephone encounter Note * Telephone Encounter - Yobani Valle - 06/28/2024 2:16 PM EDT Patient called and notified of physician's response. She stated that it already looks better. She will continue to use the topical Carmex but she just wanted to keep us informed. She will call if shehas any other questions or concerns. Yobani Carter [facility]04-22-2025 Telephone encounter Note* Telephone Encounter - Yobani Valle - 06/28/2024 2:16 PM EDT Images from the original note were not included. Eligio Bergeron MD You; Kasie Escobar RN; Jamal Larios PA- C1 hour ago (12:54 PM) Nope just depends what it looks like on the day of surgery [facility]04-22-2025 Miscellaneous Notes* Telephone Encounter - Yobani Valle - 06/28/2024 2:16 PM EDT Patient called and notified of physician's response. She stated that it already looks better. She will continue to use the topical Carmex but she just wanted to keep us informed. She will call if shehas any other questions or concerns. Yobani Carter * Telephone Encounter - Yobani Valle - 06/28/2024 2:16 PM EDT Images from the original note were not included. Eligio Bergeron MD You; Kasie Escobar RN; Jamal Larios PA- C1 hour ago (12:54 PM) Nope just depends what it looks like on the day of surgery * Telephone Encounter - Yobani Valle - 06/28/2024 11:06 AM EDT Sorry, this should have been sent to your team. Yobani Carter * Telephone Encounter - Yobani Valle - 06/28/2024 10:56 AM EDT Patient is scheduled for surgery on at [facility]. She has the early start of a fever blister on her upper lip. She gets these when she is stressed. She immediately started putting Carmexon it. She is hoping that this will not stop her from having surgery. She can be reached at [phone]. Yobani Carter documented in this encounterProtestant Hospital04-22-2025 Telephone encounter Note * Telephone Encounter - Yobani Valle - 06/28/2024 11:06 AM EDT Sorry, this should have been sent to your team. Yobani Carter [facility]04-22-2025 Telephone encounter Note* Telephone Encounter - Yobani Valle - 06/28/2024 10:56 AM EDT Patient is scheduled for surgery on at [facility]. She has the early start of a fever blister on her upper lip. She gets these when she is stressed. She immediately started putting Carmexon it. She is hoping that this will not stop her from having surgery. She can be reached at [phone]. Yobani Carter [facility]04-21-2025 Telephone encounter Note* Telephone Encounter - Kasie Escobar RN - 06/27/2024 10:53 AM EDT Patient needs to hold eliquis 3 days prior to surgery Thanks [place] Attempted to call patient. No answer. Voicemail picked up and then dropped call- unable to leave message. Sent [employer] message. [facility] Work Phone: 1(870) 886-735104-21-2025 Miscellaneous Notes* Telephone Encounter - Kasie Escobar RN - 06/27/2024 10:53 AM EDT Patient needs to hold eliquis 3 days prior to surgery Thanks [place] Attempted to call patient. No answer. Voicemail picked up and then dropped call- unable to leave message. Sent MyChart message. * Telephone Encounter - Yobani Valle - 06/27/2024 10:17 AM EDT Patient is scheduled for surgery on this coming up . She was placed on 2 new medications byher industrial laborer. She is not sure if she should hold these or continue on them. She would like a call back. She can be reached at [phone]. Yobani Carter documented in this encounterProtestant Hospital04-21-2025 Telephone encounter Note * Telephone Encounter - Yobani Valle - 06/27/2024 10:17 AM EDT Patient is scheduled for surgery on this up . [facility] She is not sure if she should hold these or continue on them. She would like a call back. She can be reached at [phone]. Yobani Carter [facility]04-17-2025 History of Present illness Narrative* Bobby Denis CNMT - 06/23/2024 8:00 AM EDT RADIOLOGY SERVICE [...] PATIENT PRESENTS WITH AN IMPLANTABLE OR ATTACHED MEDICAL CHEMIST: No CREATININE: Creatinine Date Value Ref Range [...] POST EXAM PIV STATUS: Discontinued PROCEDURE TYPE: [place] Stress: 13.4 mCi Eq82d-Vkjyoll was administered IV for Rest Imaging at 8:11 by . 35.8 mCi Xa90b-Kqkdvgr was administered IV for Stress Imaging at 9:00 by mm. PATIENT DISCHARGED TO: Ambulatory patient, left [place] department area. Is this a therapy: No A Diagnostic radioactive procedure has taken place, with no further precautions necessary other than routine body substance precautions. More information regarding radiation safety can be found usingthis link: [email or web address]%20Nuclear%20Medicine%[email or web address].[email or web address] SIGNATURE: BESSY Rm PATIENT NAME: Azalea Mott DATE: June 23, 2024 TIME: 9:19 AM PAGER/CONTACT #: documented in this encounterProtestant Hospital04-17-2025 NoteHNO ID: [id number] Author: BOBBY DENIS CNMT Service: Radiology Author Type: Technologist Type: [...] PATIENT PRESENTS WITH AN IMPLANTABLE OR ATTACHED MEDICAL CHEMIST: No CREATININE: Creatinine Date Value Ref Range [...] Discontinued PROCEDURE TYPE: NM Stress: 13.4 mCi Gn22g-Pjpphpi was administered IV for Rest Imaging at 8:11 by mc. 35.8 mCi Sz88j-Rvtllkx was administered IV for Stress Imaging at 9:00 by mm. PATIENT DISCHARGED TO: Ambulatory patient, left [place] department area. Is this a therapy: No A Diagnostic radioactive procedure has taken place, with no further precautions necessary other than routine body substance precautions. More information regarding radiation safety can be found using this link: [email or web address] 20Diagnostic%20Nuclear%20Medicine%20Procedures.pdf SIGNATURE: BESSY Rm PATIENT NAME: Azalea Mott DATE: June 23, 2024 TIME: 9:19 AM PAGER/CONTACT #:[facility] [id number] Telephone encounter Note * Telephone Encounter - Hayley Javier RN - 06/22/2024 12:38 PM EDT Spoke to pt regarding reminder and instructions for stress test tomorrow. This included where to check in, length of test and no caffeine for 24 hours prior to test. [facility]04-16-2025 Miscellaneous Notes* Telephone Encounter - Hayley Javier RN - 06/22/2024 12:38 PM EDT Spoke to pt regarding reminder and instructions for stress test tomorrow. This included where to check in, length of test and no caffeine for 24 hours prior to test. documented in this encounterProtestant Hospital04-08-2025 Telephone encounter Note * Telephone Encounter - Fiorella Rodirguez RN - 06/14/2024 2:52 PM EDT Informed pt of Dr. Green message below. Pt verbalized understanding. Advised her continue monitoring her BP and HR and to reach out to our office is HR is still elevated. [facility]04-08-2025 Miscellaneous Notes* Telephone Encounter - Fiorella Rodriguez RN - 06/14/2024 2:52 PM EDT Informed pt of Dr. Green message below. Pt verbalized understanding. Advised her continue monitoring her BP and HR and to reach out to our office is HR is still elevated. * Telephone Encounter - Fiorella Rodriguez RN - 06/14/2024 2:43 PM EDT Images from the original note were not included. Please refer to Nurse Triage encounter from 06/14/2024: Taty Green MD to Karlee Stinson RN 06/14/24 1:00 PM Can increase metoprolol to 50 mg once daily which is equivalent to 2 of the 25 mg metoprolol tablets once a day. Metoprolol prescription has been adjusted to 50 mg once daily. documented in this encounterProtestant Hospital04-08-2025 Telephone encounter Note * Telephone Encounter - Fiorella Rodriguez RN - 06/14/2024 2:43 PM EDT Images from the original note were not included. Please refer to Nurse Triage encounter from 06/14/2024: Taty Green MD to Karlee Stinson RN 06/14/24 1:00 PM Can increase metoprolol to 50 mg once daily which is equivalent to 2 of the 25 mg metoprolol tablets once a day. Metoprolol prescription has been adjusted to 50 mg once daily. [facility]04-08-2025 Telephone encounter Note* Telephone Encounter - Karlee Stinson RN - 06/14/2024 11:[address] Green, Patient calls to report last evening HR [...] (HR 63). Thank you, Karlee Stinson RN [facility]04-08-2025 Miscellaneous Notes* Telephone Encounter - Karlee Stinson RN - 06/14/2024 11:[address] Green, Patient calls to report last evening HR [...] Heart rate as she reached out to industrial laborer and had to leave a messageand hasn't heard back yet. Triaged patient with recommendation of see PCP in 4 hours or PCP triage.Patient already seen and referred to cardiology. Patient specifically asking about increasing metoprolol dose d/t increasing HR. Forwarding to ordering provider. Care advice reviewed with patient andred flag symptoms with verbalized understanding. Reason for [...] breathing. Protocols used: Heart Rate and Heartbeat Mnaoooslw-KPRQV-DT documented in this encounterProtestant Hospital04-08-2025 Telephone encounter Note * Telephone Encounter - Karlee Stinson RN - 06/14/2024 11:40 AM EDT Patient calls to ask about Heart rate as she reached out to industrial laborer and had to leave a messageand hasn't heard back yet. Triaged patient with recommendation of see PCP in 4 hours or PCP triage.Patient already seen and referred to cardiology. Patient specifically asking about increasing metoprolol dose d/t increasing HR. Forwarding to ordering provider. Care advice reviewed with patient andred flag symptoms with verbalized understanding. Reason for [...] breathing. Protocols used: Heart Rate and Heartbeat Fksjzzfia-PPCYL-RB [facility]04-03-2025 History of Present illness Narrative* Taty Green MD - 06/09/2024 11:00 AM EDT Images from the original note were not included. [facility] [place] SECTION OF REGIONAL CARDIOLOGY OUTPATIENT VISIT DATE 06/09/2024 OUTPATIENT VISIT TYPE NEW PRIMARY CARE PHYSICIAN: Navdeep Holcomb [address] [place] [address] Patient is being seen at the request [...] FLX DX W/COLLJ SPEC WHEN PFRMD 02/13/2017 EXG-Fbhqh-pyeyai 10 years HYSTEROSCOPY BX W/WO D&C 12/2011 [...] Problems No Family History ALLERGIES Allergen Reactions [place] [Hydrocodone-* Other: See Comments Weird dreams. CURRENT [...] type (HCC) - ICD9: 427.32, ICD10: I48.92 [id number] 3 - We discussed stroke prophylaxis with [...] fibrillation management at her next visit. Taty Green MD, [facility] Non invasive and Sports industrial laborer documented in this encounterProtestant Hospital04-03-2025 NoteHNO ID: [id number] Author: TATY GREEN MD Service: ? Author Type: Physician Type: Progress Notes Filed: 06/24/2024 07:57 Note Text: [facility] [place] SECTION OF REGIONAL CARDIOLOGY OUTPATIENT VISIT DATE 06/09/2024 OUTPATIENT VISIT TYPE NEW PRIMARY CARE PHYSICIAN: Navdeep Holcomb [address] [place] [address] Patient is being seen at the request [...] FLX DX W/COLLJ SPEC WHEN PFRMD 02/13/2017 FQV-Kzcpy-nfhbqf 10 years HYSTEROSCOPY BX W/WO DANDC 12/2011 [...] Problems No Family History ALLERGIES Allergen Reactions [place] [Hydrocodone-* Other: See Comments Weird dreams. CURRENT [...] ASSESSMENT/PLAN: 1. Preop ca (more content not included)...[facility]04-02-2025 Telephone encounter Note* Telephone Encounter - Navdeep Holcomb MD - 06/08/2024 5:26 PM EDT Noted. Preoperative examination is scheduled with Dr. Green tomorrow. [facility]04-02-2025 Miscellaneous Notes* Telephone Encounter - Navdeep Holcomb MD - 06/08/2024 5:26 PM EDT Noted. Preoperative examination is scheduled with Dr. Green tomorrow. * Telephone Encounter - Raquel Ling RN - 06/08/2024 3:03 PM EDT Patient calling in and states she was told by her insurance billing specialist office to notify her PCP that she will be having total hip arthroplasty on 06/30/24. Patient states she has received all pre-op information that she needs and has no questions or concerns for PCP at this time. Raquel Ling RN documented in this encounterProtestant Hospital04-02-2025 Telephone encounter Note * Telephone Encounter - Raquel Ling RN - 06/08/2024 3:03 PM EDT Patient calling in and states she was told by her insurance billing specialist office to notify her PCP that she will be having total hip arthroplasty on 06/30/24. Patient states she has received all pre-op information that she needs and has no questions or concerns for PCP at this time. Raquel Ling RN [facility]04-02-2025 Telephone encounter Note* Telephone Encounter - Pattie Arteaga LSW - 06/08/2024 12:59 PM EDT Images from the original note were not included. ORTHOPAEDIC COORDINATION OF CARE Pre-Op Assessment Discharge Disposition (Planned): Home with Home Health Discharge Transportation: Car [facility] Information: Surgeon: Eligio Bergeron MD Date of surgery: 06/30/2024 Surgery location: [place] TJA clinic location: [place] Date of TJA clinic: 06/07/2024 Appts included in visit: Joint Class, PACC, Social Work, Lab and Imaging Joint being replaced: Right Hip PRIMARY CARE PHYSICIAN: Navdeep Holcomb MD OR Surgery Date: 06/30/2024 TCI Appointment: 06/30/2024 Joint: Jointtype: Hip Side: right Health Insurance: Medicare or MEDICARE SUPPLEMENT GENERIC Primary Contact: Extended Emergency Contact Information Primary Emergency Contact: Uli Mott Address: [address] [place] [id number] Mobile Relation: Spouse Have you had joint [...] min Stress: No Stress Concern Present (06/08/2024) [place] [employer] Occupational [employer] - Occupational Stress Questionnaire Feeling of Stress : Not at all Social Connections: Moderately Integrated (06/08/2024) Social Connection and Isolation Panel [NHANES] Frequency of Communication with Friends and Family: More than three times a week Frequency of Social Gatherings with Friends and Family: More than three times a week Attends Druze Services: More than 4 times per year [...] Year: No Utilities: Not At Risk (06/08/2024) [facility] Utilities Threatened with loss of utilities: No Area Deprivation Index: Medium Risk (06/07/2024) Area Deprivation Index National Score (1-100), lower number is lower risk: 58 State Score (1-10), lower number is lower risk: 4 Data from: https://www.neighborhoodatlas.medicine.[facility]/. Last address used for calculation: [address] Equipment: Do you currently use any [...] patient/family: Yes - [place] [address] [place] Total Joint Arthroplasty (TJA) Surgical Risk Procedure: Not on file Date assessed: Not on file No data to display Patient lives outside of [facility] service area. Patient did not state a preference for any specific [facility] agency at this time, is in agreement with referrals being sent for multiple [facility] agencies near home to determine who could accept. Plan for spouse to provide D/C transport home following surgery. Patient stated she was told by surgeon's office to anticipate spending the night in the hospital following surgery SIGNATURE: CELSO Vila DATE: June 08, 2024 TIME: 12:59 PM [facility]04-02-2025 Miscellaneous Notes* Telephone Encounter - Pattie Arteaga LSW - 06/08/2024 12:59 PM EDT Images from the original note were not included. ORTHOPAEDIC COORDINATION OF CARE Pre-Op Assessment Discharge Disposition (Planned): Home with Home Health Discharge Transportation: Car [facility] Information: Surgeon: Eligio Bergeron MD Date of surgery: 06/30/2024 Surgery location: [place] TJA clinic location: [place] Date of TJA clinic: 06/07/2024 Appts included in visit: Joint Class, PACC, Social Work, Lab and Imaging Joint being replaced: Right Hip PRIMARY CARE PHYSICIAN: Navdeep Holcomb MD OR Surgery Date: 06/30/2024 TCI Appointment: 06/30/2024 Joint: Jointtype: Hip Side: right Health Insurance: Medicare or MEDICARE SUPPLEMENT GENERIC Primary Contact: Extended Emergency Contact Information Primary Emergency Contact: Uli Mott Address: [address] [place], [place] [id number] [place] Relation: Spouse Have you had joint [...] min Stress: No Stress Concern Present (06/08/2024) [place] [employer] Occupational Health - Occupational Stress Questionnaire Feeling of Stress : Not at all Social Connections: Moderately Integrated (06/08/2024) Social Connection and Isolation Panel [NHANES] Frequency of Communication with Friends and Family: More than three times a week Frequency of Social Gatherings with Friends and Family: More than three times a week Attends Druze Services: More than 4 times per year [...] Year: No Utilities: Not At Risk (06/08/2024) [facility] Utilities Threatened with loss of utilities: No Area Deprivation Index: Medium Risk (06/07/2024) Area Deprivation Index National Score (1-100), lower number is lower risk: 58 State Score (1-10), lower number is lower risk: 4 Data from: https://www.neighborhoodatlas.medicine.[facility].edu/. Last address used for calculation: [address] [...] patient/family: Yes - Within [place] [address] [place] Total Joint Arthroplasty (TJA) Surgical Risk Procedure: Not on file Date assessed: Not on file No data to display Patient lives outside of [facility] service area. Patient did not state a preference for any specific [facility] agency at this time, is in agreement with referrals being sent for multiple [facility] agencies near home to determine who could accept. Plan for spouse to provide D/C transport home following surgery. Patient stated she was told by surgeon's office to anticipate spending the night in the hospital following surgery SIGNATURE: CELSO Vila DATE: June 08, 2024 TIME: 12:59 PM documented in this encounterProtestant Hospital04-01-2025 History of Present illness Narrative* Yobani Posadas TECHNOLOGIST - 06/07/2024 3:30 PM EDT Radiology [...] PATIENT PRESENTS WITH AN IMPLANTABLE OR ATTACHED MEDICAL CHEMIST: No RADIOLOGY DEPARTMENT: CT; Exam(s) Completed: RT KVNG HIP PERIPHERAL IV DATA: Not applicable SIGNED BY: TECHNOLOGIST Lyn June 07, 2024 2:11 PM documented in this encounterProtestant Hospital04-01-2025 NoteHNO ID: [id number] Author: YOBANI POSADAS TECHNOLOGIST Service: Radiology Author Type: Technologist Type: [...] PATIENT PRESENTS WITH AN IMPLANTABLE OR ATTACHED MEDICAL CHEMIST: No RADIOLOGY DEPARTMENT: CT; Exam(s) Completed: RT KVNG HIP PERIPHERAL IV DATA: Not applicable SIGNED BY: Yobani Posadas, TECHNOLOGIST June 07, 2024 2:11 PMSt. Charles [id number] History and physical note* Stephon Hoang APRN.CIRCLE BEVELER - 06/07/2024 12:59 PM EDT Images from the original note were not included. [facility] HISTORY AND PHYSICAL EXAMINATION SERVICE DATE: 06/07/2024 SERVICE TIME: 2:22 PM PRIMARY CARE PHYSICIAN: Navdeep Holcomb MD Assessment Patient has the following medical conditions which may affect lyndsey-operative course: SIOBHAN on CPAP Assessment: Compliant on device. Advised to bring day of surgery. Chronic kidney insufficiency, stage 3 (moderate) ([facility]) Assessment: Denies any new or worsening symptoms. [...] to be schedule d with cardiology (Dr. Green) , 06/09. CONSULTS: The following consults have [...] (Right) at the request of Dr. Eligio Bergeron for consultation. My final recommendation will be [...] consultation for a procedure on 06/30/2024 at [facility]. Patient is presenting with right hip pain [...] pain, CHF, congenital heart defect, DVT/PE, recent CA, PTCA, PVD, open heart surgery and valve [...] FLX DX W/COLLJ SPEC WHEN PFRMD 02/13/2017 KEU-Wjdpv-uoqitz 10 years HYSTEROSCOPY BX W/WO D&C 12/2011 [...] No medication comments found. ALLERGIES Allergen Reactions [place] [Hydrocodone-* Other: See Comments Weird dreams. Objective [...] 08/24/2023 5.8 03/05/2021 5.6 10/19/2020 5.4 HBA1C, [place] (%) Date Value 04/10/2007 5.3 No results found for this or any previous visit (from the past 8760 hours). No results found for this or any previous visit (from the past 80844 hours). Instructions Given to Patient: Instructions located in the after visit summary. Patient given verbal and written preop instructions and voices comprehension and compliance. SIGNATURE: Stephon Hoang APRN.CNP PATIENT NAME: Azalea Mott DATE: June 07, 2024 TIME: 12:59 PM PAGER/CONTACT #: [facility]04-01-2025 History and physical note* Stephon Hoang APRN.CNP - 06/07/2024 12:59 PM EDT Images from the original note were not included. [facility]est[facility] HISTORY AND PHYSICAL EXAMINATION SERVICE DATE: 06/07/2024 SERVICE TIME: 2:22 PM PRIMARY CARE PHYSICIAN: Navdeep Holcomb MD Assessment Patient has the following medical [...] to be schedule d with cardiology (Dr. Green) , 06/09. CONSULTS: The following consults have [...] (Right) at the request of Dr. Eligio Bergeron for consultation. My final recommendation will be communicated back to the requesting physician by way of shared medical record or letter. Subjective The patient has the following: COVID-19 Immunization Status Current Care Gaps Covid-19 Vaccine (2023- season) Overdue since 05/22/2024 11/23/2023 Imm Admin: [...] for a procedure on 06/30/2024 at [facility]. Patient is presenting with right hip pain [...] pain, CHF, congenital heart defect, DVT/PE, recent CA, PTCA, PVD, open heart surgery and valve [...] FLX DX W/COLLJ SPEC WHEN PFRMD 02/13/2017 YBR-Nqevj-eluxzp 10 years HYSTEROSCOPY BX W/WO D&C 12/2011 [...] No medication comments found. ALLERGIES Allergen Reactions [place] [Hydrocodone-* Other: See Comments Weird dreams. Objective [...] 08/24/2023 5.8 03/05/2021 5.6 10/19/2020 5.4 HBA1C, [place] (%) Date Value 04/10/2007 5.3 No results found for this or any previous visit (from the past 8760 hours). No results found for this or any previous visit (from the past 13703 hours). Instructions Given to Patient: Instructions located in the after visit summary. Patient given verbal and written preop instructions and voices comprehension and compliance. SIGNATURE: Stephon Hoang APRN.CNP PATIENT NAME: Azalea Mott DATE: June 07, 2024 TIME: 12:59 PM PAGER/CONTACT #: documented in this encounterProtestant Hospital04-01-2025 Instructions* Patient Instructions* Stephon Hoang APRN.CNP - 06/07/2024 12:59 PM EDT Images from the original note were not included. [facility] PATIENT PREOPERATIVE INSTRUCTIONS Eligio Bergeron* has scheduled you for your procedure at this surgery center: [facility]: [phone] -- [address] [place] [address]. Please read below carefully for your personalized [...] surgery If you are currently using a bcpr-ngj-hcys injectable or oral medication for diabetes or [...] Advance Directive, please fax a copy to [phone] or email to for it to be [...] scanned into your chart that day. Stephon Hoang APRN.CNP documented in this encounterProtestant Hospital03-27-2025 Telephone encounter Note * Telephone Encounter - Evaristo Pate PSS - 06/02/2024 6:52 AM EDT TOTAL JOINT COMPLETE CARE PROGRAM PRE-OPERATIVE TEACHING Service Date: 06/02/2024 Service Time: 11:59 AM Date of : 1950 Gender: female Date of Surgery: 06/30/24 Procedure: Right Total Hip Replacement Complete Care Program was discussed with the patient: Fur Comber Identification: Patient identified a childcare attendant to help when discharged to home: Home Environment: Home Layout: Ranch, Entry Steps: 2, with rail, Bedroom Location: 1st floor, Bathroom Location: 1st floor, and walk in shower. Pt owns walker, cane, shower chair, raised toilet seat. Discussed with patient importance of attending joint education class and provided date and times ofclass: YES Arturo SULLIVANA 06/07 Patient received Joint Education Binder: Yes Patient plans discharge home with [facility]. SIGNATURE: ALEX Davalos PATIENT NAME: Azalea Mott DATE: June 02, 2024 TIME: 6:59 AM [facility]03-27-2025 Miscellaneous Notes* Telephone Encounter - Evaristo Pate PSS - 06/02/2024 6:52 AM EDT TOTAL JOINT COMPLETE CARE PROGRAM PRE-OPERATIVE TEACHING Service Date: 06/02/2024 Service Time: 11:59 AM Date of : 1950 Gender: female Date of Surgery: 06/30/24 Procedure: Right Total Hip Replacement Complete Care Program was discussed with the patient: Fur Comber Identification: Patient identified a childcare attendant to help when discharged to home: Home Environment: Home Layout: Ranch, Entry Steps: 2, with rail, Bedroom Location: 1st floor, Bathroom Location: 1st floor, and walk in shower. Pt owns walker, cane, shower chair, raised toilet seat. Discussed with patient importance of attending joint education class and provided date and times ofclass: YES Morris TJA 06/07 Patient received Joint Education Binder: Yes Patient plans discharge home with [facility]. SIGNATURE: ALEX Davalos PATIENT NAME: Azalea Mott DATE: June 02, 2024 TIME: 6:59 AM documented in this encounterProtestant Hospital03-07-2025 Telephone encounter Note * Telephone Encounter [...] will not take the prescription transfer from [facility]. Requesting new prescription form provider. Patient had to switch pharmacy d/t insurance. Karlee Stinson RN May 13, 2024 9:55 AM [facility]03-07-2025 Miscellaneous Notes* Telephone Encounter - Karlee [...] will not take the prescription transfer from [facility]. Requesting new prescription form provider. Patient had to switch pharmacy d/t insurance. Karlee Stinson RN May 13, 2024 9:55 AM documented in this encounterProtestant Hospital03-06-2025 Telephone encounter Note * Telephone Encounter - Luigi Hull LISW - 05/12/2024 10:19 AM EST [facility] called patient to offer participation in [facility]. This patient has agreed to participate in our [facility] Nurse Appt. on (05/31/24) at [facility]. Surgeon: Rubio DOS: 06/30/24 SIGNATURE: REYNALDO Bailey DATE: May 12, 2024 TIME: 10:19 AM [facility] Work Phone: [phone]) 178-571103-06-2025 Miscellaneous Notes* Telephone Encounter - Luigi Hull LISW - 05/12/2024 10:19 AM EST [facility] called patient to offer participation in [facility]. This patient has agreed to participate in our [facility] Nurse Appt. on (05/31/24) at [facility]. Surgeon: Rubio DOS: 06/30/24 SIGNATURE: REYNALDO Bailey DATE: May 12, 2024 TIME: 10:19 AM documented in this encounterProtestant Hospital03-05-2025 History of Present illness Narrative* Pratibha Kurtz Tech - 05/11/2024 11:20 AM EST Radiology [...] PATIENT PRESENTS WITH AN IMPLANTABLE OR ATTACHED MEDICAL CHEMIST: No RADIOLOGY DEPARTMENT: General X-ray: Exam(s) Completed: Spine X-Ray(s): Lumbar LAT sitting, LAT standing PERIPHERAL IV DATA: Not applicable SIGNED BY: Delilah Richards May 11, 2024 10:54 AM documented in this encounterProtestant Hospital03-05-2025 NoteHNO ID: [id number] Author: PRATIBHA KURTZ Tech Service: ? Author Type: Mobile Application Development Lead Type: Progress Notes Filed: 05/11/2024 10:55 Note [...] PATIENT PRESENTS WITH AN IMPLANTABLE OR ATTACHED MEDICAL CHEMIST: No RADIOLOGY DEPARTMENT: General X-ray: Exam(s) Completed: Spine X-Ray(s): Lumbar LAT sitting, LAT standing PERIPHERAL IV DATA: Not applicable SIGNED BY: Pratibha Delilah Kurtz May 11, 2024 10:54 AMSt. Charles [id number] History of Present illness Narrative* Eligio Bergeron MD - 05/11/2024 10:40 AM EST Images from the original note were not included. CONSULT ORTHOPAEDIC: HIP PRIMARY CARE PHYSICIAN: Navdeep Holcomb MD REFERRING PROVIDER: Bryan Franks[address] [facility] [address] ASSESSMENT & PLAN This is a 74-year-old [...] Evaluation. The surgery will be scheduled for [facility]. Surgery: R Kvng Posterior SYLVESTER DVT ppx: ASA Abx: Ancef TXA: IV Eligio Bergeron MD Impression: Right Hip Severe Degenerative Osteoarthritis, Primary Diagnoses: No diagnosis found. Based upon the evaluation today and after discussions with Azalea L Azalea Mott has significant, worsening pain at [...] below. Surgery Details Date and Location: At [place] . Implants: [place] Robotic: Yes The risks and benefits of [...] including metal or ceramic with cross-linked polyethylene, rwsbbfo-hl-ixjbiwi and zrftc-vg-yvdlv as well as advantages and disadvantages of [...] FLX DX W/COLLJ SPEC WHEN PFRMD 02/13/2017 RRV-Wqgle-wishqb 10 years HYSTEROSCOPY BX W/WO D&C 12/2011 [...] Alcohol use: No Drug use: No ALLERGIES: Lancaster [Hydrocodone-Acetaminophen] MEDICATIONS: atorvastatin (LIPITOR) 10 mg tablet [...] on the plan of care. SIGNATURE: Eligio Bergeron MD PATIENT NAME: Azalea Mott DATE: May 11, 2024 TIME: 7:25 AM I spent a total of approximately 65 minutes on the date of the service which included preparing to see the patient, euyq-oy-ggnr patient care, completing clinical documentation, obtaining and/or reviewing separately obtained history, performing a medically appropriate examination, counseling and educating the patient/family/caregiver, ordering medications, tests, or procedures, communicating withother HCPs (not separately reported), independently interpreting results (not separately reported),communicating results to the patient/family/caregiver, and care coordination (not separately reported). documented in this encounterProtestant Hospital03-05-2025 Instructions* Patient Instructions* Eligio Bergeron MD - 05/11/2024 10:40 AM EST Instructions [...] within the next three days atthe nearest [facility] lab. If you would like, you [...] us: If you are having surgery at [facility] or If you are having surgery at [place], [facility], [facility], or [facility] documented in this encounterProtestant Hospital03-05-2025 NoteHNO ID: [id number] Author: ELIGIO BERGERON MD Service: ? Author Type: Physician Type: Progress Notes Filed: 05/11/2024 10:41 Note Text: CONSULT ORTHOPAEDIC: HIP PRIMARY CARE PHYSICIAN: Navdeep Holcomb MD REFERRING PROVIDER: Bryan Linda [address] [facility] [address] ASSESSMENT AND PLAN This is a 74-year-old [...] Evaluation. The surgery will be scheduled for [facility]. Surgery: R Kvng Posterior SYLVESTER DVT ppx: ASA Abx: Ancef TXA: IV Eligio Bergeron MD Impression: Right Hip Severe Degenerative Osteoarthritis, [...] below. Surgery Details Date and Location: At [place] . Implants: [place] Robotic: Yes The risks and benefits of [...] including metal or ceramic with cross-linked polyethylene, gdvgsnb-sq-kpcfspw and erxbg-gl-razlc as well as advantages and disadvantages of [...] PHQ-9 5-14 Normal: PHQ-9 (more content not included)...[facility]02-14-2025 NoteHNO ID: [id number] Author: BRYAN LINDA, DO Service: ? Author Type: Physician Type: Progress Notes Filed: 04/22/2024 11:25 Note Text: SERVICE DATE: April 22, 2024 PCP: Navdeep Holcomb MD Subjective Patient ID: Azalea is a [...] FLX DX W/COLLJ SPEC WHEN PFRMD 02/13/2017 VLC-Ijeds-dihcmm 10 years HYSTEROSCOPY BX W/WO DANDC 12/2011 [...] No Drug use: No ALLERGIES Allergen Reactions [place] [Hydrocodone-* Other: See Comments Weird dreams. MEDICATIONS: [...] lower extremity edema. N (more content not included)...[facility]02-14-2025 History of Present illness Narrative* Bryan Linda V, DO - 04/22/2024 11:19 AM EST Images from the original note were not included. SERVICE DATE: April 22, 2024 PCP: Navdeep Holcomb MD Subjective Patient ID: Azalea is a [...] FLX DX W/COLLJ SPEC WHEN PFRMD 02/13/2017 CNR-Pibfa-ciktcn 10 years HYSTEROSCOPY BX W/WO D&C 12/2011 [...] No Drug use: No ALLERGIES Allergen Reactions [place] [Hydrocodone-* Other: See Comments Weird dreams. MEDICATIONS: [...] pain starts back up. documented in this encounterProtestant Hospital02-14-2025 NoteHNO ID: [id number] Author: WANDA MEADOWS MA Service: ? Author Type: Automotive Mechanic Type: Progress Notes Filed: 04/22/2024 11:25 Note [...] take more when the pain starts back up.[facility]02-06-2025 NoteHNO ID: [id number] Author: PEGGY PHILLIPS PT Service: ? Author [...] Goals for Episode of Care: established 03/14/24 [place] in home exercise program. Met Patient will [...] Session Stop Time : 1214 Peggy Phillips [facility]02-06-2025 History of Present illness Narrative* [...] Goals for Episode of Care: established 03/14/24 [place] in home exercise program. Met Patient will [...] 1214 Peggy Phillips PT documented in this encounterProtestant Hospital01-27-2025 NoteHNO ID: [id number] Author: PEGGY PHILLIPS PT Service: ? Author [...] 1444 Session Stop Time : 1524 CHEVY Fernandez, [facility]01-27-2025 History of Present illness Narrative* [...] 1524 CHEVY Fernandez PT documented in this encounterProtestant Hospital01-27-2025 Telephone encounter Note * Telephone Encounter - Neeta Foster LPN - 04/04/2024 12:49 PM EST Patient notified of below recommendation, pharmacy has already contact the Patient that Macrobid RXis ready for pickup. Neeta Foster LPN [facility]01-27-2025 Miscellaneous Notes* Telephone Encounter - Neeta Foster LPN - 04/04/2024 12:49 PM EST Patient notified of below recommendation, pharmacy has already contact the Patient that Macrobid RXis ready for pickup. Neeta Foster LPN * Telephone Encounter - Neeta Foster LPN - 04/04/2024 12:47 PM EST ----- Message from Navdeep Holcomb MD sent at 04/04/2024 8:38 AM EST ----- Result reviewed. Start nitrofurantoin 100 mg twice daily x 7 days for urinary tract infection. documented in this encounterProtestant Hospital01-27-2025 Telephone encounter Note * Telephone Encounter - Neeta Foster LPN - 04/04/2024 12:47 PM EST ----- Message from Navdeep Holcomb MD sent at 04/04/2024 8:38 AM EST ----- Result reviewed. Start nitrofurantoin 100 mg twice daily x 7 days for urinary tract infection. [facility]01-23-2025 NoteHNO ID: [id number] Author: NAVDEEP HOLCOMB MD Service: ? Author Type: Physician Type: Progress Notes Filed: 03/31/2024 18:28 Note Text: This note was created using Know[employer]. Subjective Patient presents with: Same Day Appointment: possible UTI x 1 day, burning and frequency and blood Azaleapanda Mott is a 74 year old female [...] URINE (POC) - BACTERIAL CULTURE, URINE Navdeep Holcomb [facility]01-23-2025 History of Present illness Narrative* Navdeep Holcomb MD - 03/31/2024 6:15 PM EST This [...] URINE (POC) - BACTERIAL CULTURE, URINE Navdeep Holcomb MD documented in this encounterProtestant Hospital01-20-2025 NoteHNO ID: [id number] Author: PEGGY PHILLIPS PT Service: ? Author [...] Time : 1530 Peggy Phillips, [facility]01-20-2025 History of Present illness Narrative* Peggy Phillips, PT - 03/28/2024 3:48 PM EST Episode Visit Count: 3 Therapist That Will Accept/Oversee The Plan Of Care: Peggy Phillips Start of Care Date: 03/14/24 Onset Date: 01/08/24 Plan of Care Certification Date: 03/14/24 Next Certification Due Date: 05/12/24 [facility]AB[facility] SPORTS THERAPY PHYSICAL THERAPY TREATMENT NOTE ASSESSMENT: Azalea Vanesa Mott tolerated the session with decreased symptoms. [...] Phillips PT - 03/28/2024 3:21 PM EST Program_ID:[id number] Access Code: [email or web address] URL: [email or web address] Date: 03-28-2024 Prepared By: Peggy Phillips Program [...] sets - 10 reps documented in this encounterProtestant Hospital01-13-2025 History of Present illness Narrative* Sravani Felix PTA - 03/21/2024 3:18 PM EST Program_ID:[id number] Access Code: [email or web address] URL: [email or web address] Date: 03-21-2024 Prepared By: Peggy Phillips Program [...] - 1 sets - 3 reps * Alan Peggy, PT - 03/21/2024 2:46 PM EST Episode [...] 1528 CHEVY Fernandez PT documented in this encounterProtestant Hospital01-13-2025 NoteHNO ID: [id number] Author: PEGGY PHILLIPS PT Service: ? Author [...] Stop Time : 1528 Sravani Felix, CHEVY Phillips, [facility]01-09-2025 Telephone encounter Note* Telephone Encounter [...] Browne LPN March 17, 2024 9:56 AM [facility]01-09-2025 Miscellaneous Notes* Telephone Encounter - Yen Browne [...] 17, 2024 9:56 AM documented in this encounterProtestant Hospital01-07-2025 Telephone encounter Note * Telephone Encounter - Bettie Thayer - 03/15/2024 10:49 AM EST Pt stated her prescription was sent to [facility]. She asked to have this switched to [facility]. Please advise. Thank you [facility]01-07-2025 Miscellaneous Notes* Telephone Encounter - Bettie Thayer - 03/15/2024 10:49 AM EST Pt stated her prescription was sent to [facility]. She asked to have this switched to [facility]. Please advise. Thank you documented in this encounterProtestant Hospital01-06-2025 Telephone encounter Note * Telephone Encounter - Wanda Meadows MA - 03/14/2024 4:14 PM EST Sorry, started under Dr. Fulton by accident. Dr. Linda patient. [facility]01-06-2025 Miscellaneous Notes* Telephone Encounter - Wanda Meadows MA - 03/14/2024 4:14 PM EST Aye, started under Dr. Fulton by accident. Dr. Linda patient. documented in this encounterProtestant Hospital01-06-2025 NoteHNO ID: [id number] Author: PEGGY PHILLIPS PT Service: ? Author [...] Goals for Episode of Care: established 03/14/24 [place] in home exercise program. Patient will decrease [...] Planned: 8 Planned Treatment Interventions: Therapeutic exercise (77118), Neuromuscular re-education (46188), Manual therapy (47078), Therapeutic activities (05561), Self-usp management (05424), Gait Training (74089), Patient/Family/Caregiver Education, Body Mechanics Training PLAN FOR [...] home exercise p (more content not included)... [facility]01-06-2025 History of Present illness Narrative* Peggy Phillips, [...] Goals for Episode of Care: established 03/14/24 [place] in home exercise program. Patient will decrease [...] Planned: 8 Planned Treatment Interventions: Therapeutic exercise (74454), Neuromuscular re- education (15745), Manual therapy (29576), Therapeutic activities (74232), Self- usp management (04067), Gait Training (76782), Patient/Family/Caregiver Education, Body Mechanics Training PLAN FOR [...] Phillips PT - 03/14/2024 12:07 PM EST Program_ID:[id number] Access Code: [email or web address] URL: [email or web address] Date: 03-14-2024 Prepared By: Peggy Phillips Program [...] sets - 10 reps documented in this encounterProtestant Hospital12-16-2024 History of Present illness Narrative* Zofia [...] PATIENT PRESENTS WITH AN IMPLANTABLE OR ATTACHED MEDICAL CHEMIST: No RADIOLOGY DEPARTMENT: Mammography PERIPHERAL IV DATA: Not applicable SIGNED BY: Troy Jimenes February 22, 2024 11:39 AM documented in this encounterProtestant Hospital12-16-2024 NoteHNO ID: [id number] Author: ZOFIA WEBER Mammo Tech Service: ? Author Type: Mobile Application Development Lead Type: Progress Notes Filed: 02/22/2024 11:39 Note [...] PATIENT PRESENTS WITH AN IMPLANTABLE OR ATTACHED MEDICAL CHEMIST: No RADIOLOGY DEPARTMENT: Mammography PERIPHERAL IV DATA: Not applicable SIGNED BY: Troy Jimenes February 22, 2024 11:39 [facility]12-11-2024 NoteHNO ID: [id number] Author: BRYAN LINDA, DO Service: ? Author Type: Physician Type: Progress Notes Filed: 02/17/2024 14:13 Note Text: SERVICE DATE: February 17, 2024 PCP: Navdeep Holcomb MD Subjective Patient ID: Azalea is a [...] FLX DX W/COLLJ SPEC WHEN PFRMD 02/13/2017 LMK-Ccxol-beodlz 10 years HYSTEROSCOPY BX W/WO DANDC 12/2011 [...] No Drug use: No ALLERGIES Allergen Reactions [place] [Hydrocodone-* Other: See Comments Weird dreams. MEDICATIONS: [...] Assessment/Plan ASSESSMENT Diagnosis (M (more content not included)...[facility]12-11-2024 History of Present illness Narrative* Alexei Bryan, V, DO - 02/17/2024 2:11 PM EST SERVICE DATE: February 17, 2024 PCP: Navdeep Holcomb MD Subjective Patient ID: Azalea is a [...] FLX DX W/COLLJ SPEC WHEN PFRMD 02/13/2017 DUE-Ahytc-ofndpv 10 years HYSTEROSCOPY BX W/WO D&C 12/2011 [...] No Drug use: No ALLERGIES Allergen Reactions [place] [Hydrocodone-* Other: See Comments Weird dreams. MEDICATIONS: [...] one step at time. Referred by Mary Boston. X-rays done on 01/27/24. documented in this encounterProtestant Hospital12-11-2024 NoteHNO ID: [id number] Author: BUFFY COUCH MA Service: ? Author Type: Automotive Mechanic Type: Progress Notes Filed: 02/17/2024 14:13 Note Text: Patient presents with: OA right hip AMB ROOMING INTAKE FLOWSHEET DATA Patient denies any pain today. States it is getting harder to getting out of the car and a chair. Going up and down steps one step at time. Referred by Mary Boston. X-rays done on 01/27/24.[facility]11-20-2024 History of Present illness Narrative* Beau Alexandre RT(R) - 01/27/2024 11:40 AM EST Radiology Service [...] PATIENT PRESENTS WITH AN IMPLANTABLE OR ATTACHED MEDICAL CHEMIST: No RADIOLOGY DEPARTMENT: General X-ray: Exam(s) Completed: Pelvis X-Ray: Pelvis with Hip Right PERIPHERAL IV DATA: Not applicable SIGNED BY: RT Anselmo(Magdy) January 27, 2024 11:35 AM documented in this encounterProtestant Hospital11-20-2024 NoteHNO ID: [id number] Author: BEAU ALEXANDRE RT(R) Service: ? Author Type: Mobile Application Development Lead Type: Progress Notes Filed: 01/27/2024 11:48 Note [...] PATIENT PRESENTS WITH AN IMPLANTABLE OR ATTACHED MEDICAL CHEMIST: No RADIOLOGY DEPARTMENT: General X-ray: Exam(s) Completed: Pelvis X-Ray: Pelvis with Hip Right PERIPHERAL IV DATA: Not applicable SIGNED BY: RT Anselmo(R) January 27, 2024 11:35 [facility]11-20-2024 Instructions* Patient Instructions* Mary Boston, KASIA.CIRCLE BEVELER - 01/27/2024 11:13 AM EST Screening schedule [...] review all the medicines you take, even usjj-dbb-ctkylto medicines. As you get older, the way [...] have certain medical conditions. documented in this encounterProtestant Hospital11-20-2024 NoteHNO ID: [id number] Author: MARY BOSTON APRN.CNP Service: ? Author Type: Nurse Practitioner [...] Current care team: Patient Care Team: Navdeep Holcomb MD as PCP - General (Internal Medicine) [...] E78.5 - Worsening c (more content not included)...[facility]11-20-2024 History of Present illness Narrative* Mary Boston, 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 - 01/27/2024 11:11 AM EST Images from [...] Current care team: Patient Care Team: Navdeep Holcomb MD as PCP - General (Internal Medicine) [...] V79.0, ICD10: Z13.31 - DEPRESSION SCREENING Mary Boston APRN.KYAW documented in this encounterProtestant Hospital11-05-2024 Instructions* Patient Instructions* Dilcia Rojas RN [...] or concerns, please contact the office at [phone] EXT [phone] or [phone]. For emergencies after 4:30 please call [phone] and ask for the surgical dermatology fellow design consultant. documented in this encounterProtestant Hospital11-05-2024 NoteHNO ID: [id number] Author: BETHANY HODGES MD Service: ? Author [...] patient, understanding verbalized. OK to release to [facility] 2. Seborrheic Keratoses Reassurance on benign nature [...] clinical/operative note independently gathered by the clinical academic support assistant and Resident and the remaining scribed note accurately describes my personal service to the patient. Bethany Hodges [facility]11-05-2024 History of Present illness Narrative* Bethany Hodges [...] patient, understanding verbalized. OK to release to [facility] 2. Seborrheic Keratoses Reassurance on benign nature [...] clinical/operative note independently gathered by the clinical academic support assistant and Resident and theremaining scribed note accurately describes my personal service to the patient. Bethany Hodges MD documented in this encounterProtestant Hospital06-26-2024 Telephone encounter Note * Telephone Encounter - Neeta Foster LPN - 09/02/2023 3:32 PM EDT Order faxed to [facility]. Neeta Foster LPN [facility]06-26-2024 Miscellaneous Notes* Telephone Encounter - Neeta Foster LPN - 09/02/2023 3:32 PM EDT Order faxed to [facility]. Neeta Foster LPN * Telephone Encounter - Yen Browne LPN - 09/02/2023 11:51 AM EDT Patient calling, needs order for CPAP supplies sent to [facility]. Please advise. documented in this encounterProtestant Hospital06-26-2024 Telephone encounter Note * Telephone Encounter - Yen Browne LPN - 09/02/2023 11:51 AM EDT Patient calling, needs order for CPAP supplies sent to [facility]. Please advise. [facility]06-26-2024 History of Present illness Narrative* Navdeep Holcomb MD - 09/02/2023 10:43 AM EDT This note was created using KnowReriter. Subjective Azalea Mott is a 73 year [...] METABOLIC PANEL - LIPID PANEL BASIC Navdeep Holcomb MD documented in this encounterProtestant Hospital06-18-2024 History of Present illness Narrative* Navdeep Holcomb MD - 08/25/2023 10:19 AM EDT This note was created using [employer]. Subjective Azalea Mott is a 73 year [...] Counseled on avoiding NSAIDs, adequate hydration Navdeep Holcomb MD documented in this encounterProtestant Hospital06-14-2024 Telephone encounter Note * Telephone Encounter - Walt Robertson MD - 08/21/2023 5:07 PM EDT Agree with recommendations. Encourage patient to eat lower sodium diet and keep legs elevation. Discuss adding on additional labs depending on symptoms on 08/23. [facility] Work Phone: [phone]) 508-697106-14-2024 Miscellaneous Notes* Telephone Encounter - Walt Robertson [...] so have been eating more hamburgers and slovenian fries, so could be increased sodium. 8. MEDICAL HISTORY: Denies any history of blood clots, cancer, heart failure, kidney disease, or liver failure. 9. RECURRENT SYMPTOM: Denies leg swelling before. 10. OTHER SYMPTOMS: Pt denies chest pain, difficulty breathing. States she had bronchitis a couple weeks ago, states she feels much better from that. 11. : Postmenopausal. Protocols used: Leg Swelling and [id number] documented [facility] Tele[facility] encounter Note * Telephone Encounter [...] so have been eating more hamburgers and slovenian fries, so could be increased sodium. 8. MEDICAL HISTORY: Denies any history of blood clots, cancer, heart failure, kidney disease, or liver failure. 9. RECURRENT SYMPTOM: Denies leg swelling before. 10. OTHER SYMPTOMS: Pt denies chest pain, difficulty breathing. States she had bronchitis a couple weeks ago, states she feels much better from that. 11. : Postmenopausal. Protocols used: Leg Swelling and [id number]-[id number]-EN [facility] Telephone encounter Note* Telephone Encounter - Esther De Leon LPN - 08/17/2023 11:17 AM EDT Pt notified. [facility] Miscellaneous Notes* Telephone Encounter - Esther De Leon LPN - 08/17/2023 11:17 AM EDT Pt notified. * Telephone Encounter - Esther De Leon LPN - 08/17/2023 11:16 AM EDT ----- Message from Navdeep Holcomb MD sent at 08/16/2023 11:02 PM EDT ----- chest X-ray negative. Please inform the patient. documented in this encounterProtest[facility]06-10-2024 Telephone encounter Note * Telephone Encounter - Esther De Leon LPN - 08/17/2023 11:16 AM EDT ----- Message from Navdeep Holcomb MD sent at 08/16/2023 11:02 PM EDT ----- chest X-ray negative. Please inform the patient. [facility] History of Present illness Narrative* [place] RT(R) - 08/12/2023 9:00 AM EDT Radiology Service Progress Note PATIENT NAME: Azalea oMtt DATE OF SERVICE: August 12, 2023 TIME: [...] PATIENT PRESENTS WITH AN IMPLANTABLE OR ATTACHED MEDICAL CHEMIST: No RADIOLOGY DEPARTMENT: General X-ray: Exam(s) Completed: Chest X-Ray PERIPHERAL IV DATA: Not applicable SIGNED BY: RT Tyler(R) August 12, 2023 9:09 AM documented in this encounterProtestant Hospital06-05-2024 History of Present illness Narrative* Navdeep Holcomb MD - 08/12/2023 8:34 AM EDT This [...] patient. - XR CHEST 2V FRONTAL/LAT Navdeep Holcomb MD documented in this encounterProtestant Hospital05-28-2024 Telephone encounter Note * Telephone Encounter - Justina Hernandez LPN - 08/04/2023 7:20 AM EDT Patient notified.Justian Hernandez LPN [facility]28[facility] Miscellaneous Notes* Telephone Encounter - Justina Hernandez LPN - 08/04/2023 7:20 AM EDT Patient notified.Justina Hernandez LPN * Telephone Encounter - Benjamín Jackson APRN.[facility] - 08/04/2023 7:13 AM EDT COVID-19, influenza A, and influenza B PCR test are negative. Continue supportive therapies as discussed during visit. Follow-up with PCP if symptoms are not improving. Benjamín Jackson APRN.CNP documented in this encounterProtestant Hospital05-28-2024 Telephone encounter Note * Telephone Encounter - Benjamín Jackson APRN.CNP - 08/04/2023 7:13 AM EDT COVID-19, influenza A, and influenza B PCR test are negative. Continue supportive therapies as discussed during visit. Follow-up with PCP if symptoms are not improving. Benjamín Jackson APRN.[employer] [facility] Work Phone: [phone]) 870-993805-27-2024 History of Present illness Narrative* Roxanne Mendoza APRN.[facility] - 08/03/2023 9:56 AM EDT This note was created using [employer]. Subjective Azalea Mott is a 73 year [...] FLX DX W/COLLJ SPEC WHEN PFRMD 02/13/2017 [id number]-[id number] 10 years HYSTEROSCOPY BX W/WO D&C 12/2011 endometrial polyp LAPAROSCOPIC CHOLECYSTECTOMY 09/24/2020 LAPS ABD PRTM&OMENTUM DX W/WO SPEC BR/WA SPX Laparoscopy MASTOIDECTOMY,COMPLETE Left 1955 Mastoidectomy, left TONSILLECTOMY PRIMARY/SECONDARY <AGE 13 Tonsillectomy ALLERGIES [place] [Hydrocodone-Acetaminophen] MEDICATIONS lisinopril (ZESTRIL) 20 mg tablet [...] - RX Nithya Fuentes Patient presents on holiday, No xray available Discussed possibility of pneumonia, Can return to be reevaluated and have CXR if symptoms continue to progress over next day or two - COVID & INFLUENZA A/B & RSV NAAT, ROUTINE-obtained and pending 2. Cough X 3 days No red flags Hemodynamically stable Lungs clear Discussed limitations Roxanne Mendoza APRN.CIRCLE BEVELER TEACHING PROVIDER (Physician/PA/CASINO ENFORCEMENT AGENT) NOTE OF PERSONAL INVOLVEMENT IN CARE: I have personally seen and examined the patient and performed the medical decision-making components. I have reviewed the Advanced Practice Registered Nurse (CASINO ENFORCEMENT AGENT) Student's documentation and verified the findings in the note as written. Any additions or changes are noted in bold/italics. Signature: Roxanne Mendoza Date: 08/03/2023 Time: 11:35 AM documented in this encounterProtestant Hospital02-15-2024 History of Present illness Narrative* Navdeep Holcomb MD - 04/23/2023 5:36 PM EST This note was created using [employer]. Subjective Patient presents with: Ear Problem: Feels [...] she denied need to see ENT. Navdeep Holcomb MD documented in this encounterProtestant Hospital12-15-2023 History of Present illness Narrative* Zofia [...] 20, 2023 11:30 AM documented in this encounterProtestant Hospital11-20-2023 History of Present illness Narrative* Mary Arroyo APRN.CIRCLE BEVELER - 01/26/2023 10:01 AM EST Azalea Mott is a 73 year old female here for a Medicare wellness visit. Medicare Health Risk Assessment In general, health is: Good Concerns with tiredness, difficulties with sexual function, balance, teeth/dentures: Not at all [place] anxious, stressed, angry, irritable, lonely, isolated, or [...] Current care team: Patient Care Team: Navdeep Holcomb MD as PCP - General (Internal Medicine) Outside specialists seen: automotive manufacturer- Dr. Mcdonald Medical/Family history review Reviewed and [...] SCREENING Mary Arroyo APRN.CNP documented in this encounterProtestant Hospital11-20-2023 Instructions* Patient Instructions* Mary Arroyo APRN.CNP [...] review all the medicines you take, even ouqp-itl-mejkqdk medicines. As you get older, the way [...] have certain medical conditions. documented in this encounterProtest[facility] Hospital07-27-2023 History of Present illness Narrative* Navdeep Holcomb MD - 10/02/2022 10:21 AM EDT This note was created using [employer]. Subjective Azalea Mott is a 72 year [...] ICD9: 701.1, ICD10: L85.3 Use moisturizers. Navdeep Holcomb MD documented in this encounterProtestant Hospital05-12-2023 Miscellaneous Notes* Telephone Encounter - Raquel [...] needed. Raquel Ling RN documented in this encounterProtestant Hospital12-14-2022 History of Present illness Narrative* Ioana Crawford RT(R) - 02/19/2022 1:30 PM EST Radiology [...] 19, 2022 1:27 PM documented in this encounterProtestant Hospital11-18-2022 History of Present illness Narrative* Mary Arroyo APRN.[facility] - 01/24/2022 1:10 PM EST Azalea Mott is a 72 year old female here for a Medicare Subsequent Annual Wellness Visit Health Risk Assessment In general, health is: Good Concerns with tiredness, difficulties with sexual function, balance, teeth/dentures: Fatigue, doesn't sleep well [place] anxious, stressed, angry, irritable, lonely, isolated, or [...] Current care team: Patient Care Team: Navdeep Holcomb MD as PCP - General (Internal Medicine) Outside specialists seen: Dr. Mcdonald-automotive manufacturer Medical/Family history review Reviewed and updated problem [...] Visual acuity: follows with optometry/ophthalmology Hearing Evaluation: KIANA in the left ear, stable ASSESSMENT/PLAN: 1. [...] SCREENING Mary Arroyo APRN.CNP documented in this encounterProtestant Hospital11-18-2022 Instructions* Patient Instructions* Mary Arroyo APRN.CNP [...] review all the medicines you take, even egua-mrq-fldrkge medicines. As you get older, the way [...] have certain medical conditions. documented in this encounterProtestant Hospital08-19-2022 Miscellaneous Notes* Telephone Encounter - Esther De Leon LPN - 10/25/2021 4:15 PM EDT Last seen pcp 05/24/21. Next appt with pcp 01/22/22. documented in this encounterProtestant Hospital06-09-2022 Miscellaneous Notes* Telephone Encounter - Navdeep Holcomb MD - 08/15/2021 9:37 AM EDT Negative [...] to ill express care. documented in this encounterProtestant Hospital06-08-2022 History of Present illness Narrative* Freeman [...] FLX DX W/COLLJ SPEC WHEN PFRMD 02/13/2017 [id number]-[id number]-alhxyy 10 years HYSTEROSCOPY BX W/WO D&C 12/2011 endometrial polyp LAPAROSCOPIC CHOLECYSTECTOMY 09/24/2020 LAPS ABD PRTM&OMENTUM DX W/WO SPEC BR/WA SPX Laparoscopy MASTOIDECTOMY,COMPLETE as child Mastoidectomy, left TONSILLECTOMY PRIMARY/SECONDARY <AGE 13 Tonsillectomy ALLERGIES [place] [Hydrocodone-Acetaminophen] MEDICATIONS atorvastatin (LIPITOR) 10 mg tablet [...] plan Freeman Martinez APRN.[facility] documented in this encounterProtestant Hospital06-08-2022 Instructions* Patient Instructions* Freeman Martinez APRN.[facility] [...] or concerning to you. documented in this encounterProtestant Hospital06-08-2022 History of Present illness Narrative* Kaitlin [...] 14, 2021 2:22 PM documented in this encounterProtestant Hospital03-18-2022 Instructions* Patient Instructions* Navdeep Holcomb MD - 05/24/2021 12:23 PM EDT Have you ever planned for future healthcare decisions with a power of underliner, living will, or advance directives? Yes. Have you shared those records with your doctor? No documented in this encounterProtestant Hospital03-18-2022 History of Present illness Narrative* Navdeep Holcomb MD - 05/24/2021 11:34 AM EDT This note was created using [employer]. Subjective Azalea Mott is a 71 year [...] ICD10: I49.49 Reviewed. - ECG COMPLETE Navdeep Holcomb MD documented in this encounterProtestant Hospital06-02-2016 History of Past illness Narrative* Problem Noted Date Resolved Date Primary osteoarthritis of right hip 08/09/2015 08/09/2015 Arthritis of right hip 08/09/2015 1 [place] of foot 08/17/2013 03/28/2016 Last Assessment & [...] of this encounter (statuses as of 05/25/2021) [facility] of [facility] illness Narrative* Problem Noted Date Resolved Date Primary osteoarthritis of right hip 08/09/2015 08/09/2015 Arthritis of right hip 08/09/2015 1 [place] of foot 08/17/2013 03/28/2016 Last Assessment & [...] of this encounter (statuses as of 08/14/2021) [facility] illness Narrative* Problem Noted Date Resolved Date Primary osteoarthritis of right hip 08/09/2015 08/09/2015 Arthritis of right hip 08/09/2015 1 [place] of foot 08/17/2013 03/28/2016 Last Assessment & [...] of this encounter (statuses as of 08/15/2021) [facility] Narrative* Problem Noted Date Resolved Date Primary osteoarthritis of right hip 08/09/2015 08/09/2015 Arthritis of right hip 08/09/2015 1 [place] of foot 08/17/2013 03/28/2016 Last Assessment & [...] of this encounter (statuses as of 10/26/2021) [facility] Narrative* Problem Noted Date Resolved Date Primary osteoarthritis of right hip 08/09/2015 08/09/2015 Arthritis of right hip 08/09/2015 1 [place] of foot 08/17/2013 03/28/2016 Last Assessment & [...] of this encounter (statuses as of 01/24/2022) [facility] Narrative* Problem Noted Date Resolved Date Primary osteoarthritis of right hip 08/09/2015 08/09/2015 Arthritis of right hip 08/09/2015 [place] of foot 08/17/2013 03/28/2016 Last Assessment & [...] of this encounter (statuses as of 07/18/2022) [facility] Narrative* Problem Noted Date Diagnosed Date Resolved Date Primary osteoarthritis of right hip 08/09/2015 08/09/2015 Arthritis of right hip 08/09/201510/24 [place] of foot 08/17/2013 03/28/2016 Last Assessment & [...] of this encounter (statuses as of 10/02/2022) [facility] Narrative* Problem Noted Date Diagnosed Date Resolved Date Primary osteoarthritis of right hip 08/09/2015 08/09/2015 Arthritis of right hip 08/09/201510/24 [place] of foot 08/17/2013 03/28/2016 Last Assessment & [...] of this encounter (statuses as of 01/10/2023) [facility] Narrative* Problem Noted Date Diagnosed Date Resolved Date Primary osteoarthritis of right hip 08/09/2015 08/09/2015 Arthritis of right hip 08/09/201510/24 [place] of foot 08/17/2013 03/28/2016 Last Assessment & [...] of this encounter (statuses as of 01/26/2023) [facility] Narrative* Problem Noted Date Diagnosed Date Resolved Date Primary osteoarthritis of right hip 08/09/2015 08/09/2015 Arthritis of right hip 08/09/201510/24 [place] of foot 08/17/2013 03/28/2016 Last Assessment & [...] of this encounter (statuses as of 02/21/2023) [facility] Narrative* Problem Noted Date Diagnosed Date Resolved Date Primary osteoarthritis of right hip 08/09/2015 08/09/2015 Arthritis of right hip 08/09/201510/24 [place] of foot 08/17/2013 03/28/2016 Last Assessment & [...] of this encounter (statuses as of 04/23/2023) [facility]* Diagnosis Hypertension, essential- Primary Unspecified essential hypertension Hyperlipidemia LDL goal <100 Other and unspecified hyperlipidemia SIOBHAN on CPAP Obstructive sleep apnea (adult) (pediatric) Multiple joint pain Pain in joint, multiple sites Premature beats Premature beats, unspecified [facility] encounter [facility]* Diagnosis Sinobronchitis- Primary Unspecified sinusitis (chronic) Rhonchi at both lung bases URI, acute Acute upper respiratory infections of unspecified site [facility] Hypertension, essential Unspecified essential hypertension [facility]* Diagnosis Medicare annual wellness visit, subsequent- Primary Routine general medical examination at a health care facility Encounter for screening mammogram for breast cancer [facility] Diagnosis Hypertension, essential- Primary Unspecified essential hypertension Dry skin Other specified disease of sebaceous glands [facility]* Diagnosis Encounter for screening mammogram for breast cancer [facility]* Diagnosis Medicare annual wellness visit, subsequent- Primary Routine general medical examination at a health care facility Hypercalcemia Encounter for screening mammogram for breast cancer [facility]* Diagnosis Encounter for screening mammogram for breast cancer [facility]* Diagnosis Impacted cerumen of right ear- Primary Impacted cerumen [facility]* Diagnosis URI, acute- Primary Acute upper respiratory infections of unspecified site Acute cough [facility]* Diagnosis Bronchitis with bronchospasm- Primary Bronchitis, not specified as acute or chronic [facility]* Diagnosis Bronchitis with bronchospasm Bronchitis, not specified as acute or chronic [facility]* Diagnosis Venous insufficiency- Primary Unspecified venous (peripheral) insufficiency Hypertension, essential Unspecified essential hypertension Fatigue, unspecified type Chronic kidney insufficiency, stage 3 (moderate) (HCC) [facility]* Diagnosis Hypertension, essential- Primary Unspecified essential hypertension Venous insufficiency Unspecified venous (peripheral) insufficiency Chronic kidney insufficiency, stage 3 (moderate) (HCC) Impaired fasting glucose Hyperlipidemia LDL goal <100 Other and unspecified hyperlipidemia [facility]* Diagnosis SIOBHAN (obstructive sleep apnea) Obstructive sleep apnea (adult) (pediatric) [facility]* Diagnosis Neoplasm of uncertain behavior of skin of back- Primary Neoplasm of uncertain behavior of skin Seborrheic keratosis Other seborrheic keratosis [facility]* Diagnosis Medicare annual wellness visit, subsequent- Primary Routine general medical examination at a health care facility Right hip pain Pain in joint, [...] Screening for depression [facility] Diagnosis Right hip pain Pain in joint, pelvic region and thigh [facility]* Diagnosis Primary osteoarthritis of right hip Primary localized osteoarthrosis, pelvic region and thigh [facility]* Diagnosis Encounter for screening mammogram for breast cancer documented in this encounter [facility]* Diagnosis Primary osteoarthritis of right hip- Primary Primary localized osteoarthrosis, pelvic region and thigh documented in this encounter [facility] note* Diagnosis Primary osteoarthritis of right hip- Primary Primary localized osteoarthrosis, pelvic region and thigh documented in this encounter [facility] note* Diagnosis Dysuria- Primary documented in this encounter [facility] note* Diagnosis Dysuria- Primary documented in this encounter [facility] note* Diagnosis Primary osteoarthritis of right hip- Primary Primary localized osteoarthrosis, pelvic region and thigh documented in this encounter [facility] note* Diagnosis Arthritis of right hip- Primary documented in this encounter [facility] note* Diagnosis Primary osteoarthritis of right hip- Primary Primary localized osteoarthrosis, pelvic region and thigh Preoperative examination Preoperative examination, unspecified Impaired fasting glucose Primary osteoarthritis of right hip Primary localized osteoarthrosis, pelvic region and thigh documented in this encounter [facility] note* Diagnosis Primary osteoarthritis of right hip- Primary Primary localized osteoarthrosis, pelvic region and thigh Primary osteoarthritis of right hip Primary localized osteoarthrosis, pelvic region and thigh documented in this encounter [facility] note* Diagnosis Primary osteoarthritis of right hip Primary localized osteoarthrosis, pelvic region and thigh Primary osteoarthritis of right hip Primary localized osteoarthrosis, pelvic region and thigh documented in this encounter [facility] note* Diagnosis Hypertension, essential Unspecified essential hypertension Venous insufficiency Unspecified venous (peripheral) insufficiency Primary osteoarthritis of right hip Primary localized osteoarthrosis, pelvic region and thigh documented in this encounter [facility] note* Diagnosis Pre-op evaluation- Primary Preoperative examination, [...] * Assessment & Plan Note - Stephon Hoang APRN.CIRCLE BEVELER - 06/07/2024 2:19 PM EDT Associated Problem(s): Obesity, Class I, BMI 30-34.9 Assessment: Body mass index is 34.94 kg/m . * Assessment & Plan Note - Stephon Hoang APRN.CNP - 06/07/2024 1:24 PM EDT Associated Problem(s): Venous insufficiency Assessment: int swelling , elevation helps sometimes. * Assessment & Plan Note - Stephon Hoang APRN.CNP - 06/07/2024 1:23 PM EDT Associated Problem(s): Hyperlipidemia LDL goal <100 Assessment: Compliant on statin therapy. Encouraged lifestyle modifications. Body mass index is 34.94 kg/m . * Assessment & Plan Note - Stephon Hoang APRN.CNP - 06/07/2024 1:23 PM EDT Associated Problem(s): Hypertension, essential Assessment: Stable and compliant with medications. Follows with PCP. Last 3 Encounter BP Readings: Date: BP: 06/07/2024 132/79 03/31/2024 136/72 01/27/2024 124/78 * Assessment & Plan Note - Stephon Hoang APRN.CNP - 06/07/2024 1:01 PM EDT Associated Problem(s): Chronic kidney insufficiency, stage 3 (moderate) (HCC) [...] * Assessment & Plan Note - Stephon Hoang APRN.CNP - 06/07/2024 1:01 PM EDT Associated Problem(s): SIOBHAN on CPAP Assessment: Compliant on device. Advised to bring day of surgery. [facility] Diagnosis Pre-op evaluation- Primary Preoperative [...] region and thigh [facility] Diagnosis Pre-op evaluation- Primary Preoperative examination, [...] region and thigh [facility] Diagnosis Pre-op evaluation- Primary Preoperative examination, [...] region and thigh documented in this encounter [facility] note* Diagnosis Pre-op evaluation- Primary Preoperative examination, [...] region and thigh documented in this encounter [facility] note* Diagnosis Pre-op evaluation- Primary Preoperative examination, [...] by other means documented in this encounter [facility] note* Diagnosis Pre-op evaluation- Primary Preoperative examination, [...] by other means documented in this encounter [facility] note* Diagnosis Pre-op evaluation- Primary Preoperative examination, [...] by other means documented in this encounter [facility] note* Diagnosis Pre-op evaluation- Primary Preoperative examination, [...] venous (peripheral) insufficiency documented in this encounter [facility] note* Diagnosis Pre-op evaluation- Primary Preoperative examination, [...] Swelling of limb [facility] Diagnosis Pre-op evaluation- Primary Preoperative examination, [...] hypertension (HCC) Other chronic pulmonary heart diseases Congestive heart failure, unspecified HF chronicity, unspecified heart failure type (HCC)- Primary Venous insufficiency Unspecified venous (peripheral) insufficiency [facility] Diagnosis Pre-op evaluation- Primary Preoperative examination, [...] hypertension (HCC) Other chronic pulmonary heart diseases Leg swelling- Primary Swelling of limb Status post right hip replacement Hip joint replacement by other means documented in this encounter [facility] note* Diagnosis Pre-op evaluation- Primary Preoperative examination, [...] hypertension (HCC) Other chronic pulmonary heart diseases Atrial fibrillation with RVR ([facility])- Primary Atrial fibrillation Hypertension, essential Unspecified essential hypertension Congestive heart failure, unspecified HF chronicity, unspecified heart failure type (HCC) documented in this encounter [facility] note* Diagnosis Pre-op evaluation- Primary Preoperative examination, [...] hypertension (HCC) Other chronic pulmonary heart diseases Atrial fibrillation with RVR (HCC)- Primary Atrial fibrillation Congestive heart failure, unspecified HF chronicity, unspecified heart failure type (HCC) Hypertension, essential Unspecified essential hypertension [facility] Diagnosis Pre-op evaluation- Primary Preoperative examination, [...] hypertension (HCC) Other chronic pulmonary heart diseases Congestive heart failure, unspecified HF chronicity, unspecified heart failure type (HCC)- Primary Venous insufficiency Unspecified venous (peripheral) insufficiency [facility] Diagnosis Pre-op evaluation- Primary Preoperative examination, [...] replacement Hip joint replacement by other means Pain in prosthetic joint, initial encounter [facility] Diagnosis Pre-op evaluation- Primary Preoperative examination, [...] hypertension (HCC) Other chronic pulmonary heart diseases Atrial fibrillation, unspecified type (HCC)- Primary Congestive heart failure, unspecified HF chronicity, unspecified heart failure type (HCC) Venous insufficiency Unspecified venous (peripheral) insufficiency Chronic kidney insufficiency, stage 3 (moderate) (HCC) documented in this encounter [facility] note* Diagnosis Pre-op evaluation- Primary Preoperative examination, [...] hypertension (HCC) Other chronic pulmonary heart diseases Pain in prosthetic joint, initial encounter Status post hip replacement, right documented in this encounter [facility] note* Diagnosis Pre-op evaluation- Primary Preoperative examination, [...] 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 Keep a daily log of your heart rate and call your industrial laborer tomorrow to schedule a follow-up appointment. If symptoms worsen before you see them come back to the emergency room.[facility] Work Phone: Patient's home Plan of care note* Visit Details [...] Discuss all medications you are taking, even fdta-kma-hsbzuip medicines, with your provider and pharmacist since [...] clean dressing and contact provider and PT disability case manager. Problem:PT Orthopedic Condition Goal:Manage Orthopedic [...] home exercise program. [facility] Visit [...] use and safety and falls prevention and steamfitter supervisor, sock aide, shoe horn, handled sponge and [...] with Indep assistance documented in this encounter [facility]'s home Plan of care note* Visit Details Visit Type -KILN PACKER ROUTINE Discipline -Physical Therapy Problems Problem Description [...] home exercise program. [facility] Visit Details Visit Type -KILN PACKER ROUTINE Discipline -Physical Therapy Problems Problem Description [...] home exercise program. documented in this encounter [facility]'s home Plan of care note* Visit Details Visit Type -PT AGENCY [place] SHAH Discipline -Physical Therapy Problems Problem Description Start [...] and written instructions. [facility] Author Rosalio Mena [facility] Note Date/Time August 11, 2024 11:47 am [facility] [address] [place] [address] OFFICE VISIT Date of Service: 08/11/24 MR#: [id number] Acct: [id number] Name: AZALEA MOTT Rep #: [id number] : 1950 Provider: Dr. Francois Mena MD Age/Sex: 74/F Location: [facility] Status: Signed HPI HPI History of Present [...] NIBP Intake Visit Reasons: AFIB W/RVR S/P Business Analytics Director Required: No Accompanied by: Is patient in [...] Orders: Orders 12 Lead EKG performed by [facility] Today Dr. Rosalio Mena [...] Mena MD> Date _ [facility] Signature: Date (if applicable) CC: Dr. Navdeep Holcomb MD ~ [place] [employer] Work Phone: Reason for referral (narrative)* Outpatient Procedure (Routine) - Authorized Specialty Diagnoses / Procedures Referred By Contac t Referred To Contact [facility] Diagnoses Premature beats Procedures ECG COMPLETE ECG ROUTINE ECG W/LEAST 12 LDS W/I&R Navdeep Holcomb MD [address] [place] [address] [facility] [place] [address] [place] [address] Referral ID Status Reason Start Date Expiration Date Visits Requested Visits Authorized [id number] Authorized Auto-Generat ed Referral 05/24/2021 05/24/2022 1 1 [facility] for referral (narrative)* Diagnostic Procedure Only (Routine) - Authorized Specialty Diagnoses / Procedures Referred By Contac t Referred To Contact [facility] Diagnoses Encounter for screening mammogram for breast cancer Procedures JOEL SCREENING SCREENING MAMMOGRAPHY BI 2-VIEW BREAST INC CAD Mary Arroyo 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 [address] [place] [address] [facility] [address] [place] [address] Referral ID Status Reason Start Date Expiration Date Visits Requested Visits Authorized [id number] Authorized Auto-Generat ed Referral 02/23/2023 1 1 [facility] for referral (narrative)* Diagnostic Procedure Only (Routine) - Closed Specialty Diagnoses / Procedures Referred By Contac t Referred To Contact [facility] Diagnoses Encounter for screening mammogram for breast cancer Procedures JOEL SCREENING SCREENING MAMMOGRAPHY BI 2-VIEW BREAST INC CAD OlderEmberz, 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 [address] [place] [address] [facility] [address] [place] [address] Referral ID Status Reason Start Date Expiration Date V isits Requested Visits Authorized [id number] Closed Auto-Generate d Referral 01/24/2022 02/23/2023 1 1 [facility] Diagnostic Procedure Only (Routine) - Pending Review Specialty Diagnoses / Procedures Referred By Sandy rai Referred To Contact [facility] Diagnoses Encounter for screening mammogram for breast cancer Procedures JOEL SCREENING SCREENING MAMMOGRAPHY BI 2-VIEW BREAST INC [facility], KASIA.CIRCLE BEVELER [address] [place] [address] [facility] [address] [place] [address] Referral ID Status Reason Start Date Expiration Date Visits Requested Visits Authorized [id number] Pending Review Auto-Generat ed Referral 02/25/2024 1 1 [facility] Diagnostic Procedure Only (Routine) - Closed Specialty Diagnoses / Procedures Referred By Sandy rai Referred To Contact XR IMAGING Diagnoses Right hip pain Procedures XR HIP GENERAL 3V PELV/AP/LAT RIGHT RADEX HIP UNILATERAL WITH PELVIS 2-3 VIEWS Mary Bsoton 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 [address] [place] [address] [place] [address] Referral ID Status Reason Start Date Expiration Date V isits Requested Visits Authorized [id number] Closed Auto-Generate d Referral 01/27/2024 02/25/2025 1 1 * Diagnostic Procedure Only (Routine) - Authorized Specialty Diagnoses / Procedures Referred By Sandy rai Referred To Contact [facility] Diagnoses Encounter for screening mammogram for breast cancer Procedures JOEL SCREENING W DAILLO SCREENING DIGITAL BREAST TOMOSYNTHESIS BI SCREENING MAMMOGRAPHY BI 2-VIEW BREAST INC CAD Mary Boston 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 [address] [place] [address] [facility] [address] [place] [address] Referral ID Status Reason Start Date Expiration Date Visits Requested Visits Authorized [id number] Authorized Auto-Generat ed Referral 02/25/2025 1 1 [facility] for visit Narrative* Diagnostic Procedure Only (Routine) - Closed Specialty Diagnoses / Procedures Referred By Contac t Referred To Contact [facility] Diagnoses Encounter for screening mammogram for breast cancer Procedures JOEL SCREENING SCREENING MAMMOGRAPHY BI 2-VIEW BREAST INC CAD Mary Arroyo 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 [address] [place] [address] [facility] [address] [place] [address] Referral ID Status Reason Start Date Expiration Date V isits Requested Visits Authorized [id number] Closed Auto-Generate d Referral 01/24/2022 02/23/2023 1 1 [facility] for visit Narrative* Diagnostic Procedure Only (Routine) - Closed Specialty Diagnoses / Procedures Referred By Contac t Referred To Contact [facility] Diagnoses Encounter for screening mammogram for breast cancer Procedures JOEL SCREENING SCREENING MAMMOGRAPHY BI 2-VIEW BREAST INC CAD Mary Boston, 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 [address] [place] [address] [facility] [address] [place] [address] Referral ID Status Reason Start Date Expiration Date V isits Requested Visits Authorized [id number] Closed Auto-Generate d Referral 01/26/2023 02/25/2024 1 1 [facility] for visit Narrative* Diagnostic Procedure Only (Routine) - Closed Specialty Diagnoses / Procedures Referred By Contac t Referred To Contact XR IMAGING Diagnoses Right hip pain Procedures XR HIP GENERAL 3V PELV/AP/LAT RIGHT RADEX HIP UNILATERAL WITH PELVIS 2-3 VIEWS Mary Boston, 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 [address] [place] [address] [place] [address] Referral ID Status Reason Start Date Expiration Date V isits Requested Visits Authorized [id number] Closed Auto-Generate d Referral 01/27/2024 02/25/2025 1 1 [facility] for visit Narrative* Diagnostic Procedure Only (Routine) - Closed Specialty Diagnoses / Procedures Referred By Contac t Referred To Contact [facility] Diagnoses Encounter for screening mammogram for breast cancer Procedures JOEL SCREENING W DIALLO SCREENING DIGITAL BREAST TOMOSYNTHESIS BI SCREENING MAMMOGRAPHY BI 2-VIEW BREAST INC CAD Mary Boston, 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 [address] [place] [address] [facility] [address] [place] [address] Referral ID Status Reason Start Date Expiration Date V isits Requested Visits Authorized [id number] Closed Auto-Generate d Referral 01/27/2024 02/25/2025 1 1 [facility] for visit Narrative* Diagnostic Procedure Only (Routine) - Closed Specialty Diagnoses / Procedures Referred By Contac t Referred To Contact XR IMAGING Diagnoses Primary osteoarthritis of right hip Procedures XR LUMBAR SPECIFY 1V RADEX SPINE 1 VIEW SPECIFY LEVEL Eligio Bergeron MD [address] [place] [address] Phone: tel: fax: [place] [address] Referral ID Status Reason Start Date Expiration Date V isits Requested Visits Authorized [id number] Closed Auto-Generate d Referral 05/11/2024 06/10/2025 1 1 [facility] for visit Narrative* Diagnostic Procedure Only (Routine) - Closed Specialty Diagnoses / Procedures Referred By Contact Referred To Contact [facility] Diagnoses Atrial flutter, unspecified type (HCC) Abnormal electrocardiogram (ECG) (EKG) Procedures NM CARDIAC PERF STRESS/PHARM MYOCARDIAL SPECT MULTIPLE STUDIES Taty Green MD [address] [place] [address] Phone: tel:[phone] fax:[phone] [facility] [address] [place] [address] Phone: tel:[phone] Referral ID Status Reason Start Date Expiration Date V isits Requested Visits Authorized [id number] Closed Auto-Generate d Referral 06/09/2024 07/09/2025 1 1 [facility] for visit Narrative* Outpatient Procedure (Routine) - Closed Specialty Diagnoses / Procedures Referred By Contac t Referred To Contact [facility] Diagnoses Atrial flutter, unspecified type (HCC) Paroxysmal A-fib (HCC) Procedures ECHO ECHO TTHRC R-T 2D W/WOM-MODE COMPL SPEC&COLR D Taty Green MD [address] [place] [address] Phone: tel: fax: [facility] [place] [address] [place] [address] Referral ID Status Reason Start Date Expiration Date V isits Requested Visits Authorized [id number] Closed Auto-Generate d Referral 06/09/2024 06/09/2025 1 1 [facility] for visit Narrative* Diagnostic Procedure Only (Routine) - Closed Specialty Diagnoses / Procedures Referred By Contac t Referred To Contact XR IMAGING Diagnoses Status post right hip replacement Procedures XR HIP GENERAL 3V PELV/AP/LAT RIGHT RADEX HIP UNILATERAL WITH PELVIS 2-3 VIEWS Eligio Bergeron MD [address] [place] [address] Phone: tel: fax: [place] [address] Referral ID Status Reason Start Date Expiration Date V isits Requested Visits Authorized [id number] Closed Auto-Generate d Referral 07/11/2024 08/10/2025 1 1 [facility] for visit Narrative* Diagnostic Procedure Only (Routine) - Closed Specialty Diagnoses / Procedures Referred By Contac t Referred To Contact XR IMAGING Diagnoses Status post right hip replacement Pain in prosthetic joint, initial encounter Procedures XR HIP GENERAL 3V PELV/AP/LAT RIGHT RADEX HIP UNILATERAL WITH PELVIS 2-3 VIEWS Jamal Larios PA-C [address] [address] Phone: tel: fax: [place] [address] Referral ID Status Reason Start Date Expiration Date V isits Requested Visits Authorized [id number] Closed Auto-Generate d Referral 10/14/2024 11/13/2025 1 1 [facility] Summary Purpose Family History No Family History Records Found Relationship Condition Age at Onset Recorded Date/T sunny mother Hypertension Unknown Asthma Unknown Diabetes mellitus Unknown Chronic obstructive pulmonary disease Unk nown Crohn's disease Unknown father Non-Hodgkin lymphoma Unknown Congestive heart failure Unknown Cerebrovascular accident (CVA) Unknown sister Congestive heart failure Unknown sister Diabetes mellitus Unknown sister Hypertension Unknown sister Fibromyalgia Unknown sister Kidney disorder Unknown Advance Directives No Advanced Directives Records FoundDocuments on File Type Date Recorded Patient Systems Analyst Expl anation Advance Directive(s) 06/27/2024 4:14 PM Date Activated Date Inactivated Comments 07/23/2024 1:07 PM Documents on File Type Date Recorded Patient Systems Analyst Expl anation Advance Directive(s) 06/27/2024 4:14 PM Advance Directive Response Recorded Date/ Time Do you have a Healthcare Pow er of Commodity Analyst? Yes July 07, 2024 3:14pm Name of Medical Power of Commodity Analyst Uli Mott, July 07, 2024 3:14pm Date Activated Date Inactivated Comments 07/23/2024 1:07 PM Advance Directive Response Recorded Date/ Time Do you have a Healthcare Pow er of Commodity Analyst? Yes July 07, 2024 3:14pm Name of Medical Power of Commodity Analyst Uli Mott, July 07, 2024 3:14pm Do you have a Healthcare Pow er of Commodity Analyst? Yes August 25, 2024 5:18pm Reason for Referral Specialty Diagnoses / Procedures Referred By Sandy t Referred To Contact [facility] Diagnoses Primary osteoarthritis of right hip Procedures CONSULT TO PHYSICAL THERAPY PHYSICAL THERAPY EVALUATION HIGH COMPLEX 45 MINS Bryan Linda V, DO [address] [place] [address] [facility] [place] [address] [place] [address] Referral ID Status Reason Start Date Expiration Date Visits Requested Visits Authorized [id number] Authorized PCP Requested Referral Auto-Generate d Referral [...] INT LABS August 17, 2024 9:32 am Chief Complaint Admit Date R TOTAL HIP ARTHROPLASTY July 06 1:28pm TACHY July 08, 2024 8:46am EKG July 14, 2024 10:53a m AFIB W/RVR S/P August 11, 2024 10:37 am INT LABS August 17, 2024 9:32 am EDEMA August 24, 2024 12:3 9pm palpitations August 25, 2024 5:01 pm Chief Complaint Admit Date R TOTAL HIP ARTHROPLASTY July 06 1:28pm TACHY July 08, 2024 8:46am EKG July 14, 2024 10:53a m AFIB W/RVR S/P August 11, 2024 10:37 am INT LABS August 17, 2024 9:32 am EDEMA August 24, 2024 12:3 9pm palpitations August 25, 2024 5:01 pm S/P ([facility] 08/25) September 13, 2024 9:12a m Reason for Visit Admit Date Debility July [...] post right hip replacement August 112024 10:37am Hypertension September 13, 2024 9:12a m Paroxysmal atrial fibrillation September 13, 2024 9:12am Chief Complaint Admit Date R TOTAL HIP ARTHROPLASTY July 06 1:28pm TACHY July 08, 2024 8:46am EKG July 14, 2024 10:53a m AFIB W/RVR S/P August 11, 2024 10:37 am INT LABS August 17, 2024 9:32 am EDEMA August 24, 2024 12:3 9pm palpitations August 25, 2024 5:01 pm S/P ([facility] 08/25) September 13, 2024 9:12a m PAF Rajesh to read September 17, 2024 2:10 pm ESTABLISH September 30, 2024 2:35 pm Reason for Visit Admit Date Debility July [...] post right hip replacement August 112024 10:37am Diastolic dysfunction September 13, 2024 9:1 2am Hypertension September 13, 2024 9:12a m Paroxysmal atrial fibrillation September 13, 2024 9:12am Bradycardia September 30, 2024 2:35 pm Paroxysmal atrial fibrillation September 2:35pm Chief Complaint Admit Date R TOTAL HIP ARTHROPLASTY July 06 1:28pm TACHY July 08, 2024 8:46am EKG July 14, 2024 10:53a m AFIB W/RVR S/P August 11, 2024 10:37 am INT LABS August 17, 2024 9:32 am EDEMA August 24, 2024 12:3 9pm palpitations August 25, 2024 5:01 pm S/P (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 DATE CREATED AUTHOR AUTHOR'S ORGANIZ ATION 11/10/2024 [facility] DATE CREATED AUTHOR AUTHOR'S ORGANIZ ATION 11/16/2024 [facility] Source Comments (unrecognize d section and content) In the event this informatio n is protected by the Federal Confidentiality of Alcohol and Drug Abuse Patient Records regulations: The Federal rules restrict any use of the information to criminally investigate or prosecute any alcohol or drug abuse patient.[facility] the event this information is protected by the Federal Confidentiality of Alcohol and Drug Abuse Patient Records regulations: The Federal rules restrict any use of the information to criminally investigate or prosecute any alcohol or drug abuse patient.[facility] the event this information is protected by the Federal Confidentiality of Alcohol and Drug Abuse Patient Records regulations: The Federal rules restrict any use of the information to criminally investigate or prosecute any alcohol or drug abuse patient.[facility] the event this information is protected by the Federal Confidentiality of Alcohol and Drug Abuse Patient Records regulations: The Federal rules restrict any use of the information to criminally investigate or prosecute any alcohol or drug abuse patient.[facility] the event this information is protected by the Federal Confidentiality of Alcohol and Drug Abuse Patient Records regulations: The Federal rules restrict any use of the information to criminally investigate or prosecute any alcohol or drug abuse patient.[facility] the event this information is protected by the Federal Confidentiality of Alcohol and Drug Abuse Patient Records regulations: The Federal rules restrict any use of the information to criminally investigate or prosecute any alcohol or drug abuse patient.[facility] the event this information is protected by the Federal Confidentiality of Alcohol and Drug Abuse Patient Records regulations: The Federal rules restrict any use of the information to criminally investigate or prosecute any alcohol or drug abuse patient.[facility] the event this information is protected by the Federal Confidentiality of Alcohol and Drug Abuse Patient Records regulations: The Federal rules restrict any use of the information to criminally investigate or prosecute any alcohol or drug abuse patient.[facility] the event this information is protected by the Federal Confidentiality of Alcohol and Drug Abuse Patient Records regulations: The Federal rules restrict any use of the information to criminally investigate or prosecute any alcohol or drug abuse patient.[facility] the event this information is protected by the Federal Confidentiality of Alcohol and Drug Abuse Patient Records regulations: The Federal rules restrict any use of the information to criminally investigate or prosecute any alcohol or drug abuse patient.[facility] the event this information is protected by the Federal Confidentiality of Alcohol and Drug Abuse Patient Records regulations: The Federal rules restrict any use of the information to criminally investigate or prosecute any alcohol or drug abuse patient.[facility] Hospital[facility] the event this information is protected by the Federal Confidentiality of Alcohol and Drug Abuse Patient Records regulations: The Federal rules restrict any use of the information to criminally investigate or prosecute any alcohol or drug abuse patient.[facility] Hospital[facility] the event this information is protected by the Federal Confidentiality of Alcohol and Drug Abuse Patient Records regulations: The Federal rules restrict any use of the information to criminally investigate or prosecute any alcohol or drug abuse patient.[facility] the event this information is protected by the Federal Confidentiality of Alcohol and Drug Abuse Patient Records regulations: The Federal rules restrict any use of the information to criminally investigate or prosecute any alcohol or drug abuse patient.[facility] HospitalIn the event this information is protected by the Federal Confidentiality of Alcohol and Drug Abuse Patient Records regulations: The Federal rules restrict any use of the information to criminally investigate or prosecute any alcohol or drug abuse patient.[facility] HospitalIn the event this information is protected by the Federal Confidentiality of Alcohol and Drug Abuse Patient Records regulations: The Federal rules restrict any use of the information to criminally investigate or prosecute any alcohol or drug abuse patient.[facility] HospitalIn the event this information is protected by the Federal Confidentiality of Alcohol and Drug Abuse Patient Records regulations: The Federal rules restrict any use of the information to criminally investigate or prosecute any alcohol or drug abuse patient.[facility] HospitalIn the event this information is protected by the Federal Confidentiality of Alcohol and Drug Abuse Patient Records regulations: The Federal rules restrict any use of the information to criminally investigate or prosecute any alcohol or drug abuse patient.[facility] HospitalIn the event this information is protected by the Federal Confidentiality of Alcohol and Drug Abuse Patient Records regulations: The Federal rules restrict any use of the information to criminally investigate or prosecute any alcohol or drug abuse patient.[facility] HospitalIn the event this information is protected by the Federal Confidentiality of Alcohol and Drug Abuse Patient Records regulations: The Federal rules restrict any use of the information to criminally investigate or prosecute any alcohol or drug abuse patient.[facility] HospitalIn the event this information is protected by the Federal Confidentiality of Alcohol and Drug Abuse Patient Records regulations: The Federal rules restrict any use of the information to criminally investigate or prosecute any alcohol or drug abuse patient.[facility] HospitalIn the event this information is protected by the Federal Confidentiality of Alcohol and Drug Abuse Patient Records regulations: The Federal rules restrict any use of the information to criminally investigate or prosecute any alcohol or drug abuse patient.[facility] HospitalIn the event this information is protected by the Federal Confidentiality of Alcohol and Drug Abuse Patient Records regulations: The Federal rules restrict any use of the information to criminally investigate or prosecute any alcohol or drug abuse patient.[facility] HospitalIn the event this information is protected by the Federal Confidentiality of Alcohol and Drug Abuse Patient Records regulations: The Federal rules restrict any use of the information to criminally investigate or prosecute any alcohol or drug abuse patient.[facility] HospitalIn the event this information is protected by the Federal Confidentiality of Alcohol and Drug Abuse Patient Records regulations: The Federal rules restrict any use of the information to criminally investigate or prosecute any alcohol or drug abuse patient.[facility] HospitalIn the event this information is protected by the Federal Confidentiality of Alcohol and Drug Abuse Patient Records regulations: The Federal rules restrict any use of the information to criminally investigate or prosecute any alcohol or drug abuse patient.[facility] HospitalIn the event this information is protected by the Federal Confidentiality of Alcohol and Drug Abuse Patient Records regulations: The Federal rules restrict any use of the information to criminally investigate or prosecute any alcohol or drug abuse patient.[facility] HospitalIn the event this information is protected by the Federal Confidentiality of Alcohol and Drug Abuse Patient Records regulations: The Federal rules restrict any use of the information to criminally investigate or prosecute any alcohol or drug abuse patient.[facility] HospitalIn the event this information is protected by the Federal Confidentiality of Alcohol and Drug Abuse Patient Records regulations: The Federal rules restrict any use of the information to criminally investigate or prosecute any alcohol or drug abuse patient.[facility] HospitalIn the event this information is protected by the Federal Confidentiality of Alcohol and Drug Abuse Patient Records regulations: The Federal rules restrict any use of the information to criminally investigate or prosecute any alcohol or drug abuse patient.[facility] HospitalIn the event this information is protected by the Federal Confidentiality of Alcohol and Drug Abuse Patient Records regulations: The Federal rules restrict any use of the information to criminally investigate or prosecute any alcohol or drug abuse patient.[facility] HospitalIn the event this information is protected by the Federal Confidentiality of Alcohol and Drug Abuse Patient Records regulations: The Federal rules restrict any use of the information to criminally investigate or prosecute any alcohol or drug abuse patient.[facility] HospitalIn the event this information is protected by the Federal Confidentiality of Alcohol and Drug Abuse Patient Records regulations: The Federal rules restrict any use of the information to criminally investigate or prosecute any alcohol or drug abuse patient.[facility] HospitalIn the event this information is protected by the Federal Confidentiality of Alcohol and Drug Abuse Patient Records regulations: The Federal rules restrict any use of the information to criminally investigate or prosecute any alcohol or drug abuse patient.[facility] HospitalIn the event this information is protected by the Federal Confidentiality of Alcohol and Drug Abuse Patient Records regulations: The Federal rules restrict any use of the information to criminally investigate or prosecute any alcohol or drug abuse patient.[facility] HospitalIn the event this information is protected by the Federal Confidentiality of Alcohol and Drug Abuse Patient Records regulations: The Federal rules restrict any use of the information to criminally investigate or prosecute any alcohol or drug abuse patient.[facility] HospitalIn the event this information is protected by the Federal Confidentiality of Alcohol and Drug Abuse Patient Records regulations: The Federal rules restrict any use of the information to criminally investigate or prosecute any alcohol or drug abuse patient.[facility] HospitalIn the event this information is protected by the Federal Confidentiality of Alcohol and Drug Abuse Patient Records regulations: The Federal rules restrict any use of the information to criminally investigate or prosecute any alcohol or drug abuse patient.[facility] HospitalIn the event this information is protected by the Federal Confidentiality of Alcohol and Drug Abuse Patient Records regulations: The Federal rules restrict any use of the information to criminally investigate or prosecute any alcohol or drug abuse patient.[facility] HospitalIn the event this information is protected by the Federal Confidentiality of Alcohol and Drug Abuse Patient Records regulations: The Federal rules restrict any use of the information to criminally investigate or prosecute any alcohol or drug abuse patient.[facility] HospitalIn the event this information is protected by the Federal Confidentiality of Alcohol and Drug Abuse Patient Records regulations: The Federal rules restrict any use of the information to criminally investigate or prosecute any alcohol or drug abuse patient.[facility] HospitalIn the event this information is protected by the Federal Confidentiality of Alcohol and Drug Abuse Patient Records regulations: The Federal rules restrict any use of the information to criminally investigate or prosecute any alcohol or drug abuse patient.[facility] HospitalIn the event this information is protected by the Federal Confidentiality of Alcohol and Drug Abuse Patient Records regulations: The Federal rules restrict any use of the information to criminally investigate or prosecute any alcohol or drug abuse patient.[facility] HospitalIn the event this information is protected by the Federal Confidentiality of Alcohol and Drug Abuse Patient Records regulations: The Federal rules restrict any use of the information to criminally investigate or prosecute any alcohol or drug abuse patient.[facility] HospitalIn the event this information is protected by the Federal Confidentiality of Alcohol and Drug Abuse Patient Records regulations: The Federal rules restrict any use of the information to criminally investigate or prosecute any alcohol or drug abuse patient.[facility] HospitalIn the event this information is protected by the Federal Confidentiality of Alcohol and Drug Abuse Patient Records regulations: The Federal rules restrict any use of the information to criminally investigate or prosecute any alcohol or drug abuse patient.[facility] HospitalIn the event this information is protected by the Federal Confidentiality of Alcohol and Drug Abuse Patient Records regulations: The Federal rules restrict any use of the information to criminally investigate or prosecute any alcohol or drug abuse patient.[facility] HospitalIn the event this information is protected by the Federal Confidentiality of Alcohol and Drug Abuse Patient Records regulations: The Federal rules restrict any use of the information to criminally investigate or prosecute any alcohol or drug abuse patient.[facility] HospitalIn the event this information is protected by the Federal Confidentiality of Alcohol and Drug Abuse Patient Records regulations: The Federal rules restrict any use of the information to criminally investigate or prosecute any alcohol or drug abuse patient.[facility] HospitalIn the event this information is protected by the Federal Confidentiality of Alcohol and Drug Abuse Patient Records regulations: The Federal rules restrict any use of the information to criminally investigate or prosecute any alcohol or drug abuse patient.[facility] HospitalIn the event this information is protected by the Federal Confidentiality of Alcohol and Drug Abuse Patient Records regulations: The Federal rules restrict any use of the information to criminally investigate or prosecute any alcohol or drug abuse patient.[facility] HospitalIn the event this information is protected by the Federal Confidentiality of Alcohol and Drug Abuse Patient Records regulations: The Federal rules restrict any use of the information to criminally investigate or prosecute any alcohol or drug abuse patient.[facility] HospitalIn the event this information is protected by the Federal Confidentiality of Alcohol and Drug Abuse Patient Records regulations: The Federal rules restrict any use of the information to criminally investigate or prosecute any alcohol or drug abuse patient.[facility] HospitalIn the event this information is protected by the Federal Confidentiality of Alcohol and Drug Abuse Patient Records regulations: The Federal rules restrict any use of the information to criminally investigate or prosecute any alcohol or drug abuse patient.[facility] HospitalIn the event this information is protected by the Federal Confidentiality of Alcohol and Drug Abuse Patient Records regulations: The Federal rules restrict any use of the information to criminally investigate or prosecute any alcohol or drug abuse patient.[facility] HospitalIn the event this information is protected by the Federal Confidentiality of Alcohol and Drug Abuse Patient Records regulations: The Federal rules restrict any use of the information to criminally investigate or prosecute any alcohol or drug abuse patient.[facility] HospitalIn the event this information is protected by the Federal Confidentiality of Alcohol and Drug Abuse Patient Records regulations: The Federal rules restrict any use of the information to criminally investigate or prosecute any alcohol or drug abuse patient.[facility] HospitalIn the event this information is protected by the Federal Confidentiality of Alcohol and Drug Abuse Patient Records regulations: The Federal rules restrict any use of the information to criminally investigate or prosecute any alcohol or drug abuse patient.[facility] HospitalIn the event this information is protected by the Federal Confidentiality of Alcohol and Drug Abuse Patient Records regulations: The Federal rules restrict any use of the information to criminally investigate or prosecute any alcohol or drug abuse patient.[facility] HospitalIn the event this information is protected by the Federal Confidentiality of Alcohol and Drug Abuse Patient Records regulations: The Federal rules restrict any use of the information to criminally investigate or prosecute any alcohol or drug abuse patient.[facility] HospitalIn the event this information is protected by the Federal Confidentiality of Alcohol and Drug Abuse Patient Records regulations: The Federal rules restrict any use of the information to criminally investigate or prosecute any alcohol or drug abuse patient.[facility] HospitalIn the event this information is protected by the Federal Confidentiality of Alcohol and Drug Abuse Patient Records regulations: The Federal rules restrict any use of the information to criminally investigate or prosecute any alcohol or drug abuse patient.[facility] HospitalIn the event this information is protected by the Federal Confidentiality of Alcohol and Drug Abuse Patient Records regulations: The Federal rules restrict any use of the information to criminally investigate or prosecute any alcohol or drug abuse patient.[facility] HospitalIn the event this information is protected by the Federal Confidentiality of Alcohol and Drug Abuse Patient Records regulations: The Federal rules restrict any use of the information to criminally investigate or prosecute any alcohol or drug abuse patient.[facility] HospitalIn the event this information is protected by the Federal Confidentiality of Alcohol and Drug Abuse Patient Records regulations: The Federal rules restrict any use of the information to criminally investigate or prosecute any alcohol or drug abuse patient.[facility] HospitalIn the event this information is protected by the Federal Confidentiality of Alcohol and Drug Abuse Patient Records regulations: The Federal rules restrict any use of the information to criminally investigate or prosecute any alcohol or drug abuse patient.[facility] HospitalIn the event this information is protected by the Federal Confidentiality of Alcohol and Drug Abuse Patient Records regulations: The Federal rules restrict any use of the information to criminally investigate or prosecute any alcohol or drug abuse patient.[facility] HospitalIn the event this information is protected by the Federal Confidentiality of Alcohol and Drug Abuse Patient Records regulations: The Federal rules restrict any use of the information to criminally investigate or prosecute any alcohol or drug abuse patient.[facility] HospitalIn the event this information is protected by the Federal Confidentiality of Alcohol and Drug Abuse Patient Records regulations: The Federal rules restrict any use of the information to criminally investigate or prosecute any alcohol or drug abuse patient.[facility] HospitalIn the event this information is protected by the Federal Confidentiality of Alcohol and Drug Abuse Patient Records regulations: The Federal rules restrict any use of the information to criminally investigate or prosecute any alcohol or drug abuse patient.[facility] HospitalIn the event this information is protected by the Federal Confidentiality of Alcohol and Drug Abuse Patient Records regulations: The Federal rules restrict any use of the information to criminally investigate or prosecute any alcohol or drug abuse patient.[facility] HospitalIn the event this information is protected by the Federal Confidentiality of Alcohol and Drug Abuse Patient Records regulations: The Federal rules restrict any use of the information to criminally investigate or prosecute any alcohol or drug abuse patient.[facility] HospitalIn the event this information is protected by the Federal Confidentiality of Alcohol and Drug Abuse Patient Records regulations: The Federal rules restrict any use of the information to criminally investigate or prosecute any alcohol or drug abuse patient.[facility] HospitalIn the event this information is protected by the Federal Confidentiality of Alcohol and Drug Abuse Patient Records regulations: The Federal rules restrict any use of the information to criminally investigate or prosecute any alcohol or drug abuse patient.[facility] HospitalIn the event this information is protected by the Federal Confidentiality of Alcohol and Drug Abuse Patient Records regulations: The Federal rules restrict any use of the information to criminally investigate or prosecute any alcohol or drug abuse patient.[facility] HospitalIn the event this information is protected by the Federal Confidentiality of Alcohol and Drug Abuse Patient Records regulations: The Federal rules restrict any use of the information to criminally investigate or prosecute any alcohol or drug abuse patient.[facility] HospitalIn the event this information is protected by the Federal Confidentiality of Alcohol and Drug Abuse Patient Records regulations: The Federal rules restrict any use of the information to criminally investigate or prosecute any alcohol or drug abuse patient.[facility] HospitalIn the event this information is protected by the Federal Confidentiality of Alcohol and Drug Abuse Patient Records regulations: The Federal rules restrict any use of the information to criminally investigate or prosecute any alcohol or drug abuse patient.[facility] HospitalIn the event this information is protected by the Federal Confidentiality of Alcohol and Drug Abuse Patient Records regulations: The Federal rules restrict any use of the information to criminally investigate or prosecute any alcohol or drug abuse patient.[facility] HospitalIn the event this information is protected by the Federal Confidentiality of Alcohol and Drug Abuse Patient Records regulations: The Federal rules restrict any use of the information to criminally investigate or prosecute any alcohol or drug abuse patient.[facility] HospitalIn the event this information is protected by the Federal Confidentiality of Alcohol and Drug Abuse Patient Records regulations: The Federal rules restrict any use of the information to criminally investigate or prosecute any alcohol or drug abuse patient.[facility] HospitalIn the event this information is protected by the Federal Confidentiality of Alcohol and Drug Abuse Patient Records regulations: The Federal rules restrict any use of the information to criminally investigate or prosecute any alcohol or drug abuse patient.[facility] HospitalIn the event this information is protected by the Federal Confidentiality of Alcohol and Drug Abuse Patient Records regulations: The Federal rules restrict any use of the information to criminally investigate or prosecute any alcohol or drug abuse patient.[facility] HospitalIn the event this information is protected by the Federal Confidentiality of Alcohol and Drug Abuse Patient Records regulations: The Federal rules restrict any use of the information to criminally investigate or prosecute any alcohol or drug abuse patient.[facility] HospitalIn the event this information is protected by the Federal Confidentiality of Alcohol and Drug Abuse Patient Records regulations: The Federal rules restrict any use of the information to criminally investigate or prosecute any alcohol or drug abuse patient.[facility] HospitalIn the event this information is protected by the Federal Confidentiality of Alcohol and Drug Abuse Patient Records regulations: The Federal rules restrict any use of the information to criminally investigate or prosecute any alcohol or drug abuse patient.[facility] HospitalIn the event this information is protected by the Federal Confidentiality of Alcohol and Drug Abuse Patient Records regulations: The Federal rules restrict any use of the information to criminally investigate or prosecute any alcohol or drug abuse patient.[facility] HospitalIn the event this information is protected by the Federal Confidentiality of Alcohol and Drug Abuse Patient Records regulations: The Federal rules restrict any use of the information to criminally investigate or prosecute any alcohol or drug abuse patient.[facility] HospitalIn the event this information is protected by the Federal Confidentiality of Alcohol and Drug Abuse Patient Records regulations: The Federal rules restrict any use of the information to criminally investigate or prosecute any alcohol or drug abuse patient.[facility] HospitalIn the event this information is protected by the Federal Confidentiality of Alcohol and Drug Abuse Patient Records regulations: The Federal rules restrict any use of the information to criminally investigate or prosecute any alcohol or drug abuse patient.[facility] HospitalIn the event this information is protected by the Federal Confidentiality of Alcohol and Drug Abuse Patient Records regulations: The Federal rules restrict any use of the information to criminally investigate or prosecute any alcohol or drug abuse patient.[facility] HospitalIn the event this information is protected by the Federal Confidentiality of Alcohol and Drug Abuse Patient Records regulations: The Federal rules restrict any use of the information to criminally investigate or prosecute any alcohol or drug abuse patient.[facility] HospitalIn the event this information is protected by the Federal Confidentiality of Alcohol and Drug Abuse Patient Records regulations: The Federal rules restrict any use of the information to criminally investigate or prosecute any alcohol or drug abuse patient.[facility] HospitalIn the event this information is protected by the Federal Confidentiality of Alcohol and Drug Abuse Patient Records regulations: The Federal rules restrict any use of the information to criminally investigate or prosecute any alcohol or drug abuse patient.[facility] HospitalIn the event this information is protected by the Federal Confidentiality of Alcohol and Drug Abuse Patient Records regulations: The Federal rules restrict any use of the information to criminally investigate or prosecute any alcohol or drug abuse patient.[facility] Reason for Visit (unrecogniz ed section and content) Reason Comments PT Discharge Specialty Diagnoses / Procedures Referred By Sandy t Referred To Contact [facility] Diagnoses Primary osteoarthritis of right hip Procedures CONSULT TO PHYSICAL THERAPY PHYSICAL THERAPY EVALUATION HIGH COMPLEX 45 MINS Bryan Linda V, DO [address] [place] [address] [facility] [place] [address] [place] [id number] Referral ID Status Reason Start Date Expiration Date Visits Requested Visits Authorized [id number] Authorized PCP Requested Referral Auto-Generate d Referral 4 02/16/2025 99 99 Reason Comments Physical Therapy [...] hip Specialty Diagnoses / Procedures Referred By Contac t Referred To Contact Orthopedics Diagnoses Primary osteoarthritis of right hip Procedures CONSULT TO ORTHOPAEDICS OFFICE/OUTPATIENT NEW HIGH MDM 60 MINUTES Mary Boston, 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 [address] [place] [address] Referral ID Status Reason Start Date Expiration Date V isits Requested Visits Authorized [id number] Closed PCP Requested Referral 02/02/2024 02/01/2025 1 1 Reason Comments PT Eval Reason Onset Date Comments Refill Request 03/14/2024 Reason Onset Date Comments Refill Request 03/16/2024 Reason Comments Same Day Appointment possible UTI x 1 da y, burning and frequency and blood Reason Comments 9 week 2 days post visit OA right hip Reason Comments New Pain Reason Comments [employer] Teammate - Other Reason Onset Date Comments Refill Request 05/13/2024 Reason Comments Pre-Op Teaching Reason Comments Anesthesia Consult Reason Comments Radiology CT Specialty Diagnoses / Procedures Referred By Sandy t Referred To Contact [facility] Diagnoses Primary osteoarthritis of right hip Preoperative examination Procedures CT HIP WO IVCON RIGHT CT LOWER EXTREMITY W/O CONTRAST MATERIAL Eligio Bergeron MD [address] [place] [address] Phone: tel: fax: [place] [phone] Referral ID Status Reason Start Date Expiration Date V isits Requested Visits Authorized [id number] Closed Auto-Generate d Referral 05/11/2024 06/10/2025 1 [...] Date Comments Population Health Navigation Outreach 07/13/2024 Jennifer/Workbench/ACO Reason Comments Established Patient Hip Replacement Follow Up Pain Reason Comments Home Care Reason Comments Home Care MD to follow Reason Comments Home Care Confirmation call Reason Onset Date Comments Transition Of Care 07/25/2024 [facility] 07-22-24- Initial outreach Reason Comments Home Care Edema Reason Comments Established Patient Follow Up Hip Replacement Reason Comments Home Care Low heart rate Reason Comments Patient Update Patient Question Reason Comments ER F/U Reason Comments Heart Rate Elevated Reason Comments Tachycardia Reason Comments 5 day follow-up Reason Comments F/U 3 Month Reason Comments Pain Established Patient Reason Comments Wound Check Care Teams (unrecognized sec tion and content) Soliciting Freight Agent Relationship Specialty Start Date End Date Navdeep Holcomb MD [address] [place] [address] PCP - General Internal Medicine 07/18/20 Soliciting Freight Agent Relationship Specialty Start Date End Date Navdeep Holcomb MD [address] [place] [address] PCP - General Internal Medicine 07/18/20 Soliciting Freight Agent Relationship Specialty Start Date End Date Navdeep Holcomb MD [address] [place] [address] PCP - General Internal Medicine 07/18/20 Soliciting Freight Agent Relationship Specialty Start Date End Date Navdeep Holcomb MD [address] [place] [address] PCP - General Internal Medicine 07/18/20 Soliciting Freight Agent Relationship Specialty Start Date End Date Navdeep Holcomb MD [address] [place] [address] PCP - General Internal Medicine 07/18/20 Soliciting Freight Agent Relationship Specialty Start Date End Date Navdeep Holcomb MD [address] [place] [address] PCP - General Internal Medicine 07/18/20 Soliciting Freight Agent Relationship Specialty Start Date End Date Navdeep Holcomb MD [address] [place] [address] PCP - General Internal Medicine 07/18/20 Soliciting Freight Agent Relationship Specialty Start Date End Date Navdeep Holcomb MD [address] [facility] [place] [address] PCP - General Internal Medicine 07/18/20 Soliciting Freight Agent Relationship Specialty Start Date End Date Navdeep Holcomb MD [address] [place] [address] PCP - General Internal Medicine 07/18/20 Soliciting Freight Agent Relationship Specialty Start Date End Date Navdeep Holcomb MD [address] [place] [address] PCP - General Internal Medicine 07/18/20 Soliciting Freight Agent Relationship Specialty Start Date End Date Navdeep Holcomb MD [address] [place] [address] PCP - General Internal Medicine 07/18/20 Soliciting Freight Agent Relationship Specialty Start Date End Date Navdeep Holcomb MD [address] [place] [address] PCP - General Internal Medicine 07/18/20 Soliciting Freight Agent Relationship Specialty Start Date End Date Navdeep Holcomb MD [address] [place] [address] PCP - General Internal Medicine 07/18/20 Soliciting Freight Agent Relationship Specialty Start Date End Date Navdeep Holcomb MD [address] [place] [address] PCP - General Internal Medicine 07/18/20 Soliciting Freight Agent Relationship Specialty Start Date End Date Navdeep Holcomb MD [address] [place] [address] PCP - General Internal Medicine 07/18/20 Soliciting Freight Agent Relationship Specialty Start Date End Date Navdeep Holcomb MD [address] [place] [address] PCP - General Internal Medicine 07/18/20 Soliciting Freight Agent Relationship Specialty Start Date End Date Navdeep Holcomb MD [address] [facility] [place] [address] PCP - General Internal Medicine 07/18/20 Soliciting Freight Agent Relationship Specialty Start Date End Date Navdeep Holocmb MD [address] [facility] [place] [address] PCP - General Internal Medicine 07/18/20 Soliciting Freight Agent Relationship Specialty Start Date End Date Navdeep Holcomb MD [address] [facility] [place] [address] PCP - General Internal Medicine 07/18/20 Soliciting Freight Agent Relationship Specialty Start Date End Date Navdeep Holcomb MD [address] [place] [address] PCP - General Internal Medicine 07/18/20 Soliciting Freight Agent Relationship Specialty Start Date End Date Navdeep Holcomb MD [address] [facility] [place] [address] PCP - General Internal Medicine 07/18/20 Mary Boston, 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 [address] [place] [address] Fur Comber Internal Medicine 02/15/24 Soliciting Freight Agent Relationship Specialty Start Date End Date Navdeep Holcomb MD [address] [facility] [place] [address] PCP - General Internal Medicine 07/18/20 Mary Boston, 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 [address] [facility] [place] [address] Fur Comber Internal Medicine 02/15/24 Soliciting Freight Agent Relationship Specialty Start Date End Date Navdeep Holcomb MD [address] [facility] [place] [address] PCP - General Internal Medicine 07/18/20 Mary Boston, 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 [address] [facility] [place] [address] Fur Comber Internal Medicine 02/15/24 Soliciting Freight Agent Relationship Specialty Start Date End Date Navdeep Holcomb MD [address] [facility] [place] [address] PCP - General Internal Medicine 07/18/20 Mary Boston, 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 [address] [facility] [place] [address] Fur Comber Internal Medicine 02/15/24 Soliciting Freight Agent Relationship Specialty Start Date End Date Navdeep Holcomb MD [address] [facility] [place] [address] PCP - General Internal Medicine 07/18/20 Mary Boston, 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 [address] [facility] [place] [address] Fur Comber Internal Medicine 02/15/24 Soliciting Freight Agent Relationship Specialty Start Date End Date Navdeep Holcomb MD [address] [facility] [place], [place] [address] PCP - General Internal Medicine 07/18/20 Mary Boston, 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 [address] [facility] [place] [address] Fur Comber Internal Medicine 02/15/24 Soliciting Freight Agent Relationship Specialty Start Date End Date Navdeep Holcomb MD [address] [place] [address] PCP - General Internal Medicine 07/18/20 Mary Boston, 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 [address] [place] [address] Fur Comber Internal Medicine 02/15/24 Soliciting Freight Agent Relationship Specialty Start Date End Date Navdeep Holcomb MD [address] [place] [address] PCP - General Internal Medicine 07/18/20 Mary Boston, 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 [address] [place] [address] Fur Comber Internal Medicine 02/15/24 Soliciting Freight Agent Relationship Specialty Start Date End Date Navdeep Holcomb MD [address] [place], [place] [address] [phone] PCP - General Internal Medicine 07/18/20 Mary Boston, 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 [address] [facility] [place] [address] Fur Comber Internal Medicine 02/15/24 Soliciting Freight Agent Relationship Specialty Start Date End Date Navdeep Holcomb MD [address] [place] [address] PCP - General Internal Medicine 07/18/20 Mary Boston, 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 [address] [place] [address] Fur Comber Internal Medicine 02/15/24 Sissen, Evaristo, [facility] [address] [place] [address] Specialty Customer Solutions [facility] 05/11/24 08/03/24 Soliciting Freight Agent Relationship Specialty Start Date End Date Navdeep Holcomb MD [address] [place] [address] PCP - General Internal Medicine 07/18/20 Mary Boston, 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 [address] [place] [address] Fur Comber Internal Medicine 02/15/24 Sissen, Evaristo, [facility] [address] [place] [address] [employer] [facility] [facility] 05/11/24 08/03/24 Soliciting Freight Agent Relationship Specialty Start Date End Date Navdeep Holcomb MD [address] [place] [address] PCP - General Internal Medicine 07/18/20 Mary Boston, 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 [address] [place] [address] Fur Comber Internal Medicine 02/15/24 Sissen, Evaristo, [facility] [address] [place] [address] [employer] [facility] 05/11/24 08/03/24 Soliciting Freight Agent Relationship Specialty Start Date End Date Navdeep Holcomb MD [address] [facility] [place] [address] PCP - General Internal Medicine 07/18/20 Mary Boston, 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 [address] [place] [address] Fur Comber Internal Medicine 02/15/24 Sissen, Evaristo, [facility] [address] [place] [address] [employer] [facility] 05/11/24 08/03/24 Soliciting Freight Agent Relationship Specialty Start Date End Date Navdeep Holcomb MD [address] [place] [address] PCP - General Internal Medicine 07/18/20 Mary Boston, 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 [address] [place] [address] Fur Comber Internal Medicine 02/15/24 SissenJessein, [facility] [address] [place] [address] Specialty [employer] [facility] 05/11/24 08/03/24 Soliciting Freight Agent Relationship Specialty Start Date End Date Navdeep Holcomb MD [address] [place] [address] PCP - General Internal Medicine 07/18/20 Mary Boston, 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 [address] [facility] [place] [address] Fur Comber Internal Medicine 02/15/24 SissenJessein, [facility] [address] [place] [address] [employer]ty [employer] [facility] 05/11/24 08/03/24 Soliciting Freight Agent Relationship Specialty Start Date End Date Navdeep Holcomb MD [address] [place] [address] PCP - General Internal Medicine 07/18/20 Mary Boston, 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 [address] [place] [address] Fur Comber Internal Medicine 02/15/24 Sissen, Evaristo, [facility] [address] [place] [address] [employer] [facility] 05/11/24 08/03/24 Soliciting Freight Agent Relationship Specialty Start Date End Date Navdeep Holcomb MD [address] [place] [address] PCP - General Internal Medicine 07/18/20 Mary Boston, 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 [address] [place] [address] Fur Comber Internal Medicine 02/15/24 Jesse Patein, [facility] [address] [place] [address] [employer] [facility] 05/11/24 08/03/24 Soliciting Freight Agent Relationship Specialty Start Date End Date Navdeep Holcomb MD [address] [place] [address] PCP - General Internal Medicine 07/18/20 Mary Boston, 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 [address] [place] [address] Fur Comber Internal Medicine 02/15/24 SissenJessein, [facility] [address] [place] [address] [employer] [facility] 05/11/24 08/03/24 Soliciting Freight Agent Relationship Specialty Start Date End Date Navdeep Holcomb MD [address] [place] [address] PCP - General Internal Medicine 07/18/20 Mary Boston, 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 [address] [place] [address] Fur Comber Internal Medicine 02/15/24 Sissen, Evaristo, [facility] [address] [place] [address] Special[employer] [facility] 05/11/24 08/03/24 Soliciting Freight Agent Relationship Specialty Start Date End Date Navdeep Holcomb MD [address] [place] [address] PCP - General Internal Medicine 07/18/20 Mary Boston, 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 [address] [place] [address] Fur Comber Internal Medicine 02/15/24 SisJesse prietoin, [facility] [address] [place] [address] [employer]ty [employer] [facility] 05/11/24 08/03/24 Soliciting Freight Agent Relationship Specialty Start Date End Date Navdeep Holcomb MD [address] [place] [address] PCP - General Internal Medicine 07/18/20 Mary Boston, 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 [address] [place] [address] Fur Comber Internal Medicine 02/15/24 Sissen, Evaristo, [facility] [address] [place] [address] [employer] [facility] 05/11/24 08/03/24 Soliciting Freight Agent Relationship Specialty Start Date End Date Navdeep Holcomb MD [address] [place] [address] PCP - General Internal Medicine 07/18/20 Mary Boston, 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 [address] [place] [address] Fur Comber Internal Medicine 02/15/24 Sissen, Evaristo, [facility] [address] [place] [address] [employer]ty [employer] [facility] 05/11/24 08/03/24 Soliciting Freight Agent Relationship Specialty Start Date End Date Navdeep Holcomb MD [address] [place] [address] PCP - General Internal Medicine 07/18/20 Mary Boston, 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 [address] [place] [address] Fur Comber Internal Medicine 02/15/24 Sissen, Evaristo, [facility] [address] [place] [address] Specialty Customer [employer] [facility] 05/11/24 08/03/24 Soliciting Freight Agent Relationship Specialty Start Date End Date Navdeep Holcomb MD [address] [place] [address] PCP - General Internal Medicine 07/18/20 Mary Boston, 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 [address] [place] [address] Fur Comber Internal Medicine 02/15/24 Sissen, Evaristo, [facility] [address] [place] [address] Special[employer] [facility] 05/11/24 08/03/24 Soliciting Freight Agent Relationship Specialty Start Date End Date Navdeep Holcomb MD [address] [place] [address] PCP - General Internal Medicine 07/18/20 Mary Boston, 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 [address] [place] [address] Fur Comber Internal Medicine 02/15/24 Evaristo Pate, [facility] [address] [place] [address] [employer] [facility] 05/11/24 08/03/24 Eligio Bergeron MD [address] [place] [address] Home Care Provider Orthopedics 07/01/24 Eligio Bergeron MD [address] [place] [address] Referring Orthopedics 07/01/24 Soliciting Freight Agent Relationship Specialty Start Date End Date Navdeep Holcomb MD [address] [place] [address] PCP - General Internal Medicine 07/18/20 Mary Boston, 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 [address] [place] [address] Fur Comber Internal Medicine 02/15/24 Evaristo Pate, [facility] [address] [place] [address] [employer]ty [employer] [facility] 05/11/24 08/03/24 Eligio Bergeron MD [address] [place] [address] Home Care Provider Orthopedics 07/01/24 Eligio Bergeron MD [address] [place] [address] Referring Orthopedics 07/01/24 Soliciting Freight Agent Relationship Specialty Start Date End Date Navdeep Holcomb MD [address] [place] [address] PCP - General Internal Medicine 07/18/20 Mary Boston, 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 [address] [place] [address] Fur Comber Internal Medicine 02/15/24 Evaristo Pate, [facility] [address] [place] [address] [employer]ty [employer] [facility] 05/11/24 08/03/24 Eligio Bergeron MD [address] [place] [address] Home Care Provider Orthopedics 07/01/24 Eligio Bergeron MD [address] [place] [address] Referring Orthopedics 07/01/24 Soliciting Freight Agent Relationship Specialty Start Date End Date Navdeep Holcomb MD [address] [place] [address] PCP - General Internal Medicine 07/18/20 Mary Boston, 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 [address] [place] [address] Fur Comber Internal Medicine 02/15/24 Evaristo Pate, [facility] [address] [place] [address] [employer] [facility] 05/11/24 08/03/24 Eligio Bergeron MD [address] [place] [address] Home Care Provider Orthopedics 07/01/24 Eligio Bergeron MD [address] [place] [address] Referring Orthopedics 07/01/24 Soliciting Freight Agent Relationship Specialty Start Date End Date Navdeep Holcomb MD [address] [place] [address] PCP - General Internal Medicine 07/18/20 Mary Boston, 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 [address] [place] [address] Fur Comber Internal Medicine 02/15/24 Evaristo Pate, [facility] [address] [place] [address] [employer] [facility] 05/11/24 08/03/24 Eligio Bergeron MD [address] [place] [address] Home Care Provider Orthopedics 07/01/24 Eligio Bergeron MD [address] [place] [address] Referring Orthopedics 07/01/24 Soliciting Freight Agent Relationship Specialty Start Date End Date Navdeep Holcomb MD [address] [place] [address] PCP - General Internal Medicine 07/18/20 Mary oBston, 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 [address] [place] [address] Fur Comber Internal Medicine 02/15/24 Evaristo Pate, [facility] [address] [place] [address] Specialty Customer [employer] [facility] 05/11/24 08/03/24 Eligio Bergeron MD [address] [place] [address] Home Care Provider Orthopedics 07/01/24 Eligio eBrgeron MD [address] [place] [address] Referring Orthopedics 07/01/24 Soliciting Freight Agent Relationship Specialty Start Date End Date Navdeep Holcomb MD [address] [place] [address] PCP - General Internal Medicine 07/18/20 Mary Boston, 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 [address] [place] [address] Fur Comber Internal Medicine 02/15/24 Evaristo Pate, [facility] [address] [place] [address] Specialty [employer] [facility] [facility] 05/11/24 08/03/24 Eligio Bergeron MD [address] [place] [address] Home Care Provider Orthopedics 07/01/24 Eligio Bergeron MD [address] [place] [address] Referring Orthopedics 07/01/24 Soliciting Freight Agent Relationship Specialty Start Date End Date Navdeep Holcomb MD [address] [place] [address] PCP - General Internal Medicine 07/18/20 Mary Bostno, 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 [address] [place] [address] Fur Comber Internal Medicine 02/15/24 Evaristo Pate, [facility] [address] [place] [address] Specialty Customer [employer] [facility] 05/11/24 08/03/24 New Bear Chi [address] [place] [address] Referring Gerontology 07/21/24 Navdeep Holcomb MD [address] [place] [address] Home Care Provider Internal Medicine 07/21/24 Soliciting Freight Agent Relationship Specialty Start Date End Date Navdeep Holcomb MD [address] [place] [address] PCP - General Internal Medicine 07/18/20 Mary Boston, 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 [address] [place] [address] Fur Comber Internal Medicine 02/15/24 Evaristo Pate, [facility] [address] [place] [address] Specialty Customer [employer] [facility] 05/11/24 08/03/24 New Bear Chi [address] [place] [address] Referring Gerontology 07/21/24 Navdeep Holcomb MD [address] [place] [address] Home Care Provider Internal Medicine 07/21/24 Team Status: Active Member Role Status Dates Dr. Parth Oropeza III, MD Family Provider Active Dr. Navdeep Holcomb MD Primary Care Provider Active Team Status: Inactive Member Role Status Dates Dr. New Bear MD Admit Provider Active Star t: July 06, 2024 End: July 22, 2024 Dr. New Bear MD Attending Provider Active Start: July 06, 2024 End: July 22, 2024 Dr. Navdeep Holcomb MD Primary Care Provider Active Start: July 06, 2024 End: July 22, 2024 Team Status: Active Member Role Status Dates Dr. Navdeep Holcomb MD Primary Care Provider Active Start: July 08, 2024 End: July 08, 2024 Dr. Olga Galvez MD Attending Provider Active Start: July 08, 2024 End: July 08, 2024 Dr. New Bear MD Referring Provider Active Start: July 08, 2024 End: July 08, 2024 Team Status: Active Member Role Status Dates Dr. Navdeep Holcomb MD Primary Care Provider Active Start: July 14, 2024 End: July 14, 2024 Dr. Rosalio Mena MD Attending Provider Active Start: July 14, 2024 End: July 14, 2024 Dr. New Bear MD Referring Provider Active Start: July 14, 2024 End: July 14, 2024 Soliciting Freight Agent Relationship Specialty Start Date End Date Navdeep Holcomb MD [address] [place], [place] [address] PCP - General Internal Medicine 07/18/20 Mary Boston, 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 [address] [place], [place] [address] [employer] Internal Medicine 02/15/24 Evaristo Pate [facility] [address] [place] [address] [employer] [facility] 05/11/24 08/03/24 New Bear Chi [address] [id number] Referring Gerontology 07/21/24 Navdeep Holcomb MD [address] [place], [place] [address]571 Home Care Provider Internal Medicine 07/21/24 Pradip Hillman, PT [address] [place] [address] [employer] Combination Teacher Post Acute Care 07/22/24 Soliciting Freight Agent Relationship Specialty Start Date End Date Navdeep Holcomb MD [address] [place] [address] PCP - General Internal Medicine 07/18/20 Mary Boston, 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 [address] [place] [address] [employer] Internal Medicine 02/15/24 Evaristo Pate [facility] [address] [place] [address] [employer] [facility] [facility] 05/11/24 08/03/24 New Bear Chi [address] [address] Referring Gerontology 07/21/24 Navdeep Holcomb MD [address] [place] [address] Home Care Provider Internal Medicine 07/21/24 Pradip Hillman, PT [address] [place] [address] [employer] Combination Teacher Post Acute Care 07/22/24 Wanda Costa, RN [address] [place] [address] Primary Care Field Automobile Adjuster Internal Medicine 07/25/24 07/25/24 Soliciting Freight Agent Relationship Specialty Start Date End Date Navdeep Holcomb MD [address] [place] [address] PCP - General Internal Medicine 07/18/20 Mary Boston, 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 [address] [place] [address] Fur Com[employer] Internal Medicine 02/15/24 Evaristo Pate, [facility] [address] [place] [address] [employer]ty [employer] [facility] 05/11/24 08/03/24 New Bear Chi [address] [place] [address] Referring Gerontology 07/21/24 Navdeep Holcomb MD [address] [place] [address] Home Care Provider Internal Medicine 07/21/24 Pradip Hillman, PT [address] [place] [address] [employer] Combination Teacher Post Acute Care 07/22/24 Wanda Costa, RN [address] [place] [address] Primary Care Field Automobile Adjuster Internal Medicine 07/25/24 07/25/24 Soliciting Freight Agent Relationship Specialty Start Date End Date Navdeep Holcomb MD [address] [place] [address] PCP - General Internal Medicine 07/18/20 Mary Boston, 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 [address] [place] [address] Fur Comber Internal Medicine 02/15/24 Evaristo Pate, [facility] [address] [place] [address] [employer]ty [employer] [facility] 05/11/24 08/03/24 New Bear Chi [address] [place], [place] [address] Referring Gerontology 07/21/24 Navdeep Holcomb MD [address] [place] [address] Home Care Provider Internal Medicine 07/21/24 Pradip Hillman, PT [address] [place] [address] [employer] Combination Teacher Post Acute Care 07/22/24 Soliciting Freight Agent Relationship Specialty Start Date End Date Navdeep Holcomb MD [address] [place] [address] PCP - General Internal Medicine 07/18/20 Mary Boston, CASINO ENFORCEMENT AGENT.[facility] [address] [place] [address] Fur Comber Internal Medicine 02/15/24 Evaristo Pate [facility] [address] [place] [address] [employer]ty [employer] [facility] 05/11/24 08/03/24 New Bear Chi [address] [address] Referring Gerontology 07/21/24 Navdeep Holcomb MD [address] [place] [address] Home Care Provider Internal Medicine 07/21/24 Pradip Hillman, PT [address] [place] [address] High School Combination Teacher Post Acute Care 07/22/24 Soliciting Freight Agent Relationship Specialty Start Date End Date Navdeep Holcomb MD [address] [place], [place] [address]679[address] PCP - General Internal Medicine 07/18/20 Mary Boston, 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 [address] [facility] [place] [address] Fur Comber Internal Medicine 02/15/24 Evaristo Pate [facility] [address] [place] [address] [employer]ty [employer] [facility] 05/11/24 08/03/24 New Bear Chi [address] [place] [address] Referring Gerontology 07/21/24 Navdeep Holcomb MD [address] [place] [address] Home Care Provider Internal Medicine 07/21/24 Pradip Hillman, PT [address] [place] [address] High [employer] Combination Teacher Post Acute Care 07/22/24 Soliciting Freight Agent Relationship Specialty Start Date End Date Navdeep Holcomb MD [address] [place] [address] PCP - General Internal Medicine 07/18/20 Mary Boston, 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 [address] [place] [address] Fur Comber Internal Medicine 02/15/24 New Bear Chi [address] [place] [address] Referring Gerontology 07/21/24 Navdeep Holcomb MD [address] [place] [address] Home Care Provider Internal Medicine 07/21/24 Pradip Hillman, PT [address] [place] [address] [employer] Combination Teacher Post Acute Care 07/22/24 Team Status: Inactive Member Role Status Dates Dr. Navdeep Holcomb MD Primary Care Provider Active Start: August 11, 2024 End: August 11, 2024 Dr. Navdeep Holcomb MD Referring Provider Active Start: August 11, 2024 End: August 11, 2024 Dr. Rosalio Mena MD Attending Provider Active Start: August 11, 2024 End: August 11, 2024 Soliciting Freight Agent Relationship Specialty Start Date End Date Navdeep Holcomb MD [address] [facility] [place], [place] [address] PCP - General Internal Medicine 07/18/20 Mary Boston, 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 [address] [facility] [place] [address] [employer] Internal Medicine 02/15/24 New Bear Chi [address] [place] [address] [address] Referring Gerontology 07/21/24 Navdeep Holcomb MD [address] [facility] [place], [place] [address] Home Care Provider Internal Medicine 07/21/24 Soliciting Freight Agent Relationship Specialty Start Date End Date Navdeep Holcomb MD [address] [facility] [place], [place] [address] PCP - General Internal Medicine 07/18/20 Mary Boston, 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 [address] [facility] [place] [address] [employer] Internal Medicine 02/15/24 Chema, New Chi [address] [address] Referring Gerontology 07/21/24 Navdeep Holcomb MD [address] [place] [address] Home Care Provider Internal Medicine 07/21/24 Pradip Hillman, PT [address] [place] [address] [employer] Combination Teacher Post Acute Care 07/22/24 Team Status: Active Member Role Status Dates Dr. Navdeep Holcomb MD Primary Care Provider Active Team Status: Inactive Member Role Status Dates Dr. Navdeep Holcomb MD Primary Care Provider Active Start: August 17, 2024 End: August 17, 2024 Dr. Rosalio Mena MD Attending Provider Active Start: August 17, 2024 End: August 17, 2024 Dr. Rosalio Mena MD Referring Provider Active Start: August 17, 2024 End: August 17, 2024 Soliciting Freight Agent Relationship Specialty Start Date End Date Navdeep Holcomb MD [address] [place] [address] PCP - General Internal Medicine 07/18/20 Mary Boston, 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 [address] [place] [address] Fur Comber Internal Medicine 02/15/24 Evaristo Pate, [facility] [address] [place] [address] Specialty Customer Solutions Teammate Orthopedics 05/11/24 08/03/24 Eligio Bergeron MD [address] [place] [id number] Home Care Provider Orthopedics 07/01/24 07/20/24 Eligio Bergeron MD [address] [place] [address] Referring Orthopedics 07/01/24 07/20/24 [facility] [address] [place] [address] Referring Gerontology 07/21/24 Navdeep Holcomb MD [address] [place] [address] Home Care Provider Internal Medicine 07/21/24 Pradip Hillman, PT [address] [place] [address] High School Combination Teacher Post Acute Care 07/22/24 08/15/24 Wanda Costa, RN [address] [id number] Primary Care Field Automobile Adjuster Internal Medicine 07/25/24 07/25/24 Team Status: Active Member Role Status Dates Dr. Navdeep Holcomb MD Primary Care Provider Active Start: August 24, 2024 Dr. Rosalio Mena MD Attending Provider Active Start: August 24, 2024 Dr. Rosalio Mena MD Referring Provider Active Start: August 24, 2024 Team Status: Inactive Member Role Status Dates Dr. Navdeep Holcomb MD Primary Care Provider Active Start: August 25, 2024 End: August 25, 2024 Dr. Enio Corcoran , DO Referring Provider Activ e Start: August 25, 2024 End: August 25, 2024 Dr. Enio Corcoran , DO Emergency Provider Activ e Start: August 25, 2024 End: August 25, 2024 Soliciting Freight Agent Relationship Specialty Start Date End Date Navdeep Holcomb MD [address] [place], [place] [id number] PCP - General Internal Medicine 07/18/20 Mary Boston, 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 [address] [facility] [place], [place] [address] Fur Comber Internal Medicine 02/15/24 [facility] [address] [place], [place] [address] Referring Gerontology 07/21/24 Navdeep Holcomb MD [address] [facility] [place] [address] Home Care Provider Internal Medicine 07/21/24 Team Status: Inactive Member Role Status Dates Dr. Navdeep Holcomb MD Primary Care Provider Active Start: August 24, 2024 End: August 24, 2024 Dr. Rosalio Mena MD Attending Provider Active Start: August 24, 2024 End: August 24, 2024 Dr. Rosalio Mena MD Referring Provider Active Start: August 24, 2024 End: August 24, 2024 Team Status: Active Member Role Status Dates Dr. Navdeep Holcomb MD Primary Care Provider Active Start: August 24, 2024 Dr. Bean Crawford MD Attending Provider Active S tart: August 24, 2024 Soliciting Freight Agent Relationship Specialty Start Date End Date Navdeep Holcomb MD [address] [facility] [place], [place] [address] PCP - General Internal Medicine 07/18/20 Mary Boston, 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 [address] [facility] [place], [place] [address] Fur Comber Internal Medicine 02/15/24 [facility] [address] [place], [place] [address] Referring Gerontology 07/21/24 Navdeep Holcomb MD [address] [place] [address] Home Care Provider Internal Medicine 07/21/24 Soliciting Freight Agent Relationship Specialty Start Date End Date Navdeep Holcomb MD [address] [place] [address] PCP - General Internal Medicine 07/18/20 Mary Boston, 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 [address] [facility] [place] [address] Fur Comber Internal Medicine 02/15/24 [facility] [address] [place] [address] Referring Gerontology 07/21/24 Navdeep Holcomb MD [address] [place] [address] Home Care Provider Internal Medicine 07/21/24 Soliciting Freight Agent Relationship Specialty Start Date End Date Navdeep Holcomb MD [address] [place] [address] PCP - General Internal Medicine 07/18/20 Mary Boston, 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 [address] [facility] [place] [address] Fur Comber Internal Medicine 02/15/24 [facility] [address] [place] [address] Referring Gerontology 07/21/24 Navdeep Holcomb MD [address] [place] [address] Home Care Provider Internal Medicine 07/21/24 Soliciting Freight Agent Relationship Specialty Start Date End Date Navdeep Holcomb MD [address] [place] [address] PCP - General Internal Medicine 07/18/20 Mary Boston, 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 [address] [place] [address] Fur Comber Internal Medicine 02/15/24 [facility] [address] [place] [address] Referring Gerontology 07/21/24 Navdeep Holcomb MD [address] [place] [address] Home Care Provider Internal Medicine 07/21/24 Soliciting Freight Agent Relationship Specialty Start Date End Date Navdeep Holcomb MD [address] [place] [address] PCP - General Internal Medicine 07/18/20 Mary Boston, 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 [address] [place] [address] Fur Comber Internal Medicine 02/15/24 [facility] [address] [place] [address] Referring Gerontology 07/21/24 Navdeep Holcomb MD [address] [place], [place] [address] Home Care Provider Internal Medicine 07/21/24 Team Status: Active Member Role/Relationship Status Dates Dr. Navdeep Holcomb MD Primary Care Provider Active Team Status: Inactive Member Role/Relationship Status Dates Dr. New Bear MD Admit Provider Active Star t: July 06, 2024 End: July 22, 2024 Dr. New Bear MD Attending Provider Active Start: July 06, 2024 End: July 22, 2024 Dr. Navdeep Holcomb MD Primary Care Provider Active Start: July 06, 2024 End: July 22, 2024 Team Status: Active Member Role/Relationship Status Dates Dr. Navdeep Holcomb MD Primary Care Provider Active Start: July 08, 2024 End: July 08, 2024 Dr. Olga Galvez MD Attending Provider Active Start: July 08, 2024 End: July 08, 2024 Dr. New Bear MD Referring Provider Active Start: July 08, 2024 End: July 08, 2024 Team Status: Active Member Role/Relationship Status Dates Dr. Navdeep Holcomb MD Primary Care Provider Active Start: July 14, 2024 End: July 14, 2024 Dr. Rosalio Mena MD Attending Provider Active Start: July 14, 2024 End: July 14, 2024 Dr. New Bear MD Referring Provider Active Start: July 14, 2024 End: July 14, 2024 Team Status: Inactive Member Role/Relationship Status Dates Dr. Navdeep Holcomb MD Primary Care Provider Active Start: August 11, 2024 End: August 11, 2024 Dr. Navdeep Holcomb MD Referring Provider Active Start: August 11, 2024 End: August 11, 2024 Dr. Rosalio Mena MD Attending Provider Active Start: August 11, 2024 End: August 11, 2024 Team Status: Inactive Member Role/Relationship Status Dates Dr. Navdeep Holcomb MD Primary Care Provider Active Start: August 17, 2024 End: August 17, 2024 Dr. Rosalio Mena MD Attending Provider Active Start: August 17, 2024 End: August 17, 2024 Dr. Rosalio Mena MD Referring Provider Active Start: August 17, 2024 End: August 17, 2024 Team Status: Inactive Member Role/Relationship Status Dates Dr. Navdeep Holcomb MD Primary Care Provider Active Start: August 24, 2024 End: August 24, 2024 Dr. Rosalio Mena MD Attending Provider Active Start: August 24, 2024 End: August 24, 2024 Dr. Rosalio Mena MD Referring Provider Active Start: August 24, 2024 End: August 24, 2024 Team Status: Active Member Role/Relationship Status Dates Dr. Navdeep Holcomb MD Primary Care Provider Active Start: August 24, 2024 Dr. Bean Crawford MD Attending Provider Active S tart: August 24, 2024 Dr. Rosalio Mena MD Referring Provider Active Start: August 24, 2024 Team Status: Inactive Member Role/Relationship Status Dates Dr. Navdeep Holcomb MD Primary Care Provider Active Start: August 25, 2024 End: August 25, 2024 Dr. Enio Corcoran DO Attending Provider Activ e Start: August 25, 2024 End: August 25, 2024 Dr. Enio Corcoran DO Referring Provider Activ e Start: August 25, 2024 End: August 25, 2024 Dr. Enio Corcoran DO Emergency Provider Activ e Start: August 25, 2024 End: August 25, 2024 Team Status: Inactive Member Role/Relationship Status Dates Dr. Navdeep Holcomb MD Primary Care Provider Active Start: September 13, 2024 End: September 13, 2024 Dr. Navdeep Holcomb MD Referring Provider Active Start: September 13, 2024 End: September 13, 2024 Marsha SURESH, PA Attending Provider Active Start: September 13, 2024 End: September 13, 2024 Team Status: Active Member Role/Relationship Status Dates Dr. Navdeep Holcomb MD Primary Care Provider Active Start: September 17, 2024 Marsha Zheng PA, PA Attending Provider Active Start: September 17, 2024 Marsha hZeng PA, PA Referring Provider Active Start: September 17, 2024 Team Status: Inactive Member Role/Relationship Status Dates Dr. Navdeep Holcomb MD Primary Care Provider Active Start: September 30, 2024 End: September 30, 2024 Dr. Navdeep Holcomb MD Referring Provider Active Start: September 30, 2024 End: September 30, 2024 Dr. Rashad Turk MD Attending Provider Active Start: September 30, 2024 End: September 30, 2024 Soliciting Freight Agent Relationship Specialty Start Date End Date Navdeep Holcomb MD [address] [place] [address] PCP - General Internal Medicine 07/18/20 Mary Boston, 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 [address] [place] [address] Fur Comber Internal Medicine 02/15/24 [facility] [address] [place], [place] [address] Referring Gerontology 07/21/24 Navdeep Holcomb MD [address] [place] [address] Home Care Provider Internal Medicine 07/21/24 Soliciting Freight Agent Relationship Specialty Start Date End Date Navdeep Holcomb MD [address] [place], [place] [address] PCP - General Internal Medicine 07/18/20 Mary Boston, 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 [address] [place] [address] Fur Comber Internal Medicine 02/15/24 [facility] [address] [place] [address] Referring Gerontology 07/21/24 Navdeep Holcomb MD [address] [place] [address] Home Care Provider Internal Medicine 07/21/24 Pradip Hillman, PT [address] [facility] [place] [address] High School Combination Teacher Post Acute Care 07/22/24 08/15/24 Soliciting Freight Agent Relationship Specialty Start Date End Date Navdeep Holcomb MD [address] [facility] [place] [address] PCP - General Internal Medicine 07/18/20 Mary Boston, 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 [address] [facility] [address] Fur Comber Internal Medicine 02/15/24 [facility] [address] [place], [place] [address] Referring Gerontology 07/21/24 Navdeep Holcomb MD [address] [facility] [place] [address] Home Care Provider Internal Medicine 07/21/24 Soliciting Freight Agent Relationship Specialty Start Date End Date Navdeep Holcomb MD [address] [facility] [place] [address] PCP - General Internal Medicine 07/18/20 Mary Boston, 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 [address] [facility] [place] [address] Fur Comber Internal Medicine 02/15/24 [facility] [address] [place], [place] [address] Referring Gerontology 07/21/24 Navdeep Holcomb MD [address] [place], [place] [address] Home Care Provider Internal Medicine 07/21/24 Team Status: Inactive Member Role/Relationship Status Dates Dr. Navdeep Holcomb MD Primary Care Provider Active Start: November 02, 2024 End: November 02, 2024 Dr. Navdeep Holcomb MD Referring Provider Active Start: November 02, 2024 End: November 02, 2024 DEMETRICE Banerjee Attending Provider Active St art: November 02, 2024 End: November 02, 2024 Soliciting Freight Agent Relationship Specialty Start Date End Date Navdeep Holcomb MD [address] [place], [place] [address] PCP - General Internal Medicine 07/18/20 Mary Boston, CASINO ENFORCEMENT AGENT.[facility] [address] [place], [place] [address] Fur Comber Internal Medicine 02/15/24 [facility] [address] [address] Referring Gerontology 07/21/24 Navdeep Holcomb MD [address] [place] [address] Home Care Provider Internal Medicine 07/21/24 FOR RECORDS PERTAINING TO PATIENTS WHO ARE [...] BE BASED ON THE PRIMARY CLINICAL RECORDS. [facility], [facility]. provides no warranty or guarantee of the accuracy or completeness of information in this document.
[2024-11-17 07:56] LABS: Hematocrit 30.8 % (37-47); Hemoglobin 10.0 g/dL (12.0-15.0); Mean Corp Hgb Conc 32.5 g/dL (32-36); Mean Corpuscular Volume 92.2 fL (81-99); Mean Platelet Vol. 11.1 fl (6.2-12.0); Platelet Count 232 K/mm3 (150-450); RBC Distribution Width CV 14.4 % (11.6-14.6); RBC Distribution Width SD 48.5 fl (35.1-43.9); Red Blood Count 3.34 M/mm3 (4.2-5.4); White Blood Count 7.4 K/mm3 (4.4-11.0)
--- NOTE | 2024-11-17 09:49 | HP_ITS ---
Azalea Mott is a 74-year-old male who presents to office today for preprocedural evaluation. She has a history of atrial fibrillation that was captured on preoperative workup for hip replacement earlier this year. Echocardiogram performed demonstrated preserved ejection fraction. A Ioana can stress Myoview was negative for ischemia. Postoperatively, patient went to atrial fibrillation with RVR and was treated with diltiazem and metoprolol along with anticoagulation with apixaban. She presented to the emergency room in August 2024 with concerns of palpitations and EKG demonstrated atrial fibrillation with slow ventricular rate. Her heart rate was in the 40s. Her diltiazem was stopped and her metoprolol was decreased. PCP noted increase in her heart rate and recommend she return her metoprolol back to 100 mg twice a day. Patient reported ongoing lower heart rates. 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 She is scheduled for pacemaker placement 11/17/2024. Upon presentation today, patient reports doing well. She reports ongoing chronic shortness of breath with activity that is unchanged. She continues to follow with Ortho for right lower extremity edema status post hip surgery in June. She reports her orthopedic surgeon ordered cardiac tests that were originally sent to [facility] and she requested that orders to be sent here. She is uncertain of which test these were and why they were being done. Further ROS below. Intake Vital Signs 09/30/2513:48 11/03/2507:07 11/02/2512:20 Height 5 ft 6 in 5 ft 6 in 5 ft 6 in Weight: 212 lb 210 lb BMI 34.2 33.9 BP 112/78 125/77 H Blood Pressure Location Lt brachial Lt brachial Position Sitting Sitting Respiration 16 16 Pulse 80 74 Pulse Source Monitor Monitor Pulse Oximetry (%) 99 Oxygen Delivery Method room air Intake Visit Reasons: UPDATE H & P/KIESHA @ 1 Cooling Tower Technician Required: No Accompanied by: Significant Other Is patient in pain?: No Allergies hydrocodone Adverse Reaction (Unknown, Verified 11/02/24 13:23) Weird dreams Medications ?Medication ?Instructions ?Recorded ?Confirmed ?Type atorvastatin 10 mg tablet 10 mg PO QHS cholesterol 07/06/24 History multivitamin (Daily Multi-Vitamin 1 tab PO DAILY Supplement 07/06/2411/02 History tablet) acetaminophen 500 mg tablet 1,000 mg PO Q8 PRN pain 08/10/24 5 History ferrous sulfate 325 mg (65 mg 650 mg PO QDAY 08/10/24 11/02/24 History iron) tablet ascorbic acid (vitamin C) 500 mg 1,000 mg PO QDAY 09/13/24 11/02/24 Histo ry tablet cholecalciferol (vitamin D3) 125 250 mcg PO QDAY 09/13/24 11/02/24 Histor y mcg (5,000 unit) tablet furosemide 40 mg tablet (Lasix) 40 mg PO QDAY #180 tabs 09/13/24 5 Rx sennosides 8.6 mg-docusate sodium 1 tab-cap PO ONCE PRN 09/13/24 11/02/24 History 50 mg capsule (Senna Plus) spironolactone 25 mg tablet 25 mg PO DAILY #90 tabs 09/13/24 5 Rx apixaban 5 mg tablet (Eliquis) 5 mg PO BID 30 days #60 tabs 09/30/24 Rx metoprolol tartrate 100 mg tablet 100 mg PO BID #180 tabs 09/30/24 5 Rx meloxicam 7.5 mg tablet 7.5 mg PO QDAY 11/02/24 11/02/24 History Have you fallen in the past year?: No PFSH Medical History Tachy-radha syndrome RBBB Essential (primary) hypertension Atrial fibrillation with RVR Obstructive sleep apnea Hypertensive urgency COVID-19 Hearing loss, left Non-smoker CPAP (continuous positive airway pressure) dependence Chest pain Surgical History Status post right hip replacement History of adenoidectomy History of total right hip arthroplasty History of colonoscopy History of tonsillectomy History of left mastoidectomy History of laparoscopy History of hysteroscopy History of laparoscopic cholecystectomy S/P tubal ligation Family History Mother Hypertension Asthma Diabetes COPD (chronic obstructive pulmonary disease) Crohn's disease Father , at 82. Non-Hodgkin lymphoma CHF (congestive heart failure) CVA (cerebral vascular accident) Sister CHF (congestive heart failure) Sister Diabetes Sister Hypertension Sister Fibromyalgia Sister Kidney disease Social History household members: spouse current occupational status: retired Smoking Status: Never smoker alcohol intake: never substance use type: does not use ROS Const Const: Negative for fatigue, weakness, headache(s) or frequent falls Eyes Eyes: Negative for blurry vision ENT ENT: Negative for headache(s), dizziness or Nosebleed/epistaxis Cardio Chest Pain: No Palpitations: No Edema: Right (Hip surgery in June. Still swelling from that. ) and None Muscle aches with walking: None Resp Respiratory: Positive for SOB with activity; Negative for SOB at rest or SOB orthopnea\SOB lying down GI GI: Negative nausea, vomiting, heartburn, bright, red blood in stools or black,tarry stools : Negative for hematuria Neuro Neuro: Negative for dizziness, lightheadedness, near syncope, syncope, frequent falls, headache(s), weakness or blurry vision Endo Endo: Negative for fatigue Cardiology Exam Const Appearance: cooperative, comfortable, no acute distress and well developed; Negative diaphoretic or ill appearing Nutritional Appearance: obese Orientation: alert and oriented x3 Ambulating without assistive device Head Head: normal to inspection, normocephalic and atraumatic Ears: hearing grossly normal bilaterally Nose: external nose normal and Negative epistaxis Face and Sinus: face symmetric Eyes General: appearance normal, both eyes and all related structures Eyelids: eyelids normal Conjunctivae: conjunctivae normal; Negative scleral icterus EOM: EOM intact bilaterally Neck Neck: no JVD Carotids: normal carotid upstroke; Negative bruit Neck Mass: Negative Neck mass Chest Chest inspection: normal respiratory effort; Negative respiratory distress, audible wheezes or tachypneic Auscultation: Bilateral: Clear to Auscultation Cardio Rate: regular rate Rhythm: regular rhythm Heart sounds: S1 normal and S2 normal; Negative rub, gallop or murmur GI GI: obese Neuro General: patient alert, patient awake, patient oriented x3 and moves all extremities Extremities Pulses: Normal: Right Posterior Tibial Pulse, Left Posterior Tibial Pulse, Right Radial Pulse and Left Radial Pulse Lower Extremity Edema: None: Bilateral Right lower extremity wrapped with Rony bandage Psych Psychological: normal affect Supplemental Info Supplemental Information Echocardiogram 06/23/2024: CONCLUSIONS: - Exam indication: a-fib - The left ventricle is normal in size. Left ventricular systolic function is normal. EF = 63 ? 5% (2D biplane) Grade II left ventricular diastolic dysfunction. - The right ventricle is normal in size. Right ventricular systolic function is normal. - There is mild (1+) tricuspid regurgitation. - The patient has not had a prior CC echocardiographic exam for comparison. Stress Test 06/23/2024: CONCLUSIONS: 1. SPECT Perfusion Study: Normal. 2. There is no scintigraphic evidence for inducible ischemia. 3. No evidence of scarred myocardium. 4. Left ventricle is normal in size. The left ventricle systolic function is hyperdynamic. 5. This is a low risk scan. Stress ECG Conclusion: Conclusion: Normal Labs: HDL Cholesterol 27 mg/dL (40-) L Cholesterol 93 mg/dL (<=200) Triglycerides 82 mg/dL (-199) Diagnostics: Electrocardiogram Chest X-Ray Abdomen/Pelvis CT Venous Doppler Study Pulmonary: No Data to Display Past Visits: Cardiology Visit 11/02/24 Assessment and Plan Assessment and Plan (1) Tachy-radha syndrome: Status: Acute Plan: Patient was diagnosed with atrial fibrillation earlier this year during preoperative testing. She experienced atrial fibrillation with RVR postoperatively and was managed with diltiazem and metoprolol. However, she was noted to have atrial fibrillation with slow ventricular response rate into her diltiazem was discontinued and metoprolol was decreased followed by experiencing tachycardia in which her metoprolol was then increased. She noted ongoing low heart rates captured at home. Last she was assessed by EP in September. She was planning to undergo pacemaker placement 11/17/2024. Plan: Will obtain preprocedural imaging and lab work today along with checking urine. EKG in office today completed demonstrating atrial flutter at a rate of 82 bpm. She met with pacemaker nurse today and reviewed all preprocedural instructions. She will schedule postop wound check. (2) Paroxysmal atrial fibrillation: Status: Chronic Plan: Patient has a history of paroxysmal atrial fibrillation initially diagnosed on preoperative testing earlier this year. She was initially managed with diltiazem and metoprolol after experienced A-fib with RVR postoperatively. However, she was noted to then have atrial fibrillation with slow ventricular response rate and her diltiazem was discontinued and metoprolol was decreased. This was followed by tachycardia in which her metoprolol was increased. She noted ongoing lower heart rates. She met with EP and is planning for pacemaker placement 11/17/2024. She does have a [id number] score of 3. Plan: Patient will continue current medical management. Recommend she continue with anticoagulant apixaban 5 mg twice daily. Recommend continuing metoprolol tartrate at this time. (3) Hypertension: Status: Chronic Qualifiers: Hypertension type: primary hypertension Qualified Code(s): I10 - Essential (primary) hypertension Plan: Patient has a history of hypertension. BP well-controlled today 125/77. Plan: Recommend patient continue antihypertensive agents including metoprolol tartrate, spironolactone and furosemide. Encourage lifestyle and risk factor modifications. (4) Hyperlipidemia, unspecified: Status: Chronic Qualifiers: Hyperlipidemia type: unspecified Qualified Code(s): E78.5 - Hyperlipidemia, unspecified Plan: Patient has a history of hyperlipidemia. Most recent lipid panel 07/09/2024 demonstrates total cholesterol 93, triglyceride 82, LDL 49 and HDL 27. Plan: Recommend patient continue current medical management. Encourage lifestyle risk factor modification. Orders: Orders 12 Lead EKG performed by BMS Today I49.5 - Sick sinus syndrome Plan 1. Will have patient complete preprocedural lab work, UA and imaging today. Patient will follow-up in 6 weeks or sooner, if needed. Thank you for allowing me to participate in the care of your patient. Please don't hesitate to call if any issues arise. This note was generated using a voice recognition system and there may be incorrect words, spelling, or punctuation that were not noted when reviewing the office note prior to saving. Portions of this documentation were copied and pasted from previous office visit notes to provide a cohesive continuity of the history. The note has been reviewed, edited, and updated, as necessary. Plan Details Follow Up: 11/02/24 (Please obtain office visit note from ortho Dr Bergeron) 11/02/24 (keep as is with MMM) Coding Level of Care Code Off vis,est,level 3 Diagnoses Tachy-radha syndrome I49.5 Paroxysmal atrial fibrillation I48.0 Primary hypertension I10 Hypertension type: primary hypertension Hyperlipidemia, unspecified hyperlipidemia type E78.5 Hyperlipidemia type: unspecified Coding Level of Care Code Off vis,est,level 3 Diagnoses Tachy-radha syndrome I49.5 Paroxysmal atrial fibrillation I48.0 Primary hypertension I10 Hypertension type: primary hypertension Hyperlipidemia, unspecified hyperlipidemia type E78.5 Hyperlipidemia type: unspecified Clinical Quality Measures Falls Risk Screening/Assistive Devices Have you fallen in the past year?: No
--- NOTE | 2024-11-17 11:29 | EX.PACEMAKER ---
Pacemaker Procedure Note Pacemaker Procedure Note Procedure: Successful dual-chamber permanent pacemaker implantation with left bundle lead. Indication: Symptomatic bradycardia Findings: The patient was brought to the EP LAB in the fasting well-hydrated state and prepped and draped in the usual sterile fashion. Local anesthesia with 2% lidocaine was used to achieve a numbing effect in the left pectoral region. In addition, conscious sedation with iv versed/morphine was administered. I was present with the patient for the duration of moderate sedation and supervised staff who had no other duties and monitored the patient for the entire procedure. Details of monitoring are stored in laboratory flow sheet. An incision was made 2 fingerbreadths below the left clavicle and a pocket was made by blunt dissection. Bleeding vessels were coagulated using electrocautery. Using modified Seldinger technique, two guidewires was placed into the left axillary vein down to the low RA. Over a guidewire, a Safe Sheath was advanced a HIS-bundle sheath over a J-wire down to the low RA, the J-wire removed, and the HIS/LBB lead was advanced to just exit from the sheath. While recording bipolar from the HIS/LBB lead, the HIS sheath was used to steer the lead under fluoroscopy to the HIS location, then advanced further distal to the basal RV septum. Then, unipolar pacing was performed from this lead looking for a LBBB pattern with notching of the downstroke of the S wave. When this site was located, fluoroscopy was moved to MONGOLIAN view to confirm the septal direction of the lead, then returned to GARCIA position. Then, while pacing unipolar, the RV lead was rotated clockwise until the LBBB morphology changed to a RBBB morphology. The HIS Sheath and Safe Sheaths were peeled away. Next using the second guidewire a introducer sheath was placed into the central circulation. Through the venous sheath an active-fixation right atrial lead was passed in the right atrium the active screw mechanism was deployed and the lead was attached to the myocardium. Adequate pacing and sensing thresholds were measured. Diaphragmatic stimulation was excluded with high output pacing. The introducer sheath was peeled away. The leads were secured in the pocket using 0-Ethibond with initial suture tie made to the pectoralis muscle and fascia, followed by wrapping around and tying securely to the lead sleeves. In addition, a purse string suture was tied around the leads entry site with 2-0 Vicryl for hemostasis. The leads were connected to the biventricular pacemaker pulse generator. The pocket was irrigated with antibiotic solution. The pulse generator was placed into the pocket with redundant lead allowed to form a albertina coil behind the pulse generator. The device header was secured in place with a leash using a nonabsorbable suture. The pocket was closed in 2 layers with 2-0 and 3-0 Vicryl for the subcutaneous and subcuticular layers respectively. Hemostasis was achieved with manual pressure. Upon closure no bleeding was noted. A sterile dressing was applied. The patient was recovered and sent to their room in stable condition. Complications: none. Specimens: none. Estimated blood loss: 10mL.
--- NOTE | 2024-11-17 12:30 | RAD_ITS ---
PROCEDURE: CHEST 1 VIEW (PORTABLE) 11/17/2024 REASON FOR EXAM: DO WITHIN 2-4 HOURS OF PROCEDURE TECHNIQUE: Frontal view of the chest. COMPARISON: PA and lateral chest 11/02/2024 RAD/Chest 1 View (Portable) IMPRESSION: Interval placement of a left thoracic transvenous pacemaker with atrial and keren tricular leads. No pneumothorax is noted. The cardiomediastinal silhouette is stable, without evidence of cardiomegaly. Lungs appear clear of acute disease, and unchanged. No pleural effusion is seen. No acute osseous process is evident. Reading Location: [place] [id number]
[2024-11-17] MEDS: Cefazolin 2 GM in 0.9% Normal Saline (100mL Bag) 100 ML IV (17:49)
[2024-11-18 03:00] VITALS: PULSE 92
[2024-11-18 05:19] VITALS: BP 100/60; PULSE 90; RESP 17; TEMP 36.8; O2SAT 99
--- NOTE | 2024-11-18 05:27 | RAD_ITS ---
PROCEDURE: CHEST 3 VIEW 11/18/2024 REASON FOR EXAM: POST PERMANENT ICD/PACEMAKER TECHNIQUE: Procedure Code: RADCXRPALATOB Modality: DX Procedure: CHEST 3 VIEW COMPARISON: Chest radiograph on 11/17/2024. FINDINGS: AICD is in good position. The lungs are expanded. There is no demonstrated parenchymal abnormality. There is no demonstrated pleural abnormality. Enlarged cardiac silhouette. Normal mediastinum and lali. Normal visualized pulmonary arteries. Atheromatous plaques of the visualized aortic arch and descending thoracic aorta. Diffuse spondylosis of the visualized thoracic spine. Normal visualized ribs, clavicles. Degenerative joint disease. There is no demonstrated abnormality of the visualized soft tissue structures of the upper abdomen. RAD/Chest 3 View IMPRESSION: AICD is in good position. Unchanged cardiomegaly. No radiographic evidence of an acute pulmonary pathology. Reading [facility] [address]
[2024-11-18 09:14] VITALS: BP 109/60; PULSE 95; RESP 16; TEMP 36.4; O2SAT 95
[2024-11-18 09:16] VITALS: PULSE 95
[2024-11-18] MEDS: Cholecalciferol (Vit D3) 125 MCG CAPSULE (5,000 UNITS) 250 MCG PO (09:16)
--- NOTE | 2024-11-18 10:15 | DCINST_ITS ---
Discharge Instructions DC O2, CPAP, BIPAP needs Home O2 Discharge instructions: No Dressing / Incision Additional Activity Instructions:: Follow the instructions that Valeria gave you for your pacemaker placement. Dressing / Incision Additional Dressing/Incision Instructions:: Keep your appointment with Valeria that was scheduled for November 24. Follow Up Care Test Results: Test results from this visit will be discussed in further detail at your follow- up appointment, if applicable. Discharge Plan Admission Admit Date/Time: 11/17/24 09:49 Attending Provider: Rashad Turk Primary Care Provider: Navdeep Ulloa Discharge Orders/Prescriptions Prescriptions: Continued acetaminophen 500 mg tablet 1,000 mg PO Q8 PRN (Reason: pain) ferrous sulfate 325 mg (65 mg iron) tablet 650 mg PO QDAY ascorbic acid (vitamin C) 500 mg tablet 1,000 mg PO QDAY cholecalciferol (vitamin D3) 125 mcg (5,000 unit) tablet 250 mcg PO QDAY Senna Plus 8.6-50 mg capsule 1 tab-cap PO ONCE PRN (Reason: constipation) furosemide [Lasix] 40 mg tablet 40 mg PO QDAY Qty: 180 3RF spironolactone 25 mg tablet 25 mg PO DAILY Qty: 90 3RF Eliquis 5 mg tablet 5 mg PO BID 30 Days Qty: 60 11RF metoprolol tartrate 100 mg tablet 100 mg PO BID Qty: 180 3RF meloxicam 7.5 mg tablet 7.5 mg PO QDAY atorvastatin 10 mg tablet 10 mg PO QHS multivitamin [Daily Multi-Vitamin] Tablet 1 tab PO DAILY Referrals / Follow Up: Navdeep Ulloa MD [Primary Care Provider] - Disposition Disposition (needs filled in before D/C Order can be placed): Home, Self Care
--- NOTE | 2024-11-18 10:47 | CASEMGMT ---
[facility] Met with patient to complete OWENS form. OWENS form and its content were verbally explained and patient's questions were answered to the best of my ability.? Patient voiced understanding and signed OWENS form.? Patient provided a copy of signed OWENS form and original placed in patient's chart.? Patient had no further questions. Marci Narayan, Discharge Planning Asst
--- NOTE | 2024-11-18 10:55 | PHA.DC.MR.R ---
Pharmacy [place] Med Reconciliation Pharmacy Service has performed discharge medication reconciliation for this patient. The patient's discharge medication list was reviewed for discrepancies and discrepancies were resolved. - No new medications at this time. Medications at Discharge Home Medications atorvastatin 10 mg tablet 10 mg PO QHS cholesterol 07/06/24 multivitamin (Daily Multi-Vitamin tablet) 1 tab PO DAILY Supplement 07/06/24 acetaminophen 500 mg tablet 1,000 mg PO Q8 PRN pain 08/10/24 ferrous sulfate 325 mg (65 mg iron) tablet 650 mg PO QDAY 08/10/24 ascorbic acid (vitamin C) 500 mg tablet 1,000 mg PO QDAY 09/13/24 cholecalciferol (vitamin D3) 125 mcg (5,000 unit) tablet 250 mcg PO QDAY 09/13/24 furosemide 40 mg tablet (Lasix) 40 mg PO QDAY #180 tabs 09/13/24 sennosides 8.6 mg-docusate sodium 50 mg capsule (Senna Plus) 1 tab-cap PO ONCE PRN constipation 09/13/24 spironolactone 25 mg tablet 25 mg PO DAILY #90 tabs 09/13/24 apixaban 5 mg tablet (Eliquis) 5 mg PO BID 30 days #60 tabs 09/30/24 metoprolol tartrate 100 mg tablet 100 mg PO BID #180 tabs 09/30/24 meloxicam 7.5 mg tablet 7.5 mg PO QDAY 11/02/24
--- NOTE | 2024-11-18 11:07 | CASEMGMT ---
Patient has order for discharge. RN CM in to discuss needs at discharge, at bedside. Patient denies needs or help at discharge. Patient had no further questions or concerns.
== END 2024-11-18 11:41 | disposition home or self-care (01) ==
LOC: PCU 10:13
PROVIDERS: Physician Assistant Medical; Admitting Provider Internal Medicine Clinical Cardiac Electrophysiology; PCP Internal Medicine; Referring Provider Internal Medicine Clinical Cardiac Electrophysiology; Visit Provider Internal Medicine Clinical Cardiac Electrophysiology
DX: Z45.018 Encounter for adjustment and management of other part of cardiac pacemaker (principal); I48.0 Paroxysmal atrial fibrillation; I49.5 Sick sinus syndrome; G47.33 Obstructive sleep apnea (adult) (pediatric); I10 Essential (primary) hypertension; Z79.899 Other long term (current) drug therapy; Z79.01 Long term (current) use of anticoagulants; R06.02 Shortness of breath; R60.0 Localized edema; E78.5 Hyperlipidemia, unspecified
CPT/HCPCS: 33208; 36415; 71045; 71046; 71047; 80048; 81001; 85027; 85610; 96365; 99152; 99153; 99221; C1894; A4216; C1769; G0378

== ENCOUNTER → 2024-12-29 | Outpatient (CLI) | payer MEDICARE, OTHER, SELFPAY ==
[2024-12-29 14:31] LABS: Hematocrit 33.9 % (37-47); Hemoglobin 11.3 g/dL (12.0-15.0); Immature Granulocytes Count 0.020 X10^3/uL (0.0-0.0); Mean Corp Hgb Conc 33.3 g/dL (32-36); Mean Corpuscular Volume 90.6 fL (81-99); Mean Platelet Vol. 10.7 fl (6.2-12.0); NRBC Flagged by Analyzer 0 % (0-5); Platelet Count 230 K/mm3 (150-450); RBC Distribution Width CV 12.1 % (11.6-14.6); RBC Distribution Width SD 40.4 fl (35.1-43.9); Red Blood Count 3.74 M/mm3 (4.2-5.4); White Blood Count 8.7 K/mm3 (4.4-11.0)
[2024-12-29 15:19] LABS: Anion Gap 9 (5-15); BUN 20 mg/dL (4-19); BUN/Creat Ratio 17.6 RATIO (10-20); Calcium,Total 9.7 mg/dL (7.6-11.0); Carbon Dioxide 31.2 mmol/L (21.0-32.0); Chloride 100 mmol/L (98-108); Glucose 160 mg/dL (70-99); Potassium 4.4 mmol/L (3.3-5.1)
== END | disposition home or self-care (01) ==
LOC: LAB 13:42
PROVIDERS: PCP Internal Medicine; Referring Provider Physician Assistant Medical; Visit Provider Physician Assistant Medical
DX: I48.0 Paroxysmal atrial fibrillation (principal); D72.829 Elevated white blood cell count, unspecified
CPT/HCPCS: 36415; 80048; 85025